=== PATIENT | male | born 1940 | race Caucasian/White ===

== ENCOUNTER → 2018-02-26 | Outpatient (CLI) | payer MEDICARE ==
--- NOTE | 2018-03-02 16:10 | RADIOLOGY REPORT ---
NAME: [facility] REC#: [id number] PT STATUS: REG CLI : 1940 PHYSICIAN: LUPE WHITING MD ADMIT DATE: 02/26/18/RAD CORRECTED Signed Date of Exam:02/26/18 US VENOUS LOWER EXT RT PROCEDURE: US right lower extremity venous. TECHNIQUE: Multiple Real-time grayscale images were obtained over the right lower extremity in various projections. Additional duplex Doppler and color Doppler images were also obtained. INDICATION: Positive D-dimer and right lower extremity swelling. FINDINGS: There is no evidence of a right lower extremity DVT. The right lower extremity deep venous system demonstrates normal compressibility with normal response to augmentation and Valsalva. No fluid collection or mass is seen. IMPRESSION: No evidence of right lower extremity DVT. Dictated by: Dictated on workstation # [id number] Dict: 02/26/18 1210 Trans: 02/26/18 1547 [id number] Interpreted by: MARINO MONTES DE OCA MD Electronically signed by: MARINO MONTES DE OCA MD 02/26/18 1547 [facility]
== END ==
LOC: RAD 11:18
PROVIDERS: ATTEND Family Medicine
DX: R22.41 Localized swelling, mass and lump, right lower limb (principal); R79.1 Abnormal coagulation profile

== ENCOUNTER 2018-07-09 13:44 | Outpatient (RCR) | payer MEDICARE | END 2018-08-02 | disposition home or self-care (01) | LOC: DSME 13:44 | PROVIDERS: ATTEND Internal Medicine Endocrinology, Diabetes & Metabolism | DX: E11.65 Type 2 diabetes mellitus with hyperglycemia (principal) ==

== ENCOUNTER 2018-08-09 10:38 | Emergency (ER) | payer MEDICARE ==
[~2018-08-09] VITALS: Ht 175.3 cm; Wt 117.9 kg
--- OUTSIDE RECORDS SUMMARY | 2018-08-09 10:43 | XMS REPORT ---
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 Name Role Phone KESHIA MARSHALL Unavailable PROBLEMS Unknown Problems ALLERGIES Substance Reaction Event Type Date Status Sulfacetamide Sodium Unknown Drug Allergy Oct, Active ENCOUNTERS Encounter Location Date Diagnosis [facility]ALK IN [facility] [address] [facility] [id number] [address] Oct, Cough R05 ; Pneumonia of right lower lobe due to infectious organism J18.1 and BMI 40.0-44.9, adult Z68.41 IMMUNIZATIONS No Known Immunizations SOCIAL HISTORY Never Assessed REASON FOR VISIT Cold symptoms- productive clear cough, head/chest congestion, and clear nasal drainage x 1 week. KBoleRN PLAN OF CARE Activity Details Follow Up prn Reason: VITAL SIGNS Height 66 in 2017-10-14 Weight 264.4 lbs 2017-10-14 Temperature 98.6 degrees Fahrenheit 2017-10-14 Heart Rate 108 bpm 2017-10-14 Respiratory Rate 20 2017-10-14 BMI 42.67 kg/m2 2017-10-14 Blood pressure systolic 158 mmHg 2017-10-14 Blood pressure diastolic 82 mmHg 2017-10-14 MEDICATIONS Medication Instructions Dosage Frequency Start Date End Date Duration Status Azithromycin 250 MG Orally Once a day 2 tablets on the first day, then 1 tablet daily for 4 days 24h Oct, Oct, 5 day(s) Active ProAir HFA 108 (90 Base) MCG/ACT Inhalation every 6 hrs 2 puffs as needed 6h Oct, 5 days Active Tessalon Perles 100 MG Orally Three times a day 1 capsule as needed 8h Oct, Oct, 10 days Active Lasix 20 MG Orally Once a day 1 tablet 24h Active Toprol XL 100 MG Orally Once a day 1 tablet 24h Active Spironolactone 25 MG Orally Once a day 1 tablet with food 24h Active Levemir Flexpen 100 UNIT/ML Active RESULTS Name Result Date Reference Range Xray : Chest (IN HOUSE) 2017-10-14 PROCEDURES Procedure Date Ordered Result Body Site CHEST X-RAY Oct 14, 2017 FOR[facility] VISIT NEW PATIENT Oct 14, 2017 INSTRUCTIONS MEDICATIONS ADMINISTERED No Known Medications MEDICAL (GENERAL) HISTORY Type Description Date Medical History hypertension Medical History type II diabetes Hospitalization History hypertension
[2018-08-09 11:18] LABS: BILIRUBIN,URINE NEGATIVE (NEGATIVE); CLARITY,URINE CLEAR; COLOR,URINE YELLOW; GLUCOSE, URINE (UA) NEGATIVE (NEGATIVE); KETONES,URINE NEGATIVE (NEGATIVE); LEUKOCYTE ESTERASE ,URINE 2+ (NEGATIVE); NITRITE,URINE NEGATIVE (NEGATIVE); PH,URINE 6 (5-9); PROTEIN,URINE 2+ (NEGATIVE); UROBILINOGEN,URINE NORMAL (NORMAL)
[2018-08-09 11:23] LABS: BACTERIA,URINE TRACE /HPF
[2018-08-09 11:36] LABS: BASOPHILS % (AUTO) 0 % (0-10); EOSINOPHILS # (AUTO) 0.2 10^3/uL (0.0-0.3); EOSINOPHILS % (AUTO) 2 % (0-10); HEMATOCRIT 45 % (40-54); HEMOGLOBIN 15.1 G/DL (13.3-17.7); LYMPHOCYTES # (AUTO) 1.8 X 10^3 (1.0-4.0); LYMPHOCYTES % (AUTO) 23 % (12-44); MEAN CORPUSCULAR HEMOGLOBIN 30 PG (25-34); MEAN CORPUSCULAR HGB CONC 33 G/DL (32-36); MEAN CORPUSCULAR VOLUME 89 FL (80-99); MEAN PLATELET VOLUME 10.1 FL (7.4-10.4); MONOCYTES % (AUTO) 12 % (0-12); NEUTROPHILS # (AUTO) 4.9 X 10^3 (1.8-7.8); NEUTROPHILS % (AUTO) 62 % (42-75); PLATELET COUNT 258 10^3/uL (130-400); RED BLOOD COUNT 5.07 10^6/uL (4.35-5.85); RED CELL DISTRIBUTION WIDTH 13.8 % (10.0-14.5); WHITE BLOOD COUNT 7.8 10^3/uL (4.3-11.0)
[2018-08-09 11:58] LABS: ALBUMIN 3.7 GM/DL (3.2-4.5); BILIRUBIN,TOTAL 0.5 MG/DL (0.1-1.0); CREATININE SERUM 1.65 MG/DL (0.60-1.30); POTASSIUM 3.9 MMOL/L (3.6-5.0); TOTAL PROTEIN 7.6 GM/DL (6.4-8.2)
--- NOTE | 2018-08-09 12:52 | ED General ---
General Chief Complaint: Glucose Problems Stated Complaint: GLUCOSE LEVEL LOW Nursing Triage Note: Pt c/o glucose problems this am. Pt states pt took 20 units of insulin this am and didn't eat enough breakfast. Pt states pt ate toast and oatmeal for breakfast. Pt then ate two donuts and ate ice cream and c/o blood sugar dropping. Tech took BS in waiting room. BS was 102 at that time. Pt's BS during assessment was 118. Nursing Sepsis Screen: No Definite Risk Source of Information: Patient Exam Limitations: No Limitations History of Present Illness Date Seen by Provider: Aug 09, 2018 Time Seen by Provider: 11:10 Initial Comments Patient is a 77-year-old male who presents to the emergency room with complaints of low blood sugars this morning. He is asymptomatic with his hypoglycemia. He took his normal dose of 20 units of insulin this a.m. and thinks he did not eat enough breakfast. Patient reports eating toast, oatmeal, ice cream, donuts and in an attempt to keep his blood sugars form dropping. Blood glucose was 102 on arrival to ED. Timing/Duration: 1-3 Hours Associated Systoms: Denies Symptoms Allergies and Home Medications Allergies Uncoded Allergies: SULFA (Allergy, Unknown, 08/09/18) Patient Home Medication List Home Medication List Reviewed: Yes Review of Systems Review of Systems Constitutional: see HPI; No chills, No fever Hematologic/Lymphatic: See HPI, Other (low blood sugars.) All Other Systems Reviewed Negative Unless Noted: Yes Past Mtlilvk-Fnaooy-Gfiqtu Hx Past Med/Social Hx: Reviewed Nursing Past Med/Soc Hx Patient Social History Alcohol Use: Denies Use Recreational Drug Use: No Recent Foreign Travel: No Contact w/Someone Who Travel: No Recent Infectious Disease Expo: No Recent Hopitalizations: No Physical Abuse: No Sexual Abuse: No Seasonal Allergies Seasonal Allergies: No Past Medical History Respiratory: No Cardiac: No Neurological: No Genitourinary: No Gastrointestinal: No Musculoskeletal: No Endocrine: Yes Diabetes, Insulin dep HEENT: No Cancer: No Psychosocial: No Integumentary: No Blood Disorders: No Family Medical History Reviewed Nursing Family Hx Physical Exam Vital Signs Vital Signs - First Documented 08/09/18 11:03 Temp 98.2 Pulse 91 Resp 18 B/P (MAP) 170/84 (112) Pulse Ox 95 O2 Delivery Room Air Capillary Refill : Less Than 3 Seconds Height, Weight, BMI Height: 5'9.00" Weight: 260lbs. oz. 117.427660ow; BMI Method:Stated General Appearance: No Apparent Distress, WD/WN Eyes: Bilateral Eye Normal Inspection, Bilateral Eye PERRL, Bilateral Eye EOMI HEENT: PERRL/EOMI, TMs Normal, Normal ENT Inspection, Pharynx Normal Neck: Full Range of Motion, Normal Inspection, Non Tender, Supple, Carotid Bruit Respiratory: Chest Non Tender, Lungs Clear, Normal Breath Sounds, No Accessory Muscle Use, No Respiratory Distress Cardiovascular: Regular Rate, Rhythm, No Edema, No Gallop, No JVD, No Murmur, Normal Peripheral Pulses Neurologic/Psychiatric: Alert, Oriented x3, Normal Mood/Affect Skin: Normal Color, Warm/Dry Progress/Results/Core Measures Suspected Sepsis Recent Fever Within 48 Hours: No Infection Criteria Present: None New/Unexplained Altered Menta: No Sepsis Screen: No Definite Risk SIRS Temperature:98.2 Pulse: 91 Respiratory Rate: 18 Laboratory Tests 08/09/18 11:25: White Blood Count 7.8 Blood Pressure 170 /84 Mean: 112 Laboratory Tests 08/09/18 11:25: Creatinine 1.65H, Platelet Count 258, Total Bilirubin 0.5 Results/Orders Lab Results Laboratory Tests Test 08/09/18 10:46 08/09/18 11:04 08/09/18 11:13 08/09/18 11:25 Range/Units Glucometer 102 118 H 70-110 MG/DL Urine Color YELLOW Urine Clarity CLEAR Urine pH 6 5-9 Urine Specific [place] 1.015 L 1.016-1.022 Urine Protein 2+ H NEGATIVE Urine Glucose (UA) NEGATIVE NEGATIVE Urine Ketones NEGATIVE NEGATIVE Urine Nitrite NEGATIVE NEGATIVE Urine Bilirubin NEGATIVE NEGATIVE Urine Urobilinogen NORMAL NORMAL MG/DL Urine Leukocyte Esterase 2+ H NEGATIVE Urine RBC (Auto) 2+ H NEGATIVE Urine RBC NONE /HPF Urine WBC 2-5 /HPF Urine Squamous Epithelial Cells 2-5 /HPF Urine Crystals NONE /LPF Urine Bacteria TRACE /HPF Urine Casts NONE /LPF Urine Mucus NEGATIVE /LPF Urine Culture Indicated NO White Blood Count 7.8 4.3-11.0 10^3/uL Red Blood Count 5.07 4.35-5.85 10^6/uL Hemoglobin 15.1 13.3-17.7 G/DL Hematocrit 45 40-54 % Mean Corpuscular Volume 89 80-99 FL Mean Corpuscular Hemoglobin 30 25-34 PG Mean Corpuscular Hemoglobin Concent 33 32-36 G/DL Red Cell Distribution Width 13.8 10.0-14.5 % Platelet Count 258 130-400 10^3/uL Mean Platelet Volume 10.1 7.4-10.4 FL Neutrophils (%) (Auto) 62 42-75 % Lymphocytes (%) (Auto) 23 12-44 % Monocytes (%) (Auto) 12 0-12 % Eosinophils (%) (Auto) 2 0-10 % Basophils (%) (Auto) 0 0-10 % Neutrophils # (Auto) 4.9 1.8-7.8 X 10^3 Lymphocytes # (Auto) 1.8 1.0-4.0 X 10^3 Monocytes # (Auto) 1.0 0.0-1.0 X 10^3 Eosinophils # (Auto) 0.2 0.0-0.3 10^3/uL Basophils # (Auto) 0.0 0.0-0.1 10^3/uL Sodium Level 140 135-145 MMOL/L Potassium Level 3.9 3.6-5.0 MMOL/L Chloride Level 107 98-107 MMOL/L Carbon Dioxide Level 22 21-32 MMOL/L Anion Gap 11 5-14 MMOL/L Blood Urea Nitrogen 22 H 7-18 MG/DL Creatinine 1.65 H 0.60-1.30 MG/DL Estimat Glomerular Filtration Rate 40 BUN/Creatinine Ratio 13 Glucose Level 115 H 70-105 MG/DL Calcium Level 9.0 8.5-10.1 MG/DL Corrected Calcium 9.2 8.5-10.1 MG/DL Total Bilirubin 0.5 0.1-1.0 MG/DL Aspartate Amino Transf (AST/SGOT) 21 5-34 U/L Alanine Aminotransferase (ALT/SGPT) 23 0-55 U/L Alkaline Phosphatase 79 40-136 U/L Total Protein 7.6 6.4-8.2 GM/DL Albumin 3.7 3.2-4.5 GM/DL Test 08/09/18 12:50 Range/Units Glucometer 115 H 70-110 MG/DL My Orders Orders - PATRICK ALVAREZ Comprehensive Metabolic Panel (08/09/18 11:12) Saline Lock/Iv-Start (08/09/18 11:12) Cbc With Automated Diff (08/09/18 11:12) General/Regular (08/09/18 Breakfast) Vital Signs/I&O 08/09/18 12:56 Temp 98.5 Pulse 91 Resp 18 B/P (MAP) 136/73 (94) Pulse Ox 94 O2 Delivery Room Air Capillary Refill : Less Than 3 Seconds Blood Pressure Mean: 112 Progress Note : Time: 12:50 Progress Note I have seen and evaluated the patient. I have informed him of normal laboratory findings. He was given a meal of high protein and instructed to eat meals with higher protein content and less carbohydrates. He is blood glucose is 115 currently and he remains asymptomatic. He agrees with plan of care, plans for discharge, return precautions were given. Departure Impression Primary Impression: Poorly controlled diabetes mellitus Disposition: HOME, SELF-CARE Condition: Stable/Unchanged Departure-Patient Inst. Decision time for Depature: 12:51 Referrals: LUPE WHITING MD (PCP) Primary Care Physician Patient Instructions: Diabetic Meal Planning Add. Discharge Instructions: Keep an eye on your blood sugars throughout the day and only take half of your lunchtime dose of insulin. Follow-up with your primary care provider within 1 week for recheck. Return back to the emergency room for any worsening symptoms or concerns as needed. All discharge instructions reviewed with patient and/or family. Voiced understanding. PATRICK ALVAREZ Aug 09, 2018 12:52
[2018-08-09 12:56] VITALS: BP 136/73
== END 2018-08-09 12:57 | disposition home or self-care (01) ==
LOC: EDUNIT# 10:38 → ER 10:40
DX: E11.649 Type 2 diabetes mellitus with hypoglycemia without coma (principal); Z88.2 Allergy status to sulfonamides
CPT/HCPCS: 36415; 80053; 81000; 82962; 85025

== ENCOUNTER 2018-10-01 06:00 | Outpatient (RCR) | payer MEDICARE | END 2018-10-07 | disposition home or self-care (01) | LOC: CR3 06:00 | PROVIDERS: ATTEND Family Medicine | DX: Z29.8 Encounter for other specified prophylactic measures (principal) ==

== ENCOUNTER 2018-10-15 14:43 | Emergency (ER) | payer MEDICARE ==
[~2018-10-15] VITALS: Ht 175.3 cm; Wt 117.9 kg
--- NOTE | 2018-10-15 15:00 | ED General ---
General Chief Complaint: Glucose Problems Stated Complaint: TOO MUCH INSULIN Nursing Triage Note: AMB TO ROOM THINKS MAY OF TAKEN T MUCH INSULIN FEELING OK ON ADMIT TO ROOM. TOOK EXTERA INSULIN TO GET BS DOWN BELOW 200 Nursing Sepsis Screen: No Definite Risk Source of Information: Patient Exam Limitations: No Limitations History of Present Illness Date Seen by Provider: Oct 15, 2018 Time Seen by Provider: 14:57 Initial Comments To ER with concerns of insulin overdose. He states that in today his blood sugar was "sticking around 300". He was trying to get it below 200. He initially took 15 units of NovoLog insulin at about noon. A piece of pizza, blood sugar did not go down. 30 minutes later roughly took 30 units. Blood sugar still did not go down so about an hour later at about 1-2 p.m. he took an additional 50 units of NovoLog insulin. He also takes Levemir 50 units at at bedtime. He follows with Dr. Lama in [place] from endocrinology. On arrival to ER blood sugar is 126 and he feels fine but he is concerned that he will bottom out. Timing/Duration: 1-2 Days Associated Systoms: Denies Symptoms; No Headaches, No Nausea/Vomiting Allergies and Home Medications Allergies Uncoded Allergies: SULFA (Allergy, Unknown, 08/09/18) Patient Home Medication List Home Medication List Reviewed: Yes Review of Systems Review of Systems Constitutional: see HPI; No diaphoresis EENTM: see HPI Respiratory: no symptoms reported Cardiovascular: no symptoms reported Genitourinary: no symptoms reported Musculoskeletal: no symptoms reported Skin: no symptoms reported Psychiatric/Neurological: No Symptoms Reported Hematologic/Lymphatic: No Symptoms Reported Past Horhuqo-Anbftr-Ocegin Hx Patient Social History Alcohol Use: Occasionally Uses Recreational Drug Use: No Smoking Status: Never a Smoker Recent Foreign Travel: No Contact w/Someone Who Travel: No Recent Infectious Disease Expo: No Recent Hopitalizations: No Seasonal Allergies Seasonal Allergies: No Past Medical History Respiratory: No Cardiac: No Neurological: No Genitourinary: No Gastrointestinal: No Musculoskeletal: No Endocrine: Yes Diabetes, Insulin dep HEENT: No Cancer: No Psychosocial: No Integumentary: No Blood Disorders: No Physical Exam Vital Signs Vital Signs - First Documented 10/15/18 14:45 Temp 96.6 Pulse 115 Resp 18 B/P (MAP) 130/68 (88) Pulse Ox 95 O2 Delivery Room Air Capillary Refill : Less Than 3 Seconds Height, Weight, BMI Height: 5'9.00" Weight: 260lbs. oz. 117.671681lb; BMI Method:Stated General Appearance: No Apparent Distress, WD/WN Eyes: Bilateral Eye Normal Inspection, Bilateral Eye PERRL, Bilateral Eye EOMI HEENT: PERRL/EOMI, TMs Normal Respiratory: No Accessory Muscle Use, No Respiratory Distress Cardiovascular: Regular Rate, Rhythm, Normal Peripheral Pulses Gastrointestinal: Non Tender, Soft Extremity: Normal Capillary Refill, Normal Inspection Neurologic/Psychiatric: Alert, Oriented x3 Skin: Normal Color, Warm/Dry Progress/Results/Core Measures Suspected Sepsis Recent Fever Within 48 Hours: No Infection Criteria Present: None New/Unexplained Altered Menta: No Sepsis Screen: No Definite Risk SIRS Temperature:96.6 Pulse: 115 Respiratory Rate: 18 Laboratory Tests 10/15/18 15:05: White Blood Count 9.6 Blood Pressure 130 /68 Mean: 88 Laboratory Tests 10/15/18 15:05: Creatinine 1.89H, Platelet Count 270 Results/Orders Lab Results Laboratory Tests Test 10/15/18 14:47 10/15/18 15:05 10/15/18 15:26 Range/Units Glucometer 123 H 159 H 70-110 MG/DL White Blood Count 9.6 4.3-11.0 10^3/uL Red Blood Count 5.26 4.35-5.85 10^6/uL Hemoglobin 15.4 13.3-17.7 G/DL Hematocrit 47 40-54 % Mean Corpuscular Volume 89 80-99 FL Mean Corpuscular Hemoglobin 29 25-34 PG Mean Corpuscular Hemoglobin Concent 33 32-36 G/DL Red Cell Distribution Width 13.1 10.0-14.5 % Platelet Count 270 130-400 10^3/uL Mean Platelet Volume 10.0 7.4-10.4 FL Neutrophils (%) (Auto) 60 42-75 % Lymphocytes (%) (Auto) 27 12-44 % Monocytes (%) (Auto) 11 0-12 % Eosinophils (%) (Auto) 2 0-10 % Basophils (%) (Auto) 0 0-10 % Neutrophils # (Auto) 5.8 1.8-7.8 X 10^3 Lymphocytes # (Auto) 2.5 1.0-4.0 X 10^3 Monocytes # (Auto) 1.1 H 0.0-1.0 X 10^3 Eosinophils # (Auto) 0.2 0.0-0.3 10^3/uL Basophils # (Auto) 0.0 0.0-0.1 10^3/uL Sodium Level 141 135-145 MMOL/L Potassium Level 3.8 3.6-5.0 MMOL/L Chloride Level 104 98-107 MMOL/L Carbon Dioxide Level 23 21-32 MMOL/L Anion Gap 14 5-14 MMOL/L Blood Urea Nitrogen 35 H 7-18 MG/DL Creatinine 1.89 H 0.60-1.30 MG/DL Estimat Glomerular Filtration Rate 34 BUN/Creatinine Ratio 19 Glucose Level 128 H 70-105 MG/DL Calcium Level 9.7 8.5-10.1 MG/DL My Orders Orders - CORTEZ CASTAÑEDA APRN Cbc With Automated Diff (10/15/18 14:57) Iv Heplock-Insert (Order) (10/15/18 14:57) Basic Metabolic Panel (10/15/18 14:57) Accucheck Stat ONCE (10/15/18 15:24) Vital Signs/I&O 10/15/18 14:45 Temp 96.6 Pulse 115 Resp 18 B/P (MAP) 130/68 (88) Pulse Ox 95 O2 Delivery Room Air Capillary Refill : Less Than 3 Seconds Blood Pressure Mean: 88 Departure Communication (Admissions) IV established in case he needs glucose IV, labs to be checked. We will monitor the glucose serially. The NovoLog reaches peak effect at 1-3 hours which would be between 2 and 5 PM. We will observe him and ensure that his sugar does not drop. Impression Primary Impression: History of hyperglycemia Disposition: HOME, SELF-CARE Condition: Stable Departure-Patient Inst. Decision time for Depature: 16:04 Referrals: LUPE WHITING MD (PCP/Family) Primary Care Physician Patient Instructions: Diabetes Type 2 (DC) Add. Discharge Instructions: 1. Keep your appointment with your rough carpenter tomorrow. Check your blood sugar about every hour for the rest of this evening until about 8 PM. All discharge instructions reviewed with patient and/or family. Voiced understanding. CORTEZ CASTAÑEDA APRN Oct 15, 2018 15:00
[2018-10-15 15:13] LABS: BASOPHILS % (AUTO) 0 % (0-10); EOSINOPHILS # (AUTO) 0.2 10^3/uL (0.0-0.3); EOSINOPHILS % (AUTO) 2 % (0-10); HEMATOCRIT 47 % (40-54); HEMOGLOBIN 15.4 G/DL (13.3-17.7); LYMPHOCYTES # (AUTO) 2.5 X 10^3 (1.0-4.0); LYMPHOCYTES % (AUTO) 27 % (12-44); MEAN CORPUSCULAR HEMOGLOBIN 29 PG (25-34); MEAN CORPUSCULAR HGB CONC 33 G/DL (32-36); MEAN CORPUSCULAR VOLUME 89 FL (80-99); MONOCYTES # (AUTO) 1.1 X 10^3 (0.0-1.0); MONOCYTES % (AUTO) 11 % (0-12); NEUTROPHILS # (AUTO) 5.8 X 10^3 (1.8-7.8); NEUTROPHILS % (AUTO) 60 % (42-75); PLATELET COUNT 270 10^3/uL (130-400); RED BLOOD COUNT 5.26 10^6/uL (4.35-5.85); RED CELL DISTRIBUTION WIDTH 13.1 % (10.0-14.5); WHITE BLOOD COUNT 9.6 10^3/uL (4.3-11.0)
[2018-10-15 15:31] LABS: CALCIUM 9.7 MG/DL (8.5-10.1); CREATININE SERUM 1.89 MG/DL (0.60-1.30); POTASSIUM 3.8 MMOL/L (3.6-5.0)
[2018-10-15 16:07] VITALS: BP 130/68
== END 2018-10-15 16:09 | disposition home or self-care (01) ==
LOC: EDUNIT# 14:43 → ER 14:44
DX: E11.65 Type 2 diabetes mellitus with hyperglycemia (principal); Z88.2 Allergy status to sulfonamides; Z79.4 Long term (current) use of insulin
CPT/HCPCS: 36415; 80048; 82962; 85025

== ENCOUNTER 2018-10-17 13:18 | Emergency (ER) | payer MEDICARE ==
[~2018-10-17] VITALS: Ht 175.3 cm; Wt 117.9 kg
[2018-10-17] MEDS ORDERED: inSUlin (REGULAR) HUMAN 1 UNIT/0.01 ML (CHARGE PER UNIT) IV ONE (14:00)
[2018-10-17] MEDS ORDERED: NS IV 500 ML 500 ML IV SCH (14:00)
--- NOTE | 2018-10-17 14:00 | ED General ---
General Stated Complaint: HIGH GLUCOSE Source of Information: Patient Exam Limitations: No Limitations History of Present Illness Date Seen by Provider: Oct 17, 2018 Time Seen by Provider: 13:57 Initial Comments To ER with concerns of hyperglycemia. He noticed his blood sugar to be increasing from 250-293 throughout the course of the day today despite not eating breakfast or lunch. He denies any symptoms but this elevated glucose concerns him greatly. He was seen here in the emergency room 2 days ago for concerns of an insulin overdose after he states that his blood sugar was high and he took insulin and thought maybe it was too much insulin. However, he believes that was just yesterday that he was here. He takes NovoLog 30 units at meals and starting today he began taking Levemir 40 units in the morning and 40 units in the evening. He follows with Dr. Lama in [place] Timing/Duration: Intermittent Associated Systoms: Denies Symptoms; No Chest Pain, No Cough, No Diaphoresis, No Fever/Chills, No Nausea/Vomiting Allergies and Home Medications Allergies Uncoded Allergies: SULFA (Allergy, Unknown, 08/09/18) Patient Home Medication List Home Medication List Reviewed: Yes Review of Systems Review of Systems Constitutional: see HPI EENTM: see HPI Respiratory: no symptoms reported Cardiovascular: no symptoms reported Genitourinary: no symptoms reported Musculoskeletal: no symptoms reported Skin: no symptoms reported Psychiatric/Neurological: No Symptoms Reported Hematologic/Lymphatic: No Symptoms Reported Past Ypagxdc-Czsiad-Fdvfpf Hx Patient Social History Recent Hopitalizations: No Seasonal Allergies Seasonal Allergies: No Past Medical History Respiratory: No Cardiac: No Neurological: No Genitourinary: No Gastrointestinal: No Musculoskeletal: No Endocrine: Yes Diabetes, Insulin dep HEENT: No Cancer: No Psychosocial: No Integumentary: No Blood Disorders: No Physical Exam Vital Signs Vital Signs - First Documented 10/17/18 13:48 Temp 98.0 Pulse 79 Resp 18 B/P (MAP) 169/101 (123) Pulse Ox 94 O2 Delivery Room Air Capillary Refill : Height, Weight, BMI Height: 5'9.00" Weight: 260lbs. oz. 117.987499ry; BMI Method:Stated General Appearance: No Apparent Distress, WD/WN Eyes: Bilateral Eye Normal Inspection, Bilateral Eye PERRL, Bilateral Eye EOMI HEENT: PERRL/EOMI, TMs Normal Neck: Full Range of Motion, Supple Respiratory: No Accessory Muscle Use, No Respiratory Distress Gastrointestinal: Non Tender, Soft Extremity: Normal Capillary Refill, Normal Inspection Neurologic/Psychiatric: Alert, Oriented x3, Other (believes he was here in the emergency room last night is advised that it was actually 2 days ago that he was here he states "I really, I guess I lost a day somewhere") Skin: Normal Color, Warm/Dry Progress/Results/Core Measures Suspected Sepsis SIRS Temperature: Pulse: Respiratory Rate: Laboratory Tests 10/17/18 14:02: White Blood Count 7.7 Blood Pressure / Mean: Laboratory Tests 10/17/18 14:02: Creatinine 1.78H, Platelet Count 231, Total Bilirubin 0.8 Results/Orders Lab Results Laboratory Tests Test 10/17/18 13:52 10/17/18 14:02 10/17/18 15:04 10/17/18 15:07 Range/Units Glucometer 298 H 228 H 70-110 MG/DL White Blood Count 7.7 4.3-11.0 10^3/uL Red Blood Count 4.88 4.35-5.85 10^6/uL Hemoglobin 14.3 13.3-17.7 G/DL Hematocrit 43 40-54 % Mean Corpuscular Volume 89 80-99 FL Mean Corpuscular Hemoglobin 29 25-34 PG Mean Corpuscular Hemoglobin Concent 33 32-36 G/DL Red Cell Distribution Width 13.3 10.0-14.5 % Platelet Count 231 130-400 10^3/uL Mean Platelet Volume 10.6 H 7.4-10.4 FL Neutrophils (%) (Auto) 65 42-75 % Lymphocytes (%) (Auto) 23 12-44 % Monocytes (%) (Auto) 10 0-12 % Eosinophils (%) (Auto) 2 0-10 % Basophils (%) (Auto) 0 0-10 % Neutrophils # (Auto) 5.0 1.8-7.8 X 10^3 Lymphocytes # (Auto) 1.7 1.0-4.0 X 10^3 Monocytes # (Auto) 0.7 0.0-1.0 X 10^3 Eosinophils # (Auto) 0.2 0.0-0.3 10^3/uL Basophils # (Auto) 0.0 0.0-0.1 10^3/uL Sodium Level 136 135-145 MMOL/L Potassium Level 4.1 3.6-5.0 MMOL/L Chloride Level 102 98-107 MMOL/L Carbon Dioxide Level 21 21-32 MMOL/L Anion Gap 13 5-14 MMOL/L Blood Urea Nitrogen 34 H 7-18 MG/DL Creatinine 1.78 H 0.60-1.30 MG/DL Estimat Glomerular Filtration Rate 37 BUN/Creatinine Ratio 19 Glucose Level 315 H 70-105 MG/DL Calcium Level 8.8 8.5-10.1 MG/DL Corrected Calcium 9.0 8.5-10.1 MG/DL Total Bilirubin 0.8 0.1-1.0 MG/DL Aspartate Amino Transf (AST/SGOT) 15 5-34 U/L Alanine Aminotransferase (ALT/SGPT) 13 0-55 U/L Alkaline Phosphatase 84 40-136 U/L Total Protein 7.5 6.4-8.2 GM/DL Albumin 3.7 3.2-4.5 GM/DL Urine Color YELLOW Urine Clarity CLEAR Urine pH 5 5-9 Urine Specific [place] 1.010 L 1.016-1.022 Urine Protein 1+ H NEGATIVE Urine Glucose (UA) 3+ H NEGATIVE Urine Ketones NEGATIVE NEGATIVE Urine Nitrite NEGATIVE NEGATIVE Urine Bilirubin NEGATIVE NEGATIVE Urine Urobilinogen NORMAL NORMAL MG/DL Urine Leukocyte Esterase NEGATIVE NEGATIVE Urine RBC (Auto) 1+ H NEGATIVE Urine RBC NONE /HPF Urine WBC RARE /HPF Urine Crystals NONE /LPF Urine Bacteria TRACE /HPF Urine Casts NONE /LPF Urine Mucus NEGATIVE /LPF Urine Culture Indicated NO My Orders Orders - CORTEZ CASTAÑEDA APRN Ns Iv 500 Ml (Sodium Chloride 0.9%) (10/17/18 14:00) Insulin (Regular) Human (Humulin R (Per (10/17/18 14:00) Cbc With Automated Diff (10/17/18 13:55) Comprehensive Metabolic Panel (10/17/18 13:55) Ua Culture If Indicated (10/17/18 13:55) Medications Given in ED Current Medications Medications Dose Ordered Sig/Laya Route Start Time Stop Time Status Last Admin Dose Admin Insulin Human Regular 8 unit ONCE ONCE IV 10/17/18 14:00 10/17/18 14:01 DC 10/17/18 14:15 8 UNIT Vital Signs/I&O 10/17/18 13:48 Temp 98.0 Pulse 79 Resp 18 B/P (MAP) 169/101 (123) Pulse Ox 94 O2 Delivery Room Air Capillary Refill : Departure Impression Primary Impression: Diabetes Qualified Codes: E11.8 - Type 2 diabetes mellitus with unspecified complications; Z79.4 - penitentiary (current) use of insulin Disposition: HOME, SELF-CARE Condition: Stable Departure-Patient Inst. Decision time for Depature: 14:00 Referrals: LUPE WHITING MD (PCP/Family) Primary Care Physician Patient Instructions: Diabetes Type 2 (DC) Add. Discharge Instructions: Continue your current insulin regimen. Return to ER for any concerns. CORTEZ CASTAÑEDA AUDITOR/QUALITY Oct 17, 2018 14:00
[2018-10-17 14:11] LABS: BASOPHILS % (AUTO) 0 % (0-10); EOSINOPHILS # (AUTO) 0.2 10^3/uL (0.0-0.3); EOSINOPHILS % (AUTO) 2 % (0-10); HEMATOCRIT 43 % (40-54); HEMOGLOBIN 14.3 G/DL (13.3-17.7); LYMPHOCYTES # (AUTO) 1.7 X 10^3 (1.0-4.0); LYMPHOCYTES % (AUTO) 23 % (12-44); MEAN CORPUSCULAR HEMOGLOBIN 29 PG (25-34); MEAN CORPUSCULAR HGB CONC 33 G/DL (32-36); MEAN CORPUSCULAR VOLUME 89 FL (80-99); MEAN PLATELET VOLUME 10.6 FL (7.4-10.4); MONOCYTES # (AUTO) 0.7 X 10^3 (0.0-1.0); MONOCYTES % (AUTO) 10 % (0-12); NEUTROPHILS % (AUTO) 65 % (42-75); PLATELET COUNT 231 10^3/uL (130-400); RED BLOOD COUNT 4.88 10^6/uL (4.35-5.85); RED CELL DISTRIBUTION WIDTH 13.3 % (10.0-14.5); WHITE BLOOD COUNT 7.7 10^3/uL (4.3-11.0)
[2018-10-17] MEDS ORDERED: INSULIN (14:27)
[2018-10-17] MEDS ORDERED: METO-395 (14:27)
[2018-10-17] MEDS ORDERED: CLON0.2T (14:27)
[2018-10-17] MEDS ORDERED: FURO40TA4 (14:27)
[2018-10-17 14:33] LABS: ALBUMIN 3.7 GM/DL (3.2-4.5); BILIRUBIN,TOTAL 0.8 MG/DL (0.1-1.0); CALCIUM 8.8 MG/DL (8.5-10.1); CREATININE SERUM 1.78 MG/DL (0.60-1.30); POTASSIUM 4.1 MMOL/L (3.6-5.0); TOTAL PROTEIN 7.5 GM/DL (6.4-8.2)
[2018-10-17 15:09] LABS: BILIRUBIN,URINE NEGATIVE (NEGATIVE); CLARITY,URINE CLEAR; COLOR,URINE YELLOW; GLUCOSE, URINE (UA) 3+ (NEGATIVE); KETONES,URINE NEGATIVE (NEGATIVE); LEUKOCYTE ESTERASE ,URINE NEGATIVE (NEGATIVE); NITRITE,URINE NEGATIVE (NEGATIVE); PH,URINE 5 (5-9); PROTEIN,URINE 1+ (NEGATIVE); UROBILINOGEN,URINE NORMAL (NORMAL)
[2018-10-17 15:18] LABS: BACTERIA,URINE TRACE /HPF; WBC,URINE RARE /HPF
[2018-10-17 15:37] VITALS: BP 142/86
== END 2018-10-17 15:36 | disposition home or self-care (01) ==
LOC: EDUNIT# 13:18 → ER 13:19
DX: E11.65 Type 2 diabetes mellitus with hyperglycemia (principal); Z88.2 Allergy status to sulfonamides; Z79.4 Long term (current) use of insulin
CPT/HCPCS: 36415; 80053; 81000; 82962; 85025

== ENCOUNTER 2018-11-04 12:15 | Emergency (ER) | payer MEDICARE ==
[~2018-11-04] VITALS: Ht 175.3 cm; Wt 113.4 kg
[~2018-11-04 12:15] MED LIST: CLON0.2T; FURO40TA4; INSULIN; METO-395
--- OUTSIDE RECORDS SUMMARY | 2018-11-04 12:20 | XMS REPORT ---
Author Author YASSINE VENEGAS [facility] Address [address] [place] [address] Care Team Providers Care Mold Yard Worker Name Role Phone YASSINE VENEGAS Unavailable PROBLEMS Unknown Problems ALLERGIES No Information ENCOUNTERS Encounter Location Date Diagnosis [facility] WALK [facility] [address] [facility] [id number] [address] Oct, [facility] [address] [facility] [id number] [address] Oct, Cough R05 ; Pneumonia of right lower lobe due to infectious organism J18.1 and BMI 40.0-44.9, adult Z68.41 IMMUNIZATIONS No Known Immunizations SOCIAL HISTORY Never Assessed REASON FOR VISIT Triage JStrasserRN PLAN OF CARE VITAL SIGNS MEDICATIONS Unknown Medications RESULTS No Results PROCEDURES No Known procedures INSTRUCTIONS MEDICATIONS ADMINISTERED No Known Medications MEDICAL (GENERAL) HISTORY Type Description Date Medical History hypertension Medical History type II diabetes Hospitalization History hypertension
[2018-11-04] MEDS ORDERED: DULA0.75 SQ (12:36)
--- NOTE | 2018-11-04 12:42 | ED General ---
General Chief Complaint: Glucose Problems Stated Complaint: BLOOD SUGAR PROBLEMS Nursing Triage Note: pt presents to ed with complaints of blood sugar concerns after taking first dose of trulisity. pt reports he usually runs in the 200-210. pt states he did not eat breakfast and took his blood sugar after taking his meal and his latest blood sugar was 145. pt concerned it may get too low. pt denies any s/s. Reports "i feel fine" Nursing Sepsis Screen: No Definite Risk Source of Information: Patient Exam Limitations: No Limitations History of Present Illness Date Seen by Provider: Nov 04, 2018 Time Seen by Provider: 12:26 Initial Comments Here with report of concerns about blood sugar. He started Trulicity injection this morning. Noted blood sugar had gone from the 200s down to 140s and 130s. Normally it will go down and then come back up to 200. He is concerned that it' s can continue to [place] down and be a problem so he came here for evaluation. Blood sugar seen to be staying in the range of 130-140 currently. He did take his normal insulin dosing with breakfast this morning and did take his normally primary dosing. Denies nausea, vomiting, diarrhea, problems going to the bathroom or eating. Timing/Duration: 1-3 Hours Severity: Mild Associated Systoms: No Chest Pain, No Fever/Chills, No Shortness of Air, No Weakness Allergies and Home Medications Allergies Uncoded Allergies: SULFA (Allergy, Unknown, 08/09/18) Patient Home Medication List Home Medication List Reviewed: Yes Review of Systems Review of Systems Constitutional: see HPI; No chills, No fever EENTM: no symptoms reported Respiratory: no symptoms reported Cardiovascular: no symptoms reported Gastrointestinal: no symptoms reported Genitourinary: no symptoms reported Musculoskeletal: no symptoms reported Psychiatric/Neurological: Anxiety; Denies Weakness Past Rpnezcy-Plhffd-Qhuczy Hx Past Med/Social Hx: Reviewed Nursing Past Med/Soc Hx Patient Social History Alcohol Use: Denies Use Recreational Drug Use: No Smoking Status: Never a Smoker Recent Foreign Travel: No Contact w/Someone Who Travel: No Recent Infectious Disease Expo: No Recent Hopitalizations: No Physical Abuse: No Sexual Abuse: No Mistreated: No Fear: No Seasonal Allergies Seasonal Allergies: No Past Medical History Surgeries: No Respiratory: No Cardiac: No Neurological: No Genitourinary: No Gastrointestinal: No Musculoskeletal: No Endocrine: Yes Diabetes, Insulin dep HEENT: No Cancer: No Psychosocial: No Integumentary: No Blood Disorders: No Family Medical History Reviewed Nursing Family Hx Physical Exam Vital Signs Vital Signs - First Documented 11/04/18 12:29 Temp 98.1 Pulse 83 Resp 20 B/P (MAP) 141/75 (97) Pulse Ox 97 Capillary Refill : Less Than 3 Seconds Height, Weight, BMI Height: 5'9.00" Weight: 250lbs. oz. 113.586719xh; BMI Method:Stated General Appearance: No Apparent Distress, WD/WN HEENT: PERRL/EOMI, Pharynx Normal Neck: Non Tender, Supple Respiratory: Lungs Clear, Normal Breath Sounds Cardiovascular: Regular Rate, Rhythm, No Murmur Gastrointestinal: Non Tender, Soft Extremity: Normal Range of Motion, Non Tender Neurologic/Psychiatric: Alert, Oriented x3 Skin: Normal Color, Warm/Dry Progress/Results/Core Measures Suspected Sepsis Recent Fever Within 48 Hours: No Infection Criteria Present: None New/Unexplained Altered Menta: No Sepsis Screen: No Definite Risk SIRS Temperature:98.1 Pulse: 83 Respiratory Rate: 20 Blood Pressure 141 /75 Mean: 97 Results/Orders Lab Results Laboratory Tests Test 11/04/18 12:27 Range/Units Glucometer 130 H 70-110 MG/DL My Orders Orders - SHARON CROW MD General/Regular (11/04/18 Lunch) Vital Signs/I&O 11/04/18 12:29 Temp 98.1 Pulse 83 Resp 20 B/P (MAP) 141/75 (97) Pulse Ox 97 Capillary Refill : Less Than 3 Seconds Blood Pressure Mean: 97 Point of Care Testing Finger Stick Blood Glucose: 130 Progress Note : Progress Note Seen and evaluated. Fingerstick blood sugar 131. Diet ordered. Reassurance done. 1410: Overall feeling much better. Discharged home with return precautions. Patient verbalize understanding instructions and agreement with plan. Departure Impression Primary Impression: Diabetes mellitus Qualified Codes: E11.9 - Type 2 diabetes mellitus without complications; Z79.4 - [facility] (current) use of insulin Disposition: HOME, SELF-CARE Condition: Improved Departure-Patient Inst. Decision time for Depature: 12:41 Referrals: LUPE WHITING MD (PCP/Family) Primary Care Physician Patient Instructions: Diabetes Type 2 (DC) Add. Discharge Instructions: All discharge instructions reviewed with patient and/or family. Voiced understanding. Call your attorney law clerk for further instructions. Monitor your blood sugars. If your blood sugars approach 100 or below, go ahead and eat a snack. If you' re feeling weak from her blood sugars very lower, eat a snack. Return for worse pain, fever, vomiting, weakness, rhythm problems or other concerns as needed. SHARNO CROW MD Nov 04, 2018 12:42
[2018-11-04 14:20] VITALS: BP 115/80
== END 2018-11-04 14:20 | disposition home or self-care (01) ==
LOC: EDUNIT# 12:15 → ER 12:16
DX: E11.649 Type 2 diabetes mellitus with hypoglycemia without coma (principal); Z88.2 Allergy status to sulfonamides
CPT/HCPCS: 82962

== ENCOUNTER 2018-11-06 09:00 | Outpatient (RCR) | payer MEDICARE ==
[~2018-11-06 09:00] MED LIST changes: +DULA0.75 SQ
== END 2018-12-06 | disposition home or self-care (01) ==
LOC: CR3 09:00
PROVIDERS: ATTEND Family Medicine
DX: Z29.8 Encounter for other specified prophylactic measures (principal)

== ENCOUNTER 2018-11-07 19:06 | Emergency (ER) | payer MEDICARE ==
[~2018-11-07] VITALS: Ht 175.3 cm; Wt 113.4 kg
--- NOTE | 2018-11-07 19:55 | NUR ---
Pt starte Trulicity and took his 75 unit injection Friday. He seems very anxious about how low his BS is getting. Pt does have a monitor that monitors his BS and will alarm him when his blood sugar is below 80. Pt state he is worried about it getting below 80 and not hearing it at night, with him being home by himself. Pt stated he has been eating foods such as pancakes to see if his blood sugar will stay high. Pt no longer takes insulin.
[2018-11-07 19:59] LABS: BASOPHILS % (AUTO) 0 % (0-10); EOSINOPHILS # (AUTO) 0.2 10^3/uL (0.0-0.3); EOSINOPHILS % (AUTO) 2 % (0-10); HEMATOCRIT 44 % (40-54); HEMOGLOBIN 14.2 G/DL (13.3-17.7); LYMPHOCYTES # (AUTO) 2.2 X 10^3 (1.0-4.0); LYMPHOCYTES % (AUTO) 24 % (12-44); MEAN CORPUSCULAR HEMOGLOBIN 30 PG (25-34); MEAN CORPUSCULAR HGB CONC 33 G/DL (32-36); MEAN CORPUSCULAR VOLUME 91 FL (80-99); MEAN PLATELET VOLUME 10.2 FL (7.4-10.4); MONOCYTES # (AUTO) 1.1 X 10^3 (0.0-1.0); MONOCYTES % (AUTO) 11 % (0-12); NEUTROPHILS # (AUTO) 6.1 X 10^3 (1.8-7.8); NEUTROPHILS % (AUTO) 64 % (42-75); PLATELET COUNT 272 10^3/uL (130-400); RED BLOOD COUNT 4.79 10^6/uL (4.35-5.85); RED CELL DISTRIBUTION WIDTH 13.5 % (10.0-14.5); WHITE BLOOD COUNT 9.5 10^3/uL (4.3-11.0)
[2018-11-07 20:03] LABS: BILIRUBIN,URINE NEGATIVE (NEGATIVE); CLARITY,URINE SLIGHTLY CLOUDY; COLOR,URINE YELLOW; GLUCOSE, URINE (UA) NEGATIVE (NEGATIVE); KETONES,URINE NEGATIVE (NEGATIVE); LEUKOCYTE ESTERASE ,URINE 1+ (NEGATIVE); NITRITE,URINE NEGATIVE (NEGATIVE); PH,URINE 5 (5-9); PROTEIN,URINE 1+ (NEGATIVE); UROBILINOGEN,URINE NORMAL (NORMAL)
[2018-11-07 20:08] LABS: BACTERIA,URINE TRACE /HPF
[2018-11-07 20:18] LABS: ALBUMIN 3.7 GM/DL (3.2-4.5); BILIRUBIN,TOTAL 0.4 MG/DL (0.1-1.0); CALCIUM 8.9 MG/DL (8.5-10.1); CREATININE SERUM 1.92 MG/DL (0.60-1.30); POTASSIUM 4.7 MMOL/L (3.6-5.0); TOTAL PROTEIN 7.5 GM/DL (6.4-8.2)
--- NOTE | 2018-11-07 21:20 | ED General ---
General Chief Complaint: Glucose Problems Stated Complaint: BLOOD SUGARS TROUBLE Nursing Triage Note: PT JUST STARTED TRULICITY WEEKLY ET HE IS CONCERNED HIS GLUCOSE IS DROPPING ET HE CANT STOP IT. PT HAS A MONITOR THAT HE CHECKS HIS SUGAR WITH. Nursing Sepsis Screen: No Definite Risk Source of Information: Patient Exam Limitations: No Limitations History of Present Illness Date Seen by Provider: Nov 07, 2018 Time Seen by Provider: 19:43 Allergies and Home Medications Allergies Uncoded Allergies: SULFA (Allergy, Unknown, 08/09/18) Past Qqtdbcj-Anxnir-Yemzte Hx Patient Social History Alcohol Use: Denies Use Recreational Drug Use: No Smoking Status: Never a Smoker 2nd Hand Smoke Exposure: No Recent Foreign Travel: No Contact w/Someone Who Travel: No Recent Infectious Disease Expo: No Recent Hopitalizations: No Physical Abuse: No Sexual Abuse: No Mistreated: No Fear: No Seasonal Allergies Seasonal Allergies: No Past Medical History Surgeries: No Respiratory: No Cardiac: No Neurological: No Genitourinary: Yes (stage 3 kidney disease) Gastrointestinal: No Musculoskeletal: No Endocrine: Yes Diabetes, Insulin dep HEENT: No Cancer: No Psychosocial: No Integumentary: No Blood Disorders: No Physical Exam Vital Signs Vital Signs - First Documented 11/07/18 11/07/18 19:20 21:37 Temp 97.4 Pulse 89 Resp 18 B/P (MAP) 150/91 (110) Pulse Ox 97 O2 Delivery Room Air Capillary Refill : Less Than 3 Seconds Height, Weight, BMI Height: 5'9.00" Weight: 250lbs. oz. 113.169245ya; BMI Method:Stated Progress/Results/Core Measures Suspected Sepsis Recent Fever Within 48 Hours: No Infection Criteria Present: None New/Unexplained Altered Menta: No Sepsis Screen: No Definite Risk SIRS Temperature:97.4 Pulse: 89 Respiratory Rate: 18 Laboratory Tests 11/07/18 19:52: White Blood Count 9.5 Blood Pressure 150 /91 Mean: 110 Laboratory Tests 11/07/18 19:52: Creatinine 1.92H, Platelet Count 272, Total Bilirubin 0.4 Results/Orders Lab Results Laboratory Tests Test 11/07/18 19:31 11/07/18 19:52 11/07/18 19:55 11/07/18 20:42 Range/Units Glucometer 201 H 158 H 70-110 MG/DL White Blood Count 9.5 4.3-11.0 10^3/uL Red Blood Count 4.79 4.35-5.85 10^6/uL Hemoglobin 14.2 13.3-17.7 G/DL Hematocrit 44 40-54 % Mean Corpuscular Volume 91 80-99 FL Mean Corpuscular Hemoglobin 30 25-34 PG Mean Corpuscular Hemoglobin Concent 33 32-36 G/DL Red Cell Distribution Width 13.5 10.0-14.5 % Platelet Count 272 130-400 10^3/uL Mean Platelet Volume 10.2 7.4-10.4 FL Neutrophils (%) (Auto) 64 42-75 % Lymphocytes (%) (Auto) 24 12-44 % Monocytes (%) (Auto) 11 0-12 % Eosinophils (%) (Auto) 2 0-10 % Basophils (%) (Auto) 0 0-10 % Neutrophils # (Auto) 6.1 1.8-7.8 X 10^3 Lymphocytes # (Auto) 2.2 1.0-4.0 X 10^3 Monocytes # (Auto) 1.1 H 0.0-1.0 X 10^3 Eosinophils # (Auto) 0.2 0.0-0.3 10^3/uL Basophils # (Auto) 0.0 0.0-0.1 10^3/uL Sodium Level 139 135-145 MMOL/L Potassium Level 4.7 3.6-5.0 MMOL/L Chloride Level 103 98-107 MMOL/L Carbon Dioxide Level 24 21-32 MMOL/L Anion Gap 12 5-14 MMOL/L Blood Urea Nitrogen 36 H 7-18 MG/DL Creatinine 1.92 H 0.60-1.30 MG/DL Estimat Glomerular Filtration Rate 34 BUN/Creatinine Ratio 19 Glucose Level 202 H 70-105 MG/DL Calcium Level 8.9 8.5-10.1 MG/DL Corrected Calcium 9.1 8.5-10.1 MG/DL Total Bilirubin 0.4 0.1-1.0 MG/DL Aspartate Amino Transf (AST/SGOT) 13 5-34 U/L Alanine Aminotransferase (ALT/SGPT) 7 0-55 U/L Alkaline Phosphatase 80 40-136 U/L Total Protein 7.5 6.4-8.2 GM/DL Albumin 3.7 3.2-4.5 GM/DL Urine Color YELLOW Urine Clarity SLIGHTLY CLOUDY Urine pH 5 5-9 Urine Specific [place] 1.020 1.016-1.022 Urine Protein 1+ H NEGATIVE Urine Glucose (UA) NEGATIVE NEGATIVE Urine Ketones NEGATIVE NEGATIVE Urine Nitrite NEGATIVE NEGATIVE Urine Bilirubin NEGATIVE NEGATIVE Urine Urobilinogen NORMAL NORMAL MG/DL Urine Leukocyte Esterase 1+ H NEGATIVE Urine RBC (Auto) 1+ H NEGATIVE Urine RBC 5-10 H /HPF Urine WBC 2-5 /HPF Urine Squamous Epithelial Cells 5-10 /HPF Urine Crystals NONE /LPF Urine Bacteria TRACE /HPF Urine Casts PRESENT /LPF Urine Hyaline Casts 2-5 H /LPF Urine Mucus SMALL H /LPF Urine Culture Indicated YES Test 11/07/18 21:27 Range/Units Glucometer 186 H 70-110 MG/DL My Orders Orders - PATRICK ALVAREZ Comprehensive Metabolic Panel (11/07/18 19:43) Ua Culture If Indicated (11/07/18 19:43) Saline Lock/Iv-Start (11/07/18 19:43) Cbc With Automated Diff (11/07/18 19:43) Urine Culture (11/07/18 19:55) Vital Signs/I&O Capillary Refill : Less Than 3 Seconds Blood Pressure Mean: 110 Point of Care Testing Finger Stick Blood Glucose: 158 Blood Glucose Action Taken: Provider notified Departure Impression Primary Impression: Diabetes mellitus Disposition: 01 HOME, SELF-CARE Condition: Stable/Unchanged Departure-Patient Inst. Decision time for Depature: 21:19 Referrals: LUPE WHITING MD (PCP/Family) Primary Care Physician Patient Instructions: Diabetes Type 2 (DC), Diabetic Meal Planning Add. Discharge Instructions: Keep an eye on her blood sugars by monitoring them with your continuous glucose monitor. Ensure that you are eating a well-balanced diet. Lower sugars and carbohydrates high protein, fruit and vegetables. Follow-up with her primary care provider within 1 week for recheck. Return back to the emergency room for any worsening symptoms or concerns as needed. All discharge instructions reviewed with patient and/or family. Voiced understanding. PATRICK ALVAREZ Nov 07, 2018 21:20
[2018-11-07 21:37] VITALS: BP 146/82
== END 2018-11-07 21:37 | disposition home or self-care (01) ==
LOC: EDUNIT# 19:06 → ER 19:08
DX: E11.22 Type 2 diabetes mellitus with diabetic chronic kidney disease (principal); N18.3 Chronic kidney disease, stage 3 (moderate); Z88.2 Allergy status to sulfonamides
CPT/HCPCS: 36415; 80053; 81000; 82962; 85025; 87088

== ENCOUNTER 2018-11-08 17:25 | Emergency (ER) | payer MEDICARE ==
[~2018-11-08] VITALS: Ht 170.2 cm; Wt 90.7 kg
--- NOTE | 2018-11-08 17:36 | NUR ---
PATRICK IN ROOM TALKING TO PT AT THIS TIME.
--- NOTE | 2018-11-08 17:55 | ED General ---
General Chief Complaint: Glucose Problems Stated Complaint: BLOOD SUGAR ISSUES Nursing Triage Note: STATES TODAY HE IS UNABLE TO KEEP HIS BLOOD SUGAR MAINTAINED TODAY. THINKS IT IS RELATED TO HIS TRULICITY. ALSO STATES HE WAS VERY WEAK THIS AM. Nursing Sepsis Screen: No Definite Risk Source of Information: Patient Exam Limitations: No Limitations History of Present Illness Date Seen by Provider: Nov 08, 2018 Time Seen by Provider: 17:40 Initial Comments 78-year-old male who presents to the emergency room with reports of unable to keep a sugar maintained. He has been on Trulicity for one week starting last Friday. He is known to me from a previous visit last night with similar concerns for his blood sugar. His blood sugar has not been below 140 all day long but he lives at home and has a fear that his blood sugars going to drop too low and no one is going to be there to take care of him. He has a continuous blood sugar monitor and he has been checking his blood sugar with a regular glucometer because he does not believe either one is accurate. Timing/Duration: 4-5 Days Associated Systoms: Weakness Allergies and Home Medications Allergies Uncoded Allergies: SULFA (Allergy, Unknown, 08/09/18) Past Stntmwq-Vnnfay-Pykovt Hx Patient Social History 2nd Hand Smoke Exposure: No Recent Foreign Travel: No Contact w/Someone Who Travel: No Recent Infectious Disease Expo: No Recent Hopitalizations: No Seasonal Allergies Seasonal Allergies: No Past Medical History Surgeries: No Respiratory: No Cardiac: No Neurological: No Genitourinary: Yes (stage 3 kidney disease) Gastrointestinal: No Musculoskeletal: No Endocrine: Yes Diabetes, Insulin dep HEENT: No Cancer: No Psychosocial: No Integumentary: No Blood Disorders: No Physical Exam Vital Signs Vital Signs - First Documented 11/08/18 17:30 Temp 97.6 Pulse 98 Resp 16 B/P (MAP) 120/73 (89) Pulse Ox 100 O2 Delivery Room Air Capillary Refill : Less Than 3 Seconds Height, Weight, BMI Height: 5'7.00" Weight: 200lbs. oz. 90.486166ee; BMI Method:Estimated Progress/Results/Core Measures Suspected Sepsis Recent Fever Within 48 Hours: No Infection Criteria Present: None New/Unexplained Altered Menta: No Sepsis Screen: No Definite Risk SIRS Temperature:97.6 Pulse: 98 Respiratory Rate: 16 Blood Pressure 120 /73 Mean: 89 Results/Orders Lab Results Laboratory Tests Test 11/08/18 17:30 11/08/18 18:01 11/08/18 18:33 11/08/18 19:33 Range/Units Glucometer 146 H 131 H 141 H 153 H 70-110 MG/DL My Orders Orders - PATRICK ALVAREZ Accucheck Stat ONCE (11/08/18 17:50) Vital Signs/I&O 11/08/18 17:30 Temp 97.6 Pulse 98 Resp 16 B/P (MAP) 120/73 (89) Pulse Ox 100 O2 Delivery Room Air Capillary Refill : Less Than 3 Seconds Blood Pressure Mean: 89 Point of Care Testing Finger Stick Blood Glucose: 146 Blood Glucose Action Taken: PATRICK AWARE. Departure Impression Primary Impression: Diabetes mellitus Disposition: HOME, SELF-CARE Condition: Stable/Unchanged Departure-Patient Inst. Decision time for Depature: 20:04 Referrals: LUPE WHITING MD (PCP/Family) Primary Care Physician Patient Instructions: Diabetes Type 2 (DC), Diabetic Meal Planning Add. Discharge Instructions: Keep a close eye on your blood sugars. Call first thing tomorrow morning to schedule an appointment with your mixer operator to get you switched off of your Trulicity if you do not like the way it makes you feel. Return back to the emergency room for any worsening symptoms or concerns as needed. All discharge instructions reviewed with patient and/or family. Voiced understanding. PATRICK ALVAREZ Nov 08, 2018 17:55
--- NOTE | 2018-11-08 18:51 | NUR ---
report received care assumed
[2018-11-08 20:22] VITALS: BP 136/71
== END 2018-11-08 20:18 | disposition home or self-care (01) ==
LOC: EDUNIT# 17:25 → ER 17:25
DX: E11.9 Type 2 diabetes mellitus without complications (principal); N18.3 Chronic kidney disease, stage 3 (moderate); Z88.2 Allergy status to sulfonamides
CPT/HCPCS: 82962

== ENCOUNTER → 2018-11-10 | Outpatient (CLI) | payer MEDICARE ==
--- NOTE | 2018-11-10 12:38 | Diagnostic Imaging Report ---
INDICATION: Stage 3 renal disease. Evaluation for urinary retention. FINDINGS: The prevoid volume of the bladder is 325 mL. Bladder wall is mildly thickened with no focal mass. Postvoid volume is 135 mL. IMPRESSION: Moderate urinary retention noted on postvoid film. Dictated by: Dictated on workstation # [id number]
--- NOTE | 2018-11-10 14:12 | Diagnostic Imaging Report ---
PROCEDURE: US DOPPLER ABD/COMPLETE TECHNIQUE: Multiple real-time grayscale images were obtained over the kidneys in various projections. Duplex evaluation of renal arteries was also attempted. INDICATION: Chronic kidney disease, stage III. Right kidney measured 11.1 x 5.2 x 4.4 cm and the left kidney measures 11.3 x 6.1 x 4.7 cm. Cortical thickness and echogenicity appears normal. No calculi are seen. There is no hydronephrosis. The bladder does demonstrate bilateral ureteral jets. Doppler evaluation was performed. The proximal renal arteries were not well visualized. Mid and distal renal arteries bilaterally demonstrate normal velocities. Waveforms are unremarkable. IMPRESSION: Unremarkable renal ultrasound with renal Doppler. Dictated by: Dictated on workstation # [id number]
== END ==
LOC: RAD 08:39
PROVIDERS: ATTEND Nurse Practitioner
DX: E11.22 Type 2 diabetes mellitus with diabetic chronic kidney disease (principal); I12.9 Hypertensive chronic kidney disease with stage 1 through stage 4 chronic kidney disease, or unspecified chronic kidney disease; N18.3 Chronic kidney disease, stage 3 (moderate); E78.5 Hyperlipidemia, unspecified; R33.9 Retention of urine, unspecified; N13.8 Other obstructive and reflux uropathy; Z79.1 Long term (current) use of non-steroidal anti-inflammatories (NSAID)
CPT/HCPCS: 76857; 93975

== ENCOUNTER 2019-10-10 05:14 | Inpatient (IN) | payer MEDICARE ==
[~2019-10-10] VITALS: Ht 172.7 cm; Wt 122.5 kg
[2019-10-10] VITALS (8 sets, daily range): BP systolic 118–185; BP diastolic 62–116
[~2019-10-10 05:14] MED LIST changes: -CLON0.2T; +CLON0.2T PO; -FURO40TA4; +FURO40TA4 PO; -METO-395; +METO-395 PO
--- NOTE | 2019-10-10 06:55 | Diagnostic Imaging Report ---
CLINICAL INDICATION: Patient complains of nausea and vomiting with blood in vomit. Patient also has weakness starting yesterday resulting in fall that cause bilateral knee and left elbow skin issues. EXAM: Portable chest x-ray upright view. COMPARISONS: None. FINDINGS: Patient is slightly rotated on exam. Lungs/pleura: There is slight low lung volumes bilaterally with mild bibasilar atelectasis. There is no pneumothorax. There is no pleural effusion. Mediastinum: Unremarkable. Pulmonary vasculature: Unremarkable. Heart: Unremarkable. Bones/extrathoracic soft tissue: There are hypertrophic spurs involving the thoracic spine. IMPRESSION: Mild bibasilar atelectasis. Otherwise, there is no radiographic evidence of acute cardiopulmonary process. Dictated by: Dictated on workstation # [id number]
[2019-10-10 06:56] LABS: BASOPHILS % (AUTO) 0 % (0-10); EOSINOPHILS % (AUTO) 0 % (0-10); HEMATOCRIT 45 % (40-54); HEMOGLOBIN 14.9 G/DL (13.3-17.7); LYMPHOCYTES # (AUTO) 0.6 X 10^3 (1.0-4.0); LYMPHOCYTES % (AUTO) 4 % (12-44); MEAN CORPUSCULAR HEMOGLOBIN 30 PG (25-34); MEAN CORPUSCULAR HGB CONC 33 G/DL (32-36); MEAN CORPUSCULAR VOLUME 89 FL (80-99); MONOCYTES # (AUTO) 1.6 X 10^3 (0.0-1.0); MONOCYTES % (AUTO) 10 % (0-12); NEUTROPHILS # (AUTO) 13.1 X 10^3 (1.8-7.8); NEUTROPHILS % (AUTO) 86 % (42-75); PLATELET COUNT 257 10^3/uL (130-400); RED CELL DISTRIBUTION WIDTH 13.4 % (10.0-14.5); WHITE BLOOD COUNT 15.3 10^3/uL (4.3-11.0)
--- NOTE | 2019-10-10 07:00 | NUR ---
EMS FLUIDS INFUSED.
[2019-10-10 07:10] LABS: ALBUMIN 3.5 GM/DL (3.2-4.5); BILIRUBIN,TOTAL 3.1 MG/DL (0.1-1.0); CALCIUM 8.7 MG/DL (8.5-10.1); CREATININE SERUM 1.94 MG/DL (0.60-1.30); POTASSIUM 5.4 MMOL/L (3.6-5.0); TOTAL PROTEIN 7.9 GM/DL (6.4-8.2)
--- NOTE | 2019-10-10 07:14 | ED General ---
General Chief Complaint: Abdominal/GI Problems Stated Complaint: GLUCOSE PROBLEMS Nursing Triage Note: PATIENT ARRIVES VIA EMS WITH A COMPLAINT OF NAUSEA AND VOMITING WITH BLOOD IN HIS VOMIT. ALSO WEAKNESS STARTED YESTERDAY AND RESULTED IN A FALL THAT CAUSED BILATERAL KNEE AND LEFT ELBOW SKIN ISSUES. PATIENT IS ALERT AND ORIENTED AND RESTING QUIETLY IN BED WITH THE CALL LIGHT IN REACH. MONITORING MAINTAINED. Nursing Sepsis Screen: No Definite Risk Source of Information: Patient Exam Limitations: No Limitations (SHARON CROW MD) History of Present Illness Date Seen by Provider: Oct 10, 2019 Time Seen by Provider: 05:25 Initial Comments Here with report of vomiting blood and being too weak to get up. Apparently he started getting too weak to move yesterday. He was able to finally make his way to the liver what he called EMS this morning. The fire department arrived and knocked on his door. He got up and then fell to the floor and skinned both knees and his left elbow. He states he has vomited and he is vomiting pink fluid that he believes is blood. He has not eaten anything recently. Timing/Duration: 24 Hours Severity: Moderate Modifying Factors: improves with Rest Associated Systoms: Shortness of Air (SHARON CROW MD) Allergies and Home Medications Allergies Uncoded Allergies: SULFA (Allergy, Unknown, 08/09/18) Patient Home Medication List Home Medication List Reviewed: Yes (SHARON CROW MD) Review of Systems Review of Systems Constitutional: see HPI; No chills, No fever; malaise, weakness EENTM: no symptoms reported Respiratory: No cough; short of breath Cardiovascular: No chest pain, No edema Gastrointestinal: abdominal pain, nausea, vomiting Genitourinary: decreased output; No dysuria Musculoskeletal: No back pain; muscle weakness Skin: no symptoms reported Psychiatric/Neurological: No Symptoms Reported Hematologic/Lymphatic: No Symptoms Reported (SHARON CROW MD) All Other Systems Reviewed Negative Unless Noted: Yes (SHARON CROW MD) Past Gjymgeu-Tpwaoq-Wyowel Hx Past Med/Social Hx: Reviewed Nursing Past Med/Soc Hx (SHARON CROW MD) Patient Social History Alcohol Use: Denies Use Recreational Drug Use: No 2nd Hand Smoke Exposure: No Recent Foreign Travel: No Contact w/Someone Who Travel: No Recent Infectious Disease Expo: No Recent Hopitalizations: No Physical Abuse: No Sexual Abuse: No Mistreated: No Fear: No (SHARON CROW MD) Immunizations Up To Date Tetanus Booster (TDap): Less than 5yrs (SHARON CROW MD) Seasonal Allergies Seasonal Allergies: No (SHARON CROW MD) Past Medical History Surgeries: No Respiratory: No Cardiac: Yes Hypertension Neurological: No Genitourinary: Yes (stage 3 kidney disease) Gastrointestinal: No Musculoskeletal: No Endocrine: Yes Diabetes, Insulin dep HEENT: No Cancer: No Psychosocial: No Integumentary: No Blood Disorders: No (SHARON CROW MD) Family Medical History Reviewed Nursing Family Hx (SHARON CROW MD) No Pertinent Family Hx (SHARON CROW MD) Physical Exam Vital Signs Vital Signs - First Documented 10/10/19 05:14 Temp 36.8 Pulse 115 Resp 20 B/P (MAP) 161/97 (118) Pulse Ox 94 (YESIKA HERNADEZ MD) Vital Signs Capillary Refill : Less Than 3 Seconds (SHARON CROW MD) Height, Weight, BMI Height: 5'7.00" Weight: 200lbs. oz. [id number]; 38.00 BMI Method:Estimated General Appearance: No Apparent Distress, WD/WN HEENT: PERRL/EOMI, Pharynx Normal Neck: Non Tender, Supple Respiratory: Lungs Clear, Normal Breath Sounds Cardiovascular: No Murmur, Tachycardia Gastrointestinal: Non Tender, Soft Back: Normal Inspection, No CVA Tenderness, No Vertebral Tenderness Extremity: Normal Range of Motion, Non Tender Neurologic/Psychiatric: Alert, Oriented x3 Skin: Warm/Dry, Other (SHARON CROW MD) Focused Exam Lactate Level 10/10/19 07:05: Lactic Acid Level 1.39 (YESIKA HERNADEZ MD) Lactic Acid Level Laboratory Tests Test 10/10/19 07:05 Lactic Acid Level 1.39 MMOL/L (0.50-2.00) (YESIKA HERNADEZ MD) Progress/Results/Core Measures Suspected Sepsis Recent Fever Within 48 Hours: No Infection Criteria Present: None New/Unexplained Altered Menta: No Sepsis Screen: No Definite Risk SIRS Temperature: Pulse: 115 Respiratory Rate: 20 Laboratory Tests 10/10/19 05:35: White Blood Count 15.3H Blood Pressure 161 /97 Mean: 118 Laboratory Tests 10/10/19 05:35: Platelet Count 257 (SHARON CROW MD) Results/Orders Lab Results Laboratory Tests Test 10/10/19 05:24 10/10/19 05:35 10/10/19 07:05 Range/Units Glucometer 234 H 70-110 MG/DL White Blood Count 15.3 H 4.3-11.0 10^3/uL Red Blood Count 5.04 4.35-5.85 10^6/uL Hemoglobin 14.9 13.3-17.7 G/DL Hematocrit 45 40-54 % Mean Corpuscular Volume 89 80-99 FL Mean Corpuscular Hemoglobin 30 25-34 PG Mean Corpuscular Hemoglobin Concent 33 32-36 G/DL Red Cell Distribution Width 13.4 10.0-14.5 % Platelet Count 257 130-400 10^3/uL Mean Platelet Volume 11.0 H 7.4-10.4 FL Neutrophils (%) (Auto) 86 H 42-75 % Lymphocytes (%) (Auto) 4 L 12-44 % Monocytes (%) (Auto) 10 0-12 % Eosinophils (%) (Auto) 0 0-10 % Basophils (%) (Auto) 0 0-10 % Neutrophils # (Auto) 13.1 H 1.8-7.8 X 10^3 Lymphocytes # (Auto) 0.6 L 1.0-4.0 X 10^3 Monocytes # (Auto) 1.6 H 0.0-1.0 X 10^3 Eosinophils # (Auto) 0.0 0.0-0.3 10^3/uL Basophils # (Auto) 0.0 0.0-0.1 10^3/uL Neutrophils % (Manual) 80 % Lymphocytes % (Manual) 7 % Monocytes % (Manual) 5 % Band Neutrophils 8 % Toxic Granulation 1+ Blood Morphology Comment NORMAL Sodium Level 138 135-145 MMOL/L Potassium Level 5.4 H 3.6-5.0 MMOL/L Chloride Level 102 98-107 MMOL/L Carbon Dioxide Level 21 21-32 MMOL/L Anion Gap 15 H 5-14 MMOL/L Blood Urea Nitrogen 25 H 7-18 MG/DL Creatinine 1.94 H 0.60-1.30 MG/DL Estimat Glomerular Filtration Rate 33 BUN/Creatinine Ratio 13 Glucose Level 237 H 70-105 MG/DL Calcium Level 8.7 8.5-10.1 MG/DL Corrected Calcium 9.1 8.5-10.1 MG/DL Total Bilirubin 3.1 H 0.1-1.0 MG/DL Aspartate Amino Transf (AST/SGOT) 258 H 5-34 U/L Alanine Aminotransferase (ALT/SGPT) 260 H 0-55 U/L Alkaline Phosphatase 139 H 40-136 U/L C-Reactive Protein High Sensitivity 2.12 H 0.00-0.50 MG/DL Total Protein 7.9 6.4-8.2 GM/DL Albumin 3.5 3.2-4.5 GM/DL Lactic Acid Level 1.39 0.50-2.00 MMOL/L Troponin I 0.787 *H <0.028 NG/ML (YESIKA HERNADEZ MD) My Orders Orders - YESIKA HERNADEZ MD Ceftriaxone For Iv Use (Rocephin For I (10/10/19 09:00) Catheter(Uri) To Dependent Aide (10/10/19 08:51) (YESIKA HERNADEZ MD) Vital Signs/I&O 10/10/19 05:14 Temp 36.8 Pulse 115 Resp 20 B/P (MAP) 161/97 (118) Pulse Ox 94 (YESIKA HERNADEZ MD) Vital Signs/I&O Capillary Refill : Less Than 3 Seconds (SHARON CROW MD) Blood Pressure Mean: 118 POS Point of Care Testing Finger Stick Blood Glucose: 234 (SHARON CROW MD) Progress Note : Progress Note Seen and evaluated. IV by EMS. An S1 liter bolus initiated by EMS will be continued. Labs, UA, blood cultures, lactic acid and chest x-ray ordered. We will add CT head and neck due to fall. Tetanus is up-to-date. 0722: Heart rate declined to 106 with O2 sat 94%. Pending CT scan. Patient is still very weak and will likely need admission. This was all discussed with Dr. Hernadez who is acc epted patient in check out pending CT. (SHARON CROW MD) Progress Note : Time: 09:02 Progress Note The patient's glucose on arrival was 234. His troponin was elevated at 0.78. His EKG demonstrated a sinus tachycardia but no acute current of injury. CT of the head and neck was unremarkable. Rectal exam was guaiac negative. The patient's CBC demonstrated a bands and toxic granulation suggestive of an occult infection. Finch catheter will be placed as the patient has been unable to urinate. After telephone consultation with Dr. Son the patient was admitted to a medical bed. 2 g of Rocephin have been ordered. (YESIKA HERNADEZ MD) Diagnostic Imaging Diagonstic Imaging: Xray Plain Films/CT/US/NM/MRI: chest Comments [facility] POS [place], [place] POS NAME: [facility] REC#: [id number] PT STATUS: REG ER : 1940 PHYSICIAN: SHARON CROW MD ADMIT DATE: 10/10/19/ER Draft POSDate of Exam:10/10/19 CHEST 1 VIEW, AP/PA ONLY CLINICAL INDICATION: Patient complains of nausea and vomiting with blood in vomit. Patient also has weakness starting yesterday resulting in fall that cause bilateral knee and left elbow skin issues. EXAM: Portable chest x-ray upright view. COMPARISONS: None. FINDINGS: Patient is slightly rotated on exam. Lungs/pleura: There is slight low lung volumes bilaterally with mild bibasilar atelectasis. There is no pneumothorax. There is no pleural effusion. Mediastinum: Unremarkable. Pulmonary vasculature: Unremarkable. Heart: Unremarkable. Bones/extrathoracic soft tissue: There are hypertrophic spurs involving the thoracic spine. IMPRESSION: Mild bibasilar atelectasis. Otherwise, there is no radiographic evidence of acute cardiopulmonary process. Dictated on workstation # [id number] Dict: 10/10/19 0649 Trans: 10/10/19 0654 [id number] Interpreted by: DWIGHT NORTON MD Electronically signed by: (SHARON CROW MD) Departure Communication (Admissions) Time/Spoke to Admitting Phy: 09:04 Dr. Son (YESIKA HERNADEZ MD) Impression Primary Impression: Generalized weakness Additional Impression: Leukocytosis Qualified Codes: D72.825 - Bandemia Disposition: ADMITTED INPATIENT Condition: Improved Admissions Decision to Admit Reason: Admit from ER (General) Decision to Admit/Date: Oct 10, 2019 Time/Decision to Admit Time: 09:06 (YESIKA HERNADEZ MD) Departure-Patient Inst. Referrals: LUPE WHITING MD (PCP/Family) Primary Care Physician SHARON CROW MD Oct 10, 2019 07:14 POSYESIKA HERNADEZ MD Oct 10, 2019 09:06 POS
[2019-10-10 07:16] LABS: BAND NEUTROPHILS 8 %; LYMPHOCYTES % (MANUAL) 7 %; MONOCYTES % (MANUAL) 5 %; NEUTROPHILS % (MANUAL) 80 %; RBC MORPH NORMAL
[2019-10-10 07:17] LABS: TOXIC GRANULATION/VACUOLAZATIO 1+
--- NOTE | 2019-10-10 07:19 | NUR ---
2ND BLOOD CULTURE DRAWN BY LAB.
--- NOTE | 2019-10-10 08:39 | Diagnostic Imaging Report ---
PROCEDURE: CT head and CT cervical spine without contrast. TECHNIQUE: Multiple contiguous axial images were obtained through the brain and cervical spine without the use of intravenous contrast. Sagittal and coronal reformations through the cervical spine were then performed. Auto Exposure Controls were utilized during the CT exam to meet ALARA standards for radiation dose reduction. INDICATION: Fall COMPARISON: None available FINDINGS: Mild atrophy. No intracranial hemorrhage. No intracranial mass, mass effect, midline shift, herniation, hydrocephalus, or extra-axial fluid collection. Periventricular and subcortical white matter hypodensities are present, most consistent with minimal chronic small vessel white matter ischemic disease. No definite CT evidence of an acute ischemic infarction. The bilateral ocular lenses are absent. Small amount of fluid/mucosal thickening within the sphenoid sinuses. Otherwise, the paranasal sinuses are clear. The calvarium and extracalvarial soft tissues are unremarkable. Alignment of the cervical spine is well maintained. Alignment of the atlantooccipital joint is well maintained. Vertebral body heights are well-maintained. No acute fracture or dislocation. No destructive osseous process. Scattered facet joint degenerative changes and uncovertebral joint hypertrophy. There is resulting multifocal bilateral neural foraminal stenosis, including bilateral neural foraminal stenosis at C4/C5. No high-grade osseous central canal stenosis. No apical pneumothorax. Paraspinal soft tissues are unremarkable. IMPRESSION: No acute intracranial abnormality. No acute osseous abnormality within the cervical spine with mild multilevel degenerative changes. Small amount of layering fluid within the sphenoid sinuses, which can be seen with acute sinusitis. Dictated by: Dictated on workstation # [id number]
[2019-10-10] MEDS ORDERED: cefTRIAXone FOR IV USE 2,000 MG in WATER (STERILE) FOR INJECTION 20 ML IV ONE (09:00)
[2019-10-10] MEDS ORDERED: ACETAMINOPHEN 325 MG TABLET PO PRN (09:00)
[2019-10-10] MEDS ORDERED: POLYETHYLENE GLYCOL 17 GM (MIRALAX) PACK PO PRN (09:00)
[2019-10-10] MEDS ORDERED: ONDANSETRON 4 MG/2 ML (SDV) Z0FRAN IV PRN (09:00)
[2019-10-10] MEDS ORDERED: BISACODYL 10 MG SUPP (DULCOLAX) PR PRN (09:00)
[2019-10-10] MEDS ORDERED: ONDANSETRON 4 MG (ZOFRAN) ORAL DISSOLVE TAB PO PRN (09:00)
[2019-10-10] MEDS ORDERED: cefTRIAXone FOR IV USE 2,000 MG in WATER (STERILE) FOR INJECTION 20 ML IV SCH (09:00)
[2019-10-10 09:12] LABS: MAGNESIUM 1.7 MG/DL (1.6-2.4)
[2019-10-10 09:18] LABS: BILIRUBIN,URINE NEGATIVE (NEGATIVE); CLARITY,URINE CLEAR; COLOR,URINE YELLOW; GLUCOSE, URINE (UA) TRACE (NEGATIVE); KETONES,URINE TRACE (NEGATIVE); LEUKOCYTE ESTERASE ,URINE NEGATIVE (NEGATIVE); NITRITE,URINE NEGATIVE (NEGATIVE); PH,URINE 6.5 (5-9); PROTEIN,URINE 2+ (NEGATIVE)
[2019-10-10 09:43] LABS: BACTERIA,URINE TRACE /HPF
[2019-10-10] MEDS ORDERED: CATHETER FLUSH 10 ML SYR IV PRN (09:45)
[2019-10-10] MEDS: LACTATED RINGERS 1,000 ML IV SCH ×3 (10:49→21:27)
[2019-10-10] MEDS: ENOXAPARIN 40 MG/0.4 ML (LOVENOX) SYR SC SCH (10:52)
[2019-10-10] MEDS ORDERED: hydrALAZINE (APESOLINE) 20 MG/ML VIAL IV PRN (11:30)
--- NOTE | 2019-10-10 11:30 | NUR ---
DR SULLIVAN NOTIFIED OF PT'S ELEVATED BLOOD PRESSURE NEW ORDERS RECEIVED. SEE ORDER HX.
[2019-10-10] MEDS: inSUlin ASPART (NovoLOG) 1 UNIT/0.01 ML (CHARGE PER UNIT) SC SCH ×3 (11:54→21:27)
[2019-10-10] MEDS ORDERED: LOSA100T57 PO (12:38)
[2019-10-10] MEDS ORDERED: LINA5TAB PO (12:38)
[2019-10-10] MEDS ORDERED: TAMS0.4C98 PO (12:38)
[2019-10-10] MEDS ORDERED: ISOS120T9 PO (12:38)
[2019-10-10] MEDS ORDERED: OMEP20CA13 PO (12:38)
[2019-10-10] MEDS ORDERED: TRAM50TA2 PO (12:38)
[2019-10-10] MEDS ORDERED: SPIR25TA5 PO (12:38)
--- NOTE | 2019-10-10 12:43 | NUR ---
DR CHURCH CALLED NEW ORDERS RECEIVED SEE ORDER HX.
[2019-10-10] MEDS ORDERED: meTOprolol 5 MG/5 ML (LOPRESSOR) VIAL IV NR (12:45)
[2019-10-10] MEDS: DOCUSATE SODIUM 100 MG (COLACE) CAP PO SCH ×2 (13:00→21:27)
[2019-10-10] MEDS: meTOprolol SUCCINATE 100 MG (TOPROL XL) TAB PO SCH (14:26)
[2019-10-10] MEDS: ISOSORBIDE MONONITRATE 60 MG (IMDUR) TAB PO SCH (14:26)
[2019-10-10] MEDS: cloNIDine 0.2 MG (CATAPRES) TAB PO SCH ×2 (14:26→21:27)
[2019-10-10] MEDS: LOSARTAN 100 MG (COZAAR) TABLET PO SCH (14:26)
--- NOTE | 2019-10-10 15:09 | Diagnostic Imaging Report ---
PROCEDURE: CT abdomen and pelvis without contrast. TECHNIQUE: Multiple contiguous axial images were obtained through the abdomen and pelvis without the use of intravenous contrast. Auto Exposure Controls were utilized during the CT exam to meet ALARA standards for radiation dose reduction. INDICATION: Abdominal pain, leukocytosis. COMPARISON: None available. FINDINGS: Calcified mediastinal and right hilar lymph nodes. Scarring and/or atelectasis within the right lung base. The left lung base is clear. Multiple gallstones are noted within the gallbladder. The gallbladder is at the upper limits of normal in size. The unenhanced liver is unremarkable. Spleen is unremarkable. The right adrenal gland is unremarkable. 3.0 cm nodule is present within the left adrenal gland with Hounsfield units of approximately 20. The pancreas is unremarkable. Cortical thinning of the left kidney. The bilateral kidneys and ureters demonstrate mild bilateral perinephric fat stranding though are otherwise unremarkable. Mild scattered vascular calcifications within the abdominal aorta and its branch vessels without aneurysmal dilatation of the abdominal aorta. Finch catheter is decompressing the urinary bladder. Small fat-containing bilateral inguinal hernias, left greater than right. Moderate colonic diverticulosis. No definite CT evidence of acute diverticulitis. The appendix is unremarkable. No bowel obstruction or pneumatosis. No significant adenopathy, free air, or free fluid within the abdomen or pelvis. Scattered osseous degenerative changes without acute osseous abnormality. IMPRESSION: Cholelithiasis in a borderline dilated gallbladder. If there is concern for acute cholecystitis, then recommend right upper quadrant ultrasound for further evaluation given CT findings. Bilateral perinephric fat stranding, possibly simply related to senescent changes of the kidneys, though underlying pyelonephritis may be present. Recommend correlation with urinalysis. Colonic diverticulosis without CT evidence of diverticulitis. Indeterminate 3 cm left adrenal gland nodule. Comparison to prior imaging would be beneficial. Otherwise, nonemergent CT of the abdomen with and without contrast using adrenal mass protocol could be performed to further characterize this left adrenal lesion. Evidence of chronic granulomatous disease. Additional findings as above. Dictated by: Dictated on workstation # [id number]
[2019-10-10] MEDS: TAMSULOSIN 0.4 MG (FLOMAX) CAP PO SCH (17:08)
--- NOTE | 2019-10-10 17:26 | NUR ---
1530 DR SULLIVAN CALLED NEW ORDERS RECEIVED TO CONSULT SURGERY REGARDING CT RESULTS 1540 DR HAYES NOTIFIED OF CONSULT NO NEW ORDERS RECEIVED. PT INFORMED.
--- NOTE | 2019-10-10 20:14 | History & Physical-Hospitalist ---
History of Present Illness HPI/Chief Complaint Artie Sethi is an 79-year-old male with past medical history of hypertension, type II diabetes mellitus, coronary artery disease, BPH, GERD, who presented with weakness and hematemesis. He reports having epigastric abdominal pain. He also reports having some chest tightness. He denies any fevers or chills. He denies any trouble breathing or cough. He denies any diarrhea. Source: patient Exam Limitations: no limitations Date Seen 10/10/19 Time Seen by a Provider: 12:30 Attending Physician Marry Sullivan MD PCP Ifeanyi Thurman MD Referring Physician Date of Admission Oct 10, 2019 at 08:50 Home Medications & Allergies Home Medications Reviewed patient Home Medication Reconciliation performed by pharmacy medication reconciliations environmental services technician and/or nursing. Patients Allergies have been reviewed. Allergies Allergies Coded Allergies Sulfa (Sulfonamide Antibiotics) (Unverified Allergy, Unknown, 10/10/19) Past Opndgdy-Bicaxw-Uwwkgx Hx Past Med/Social Hx: Reviewed Nursing Past Med/Soc Hx Patient Social History Alcohol Use: Denies Use Recreational Drug Use: No 2nd Hand Smoke Exposure: No Recent Foreign Travel: No Contact w/other who traveled: No Recent Hopitalizations: No Recent Infectious Disease Expo: No Immunizations Up To Date Tetanus Booster (TDap): Less than 5yrs Date of Pneumonia Vaccine: Oct 10, 2013 Date of Influenza Vaccine: Aug 10, 2019 Seasonal Allergies Seasonal Allergies: No Past Medical History Cardiac: Hypertension Endocrine: Diabetes, Insulin dep History of Blood Disorders: No Family History Reviewed Nursing Family Hx No Pertinent Family Hx Review of Systems Constitutional: no symptoms reported EENTM: no symptoms reported Respiratory: no symptoms reported Cardiovascular: no symptoms reported Gastrointestinal: abdominal pain (epigastric and RUQ), hematemesis, nausea, vomiting Genitourinary: no symptoms reported Musculoskeletal: no symptoms reported Skin: no symptoms reported Psychiatric/Neurological: No Symptoms Reported Physical Exam Physical Exam Vital Signs Vital Signs - First Documented 10/10/19 10/10/19 05:14 09:50 Temp 36.8 Pulse 115 Resp 20 B/P (MAP) 161/97 (118) Pulse Ox 94 O2 Delivery Room Air Capillary Refill : Less Than 3 Seconds Height, Weight, BMI Height: 5'7.00" Weight: 200lbs. oz. 90.892067rl; 38.75 BMI Method:Estimated General Appearance: No Apparent Distress, Obese HEENT: PERRL/EOMI, Pharynx Normal Neck: Normal Inspection, Non Tender, Supple Respiratory: Chest Non Tender, Lungs Clear, Normal Breath Sounds, No Respiratory Distress Cardiovascular: No Edema, No Murmur, Tachycardia (regular rate) Gastrointestinal: Normal Bowel Sounds, Soft, Distended; No Guarding, No Rebound; Tenderness (epigastric and RUQ), Other (negative Encinas sign) Extremity: Normal Inspection, Non Tender, No Pedal Edema Neurologic/Psychiatric: Alert, Oriented x3, No Motor/Sensory Deficits, Normal Mood/Affect Skin: Normal Color, Warm/Dry Lymphatic: No Adenopathy Results Results/Procedures Labs Laboratory Tests 10/10/19 05:35 10/11/19 02:45 Patient resulted labs reviewed. Imaging: Reviewed Imaging Report Assessment/Plan Admission Diagnosis Severe sepsis Admission Status: Inpatient Order (span 2 midnights) Reason for Inpatient Admission: Sepsis and NSTEMI requiring antibiotics and further evaluation Assessment and Plan Severe sepsis Elevated LFTs Leukocytosis and tachycardia on admission Elevated AST/ALC and total bilirubin Infectious workup unrevealing Obtain CT abdomen Obtain lipase level Continue Rocephin and Flagyl NSTEMI Troponin elevated on admission, trending up EKG normal Cardiology consulted, appreciate recommendations Echo ordered CKD stage III Creatinine 1.9, appears to be at baseline Avoid nephrotoxins as able Hypertension Continue home meds Type II diabetes mellitus Sliding scale insulin DVT prophylaxis: Lovenox Diagnosis/Problems Diagnosis/Problems (1) Severe sepsis Status: Acute (2) NSTEMI (non-ST elevation myocardial infarction) Status: Acute Clinical Quality Measures DVT/VTE Risk/Contraindication: Risk Factor Score Per Nursin RFS Level Per Nursing on Admit: 4+=Very High MARRY SULLIVAN MD Oct 10, 2019 20:14 POS
[2019-10-10] MEDS: metroNIDAZOLE 500MG/100ML IVPB 100 ML IV SCH (21:26)
[2019-10-11] VITALS: BP 118/59
[2019-10-11 03:22] LABS: BASOPHILS % (AUTO) 0 % (0-10); EOSINOPHILS % (AUTO) 0 % (0-10); HEMATOCRIT 42 % (40-54); HEMOGLOBIN 13.6 G/DL (13.3-17.7); LYMPHOCYTES # (AUTO) 0.9 X 10^3 (1.0-4.0); LYMPHOCYTES % (AUTO) 8 % (12-44); MEAN CORPUSCULAR HEMOGLOBIN 29 PG (25-34); MEAN CORPUSCULAR HGB CONC 33 G/DL (32-36); MEAN CORPUSCULAR VOLUME 90 FL (80-99); MEAN PLATELET VOLUME 10.9 FL (7.4-10.4); MONOCYTES # (AUTO) 1.4 X 10^3 (0.0-1.0); MONOCYTES % (AUTO) 12 % (0-12); NEUTROPHILS # (AUTO) 9.4 X 10^3 (1.8-7.8); NEUTROPHILS % (AUTO) 80 % (42-75); PLATELET COUNT 210 10^3/uL (130-400); RED CELL DISTRIBUTION WIDTH 13.8 % (10.0-14.5); WHITE BLOOD COUNT 11.7 10^3/uL (4.3-11.0)
[2019-10-11 03:53] LABS: ALBUMIN 3.1 GM/DL (3.2-4.5); BILIRUBIN,TOTAL 5.7 MG/DL (0.1-1.0); CALCIUM 8.3 MG/DL (8.5-10.1); CREATININE SERUM 2.09 MG/DL (0.60-1.30); POTASSIUM 4.3 MMOL/L (3.6-5.0); TOTAL PROTEIN 6.4 GM/DL (6.4-8.2)
[2019-10-11 04:00] VITALS: BP 118/59
[2019-10-11] MEDS: LACTATED RINGERS 1,000 ML IV SCH ×3 (06:09→20:04)
[2019-10-11] MEDS: inSUlin ASPART (NovoLOG) 1 UNIT/0.01 ML (CHARGE PER UNIT) SC SCH ×4 (06:10→20:07)
[2019-10-11] MEDS: ISOSORBIDE MONONITRATE 60 MG (IMDUR) TAB PO SCH (06:10)
[2019-10-11] MEDS: metroNIDAZOLE 500MG/100ML IVPB 100 ML IV SCH ×3 (06:11→20:50)
--- NOTE | 2019-10-11 06:47 | Diagnostic Imaging Report ---
EXAMINATION: Chest 1 view HISTORY: Fall. Generalized weakness. COMPARISON: 10/10/2019 FINDINGS: The lung volumes are normal. Stable small amount of bibasilar atelectasis. No focal consolidation is seen. No large pleural effusion or pneumothorax is seen. The cardiomediastinal silhouette is normal in size and contour. No acute osseous abnormality is seen. IMPRESSION: 1. Continued bibasilar atelectasis. No focal consolidation or mass. Dictated by: Dictated on workstation # [id number]
[2019-10-11] MEDS ORDERED: ASPIRIN E.C. 325 MG (ECOTRIN) TABLET PO NR (07:45)
--- NOTE | 2019-10-11 07:47 | Consultation-Cardiology ---
HPI-Cardiology Cardiology Consultation Date of Consultation 10/11/19 Date of Admission Time Seen by Provider: 07:41 Indication: Chest pain, elevated troponin HPI 79 years old gentleman with history of hypertension, chronic kidney disease, started to have increasing weakness and fatigue and loss of energy in addition to abdominal pain, had some tightness in his chest, called EMS and brought to the emergency room after having severe weakness, fell to the floor, reporting vomiting blood-tinged material. Reporting some tightness in his chest with breathing. No previous history of cardiac disease, no previous history of chest pain, had a stress test about 4 years ago and reported that it was normal. After admission he was noted to have elevated troponin level, denied any active chest pain, still having abdominal pain and was severely hypertensive Home Medications & Allergies Allergies: Coded Allergies: Sulfa (Sulfonamide Antibiotics) (Unverified Allergy, Unknown, 10/10/19) Home Medication List Reviewed: Yes JZJ-Enrnef-Zdlwjr Hx Patient Social History Employed/Student: retired Alcohol Use: Denies Use Recreational Drug Use: No 2nd Hand Smoke Exposure: No Recent Foreign Travel: No Recent Infectious Disease Expo: No Recent Hopitalizations: No Immunizations Up To Date Tetanus Booster (TDap): Less than 5yrs Date of Pneumonia Vaccine: Oct 10, 2013 Date of Influenza Vaccine: Aug 10, 2019 Past Medical History Discussed below Family Medical History Significant Family History: No Pertinent Family Hx Family Medical Hx Noncontributory Review of Systems-General Review of Systems Constitutional: see HPI, malaise, weakness EENTM: see HPI, no symptoms reported Respiratory: no symptoms reported, see HPI Cardiovascular: see HPI, chest pain; No edema, No Hx of Intervention, No palpitations, No syncope, No vascular heart diseas, No other Gastrointestinal: RUQ, see HPI, abdominal pain (epigastric and RUQ), hematemesis, nausea, vomiting Genitourinary: see HPI, dysuria Musculoskeletal: see HPI Skin: no symptoms reported, see HPI Psychiatric/Neurological: See HPI All Other Systems Reviewed Negative Unless Noted: Yes Reviewed Test Results Reviewed Test Results Lab Laboratory Tests Test 10/10/19 09:06 10/10/19 11:24 10/10/19 11:35 10/10/19 17:18 Range/Units Urine Color YELLOW Urine Clarity CLEAR Urine pH 6.5 5-9 Urine Specific [place] 1.010 L 1.016-1.022 Urine Protein 2+ H NEGATIVE Urine Glucose (UA) TRACE H NEGATIVE Urine Ketones TRACE H NEGATIVE Urine Nitrite NEGATIVE NEGATIVE Urine Bilirubin NEGATIVE NEGATIVE Urine Urobilinogen 1.0 < = 1.0 MG/DL Urine Leukocyte Esterase NEGATIVE NEGATIVE Urine RBC (Auto) TRACE-I NEGATIVE Urine RBC NONE /HPF Urine WBC NONE /HPF Urine Crystals NONE /LPF Urine Bacteria TRACE /HPF Urine Casts NONE /LPF Urine Mucus NEGATIVE /LPF Urine Culture Indicated NO Glucometer 191 H 174 H 70-110 MG/DL Troponin I 1.250 *H <0.028 NG/ML Lipase 31 8-78 U/L Test 10/10/19 18:05 10/10/19 21:01 10/11/19 02:45 Range/Units Troponin I 1.378 *H <0.028 NG/ML Glucometer 180 H 70-110 MG/DL White Blood Count 11.7 H 4.3-11.0 10^3/uL Red Blood Count 4.65 4.35-5.85 10^6/uL Hemoglobin 13.6 13.3-17.7 G/DL Hematocrit 42 40-54 % Mean Corpuscular Volume 90 80-99 FL Mean Corpuscular Hemoglobin 29 25-34 PG Mean Corpuscular Hemoglobin Concent 33 32-36 G/DL Red Cell Distribution Width 13.8 10.0-14.5 % Platelet Count 210 130-400 10^3/uL Mean Platelet Volume 10.9 H 7.4-10.4 FL Neutrophils (%) (Auto) 80 H 42-75 % Lymphocytes (%) (Auto) 8 L 12-44 % Monocytes (%) (Auto) 12 0-12 % Eosinophils (%) (Auto) 0 0-10 % Basophils (%) (Auto) 0 0-10 % Neutrophils # (Auto) 9.4 H 1.8-7.8 X 10^3 Lymphocytes # (Auto) 0.9 L 1.0-4.0 X 10^3 Monocytes # (Auto) 1.4 H 0.0-1.0 X 10^3 Eosinophils # (Auto) 0.0 0.0-0.3 10^3/uL Basophils # (Auto) 0.0 0.0-0.1 10^3/uL Sodium Level 138 135-145 MMOL/L Potassium Level 4.3 3.6-5.0 MMOL/L Chloride Level 105 98-107 MMOL/L Carbon Dioxide Level 20 L 21-32 MMOL/L Anion Gap 13 5-14 MMOL/L Blood Urea Nitrogen 25 H 7-18 MG/DL Creatinine 2.09 H 0.60-1.30 MG/DL Estimat Glomerular Filtration Rate 31 BUN/Creatinine Ratio 12 Glucose Level 148 H 70-105 MG/DL Calcium Level 8.3 L 8.5-10.1 MG/DL Corrected Calcium 9.0 8.5-10.1 MG/DL Total Bilirubin 5.7 #H 0.1-1.0 MG/DL Aspartate Amino Transf (AST/SGOT) 134 H 5-34 U/L Alanine Aminotransferase (ALT/SGPT) 183 H 0-55 U/L Alkaline Phosphatase 122 40-136 U/L Total Protein 6.4 6.4-8.2 GM/DL Albumin 3.1 L 3.2-4.5 GM/DL Physical Exam Physical Exam Vital Signs Vital Signs - First Documented 10/10/19 10/10/19 05:14 09:50 Temp 36.8 Pulse 115 Resp 20 B/P (MAP) 161/97 (118) Pulse Ox 94 O2 Delivery Room Air Capillary Refill : Less Than 3 Seconds Height, Weight, BMI Height: 5'7.00" Weight: 200lbs. oz. 90.170467sl; 38.75 BMI Method:Estimated General Appearance: WD/WN, Mild Distress, Obese HEENT: PERRL/EOMI, TMs Normal, Normal ENT Inspection, Pharynx Normal Neck: Normal Inspection, Non Tender, Supple Respiratory: Chest Non Tender, Lungs Clear, Normal Breath Sounds, No Respiratory Distress Cardiovascular: Regular Rate, Rhythm, No Edema, No JVD, No Murmur, Tachycardia (regular rate) Gastrointestinal: Normal Bowel Sounds, Soft, Distended; No Guarding, No Rebound; Tenderness (epigastric and RUQ), Other (negative Encinas sign) Back: Normal Inspection, No CVA Tenderness, No Vertebral Tenderness Extremity: Normal Inspection, Non Tender, No Pedal Edema Neurologic/Psychiatric: Alert, Oriented x3, No Motor/Sensory Deficits, Normal Mood/Affect Skin: Normal Color, Warm/Dry Lymphatic: No Adenopathy A/P-Cardiology Admission Diagnosis Non-ST elevation myocardial infarctions Coronary artery disease Hypertension Hematemesis Assessment/Plan Elevated troponin level, non-ST elevation myocardial infarction, no EKG changes, troponin is elevated, will start aspirin, continue with IV fluid and monitor renal function, I will consider cardiac catheterization once clinically more stable with his acute abdomen Hematemesis, unable to tolerate aggressive anticoagulation, monitor H&H Abdominal pain, elevated liver enzymes, gallstones, questionable cholecystitis, still having significant abdominal pain, continue with IV fluid and antibiotic and monitor, managed by primary care physician Acute on chronic renal failure, underlying chronic kidney disease stage III. Continue with IV fluid and monitor Hypertension, poorly controlled, better controlled today. Continue on current medication monitor blood pressure Diabetes mellitus, followed and managed by primary care physician Elevated liver enzymes. Trending down. Continue to monitor Clinical Quality Measures DVT/VTE Risk/Contraindication: Risk Factor Score Per Nursin RFS Level Per Nursing on Admit: 4+=Very High JINA CHURCH MD Oct 11, 2019 07:47 POS
[2019-10-11 08:00] VITALS: BP 137/75
--- NOTE | 2019-10-11 08:16 | Consultation - Surgery ---
DINAH FRITZ,MED STUDENT 10/11/19 0816: History of Present Illness History of Present Illness Patient Consulted On(mely/time) 10/11/19 08:08 Date Seen by Provider: Oct 11, 2019 Time Seen by Provider: 08:10 Reason for Visit: Chest pain, elevated troponin History of Present Illness Patient presented to the ER 2 days ago because he had fallen and felt too weak to get up and had abdominal pain and with blood tinged vomitus. Upon evaluation in the ER, the patient was showed to be having an [place] and he says vomited up blood. Today patient says that he is feeling better, but is achy from being in bed for so long and still feel weak. Leanna does report vomiting yesterday but says that there was no blood in his vomit. He denies having any pain or any other co mplaints and says "If I wasn't so weak I feel that I could go home." He denies having any bowel movements since he was admit Allergies and Home Medications Allergies Coded Allergies: Sulfa (Sulfonamide Antibiotics) (Unverified Allergy, Unknown, 10/10/19) Home Medications Clonidine HCl 0.2 Mg Tablet, 0.2 MG PO HS, (Reported) Furosemide 40 Mg Tablet, 40 MG PO DAILY, (Reported) Insulin Detemir 100 Unit/1 Ml Insuln.pen, 32 UNITS SC DAILY, (Reported) Insulin Detemir 100 Unit/1 Ml Insuln.pen, 29 UNIT SQ HS, (Reported) Isosorbide Mononitrate 120 Mg Tab.er.24h, 120 MG PO DAILY, (Reported) Linagliptin 5 Mg Tablet, 5 MG PO DAILY, (Reported) Losartan Potassium 100 Mg Tablet, 100 MG PO DAILY, (Reported) Metoprolol Succinate 100 Mg Tab.er.24h, 100 MG PO DAILY, (Reported) Omeprazole 20 Mg Capsule.dr, 20 MG PO DAILY, (Reported) Sennosides/Docusate Sodium 1 Each Tablet, 2 TAB PO HS, (Reported) Spironolactone 25 Mg Tablet, 25 MG PO DAILY, (Reported) Tamsulosin HCl 0.4 Mg Cap, 0.4 MG PO DAILY, (Reported) Tramadol HCl 50 Mg Tablet, 50 MG PO DAILY PRN for PAIN-MODERATE (5-7), (Reported) Vit C/E/Zn/Coppr/Lutein/Zeaxan 1 Each Capsule, 1 CAP PO BID, (Reported) Past Hbzcssm-Rhlbxm-Jzuvde Hx Patient Social History Alcohol Use: Denies Use Recreational Drug Use: No Smoking Status: Never a Smoker 2nd Hand Smoke Exposure: No Recent Foreign Travel: No Contact w/Someone Who Travel: No Recent Infectious Disease Expo: No Recent Hopitalizations: No Immunizations Up To Date Tetanus Booster (TDap): Less than 5yrs Date of Pneumonia Vaccine: Oct 10, 2013 Date of Influenza Vaccine: Aug 10, 2019 Seasonal Allergies Seasonal Allergies: No Surgeries History of Surgeries: No Respiratory History of Respiratory Disorde: Yes Respiratory Disorders: Pneumonia (when 1 years old ) Cardiovascular History of Cardiac Disorders: Yes Cardiac Disorders: Heart Attack, Hypertension Neurological History of Neurological Disord: No Genitourinary History of Genitourinary Disor: Yes (stage 3 kidney disease) Gastrointestinal History of Gastrointestinal Di: No Musculoskeletal History of Musculoskeletal Dis: No Endocrine History of Endocrine Disorders: Yes Endocrine Disorders: Diabetes, Insulin dep HEENT History of HEENT Disorders: No Cancer History of Cancer: No Psychosocial History of Psychiatric Problem: No Integumentary History of Skin or Integumenta: No Blood Transfusions History of Blood Disorders: No Family Medical History Significant Family History: No Pertinent Family Hx, GI Disease (mother had ulcers ) Family Medial History: Cardiovascular disease 19 FATHER Hypertension 19 FATHER Review of Systems-General Constitutional: No chills, No fever; weakness; No weight gain, No weight loss EENTM: blurred vision (has AMD ), vision loss (has AMD ); No double vision Respiratory: cough; No short of breath Cardiovascular: No chest pain, No edema, No Hx of Intervention; palpitations Gastrointestinal: abdominal pain (non-specifc and midline ), constipation; No diarrhea, No nausea, No vomiting Psychiatric/Neurological: Denies Anxiety; Depressed, Headache Physical Exam-General Problems Physical Exam Vital Signs Vital Signs - First Documented 10/10/19 10/10/19 05:14 09:50 Temp 36.8 Pulse 115 Resp 20 B/P (MAP) 161/97 (118) Pulse Ox 94 O2 Delivery Room Air Capillary Refill : Less Than 3 Seconds General Appearance: WD/WN, no apparent distress, obese Neck: non-tender, supple Respiratory: chest non-tender, lungs clear, normal breath sounds, no respiratory distress, no accessory muscle use Cardiovascular: regular rate, rhythm, no edema Peripheral Pulses: 2+ Dorsalis Pedis (R), 2+ Left Dors-Pedis (L), 2+ Radial Pulses (R), 2+ Radial Pulses (L) Gastrointestinal: normal bowel sounds, soft, no pulsatile mass, tenderness (RUQ to deep palpation ) Extremities: no pedal edema, no calf tenderness Neurologic/Psychiatric: alert, normal mood/affect, oriented x 3 Skin: normal color, warm/dry Data Review Labs Laboratory Tests 10/10/19 09:06: Urine Color YELLOW, Urine Clarity CLEAR, Urine pH 6.5, Urine Specific [place] 1.010L, Urine Protein 2+H, Urine Glucose (UA) TRACEH, Urine Ketones TRACEH, Urine Nitrite NEGATIVE, Urine Bilirubin NEGATIVE, Urine Urobilinogen 1.0, Urine Leukocyte Esterase NEGATIVE, Urine RBC (Auto) TRACE-I, Urine RBC NONE, Urine WBC NONE, Urine Crystals NONE, Urine Bacteria TRACE, Urine Casts NONE, Urine Mucus NEGATIVE, Urine Culture Indicated NO 10/10/19 11:24: Glucometer 191H 10/10/19 11:35: Troponin I 1.250*H, Lipase 31 10/10/19 17:18: Glucometer 174H 10/10/19 18:05: Troponin I 1.378*H 10/10/19 21:01: Glucometer 180H 10/11/19 02:45: White Blood Count 11.7H, Red Blood Count 4.65, Hemoglobin 13.6, Hematocrit 42, Mean Corpuscular Volume 90, Mean Corpuscular Hemoglobin 29, Mean Corpuscular Hemoglobin Concent 33, Red Cell Distribution Width 13.8, Platelet Count 210, Noemi n Platelet Volume 10.9H, Neutrophils (%) (Auto) 80H, Lymphocytes (%) (Auto) 8L, Monocytes (%) (Auto) 12, Eosinophils (%) (Auto) 0, Basophils (%) (Auto) 0, Neutrophils # (Auto) 9.4H, Lymphocytes # (Auto) 0.9L, Monocytes # (Auto) 1.4H, Eosinophils # (Auto) 0.0, Basophils # (Auto) 0.0, Sodium Level 138, Potassium Level 4.3, Chloride Level 105, Carbon Dioxide Level 20L, Anion Gap 13, Blood Urea Nitrogen 25H, Creatinine 2.09H, Estimat Glomerular Filtration Rate 31, BUN/Creatinine Ratio 12, Glucose Level 148H, Calcium Level 8.3L, Corrected Calcium 9.0, Total Bilirubin 5.7#H, Aspartate Amino Transf (AST/SGOT) 134H, Alanine Aminotransferase (ALT/SGPT) 183H, Alkaline Phosphatase 122, Total Protein 6.4, Albumin 3.1L 10/11/19 03:45: Assessment/Plan Assessment/Plan Assessment/Plan NSTEMI leukocytosis asymtomatic cholelithiasis blood-tinged vomitus Consider EGD since patient had blood in vomitus. Leukocytosis is likely reactive due NSTEMI, will continue to monitor. Cholelithiasis is asymtomatic at this time, will discuss further with patient. Will continue to monitor patient will in hospital with possible out patient follow up. Clinical Quality Measures DVT/VTE Risk/Contraindication: Risk Factor Score Per Nursin RFS Level Per Nursing on Admit: 4+=Very High LALIT KASPER DO 10/11/19 1637: History of Present Illness History of Present Illness Time Seen by Provider: 14:48 History of Present Illness Surgery asked to consult regarding abdominal pain and possible Cholecystitis. When seen this afternoon pt states he still has the same abdominal pain and points subxiphoid and RUQ; states it hasn't really changed much. He rates it as 3-4 out of 10. Pt denies CP and thinks his SOB is due to his medication. He also reports that he has been feeling "unstable recently, fell twice appx 6 months ago and then yesterday". He states it usually occurs if he stands up to fast. Pt states he has never had an EGD before (doesn't think he has ever had heartburn) and has never had hematemesis prior to this episode. Pt also does not think he has had stomach pain before and definitely not related to food. Allergies and Home Medications Allergies Coded Allergies: Sulfa (Sulfonamide Antibiotics) (Unverified Allergy, Unknown, 10/10/19) Home Medications Clonidine HCl 0.2 Mg Tablet, 0.2 MG PO HS, (Reported) Furosemide 40 Mg Tablet, 40 MG PO DAILY, (Reported) Insulin Detemir 100 Unit/1 Ml Insuln.pen, 32 UNITS SC DAILY, (Reported) Insulin Detemir 100 Unit/1 Ml Insuln.pen, 29 UNIT SQ HS, (Reported) Isosorbide Mononitrate 120 Mg Tab.er.24h, 120 MG PO DAILY, (Reported) Linagliptin 5 Mg Tablet, 5 MG PO DAILY, (Reported) Losartan Potassium 100 Mg Tablet, 100 MG PO DAILY, (Reported) Metoprolol Succinate 100 Mg Tab.er.24h, 100 MG PO DAILY, (Reported) Omeprazole 20 Mg Capsule.dr, 20 MG PO DAILY, (Reported) Sennosides/Docusate Sodium 1 Each Tablet, 2 TAB PO HS, (Reported) Spironolactone 25 Mg Tablet, 25 MG PO DAILY, (Reported) Tamsulosin HCl 0.4 Mg Cap, 0.4 MG PO DAILY, (Reported) Tramadol HCl 50 Mg Tablet, 50 MG PO DAILY PRN for PAIN-MODERATE (5-7), (Reported) Vit C/E/Zn/Coppr/Lutein/Zeaxan 1 Each Capsule, 1 CAP PO BID, (Reported) Patient Home Medication List Home Medication List Reviewed: Yes Past Jjymnzo-Kyndjv-Itwxpl Hx Surgeries History of Surgeries: No Family Medical History Significant Family History: CAD Over 55 Years Old, Hypertension Family Medial History: Cardiovascular disease 19 FATHER Hypertension 19 FATHER Review of Systems-General Genitourinary: No dysuria, No frequency, No hematuria Musculoskeletal: joint pain, joint swelling, muscle stiffness Skin: No change in color, No change in hair/nails Psychiatric/Neurological: Denies Tremors; Other (dizziness) Other pt denies any hx of abnormal bleeding or bruising Physical Exam-General Problems Physical Exam Eyes: Bilateral Eye PERRL, Bilateral Eye EOMI HEENT: pharynx normal; No scleral icterus (R), No scleral icterus (L) Back: no CVA tenderness, no vertebral tenderness Neurologic/Psychiatric: rotary cutter feeder II-XII nml as tested Lymphatic: no adenopathy (neck, axilla or groin) Assessment/Plan Assessment/Plan Assessment/Plan Cholelithiasis with ??Cholecystitis Elevated LFT's RUQ abd pain Hematemesis NSTEMI Pt is not really having a lot of RUQ pain and does not appear to be in distress; in addition his WBC decreased. I am not convinced he has cholecystitis. He has elevated Bilirubin; but it is mostly direct, which means it is probably elevated because of the liver and not a stone in the CBD. He may benefit from having an EGD this admission and probably Cholecystectomy as an outpt. Will monitor labs and discuss with pt and the other physicians the timing of EGD. Supervisory-Addendum Brief Verification & Attestation Participated in pt care: history, MDM, physical Personally performed: exam, history, MDM Care discussed with: Medical Student Procedures: n/a Verification and Attestation of Medical Student E/M Service A medical student performed and documented this service in my presence. I reviewed and verified all information documented by the medical student and made modifications to such information, when appropriate. I personally performed the physical exam and medical decision making. Lalit Kasper, Oct 11, 2019,17:02 DINAH FRITZ,MED STUDENT Oct 11, 2019 08:16 LALIT GUZMÁN DO Oct 11, 2019 16:37 POS
[2019-10-11] MEDS: cefTRIAXone FOR IV USE 2,000 MG in WATER (STERILE) FOR INJECTION 20 ML IV SCH (08:54)
[2019-10-11 09:28] LABS: BILIRUBIN,DIRECT 4.3 MG/DL (0.0-0.3); BILIRUBIN,INDIRECT 1.4 MG/DL; BILIRUBIN,TOTAL 5.7 MG/DL (0.1-1.0)
--- NOTE | 2019-10-11 10:00 | Occupational Therapy Eval ---
OT Evaluation-General/PLF Medical Diagnosis Admission Date Oct 10, 2019 at 08:50 Medical Diagnosis: Sepsis, NSTEMI, weakness Onset Date: Oct 10, 2019 Therapy Diagnosis Therapy Diagnosis: decr activity tolerance, decr self care, generalized weakkness Height/Weight Height (Feet): 5 Height (Inches): 7.00 Weight (Pounds): 200 Precautions Precautions/Isolations: Fall Prevention, Standard Precautions Referral Physician: Adelaida Referral Reason: Evaluation/Treatment Medical History Pertinent Medical History: CAD, DM, HTN Additional Medical History Stage 3 kidney disease. AMD macular degeneration Current History Had problems with n/v at home and called EMS. Fell at home, with bilat knee and L elbow issues. Reported too weak to get up to unlock door for EMS. Reviewed History: Yes Social History Home: Single Level Current Living Status: Alone ADL-Prior Level of Function SCALE: Activities may be completed with or without assistive devices. 7-Rsfnqvrymr-telvuvw completes the activity by him/herself with no assistance from a helper. 5-Set-up or Clean-up Assistance-helper sets up or cleans up; patient completes activity. Hadley assists only prior to or following the activity. 4-Supervision or Touching Assistance-helper provides verbal cues and/or touching/steadying and/or contact guard assistance as patient completes activity. Assistance may be provided throughout the activity or intermittently. 3-Partial/Moderate Assistance-helper does LESS THAN HALF the effort. Hadley lifts, holds or supports trunk or limbs, but provides less than half the effort. 2-Substantial/Maximal Assistance-helper does MORE THAN HALF the effort. [place] lifts or holds trunk or limbs and provides more than half the effort. 2-Zpplgxqeq-dgwgyj does ALL the effort. Patient does none of the effort to complete the activity. Or, the assistance of 2 or more helpers is required for the patient to complete the activity. If activity was not attempted, code reason: 7-Patient Refused. 9-Not Applicable-not attempted and the patient did not perform the activity before the current illness, exacerbation or injury. 10-Not Attempted due to Environmental Limitations-(lack of equipment, weather restraints, etc.). 88-Not Attempted due to Medical Conditions or Safety Concerns. ADL PLOF Comments Pt reported that he has been able to manage all of his basic ADLs and care for his home but said that he needs help cleaning due to decreased vision. He is a ble to drive with glasses. He can read large print with additional lighting. 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 Pt reported pain 0/10 unless he coughed and then his chest hurt. Appearance Alert, cooperative Mental Status/Objective Patient Orientation: Person, Place, Time, Situation Attachments: Central Line, Finch Catheter, IV, Telemetry Current Hand Dominance: Right Upper Extremity ROM Grossly WFL bilat Upper Extremity Strength Grossly WFL bilat ADL-Treatment ADL-Current Pt reported that he transferred from EOB to recliner, using FWW, with PT helping manage tubing. He said that he has been able to get a drink and feed himself but hasn't toileting yes since he has a Finch. He hasn't bathed or changed clothing. He did report decreased activity tolerance and fatigue Eating (QC): 5 Oral Hygiene (QC): 88 Shower/Bathe Self (QC): 88 Upper Body Dressing (QC): 88 Lower Body Dressing (QC): 88 On/Off Footwear (QC): 88 Toileting Hygiene (QC): 88 Toilet Transfer (QC): 88 Education OT Patient Education: Energy conservation, Purpose of tx/functional activities, Rehab process Teaching Recipient: Patient Teaching Methods: Discussion Response to Teaching: Verbalize Understanding, Reinforcement Needed OT [facility] Goals Skills Trainer Goals Time Frame: Oct 18, 2019 Eating (QC): 6 Oral Hygiene (QC): 6 Toileting Hygiene (QC): 6 Shower/Bathe Self (QC): 5 Upper Body Dressing (QC): 5 Lower Body Dressing (QC): 5 On/Off Footwear (QC): 5 Additional Goals: 1-Demonstrate ADL Tasks, 2-Verbalize Understanding, 3- ImproveStrength/Shannon 1=Demonstrate adherence to instructed precautions during ADL tasks. 2=Patient will verbalize/demonstrate understanding of assistive devices/modifications for ADL. 3=Patient will improve strength/tolerance for activity to enable patient to perform ADL's. OT Education/Plan Problem List/Assessment Assessment: Decreased Activ Tolerance, Impaired Self-Care Skills Pt would benefit from skilled OT to increase his independence in basic self care and his activity tolerance Discharge Recommendations Plan/Recommendations: Continue POC Treatment Plan/Plan of Care Treatment,Training & Education: Yes Patient would benefit from OT for education, treatment and training to promote independence in ADL's, mobility, safety and/or upper extremity function for ADL's. Plan of Care: ADL Retraining, OTHER (Energy conservation techniques) Treatment Duration: Oct 18, 2019 Frequency: 5 times per week Estimated Hrs Per Day: .25 hour per day Agreement: Yes Rehab Potential: Good Time/GCodes Start Time: 09:10 Stop Time: 09:23 Total Time Billed (hr/min): 13 Billed Treatment Time visit, 13 minutes evaluation low intensity TAI RIZZO OT Oct 11, 2019 10:00 POS
[2019-10-11] MEDS ORDERED: INSU100I29 SQ (10:34)
[2019-10-11] MEDS ORDERED: INSU100I29 SC (10:34)
[2019-10-11] MEDS ORDERED: VIT1CAPS44 PO (10:34)
[2019-10-11] MEDS ORDERED: SENN-109 PO (10:34)
--- NOTE | 2019-10-11 10:36 | NUR ---
PATIENT HAD HIS BOTTLES IN THE ROOM WITH HIM. I WENT OVER THEM WELL COMPARING TO THE EXT MED HX. HE VERIFIED HOW HE TAKES EACH ONE. HIS FUROSEMIDE 40MG WAS FILLED BID #180 09-01-19 - HE STATES HE IS ONLY TAKING 1 TAB ONCE DAILY IN THE MORNING. HE TAKES PRESERVISION AREDS 2 BID, SENNA S 2 HS OTC. HE ALSO HAD A BOTTLE OF VITAMIN D BUT HE STATES HE IS NO LONGER TAKING IT. HE HAS GABAPENTIN, METOPROLOL TARTRATE, AND AMBIEN BOTTLES IN HIS BAG WITH OLD FILL DATES ON THEM. HE STATES HE IS NO LONGER TAKING ANY OF THESE MEDICATIONS HE JUST STILL HAS THEM IN HIS BAG.
--- NOTE | 2019-10-11 10:36 | Physical Therapy Evaluation ---
PT Evaluation-General Medical Diagnosis Admission Date Oct 10, 2019 at 08:50 Medical Diagnosis: Sepsis, NSTEMI, weakness Onset Date: Oct 10, 2019 Therapy Diagnosis Therapy Diagnosis: generalized weakness/debility Height/Weight Height (Feet): 5 Height (Inches): 7.00 Weight (Pounds): 200 Precautions Precautions/Isolations: Fall Prevention, Standard Precautions Weight Bear Status Right Lower Extremity: Right Weight Bearing/Tolerated Left Lower Extremity: Left Weight Bearing/Tolerated Referral Physician: Adelaida Reason for Referral: Evaluation/Treatment Medical History Pertinent Medical History: CAD, DM, HTN Current History EMS secondary to fall and vomiting blood Reviewed History: Yes Social History Home: Single Level Current Living Status: Alone Prior Prior Level of Function SCALE: Activities may be completed with or without assistive devices. 9-Fjhksyojfm-iwvcect completes the activity by him/herself with no assistance from a helper. 5-Set-up or Clean-up Assistance-helper sets up or cleans up; patient completes activity. [place] assists only prior to or following the activity. 4-Supervision or Touching Assistance-helper provides verbal cues and/or touching/steadying and/or contact guard assistance as patient completes activity. Assistance may be provided throughout the activity or intermittently. 3-Partial/Moderate Assistance-helper does LESS THAN HALF the effort. [place] lifts, holds or supports trunk or limbs, but provides less than half the effort. 2-Substantial/Maximal Assistance-helper does MORE THAN HALF the effort. [place] lifts or holds trunk or limbs and provides more than half the effort. 2-Lfcoqdonn-cfcvam does ALL the effort. Patient does none of the effort to complete the activity. Or, the assistance of 2 or more helpers is required for the patient to complete the activity. If activity was not attempted, code reason: 7-Patient Refused. 9-Not Applicable-not attempted and the patient did not perform the activity before the current illness, exacerbation or injury. 10-Not Attempted due to Environmental Limitations-(lack of equipment, weather restraints, etc.). 88-Not Attempted due to Medical Conditions or Safety Concerns. Bed Mobility: 6 Transfers (B,C,W/C): 6 Gait: 6 Stairs: 6 Indoor Mobility (Ambulation): Independent Stairs: Independent Prior Devices Use: None PT Evaluation-Current Subjective Patient agrees to PT. Pain Numeric Pain Scale: 0-No Pain Location: No Pain Reported Objective Patient Orientation: Person, Time, Situation Attachments: Finch Catheter, IV ROM/Strength ROM Lower Extremities bilateral LE WFL Strength Lower Extremities 4/5 grossly bilateral LE Integumentary/Posture Integumentary refer to nursing notes Bowel Incontinence: No Bladder Incontinence: Finch Cath Posture WFL Neuromuscular (Tone, Coordination, Reflexes) grossly intact Sensory Vision: Functional Hearing: Functional Sensation Right Lower Extremit: Intact Sensation Left Lower Extremity: Intact Transfers Roll Left to Right (QC): 5 Sit to Lying (QC): 5 Lying to Sitting/Side of Bed(Q: 5 Sit to Stand (QC): 5 Chair/Kut-ct-Pnqzm Xfer(QC): 5 Car Transfer (QC): 10 Gait Does the Patient Walk?: Yes Mode of Locomotion: Walk Anticipated Mode of Locomotion: Walk Walk 10 feet (QC): 4 Walk 50 ft with 2 Turns(QC): 4 Walk 150 ft (QC): 4 Walking 10ft/uneven surface-QC: 4 Distance: 275' Gait Assistive Device: FWW Comments/Gait Description safe and functional Wheelchair Training Does the Pt Use a Wheelchair?: No Wheel 50 ft with 2 turns (QC): 9 Wheel 150 ft (QC): 9 Type of Wheelchair: Manual Stairs 1 Step (curb) (QC): 88 4 Steps (QC): 88 12 Steps (QC): 9 Balance Sitting Static: Normal Sitting Dynamic: Normal Standing Static: Normal Standing Dynamic: Normal Picking up an Object (QC): 4 Assessment/Needs 79 y.o. male, will benefit from short term skilled PT to address functional mobility to improve current LOF to safely return to home at maximum LOF. Rehab Potential: Fair PT Nursing Home Goals Manager Engine Goals PT Manager Engine Goals Time Frame: Oct 16, 2019 Roll Left & Right (QC): 6 Sit to Lying (QC): 6 Lying-Sitting on Side/Bed(QC): 6 Sit to Stand (QC): 6 Chair/Eat-xi-Cwcgw Xfer(QC): 6 Toilet Transfer (QC): 6 Car Transfer (QC): 6 Does the Patient Walk: Yes Walk 10 feet (QC): 6 Walk 50ft with 2 Turns (QC): 6 Walk 150 ft (QC): 6 Walking 10ft on Uneven Surface: 6 1 Step (curb) (QC): 6 4 Steps (QC): 6 12 Steps (QC): 9 Picking up an Object (QC): 6 Does the Pt use WC or Scooter?: No Type: N/A Type: N/A PT Plan Problem List Problem List: Safety Treatment/Plan Treatment Plan: Continue Plan of Care Treatment Plan: Bed Mobility, Education, Functional Activity Shannon, Functional Strength, Gait, Safety, Transfers Treatment Duration: Oct 16, 2019 Frequency: 6 times per week Estimated Hrs Per Day: .25 hour per day Patient and/or Family Agrees t: Yes Time/GCodes Time In: 851 Time Out: 905 Total Billed Treatment Time: 14 Total Billed Treatment 1 visit EVModC 14 min RANJITH FIERRO PT Oct 11, 2019 10:36 POS
[2019-10-11] MEDS: PANTOPRAZOLE 20 MG TABLET (PROTONIX) PO SCH (12:32)
[2019-10-11] MEDS: DOCUSATE SODIUM 100 MG (COLACE) CAP PO SCH ×2 (12:32→20:13)
[2019-10-11] MEDS: cloNIDine 0.2 MG (CATAPRES) TAB PO SCH ×2 (12:32→20:13)
[2019-10-11] MEDS: LOSARTAN 100 MG (COZAAR) TABLET PO SCH (12:32)
[2019-10-11] MEDS: meTOprolol SUCCINATE 100 MG (TOPROL XL) TAB PO SCH (12:32)
[2019-10-11] MEDS: ASPIRIN E.C. 81 MG (ECOTRIN) TAB PO SCH (12:33)
[2019-10-11] MEDS: ENOXAPARIN 40 MG/0.4 ML (LOVENOX) SYR SC SCH ×2 (12:33→12:35)
[2019-10-11 12:36] VITALS: BP 138/80
--- NOTE | 2019-10-11 13:22 | Progress Note - Hospitalist ---
Subjective HPI/CC On Admission Date Seen by Provider: Oct 11, 2019 Time Seen by Provider: 08:30 Artie Sethi is an 79-year-old male with past medical history of hypertension, type II diabetes mellitus, coronary artery disease, BPH, GERD, who presented with weakness and hematemesis. He reports having epigastric abdominal pain. He also reports having some chest tightness. He denies any fevers or chills. He denies any trouble breathing or cough. He denies any diarrhea. Subjective/Events-last exam He continues to have epigastric abdominal pain. He denies any other complaints. He denies any fevers and chills. He denies any ongoing nausea, vomiting, or hematemesis. He denies any diarrhea, melena, or hematochezia. He denies any chest pain or shortness of breath. Focused Exam Lactate Level 10/10/19 07:05: Lactic Acid Level 1.39 Objective Exam Vital Signs Vital Signs Date Time Temp Pulse Resp B/P (MAP) Pulse Ox O2 Delivery O2 Flow Rate FiO2 10/11/19 12:36 36.6 102 18 138/80 (99) 97 Room Air 10/10/19 10:45 21 Capillary Refill : Less Than 3 Seconds General Appearance: No Apparent Distress, Obese HEENT: PERRL/EOMI, Pharynx Normal Neck: Normal Inspection, Supple Respiratory: Lungs Clear, Normal Breath Sounds, No Respiratory Distress Cardiovascular: Regular Rate, Rhythm, No Edema, No Murmur Gastrointestinal: Normal Bowel Sounds, Soft, Distended; No Guarding; Tenderness Extremity: Normal Inspection, Non Tender, No Pedal Edema Neurologic/Psychiatric: Alert, Oriented x3, No Motor/Sensory Deficits, Normal Mood/Affect Skin: Normal Color, Warm/Dry Lymphatic: No Adenopathy Results/Procedures Lab Laboratory Tests 10/11/19 02:45 Patient resulted labs reviewed. Imaging: Reviewed Imaging Report Assessment/Plan Assessment and Plan Assess & Plan/Chief Complaint Severe sepsis Elevated LFTs Leukocytosis and tachycardia on admission Elevated AST/ALC and total bilirubin Infectious workup unrevealing Lipase normal CT abdomen with cholelithiasis, concerning for acute cholecystitis Continue Rocephin and Felix General surgery consulted, appreciate assistance NSTEMI Troponin trended upward, peak 1.3, now trending down EKG normal Cardiology consulted, appreciate recommendations Echo with normal ejection fraction and grade 2 diastolic dysfunction CKD stage III Creatinine 2, remains near baseline Avoid nephrotoxins as able Hypertension Continue home meds Type II diabetes mellitus Sliding scale insulin DVT prophylaxis: Lovenox Diagnosis/Problems Diagnosis/Problems (1) Severe sepsis Status: Acute (2) NSTEMI (non-ST elevation myocardial infarction) Status: Acute Clinical Quality Measures DVT/VTE Risk/Contraindication: Risk Factor Score Per Nursin RFS Level Per Nursing on Admit: 4+=Very High MARIO SULLIVAN MD Oct 11, 2019 13:22 POS
--- NOTE | 2019-10-11 15:30 | NUR ---
Initial visit: Engaged in rapport building and offered compassionate presence. Pt is [facility].
[2019-10-11 17:00] VITALS: BP 144/89
[2019-10-11 17:09] LABS: ALBUMIN 3.2 GM/DL (3.2-4.5); BILIRUBIN,DIRECT 4.4 MG/DL (0.0-0.3); BILIRUBIN,INDIRECT 1.3 MG/DL; BILIRUBIN,TOTAL 5.7 MG/DL (0.1-1.0); CALCIUM 8.4 MG/DL (8.5-10.1); CREATININE SERUM 2.4 MG/DL (0.60-1.30); POTASSIUM 4.2 MMOL/L (3.6-5.0); TOTAL PROTEIN 6.9 GM/DL (6.4-8.2)
[2019-10-11] MEDS: TAMSULOSIN 0.4 MG (FLOMAX) CAP PO SCH (18:14)
[2019-10-11 20:15] VITALS: BP 136/73
[2019-10-11 22:33] LABS: CLARITY,URINE SL CLOUDY; COLOR,URINE DARK YELLOW; GLUCOSE, URINE (UA) NEGATIVE (NEGATIVE); KETONES,URINE TRACE (NEGATIVE); LEUKOCYTE ESTERASE ,URINE 1+ (NEGATIVE); NITRITE,URINE NEGATIVE (NEGATIVE); PROTEIN,URINE 1+ (NEGATIVE)
[2019-10-11 22:44] LABS: RBC,URINE 25-50 /HPF; WBC,URINE 25-50 /HPF
[2019-10-11 22:45] LABS: BACTERIA,URINE TRACE /HPF
[2019-10-12] VITALS: BP 129/63
[2019-10-12] MEDS: MELATONIN 3 MG TABLET PO PRN ×2 (00:40→22:21)
[2019-10-12 02:58] LABS: BASOPHILS % (AUTO) 0 % (0-10); EOSINOPHILS # (AUTO) 0.1 10^3/uL (0.0-0.3); EOSINOPHILS % (AUTO) 1 % (0-10); HEMATOCRIT 40 % (40-54); LYMPHOCYTES % (AUTO) 10 % (12-44); MEAN CORPUSCULAR HEMOGLOBIN 29 PG (25-34); MEAN CORPUSCULAR HGB CONC 32 G/DL (32-36); MEAN CORPUSCULAR VOLUME 90 FL (80-99); MEAN PLATELET VOLUME 10.5 FL (7.4-10.4); MONOCYTES # (AUTO) 1.3 X 10^3 (0.0-1.0); MONOCYTES % (AUTO) 14 % (0-12); NEUTROPHILS # (AUTO) 7.1 X 10^3 (1.8-7.8); NEUTROPHILS % (AUTO) 75 % (42-75); PLATELET COUNT 203 10^3/uL (130-400); RED CELL DISTRIBUTION WIDTH 13.5 % (10.0-14.5); WHITE BLOOD COUNT 9.5 10^3/uL (4.3-11.0)
[2019-10-12 03:20] LABS: ALBUMIN 2.9 GM/DL (3.2-4.5); BILIRUBIN,TOTAL 4.4 MG/DL (0.1-1.0); CALCIUM 8.1 MG/DL (8.5-10.1); CREATININE SERUM 2.18 MG/DL (0.60-1.30); POTASSIUM 4.2 MMOL/L (3.6-5.0); TOTAL PROTEIN 6.2 GM/DL (6.4-8.2)
[2019-10-12 04:00] VITALS: BP 129/74
[2019-10-12] MEDS: LACTATED RINGERS 1,000 ML IV SCH ×2 (04:57→14:46)
[2019-10-12] MEDS: inSUlin ASPART (NovoLOG) 1 UNIT/0.01 ML (CHARGE PER UNIT) SC SCH ×4 (05:43→20:42)
[2019-10-12] MEDS: metroNIDAZOLE 500MG/100ML IVPB 100 ML IV SCH ×3 (05:45→20:56)
[2019-10-12] MEDS: ISOSORBIDE MONONITRATE 60 MG (IMDUR) TAB PO SCH (05:45)
[2019-10-12 08:00] VITALS: BP 139/85
--- NOTE | 2019-10-12 08:06 | Progress Note - Surgery ---
JERMAN GARCIA MED STUDENT 10/12/19 0806: Subjective Date Seen by a Provider: Oct 12, 2019 Time Seen by a Provider: 07:20 Subjective/Events-last exam Since he was last seen Mr. Sethi reports feeling about the same, he was able to walk some yesterday but still feels very weak and fatigued. He reports that he has not had any vomiting since yesterday morning, but has not been eating much. He reports his abdominal pain has improved slightly, denied when seen prior to eating, reported having the pain after eating. Review of Systems General: No Chills; Fatigue HEENT: No Sinus Congestion, No Sore Throat Pulmonary: No Dyspnea, No Cough Cardiovascular: No: Chest Pain, Lt Headedness Gastrointestinal: Constipation; No: Nausea, Vomiting Genitourinary: No Dysuria, No Hematuria Neurological: Other (tingling in feet due to neuropathy); No: Numbness Focused Exam Lactate Level 10/10/19 07:05: Lactic Acid Level 1.39 Objective Exam Vital Signs Date Time Temp Pulse Resp B/P (MAP) Pulse Ox O2 Delivery O2 Flow Rate FiO2 10/12/19 07:00 74 10/12/19 04:00 76 16 129/74 (92) 93 Room Air 10/12/19 04:00 Room Air 10/12/19 04:00 36.6 10/12/19 00:41 96 10/12/19 00:00 86 12 129/63 (85) 90 Room Air 10/11/19 23:59 36.6 10/11/19 23:31 Room Air 10/11/19 21:00 Room Air 10/11/19 20:15 93 20 136/73 (94) 94 Room Air 10/11/19 20:00 36.5 10/11/19 20:00 Room Air 10/11/19 18:45 86 10/11/19 18:14 96 Room Air 10/11/19 17:00 97 21 144/89 (107) 97 Room Air 10/11/19 16:00 Room Air 10/11/19 13:00 94 10/11/19 12:36 36.6 102 18 138/80 (99) 97 Room Air 10/11/19 12:00 Room Air I & O 10/12/19 07:00 Intake Total 1920 ml Output Total 900 ml Balance 1020 ml Capillary Refill : Less Than 3 Seconds General Appearance: No Apparent Distress, Obese HEENT: PERRL/EOMI; No Scleral Icterus (L), No Scleral Icterus (R) Neck: Normal Inspection, Supple Respiratory: Lungs Clear, Normal Breath Sounds, No Accessory Muscle Use, No Respiratory Distress Cardiovascular: Regular Rate, Rhythm, No Edema, No Murmur Peripheral Pulses: 2+ Dorsalis Pedis (R), 2+ Left Dors-Pedis (L), 2+ Radial Pulses (R), 2+ Radial Pulses (L) Gastrointestinal: normal bowel sounds, soft, no pulsatile mass, tenderness (RUQ and epigastric to deep palpation ) Extremity: Normal Inspection, Non Tender, No Pedal Edema Neurologic/Psychiatric: Alert, Oriented x3, No Motor/Sensory Deficits, Normal Mood/Affect Skin: Normal Color, Warm/Dry Lymphatic: No Adenopathy Results Lab Laboratory Tests 10/11/19 12:31: Glucometer 152H 10/11/19 16:36: Sodium Level 138, Potassium Level 4.2, Chloride Level 103, Carbon Dioxide Level 23, Anion Gap 12, Blood Urea Nitrogen 29H, Creatinine 2.40H, Estimat Glomerular Filtration Rate 26, BUN/Creatinine Ratio 12, Glucose Level 146H, Calcium Level 8.4L, Total Bilirubin 5.7H, Direct Bilirubin 4.4H, Indirect Bilirubin 1.3, Aspartate Amino Transf (AST/SGOT) 117H, Alanine Aminotransferase (ALT/SGPT) 164H , Alkaline Phosphatase 126, Total Protein 6.9, Albumin 3.2 10/11/19 17:29: Glucometer 126H 10/11/19 20:06: Glucometer 138H 10/11/19 22:26: Urine Color DARK YELLOW, Urine Clarity SL CLOUDY, Urine pH 6.0, Urine Specific [place] 1.015L, Urine Protein 1+H, Urine Glucose (UA) NEGATIVE, Urine Ketones TRACEH, Urine Nitrite NEGATIVE, Urine Bilirubin 2+ icto=pos, Urine Urobilinogen 1.0, Urine Leukocyte Esterase 1+H, Urine RBC (Auto) 2+H, Urine RBC 25-50H, Urine WBC 25-50H, Urine Crystals NONE, Urine Bacteria TRACE, Urine Casts NONE, Urine Mucus NEGATIVE, Urine Culture Indicated YES 10/12/19 02:35: White Blood Count 9.5, Red Blood Count 4.46, Hemoglobin 13.0L, Hematocrit 40, Mean Corpuscular Volume 90, Mean Corpuscular Hemoglobin 29, Mean Corpuscular Hemoglobin Concent 32, Red Cell Distribution Width 13.5, Platelet Count 203, Mean Platelet Volume 10.5H, Neutrophils (%) (Auto) 75, Lymphocytes (%) (Auto) 10L, Monocytes (%) (Auto) 14H, Eosinophils (%) (Auto) 1, Basophils (%) (Auto) 0, Neutrophils # (Auto) 7.1, Lymphocytes # (Auto) 1.0, Monocytes # (Auto) 1.3H, Eosinophils # (Auto) 0.1, Basophils # (Auto) 0.0, Sodium Level 138, Potassium Level 4.2, Chloride Level 104, Carbon Dioxide Level 22, Anion Gap 12, Blood Urea Nitrogen 29H, Creatinine 2.18H, Estimat Glomerular Filtration Rate 29, BUN/Creatinine Ratio 13, Glucose Level 179H, Calcium Level 8.1L, Corrected Calcium 9.0, Total Bilirubin 4.4H, Aspartate Amino Transf (AST/SGOT) 99H, Alanine Aminotransferase (ALT/SGPT) 137H, Alkaline Phosphatase 119, Troponin I 0.287H, Total Protein 6.2L, Albumin 2.9L Microbiology 10/10/19 Blood Culture - Preliminary, Resulted No growth Assessment/Plan Assessment/Plan Assessment/Plan Hematemesis NSTEMI Cholelithiasis w/ cholecystitis Has mild RUQ/epigastric pain with elevated LFTs. Consider EGD. Discuss cholecystectomy with patient if symptoms and elevated LFTs, bilirubin persist. Clinical Quality Measures DVT/VTE Risk/Contraindication: Risk Factor Score Per Nursin RFS Level Per Nursing on Admit: 4+=Very High REGAN HAYES DO 10/12/19 1625: Subjective Time Seen by a Provider: 08:56 Subjective/Events-last exam Pt seen and examined, does not appear to be in any distress. He denied any abdominal pain today and no hematemesis. Pt states he doesn't want an EGD and is not sure he wants surgery to remove GB. Review of Systems Pulmonary: No Dyspnea, No Cough Gastrointestinal: No: Nausea, Vomiting, Abdominal Pain Objective Exam Respiratory: Lungs Clear, Normal Breath Sounds Cardiovascular: Regular Rate, Rhythm, No Murmur Gastrointestinal: soft, no pulsatile mass, tenderness (RUQ and epigastric to deep palpation ) Assessment/Plan Assessment/Plan Assessment/Plan I recommend pt get an EGD and probably would benefit from Cholecystectomy; however, pt is refusing both. He says it was food that caused it and it is gone now. I would be happy to discuss this more in my office when pt follows up. Labs are trending down. Will continue to follow along. Supervisory-Addendum Brief Verification & Attestation Participated in pt care: history, MDM, physical Personally performed: exam, history, MDM Care discussed with: Medical Student Procedures: n/a Verification and Attestation of Medical Student E/M Service A medical student performed and documented this service in my presence. I revi ewed and verified all information documented by the medical student and made modifications to such information, when appropriate. I personally performed the physical exam and medical decision making. Regan Hayes, Oct 12, 2019,16:25 JERMAN GARCIA MED STUDENT Oct 12, 2019 08:06 REGAN GUZMÁN DO Oct 12, 2019 16:25 POS
--- NOTE | 2019-10-12 08:44 | Cardiology Progress Note ---
Subjective Date Seen by Provider: Oct 12, 2019 Time Seen by Provider: 08:43 Subjective/Events-last exam patient is laying down in bed, feeling better, abdominal pain is better, no chest pain Review of Systems General: No Chills, No Night Sweats; Fatigue, Malaise; No Appetite, No Other HEENT: No Head Aches, No Visual Changes, No Eye Pain, No Ear Pain, No Dysphasia, No Sinus Congestion, No Post Nasal Drip, No Sore Throat, No Other Pulmonary: No Dyspnea, No Cough, No Pleuritic Chest Pain, No Other Cardiovascular: No: Chest Pain, Palpitations, Orthopnea, Paroxysmal Noc. Dyspnea, Edema, Lt Headedness, Other Focused Exam Lactate Level 10/10/19 07:05: Lactic Acid Level 1.39 Objective-Cardiology Exam Last Set of Vital Signs Vital Signs 10/10/19 10/12/19 10/12/19 10:45 04:00 08:00 Temp 36.6 Pulse 75 Resp 24 B/P (MAP) 139/85 (103) Pulse Ox 94 O2 Delivery Room Air FiO2 21 Capillary Refill : Less Than 3 Seconds I&O Intake and Output 10/12/19 00:00 Intake Total 3020 ml Output Total 1150 ml Balance 1870 ml Intake Oral 2020 ml IV Total 1000 ml Output Urine Total 1150 ml General: Alert, Oriented X3, Cooperative HEENT: Atraumatic, PERRLA Neck: Supple, No JVD, No Thyromegaly Lungs: Clear to Auscultation, Normal Air Movement Heart: Regular Rate, Normal S1, Normal S2, No Murmurs Abdomen: Normal Bowel Sounds, Soft, No Tenderness, No Hepatosplenomegaly, No Masses Extremities: No Clubbing, No Cyanosis, No Edema, Normal Pulses, No Tenderness/Swelling Skin: No Rashes, No Breakdown, No Significant Lesion Neuro: Normal Gait, Normal Speech, Strength at 5/5 X4 Ext, Normal Tone, Sensation Intact Psych/Mental Status: Mental Status NL, Mood NL Results Lab Laboratory Tests 10/11/19 16:36 10/12/19 02:35 A/P-Cardiology Admission Diagnosis Non-ST elevation myocardial infarctions Coronary artery disease Hypertension Hematemesis Assessment/Plan non-ST elevation myocardial infarction, troponin level is improving, receiving IV fluid, discussed with him the management plan, if his renal function are better I can do diagnostic heart catheter with limited exposure to contrast not to exceed 20 mL of contrast. Next Abdominal pain, reporting improvement, has cholelithiasis, questionable cholecystitis, managed by Dr. Kasper Hematemesis, improved. Managed by Dr. Kasper, continue to monitor H&H Acute on chronic renal failure, underlying chronic kidney disease stage III. Continue with IV fluid and monitor Hypertension, poorly controlled, better controlled today. Continue on current medication monitor blood pressure Diabetes mellitus, followed and managed by primary care physician Elevated liver enzymes. Trending down. Continue to monitor Clinical Quality Measures DVT/VTE Risk/Contraindication: Risk Factor Score Per Nursin RFS Level Per Nursing on Admit: 4+=Very High JINA CHURCH MD Oct 12, 2019 08:44 POS
[2019-10-12] MEDS: cefTRIAXone FOR IV USE 2,000 MG in WATER (STERILE) FOR INJECTION 20 ML IV SCH (08:45)
[2019-10-12] MEDS: DOCUSATE SODIUM 100 MG (COLACE) CAP PO SCH ×2 (08:46→20:53)
[2019-10-12] MEDS: cloNIDine 0.2 MG (CATAPRES) TAB PO SCH ×2 (08:46→20:53)
[2019-10-12] MEDS: meTOprolol SUCCINATE 100 MG (TOPROL XL) TAB PO SCH (08:46)
[2019-10-12] MEDS: ASPIRIN E.C. 81 MG (ECOTRIN) TAB PO SCH (08:46)
[2019-10-12] MEDS: PANTOPRAZOLE 20 MG TABLET (PROTONIX) PO SCH (08:46)
[2019-10-12] MEDS: ENOXAPARIN 40 MG/0.4 ML (LOVENOX) SYR SC SCH (08:46)
[2019-10-12] MEDS: LOSARTAN 100 MG (COZAAR) TABLET PO SCH (08:46)
--- NOTE | 2019-10-12 10:24 | Physical Therapy Daily Note ---
PT Daily Note-Current Subjective Patient reports he is feeling better. Agrees to PT. Pain Numeric Pain Scale: 0-No Pain Location: No Pain Reported Mental Status Patient Orientation: Normal For Age Attachments: Finch Catheter, IV Transfers SCALE: Activities may be completed with or without assistive devices. 4-Xskicaerih-nsarldy completes the activity by him/herself with no assistance from a helper. 5-Set-up or Clean-up Assistance-helper sets up or cleans up; patient completes activity. [place] assists only prior to or following the activity. 4-Supervision or Touching Assistance-helper provides verbal cues and/or touching/steadying and/or contact guard assistance as patient completes ac tivity. Assistance may be provided throughout the activity or intermittently. 3-Partial/Moderate Assistance-helper does LESS THAN HALF the effort. [place] lifts, holds or supports trunk or limbs, but provides less than half the effort. 2-Substantial/Maximal Assistance-helper does MORE THAN HALF the effort. [place] lifts or holds trunk or limbs and provides more than half the effort. 2-Ndmoetlyo-uyppta does ALL the effort. Patient does none of the effort to complete the activity. Or, the assistance of 2 or more helpers is required for the patient to complete the activity. If activity was not attempted, code reason: 7-Patient Refused. 9-Not Applicable-not attempted and the patient did not perform the activity before the current illness, exacerbation or injury. 10-Not Attempted due to Environmental Limitations-(lack of equipment, weather restraints, etc.). 88-Not Attempted due to Medical Conditions or Safety Concerns. Roll Left & Right (QC): 6 Sit to Lying (QC): 6 Lying to Sitting/Side of Bed(Q: 6 Sit to Stand (QC): 6 Chair/Pbe-vb-Delgz Xfer(QC): 6 Weight Bearing Right Lower Extremity: Right Weight Bearing/Tolerated Left Lower Extremity: Left Weight Bearing/Tolerated Gait Training Does the Patient Walk?: Yes Distance: 375' Walk 10 feet (QC): 5 Walk 50 ft with 2 Turns(QC): 5 Walk 150 ft (QC): 5 Gait Assistive Device: FWW safe and functional with FWW (patient will require a FWW upon dismissal from hospital for safety) Exercises Supine Ex: Ankle pumps, Quad Set, Heel Slides Supine Reps: 12 Seated Therapy Exercises: Ankle pumps, Long arc quads Seated Reps: 15 Assessment Patient tolerated treatment well and is up in recliner with needs met. Patient progressing with treatment plan. PT Alf Goals Alf Goals PT Dental Appliance Fixer Goals Time Frame: Oct 16, 2019 Roll Left & Right (QC): 6 Sit to Lying (QC): 6 Lying-Sitting on Side/Bed(QC): 6 Sit to Stand (QC): 6 Chair/Kqx-pq-Hbewq Xfer(QC): 6 Toilet Transfer (QC): 6 Car Transfer (QC): 6 Does the Patient Walk: Yes Walk 10 feet (QC): 6 Walk 50ft with 2 Turns (QC): 6 Walk 150 ft (QC): 6 Walking 10ft on Uneven Surface: 6 1 Step (curb) (QC): 6 4 Steps (QC): 6 12 Steps (QC): 9 Picking up an Object (QC): 6 Does the Pt use WC or Scooter?: No Type: N/A Type: N/A PT Plan Treatment/Plan Treatment Plan: Continue Plan of Care Treatment Plan: Bed Mobility, Education, Functional Activity Shannon, Functional Strength, Gait, Safety, Transfers Treatment Duration: Oct 16, 2019 Frequency: 6 times per week Estimated Hrs Per Day: .25 hour per day Patient and/or Family Agrees t: Yes Time/GCodes Time In: 805 Time Out: 828 Total Billed Treatment Time: 23 Total Billed Treatment 1 visit EX 12 min FA 11 min RANJITH FIERRO PT Oct 12, 2019 10:24 POS
--- NOTE | 2019-10-12 11:46 | Progress Note - Hospitalist ---
Subjective HPI/CC On Admission Date Seen by Provider: Oct 12, 2019 Time Seen by Provider: 08:30 Artie Sethi is an 79-year-old male with past medical history of hypertension, type II diabetes mellitus, coronary artery disease, BPH, GERD, who presented with weakness and hematemesis. He reports having epigastric abdominal pain. He also reports having some chest tightness. He denies any fevers or chills. He denies any trouble breathing or cough. He denies any diarrhea. Subjective/Events-last exam He reports improved abdominal pain. He has not had any ongoing nausea, vomiting, or hematemesis. He denies any fevers or chills. He denies any chest pain. Focused Exam Lactate Level 10/10/19 07:05: Lactic Acid Level 1.39 Objective Exam Vital Signs Vital Signs Date Time Temp Pulse Resp B/P (MAP) Pulse Ox O2 Delivery O2 Flow Rate FiO2 10/12/19 08:00 75 24 139/85 (103) 94 Room Air 10/12/19 04:00 36.6 10/10/19 10:45 21 Capillary Refill : Less Than 3 Seconds General Appearance: No Apparent Distress, Obese HEENT: PERRL/EOMI, Pharynx Normal Neck: Normal Inspection, Supple Respiratory: Lungs Clear, Normal Breath Sounds, No Respiratory Distress Cardiovascular: Regular Rate, Rhythm, No Edema, No Murmur Gastrointestinal: Normal Bowel Sounds, Non Tender, Soft, Distended Extremity: Normal Inspection, Non Tender, No Pedal Edema Neurologic/Psychiatric: Alert, Oriented x3, No Motor/Sensory Deficits, Other (flat affect) Skin: Normal Color, Warm/Dry Lymphatic: No Adenopathy Results/Procedures Lab Laboratory Tests 10/11/19 16:36 10/12/19 02:35 Patient resulted labs reviewed. Imaging: Reviewed Imaging Report Assessment/Plan Assessment and Plan Assess & Plan/Chief Complaint Severe sepsis Elevated LFTs Cholelithiasis CT abdomen with cholelithiasis, concerning for possible acute cholecystitis Continue Rocephin and Felix General surgery consulted, appreciate assistance Abdominal pain and LFTs improving Continue watchful waiting NSTEMI Troponin trended upward, peak 1.3, now trending down EKG normal Cardiology consulted, appreciate recommendations Echo with normal ejection fraction and grade 2 diastolic dysfunction Planning for cardiac catheterization tomorrow NOA on CKD Creatinine peaked at 2.4, trending down today Continue IV fluids Avoid nephrotoxins as able Hypertension Continue home meds Type II diabetes mellitus Sliding scale insulin DVT prophylaxis: Lovenox Diagnosis/Problems Diagnosis/Problems (1) Severe sepsis Status: Acute (2) NSTEMI (non-ST elevation myocardial infarction) Status: Acute Clinical Quality Measures DVT/VTE Risk/Contraindication: Risk Factor Score Per Nursin RFS Level Per Nursing on Admit: 4+=Very High MARIO SULLIVAN MD Oct 12, 2019 11:46 POS
[2019-10-12 12:00] VITALS: BP 116/72
--- NOTE | 2019-10-12 12:55 | Occupational Ther Daily Note ---
OT Current Status-Daily Note Subjective Pt seen in bed sleeping, wakes upon entry. Pt denies pain, hesitantly agreeable to OT tx session. Mental Status/Objective Patient Orientation: Normal For Age ADL-Treatment Therapy Code Descriptions/Definitions Functional [place] Measure: 0=Not Assessed/NA 4=Minimal Assistance 1=Total Assistance 5=Supervision or Setup 2=Maximal Assistance 6=Modified [place] 3=Moderate Assistance 7=Complete IndependenceSCALE: Activities may be completed with or without assistive devices. 6-Mhkvxejtuu-vxhvbkc completes the activity by him/herself with no assistance from a helper. 5-Set-up or Clean-up Assistance-helper sets up or cleans up; patient completes activity. [place] assists only prior to or following the activity. 4-Supervision or Touching Assistance-helper provides verbal cues and/or touch ing/steadying and/or contact guard assistance as patient completes activity. Assistance may be provided throughout the activity or intermittently. 3-Partial/Moderate Assistance-helper does LESS THAN HALF the effort. [place] lifts, holds or supports trunk or limbs, but provides less than half the effort. 2-Substantial/Maximal Assistance-helper does MORE THAN HALF the effort. [place] lifts or holds trunk or limbs and provides more than half the effort. 8-Rjxytwqyi-ysloxn does ALL the effort. Patient does none of the effort to complete the activity. Or, the assistance of 2 or more helpers is required for the patient to complete the activity. If activity was not attempted, code reason: 7-Patient Refused. 9-Not Applicable-not attempted and the patient did not perform the activity before the current illness, exacerbation or injury. 10-Not Attempted due to Environmental Limitations-(lack of equipment, weather restraints, etc.). 88-Not Attempted due to Medical Conditions or Safety Concerns. Eating (QC): 6 (per pt.) Oral Hygiene (QC): 7 Shower/Bathe Self (QC): 7 Toilet Transfer (QC): 7 Other Treatment Pt states very tired and would like to nap soon. Pt agreeable to OT tx session, though denies ADLs or out of bed/ recliner activities. Pt wipes face with wipe with s/u. Pt agreeable to Theraband exercises, completes 3 sets of exercises with 10 reps. Pt completes shoulder external rotations, internal rotations with theraband connected to bed, and shoulder flexion exercises. Pt states he is having a heart cath procedure done tomorrow, states he is doing "fine." Pt states IND prior to hospitalization and continues to drive. Pt completes bed adjustment task with cues for placement of fingers due to decreased vision. Pt left in bed with call light in reach, all needs met, pt in bed. Education OT Patient Education: Correct positioning, Exercise program, Home exercise program Teaching Recipient: Patient Teaching Methods: Demonstration, Discussion Response to Teaching: Verbalize Understanding, Return Demonstration OT Auto Body Customizer Goals Auto Body Customizer Goals Time Frame: Oct 18, 2019 Eating (QC): 6 (met) Oral Hygiene (QC): 6 Toileting Hygiene (QC): 6 Shower/Bathe Self (QC): 5 Upper Body Dressing (QC): 5 Lower Body Dressing (QC): 5 On/Off Footwear (QC): 5 Additional Goals: 1-Demonstrate ADL Tasks, 2-Verbalize Understanding, 3- ImproveStrength/Shannon 1=Demonstrate adherence to instructed precautions during ADL tasks. 2=Patient will verbalize/demonstrate understanding of assistive devices/mod ifications for ADL. 3=Patient will improve strength/tolerance for activity to enable patient to perform ADL's. OT Education/Plan Problem List/Assessment Assessment: Decreased Activ Tolerance, Impaired Funct Balance, Impaired I ADL's, Impaired Self-Care Skills Pt would benefit from skilled OT to increase his independence in basic self care and his activity tolerance Discharge Recommendations Plan/Recommendations: Continue POC Treatment Plan/Plan of Care Treatment,Training & Education: Yes Patient would benefit from OT for education, treatment and training to promote independence in ADL's, mobility, safety and/or upper extremity function for ADL's. Plan of Care: ADL Retraining, OTHER (Energy conservation techniques) Treatment Duration: Oct 18, 2019 Frequency: 5 times per week Estimated Hrs Per Day: .25 hour per day Agreement: Yes Rehab Potential: Good Time/GCodes Start Time: 12:45 Stop Time: 12:53 Total Time Billed (hr/min): 8 Billed Treatment Time 1, EX (8) JONAS KHAN OTR Oct 12, 2019 12:55 POS
--- NOTE | 2019-10-12 13:21 | NUR ---
RD ASSESSMENT PMHx: T2DM; CAD; BPH; GERD; HTN; CKD(stage 3) PT INTERACTION: Pt was awake and pleasant during nutrition assessment. Pt states current appetite is poor and has been since admit. Note pt avg PO intake of <50% x2d, per chart review. Pt states being a diabetic and while "not trying to follow a specific diet, I try to watch what I eat." Pt states some difficulty chewing, attributing it to poor teeth. Pt states some issues swallowing, attributing it to a hiatal hernia. Pt states episodes of vomiting beginning on 10/09. Note pt current admission is for hematemesis, per chart review. Pt states recent issues with constipation, but feels it resolves when he consumes more water. Pt states last BM was 10/09, and note pt currently on bowel regimen of colace BID; miralax PRN; and bisacodyl PRN, per chart review. Pt states recent wt gain of "a couple of pounds" x6mon. Note 69# wt gain x11mon, per chart review. Pt states current DM management is "pretty good." Pt states last HbA1c was 8.2, taken 3mon ago. Pt states normal fasting blood glucose is aroung 140, and sometimes stays elevated to 200 throughout the day. Pt states some issues with injecting his insulin. Pt states current insulin is Levemir and he injects in his abdomen. ABNORMAL NUTRITION-RELATED LAB VALUES LOW: Pro 6.2; alb 2.9 HIGH: BUN 29; cr 2.18; glu 179; bili 4.4; ALT 99; alkphos 137 Est. kcal needs: 5527-9979 kcal | 15-18 kcal/kg Est. Pro needs: 98-122 g Pro | 0.8-1.0 g Pro/kg PES STATEMENT: Inadequate oral intake (NI-2.1) related to loss of appetite | hematemesis | constipation as evidenced by pt interview | avg PO intake <50% x2d INTERVENTION: Continue with current diet order of CHO 60g/m 3snack diet. Add Glucerna (vary) to meals BID. Provides 220 kcal and 10 g Pro per serving. Discussed with pt current CHO intake and consistent CHO choices. Pt expressed concern with amounts of CHO on his trays and fears of hyperglycemia. Assured pt that glucose levels would not spike d/t CHO amount on his tray. Discussed physical activity and its relationship to blood pressure and blood glucose levels. Recommended 30 min/day 3x/week of moderate physical activity, and discussed its benefits. Will continue to follow and reassess pt as needs and status change. MONITOR/EVALUATE: PO Intake; Plan of Care; Hydration Status; Weight Status; Lab Values Kaylin Alcaraz, MS, RD, LD
--- NOTE | 2019-10-12 14:17 | NUR ---
Rec'd pt to 509 in fair condition.
--- NOTE | 2019-10-12 15:50 | NUR ---
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
[2019-10-12 16:00] VITALS: BP 136/80
[2019-10-12] MEDS: TAMSULOSIN 0.4 MG (FLOMAX) CAP PO SCH (18:41)
[2019-10-12 20:00] VITALS: BP 137/79
[2019-10-13] VITALS: BP 130/71
[2019-10-13] MEDS: LACTATED RINGERS 1,000 ML IV SCH ×2 (01:30→09:20)
[2019-10-13 03:31] LABS: BASOPHILS % (AUTO) 0 % (0-10); EOSINOPHILS # (AUTO) 0.2 10^3/uL (0.0-0.3); EOSINOPHILS % (AUTO) 3 % (0-10); HEMATOCRIT 40 % (40-54); HEMOGLOBIN 12.8 G/DL (13.3-17.7); LYMPHOCYTES # (AUTO) 1.3 X 10^3 (1.0-4.0); LYMPHOCYTES % (AUTO) 16 % (12-44); MEAN CORPUSCULAR HEMOGLOBIN 29 PG (25-34); MEAN CORPUSCULAR HGB CONC 32 G/DL (32-36); MEAN CORPUSCULAR VOLUME 90 FL (80-99); MEAN PLATELET VOLUME 10.6 FL (7.4-10.4); MONOCYTES % (AUTO) 13 % (0-12); NEUTROPHILS # (AUTO) 5.5 X 10^3 (1.8-7.8); NEUTROPHILS % (AUTO) 68 % (42-75); PLATELET COUNT 190 10^3/uL (130-400); RED CELL DISTRIBUTION WIDTH 13.9 % (10.0-14.5); WHITE BLOOD COUNT 8.1 10^3/uL (4.3-11.0)
[2019-10-13 03:57] LABS: ALBUMIN 2.9 GM/DL (3.2-4.5); BILIRUBIN,TOTAL 2.8 MG/DL (0.1-1.0); CALCIUM 7.9 MG/DL (8.5-10.1); CREATININE SERUM 2.05 MG/DL (0.60-1.30); POTASSIUM 4.3 MMOL/L (3.6-5.0); TOTAL PROTEIN 6.2 GM/DL (6.4-8.2)
[2019-10-13 04:00] VITALS: BP 132/74
[2019-10-13] MEDS: inSUlin ASPART (NovoLOG) 1 UNIT/0.01 ML (CHARGE PER UNIT) SC SCH ×2 (05:44→12:54)
[2019-10-13] MEDS: ISOSORBIDE MONONITRATE 60 MG (IMDUR) TAB PO SCH (05:50)
[2019-10-13] MEDS: metroNIDAZOLE 500MG/100ML IVPB 100 ML IV SCH ×2 (05:50→14:43)
--- NOTE | 2019-10-13 07:46 | Progress Note - Surgery ---
JERMAN GARCIA MED STUDENT 10/13/19 0746: Subjective Date Seen by a Provider: Oct 13, 2019 Time Seen by a Provider: 07:30 Subjective/Events-last exam Since he was seen yesterday, Mr. Sethi reports he feels worse than yesterday due to congestion and lack of sleep. He denies having any more nausea or abdominal pain. Today he reports that he had similar epigastric pain twice before the event that brought him to the ER, which he thinks was brought on by soda and orange juice. The first event lasted less than a minute, and the second event lasted about two minutes, both were only mildly painful and neither was associated with nausea. Review of Systems General: No Chills; Fatigue HEENT: Sinus Congestion; No Sore Throat Pulmonary: No Dyspnea; Cough Cardiovascular: No: Chest Pain Gastrointestinal: No: Nausea, Vomiting, Abdominal Pain Neurological: No: Weakness, Change in speech Objective Exam Vital Signs Date Time Temp Pulse Resp B/P (MAP) Pulse Ox O2 Delivery O2 Flow Rate FiO2 10/13/19 04:00 73 10 132/74 (93) Room Air 10/13/19 03:30 35.7 95 Room Air 10/13/19 03:30 Room Air 10/13/19 00:46 75 10/13/19 00:00 Room Air 10/13/19 00:00 36.4 10/13/19 00:00 74 22 130/71 (90) Room Air 10/12/19 21:00 Room Air 10/12/19 20:00 Room Air 10/12/19 20:00 76 23 137/79 (98) 95 Room Air 10/12/19 20:00 36.6 10/12/19 18:42 74 10/12/19 16:00 75 23 136/80 (98) 94 Room Air 10/12/19 16:00 Room Air 10/12/19 12:46 75 10/12/19 12:00 68 8 116/72 (87) 96 Room Air 10/12/19 12:00 Room Air 10/12/19 09:00 Room Air 10/12/19 08:00 75 24 139/85 (103) 94 Room Air 10/12/19 08:00 Room Air I & O 10/13/19 07:00 Intake Total 3010 ml Output Total 1025 ml Balance 1985 ml Capillary Refill : Less Than 3 Seconds General Appearance: No Apparent Distress, Obese HEENT: PERRL/EOMI; No Scleral Icterus (L), No Scleral Icterus (R) Neck: Normal Inspection, Supple Respiratory: Lungs Clear, No Accessory Muscle Use, No Respiratory Distress, Wheezing Cardiovascular: Regular Rate, Rhythm, No Murmur, Normal Peripheral Pulses Peripheral Pulses: 2+ Dorsalis Pedis (R), 2+ Left Dors-Pedis (L), 2+ Radial Pulses (R), 2+ Radial Pulses (L) Gastrointestinal: soft, no pulsatile mass, tenderness (RUQ and epigastric to deep palpation ) Extremity: Normal Inspection, Non Tender, No Pedal Edema Neurologic/Psychiatric: Alert, Oriented x3, No Motor/Sensory Deficits, Other (flat affect) Skin: Normal Color, Warm/Dry Lymphatic: No Adenopathy Results Lab Laboratory Tests 10/12/19 11:28: Glucometer 158H 10/12/19 16:06: Glucometer 212H 10/12/19 20:16: Glucometer 175H 10/13/19 03:10: White Blood Count 8.1, Red Blood Count 4.41, Hemoglobin 12.8L, Hematocrit 40, Mean Corpuscular Volume 90, Mean Corpuscular Hemoglobin 29, Mean Corpuscular Hemoglobin Concent 32, Red Cell Distribution Width 13.9, Platelet Count 190, Mean Platelet Volume 10.6H, Neutrophils (%) (Auto) 68, Lymphocytes (%) (Auto) 16, Monocytes (%) (Auto) 13H, Eosinophils (%) (Auto) 3, Basophils (%) (Auto) 0, Neutrophils # (Auto) 5.5, Lymphocytes # (Auto) 1.3, Monocytes # (Auto) 1.0, Eosinophils # (Auto) 0.2, Basophils # (Auto) 0.0, Sodium Level 137, Potassium Level 4.3, Chloride Level 107, Carbon Dioxide Level 20L, Anion Gap 10, Blood Urea Nitrogen 29H, Creatinine 2.05H, Estimat Glomerular Filtration Rate 31, BUN/Creatinine Ratio 14, Glucose Level 166H, Calcium Level 7.9L, Corrected Calcium 8.8, Total Bilirubin 2.8H, Aspartate Amino Transf (AST/SGOT) 77H, Alanine Aminotransferase (ALT/SGPT) 107H, Alkaline Phosphatase 125, Total Pro tein 6.2L, Albumin 2.9L Microbiology 10/10/19 Blood Culture - Preliminary, Resulted No growth 10/11/19 Urine Culture - Final, Complete NO GROWTH Assessment/Plan Assessment/Plan Assessment/Plan Epigastric pain w/ nausea and hematemesis NSTEMI Elevated LFTs Cholelithiasis Discuss benefits of EGD w/ patient, who believes he has an ulcer that is agitated by food. Discuss benefits of Cholecystectomy as well. Labs continue to trend down. Clinical Quality Measures DVT/VTE Risk/Contraindication: Risk Factor Score Per Nursin RFS Level Per Nursing on Admit: 4+=Very High REGAN HAYES DO 10/13/19 1605: Subjective Time Seen by a Provider: 15:33 Subjective/Events-last exam Pt seen and examined, he was just about to go home. States he thinks coffee is giving him an ulcer. Objective Exam Respiratory: Lungs Clear, No Accessory Muscle Use Cardiovascular: Regular Rate, Rhythm, No Murmur Gastrointestinal: non tender, soft Assessment/Plan Assessment/Plan Assessment/Plan I told pt that my office would call him to set up an appt to discuss EGD and cholecystectomy; he could do one, both or neither.....that is up to him. Supervisory-Addendum Brief Verification & Attestation Participated in pt care: history, MDM, physical Personally performed: exam, history, MDM Care discussed with: Medical Student Procedures: n/a Verification and Attestation of Medical Student E/M Service A medical student performed and documented this service in my presence. I reviewed and verified all information documented by the medical student and made modifications to such information, when appropriate. I personally performed the physical exam and medical decision making. Regan Hayes, Oct 13, 2019,16:04 JERMAN GARCIA MED STUDENT Oct 13, 2019 07:46 REGAN GUZMÁN DO Oct 13, 2019 16:05 POS
--- NOTE | 2019-10-13 07:54 | Cardiology Progress Note ---
Subjective Date Seen by Provider: Oct 13, 2019 Time Seen by Provider: 07:51 Subjective/Events-last exam Patient is sitting in bed, comfortably, had a long discussion with him about the cardiac catheterization, I offered him to do diagnostic heart catheter with minimal exposure to contrast, patient does not want the procedure done and he elected medical therapy. He denied any chest pain, no shortness of breath, having some sinus congestion Review of Systems General: No Chills, No Night Sweats; Fatigue; No Malaise, No Appetite, No Other HEENT: No Head Aches, No Visual Changes, No Eye Pain, No Ear Pain, No Dysphasia, No Sinus Congestion, No Post Nasal Drip, No Sore Throat, No Other Pulmonary: Dyspnea; No Cough, No Pleuritic Chest Pain, No Other Cardiovascular: No: Chest Pain, Palpitations, Orthopnea, Paroxysmal Noc. Dyspnea, Edema, Lt Headedness, Other Objective-Cardiology Exam Last Set of Vital Signs Vital Signs 10/10/19 10/13/19 10:45 04:00 Pulse 73 Resp 10 B/P (MAP) 132/74 (93) O2 Delivery Room Air FiO2 21 Capillary Refill : Less Than 3 Seconds I&O Intake and Output 10/13/19 00:00 Intake Total 3410 ml Output Total 875 ml Balance 2535 ml Intake Oral 1310 ml IV Total 2100 ml Output Urine Total 875 ml General: Alert, Oriented X3, Cooperative HEENT: Atraumatic, PERRLA Neck: Supple, No JVD, No Thyromegaly Lungs: Clear to Auscultation, Normal Air Movement Heart: Regular Rate, Normal S1, Normal S2, No Murmurs Abdomen: Normal Bowel Sounds, Soft, No Tenderness, No Hepatosplenomegaly, No Masses Extremities: No Clubbing, No Cyanosis, No Edema, Normal Pulses, No Tenderness/Swelling Skin: No Rashes, No Breakdown, No Significant Lesion Neuro: Normal Gait, Normal Speech, Strength at 5/5 X4 Ext, Normal Tone, Sensation Intact Psych/Mental Status: Mental Status NL, Mood NL Results Lab Laboratory Tests 10/13/19 03:10 A/P-Cardiology Admission Diagnosis Non-ST elevation myocardial infarctions Coronary artery disease Hypertension Hematemesis Assessment/Plan Non-ST elevation myocardial infarction, was planning to do diagnostic cardiac catheterization today, patient does not want the procedure, requested medical therapy. Continue aspirin. Resume diet Abdominal pain, reporting improvement, has cholelithiasis, questionable cholecystitis, managed by Dr. Kasper Hematemesis, improved. Managed by Dr. Kasper, monitor H&H Acute on chronic renal failure, underlying chronic kidney disease stage III. Continue with IV fluid and monitor Hypertension, better controlled, continue to monitor Diabetes mellitus, followed and managed by primary care physician Hyperlipidemia, had elevated liver enzymes, planning to start on statin once his liver enzymes are back to normal Elevated liver enzymes. Trending down. Continue to monitor Clinical Quality Measures DVT/VTE Risk/Contraindication: Risk Factor Score Per Nursin RFS Level Per Nursing on Admit: 4+=Very High JINA CHURCH MD Oct 13, 2019 07:54 POS
[2019-10-13 08:00] VITALS: BP 157/86
[2019-10-13 08:15] LABS: CHOLESTEROL 107 MG/DL (< 200); HDL CHOLESTEROL 16 MG/DL (40-60); TRIGLYCERIDES 119 MG/DL (<150); VLDL CHOLESTEROL 24 MG/DL (5-40)
--- NOTE | 2019-10-13 09:04 | Physical Therapy Daily Note ---
PT Daily Note-Current Subjective Patient in bed pre tx, agrees to PT, has no complaints of pain just states he is cold and feels like he is getting sick. Appearance Patient in chair at bedside post tx with nurse call, phone, tray, all needs met. Mental Status Patient Orientation: Person, Place, Situation Attachments: Finch Catheter, IV Transfers SCALE: Activities may be completed with or without assistive devices. 7-Uckswzqzsl-epemiys completes the activity by him/herself with no assistance from a helper. 5-Set-up or Clean-up Assistance-helper sets up or cleans up; patient completes activity. [place] assists only prior to or following the activity. 4-Supervision or Touching Assistance-helper provides verbal cues and/or touching/steadying and/or contact guard assistance as patient completes activity. Assistance may be provided throughout the activity or intermittently. 3-Partial/Moderate Assistance-helper does LESS THAN HALF the effort. [place] lifts, holds or supports trunk or limbs, but provides less than half the effort. 2-Substantial/Maximal Assistance-helper does MORE THAN HALF the effort. [place] lifts or holds trunk or limbs and provides more than half the effort. 3-Xjkocrjcx-tqyqxe does ALL the effort. Patient does none of the effort to complete the activity. Or, the assistance of 2 or more helpers is required for the patient to complete the activity. If activity was not attempted, code reason: 7-Patient Refused. 9-Not Applicable-not attempted and the patient did not perform the activity before the current illness, exacerbation or injury. 10-Not Attempted due to Environmental Limitations-(lack of equipment, weather restraints, etc.). 88-Not Attempted due to Medical Conditions or Safety Concerns. Roll Left & Right (QC): 6 Lying to Sitting/Side of Bed(Q: 6 Sit to Stand (QC): 6 Chair/Hrq-dl-Phfsi Xfer(QC): 6 Some slight dizziness immediately upon standing that resolved in a matter of seconds. Weight Bearing Right Lower Extremity: Right Weight Bearing/Tolerated Left Lower Extremity: Left Weight Bearing/Tolerated Gait Training Distance: 200' Walk 10 feet (QC): 5 Walk 50 ft with 2 Turns(QC): 5 Walk 150 ft (QC): 5 Gait Assistive Device: FWW Slow but steady ambulation Exercises Seated Therapy Exercises: Ankle pumps, Long arc quads Seated Reps: 15 Treatments LE exercise, bed mobility and transfers, ambulation Assessment Current Status: Fair Progress less distance of ambulation, patient states he feels like he is getting ill PT [place] Operator Goals [place] Operator Goals PT [place] Operator Goals Time Frame: Oct 16, 2019 Roll Left & Right (QC): 6 Sit to Lying (QC): 6 Lying-Sitting on Side/Bed(QC): 6 Sit to Stand (QC): 6 Chair/Uui-ap-Wbpzk Xfer(QC): 6 Toilet Transfer (QC): 6 Car Transfer (QC): 6 Does the Patient Walk: Yes Walk 10 feet (QC): 6 Walk 50ft with 2 Turns (QC): 6 Walk 150 ft (QC): 6 Walking 10ft on Uneven Surface: 6 1 Step (curb) (QC): 6 4 Steps (QC): 6 12 Steps (QC): 9 Picking up an Object (QC): 6 Does the Pt use WC or Scooter?: No Type: N/A Type: N/A PT Plan Problem List Problem List: Activity Tolerance, Functional Strength, Safety, Balance, Gait, Transfer Treatment/Plan Treatment Plan: Continue Plan of Care Treatment Plan: Bed Mobility, Education, Functional Activity Shannon, Functional Strength, Gait, Safety, Transfers Treatment Duration: Oct 16, 2019 Frequency: 6 times per week Estimated Hrs Per Day: .25 hour per day Patient and/or Family Agrees t: Yes Safety Risks/Education Patient Education: Gait Training, Transfer Techniques, Correct Positioning, Safety Issues Teaching Recipient: Patient Teaching Methods: Demonstration, Discussion Response to Teaching: Reinforcement Needed Time/GCodes Time In: 0837 Time Out: 0854 Total Billed Treatment Time: 17 Total Billed Treatment 1 visit FA STEVEN ENG PT Oct 13, 2019 09:04 POS
[2019-10-13] MEDS: ENOXAPARIN 40 MG/0.4 ML (LOVENOX) SYR SC SCH (09:19)
[2019-10-13] MEDS: LOSARTAN 100 MG (COZAAR) TABLET PO SCH (09:19)
[2019-10-13] MEDS: cloNIDine 0.2 MG (CATAPRES) TAB PO SCH (09:19)
[2019-10-13] MEDS: ASPIRIN E.C. 81 MG (ECOTRIN) TAB PO SCH (09:19)
[2019-10-13] MEDS: meTOprolol SUCCINATE 100 MG (TOPROL XL) TAB PO SCH (09:19)
[2019-10-13] MEDS: PANTOPRAZOLE 20 MG TABLET (PROTONIX) PO SCH (09:19)
[2019-10-13] MEDS: DOCUSATE SODIUM 100 MG (COLACE) CAP PO SCH (09:19)
[2019-10-13] MEDS: cefTRIAXone FOR IV USE 2,000 MG in WATER (STERILE) FOR INJECTION 20 ML IV SCH (09:20)
--- NOTE | 2019-10-13 09:50 | NUR ---
THIS NURSE NOTIFIED DR SULLIVAN PT WAS C/O DIFFICULTY BREATHING AND NURSE ASSESSED CRACKLES IN LUNGS. NO NEW ORDERS AT THIS TIME.
--- NOTE | 2019-10-13 10:18 | Occupational Ther Daily Note ---
OT Current Status-Daily Note Subjective Pt alert, lying in bed. Pt stated that he had caught a cold and was tired and didn't want to get OOB. Pt agrees to therapy. Mental Status/Objective Patient Orientation: Person, Place, Time, Situation Attachments: IV, Oxygen, SCD's, Telemetry ADL-Treatment Pt declined sponge bath, oral care. Therapy Code Descriptions/Definitions Functional [place] Measure: 0=Not Assessed/NA 4=Minimal Assistance 1=Total Assistance 5=Supervision or Setup 2=Maximal Assistance 6=Modified [place] 3=Moderate Assistance 7=Complete IndependenceSCALE: Activities may be completed with or without assistive devices. 2-Raijlvlpfm-bxlodjr completes the activity by him/herself with no assistance from a helper. 5-Set-up or Clean-up Assistance-helper sets up or cleans up; patient completes activity. [place] assists only prior to or following the activity. 4-Supervision or Touching Assistance-helper provides verbal cues and/or touching/steadying and/or contact guard assistance as patient completes activity. Assistance may be provided throughout the activity or intermittently. 3-Partial/Moderate Assistance-helper does LESS THAN HALF the effort. [place] lifts, holds or supports trunk or limbs, but provides less than half the effort. 2-Substantial/Maximal Assistance-helper does MORE THAN HALF the effort. [place] lifts or holds trunk or limbs and provides more than half the effort. 9-Jpaqmpvln-ciwugz does ALL the effort. Patient does none of the effort to complete the activity. Or, the assistance of 2 or more helpers is required for the patient to complete the activity. If activity was not attempted, code reason: 7-Patient Refused. 9-Not Applicable-not attempted and the patient did not perform the activity before the current illness, exacerbation or injury. 10-Not Attempted due to Environmental Limitations-(lack of equipment, weather restraints, etc.). 88-Not Attempted due to Medical Conditions or Safety Concerns. Other Treatment Pt agrees to complete UE exercises in supine. Theraband exercises completed wi th minimal resistance due to pt's fatigue and c/o of sore L shldr, stated that he slept on it wrong. Pt required skilled instruction for modifications, type of exercises and technique. Pt took recovery breaks between each set due to decreased activity tolerance. Pt was able to tolerate 2 UE exercises, 3 sets 5 reps before stopping. After therapy, pt lying in bed with call light/phone in reach. All needs met in room. OT Fpc Goals Fpc Goals Time Frame: Oct 18, 2019 Eating (QC): 6 (met) Oral Hygiene (QC): 6 Toileting Hygiene (QC): 6 Shower/Bathe Self (QC): 5 Upper Body Dressing (QC): 5 Lower Body Dressing (QC): 5 On/Off Footwear (QC): 5 Additional Goals: 1-Demonstrate ADL Tasks, 2-Verbalize Understanding, 3- ImproveStrength/Shannon 1=Demonstrate adherence to instructed precautions during ADL tasks. 2=Patient will verbalize/demonstrate understanding of assistive devices/modifications for ADL. 3=Patient will improve strength/tolerance for activity to enable patient to perform ADL's. OT Education/Plan Problem List/Assessment Assessment: Decreased Activ Tolerance, Decreased UE Strength Pt would benefit from skilled OT to increase his independence in basic self care and his activity tolerance Discharge Recommendations Plan/Recommendations: Continue POC Treatment Plan/Plan of Care Patient would benefit from OT for education, treatment and training to promote independence in ADL's, mobility, safety and/or upper extremity function for ADL's. Plan of Care: ADL Retraining, OTHER (Energy conservation techniques) Treatment Duration: Oct 18, 2019 Frequency: 5 times per week Estimated Hrs Per Day: .25 hour per day Agreement: Yes Rehab Potential: Good Time/GCodes Start Time: 09:52 Stop Time: 10:08 Total Time Billed (hr/min): 16 Billed Treatment Time 1 visit-EX 1 (16 min) BEBETO EUCEDA Oct 13, 2019 10:17 POS
[2019-10-13] MEDS ORDERED: ASPI-983 PO (11:59)
[2019-10-13 12:00] VITALS: BP 127/77
--- NOTE | 2019-10-13 13:30 | NUR ---
DR CHURCH IS OKAY WITH DC. FOLLOW UP IN 2 WEEKS.
--- NOTE | 2019-10-13 15:00 | NUR ---
NURSE DISCONTINUED MANCILLA CATH. PT ENCOURAGED TO VOID. PT VOIDED MINIMAL INTO URINAL. PT STATED HE DID NOT FEEL LIKE HE HAD TO GO.
--- NOTE | 2019-10-13 15:17 | Discharge Summary ---
Discharge Summary Hospital Course Problems/Dx: (1) Severe sepsis Status: Resolved (2) NSTEMI (non-ST elevation myocardial infarction) Status: Acute Hospital Course Date of Admission: Oct 10, 2019 at 08:50 Admission Diagnosis : severe sepsis Family Physician/Provider: Ifeanyi Thurman MD Date of Discharge: 10/13/19 Discharge Diagnosis: NSTEMI, cholelithiasis Hospital Course: Artie Sethi is an 79-year-old male with past medical history of hypertension, type II diabetes mellitus, coronary artery disease, BPH, GERD, who presented with abdominal pain and was admitted with severe sepsis. He reported an episode of vomiting bright red blood prior to admission. His main complaint was weakness. His infectious workup was unrevealing and no source was identified. He was treated with ceftriaxone and Flagyl while inpatient. CT abdomen revealed cholelithiasis and elevated liver enzymes raised concern for choledocholithiasis. General surgery was consulted and recommended EGD for further evaluation. The patient did not want to pursue this. They also recommended pursuing cholecystectomy, but the patient again declined. His course was complicated by NSTEMI and cardiology was consulted. They recommended cardiac catheterization but he refused due to his chronic kidney disease. His LFTs and troponin trended down. His symptoms resolved prior to discharge. He was started on baby aspirin and will follow up with cardiology and couple weeks. He should follow-up with his primary care physician in about a week. Labs and Pending Lab Test: Laboratory Tests 10/12/19 16:06: Glucometer 212H 10/12/19 20:16: Glucometer 175H 10/13/19 03:10: White Blood Count 8.1, Red Blood Count 4.41, Hemoglobin 12.8L, Hematocrit 40, Mean Corpuscular Volume 90, Mean Corpuscular Hemoglobin 29, Mean Corpuscular Hemoglobin Concent 32, Red Cell Distribution Width 13.9, Platelet Count 190, Mean Platelet Volume 10.6H, Neutrophils (%) (Auto) 68, Lymphocytes (%) (Auto) 16, Monocytes (%) (Auto) 13H, Eosinophils (%) (Auto) 3, Basophils (%) (Auto) 0, Neutrophils # (Auto) 5.5, Lymphocytes # (Auto) 1.3, Monocytes # (Auto) 1.0, Eosinophils # (Auto) 0.2, Basophils # (Auto) 0.0, Sodium Level 137, Potassium Level 4.3, Chloride Level 107, Carbon Dioxide Level 20L, Anion Gap 10, Blood Urea Nitrogen 29H, Creatinine 2.05H, Estimat Glomerular Filtration Rate 31, BUN/Creatinine Ratio 14, Glucose Level 166H, Calcium Level 7.9L, Corrected Calcium 8.8, Total Bilirubin 2.8H, Aspartate Amino Transf (AST/SGOT) 77H, Alanine Aminotransferase (ALT/SGPT) 107H, Alkaline Phosphatase 125, Total Protein 6.2L, Albumin 2.9L, Triglycerides Level 119, Cholesterol Level 107, LDL Cholesterol Direct 65, VLDL Cholesterol 24, HDL Cholesterol 16L 10/13/19 10:46: Glucometer 186H Microbiology 10/10/19 Blood Culture - Preliminary, Resulted No growth 10/11/19 Urine Culture - Final, Complete NO GROWTH Home Meds Active Aspirin EC (Aspirin) 81 Mg Tablet.dr 81 Mg PO DAILY 30 Days Reported Levemir Flextouch (Insulin Detemir) 100 Unit/1 Ml Insuln.pen 29 Unit SQ HS Levemir Flextouch (Insulin Detemir) 100 Unit/1 Ml Insuln.pen 32 Units SC DAILY Senna-S Tablet (Sennosides/Docusate Sodium) 1 Each Tablet 2 Tab PO HS Preservision Areds 2 Softgel (Vit C/E/Zn/Coppr/Lutein/Zeaxan) 1 Each Capsule 1 Cap PO BID Isosorbide Mononitrate ER (Isosorbide Mononitrate) 120 Mg Tab.er.24h 120 Mg PO DAILY Omeprazole 20 Mg Capsule. 20 Mg PO DAILY Tradjenta (Linagliptin) 5 Mg Tablet 5 Mg PO DAILY Flomax (Tamsulosin HCl) 0.4 Mg Cap 0.4 Mg PO DAILY Losartan Potassium 100 Mg Tablet 100 Mg PO DAILY Tramadol HCl 50 Mg Tablet 50 Mg PO DAILY PRN Spironolactone 25 Mg Tablet 25 Mg PO DAILY Metoprolol Succinate 100 Mg Tab.er.24h 100 Mg PO DAILY Furosemide 40 Mg Tablet 40 Mg PO DAILY Clonidine HCl 0.2 Mg Tablet 0.2 Mg PO HS Assessment/Pt Instructions take medications as prescribed. Follow up with her primary care physician in about a week. Return with chest pain, abdominal pain, or if you feel like you're getting worse. Discharge Planning: <30 minutes discharge planning Discharge Instructions Discharge Diet: No Restrictions Activity as Tolerated: Yes Discharge Physical Examination Vital Signs Vital Signs Date Time Temp Pulse Resp B/P (MAP) Pulse Ox O2 Delivery O2 Flow Rate FiO2 10/13/19 13:00 90 10/13/19 12:14 95 Room Air 10/13/19 12:00 36.4 14 127/77 (94) 10/10/19 10:45 21 General Appearance: No Apparent Distress, WD/WN, Obese HEENT: PERRL/EOMI, Pharynx Normal Respiratory: Lungs Clear, Normal Breath Sounds, No Respiratory Distress Cardiovascular: Regular Rate, Rhythm, No Edema, No Murmur Gastrointestinal: Normal Bowel Sounds, Non Tender, Soft Extremity: Normal Inspection, Non Tender, Pedal Edema Skin: Normal Color, Warm/Dry Neurologic/Psychiatric: Alert, Oriented x3, No Motor/Sensory Deficits Allergies: Coded Allergies: Sulfa (Sulfonamide Antibiotics) (Unverified Allergy, Unknown, 10/10/19) Discharge Summary Date of Admission Oct 10, 2019 at 08:50 Date of Discharge Discharge Date: Oct 13, 2019 Discharge Time: 15:15 Admission Diagnosis Severe sepsis Consults/Procedures Consulations Cardiology, General surgery Discharge Diagnosis Cholelithiasis with possible choledocholithiasis, NSTEMI, NOA on CKD (1) NSTEMI (non-ST elevation myocardial infarction) Status: Acute (2) Severe sepsis Status: Resolved (3) Acute kidney injury superimposed on chronic kidney disease Status: Acute (4) Cholelithiasis Status: Acute Qualifiers: Qualified Codes: K80.20 - Calculus of gallbladder without cholecystitis without obstruction Clinical Quality Measures DVT/VTE Risk/Contraindication: Risk Factor Score Per Nursin RFS Level Per Nursing on Admit: 4+=Very High MARIO SULLIVAN MD Oct 13, 2019 15:14 POS
[2019-10-13 15:35] VITALS: BP 127/77
--- NOTE | 2019-10-13 15:58 | NUR ---
THIS NURSE EDUCATED PT AND FAMILY ON DISCHARGE INSTRUCTIONS AND THE IMPORTANCE OF FOLLOWING UP WITH DR CHURCH AND PRIMARY CARE PROVIDER SCHEDULED. NEIGHBOR AT BEDSIDE STATED HE COULD HELP PT AT HOME HE RECOVERS.PT STATED UNDERSTANDING.
[2019-10-14] MEDS ORDERED: RT-ALBUINH IH (10:02)
[2019-10-14] MEDS ORDERED: ONDA4TAB11 PO (10:02)
== END 2019-10-13 15:34 | disposition home or self-care (01) | DRG 871 ==
LOC: EDUNIT# 05:14 → ER 05:16 → ICU 08:50
PROVIDERS: ADMIT Internal Medicine; ATTEND Internal Medicine
DX: A41.9 Sepsis, unspecified organism (principal); R65.20 Severe sepsis without septic shock; I21.4 Non-ST elevation (NSTEMI) myocardial infarction; K80.00 Calculus of gallbladder with acute cholecystitis without obstruction; N17.9 Acute kidney failure, unspecified; K92.0 Hematemesis; Z68.41 Body mass index [BMI] 40.0-44.9, adult; I12.9 Hypertensive chronic kidney disease with stage 1 through stage 4 chronic kidney disease, or unspecified chronic kidney disease; N18.3 Chronic kidney disease, stage 3 (moderate); E11.9 Type 2 diabetes mellitus without complications; I25.10 Atherosclerotic heart disease of native coronary artery without angina pectoris; N40.0 Benign prostatic hyperplasia without lower urinary tract symptoms; K21.9 Gastro-esophageal reflux disease without esophagitis; E66.9 Obesity, unspecified; S80.211A Abrasion, right knee, initial encounter; S80.212A Abrasion, left knee, initial encounter; S50.312A Abrasion of left elbow, initial encounter; R53.1 Weakness; R79.89 Other specified abnormal findings of blood chemistry; W19.XXXA Unspecified fall, initial encounter; Z79.4 Long term (current) use of insulin; Z83.79 Family history of other diseases of the digestive system
CPT/HCPCS: 36415; 70450; 71045; 72125; 74176; 80048; 80053; 80061; 80076; 81000; 82247; 82248; 82550; 82962; 83605; 83690; 83735; 84145; 84484; 85007; 85025; 85027; 86141; 86850; 86900; 86901; 87040; 87088; 93005; 93306; 94664

== ENCOUNTER 2019-10-14 08:25 | Emergency (ER) | payer MEDICARE ==
[~2019-10-14] VITALS: Ht 172 cm; Wt 116.8 kg
[~2019-10-14 08:25] MED LIST changes: +ASPI-983 PO; +INSU100I29 SC; +INSU100I29 SQ; +ISOS120T9 PO; +LINA5TAB PO; +LOSA100T57 PO; +OMEP20CA13 PO; +SENN-109 PO; +SPIR25TA5 PO; +TAMS0.4C98 PO; +TRAM50TA2 PO; +VIT1CAPS44 PO
--- NOTE | 2019-10-14 08:35 | ED Cough/URI ---
General Stated Complaint: VOMITING Source: patient Exam Limitations: no limitations History of Present Illness Date Seen by Provider: Oct 14, 2019 Time Seen by Provider: 08:32 Initial Comments 79-year-old male presents because he had one episode of vomiting this morning. Patient reports he's had this happen one other time. He has a little bit of epigastric pain. Patient also reports he was seen here couple days ago and "got something" and has a little bit of a cough wheeziness body aches. No reports of fever. He reports that his stomach feels better now. They hadn't eaten anything drank some water and then vomited one time this morning. He denies any nausea at this time and does not have any diarrhea. Allergies and Home Medications Allergies Coded Allergies: Sulfa (Sulfonamide Antibiotics) (Unverified Allergy, Unknown, 10/10/19) Home Medications Aspirin 81 Mg Tablet.dr, 81 MG PO DAILY Prescribed by: MARIO SULLIVAN on 10/13/19 1159 Clonidine HCl 0.2 Mg Tablet, 0.2 MG PO HS, (Reported) Furosemide 40 Mg Tablet, 40 MG PO DAILY, (Reported) Insulin Detemir 100 Unit/1 Ml Insuln.pen, 32 UNITS SC DAILY, (Reported) Insulin Detemir 100 Unit/1 Ml Insuln.pen, 29 UNIT SQ HS, (Reported) Isosorbide Mononitrate 120 Mg Tab.er.24h, 120 MG PO DAILY, (Reported) Linagliptin 5 Mg Tablet, 5 MG PO DAILY, (Reported) Losartan Potassium 100 Mg Tablet, 100 MG PO DAILY, (Reported) Metoprolol Succinate 100 Mg Tab.er.24h, 100 MG PO DAILY, (Reported) Omeprazole 20 Mg Capsule.dr, 20 MG PO DAILY, (Reported) Sennosides/Docusate Sodium 1 Each Tablet, 2 TAB PO HS, (Reported) Spironolactone 25 Mg Tablet, 25 MG PO DAILY, (Reported) Tamsulosin HCl 0.4 Mg Cap, 0.4 MG PO DAILY, (Reported) Tramadol HCl 50 Mg Tablet, 50 MG PO DAILY PRN for PAIN-MODERATE (5-7), (Reported) Vit C/E/Zn/Coppr/Lutein/Zeaxan 1 Each Capsule, 1 CAP PO BID, (Reported) Patient Home Medication List Home Medication List Reviewed: Yes Review of Systems Review of Systems Constitutional: No chills, No fever Respiratory: cough, wheezing Gastrointestinal: abdominal pain (mild epigastric ), vomiting Musculoskeletal: see HPI Skin: see HPI Past Fayluxu-Qopldn-Fhlgny Hx Past Med/Social Hx: Reviewed Nursing Past Med/Soc Hx Patient Social History 2nd Hand Smoke Exposure: No Recent Foreign Travel: No Contact w/Someone Who Travel: No Recent Hopitalizations: No Immunizations Up To Date Tetanus Booster (TDap): Less than 5yrs Date of Pneumonia Vaccine: Oct 10, 2013 Date of Influenza Vaccine: Aug 10, 2019 Seasonal Allergies Seasonal Allergies: No Past Medical History Surgeries: No Respiratory: Yes Pneumonia Cardiac: Yes Heart Attack, Hypertension Neurological: No Genitourinary: Yes (stage 3 kidney disease) Gastrointestinal: No Musculoskeletal: No Endocrine: Yes Diabetes, Insulin dep HEENT: No Cancer: No Psychosocial: No Integumentary: No Blood Disorders: No Family Medical History Cardiovascular disease 19 FATHER Hypertension 19 FATHER CAD Over 55 Years Old, Hypertension Physical Exam Vital Signs - First Documented 10/14/19 08:25 B/P (MAP) 191/117 (141) Pulse Ox 94 O2 Delivery Room Air Capillary Refill : Height: 5'7.00" Weight: 200lbs. oz. 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 as tested, normal mood/affect, oriented x 3 Skin: normal color, warm/dry Progress/Results/Core Measures Suspected Sepsis SIRS Temperature: Pulse: Respiratory Rate: Laboratory Tests 10/14/19 08:34: White Blood Count 10.0 Blood Pressure / Mean: Laboratory Tests 10/14/19 08:34: Creatinine 1.72H, Platelet Count 279, Total Bilirubin 3.0H Results/Orders Lab Results Laboratory Tests Test 10/14/19 08:34 Range/Units White Blood Count 10.0 4.3-11.0 10^3/uL Red Blood Count 4.82 4.35-5.85 10^6/uL Hemoglobin 14.2 13.3-17.7 G/DL Hematocrit 43 40-54 % Mean Corpuscular Volume 89 80-99 FL Mean Corpuscular Hemoglobin 30 25-34 PG Mean Corpuscular Hemoglobin Concent 33 32-36 G/DL Red Cell Distribution Width 14.1 10.0-14.5 % Platelet Count 279 130-400 10^3/uL Mean Platelet Volume 11.5 H 7.4-10.4 FL Neutrophils (%) (Auto) 69 42-75 % Lymphocytes (%) (Auto) 16 12-44 % Monocytes (%) (Auto) 12 0-12 % Eosinophils (%) (Auto) 2 0-10 % Basophils (%) (Auto) 0 0-10 % Neutrophils # (Auto) 6.9 1.8-7.8 X 10^3 Lymphocytes # (Auto) 1.6 1.0-4.0 X 10^3 Monocytes # (Auto) 1.2 H 0.0-1.0 X 10^3 Eosinophils # (Auto) 0.2 0.0-0.3 10^3/uL Basophils # (Auto) 0.0 0.0-0.1 10^3/uL Sodium Level 139 135-145 MMOL/L Potassium Level 4.4 3.6-5.0 MMOL/L Chloride Level 104 98-107 MMOL/L Carbon Dioxide Level 22 21-32 MMOL/L Anion Gap 13 5-14 MMOL/L Blood Urea Nitrogen 25 H 7-18 MG/DL Creatinine 1.72 H 0.60-1.30 MG/DL Estimat Glomerular Filtration Rate 38 BUN/Creatinine Ratio 15 Glucose Level 188 H 70-105 MG/DL Calcium Level 9.0 8.5-10.1 MG/DL Corrected Calcium 9.5 8.5-10.1 MG/DL Total Bilirubin 3.0 H 0.1-1.0 MG/DL Aspartate Amino Transf (AST/SGOT) 102 H 5-34 U/L Alanine Aminotransferase (ALT/SGPT) 116 H 0-55 U/L Alkaline Phosphatase 146 H 40-136 U/L Total Protein 7.7 6.4-8.2 GM/DL Albumin 3.4 3.2-4.5 GM/DL Lipase 76 8-78 U/L Micro Results Microbiology 10/14/19 Influenza Types A,B Antigen (RADHA) - Final, Complete My Orders Orders - MARINA CRAFT DO Cbc With Automated Diff (10/14/19 08:35) Comprehensive Metabolic Panel (10/14/19 08:35) Lipase (10/14/19 08:35) Influenza A And B Antigens (10/14/19 08:35) Acute Abd Series (10/14/19 08:35) Ondansetron Injection (Zofran Injectio (10/14/19 08:45) Ed Iv/Invasive Line Start (10/14/19 08:35) Albuterol/Ipra Inhalation Soln (Duoneb I (10/14/19 08:45) Svn Small Volume Nebulizer (10/14/19 08:35) Medications Given in ED Current Medications Medications Dose Ordered Sig/Laya Route Start Time Stop Time Status Last Admin Dose Admin Albuterol/ Ipratropium 3 ml ONCE ONCE INH 10/14/19 08:45 10/14/19 08:46 DC 10/14/19 09:20 3 ML Ondansetron HCl 4 mg ONCE ONCE IVP 10/14/19 08:45 10/14/19 08:46 DC 10/14/19 08:51 4 MG Vital Signs/I&O 10/14/19 10/14/19 08:25 09:21 B/P (MAP) 191/117 (141) Pulse Ox 94 95 O2 Delivery Room Air Room Air Capillary Refill : Progress Note : Progress Note Patient with no further episodes of vomiting while in the ER. Patient reports he had a negative ultrasound yesterday. He is bilirubin and other labs show improvement from his previous lab draws. Patient will be discharged with Zofran and should follow-up with his primary care provider for further evaluation and treatment Patient reports that the breathing treatment made his wheezing better. I will discharge him also with albuterol inhaler. I recommended that he follows up with his primary care since his symptoms seem to be improving and that there is no e mergent need for readmission. Departure Impression Primary Impression: Viral upper respiratory infection Additional Impressions: Vomiting Qualified Codes: R11.10 - Vomiting, unspecified Abnormal liver enzymes Disposition: HOME, SELF-CARE Condition: Stable Departure-Patient Inst. Referrals: LUPE WHITING MD (PCP/Family) Primary Care Physician Follow-up in 1-2 days for continuation of care and recheck it today since Patient Instructions: Nausea and Vomiting, Adult, Viral Upper Respiratory Infection, Adult (DC) Add. Discharge Instructions: Follow-up with your primary care provider in 1 to 2 days for continuation of care Emergency department focuses on treating and ruling out life-threatening diseases. Whenever possible, a diagnosis is given. However, most patients are given an impression based on their history, physical exam, and workup during your brief time in the ER. Information about probable diagnosis and other educational material has been provided. Please take the time to read and understand this information. It is very important that you follow up with a physician as discussed during the visit today. Failure to adhere to your follow-up instructions may lead to severe disability, injury, or so please make sure to keep your appointments or obtain one as requested. Please keep in mind the emergency department is not designed to your primary care or "family doctor" and nonurgent issues are best evaluated by an outpatient physician Scripts Ondansetron (Ondansetron Odt) 4 Mg Tab.rapdis 4 MG PO Q6H PRN for NAUSEA/VOMITING, #20 TAB Prov: MARINA CRAFT DO 10/14/19 Albuterol Sulfate (PROAIR HFA) 1 Puff Puff 2 PUFF IH Q4H for 30 Days, #1 PUFF 1 PUFF = 90 MCG Prov: MARINA CRAFT DO 10/14/19 MARINA CRAFT DO Oct 14, 2019 08:35 POS
[2019-10-14 08:43] LABS: BASOPHILS % (AUTO) 0 % (0-10); EOSINOPHILS # (AUTO) 0.2 10^3/uL (0.0-0.3); EOSINOPHILS % (AUTO) 2 % (0-10); HEMATOCRIT 43 % (40-54); HEMOGLOBIN 14.2 G/DL (13.3-17.7); LYMPHOCYTES # (AUTO) 1.6 X 10^3 (1.0-4.0); LYMPHOCYTES % (AUTO) 16 % (12-44); MEAN CORPUSCULAR HEMOGLOBIN 30 PG (25-34); MEAN CORPUSCULAR HGB CONC 33 G/DL (32-36); MEAN CORPUSCULAR VOLUME 89 FL (80-99); MEAN PLATELET VOLUME 11.5 FL (7.4-10.4); MONOCYTES # (AUTO) 1.2 X 10^3 (0.0-1.0); MONOCYTES % (AUTO) 12 % (0-12); NEUTROPHILS # (AUTO) 6.9 X 10^3 (1.8-7.8); NEUTROPHILS % (AUTO) 69 % (42-75); PLATELET COUNT 279 10^3/uL (130-400); RED CELL DISTRIBUTION WIDTH 14.1 % (10.0-14.5)
[2019-10-14] MEDS ORDERED: ONDANSETRON 4 MG/2 ML (SDV) Z0FRAN IVP ONE (08:45)
[2019-10-14] MEDS ORDERED: RT-ALBUTEROL/IPRATROPIUM 3 ML (DUONEB) VIAL INH ONE (08:45)
--- NOTE | 2019-10-14 08:55 | NUR ---
RT NOTIFIED OF NEEDING A BREATHING TREATMENT. DR NOTIFIED THAT PT WOULD LIKE SOMETHING FOR HIS BP BEFORE WE KILL HIS KIDNEYS. BP 181/93
[2019-10-14 09:03] LABS: ALBUMIN 3.4 GM/DL (3.2-4.5); CREATININE SERUM 1.72 MG/DL (0.60-1.30); POTASSIUM 4.4 MMOL/L (3.6-5.0); TOTAL PROTEIN 7.7 GM/DL (6.4-8.2)
--- NOTE | 2019-10-14 09:31 | Diagnostic Imaging Report ---
HISTORY: Hematemesis. Wheezing. COMPARISON: CT from 10/10/2019. TECHNIQUE: Frontal view of the chest. Upright and supine frontal views of the abdomen. FINDINGS: Lung volumes are mildly low. Mildly increased linear opacities are seen in the left lung base, may represent atelectasis or infiltrate. There is no pleural effusion or pneumothorax. The cardiac silhouette is stable in size. There is a nonspecific bowel gas pattern. Moderate stool is seen in the right colon. There are a few gas-filled loops of small bowel but no high-grade distention is seen. No large collection of free air is seen. IMPRESSION: 1. Moderate stool in the right colon. No small bowel obstruction is seen. 2. Left basilar opacities may represent atelectasis or infiltrate. Dictated by: Dictated on workstation # [id number]
[2019-10-14] MEDS ORDERED: ONDA4TAB11 PO (10:02)
[2019-10-14] MEDS ORDERED: RT-ALBUINH IH (10:02)
--- NOTE | 2019-10-14 10:06 | NUR ---
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
[2019-10-14 10:17] VITALS: BP 167/79
== END 2019-10-14 10:17 | disposition home or self-care (01) ==
LOC: EDUNIT# 08:25 → ER 08:26
DX: J06.9 Acute upper respiratory infection, unspecified (principal); R11.10 Vomiting, unspecified; R74.8 Abnormal levels of other serum enzymes; E11.22 Type 2 diabetes mellitus with diabetic chronic kidney disease; I12.9 Hypertensive chronic kidney disease with stage 1 through stage 4 chronic kidney disease, or unspecified chronic kidney disease; N18.3 Chronic kidney disease, stage 3 (moderate); I25.2 Old myocardial infarction; Z88.2 Allergy status to sulfonamides; Z79.82 Long term (current) use of aspirin; Z79.4 Long term (current) use of insulin; Z82.49 Family history of ischemic heart disease and other diseases of the circulatory system
CPT/HCPCS: 36415; 74022; 80053; 83690; 85025; 87804; 94640; 96374

== ENCOUNTER 2019-11-09 08:56 | Day surgery (SDC) | payer MEDICARE ==
[~2019-11-09] VITALS: Ht 175.2 cm; Wt 114.0 kg
[~2019-11-09 08:56] MED LIST changes: -METO-395 PO; +MTP100TCR PO; +OMEP-280 PO; -OMEP20CA13 PO; +ONDA4TAB11 PO; +RT-ALBUINH IH; -TAMS0.4C98 PO; +TMSL.4C PO; -TRAM50TA2 PO; +TRM50T PO
[2019-11-09] MEDS ORDERED: ASPIRIN 81 MG CHEW (CHILDREN'S ASA) PO ONE (09:00)
[2019-11-09 09:24] LABS: BASOPHILS % (AUTO) 0 % (0-10); EOSINOPHILS # (AUTO) 0.2 10^3/uL (0.0-0.3); EOSINOPHILS % (AUTO) 2 % (0-10); HEMATOCRIT 45 % (40-54); LYMPHOCYTES # (AUTO) 2.6 X 10^3 (1.0-4.0); LYMPHOCYTES % (AUTO) 23 % (12-44); MEAN CORPUSCULAR HEMOGLOBIN 30 PG (25-34); MEAN CORPUSCULAR HGB CONC 33 G/DL (32-36); MEAN CORPUSCULAR VOLUME 90 FL (80-99); MEAN PLATELET VOLUME 10.4 FL (7.4-10.4); MONOCYTES # (AUTO) 1.3 X 10^3 (0.0-1.0); MONOCYTES % (AUTO) 12 % (0-12); NEUTROPHILS % (AUTO) 63 % (42-75); PLATELET COUNT 265 10^3/uL (130-400); RED CELL DISTRIBUTION WIDTH 14.6 % (10.0-14.5); WHITE BLOOD COUNT 11.2 10^3/uL (4.3-11.0)
[2019-11-09 09:36] LABS: PROTHROMBIN TIME PATIENT 13.4 SEC (12.2-14.7)
[2019-11-09 10:11] LABS: BUN/CREATININE RATIO 13; CARBON DIOXIDE 20 MMOL/L (21-32); CHLORIDE 103 MMOL/L (98-107); CREATININE SERUM 1.67 MG/DL (0.60-1.30); GFR ESTIMATED 40; POTASSIUM 4.7 MMOL/L (3.6-5.0); SODIUM 137 MMOL/L (135-145)
[2019-11-09 10:12] LABS: ALANINE AMINOTRANSFERASE 29 U/L (0-55); ALBUMIN 3.7 GM/DL (3.2-4.5); ALKALINE PHOSPHATASE 97 U/L (40-136); BILIRUBIN,TOTAL 0.7 MG/DL (0.1-1.0); CALCIUM 9.1 MG/DL (8.5-10.1); GLUCOSE 224 MG/DL (70-105); MAGNESIUM 1.7 MG/DL (1.6-2.4); TOTAL PROTEIN 7.8 GM/DL (6.4-8.2)
--- NOTE | 2019-11-09 10:12 | ED Chest Pain ---
General Chief Complaint: Chest Pain Stated Complaint: LEFT ARM PAIN/SOA Nursing Triage Note: AMB TO ROOM REPORTS THAT LAST NIGHT FELT SOA AND HAD L ARM PAIN TODAY SYPTOMS RESOLVED,BUT CONCERN WAS IN HOSPITAL IN OCTOBER TOLD HE HAD A [place],BUT HEART CATH NOT DONE DUE TO HIGH CREAT. Nursing Sepsis Screen: No Definite Risk Source: patient Exam Limitations: no limitations History of Present Illness Date Seen by Provider: Nov 09, 2019 Time Seen by Provider: 09:10 Initial Comments Here with complaint of left arm pain and shortness of breath. Started last night. He was seen in mid to late October for the same and there was discussion about possible heart catheter at that time. His kidney function isn't great and so they're holding off. He has thought about that morning things he would like to consider that. Chest pain is essentially gone. He did take 1 baby aspirin this morning. He is resting peacefully otherwise. Timing/Duration: 12 hours Severity/Quality: mild, aching Location: shoulder Radiation: arms Activities at Onset: none Prior CP/Workup: echocardiography ASA po MENTAL HEALTH COUNSELOR: Yes NTG SL MENTAL HEALTH COUNSELOR: No Associated Symptoms: No abdominal pain; edema; No fever/chills, No nausea/vomiting; shortness of breath; No weakness Allergies and Home Medications Allergies Coded Allergies: Sulfa (Sulfonamide Antibiotics) (Unverified Allergy, Unknown, 10/10/19) Home Medications Albuterol Sulfate 1 Puff Puff, 2 PUFF IH Q4H 1 PUFF = 90 MCG Prescribed by: MARINA CRAFT on 10/14/19 1002 Aspirin 81 Mg Tablet.dr, 81 MG PO DAILY Prescribed by: MARIO SULLIVAN on 10/13/19 1159 Clonidine HCl 0.2 Mg Tablet, 0.2 MG PO HS, (Reported) Furosemide 40 Mg Tablet, 40 MG PO DAILY, (Reported) Insulin Detemir 100 Unit/1 Ml Insuln.pen, 32 UNITS SC DAILY, (Reported) Insulin Detemir 100 Unit/1 Ml Insuln.pen, 29 UNIT SQ HS, (Reported) Isosorbide Mononitrate 120 Mg Tab.er.24h, 120 MG PO DAILY, (Reported) Linagliptin 5 Mg Tablet, 5 MG PO DAILY, (Reported) Losartan Potassium 100 Mg Tablet, 100 MG PO DAILY, (Reported) Metoprolol Succinate 100 Mg Tab.er.24h, 100 MG PO DAILY, (Reported) Omeprazole 20 Mg Capsule.dr, 20 MG PO DAILY, (Reported) Ondansetron 4 Mg Tab.rapdis, 4 MG PO Q6H PRN for NAUSEA/VOMITING Prescribed by: MARINA CRAFT on 10/14/19 1002 Sennosides/Docusate Sodium 1 Each Tablet, 2 TAB PO HS, (Reported) Spironolactone 25 Mg Tablet, 25 MG PO DAILY, (Reported) Tamsulosin HCl 0.4 Mg Cap, 0.4 MG PO DAILY, (Reported) Tramadol HCl 50 Mg Tablet, 50 MG PO DAILY PRN for PAIN-MODERATE (5-7), (Reported) Vit C/E/Zn/Coppr/Lutein/Zeaxan 1 Each Capsule, 1 CAP PO BID, (Reported) Patient Home Medication List Home Medication List Reviewed: Yes Review of Systems Review of Systems Constitutional: see HPI; No chills, No fever EENTM: No Symptoms Reported Respiratory: Denies Cough; Shortness of Air Cardiovascular: Chest Pain, Edema; Denies Lightheadedness Gastrointestinal: Denies Diarrhea, Denies Nausea, Denies Vomiting Genitourinary: No Symptoms Reported Musculoskeletal: back pain, muscle pain Skin: no symptoms reported Psychiatric/Neurological: No Symptoms Reported All Other Systems Reviewed Negative Unless Noted: Yes Past Fjvdurb-Unuqid-Ijfvsu Hx Past Med/Social Hx: Reviewed Nursing Past Med/Soc Hx Patient Social History Alcohol Use: Denies Use Recreational Drug Use: No Smoking Status: Never a Smoker 2nd Hand Smoke Exposure: No Recent Foreign Travel: No Contact w/Someone Who Travel: No Recent Infectious Disease Expo: No Recent Hopitalizations: No Immunizations Up To Date Tetanus Booster (TDap): Less than 5yrs Date of Pneumonia Vaccine: Oct 10, 2013 Date of Influenza Vaccine: Aug 10, 2019 Seasonal Allergies Seasonal Allergies: No Past Medical History Surgeries: No Respiratory: Yes Pneumonia Cardiac: Yes Heart Attack, Hypertension Neurological: No Genitourinary: Yes (stage 3 kidney disease) Gastrointestinal: No Musculoskeletal: No Endocrine: Yes Diabetes, Insulin dep HEENT: No Cancer: No Psychosocial: No Integumentary: No Blood Disorders: No Family Medical History Reviewed Nursing Family Hx Cardiovascular disease 19 FATHER Hypertension 19 FATHER CAD Over 55 Years Old, Hypertension Physical Exam Vital Signs Vital Signs - First Documented 11/09/19 08:59 Temp 37.1 Pulse 76 Resp 18 B/P (MAP) 162/88 (112) Pulse Ox 95 O2 Delivery Room Air Capillary Refill : Less Than 3 Seconds Height, Weight, BMI Height: 5'7.00" Weight: 200lbs. oz. 90.894861ny; 37.00 BMI Method:Estimated General Appearance: No Apparent Distress, WD/WN HEENT: PERRL/EOMI, Pharynx Normal Neck: Non Tender, Supple Respiratory: Lungs Clear, Normal Breath Sounds Cardiovascular: Regular Rate, Rhythm, No Murmur Gastrointestinal: Non Tender, Soft Extremity: Normal Range of Motion, Non Tender Neurologic/Psychiatric: Alert, Oriented x3 Skin: Normal Color, Warm/Dry Progress/Results/Core Measures Results/Orders Lab Results Laboratory Tests Test 11/09/19 09:15 11/09/19 09:40 Range/Units White Blood Count 11.2 H 4.3-11.0 10^3/uL Red Blood Count 5.00 4.35-5.85 10^6/uL Hemoglobin 15.0 13.3-17.7 G/DL Hematocrit 45 40-54 % Mean Corpuscular Volume 90 80-99 FL Mean Corpuscular Hemoglobin 30 25-34 PG Mean Corpuscular Hemoglobin Concent 33 32-36 G/DL Red Cell Distribution Width 14.6 H 10.0-14.5 % Platelet Count 265 130-400 10^3/uL Mean Platelet Volume 10.4 7.4-10.4 FL Neutrophils (%) (Auto) 63 42-75 % Lymphocytes (%) (Auto) 23 12-44 % Monocytes (%) (Auto) 12 0-12 % Eosinophils (%) (Auto) 2 0-10 % Basophils (%) (Auto) 0 0-10 % Neutrophils # (Auto) 7.0 1.8-7.8 X 10^3 Lymphocytes # (Auto) 2.6 1.0-4.0 X 10^3 Monocytes # (Auto) 1.3 H 0.0-1.0 X 10^3 Eosinophils # (Auto) 0.2 0.0-0.3 10^3/uL Basophils # (Auto) 0.0 0.0-0.1 10^3/uL Prothrombin Time 13.4 12.2-14.7 SEC INR Comment 1.0 0.8-1.4 Activated Partial Thromboplast Time 27 24-35 SEC Sodium Level 137 135-145 MMOL/L Potassium Level 4.7 3.6-5.0 MMOL/L Chloride Level 103 98-107 MMOL/L Carbon Dioxide Level 20 L 21-32 MMOL/L Anion Gap 14 5-14 MMOL/L Blood Urea Nitrogen 22 H 7-18 MG/DL Creatinine 1.67 H 0.60-1.30 MG/DL Estimat Glomerular Filtration Rate 40 BUN/Creatinine Ratio 13 Glucose Level 224 H 70-105 MG/DL Calcium Level 9.1 8.5-10.1 MG/DL Corrected Calcium 9.3 8.5-10.1 MG/DL Magnesium Level 1.7 1.6-2.4 MG/DL Total Bilirubin 0.7 0.1-1.0 MG/DL Aspartate Amino Transf (AST/SGOT) 27 5-34 U/L Alanine Aminotransferase (ALT/SGPT) 29 0-55 U/L Alkaline Phosphatase 97 40-136 U/L Myoglobin 99.7 H 10.0-92.0 NG/ML Troponin I < 0.028 <0.028 NG/ML Total Protein 7.8 6.4-8.2 GM/DL Albumin 3.7 3.2-4.5 GM/DL My Orders Orders - SHARON CROW MD Ekg Tracing (11/09/19 08:57) Cbc With Automated Diff (11/09/19 08:58) Magnesium (11/09/19 08:58) Chest 1 View, Ap/Pa Only (11/09/19 08:58) Comprehensive Metabolic Panel (11/09/19 08:58) Myoglobin Serum (11/09/19 08:58) Protime With Inr (11/09/19 08:58) Partial Thromboplastin Time (11/09/19 08:58) O2 (11/09/19 08:58) Monitor-Rhythm Ecg Trace Only (11/09/19 08:58) Lipid Panel (11/10/19 06:00) Ed Iv/Invasive Line Start (11/09/19 08:58) Aspirin Chewable Tablet (Baby Aspirin Ch (11/09/19 09:00) Troponin I (11/09/19 09:15) Medications Given in ED Current Medications Medications Dose Ordered Sig/Laya Route Start Time Stop Time Status Last Admin Dose Admin Aspirin 324 mg ONCE ONCE PO 11/09/19 09:00 11/09/19 09:01 DC 11/09/19 09:22 324 MG Vital Signs/I&O 11/09/19 08:59 Temp 37.1 Pulse 76 Resp 18 B/P (MAP) 162/88 (112) Pulse Ox 95 O2 Delivery Room Air Blood Pressure Mean: 112 Progress Progress Note : Progress Note Seen and evaluated. IV, labs, EKG and chest x-ray ordered. ASA 324 mg by mouth ordered. No nitros pain is essentially gone. Monitor patient. 1040: Patient would like to pursue heart catheter at that is reasonable and would like to pursue admission. I did discuss the case with Dr. Kaur and he accepts patient for admission, observation status and consult. 1105: I discussed the case with Dr. Kelly and he accepts patient for admission observation status. All findings concerns discussed with the patient who agrees with plan. Initial ECG Impression Date: Nov 09, 2019 Initial ECG Impression Time: 08:58 Initial ECG Rate: 80 Initial ECG Rhythm: Normal Sinus Initial ECG Comparisson: Unchanged Comment Sinus rhythm with normal axis. No evidence of ST elevation [place]. Similar to previous of 10/10/19. Interpreted by me. PAC noted. Diagnostic Imaging Diagonstic Imaging: Xray Plain Films/CT/US/NM/MRI: chest Comments [facility] [place], [place] NAME: MIL[facility]ED [facility] REC#: [id number] PT STATUS: REG ER : 1940 PHYSICIAN: SHARON CROW MD ADMIT DATE: 11/09/19/ER Draft Date of Exam:11/09/19 CHEST 1 VIEW, AP/PA ONLY INDICATION: Pain. COMPARISON: 10/11/2019 TECHNIQUE: Single radiograph of the chest dated 11/09/2019. FINDINGS: The cardiac silhouette is stable. No significant pulmonary vascular congestion. Low lung volumes. Persistent minimal right basilar atelectasis and/or pneumonitis. The left lung is clear. No significant pleural effusion. No pneumothorax. No acute osseous abnormality. IMPRESSION: Low lung volumes with persisting minimal right basilar atelectasis and/or pneumonitis without adverse change. Dictated on workstation # [id number] Dict: 11/09/19 1005 Trans: 11/09/19 1009 [id number] Interpreted by: ALYSSA JEFFREY MD Electronically signed by: Departure Communication (Admissions) Time/Spoke to Admitting Phy: 11:05 Time/Spoke to Consulting Phy: 10:40 Impression Primary Impression: Chest pain Qualified Codes: R07.9 - Chest pain, unspecified Additional Impression: Hyperglycemia Disposition: ADMITTED INPATIENT Condition: Stable Admissions Decision to Admit Reason: Admit from ER (General) Decision to Admit/Date: Nov 09, 2019 Time/Decision to Admit Time: 10:40 Departure-Patient Inst. Referrals: LUPE WHITING MD (PCP/Family) Primary Care Physician SHARON CROW MD Nov 09, 2019 10:12
[2019-11-09 12:00] VITALS: BP 139/84
[2019-11-09] MEDS ORDERED: CATHETER FLUSH 10 ML SYR IV PRN (12:15)
[2019-11-09] MEDS ORDERED: morphine INJ 4 MG/ML 1 ML (VIAL/SYRINGE) IV PRN (12:15)
[2019-11-09] MEDS ORDERED: ONDANSETRON 4 MG/2 ML (SDV) Z0FRAN IV PRN (12:15)
[2019-11-09] MEDS ORDERED: NS IV 1000 ML 1,000 ML IV SCH (12:15)
[2019-11-09] MEDS ORDERED: NITROGLYCERIN 0.4 MG SL TABS BTL 25'S SL PRN (12:15)
[2019-11-09] MEDS ORDERED: ALBU18HF2 INH (13:12)
[2019-11-09] MEDS ORDERED: ASPI-983 PO (13:12)
[2019-11-09] MEDS ORDERED: ONDA4TAB11 PO (13:12)
--- NOTE | 2019-11-09 13:22 | NUR ---
WENT OVER THE EXT MED HX WITH THE PATIENT AND HE VERIFIED HOW HE TAKES THEM. HIS LEVEMIR WAS FILLED 11-06-18 29 UNITS BID HOWEVER HE SATES HE USES 29 UNITS AT HS AND 32 UNITS IN THE MORNING. HIS LASIX WAS FILLED #180 FOR 90 DAYS 09-01-19 HOWEVER HE STATES HE ONLY TAKES 1 TABLET ONCE DAILY. HE STATES HE DID NOT [employer] SAL[employer] OR USE THE VENTOLIN OR ZOFRAN. I REMOVED THEM FROM THE MED REC. HE TAKES THE FOLLOWING OTC: ELMER S 2 HS PRESERVISION BID ASPIRIN 81MG DAILY
--- NOTE | 2019-11-09 13:45 | NUR ---
Telephone orders received from for accucheck ACHS and to order novolog sliding scale A
[2019-11-09] MEDS: NS IV 1000 ML 1,000 ML IV SCH ×2 (13:54→23:30)
[2019-11-09] MEDS ORDERED: inSUlin ASPART (NovoLOG) 1 UNIT/0.01 ML (CHARGE PER UNIT) SC SCH (14:30)
--- NOTE | 2019-11-09 15:30 | Consultation-Cardiology ---
HPI-Cardiology Cardiology Consultation Date of Consultation 11/09/19 Date of Admission Time Seen by Provider: 12:30 Indication: chest pain HPI 79-year-old gentleman with history of coronary artery disease, hypertension, hyperlipidemia, was seen in my office yesterday and I recommended cardiac catheterization, patient requested to wait. Started having increasing chest discomfort, shortness of breath on exertion, came into the emergency room for evaluation and he was admitted with active chest pain. On my evaluation was feeling better, denied any chest pain but concern about his worsening dyspnea. Home Medications & Allergies Allergies: Coded Allergies: Sulfa (Sulfonamide Antibiotics) (Unverified Allergy, Unknown, 10/10/19) APS-Rswfii-Prqywq Hx Patient Social History Marital Status: Employed/Student: retired Alcohol Use: Denies Use Recreational Drug Use: No Smoking Status: Never a Smoker 2nd Hand Smoke Exposure: No Recent Foreign Travel: No Recent Infectious Disease Expo: No Recent Hopitalizations: Yes (October 10 ) Physical Abuse Screen: No Sexual Abuse: No Immunizations Up To Date Tetanus Booster (TDap): Less than 5yrs Date of Pneumonia Vaccine: Oct 10, 2013 Date of Influenza Vaccine: Aug 10, 2019 Past Medical History Discussed below Family Medical History Significant Family History: CAD Over 55 Years Old, Hypertension Family History: Cardiovascular disease 19 FATHER Hypertension 19 FATHER Review of Systems-General Review of Systems Constitutional: see HPI; No chills, No fever; malaise, weakness EENTM: see HPI, no symptoms reported Respiratory: see HPI, dyspnea on exertion, short of breath Cardiovascular: see HPI, chest pain, edema Gastrointestinal: no symptoms reported, see HPI Genitourinary: no symptoms reported, see HPI Musculoskeletal: back pain, muscle pain Skin: no symptoms reported Psychiatric/Neurological: No Symptoms Reported All Other Systems Reviewed Negative Unless Noted: Yes Reviewed Test Results Reviewed Test Results Lab Laboratory Tests Test 11/09/19 09:15 11/09/19 09:40 11/09/19 15:15 Range/Units White Blood Count 11.2 H 4.3-11.0 10^3/uL Red Blood Count 5.00 4.35-5.85 10^6/uL Hemoglobin 15.0 13.3-17.7 G/DL Hematocrit 45 40-54 % Mean Corpuscular Volume 90 80-99 FL Mean Corpuscular Hemoglobin 30 25-34 PG Mean Corpuscular Hemoglobin Concent 33 32-36 G/DL Red Cell Distribution Width 14.6 H 10.0-14.5 % Platelet Count 265 130-400 10^3/uL Mean Platelet Volume 10.4 7.4-10.4 FL Neutrophils (%) (Auto) 63 42-75 % Lymphocytes (%) (Auto) 23 12-44 % Monocytes (%) (Auto) 12 0-12 % Eosinophils (%) (Auto) 2 0-10 % Basophils (%) (Auto) 0 0-10 % Neutrophils # (Auto) 7.0 1.8-7.8 X 10^3 Lymphocytes # (Auto) 2.6 1.0-4.0 X 10^3 Monocytes # (Auto) 1.3 H 0.0-1.0 X 10^3 Eosinophils # (Auto) 0.2 0.0-0.3 10^3/uL Basophils # (Auto) 0.0 0.0-0.1 10^3/uL Prothrombin Time 13.4 12.2-14.7 SEC INR Comment 1.0 0.8-1.4 Activated Partial Thromboplast Time 27 24-35 SEC Sodium Level 137 135-145 MMOL/L Potassium Level 4.7 3.6-5.0 MMOL/L Chloride Level 103 98-107 MMOL/L Carbon Dioxide Level 20 L 21-32 MMOL/L Anion Gap 14 5-14 MMOL/L Blood Urea Nitrogen 22 H 7-18 MG/DL Creatinine 1.67 H 0.60-1.30 MG/DL Estimat Glomerular Filtration Rate 40 BUN/Creatinine Ratio 13 Glucose Level 224 H 70-105 MG/DL Calcium Level 9.1 8.5-10.1 MG/DL Corrected Calcium 9.3 8.5-10.1 MG/DL Magnesium Level 1.7 1.6-2.4 MG/DL Total Bilirubin 0.7 0.1-1.0 MG/DL Aspartate Amino Transf (AST/SGOT) 27 5-34 U/L Alanine Aminotransferase (ALT/SGPT) 29 0-55 U/L Alkaline Phosphatase 97 40-136 U/L Myoglobin 99.7 H 10.0-92.0 NG/ML Troponin I < 0.028 <0.028 NG/ML Total Protein 7.8 6.4-8.2 GM/DL Albumin 3.7 3.2-4.5 GM/DL Physical Exam Physical Exam Vital Signs Vital Signs - First Documented 11/09/19 08:59 Temp 37.1 Pulse 76 Resp 18 B/P (MAP) 162/88 (112) Pulse Ox 95 O2 Delivery Room Air Capillary Refill : Less Than 3 Seconds Height, Weight, BMI Height: 5'7.00" Weight: 200lbs. oz. 90.514985wx; 37.00 BMI Method:Estimated General Appearance: No Apparent Distress, WD/WN Eyes: Bilateral Eye Normal Inspection, Bilateral Eye PERRL, Bilateral Eye EOMI HEENT: PERRL/EOMI, Pharynx Normal Neck: Non Tender, Supple Respiratory: Lungs Clear, Normal Breath Sounds Cardiovascular: Regular Rate, Rhythm, Systolic Murmur, Gallop/S3 Gastrointestinal: Non Tender, Soft Back: Normal Inspection, No CVA Tenderness, No Vertebral Tenderness Extremity: Normal Range of Motion, Non Tender, Pedal Edema Neurologic/Psychiatric: Alert, Oriented x3 Skin: Normal Color, Warm/Dry Lymphatic: No Adenopathy A/P-Cardiology Admission Diagnosis Chest pain Coronary artery disease Hypertension Hyperlipidemia Assessment/Plan Chest pain or shortness of breath resembling angina, patient was admitted and monitored, planning to proceed with cardiac catheterization. Coronary artery disease, had non-ST elevation myocardial infarction October 2019, discussed the possibility of cardiac catheterization at that time and he requested to wait, he was refusing the procedure, discussed again during his office visit yesterday and he requested to wait. Currently he agreed on the procedure, planning to proceed with that tomorrow. Hypertension, I will restart home medication monitor Abdominal pain, hematemesis, seen by Dr. Kasper, had cholelithiasis. Currently reporting improvement, managed by primary care physician Acute on chronic renal failure, started him on IV fluid, I will monitor his creatinine level. Hyperlipidemia, had elevated liver enzymes, currently unable to tolerate statin, monitor lipids and liver enzymes Diabetes mellitus, followed and managed by primary care physician. Continue to monitor Generalized weakness and loss of energy, recommended starting the wellness program at least for the first month in the hospital then he can graduate into going to the [facility] or exercise on his own. Clinical Quality Measures AMI/AHF: ASA po Prior to arrival: Yes DVT/VTE Risk/Contraindication: Risk Factor Score Per Nursin RFS Level Per Nursing on Admit: 4+=Very High JINA CHURCH MD Nov 09, 2019 15:30
[2019-11-09] MEDS: inSUlin ASPART (NovoLOG) 1 UNIT/0.01 ML (CHARGE PER UNIT) SC SCH ×2 (15:52→20:29)
[2019-11-09 16:00] VITALS: BP 135/79
--- NOTE | 2019-11-09 19:09 | History & Physical ---
History of Present Illness History of Present Illness Reason for visit/HPI Chief complaint short of air in left arm and shoulder pain today. Patient in October had an nonelevated STEMI. Last night had trouble breathing. Patient had chest pain. Patient stated he had trouble eating area Patient has history of gallstone. Previous surgery none. Patient has a history of coronary artery disease, diabetes, renal insufficiency, benign prostatic hypertrophy, hypertension. Hyperlipidemia. Coronary artery disease Date of Admission Nov 09, 2019 at 11:18 Time Seen by a Provider: 19:04 I consulted on this patient on 11/09/19 19:04 Attending Physician Jeff Henning DO Admitting Physician Ifeanyi Thurman MD Consult Allergies and Home Medications Allergies Coded Allergies: Sulfa (Sulfonamide Antibiotics) (Unverified Allergy, Unknown, 10/10/19) Home Medications Aspirin 81 Mg Tablet.dr, 81 MG PO DAILY, (Reported) Clonidine HCl 0.2 Mg Tablet, 0.2 MG PO HS, (Reported) Furosemide 40 Mg Tablet, 40 MG PO DAILY, (Reported) Insulin Detemir 100 Unit/1 Ml Insuln.pen, 32 UNITS SC DAILY, (Reported) Insulin Detemir 100 Unit/1 Ml Insuln.pen, 29 UNIT SQ HS, (Reported) Isosorbide Mononitrate 120 Mg Tab.er.24h, 120 MG PO DAILY, (Reported) Linagliptin 5 Mg Tablet, 5 MG PO DAILY, (Reported) Losartan Potassium 100 Mg Tablet, 100 MG PO DAILY, (Reported) Metoprolol Succinate 100 Mg Tab.er.24h, 100 MG PO DAILY, (Reported) Omeprazole 20 Mg Capsule.dr, 20 MG PO DAILY, (Reported) Sennosides/Docusate Sodium 1 Each Tablet, 2 TAB PO HS, (Reported) Spironolactone 25 Mg Tablet, 25 MG PO DAILY, (Reported) Tamsulosin HCl 0.4 Mg Cap, 0.4 MG PO DAILY, (Reported) Tramadol HCl 50 Mg Tablet, 50 MG PO HS PRN for PAIN-MODERATE (5-7), (Reported) Vit C/E/Zn/Coppr/Lutein/Zeaxan 1 Each Capsule, 1 CAP PO BID, (Reported) Patient Home Medication List Home Medication List Reviewed: Yes Past Gqghdza-Esylrr-Wgwchy Hx Past Med/Social Hx: Reviewed Nursing Past Med/Soc Hx Patient Social History Marrital Status: Employed/Student: retired Alcohol Use: Denies Use Recreational Drug Use: No Smoking Status: Never a Smoker 2nd Hand Smoke Exposure: No Physical Abuse Screen: No Sexual Abuse: No Recent Foreign Travel: No Contact w/other who traveled: No Recent Hopitalizations: Yes (October 10 ) Recent Infectious Disease Expo: No Immunizations Up To Date Tetanus Booster (TDap): Less than 5yrs Date of Pneumonia Vaccine: Oct 10, 2013 Date of Influenza Vaccine: Aug 10, 2019 Seasonal Allergies Seasonal Allergies: No Past Medical History Cardiac: Heart Attack, Hypertension Endocrine: Diabetes, Insulin dep Loss of Vision: Denies Hearing Impairment: Denies History of Blood Disorders: No Family History Reviewed Nursing Family Hx Cardiovascular disease 19 FATHER Hypertension 19 FATHER CAD Over 55 Years Old, Hypertension Review of Systems Constitutional: no symptoms reported EENTM: no symptoms reported Respiratory: short of breath Cardiovascular: chest pain Gastrointestinal: no symptoms reported Genitourinary: no symptoms reported Physical Exam Vital Signs Vital Signs - First Documented 11/09/19 08:59 Temp 37.1 Pulse 76 Resp 18 B/P (MAP) 162/88 (112) Pulse Ox 95 O2 Delivery Room Air Capillary Refill : Less Than 3 Seconds Height, Weight, BMI Height: 5'7.00" Weight: 200lbs. oz. 90.859213xc; 37.00 BMI Method:Estimated General Appearance: No Apparent Distress, WD/WN Eyes: Bilateral Eye Normal Inspection HEENT: Normal ENT Inspection Neck: Full Range of Motion, Normal Inspection Respiratory: Lungs Clear, No Accessory Muscle Use, No Respiratory Distress Cardiovascular: Regular Rate, Rhythm, No Murmur Gastrointestinal: Non Tender, Soft Assessment/Plan Assessment and Plan Chest pain. Diabetes. Renal insufficiency. Benign prostatic hypertrophy. Hypertension. Hyperlipidemia. Coronary artery disease Admission Diagnosis Admission Status: Observation Clinical Quality Measures AMI/AHF: ASA po Prior to arrival: Yes DVT/VTE Risk/Contraindication: Risk Factor Score Per Nursin RFS Level Per Nursing on Admit: 4+=Very High JEFF HENNING DO Nov 09, 2019 19:09
[2019-11-09 20:00] VITALS: BP 182/91
[2019-11-09] MEDS: cloNIDine 0.2 MG (CATAPRES) TAB PO SCH (20:33)
[2019-11-09] MEDS: ENOXAPARIN 40 MG/0.4 ML (LOVENOX) SYR SC SCH (20:33)
--- NOTE | 2019-11-09 23:15 | NUR ---
THIS RN NOTIFIED THAT PT PULLED IV IN LT FOREARM OUT. UPON ASSESSMENT, THIS RN NOTED CATHETER TIP INTACT. NEW 20G IV STARTED IN RT FOREARM BY THIS RN.
[2019-11-10] VITALS (13 sets, daily range): BP systolic 110–149; BP diastolic 71–83
[2019-11-10] MEDS: NS IV 1000 ML 1,000 ML IV SCH ×4 (02:12→16:46)
[2019-11-10 03:55] LABS: BASOPHILS % (AUTO) 0 % (0-10); EOSINOPHILS # (AUTO) 0.2 10^3/uL (0.0-0.3); EOSINOPHILS % (AUTO) 3 % (0-10); HEMATOCRIT 44 % (40-54); HEMOGLOBIN 14.5 G/DL (13.3-17.7); LYMPHOCYTES # (AUTO) 2.6 X 10^3 (1.0-4.0); LYMPHOCYTES % (AUTO) 26 % (12-44); MEAN CORPUSCULAR HEMOGLOBIN 30 PG (25-34); MEAN CORPUSCULAR HGB CONC 33 G/DL (32-36); MEAN CORPUSCULAR VOLUME 90 FL (80-99); MEAN PLATELET VOLUME 9.7 FL (7.4-10.4); MONOCYTES # (AUTO) 1.3 X 10^3 (0.0-1.0); MONOCYTES % (AUTO) 13 % (0-12); NEUTROPHILS # (AUTO) 5.7 X 10^3 (1.8-7.8); NEUTROPHILS % (AUTO) 58 % (42-75); PLATELET COUNT 251 10^3/uL (130-400); RED CELL DISTRIBUTION WIDTH 13.5 % (10.0-14.5); WHITE BLOOD COUNT 9.8 10^3/uL (4.3-11.0)
[2019-11-10 04:41] LABS: CREATININE SERUM 1.68 MG/DL (0.60-1.30); POTASSIUM 4.7 MMOL/L (3.6-5.0)
[2019-11-10 04:42] LABS: ALBUMIN 3.4 GM/DL (3.2-4.5); BILIRUBIN,TOTAL 0.7 MG/DL (0.1-1.0); CALCIUM 8.6 MG/DL (8.5-10.1); TOTAL PROTEIN 7.2 GM/DL (6.4-8.2)
[2019-11-10] MEDS: inSUlin ASPART (NovoLOG) 1 UNIT/0.01 ML (CHARGE PER UNIT) SC SCH ×4 (05:29→20:47)
--- NOTE | 2019-11-10 07:36 | Progress Note ---
Subjective Time Seen by a Provider: 07:31 Subjective/Events-last exam Patient has no chest pain today. Patient has no pain in the left arm or going down the shoulder left. Patient did not have a good night sleep. Patient gets discomfort in upper abdomen towards the middle. Patient has history of gallstones. When patient needs fatty foods this discomfort gets worse. Sugars are okay. Hypertension better. Patient to have angiography today Objective Exam Vital Signs Date Time Temp Pulse Resp B/P (MAP) Pulse Ox O2 Delivery O2 Flow Rate FiO2 11/10/19 04:00 Room Air 11/10/19 03:25 35.8 76 16 147/80 (102) 95 Simple Mask 11/10/19 01:00 80 11/10/19 00:00 36.6 82 19 149/82 (104) 94 Room Air 11/10/19 00:00 Room Air 11/09/19 21:00 Room Air 11/09/19 20:00 36.3 11/09/19 20:00 90 21 182/91 (121) 97 11/09/19 20:00 Room Air 11/09/19 19:00 83 11/09/19 16:00 97 Room Air 11/09/19 16:00 36.3 108 15 135/79 (97) 94 11/09/19 14:15 95 Room Air 11/09/19 12:58 71 11/09/19 12:00 95 Room Air 11/09/19 12:00 70 32 139/84 (102) 95 Room Air 11/09/19 11:33 70 18 148/96 97 Room Air 11/09/19 08:59 37.1 76 18 162/88 (112) 95 Room Air I & O 11/10/19 07:00 Intake Total 2100 ml Balance 2100 ml Capillary Refill : Less Than 3 Seconds General Appearance: No Apparent Distress, WD/WN HEENT: Normal ENT Inspection Neck: Full Range of Motion, Normal Inspection Respiratory: Lungs Clear, No Accessory Muscle Use, No Respiratory Distress Cardiovascular: Regular Rate, Rhythm, No Murmur Gastrointestinal: non tender, soft Results Lab Laboratory Tests 11/09/19 09:15 11/09/19 09:40 11/10/19 03:44 Laboratory Tests 11/09/19 09:15: White Blood Count 11.2H, Red Blood Count 5.00, Hemoglobin 15.0, Hematocrit 45, Mean Corpuscular Volume 90, Mean Corpuscular Hemoglobin 30, Mean Corpuscular Hemoglobin Concent 33, Red Cell Distribution Width 14.6H, Platelet Count 265, Mean Platelet Volume 10.4, Neutrophils (%) (Auto) 63, Lymphocytes (%) (Auto) 23, Monocytes (%) (Auto) 12, Eosinophils (%) (Auto) 2, Basophils (%) (Auto) 0, Neutrophils # (Auto) 7.0, Lymphocytes # (Auto) 2.6, Monocytes # (Auto) 1.3H, Eosinophils # (Auto) 0.2, Basophils # (Auto) 0.0, Prothrombin Time 13.4, INR Comment 1.0, Activated Partial Thromboplast Time 27 11/09/19 09:40: Sodium Level 137, Potassium Level 4.7, Chloride Level 103, Carbon Dioxide Level 20L, Anion Gap 14, Blood Urea Nitrogen 22H, Creatinine 1.67H, Estimat Glomerular Filtration Rate 40, BUN/Creatinine Ratio 13, Glucose Level 224H, Calcium Level 9.1, Corrected Calcium 9.3, Magnesium Level 1.7, Total Bilirubin 0.7, Aspartate Amino Transf (AST/SGOT) 27, Alanine Aminotransferase (ALT/SGPT) 29, Alkaline Phosphatase 97, Myoglobin 99.7H, Troponin I < 0.028, Total Protein 7.8, Albumin 3.7 11/09/19 15:15: Troponin I < 0.028 11/09/19 15:35: Glucometer 204H 11/09/19 20:10: Glucometer 164H 11/09/19 21:10: Troponin I < 0.028 11/10/19 03:44: White Blood Count 9.8, Red Blood Count 4.91, Hemoglobin 14.5, Hematocrit 44, Mean Corpuscular Volume 90, Mean Corpuscular Hemoglobin 30, Mean Corpuscular Hemoglobin Concent 33, Red Cell Distribution Width 13.5, Platelet Count 251, Mean Platelet Volume 9.7, Neutrophils (%) (Auto) 58, Lymphocytes (%) (Auto) 26, Monocytes (%) (Auto) 13H, Eosinophils (%) (Auto) 3, Basophils (%) (Auto) 0, Neutrophils # (Auto) 5.7, Lymphocytes # (Auto) 2.6, Monocytes # (Auto) 1.3H, Eosinophils # (Auto) 0.2, Basophils # (Auto) 0.0, Sodium Level 139, Potassium Level 4.7, Chloride Level 105, Carbon Dioxide Level 22, Anion Gap 12, Blood Urea Nitrogen 22H, Creatinine 1.68H, Estimat Glomerular Filtration Rate 39, BUN/Creatinine Ratio 13, Glucose Level 174H, Calcium Level 8.6, Corrected Calcium 9.1, Total Bilirubin 0.7, Aspartate Amino Transf (AST/SGOT) 24, Alanine Aminotransferase (ALT/SGPT) 27, Alkaline Phosphatase 87, Total Protein 7.2, Albumin 3.4, Triglycerides Level 120, Cholesterol Level 138, LDL Cholesterol Direct 95, VLDL Cholesterol 24, HDL Cholesterol 34L Assessment/Plan Assessment/Plan Assess & Plan/Chief Complaint Chest pain. Renal insufficiency. Diabetes. History of gallstones Clinical Quality Measures Admission Status Admission Dx Chest pain. Diabetes. Renal insufficiency. Benign prostatic hypertrophy. Hypertension. Hyperlipidemia. Coronary artery disease AMI/AHF: ASA po Prior to arrival: Yes DVT/VTE Risk/Contraindication: Risk Factor Score Per Nursin RFS Level Per Nursing on Admit: 4+=Very High MUKUL HENNING DO Nov 10, 2019 07:36
[2019-11-10] MEDS ORDERED: OMEPRAZOLE 20 MG (PriLOSEC) CAP NON-FORMULARY PO SCH (09:00)
[2019-11-10] MEDS ORDERED: NON-FORMULARY MEDICATION 1 EA EA (Isosorbide Mononitrate (Isosorbide Mononitrate ER) 120 M PO SCH (09:00)
[2019-11-10] MEDS: PANTOPRAZOLE 20 MG TABLET (PROTONIX) PO SCH (09:21)
[2019-11-10] MEDS: LOSARTAN 100 MG (COZAAR) TABLET PO SCH (09:22)
[2019-11-10] MEDS: ISOSORBIDE MONONITRATE 60 MG (IMDUR) TAB PO SCH (09:22)
[2019-11-10] MEDS: meTOprolol SUCCINATE 100 MG (TOPROL XL) TAB PO SCH (09:22)
[2019-11-10] MEDS: ASPIRIN E.C. 81 MG (ECOTRIN) TAB PO SCH (09:22)
[2019-11-10] MEDS: FUROSEMIDE 40 MG (LASIX) TAB PO SCH (09:22)
--- NOTE | 2019-11-10 10:55 | Cardiology Progress Note ---
Subjective Date Seen by Provider: Nov 10, 2019 Time Seen by Provider: 09:30 Subjective/Events-last exam Pt laying in bed comfortably. NPO at this time. No active chest pain at this time. complains of epigastric discomfort. Denies any recent hx of bloody or black tarry stools. Has hx of UGIB, denies having endoscopy. HTN is better controlled but still mildly hypertensive. Creatinine levels have been steady since yesterday and receiving IVF. Pt is mildly anxious about the angiography today. His concerns were address by Dr. Kaur extensively and it was explained to him that his multitude of sx (chronic tiredness, SOB, decreased ability to exercise and chest pain) most likely multicausal and that today we will address cardiac causes, if any, and then his medical team will explore other etiologies from this point on. Pt voices understanding. I visited with the patient in length, discussed the management plan in length, addressed all his concerns and questions, discussed the procedure and the management plan for long-term. Discussed pros and cons, complication rate. Received a phone call from his sister who discussed the procedure again. All his questions and concerns were addressed Review of Systems General: No Chills; Fatigue (chronic) HEENT: No Head Aches, No Visual Changes Pulmonary: Dyspnea (chronic, worse with laying down); No Pleuritic Chest Pain Cardiovascular: Chest Pain; No: Palpitations Gastrointestinal: Other (mild e[igastric discomfort); No: Nausea, Vomiting Genitourinary: No Dysuria, No Incontinence Neurological: No: Weakness, Numbness, Confusion Objective-Cardiology Exam Last Set of Vital Signs Vital Signs 11/10/19 12:13 Temp 36.5 Pulse 71 Resp 16 B/P (MAP) 117/79 (92) Pulse Ox 97 O2 Delivery Room Air Capillary Refill : Less Than 3 Seconds I&O Intake and Output 11/10/19 00:00 Intake Total 1075 ml Balance 1075 ml Intake Oral 1075 ml # Voids 6 Daily Weight Change Yes, 2-13 lbs General: Alert, Oriented X3, Cooperative HEENT: Atraumatic, PERRLA Neck: Supple, No JVD Lungs: Clear to Auscultation Heart: Regular Rate, Normal S1, Normal S2 Extremities: No Clubbing, No Edema Skin: No Rashes, No Breakdown Neuro: Normal Speech, Strength at 5/5 X4 Ext, Cranial Nerves 3-12 NL Results Lab Laboratory Tests 11/10/19 03:44 A/P-Cardiology Admission Diagnosis Chest pain Coronary artery disease Hypertension Hyperlipidemia Assessment/Plan Chest pain and shortness of breath resembling angina, had recent admission with elevated troponin level. I am planning to proceed with cardiac catheterization today. Coronary artery disease, had non-ST elevation myocardial infarction October 2019, discussed the possibility of cardiac catheterization at that time and he requested to wait, he was refusing the procedure, discussed again during his office visit yesterday and he requested to wait. Pt agrees to procedure, we will proceed with cardiac catheterization today Hypertension, home meds restarted; BP better controlled today. Will continue to monitor Hx of Abdominal pain, hematemesis, seen by Dr. Kasper, had cholelithiasis. Currently reporting improvement, managed by primary care physician Acute on chronic renal failure, receiving IV fluid. Continue to monitor renal function Hyperlipidemia, had elevated liver enzymes, currently unable to tolerate statin, monitor lipids and liver enzymes Diabetes mellitus, followed and managed by primary care physician. blood sugar under control at this time; will Continue to monitor Generalized weakness and loss of energy, recommended starting the wellness program at least for the first month in the hospital then he can graduate into going to the [facility] or exercise on his own. Verification and Attestation of Medical Student E/M Service A medical student performed and documented this service in my presence. I reviewed and verified all information documented by the medical student and made modifications to such information, when appropriate. I personally performed the physical exam and medical decision making. I made few modifications to the note using Italic font Planning for cardiac catheterization today Jina Kaur, Nov 10, 2019,13:09 Clinical Quality Measures AMI/AHF: ASA po Prior to arrival: Yes DVT/VTE Risk/Contraindication: Risk Factor Score Per Nursin RFS Level Per Nursing on Admit: 4+=Very High Supervisory-Addendum Brief Verification & Attestation Participated in pt care: history, MDM, physical Personally performed: exam, history, MDM, supervision of care Care discussed with: Medical Student Procedures: n/a Results interpretation: Verified all documentation Verification and Attestation of Medical Student E/M Service A medical student performed and documented this service in my presence. I reviewed and verified all information documented by the medical student and made modifications to such information, when appropriate. I personally performed the physical exam and medical decision making. Jina Kaur, Nov 10, 2019,13:10 [facility] Nov 10, 2019 10:55 JINA KAUR MD Nov 10, 2019 13:10
--- NOTE | 2019-11-10 13:13 | Cardiac Procedure Note-CS/ASA ---
Pre-Procedure Note Pre-Op Procedure Note H&P Reviewed The H&P was reviewed, patient examined and no changes noted. Date H&P Reviewed: Nov 10, 2019 Time H&P Reviewed: 13:13 Conscious Sedation Pre-Proced Time 13:13 ASA Score 3 For ASA 3 and 4: Consider anesthesia and medical clearance. Also, for patients with a history of failed moderate sedation consider anesthesia. Airway Lungs Heart ASA score ASA 1: a normal healthy patient ASA 2: a patient with a mild systemic disease (mid diabetes, controlled hypertension, obesity x ASA 3: a patient with a severe systemic disease that limits activity (angina, COPD, prior Myocardial infarction) ASA 4: a patient with an incapacitating disease that is a constant threat to life (CHF, renal failure) ASA 5: a moribund patient not expected to survive 24 hrs. (ruptured aneurysm) ASA 6: a declared brain- patient whose organs are being harvested. For emergent operations, add the letter E after the classification Mallampati Classification Grade 3 Sedation Plan Analgesia, Amnesia, Plan communicated to team members, Discussed options with patient/fam, Discussed risks with patient/fam The patient is an appropriate candidate to undergo the planned procedure, sedation, and anesthesia. The patient immediately re-assessed prior to indication. JINA CHURCH MD Nov 10, 2019 13:13
[2019-11-10] MEDS ORDERED: HEParin 1000 UNIT/ML (10ML VIAL) FOR BOLUS ONE (13:39)
[2019-11-10] MEDS ORDERED: LIDOCAINE 1% INJ 20 ML 20 ML VIAL ONE (13:39)
[2019-11-10] MEDS ORDERED: NS IV 1000 ML 2,000 ML ONE (13:39)
[2019-11-10] MEDS ORDERED: MIDAZOLAM 5 MG/5 ML (VERSED) VIAL ONE (13:44)
[2019-11-10] MEDS ORDERED: fentaNYL INJECTION 100 MCG/2 ML AMP ONE (13:45)
[2019-11-10] MEDS ORDERED: PATIENT MAY USE OWN MEDS, ALL PO SCH (14:45)
--- NOTE | 2019-11-10 14:48 | Cardiac Cath Report ---
Cardiac Cath Report Physician (s)/Vacuum Furnace Operator (s) Physician JINA CHURCH MD Pre-Procedure Diagnosis Pre-Procedure Diagnosis: chest pain, coronary artery disease Post-Procedure Note Procedure Start Date: Nov 10, 2019 Name of Procedure: left heart catheterization Findings/Procedure Note PROCEDURE NOTE: 79-year-old gentleman with history of non-ST elevation myocardial infarction, admitted with chest pain and shortness of breath, decided to proceed with left heart catheterization possible PTCA. After explaining the procedure to the patient, all pros and cons were explained, all questions were answered. The patient signed the consent and then he was placed on the cardiac catheterization laboratory. Groin was prepped SL fashion local anesthesia was used. Sheath placed in the right femoral artery. Zohaib right and left catheter were used to access the coronary system. Pigtail was used to access the left ventricular cavity. At the end of the procedure the sheath was removed. Closure device was used FINDINGS: Hemodynamics LV 127/14, and diastolic pressure 40 Aorta 118/65 mean of 89 ANATOMY: Left Main is free of obstructive Left Anterior Descending is calcified with some tortuosity, mild diffuse ectasia with slow flow due to small vessel disease Left Circumflex is calcified with mild disease of flow due to small vessel disease Right Coronory Artery is calcified, 40-50 percent stenosis proximally, 40 percent stenosis distally, slow flow due to small vessel disease CONCLUSION: 1. Calcified coronary system with mild diffuse ectasia and slow flow diffusely due to small vessel disease 2. Normal left ventricular end-diastolic pressure DISCUSSION AND RECOMMENDATION: maximizing medical therapy, I did a cardiac catheter with minimal amount of contrast. Anesthesia Type: Conscious Sedation Estimated blood loss (mL): 15 ml Contrast Amount: 22 ml Total Radiation Dose: 607 mGy Post-Procedure Diagnosis Post-operative diagnosis: Chest pain Shortness of breath Non-ST elevation myocardial infarctions Coronary artery disease JINA CHURCH MD Nov 10, 2019 14:48
[2019-11-10] MEDS ORDERED: ACETAMINOPHEN 325 MG TABLET ONE (19:48)
[2019-11-10] MEDS: ENOXAPARIN 40 MG/0.4 ML (LOVENOX) SYR SC SCH (19:55)
[2019-11-10] MEDS: cloNIDine 0.2 MG (CATAPRES) TAB PO SCH (19:55)
[2019-11-10] MEDS ORDERED: ACETAMINOPHEN 325 MG TABLET PO PRN (20:00)
[2019-11-11] VITALS: BP 111/64
[2019-11-11] MEDS: NS IV 1000 ML 1,000 ML IV SCH (00:15)
[2019-11-11 03:50] VITALS: BP 145/82
[2019-11-11 03:53] LABS: HEMOGLOBIN 14.2 G/DL (13.3-17.7); MEAN PLATELET VOLUME 10.1 FL (7.4-10.4); RED CELL DISTRIBUTION WIDTH 13.4 % (10.0-14.5); WHITE BLOOD COUNT 10.3 10^3/uL (4.3-11.0)
[2019-11-11 04:25] LABS: CALCIUM 8.7 MG/DL (8.5-10.1); CREATININE SERUM 1.78 MG/DL (0.60-1.30); POTASSIUM 4.5 MMOL/L (3.6-5.0)
[2019-11-11] MEDS: inSUlin ASPART (NovoLOG) 1 UNIT/0.01 ML (CHARGE PER UNIT) SC SCH (05:45)
[2019-11-11] MEDS: ISOSORBIDE MONONITRATE 60 MG (IMDUR) TAB PO SCH (06:36)
[2019-11-11 07:40] VITALS: BP 137/76
--- NOTE | 2019-11-11 07:44 | Progress Note ---
Subjective Time Seen by a Provider: 07:39 Subjective/Events-last exam Patient not having any chest pain today. Spoke to patient about hyperventilation. Patient feels that time he is not getting enough air. Explained to patient about getting a pulse ox machine at pharmacy Objective Exam Vital Signs Date Time Temp Pulse Resp B/P (MAP) Pulse Ox O2 Delivery O2 Flow Rate FiO2 11/11/19 03:50 Room Air 11/11/19 03:50 36.4 79 18 145/82 (103) 95 Room Air 11/11/19 01:00 82 11/11/19 00:00 Room Air 11/11/19 00:00 36.6 72 18 111/64 (80) 95 Room Air 11/10/19 20:40 94 Room Air 11/10/19 20:00 37.0 11/10/19 19:45 Room Air 11/10/19 19:15 81 20 129/73 (91) 94 Room Air 11/10/19 19:00 83 11/10/19 18:00 75 19 123/75 (91) 95 Room Air 11/10/19 17:00 79 18 146/78 (100) 95 Room Air 11/10/19 16:30 72 18 137/81 (99) 96 Room Air 11/10/19 16:00 70 19 116/76 (89) 96 Room Air 11/10/19 16:00 Room Air 11/10/19 16:00 36.1 11/10/19 15:45 68 17 131/79 (96) 96 Room Air 11/10/19 15:30 71 18 133/83 (100) 95 Room Air 11/10/19 15:15 71 16 133/80 (97) 95 Room Air 11/10/19 15:00 36.6 76 18 110/71 (84) 96 Room Air 11/10/19 13:00 72 11/10/19 12:13 36.5 71 16 117/79 (92) 97 Room Air 11/10/19 12:00 Room Air 11/10/19 08:00 Room Air 11/10/19 08:00 Room Air 11/10/19 07:51 36.0 74 18 145/77 (99) 95 Room Air I & O 11/11/19 07:00 Intake Total 2915 ml Output Total 100 ml Balance 2815 ml Capillary Refill : Less Than 3 Seconds General Appearance: No Apparent Distress, WD/WN HEENT: Normal ENT Inspection Neck: Full Range of Motion, Normal Inspection Respiratory: Lungs Clear, No Accessory Muscle Use, No Respiratory Distress Cardiovascular: Regular Rate, Rhythm, No Murmur Gastrointestinal: non tender, soft Results Lab Laboratory Tests 11/11/19 03:31 Laboratory Tests 11/10/19 12:13: Glucometer 197H 11/10/19 16:00: Glucometer 156H 11/11/19 03:31: White Blood Count 10.3, Red Blood Count 4.80, Hemoglobin 14.2, Hematocrit 44, Mean Corpuscular Volume 91, Mean Corpuscular Hemoglobin 30, Mean Corpuscular Hemoglobin Concent 33, Red Cell Distribution Width 13.4, Platelet Count 232, M duglas Platelet Volume 10.1, Sodium Level 139, Potassium Level 4.5, Chloride Level 105, Carbon Dioxide Level 21, Anion Gap 13, Blood Urea Nitrogen 27H, Creatinine 1.78H, Estimat Glomerular Filtration Rate 37, BUN/Creatinine Ratio 15, Glucose Level 154H, Calcium Level 8.7 Assessment/Plan Assessment/Plan Assess & Plan/Chief Complaint Chest pain. Renal insufficiency. Diabetes. History of gallstones. . 11/11/2019. Chest pain. Short of breath. Non-ST elevated MA. Coronary artery disease. Renal insufficiency. Clinical Quality Measures Admission Status Admission Dx Chest pain. Diabetes. Renal insufficiency. Benign prostatic hypertrophy. Hypertension. Hyperlipidemia. Coronary artery disease AMI/AHF: ASA po Prior to arrival: Yes DVT/VTE Risk/Contraindication: Risk Factor Score Per Nursin RFS Level Per Nursing on Admit: 4+=Very High MUKUL HENNING DO Nov 11, 2019 07:44
--- NOTE | 2019-11-11 08:39 | Cardiology Progress Note ---
Subjective Date Seen by Provider: Nov 11, 2019 Time Seen by Provider: 08:37 Subjective/Events-last exam Patient is laying down in bed, still concerned about his dyspnea on exertion but his chest pain has improved Review of Systems General: No Chills, No Night Sweats, No Fatigue, No Malaise, No Appetite, No Other HEENT: No Head Aches, No Visual Changes, No Eye Pain, No Ear Pain, No Dysphasia, No Sinus Congestion, No Post Nasal Drip, No Sore Throat, No Other Pulmonary: No Dyspnea, No Cough, No Pleuritic Chest Pain, No Other Cardiovascular: No: Chest Pain, Palpitations, Orthopnea, Paroxysmal Noc. Dyspnea, Edema, Lt Headedness, Other Objective-Cardiology Exam Last Set of Vital Signs Vital Signs 11/11/19 03:50 Temp 36.4 Pulse 79 Resp 18 B/P (MAP) 145/82 (103) Pulse Ox 95 O2 Delivery Room Air Capillary Refill : Less Than 3 Seconds I&O Intake and Output 11/11/19 00:00 Intake Total 3765 ml Output Total 100 ml Balance 3665 ml Intake Oral 765 ml IV Total 3000 ml Output Urine Total 100 ml # Voids 5 General: Alert, Oriented X3, Cooperative HEENT: Atraumatic, PERRLA Neck: Supple, No JVD Lungs: Clear to Auscultation Heart: Regular Rate, Normal S1, Normal S2 Extremities: No Clubbing, No Edema Skin: No Rashes, No Breakdown Neuro: Normal Speech, Strength at 5/5 X4 Ext, Cranial Nerves 3-12 NL Results Lab Laboratory Tests 11/11/19 03:31 A/P-Cardiology Admission Diagnosis Chest pain Coronary artery disease Hypertension Hyperlipidemia Assessment/Plan Chest pain nonspecific etiology, reporting improvement. Cardiac catheterization showed small vessel disease Coronary artery disease, cardiac catheterization done on November 10, 2019 showing slow flow with mild diffuse ectasia due to small vessel disease, patient was started on aspirin and Plavix Increasing dyspnea, questionable anxiety and hyperventilation in addition to depression. Discussed management plan with Dr. Kelly and will start him on Zoloft. Hypertension, continue to monitor blood pressure as an outpatient Hx of Abdominal pain, hematemesis, seen by Dr. Kasper, had cholelithiasis. Currently reporting improvement, managed by primary care physician Acute on chronic renal failure, continue to monitor renal Hyperlipidemia, had elevated liver enzymes, currently unable to tolerate statin, monitor lipids and liver enzymes Diabetes mellitus, followed and managed by primary care physician. blood sugar under control at this time; will Continue to monitor Generalized weakness and loss of energy, recommended starting the wellness program at least for the first month in the hospital then he can graduate into going to the [facility] or exercise on his own. Clinical Quality Measures AMI/AHF: ASA po Prior to arrival: Yes DVT/VTE Risk/Contraindication: Risk Factor Score Per Nursin RFS Level Per Nursing on Admit: 4+=Very High JINA CHURCH MD Nov 11, 2019 08:39
[2019-11-11] MEDS ORDERED: SERT25TA PO (08:40)
[2019-11-11] MEDS ORDERED: CLOPIDOGREL 75 MG (PLAVIX) TABLET PO SCH (09:00)
[2019-11-11] MEDS ORDERED: ASPIRIN E.C. 81 MG (ECOTRIN) TAB PO SCH (09:00)
[2019-11-11] MEDS: meTOprolol SUCCINATE 100 MG (TOPROL XL) TAB PO SCH (10:19)
[2019-11-11] MEDS: FUROSEMIDE 40 MG (LASIX) TAB PO SCH (10:19)
[2019-11-11] MEDS: LOSARTAN 100 MG (COZAAR) TABLET PO SCH (10:20)
[2019-11-11] MEDS: ASPIRIN E.C. 81 MG (ECOTRIN) TAB PO SCH (10:20)
[2019-11-11] MEDS: PANTOPRAZOLE 20 MG TABLET (PROTONIX) PO SCH (10:20)
--- NOTE | 2019-11-11 11:04 | NUR ---
PT DC INSTRUCTIONS GIVEN AND PT VOICED NO FURTHER QUESTIONS. AWAITING FAMILY TO ARRIVE TO D/C HOME.
[2019-11-11 11:32] VITALS: BP 137/76
--- NOTE | 2019-11-11 11:32 | NUR ---
PT D/C HOME. ALL PERSONAL BELONGINGS WITH PATIENT. ALL D/C INSTRUCTIONS GIVEN TO PATIENT. HE VOICES UNDERSTANDING. SPOKE WITH DR HENNING REGARDING MEDICATION CHANGES PER DR CHURCH REQUEST. HE APPROVED. APPOINTMENT CARDS GIVEN TO PATIENT. PT SISTER ARRIVES TO PICK PT UP. TRANSPORTED VIA W/C WITH NO DIFFICULTIES. PT DRESSED SELF.
--- NOTE | 2019-11-11 19:06 | Clinic Account Progress/Dx ---
Clinic Account Progress/Dx DIAGNOSIS: Time Seen by Provider: 19:06 Chest pain. Coronary artery disease. Hypertension. Hyperlipidemia. Renal insufficiency. Diabetes. Depression. Benign prostatic hypertrophy MUKUL HENNING DO Nov 11, 2019 19:06
== END 2019-11-11 11:32 | disposition home or self-care (01) ==
LOC: EDUNIT# 08:56 → ER 08:57 → CATH 11:18 → ICU 11:18 → UNDOADMOB 11:18 → ICU 20:38 → CSD 20:38 → CATH 11-11 11:32 → UNDODISOB 11-11 11:32
PROVIDERS: ATTEND Family Medicine
DX: I25.10 Atherosclerotic heart disease of native coronary artery without angina pectoris (principal); E11.22 Type 2 diabetes mellitus with diabetic chronic kidney disease; I12.9 Hypertensive chronic kidney disease with stage 1 through stage 4 chronic kidney disease, or unspecified chronic kidney disease; I21.4 Non-ST elevation (NSTEMI) myocardial infarction; N18.3 Chronic kidney disease, stage 3 (moderate); E78.5 Hyperlipidemia, unspecified; N40.0 Benign prostatic hyperplasia without lower urinary tract symptoms; F32.9 Major depressive disorder, single episode, unspecified; Z88.2 Allergy status to sulfonamides; Z79.4 Long term (current) use of insulin; Z79.899 Other long term (current) drug therapy; Z79.82 Long term (current) use of aspirin; Z82.49 Family history of ischemic heart disease and other diseases of the circulatory system
CPT/HCPCS: 36415; 71045; 80048; 80053; 80061; 82962; 83735; 83874; 84484; 85025; 85027; 85610; 85730; 93005; 93041; 93458

== ENCOUNTER 2020-02-18 12:45 | Emergency (ER) | payer MEDICARE ==
[~2020-02-18] VITALS: Ht 172 cm; Wt 113.0 kg
[~2020-02-18 12:45] MED LIST changes: +ALBU18HF2 INH; -OMEP-280 PO; +OMEP20CA18 PO; +SERT25TA PO
--- NOTE | 2020-02-18 13:32 | ED Fever ---
History of Present Illness General Stated Complaint: FEVER;CHEST PAIN Source: patient Exam Limitations: no limitations History of Present Illness Date Seen by Provider: Feb 18, 2020 Time Seen by Provider: 13:30 Initial Comments to ER with complaints of fever for 2 weeks intermittently. Does not have a thermometer, these fevers are subjective. He states that he believes himself to of had a fever because of sweating. He reports some "congestion in my chest". But denies shortness of breath or cough. 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 Associated Symptoms: shortness of breath Allergies and Home Medications Allergies Coded Allergies: Sulfa (Sulfonamide Antibiotics) (Unverified Allergy, Unknown, 10/10/19) Home Medications Aspirin 81 Mg Tablet.dr, 81 MG PO DAILY, (Reported) Clonidine HCl 0.2 Mg Tablet, 0.2 MG PO HS, (Reported) Furosemide 40 Mg Tablet, 40 MG PO DAILY, (Reported) Insulin Detemir 100 Unit/1 Ml Insuln.pen, 32 UNITS SC DAILY, (Reported) Insulin Detemir 100 Unit/1 Ml Insuln.pen, 29 UNIT SQ HS, (Reported) Isosorbide Mononitrate 120 Mg Tab.er.24h, 120 MG PO DAILY, (Reported) Levofloxacin 250 Mg Tablet, 250 MG PO DAILY Prescribed by: CORTEZ CASTAÑEDA on 02/18/20 1408 Linagliptin 5 Mg Tablet, 5 MG PO DAILY, (Reported) Losartan Potassium 100 Mg Tablet, 100 MG PO DAILY, (Reported) Metoprolol Succinate 100 Mg Tab.er.24h, 100 MG PO DAILY, (Reported) Omeprazole 20 Mg Capsule.dr, 20 MG PO DAILY, (Reported) Sennosides/Docusate Sodium 1 Each Tablet, 2 TAB PO HS, (Reported) Sertraline HCl 25 Mg Tablet, 25 MG PO DAILY Prescribed by: JINA CHURCH on 11/11/19 0840 Tamsulosin HCl 0.4 Mg Cap, 0.4 MG PO DAILY, (Reported) Vit C/E/Zn/Coppr/Lutein/Zeaxan 1 Each Capsule, 1 CAP PO BID, (Reported) Patient Home Medication List Home Medication List Reviewed: Yes Review of Systems Review of Systems Constitutional: see HPI, diaphoresis EENTM: see HPI Respiratory: see HPI; No short of breath Cardiovascular: no symptoms reported; No chest pain Genitourinary: no symptoms reported Musculoskeletal: no symptoms reported Skin: no symptoms reported Psychiatric/Neurological: No Symptoms Reported Past Fjtlxch-Uiphii-Evshwg Hx Patient Social History 2nd Hand Smoke Exposure: No Recent Hopitalizations: Yes (October 10 ) Immunizations Up To Date Tetanus Booster (TDap): Less than 5yrs Date of Pneumonia Vaccine: Oct 10, 2013 Date of Influenza Vaccine: Aug 10, 2019 Seasonal Allergies Seasonal Allergies: No Past Medical History Surgeries: No Respiratory: Yes (Pneumonia patient states "when i was 1") Pneumonia Cardiac: Yes Heart Attack, Hypertension Neurological: No Genitourinary: Yes (Chronic kidney disease stage 3 ) Gastrointestinal: No Musculoskeletal: No Endocrine: 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 oz. 90.018259hr; 37.00 BMI Method:Estimated General Appearance: WD/WN, no apparent distress Eyes: Bilateral Eye Normal Inspection, Bilateral Eye PERRL, Bilateral Eye EOMI Neck: non-tender, full range of motion Respiratory: lungs clear, normal breath sounds, no respiratory distress, no accessory muscle use, other (lungs are clear without wheezing or crackles, good air movement) Cardiovascular: regular rate, rhythm, no murmur Gastrointestinal: normal bowel sounds, non tender, soft Neurologic/Psychiatric: alert, normal mood/affect, oriented x 3 Skin: normal color, warm/dry Progress/Results/Core Measures Suspected Sepsis SIRS Temperature: Pulse: Respiratory Rate: Laboratory Tests 02/18/20 13:00: White Blood Count 8.7 Blood Pressure / Mean: Laboratory Tests 02/18/20 13:00: Creatinine 1.63H, Platelet Count 315, Total Bilirubin 0.6 Results/Orders Lab Results Laboratory Tests Test 02/18/20 13:00 Range/Units White Blood Count 8.7 4.3-11.0 10^3/uL Red Blood Count 5.50 4.35-5.85 10^6/uL Hemoglobin 15.4 13.3-17.7 G/DL Hematocrit 48 40-54 % Mean Corpuscular Volume 88 80-99 FL Mean Corpuscular Hemoglobin 28 25-34 PG Mean Corpuscular Hemoglobin Concent 32 32-36 G/DL Red Cell Distribution Width 13.8 10.0-14.5 % Platelet Count 315 130-400 10^3/uL Mean Platelet Volume 9.9 7.4-10.4 FL Neutrophils (%) (Auto) 64 42-75 % Lymphocytes (%) (Auto) 25 12-44 % Monocytes (%) (Auto) 9 0-12 % Eosinophils (%) (Auto) 2 0-10 % Basophils (%) (Auto) 0 0-10 % Neutrophils # (Auto) 5.6 1.8-7.8 X 10^3 Lymphocytes # (Auto) 2.1 1.0-4.0 X 10^3 Monocytes # (Auto) 0.8 0.0-1.0 X 10^3 Eosinophils # (Auto) 0.2 0.0-0.3 10^3/uL Basophils # (Auto) 0.0 0.0-0.1 10^3/uL Sodium Level 139 135-145 MMOL/L Potassium Level 4.1 3.6-5.0 MMOL/L Chloride Level 106 98-107 MMOL/L Carbon Dioxide Level 22 21-32 MMOL/L Anion Gap 11 5-14 MMOL/L Blood Urea Nitrogen 17 7-18 MG/DL Creatinine 1.63 H 0.60-1.30 MG/DL Estimat Glomerular Filtration Rate 41 BUN/Creatinine Ratio 10 Glucose Level 201 H 70-105 MG/DL Calcium Level 8.8 8.5-10.1 MG/DL Corrected Calcium 9.2 8.5-10.1 MG/DL Total Bilirubin 0.6 0.1-1.0 MG/DL Aspartate Amino Transf (AST/SGOT) 22 5-34 U/L Alanine Aminotransferase (ALT/SGPT) 16 0-55 U/L Alkaline Phosphatase 90 40-136 U/L Troponin I < 0.028 <0.028 NG/ML C-Reactive Protein High Sensitivity 0.87 H 0.00-0.50 MG/DL B-Type Natriuretic Peptide 86.9 <100.0 PG/ML Total Protein 7.8 6.4-8.2 GM/DL Albumin 3.5 3.2-4.5 GM/DL My Orders Orders - CORTEZ CASTAÑEDA APRN Cbc With Automated Diff (02/18/20 13:05) Comprehensive Metabolic Panel (02/18/20 13:05) Troponin I (02/18/20 13:05) BNP (02/18/20 13:05) Chest 1 View, Ap/Pa Only (02/18/20 13:05) Ua Culture If Indicated (02/18/20 13:05) Procalcitonin (Pct) (02/18/20 13:37) Hs C Reactive Protein (02/18/20 13:37) Levofloxacin Tablet (Levaquin Tablet) (02/18/20 14:15) Vital Signs/I&O 02/18/20 13:08 Temp 37.0 Pulse 87 Resp 20 B/P (MAP) 164/97 (119) Pulse Ox 95 O2 Delivery Room Air Capillary Refill : Diagnostic Imaging Diagonstic Imaging: Xray Plain Films/CT/US/NM/MRI: chest Comments NAME: [facility] REC#: [id number] PT STATUS: REG ER : 1940 PHYSICIAN: CORTEZ CASTAÑEDA APRN ADMIT DATE: 02/18/20/ER Draft Date of Exam:02/18/20 CHEST 1 VIEW, AP/PA ONLY EXAMINATION: Chest 1 view HISTORY: Fever. Chest pains. COMPARISON: Chest radiograph on 11/09/2019. FINDINGS: The lung volumes are normal. A small amount of patchy opacities are seen in the left lung base. No focal consolidations. No large pleural effusion or pneumothorax is seen. The cardiomediastinal silhouette is prominent. No acute osseous abnormality is seen. IMPRESSION: 1. Patchy opacities in the left lung base, which may represent atelectasis or infection. No large pleural effusion. 2. Stable cardiomegaly. No overt pulmonary edema. Dictated on workstation # [id number] Dict: 02/18/20 1353 Trans: 02/18/20 1355 CVB [id number] Interpreted by: ARYA NUNN DO Electronically signed by: Departure Communication (Admissions) [id number] requests to be swab for coronavirus. I discussed with him that with 2 weeks of symptoms, they should've peaked by this point and he is hemodynamically stable with normal labs and minimal change on x-ray, there is positive or negative will not change treatment and for that reason there is no point in testing. However he elected to go ahead and get tested. Impression Primary Impression: Pneumonia Qualified Codes: J18.1 - Lobar pneumonia, unspecified organism Disposition: HOME, SELF-CARE Condition: Stable Departure-Patient Inst. Decision time for Depature: 14:05 Referrals: LUPE WHITING MD (PCP/Family) Primary Care Physician Patient Instructions: Community-Acquired Pneumonia in Adults Add. Discharge Instructions: take antibiotics as directed. 2. Follow-up with Dr. Dr. Kelly 3. Return to ER for any concerns. Scripts Levofloxacin (Levofloxacin) 250 Mg Tablet 250 MG PO DAILY, #6 TAB Prov: CORTEZ CASTAÑEDA DISTRICT MANAGER 02/18/20 CORTEZ CASTAÑEDA APRN Feb 18, 2020 13:32
[2020-02-18 13:37] LABS: BASOPHILS % (AUTO) 0 % (0-10); EOSINOPHILS # (AUTO) 0.2 10^3/uL (0.0-0.3); EOSINOPHILS % (AUTO) 2 % (0-10); HEMATOCRIT 48 % (40-54); HEMOGLOBIN 15.4 G/DL (13.3-17.7); LYMPHOCYTES # (AUTO) 2.1 X 10^3 (1.0-4.0); LYMPHOCYTES % (AUTO) 25 % (12-44); MEAN CORPUSCULAR HEMOGLOBIN 28 PG (25-34); MEAN CORPUSCULAR HGB CONC 32 G/DL (32-36); MEAN CORPUSCULAR VOLUME 88 FL (80-99); MEAN PLATELET VOLUME 9.9 FL (7.4-10.4); MONOCYTES # (AUTO) 0.8 X 10^3 (0.0-1.0); MONOCYTES % (AUTO) 9 % (0-12); NEUTROPHILS # (AUTO) 5.6 X 10^3 (1.8-7.8); NEUTROPHILS % (AUTO) 64 % (42-75); PLATELET COUNT 315 10^3/uL (130-400); RED CELL DISTRIBUTION WIDTH 13.8 % (10.0-14.5); WHITE BLOOD COUNT 8.7 10^3/uL (4.3-11.0)
[2020-02-18 13:43] LABS: ALBUMIN 3.5 GM/DL (3.2-4.5)
[2020-02-18 13:44] LABS: CHLORIDE 106 MMOL/L (98-107); POTASSIUM 4.1 MMOL/L (3.6-5.0); SODIUM 139 MMOL/L (135-145)
[2020-02-18 13:45] LABS: CALCIUM 8.8 MG/DL (8.5-10.1)
[2020-02-18 13:46] LABS: GLUCOSE 201 MG/DL (70-105); TOTAL PROTEIN 7.8 GM/DL (6.4-8.2)
[2020-02-18 13:47] LABS: CARBON DIOXIDE 22 MMOL/L (21-32)
[2020-02-18 13:48] LABS: BILIRUBIN,TOTAL 0.6 MG/DL (0.1-1.0)
[2020-02-18 13:49] LABS: ALKALINE PHOSPHATASE 90 U/L (40-136)
[2020-02-18 13:50] LABS: CREATININE SERUM 1.63 MG/DL (0.60-1.30); GFR ESTIMATED 41
[2020-02-18 13:51] LABS: BUN/CREATININE RATIO 10
[2020-02-18 13:52] LABS: ALANINE AMINOTRANSFERASE 16 U/L (0-55)
--- NOTE | 2020-02-18 13:55 | Diagnostic Imaging Report ---
EXAMINATION: Chest 1 view HISTORY: Fever. Chest pains. COMPARISON: Chest radiograph on 11/09/2019. FINDINGS: The lung volumes are normal. A small amount of patchy opacities are seen in the left lung base. No focal consolidations. No large pleural effusion or pneumothorax is seen. The cardiomediastinal silhouette is prominent. No acute osseous abnormality is seen. IMPRESSION: 1. Patchy opacities in the left lung base, which may represent atelectasis or infection. No large pleural effusion. 2. Stable cardiomegaly. No overt pulmonary edema. Dictated by: Dictated on workstation # [id number]
[2020-02-18] MEDS ORDERED: LEVO250T46 PO (14:08)
[2020-02-18] MEDS ORDERED: LEVOFLOXACIN 500 MG TAB (LEVAQUIN) PO ONE (14:15)
--- OUTSIDE RECORDS SUMMARY | 2020-02-18 14:16 | XMS REPORT | Continuity of Care Document ---
Author Organization Unknown Address Unknown Phone Unavailable Allergies Active Description Code Type Severity Reaction Onset Reported/Identified Relationship to Patient Clinical Status Yes SULFA SULFA Unknown N/A 08/09/2018 Yes Sulfa (Sulfonamide Antibiotics) [id number] Drug Allergy Unknown N/A 019 Medications There is no data. Problems Date Dx Coded Attending Type Code Diagnosis Diagnosed By 02/26/2018 LUPE WHITING MD, Ot R22. 41 LOCALIZED SWELLING, MASS AND LUMP, RIGHT 02/26/2018 LUPE WHITING MD, Ot R22. 41 LOCALIZED SWELLING, MASS AND LUMP, RIGHT 02/26/2018 LUPE WHITING MD Ot R22. 41 LOCALIZED SWELLING, MASS AND LUMP, RIGHT 02/27/2018 LUPE WHITING MD Ot R22. 41 LOCALIZED SWELLING, MASS AND LUMP, RIGHT 02/27/2018 LUPE WHITING MD Ot R79. 1 ABNORMAL COAGULATION PROFILE 03/02/2018 LUPE WHITING MD Ot R22. 41 LOCALIZED SWELLING, MASS AND LUMP, RIGHT 03/02/2018 LUPE WHITING MD Ot R79. 1 ABNORMAL COAGULATION PROFILE 03/18/2018 LUPE WHITING MD Ot R22. 41 LOCALIZED SWELLING, MASS AND LUMP, RIGHT 03/18/2018 LUPE WHITING MD Ot R79. 1 ABNORMAL COAGULATION PROFILE 07/09/2018 LUPE WHITING MD Ot R22. 41 LOCALIZED SWELLING, MASS AND LUMP, RIGHT 07/09/2018 LUPE WHITING MD Ot R79. 1 ABNORMAL COAGULATION PROFILE 08/02/2018 SANIA BRAR DO Ot 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 MELLITUS WITH HYPERGLYCE 08/05/2018 SANIA BRAR DO Ot 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 MELLITUS WITH HYPERGLYCE 08/09/2018 SANIA BRAR DO Ot 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 MELLITUS WITH HYPERGLYCE 08/09/2018 PATRICK ALVAREZ Ot E11.649 TYPE 2 DIABETES MELLITUS WITH HYPOGLYCEM 08/09/2018 BERNOT, PATRICK Ot E16.2 HYPOGLYCEMIA, UNSPECIFIED 08/09/2018 BERNOT, PATRICK Ot Z88.2 ALLERGY STATUS TO SULFONAMIDES STATUS 08/11/2018 BERNOT, PATRICK Ot E11.649 TYPE 2 DIABETES MELLITUS WITH HYPOGLYCEM 08/11/2018 BERNOT, PATRICK Ot E16.2 HYPOGLYCEMIA, UNSPECIFIED 08/11/2018 BERNOT, PATRICK Ot Z88.2 ALLERGY STATUS TO SULFONAMIDES STATUS 10/07/2018 JOHANNE ACMPOS, LUPE Vizcarra Ot Z29. 8 ENCOUNTER FOR OTHER SPECIFIED PROPHYLACT 10/09/2018 DOUTHKENNY LOPEZ APRN Ot N18.3 CHRONIC KIDNEY DISEASE, STAGE 3 (MODERAT 10/09/2018 KENNY CENTENO APRN Ot N18.3 CHRONIC KIDNEY DISEASE, STAGE 3 (MODERAT 10/09/2018 JOHANNE CAMPOS, LUPE Vizcarra Ot Z29. 8 ENCOUNTER FOR OTHER SPECIFIED PROPHYLACT 10/12/2018 DOKENNY JOYA APRN Ot N18.3 CHRONIC KIDNEY DISEASE, STAGE 3 (MODERAT 10/15/2018 CORTEZ CASTAÑEDA GLASS MOULD CLEANER Ot 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 MELLITUS WITH HYPERGLYCE 10/15/2018 CORTEZ CASTAÑEDA APRN Ot R73 .9 HYPERGLYCEMIA, UNSPECIFIED 10/15/2018 CORTEZ CASTAÑEDA APRN Ot Z79 .4 ARTILLERY MAINTENANCE SUPERVISOR (CURRENT) USE OF INSULIN 10/15/2018 CORTEZ CASTAÑEDA GLASS MOULD CLEANER Ot Z88 .2 ALLERGY STATUS TO SULFONAMIDES STATUS 10/17/2018 CORTEZ CASTAÑEDA GLASS MOULD CLEANER Ot 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 MELLITUS WITH HYPERGLYCE 10/17/2018 CORTEZ CASTAÑEDA GLASS MOULD CLEANER Ot R73 .9 HYPERGLYCEMIA, UNSPECIFIED 10/17/2018 CORTEZ CASTAÑEDA GLASS MOULD CLEANER Ot Z79 .4 PRISON (CURRENT) USE OF INSULIN 10/17/2018 CORTEZ CASTAÑEDA GLASS MOULD CLEANER Ot Z88 .2 ALLERGY STATUS TO SULFONAMIDES STATUS 10/20/2018 CORTEZ CASTAÑEDA GLASS MOULD CLEANER Ot 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 MELLITUS WITH HYPERGLYCE 10/20/2018 CORTEZ CASTAÑEDA APRN Ot R73 .9 HYPERGLYCEMIA, UNSPECIFIED 10/20/2018 CORTEZ CASTAÑEDA GLASS MOULD CLEANER Ot Z79 .4 ARTILLERY MAINTENANCE SUPERVISOR (CURRENT) USE OF INSULIN 10/20/2018 CORTEZ CASTAÑEDA APRN Ot Z88 .2 ALLERGY STATUS TO SULFONAMIDES STATUS 11/04/2018 MIGNON CAMPOS, SHARON Kiran Ot E11.649 TYPE 2 DIABETES MELLITUS WITH HYPOGLYCEM 11/04/2018 SHARON CROW MD Ot E16.2 HYPOGLYCEMIA, UNSPECIFIED 11/04/2018 SHARON CROW MD Ot Z88.2 ALLERGY STATUS TO SULFONAMIDES STATUS 11/06/2018 SHARON CROW MD Ot E11.649 TYPE 2 DIABETES MELLITUS WITH HYPOGLYCEM 11/06/2018 SHARON CROW MD Ot E16.2 HYPOGLYCEMIA, UNSPECIFIED 11/06/2018 MIGNON CAMPOS, SHARON Kiran Ot Z88.2 ALLERGY STATUS TO SULFONAMIDES STATUS 11/07/2018 BERNOT, PATRICK Ot E11.22 TYPE 2 DIABETES MELLITUS W DIABETIC RECRUITER MANAGER 11/07/2018 BERNOT, PATRICK Ot N18.3 CHRONIC KIDNEY DISEASE, STAGE 3 (MODERAT 11/07/2018 BERNOT, PATRICK Ot R73.09 OTHER ABNORMAL GLUCOSE 11/07/2018 BERNOT, PATRICK Ot Z88.2 ALLERGY STATUS TO SULFONAMIDES STATUS 11/08/2018 BERNOT, PATRICK Ot E11.9 TYPE 2 DIABETES MELLITUS WITHOUT COMPLIC 11/08/2018 BERNOT, PATRICK Ot N18.3 CHRONIC KIDNEY DISEASE, STAGE 3 (MODERAT 11/08/2018 BERNOT, PATRICK Ot R73.09 OTHER ABNORMAL GLUCOSE 11/08/2018 BERNOT, PATRICK Ot Z88.2 ALLERGY STATUS TO SULFONAMIDES STATUS 11/10/2018 BERNOT, PATRICK Ot E11.9 TYPE 2 DIABETES MELLITUS WITHOUT COMPLIC 11/10/2018 BERNOT, PATRICK Ot N18.3 CHRONIC KIDNEY DISEASE, STAGE 3 (MODERAT 11/10/2018 BERNOT, PATRICK Ot R73.09 OTHER ABNORMAL GLUCOSE 11/10/2018 BERNOT, PATRICK Ot Z88.2 ALLERGY STATUS TO SULFONAMIDES STATUS 11/10/2018 BERNOT, PATRICK Ot E11.22 TYPE 2 DIABETES MELLITUS W DIABETIC RECRUITER MANAGER 11/10/2018 BERNOT, PATRICK Ot N18.3 CHRONIC KIDNEY DISEASE, STAGE 3 (MODERAT 11/10/2018 BERNOT, PATRICK Ot R73.09 OTHER ABNORMAL GLUCOSE 11/10/2018 BERNOT, PATRICK Ot Z88.2 ALLERGY STATUS TO SULFONAMIDES STATUS 11/11/2018 KENNY CENTENO APRN Ot E11.22 TYPE 2 DIABETES MELLITUS W DIABETIC RECRUITER MANAGER 11/11/2018 KENNY CENTENO APRN Ot E78.5 HYPERLIPIDEMIA, UNSPECIFIED 11/11/2018 KENNY CENTENO APRN Ot I12.9 HYPERTENSIVE CHRONIC KIDNEY DISEASE W ST 11/11/2018 KENNY CENTENO APRN Ot N13.8 OTHER OBSTRUCTIVE AND REFLUX UROPATHY 11/11/2018 KENNY CENTENO APRN Ot N18.3 CHRONIC KIDNEY DISEASE, STAGE 3 (MODERAT 11/11/2018 KENNY CENTENO APRN Ot R33.9 RETENTION OF URINE, UNSPECIFIED 11/11/2018 KENNY CENTENO APRN Ot Z79.1 PRISON (CURRENT) USE OF NON-STEROIDAL 11/14/2018 BERNOT, PATRICK Ot E11.9 TYPE 2 DIABETES MELLITUS WITHOUT COMPLIC 11/14/2018 BERNOT, PATRICK Ot N18.3 CHRONIC KIDNEY DISEASE, STAGE 3 (MODERAT 11/14/2018 BERNOT, PATRICK Ot R73.09 OTHER ABNORMAL GLUCOSE 11/14/2018 BERNOT, PATRICK Ot Z88.2 ALLERGY STATUS TO SULFONAMIDES STATUS 12/06/2018 JOHANNE CAMPOS, LUPE Vizcarra Ot Z29. 8 ENCOUNTER FOR OTHER SPECIFIED PROPHYLACT 12/17/2018 KENNY CENTENO APRN Ot E11.22 TYPE 2 DIABETES MELLITUS W DIABETIC RECRUITER MANAGER 12/17/2018 KENNY CENTENO APRN Ot E78.5 HYPERLIPIDEMIA, UNSPECIFIED 12/17/2018 KENNY CENTENO APRN Ot I12.9 HYPERTENSIVE CHRONIC KIDNEY DISEASE W ST 12/17/2018 KENNY CENTENO APRN Ot N13.8 OTHER OBSTRUCTIVE AND REFLUX UROPATHY 12/17/2018 KENNY CENTENO APRN Ot N18.3 CHRONIC KIDNEY DISEASE, STAGE 3 (MODERAT 12/17/2018 KENNY CENTENO APRN Ot R33.9 RETENTION OF URINE, UNSPECIFIED 12/17/2018 KENNY CENTENO APRN Ot Z79.1 ARTILLERY MAINTENANCE SUPERVISOR (CURRENT) USE OF NON-STEROIDAL 10/10/2019 SANIA BRAR DO Ot 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 MELLITUS WITH HYPERGLYCE 10/12/2019 LUPE WHITING MD Ot Z29. 8 ENCOUNTER FOR OTHER SPECIFIED PROPHYLACT 10/13/2019 MARIO SULLIVAN MD Ot A41. 9 SEPSIS, UNSPECIFIED ORGANISM 10/13/2019 MARIO SULLIVAN MD Ot E11. 9 TYPE 2 DIABETES MELLITUS WITHOUT COMPLIC 10/13/2019 MARIO SULLIVAN MD Ot E66. 9 OBESITY, UNSPECIFIED 10/13/2019 MARIO SULLIVAN MD Ot I12. 9 HYPERTENSIVE CHRONIC KIDNEY DISEASE W ST 10/13/2019 MARIO SULLIVAN MD Ot I21. 4 NON-ST ELEVATION (NSTEMI) MYOCARDIAL INF 10/13/2019 MARIO SULLIVAN MD Ot I25. 10 ATHSCL HEART DISEASE OF [place] CORONARY 10/13/2019 MARIO SULLIVAN MD Ot K21. 9 GASTRO-ESOPHAGEAL REFLUX DISEASE WITHOUT 10/13/2019 MARIO SULLIVAN MD Ot K80. 00 CALCULUS OF GALLBLADDER W ACUTE CHOLECYS 10/13/2019 MARIO SULLIVAN MD Ot K92. 0 HEMATEMESIS 10/13/2019 MARIO SULLIVAN MD Ot N17. 9 ACUTE KIDNEY FAILURE, UNSPECIFIED 10/13/2019 MARIO SULLIVAN MD Ot N18. 3 CHRONIC KIDNEY DISEASE, STAGE 3 (MODERAT 10/13/2019 MARIO SULLIVAN MD Ot N40. 0 BENIGN PROSTATIC HYPERPLASIA WITHOUT LOW 10/13/2019 MARIO SULLIVAN MD Ot R53. 1 WEAKNESS 10/13/2019 MARIO SULLIVAN MD Ot R65. 20 SEVERE SEPSIS WITHOUT SEPTIC SHOCK 10/13/2019 MARIO SULLIVAN MD Ot R79. 89 OTHER SPECIFIED ABNORMAL FINDINGS OF BLO 10/13/2019 MARIO SULLIVAN MD Ot S50.312A ABRASION OF LEFT ELBOW, INITIAL ENCOUNTE 10/13/2019 MARIO SULLIVAN MD Ot S80.211A ABRASION, RIGHT KNEE, INITIAL ENCOUNTER 10/13/2019 MARIO SULLIVAN MD Ot S80.212A ABRASION, LEFT KNEE, INITIAL ENCOUNTER 10/13/2019 MARIO SULLIVAN MD Ot W19.XXXA UNSPECIFIED FALL, INITIAL ENCOUNTER 10/13/2019 MARIO SULLIVAN MD Ot Z68. 41 BODY MASS INDEX (BMI) 40.0-44.9, ADULT 10/13/2019 MARIO SULLIVAN MD Ot Z79. 4 PRISON (CURRENT) USE OF INSULIN 10/13/2019 MARIO SULLIVAN MD Ot Z83. 79 FAMILY HISTORY OF OTHER DISEASES OF THE 10/14/2019 CRAFT DO, MARINA L Ot E11.2 2 TYPE 2 DIABETES MELLITUS W DIABETIC RECRUITER MANAGER 10/14/2019 CRAFT DO, MARINA L Ot I12.9 HYPERTENSIVE CHRONIC KIDNEY DISEASE W ST 10/14/2019 CRAFT DO, MARINA L Ot I25.2 OLD MYOCARDIAL INFARCTION 10/14/2019 CRAFT DO, MARINA L Ot J06.9 ACUTE UPPER RESPIRATORY INFECTION, UNSPE 10/14/2019 CRAFT DO, MARINA L Ot N18.3 CHRONIC KIDNEY DISEASE, STAGE 3 (MODERAT 10/14/2019 CRAFT DO, MARINA L Ot R11.1 0 VOMITING, UNSPECIFIED 10/14/2019 CRAFT DO, MARINA L Ot R74.8 ABNORMAL LEVELS OF OTHER SERUM ENZYMES 10/14/2019 CRAFT DO, MARINA L Ot Z79.4 PRISON (CURRENT) USE OF INSULIN 10/14/2019 CRAFT DO, MARINA L Ot Z79.8 2 PRISON (CURRENT) USE OF ASPIRIN 10/14/2019 CRAFT DO, MARINA L Ot Z82.4 9 FAMILY HX OF ISCHEM HEART DIS AND OTH DI 10/14/2019 CRAFT DO, MARINA L Ot Z88.2 ALLERGY STATUS TO SULFONAMIDES STATUS 11/11/2019 GELLENDER DO, MUKUL Cho Ot E11.22 TYPE 2 DIABETES MELLITUS W DIABETIC RECRUITER MANAGER 11/11/2019 GELLENDER DO, MUKUL Cho Ot E78.5 HYPERLIPIDEMIA, UNSPECIFIED 11/11/2019 GELLENDER DOMUKUL Ot F32.9 MAJOR DEPRESSIVE DISORDER, SINGLE EPISOD 11/11/2019 GELLENDER DO, MUKUL Cho Ot I12.9 HYPERTENSIVE CHRONIC KIDNEY DISEASE W ST 11/11/2019 GELLENDER DOMUKUL Ot I21.4 NON-ST ELEVATION (NSTEMI) MYOCARDIAL INF 11/11/2019 GELLENDER DO, MUKUL Cho Ot I25.10 ATHSCL HEART DISEASE OF [place] CORONARY 11/11/2019 GELLENDER DO, MUKUL Cho Ot N18.3 CHRONIC KIDNEY DISEASE, STAGE 3 (MODERAT 11/11/2019 GELLENDER DO, MUKUL Cho Ot N40.0 BENIGN PROSTATIC HYPERPLASIA WITHOUT LOW 11/11/2019 GELLENDER DO, MUKUL Cho Ot Z79.4 PRISON (CURRENT) USE OF INSULIN 11/11/2019 GELLENDER DO, MUKUL Cho Ot Z79.82 ARTILLERY MAINTENANCE SUPERVISOR (CURRENT) USE OF ASPIRIN 11/11/2019 GELLENDER DO, MUKUL Cho Ot Z79.899 OTHER ARTILLERY MAINTENANCE SUPERVISOR (CURRENT) DRUG THERAPY 11/11/2019 GELLENDER DO, MUKUL Cho Ot Z82.49 FAMILY HX OF ISCHEM HEART DIS AND OTH DI 11/11/2019 GELLENDER DO, MUKUL Cho Ot Z88.2 ALLERGY STATUS TO SULFONAMIDES STATUS 11/26/2019 GELLENDER DO, MUKUL Cho Ot E11.22 TYPE 2 DIABETES MELLITUS W DIABETIC RECRUITER MANAGER 11/26/2019 GELLENDER DO, MUKUL Cho Ot E78.5 HYPERLIPIDEMIA, UNSPECIFIED 11/26/2019 GELLENDER DO, MUKUL Cho Ot F32.9 MAJOR DEPRESSIVE DISORDER, SINGLE EPISOD 11/26/2019 GELLENDER DO, MUKUL Cho Ot I12.9 HYPERTENSIVE CHRONIC KIDNEY DISEASE W ST 11/26/2019 GELLENDER DO, MUKUL Cho Ot I21.4 NON-ST ELEVATION (NSTEMI) MYOCARDIAL INF 11/26/2019 GELLENDER DO, MUKUL Cho Ot I25.10 ATHSCL HEART DISEASE OF [place] CORONARY 11/26/2019 GELLENDER DO, MUKUL Cho Ot N18.3 CHRONIC KIDNEY DISEASE, STAGE 3 (MODERAT 11/26/2019 GELLENDER DO, MUKUL Cho Ot N40.0 BENIGN PROSTATIC HYPERPLASIA WITHOUT LOW 11/26/2019 GELLENDER DO, MUKUL Cho Ot Z79.4 PRISON (CURRENT) USE OF INSULIN 11/26/2019 GELLENDER DO, MUKUL Cho Ot Z79.82 PRISON (CURRENT) USE OF ASPIRIN 11/26/2019 GELLENDER DO, MUKUL Cho Ot Z79.899 OTHER ARTILLERY MAINTENANCE SUPERVISOR (CURRENT) DRUG THERAPY 11/26/2019 GELLENDER DO, MUKUL Cho Ot Z82.49 FAMILY HX OF ISCHE[place] HEART DIS AND OTH DI 11/26/2019 GELLENDER DO, MUKUL Cho Ot Z88.2 ALLERGY STATUS TO SULFONAMIDES STATUS 12/29/2019 GELLENDER DO, MUKUL Cho Ot E11.22 TYPE 2 DIABETES MELLITUS W DIABETIC RECRUITER MANAGER 12/29/2019 GELLENDER DO, MUKUL Cho Ot E78.5 HYPERLIPIDEMIA, UNSPECIFIED 12/29/2019 GELLENDER DO, MUKUL Cho Ot F32.9 MAJOR DEPRESSIVE DISORDER, SINGLE EPISOD 12/29/2019 [facility] MUKUL Cho Ot I12.9 HYPERTENSIVE CHRONIC KIDNEY DISEASE W ST 12/29/2019 [facility] MUKUL Cho Ot I21.4 NON-ST ELEVATION (NSTEMI) MYOCARDIAL INF 12/29/2019 [facility] M[facility] Cho Ot I25.10 ATHSCL HEART DISEASE OF [place] CORONARY 12/29/2019 [facility], MUKUL Cho Ot N18.3 CHRONIC KIDNEY DISEASE, STAGE 3 (MODERAT [facility]/29/[facility] Ot N40.0 BENIGN PROSTATIC HYPERPLASIA WITHOUT LOW 12/29/[facility]UL Cho Ot Z79.4 PRISON (CURRENT) USE OF INSULIN 12/29/2019 [facility], MUKUL Cho Ot Z79.82 ARTILLERY MAINTENANCE SUPERVISOR (CURRENT) USE OF ASPIRIN 12/29/2019 [facility], MUKUL Cho Ot Z79.899 OTHER PRISON (CURRENT) DRUG THERAPY 12/29/2019 [facility], MUKUL Cho Ot Z82.49 FAMILY HX OF ISCHE[place] HEART DIS AND OTH DI 12/29/2019 [facility], MUKUL Cho Ot Z88.2 ALLERGY STATUS TO SULFONAMIDES STATUS Procedures There is no data. Results Test Result Range Capillary blood glucose measurement by g lucometer (mass/volume) - 08/09/18 10:46 Capillary blood glucose measurement by glucometer (mas s/volume) 102 mg/dL 70-110 Complete urinalysis with reflex to cultu re - 08/09/18 11:04 Urine color determination YELLOW NRG Urine clarity determination CLEAR NR G Urine pH measurement by test strip 6 5-9 Specific gravity of urine by test strip 1.015 1.016-1.022 Urine protein assay by test strip, semi-quantitative 2+ NEGATIVE Urine glucose detection by automated test strip NE GATIVE NEGATIVE Erythrocytes detection in urine sediment by light micr oscopy 2+ NEGATIVE Urine ketones detection by automated test strip NE GATIVE NEGATIVE Urine nitrite detection by test strip NEGATIVE NEGATIVE Urine total bilirubin detection by test strip NEGA TIVE NEGATIVE Urine urobilinogen measurement by automated test strip (mass/volume) NORMAL NORMAL Urine leukocyte esterase detection by dipstick 2+ NEGATIVE Automated urine sediment erythrocyte cou nt by microscopy (number/high power field) NONE NRG Automated urine sediment leukocyte count by microscopy (number/high power field) [HPF] NRG Bacteria detection in urine sediment by light microsco py TRACE NRG Squamous epithelial cells detection in u rine sediment by light microscopy 2-5 NRG Crystals detection in urine sediment by light microsco py NONE NRG Casts detection in urine sediment by light microscopy NONE NRG Mucus detection in urine sediment by light microscopy NEGATIVE NRG Complete urinalysis with reflex to culture NO NRG Capillary blood glucose measurement by g lucometer (mass/volume) - 08/09/18 11:13 Capillary blood glucose measurement by glucometer (mas s/volume) 118 mg/dL 70-110 Complete blood count (CBC) with automate d white blood cell (WBC) differential - 08/09/18 11:25 Blood leukocytes automated count (number/volume) 7.8 10*3/uL 4.3-11.0 Blood erythrocytes automated count (number/volume) 5.07 10*6/uL 4.35-5.85 Venous blood hemoglobin measurement (mass/volume) 15.1 g/dL 13.3-17.7 Blood hematocrit (volume fraction) 45 % 40-54 Automated erythrocyte mean corpuscular volume 89 [ foz_us] 80-99 Automated erythrocyte mean corpuscular h emoglobin (mass per erythrocyte) 30 pg 25-34 Automated erythrocyte mean corpuscular h emoglobin concentration measurement (mass/volume) 33 g/dL 32-36 Automated erythrocyte distribution width ratio 13. 8 % 10.0- 14.5 Automated blood platelet count (count/volume) 258 10*3/uL 130-400 Automated blood platelet mean volume measurement 10.1 [foz_us] 7.4-10.4 Automated blood neutrophils/100 leukocytes 62 % 42-75 Automated blood lymphocytes/100 leukocytes 23 % 12-44 Blood monocytes/100 leukocytes 12 % 0-12 Automated blood eosinophils/100 leukocytes 2 % 0-10 Automated blood basophils/100 leukocytes 0 % 0-10 Blood neutrophils automated count (number/volume) 4.9 10*3 1.8-7.8 Blood lymphocytes automated count (number/volume) 1.8 10*3 1.0-4.0 Blood monocytes automated count (number/volume) 1. 0 10*3 0.0-1.0 Automated eosinophil count 0.2 10*3/uL 0 .0-0.3 Automated blood basophil count (count/volume) 0.0 10*3/uL 0.0-0.1 Comprehensive metabolic panel - 08/09/18 11:25 Serum or plasma sodium measurement (moles/volume) 140 mmol/L 135-145 Serum or plasma potassium measurement (moles/volume) 3.9 mmol/L 3.6-5.0 Serum or plasma chloride measurement (moles/volume) 107 mmol/L 98-107 Carbon dioxide 22 mmol/L 21-32 Serum or plasma anion gap determination (moles/volume) 11 mmol/L 5-14 Serum or plasma urea nitrogen measurement (mass/volume ) 22 mg/dL 7-18 Serum or plasma creatinine measurement (mass/volume) 1.65 mg/dL 0.60-1.30 Serum or plasma urea nitrogen/creatinine mass ratio 13 NRG Serum or plasma creatinine measurement w ith calculation of estimated glomerular filtration rate 40 NRG Serum or plasma glucose measurement (mass/volume) 115 mg/dL 70-105 Serum or plasma calcium measurement (mass/volume) 9.0 mg/dL 8.5-10.1 Serum or plasma total bilirubin measurement (mass/volu me) 0.5 mg/dL 0.1-1.0 Serum or plasma alkaline phosphatase so surement (enzymatic activity/volume) 79 U/L 40-136 Serum or plasma aspartate aminotransfera se measurement (enzymatic activity/volume) 21 U/L 5-34 Serum or plasma alanine aminotransferase measurement (enzymatic activity/volume) 23 U/L 0-55 Serum or plasma protein measurement (mass/volume) 7.6 g/dL 6.4-8.2 Serum or plasma albumin measurement (mass/volume) 3.7 g/dL 3.2-4.5 CALCIUM CORRECTED 9.2 mg/dL 8.5-10.1 Capillary blood glucose measurement by g lucometer (mass/volume) - 08/09/18 12:50 Capillary blood glucose measurement by glucometer (mas s/volume) 115 mg/dL 70-110 Capillary blood glucose measurement by g lucometer (mass/volume) - 10/15/18 14:47 Capillary blood glucose measurement by glucometer (mas s/volume) 123 mg/dL 70-110 Complete blood count (CBC) with automate d white blood cell (WBC) differential - 10/15/18 15:05 Blood leukocytes automated count (number/volume) 9.6 10*3/uL 4.3-11.0 Blood erythrocytes automated count (number/volume) 5.26 10*6/uL 4.35-5.85 Venous blood hemoglobin measurement (mass/volume) 15.4 g/dL 13.3-17.7 Blood hematocrit (volume fraction) 47 % 40-54 Automated erythrocyte mean corpuscular volume 89 [ foz_us] 80-99 Automated erythrocyte mean corpuscular h emoglobin (mass per erythrocyte) 29 pg 25-34 Automated erythrocyte mean corpuscular h emoglobin concentration measurement (mass/volume) 33 g/dL 32-36 Automated erythrocyte distribution width ratio 13. 1 % 10.0- 14.5 Automated blood platelet count (count/volume) 270 10*3/uL 130-400 Automated blood platelet mean volume measurement 10.0 [foz_us] 7.4-10.4 Automated blood neutrophils/100 leukocytes 60 % 42-75 Automated blood lymphocytes/100 leukocytes 27 % 12-44 Blood monocytes/100 leukocytes 11 % 0-12 Automated blood eosinophils/100 leukocytes 2 % 0-10 Automated blood basophils/100 leukocytes 0 % 0-10 Blood neutrophils automated count (number/volume) 5.8 10*3 1.8-7.8 Blood lymphocytes automated count (number/volume) 2.5 10*3 1.0-4.0 Blood monocytes automated count (number/volume) 1. 1 10*3 0.0-1.0 Automated eosinophil count 0.2 10*3/uL 0 .0-0.3 Automated blood basophil count (count/volume) 0.0 10*3/uL 0.0-0.1 Whole blood basic metabolic panel - 10/03 01/18 15:05 Serum or plasma sodium measurement (moles/volume) 141 mmol/L 135-145 Serum or plasma potassium measurement (moles/volume) 3.8 mmol/L 3.6-5.0 Serum or plasma chloride measurement (moles/volume) 104 mmol/L 98-107 Carbon dioxide 23 mmol/L 21-32 Serum or plasma anion gap determination (moles/volume) 14 mmol/L 5-14 Serum or plasma urea nitrogen measurement (mass/volume ) 35 mg/dL 7-18 Serum or plasma creatinine measurement (mass/volume) 1.89 mg/dL 0.60-1.30 Serum or plasma urea nitrogen/creatinine mass ratio 19 NRG Serum or plasma creatinine measurement w ith calculation of estimated glomerular filtration rate 34 NRG Serum or plasma glucose measurement (mass/volume) 128 mg/dL 70-105 Serum or plasma calcium measurement (mass/volume) 9.7 mg/dL 8.5-10.1 Capillary blood glucose measurement by g lucometer (mass/volume) - 10/17/18 13:52 Capillary blood glucose measurement by glucometer (mas s/volume) 298 mg/dL 70-110 Complete blood count (CBC) with automate d white blood cell (WBC) differential - 10/17/18 14:02 Blood leukocytes automated count (number/volume) 7.7 10*3/uL 4.3-11.0 Blood erythrocytes automated count (number/volume) 4.88 10*6/uL 4.35-5.85 Venous blood hemoglobin measurement (mass/volume) 14.3 g/dL 13.3-17.7 Blood hematocrit (volume fraction) 43 % 40-54 Automated erythrocyte mean corpuscular volume 89 [ foz_us] 80-99 Automated erythrocyte mean corpuscular h emoglobin (mass per erythrocyte) 29 pg 25-34 Automated erythrocyte mean corpuscular h emoglobin concentration measurement (mass/volume) 33 g/dL 32-36 Automated erythrocyte distribution width ratio 13. 3 % 10.0- 14.5 Automated blood platelet count (count/volume) 231 10*3/uL 130-400 Automated blood platelet mean volume measurement 10.6 [foz_us] 7.4-10.4 Automated blood neutrophils/100 leukocytes 65 % 42-75 Automated blood lymphocytes/100 leukocytes 23 % 12-44 Blood monocytes/100 leukocytes 10 % 0-12 Automated blood eosinophils/100 leukocytes 2 % 0-10 Automated blood basophils/100 leukocytes 0 % 0-10 Blood neutrophils automated count (number/volume) 5.0 10*3 1.8-7.8 Blood lymphocytes automated count (number/volume) 1.7 10*3 1.0-4.0 Blood monocytes automated count (number/volume) 0. 7 10*3 0.0-1.0 Automated eosinophil count 0.2 10*3/uL 0 .0-0.3 Automated blood basophil count (count/volume) 0.0 10*3/uL 0.0-0.1 Comprehensive metabolic panel - 10/17/18 14:02 Serum or plasma sodium measurement (moles/volume) 136 mmol/L 135-145 Serum or plasma potassium measurement (moles/volume) 4.1 mmol/L 3.6-5.0 Serum or plasma chloride measurement (moles/volume) 102 mmol/L 98-107 Carbon dioxide 21 mmol/L 21-32 Serum or plasma anion gap determination (moles/volume) 13 mmol/L 5-14 Serum or plasma urea nitrogen measurement (mass/volume ) 34 mg/dL 7-18 Serum or plasma creatinine measurement (mass/volume) 1.78 mg/dL 0.60-1.30 Serum or plasma urea nitrogen/creatinine mass ratio 19 NRG Serum or plasma creatinine measurement w ith calculation of estimated glomerular filtration rate 37 NRG Serum or plasma glucose measurement (mass/volume) 315 mg/dL 70-105 Serum or plasma calcium measurement (mass/volume) 8.8 mg/dL 8.5-10.1 Serum or plasma total bilirubin measurement (mass/volu me) 0.8 mg/dL 0.1-1.0 Serum or plasma alkaline phosphatase so surement (enzymatic activity/volume) 84 U/L 40-136 Serum or plasma aspartate aminotransfera se measurement (enzymatic activity/volume) 15 U/L 5-34 Serum or plasma alanine aminotransferase measurement (enzymatic activity/volume) 13 U/L 0-55 Serum or plasma protein measurement (mass/volume) 7.5 g/dL 6.4-8.2 Serum or plasma albumin measurement (mass/volume) 3.7 g/dL 3.2-4.5 CALCIUM CORRECTED 9.0 mg/dL 8.5-10.1 Complete urinalysis with reflex to cultu re - 10/17/18 15:04 Urine color determination YELLOW NRG Urine clarity determination CLEAR NR G Urine pH measurement by test strip 5 5-9 Specific gravity of urine by test strip 1.010 1.016-1.022 Urine protein assay by test strip, semi-quantitative 1+ NEGATIVE Urine glucose detection by automated test strip 3+ NEGATIVE Erythrocytes detection in urine sediment by light micr oscopy 1+ NEGATIVE Urine ketones detection by automated test strip NE GATIVE NEGATIVE Urine nitrite detection by test strip NEGATIVE NEGATIVE Urine total bilirubin detection by test strip NEGA TIVE NEGATIVE Urine urobilinogen measurement by automated test strip (mass/volume) NORMAL NORMAL Urine leukocyte esterase detection by dipstick NEG ATIVE NEGATIVE Automated urine sediment erythrocyte cou nt by microscopy (number/high power field) NONE NRG Automated urine sediment leukocyte count by microscopy (number/high power field) RARE NRG Bacteria detection in urine sediment by light microsco py TRACE NRG Crystals detection in urine sediment by light microsco py NONE NRG Casts detection in urine sediment by light microscopy NONE NRG Mucus detection in urine sediment by light microscopy NEGATIVE NRG Complete urinalysis with reflex to culture NO NRG Capillary blood glucose measurement by g lucometer (mass/volume) - 10/17/18 15:07 Capillary blood glucose measurement by glucometer (mas s/volume) 228 mg/dL 70-110 Capillary blood glucose measurement by g lucometer (mass/volume) - 11/04/18 12:27 Capillary blood glucose measurement by glucometer (mas s/volume) 130 mg/dL 70-110 Capillary blood glucose measurement by g lucometer (mass/volume) - 11/04/18 14:14 Capillary blood glucose measurement by glucometer (mas s/volume) 194 mg/dL 70-110 Capillary blood glucose measurement by g lucometer (mass/volume) - 11/07/18 19:31 Capillary blood glucose measurement by glucometer (mas s/volume) 201 mg/dL 70-110 Complete blood count (CBC) with automate d white blood cell (WBC) differential - 11/07/18 19:52 Blood leukocytes automated count (number/volume) 9.5 10*3/uL 4.3-11.0 Blood erythrocytes automated count (number/volume) 4.79 10*6/uL 4.35-5.85 Venous blood hemoglobin measurement (mass/volume) 14.2 g/dL 13.3-17.7 Blood hematocrit (volume fraction) 44 % 40-54 Automated erythrocyte mean corpuscular volume 91 [ foz_us] 80-99 Automated erythrocyte mean corpuscular h emoglobin (mass per erythrocyte) 30 pg 25-34 Automated erythrocyte mean corpuscular h emoglobin concentration measurement (mass/volume) 33 g/dL 32-36 Automated erythrocyte distribution width ratio 13. 5 % 10.0- 14.5 Automated blood platelet count (count/volume) 272 10*3/uL 130-400 Automated blood platelet mean volume measurement 10.2 [foz_us] 7.4-10.4 Automated blood neutrophils/100 leukocytes 64 % 42-75 Automated blood lymphocytes/100 leukocytes 24 % 12-44 Blood monocytes/100 leukocytes 11 % 0-12 Automated blood eosinophils/100 leukocytes 2 % 0-10 Automated blood basophils/100 leukocytes 0 % 0-10 Blood neutrophils automated count (number/volume) 6.1 10*3 1.8-7.8 Blood lymphocytes automated count (number/volume) 2.2 10*3 1.0-4.0 Blood monocytes automated count (number/volume) 1. 1 10*3 0.0-1.0 Automated eosinophil count 0.2 10*3/uL 0 .0-0.3 Automated blood basophil count (count/volume) 0.0 10*3/uL 0.0-0.1 Comprehensive metabolic panel - 11/07/18 19:52 Serum or plasma sodium measurement (moles/volume) 139 mmol/L 135-145 Serum or plasma potassium measurement (moles/volume) 4.7 mmol/L 3.6-5.0 Serum or plasma chloride measurement (moles/volume) 103 mmol/L 98-107 Carbon dioxide 24 mmol/L 21-32 Serum or plasma anion gap determination (moles/volume) 12 mmol/L 5-14 Serum or plasma urea nitrogen measurement (mass/volume ) 36 mg/dL 7-18 Serum or plasma creatinine measurement (mass/volume) 1.92 mg/dL 0.60-1.30 Serum or plasma urea nitrogen/creatinine mass ratio 19 NRG Serum or plasma creatinine measurement w ith calculation of estimated glomerular filtration rate 34 NRG Serum or plasma glucose measurement (mass/volume) 202 mg/dL 70-105 Serum or plasma calcium measurement (mass/volume) 8.9 mg/dL 8.5-10.1 Serum or plasma total bilirubin measurement (mass/volu me) 0.4 mg/dL 0.1-1.0 Serum or plasma alkaline phosphatase so surement (enzymatic activity/volume) 80 U/L 40-136 Serum or plasma aspartate aminotransfera se measurement (enzymatic activity/volume) 13 U/L 5-34 Serum or plasma alanine aminotransferase measurement (enzymatic activity/volume) 7 U/L 0-55 Serum or plasma protein measurement (mass/volume) 7.5 g/dL 6.4-8.2 Serum or plasma albumin measurement (mass/volume) 3.7 g/dL 3.2-4.5 CALCIUM CORRECTED 9.1 mg/dL 8.5-10.1 Complete urinalysis with reflex to cultu re - 11/07/18 19:55 Urine color determination YELLOW NRG Urine clarity determination SLIGHTLY CLOUDY NRG Urine pH measurement by test strip 5 5-9 Specific gravity of urine by test strip 1.020 1.016-1.022 Urine protein assay by test strip, semi-quantitative 1+ NEGATIVE Urine glucose detection by automated test strip NE GATIVE NEGATIVE Erythrocytes detection in urine sediment by light micr oscopy 1+ NEGATIVE Urine ketones detection by automated test strip NE GATIVE NEGATIVE Urine nitrite detection by test strip NEGATIVE NEGATIVE Urine total bilirubin detection by test strip NEGA TIVE NEGATIVE Urine urobilinogen measurement by automated test strip (mass/volume) NORMAL NORMAL Urine leukocyte esterase detection by dipstick 1+ NEGATIVE Automated urine sediment erythrocyte cou nt by microscopy (number/high power field) [HPF] NRG Automated urine sediment leukocyte count by microscopy (number/high power field) [HPF] NRG Bacteria detection in urine sediment by light microsco py TRACE NRG Squamous epithelial cells detection in u rine sediment by light microscopy 5-10 NRG Crystals detection in urine sediment by light microsco py NONE NRG Casts detection in urine sediment by light microscopy PRESENT NRG Mucus detection in urine sediment by light microscopy SMALL NRG Complete urinalysis with reflex to culture YES NRG Hyaline casts detection in urine sediment by light curly roscopy 2-5 NRG Bacterial urine culture - 11/07/18 19:55 Bacterial urine culture SEE REPORT NRG COLONY COUNT . NRG Capillary blood glucose measurement by g lucometer (mass/volume) - 11/07/18 20:42 Capillary blood glucose measurement by glucometer (mas s/volume) 158 mg/dL 70-110 Capillary blood glucose measurement by g lucometer (mass/volume) - 11/07/18 21:27 Capillary blood glucose measurement by glucometer (mas s/volume) 186 mg/dL 70-110 Capillary blood glucose measurement by g lucometer (mass/volume) - 11/08/18 17:30 Capillary blood glucose measurement by glucometer (mas s/volume) 146 mg/dL 70-110 Capillary blood glucose measurement by g lucometer (mass/volume) - 11/08/18 18:01 Capillary blood glucose measurement by glucometer (mas s/volume) 131 mg/dL 70-110 Capillary blood glucose measurement by g lucometer (mass/volume) - 11/08/18 18:33 Capillary blood glucose measurement by glucometer (mas s/volume) 141 mg/dL 70-110 Capillary blood glucose measurement by g lucometer (mass/volume) - 11/08/18 19:33 Capillary blood glucose measurement by glucometer (mas s/volume) 153 mg/dL 70-110 Capillary blood glucose measurement by g lucometer (mass/volume) - 11/08/18 20:02 Capillary blood glucose measurement by glucometer (mas s/volume) 170 mg/dL 70-110 Capillary blood glucose measurement by g lucometer (mass/volume) - 10/10/19 05:24 Capillary blood glucose measurement by glucometer (mas s/volume) 234 mg/dL 70-110 Complete blood count (CBC) with automate d white blood cell (WBC) differential - 10/10/19 05:35 Blood leukocytes automated count (number/volume) 15.3 10*3/uL 4.3-11.0 Blood erythrocytes automated count (number/volume) 5.04 10*6/uL 4.35-5.85 Venous blood hemoglobin measurement (mass/volume) 14.9 g/dL 13.3-17.7 Blood hematocrit (volume fraction) 45 % 40-54 Automated erythrocyte mean corpuscular volume 89 [ foz_us] 80-99 Automated erythrocyte mean corpuscular h emoglobin (mass per erythrocyte) 30 pg 25-34 Automated erythrocyte mean corpuscular h emoglobin concentration measurement (mass/volume) 33 g/dL 32-36 Automated erythrocyte distribution width ratio 13. 4 % 10.0- 14.5 Automated blood platelet count (count/volume) 257 10*3/uL 130-400 Automated blood platelet mean volume measurement 11.0 [foz_us] 7.4-10.4 Automated blood neutrophils/100 leukocytes 86 % 42-75 Automated blood lymphocytes/100 leukocytes 4 % 12-44 Blood monocytes/100 leukocytes 10 % 0-12 Automated blood eosinophils/100 leukocytes 0 % 0-10 Automated blood basophils/100 leukocytes 0 % 0-10 Blood neutrophils automated count (number/volume) 13.1 10*3 1.8-7.8 Blood lymphocytes automated count (number/volume) 0.6 10*3 1.0-4.0 Blood monocytes automated count (number/volume) 1. 6 10*3 0.0-1.0 Automated eosinophil count 0.0 10*3/uL 0 .0-0.3 Automated blood basophil count (count/volume) 0.0 10*3/uL 0.0-0.1 Comprehensive metabolic panel - 10/10/19 05:35 Serum or plasma sodium measurement (moles/volume) 138 mmol/L 135-145 Serum or plasma potassium measurement (moles/volume) 5.4 mmol/L 3.6-5.0 Serum or plasma chloride measurement (moles/volume) 102 mmol/L 98-107 Carbon dioxide 21 mmol/L 21-32 Serum or plasma anion gap determination (moles/volume) 15 mmol/L 5-14 Serum or plasma urea nitrogen measurement (mass/volume ) 25 mg/dL 7-18 Serum or plasma creatinine measurement (mass/volume) 1.94 mg/dL 0.60-1.30 Serum or plasma urea nitrogen/creatinine mass ratio 13 NRG Serum or plasma creatinine measurement w ith calculation of estimated glomerular filtration rate 33 NRG Serum or plasma glucose measurement (mass/volume) 237 mg/dL 70-105 Serum or plasma calcium measurement (mass/volume) 8.7 mg/dL 8.5-10.1 Serum or plasma total bilirubin measurement (mass/volu me) 3.1 mg/dL 0.1-1.0 Serum or plasma alkaline phosphatase so surement (enzymatic activity/volume) 139 U/L 40-136 Serum or plasma aspartate aminotransfera se measurement (enzymatic activity/volume) 258 U/L 5-34 Serum or plasma alanine aminotransferase measurement (enzymatic activity/volume) 260 U/L 0-55 Serum or plasma protein measurement (mass/volume) 7.9 g/dL 6.4-8.2 Serum or plasma albumin measurement (mass/volume) 3.5 g/dL 3.2-4.5 CALCIUM CORRECTED 9.1 mg/dL 8.5-10.1 Serum or plasma C reactive protein measu rement (mass/volume) - 10/10/19 05:35 Serum or plasma C reactive protein measurement (mass/v olume) 2.12 mg/dL 0.00-0.50 Manual absolute plasma cell count - 06/21 05:35 Blood monocytes/100 leukocytes 5 % NRG Manual blood segmented neutrophils/100 leukocytes 80 % NRG Blood band neutrophils/100 leukocytes 8 % NRG Manual blood lymphocytes/100 leukocytes 7 % NRG Blood erythrocyte morphology finding identification NORMAL NRG Blood toxic granules detection by light microscopy 1+ NRG Blood lactic acid measurement (moles/vol ume) - 10/10/19 07:05 Blood lactic acid measurement (moles/volume) 1.39 mmol/L 0.50-2.00 Blood type T Indirect antibody screen pa catracho - 10/10/19 07:05 WRISTBAND NUMBER [id number] NRG ABO+Rh group OP NRG Blood group antibody screen NEGATIVE NR G Serum or plasma troponin i.cardiac measu rement (mass/volume) - 10/10/19 07:05 Serum or plasma troponin i.cardiac measurement (mass/v olume) 0.787 ng/mL <0.028 Magnesium - 10/10/19 07:05 Magnesium 1.7 mg/dL 1.6-2.4 PROCALCITONIN (PCT) - 10/10/19 07:05 PROCALCITONIN (PCT) 3.02 ng/mL <0.10 Serum or plasma creatine kinase measurem ent (enzymatic activity/volume) - 10/10/19 07:05 Serum or plasma creatine kinase measurem ent (enzymatic activity/volume) 164 U/L 30-200 Bacterial blood culture - 10/10/19 07:05 Bacterial blood culture NG NRG Bacterial blood culture - 10/10/19 07:27 Bacterial blood culture NG NRG Complete urinalysis with reflex to cultu re - 10/10/19 09:06 Urine color determination YELLOW NRG Urine clarity determination CLEAR NR G Urine pH measurement by test strip 6.5 5-9 Specific gravity of urine by test strip 1.010 1.016-1.022 Urine protein assay by test strip, semi-quantitative 2+ NEGATIVE Urine glucose detection by automated test strip TR NU NEGATIVE Erythrocytes detection in urine sediment by light micr oscopy TRACE-I NEGATIVE Urine ketones detection by automated test strip TR NU NEGATIVE Urine nitrite detection by test strip NEGATIVE NEGATIVE Urine total bilirubin detection by test strip NEGA TIVE NEGATIVE Urine urobilinogen measurement by automated test strip (mass/volume) 1.0 mg/dL < = 1.0 Urine leukocyte esterase detection by dipstick NEG ATIVE NEGATIVE Automated urine sediment erythrocyte cou nt by microscopy (number/high power field) NONE NRG Automated urine sediment leukocyte count by microscopy (number/high power field) NONE NRG Bacteria detection in urine sediment by light microsco py TRACE NRG Crystals detection in urine sediment by light microsco py NONE NRG Casts detection in urine sediment by light microscopy NONE NRG Mucus detection in urine sediment by light microscopy NEGATIVE NRG Complete urinalysis with reflex to culture NO NRG Capillary blood glucose measurement by g lucometer (mass/volume) - 10/10/19 11:24 Capillary blood glucose measurement by glucometer (mas s/volume) 191 mg/dL 70-110 Serum or plasma troponin i.cardiac measu rement (mass/volume) - 10/10/19 11:35 Serum or plasma troponin i.cardiac measurement (mass/v olume) 1.250 ng/mL <0.028 Lipase - 10/10/19 11:35 Lipase 31 U/L 8-78 Capillary blood glucose measurement by g lucometer (mass/volume) - 10/10/19 17:18 Capillary blood glucose measurement by glucometer (mas s/volume) 174 mg/dL 70-110 Serum or plasma troponin i.cardiac measu rement (mass/volume) - 10/10/19 18:05 Serum or plasma troponin i.cardiac measurement (mass/v olume) 1.378 ng/mL <0.028 Capillary blood glucose measurement by g lucometer (mass/volume) - 10/10/19 21:01 Capillary blood glucose measurement by glucometer (mas s/volume) 180 mg/dL 70-110 Complete blood count (CBC) with automate d white blood cell (WBC) differential - 10/11/19 02:45 Blood leukocytes automated count (number/volume) 11.7 10*3/uL 4.3-11.0 Blood erythrocytes automated count (number/volume) 4.65 10*6/uL 4.35-5.85 Venous blood hemoglobin measurement (mass/volume) 13.6 g/dL 13.3-17.7 Blood hematocrit (volume fraction) 42 % 40-54 Automated erythrocyte mean corpuscular volume 90 [ foz_us] 80-99 Automated erythrocyte mean corpuscular h emoglobin (mass per erythrocyte) 29 pg 25-34 Automated erythrocyte mean corpuscular h emoglobin concentration measurement (mass/volume) 33 g/dL 32-36 Automated erythrocyte distribution width ratio 13. 8 % 10.0- 14.5 Automated blood platelet count (count/volume) 210 10*3/uL 130-400 Automated blood platelet mean volume measurement 10.9 [foz_us] 7.4-10.4 Automated blood neutrophils/100 leukocytes 80 % 42-75 Automated blood lymphocytes/100 leukocytes 8 % 12-44 Blood monocytes/100 leukocytes 12 % 0-12 Automated blood eosinophils/100 leukocytes 0 % 0-10 Automated blood basophils/100 leukocytes 0 % 0-10 Blood neutrophils automated count (number/volume) 9.4 10*3 1.8-7.8 Blood lymphocytes automated count (number/volume) 0.9 10*3 1.0-4.0 Blood monocytes automated count (number/volume) 1. 4 10*3 0.0-1.0 Automated eosinophil count 0.0 10*3/uL 0 .0-0.3 Automated blood basophil count (count/volume) 0.0 10*3/uL 0.0-0.1 Comprehensive metabolic panel - 10/11/19 02:45 Serum or plasma sodium measurement (moles/volume) 138 mmol/L 135-145 Serum or plasma potassium measurement (moles/volume) 4.3 mmol/L 3.6-5.0 Serum or plasma chloride measurement (moles/volume) 105 mmol/L 98-107 Carbon dioxide 20 mmol/L 21-32 Serum or plasma anion gap determination (moles/volume) 13 mmol/L 5-14 Serum or plasma urea nitrogen measurement (mass/volume ) 25 mg/dL 7-18 Serum or plasma creatinine measurement (mass/volume) 2.09 mg/dL 0.60-1.30 Serum or plasma urea nitrogen/creatinine mass ratio 12 NRG Serum or plasma creatinine measurement w ith calculation of estimated glomerular filtration rate 31 NRG Serum or plasma glucose measurement (mass/volume) 148 mg/dL 70-105 Serum or plasma calcium measurement (mass/volume) 8.3 mg/dL 8.5-10.1 Serum or plasma total bilirubin measurement (mass/volu me) 5.7 mg/dL 0.1-1.0 Serum or plasma alkaline phosphatase so surement (enzymatic activity/volume) 122 U/L 40-136 Serum or plasma aspartate aminotransfera se measurement (enzymatic activity/volume) 134 U/L 5-34 Serum or plasma alanine aminotransferase measurement (enzymatic activity/volume) 183 U/L 0-55 Serum or plasma protein measurement (mass/volume) 6.4 g/dL 6.4-8.2 Serum or plasma albumin measurement (mass/volume) 3.1 g/dL 3.2-4.5 CALCIUM CORRECTED 9.0 mg/dL 8.5-10.1 Serum or plasma troponin i.cardiac measu rement (mass/volume) - 10/11/19 03:45 Serum or plasma troponin i.cardiac measurement (mass/v olume) 0.945 ng/mL <0.028 Serum or plasma conjugated bilirubin+ind irect measurement (mass/volume) - 10/11/19 05:20 Serum or plasma total bilirubin measurement (mass/volu me) 5.7 mg/dL 0.1-1.0 Bilirubin direct 4.3 mg/dL 0.0-0.3 Serum or plasma indirect bilirubin measurement (mass/v olume) 1.4 mg/dL NRG Capillary blood glucose measurement by g lucometer (mass/volume) - 10/11/19 12:31 Capillary blood glucose measurement by glucometer (mas s/volume) 152 mg/dL 70-110 Liver function panel (serum or plasma al k phos, alb, total and direct bili, total protein, ALT, AST) - 10/11/19 16:36 Serum or plasma total bilirubin measurement (mass/volu me) 5.7 mg/dL 0.1-1.0 Serum or plasma alkaline phosphatase so surement (enzymatic activity/volume) 126 U/L 40-136 Serum or plasma aspartate aminotransfera se measurement (enzymatic activity/volume) 117 U/L 5-34 Serum or plasma alanine aminotransferase measurement (enzymatic activity/volume) 164 U/L 0-55 Serum or plasma protein measurement (mass/volume) 6.9 g/dL 6.4-8.2 Serum or plasma albumin measurement (mass/volume) 3.2 g/dL 3.2-4.5 Bilirubin direct 4.4 mg/dL 0.0-0.3 Serum or plasma indirect bilirubin measurement (mass/v olume) 1.3 mg/dL NRG Whole blood basic metabolic panel - 07/22 16:36 Serum or plasma sodium measurement (moles/volume) 138 mmol/L 135-145 Serum or plasma potassium measurement (moles/volume) 4.2 mmol/L 3.6-5.0 Serum or plasma chloride measurement (moles/volume) 103 mmol/L 98-107 Carbon dioxide 23 mmol/L 21-32 Serum or plasma anion gap determination (moles/volume) 12 mmol/L 5-14 Serum or plasma urea nitrogen measurement (mass/volume ) 29 mg/dL 7-18 Serum or plasma creatinine measurement (mass/volume) 2.40 mg/dL 0.60-1.30 Serum or plasma urea nitrogen/creatinine mass ratio 12 NRG Serum or plasma creatinine measurement w ith calculation of estimated glomerular filtration rate 26 NRG Serum or plasma glucose measurement (mass/volume) 146 mg/dL 70-105 Serum or plasma calcium measurement (mass/volume) 8.4 mg/dL 8.5-10.1 Capillary blood glucose measurement by g lucometer (mass/volume) - 10/11/19 17:29 Capillary blood glucose measurement by glucometer (mas s/volume) 126 mg/dL 70-110 Capillary blood glucose measurement by g lucometer (mass/volume) - 10/11/19 20:06 Capillary blood glucose measurement by glucometer (mas s/volume) 138 mg/dL 70-110 Complete urinalysis with reflex to cultu re - 10/11/19 22:26 Urine color determination DARK YELLOW N RG Urine clarity determination SL CLOUDY N RG Urine pH measurement by test strip 6.0 5-9 Specific gravity of urine by test strip 1.015 1.016-1.022 Urine protein assay by test strip, semi-quantitative 1+ NEGATIVE Urine glucose detection by automated test strip NE GATIVE NEGATIVE Erythrocytes detection in urine sediment by light micr oscopy 2+ NEGATIVE Urine ketones detection by automated test strip TR NU NEGATIVE Urine nitrite detection by test strip NEGATIVE NEGATIVE Urine total bilirubin detection by test strip 2+ i boiler erector=pos NEGATIVE Urine urobilinogen measurement by automated test strip (mass/volume) 1.0 mg/dL < = 1.0 Urine leukocyte esterase detection by dipstick 1+ NEGATIVE Automated urine sediment erythrocyte cou nt by microscopy (number/high power field) [HPF] NRG Automated urine sediment leukocyte count by microscopy (number/high power field) [HPF] NRG Bacteria detection in urine sediment by light microsco py TRACE NRG Crystals detection in urine sediment by light microsco py NONE NRG Casts detection in urine sediment by light microscopy NONE NRG Mucus detection in urine sediment by light microscopy NEGATIVE NRG Complete urinalysis with reflex to culture YES NRG Bacterial urine culture - 10/11/19 22:26 Bacterial urine culture NG NRG Complete blood count (CBC) with automate d white blood cell (WBC) differential - 10/12/19 02:35 Blood leukocytes automated count (number/volume) 9.5 10*3/uL 4.3-11.0 Blood erythrocytes automated count (number/volume) 4.46 10*6/uL 4.35-5.85 Venous blood hemoglobin measurement (mass/volume) 13.0 g/dL 13.3-17.7 Blood hematocrit (volume fraction) 40 % 40-54 Automated erythrocyte mean corpuscular volume 90 [ foz_us] 80-99 Automated erythrocyte mean corpuscular h emoglobin (mass per erythrocyte) 29 pg 25-34 Automated erythrocyte mean corpuscular h emoglobin concentration measurement (mass/volume) 32 g/dL 32-36 Automated erythrocyte distribution width ratio 13. 5 % 10.0- 14.5 Automated blood platelet count (count/volume) 203 10*3/uL 130-400 Automated blood platelet mean volume measurement 10.5 [foz_us] 7.4-10.4 Automated blood neutrophils/100 leukocytes 75 % 42-75 Automated blood lymphocytes/100 leukocytes 10 % 12-44 Blood monocytes/100 leukocytes 14 % 0-12 Automated blood eosinophils/100 leukocytes 1 % 0-10 Automated blood basophils/100 leukocytes 0 % 0-10 Blood neutrophils automated count (number/volume) 7.1 10*3 1.8-7.8 Blood lymphocytes automated count (number/volume) 1.0 10*3 1.0-4.0 Blood monocytes automated count (number/volume) 1. 3 10*3 0.0-1.0 Automated eosinophil count 0.1 10*3/uL 0 .0-0.3 Automated blood basophil count (count/volume) 0.0 10*3/uL 0.0-0.1 Comprehensive metabolic panel - 10/12/19 02:35 Serum or plasma sodium measurement (moles/volume) 138 mmol/L 135-145 Serum or plasma potassium measurement (moles/volume) 4.2 mmol/L 3.6-5.0 Serum or plasma chloride measurement (moles/volume) 104 mmol/L 98-107 Carbon dioxide 22 mmol/L 21-32 Serum or plasma anion gap determination (moles/volume) 12 mmol/L 5-14 Serum or plasma urea nitrogen measurement (mass/volume ) 29 mg/dL 7-18 Serum or plasma creatinine measurement (mass/volume) 2.18 mg/dL 0.60-1.30 Serum or plasma urea nitrogen/creatinine mass ratio 13 NRG Serum or plasma creatinine measurement w ith calculation of estimated glomerular filtration rate 29 NRG Serum or plasma glucose measurement (mass/volume) 179 mg/dL 70-105 Serum or plasma calcium measurement (mass/volume) 8.1 mg/dL 8.5-10.1 Serum or plasma total bilirubin measurement (mass/volu me) 4.4 mg/dL 0.1-1.0 Serum or plasma alkaline phosphatase so surement (enzymatic activity/volume) 119 U/L 40-136 Serum or plasma aspartate aminotransfera se measurement (enzymatic activity/volume) 99 U/L 5-34 Serum or plasma alanine aminotransferase measurement (enzymatic activity/volume) 137 U/L 0-55 Serum or plasma protein measurement (mass/volume) 6.2 g/dL 6.4-8.2 Serum or plasma albumin measurement (mass/volume) 2.9 g/dL 3.2-4.5 CALCIUM CORRECTED 9.0 mg/dL 8.5-10.1 Serum or plasma troponin i.cardiac measu rement (mass/volume) - 10/12/19 02:35 Serum or plasma troponin i.cardiac measurement (mass/v olume) 0.287 ng/mL <0.028 Capillary blood glucose measurement by g lucometer (mass/volume) - 10/12/19 11:28 Capillary blood glucose measurement by glucometer (mas s/volume) 158 mg/dL 70-110 Capillary blood glucose measurement by g lucometer (mass/volume) - 10/12/19 16:06 Capillary blood glucose measurement by glucometer (mas s/volume) 212 mg/dL 70-110 Capillary blood glucose measurement by g lucometer (mass/volume) - 10/12/19 20:16 Capillary blood glucose measurement by glucometer (mas s/volume) 175 mg/dL 70-110 Complete blood count (CBC) with automate d white blood cell (WBC) differential - 10/13/19 03:10 Blood leukocytes automated count (number/volume) 8.1 10*3/uL 4.3-11.0 Blood erythrocytes automated count (number/volume) 4.41 10*6/uL 4.35-5.85 Venous blood hemoglobin measurement (mass/volume) 12.8 g/dL 13.3-17.7 Blood hematocrit (volume fraction) 40 % 40-54 Automated erythrocyte mean corpuscular volume 90 [ foz_us] 80-99 Automated erythrocyte mean corpuscular h emoglobin (mass per erythrocyte) 29 pg 25-34 Automated erythrocyte mean corpuscular h emoglobin concentration measurement (mass/volume) 32 g/dL 32-36 Automated erythrocyte distribution width ratio 13. 9 % 10.0- 14.5 Automated blood platelet count (count/volume) 190 10*3/uL 130-400 Automated blood platelet mean volume measurement 10.6 [foz_us] 7.4-10.4 Automated blood neutrophils/100 leukocytes 68 % 42-75 Automated blood lymphocytes/100 leukocytes 16 % 12-44 Blood monocytes/100 leukocytes 13 % 0-12 Automated blood eosinophils/100 leukocytes 3 % 0-10 Automated blood basophils/100 leukocytes 0 % 0-10 Blood neutrophils automated count (number/volume) 5.5 10*3 1.8-7.8 Blood lymphocytes automated count (number/volume) 1.3 10*3 1.0-4.0 Blood monocytes automated count (number/volume) 1. 0 10*3 0.0-1.0 Automated eosinophil count 0.2 10*3/uL 0 .0-0.3 Automated blood basophil count (count/volume) 0.0 10*3/uL 0.0-0.1 Comprehensive metabolic panel - 10/13/19 03:10 Serum or plasma sodium measurement (moles/volume) 137 mmol/L 135-145 Serum or plasma potassium measurement (moles/volume) 4.3 mmol/L 3.6-5.0 Serum or plasma chloride measurement (moles/volume) 107 mmol/L 98-107 Carbon dioxide 20 mmol/L 21-32 Serum or plasma anion gap determination (moles/volume) 10 mmol/L 5-14 Serum or plasma urea nitrogen measurement (mass/volume ) 29 mg/dL 7-18 Serum or plasma creatinine measurement (mass/volume) 2.05 mg/dL 0.60-1.30 Serum or plasma urea nitrogen/creatinine mass ratio 14 NRG Serum or plasma creatinine measurement w ith calculation of estimated glomerular filtration rate 31 NR Serum or plasma glucose measurement (mass/volume) 166 mg/dL 70-105 Serum or plasma calcium measurement (mass/volume) 7.9 mg/dL 8.5-10.1 Serum or plasma total bilirubin measurement (mass/volu me) 2.8 mg/dL 0.1-1.0 Serum or plasma alkaline phosphatase so surement (enzymatic activity/volume) 125 U/L 40-136 Serum or plasma aspartate aminotransfera se measurement (enzymatic activity/volume) 77 U/L 5-34 Serum or plasma alanine aminotransferase measurement (enzymatic activity/volume) 107 U/L 0-55 Serum or plasma protein measurement (mass/volume) 6.2 g/dL 6.4-8.2 Serum or plasma albumin measurement (mass/volume) 2.9 g/dL 3.2-4.5 CALCIUM CORRECTED 8.8 mg/dL 8.5-10.1 Lipid 1996 panel - 10/13/19 03:10 Serum or plasma triglyceride measurement (mass/volume) 119 mg/dL <150 Serum or plasma cholesterol measurement (mass/volume) 107 mg/dL < 200 Serum or plasma cholesterol in HDL measurement (mass/v olume) 16 mg/dL 40-60 Cholesterol in LDL [mass/volume] in serum or plasma by direct assay 65 mg/dL 1-129 Serum or plasma cholesterol in VLDL measurement (mass/ volume) 24 mg/dL 5-40 Capillary blood glucose measurement by g lucometer (mass/volume) - 10/13/19 10:46 Capillary blood glucose measurement by glucometer (mas s/volume) 186 mg/dL 70-110 Influenza virus A and B antigen detectio n - 10/14/19 08:30 FLU RESULT NEGATIVE FOR INFLUENZA A AND B ANTIGENS BY [facility] Complete blood count (CBC) with automate d white blood cell (WBC) differential - 10/14/19 08:34 Blood leukocytes automated count (number/volume) 10.0 10*3/uL 4.3-11.0 Blood erythrocytes automated count (number/volume) 4.82 10*6/uL 4.35-5.85 Venous blood hemoglobin measurement (mass/volume) 14.2 g/dL 13.3-17.7 Blood hematocrit (volume fraction) 43 % 40-54 Automated erythrocyte mean corpuscular volume 89 [ foz_us] 80-99 Automated erythrocyte mean corpuscular h emoglobin (mass per erythrocyte) 30 pg 25-34 Automated erythrocyte mean corpuscular h emoglobin concentration measurement (mass/volume) 33 g/dL 32-36 Automated erythrocyte distribution width ratio 14. 1 % 10.0- 14.5 Automated blood platelet count (count/volume) 279 10*3/uL 130-400 Automated blood platelet mean volume measurement 11.5 [foz_us] 7.4-10.4 Automated blood neutrophils/100 leukocytes 69 % 42-75 Automated blood lymphocytes/100 leukocytes 16 % 12-44 Blood monocytes/100 leukocytes 12 % 0-12 Automated blood eosinophils/100 leukocytes 2 % 0-10 Automated blood basophils/100 leukocytes 0 % 0-10 Blood neutrophils automated count (number/volume) 6.9 10*3 1.8-7.8 Blood lymphocytes automated count (number/volume) 1.6 10*3 1.0-4.0 Blood monocytes automated count (number/volume) 1. 2 10*3 0.0-1.0 Automated eosinophil count 0.2 10*3/uL 0 .0-0.3 Automated blood basophil count (count/volume) 0.0 10*3/uL 0.0-0.1 Comprehensive metabolic panel - 10/14/19 08:34 Serum or plasma sodium measurement (moles/volume) 139 mmol/L 135-145 Serum or plasma potassium measurement (moles/volume) 4.4 mmol/L 3.6-5.0 Serum or plasma chloride measurement (moles/volume) 104 mmol/L 98-107 Carbon dioxide 22 mmol/L 21-32 Serum or plasma anion gap determination (moles/volume) 13 mmol/L 5-14 Serum or plasma urea nitrogen measurement (mass/volume ) 25 mg/dL 7-18 Serum or plasma creatinine measurement (mass/volume) 1.72 mg/dL 0.60-1.30 Serum or plasma urea nitrogen/creatinine mass ratio 15 NRG Serum or plasma creatinine measurement w ith calculation of estimated glomerular filtration rate 38 NRG Serum or plasma glucose measurement (mass/volume) 188 mg/dL 70-105 Serum or plasma calcium measurement (mass/volume) 9.0 mg/dL 8.5-10.1 Serum or plasma total bilirubin measurement (mass/volu me) 3.0 mg/dL 0.1-1.0 Serum or plasma alkaline phosphatase so surement (enzymatic activity/volume) 146 U/L 40-136 Serum or plasma aspartate aminotransfera se measurement (enzymatic activity/volume) 102 U/L 5-34 Serum or plasma alanine aminotransferase measurement (enzymatic activity/volume) 116 U/L 0-55 Serum or plasma protein measurement (mass/volume) 7.7 g/dL 6.4-8.2 Serum or plasma albumin measurement (mass/volume) 3.4 g/dL 3.2-4.5 CALCIUM CORRECTED 9.5 mg/dL 8.5-10.1 Lipase - 10/14/19 08:34 Lipase 76 U/L 8-78 Complete blood count (CBC) with automate d white blood cell (WBC) differential - 11/09/19 09:15 Blood leukocytes automated count (number/volume) 11.2 10*3/uL 4.3-11.0 Blood erythrocytes automated count (number/volume) 5.00 10*6/uL 4.35-5.85 Venous blood hemoglobin measurement (mass/volume) 15.0 g/dL 13.3-17.7 Blood hematocrit (volume fraction) 45 % 40-54 Automated erythrocyte mean corpuscular volume 90 [ foz_us] 80-99 Automated erythrocyte mean corpuscular h emoglobin (mass per erythrocyte) 30 pg 25-34 Automated erythrocyte mean corpuscular h emoglobin concentration measurement (mass/volume) 33 g/dL 32-36 Automated erythrocyte distribution width ratio 14. 6 % 10.0- 14.5 Automated blood platelet count (count/volume) 265 10*3/uL 130-400 Automated blood platelet mean volume measurement 10.4 [foz_us] 7.4-10.4 Automated blood neutrophils/100 leukocytes 63 % 42-75 Automated blood lymphocytes/100 leukocytes 23 % 12-44 Blood monocytes/100 leukocytes 12 % 0-12 Automated blood eosinophils/100 leukocytes 2 % 0-10 Automated blood basophils/100 leukocytes 0 % 0-10 Blood neutrophils automated count (number/volume) 7.0 10*3 1.8-7.8 Blood lymphocytes automated count (number/volume) 2.6 10*3 1.0-4.0 Blood monocytes automated count (number/volume) 1. 3 10*3 0.0-1.0 Automated eosinophil count 0.2 10*3/uL 0 .0-0.3 Automated blood basophil count (count/volume) 0.0 10*3/uL 0.0-0.1 PT panel in platelet poor plasma by coag ulation assay - 11/09/19 09:15 Prothrombin time (PT) in platelet poor plasma by coagu lation assay 13.4 s 12.2-14.7 INR in platelet poor plasma or blood by coagulation as say 1.0 0.8-1.4 Activated partial thromboplastin time (a PTT) in platelet poor plasma bycoagulation assay - 11/09/19 09:15 Activated partial thromboplastin time (a PTT) in platelet poor plasma bycoagulation assay 27 s 24-35 Comprehensive metabolic panel - 11/09/19 09:40 Serum or plasma sodium measurement (moles/volume) 137 mmol/L 135-145 Serum or plasma potassium measurement (moles/volume) 4.7 mmol/L 3.6-5.0 Serum or plasma chloride measurement (moles/volume) 103 mmol/L 98-107 Carbon dioxide 20 mmol/L 21-32 Serum or plasma anion gap determination (moles/volume) 14 mmol/L 5-14 Serum or plasma urea nitrogen measurement (mass/volume ) 22 mg/dL 7-18 Serum or plasma creatinine measurement (mass/volume) 1.67 mg/dL 0.60-1.30 Serum or plasma urea nitrogen/creatinine mass ratio 13 NRG Serum or plasma creatinine measurement w ith calculation of estimated glomerular filtration rate 40 NRG Serum or plasma glucose measurement (mass/volume) 224 mg/dL 70-105 Serum or plasma calcium measurement (mass/volume) 9.1 mg/dL 8.5-10.1 Serum or plasma total bilirubin measurement (mass/volu me) 0.7 mg/dL 0.1-1.0 Serum or plasma alkaline phosphatase so surement (enzymatic activity/volume) 97 U/L 40-136 Serum or plasma aspartate aminotransfera se measurement (enzymatic activity/volume) 27 U/L 5-34 Serum or plasma alanine aminotransferase measurement (enzymatic activity/volume) 29 U/L 0-55 Serum or plasma protein measurement (mass/volume) 7.8 g/dL 6.4-8.2 Serum or plasma albumin measurement (mass/volume) 3.7 g/dL 3.2-4.5 CALCIUM CORRECTED 9.3 mg/dL 8.5-10.1 Magnesium - 11/09/19 09:40 Magnesium 1.7 mg/dL 1.6-2.4 Serum or plasma troponin i.cardiac measu rement (mass/volume) - 11/09/19 09:40 Serum or plasma troponin i.cardiac measurement (mass/v olume) < ng/mL <0.028 Myoglobin, serum - 11/09/19 09:40 Myoglobin, serum 99.7 ng/mL 10.0-92.0 Serum or plasma troponin i.cardiac measu rement (mass/volume) - 11/09/19 15:15 Serum or plasma troponin i.cardiac measurement (mass/v olume) < ng/mL <0.028 Capillary blood glucose measurement by g lucometer (mass/volume) - 11/09/19 15:35 Capillary blood glucose measurement by glucometer (mas s/volume) 204 mg/dL 70-110 Capillary blood glucose measurement by g lucometer (mass/volume) - 11/09/19 20:10 Capillary blood glucose measurement by glucometer (mas s/volume) 164 mg/dL 70-110 Serum or plasma troponin i.cardiac measu rement (mass/volume) - 11/09/19 21:10 Serum or plasma troponin i.cardiac measurement (mass/v olume) < ng/mL <0.028 Complete blood count (CBC) with automate d white blood cell (WBC) differential - 11/10/19 03:44 Blood leukocytes automated count (number/volume) 9.8 10*3/uL 4.3-11.0 Blood erythrocytes automated count (number/volume) 4.91 10*6/uL 4.35-5.85 Venous blood hemoglobin measurement (mass/volume) 14.5 g/dL 13.3-17.7 Blood hematocrit (volume fraction) 44 % 40-54 Automated erythrocyte mean corpuscular volume 90 [ foz_us] 80-99 Automated erythrocyte mean corpuscular h emoglobin (mass per erythrocyte) 30 pg 25-34 Automated erythrocyte mean corpuscular h emoglobin concentration measurement (mass/volume) 33 g/dL 32-36 Automated erythrocyte distribution width ratio 13. 5 % 10.0- 14.5 Automated blood platelet count (count/volume) 251 10*3/uL 130-400 Automated blood platelet mean volume measurement 9.7 [foz_us] 7.4-10.4 Automated blood neutrophils/100 leukocytes 58 % 42-75 Automated blood lymphocytes/100 leukocytes 26 % 12-44 Blood monocytes/100 leukocytes 13 % 0-12 Automated blood eosinophils/100 leukocytes 3 % 0-10 Automated blood basophils/100 leukocytes 0 % 0-10 Blood neutrophils automated count (number/volume) 5.7 10*3 1.8-7.8 Blood lymphocytes automated count (number/volume) 2.6 10*3 1.0-4.0 Blood monocytes automated count (number/volume) 1. 3 10*3 0.0-1.0 Automated eosinophil count 0.2 10*3/uL 0 .0-0.3 Automated blood basophil count (count/volume) 0.0 10*3/uL 0.0-0.1 Comprehensive metabolic panel - 11/10/19 03:44 Serum or plasma sodium measurement (moles/volume) 139 mmol/L 135-145 Serum or plasma potassium measurement (moles/volume) 4.7 mmol/L 3.6-5.0 Serum or plasma chloride measurement (moles/volume) 105 mmol/L 98-107 Carbon dioxide 22 mmol/L 21-32 Serum or plasma anion gap determination (moles/volume) 12 mmol/L 5-14 Serum or plasma urea nitrogen measurement (mass/volume ) 22 mg/dL 7-18 Serum or plasma creatinine measurement (mass/volume) 1.68 mg/dL 0.60-1.30 Serum or plasma urea nitrogen/creatinine mass ratio 13 NRG Serum or plasma creatinine measurement w ith calculation of estimated glomerular filtration rate 39 NRG Serum or plasma glucose measurement (mass/volume) 174 mg/dL 70-105 Serum or plasma calcium measurement (mass/volume) 8.6 mg/dL 8.5-10.1 Serum or plasma total bilirubin measurement (mass/volu me) 0.7 mg/dL 0.1-1.0 Serum or plasma alkaline phosphatase so surement (enzymatic activity/volume) 87 U/L 40-136 Serum or plasma aspartate aminotransfera se measurement (enzymatic activity/volume) 24 U/L 5-34 Serum or plasma alanine aminotransferase measurement (enzymatic activity/volume) 27 U/L 0-55 Serum or plasma protein measurement (mass/volume) 7.2 g/dL 6.4-8.2 Serum or plasma albumin measurement (mass/volume) 3.4 g/dL 3.2-4.5 CALCIUM CORRECTED 9.1 mg/dL 8.5-10.1 Lipid 1996 panel - 11/10/19 03:44 Serum or plasma triglyceride measurement (mass/volume) 120 mg/dL <150 Serum or plasma cholesterol measurement (mass/volume) 138 mg/dL < 200 Serum or plasma cholesterol in HDL measurement (mass/v olume) 34 mg/dL 40-60 Cholesterol in LDL [mass/volume] in serum or plasma by direct assay 95 mg/dL 1-129 Serum or plasma cholesterol in VLDL measurement (mass/ volume) 24 mg/dL 5-40 Capillary blood glucose measurement by g lucometer (mass/volume) - 11/10/19 12:13 Capillary blood glucose measurement by glucometer (mas s/volume) 197 mg/dL 70-110 Capillary blood glucose measurement by g lucometer (mass/volume) - 11/10/19 16:00 Capillary blood glucose measurement by glucometer (mas s/volume) 156 mg/dL 70-110 Capillary blood glucose measurement by g lucometer (mass/volume) - 11/10/19 20:46 Capillary blood glucose measurement by glucometer (mas s/volume) 182 mg/dL 70-110 Automated blood complete blood count (he mogram) panel - 11/11/19 03:31 Blood leukocytes automated count (number/volume) 10.3 10*3/uL 4.3-11.0 Blood erythrocytes automated count (number/volume) 4.80 10*6/uL 4.35-5.85 Venous blood hemoglobin measurement (mass/volume) 14.2 g/dL 13.3-17.7 Blood hematocrit (volume fraction) 44 % 40-54 Automated erythrocyte mean corpuscular volume 91 [ foz_us] 80-99 Automated erythrocyte mean corpuscular h emoglobin (mass per erythrocyte) 30 pg 25-34 Automated erythrocyte mean corpuscular h emoglobin concentration measurement (mass/volume) 33 g/dL 32-36 Automated erythrocyte distribution width ratio 13. 4 % 10.0- 14.5 Automated blood platelet count (count/volume) 232 10*3/uL 130-400 Automated blood platelet mean volume measurement 10.1 [foz_us] 7.4-10.4 Whole blood basic metabolic panel - 07/23 03:31 Serum or plasma sodium measurement (moles/volume) 139 mmol/L 135-145 Serum or plasma potassium measurement (moles/volume) 4.5 mmol/L 3.6-5.0 Serum or plasma chloride measurement (moles/volume) 105 mmol/L 98-107 Carbon dioxide 21 mmol/L 21-32 Serum or plasma anion gap determination (moles/volume) 13 mmol/L 5-14 Serum or plasma urea nitrogen measurement (mass/volume ) 27 mg/dL 7-18 Serum or plasma creatinine measurement (mass/volume) 1.78 mg/dL 0.60-1.30 Serum or plasma urea nitrogen/creatinine mass ratio 15 NRG Serum or plasma creatinine measurement w ith calculation of estimated glomerular filtration rate 37 NRG Serum or plasma glucose measurement (mass/volume) 154 mg/dL 70-105 Serum or plasma calcium measurement (mass/volume) 8.7 mg/dL 8.5-10.1 Complete blood count (CBC) with automate d white blood cell (WBC) differential - 02/18/20 13:00 Blood leukocytes automated count (number/volume) 8.7 10*3/uL 4.3-11.0 Blood erythrocytes automated count (number/volume) 5.50 10*6/uL 4.35-5.85 Venous blood hemoglobin measurement (mass/volume) 15.4 g/dL 13.3-17.7 Blood hematocrit (volume fraction) 48 % 40-54 Automated erythrocyte mean corpuscular volume 88 [ foz_us] 80-99 Automated erythrocyte mean corpuscular h emoglobin (mass per erythrocyte) 28 pg 25-34 Automated erythrocyte mean corpuscular h emoglobin concentration measurement (mass/volume) 32 g/dL 32-36 Automated erythrocyte distribution width ratio 13. 8 % 10.0- 14.5 Automated blood platelet count (count/volume) 315 10*3/uL 130-400 Automated blood platelet mean volume measurement 9.9 [foz_us] 7.4-10.4 Automated blood neutrophils/100 leukocytes 64 % 42-75 Automated blood lymphocytes/100 leukocytes 25 % 12-44 Blood monocytes/100 leukocytes 9 % 0-12 Automated blood eosinophils/100 leukocytes 2 % 0-10 Automated blood basophils/100 leukocytes 0 % 0-10 Blood neutrophils automated count (number/volume) 5.6 10*3 1.8-7.8 Blood lymphocytes automated count (number/volume) 2.1 10*3 1.0-4.0 Blood monocytes automated count (number/volume) 0. 8 10*3 0.0-1.0 Automated eosinophil count 0.2 10*3/uL 0 .0-0.3 Automated blood basophil count (count/volume) 0.0 10*3/uL 0.0-0.1 Comprehensive metabolic panel - 02/18/20 13:00 Serum or plasma sodium measurement (moles/volume) 139 mmol/L 135-145 Serum or plasma potassium measurement (moles/volume) 4.1 mmol/L 3.6-5.0 Serum or plasma chloride measurement (moles/volume) 106 mmol/L 98-107 Carbon dioxide 22 mmol/L 21-32 Serum or plasma anion gap determination (moles/volume) 11 mmol/L 5-14 Serum or plasma urea nitrogen measurement (mass/volume ) 17 mg/dL 7-18 Serum or plasma creatinine measurement (mass/volume) 1.63 mg/dL 0.60-1.30 Serum or plasma urea nitrogen/creatinine mass ratio 10 NRG Serum or plasma creatinine measurement w ith calculation of estimated glomerular filtration rate 41 NRG Serum or plasma glucose measurement (mass/volume) 201 mg/dL 70-105 Serum or plasma calcium measurement (mass/volume) 8.8 mg/dL 8.5-10.1 Serum or plasma total bilirubin measurement (mass/volu me) 0.6 mg/dL 0.1-1.0 Serum or plasma alkaline phosphatase so surement (enzymatic activity/volume) 90 U/L 40-136 Serum or plasma aspartate aminotransfera se measurement (enzymatic activity/volume) 22 U/L 5-34 Serum or plasma alanine aminotransferase measurement (enzymatic activity/volume) 16 U/L 0-55 Serum or plasma protein measurement (mass/volume) 7.8 g/dL 6.4-8.2 Serum or plasma albumin measurement (mass/volume) 3.5 g/dL 3.2-4.5 CALCIUM CORRECTED 9.2 mg/dL 8.5-10.1 Serum or plasma C reactive protein measu rement (mass/volume) - 02/18/20 13:00 Serum or plasma C reactive protein measurement (mass/v olume) 0.87 mg/dL 0.00-0.50 Serum or plasma troponin i.cardiac measu rement (mass/volume) - 02/18/20 13:00 Serum or plasma troponin i.cardiac measurement (mass/v olume) < ng/mL <0.028 Serum or plasma lithium measurement (mol es/volume) - 02/18/20 13:00 BNP PT 86.9 pg/mL <100.0 Encounters ACCT No. Visit Date/Time Discharge Status Pt. Type Provider Facility Loc./Unit Complaint [id number] 09/07/2019 13:47:33 09/07/2019 23:59:5 9 CLS Outpatient [id number] 11/09/2019 11:18:00 11:32:00 DIS Outpatient MUKUL HENNING DO [facility] CATH CHEST PAIN;HYPO GLYCEMIA [id number] 10/14/2019 08:26:00 10:17:00 DIS Emergency MARINA CRAFT DO [facility] ER VOMITING [id number] 10/10/2019 08:50:00 15:34:00 DIS Inpatient MARIO SULLIVAN MD [facility] ICU FALL AND GENERALIZED WE AKNESS [id number] 12/07/2018 00:15:00 23:59:59 CLS Preadmit LUPE WHITING MD [facility] CR3 WELLNESS [id number] 11/06/2018 09:00:00 00:01:00 DIS Outpatient LUPE WHITING MD [facility] CR3 WELLNESS [id number] 11/10/2018 08:39:00 23:59:59 CLS Outpatient KENNY CENTENO APRN [facility] RAD CHRONIC KIDNEY DISEASE STAGE III [id number] 11/08/2018 17:25:00 20:18:00 DIS Emergency PATRICK ALVAREZ [facility] ER BLOOD SUGAR ISSUES [id number] 11/07/2018 19:08:00 21:37:00 DIS Emergency PATRICK ALVAREZ [facility] ER BLOOD SUGARS TROUBLE [id number] 11/04/2018 12:16:00 14:20:00 DIS Emergency MIGNON CAMPOS, SHARON Kiran [facility] ER BLOOD SUGAR PRO BLEMS [id number] 10/17/2018 13:19:00 15:36:00 DIS Emergency CORTEZ CASTAÑEDA APRN [facility] ER HIGH GLUCOSE [id number] 10/15/2018 14:44:00 23:59:59 CLS Emergency CORTEZ CASTAÑEDA GLASS MOULD CLEANER [facility] ER TOO MUCH INSULIN [id number] 10/01/2018 06:00:00 00:01:00 DIS Outpatient JOHANNE CAMPOS, LUPE Vizcarra [facility] CR3 WELLNESS [id number] 08/09/2018 10:40:00 12:57:00 DIS Emergency PATRICK ALVAREZ [facility] ER GLUCOSE LEVEL LOW [id number] 08/03/2018 13:00:00 23:59:59 CLS Preadmit SANIA BRAR DO [facility] DSME TYPE 2 DIABETES [id number] 07/09/2018 13:44:00 00:01:00 DIS Outpatient SANIA BRAR DO [facility] DSME TYPE 2 DIABETES [id number] 02/26/2018 11:18:00 23:59:59 CLS Outpatient LUPE WHITING MD [facility] RAD SWELLING OF LOWER LEG [id number] 02/18/2020 13:38:00 Document Registration
--- NOTE | 2020-02-18 14:20 | NUR ---
COVID TEST DONE.
[2020-02-18 14:30] VITALS: BP 141/92
== END 2020-02-18 14:30 | disposition home or self-care (01) ==
LOC: EDUNIT# 12:45 → ER 12:46
DX: J18.9 Pneumonia, unspecified organism (principal); I12.9 Hypertensive chronic kidney disease with stage 1 through stage 4 chronic kidney disease, or unspecified chronic kidney disease; E11.22 Type 2 diabetes mellitus with diabetic chronic kidney disease; N18.3 Chronic kidney disease, stage 3 (moderate); I25.2 Old myocardial infarction; Z82.49 Family history of ischemic heart disease and other diseases of the circulatory system; Z88.2 Allergy status to sulfonamides; Z79.4 Long term (current) use of insulin
CPT/HCPCS: 36415; 71045; 80053; 83880; 84145; 84484; 85025; 86141; 87635

== ENCOUNTER 2020-02-29 12:28 | Emergency (ER) | payer MEDICARE ==
[~2020-02-29] VITALS: Ht 175 cm; Wt 113.0 kg
[~2020-02-29 12:28] MED LIST changes: +LEVO250T46 PO
--- OUTSIDE RECORDS SUMMARY | 2020-02-29 12:45 | XMS REPORT | Continuity of Care Document ---
Author Organization Unknown Address Unknown Phone Unavailable Allergies Active Description Code Type Severity Reaction Onset Reported/Identified Relationship to Patient Clinical Status Yes SULFA SULFA Unknown N/A 08/09/2018 Yes Sulfa (Sulfonamide Antibiotics) [id number] Drug Allergy Unknown N/A 019 Medications [...] ALLERGY STATUS TO SULFONAMIDES STATUS 10/07/2018 JOHANNE CAMPOS, LUPE Vizcarra Ot Z29. 8 [...] DISEASE, STAGE 3 (MODERAT 10/15/2018 CORTEZ CASTAÑEDA EXTERN Ot 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 MELLITUS WITH HYPERGLYCE 10/15/2018 CORTEZ CASTAÑEDA APRN Ot R73 .9 HYPERGLYCEMIA, UNSPECIFIED 10/15/2018 CORTEZ CASTAÑEDA APRN Ot Z79 .4 DIRECTOR ON AIR (CURRENT) USE OF INSULIN 10/15/2018 CORTEZ CASTAÑEDA EXTERN Ot Z88 .2 ALLERGY STATUS TO SULFONAMIDES STATUS 10/17/2018 CORTEZ CASTAÑEDA EXTERN Ot 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 MELLITUS WITH HYPERGLYCE 10/17/2018 CORTEZ CASTAÑEDA EXTERN Ot R73 .9 HYPERGLYCEMIA, UNSPECIFIED 10/17/2018 CORTEZ CASTAÑEDA EXTERN Ot Z79 .4 [facility] (CURRENT) USE OF INSULIN 10/17/2018 CORTEZ CASTAÑEDA EXTERN Ot Z88 .2 ALLERGY STATUS TO SULFONAMIDES STATUS 10/20/2018 CORTEZ CASTAÑEDA EXTERN Ot 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 MELLITUS WITH HYPERGLYCE 10/20/2018 CORTEZ CASTAÑEDA APRN Ot R73 .9 HYPERGLYCEMIA, UNSPECIFIED 10/20/2018 CORTEZ CASTAÑEDA EXTERN Ot Z79 .4 DIRECTOR ON AIR (CURRENT) USE OF INSULIN 10/20/2018 CORTEZ CASTAÑEDA [...] E11.22 TYPE 2 DIABETES MELLITUS W DIABETIC CARE COMPANION 11/07/2018 BERNOT, PATRICK Ot N18.3 CHRONIC KIDNEY [...] E11.22 TYPE 2 DIABETES MELLITUS W DIABETIC CARE COMPANION 11/10/2018 BERNOT, PATRICK Ot N18.3 CHRONIC KIDNEY DISEASE, STAGE 3 (MODERAT 11/10/2018 BERNOT, PATRICK Ot R73.09 OTHER ABNORMAL GLUCOSE 11/10/2018 BERNOT, PATRICK Ot Z88.2 ALLERGY STATUS TO SULFONAMIDES STATUS 11/11/2018 KENNY CENTENO APRN Ot E11.22 TYPE 2 DIABETES MELLITUS W DIABETIC CARE COMPANION 11/11/2018 KENNY CENTENO APRN Ot E78.5 HYPERLIPIDEMIA, UNSPECIFIED 11/11/2018 KENNY CENTENO APRN Ot I12.9 HYPERTENSIVE CHRONIC KIDNEY DISEASE W ST 11/11/2018 KENNY CENTENO APRN Ot N13.8 OTHER OBSTRUCTIVE AND REFLUX UROPATHY 11/11/2018 KENNY CENTENO APRN Ot N18.3 CHRONIC KIDNEY DISEASE, STAGE 3 (MODERAT 11/11/2018 KENNY CENTENO APRN Ot R33.9 RETENTION OF URINE, UNSPECIFIED 11/11/2018 KENNY CENTENO APRN Ot Z79.1 [facility] (CURRENT) USE OF NON-STEROIDAL 11/14/2018 BERNOT, PATRICK [...] E11.22 TYPE 2 DIABETES MELLITUS W DIABETIC CARE COMPANION 12/17/2018 KENNY CENTENO APRN Ot E78.5 HYPERLIPIDEMIA, UNSPECIFIED 12/17/2018 KENNY CENTENO APRN Ot I12.9 HYPERTENSIVE CHRONIC KIDNEY DISEASE W ST 12/17/2018 KENNY CENTENO APRN Ot N13.8 OTHER OBSTRUCTIVE AND REFLUX UROPATHY 12/17/2018 KENNY CENTENO APRN Ot N18.3 CHRONIC KIDNEY DISEASE, STAGE 3 (MODERAT 12/17/2018 KENNY CENTENO APRN Ot R33.9 RETENTION OF URINE, UNSPECIFIED 12/17/2018 KENNY CENTENO APRN Ot Z79.1 DIRECTOR ON AIR (CURRENT) USE OF NON-STEROIDAL 10/10/2019 SANIA BRAR [...] Ot I25. 10 ATHSCL HEART DISEASE OF [place] CORONARY 10/13/2019 MARIO SULLIVAN MD Ot K21. [...] 10/13/2019 MARIO SULLIVAN MD Ot Z79. 4 [facility] (CURRENT) USE OF INSULIN 10/13/2019 MARIO SULLIVAN MD Ot Z83. 79 FAMILY HISTORY OF OTHER DISEASES OF THE 10/14/2019 CRAFT DO, MARINA L Ot E11.2 2 TYPE 2 DIABETES MELLITUS W DIABETIC CARE COMPANION 10/14/2019 CRFAT DO, MARINA L Ot I12.9 HYPERTENSIVE CHRONIC [...] 10/14/2019 CRAFT DO, MARINA L Ot Z79.4 [facility] (CURRENT) USE OF INSULIN 10/14/2019 CRAFT DO, MARINA L Ot Z79.8 2 [facility] (CURRENT) USE OF ASPIRIN 10/14/2019 CRAFT DO, MARINA L Ot Z82.4 9 FAMILY HX OF ISCHE[place] HEART DIS AND OTH DI 10/14/2019 CRAFT DO, MARINA L Ot Z88.2 ALLERGY STATUS TO SULFONAMIDES STATUS 11/11/2019 GELLENDER DO, MUKUL Cho Ot E11.22 TYPE 2 DIABETES MELLITUS W DIABETIC CARE COMPANION 11/11/2019 GELLENDER DO, MUKUL Cho Ot E78.5 HYPERLIPIDEMIA, UNSPECIFIED 11/11/2019 GELLENDER DOMUKUL Ot F32.9 MAJOR DEPRESSIVE DISORDER, SINGLE EPISOD 11/11/2019 GELLENDER DO, MUKUL Cho Ot I12.9 HYPERTENSIVE CHRONIC KIDNEY DISEASE W ST 11/11/2019 GELLENDER DOMUKUL Ot I21.4 NON-ST ELEVATION (NSTEMI) MYOCARDIAL INF 11/11/2019 GELLENDER DO, MUKUL Cho Ot I25.10 ATHSCL HEART DISEASE OF [place] CORONARY 11/11/2019 GELLENDER DO, MUKUL Cho Ot N18.3 CHRONIC KIDNEY DISEASE, STAGE 3 (MODERAT 11/11/2019 GELLENDER DO, MUKUL Cho Ot N40.0 BENIGN PROSTATIC HYPERPLASIA WITHOUT LOW 11/11/2019 GELLENDER DO, MUKUL Cho Ot Z79.4 [facility] (CURRENT) USE OF INSULIN 11/11/2019 GELLENDER DO, MUKUL Cho Ot Z79.82 DIRECTOR ON AIR (CURRENT) USE OF ASPIRIN 11/11/2019 GELLENDER DO, MUKUL Cho Ot Z79.899 OTHER DIRECTOR ON AIR (CURRENT) DRUG THERAPY 11/11/2019 GELLENDER DO, MUKUL Cho Ot Z82.49 FAMILY HX OF ISCHE[place] HEART DIS AND OTH DI 11/11/2019 GELLENDER DO, MUKUL Cho Ot Z88.2 ALLERGY STATUS TO SULFONAMIDES STATUS 11/26/2019 GELLENDER DO, MUKUL Cho Ot E11.22 TYPE 2 DIABETES MELLITUS W DIABETIC CARE COMPANION 11/26/2019 GELLENDER DO, MUKUL Cho Ot E78.5 HYPERLIPIDEMIA, UNSPECIFIED 11/26/2019 GELLENDER DO, MUKUL Cho Ot F32.9 MAJOR DEPRESSIVE DISORDER, SINGLE EPISOD 11/26/2019 GELLENDER DO, MUKUL Cho Ot I12.9 HYPERTENSIVE CHRONIC KIDNEY DISEASE W ST 11/26/2019 GELLENDER DO, MUKUL Cho Ot I21.4 NON-ST ELEVATION (NSTEMI) MYOCARDIAL INF 11/26/2019 GELLENDER DO, MUKUL Cho Ot I25.10 ATHSCL HEART DISEASE OF [place] CORONARY 11/26/2019 GELLENDER DO, MUKUL Cho Ot N18.3 CHRONIC KIDNEY DISEASE, STAGE 3 (MODERAT 11/26/2019 GELLENDER DO, MUKUL Cho Ot N40.0 BENIGN PROSTATIC HYPERPLASIA WITHOUT LOW 11/26/2019 GELLENDER DO, MUKUL Cho Ot Z79.4 [facility] (CURRENT) USE OF INSULIN 11/26/2019 GELLENDER DO, MUKUL Cho Ot Z79.82 [facility] (CURRENT) USE OF ASPIRIN 11/26/2019 GELLENDER DO, MUKUL Cho Ot Z79.899 OTHER DIRECTOR ON AIR (CURRENT) DRUG THERAPY 11/26/2019 GELLENDER DO, MUKUL Cho Ot Z82.49 FAMILY HX OF I[place]HE[place] HEART DIS AND OTH DI 11/26/2019 GELLENDER DO, MUKUL Cho Ot Z88.2 ALLERGY STATUS TO SULFONAMIDES STATUS 12/29/2019 GELLENDER DO, MUKUL Cho Ot E11.22 TYPE 2 DIABETES MELLITUS W DIABETIC CARE COMPANION 12/29/2019 GELLENDER DO, MUKUL Cho Ot E78.5 HYPERLIPIDEMIA, UNSPECIFIED 12/29/2019 GELLENDER DO, MUKUL Cho Ot F32.9 MAJOR DEPRESSIVE DISORDER, SINGLE EPISOD 12/29/2019 [facility] Cho Ot I12.9 HYPERTENSIVE CHRONIC KIDNEY DISEASE W ST 12/29/2019 [facility] M[facility] Cho Ot I21.4 NON-ST ELEVATION (NSTEMI) MYOCARDIAL INF 12/29/2019 [facility] MUKUL Cho Ot I25.10 ATHSCL HEART DISEASE OF [place] CORONARY 12/29/2019 [facility], MUKUL Cho Ot N18.3 CHRONIC KIDNEY DISEASE, STAGE 3 (MODERAT 12/29/[facility] Cho Ot N40.0 BENIGN PROSTATIC HYPERPLASIA WITHOUT LOW 12/29/2019 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 Urine urobilinogen measurement by automated test [...] INFLUENZA A AND B ANTIGENS BY IA [facility] Complete blood count (CBC) with automate d [...] g/dL 3.2-4.5 CALCIUM CORRECTED 9.2 mg/dL 8.5-10.1 PROCALCITONIN (PCT) - 02/18/20 13:00 PROCALCITONIN (PCT) 0.04 ng/mL <0.10 Serum or plasma troponin i.cardiac measu rement (mass/volume) - 02/18/20 13:00 Serum or plasma troponin i.cardiac measurement (mass/v olume) < ng/mL <0.028 Serum or plasma lithium measurement (mol es/volume) - 02/18/20 13:00 BNP PT 86.9 pg/mL <100.0 Serum or plasma C reactive protein measu rement (mass/volume) - 02/18/20 13:00 Serum or plasma C reactive protein measurement (mass/v olume) 0.87 mg/dL 0.00-0.50 2018 Coronavirus SARS-CoV-2 SO - 0 14:14 Coronavirus Ab [Units/volume] in Serum Negative Negative Encounters ACCT No. Visit Date/Time Discharge Status Pt. Type Provider Facility Loc./Unit Complaint [id number] 09/07/2019 13:47:33 09/07/2019 23:59:5 9 CLS Outpatient [id number] 02/18/2020 12:46:00 020 14:30:00 DIS Emergency CORTEZ CASTAÑEDA APRN [facility] ER FEVER;CHEST PAIN [id number] 11/09/2019 11:18:00 11:32:00 DIS Outpatient MUKUL HENNING DO [facility] CATH CHEST PAIN;HYPO GLYCEMIA [id number] 10/14/2019 08:26:00 019 10:17:00 DIS Emergency MARINA CRAFT DO [facility] ER VOMITING [id number] 10/10/2019 08:50:00 15:34:00 DIS Inpatient MARIO SULLIVAN MD [facility] ICU FALL AND GENERALIZED WE AKNESS [id number] 12/07/2018 00:15:00 019 23:59:59 CLS Preadmit LUPE WHITING MD [facility] CR3 WELLNESS [id number] 11/06/2018 09:00:00 019 00:01:00 DIS Outpatient LUPE WHITING MD [facility] CR3 WELLNESS [id number] 11/10/2018 08:39:00 23:59:59 CLS Outpatient KENNY CENTENO EXTERN [facility] RAD CHRONIC KIDNEY DISEASE STAGE III [id number] 11/08/2018 17:25:00 20:18:00 DIS Emergency JUNIOROTVALDOIS [facility] ER BLOOD SUGAR ISSUES [id number] 11/07/2018 19:08:00 21:37:00 DIS Emergency BERNOT, PATRICK [facility] ER BLOOD SUGARS TROUBLE [id number] 11/04/2018 12:16:00 14:20:00 DIS Emergency MIGNON CAMPOS, SHARON iKran [facility] ER BLOOD SUGAR PRO BLEMS [id number] 10/17/2018 13:19:00 15:36:00 DIS Emergency CORTEZ CASTAÑEDA APRN [facility] ER HIGH GLUCOSE [id number] 10/15/2018 14:44:00 23:59:59 CLS Emergency CORTEZ CASTAÑEDA APRN [facility] ER TOO MUCH INSULIN [id number] 10/01/2018 06:00:00 00:01:00 DIS Outpatient LUPE WHITING MD [facility] CR3 WELLNESS [id number] 08/09/2018 10:40:00 12:57:00 DIS Emergency PATRICK ALVAREZ [facility] ER GLUCOSE LEVEL LOW [id number] 08/03/2018 13:00:00 23:59:59 CLS Preadmit SANIA BRAR DO [facility] DSME TYPE 2 DIABETES [id number] 07/09/2018 13:44:00 00:01:00 DIS Outpatient SANIA BRAR DO [facility] DSME TYPE 2 DIABETES [id number] 02/26/2018 11:18:00 23:59:59 CLS Outpatient JOHANNE CAMPOS, LUPE Hoang [facility] RAD SWELLING OF LOWER LEG
[2020-02-29 13:28] LABS: BASOPHILS % (AUTO) 0 % (0-10); EOSINOPHILS # (AUTO) 0.3 10^3/uL (0.0-0.3); EOSINOPHILS % (AUTO) 3 % (0-10); HEMATOCRIT 48 % (40-54); HEMOGLOBIN 15.7 G/DL (13.3-17.7); LYMPHOCYTES # (AUTO) 2.1 X 10^3 (1.0-4.0); LYMPHOCYTES % (AUTO) 24 % (12-44); MEAN CORPUSCULAR HEMOGLOBIN 29 PG (25-34); MEAN CORPUSCULAR HGB CONC 33 G/DL (32-36); MEAN CORPUSCULAR VOLUME 88 FL (80-99); MEAN PLATELET VOLUME 9.8 FL (7.4-10.4); MONOCYTES # (AUTO) 1.2 X 10^3 (0.0-1.0); MONOCYTES % (AUTO) 13 % (0-12); NEUTROPHILS # (AUTO) 5.4 X 10^3 (1.8-7.8); NEUTROPHILS % (AUTO) 60 % (42-75); PLATELET COUNT 271 10^3/uL (130-400); RED CELL DISTRIBUTION WIDTH 13.9 % (10.0-14.5)
--- NOTE | 2020-02-29 13:38 | NUR ---
DR IN WITH PT AT THIS TIME.
[2020-02-29 13:42] LABS: FIBRIN DEGRADATION PRODUCTS 2.89 UG/ML (0.00-0.49); INR 0.8 (0.8-1.4); PROTHROMBIN TIME PATIENT 11.2 SEC (12.2-14.7)
[2020-02-29 13:45] LABS: ALANINE AMINOTRANSFERASE 15 U/L (0-55); ALBUMIN 3.7 GM/DL (3.2-4.5); ALKALINE PHOSPHATASE 97 U/L (40-136); BUN/CREATININE RATIO 13; CARBON DIOXIDE 26 MMOL/L (21-32); CHLORIDE 102 MMOL/L (98-107); CREATININE SERUM 1.65 MG/DL (0.60-1.30); ERYTHROCYTE SEDIMENTATION RATE 12 MM/HR (0-30); GFR ESTIMATED 40; GLUCOSE 154 MG/DL (70-105); POTASSIUM 4.5 MMOL/L (3.6-5.0); SODIUM 139 MMOL/L (135-145)
--- NOTE | 2020-02-29 13:45 | Diagnostic Imaging Report ---
CHEST 1 VIEW, AP/PA ONLY Indication: Fever and shortness of air Comparison: 02/18/2020 Findings: Left basilar subsegmental atelectasis has resolved. No focal airspace disease in the visualized lungs. Please note that the posterior lower lobes are poorly evaluated by portable radiography. No pleural effusion or pneumothorax. Normal cardiomediastinal silhouette. Impression: 1. No acute cardiopulmonary process by portable radiography. Dictated by: Dictated on workstation # [id number]
--- NOTE | 2020-02-29 14:20 | NUR ---
COVID TESTING DONE.
--- NOTE | 2020-02-29 14:45 | NUR ---
PT NOTIFIED OF DR CALLING TO SEE ABOUT A VQ SCAN. DENIES NEEDS AT THIS TIME.
[2020-02-29 14:48] LABS: BILIRUBIN,URINE NEGATIVE (NEGATIVE); CLARITY,URINE CLEAR; COLOR,URINE YELLOW; GLUCOSE, URINE (UA) NEGATIVE (NEGATIVE); KETONES,URINE NEGATIVE (NEGATIVE); LEUKOCYTE ESTERASE ,URINE NEGATIVE (NEGATIVE); NITRITE,URINE NEGATIVE (NEGATIVE); PROTEIN,URINE TRACE (NEGATIVE)
[2020-02-29 14:55] LABS: BACTERIA,URINE TRACE /HPF; RBC,URINE 0-2 /HPF; WBC,URINE RARE /HPF
--- NOTE | 2020-02-29 14:55 | ED Cough/URI ---
General Chief Complaint: Fever-Adult/Adol Stated Complaint: FEVER,SOA Nursing Triage Note: PT STATES FEVER AT HOME BUT STATES HE DOES NOT HAVE A THERMOMETER, 98.3 AT TRIAGE, DID TAKE 2 TYLENOL ABOUT 90 MIN CLOSING AGENT. WAS SEEN HERE LAST WEEK FOR THE SAME AND TOOK ALL HIS ABX BUT STILL FEELS LIKE HE HAS A FEVER, WAS COVID NEGATIVE LAST WEEK. DENIES SOB AT TRIAGE. Sepsis Screen: No Definite Risk Allergies and Home Medications Allergies Coded Allergies: Sulfa (Sulfonamide Antibiotics) (Unverified Allergy, Unknown, 10/10/19) Home Medications Aspirin 81 Mg Tablet.dr, 81 MG PO DAILY, (Reported) Clonidine HCl 0.2 Mg Tablet, 0.2 MG PO HS, (Reported) Furosemide 40 Mg Tablet, 40 MG PO DAILY, (Reported) Insulin Detemir 100 Unit/1 Ml Insuln.pen, 32 UNITS SC DAILY, (Reported) Insulin Detemir 100 Unit/1 Ml Insuln.pen, 29 UNIT SQ HS, (Reported) Isosorbide Mononitrate 120 Mg Tab.er.24h, 120 MG PO DAILY, (Reported) Levofloxacin 250 Mg Tablet, 250 MG PO DAILY Prescribed by: CORTEZ CASTAÑEDA on 02/18/20 1408 Linagliptin 5 Mg Tablet, 5 MG PO DAILY, (Reported) Losartan Potassium 100 Mg Tablet, 100 MG PO DAILY, (Reported) Metoprolol Succinate 100 Mg Tab.er.24h, 100 MG PO DAILY, (Reported) Omeprazole 20 Mg Capsule.dr, 20 MG PO DAILY, (Reported) Sennosides/Docusate Sodium 1 Each Tablet, 2 TAB PO HS, (Reported) Sertraline HCl 25 Mg Tablet, 25 MG PO DAILY Prescribed by: JINA CHURCH on 11/11/19 0840 Tamsulosin HCl 0.4 Mg Cap, 0.4 MG PO DAILY, (Reported) Vit C/E/Zn/Coppr/Lutein/Zeaxan 1 Each Capsule, 1 CAP PO BID, (Reported) Past Flblkwr-Lsynxz-Nuhbxz Hx Patient Social History Alcohol Use: Denies Use Recreational Drug Use: No Smoking Status: Never a Smoker 2nd Hand Smoke Exposure: No Recent Foreign Travel: No Contact w/Someone Who Travel: No Recent Infectious Disease Expo: No Recent Hopitalizations: Yes (October 10 ) Immunizations Up To Date Tetanus Booster (TDap): Less than 5yrs Date of Pneumonia Vaccine: Oct 10, 2013 Date of Influenza Vaccine: Aug 10, 2019 Seasonal Allergies Seasonal Allergies: No Past Medical History Surgeries: No Respiratory: Yes (Pneumonia patient states "when i was 1") Pneumonia Cardiac: Yes Heart Attack, Hypertension Neurological: No Genitourinary: Yes (Chronic kidney disease stage 3 ) Gastrointestinal: No Musculoskeletal: No Endocrine: No Diabetes, Insulin dep HEENT: No (patient wears glasses ) Loss of Vision: Denies Hearing Impairment: Denies Cancer: No Psychosocial: No Integumentary: No Blood Disorders: No Family Medical History Cardiovascular disease 19 FATHER Hypertension 19 FATHER CAD Over 55 Years Old, Hypertension Physical Exam Vital Signs - First Documented 02/29/20 12:47 Temp 36.9 Pulse 88 Resp 20 B/P (MAP) 178/100 (126) Pulse Ox 92 O2 Delivery Room Air Capillary Refill : Less Than 3 Seconds Height: 5'7.00" Weight: 200lbs. oz. 90.409391nr; 36.00 BMI Method:Estimated Focused Exam Lactate Level 02/29/20 13:10: Lactic Acid Level 1.21 Lactic Acid Level Laboratory Tests Test 02/29/20 13:10 Lactic Acid Level 1.21 MMOL/L (0.50-2.00) Progress/Results/Core Measures Suspected Sepsis Recent Fever Within 48 Hours: Yes Infection Criteria Present: Documented Infection New/Unexplained Altered Menta: No Sepsis Screen: No Definite Risk SIRS Temperature: Pulse: 88 Respiratory Rate: 20 Laboratory Tests 02/29/20 13:10: White Blood Count 9.0 Blood Pressure 178 /100 Mean: 126 02/29/20 13:10: Lactic Acid Level 1.21 Laboratory Tests 02/29/20 13:10: Creatinine 1.65H, INR Comment 0.8, Platelet Count 271, Total Bilirubin 0.4 Results/Orders Lab Results Laboratory Tests Test 02/29/20 13:10 02/29/20 14:20 Range/Units White Blood Count 9.0 4.3-11.0 10^3/uL Red Blood Count 5.49 4.35-5.85 10^6/uL Hemoglobin 15.7 13.3-17.7 G/DL Hematocrit 48 40-54 % Mean Corpuscular Volume 88 80-99 FL Mean Corpuscular Hemoglobin 29 25-34 PG Mean Corpuscular Hemoglobin Concent 33 32-36 G/DL Red Cell Distribution Width 13.9 10.0-14.5 % Platelet Count 271 130-400 10^3/uL Mean Platelet Volume 9.8 7.4-10.4 FL Neutrophils (%) (Auto) 60 42-75 % Lymphocytes (%) (Auto) 24 12-44 % Monocytes (%) (Auto) 13 H 0-12 % Eosinophils (%) (Auto) 3 0-10 % Basophils (%) (Auto) 0 0-10 % Neutrophils # (Auto) 5.4 1.8-7.8 X 10^3 Lymphocytes # (Auto) 2.1 1.0-4.0 X 10^3 Monocytes # (Auto) 1.2 H 0.0-1.0 X 10^3 Eosinophils # (Auto) 0.3 0.0-0.3 10^3/uL Basophils # (Auto) 0.0 0.0-0.1 10^3/uL Erythrocyte Sedimentation Rate 12 0-30 MM/HR Prothrombin Time 11.2 L 12.2-14.7 SEC INR Comment 0.8 0.8-1.4 Activated Partial Thromboplast Time 31 24-35 SEC Fibrinogen 570 H 221-496 MG/DL D-Dimer 2.89 H 0.00-0.49 UG/ML Sodium Level 139 135-145 MMOL/L Potassium Level 4.5 3.6-5.0 MMOL/L Chloride Level 102 98-107 MMOL/L Carbon Dioxide Level 26 21-32 MMOL/L Anion Gap 11 5-14 MMOL/L Blood Urea Nitrogen 22 H 7-18 MG/DL Creatinine 1.65 H 0.60-1.30 MG/DL Estimat Glomerular Filtration Rate 40 BUN/Creatinine Ratio 13 Glucose Level 154 H 70-105 MG/DL Lactic Acid Level 1.21 0.50-2.00 MMOL/L Calcium Level 9.0 8.5-10.1 MG/DL Corrected Calcium 9.2 8.5-10.1 MG/DL Magnesium Level 2.0 1.6-2.4 MG/DL Total Bilirubin 0.4 0.1-1.0 MG/DL Aspartate Amino Transf (AST/SGOT) 23 5-34 U/L Alanine Aminotransferase (ALT/SGPT) 15 0-55 U/L Alkaline Phosphatase 97 40-136 U/L Lactate Dehydrogenase 181 125-220 U/L Troponin I < 0.028 <0.028 NG/ML C-Reactive Protein High Sensitivity 0.40 0.00-0.50 MG/DL B-Type Natriuretic Peptide 60.8 <100.0 PG/ML Total Protein 8.0 6.4-8.2 GM/DL Albumin 3.7 3.2-4.5 GM/DL Procalcitonin 0.04 <0.10 NG/ML Urine Color YELLOW Urine Clarity CLEAR Urine pH 6.0 5-9 Urine Specific [place] 1.010 L 1.016-1.022 Urine Protein TRACE H NEGATIVE Urine Glucose (UA) NEGATIVE NEGATIVE Urine Ketones NEGATIVE NEGATIVE Urine Nitrite NEGATIVE NEGATIVE Urine Bilirubin NEGATIVE NEGATIVE Urine Urobilinogen 0.2 < = 1.0 MG/DL Urine Leukocyte Esterase NEGATIVE NEGATIVE Urine RBC (Auto) TRACE-I NEGATIVE Urine RBC 0-2 /HPF Urine WBC RARE /HPF Urine Squamous Epithelial Cells 0-2 /HPF Urine Crystals NONE /LPF Urine Bacteria TRACE /HPF Urine Casts NONE /LPF Urine Mucus NEGATIVE /LPF Urine Culture Indicated NO Micro Results Microbiology 02/29/20 Influenza Types A,B Antigen (RADHA) - Final, Complete My Orders Orders - NOREEN CORREA DO Ekg Tracing (02/29/20 12:42) Monitor-Rhythm Ecg Trace Only (02/29/20 12:42) Chest 1 View, Ap/Pa Only (02/29/20 12:42) BNP (02/29/20 12:42) Cbc With Automated Diff (02/29/20 12:42) Comprehensive Metabolic Panel (02/29/20 12:42) Hs C Reactive Protein (02/29/20 12:42) Fibrin Degradation Products (02/29/20 12:42) Lactic Acid Analyzer (02/29/20 12:42) Magnesium (02/29/20 12:42) Procalcitonin (Pct) (02/29/20 12:42) Protime With Inr (02/29/20 12:42) Partial Thromboplastin Time (02/29/20 12:42) Ua Culture If Indicated (02/29/20 12:42) Blood Culture (02/29/20 12:42) Influenza A And B Antigens (02/29/20 12:42) Erythrocyte Sedimentation Rate (02/29/20 12:42) Troponin I (02/29/20 12:42) LDH (02/29/20 12:42) Coronavirus Sars-Cov-2 So 2019 (02/29/20 12:42) Adenovirus Detection By Pcr (02/29/20 12:42) Parainfluenza Virus 1,2,3 Pcr (02/29/20 12:42) Ferritin (02/29/20 12:42) Fibrinogen (02/29/20 12:42) Enoxaparin Injection (Lovenox Injection) (02/29/20 15:00) Us Venous Lower Ext Rt (02/29/20 14:57) Hydralazine Injection (Apresoline Inject (02/29/20 16:15) Medications Given in ED Current Medications Medications Dose Ordered Sig/Laya Route Start Time Stop Time Status Last Admin Dose Admin Enoxaparin Sodium 120 mg ONCE ONCE SC 02/29/20 15:00 02/29/20 15:01 DC 02/29/20 15:08 120 MG Hydralazine HCl 10 mg ONCE ONCE IV 02/29/20 16:15 02/29/20 16:16 DC 02/29/20 16:42 10 MG Vital Signs/I&O 02/29/20 12:47 Temp 36.9 Pulse 88 Resp 20 B/P (MAP) 178/100 (126) Pulse Ox 92 O2 Delivery Room Air Capillary Refill : Less Than 3 Seconds Blood Pressure Mean: 126 Progress Note : Progress Note PT SEEN IN COVID UNIT, PPE WORN AT ALL TIMES COVID TESTING DONE PT COMPLETELY ASYMPTOMATIC DURING ENTIRE ER STAY PT HAD ELEVATED D-DIMER AND FIBRINOGEN, UNABLE TO DO CT CHEST ANGIOGRAM DUE TO ELEVATED CREATININE AND GFR < 60, UNABLE TO DO VQ SCAN TODAY, SO WILL TREAT WITH LOVENOX AND SCHEDULE VQ SCAN FOR TOMORROW. Departure Impression Primary Impression: SUBJECTIVE DYSPNEA Additional Impressions: COVID P.U.I. Elevated d-dimer Chronic renal failure, stage 3 (moderate) Uncontrolled hypertension Disposition: 01 HOME, SELF-CARE Condition: Improved Departure-Patient Inst. Referrals: MUKUL HENNING DO (PCP/Family) Primary Care Physician Patient Instructions: Coronavirus Disease 2019 (COVID-19) (DC), Dependent Edema (DC), High Blood Pressure (DC) Add. Discharge Instructions: CONTINUE YOUR REGULAR MEDICATIONS PRESCRIBED ELEVATE LEGS MUCH POSSIBLE RETURN TOMORROW MORNING AT 06:30 AM FOR OUTPATIENT V/Q SCAN FOLLOW UP WITH YOUR DR IN 1-2 DAYS FOR FURTHER CARE, RETURN TO ER IF WORSE QUARANTINE YOURSELF AND ANY OTHER HOUSEHOLD MEMBERS FOR THE NEXT 2 WEEKS OR UNTIL CLEARED BY HEALTH DEPT. All discharge instructions reviewed with patient and/or family. Voiced un derstanding. NOREEN CORREA DO Feb 29, 2020 14:55
[2020-02-29 14:56] LABS: SQUAMOUS EPITHELIAL CELL,UR 0-2 /HPF
[2020-02-29 14:59] LABS: BILIRUBIN,TOTAL 0.4 MG/DL (0.1-1.0)
[2020-02-29] MEDS ORDERED: ENOXAPARIN 60 MG/0.6 ML (LOVENOX) SYR SC ONE (15:00)
--- NOTE | 2020-02-29 15:02 | NUR ---
PT UPDATED ON DR CORREA'S PLAN OF CARE.
[2020-02-29] MEDS ORDERED: hydrALAZINE (APESOLINE) 20 MG/ML VIAL IV ONE (16:15)
--- NOTE | 2020-02-29 17:12 | Diagnostic Imaging Report ---
INDICATION: Fever. Shortness of air. COMPARISON: None TECHNIQUE: Duplex, hayes-scale and color-flow imaging of the right lower extremity venous system was performed. FINDINGS: The common femoral vein, superficial femoral vein, profunda femoris, and popliteal veins are normal. These vessels show normal compressibility, color flow, and doppler augmentation. The deep calf veins, although not very well seen, demonstrate no distinct intraluminal thrombus. IMPRESSION: Negative venous Doppler of the right lower extremity. Dictated by: Dictated on workstation # [id number]
[2020-02-29 17:16] VITALS: BP 167/94
[2020-03-01 12:35] LABS: PARAINFLU 1 PCR Not Detected (Not Detected); PARAINFLU 2 PCR Not Detected (Not Detected)
== END 2020-02-29 17:16 | disposition home or self-care (01) ==
LOC: EDUNIT# 12:28 → ER 12:31
DX: R06.00 Dyspnea, unspecified (principal); I12.9 Hypertensive chronic kidney disease with stage 1 through stage 4 chronic kidney disease, or unspecified chronic kidney disease; N18.3 Chronic kidney disease, stage 3 (moderate); E11.22 Type 2 diabetes mellitus with diabetic chronic kidney disease; R79.89 Other specified abnormal findings of blood chemistry; I25.2 Old myocardial infarction; Z82.49 Family history of ischemic heart disease and other diseases of the circulatory system; Z20.828 Contact with and (suspected) exposure to other viral communicable diseases; Z88.2 Allergy status to sulfonamides; Z79.82 Long term (current) use of aspirin; Z79.4 Long term (current) use of insulin
CPT/HCPCS: 36415; 71045; 80053; 81000; 82728; 83605; 83615; 83735; 83880; 84145; 84484; 85025; 85379; 85384; 85610; 85652; 85730; 86141; 87040; 87631; 87635; 87798; 87804; 93005; 93041

== ENCOUNTER → 2020-03-01 | Outpatient (CLI) | payer MEDICARE ==
--- NOTE | 2020-03-01 08:06 | Diagnostic Imaging Report ---
INDICATION: Shortness of breath. 5.49 mCi intravenous technetium 99m labeled MAA was injected intravenously and planar imaging performed for perfusion imaging. FINDINGS: No segmental or subsegmental pleural-based mismatch defects when correlated with the chest radiograph of one-day prior. This is a low probability study with no suspicious findings. IMPRESSION: Low probability of nuclear medicine perfusion lung scanning. No suspicious finding. Dictated by: Dictated on workstation # [id number]
== END ==
LOC: CARD 06:17
PROVIDERS: ATTEND Emergency Medicine
DX: R06.02 Shortness of breath (principal)

== ENCOUNTER 2020-03-22 21:23 | Emergency (ER) | payer MEDICARE ==
--- OUTSIDE RECORDS SUMMARY | 2020-03-22 21:31 | XMS REPORT | Continuity of Care Document ---
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 10/15/2018 CORTEZ CASTAÑEDA APRN Ot R73 .9 HYPERGLYCEMIA, UNSPECIFIED 10/15/2018 CORTEZ CASTAÑEDA APRN Ot Z79 .4 PRISON (CURRENT) USE OF INSULIN 10/15/2018 CORTEZ CASTAÑEDA MICROELECTRONICS ENGINEER Ot Z88 .2 ALLERGY STATUS TO SULFONAMIDES STATUS 10/17/2018 CORTEZ CASTAÑEDA MICROELECTRONICS ENGINEER Ot 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 MELLITUS WITH HYPERGLYCE 10/17/2018 CORTEZ CASTAÑEDA MICROELECTRONICS ENGINEER Ot R73 .9 HYPERGLYCEMIA, UNSPECIFIED 10/17/2018 CORTEZ CASTAÑEDA MICROELECTRONICS ENGINEER Ot Z79 .4 PRISON (CURRENT) USE OF INSULIN 10/17/2018 CORTEZ CASTAÑEDA MICROELECTRONICS ENGINEER Ot Z88 .2 ALLERGY STATUS TO SULFONAMIDES STATUS 10/20/2018 CORTEZ CASTAÑEDA MICROELECTRONICS ENGINEER Ot 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 MELLITUS WITH HYPERGLYCE 10/20/2018 CORTEZ CASTAÑEDA APRN Ot R73 .9 HYPERGLYCEMIA, UNSPECIFIED 10/20/2018 CORTEZ CASTAÑEDA MICROELECTRONICS ENGINEER Ot Z79 .4 INTERNET MARKETING STRATEGIST (CURRENT) USE OF INSULIN 10/20/2018 CORTEZ CASTAÑEDA [...] E11.22 TYPE 2 DIABETES MELLITUS W DIABETIC CABLE TECHNICIAN 11/07/2018 BERNOT, PATRICK Ot N18.3 CHRONIC KIDNEY DISEASE, STAGE 3 (MODERAT 11/07/2018 BERNOT, PATRICK Ot R73.09 OTHER ABNORMAL GLUCOSE 11/07/2018 BERNOT, PATRICK Ot Z88.2 ALLERGY STATUS TO SULFONAMIDES STATUS 11/08/2018 BERNOT, PATRICK Ot E11.9 TYPE 2 DIABETES MELLITUS WITHOUT COMPLIC 11/08/2018 BERNOT, PATRICK Ot N18.3 CHRONIC KIDNEY DISEASE, STAGE 3 (MODERAT 11/08/2018 BERNOT, PTARICK Ot R73.09 OTHER ABNORMAL GLUCOSE 11/08/2018 BERNOT, [...] E11.22 TYPE 2 DIABETES MELLITUS W DIABETIC CABLE TECHNICIAN 11/10/2018 BERNOT, PATRICK Ot N18.3 CHRONIC KIDNEY DISEASE, STAGE 3 (MODERAT 11/10/2018 BERNOT, PATRICK Ot R73.09 OTHER ABNORMAL GLUCOSE 11/10/2018 BERNOT, PATRICK Ot Z88.2 ALLERGY STATUS TO SULFONAMIDES STATUS 11/11/2018 KENNY CENTENO APRN Ot E11.22 TYPE 2 DIABETES MELLITUS W DIABETIC CABLE TECHNICIAN 11/11/2018 KENNY CENTENO APRN Ot E78.5 HYPERLIPIDEMIA, [...] E11.22 TYPE 2 DIABETES MELLITUS W DIABETIC CABLE TECHNICIAN 12/17/2018 KENNY CENTENO APRN Ot E78.5 HYPERLIPIDEMIA, UNSPECIFIED 12/17/2018 KENNY CENTENO APRN Ot I12.9 HYPERTENSIVE CHRONIC KIDNEY DISEASE W ST 12/17/2018 KENNY CENTENO APRN Ot N13.8 OTHER OBSTRUCTIVE AND REFLUX UROPATHY 12/17/2018 KENNY CENTENO APRN Ot N18.3 CHRONIC KIDNEY DISEASE, STAGE 3 (MODERAT 12/17/2018 KENNY CENTENO APRN Ot R33.9 RETENTION OF URINE, UNSPECIFIED 12/17/2018 KENNY CENTENO APRN Ot Z79.1 INTERNET MARKETING STRATEGIST (CURRENT) USE OF NON-STEROIDAL 10/10/2019 SANIA BRAR [...] Ot I25. 10 ATHSCL HEART DISEASE OF [place] CORONARY 10/13/2019 MARIO SULLIVAN MD Ot K21. 9 GASTRO-ESOPHAGEAL REFLUX DISEASE WITHOUT 10/13/2019 MARIO SULLIVAN MD Ot K80. 00 CALCULUS OF GALLBLADDER W ACUTE CHOLECYS 10/13/2019 MRAIO SULLIVAN MD Ot K92. 0 HEMATEMESIS 10/13/2019 [...] 2 TYPE 2 DIABETES MELLITUS W DIABETIC CABLE TECHNICIAN 10/14/2019 CRAFT DO, MARINA L Ot I12.9 [...] 10/14/2019 CRAFT DO, MARINA L Ot Z79.4 INTERNET MARKETING STRATEGIST (CURRENT) USE OF INSULIN 10/14/2019 CRAFT DO, MARINA L Ot Z79.8 2 PRISON (CURRENT) USE OF ASPIRIN 10/14/2019 CRAFT DO, MARINA L Ot Z82.4 9 FAMILY HX OF I[place]HE[place] HEART DIS AND OTH DI 10/14/2019 CRAFT DO, MARINA L Ot Z88.2 ALLERGY STATUS TO SULFONAMIDES STATUS 11/11/2019 GELLENDER DO, MUKUL Cho Ot E11.22 TYPE 2 DIABETES MELLITUS W DIABETIC CABLE TECHNICIAN 11/11/2019 GELLENDER DO, MUKUL Cho Ot E78.5 HYPERLIPIDEMIA, UNSPECIFIED 11/11/2019 GELLENDER DOMUKUL Ot F32.9 MAJOR DEPRESSIVE DISORDER, SINGLE EPISOD 11/11/2019 GELLENDER DO, MUKUL Cho Ot I12.9 HYPERTENSIVE CHRONIC KIDNEY DISEASE W ST 11/11/2019 GELLENDER DOMUKUL Ot I21.4 NON-ST ELEVATION (NSTEMI) MYOCARDIAL INF 11/11/2019 GELLENDER DO, MUKUL Cho Ot I25.10 ATHSCL HEART DISEASE OF [place] CORONARY 11/11/2019 GELLENDER DO, MUKUL Cho Ot N18.3 CHRONIC KIDNEY DISEASE, STAGE 3 (MODERAT 11/11/2019 GELLENDER DO, MUKUL Cho Ot N40.0 BENIGN PROSTATIC HYPERPLASIA WITHOUT LOW 11/11/2019 GELLENDER DO, MUKUL Cho Ot Z79.4 INTERNET MARKETING STRATEGIST (CURRENT) USE OF INSULIN 11/11/2019 GELLENDER DO, MUKUL Cho Ot Z79.82 PRISON (CURRENT) USE OF ASPIRIN 11/11/2019 GELLENDER DO, MUKUL Cho Ot Z79.899 OTHER INTERNET MARKETING STRATEGIST (CURRENT) DRUG THERAPY 11/11/2019 GELLENDER DO, MUKUL Cho Ot Z82.49 FAMILY HX OF ISCHE[place] HEART DIS AND OTH DI 11/11/2019 GELLENDER DO, MUKUL Cho Ot Z88.2 ALLERGY STATUS TO SULFONAMIDES STATUS 11/26/2019 GELLENDER DO, MUKUL Cho Ot E11.22 TYPE 2 DIABETES MELLITUS W DIABETIC CABLE TECHNICIAN 11/26/2019 GELLENDER DO, MUKUL Cho Ot E78.5 HYPERLIPIDEMIA, UNSPECIFIED 11/26/2019 GELLENDER DO, MUKUL Cho Ot F32.9 MAJOR DEPRESSIVE DISORDER, SINGLE EPISOD 11/26/2019 GELLENDER DO, MUKUL Cho Ot I12.9 HYPERTENSIVE CHRONIC KIDNEY DISEASE W ST 11/26/2019 GELLENDER DO, MUKUL Cho Ot I21.4 NON-ST ELEVATION (NSTEMI) MYOCARDIAL INF 11/26/2019 GELLENDER DO, MUKUL Cho Ot I25.10 ATHSCL HEART DISEASE OF [place] CORONARY 11/26/2019 GELLENDER DO, MUKUL Cho Ot N18.3 CHRONIC KIDNEY DISEASE, STAGE 3 (MODERAT 11/26/2019 GELLENDER DO, MUKUL Cho Ot N40.0 BENIGN PROSTATIC HYPERPLASIA WITHOUT LOW 11/26/2019 GELLENDER DO, MUKUL Cho Ot Z79.4 PRISON (CURRENT) USE OF INSULIN 11/26/2019 GELLENDER DO, MUKUL Cho Ot Z79.82 INTERNET MARKETING STRATEGIST (CURRENT) USE OF ASPIRIN 11/26/2019 GELLENDER DO, MUKUL Cho Ot Z79.899 OTHER INTERNET MARKETING STRATEGIST (CURRENT) DRUG THERAPY 11/26/2019 GELLENDER DO, MUKUL Cho Ot Z82.49 FAMILY HX OF [place]HE[place] HEART DIS AND OTH DI 11/26/2019 GELLENDER DO, MUKUL Cho Ot Z88.2 ALLERGY STATUS TO SULFONAMIDES STATUS 12/29/2019 GELLENDER DO, MUKUL Cho Ot E11.22 TYPE 2 DIABETES MELLITUS W DIABETIC CABLE TECHNICIAN 12/29/2019 GELLENDER DO, MUKUL Cho Ot E78.5 HYPERLIPIDEMIA, UNSPECIFIED 12/29/2019 GELLENDER DO, MUKUL Cho Ot F32.9 MAJOR DEPRESSIVE DISORDER, SINGLE EPISOD 12/29/2019 [facility], MUKUL Cho Ot I12.9 HYPERTENSIVE CHRONIC KIDNEY DISEASE W ST 12/29/2019 [facility], MUKUL Cho Ot I21.4 NON-ST ELEVATION (NSTEMI) MYOCARDIAL INF 12/29/2019 [facility], MUKUL Cho Ot I25.10 ATHSCL HEART DISEASE OF [place] CORONARY 12/29/2019 [facility], MUKUL Cho Ot N18.3 CHRONIC KIDNEY DISEASE, STAGE 3 (MODERAT 12/29/2019 [facility], MUKUL Cho Ot N40.0 BENIGN PROSTATIC HYPERPLASIA WITHOUT LOW 12/29/2019 [facility], MUKUL Cho Ot Z79.4 INTERNET MARKETING STRATEGIST (CURRENT) USE OF INSULIN 12/29/2019 [facility], MUKUL Cho Ot Z79.82 PRISON (CURRENT) USE OF ASPIRIN 12/29/2019 [facility], MUKUL Cho Ot Z79.899 OTHER INTERNET MARKETING STRATEGIST (CURRENT) DRUG THERAPY 12/29/2019 [facility], MUKUL Cho Ot Z82.49 FAMILY HX OF I[place]HE[place] HEART DIS AND OTH DI 12/29/2019 [facility], MUKUL Cho Ot Z88.2 ALLERGY STATUS TO SULFONAMIDES STATUS 02/18/2020 CORTEZ CASTAÑEDA APRN Ot E11.22 TYPE 2 DIABETES MELLITUS W DIABETIC CABLE TECHNICIAN 02/18/2020 CORTEZ CASTAÑEDA APRN Ot I12 .9 HYPERTENSIVE CHRONIC KIDNEY DISEASE W ST 02/18/2020 CORTEZ CASTAÑEDA APRN Ot 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 02/18/2020 CORTEZ CASTAÑEDA APRN Ot J18 .9 PNEUMONIA, UNSPECIFIED ORGANISM 02/18/2020 CORTEZ CASTAÑEDA APRN Ot N18 .3 CHRONIC KIDNEY DISEASE, STAGE 3 (MODERAT 02/18/2020 CORTEZ CASTAÑEDA APRN Ot R50 .9 FEVER, UNSPECIFIED 02/18/2020 CORTEZ CASTAÑEDA APRN Ot Z79 .4 INTERNET MARKETING STRATEGIST (CURRENT) USE OF INSULIN 02/18/2020 CORTEZ CASTAÑEDA APRN Ot Z82.49 FAMILY HX OF I[place]HE[place] HEART DIS AND OTH DI 02/18/2020 CORTEZ CASTAÑEDA APRN Ot Z88 .2 ALLERGY STATUS TO SULFONAMIDES STATUS 02/29/2020 NOREEN CORREA DO Ot E11.22 TYPE 2 DIABETES MELLITUS W DIABETIC CABLE TECHNICIAN 02/29/2020 MADELINE DO, NOREEN K Ot I12.9 HYPERTENSIVE CHRONIC KIDNEY DISEASE W ST 02/29/2020 MADELINE DO, NOREEN K Ot I25.2 OLD MYOCARDIAL INFARCTION 02/29/2020 MADELINE DO, NOREEN K Ot N18.3 CHRONIC KIDNEY DISEASE, STAGE 3 (MODERAT 02/29/2020 MADELINE DO, NOREEN K Ot R06.00 DYSPNEA, UNSPECIFIED 02/29/2020 MADELINE DO, NOREEN K Ot R50.9 FEVER, UNSPECIFIED 02/29/2020 MADELINE DO, NOREEN K Ot R79.89 OTHER SPECIFIED ABNORMAL FINDINGS OF BLO 02/29/2020 MADELINE DO, NOREEN K Ot Z20.828 CONTACT W AND EXPOSURE TO OTH VIRAL COMM 02/29/2020 MADELINE DO, NOREEN K Ot Z79.4 INTERNET MARKETING STRATEGIST (CURRENT) USE OF INSULIN 02/29/2020 MADELINE DO, NOREEN K Ot Z79.82 PRISON (CURRENT) USE OF ASPIRIN 02/29/2020 MADELINE DO, NOREEN K Ot Z82.49 FAMILY HX OF ISCHEM HEART DIS AND OTH DI 02/29/2020 MADELINE DO, NOREEN K Ot Z88.2 ALLERGY STATUS TO SULFONAMIDES STATUS 03/02/2020 MADELINE DO, NOREEN K Ot E11.22 TYPE 2 DIABETES MELLITUS W DIABETIC CABLE TECHNICIAN 03/02/2020 MADELINE DO, NOREEN K Ot I12.9 HYPERTENSIVE CHRONIC KIDNEY DISEASE W ST 03/02/2020 MADELINE DO, NOREEN K Ot I25.2 OLD MYOCARDIAL INFARCTION 03/02/2020 MADELINE DO, NOREEN K Ot N18.3 CHRONIC KIDNEY DISEASE, STAGE 3 (MODERAT 03/02/2020 MADELINE DO, NOREEN K Ot R06.00 DYSPNEA, UNSPECIFIED 03/02/2020 MADELINE DO, NOREEN K Ot R50.9 FEVER, UNSPECIFIED 03/02/2020 MADELINE DO, NOREEN K Ot R79.89 OTHER SPECIFIED ABNORMAL FINDINGS OF BLO 03/02/2020 MADELINE DO, NOREEN K Ot Z20.828 CONTACT W AND EXPOSURE TO OTH VIRAL COMM 03/02/2020 MADELINE DO, NOREEN K Ot Z79.4 PRISON (CURRENT) USE OF INSULIN 03/02/2020 MADELINE DO, NOREEN K Ot Z79.82 INTERNET MARKETING STRATEGIST (CURRENT) USE OF ASPIRIN 03/02/2020 NROEEN CORREA DO Ot Z82.49 FAMILY HX OF [place]HE[place] HEART DIS AND OTH DI 03/02/2020 NOREEN CORREA DO Ot Z88.2 ALLERGY STATUS TO SULFONAMIDES STATUS 03/02/2020 NOREEN CORREA DO Ot R06.02 SHORTNESS OF BREATH 03/16/2020 NOREEN CORREA DO Ot R06.02 SHORTNESS OF BREATH Procedures There is no data. Results Test [...] pa catracho - 10/10/19 07:05 WRISTBAND NUMBER [id number] NRG ABO+Rh group OP NRG Blood group [...] indirect bilirubin measurement (mass/v olume) 1.3 mg/dL NR Whole blood basic metabolic panel - 07/22 [...] bilirubin detection by test strip 2+ i creel selector=pos NEGATIVE Urine urobilinogen measurement by automated test [...] NRG Serum or plasma glucose measurement (mass/volume) 166 [...] INFLUENZA A AND B ANTIGENS BY IA NRG Complete blood count (CBC) with automate [...] protein measurement (mass/v olume) 0.87 mg/dL 0.00-0.50 2019 Coronavirus SARS-CoV-2 SO - 0 14:14 Coronavirus Ab [Units/volume] in Serum Negative Negative Complete blood count (CBC) with automate d white blood cell (WBC) differential - 02/29/20 13:10 Blood leukocytes automated count (number/volume) 9.0 10*3/uL 4.3-11.0 Blood erythrocytes automated count (number/volume) 5.49 10*6/uL 4.35-5.85 Venous blood hemoglobin measurement (mass/volume) 15.7 g/dL 13.3-17.7 Blood hematocrit (volume fraction) 48 % 40-54 Automated erythrocyte mean corpuscular volume 88 [ foz_us] 80-99 Automated erythrocyte mean corpuscular h emoglobin (mass per erythrocyte) 29 pg 25-34 Automated erythrocyte mean corpuscular h emoglobin concentration measurement (mass/volume) 33 g/dL 32-36 Automated erythrocyte distribution width ratio 13. 9 % 10.0- 14.5 Automated blood platelet count (count/volume) 271 10*3/uL 130-400 Automated blood platelet mean volume measurement 9.8 [foz_us] 7.4-10.4 Automated blood neutrophils/100 leukocytes 60 % 42-75 Automated blood lymphocytes/100 leukocytes 24 % 12-44 Blood monocytes/100 leukocytes 13 % 0-12 Automated blood eosinophils/100 leukocytes 3 % 0-10 Automated blood basophils/100 leukocytes 0 % 0-10 Blood neutrophils automated count (number/volume) 5.4 10*3 1.8-7.8 Blood lymphocytes automated count (number/volume) 2.1 10*3 1.0-4.0 Blood monocytes automated count (number/volume) 1. 2 10*3 0.0-1.0 Automated eosinophil count 0.3 10*3/uL 0 .0-0.3 Automated blood basophil count (count/volume) 0.0 10*3/uL 0.0-0.1 Blood lactic acid measurement (moles/vol ume) - 02/29/20 13:10 Blood lactic acid measurement (moles/volume) 1.21 mmol/L 0.50-2.00 PT panel in platelet poor plasma by coag ulation assay - 02/29/20 13:10 Prothrombin time (PT) in platelet poor plasma by coagu lation assay 11.2 s 12.2-14.7 INR in platelet poor plasma or blood by coagulation as say 0.8 0.8-1.4 Activated partial thromboplastin time (a PTT) in platelet poor plasma bycoagulation assay - 02/29/20 13:10 Activated partial thromboplastin time (a PTT) in platelet poor plasma bycoagulation assay 31 s 24-35 Fibrinogen measurement in platelet poor plasma by coagulation assay (mass/volume) - 02/29/20 13:10 Fibrinogen measurement in platelet poor plasma by coagulation assay (mass/volume) 570 mg/dL 221-496 Fibrin D-dimer FEU measurement in platel et poor plasma (mass/volume) - 02/29/20 13:10 Fibrin D-dimer FEU measurement in platelet poor plasma (mass/volume) 2.89 ug/mL 0.00-0.49 Erythrocyte sedimentation rate by lydia gren method - 02/29/20 13:10 Erythrocyte sedimentation rate by westergren method 12 mm 0- 30 Comprehensive metabolic panel - 02/29/20 13:10 Serum or plasma sodium measurement (moles/volume) 139 mmol/L 135-145 Serum or plasma potassium measurement (moles/volume) 4.5 mmol/L 3.6-5.0 Serum or plasma chloride measurement (moles/volume) 102 mmol/L 98-107 Carbon dioxide 26 mmol/L 21-32 Serum or plasma anion gap [...] plasma aspartate aminotransfera se measurement (enzymatic activity/volume) 23 U/L 5-34 Serum or plasma alanine aminotransferase measurement (enzymatic activity/volume) 15 U/L 0-55 Serum or plasma protein measurement (mass/volume) 8.0 g/dL 6.4-8.2 Serum or plasma albumin measurement (mass/volume) 3.7 g/dL 3.2-4.5 CALCIUM CORRECTED 9.2 mg/dL 8.5-10.1 Magnesium - 02/29/20 13:10 Magnesium 2.0 mg/dL 1.6-2.4 Serum ragweed IgE antibody assay - 02/28 13:10 Serum ragweed IgE antibody assay 181 U/L 125-220 PROCALCITONIN (PCT) - 02/29/20 13:10 PROCALCITONIN (PCT) 0.04 ng/mL <0.10 Influenza virus A and B antigen detectio n - 02/29/20 13:10 FLU RESULT NEGATIVE FOR INFLUENZA A AND B ANTIGENS BY IA NRG Serum or plasma lithium measurement (mol es/volume) - 02/29/20 13:10 BNP PT 60.8 pg/mL <100.0 Serum or plasma troponin i.cardiac measu rement (mass/volume) - 02/29/20 13:10 Serum or plasma troponin i.cardiac measurement (mass/v olume) < ng/mL <0.028 Serum or plasma C reactive protein measu rement (mass/volume) - 02/29/20 13:10 Serum or plasma C reactive protein measurement (mass/v olume) 0.40 mg/dL 0.00-0.50 Serum or plasma ferritin measurement (ma ss/volume) - 02/29/20 13:10 Serum or plasma ferritin measurement (mass/volume) 25.1 % 32.0-356.0 Bacterial blood culture - 02/29/20 13:10 Bacterial blood culture NG NRG Complete urinalysis with reflex to cultu re - 02/29/20 14:20 Urine color determination YELLOW NRG Urine clarity determination CLEAR NR G Urine pH measurement by test strip 6.0 5-9 Specific gravity of urine by test strip 1.010 1.016-1.022 Urine protein assay by test strip, semi-quantitative TRACE NEGATIVE Urine glucose detection by automated test strip NE GATIVE NEGATIVE Erythrocytes detection in urine sediment by light micr oscopy TRACE-I NEGATIVE Urine ketones detection by automated test strip NE GATIVE NEGATIVE Urine nitrite detection by test strip NEGATIVE NEGATIVE Urine total bilirubin detection by test strip NEGA TIVE NEGATIVE Urine urobilinogen measurement by automated test strip (mass/volume) 0.2 mg/dL < = 1.0 Urine leukocyte esterase detection by dipstick NEG ATIVE NEGATIVE Automated urine sediment erythrocyte cou nt by microscopy (number/high power field) [HPF] NRG Automated urine sediment leukocyte count by microscopy (number/high power field) RARE NRG Bacteria detection in urine sediment by light microsco py TRACE NRG Squamous epithelial cells detection in u rine sediment by light microscopy 0-2 NRG Crystals detection in urine sediment by light microsco py NONE NRG Casts detection in urine sediment by light microscopy NONE NRG Mucus detection in urine sediment by light microscopy NEGATIVE NRG Complete urinalysis with reflex to culture NO NRG Coronavirus SARS-CoV-2 SO 2018 - 0 14:20 Coronavirus Ab [Units/volume] in Serum Negative Negative ADENOVIRUS DETECTION BY PCR - 02/29/20 1 4:20 Adenovirus detection, CSF, PCR Not Detected Not Detected PARAINFLUENZA VIRUS 1,2,3 PCR - 02/29/20 14:20 Serum or plasma aripiprazole measurement (mass/volume) Not Detected Not Detected PARAINFLU 3 PCR Not Detected Not Detect ed Bacterial blood culture - 02/29/20 14:29 Bacterial blood culture NG NRG Encounters ACCT No. Visit Date/Time Discharge Status Pt. Type Provider Facility Loc./Unit Complaint [id number] 09/07/2019 13:47:33 09/07/2019 23:59:5 9 CLS Outpatient [id number] 03/01/2020 06:17:00 23:59:59 CLS [facility] CARD V Q SCAN (VENT PERF)7 [id number] 02/29/2020 12:31:00 17:16:00 DIS Emergency MADELINE NOREEN [facility] ER FEVER,SOA [id number] 02/18/2020 12:46:00 14:30:00 DIS Emergency CORTEZ CASTAÑEDA APRN [facility] ER FEVER;CHEST PAIN [id number] 11/09/2019 11:18:00 11:32:00 DIS Outpatient MUKUL HENNING DO [facility] CATH CHEST PAIN;HYPO GLYCEMIA [id number] 10/14/2019 08:26:00 10:17:00 DIS Emergency CRAFT MARINA MANUEL [facility] ER VOMITING [id number] 10/10/2019 08:50:00 15:34:00 DIS Inpatient NATE CAMPOS, MARIO Ayala [facility] ICU FALL AND GENERALIZED WE AKNESS [id number] 12/07/2018 00:15:00 23:59:59 CLS Preadmit JOHANNE CAMPOS, LUPE Vizcarra [facility] WELLNESS [id number] 11/06/2018 09:00:00 00:01:00 DIS Outpatient JOHANNE CAMPOS, LUPE Vizcarra [facility] WELLNESS [id number] 11/10/2018 08:39:00 23:59:59 CLS Outpatient KENNY CENTENO APRN [facility] RAD CHRONIC KIDNEY DISEASE STAGE III [id number] 11/08/2018 17:25:00 20:18:00 DIS Emergency BERNOT, PATRICK [facility] ER BLOOD SUGAR ISSUES [id number] 11/07/2018 19:08:00 21:37:00 DIS Emergency BERNOT, PATRICK [facility] ER BLOOD SUGARS TROUBLE [id number] 11/04/2018 12:16:00 14:20:00 DIS Emergency SHARON CROW MD [facility] ER BLOOD SUGAR PRO BLEMS [id number] 10/17/2018 13:19:00 15:36:00 DIS Emergency CORTEZ CASTAÑEDA APRN [facility] ER HIGH GLUCOSE [id number] 10/15/2018 14:44:00 23:59:59 CLS Emergency CORTEZ CASTAÑEDA APRN [facility] ER TOO MUCH INSULIN [id number] 10/01/2018 06:00:00 00:01:00 DIS Outpatient LUPE WHITING MD [facility] CR3 WELLNESS [id number] 08/09/2018 10:40:00 12:57:00 DIS Emergency PATRICK ALVAREZ [facility] ER GLUCOSE LEVEL LOW [id number] 08/03/2018 13:00:00 23:59:59 CLS Preadmit SANIA BRAR DO [facility] DSME TYPE 2 DIABETES [id number] 07/09/2018 13:44:00 00:01:00 DIS Outpatient SANIA BRAR DO [facility] DSME TYPE 2 DIABETES [id number] 02/26/2018 11:18:00 23:59:59 CLS Outpatient LUPE WHITING MD [facility] RAD SWELLING OF LOWER LEG [id number] 03/22/2020 21:24:[address] Emergency NOREEN CORREA DO [facility] ER LOW GLUCOSE:PT STATED 101
[2020-03-22 21:58] LABS: BASOPHILS % (AUTO) 0 % (0-10); EOSINOPHILS # (AUTO) 0.3 10^3/uL (0.0-0.3); EOSINOPHILS % (AUTO) 2 % (0-10); HEMATOCRIT 47 % (40-54); HEMOGLOBIN 15.1 G/DL (13.3-17.7); LYMPHOCYTES # (AUTO) 2.8 X 10^3 (1.0-4.0); LYMPHOCYTES % (AUTO) 27 % (12-44); MEAN CORPUSCULAR HEMOGLOBIN 28 PG (25-34); MEAN CORPUSCULAR HGB CONC 32 G/DL (32-36); MEAN CORPUSCULAR VOLUME 87 FL (80-99); MEAN PLATELET VOLUME 9.6 FL (7.4-10.4); MONOCYTES # (AUTO) 1.4 X 10^3 (0.0-1.0); MONOCYTES % (AUTO) 14 % (0-12); NEUTROPHILS # (AUTO) 5.8 X 10^3 (1.8-7.8); NEUTROPHILS % (AUTO) 56 % (42-75); PLATELET COUNT 285 10^3/uL (130-400); WHITE BLOOD COUNT 10.3 10^3/uL (4.3-11.0)
[2020-03-22 22:07] LABS: ALBUMIN 3.7 GM/DL (3.2-4.5); POTASSIUM 4.4 MMOL/L (3.6-5.0)
[2020-03-22 22:08] LABS: CALCIUM 8.7 MG/DL (8.5-10.1)
[2020-03-22 22:10] LABS: TOTAL PROTEIN 7.9 GM/DL (6.4-8.2)
[2020-03-22 22:11] LABS: BILIRUBIN,TOTAL 0.4 MG/DL (0.1-1.0)
[2020-03-22 22:13] LABS: CREATININE SERUM 1.72 MG/DL (0.60-1.30)
[2020-03-22 23:04] LABS: BILIRUBIN,URINE NEGATIVE (NEGATIVE); CLARITY,URINE SL CLOUDY; COLOR,URINE YELLOW; GLUCOSE, URINE (UA) NEGATIVE (NEGATIVE); KETONES,URINE NEGATIVE (NEGATIVE); LEUKOCYTE ESTERASE ,URINE NEGATIVE (NEGATIVE); NITRITE,URINE NEGATIVE (NEGATIVE); PROTEIN,URINE 2+ (NEGATIVE)
--- NOTE | 2020-03-22 23:27 | ED General ---
General Chief Complaint: Glucose Problems Stated Complaint: LOW GLUCOSE:PT STATED 101 Source of Information: Patient (VERY DIFFICULT/POOR HISTORIAN AND GIVES MUCH INCONSISTENT INFORMATION) History of Present Illness Date Seen by Provider: March 22, 2020 Time Seen by Provider: 21:35 Initial Comments PT ARRIVES VIA POV FROM HOME STATES HE HAS "LOW BLOOD SUGAR" --STATES BLOOD GLUCOSE WAS 101 AT HOME ACCUCHECK IS 112 ON ARRIVAL HERE PT STATES THAT HIS BLOOD SUGAR WAS 350 SOMETIME EARLIER TODAY--HE HAS NO IDEA WHAT TIME IT WAS WHEN HE HAD THAT READING STATES HE TOOK "20 UNITS OF NOVOLOG OVER 1 1/2 HOURS AND IT DIDN'T HELP" --THEN STATES HE TOOK "7 UNITS, THEN 6 UNITS, THEN 5 UNITS" --HAS NO IDEA WHAT TIME HE TOOK THOSE. HE STATES NO DR HAS INSTRUCTED HIM TO DO THIS, BUT HE FREQUENTLY "SELF MEDICATES" HE STATES HE ALSO TOOK HIS REGULAR DOSE OF LEVEMIR 25 UNITS TONIGHT, AGAIN HE HAS NO IDEA WHAT TIME HE TOOK THIS STATES "I COULDN'T GET MY GLUCOSE UNDER CONTROL--IT JUST KEPT GOING DOWN AND I COULDN'T STOP IT--IT'S BECAUSE I TOOK ALL THAT FAST ACTING AND IT WASN'T WORKING" STATES "I WAS EATING EVERYTHING I COULD GET MY HANDS ON TO GET IT BACK UP--I WANT IT TO BE OVER 150 OR 170 SO I CAN GO TO SLEEP AND NOT WORRY ABOUT IT GOING DOWN" STATES HE ATE "A COUPLE OF ICE CREAM BARS, "A COUPLE" OF CANS OF PINEAPPLE, AND 2 COOKIES" --STATES "I ALWAYS EAT PINEAPPLE AND IT ALWAYS RAISES IT BUT IT DIDN'T" PT RELATES THAT HE SELF MEDICATES WITH INSULIN-"IT ALWAYS GETS TOO HIGH" , AND THEN EATS ALOT OF SWEETS "TO BRING IT UP" HE AGAIN REPORTS THAT HE HAS NEVER BEEN INSTRUCTED BY ANYONE THAT HE SHOULD DO THIS OR HOW TO DO THIS--HE HAS JUST DONE IT ON HIS OWN FOR YEARS. PT LIVES ALONE AND MANAGES ALL OF HIS OWN MEDICATIONS PT STATES HE HAS NOT HAD ANY SYMPTOMS OF ANY KIND--STATES HE FEELS FINE HE DENIES ANY RECENT ILLNESS OR KNOWN SICK CONTACTS OR EXPOSURE TO CORONAVIRUS PCP: DR. HENNING--SAW HIM 2 DAYS AGO FOR ROUTINE FOLLOW UP EXAM. NO CHANGES IN ANY MEDICATIONS Allergies and Home Medications Allergies Coded Allergies: Sulfa (Sulfonamide Antibiotics) (Unverified Allergy, Unknown, 10/10/19) Home Medications Aspirin 81 Mg Tablet.dr, 81 MG PO DAILY, (Reported) Clonidine HCl 0.2 Mg Tablet, 0.2 MG PO HS, (Reported) Furosemide 40 Mg Tablet, 40 MG PO DAILY, (Reported) Insulin Detemir 100 Unit/1 Ml Insuln.pen, 32 UNITS SC DAILY, (Reported) Insulin Detemir 100 Unit/1 Ml Insuln.pen, 29 UNIT SQ HS, (Reported) Isosorbide Mononitrate 120 Mg Tab.er.24h, 120 MG PO DAILY, (Reported) Levofloxacin 250 Mg Tablet, 250 MG PO DAILY Prescribed by: CORTEZ CASTAÑEDA on 02/18/20 1408 Linagliptin 5 Mg Tablet, 5 MG PO DAILY, (Reported) Losartan Potassium 100 Mg Tablet, 100 MG PO DAILY, (Reported) Metoprolol Succinate 100 Mg Tab.er.24h, 100 MG PO DAILY, (Reported) Omeprazole 20 Mg Capsule.dr, 20 MG PO DAILY, (Reported) Sennosides/Docusate Sodium 1 Each Tablet, 2 TAB PO HS, (Reported) Sertraline HCl 25 Mg Tablet, 25 MG PO DAILY Prescribed by: JINA CHURCH on 11/11/19 0840 Tamsulosin HCl 0.4 Mg Cap, 0.4 MG PO DAILY, (Reported) Vit C/E/Zn/Coppr/Lutein/Zeaxan 1 Each Capsule, 1 CAP PO BID, (Reported) Patient Home Medication List Home Medication List Reviewed: Yes Review of Systems Review of Systems Constitutional: no symptoms reported; No chills, No diaphoresis, No dizziness, No fever EENTM: no symptoms reported Respiratory: no symptoms reported; No cough, No short of breath Cardiovascular: no symptoms reported; No chest pain, No palpitations Gastrointestinal: no symptoms reported; No abdominal pain, No diarrhea, No loss of appetite, No nausea Genitourinary: no symptoms reported; No dysuria, No frequency Musculoskeletal: no symptoms reported Skin: no symptoms reported Psychiatric/Neurological: No Symptoms Reported; Denies Headache Hematologic/Lymphatic: No Symptoms Reported Immunological/Allergic: no symptoms reported Past Hfhonuw-Kewwug-Ylrgqx Hx Past Med/Social Hx: Reviewed and Corrections made Patient Social History Alcohol Use: Denies Use Recreational Drug Use: No Smoking Status: Never a Smoker 2nd Hand Smoke Exposure: No Recent Foreign Travel: No Contact w/Someone Who Travel: No Recent Hopitalizations: Yes (October 10 ) Immunizations Up To Date Tetanus Booster (TDap): Less than 5yrs Date of Pneumonia Vaccine: Oct 10, 2013 Date of Influenza Vaccine: Aug 10, 2019 Seasonal Allergies Seasonal Allergies: No Past Medical History Surgeries: No Respiratory: Yes (Pneumonia patient states "when i was 1") Pneumonia Cardiac: Yes Heart Attack, Hypertension Neurological: No Genitourinary: Yes (Chronic kidney disease stage 3 ) Renal Failure Gastrointestinal: No Musculoskeletal: No Endocrine: Yes (SELF MEDICATES WITH HIS INSULIN) Diabetes, Insulin dep HEENT: No (patient wears glasses ) Loss of Vision: Denies Hearing Impairment: Denies Cancer: No Psychosocial: No Integumentary: No Blood Disorders: No Family Medical History Cardiovascular disease 19 FATHER Hypertension 19 FATHER CAD Over 55 Years Old, Hypertension Physical Exam Vital Signs Vital Signs - First Documented 03/22/20 03/23/20 21:33 00:22 Temp 36.8 Pulse 89 Resp 20 B/P (MAP) 140/76 (97) Pulse Ox 96 O2 Delivery Room Air Capillary Refill : Height, Weight, BMI Height: 5'7.00" Weight: 200lbs. oz. 90.873612ru; 36.00 BMI Method:Estimated General Appearance: No Apparent Distress, Obese, Other (PT IS DIRTY, AND CLOTHI NG IS COVERED WITH LITERALLY HUNDREDS OF BLOOD SPLATTERS--PT STATES WHEN HE STICKS HIS FINGER TO CHECK HIS SUGAR, HE JUST WIPES THE BLOOD OFF ON HIS CLOTHES) HEENT: PERRL/EOMI Neck: Normal Inspection Respiratory: Normal Breath Sounds, No Accessory Muscle Use, No Respiratory Distress Cardiovascular: Regular Rate, Rhythm, No Murmur Gastrointestinal: Non Tender, Soft Back: No CVA Tenderness Extremity: Normal Capillary Refill, Non Tender, No Calf Tenderness, Pedal Edema (1+ BILATERALLY) Neurologic/Psychiatric: Alert, Oriented x3, No Motor/Sensory Deficits, Normal 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/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, 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 Norm as Tested, Other (POOR HISTORIAN, SOME LIMITED MEMORY) Skin: Normal Color, Warm/Dry Progress/Results/Core Measures Suspected Sepsis SIRS Temperature: Pulse: Respiratory Rate: Laboratory Tests 03/22/20 21:45: White Blood Count 10.3 Blood Pressure / Mean: Laboratory Tests 03/22/20 21:45: Creatinine 1.72H, Platelet Count 285, Total Bilirubin 0.4 Results/Orders Lab Results Laboratory Tests Test 03/22/20 21:35 03/22/20 21:45 03/22/20 22:55 03/23/20 00:10 Range/Units Glucometer 112 H 189 H 70-110 MG/DL White Blood Count 10.3 4.3-11.0 10^3/uL Red Blood Count 5.33 4.35-5.85 10^6/uL Hemoglobin 15.1 13.3-17.7 G/DL Hematocrit 47 40-54 % Mean Corpuscular Volume 87 80-99 FL Mean Corpuscular Hemoglobin 28 25-34 PG Mean Corpuscular Hemoglobin Concent 32 32-36 G/DL Red Cell Distribution Width 14.0 10.0-14.5 % Platelet Count 285 130-400 10^3/uL Mean Platelet Volume 9.6 7.4-10.4 FL Neutrophils (%) (Auto) 56 42-75 % Lymphocytes (%) (Auto) 27 12-44 % Monocytes (%) (Auto) 14 H 0-12 % Eosinophils (%) (Auto) 2 0-10 % Basophils (%) (Auto) 0 0-10 % Neutrophils # (Auto) 5.8 1.8-7.8 X 10^3 Lymphocytes # (Auto) 2.8 1.0-4.0 X 10^3 Monocytes # (Auto) 1.4 H 0.0-1.0 X 10^3 Eosinophils # (Auto) 0.3 0.0-0.3 10^3/uL Basophils # (Auto) 0.0 0.0-0.1 10^3/uL Sodium Level 139 135-145 MMOL/L Potassium Level 4.4 3.6-5.0 MMOL/L Chloride Level 103 98-107 MMOL/L Carbon Dioxide Level 24 21-32 MMOL/L Anion Gap 12 5-14 MMOL/L Blood Urea Nitrogen 22 H 7-18 MG/DL Creatinine 1.72 H 0.60-1.30 MG/DL Estimat Glomerular Filtration Rate 38 BUN/Creatinine Ratio 13 Glucose Level 127 H 70-105 MG/DL Calcium Level 8.7 8.5-10.1 MG/DL Corrected Calcium 8.9 8.5-10.1 MG/DL Magnesium Level 2.0 1.6-2.4 MG/DL Total Bilirubin 0.4 0.1-1.0 MG/DL Aspartate Amino Transf (AST/SGOT) 21 5-34 U/L Alanine Aminotransferase (ALT/SGPT) 17 0-55 U/L Alkaline Phosphatase 89 40-136 U/L Total Protein 7.9 6.4-8.2 GM/DL Albumin 3.7 3.2-4.5 GM/DL Urine Color YELLOW Urine Clarity SL CLOUDY Urine pH 6.0 5-9 Urine Specific [place] 1.020 1.016-1.022 Urine Protein 2+ H NEGATIVE Urine Glucose (UA) NEGATIVE NEGATIVE Urine Ketones NEGATIVE NEGATIVE Urine Nitrite NEGATIVE NEGATIVE Urine Bilirubin NEGATIVE NEGATIVE Urine Urobilinogen 0.2 < = 1.0 MG/DL Urine Leukocyte Esterase NEGATIVE NEGATIVE Urine RBC (Auto) TRACE-I NEGATIVE Urine RBC 0-2 /HPF Urine WBC RARE /HPF Urine Squamous Epithelial Cells 0-2 /HPF Urine Crystals PRESENT H /LPF Urine Amorphous Sediment FEW RAUL URATES H /LPF Urine Bacteria NEGATIVE /HPF Urine Casts NONE /LPF Urine Mucus NEGATIVE /LPF Urine Culture Indicated NO My Orders Orders - NOREEN CORREA DO Accucheck Stat ONCE (03/22/20 21:36) Ed Iv/Invasive Line Start (03/22/20 21:36) Monitor-Rhythm Ecg Trace Only (03/22/20 21:36) Cbc With Automated Diff (03/22/20 21:36) Comprehensive Metabolic Panel (03/22/20 21:36) Magnesium (03/22/20 21:36) Ua Culture If Indicated (03/22/20 21:36) Straight Cath For Spec.-Adult (03/22/20 23:44) Accucheck Stat ONCE (03/23/20 00:03) Vital Signs/I&O Capillary Refill : Progress Note : Progress Note NO COMPLAINTS OF ANY KIND DURING ENTIRE ER STAY PT STATES SHORTLY AFTER ARRIVAL--" I SHOULD HAVE JUST STAYED HOME AND WAITED ANOTHER 30 MINUTES, BECAUSE NOW MY SUGAR'S 170" ACCUCHECK IS 189 AT DISMISSAL PT FEELS COMFORTABLE GOING HOME Departure Impression Primary Impression: IDDM (insulin dependent diabetes mellitus) Additional Impression: Chronic renal failure Disposition: 01 HOME, SELF-CARE Condition: Stable Departure-Patient Inst. Referrals: MUKUL HENNING DO (PCP/Family) Primary Care Physician Patient Instructions: Diabetes in Older Adults, How to Keep Track of Your Blood Sugar, Diabetes Type 2 (DC) Add. Discharge Instructions: CHECK YOUR BLOOD SUGAR 3 TIMES A DAY--FASTING IN THE MORNING AND BEFORE EACH MEAL--AND KEEP A DIARY FOLLOW A STRICT DIABETIC DIET TAKE YOUR MEDICATION EXACTLY YOUR DR HAS PRESCRIBED FOLLOW UP WITH YOUR DR THIS WEEK FOR FURTHER CARE All discharge instructions reviewed with patient and/or family. Voiced understanding. NOREEN CORREA DO March 22, 2020 23:27
[2020-03-23] LABS: RBC,URINE 0-2 /HPF; WBC,URINE RARE /HPF
[2020-03-23 00:01] LABS: AMORPHOUS SEDIMENT,UR FEW AMOR URATES /LPF; BACTERIA,URINE NEGATIVE /HPF; SQUAMOUS EPITHELIAL CELL,UR 0-2 /HPF
[2020-03-23 00:22] VITALS: BP 131/68
== END 2020-03-23 00:23 | disposition home or self-care (01) ==
LOC: EDUNIT# 21:23 → ER 21:24
DX: E11.22 Type 2 diabetes mellitus with diabetic chronic kidney disease (principal); I12.9 Hypertensive chronic kidney disease with stage 1 through stage 4 chronic kidney disease, or unspecified chronic kidney disease; N18.3 Chronic kidney disease, stage 3 (moderate); I25.2 Old myocardial infarction; Z79.4 Long term (current) use of insulin; Z88.2 Allergy status to sulfonamides; Z79.82 Long term (current) use of aspirin; Z82.49 Family history of ischemic heart disease and other diseases of the circulatory system
CPT/HCPCS: 36415; 51701; 80053; 81000; 82962; 83735; 85025; 93041

== ENCOUNTER → 2020-05-10 | Outpatient (CLI) | payer MEDICARE ==
--- NOTE | 2020-05-10 13:28 | Diagnostic Imaging Report ---
EXAMINATION: CHEST (PA AND LATERAL) CLINICAL INDICATION: 79-year-old male, shortness of breath. COMPARISON: February 29, 2020. FINDINGS: Heart size and mediastinal contours are unchanged. There is no identified pneumothorax. There is no large pleural effusion. There is no identified focal airspace consolidation. IMPRESSION: No identified acute cardiopulmonary abnormality. Dictated by: Dictated on workstation # [id number]
== END ==
LOC: RAD 12:36
PROVIDERS: ATTEND Family Medicine
DX: R06.02 Shortness of breath (principal)
CPT/HCPCS: 71046

== ENCOUNTER 2020-06-23 18:28 | Emergency (ER) | payer MEDICARE ==
[~2020-06-23] VITALS: Ht 180 cm; Wt 116.9 kg
[2020-06-23] MEDS ORDERED: NS IV 1000 ML 1,000 ML IV ONE (18:42)
[2020-06-23 18:55] LABS: BASOPHILS % (AUTO) 0 % (0-10); EOSINOPHILS # (AUTO) 0.2 10^3/uL (0.0-0.3); EOSINOPHILS % (AUTO) 2 % (0-10); HEMATOCRIT 46 % (40-54); HEMOGLOBIN 14.9 G/DL (13.3-17.7); LYMPHOCYTES # (AUTO) 2.2 X 10^3 (1.0-4.0); LYMPHOCYTES % (AUTO) 22 % (12-44); MEAN CORPUSCULAR HEMOGLOBIN 28 PG (25-34); MEAN CORPUSCULAR HGB CONC 32 G/DL (32-36); MEAN CORPUSCULAR VOLUME 87 FL (80-99); MONOCYTES # (AUTO) 1.2 X 10^3 (0.0-1.0); MONOCYTES % (AUTO) 11 % (0-12); NEUTROPHILS # (AUTO) 6.5 X 10^3 (1.8-7.8); NEUTROPHILS % (AUTO) 65 % (42-75); PLATELET COUNT 277 10^3/uL (130-400); RED CELL DISTRIBUTION WIDTH 14.3 % (10.0-14.5); WHITE BLOOD COUNT 10.1 10^3/uL (4.3-11.0)
--- NOTE | 2020-06-23 19:00 | NUR ---
pt unable to void at this time. urine specimen cup at bedside.
--- NOTE | 2020-06-23 19:15 | ED General ---
General Chief Complaint: Glucose Problems Stated Complaint: GLUCOSE Source of Information: Patient (LIMITED HISTORIAN), Old Records History of Present Illness Date Seen by Provider: Jun 23, 2020 Time Seen by Provider: 18:42 Initial Comments PT ARRIVES VIA POV FROM HOME STATES HIS BLOOD SUGAR "KEEPS GOING UP AND DOWN" " I CAN'T SEEM TO GET IT UNDER CONTROL" STATES HIS BLOOD GLUCOSE WAS OVER 300 WHEN HE WOKE UP FROM A NAP AT 1400 TODAY, SO HE TOOK 10 UNITS OF "FAST ACTING" INSULIN STATES HIS BLOOD SUGAR "STARTED DROPPING AND IT GOT DOWN LOW--DOWN TO THE 70'S", THEN STATES "I KEEP EATING THESE GLUCOSE TABLETS" STATES HE HAS HAD "10 TO 15" GLUCOSE TABLETS AT A TIME STATES THEN HIS BLOOD SUGAR GOES BACK UP HIGH AFTER HE EATS THE GLUCOSE TABLETS, SO THEN HE TAKES MORE INSULIN--STATES THAT HE FIRST TOOK 7 UNITS OF "FAST ACTING" INSULIN, AND THE SECOND TIME HE TOOK 10 UNITS--THIS IS A CONTINUOUS CYCLE OF TAKING GLUCOSE TABLETS, AND THEN INSULIN STATES HE TAKES LEVEMIR 25 UNITS TWICE A DAY--STATES HE TOOK A DOSE THIS MORNING, BUT HAS NOT TAKEN HIS EVENING DOSE PT UNABLE TO STATE WHAT TIMES HE TOOK INSULIN OR ATE THE GLUCOSE TABLETS PT STATES HE ATE OATMEAL THIS MORNING--STATES "THAT'S WHAT MADE IT GO UP IN THE FIRST PLACE" STATES HE ATE SAUSAGE AND CHEESE AROUND 1600 THIS IS A FREQUENT COMPLAINT FOR PT--PT WAS HERE 03/22/20 FOR THE EXACT SAME ISSUE PT LIVES ALONE AND MANAGES ALL OF HIS MEDICATIONS PT HAS "SELF MEDICATED" HIMSELF WITH INSULIN FOR YEARS, STATES HAS NEVER BEEN INSTRUCTED BY ANYONE ON PROPER USE OF INSULIN/SLIDING SCALE, ETC. PT HAS NO SYMPTOMS OF ANY KIND DENIES ANY RECENT ILLNESS OR KNOWN SICK CONTACTS PCP: DR. HENNING--STATES HE SAW HIM LAST WEEK FOR ROUTINE EXAM. DENIES ANY CHANGES IN MEDICATIONS Allergies and Home Medications Allergies Coded Allergies: Sulfa (Sulfonamide Antibiotics) (Unverified Allergy, Unknown, 10/10/19) Home Medications Aspirin 81 Mg Tablet., 81 MG PO DAILY, (Reported) Clonidine HCl 0.2 Mg Tablet, 0.2 MG PO HS, (Reported) Furosemide 40 Mg Tablet, 40 MG PO DAILY, (Reported) Insulin Detemir 100 Unit/1 Ml Insuln.pen, 32 UNITS SC DAILY, (Reported) Insulin Detemir 100 Unit/1 Ml Insuln.pen, 29 UNIT SQ HS, (Reported) Isosorbide Mononitrate 120 Mg Tab.er.24h, 120 MG PO DAILY, (Reported) Levofloxacin 250 Mg Tablet, 250 MG PO DAILY Prescribed by: CORTEZ CASTAÑEDA on 02/18/20 1408 Linagliptin 5 Mg Tablet, 5 MG PO DAILY, (Reported) Losartan Potassium 100 Mg Tablet, 100 MG PO DAILY, (Reported) Metoprolol Succinate 100 Mg Tab.er.24h, 100 MG PO DAILY, (Reported) Omeprazole 20 Mg Capsule.dr, 20 MG PO DAILY, (Reported) Sennosides/Docusate Sodium 1 Each Tablet, 2 TAB PO HS, (Reported) Sertraline HCl 25 Mg Tablet, 25 MG PO DAILY Prescribed by: JINA CHURCH on 11/11/19 0840 Tamsulosin HCl 0.4 Mg Cap, 0.4 MG PO DAILY, (Reported) Vit C/E/Zn/Coppr/Lutein/Zeaxan 1 Each Capsule, 1 CAP PO BID, (Reported) Patient Home Medication List Home Medication List Reviewed: Yes Review of Systems Review of Systems Constitutional: no symptoms reported Respiratory: no symptoms reported Cardiovascular: no symptoms reported Gastrointestinal: no symptoms reported Genitourinary: no symptoms reported Musculoskeletal: no symptoms reported Skin: no symptoms reported Psychiatric/Neurological: No Symptoms Reported Hematologic/Lymphatic: No Symptoms Reported Immunological/Allergic: no symptoms reported Past Ozjbozz-Jvuhrn-Hpndwa Hx Past Med/Social Hx: Reviewed and Corrections made Patient Social History Alcohol Use: Denies Use Recreational Drug Use: No Smoking Status: Former Smoker Former Smoker, Quit: Jun 22, 1968 2nd Hand Smoke Exposure: No Recent Foreign Travel: No Contact w/Someone Who Travel: No Recent Hopitalizations: No Physical Abuse: No Sexual Abuse: No Mistreated: No Fear: No Immunizations Up To Date Tetanus Booster (TDap): Less than 5yrs Date of Pneumonia Vaccine: Oct 10, 2013 Date of Influenza Vaccine: Aug 10, 2019 Seasonal Allergies Seasonal Allergies: No Past Medical History Surgeries: No Respiratory: Yes (Pneumonia patient states "when i was 1") Pneumonia Cardiac: Yes Heart Attack, Hypertension Neurological: Yes (PERIPHERAL NEUROPATHY) Neuropathy Genitourinary: Yes (Chronic kidney disease stage 3 ) Renal Failure Gastrointestinal: No Musculoskeletal: No Endocrine: Yes (SELF MEDICATES WITH HIS INSULIN) Diabetes, Insulin dep HEENT: No (patient wears glasses ) Loss of Vision: Denies Hearing Impairment: Denies Cancer: No Psychosocial: No Integumentary: No Blood Disorders: No Family Medical History Cardiovascular disease 19 FATHER Hypertension 19 FATHER CAD Over 55 Years Old, Hypertension Physical Exam Vital Signs Vital Signs - First Documented 06/23/20 06/23/20 18:42 20:43 Temp 36.9 Pulse 89 Resp 18 B/P (MAP) 165/91 (115) Pulse Ox 95 O2 Delivery Room Air Capillary Refill : Height, Weight, BMI Height: 5'7.00" Weight: 200lbs. oz. 90.349208yw; 36.00 BMI Method:Estimated General Appearance: No Apparent Distress, WD/WN, Obese, Other (SHIRT AND PANTS COVERED WITH SMEARS OF BLOOD, FROM WHERE HE HAS WIPED THE BLOOD OFF HIS FINGERS AFTER DOING FINGERSTICKS. PT IS DIRTY. 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 Norm as Tested Skin: Normal Color, Warm/Dry Progress/Results/Core Measures Suspected Sepsis SIRS Temperature: Pulse: Respiratory Rate: Laboratory Tests 06/23/20 18:42: White Blood Count 10.1 Blood Pressure / Mean: Laboratory Tests 06/23/20 18:42: Creatinine 1.98H, Platelet Count 277, Total Bilirubin 0.6 Results/Orders Lab Results Laboratory Tests Test 06/23/20 18:42 Range/Units White Blood Count 10.1 4.3-11.0 10^3/uL Red Blood Count 5.34 4.35-5.85 10^6/uL Hemoglobin 14.9 13.3-17.7 G/DL Hematocrit 46 40-54 % Mean Corpuscular Volume 87 80-99 FL Mean Corpuscular Hemoglobin 28 25-34 PG Mean Corpuscular Hemoglobin Concent 32 32-36 G/DL Red Cell Distribution Width 14.3 10.0-14.5 % Platelet Count 277 130-400 10^3/uL Mean Platelet Volume 10.0 7.4-10.4 FL Neutrophils (%) (Auto) 65 42-75 % Lymphocytes (%) (Auto) 22 12-44 % Monocytes (%) (Auto) 11 0-12 % Eosinophils (%) (Auto) 2 0-10 % Basophils (%) (Auto) 0 0-10 % Neutrophils # (Auto) 6.5 1.8-7.8 X 10^3 Lymphocytes # (Auto) 2.2 1.0-4.0 X 10^3 Monocytes # (Auto) 1.2 H 0.0-1.0 X 10^3 Eosinophils # (Auto) 0.2 0.0-0.3 10^3/uL Basophils # (Auto) 0.0 0.0-0.1 10^3/uL Sodium Level 136 135-145 MMOL/L Potassium Level 4.1 3.6-5.0 MMOL/L Chloride Level 103 98-107 MMOL/L Carbon Dioxide Level 25 21-32 MMOL/L Anion Gap 8 5-14 MMOL/L Blood Urea Nitrogen 24 H 7-18 MG/DL Creatinine 1.98 H 0.60-1.30 MG/DL Estimat Glomerular Filtration Rate 33 BUN/Creatinine Ratio 12 Glucose Level 248 H 70-105 MG/DL Calcium Level 8.6 8.5-10.1 MG/DL Corrected Calcium 8.9 8.5-10.1 MG/DL Magnesium Level 1.9 1.6-2.4 MG/DL Total Bilirubin 0.6 0.1-1.0 MG/DL Aspartate Amino Transf (AST/SGOT) 42 H 5-34 U/L Alanine Aminotransferase (ALT/SGPT) 45 0-55 U/L Alkaline Phosphatase 111 40-136 U/L Total Protein 8.0 6.4-8.2 GM/DL Albumin 3.6 3.2-4.5 GM/DL Amylase Level 40 25-125 U/L Lipase 25 8-78 U/L My Orders Orders - NOREEN CORREA DO Ed Iv/Invasive Line Start (06/23/20 18:42) Monitor-Rhythm Ecg Trace Only (06/23/20 18:42) Amylase (06/23/20 18:42) Cbc With Automated Diff (06/23/20 18:42) Comprehensive Metabolic Panel (06/23/20 18:42) Lipase (06/23/20 18:42) Magnesium (06/23/20 18:42) Ua Culture If Indicated (06/23/20 18:42) Accucheck Stat ONCE (06/23/20 18:42) Ed Iv/Invasive Line Start (06/23/20 18:42) Ns Iv 1000 Ml (Sodium Chloride 0.9%) (06/23/20 18:42) Accucheck Stat ONCE (06/23/20 20:07) Medications Given in ED Current Medications Medications Dose Ordered Sig/Laya Route Start Time Stop Time Status Last Admin Dose Admin Sodium Chloride 1,000 ml @ 0 mls/hr Q0M ONCE IV 06/23/20 18:42 06/23/20 18:43 DC 06/23/20 19:00 0 MLS/HR Vital Signs/I&O 06/23/20 06/23/20 18:42 20:43 Temp 36.9 36.6 Pulse 89 84 Resp 18 18 B/P (MAP) 165/91 (115) 144/79 (115) Pulse Ox 95 95 O2 Delivery Room Air Capillary Refill : Point of Care Testing Finger Stick Blood Glucose: 222 Progress Note : Progress Note GIVEN IV FLUIDS--REPEAT ACCUCHECK 229 PT REFUSES TO ATTEMPT TO GIVE URINE SPECIMEN DISCUSSED AT LENGTH WITH PT, ABOUT INCREASING HIS PROTEIN, EATING REGULARLY, AVOIDING TAKING LARGE DOSES OF GLUCOSE TABLETS--PT CONTINUES TO ARGUE THAT "THAT'S THE ONLY THING THAT WILL BRING MY SUGAR UP" "AND THEN I HAVE TO TAKE INSULIN" AND ADVISED HIM OF IMPORTANCE OF FOLLOWING UP WITH HIS PCP ( PT STATES HE ALSO SEES A DR. BRAR IN [place] FOR BLOOD SUGAR) AND TO FOLLOW THEIR INSTRUCTIONS REGARDING DOSING OF "FAST ACTING" INSULIN. Departure Impression Primary Impression: IDDM (insulin dependent diabetes mellitus) Disposition: 01 HOME, SELF-CARE Condition: Stable Departure-Patient Inst. Referrals: MUKUL HENNING DO (PCP/Family) Primary Care Physician Patient Instructions: Diabetes Diet , Diabetes Type 2 (DC), Diabetes in Older Adults, Diabetic Meal Planning Add. Discharge Instructions: CONTINUE YOUR LEVEMIR PRESCRIBED FOLLOW A STRICT DIABETIC DIET CHECK YOUR BLOOD SUGAR 4 TIMES A DAY--FASTING AND BEFORE EACH MEAL AND AT BEDTIM E TAKE YOUR INSULIN EXACTLY PRESCRIBED BY YOUR DR FOLLOW UP WITH DR. HENNING NEXT WEEK FOR FURTHER CARE All discharge instructions reviewed with patient and/or family. Voiced understanding. NOREEN CORREA DO Jun 23, 2020 19:15
[2020-06-23 19:21] LABS: ALBUMIN 3.6 GM/DL (3.2-4.5); BILIRUBIN,TOTAL 0.6 MG/DL (0.1-1.0); CALCIUM 8.6 MG/DL (8.5-10.1); CREATININE SERUM 1.98 MG/DL (0.60-1.30); MAGNESIUM 1.9 MG/DL (1.6-2.4); POTASSIUM 4.1 MMOL/L (3.6-5.0)
[2020-06-23 20:43] VITALS: BP 144/79
== END 2020-06-23 20:45 | disposition home or self-care (01) ==
LOC: EDUNIT# 18:28 → ER 18:30
DX: E11.22 Type 2 diabetes mellitus with diabetic chronic kidney disease (principal); I12.9 Hypertensive chronic kidney disease with stage 1 through stage 4 chronic kidney disease, or unspecified chronic kidney disease; N18.3 Chronic kidney disease, stage 3 (moderate); E11.42 Type 2 diabetes mellitus with diabetic polyneuropathy; I25.2 Old myocardial infarction; Z79.4 Long term (current) use of insulin; Z88.2 Allergy status to sulfonamides; Z79.82 Long term (current) use of aspirin; Z87.891 Personal history of nicotine dependence; Z82.49 Family history of ischemic heart disease and other diseases of the circulatory system
CPT/HCPCS: 36415; 80053; 82150; 83690; 83735; 85025; 93041

== ENCOUNTER 2020-06-29 22:03 | Emergency (ER) | payer MEDICARE ==
[~2020-06-29] VITALS: Ht 175 cm; Wt 115.0 kg
--- NOTE | 2020-06-29 22:46 | NUR ---
Pt reports that his blood sugar has been going up and down today; states that it went up to over 300 today so he took 4 units of his rapid acting insulin; then states it went down to 200 so he ate some food (he reported to ERP that he at icecream). Pt states that he has felt dizzy today. Pt reports that he can't get his glucose under control. This nurse asked if he is compliant with his medications and pt states "I try". This nurse asked if pt was compliant with his diabetic diet and pt again states "I try". Will continue to monitor.
[2020-06-29 22:49] LABS: BASOPHILS % (AUTO) 0 % (0-10); EOSINOPHILS # (AUTO) 0.2 10^3/uL (0.0-0.3); EOSINOPHILS % (AUTO) 2 % (0-10); HEMATOCRIT 43 % (40-54); HEMOGLOBIN 14.4 G/DL (13.3-17.7); LYMPHOCYTES # (AUTO) 2.2 X 10^3 (1.0-4.0); LYMPHOCYTES % (AUTO) 22 % (12-44); MEAN CORPUSCULAR HEMOGLOBIN 29 PG (25-34); MEAN CORPUSCULAR HGB CONC 33 G/DL (32-36); MEAN CORPUSCULAR VOLUME 86 FL (80-99); MEAN PLATELET VOLUME 10.7 FL (7.4-10.4); MONOCYTES # (AUTO) 1.1 X 10^3 (0.0-1.0); MONOCYTES % (AUTO) 11 % (0-12); NEUTROPHILS # (AUTO) 6.3 X 10^3 (1.8-7.8); NEUTROPHILS % (AUTO) 64 % (42-75); PLATELET COUNT 284 10^3/uL (130-400); RED CELL DISTRIBUTION WIDTH 14.7 % (10.0-14.5); WHITE BLOOD COUNT 9.8 10^3/uL (4.3-11.0)
[2020-06-29 23:00] LABS: ALBUMIN 3.4 GM/DL (3.2-4.5); POTASSIUM 4.7 MMOL/L (3.6-5.0)
[2020-06-29 23:02] LABS: CALCIUM 8.3 MG/DL (8.5-10.1)
[2020-06-29 23:03] LABS: TOTAL PROTEIN 7.7 GM/DL (6.4-8.2)
[2020-06-29 23:04] LABS: BILIRUBIN,TOTAL 0.3 MG/DL (0.1-1.0)
[2020-06-29 23:06] LABS: CREATININE SERUM 1.79 MG/DL (0.60-1.30)
[2020-06-29 23:09] LABS: MAGNESIUM 3.4 MG/DL (1.6-2.4)
--- NOTE | 2020-06-29 23:17 | NUR ---
Pt unable to urinate at this time; no needs expressed; call light within reach.
--- NOTE | 2020-06-29 23:29 | ED General ---
General Chief Complaint: Glucose Problems Stated Complaint: GLUCOSE ISSUES Nursing Triage Note: Pt here with c/o blood sugar problems today; states his FSBS has been up and down today. States he has also been feeling dizzy as well. Nursing Sepsis Screen: No Definite Risk Source of Information: Patient (LIMITED HISTORIAN), Old Records History of Present Illness Date Seen by Provider: Jun 30, 2020 Time Seen by Provider: 22:22 Initial Comments PT ARRIVES VIA POV FROM HOME PT STATES HE HAS "GLUCOSE PROBLEMS" PT HAS NO COMPLAINTS PT STATES AROUND 1500 OR 1600 TODAY, HE ATE [place]ONI + CHEESE, AND SAUSAGE AND CHEESE, AND REGULAR JELLO ( NOT SUGAR-FREE)--STATES RIGHT AFTER HE ATE, HIS BLOOD SUGAR WENT UP TO 300--STATES "I DIDN'T DO ANYTHING AND IT KEPT GOING DOWN AND DOWN AND DOWN TO 150 "AND IT WAS STILL GOING DOWN", SO THEN HE ATE SOME ICE CREAM BARS AND "IT WENT BACK UP TO THE 300'S" STATES HE THEN TOOK HIS LEVEMIR 25 UNITS AND 4 UNITS OF "FAST ACTING" INSULIN AT 2100 AND STATES "IT WAS REALLY COMING DOWN FAST" AND HE RUSHED HERE. STATES "THIS TIME IT FINALLY STOPPED AT 216" STATES "I DIDN'T KNOW IF I WAS GOING TO BE ABLE TO STOP IT OR NOT" PT SELF MEDICATES WITH HIS INSULIN AND HAS FOR MANY YEARS--AND DOES THIS YO-YO-ING OF EATING ALOT OF SUGAR/CARBS, AND THEN TAKING INSULIN, THEN EATING ALOT OF SUGAR "SO IT DOESN'T GO TOO LOW" MULTIPLE VISITS FOR SAME, INCLUDING 06/23/20 FOR EXACT SAME ISSUES--HE OFTEN TAKES 10-15 GLUCOSE TABLETS AT A TIME, SEVERAL TIMES A DAY BECAUSE HE THINKS HIS SUGAR IS GETTING TOO LOW SEE OLD CHARTS FOR DETAILS PT HAS NOT SEEN DR. HENNING, HIS PCP IN OVER 2 WEEKS PT HAS RECENTLY BEEN REFERRED TO AN FILAMENT CUTTER, DR. BRAR, BUT HE HAS NOT SEEN HER IN OVER A MONTH PT LIVES ALONE AND MANAGES ALL OF HIS MEDICATIONS PCP: DR. HENNING FILAMENT CUTTER: DR. BRAR Allergies and Home Medications Allergies Coded Allergies: Sulfa (Sulfonamide Antibiotics) (Unverified Allergy, Unknown, 10/10/19) Home Medications Aspirin 81 Mg Tablet., 81 MG PO DAILY, (Reported) Clonidine HCl 0.2 Mg Tablet, 0.2 MG PO HS, (Reported) Furosemide 40 Mg Tablet, 40 MG PO DAILY, (Reported) Insulin Detemir 100 Unit/1 Ml Insuln.pen, 32 UNITS SC DAILY, (Reported) Insulin Detemir 100 Unit/1 Ml Insuln.pen, 29 UNIT SQ HS, (Reported) Isosorbide Mononitrate 120 Mg Tab.er.24h, 120 MG PO DAILY, (Reported) Levofloxacin 250 Mg Tablet, 250 MG PO DAILY Prescribed by: CORTEZ CASTAÑEDA on 02/18/20 1408 Linagliptin 5 Mg Tablet, 5 MG PO DAILY, (Reported) Losartan Potassium 100 Mg Tablet, 100 MG PO DAILY, (Reported) Metoprolol Succinate 100 Mg Tab.er.24h, 100 MG PO DAILY, (Reported) Omeprazole 20 Mg Capsule.dr, 20 MG PO DAILY, (Reported) Sennosides/Docusate Sodium 1 Each Tablet, 2 TAB PO HS, (Reported) Sertraline HCl 25 Mg Tablet, 25 MG PO DAILY Prescribed by: JINA CHURCH on 11/11/19 0840 Tamsulosin HCl 0.4 Mg Cap, 0.4 MG PO DAILY, (Reported) Vit C/E/Zn/Coppr/Lutein/Zeaxan 1 Each Capsule, 1 CAP PO BID, (Reported) Patient Home Medication List Home Medication List Reviewed: Yes Review of Systems Review of Systems Constitutional: no symptoms reported Respiratory: no symptoms reported Cardiovascular: no symptoms reported Gastrointestinal: no symptoms reported Genitourinary: no symptoms reported Musculoskeletal: no symptoms reported Skin: no symptoms reported Psychiatric/Neurological: No Symptoms Reported Hematologic/Lymphatic: No Symptoms Reported Past Kelaiky-Tszxqf-Xzyzpm Hx Past Med/Social Hx: Reviewed and Corrections made Patient Social History Alcohol Use: Denies Use Recreational Drug Use: No Smoking Status: Former Smoker Former Smoker, Quit: Jun 22, 1968 2nd Hand Smoke Exposure: No Recent Foreign Travel: No Contact w/Someone Who Travel: No Recent Infectious Disease Expo: No Recent Hopitalizations: No Immunizations Up To Date Tetanus Booster (TDap): Less than 5yrs Date of Pneumonia Vaccine: Oct 10, 2013 Date of Influenza Vaccine: Aug 10, 2019 Seasonal Allergies Seasonal Allergies: No Past Medical History Surgeries: No Respiratory: Yes (Pneumonia patient states "when i was 1") Pneumonia Cardiac: Yes Heart Attack, Hypertension Neurological: Yes (PERIPHERAL NEUROPATHY) Neuropathy Genitourinary: Yes (Chronic kidney disease stage 3 ) Renal Failure Gastrointestinal: No Musculoskeletal: No Endocrine: Yes (SELF MEDICATES WITH HIS INSULIN) Diabetes, Insulin dep HEENT: No (patient wears glasses ) Loss of Vision: Denies Hearing Impairment: Denies Cancer: No Psychosocial: No Integumentary: No Blood Disorders: No Family Medical History Cardiovascular disease 19 FATHER Hypertension 19 FATHER CAD Over 55 Years Old, Hypertension Physical Exam Vital Signs Vital Signs - First Documented 06/29/20 22:15 Temp 36.7 Pulse 83 Resp 18 B/P (MAP) 197/103 (134) Pulse Ox 97 O2 Delivery Room Air Capillary Refill : Less Than 3 Seconds Height, Weight, BMI Height: 5'7.00" Weight: 200lbs. oz. [id number]; 37.00 BMI Method:Estimated General Appearance: No Apparent Distress, WD/WN, Obese, Other (PT IS DIRTY AND CLOTHING COVERED WITH BLOOD SMEARS WHERE HE HAS WIPED HIS FINGERS ON HIS CLOTHING AFTER HE CHECKS HIS BLOOD SUGAR. ) Respiratory: Normal Breath Sounds, No Accessory Muscle Use Cardiovascular: Regular Rate, Rhythm Gastrointestinal: Non Tender, Soft Neurologic/Psychiatric: Alert, Oriented x3, Normal Mood/Affect Skin: Normal Color, Warm/Dry Progress/Results/Core Measures Suspected Sepsis Recent Fever Within 48 Hours: No Infection Criteria Present: None New/Unexplained Altered Menta: No Sepsis Screen: No Definite Risk SIRS Temperature: Pulse: 83 Respiratory Rate: 18 Laboratory Tests 06/29/20 22:45: White Blood Count 9.8 Blood Pressure 197 /103 Mean: 134 Laboratory Tests 06/29/20 22:45: Creatinine 1.79H, Platelet Count 284, Total Bilirubin 0.3 Results/Orders Lab Results Laboratory Tests Test 06/29/20 22:16 06/29/20 22:44 06/29/20 22:45 Range/Units Glucometer 199 H 197 H 70-110 MG/DL White Blood Count 9.8 4.3-11.0 10^3/uL Red Blood Count 5.06 4.35-5.85 10^6/uL Hemoglobin 14.4 13.3-17.7 G/DL Hematocrit 43 40-54 % Mean Corpuscular Volume 86 80-99 FL Mean Corpuscular Hemoglobin 29 25-34 PG Mean Corpuscular Hemoglobin Concent 33 32-36 G/DL Red Cell Distribution Width 14.7 H 10.0-14.5 % Platelet Count 284 130-400 10^3/uL Mean Platelet Volume 10.7 H 7.4-10.4 FL Neutrophils (%) (Auto) 64 42-75 % Lymphocytes (%) (Auto) 22 12-44 % Monocytes (%) (Auto) 11 0-12 % Eosinophils (%) (Auto) 2 0-10 % Basophils (%) (Auto) 0 0-10 % Neutrophils # (Auto) 6.3 1.8-7.8 X 10^3 Lymphocytes # (Auto) 2.2 1.0-4.0 X 10^3 Monocytes # (Auto) 1.1 H 0.0-1.0 X 10^3 Eosinophils # (Auto) 0.2 0.0-0.3 10^3/uL Basophils # (Auto) 0.0 0.0-0.1 10^3/uL Sodium Level 136 135-145 MMOL/L Potassium Level 4.7 3.6-5.0 MMOL/L Chloride Level 104 98-107 MMOL/L Carbon Dioxide Level 21 21-32 MMOL/L Anion Gap 11 5-14 MMOL/L Blood Urea Nitrogen 29 H 7-18 MG/DL Creatinine 1.79 H 0.60-1.30 MG/DL Estimat Glomerular Filtration Rate 37 BUN/Creatinine Ratio 16 Glucose Level 216 H 70-105 MG/DL Calcium Level 8.3 L 8.5-10.1 MG/DL Corrected Calcium 8.8 8.5-10.1 MG/DL Magnesium Level 3.4 H 1.6-2.4 MG/DL Total Bilirubin 0.3 0.1-1.0 MG/DL Aspartate Amino Transf (AST/SGOT) 23 5-34 U/L Alanine Aminotransferase (ALT/SGPT) 18 0-55 U/L Alkaline Phosphatase 96 40-136 U/L Total Protein 7.7 6.4-8.2 GM/DL Albumin 3.4 3.2-4.5 GM/DL Amylase Level 41 25-125 U/L Lipase 32 8-78 U/L My Orders Orders - NOREEN CORREA DO Accucheck Stat ONCE (06/29/20 22:23) Ed Iv/Invasive Line Start (06/29/20 22:23) Monitor-Rhythm Ecg Trace Only (06/29/20 22:23) Amylase (06/29/20 22:23) Cbc With Automated Diff (06/29/20 22:23) Comprehensive Metabolic Panel (06/29/20 22:23) Lipase (06/29/20 22:23) Magnesium (06/29/20 22:23) Ua Culture If Indicated (06/29/20 22:23) Vital Signs/I&O 06/29/20 06/29/20 22:15 23:51 Temp 36.7 Pulse 83 78 Resp 18 18 B/P (MAP) 197/103 (134) 179/103 Pulse Ox 97 99 O2 Delivery Room Air Room Air Capillary Refill : Less Than 3 Seconds Blood Pressure Mean: 134 Point of Care Testing Finger Stick Blood Glucose: 199 Blood Glucose Action Taken: reported to nurse Progress Note : Progress Note FINGERSTICKS 199 AND 197. SERUM GLUCOSE 219 NO TREATMENT OF ANY KIND DONE IN ER PT WILL NOT ATTEMPT TO GIVE UA NO SYMPTOMS OF ANY KIND IN ER Departure Impression Primary Impression: IDDM (insulin dependent diabetes mellitus) Disposition: 01 HOME, SELF-CARE Condition: Stable Departure-Patient Inst. Referrals: MUKUL HENNING DO (PCP/Family) Primary Care Physician Patient Instructions: Carbohydrate Counting Diet, Diabetes Type 2 (DC) Add. Discharge Instructions: FOLLOW UP WITH DR. HENNING AND DR. BRAR NEXT WEEK FOR FURTHER CARE All discharge instructions reviewed with patient and/or family. Voiced understanding. NOREEN CORREA DO Jun 29, 2020 23:29
--- NOTE | 2020-06-29 23:50 | NUR ---
Discussed a carb counting diet with patient and he reports he is going to start having his diabetic meals supplied by this hospital on Friday; we discussed the need to f/u with his PCP. Also discussed keeping a log of his b/p and discussing with his PCP. Pt reports he will do this.
[2020-06-29 23:51] VITALS: BP 179/103
== END 2020-06-29 23:47 | disposition home or self-care (01) ==
LOC: EDUNIT# 22:03 → ER 22:04
DX: E11.22 Type 2 diabetes mellitus with diabetic chronic kidney disease (principal); I12.9 Hypertensive chronic kidney disease with stage 1 through stage 4 chronic kidney disease, or unspecified chronic kidney disease; N18.3 Chronic kidney disease, stage 3 (moderate); I25.2 Old myocardial infarction; E11.42 Type 2 diabetes mellitus with diabetic polyneuropathy; Z82.49 Family history of ischemic heart disease and other diseases of the circulatory system; Z79.4 Long term (current) use of insulin; Z88.2 Allergy status to sulfonamides; Z79.82 Long term (current) use of aspirin; Z87.891 Personal history of nicotine dependence
CPT/HCPCS: 36415; 80053; 82150; 82962; 83690; 83735; 85025; 93041

== ENCOUNTER 2020-09-25 20:12 | Emergency (ER) | payer MEDICARE ==
[~2020-09-25 20:12] MED LIST changes: +ASPI-1238 PO; -ASPI-983 PO; +CLN.2T PO; -CLON0.2T PO
== END 2020-09-25 20:41 | disposition left against medical advice (07) ==
LOC: EDUNIT# 20:12 → ER 20:13
DX: I10 Essential (primary) hypertension (principal); Z20.828 Contact with and (suspected) exposure to other viral communicable diseases

== ENCOUNTER 2020-12-10 23:59 | Inpatient (IN) | payer MEDICARE ==
[~2020-12-10] VITALS: Ht 175 cm; Wt 116.1 kg
[2020-12-11 00:13] LABS: BASOPHILS # (AUTO) 0.1 10^3/uL (0.0-0.1); BASOPHILS % (AUTO) 0 % (0-10); EOSINOPHILS % (AUTO) 0 % (0-10); HEMATOCRIT 52 % (40-54); LYMPHOCYTES # (AUTO) 2.1 10^3/uL (1.0-4.0); LYMPHOCYTES % (AUTO) 10 % (12-44); MEAN CORPUSCULAR HEMOGLOBIN 29 pg (25-34); MEAN CORPUSCULAR HGB CONC 33 g/dL (32-36); MEAN CORPUSCULAR VOLUME 87 fL (80-99); MEAN PLATELET VOLUME 10.1 fL (9.0-12.2); MONOCYTES # (AUTO) 1.4 10^3/uL (0.0-1.0); MONOCYTES % (AUTO) 7 % (0-12); NEUTROPHILS # (AUTO) 16.7 10^3/uL (1.8-7.8); NEUTROPHILS % (AUTO) 82 % (42-75); PLATELET COUNT 229 10^3/uL (130-400); WHITE BLOOD COUNT 20.4 10^3/uL (4.3-11.0)
--- NOTE | 2020-12-11 00:14 | ED Abdominal Pain ---
General Chief Complaint: Abdominal/GI Problems Stated Complaint: ABD PAIN Nursing Triage Note: TO ED VIA [facility] TO ROOM 7 WITH C/O LLQ ABD PAIN SINCE FRIDAY. Sepsis Screen: No Definite Risk Source of Information: Patient, EMS, Old Records History of Present Illness Date Seen by Provider: Dec 11, 2020 Time Seen by Provider: 00:01 Initial Comments PT ARRIVES VIA EMS FROM HOME C/O SEVERE LLQ PAIN SINCE Friday12/09/20 C/O NAUSEA AND VOMITING --STATES "I CAN'T KEEP ANYTHING DOWN"--STATES HE VOMITS EVERY TIME HE EATS, AND IS NOT DRINKING MUCH FLUIDS NO DIARRHEA. HAD A VERY HARD BM TODAY C/O URINARY FREQUENCY--STATES "I GO ALOT ALL THE TIME" C/O "NO ENERGY" THOUGHT HE MIGHT HAVE HAD FEVER, BUT NEVER CHECKED HIS TEMPERATURE HAS NOT TAKEN ANYTHING FOR PAIN PT STATES "AND I WANT TO BE TESTED FOR COVID" PT HAS NO OTHER SYMPTOMS OF COVID, AND NO KNOWN EXPOSURE TO COVID. STATES THE ONLY TIME HE HAS LEFT THE HOUSE IS TO GO TO [facility]ORE, OR COME TO HOSPITAL BY AMBULANCE. PT LIVES ALONE PT WITH MULTITUDE OF VISITS FOR VARIOUS COMPLAINTS MANY TIMES ARE DIABETIC-RELATED COMPLAINTS--PT SELF-TREATS HIS DIABETES WITH INSULIN--"YO-YO-ING" WITH EATING ALOT OF SUGAR/CARBS AND THEN TAKES INSULIN, TH EN EATING ALOT OF SUGAR/CARBS "SO IT DOESN'T GO TOO LOW" , AND OFTEN WILL TAKE 10-15 GLUCOSE TABLETS AT A TIME , SEVERAL TIMES A DAY IF HE THINKS HIS BLOOD SUGAR IS GETTING TOO LOW. SEE OLD CHARTS FOR DETAILS. PCP: DR. HENNING Allergies and Home Medications Allergies Coded Allergies: Sulfa (Sulfonamide Antibiotics) (Unverified Allergy, Unknown, 10/10/19) Home Medications Fluticasone Propionate 16 Gm [place].susp, 1 SPRAY NSEACH DAILY, (Reported) Furosemide 40 Mg Tablet, 40 MG PO DAILY, (Reported) Insulin Detemir 100 Unit/1 Ml Insuln.pen, 25 UNIT SQ BID, (Reported) Isosorbide Mononitrate 120 Mg Tab.er.24h, 120 MG PO DAILY, (Reported) Losartan Potassium 100 Mg Tablet, 100 MG PO DAILY, (Reported) Metoprolol Succinate 100 Mg Tab.er.24h, 100 MG PO DAILY, (Reported) Omeprazole 40 Mg Capsule.dr, 40 MG PO DAILY, (Reported) TAKE 30 MINUTES AFTER BREAKFAST Tamsulosin HCl 0.4 Mg Cap, 0.4 MG PO DAILY, (Reported) Tramadol HCl 50 Mg Tablet, 50 MG PO TID, (Reported) Patient Home Medication List Home Medication List Reviewed: Yes Review of Systems Review of Systems Constitutional: see HPI, diaphoresis; No dizziness; fever; No malaise, No weakness EENTM: No Symptoms Reported; No Nose Congestion, No Throat Pain; Other (NO LOSS OF TASTE OR SMELL) Respiratory: No Symptoms Reported; Denies Cough, Denies Shortness of Air Cardiovascular: No Symptoms Reported; Denies Chest Pain, Denies Lightheadedness, Denies Palpitations Gastrointestinal: See HPI, Abdominal Pain, Constipated, Nausea, Vomiting Genitourinary: See HPI; Denies Burning, Denies Discharge; Frequency; Denies Flank Pain, Denies Hematuria Musculoskeletal: no symptoms reported Skin: no symptoms reported Psychiatric/Neurological: No Symptoms Reported Endocrine: See HPI, Increased Urine Hematologic/Lymphatic: No Symptoms Reported Past [place]-Ipqjki-Zffehe Hx Past Med/Social Hx: Reviewed and Corrections made Patient Social History Alcohol Use: Rarely Uses Smoking Status: Former Smoker Type Used: Cigarettes Former Smoker, Quit: Jun 22, 1968 2nd Hand Smoke Exposure: No Recent Infectious Disease Expo: No Recent Hopitalizations: No Immunizations Up To Date Tetanus Booster (TDap): Less than 5yrs Date of Pneumonia Vaccine: Oct 10, 2013 Date of Influenza Vaccine: Aug 10, 2019 Seasonal Allergies Seasonal Allergies: No Past Medical History Surgeries: Yes (CARDIAC CATH --NO INTERVENTION) Cardiac Respiratory: Yes (Pneumonia patient states "when i was 1") Pneumonia Cardiac: Yes (CARDIAC CATH-NO INTERVENTION;NSTEMI 10/2019;[facility] RIGHT LEG EDEMA- US NEGATIVE) Chronic Edema/Swelling, Coronary Artery Disease, Heart Attack, High Cholesterol, Hypertension Neurological: Yes (PERIPHERAL NEUROPATHY) Neuropathy Genitourinary: Yes (Chronic kidney disease stage 3 ; GFR TYPICALLY IN 30'S) Prostate Problems, Renal Failure Gastrointestinal: Yes (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) Gall Bladder Disease Musculoskeletal: No Endocrine: Yes (SELF MEDICATES WITH HIS INSULIN; OBESITY) Diabetes, Insulin dep HEENT: No (patient wears glasses ) Loss of Vision: Denies Hearing Impairment: Denies Cancer: No Psychosocial: No Integumentary: No Blood Disorders: No Family Medical History Cardiovascular disease 19 FATHER Hypertension 19 FATHER CAD Over 55 Years Old, Hypertension PAST SURGICAL HISTORY: -CARDIAC CATH 11/09/19--DIFFUSELY CALCIFIED CORONARY ARTERIES, SMALL VESSEL DISEASE, NO INTERVENTION - Physical Exam Vital Signs Vital Signs - First Documented 12/11/20 00:03 Temp 36.7 Pulse 109 Resp 16 B/P (MAP) 225/129 (161) O2 Delivery Room Air Capillary Refill : Less Than 3 Seconds Height/Weight/BMI Height: 5'7.00" Weight: 200lbs. oz. 90.887472rg; 37.00 BMI Method:Estimated General Appearance: obese, other (MILDLY DYSPNEIC ON TRANSFER FROM EMS COT TO ER COT. CLOTHING DIRTY, COVERED WITH BLOOD SMEARS WHERE HE CHECKS HIS BLOOD SUGAR AND WIFPES HIS FINGERS ON HIS CLOTHING. VERY UNKEMPT. DIAPHORETIC ON ARRIVAL. 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, no motor/sensory deficits, alert, normal mood/affect, oriented x 3 Skin: normal color, diaphoresis (DIAPHORETIC ON ARRIVAL, BUT SKIN IS WARM) Progress/Results/Core Measures Results/Orders Lab Results Laboratory Tests Test 12/11/20 00:05 12/11/20 00:12 12/11/20 00:14 12/11/20 02:15 Range/Units White Blood Count 20.4 H 4.3-11.0 10^3/uL Red Blood Count 5.96 H 4.30-5.52 10^6/uL Hemoglobin 17.0 13.3-17.7 g/dL Hematocrit 52 40-54 % Mean Corpuscular Volume 87 80-99 fL Mean Corpuscular Hemoglobin 29 25-34 pg Mean Corpuscular Hemoglobin Concent 33 32-36 g/dL Red Cell Distribution Width 13.4 10.0-14.5 % Platelet Count 229 130-400 10^3/uL Mean Platelet Volume 10.1 9.0-12.2 fL Immature Granulocyte % (Auto) 0 % Neutrophils (%) (Auto) 82 H 42-75 % Lymphocytes (%) (Auto) 10 L 12-44 % Monocytes (%) (Auto) 7 0-12 % Eosinophils (%) (Auto) 0 0-10 % Basophils (%) (Auto) 0 0-10 % Neutrophils # (Auto) 16.7 H 1.8-7.8 10^3/uL Lymphocytes # (Auto) 2.1 1.0-4.0 10^3/uL Monocytes # (Auto) 1.4 H 0.0-1.0 10^3/uL Eosinophils # (Auto) 0.0 0.0-0.3 10^3/uL Basophils # (Auto) 0.1 0.0-0.1 10^3/uL Immature Granulocyte # (Auto) 0.1 0.0-0.1 10^3/uL Neutrophils % (Manual) 81 % Lymphocytes % (Manual) 8 % Monocytes % (Manual) 4 % Band Neutrophils 7 % Anisocytosis SLIGHT Erythrocyte Sedimentation Rate 11 0-30 MM/HR Prothrombin Time 13.6 12.2-14.7 SEC INR Comment 1.0 0.8-1.4 Activated Partial Thromboplast Time 32 24-35 SEC D-Dimer 5.86 H 0.00-0.49 UG/ML Sodium Level 138 135-145 MMOL/L Potassium Level 4.1 3.6-5.0 MMOL/L Chloride Level 102 98-107 MMOL/L Carbon Dioxide Level 22 21-32 MMOL/L Anion Gap 14 5-14 MMOL/L Blood Urea Nitrogen 25 H 7-18 MG/DL Creatinine 1.83 H 0.60-1.30 MG/DL Estimat Glomerular Filtration Rate 36 BUN/Creatinine Ratio 14 Glucose Level 193 H 70-105 MG/DL Calcium Level 9.0 8.5-10.1 MG/DL Corrected Calcium 9.2 8.5-10.1 MG/DL Magnesium Level 1.8 1.6-2.4 MG/DL Total Bilirubin 1.0 0.1-1.0 MG/DL Aspartate Amino Transf (AST/SGOT) 35 H 5-34 U/L Alanine Aminotransferase (ALT/SGPT) 24 0-55 U/L Alkaline Phosphatase 87 40-136 U/L Lactate Dehydrogenase 242 H 125-220 U/L C-Reactive Protein High Sensitivity 11.81 H 0.00-0.50 MG/DL Total Protein 8.4 H 6.4-8.2 GM/DL Albumin 3.7 3.2-4.5 GM/DL Amylase Level 32 25-125 U/L Lipase 10 8-78 U/L Procalcitonin 27.23 H <0.10 NG/ML Coronavirus 2019 (BETSY) Positive H Negative Glucometer 192 H 70-110 MG/DL Urine Color YELLOW Urine Clarity CLOUDY Urine pH 7.0 5-9 Urine Specific [place] 1.020 1.016-1.022 Urine Protein 2+ H NEGATIVE Urine Glucose (UA) NEGATIVE NEGATIVE Urine Ketones 1+ H NEGATIVE Urine Nitrite NEGATIVE NEGATIVE Urine Bilirubin NEGATIVE NEGATIVE Urine Urobilinogen 1.0 < = 1.0 MG/DL Urine Leukocyte Esterase NEGATIVE NEGATIVE Urine RBC (Auto) 2+ H NEGATIVE Urine RBC 5-10 H /HPF Urine WBC 0-2 /HPF Urine Squamous Epithelial Cells 2-5 /HPF Urine Crystals NONE /LPF Urine Bacteria TRACE /HPF Urine Casts PRESENT /LPF Urine Hyaline Casts 0-2 H /LPF Urine Mucus NEGATIVE /LPF Urine Culture Indicated YES Micro Results Microbiology 12/11/20 Urine Culture - Preliminary, Resulted 12/11/20 Influenza Types A,B Antigen (RADHA) - Final, Complete My Orders Orders - NOREEN CORREA DO Ed Iv/Invasive Line Start (12/11/20 00:04) Ekg Tracing (12/11/20 00:04) Monitor-Rhythm Ecg Trace Only (12/11/20 00:04) Amylase (12/11/20 00:04) Cbc With Automated Diff (12/11/20 00:04) Comprehensive Metabolic Panel (12/11/20 00:04) Lipase (12/11/20 00:04) Magnesium (12/11/20 00:04) Protime With Inr (12/11/20 00:04) Partial Thromboplastin Time (12/11/20 00:04) Ua Culture If Indicated (12/11/20 00:04) Ed Iv/Invasive Line Start (12/11/20 00:04) Ns Iv 1000 Ml (Sodium Chloride 0.9%) (12/11/20 00:15) Ondansetron Injection (Zofran Injectio (12/11/20 00:15) Accucheck Stat ONCE (12/11/20 00:06) Erythrocyte Sedimentation Rate (12/11/20 00:10) Influenza A And B Antigens (12/11/20 00:10) Chest 1 View, Ap/Pa Only (12/11/20 00:10) Covid 19 Inhouse Test (12/11/20 00:10) Hydralazine Injection (Apresoline Inject (12/11/20 00:15) Hs C Reactive Protein (12/11/20 00:05) LDH (12/11/20 00:05) Procalcitonin (Pct) (12/11/20 00:05) Manual Differential (12/11/20 00:05) Blood Culture (12/11/20 00:46) Fibrin Degradation Products (12/11/20 00:05) Hydralazine Injection (Apresoline Inject (12/11/20 02:00) Urine Culture (12/11/20 02:15) Ct Chest/Abdomen/Pelvis Wo (12/11/20 02:45) Metoprolol Succinate (Xl) Tab (Toprol Xl (12/11/20 03:15) Metoprolol Succinate (Xl) Tab (Toprol Xl (12/11/20 03:07) Lactic Acid Analyzer (12/11/20 04:20) Ciprofloxacin Iv 400mg/200ml (Cipro Iv S (12/11/20 04:30) Metronidazole 500mg/100ml Ivpb (Flagyl 5 (12/11/20 04:30) Diltiazem Injection (Cardizem Injection) (12/11/20 04:30) Medications Given in ED Vital Signs/I&O 12/11/20 00:03 Temp 36.7 Pulse 109 Resp 16 B/P (MAP) 225/129 (161) O2 Delivery Room Air Blood Pressure Mean: 161 Progress Progress Note : Progress Note PLACED IN ISOLATION ROOM PPE WORN AT ALL TIMES COVID-19 TESTING PERFORMED GIVEN HYDRALAZINE FOR ELEVATED BLOOD PRESSURE, THEN TOPROL XL 100 MG, THEN CARDIZEM GIVEN ZOFRAN FOR NAUSEA--NO OTHER COMPLAINTS OF NAUSEA FOR REMAINDER OF ER STAY NO COMPLAINTS OF ABDOMINAL PAIN FOR REMAINDER OF ER STAY MUCH LATER PT REPORTS THAT HE DID NOT TAKE HIS MEDICATION TODAY OR YESTERDAY 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 IMMEDIATE RETURN OF > 600 ML URINE, WITH IMPROVEMENT IN SYMPTOMS NO FURTHER COMPLAINTS OF ABDOMINAL PAIN UNABLE TO DO CT CHEST ANGIOGRAM DUE TO CHRONIC RENAL FAILURE WITH GFR IN 30'S--UNABLE TO GIVE IV CONTRAST AT THIS TIME Initial ECG Impression Date: Dec 11, 2020 Initial ECG Impression Time: 00:10 Initial ECG Rate: 107 Initial ECG Rhythm: S.Tach Diagnostic Imaging Comments CXR--NO ACUTE PROCESS, PENDING RADIOLOGIST REVIEW CT CHEST/ABDOMEN/PELVIS--NO ACUTE PROCESS IN CHEST, FINDINGS CONSISTENT WITH ACUTE DIVERTICULITIS IN DESCENDING COLON--NO PERFORATION OR ABSCESS, PER [facility] VIA FAX AT [phone] Reviewed: Reviewed by Me Departure Communication (Admissions) [id number]--SPOKE WITH DR. SULLIVAN, HOSPITALIST, ACCEPTS PT FOR ADMIT Impression Primary Impression: COVID-19 virus infection Additional Impressions: Uncontrolled hypertension Sinus tachycardia Diverticulitis of intestine SEPSIS IDDM (insulin dependent diabetes mellitus) Chronic renal failure Non-compliance Urinary retention Disposition: ADMITTED INPATIENT Condition: Stable Admissions Decision to Admit Reason: Admit from ER (General) Decision to Admit/Date: Dec 11, 2020 Time/Decision to Admit Time: 04:25 Departure-Patient Inst. Referrals: MUKUL HENNING DO (PCP/Family) Primary Care Physician NOREEN CORREA DO Dec 11, 2020 00:14
[2020-12-11] MEDS ORDERED: ONDANSETRON 4 MG/2 ML (SDV) Z0FRAN IVP ONE (00:15)
[2020-12-11] MEDS ORDERED: NS IV 1000 ML 1,000 ML IV SCH (00:15)
[2020-12-11] MEDS ORDERED: hydrALAZINE (APESOLINE) 20 MG/ML VIAL IV ONE ×2 (00:15→02:00)
[2020-12-11 00:28] LABS: ALBUMIN 3.7 GM/DL (3.2-4.5); POTASSIUM 4.1 MMOL/L (3.6-5.0); PROTHROMBIN TIME PATIENT 13.6 SEC (12.2-14.7)
[2020-12-11 00:31] LABS: TOTAL PROTEIN 8.4 GM/DL (6.4-8.2)
[2020-12-11 00:34] LABS: CREATININE SERUM 1.83 MG/DL (0.60-1.30)
[2020-12-11 00:37] LABS: MAGNESIUM 1.8 MG/DL (1.6-2.4)
[2020-12-11 01:13] LABS: FIBRIN DEGRADATION PRODUCTS 5.86 UG/ML (0.00-0.49)
[2020-12-11 01:21] LABS: ANISOCYTOSIS SLIGHT; BAND NEUTROPHILS 7 %; LYMPHOCYTES % (MANUAL) 8 %; MONOCYTES % (MANUAL) 4 %; NEUTROPHILS % (MANUAL) 81 %
[2020-12-11 02:24] LABS: BILIRUBIN,URINE NEGATIVE (NEGATIVE); CLARITY,URINE CLOUDY; COLOR,URINE YELLOW; GLUCOSE, URINE (UA) NEGATIVE (NEGATIVE); KETONES,URINE 1+ (NEGATIVE); LEUKOCYTE ESTERASE ,URINE NEGATIVE (NEGATIVE); NITRITE,URINE NEGATIVE (NEGATIVE); PROTEIN,URINE 2+ (NEGATIVE)
[2020-12-11 02:43] LABS: BACTERIA,URINE TRACE /HPF; HYALINE CASTS, URINE 0-2 /LPF; WBC,URINE 0-2 /HPF
[2020-12-11] MEDS ORDERED: meTOproloL SUCCINATE 50 MG (TOPROL XL) TAB PO ONE (03:07)
[2020-12-11] MEDS ORDERED: meTOprolol SUCCINATE 100 MG (TOPROL XL) TAB PO ONE (03:15)
[2020-12-11] MEDS ORDERED: CIPROFLOXACIN IV 400MG/200ML 200 ML IV ONE (04:30)
[2020-12-11] MEDS ORDERED: metroNIDAZOLE 500MG/100ML IVPB 100 ML IV ONE (04:30)
[2020-12-11] MEDS ORDERED: PIPERACILLIN SODIUM/TAZOBACTAM 4.5 GM in NS (IVPB) 100 ML IV ONE (04:45)
--- NOTE | 2020-12-11 05:44 | Diagnostic Imaging Report ---
INDICATION: weakness, COMPARISON: 05/10/2020 FINDINGS: Single frontal view of the chest demonstrates normal heart size and pulmonary vascularity. The lungs are well aerated and clear. No large pleural effusion or pneumothorax is seen. The visualized osseous structures show no acute abnormalities. IMPRESSION: 1. No acute cardiopulmonary process. Dictated by: Dictated on workstation # [id number]
[2020-12-11] MEDS ORDERED: D5 1/2 NS W/KCL 20 MEQ/L 1,000 ML IV ONE (05:59)
[2020-12-11] MEDS: D5 1/2 NS W/KCL 20 MEQ/L 1,000 ML IV SCH ×3 (06:12→17:12)
[2020-12-11] MEDS ORDERED: ONDANSETRON 4 MG/2 ML (SDV) Z0FRAN IV PRN (06:15)
[2020-12-11] MEDS: ENOXAPARIN 40 MG/0.4 ML (LOVENOX) SYR SC SCH (06:26)
[2020-12-11] MEDS: fentaNYL INJECTION 100 MCG/2 ML AMP IV PRN ×4 (06:30→20:46)
[2020-12-11] MEDS: inSUlin ASPART (NovoLOG) 1 UNIT/0.01 ML (CHARGE PER UNIT) SC SCH ×4 (06:33→20:46)
[2020-12-11] MEDS ORDERED: ACETAMINOPHEN 325 MG TABLET ONE (06:39)
[2020-12-11] MEDS: ACETAMINOPHEN 325 MG TABLET PO PRN (06:46)
--- NOTE | 2020-12-11 06:53 | Diagnostic Imaging Report ---
PROCEDURE: CT chest, abdomen, and pelvis without contrast. TECHNIQUE: Multiple contiguous axial images were obtained through the chest, abdomen, and pelvis without the use of intravenous contrast. Auto Exposure Controls were utilized during the CT exam to meet ALARA standards for radiation dose reduction. DATE: December 11, 2020. COMPARISON: Chest radiographs May 10, 2020. CT abdomen and pelvis October 10, 2019. INDICATION: 80-year-old male, chest and abdominal pain. Nausea and vomiting. The patient is COVID positive. Dyspnea. FINDINGS: There are limitations for evaluation of the abdominal organs, neoplastic processes, abscess, and limited evaluation of the vasculature relating to the lack of intravenous contrast. There is a 4 mm pleurally based right upper lobe pulmonary nodule on axial image 18. There is a 4 mm calcified right lower lobe granuloma on axial image 33. There are predominantly linear opacities in the right lower lobe and right middle lobe and right upper lobe consistent with mild scarring and/or atelectasis. There is a 6 mm left lower lobe pulmonary nodule on axial image 27. There is a pleural-based 3 mm left upper lobe pulmonary nodule on axial image 17. There is no additional focal airspace consolidation. There is no pneumothorax. There is no pleural effusion. The central airways are patent. The heart is not enlarged. There is no pericardial effusion. There are coronary artery calcifications. There are calcified subcarinal and right hilar lymph nodes compatible with the sequela of prior granulomatous disease. There is no identified abnormally enlarged noncalcified mediastinal or axillary lymph node meeting CT size criteria for adenopathy. The liver is unremarkable in size and contour. There is cholelithiasis without evidence of acute cholecystitis. There is no biliary ductal dilation. The main pancreatic duct is not grossly dilated. Limited noncontrast evaluation of the pancreatic parenchyma is unremarkable. The spleen is normal in size. There is a left adrenal nodule on axial image 64 measuring up to 3.2 cm in size with internal attenuation of 15 Hounsfield units. This is stable since October 10, 2019 in size. There is mild atrophy of the kidneys bilaterally. There is no hydronephrosis. There is no identified renal or ureteral stone. The urinary bladder is collapsed with a Finch catheter. The urinary bladder is otherwise not well evaluated. There is diverticulosis. There is wall thickening and inflammatory stranding in an area of diverticular disease at the level of the proximal sigmoid colon most consistent with acute diverticulitis. The intestinal tract is not distended. The appendix is unremarkable. There is no free intraperitoneal air. There is no drainable fluid collection. There is no free pelvic fluid. There are atherosclerotic calcifications. There is no identified abnormally enlarged lymph node in the abdomen or pelvis meeting CT size criteria for adenopathy. There are multilevel degenerative changes of the spine. There is no identified acute bony abnormality. IMPRESSION: CT Chest, abdomen, and pelvis. 1. Findings compatible with acute diverticulitis at the level of the proximal sigmoid colon without evidence of perforation or abscess. 2. No acute cardiopulmonary abnormality. 3. Linear opacities in the right lower lobe, right middle lobe, and right upper lobe compatible with mild scarring and/or atelectasis. 4. Cholelithiasis without evidence of acute cholecystitis. Dictated by: Dictated on workstation # [id number]
[2020-12-11 08:27] VITALS: BP 167/91
--- NOTE | 2020-12-11 10:08 | History & Physical-Hospitalist ---
History of Present Illness HPI/Chief Complaint Pt is an 80yoCM with a PMH of IDDMII, HTN who presented to the ER due to adbominal pain, He states it started abruptly yesterday morning. He states that he started feeling poorly two days ago thought and was convinced that he had COVID as his sisters symptoms were similar. 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 He has severe nausea and vomiting. He denies diarrhea. He had a BM yesterday that was hard. He reports intermittent fevers as well. His pain is worse in his LLQ. This morning he reports that he is feeling better but still has some mild pain in LLQ. Source: patient Date Seen 12/11/20 Time Seen by a Provider: 10:03 Attending Physician Marry Son MD PCP Jeff Kelly DO Referring Physician Date of Admission Dec 11, 2020 at 04:25 Home Medications & Allergies Home Medications Reviewed patient Home Medication Reconciliation performed by pharmacy medication reconciliations field support technician and/or nursing. Patients Allergies have been reviewed. Allergies Allergies Coded Allergies Sulfa (Sulfonamide Antibiotics) (Unverified Allergy, Unknown, 10/10/19) Past Hsmhpvq-Jldkej-Iatlzg Hx Past Med/Social Hx: Reviewed and Corrections made Patient Social History Alcohol Use: Rarely Uses Recreational Drug Use: No Smoking Status: Never a Smoker Former Smoker, Quit: Jun 22, 1968 Type Used: Cigarettes 2nd Hand Smoke Exposure: No Recent Foreign Travel: No Contact w/other who traveled: No Recent Hopitalizations: No Recent Infectious Disease Expo: No Immunizations Up To Date Tetanus Booster (TDap): Less than 5yrs Date of Pneumonia Vaccine: Oct 10, 2013 Date of Influenza Vaccine: Sep 10, 2020 Seasonal Allergies Seasonal Allergies: No Past Medical History Surgeries: Cardiac Cardiac: Chronic Edema/Swelling, Coronary Artery Disease, Heart Attack, High Cholesterol, Hypertension Neurological: Neuropathy Genitourinary: Renal Failure Gastrointestinal: Gall Bladder Disease Endocrine: Diabetes, Insulin dep Loss of Vision: Denies Hearing Impairment: Denies History of Blood Disorders: No Family History Cardiovascular disease 19 FATHER Hypertension 19 FATHER CAD Over 55 Years Old, Hypertension PAST SURGICAL HISTORY: -CARDIAC CATH 11/09/19--DIFFUSELY CALCIFIED CORONARY ARTERIES, SMALL VESSEL DISEASE, NO INTERVENTION - Review of Systems Constitutional: fever, malaise EENTM: no symptoms reported Respiratory: No cough, No short of breath Cardiovascular: No chest pain, No edema, No palpitations Gastrointestinal: abdominal pain; No constipation, No diarrhea; nausea, vom iting, other (no loss of taste or smell) Genitourinary: frequency Musculoskeletal: no symptoms reported Skin: no symptoms reported Psychiatric/Neurological: No Symptoms Reported Physical Exam Physical Exam Vital Signs Vital Signs - First Documented 12/11/20 12/11/20 12/11/20 00:03 05:25 06:15 Temp 36.7 Pulse 109 Resp 16 B/P (MAP) 225/129 (161) Pulse Ox 94 O2 Delivery Room Air O2 Flow Rate 92.00 Capillary Refill : Less Than 3 Seconds Height, Weight, BMI Height: 5'7.00" Weight: 200lbs. oz. 90.965135az; 37.87 BMI Method:Estimated General Appearance: No Apparent Distress, WD/WN, Obese HEENT: PERRL/EOMI, Moist Mucous Membranes Neck: Normal Inspection, Supple Respiratory: Lungs Clear, No Accessory Muscle Use, No Respiratory Distress Cardiovascular: Regular Rate, Rhythm, No JVD, No Murmur Gastrointestinal: Normal Bowel Sounds, Soft; No Guarding, No Rebound; Tenderness (mild LLQ) Extremity: No Calf Tenderness, No Pedal Edema Neurologic/Psychiatric: Alert, Oriented x3, Normal Mood/Affect Skin: Normal Color, Warm/Dry Results Results/Procedures Labs Laboratory Tests 12/11/20 00:05 Patient resulted labs reviewed. Imaging: Reviewed Imaging Report Imaging [facility], [place] NAME: CHELAMILDRED Berry [facility] REC#: [id number] PT STATUS: ADM IN : 1940 PHYSICIAN: NOREEN CORREA DO ADMIT DATE: 12/11/20 Signed Date of Exam:12/11/20 CT CHEST/ABDOMEN/PELVIS WO PROCEDURE: CT chest, abdomen, and pelvis without contrast. TECHNIQUE: Multiple contiguous axial images were obtained through the chest, abdomen, and pelvis without the use of intravenous contrast. Auto Exposure Controls were utilized during the CT exam to meet ALARA standards for radiation dose reduction. DATE: December 11, 2020. COMPARISON: Chest radiographs May 10, 2020. CT abdomen and pelvis October 10, 2019. INDICATION: 80-year-old male, chest and abdominal pain. Nausea and vomiting. The patient is COVID positive. Dyspnea. FINDINGS: There are limitations for evaluation of the abdominal organs, neoplastic processes, abscess, and limited evaluation of the vasculature relating to the lack of intravenous contrast. There is a 4 mm pleurally based right upper lobe pulmonary nodule on axial image 18. There is a 4 mm calcified right lower lobe granuloma on axial image 33. There are predominantly linear opacities in the right lower lobe and right middle lobe and right upper lobe consistent with mild scarring and/or atelectasis. There is a 6 mm left lower lobe pulmonary nodule on axial image 27. There is a pleural-based 3 mm left upper lobe pulmonary nodule on axial image 17. There is no additional focal airspace consolidation. There is no pneumothorax. There is no pleural effusion. The central airways are patent. The heart is not enlarged. There is no pericardial effusion. There are coronary artery calcifications. There are calcified subcarinal and right hilar lymph nodes compatible with the sequela of prior granulomatous disease. There is no identified abnormally enlarged noncalcified mediastinal or axillary lymph node meeting CT size criteria for adenopathy. The liver is unremarkable in size and contour. There is cholelithiasis without evidence of acute cholecystitis. There is no biliary ductal dilation. The main pancreatic duct is not grossly dilated. Limited noncontrast evaluation of the pancreatic parenchyma is unremarkable. The spleen is normal in size. There is a left adrenal nodule on axial image 64 measuring up to 3.2 cm in size with internal attenuation of 15 Hounsfield units. This is stable since October 10, 2019 in size. There is mild atrophy of the kidneys bilaterally. There is no hydronephrosis. There is no identified renal or ureteral stone. The urinary bladder is collapsed with a Finch catheter. The urinary bladder is otherwise not well evaluated. There is diverticulosis. There is wall thickening and inflammatory stranding in an area of diverticular disease at the level of the proximal sigmoid colon most consistent with acute diverticulitis. The intestinal tract is not distended. The appendix is unremarkable. There is no free intraperitoneal air. There is no drainable fluid collection. There is no free pelvic fluid. There are atherosclerotic calcifications. There is no identified abnormally enlarged lymph node in the abdomen or pelvis meeting CT size criteria for adenopathy. There are multilevel degenerative changes of the spine. There is no identified acute bony abnormality. IMPRESSION: CT Chest, abdomen, and pelvis. 1. Findings compatible with acute diverticulitis at the level of the proximal sigmoid colon without evidence of perforation or abscess. 2. No acute cardiopulmonary abnormality. 3. Linear opacities in the right lower lobe, right middle lobe, and right upper lobe compatible with mild scarring and/or atelectasis. 4. Cholelithiasis without evidence of acute cholecystitis. Dictated by: Dictated on workstation # [id number] Dict: 12/11/20 0600 Trans: 12/11/20 075 CVB [id number] Interpreted by: PEGGY BRUCE MD Electronically signed by: PEGGY BRUCE MD 12/11/20 075 [facility], [place] NAME: MILDRED [facility] REC#: [id number] PT STATUS: ADM IN : 1940 PHYSICIAN: NOREEN CORREA DO ADMIT DATE: 12/11/20 Draft Date of Exam:12/11/20 CHEST 1 VIEW, AP/PA ONLY INDICATION: weakness, COMPARISON: 05/10/2020 FINDINGS: Single frontal view of the chest demonstrates normal heart size and pulmonary vascularity. The lungs are well aerated and clear. No large pleural effusion or pneumothorax is seen. The visualized osseous structures show no acute abnormalities. IMPRESSION: 1. No acute cardiopulmonary process. Dictated on workstation # [id number] Dict: 12/11/20 05 Trans: 12/11/20 0544 [id number] Interpreted by: CRYSTAL JIMENEZ MD Electronically signed by: Assessment/Plan Admission Diagnosis Sepsis from diverticulitis Admission Status: Inpatient Order (span 2 midnights) Reason for Inpatient Admission: see below Assessment and Plan Sepsis from acute diverticulitis, present on arrival WBC 20, tachycardia, Fever of 38 CT with Acute diverticulitis Continue on IV abx Continue pain regimen Surgery consulted, appreciate recs COVID19 Not hypoxic Reports symptoms started 2 days ago Discussed natural course of COVID No indication for remdesivir, decadron, or convalescent plasma since not hypoxic and only admitted for diverticulitis IDDMII SSI Resume home meds when available HTN Continue home meds when med rec available BPH Resume flomax Add Finasteride Finch in place currently, hopeful to DC soon DVT ppx: Lovenox Diagnosis/Problems Diagnosis/Problems (1) COVID-19 virus infection Status: Acute (2) Diverticulitis of intestine Status: Acute Qualifiers: Diverticulitis site: large intestine Diverticulitis bleeding: without bleeding Diverticulitis complication: without perforation or abscess Qualified Codes: K57.32 - Diverticulitis of large intestine without perforation or abscess without bleeding (3) Severe sepsis Status: Acute (4) Uncontrolled hypertension Status: Acute (5) IDDM (insulin dependent diabetes mellitus) Status: Acute (6) Chronic renal failure Status: Acute Qualifiers: Chronic kidney disease stage: stage 3 (moderate) Chronic kidney disease stage 3 subtype: stage 3b (GFR 30-44) Qualified Codes: N18.32 - Chronic kidney disease, stage 3b (7) Sinus tachycardia Status: Acute (8) Non-compliance Status: Acute (9) Cholelithiasis Status: Acute Qualifiers: Cholelithiasis location: gallbladder Cholecystitis presence: without cholecystitis Biliary obstruction: without biliary obstruction Qualified C odes: K80.20 - Calculus of gallbladder without cholecystitis without obstruction JJ ROBBINS MD Dec 11, 2020 10:08
[2020-12-11] MEDS: PIPERACILLIN/TAZO 4.5 GM/NS 100 ML IV SCH ×4 (11:26→18:37)
[2020-12-11 11:35] VITALS: BP 187/88
--- NOTE | 2020-12-11 15:24 | Consultation - Surgery ---
History of Present Illness History of Present Illness Patient Consulted On(mely/time) 12/11/20 15:19 Time Seen by Provider: 12:48 History of Present Illness Surgery asked to consult regarding Diverticulitis. HPI per IM: Pt is an 80yoCM with a PMH of IDDMII, HTN who presented to the ER due to adbominal pain, He states it started abruptly yesterday morning. He states that he started feeling poorly two days ago thought and was convinced that he had COVID as his sisters symptoms were similar. 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 He has severe nausea and vomiting. He denies diarrhea. He had a BM yesterday that was hard. He reports intermittent fevers as well. His pain is worse in his LLQ. This morning he reports that he is feeling better but still has some mild pain in LLQ. HPI per ED: PT ARRIVES VIA EMS FROM HOME, C/O SEVERE LLQ PAIN SINCE Friday12/09/20, C/O NAUSEA AND VOMITING --STATES "I CAN'T KEEP ANYTHING DOWN"--STATES HE VOMITS EVERY TIME HE EATS, AND IS NOT DRINKING MUCH FLUIDS NO DIARRHEA. HAD A VERY HARD BM TODAY, C/O URINARY FREQUENCY--STATES "I GO ALOT ALL THE TIME", C/O "NO ENERGY", THOUGHT HE MIGHT HAVE HAD FEVER, BUT NEVER CHECKED HIS TEMPERATURE, HAS NOT TAKEN ANYTHING FOR PAIN PT STATES "AND I WANT TO BE TESTED FOR COVID", PT HAS NO OTHER SYMPTOMS OF COVID, AND NO KNOWN EXPOSURE TO COVID. PT LIVES ALONE PT WITH MULTITUDE OF VISITS FOR VARIOUS COMPLAINTS MANY TIMES ARE DIABETIC-RELATED COMPLAINTS--PT SELF-TREATS HIS DIABETES WITH INSULIN--"YO-YO-ING" WITH EATING ALOT OF SUGAR/CARBS AND THEN TAKES INSULIN, THEN EATING ALOT OF SUGAR/CARBS "SO IT DOESN'T GO TOO LOW" , AND OFTEN WILL TAKE 10-15 GLUCOSE TABLETS AT A TIME , SEVERAL TIMES A DAY IF HE THINKS HIS BLOOD SUGAR IS GETTING TOO LOW. When I saw pt this afternoon he thought his pain was a little better, "definitely not worse". Mostly in LLQ but radiates over to the RLQ. States his pain was at least 8 out of 10 yesterday and now probably 6. He thinks he has been told he has diverticulitis before, but it has never been this bad. Allergies and Home Medications Allergies Coded Allergies: Sulfa (Sulfonamide Antibiotics) (Unverified Allergy, Unknown, 10/10/19) Home Medications Aspirin 81 Mg Tablet.dr, 81 MG PO DAILY, (Reported) Clonidine HCl 0.2 Mg Tablet, 0.2 MG PO HS, (Reported) Furosemide 40 Mg Tablet, 40 MG PO DAILY, (Reported) Insulin Detemir 100 Unit/1 Ml Insuln.pen, 32 UNITS SC DAILY, (Reported) Insulin Detemir 100 Unit/1 Ml Insuln.pen, 29 UNIT SQ HS, (Reported) Isosorbide Mononitrate 120 Mg Tab.er.24h, 120 MG PO DAILY, (Reported) Levofloxacin 250 Mg Tablet, 250 MG PO DAILY Prescribed by: CORTEZ CASTAÑEDA on 02/18/20 1408 Linagliptin 5 Mg Tablet, 5 MG PO DAILY, (Reported) Losartan Potassium 100 Mg Tablet, 100 MG PO DAILY, (Reported) Metoprolol Succinate 100 Mg Tab.er.24h, 100 MG PO DAILY, (Reported) Omeprazole 20 Mg Capsule.dr, 20 MG PO DAILY, (Reported) Sennosides/Docusate Sodium 1 Each Tablet, 2 TAB PO HS, (Reported) Sertraline HCl 25 Mg Tablet, 25 MG PO DAILY Prescribed by: JINA CHURCH on 11/11/19 0840 Tamsulosin HCl 0.4 Mg Cap, 0.4 MG PO DAILY, (Reported) Vit C/E/Zn/Coppr/Lutein/Zeaxan 1 Each Capsule, 1 CAP PO BID, (Reported) Patient Home Medication List Home Medication List Reviewed: Yes Past Pllnniw-Rddemz-Tmdvuw Hx Patient Social History Smoking Status: Never a Smoker Former Smoker, Quit: Jun 22, 1968 Type Used: Cigarettes 2nd Hand Smoke Exposure: No Recent Hopitalizations: No Have you traveled recently?: No Immunizations Up To Date Tetanus Booster (TDap): Less than 5yrs Date of Pneumonia Vaccine: Oct 10, 2013 Date of Influenza Vaccine: Sep 10, 2020 Seasonal Allergies Seasonal Allergies: No Surgeries History of Surgeries: Yes (CARDIAC CATH --NO INTERVENTION) Surgeries: Cardiac Respiratory History of Respiratory Disorde: Yes (Pneumonia patient states "when i was 1") Respiratory Disorders: Pneumonia Cardiovascular History of Cardiac Disorders: Yes (CARDIAC CATH-NO INTERVENTION;NSTEMI 10/2019;CHR RIGHT LEG EDEMA-US NEGATIVE) Cardiac Disorders: Chronic Edema/Swelling, Coronary Artery Disease, Heart Attack, High Cholesterol, Hypertension Neurological History of Neurological Disord: Yes (PERIPHERAL NEUROPATHY) Neurological Disorders: Neuropathy Genitourinary History of Genitourinary Disor: Yes (Chronic kidney disease stage 3 ; GFR TYPICALLY IN 30'S) Genitourinary Disorders: Renal Failure Gastrointestinal History of Gastrointestinal Di: Yes (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) Gastrointestinal Disorders: Gall Bladder Disease Musculoskeletal History of Musculoskeletal Dis: No Endocrine History of Endocrine Disorders: Yes (SELF MEDICATES WITH HIS INSULIN) Endocrine Disorders: Diabetes, Insulin dep HEENT History of HEENT Disorders: No (patient wears glasses ) Loss of Vision: Denies Hearing Impairment: Denies Cancer History of Cancer: No Psychosocial History of Psychiatric Problem: No Integumentary History of Skin or Integumenta: No Blood Transfusions History of Blood Disorders: No Family Medical History Significant Family History: CAD Over 55 Years Old, Hypertension Family Medial History: Cardiovascular disease 19 FATHER Hypertension 19 FATHER Review of Systems-General Constitutional: No chills, No diaphoresis; malaise EENTM: No blurred vision, No mouth pain, No mouth swelling, No epistaxis Respiratory: cough; No dyspnea on exertion, No hemoptysis; short of breath Cardiovascular: No chest pain; Hx of Intervention; No syncope Gastrointestinal: abdominal pain; No jaundice, No melena; nausea, vomiting Genitourinary: No dysuria, No frequency, No hematuria Musculoskeletal: joint pain, joint swelling, muscle stiffness Skin: No change in color, No change in hair/nails Psychiatric/Neurological: Denies Anxiety, Denies Depressed, Denies Seizure, Denies Tremors Other HEMATOLOGIC Pt denies any hx of abnormal bleeding or bruising. Physical Exam-General Problems Physical Exam Vital Signs Vital Signs - First Documented 12/11/20 12/11/20 12/11/20 00:03 05:25 06:15 Temp 36.7 Pulse 109 Resp 16 B/P (MAP) 225/129 (161) Pulse Ox 94 O2 Delivery Room Air O2 Flow Rate 92.00 Capillary Refill : Less Than 3 Seconds General Appearance: no apparent distress, obese Eyes: Bilateral Eye PERRL, Bilateral Eye EOMI HEENT: No scleral icterus (R), No scleral icterus (L); other (mucous membranes moist) Neck: non-tender, supple Respiratory: lungs clear, normal breath sounds, no respiratory distress, no accessory muscle use Cardiovascular: no murmur, tachycardia Gastrointestinal: soft, no organomegaly, no pulsatile mass, guarding (voluntary with palpation); No rebound; tenderness (LLQ greatest and some RLQ), hernia (small umbilical - incarcerated fat) Rectal: deferred Back: no CVA tenderness, no vertebral tenderness Extremities: non-tender, no calf tenderness, normal capillary refill, pedal edema Neurologic/Psychiatric: balance bridge inspector II-XII nml as tested, alert, normal mood/affect, oriented x 3 Skin: normal color, warm/dry Lymphatic: no adenopathy (neck, axilla or groin) Data Review Labs Laboratory Tests 12/11/20 00:05: White Blood Count 20.4H, Red Blood Count 5.96H, Hemoglobin 17.0, Hematocrit 52, Mean Corpuscular Volume 87, Mean Corpuscular Hemoglobin 29, Mean Corpuscular Hemoglobin Concent 33, Red Cell Distribution Width 13.4, Platelet Count 229, Mean Platelet Volume 10.1, Immature Granulocyte % (Auto) 0, Neutrophils (%) (Auto) 82H, Lymphocytes (%) (Auto) 10L, Monocytes (%) (Auto) 7, Eosinophils (%) (Auto) 0, Basophils (%) (Auto) 0, Neutrophils # (Auto) 16.7H, Lymphocytes # (Auto) 2.1, Monocytes # (Auto) 1.4H, Eosinophils # (Auto) 0.0, Basophils # (Auto) 0.1, Immature Granulocyte # (Auto) 0.1, Neutrophils % (Manual) 81, Lymphocytes % (Manual) 8, Monocytes % (Manual) 4, Band Neutrophils 7, Anisocytosis SLIGHT, Erythrocyte Sedimentation Rate 11, Prothrombin Time 13.6, INR Comment 1.0, Activated Partial Thromboplast Time 32, D-Dimer 5.86H, Sodium Level 138, Potassium Level 4.1, Chloride Level 102, Carbon Dioxide Level 22, Anion Gap 14, Blood Urea Nitrogen 25H, Creatinine 1.83H, Estimat Glomerular Filtration Rate 36, BUN/Creatinine Ratio 14, Glucose Level 193H, Calcium Level 9.0, Corrected Calcium 9.2, Magnesium Level 1.8, Total Bilirubin 1.0, Aspartate Amino Transf (AST/SGOT) 35H, Alanine Aminotransferase (ALT/SGPT) 24, Alkaline Phosphatase 87, Lactate Dehydrogenase 242H, C-Reactive Protein High Sensitivity 11.81H, Total Protein 8.4H, Albumin 3.7, Amylase Level 32, Lipase 10, Procalcit onin 27.23H 12/11/20 00:12: Coronavirus 2019 (BETSY) PositiveH 12/11/20 00:14: Glucometer 192H 12/11/20 02:15: Urine Color YELLOW, Urine Clarity CLOUDY, Urine pH 7.0, Urine Specific [place] 1.020, Urine Protein 2+H, Urine Glucose (UA) NEGATIVE, Urine Ketones 1+H, Urine Nitrite NEGATIVE, Urine Bilirubin NEGATIVE, Urine Urobilinogen 1.0, Urine Leukocyte Esterase NEGATIVE, Urine RBC (Auto) 2+H, Urine RBC 5-10H, Urine WBC 0-2, Urine Squamous Epithelial Cells 2-5, Urine Crystals NONE, Urine Bacteria TRACE, Urine Casts PRESENT, Urine Hyaline Casts 0-2H, Urine Mucus NEGATIVE, Urine Culture Indicated YES 12/11/20 05:02: Lactic Acid Level 2.41*H 12/11/20 06:28: Glucometer 258H 12/11/20 07:03: Lactic Acid Level 1.85 12/11/20 11:24: Glucometer 313H Microbiology 12/11/20 Influenza Types A,B Antigen (RADHA) - Final, Complete Radiology Date of Exam:12/11/20 CT CHEST/ABDOMEN/PELVIS WO PROCEDURE: CT chest, abdomen, and pelvis without contrast. TECHNIQUE: Multiple contiguous axial images were obtained through the chest, abdomen, and pelvis without the use of intravenous contrast. Auto Exposure Controls were utilized during the CT exam to meet ALARA standards for radiation dose reduction. DATE: December 11, 2020. COMPARISON: Chest radiographs May 10, 2020. CT abdomen and pelvis October 10, 2019. INDICATION: 80-year-old male, chest and abdominal pain. Nausea and vomiting. The patient is COVID positive. Dyspnea. FINDINGS: There are limitations for evaluation of the abdominal organs, neoplastic processes, abscess, and limited evaluation of the vasculature relating to the lack of intravenous contrast. There is a 4 mm pleurally based right upper lobe pulmonary nodule on axial image 18. There is a 4 mm calcified right lower lobe granuloma on axial image 33. There are predominantly linear opacities in the right lower lobe and right middle lobe and right upper lobe consistent with mild scarring and/or atelectasis. There is a 6 mm left lower lobe pulmonary nodule on axial image 27. There is a pleural-based 3 mm left upper lobe pulmonary nodule on axial image 17. There is no additional focal airspace consolidation. There is no pneumothorax. There is no pleural effusion. The central airways are patent. The heart is not enlarged. There is no pericardial effusion. There are coronary artery calcifications. There are calcified subcarinal and right hilar lymph nodes compatible with the sequela of prior granulomatous disease. There is no identified abnormally enlarged noncalcified mediastinal or axillary lymph node meeting CT size criteria for adenopathy. The liver is unremarkable in size and contour. There is cholelithiasis without evidence of acute cholecystitis. There is no biliary ductal dilation. The main pancreatic duct is not grossly dilated. Limited noncontrast evaluation of the pancreatic parenchyma is unremarkable. The spleen is normal in size. There is a left adrenal nodule on axial image 64 measuring up to 3.2 cm in size with internal attenuation of 15 Hounsfield units. This is stable since October 10, 2019 in size. There is mild atrophy of the kidneys bilaterally. There is no hydronephrosis. There is no identified renal or ureteral stone. The urinary bladder is collapsed with a Finch catheter. The urinary bladder is otherwise not well evaluated. There is diverticulosis. There is wall thickening and inflammatory stranding in an area of diverticular disease at the level of the proximal sigmoid colon most consistent with acute diverticulitis. The intestinal tract is not distended. The appendix is unremarkable. There is no free intraperitoneal air. There is no drainable fluid collection. There is no free pelvic fluid. There are atherosclerotic calcifications. There is no identified abnormally enlarged lymph node in the abdomen or pelvis meeting CT size criteria for adenopathy. There are multilevel degenerative changes of the spine. There is no identified acute bony abnormality. IMPRESSION: CT Chest, abdomen, and pelvis. 1. Findings compatible with acute diverticulitis at the level of the proximal sigmoid colon without evidence of perforation or abscess. 2. No acute cardiopulmonary abnormality. 3. Linear opacities in the right lower lobe, right middle lobe, and right upper lobe compatible with mild scarring and/or atelectasis. 4. Cholelithiasis without evidence of acute cholecystitis. Dictated by: Dictated on workstation # [id number] Dict: 12/11/20 0600 Trans: 12/11/20 0751 CVB [id number] Interpreted by: PEGGY BRUCE MD Electronically signed by: PEGGY BRUCE MD 12/11/20 0751 Assessment/Plan Assessment/Plan Assessment/Plan Acute Diverticulitis w/o perforation Cholelithiasis without cholecystitis Incarcerated Umbilical hernia Covid -19 HTN, DM I reviewed the CT films myself, no gross fluid or abscess surrounding the diverticulitis. He also has a small incarcerated umbilical hernia; however, si nce it is not bothering him he does not need to get it repaired. Pt also had an incidental finding of gallstones, but states he has never had RUQ pain or any symptoms of gallbladder disease. Plan is clear liquids - do not advance diet until his pain is improving or gone, continue IV ABX, pain control. Pt encouraged to ambulate and use IS. Will monitor labs and abdominal exam, no indication for surgical intervention at this time. I explained all of this to pt and all questions answered to his satisfaction. LALIT HAYES DO Dec 11, 2020 15:24
[2020-12-11] MEDS ORDERED: TRAM50TA3 PO (15:29)
[2020-12-11] MEDS ORDERED: OMEP40CA27 PO (15:29)
[2020-12-11] MEDS ORDERED: FLUT16SP22 NSEACH (15:29)
[2020-12-11 16:37] VITALS: BP 183/96
[2020-12-11] MEDS: TAMSULOSIN 0.4 MG (FLOMAX) CAP PO SCH (17:12)
[2020-12-11 20:10] VITALS: BP 187/81
[2020-12-12] VITALS (11 sets, daily range): BP systolic 102–197; BP diastolic 63–99
[2020-12-12] MEDS ORDERED: meTOprolol SUCCINATE 100 MG (TOPROL XL) TAB PO ONE ×2 (00:27→00:30)
[2020-12-12] MEDS ORDERED: cloNIDine 0.1 MG (CATAPRES) TAB ONE (02:41)
[2020-12-12] MEDS: cloNIDine 0.1 MG (CATAPRES) TAB PO SCH ×4 (02:52→21:28)
[2020-12-12] MEDS: PIPERACILLIN/TAZO 4.5 GM/NS 100 ML IV SCH ×6 (03:02→19:04)
[2020-12-12] MEDS: D5 1/2 NS W/KCL 20 MEQ/L 1,000 ML IV SCH ×4 (03:02→23:09)
[2020-12-12 05:03] LABS: MEAN PLATELET VOLUME 10.3 fL (9.0-12.2)
[2020-12-12 05:29] LABS: POTASSIUM 4.3 MMOL/L (3.6-5.0)
[2020-12-12 05:32] LABS: TOTAL PROTEIN 6.6 GM/DL (6.4-8.2)
[2020-12-12 05:33] LABS: BILIRUBIN,TOTAL 0.7 MG/DL (0.1-1.0)
[2020-12-12 05:35] LABS: CREATININE SERUM 1.81 MG/DL (0.60-1.30)
[2020-12-12] MEDS: inSUlin ASPART (NovoLOG) 1 UNIT/0.01 ML (CHARGE PER UNIT) SC SCH ×4 (06:03→21:01)
[2020-12-12] MEDS: ENOXAPARIN 40 MG/0.4 ML (LOVENOX) SYR SC SCH (06:09)
[2020-12-12] MEDS: meTOprolol SUCCINATE 100 MG (TOPROL XL) TAB PO SCH (08:26)
[2020-12-12] MEDS: FINASTERIDE (PROSCAR) 5 MG TAB PO SCH (08:26)
[2020-12-12] MEDS ORDERED: ISOSORBIDE MONONITRATE 60 MG (IMDUR) TAB PO SCH (09:00)
[2020-12-12] MEDS ORDERED: LOSARTAN 100 MG (COZAAR) TABLET PO SCH (09:00)
[2020-12-12] MEDS ORDERED: FUROSEMIDE 40 MG (LASIX) TAB PO SCH (09:00)
[2020-12-12] MEDS ORDERED: RX-TRAMADOL 50 MG (ULTRAM) TAB PPK#4 PO SCH (09:00)
[2020-12-12] MEDS: FLUTICASONE NASAL SPRAY (FLONASE) 16 GM BTL NS SCH (09:00)
[2020-12-12] MEDS: PANTOPRAZOLE 40 MG (PROTONIX) TAB PO SCH (09:05)
--- NOTE | 2020-12-12 11:05 | Progress Note - Hospitalist ---
Subjective HPI/CC On Admission Date Seen by Provider: Dec 12, 2020 Time Seen by Provider: 11:01 Pt is an 80yoCM with a PMH of IDDMII, HTN who presented to the ER due to adbominal pain, He states it started abruptly yesterday morning. He states that he started feeling poorly two days ago thought and was convinced that he had COVID as his sisters symptoms were similar. 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 He has severe nausea and vomiting. He denies diarrhea. He had a BM yesterday that was hard. He reports intermittent fevers as well. His pain is worse in his LLQ. This morning he reports that he is feeling better but still has some mild pain in LLQ. Subjective/Events-last exam Pt reports feeling better today. Still has persistent left lower quadrant pain though. Focused Exam Lactate Level 12/11/20 05:02: Lactic Acid Level 2.41*H 12/11/20 07:03: Lactic Acid Level 1.85 Objective Exam Vital Signs Vital Signs Date Time Temp Pulse Resp B/P (MAP) Pulse Ox O2 Delivery O2 Flow Rate FiO2 12/12/20 08:48 35.9 96 18 159/99 (119) 96 Room Air 12/12/20 08:00 92.00 Capillary Refill : Less Than 3 Seconds General Appearance: No Apparent Distress, Chronically ill, Obese Respiratory: Lungs Clear, No Accessory Muscle Use Cardiovascular: Regular Rate, Rhythm, No Murmur Neurologic/Psychiatric: Alert, Oriented x3 Results/Procedures Lab Laboratory Tests 12/12/20 04:52 Patient resulted labs reviewed. Imaging: Reviewed Imaging Report Assessment/Plan Assessment and Plan Assess & Plan/Chief Complaint Sepsis from acute diverticulitis, present on arrival Leukocytosis improving, now afebrile CT with Acute diverticulitis Continue on IV abx Continue pain regimen Surgery consulted, appreciate recs COVID19 Not hypoxic Discussed natural course of COVID No indication for remdesivir, decadron, or convalescent plasma since not hypoxic and only admitted for diverticulitis IDDMII SSI home meds HTN Continue home meds BPH Resume flomax Add Finasteride Finch in place currently, hopeful to DC soon DVT ppx: Lovenox Diagnosis/Problems Diagnosis/Problems (1) COVID-19 virus infection Status: Acute (2) Diverticulitis of intestine Status: Acute Qualifiers: Diverticulitis site: large intestine Diverticulitis bleeding: without bleeding Diverticulitis complication: without perforation or abscess Qualified Codes: K57.32 - Diverticulitis of large intestine without perforation or abscess without bleeding (3) Severe sepsis Status: Acute (4) Uncontrolled hypertension Status: Acute (5) IDDM (insulin dependent diabetes mellitus) Status: Acute (6) Chronic renal failure Status: Acute Qualifiers: Chronic kidney disease stage: stage 3 (moderate) Chronic kidney disease stage 3 subtype: stage 3b (GFR 30-44) Qualified Codes: N18.32 - Chronic kidney disease, stage 3b (7) Sinus tachycardia Status: Acute (8) Non-compliance Status: Acute (9) Cholelithiasis Status: Acute Qualifiers: Cholelithiasis location: gallbladder Cholecystitis presence: without cholecystitis Biliary obstruction: without biliary obstruction Qualified Codes: K80.20 - Calculus of gallbladder without cholecystitis without obstruction JJ ROBBINS MD Dec 12, 2020 11:05
--- NOTE | 2020-12-12 12:22 | Progress Note - Surgery ---
Subjective Time Seen by a Provider: 12:06 Subjective/Events-last exam Pt seen and examined, states his pain is a little better. When asked he states he is not moving much; "don't want to". He is tolerating clears. Review of Systems General: No Chills, No Night Sweats Pulmonary: Dyspnea; No Cough Cardiovascular: No: Chest Pain, Palpitations Gastrointestinal: Abdominal Pain; No: Nausea, Vomiting Focused Exam Lactate Level 12/11/20 05:02: Lactic Acid Level 2.41*H 12/11/20 07:03: Lactic Acid Level 1.85 Objective Exam Vital Signs Date Time Temp Pulse Resp B/P (MAP) Pulse Ox O2 Delivery O2 Flow Rate FiO2 12/12/20 11:55 36.1 92 18 128/78 (95) 96 Room Air 12/12/20 08:48 35.9 96 18 159/99 (119) 96 Room Air 12/12/20 08:00 96 Room Air 92.00 12/12/20 06:46 36.4 91 18 179/88 (118) 95 Room Air 12/12/20 06:40 91 12/12/20 03:53 36.6 99 18 164/91 (115) 95 Room Air 12/12/20 03:04 36.4 100 18 194/99 (130) 94 Room Air 12/12/20 02:30 36.4 100 18 179/95 (123) 94 Room Air 12/12/20 02:18 36.2 103 18 190/92 (124) 94 Room Air 12/12/20 01:00 103 12/12/20 00:04 36.2 100 18 197/97 (130) 94 Room Air 12/11/20 20:10 36.0 97 18 187/81 (116) 94 Room Air 12/11/20 20:00 Room Air 12/11/20 19:00 101 12/11/20 16:37 37.0 108 16 183/96 (125) 93 Room Air 12/11/20 12:52 110 I & O 12/12/20 06:59 Intake Total 3270 ml Output Total 1150 ml Balance 2120 ml Capillary Refill : Less Than 3 Seconds General Appearance: No Apparent Distress, Obese HEENT: PERRL/EOMI, Moist Mucous Membranes Respiratory: Lungs Clear, No Accessory Muscle Use Cardiovascular: Regular Rate, Rhythm, No Murmur Gastrointestinal: soft; No distended; guarding (voluntary); No rebound; tenderness (LLQ), hernia (Ventral/Incisional - incarcerated, 3 different spots); No mass Extremity: No Calf Tenderness, Pedal Edema Neurologic/Psychiatric: Alert, Oriented x3 Results Lab Laboratory Tests 12/11/20 16:17: Glucometer 209H 12/11/20 19:57: Glucometer 232H 12/12/20 04:52: White Blood Count 15.0H, Red Blood Count 5.25, Hemoglobin 15.0, Hematocrit 47, Mean Corpuscular Volume 89, Mean Corpuscular Hemoglobin 29, Mean Corpuscular Hemoglobin Concent 32, Red Cell Distribution Width 13.7, Platelet Count 193, Mean Platelet Volume 10.3, Sodium Level 136, Potassium Level 4.3, Chloride Level 103, Carbon Dioxide Level 23, Anion Gap 10, Blood Urea Nitrogen 23H, Creatinine 1.81H, Estimat Glomerular Filtration Rate 36, BUN/Creatinine Ratio 13, Glucose Level 195H, Calcium Level 8.0L, Corrected Calcium 8.8, Total Bilirubin 0.7, Aspartate Amino Transf (AST/SGOT) 41H, Alanine Aminotransferase (ALT/SGPT) 22, Alkaline Phosphatase 69, Total Protein 6.6, Albumin 3.0L 12/12/20 05:38: Glucometer 178H 12/12/20 11:35: Glucometer 255H Microbiology 12/11/20 Urine Culture - Final, Complete 12/11/20 Influenza Types A,B Antigen (RADHA) - Final, Complete Assessment/Plan Assessment/Plan Assessment/Plan Acute Diverticulitis w/o perforation Cholelithiasis without cholecystitis Incarcerated Umbilical hernia Covid -19 HTN, DM Pain is somewhat improved, would continue clear liquid diet. I would also recommend he have sosa removed and continue IV ABX, pain control. Pt encourag ed to ambulate and use IS. Will monitor labs and abdominal exam, no indication for surgical intervention at this time. He also has a small incarcerated umbilical hernia; however, since it is not bothering him he does not need to get it repaired. Pt also had an incidental finding of gallstones, but states he has never had RUQ pain or any symptoms of gallbladder disease. Pt had no questions at this time. LALIT HAYES DO Dec 12, 2020 12:22
[2020-12-12] MEDS: TAMSULOSIN 0.4 MG (FLOMAX) CAP PO SCH (17:33)
[2020-12-13 03:35] VITALS: BP 149/87
[2020-12-13] MEDS: PIPERACILLIN/TAZO 4.5 GM/NS 100 ML IV SCH ×6 (03:37→18:15)
[2020-12-13 05:33] LABS: HEMOGLOBIN 13.7 g/dL (13.3-17.7); MEAN PLATELET VOLUME 10.3 fL (9.0-12.2); WHITE BLOOD COUNT 10.8 10^3/uL (4.3-11.0)
[2020-12-13] MEDS: inSUlin ASPART (NovoLOG) 1 UNIT/0.01 ML (CHARGE PER UNIT) SC SCH ×4 (05:35→21:04)
[2020-12-13 05:41] LABS: POTASSIUM 4.7 MMOL/L (3.6-5.0)
[2020-12-13 05:47] LABS: CREATININE SERUM 2.35 MG/DL (0.60-1.30)
[2020-12-13] MEDS: D5 1/2 NS W/KCL 20 MEQ/L 1,000 ML IV SCH (06:01)
[2020-12-13] MEDS: ENOXAPARIN 40 MG/0.4 ML (LOVENOX) SYR SC SCH (06:02)
[2020-12-13 08:00] VITALS: BP 166/93
[2020-12-13] MEDS: ISOSORBIDE MONONITRATE 60 MG (IMDUR) TAB PO SCH (09:06)
[2020-12-13] MEDS: meTOprolol SUCCINATE 100 MG (TOPROL XL) TAB PO SCH (09:06)
[2020-12-13] MEDS: cloNIDine 0.1 MG (CATAPRES) TAB PO SCH ×3 (09:07→21:29)
[2020-12-13] MEDS: PANTOPRAZOLE 40 MG (PROTONIX) TAB PO SCH (09:07)
[2020-12-13] MEDS: FINASTERIDE (PROSCAR) 5 MG TAB PO SCH (09:09)
[2020-12-13] MEDS: FLUTICASONE NASAL SPRAY (FLONASE) 16 GM BTL NS SCH (09:13)
[2020-12-13] MEDS: NS IV 1000 ML 1,000 ML IV SCH ×3 (09:38→21:30)
--- NOTE | 2020-12-13 10:55 | Physical Therapy Evaluation ---
PT Evaluation-General Medical Diagnosis Admission Date Dec 11, 2020 at 04:25 Medical Diagnosis: sepsis from diverticulitis, covid 19 Onset Date: Dec 11, 2020 Therapy Diagnosis Therapy Diagnosis: impaired mobility, strength, endurance Height/Weight Height (Feet): 5 Height (Inches): 7.00 Weight (Pounds): 200 Precautions Precautions/Isolations: Contact Isolation, Droplet Isolation Referral Physician: Judy Reason for Referral: Evaluation/Treatment Medical History Pertinent Medical History: CAD, DM, HTN Additional Medical History Past Medical History Surgeries: Cardiac Cardiac: Chronic Edema/Swelling, Coronary Artery Disease, Heart Attack, High Cholesterol, Hypertension Neurological: Neuropathy Genitourinary: Renal Failure Gastrointestinal: Gall Bladder Disease Endocrine: Diabetes, Insulin dep Loss of Vision: Denies Hearing Impairment: Denies History of Blood Disorders: No Reviewed History: Yes Social History Home: Single Level Current Living Status: Alone Entry Into Home: Ramp Prior Prior Level of Function SCALE: Activities may be completed with or without assistive devices. 0-Ffmzvlaosb-vibiryw completes the activity by him/herself with no assistance from a helper. 5-Set-up or Clean-up Assistance-helper sets up or cleans up; patient completes activity. [place] assists only prior to or following the activity. 4-Supervision or Touching Assistance-helper provides verbal cues and/or touching/steadying and/or contact guard assistance as patient completes activity. Assistance may be provided throughout the activity or intermittently. 3-Partial/Moderate Assistance-helper does LESS THAN HALF the effort. [place] lifts, holds or supports trunk or limbs, but provides less than half the effort. 2-Substantial/Maximal Assistance-helper does MORE THAN HALF the effort. [place] lifts or holds trunk or limbs and provides more than half the effort. 4-Lwjxgfoyo-jhcehq does ALL the effort. Patient does none of the effort to complete the activity. Or, the assistance of 2 or more helpers is required for the patient to complete the activity. If activity was not attempted, code reason: 7-Patient Refused. 9-Not Applicable-not attempted and the patient did not perform the activity before the current illness, exacerbation or injury. 10-Not Attempted due to Environmental Limitations-(lack of equipment, weather restraints, etc.). 88-Not Attempted due to Medical Conditions or Safety Concerns. Bed Mobility: 6 Transfers (B,C,W/C): 6 Gait: 6 Indoor Mobility (Ambulation): Independent PT Evaluation-Current Subjective Patient in recliner pre tx, agrees to PT, has unrated pain in left side of abdomen. Pt/Family Goals to be independent at home Objective Patient Orientation: Person, Place, Situation ROM/Strength ROM Lower Extremities WNL Strength Lower Extremities LLE (hip flexion 3+/5, knee flexion 4/5, knee extension 4/5, dorsiflexion 4/5), RLE (hip flexion 3+/5, knee flexion 4/5, knee extension 4/5, dorsiflexion 4/5) Sensory Hearing: Functional Sensation Right Lower Extremit: Intact Sensation Left Lower Extremity: Intact Sensation Lower Extremities Patient states he has neuropathy but seems to have intact light touch sensation in BLE Transfers Sit to Stand (QC): 4 Chair/Pzp-hj-Vvcth Xfer(QC): 4 CGA Gait Does the Patient Walk?: Yes Mode of Locomotion: Walk Anticipated Mode of Locomotion: Walk Walk 10 feet (QC): 4 Distance: 30' Gait Assistive Device: FWW Comments/Gait Description CGA, slight unsteadiness, SOB slightly after getting back to recliner but recov ers within seconds Balance Sitting Static: Normal Sitting Dynamic: Normal Standing Static: Good Standing Dynamic: Fair Treatment BLE exercises x20 (AP, LAQ) Assessment/Needs Patient has impaired mobility, strength, endurance. Patient in recliner post tx with nurse call, phone, tray, legs elevated, all needs met. Patient needs CGA for ambulation. Rehab Potential: Fair PT [facility] Goals Tanbark Peeler Goals PT [facility] Goals Time Frame: Dec 20, 2020 Roll Left & Right (QC): 6 Sit to Lying (QC): 6 Lying-Sitting on Side/Bed(QC): 6 Sit to Stand (QC): 6 Chair/Vxm-yd-Uhjvj Xfer(QC): 6 Walk 10 feet (QC): 6 Walk 50ft with 2 Turns (QC): 6 PT Plan Problem List Problem List: Activity Tolerance, Functional Strength, Safety, Balance, Gait, Transfer, Bed Mobility, ROM Treatment/Plan Treatment Plan: Continue Plan of Care Treatment Plan: Bed Mobility, Education, Functional Activity Shannon, Functional Strength, Gait, Safety, Therapeutic Exercise, Transfers Treatment Duration: Dec 20, 2020 Frequency: 6 times per week Estimated Hrs Per Day: .25 hour per day Patient and/or Family Agrees t: Yes Safety Risks/Education Patient Education: Gait Training, Transfer Techniques, Correct Positioning, Safety Issues Teaching Recipient: Patient Teaching Methods: Demonstration, Discussion Response to Teaching: Reinforcement Needed Discharge Recommendations Plan Patient will perform bed mobility and transfer training, balance and endurance training ,functional strengthening, stair training, gait training, and education, to improve functional mobility and independence at home. Therapy Discharge Recommendati: Scheduled Assistance, Home & Family Time/GCodes Time In: 1020 Time Out: 1032 Total Billed Treatment 1 visit SHERRY Mckinley' STEVEN GONZALEZ PT Dec 13, 2020 10:55
[2020-12-13 12:00] VITALS: BP 138/72
--- NOTE | 2020-12-13 12:14 | Progress Note - Surgery ---
Subjective Time Seen by a Provider: 12:05 Subjective/Events-last exam Pt seen and examined, states his pain is worse today "worse than yesterday". Pt is not taking that much liquids in, he also states he hasn't had a BM. Reports that he is a little weak. Review of Systems General: Fatigue, Malaise Pulmonary: No Dyspnea; Cough Cardiovascular: No: Chest Pain, Palpitations Gastrointestinal: Abdominal Pain; No: Nausea, Vomiting Focused Exam Lactate Level 12/11/20 05:02: Lactic Acid Level 2.41*H 12/11/20 07:03: Lactic Acid Level 1.85 Objective Exam Vital Signs Date Time Temp Pulse Resp B/P (MAP) Pulse Ox O2 Delivery O2 Flow Rate FiO2 12/13/20 08:00 35.6 84 20 166/93 (117) 98 Room Air 12/13/20 06:35 73 12/13/20 03:35 36.3 76 22 149/87 (107) 95 Room Air 12/13/20 01:00 70 12/12/20 23:48 36.2 80 20 110/71 (84) 97 Room Air 12/12/20 23:37 97 Room Air 12/12/20 20:57 36.9 78 20 122/70 (87) 97 Room Air 12/12/20 20:48 Room Air 12/12/20 19:00 81 12/12/20 16:02 36.0 83 22 102/63 (76) 96 Room Air 12/12/20 13:10 104 I & O 12/13/20 07:00 Intake Total 1400 ml Output Total 700 ml Balance 700 ml Capillary Refill : Less Than 3 Seconds General Appearance: No Apparent Distress, Obese HEENT: PERRL/EOMI, Moist Mucous Membranes Respiratory: Lungs Clear, No Accessory Muscle Use Cardiovascular: Regular Rate, Rhythm, No Murmur Gastrointestinal: soft; No distended; guarding (voluntary), rebound (minimal), tenderness (LLQ), hernia (Umbilical); No mass Extremity: No Calf Tenderness, Pedal Edema Neurologic/Psychiatric: Alert, Oriented x3 Results Lab Laboratory Tests 12/12/20 16:04: Glucometer 117H 12/12/20 17:32: Glucometer 133H 12/12/20 20:56: Glucometer 200H 12/13/20 05:20: White Blood Count 10.8, Red Blood Count 4.87, Hemoglobin 13.7, Hematocrit 44, Mean Corpuscular Volume 91, Mean Corpuscular Hemoglobin 28, Mean Corpuscular Hemoglobin Concent 31L, Red Cell Distribution Width 13.6, Platelet Count 187, Mean Platelet Volume 10.3, Sodium Level 135, Potassium Level 4.7, Chloride Level 103, Carbon Dioxide Level 24, Anion Gap 8, Blood Urea Nitrogen 28H, Creatinine 2.35H, Estimat Glomerular Filtration Rate 27, BUN/Creatinine Ratio 12, Glucose Level 163H, Calcium Level 8.0L 12/13/20 05:22: Glucometer 154H 12/13/20 11:16: Glucometer 214H Microbiology 12/11/20 Urine Culture - Final, Complete 12/11/20 Blood Culture - Preliminary, Resulted No growth 12/11/20 Influenza Types A,B Antigen (RADHA) - Final, Complete Assessment/Plan Assessment/Plan Assessment/Plan Acute Diverticulitis w/o perforation Cholelithiasis without cholecystitis Incarcerated Umbilical hernia Covid -19 HTN, DM Pain has worsened, but WBC is now normal, would continue clear liquid diet and consider making NPO if pain does not improve. Continue IV ABX, pain control and encourage ambulation and use IS. Will monitor labs and abdominal exam, no indication for surgical intervention at this time. Will order a dulcolax suppository to see if that helps him. He also has a small incarcerated umbilical hernia; however, since it is not bothering him he does not need to get it repaired. Pt also had an incidental finding of gallstones, but states he has never had RUQ pain or any symptoms of gallbladder disease. Pt had no questions at this time. LALIT HAYES DO Dec 13, 2020 12:14
[2020-12-13] MEDS ORDERED: BISACODYL 10 MG SUPP (DULCOLAX) PR ONE (12:15)
--- NOTE | 2020-12-13 12:25 | Progress Note - Hospitalist ---
Subjective HPI/CC On Admission Date Seen by Provider: Dec 13, 2020 Time Seen by Provider: 09:00 Pt is an 80yoCM with a PMH of IDDMII, HTN who presented to the ER due to adbominal pain, He states it started abruptly yesterday morning. He states that he started feeling poorly two days ago thought and was convinced that he had COVID as his sisters symptoms were similar. 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 He has severe nausea and vomiting. He denies diarrhea. He had a BM yesterday that was hard. He reports intermittent fevers as well. His pain is worse in his LLQ. This morning he reports that he is feeling better but still has some mild pain in LLQ. Subjective/Events-last exam Pt reports doing ok this morning. Still has left sided abdominal pain but improving. Thinks he is developing classic COVID symptoms though he was unable to tell me what his symptom was he just remembered that it was a "classic" sign. He denied cough, SOB, loss of smell or taste. Focused Exam Lactate Level 12/11/20 05:02: Lactic Acid Level 2.41*H 12/11/20 07:03: Lactic Acid Level 1.85 Objective Exam Vital Signs Vital Signs Date Time Temp Pulse Resp B/P (MAP) Pulse Ox O2 Delivery O2 Flow Rate FiO2 12/13/20 08:00 35.6 84 20 166/93 (117) 98 Room Air 12/12/20 08:00 92.00 Capillary Refill : Less Than 3 Seconds General Appearance: No Apparent Distress, WD/WN Respiratory: Lungs Clear, No Respiratory Distress Cardiovascular: Regular Rate, Rhythm, No Murmur Gastrointestinal: Normal Bowel Sounds, Non Tender, Soft Neurologic/Psychiatric: Alert, Oriented x3 Results/Procedures Lab Laboratory Tests 12/13/20 05:20 Patient resulted labs reviewed. Imaging: Reviewed Imaging Report Assessment/Plan Assessment and Plan Assess & Plan/Chief Complaint Sepsis from acute diverticulitis, present on arrival Leukocytosis improving, now afebrile CT with acute diverticulitis Continue on IV abx Continue pain regimen Surgery consulted, appreciate recs CLD for now COVID19 Not hypoxic Discussed natural course of COVID No indication for remdesivir, decadron, or convalescent plasma since not hypoxic and only admitted for diverticulitis IDDMII SSI home meds HTN Continue home meds BPH Continue flomax Continue Finasteride Finch in place currently, hopeful to DC soon DVT ppx: Lovenox Diagnosis/Problems Diagnosis/Problems (1) COVID-19 virus infection Status: Acute (2) Diverticulitis of intestine Status: Acute Qualifiers: Diverticulitis site: large intestine Diverticulitis bleeding: without bleeding Diverticulitis complication: without perforation or abscess Qualified Codes: K57.32 - Diverticulitis of large intestine without perforation or abscess without bleeding (3) Severe sepsis Status: Acute (4) Uncontrolled hypertension Status: Acute (5) IDDM (insulin dependent diabetes mellitus) Status: Acute (6) Chronic renal failure Status: Acute Qualifiers: Chronic kidney disease stage: stage 3 (moderate) Chronic kidney disease stage 3 subtype: stage 3b (GFR 30-44) Qualified Codes: N18.32 - Chronic kidney disease, stage 3b (7) Sinus tachycardia Status: Acute (8) Non-compliance Status: Acute (9) Cholelithiasis Status: Acute Qualifiers: Cholelithiasis location: gallbladder Cholecystitis presence: without cholecystitis Biliary obstruction: without biliary obstruction Qualified Codes: K80.20 - Calculus of gallbladder without cholecystitis without obstruction JJ ROBBINS MD Dec 13, 2020 12:25
[2020-12-13 15:57] VITALS: BP 152/87
[2020-12-13] MEDS: TAMSULOSIN 0.4 MG (FLOMAX) CAP PO SCH (18:11)
[2020-12-13 20:59] VITALS: BP 147/88
[2020-12-14] VITALS (7 sets, daily range): BP systolic 119–196; BP diastolic 61–102
[2020-12-14] MEDS: PIPERACILLIN/TAZO 4.5 GM/NS 100 ML IV SCH ×6 (03:20→18:01)
[2020-12-14] MEDS: NS IV 1000 ML 1,000 ML IV SCH ×2 (04:57→12:16)
[2020-12-14] MEDS: ENOXAPARIN 40 MG/0.4 ML (LOVENOX) SYR SC SCH (04:57)
[2020-12-14] MEDS: inSUlin ASPART (NovoLOG) 1 UNIT/0.01 ML (CHARGE PER UNIT) SC SCH ×4 (06:39→20:22)
[2020-12-14] MEDS: ACETAMINOPHEN 325 MG TABLET PO PRN ×2 (06:57→17:53)
[2020-12-14] MEDS: meTOprolol SUCCINATE 100 MG (TOPROL XL) TAB PO SCH (08:44)
[2020-12-14] MEDS: cloNIDine 0.1 MG (CATAPRES) TAB PO SCH ×3 (08:45→20:34)
[2020-12-14] MEDS: FINASTERIDE (PROSCAR) 5 MG TAB PO SCH (08:45)
[2020-12-14] MEDS: ISOSORBIDE MONONITRATE 60 MG (IMDUR) TAB PO SCH (08:45)
[2020-12-14] MEDS: PANTOPRAZOLE 40 MG (PROTONIX) TAB PO SCH (08:45)
[2020-12-14] MEDS: FLUTICASONE NASAL SPRAY (FLONASE) 16 GM BTL NS SCH (08:46)
--- NOTE | 2020-12-14 09:04 | Progress Note - Surgery ---
Subjective Time Seen by a Provider: 08:47 Subjective/Events-last exam Pt seen and examined, states his pain is better. He complains "I'm weak because all I'm getting is a cup of broth." Pt is also constipated. Review of Systems General: Fatigue, Malaise Pulmonary: No Dyspnea; Cough Cardiovascular: No: Chest Pain, Palpitations Gastrointestinal: Abdominal Pain; No: Nausea, Vomiting Objective Exam Vital Signs Date Time Temp Pulse Resp B/P (MAP) Pulse Ox O2 Delivery O2 Flow Rate FiO2 12/14/20 07:00 94 12/14/20 04:50 35.9 81 20 178/98 (124) 98 Room Air 12/14/20 01:00 70 12/14/20 00:40 36.2 77 20 146/80 (102) 97 Room Air 12/13/20 20:59 36.4 76 20 147/88 (107) 95 Room Air 12/13/20 20:00 96 Room Air 12/13/20 19:00 74 12/13/20 15:57 36.0 88 18 152/87 (108) 95 Room Air 12/13/20 12:29 36.0 12/13/20 12:21 77 12/13/20 12:00 36.0 76 18 138/72 (94) 95 Room Air I & O 12/14/20 07:00 Intake Total 1615 ml Output Total 825 ml Balance 790 ml Capillary Refill : Less Than 3 SecondsLess Than 3 Seconds General Appearance: No Apparent Distress, WD/WN HEENT: PERRL/EOMI, Moist Mucous Membranes Respiratory: Lungs Clear, No Respiratory Distress Cardiovascular: Regular Rate, Rhythm, No Murmur Gastrointestinal: soft; No distended; guarding (voluntary), tenderness (LLQ - better compared to yesterday), hernia (Umbilical); No mass Extremity: No Calf Tenderness, Pedal Edema Neurologic/Psychiatric: Alert, Oriented x3 Results Lab Laboratory Tests 12/13/20 11:16: Glucometer 214H 12/13/20 15:53: Glucometer 63L 12/13/20 17:17: Glucometer 154H 12/13/20 20:54: Glucometer 136H 12/14/20 00:39: Glucometer 148H 12/14/20 06:37: Glucometer 78 12/14/20 08:21: Glucometer 128H Microbiology 12/11/20 Urine Culture - Final, Complete 12/11/20 Blood Culture - Preliminary, Resulted No growth 12/11/20 Influenza Types A,B Antigen (RADHA) - Final, Complete Assessment/Plan Assessment/Plan Assessment/Plan Acute Diverticulitis w/o perforation Cholelithiasis without cholecystitis Incarcerated Umbilical hernia Covid -19 HTN, DM Pain better todayl, would start soft diet, plus ensure for protein. Continue IV ABX, pain control and encourage ambulation and use IS. Will monitor labs and abdominal exam, no indication for surgical intervention at this time. Will order a dulcolax suppository to see if that helps him. He also has a small incarcerated umbilical hernia; however, since it is not bothering him he does not need to get it repaired. Pt also had an incidental finding of gallstones, but states he has never had RUQ pain or any symptoms of gallbladder disease. Pt had no questions at this time. LALIT HAYES DO Dec 14, 2020 09:04
[2020-12-14 09:42] LABS: HEMOGLOBIN 13.3 g/dL (13.3-17.7); MEAN PLATELET VOLUME 10.1 fL (9.0-12.2); WHITE BLOOD COUNT 10.8 10^3/uL (4.3-11.0)
[2020-12-14 10:04] LABS: CALCIUM 7.8 MG/DL (8.5-10.1); CREATININE SERUM 2.12 MG/DL (0.60-1.30); POTASSIUM 3.9 MMOL/L (3.6-5.0)
--- NOTE | 2020-12-14 11:19 | Physical Therapy Daily Note ---
PT Daily Note-Current Subjective Patient agrees to PT. Mental Status Patient Orientation: Normal For Age Attachments: IV Transfers SCALE: Activities may be completed with or without assistive devices. 0-Ifpqtrugkb-whwzksq completes the activity by him/herself with no assistance from a helper. 5-Set-up or Clean-up Assistance-helper sets up or cleans up; patient completes activity. [place] assists only prior to or following the activity. 4-Supervision or Touching Assistance-helper provides verbal cues and/or touching/steadying and/or contact guard assistance as patient completes activity. Assistance may be provided throughout the activity or intermittently. 3-Partial/Moderate Assistance-helper does LESS THAN HALF the effort. [place] lifts, holds or supports trunk or limbs, but provides less than half the effort. 2-Substantial/Maximal Assistance-helper does MORE THAN HALF the effort. [place] lifts or holds trunk or limbs and provides more than half the effort. 2-Nivnavzjw-iaxauu does ALL the effort. Patient does none of the effort to complete the activity. Or, the assistance of 2 or more helpers is required for the patient to complete the activity. If activity was not attempted, code reason: 7-Patient Refused. 9-Not Applicable-not attempted and the patient did not perform the activity before the current illness, exacerbation or injury. 10-Not Attempted due to Environmental Limitations-(lack of equipment, weather restraints, etc.). 88-Not Attempted due to Medical Conditions or Safety Concerns. Lying to Sitting/Side of Bed(Q: 5 Sit to Stand (QC): 5 Chair/Lgn-kz-Ihfor Xfer(QC): 4 Gait Training Does the Patient Walk?: Yes Distance: 150' in room Walk 10 feet (QC): 4 Walk 50 ft with 2 Turns(QC): 4 Walk 150 ft (QC): 4 Gait Assistive Device: None patient adamantly declined FWW use/slightly unsteady with self correct Exercises Seated Therapy Exercises: Ankle pumps, Long arc quads, Hip flexion, Hip abd/add Seated Reps: 15 (2 sets) Assessment Patient requires time to complete all functional tasks. Patient reports weakness, however ceases treatment. PT Leather Piece Inspector Goals Leather Piece Inspector Goals PT [facility] Goals Time Frame: Dec 20, 2020 Roll Left & Right (QC): 6 Sit to Lying (QC): 6 Lying-Sitting on Side/Bed(QC): 6 Sit to Stand (QC): 6 Chair/Dld-lm-Juyqu Xfer(QC): 6 Walk 10 feet (QC): 6 Walk 50ft with 2 Turns (QC): 6 PT Plan Treatment/Plan Treatment Plan: Continue Plan of Care Treatment Plan: Bed Mobility, Education, Functional Activity Shannon, Functional Strength, Gait, Safety, Therapeutic Exercise, Transfers Treatment Duration: Dec 20, 2020 Frequency: 6 times per week Estimated Hrs Per Day: .25 hour per day Patient and/or Family Agrees t: Yes Time/GCodes Time In: 905 Time Out: 928 Total Billed Treatment Time: 23 Total Billed Treatment 1 visit FA 10 min EX 13 min RANJITH FIERRO PT Dec 14, 2020 11:19
--- NOTE | 2020-12-14 12:59 | Progress Note - Hospitalist ---
Subjective HPI/CC On Admission Date Seen by Provider: Dec 14, 2020 Time Seen by Provider: 12:56 Pt is an 80yoCM with a PMH of IDDMII, HTN who presented to the ER due to adbominal pain, He states it started abruptly yesterday morning. He states that he started feeling poorly two days ago thought and was convinced that he had COVID as his sisters symptoms were similar. 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 He has severe nausea and vomiting. He denies diarrhea. He had a BM yesterday that was hard. He reports intermittent fevers as well. His pain is worse in his LLQ. This morning he reports that he is feeling better but still has some mild pain in LLQ. Subjective/Events-last exam Pt reports feeling better. pain improving. Discussed plan for possible DC as soon as tomorrow and he expressed concern about his COVID diagnosis. Informed him that most patients who have COVID and are not on oxygen are at home and that his big issue is his diverticulitis which is improving. He expressed understanding of this. Objective Exam Vital Signs Vital Signs Date Time Temp Pulse Resp B/P (MAP) Pulse Ox O2 Delivery O2 Flow Rate FiO2 12/14/20 08:45 36.8 92 19 196/102 (133) 94 Room Air 12/12/20 08:00 92.00 Capillary Refill : Less Than 3 SecondsLess Than 3 Seconds General Appearance: No Apparent Distress, Chronically ill, Obese Respiratory: Lungs Clear, No Accessory Muscle Use, No Respiratory Distress Cardiovascular: Regular Rate, Rhythm, No Murmur Gastrointestinal: Normal Bowel Sounds, Non Tender, Soft Neurologic/Psychiatric: Alert, Oriented x3 Results/Procedures Lab Laboratory Tests 12/14/20 09:35 Patient resulted labs reviewed. Imaging: Reviewed Imaging Report Assessment/Plan Assessment and Plan Assess & Plan/Chief Complaint Sepsis from acute diverticulitis, present on arrival Leukocytosis improving, now afebrile CT with acute diverticulitis Continue on IV abx Continue pain regimen Surgery consulted, appreciate recs Advance to soft diet COVID19 Not hypoxic Discussed natural course of COVID No indication for remdesivir, decadron, or convalescent plasma since not hypoxic and only admitted for diverticulitis IDDMII SSI home meds HTN Continue home meds BPH Continue flomax DVT ppx: Lovenox Diagnosis/Problems Diagnosis/Problems (1) COVID-19 virus infection Status: Acute (2) Diverticulitis of intestine Status: Acute Qualifiers: Diverticulitis site: large intestine Diverticulitis bleeding: without bleeding Diverticulitis complication: without perforation or abscess Qualified Codes: K57.32 - Diverticulitis of large intestine without perforation or abscess without bleeding (3) Severe sepsis Status: Acute (4) Uncontrolled hypertension Status: Acute (5) IDDM (insulin dependent diabetes mellitus) Status: Acute (6) Chronic renal failure Status: Acute Qualifiers: Chronic kidney disease stage: stage 3 (moderate) Chronic kidney disease stage 3 subtype: stage 3b (GFR 30-44) Qualified Codes: N18.32 - Chronic kidney disease, stage 3b (7) Sinus tachycardia Status: Acute (8) Non-compliance Status: Acute (9) Cholelithiasis Status: Acute Qualifiers: Cholelithiasis location: gallbladder Cholecystitis presence: without cholecystitis Biliary obstruction: without biliary obstruction Qualified C odes: K80.20 - Calculus of gallbladder without cholecystitis without obstruction JJ ROBBINS MD Dec 14, 2020 12:59
[2020-12-14] MEDS: TAMSULOSIN 0.4 MG (FLOMAX) CAP PO SCH (17:52)
[2020-12-15 02:53] VITALS: BP 157/70
[2020-12-15] MEDS: NS IV 1000 ML 1,000 ML IV SCH (02:59)
[2020-12-15] MEDS: ACETAMINOPHEN 325 MG TABLET PO PRN ×3 (03:00→21:08)
[2020-12-15] MEDS: PIPERACILLIN/TAZO 4.5 GM/NS 100 ML IV SCH ×6 (03:05→18:26)
[2020-12-15] MEDS: inSUlin ASPART (NovoLOG) 1 UNIT/0.01 ML (CHARGE PER UNIT) SC SCH ×4 (06:23→20:02)
[2020-12-15] MEDS: ENOXAPARIN 40 MG/0.4 ML (LOVENOX) SYR SC SCH (06:24)
[2020-12-15] MEDS: FINASTERIDE (PROSCAR) 5 MG TAB PO SCH (07:54)
[2020-12-15] MEDS: PANTOPRAZOLE 40 MG (PROTONIX) TAB PO SCH (07:54)
[2020-12-15] MEDS: ISOSORBIDE MONONITRATE 60 MG (IMDUR) TAB PO SCH (07:55)
[2020-12-15] MEDS: meTOprolol SUCCINATE 100 MG (TOPROL XL) TAB PO SCH (07:55)
[2020-12-15] MEDS: cloNIDine 0.1 MG (CATAPRES) TAB PO SCH ×3 (07:55→21:03)
[2020-12-15] MEDS: FLUTICASONE NASAL SPRAY (FLONASE) 16 GM BTL NS SCH (08:00)
[2020-12-15 08:01] VITALS: BP 179/90
[2020-12-15 08:15] VITALS: BP 156/81
--- NOTE | 2020-12-15 13:18 | Physical Therapy Progress Note ---
Therapy Progress Note RN in room and stated patient ambulated independently, however, declined to ambulate distance due to "glucose issues". Patient then declined activity with PT due to this. PT will attempt in a.m. 1 visit ([id number]) RANJITH FIERRO PT Dec 15, 2020 13:18
--- NOTE | 2020-12-15 14:15 | Progress Note - Surgery ---
Subjective Time Seen by a Provider: 14:01 Subjective/Events-last exam Pt seen and examined, was doing fine this am but then started complaining of pain. Nurse states he is refusing to leave. Review of Systems General: No Chills, No Night Sweats HEENT: No Head Aches, No Visual Changes Pulmonary: No Dyspnea, No Cough Cardiovascular: No: Chest Pain, Palpitations Gastrointestinal: Abdominal Pain; No: Nausea, Vomiting Objective Exam Vital Signs Date Time Temp Pulse Resp B/P (MAP) Pulse Ox O2 Delivery O2 Flow Rate FiO2 12/15/20 08:15 156/81 (106) Room Air 12/15/20 08:01 36.4 86 20 179/90 (119) 98 Room Air 12/15/20 07:00 Room Air 12/15/20 02:53 36.4 77 20 157/70 (99) 98 Room Air 12/15/20 01:00 70 12/14/20 23:39 97 Room Air 12/14/20 23:34 36.0 68 20 131/75 (93) 97 Room Air 12/14/20 20:37 Room Air 12/14/20 20:19 36.4 78 20 179/86 (117) 95 Room Air 12/14/20 19:00 72 12/14/20 16:07 37.0 72 20 119/61 (80) 94 Room Air I & O 12/15/20 07:00 Intake Total 3270 ml Output Total 2515 ml Balance 755 ml Capillary Refill : Less Than 3 SecondsLess Than 3 Seconds General Appearance: No Apparent Distress, Chronically ill, Obese HEENT: PERRL/EOMI, Moist Mucous Membranes Respiratory: Lungs Clear, No Accessory Muscle Use, No Respiratory Distress Cardiovascular: Regular Rate, Rhythm, No Murmur Gastrointestinal: soft, guarding (voluntary with deep palpation), tenderness, hernia (umbilical) Extremity: No Calf Tenderness, Pedal Edema Neurologic/Psychiatric: Alert, Oriented x3 Results Lab Laboratory Tests 12/14/20 16:06: Glucometer 172H 12/14/20 20:18: Glucometer 122H 12/14/20 23:38: Glucometer 152H 12/15/20 03:09: Glucometer 139H 12/15/20 06:20: Glucometer 111H 12/15/20 10:06: Glucometer 143H 12/15/20 11:44: Glucometer 124H Microbiology 12/11/20 Urine Culture - Final, Complete 12/11/20 Blood Culture - Preliminary, Resulted No growth 12/11/20 Influenza Types A,B Antigen (RADHA) - Final, Complete Assessment/Plan Assessment/Plan Assessment/Plan Acute Diverticulitis w/o perforation Cholelithiasis without cholecystitis Incarcerated Umbilical hernia Covid -19 HTN, DM Pt is improved and can be sent home, I'd be happy to see him as an outpt. He also has a small incarcerated umbilical hernia; however, since it is not bothering him he does not need to get it repaired. Pt also had an incidental finding of gallstones, but states he has never had RUQ pain or any symptoms of gallbladder disease. Pt had no questions at this time. LALIT HAYES DO Dec 15, 2020 14:15
[2020-12-15 14:19] VITALS: BP 171/75
[2020-12-15] MEDS ORDERED: SENNA W/DOCUSATE (SENOKOT S) TABLET PO PRN (14:30)
--- NOTE | 2020-12-15 15:41 | Progress Note - Hospitalist ---
Subjective HPI/CC On Admission Date Seen by Provider: Dec 15, 2020 Time Seen by Provider: 15:36 Pt is an 80yoCM with a PMH of IDDMII, HTN who presented to the ER due to adbominal pain, He states it started abruptly yesterday morning. He states that he started feeling poorly two days ago thought and was convinced that he had COVID as his sisters symptoms were similar. 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 He has severe nausea and vomiting. He denies diarrhea. He had a BM yesterday that was hard. He reports intermittent fevers as well. His pain is worse in his LLQ. This morning he reports that he is feeling better but still has some mild pain in LLQ. Subjective/Events-last exam Pt reports feeling better but having some abdominal pain still. Has needed no IV pain medicine for this in multiple days though. Discussed plan for DC and he states he feels he is not ready to go home and is worried about his safety. Discussed process for shelter placement for continued therapy and supervision but he does not want to do this either. Discussed all DC options including home health and he is interested in this. Informed him that they will not be there 26/05 though. He reports wanting to have one more day to work with therapy. Agreed to one more day and hopefully home with HH tomorrow if he remains well. Objective Exam Vital Signs Vital Signs Date Time Temp Pulse Resp B/P (MAP) Pulse Ox O2 Delivery O2 Flow Rate FiO2 12/15/20 14:19 36.5 81 18 171/75 (107) 97 Room Air 12/12/20 08:00 92.00 Capillary Refill : Less Than 3 SecondsLess Than 3 Seconds General Appearance: No Apparent Distress, Chronically ill Respiratory: Lungs Clear, No Respiratory Distress Cardiovascular: Regular Rate, Rhythm, No Murmur Gastrointestinal: Normal Bowel Sounds, Soft; No Distended, No Guarding; Tenderness (mild near umbilicus) Neurologic/Psychiatric: Alert, Oriented x3 Results/Procedures Lab Patient resulted labs reviewed. Imaging: Reviewed Imaging Report Assessment/Plan Assessment and Plan Assess & Plan/Chief Complaint Sepsis from acute diverticulitis, present on arrival- now resolved Leukocytosis improving, now afebrile CT with acute diverticulitis Continue on IV abx for now DC IVF Continue pain regimen Surgery consulted, appreciate recs Tolerating soft diet COVID19 Not hypoxic Discussed natural course of COVID No indication for remdesivir, decadron, or convalescent plasma since not hypoxic and only admitted for diverticulitis IDDMII SSI home meds HTN Continue home meds BPH Continue flomax and proscar Debility Continue PT/OT environmental services specialist consulted, appreciate their assistance Plan for DC home tomorrow with HH or Friday to SNF if unable to DC to home DVT ppx: Lovenox Diagnosis/Problems Diagnosis/Problems (1) COVID-19 virus infection Status: Acute (2) Diverticulitis of intestine Status: Acute Qualifiers: Diverticulitis site: large intestine Diverticulitis bleeding: without bleeding Diverticulitis complication: without perforation or abscess Qualified Codes: K57.32 - Diverticulitis of large intestine without perforation or abscess without bleeding (3) Severe sepsis Status: Acute (4) Uncontrolled hypertension Status: Acute (5) IDDM (insulin dependent diabetes mellitus) Status: Acute (6) Chronic renal failure Status: Acute Qualifiers: Chronic kidney disease stage: stage 3 (moderate) 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
[2020-12-15 15:52] VITALS: BP_SYST 164
[2020-12-15] MEDS: TAMSULOSIN 0.4 MG (FLOMAX) CAP PO SCH (18:25)
[2020-12-15 19:46] VITALS: BP 172/88
[2020-12-16] VITALS (9 sets, daily range): BP systolic 162–212; BP diastolic 73–110
[2020-12-16] MEDS ORDERED: NITROGLYCERIN 2% OINT 1 GM UNIT DOSE PACKET TOP PRN (00:30)
[2020-12-16] MEDS ORDERED: NITROGLYCERIN 2% OINT 1 GM UNIT DOSE PACKET ONE (00:44)
[2020-12-16] MEDS: PIPERACILLIN/TAZO 4.5 GM/NS 100 ML IV SCH ×2 (02:15)
[2020-12-16] MEDS: inSUlin ASPART (NovoLOG) 1 UNIT/0.01 ML (CHARGE PER UNIT) SC SCH ×4 (05:41→21:04)
[2020-12-16] MEDS: ENOXAPARIN 40 MG/0.4 ML (LOVENOX) SYR SC SCH (05:59)
[2020-12-16] MEDS: cloNIDine 0.1 MG (CATAPRES) TAB PO SCH ×3 (05:59→20:23)
[2020-12-16] MEDS: ISOSORBIDE MONONITRATE 60 MG (IMDUR) TAB PO SCH (06:00)
[2020-12-16] MEDS: meTOprolol SUCCINATE 100 MG (TOPROL XL) TAB PO SCH (06:00)
[2020-12-16 06:18] LABS: HEMOGLOBIN 12.9 g/dL (13.3-17.7); MEAN PLATELET VOLUME 10.1 fL (9.0-12.2); WHITE BLOOD COUNT 10.1 10^3/uL (4.3-11.0)
[2020-12-16 06:39] LABS: POTASSIUM 4.5 MMOL/L (3.6-5.0)
[2020-12-16 06:44] LABS: CREATININE SERUM 1.77 MG/DL (0.60-1.30)
[2020-12-16] MEDS: PANTOPRAZOLE 40 MG (PROTONIX) TAB PO SCH (09:18)
[2020-12-16] MEDS: FLUTICASONE NASAL SPRAY (FLONASE) 16 GM BTL NS SCH (09:18)
[2020-12-16] MEDS: FINASTERIDE (PROSCAR) 5 MG TAB PO SCH (09:18)
[2020-12-16] MEDS: ACETAMINOPHEN 325 MG TABLET PO PRN ×2 (09:36→17:51)
--- NOTE | 2020-12-16 10:24 | Progress Note - Hospitalist ---
Subjective HPI/CC On Admission Date Seen by Provider: Dec 16, 2020 Time Seen by Provider: 10:16 Pt is an 80yoCM with a PMH of IDDMII, HTN who presented to the ER due to adbominal pain, He states it started abruptly yesterday morning. He states that he started feeling poorly two days ago thought and was convinced that he had COVID as his sisters symptoms were similar. 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 He has severe nausea and vomiting. He denies diarrhea. He had a BM yesterday that was hard. He reports intermittent fevers as well. His pain is worse in his LLQ. This morning he reports that he is feeling better but still has some mild pain in LLQ. Subjective/Events-last exam Pt reports still having pain in his abdomen though this is controlled with oral medications. Discussed plan to DC home with home health today as discussed yesterday and he is refusing. He states he is too weak and not safe to go home. Informed him the other option is a long term facility and that he cannot remain in the hospital without a hospital need. Yesterday we had discussed selecting a correction but he states he was not told that and I must be thinking of another patient. He then states he hasn't picked one because he's here in the hospital. I provided him with a patient choice sheet with phone numbers and medicare star ratings on it so he could start the process of selecting a NH. He agrees to NH placement reluctantly. This conversation occurred in front of his nurse Jose as well. He also complains of constipation. Offered oral laxative but he states that doesn't work. Offered enema and he does not want to do that. He ultimately agreed with oral laxative. Objective Exam Vital Signs Vital Signs Date Time Temp Pulse Resp B/P (MAP) Pulse Ox O2 Delivery O2 Flow Rate FiO2 12/16/20 08:18 36.0 75 20 169/92 (117) 97 Room Air 12/12/20 08:00 92.00 Capillary Refill : Less Than 3 SecondsLess Than 3 Seconds General Appearance: No Apparent Distress, WD/WN Results/Procedures Lab Laboratory Tests 12/16/20 06:05 Patient resulted labs reviewed. Imaging: Reviewed Imaging Report Assessment/Plan Assessment and Plan Assess & Plan/Chief Complaint Sepsis from acute diverticulitis, present on arrival- now resolved CT with acute diverticulitis Switch to Augmentin from Zosyn Continue pain regimen, controlled with orals Surgery consulted, appreciate recs Tolerating soft diet COVID19 Not hypoxic Discussed natural course of COVID No indication for remdesivir, decadron, or convalescent plasma since not hypoxic and only admitted for diverticulitis IDDMII SSI Decrease Levemir as blood sugar 95 this AM HTN Continue home meds BPH Continue flomax and proscar Debility Continue PT/OT health services administrator consulted, appreciate their assistance Refusing DC home with home health, agreeable to SNF on Friday DVT ppx: Lovenox Diagnosis/Problems Diagnosis/Problems (1) COVID-19 virus infection Status: Acute (2) Diverticulitis of intestine Status: Acute Qualifiers: Diverticulitis site: large intestine Diverticulitis bleeding: without bleeding Diverticulitis complication: without perforation or abscess Qualified Codes: K57.32 - Diverticulitis of large intestine without perforation or abscess without bleeding (3) Severe sepsis Status: Acute (4) Uncontrolled hypertension Status: Acute (5) IDDM (insulin dependent diabetes mellitus) Status: Acute (6) Chronic renal failure Status: Acute Qualifiers: Chronic kidney disease stage: stage 3 (moderate) 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
[2020-12-16] MEDS ORDERED: FLEET ENEMA ADULT 1 EA BTL PR PRN (10:30)
[2020-12-16] MEDS: BISACODYL 10 MG SUPP (DULCOLAX) PR PRN (12:47)
--- NOTE | 2020-12-16 16:21 | Physical Therapy Daily Note ---
PT Daily Note-Current Subjective Pt reports he hopes to go to the snf on 12/18/20 for a week or two to build some more strength prior to going home alone. Mental Status Patient Orientation: Normal For Age Transfers SCALE: Activities may be completed with or without assistive devices. 5-Wjtcbicdhe-zmyxgzg completes the activity by him/herself with no assistance from a helper. 5-Set-up or Clean-up Assistance-helper sets up or cleans up; patient completes activity. [place] assists only prior to or following the activity. 4-Supervision or Touching Assistance-helper provides verbal cues and/or touching/steadying and/or contact guard assistance as patient completes activity. Assistance may be provided throughout the activity or intermittently. 3-Partial/Moderate Assistance-helper does LESS THAN HALF the effort. [place] lifts, holds or supports trunk or limbs, but provides less than half the effort. 2-Substantial/Maximal Assistance-helper does MORE THAN HALF the effort. [place] lifts or holds trunk or limbs and provides more than half the effort. 2-Xhbiitozy-yofgni does ALL the effort. Patient does none of the effort to complete the activity. Or, the assistance of 2 or more helpers is required for the patient to complete the activity. If activity was not attempted, code reason: 7-Patient Refused. 9-Not Applicable-not attempted and the patient did not perform the activity before the current illness, exacerbation or injury. 10-Not Attempted due to Environmental Limitations-(lack of equipment, weather restraints, etc.). 88-Not Attempted due to Medical Conditions or Safety Concerns. Bed mobility (I) Gait Training Ambulate 150ft in room, making multiple left and right hand turns. CGA due to patient's impaired vision. No LOB. PT Care Home Goals Care Home Goals PT Cat Wagon Operator Goals Time Frame: Dec 20, 2020 Roll Left & Right (QC): 6 Sit to Lying (QC): 6 Lying-Sitting on Side/Bed(QC): 6 Sit to Stand (QC): 6 Chair/Azc-wn-Kilys Xfer(QC): 6 Walk 10 feet (QC): 6 Walk 50ft with 2 Turns (QC): 6 PT Plan Treatment/Plan Treatment Plan: Continue Plan of Care Treatment Plan: Bed Mobility, Education, Functional Activity Shannon, Functional Strength, Gait, Safety, Therapeutic Exercise, Transfers Treatment Duration: Dec 20, 2020 Frequency: 6 times per week Estimated Hrs Per Day: .25 hour per day Patient and/or Family Agrees t: Yes Time/GCodes Time In: 1320 Time Out: 1345 Total Billed Treatment Time: 15 Total Billed Treatment visit, gait 15min DARY LOZANO PT Dec 16, 2020 16:21
[2020-12-16] MEDS: TAMSULOSIN 0.4 MG (FLOMAX) CAP PO SCH (17:50)
[2020-12-16] MEDS: AUGMENTIN 875 MG TAB (AMOXICILLIN/CLAVULANATE) PO SCH (17:50)
[2020-12-16] MEDS ORDERED: hydrALAZINE (APESOLINE) 20 MG/ML VIAL ONE (20:54)
[2020-12-16] MEDS: hydrALAZINE (APESOLINE) 20 MG/ML VIAL IV PRN (21:04)
[2020-12-17] VITALS (8 sets, daily range): BP systolic 124–205; BP diastolic 63–109
[2020-12-17] MEDS: hydrALAZINE (APESOLINE) 20 MG/ML VIAL IV PRN (03:47)
[2020-12-17] MEDS: NITROGLYCERIN 2% OINT 1 GM UNIT DOSE PACKET TOP PRN (04:59)
[2020-12-17] MEDS: ENOXAPARIN 40 MG/0.4 ML (LOVENOX) SYR SC SCH (06:16)
[2020-12-17] MEDS: inSUlin ASPART (NovoLOG) 1 UNIT/0.01 ML (CHARGE PER UNIT) SC SCH ×4 (06:16→20:09)
[2020-12-17] MEDS: ACETAMINOPHEN 325 MG TABLET PO PRN ×2 (06:17→20:25)
[2020-12-17] MEDS: ISOSORBIDE MONONITRATE 60 MG (IMDUR) TAB PO SCH (06:27)
[2020-12-17] MEDS: cloNIDine 0.1 MG (CATAPRES) TAB PO SCH ×4 (06:27→20:24)
[2020-12-17] MEDS: meTOprolol SUCCINATE 100 MG (TOPROL XL) TAB PO SCH (06:28)
[2020-12-17] MEDS ORDERED: hydrALAZINE (APESOLINE) 20 MG/ML VIAL IV PRN (08:45)
[2020-12-17] MEDS: FINASTERIDE (PROSCAR) 5 MG TAB PO SCH (08:54)
[2020-12-17] MEDS: AUGMENTIN 875 MG TAB (AMOXICILLIN/CLAVULANATE) PO SCH ×2 (08:54→17:21)
[2020-12-17] MEDS: FLUTICASONE NASAL SPRAY (FLONASE) 16 GM BTL NS SCH (08:54)
[2020-12-17] MEDS: amLODIPine 5 MG (NORVASC) TAB PO SCH (09:15)
[2020-12-17] MEDS: PANTOPRAZOLE 40 MG (PROTONIX) TAB PO SCH (09:15)
--- NOTE | 2020-12-17 09:17 | Progress Note - Hospitalist ---
Subjective HPI/CC On Admission Date Seen by Provider: Dec 17, 2020 Time Seen by Provider: 09:15 Pt is an 80yoCM with a PMH of IDDMII, HTN who presented to the ER due to adbominal pain, He states it started abruptly yesterday morning. He states that he started feeling poorly two days ago thought and was convinced that he had COVID as his sisters symptoms were similar. 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 He has severe nausea and vomiting. He denies diarrhea. He had a BM yesterday that was hard. He reports intermittent fevers as well. His pain is worse in his LLQ. This morning he reports that he is feeling better but still has some mild pain in LLQ. Subjective/Events-last exam Pt reports having a rough night due to urinary retention. He states he was up a lot due to difficulty urinating and that his blood pressure was up. He did have a BM yesterday after a suppository. He has selected [facility] for her preferred halfway. Objective Exam Vital Signs Vital Signs Date Time Temp Pulse Resp B/P (MAP) Pulse Ox O2 Delivery O2 Flow Rate FiO2 12/17/20 07:57 36.3 94 18 142/83 (102) 95 Room Air 12/16/20 08:00 92.00 Capillary Refill : Less Than 3 SecondsLess Than 3 Seconds General Appearance: No Apparent Distress, WD/WN, Chronically ill Respiratory: Lungs Clear, No Respiratory Distress Cardiovascular: Regular Rate, Rhythm, No Murmur Neurologic/Psychiatric: Alert, Oriented x3 Results/Procedures Lab Patient resulted labs reviewed. Imaging: Reviewed Imaging Report Assessment/Plan Assessment and Plan Assess & Plan/Chief Complaint Sepsis from acute diverticulitis, present on arrival- now resolved CT with acute diverticulitis Continue Augmentin Continue pain regimen, controlled with orals Surgery consulted, appreciate recs Tolerating soft diet COVID19 Not hypoxic Discussed natural course of COVID No indication for remdesivir, decadron, or convalescent plasma since not hypoxic and only admitted for diverticulitis On Day 9 of symptoms and doing well. IDDMII SSI Levemir 20 U has kept his BS under controll HTN Continue home meds- was very elevated yesterday Increase clonidine and add amlodipine BPH Continue flomax and proscar consider Urology consult if still has issues with hesitancy Debility Continue PT/OT donor services coordinator consulted, appreciate their assistance Refusing DC home with home health, agreeable to SNF on Friday, selected [facility] DVT ppx: Lovenox Diagnosis/Problems Diagnosis/Problems (1) COVID-19 virus infection Status: Acute (2) Diverticulitis of intestine Status: Acute Qualifiers: Diverticulitis site: large intestine Diverticulitis bleeding: without bleeding Diverticulitis complication: without perforation or abscess Qualified Codes: K57.32 - Diverticulitis of large intestine without perforation or abscess without bleeding (3) Severe sepsis Status: Acute (4) Uncontrolled hypertension Status: Acute (5) IDDM (insulin dependent diabetes mellitus) Status: Acute (6) Chronic renal failure Status: Acute Qualifiers: Chronic kidney disease stage: stage 3 (moderate) 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
[2020-12-17] MEDS: TAMSULOSIN 0.4 MG (FLOMAX) CAP PO SCH (17:21)
[2020-12-18] VITALS: BP 140/69
[2020-12-18 04:00] VITALS: BP 140/82
[2020-12-18] MEDS: inSUlin ASPART (NovoLOG) 1 UNIT/0.01 ML (CHARGE PER UNIT) SC SCH ×4 (06:39→20:45)
[2020-12-18] MEDS: ENOXAPARIN 40 MG/0.4 ML (LOVENOX) SYR SC SCH (06:39)
[2020-12-18 08:00] VITALS: BP 141/75
[2020-12-18] MEDS: FLUTICASONE NASAL SPRAY (FLONASE) 16 GM BTL NS SCH (09:45)
[2020-12-18] MEDS: PANTOPRAZOLE 40 MG (PROTONIX) TAB PO SCH (09:45)
[2020-12-18] MEDS: ISOSORBIDE MONONITRATE 60 MG (IMDUR) TAB PO SCH (09:45)
[2020-12-18] MEDS: FINASTERIDE (PROSCAR) 5 MG TAB PO SCH (09:45)
[2020-12-18] MEDS: AUGMENTIN 875 MG TAB (AMOXICILLIN/CLAVULANATE) PO SCH ×2 (09:45→17:49)
[2020-12-18] MEDS: cloNIDine 0.1 MG (CATAPRES) TAB PO SCH ×3 (09:45→21:30)
[2020-12-18] MEDS: amLODIPine 5 MG (NORVASC) TAB PO SCH (09:45)
[2020-12-18] MEDS: meTOprolol SUCCINATE 100 MG (TOPROL XL) TAB PO SCH (09:45)
[2020-12-18 12:00] VITALS: BP 137/68
--- NOTE | 2020-12-18 13:58 | Physical Therapy Daily Note ---
PT Daily Note-Current Subjective Patient agrees to PT. He reports he is up independently in room. Mental Status Patient Orientation: Normal For Age Transfers SCALE: Activities may be completed with or without assistive devices. 6-Ztjdcziiuj-vwzavha completes the activity by him/herself with no assistance from a helper. 5-Set-up or Clean-up Assistance-helper sets up or cleans up; patient completes activity. [place] assists only prior to or following the activity. 4-Supervision or Touching Assistance-helper provides verbal cues and/or touching/steadying and/or contact guard assistance as patient completes activity. Assistance may be provided throughout the activity or intermittently. 3-Partial/Moderate Assistance-helper does LESS THAN HALF the effort. [place] lifts, holds or supports trunk or limbs, but provides less than half the effort. 2-Substantial/Maximal Assistance-helper does MORE THAN HALF the effort. [place] lifts or holds trunk or limbs and provides more than half the effort. 7-Ketqjedyv-ppfmhe does ALL the effort. Patient does none of the effort to complete the activity. Or, the assistance of 2 or more helpers is required for the patient to complete the activity. If activity was not attempted, code reason: 7-Patient Refused. 9-Not Applicable-not attempted and the patient did not perform the activity before the current illness, exacerbation or injury. 10-Not Attempted due to Environmental Limitations-(lack of equipment, weather restraints, etc.). 88-Not Attempted due to Medical Conditions or Safety Concerns. Sit to Lying (QC): 6 Lying to Sitting/Side of Bed(Q: 6 Sit to Stand (QC): 6 Gait Training Does the Patient Walk?: Yes Distance: 180' Walk 10 feet (QC): 5 Walk 50 ft with 2 Turns(QC): 5 Walk 150 ft (QC): 5 Gait Assistive Device: FWW safe and functional with no deviation Assessment Patient did cease treatment stating, "I'm done and I don't care if you're not. I've done enough and I'm going back to bed." Patient is currently at [facility] with gross motor skills. PT to dismiss patient from services at this time. RN notified. PT Digester Cook Goals Digester Cook Goals PT Halfway Goals Time Frame: Dec 20, 2020 Roll Left & Right (QC): 6 Sit to Lying (QC): 6 Lying-Sitting on Side/Bed(QC): 6 Sit to Stand (QC): 6 Chair/Xni-us-Fvgrx Xfer(QC): 6 Walk 10 feet (QC): 6 Walk 50ft with 2 Turns (QC): 6 PT Plan Treatment/Plan Treatment Plan: Discontinue PT Treatment Plan: Bed Mobility, Education, Functional Activity Shannon, Functional Strength, Gait, Safety, Therapeutic Exercise, Transfers Treatment Duration: Dec 20, 2020 Frequency: 6 times per week Estimated Hrs Per Day: .25 hour per day Patient and/or Family Agrees t: Yes Time/GCodes Time In: 1316 Time Out: 1330 Total Billed Treatment Time: 14 Total Billed Treatment 1 visit FA 14 min RANJITH FIERRO PT Dec 18, 2020 13:58
--- NOTE | 2020-12-18 15:22 | Progress Note - Hospitalist ---
Subjective HPI/CC On Admission Date Seen by Provider: Dec 18, 2020 Time Seen by Provider: 10:50 Pt is an 80yoCM with a PMH of IDDMII, HTN who presented to the ER due to adbominal pain, He states it started abruptly yesterday morning. He states that he started feeling poorly two days ago thought and was convinced that he had COVID as his sisters symptoms were similar. 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 He has severe nausea and vomiting. He denies diarrhea. He had a BM yesterday that was hard. He reports intermittent fevers as well. His pain is worse in his LLQ. This morning he reports that he is feeling better but still has some mild pain in LLQ. Subjective/Events-last exam He is feeling better. He still has a bit of abdominal pain. He has no other complaints or concerns. Objective Exam Vital Signs Vital Signs Date Time Temp Pulse Resp B/P (MAP) Pulse Ox O2 Delivery O2 Flow Rate FiO2 12/18/20 12:00 35.6 67 16 137/68 (91) 96 Room Air 12/17/20 08:00 92.00 Capillary Refill : Less Than 3 SecondsLess Than 3 Seconds General Appearance: No Apparent Distress, Obese Respiratory: Lungs Clear, Normal Breath Sounds, No Respiratory Distress Cardiovascular: Regular Rate, Rhythm, No Edema, No Murmur Gastrointestinal: Normal Bowel Sounds, Non Tender, Soft Extremity: Normal Inspection, Non Tender, No Pedal Edema Neurologic/Psychiatric: Alert, Oriented x3, Normal Mood/Affect, Motor Weakness Skin: Normal Color, Warm/Dry Results/Procedures Lab Patient resulted labs reviewed. Imaging: Reviewed Imaging Report Assessment/Plan Assessment and Plan Assess & Plan/Chief Complaint Acute diverticulitis Continue Augmentin COVID-19 Not hypoxic, no medications required IDDMII Levemir Sliding scale HTN Continue antihypertensives BPH Continue flomax and proscar Debility Continue PT/OT network services project manager consulted, appreciate their assistance Likely discharge to [facility] tomorrow DVT ppx: Lovenox Sepsis, resolved Diagnosis/Problems Diagnosis/Problems (1) Diverticulitis of intestine Status: Acute Qualifiers: Diverticulitis site: large intestine Diverticulitis bleeding: without bleeding Diverticulitis complication: without perforation or abscess Qualified Codes: K57.32 - Diverticulitis of large intestine without perforation or abscess without bleeding (2) COVID-19 virus infection Status: Acute (3) Debility Status: Acute MARIO SULLIVAN MD Dec 18, 2020 15:22
[2020-12-18 15:33] VITALS: BP 158/73
[2020-12-18] MEDS: TAMSULOSIN 0.4 MG (FLOMAX) CAP PO SCH (17:48)
[2020-12-18] MEDS: BISACODYL 10 MG SUPP (DULCOLAX) PR PRN (20:12)
[2020-12-18 21:37] VITALS: BP 176/73
[2020-12-19 00:18] VITALS: BP 180/92
[2020-12-19] MEDS: NITROGLYCERIN 2% OINT 1 GM UNIT DOSE PACKET TOP PRN (00:23)
[2020-12-19] MEDS: inSUlin ASPART (NovoLOG) 1 UNIT/0.01 ML (CHARGE PER UNIT) SC SCH ×4 (05:57→20:40)
[2020-12-19] MEDS: ENOXAPARIN 40 MG/0.4 ML (LOVENOX) SYR SC SCH (06:11)
[2020-12-19] MEDS: cloNIDine 0.1 MG (CATAPRES) TAB PO SCH ×3 (08:19→20:39)
[2020-12-19] MEDS: AUGMENTIN 875 MG TAB (AMOXICILLIN/CLAVULANATE) PO SCH ×2 (08:19→18:20)
[2020-12-19] MEDS: FINASTERIDE (PROSCAR) 5 MG TAB PO SCH (08:20)
[2020-12-19] MEDS: CARVEDILOL 12.5 MG (COREG) TABLET PO SCH ×2 (08:20→20:39)
[2020-12-19] MEDS: ISOSORBIDE MONONITRATE 60 MG (IMDUR) TAB PO SCH (08:20)
[2020-12-19] MEDS: amLODIPine 10 MG (NORVASC) TAB PO SCH (08:20)
[2020-12-19] MEDS: PANTOPRAZOLE 40 MG (PROTONIX) TAB PO SCH (08:20)
[2020-12-19 08:28] VITALS: BP 191/107
[2020-12-19] MEDS: ACETAMINOPHEN 325 MG TABLET PO PRN (08:30)
[2020-12-19] MEDS: FLUTICASONE NASAL SPRAY (FLONASE) 16 GM BTL NS SCH (09:00)
[2020-12-19 09:23] VITALS: BP 139/70
[2020-12-19 11:24] VITALS: BP 126/64
[2020-12-19] MEDS ORDERED: CARV12.53 PO (12:39)
[2020-12-19] MEDS ORDERED: AMLO-251 PO (12:39)
[2020-12-19] MEDS ORDERED: CLN.1T PO (12:39)
[2020-12-19] MEDS ORDERED: FINA5TAB6 PO (12:39)
[2020-12-19] MEDS ORDERED: AMOX1TAB12 PO (12:39)
[2020-12-19] MEDS ORDERED: MILK OF MAGNESIA 400 MG/5 ML 30 ML UDC PO NR (14:30)
[2020-12-19] MEDS ORDERED: polyethylene glycoL POWDER 17 GM (MIRALAX) PACK PO NR (14:30)
[2020-12-19] MEDS ORDERED: DOCUSATE SODIUM 100 MG (COLACE) CAP PO NR (14:30)
[2020-12-19 15:29] VITALS: BP 127/66
[2020-12-19] MEDS: TAMSULOSIN 0.4 MG (FLOMAX) CAP PO SCH (18:13)
--- NOTE | 2020-12-19 20:21 | Progress Note - Hospitalist ---
Subjective HPI/CC On Admission Date Seen by Provider: Dec 19, 2020 Time Seen by Provider: 12:30 Pt is an 80yoCM with a PMH of IDDMII, HTN who presented to the ER due to adbominal pain, He states it started abruptly yesterday morning. He states that he started feeling poorly two days ago thought and was convinced that he had COVID as his sisters symptoms were similar. 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 He has severe nausea and vomiting. He denies diarrhea. He had a BM yesterday that was hard. He reports intermittent fevers as well. His pain is worse in his LLQ. This morning he reports that he is feeling better but still has some mild pain in LLQ. Subjective/Events-last exam He is concerned about his blood pressure being elevated last night. He is agitated, demanding, and unreasonable. He is also concerned about constipation and wants additional medication support. He has no other complaints. Objective Exam Vital Signs Vital Signs Date Time Temp Pulse Resp B/P (MAP) Pulse Ox O2 Delivery O2 Flow Rate FiO2 12/19/20 15:29 36.3 85 18 127/66 (86) 93 Room Air 12/17/20 08:00 92.00 Capillary Refill : Less Than 3 SecondsLess Than 3 Seconds General Appearance: No Apparent Distress, Obese Respiratory: Lungs Clear, Normal Breath Sounds, No Respiratory Distress Cardiovascular: Regular Rate, Rhythm, No Edema, No Murmur Gastrointestinal: Normal Bowel Sounds, Non Tender, Soft Extremity: Normal Inspection, Non Tender, No Pedal Edema Neurologic/Psychiatric: Alert, Oriented x3, No Motor/Sensory Deficits, Other (agitated) Skin: Normal Color, Warm/Dry Results/Procedures Lab Patient resulted labs reviewed. Imaging: Reviewed Imaging Report Assessment/Plan Assessment and Plan Assess & Plan/Chief Complaint Acute diverticulitis Continue Augmentin COVID-19 Not hypoxic, no medications required IDDMII Levemir Sliding scale HTN Increase Amlodipine Transition from Metoprolol to Coreg Increase Clonidine Constipation Increase bowel regimen BPH Continue flomax and proscar Debility Continue PT/OT oil well services superintendent consulted, appreciate their assistance Insurance denied prison admission Likely discharge home tomorrow, possibly with home health DVT ppx: Lovenox Sepsis, resolved Diagnosis/Problems Diagnosis/Problems (1) Diverticulitis of intestine Status: Acute Qualifiers: Diverticulitis site: large intestine Diverticulitis bleeding: without bleeding Diverticulitis complication: without perforation or abscess Qualified Codes: K57.32 - Diverticulitis of large intestine without perforation or abscess without bleeding (2) COVID-19 virus infection Status: Acute (3) Debility Status: Acute (4) HTN (hypertension) Status: Acute Qualifiers: Hypertension type: essential hypertension Qualified Codes: I10 - Essential (primary) hypertension (5) Constipation Status: Acute MARIO SULLIVAN MD Dec 19, 2020 20:21
[2020-12-19 20:36] VITALS: BP 152/80
[2020-12-19] MEDS: DOCUSATE SODIUM 100 MG (COLACE) CAP PO SCH (20:38)
[2020-12-19] MEDS ORDERED: polyethylene glycoL POWDER 17 GM (MIRALAX) PACK PO SCH (21:00)
[2020-12-20] VITALS: BP 150/79
[2020-12-20] MEDS: inSUlin ASPART (NovoLOG) 1 UNIT/0.01 ML (CHARGE PER UNIT) SC SCH ×2 (06:14→11:27)
[2020-12-20 06:16] VITALS: BP 172/80
[2020-12-20] MEDS: ACETAMINOPHEN 325 MG TABLET PO PRN (06:26)
[2020-12-20] MEDS: ENOXAPARIN 40 MG/0.4 ML (LOVENOX) SYR SC SCH (06:27)
[2020-12-20 08:56] VITALS: BP 190/84
[2020-12-20] MEDS: AUGMENTIN 875 MG TAB (AMOXICILLIN/CLAVULANATE) PO SCH (08:57)
[2020-12-20] MEDS: amLODIPine 10 MG (NORVASC) TAB PO SCH (08:58)
[2020-12-20] MEDS: PANTOPRAZOLE 40 MG (PROTONIX) TAB PO SCH (08:58)
[2020-12-20] MEDS: ISOSORBIDE MONONITRATE 60 MG (IMDUR) TAB PO SCH (08:58)
[2020-12-20] MEDS: CARVEDILOL 12.5 MG (COREG) TABLET PO SCH (08:58)
[2020-12-20] MEDS: cloNIDine 0.1 MG (CATAPRES) TAB PO SCH ×2 (08:58→12:55)
[2020-12-20] MEDS: DOCUSATE SODIUM 100 MG (COLACE) CAP PO SCH (08:58)
[2020-12-20] MEDS: FINASTERIDE (PROSCAR) 5 MG TAB PO SCH (08:58)
[2020-12-20] MEDS: FLUTICASONE NASAL SPRAY (FLONASE) 16 GM BTL NS SCH (09:00)
[2020-12-20 11:42] VITALS: BP 104/58
[2020-12-20] MEDS ORDERED: CLON0.3T PO ×2 (12:03→14:51)
[2020-12-20 12:56] VITALS: BP 118/65
--- NOTE | 2020-12-20 14:55 | D/C HH Face to Face Order ---
D/C Face to Face Orders Reconcile Patient Problems Problems Reviewed?: Yes Instructions for Patient Via [employer], Patient Instructions/FollowUp: Take medications as prescribed. Follow up with your PCP. Return with worsening abdominal pain or if you feel like you are getting worse. Physician to follow Patient: Leticia Discharge Diet for Home: Low Sodium Diet Patient Data-Allergies,Ht & Wt Patient Allergies: Coded Allergies: Sulfa (Sulfonamide Antibiotics) (Unverified Allergy, Unknown, 10/10/19) Height (Feet): 5 Height (Inches): 7.00 Weight (Pounds): 200 Home Health Need/Face to Face Date of Face to Face: Dec 20, 2020 Clinical Findings: Generalized weakness and fatigue, Instability, Muscle weakness I have seen Pt [id number]: Yes Discharged To: Home Diagnosis/Conditions: Diverticulitis COVID Debility Problems/Diagnosis/Condition: (1) Diverticulitis of intestine (2) COVID-19 virus infection (3) Debility Patient is Homebound due to: Ceasar fall risk due to instabilty, Muscle weakness Homebound Status Due to the above stated illness, injury or surgical procedure (medical condition or diagnosis) and associated clinical findings, the patient is homebound because of his/her inability to leave home except with aid of a supportive device and/or person AND leaving the home requires a considerable and taxing effort or is medically contraindicated. Pt req the following assistanc: Aid of another person, [facility] Nursing Orders Home Health Services Order: Nursing Services, Roofing Layer-Evaluate & Treat, Physical Therapy-Evaluate & Treat Home Health Infusion Therapy Line Start Date: Dec 11, 2020 Therapy Orders Therapy Orders: OT (must have SN or PT order), Physical Therapy Therapy Specific Orders: Eval assistive deivces, Teach enviro modifications/safety, Gait training, Increase strength/endurance Certify Stmt I certify that this patient is under my care and that I, a nurse practitioner or a physician; a assistant oceanographer working with me, had a face to face encounter that - meets the physician face to face encounter requirements with this patient as dated. MARIO SULLIVAN MD Dec 20, 2020 14:55
[2020-12-20 16:30] VITALS: BP 118/65
== END 2020-12-20 16:30 | disposition home health service (06) | DRG 871 ==
LOC: EDUNIT# 23:59 → ER 12-11 → 4TH 12-11 04:25
PROVIDERS: ADMIT Internal Medicine; ATTEND Internal Medicine
DX: A41.9 Sepsis, unspecified organism (principal); U07.1 COVID-19; K57.32 Diverticulitis of large intestine without perforation or abscess without bleeding; K42.0 Umbilical hernia with obstruction, without gangrene; N40.1 Benign prostatic hyperplasia with lower urinary tract symptoms; R33.8 Other retention of urine; R35.0 Frequency of micturition; E11.42 Type 2 diabetes mellitus with diabetic polyneuropathy; K80.20 Calculus of gallbladder without cholecystitis without obstruction; I25.10 Atherosclerotic heart disease of native coronary artery without angina pectoris; I12.9 Hypertensive chronic kidney disease with stage 1 through stage 4 chronic kidney disease, or unspecified chronic kidney disease; E11.22 Type 2 diabetes mellitus with diabetic chronic kidney disease; N18.30 Chronic kidney disease, stage 3 unspecified; K59.00 Constipation, unspecified; Z79.4 Long term (current) use of insulin; E78.00 Pure hypercholesterolemia, unspecified; Z91.19 Patient's noncompliance with other medical treatment and regimen; I25.2 Old myocardial infarction; Z87.891 Personal history of nicotine dependence; Z87.01 Personal history of pneumonia (recurrent); Z79.2 Long term (current) use of antibiotics; Z79.82 Long term (current) use of aspirin; Z88.2 Allergy status to sulfonamides; Z82.49 Family history of ischemic heart disease and other diseases of the circulatory system
CPT/HCPCS: 36415; 51702; 71045; 71250; 74176; 80048; 80053; 81000; 82150; 82962; 83605; 83615; 83690; 83735; 84145; 85007; 85027; 85379; 85610; 85652; 85730; 86141; 87040; 87077; 87088; 87635; 87804; 93005; 93041; 94664; 94760; 96361; 96365; 96375

== ENCOUNTER 2021-04-26 02:25 | Emergency (ER) | payer MEDICARE ==
[~2021-04-26] VITALS: Ht 175.2 cm; Wt 110.0 kg
[~2021-04-26 02:25] MED LIST changes: +AMLO-251 PO; +AMOX1TAB12 PO; +CARV12.53 PO; +CLN.1T PO; +CLON0.3T PO; +FINA5TAB6 PO; +FLUT16SP22 NSEACH; +OMEP40CA6 PO; +TRAM50TA3 PO
[2021-04-26] MEDS ORDERED: LOSARTAN 50 MG (COZAAR) TAB PO ONE (04:00)
[2021-04-26] MEDS ORDERED: cloNIDine 0.2 MG (CATAPRES) TAB PO ONE (04:00)
--- NOTE | 2021-04-26 04:58 | ED General ---
General Chief Complaint: Glucose Problems Stated Complaint: DIABETES ISSUES,PT WANTS BLOOD SUGAR CHECKED Allergies and Home Medications Allergies Coded Allergies: Sulfa (Sulfonamide Antibiotics) (Unverified Allergy, Unknown, 10/10/19) Home Medications Amlodipine Besylate 10 Mg Tablet, 10 MG PO DAILY Prescribed by: MARIO SULLIVAN on 12/19/20 1239 Amoxicillin/Potassium Clav 1 Each Tablet, 875 MG PO BID WITH MEALS Prescribed by: MARIO SULLIVAN on 12/19/20 1239 Carvedilol 12.5 Mg Tablet, 25 MG PO BID Prescribed by: MARIO SULLIVAN on 12/19/20 1239 Clonidine HCl 0.3 Mg Tablet, 0.3 MG PO BID Prescribed by: MARIO SULLIVAN on 12/20/20 1451 Finasteride 5 Mg Tablet, 5 MG PO DAILY Prescribed by: MARIO SULLIVAN on 12/19/20 1239 Fluticasone Propionate 16 Gm [place].susp, 1 SPRAY NSEACH DAILY, (Reported) Furosemide 40 Mg Tablet, 40 MG PO DAILY, (Reported) Insulin Detemir 100 Unit/1 Ml Insuln.pen, 25 UNIT SQ BID, (Reported) Isosorbide Mononitrate 120 Mg Tab.er.24h, 120 MG PO DAILY, (Reported) Omeprazole 40 Mg Capsule.dr, 40 MG PO DAILY, (Reported) TAKE 30 MINUTES AFTER BREAKFAST Tamsulosin HCl 0.4 Mg Cap, 0.4 MG PO DAILY, (Reported) Tramadol HCl 50 Mg Tablet, 50 MG PO TID, (Reported) Past Vchysmf-Okitzy-Uhmbxv Hx Patient Social History Alcohol Use: Denies Use Type Used: Cigarettes Former Smoker, Quit: Jun 22, 1968 2nd Hand Smoke Exposure: No Recent Hopitalizations: No Immunizations Up To Date Tetanus Booster (TDap): Less than 5yrs Date of Pneumonia Vaccine: Oct 10, 2013 Date of Influenza Vaccine: Sep 10, 2020 Seasonal Allergies Seasonal Allergies: No Past Medical History Surgeries: Yes (CARDIAC CATH --NO INTERVENTION) Cardiac Respiratory: Yes (Pneumonia patient states "when i was 1") Pneumonia Cardiac: Yes (CARDIAC CATH-NO INTERVENTION;NSTEMI 10/2019;[facility] RIGHT LEG EDEMA- US NEGATIVE) Chronic Edema/Swelling, Coronary Artery Disease, Heart Attack, High Cholesterol, Hypertension Neurological: Yes (PERIPHERAL NEUROPATHY) Neuropathy Genitourinary: Yes (Chronic kidney disease stage 3 ; GFR TYPICALLY IN 30'S) Prostate Problems, Renal Failure Gastrointestinal: Yes (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) Gall Bladder Disease Musculoskeletal: No Endocrine: Yes (SELF MEDICATES WITH HIS INSULIN; OBESITY) Diabetes, Insulin dep HEENT: No (patient wears glasses ) Loss of Vision: Denies Hearing Impairment: Denies Cancer: No Psychosocial: No Integumentary: No Blood Disorders: No Family Medical History Cardiovascular disease 19 FATHER Hypertension 19 FATHER CAD Over 55 Years Old, Hypertension PAST SURGICAL HISTORY: -CARDIAC CATH 11/09/19--DIFFUSELY CALCIFIED CORONARY ARTERIES, SMALL VESSEL DISEASE, NO INTERVENTION - Physical Exam Vital Signs Capillary Refill : Height, Weight, BMI Height: 5'7.00" Weight: 200lbs. oz. 90.266570lt; 37.87 BMI Method:Estimated Progress/Results/Core Measures Suspected Sepsis SIRS Temperature: Pulse: Respiratory Rate: Blood Pressure / Mean: Results/Orders Lab Results Laboratory Tests Test 04/26/21 03:58 Range/Units Glucometer 175 H 70-110 MG/DL My Orders Orders - NOREEN CORREA DO Accucheck Stat ONCE (04/26/21 03:40) Clonidine Tablet (Catapres Tablet) (04/26/21 04:00) Losartan Tablet (Cozaar Tablet) (04/26/21 04:00) Medications Given in ED Current Medications Medications Dose Ordered Sig/Laya Route Start Time Stop Time Status Last Admin Dose Admin Clonidine HCl 0.2 mg ONCE ONCE PO 04/26/21 04:00 04/26/21 04:01 DC 04/26/21 04:26 0.2 MG Losartan Potassium 50 mg ONCE ONCE PO 04/26/21 04:00 04/26/21 04:01 DC 04/26/21 04:26 50 MG Vital Signs/I&O Capillary Refill : Point of Care Testing Finger Stick Blood Glucose: 175 Blood Glucose Action Taken: doc notified Departure Impression Primary Impression: IDDM (insulin dependent diabetes mellitus) Additional Impression: HTN (hypertension) Disposition: HOME, SELF-CARE Condition: Stable Departure-Patient Inst. Decision time for Depature: 04:55 Referrals: BRADY VERNON MD (PCP/Family) Primary Care Physician Patient Instructions: DIABETES, High Blood Pressure (DC) Add. Discharge Instructions: HOME, REST TAKE YOUR MEDICATIONS PRESCRIBED GET TEST STRIPS FOR GLUCOMETER HAVE YOUR DEXCOM CHECKED TODAY FOLLOW UP WITH DR. VERNON FOR FURTHER CARE--CALL TODAY TO MAKE AN APPOINTMENT All discharge instructions reviewed with patient and/or family. Voiced understanding. NOREEN CORREA DO Apr 26, 2021 04:58
[2021-04-26 05:00] VITALS: BP 167/86
== END 2021-04-26 05:00 | disposition home or self-care (01) ==
LOC: EDUNIT# 02:25 → ER 02:27
DX: E11.9 Type 2 diabetes mellitus without complications (principal); I10 Essential (primary) hypertension; I25.2 Old myocardial infarction; I25.10 Atherosclerotic heart disease of native coronary artery without angina pectoris; Z87.891 Personal history of nicotine dependence; Z79.4 Long term (current) use of insulin
CPT/HCPCS: 82947

== ENCOUNTER 2021-07-12 18:19 | Emergency (ER) | payer MEDICARE ==
--- OUTSIDE RECORDS SUMMARY | 2021-07-12 18:40 | XMS REPORT | Clinical Summary ---
Author Author [facility] Organization [facility] Address Unknown Phone Unavailable Care Team Providers Care Crystalizer Tender Name Role Phone PP Unavailable Allergies Not on File Medications Not on file Active Problems Problem Noted Date Chronic kidney disease 11/03/1999 Macular degeneration (senile) of retina Social History Date Tobacco Use Types Packs/Day Years Used Never Assessed Sex Assigned at Date Recorded Not on file Last Filed Vital Signs Reading Time Taken Comments Vital Sign 156/85 07/05/2020 12:00 AM EDT Blood Pressure - - Pulse - - Temperature - - Respiratory Rate - - Oxygen Saturation - - Inhaled Oxygen Concentration 113 kg (250 lb) 07/05/2020 12:00 AM EDT Weight 175.3 cm (5' 9") 07/05/2020 12:00 AM EDT Height 36.92 07/05/2020 12:00 AM EDT Body Mass Index Plan of Treatment Not on file Results Not on filefrom Last 3 Months
== END 2021-07-12 18:52 | disposition left against medical advice (07) ==
LOC: EDUNIT# 18:19 → ER 18:26
DX: I10 Essential (primary) hypertension (principal)

== ENCOUNTER 2021-07-13 19:53 | Emergency (ER) | payer MEDICARE ==
[~2021-07-13] VITALS: Ht 175.3 cm; Wt 122.5 kg
--- OUTSIDE RECORDS SUMMARY | 2021-07-13 19:57 | XMS REPORT | CCD ---
Author Author Artie aMddox Organization Anny Maddox MD, [facility] Address [address] [place] [address] Phone Care Team Providers Care Boiling Off Winder Name Role Phone Anny Maddox PP Unavailable CCM Unavailable Summary Purpose Interface Exchange Insurance Providers Payer name Policy type / Coverage type Covered democrat ID Effective Begin Date Effective End Date [employer] Medicare Solutions Medicare Part B [id number] Un known Unknown Family history Father Diagnosis Age At Onset Hypertension Unknown Hyperlipidemia Unknown Sister Diagnosis Age At Onset Hypertension Unknown Hyperlipidemia Unknown Runs in the family Diagnosis Age At Onset Colon cancer Unknown Mother Diagnosis Age At Onset Arthritis Unknown Anemia Unknown Brother Diagnosis Age At Onset Hypertension Unknown Alcoholism Unknown Social History Social History Element Codes Description Effective Dates Marital status Unknown 03/19/2021 Number of children Unknown 3 two sons live [facility] and 1 dtr lives in [facility] 03/19/2021 Employment Unknown 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 [employer] 03/19/[address]: 414859901 Never smoker 03/19/[address]: 164009374 Never drinks alcohol 2020 Allergies, Adverse Reactions, Alerts Substance Reaction Codes Entered Date Inactivated Date Status SULFA(SULFONAMIDE ANTIBIOTICS) Unknown 03/19/2021 No In active Date Active Problems Condition Codes Effective Dates Condition Status Essential (primary) hypertension ICD-10: I10 ICD-9: 401.1 03/19/2021 Active 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, with long-term current use of insulin ICD-10: E11.22 ICD-9: 250.40 03/19/2021 Active Chronic kidney disease, stage 3b ICD-10: N18.32 ICD-9: 585.3 04/23/2021 Active Edema of right lower leg due to peripheral venous insu fficiency ICD-10: I87.2 ICD-9: 459.81 03/19/2021 Active Generalized muscle weakness ICD-10: M62.81 ICD-9: 728.87 04/23/2021 Active Localized edema ICD-10: R60.0 03/19/2021 Active Neurologic gait dysfunction ICD-10: R26.9 ICD-9: 781.2 04/23/2021 Active Chronic kidney disease, stage 3b ICD-10: N18.32 03/19/2021 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 ICD-10: Z79.4 03/19/2021 Active Medications Medication Codes Instructions Start Date Stop Date Status Fill Instructions hydralazine 10 mg tablet RxNorm: 394372 Take 1 Tablet(s ) Oral two times a day noon and HS 07/13/2021 08/11/2021 Active finasteride 5 mg tablet RxNorm: 780100 Take 1 Tablet(s) Oral ev harjinder day 05/31/2021 08/28/2021 Active tamsulosin 0.4 mg capsule RxNorm: 568186 Take 1 Capsule(s) Oral every day 05/31/2021 08/28/2021 Active carvedilol 25 mg tablet RxNorm: 914855 Take 1 Tablet(s) Oral tw o times a day 05/18/2021 07/16/2021 Active isosorbide mononitrate ER 60 mg tablet,extended release 24 h r RxNorm: 873780 2 Tablet(s) Oral every day 04/26/2021 04/20/2022 Active hydralazine 10 mg tablet RxNorm: 148072 Take 1 Tablet(s ) Oral every night at bedtime 04/26/2021 05/25/2021 Inactive hydralazine 10 mg tablet RxNorm: 589261 Take 1 Tablet(s ) Oral every night at bedtime 04/26/2021 04/26/2021 Inactive losartan 50 mg tablet RxNorm: 641577 Take 1 Tablet(s) Oral two times a day 04/23/2021 04/17/2022 Active dc amlodipine omeprazole 40 mg capsule,delayed release RxNorm: 273395 Take 1 Capsule(s) Oral every day 04/23/2021 07/21/2021 Active losartan 50 mg tablet RxNorm: 593210 1 Tablet(s) Oral every nig ht at bedtime 04/12/2021 04/22/2021 Inactive dc amlodipine losartan 50 mg tablet RxNorm: 735852 1 Tablet(s) Oral every nig ht at bedtime 04/12/2021 04/11/2021 Inactive clonidine HCl 0.3 mg tablet RxNorm: 316260 1 Tablet(s) Oral two times a day 04/04/2021 08/02/2021 Active Voltaren Arthritis Pain 1 % topical gel RxNorm: 525976 2 Gram(s) Topical four times a day as needed may increase to 4 grams if needed to affected area of pain 03/29/2021 07/26/2021 Active Voltaren Arthritis Pain 1 % topical gel RxNorm: 208101 2 Gram(s) Topical four times a day as needed may increase to 4 grams if needed 03/29/202103/04 Inactive Colace 100 mg capsule RxNorm: 8818868 2 Capsule(s) Oral every day 0 03/19/2021 No Stop Date Active Novolog Flexpen U-100 Insulin aspart 100 unit/mL (3 mL ) subcutaneous RxNorm: 0004320 6-7 Unit(s) Subcutaneous before meals 03/19/2021 No Stop Date Act josh Tradjenta 5 mg tablet RxNorm: 9901230 1 Tablet(s) Oral every day No Stop Date Active furosemide 40 mg tablet RxNorm: 657481 1 Tablet(s) Oral every day 0 03/19/2021 No Stop Date Active Levemir FlexTouch U-100 Insulin 100 unit/mL (3 mL) sub cutaneous pen RxNorm: 411654 25 Unit(s) Subcutaneous two times a day 03/19/2021 No Stop Date A ctive Aspirin Low Dose 81 mg tablet,delayed release RxNorm: 761311 1 Tablet(s) Oral every day 03/19/2021 No Stop Date Active Vitamin D3 125 mcg (5,000 unit) tablet RxNorm: 561761 1 Tablet(s) Oral every day 03/19/2021 No Stop Date Active tamsulosin 0.4 mg capsule RxNorm: 141055 1 Capsule(s) Oral every da y 03/19/2021 05/31/2021 Inactive clonidine HCl 0.3 mg tablet RxNorm: 704308 1 Tablet(s) Oral two times a day 03/19/2021 04/03/2021 Inactive isosorbide mononitrate ER 120 mg tablet,extended release 24 hr RxNorm: 988356 1 Tablet(s) Oral every day 03/19/2021 04/26/2021 Inactive omeprazole 40 mg capsule,delayed release RxNorm: 637066 1 Capsule(s) Oral every day 03/19/2021 04/23/2021 Inactive finasteride 5 mg tablet RxNorm: 729451 1 Tablet(s) Oral every day 0 03/19/2021 05/31/2021 Inactive carvedilol 25 mg tablet RxNorm: 160478 1 Tablet(s) Oral two drake es a day 03/19/2021 05/18/2021 Inactive amlodipine 2.5 mg tablet RxNorm: 653868 1 Tablet(s) Oral every day 03/19/2021 04/09/2021 Inactive PreserVision Lutein oral RxNorm: 106577 oral 03/19/2021 Active Medication Administered No Medication Administered data Immunizations Vaccine Codes Date Status Covid-19 CVX: 01/26/2021 Covid-19 CVX: 207 12/29/2020 Pneumococcal (Adult) CVX: 33 08/03/2020 Results Observation Observation Code Item Item Code Result Date S ervice Location %Hba1C Aqk561 % HbA1c 55343-1 8.2 % 05/28/2021 Unknown %Hba1C Rlb813 Gluc Ave 189 mg/dL 05/28/2021 Unknown Comp Metabolic Kdg578 NA 142 mEq/L 05/28/2021 Unkn own Comp Metabolic Xoa412 K 4.1 mEq/L 05/28/2021 Unkn own Comp Metabolic Wdv938 CL 104 mEq/L 05/28/2021 Unkn own Comp Metabolic Aub437 CO2 29.0 mEq/L 05/28/2021 Unk nown Comp Metabolic Avy909 ANION GAP 13 05/28/2021 Unkn own Comp Metabolic Cmt662 GLUCOSE 169 mg/dL 05/28/2021 Unkn own Comp Metabolic Jgq989 Creat 1.9 mg/dL 05/28/2021 Unkn own Comp Metabolic Jqq635 eGFR 37 ml/min/1.73m2 05/28/20 21 Unknown Comp Metabolic Bby563 BUN 35 mg/dL 05/28/2021 Unkn own Comp Metabolic Qaw237 B/C Ratio 18.7 Ratio 05/28/2021 Unk nown Comp Metabolic Xkd317 CALCIUM 8.7 mg/dL 05/28/2021 Unkn own Comp Metabolic Unr168 ALK PHOS 70 U/L 05/28/2021 Unkn own Comp Metabolic Hyx586 AST(SGOT) 17 U/L 05/28/2021 Unkn own Comp Metabolic Rls576 ALT(SGPT) 14 U/L 05/28/2021 Unkn own Comp Metabolic Ons759 BILI T 0.5 mg/dL 05/28/2021 Unkn own Comp Metabolic Gai457 ALBUMIN 3.4 g/dL 05/28/2021 Unkn own Comp Metabolic Bab240 TPRO 6.8 g/dL 05/28/2021 Unkn own Comp Metabolic Fyo354 GLOB 3.4 g/dL 05/28/2021 Unkn own Comp Metabolic Dpf514 A/G Ratio 1.0 Ratio 05/28/2021 Unkn own Comp Metabolic Oqe486 Osmo 295 mOsmo 05/28/2021 Unkn own Cbc With Differential Ord2 WBC 9.68 K/ul 05/28/20 21 Unknown Cbc With Differential Ord2 RBC 4.85 M/ul 05/28/20 21 Unknown Cbc With Differential Ord2 HGB 14.4 g/dl 05/28/20 21 Unknown Cbc With Differential Ord2 HCT 45.0 % 05/28/20 21 Unknown Cbc With Differential Ord2 Neut% 55.2 % 05/28/20 21 Unknown Cbc With Differential Ord2 MCV 92.8 fl 05/28/20 21 Unknown Cbc With Differential Ord2 Lymph% 29.1 % 05/28/20 21 Unknown Cbc With Differential Ord2 MCH 29.7 pg 05/28/20 21 Unknown Cbc With Differential Ord2 [place]% 12.7 % 05/28/20 21 Unknown Cbc With Differential Ord2 MCHC 32.0 pg 05/28/20 21 Unknown Cbc With Differential Ord2 Eos% 2.8 % 05/28/20 21 Unknown Cbc With Differential Ord2 PLT 240 K/ul 05/28/20 21 Unknown Cbc With Differential Ord2 Baso% 0.2 % 05/28/20 21 Unknown Cbc With Differential Ord2 Neut ABS# 5.34 K/ul 05/28/20 21 Unknown Cbc With Differential Ord2 RDW 14.6 % 05/28/20 21 Unknown Cbc With Differential Ord2 Lymph ABS# 2.82 K/ul 021 Unknown Cbc With Differential Ord2 [place] ABS# 1.2 K/ul 05/28/20 21 Unknown Cbc With Differential Ord2 Eos ABS# 0.3 K/ul 05/28/20 21 Unknown Cbc With Differential Ord2 Baso ABS# 0.0 K/ul 05/28/20 21 Unknown Procedures No Procedures data Vital Signs Date Vital 04/23/2021 Blood Pressure 1: 150/82 Code: 8480-6 Bl ood Pressure 1: 124/80 Code: 8480-6 BMI: 39.9 Code: 68380-6 Heart Rate 1: 81 bpm Height: 5'9" Code: 8302-2 Respiratory Rate: 16 bpm SpO2: 96% Temperature: 36.1 (C) / 96.9 (F) We ight: 270 lbs Code: 57227-2 03/19/2021 Blood Pressure 1: 134/72 Code: 8480-6 BMI: 40.5 Code: 63133-3 Heart Rate 1: 77 bpm Height: 5'9" Code: 8302-2 Respiratory Rate: 18 bpm SpO2: 96% Temperature: 36.7 (C) / 98.0 (F) Weight: 274 lbs 5 oz Code: 23588-5 Functional Status No Functional Status data Reason For Visit Reason For Visit Effective Dates Notes hypertension 04/23/2021 hypertension 03/19/2021 Encounters Encounter Performer Location Codes Date () EST. 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[ICD10: I87.2] [facility] CPT-4: 23336 04/23/2021 ([id number]) OFFICE/OUTPATIENT VISIT NEW Diagnosis: Essential (primary) hypertension[ICD10: I10] Diagnosis: Chronic kidney disease, stage 3b[ICD10: N18.32] Diagnosis: USP (current) use of insulin[ICD10: Z79.4] Diagnosis: 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 chronic kidney disease, with long-term current use of insulin[ICD10: E11.22] Diagnosis: Localized edema[ICD10: R60.0] Diagnosis: Edema of right lower leg due to peripheral venous insufficiency[ICD10: I87.2] [facility] CPT-4: 93462 03/19/2021 Plan of Care Planned Activity Notes Codes Status Date Patient Education: Patient Medication Summary Completed 05/25/2021 Visit Plan: Gait imbalance - referral to via [facility] [place] physical therapy for balance therapy Diabetes mellitus - chronic - pt insulin dependent, has not been managing his diabetes very well with dietary indescretion, pt has been referred to cold saw operator. Peripheral edema - with peripheral vascular disease - improved with elevation and stopping of amlodipine. Hypertension - uncontrolled - the patient's medications have been modified as documented in the visit note. INCREASE losartan to 50mg twice daily. The patient is to check blood pressure readings as an outpatient and either fax, call, or email the readings to the office next week for practitioner to review. The pt is to call for acute concerns. 04/23/2021 Appointment: Anny Maddox WPtel: [address] [place], [place] [id number] (15 min) Moderate 04/23/2021 Patient Education: Patient Medication Summary Completed 04/23/2021 Visit Plan: Chronic renal failure - defe r to Nephrology. Pt has not been following a renal diet - will send referral to cold saw operator for education of patient. Diabetes mellitus - chronic - pt insulin dependent, has not been managing his diabetes very well with dietary indescretion, pt reports that he has not had dietary counseling. Peripheral edema - with peripheral vascular disease - compression, elevate legs, continue with PRN lasix. Hypertension - well controlled - continue with current medications, continue with no added salt diet. Pt has been encouraged to exercise daily. The pt has been advised to call the office if there are any acute concerns about change in blood pressure readings at home. Cerumen impaction - use mineral oil in ears, RTC in a few weeks for clean out of his ears. referral to cold saw operator for swelling, renal disease and diabetes. 03/19/2021 Patient Education: Patient Medication Summary Completed 03/19/2021 Instructions Comment increase the losartan to 50mg twice lenora y . Gait imbalance - referral to [facility] for balance therapy Diabetes mellitus - chronic - pt insulin dependent, has not been managing his diabetes very well with dietary indescretion, pt has been referred to cold saw operator. Peripheral edema - with peripheral vascular disease - improved with elevation and stopping of amlodipine. Hypertension - uncontrolled - the patient's medications have been modified as documented in the visit note. INCREASE losartan to 50mg twice daily. The patient is to check blood pressure readings as an outpatient and either fax, call, or email the readings to the office next week for practitioner to review. The pt is to call for acute concerns. stop the amlodipine - it may be augmenti ng your swelling. . Chronic renal failure - defer to Nephr ology. Pt has not been following a renal diet - will send referral to cold saw operator for education of patient. Diabetes mellitus - chronic - pt insulin dependent, has not been managing his diabetes very well with dietary indescretion, pt reports that he has not had dietary counseling. Peripheral edema - with peripheral vascular disease - compression, elevate legs, continue with PRN lasix. Hypertension - well controlled - continue with current medications, continue with no added salt diet. Pt has been encouraged to exercise daily. The pt has been advised to call the office if there are any acute concerns about change in blood pressure readings at home. Cerumen impaction - use mineral oil in ears, RTC in a few weeks for clean out of his ears. referral to cold saw operator for swelling, renal disease and diabetes. Medical Equipment No Medical Equipment data Health Concerns Section Health Concerns data not found Goals Section Goals data not found Interventions Section Interventions data not found Health Status Evaluations/Outcomes Section Health Status Evaluations/Outcomes data not found Advance Directives No Advance Directive data
--- NOTE | 2021-07-13 20:13 | ED General ---
General Stated Complaint: HIGH BLOOD PRESSURE Source of Information: Patient Exam Limitations: No Limitations History of Present Illness Date Seen by Provider: Jul 13, 2021 Time Seen by Provider: 20:09 Initial Comments To ER with reports of high blood pressure. He states that he feels fine and has no pain or shortness of breath he is just worried about the number. At home it was 204. On arrival here he rechecked it and it was down to 180. He states the same thing happened last night when he had high blood pressure. He came out here to the emergency room but after checking in his blood pressure had fallen so he left. No fevers chills or cough. He states that he takes a few medications for blood pressure but they are only making it worse. He follows with Dr. Maddox. He states that he does feel anxious but this is not hypertension from anxiety. He states there must be another cause because he felt some gurgling in the left lower abdomen though it is without pain. Timing/Duration: 1-2 Days Severity: Moderate Associated Systoms: Denies Symptoms Allergies and Home Medications Allergies Coded Allergies: Sulfa (Sulfonamide Antibiotics) (Unverified Allergy, Unknown, 10/10/19) Patient Home Medication List Home Medication List Reviewed: Yes Amlodipine Besylate (Amlodipine Besylate) 10 Mg Tablet, 10 MG PO DAILY Prescribed by: MARIO SULLIVAN on 12/19/20 1239 Amoxicillin/Potassium Clav (Amox Tr-K Clv 875-125 mg Tab) 1 Each Tablet, 875 MG PO BID WITH MEALS Prescribed by: MARIO SULLIVAN on 12/19/20 1239 Carvedilol (Carvedilol) 12.5 Mg Tablet, 25 MG PO BID Prescribed by: MARIO SULLIVAN on 12/19/20 1239 Clonidine HCl (Clonidine HCl) 0.3 Mg Tablet, 0.3 MG PO BID Prescribed by: MARIO SULLIVAN on 12/20/20 1451 Finasteride (Finasteride) 5 Mg Tablet, 5 MG PO DAILY Prescribed by: MARIO SULLIVAN on 12/19/20 1239 Fluticasone Propionate (Fluticasone Propionate) 16 Gm [place].susp, 1 SPRAY NSEACH DAILY, (Reported) Entered as Reported by: JOSE LUIS HUNTER on 12/11/20 1529 Furosemide (Furosemide) 40 Mg Tablet, 40 MG PO DAILY, (Reported) Entered as Reported by: ALECIA HERRERA on 10/17/18 1427 Insulin Detemir (Levemir Flextouch) 100 Unit/1 Ml Insuln.pen, 25 UNIT SQ BID, (Reported) Entered as Reported by: VALENTINA العلي on 10/11/19 1034 Isosorbide Mononitrate (Isosorbide Mononitrate ER) 120 Mg Tab.er.24h, 120 MG PO DAILY, (Reported) Entered as Reported by: RASHIDA CLAROS on 10/10/19 1238 Omeprazole (Omeprazole) 40 Mg Capsule.dr, 40 MG PO DAILY, (Reported) Entered as Reported by: JOSE LUIS HUNTER on 12/11/20 1529 Tamsulosin HCl (Flomax) 0.4 Mg Cap, 0.4 MG PO DAILY, (Reported) Entered as Reported by: RASHIDA CLAROS on 10/10/19 1238 Tramadol HCl (Tramadol HCl) 50 Mg Tablet, 50 MG PO TID, (Reported) Entered as Reported by: JOSE LUIS HUNTER on 12/11/20 1529 Review of Systems Review of Systems Constitutional: see HPI EENTM: see HPI Respiratory: no symptoms reported Cardiovascular: no symptoms reported Genitourinary: no symptoms reported Musculoskeletal: no symptoms reported Skin: no symptoms reported Psychiatric/Neurological: No Symptoms Reported Hematologic/Lymphatic: No Symptoms Reported Immunological/Allergic: no symptoms reported Past Wkfecrb-Vdejxl-Bhqmqy Hx Immunizations Up To Date Tetanus Booster (TDap): Less than 5yrs Seasonal Allergies Seasonal Allergies: No Past Medical History Surgeries: Yes (CARDIAC CATH --NO INTERVENTION) Cardiac Respiratory: Yes (Pneumonia patient states "when i was 1") Pneumonia Cardiac: Yes (CARDIAC CATH-NO INTERVENTION;NSTEMI 10/2019;[facility] RIGHT LEG EDEMA- US NEGATIVE) Chronic Edema/Swelling, Coronary Artery Disease, Heart Attack, High Cholesterol, Hypertension Neurological: Yes (PERIPHERAL NEUROPATHY) Neuropathy Genitourinary: Yes (Chronic kidney disease stage 3 ; GFR TYPICALLY IN 30'S) Prostate Problems, Renal Failure Gastrointestinal: Yes (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) Gall Bladder Disease Musculoskeletal: No Endocrine: Yes (SELF MEDICATES WITH HIS INSULIN; OBESITY) Diabetes, Insulin dep HEENT: No (patient wears glasses ) Loss of Vision: Denies Hearing Impairment: Denies Cancer: No Psychosocial: No Integumentary: No Blood Disorders: No Family Medical History Cardiovascular disease 19 FATHER Hypertension 19 FATHER CAD Over 55 Years Old, Hypertension PAST SURGICAL HISTORY: -CARDIAC CATH 11/09/19--DIFFUSELY CALCIFIED CORONARY ARTERIES, SMALL VESSEL DISEASE, NO INTERVENTION - Physical Exam Vital Signs Vital Signs - First Documented 07/13/21 20:03 Temp 36.0 Pulse 87 Resp 18 B/P (MAP) 185/101 (129) Pulse Ox 95 O2 Delivery Room Air Capillary Refill : Height, Weight, BMI Height: 5'7.00" Weight: 200lbs. oz. 90.093666xy; 35.00 BMI Method:Estimated General Appearance: No Apparent Distress, WD/WN, Anxious, Other (Somewhat unkempt, food stains on his upper shirt. Seems to have difficulty with short- term memory. Unknown if he has history of dementia but this certainly seems likely. Anxious appearing as well. He states "Im pretty worked up right now".) Eyes: Bilateral Eye Normal Inspection, Bilateral Eye PERRL Respiratory: No Accessory Muscle Use, No Respiratory Distress Cardiovascular: Regular Rate, Rhythm, Normal Peripheral Pulses Gastrointestinal: Normal Bowel Sounds, Non Tender, Soft Extremity: Normal Capillary Refill, Normal Inspection, Pedal Edema (2+ bilateral lower extremities thickening and scaling of skin bilateral lower extremities) Neurologic/Psychiatric: Alert, Oriented x3 Skin: Normal Color, Warm/Dry Progress/Results/Core Measures Suspected Sepsis SIRS Temperature: Pulse: Respiratory Rate: Laboratory Tests 07/13/21 20:20: White Blood Count 9.2 Blood Pressure / Mean: Laboratory Tests 07/13/21 20:20: Creatinine 1.78H, Platelet Count 229, Total Bilirubin 0.4 Results/Orders Lab Results Laboratory Tests Test 07/13/21 20:20 Range/Units White Blood Count 9.2 4.3-11.0 10^3/uL Red Blood Count 4.59 4.30-5.52 10^6/uL Hemoglobin 13.5 13.3-17.7 g/dL Hematocrit 43 40-54 % Mean Corpuscular Volume 93 80-99 fL Mean Corpuscular Hemoglobin 29 25-34 pg Mean Corpuscular Hemoglobin Concent 32 32-36 g/dL Red Cell Distribution Width 13.2 10.0-14.5 % Platelet Count 229 130-400 10^3/uL Mean Platelet Volume 9.7 9.0-12.2 fL Immature Granulocyte % (Auto) 0 % Neutrophils (%) (Auto) 59 42-75 % Lymphocytes (%) (Auto) 25 12-44 % Monocytes (%) (Auto) 12 0-12 % Eosinophils (%) (Auto) 3 0-10 % Basophils (%) (Auto) 1 0-10 % Neutrophils # (Auto) 5.5 1.8-7.8 10^3/uL Lymphocytes # (Auto) 2.3 1.0-4.0 10^3/uL Monocytes # (Auto) 1.1 H 0.0-1.0 10^3/uL Eosinophils # (Auto) 0.3 0.0-0.3 10^3/uL Basophils # (Auto) 0.1 0.0-0.1 10^3/uL Immature Granulocyte # (Auto) 0.0 0.0-0.1 10^3/uL Sodium Level 140 135-145 MMOL/L Potassium Level 4.3 3.6-5.0 MMOL/L Chloride Level 104 98-107 MMOL/L Carbon Dioxide Level 24 21-32 MMOL/L Anion Gap 12 5-14 MMOL/L Blood Urea Nitrogen 24 H 7-18 MG/DL Creatinine 1.78 H 0.60-1.30 MG/DL Estimat Glomerular Filtration Rate 37 BUN/Creatinine Ratio 13 Glucose Level 143 H 70-105 MG/DL Calcium Level 9.0 8.5-10.1 MG/DL Corrected Calcium 9.5 8.5-10.1 MG/DL Total Bilirubin 0.4 0.1-1.0 MG/DL Aspartate Amino Transf (AST/SGOT) 19 5-34 U/L Alanine Aminotransferase (ALT/SGPT) 17 0-55 U/L Alkaline Phosphatase 74 40-136 U/L Total Protein 7.2 6.4-8.2 GM/DL Albumin 3.4 3.2-4.5 GM/DL My Orders Orders - CORTEZ CASTAÑEDA APRN Cbc With Automated Diff (07/13/21 20:08) Comprehensive Metabolic Panel (07/13/21 20:08) BNP (07/13/21 20:08) Vital Signs/I&O 07/13/21 20:03 Temp 36.0 Pulse 87 Resp 18 B/P (MAP) 185/101 (129) Pulse Ox 95 O2 Delivery Room Air Capillary Refill : Departure Communication (Admissions) 2023-Patient is adamant this could not be related to his anxiety. He states that his doctor told him to check his blood pressure every hour. I advised him that there is no physician that would tell him that. He states "well she said she wanted a profile". I advised him that means maybe twice a day not more than that and certainly not every hour. He also wants to eat a large number of glucose tablets because his blood sugar is 119. He feels fine but he does not want to get too low. I advised him we would check it again in about 30 minutes and he informs me that it would be too late at that point. He lives at home by himself. 2111-he is worried that he has a "blood blockage in an artery". He is not sure which artery whether it would be arm leg abdomen head or neck. He believes that his hypertension is clearance representative of that. He has no pain and no symptoms with his high blood pressure he is only worried about the number. Impression Primary Impression: Anxiety Disposition: 01 HOME, SELF-CARE Condition: Stable Departure-Patient Inst. Decision time for Depature: 21:01 Referrals: BRADY MADDOX MD (PCP/Family) Primary Care Physician Patient Instructions: Anxiety, Adult ED Add. Discharge Instructions: You do not check your blood pressure more than twice per day. Return to ER for any concerns. CORTEZ CASTAÑEDA APRN Jul 13, 2021 20:13
[2021-07-13 20:36] LABS: BASOPHILS # (AUTO) 0.1 10^3/uL (0.0-0.1); BASOPHILS % (AUTO) 1 % (0-10); EOSINOPHILS # (AUTO) 0.3 10^3/uL (0.0-0.3); EOSINOPHILS % (AUTO) 3 % (0-10); HEMATOCRIT 43 % (40-54); HEMOGLOBIN 13.5 g/dL (13.3-17.7); LYMPHOCYTES # (AUTO) 2.3 10^3/uL (1.0-4.0); LYMPHOCYTES % (AUTO) 25 % (12-44); MEAN CORPUSCULAR HEMOGLOBIN 29 pg (25-34); MEAN CORPUSCULAR HGB CONC 32 g/dL (32-36); MEAN CORPUSCULAR VOLUME 93 fL (80-99); MEAN PLATELET VOLUME 9.7 fL (9.0-12.2); MONOCYTES # (AUTO) 1.1 10^3/uL (0.0-1.0); MONOCYTES % (AUTO) 12 % (0-12); NEUTROPHILS # (AUTO) 5.5 10^3/uL (1.8-7.8); NEUTROPHILS % (AUTO) 59 % (42-75); PLATELET COUNT 229 10^3/uL (130-400); WHITE BLOOD COUNT 9.2 10^3/uL (4.3-11.0)
[2021-07-13 20:53] LABS: ALBUMIN 3.4 GM/DL (3.2-4.5); BILIRUBIN,TOTAL 0.4 MG/DL (0.1-1.0); CREATININE SERUM 1.78 MG/DL (0.60-1.30); POTASSIUM 4.3 MMOL/L (3.6-5.0); TOTAL PROTEIN 7.2 GM/DL (6.4-8.2)
[2021-07-13 21:30] VITALS: BP 143/88
== END 2021-07-13 21:30 | disposition home or self-care (01) ==
LOC: EDUNIT# 19:53 → ER 19:55
DX: F41.9 Anxiety disorder, unspecified (principal); I25.2 Old myocardial infarction; I10 Essential (primary) hypertension; I25.10 Atherosclerotic heart disease of native coronary artery without angina pectoris; E11.9 Type 2 diabetes mellitus without complications; Z79.899 Other long term (current) drug therapy; Z79.4 Long term (current) use of insulin
CPT/HCPCS: 36415; 80053; 83880; 85025; 99281

== ENCOUNTER 2021-07-17 10:27 | Outpatient (RCR) | payer MEDICARE ==
[2021-07-31] MEDS ORDERED: HYDR-3923 PO (19:37)
== END 2021-08-07 09:07 | disposition home or self-care (01) ==
PROVIDERS: ATTEND Family Medicine
DX: R26.89 Other abnormalities of gait and mobility (principal); R53.1 Weakness; R29.6 Repeated falls; I10 Essential (primary) hypertension; E11.9 Type 2 diabetes mellitus without complications; Z86.16 Personal history of COVID-19

== ENCOUNTER 2021-07-31 15:21 | Emergency (ER) | payer MEDICARE ==
[~2021-07-31] VITALS: Ht 175 cm; Wt 121.0 kg
--- OUTSIDE RECORDS SUMMARY | 2021-07-31 15:28 | XMS REPORT | CCD ---
Author Author Artie Maddox Organization Anny Maddox MD, 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 [employer] 03/19/[address]: 512750313 Never smoker 03/19/[address]: 761683597 Never drinks alcohol 2020 Allergies, Adverse Reactions, Alerts Substance Reaction Codes Entered Date Inactivated Date Status SULFA(SULFONAMIDE ANTIBIOTICS) Unknown 03/19/2021 No In active Date Active Problems Condition Codes Effective Dates Condition Status Chronic kidney disease, stage 3b ICD-10: N18.32 ICD-9: 585.3 04/23/2021 Active Essential (primary) hypertension ICD-10: I10 ICD-9: 401.1 03/19/2021 Active 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, with long-term current use of insulin ICD-10: E11.22 ICD-9: 250.40 03/19/2021 Active Edema of right lower leg due to peripheral venous insu fficiency ICD-10: I87.2 ICD-9: 459.81 03/19/2021 Active Generalized muscle weakness ICD-10: M62.81 ICD-9: 728.87 04/23/2021 Active Localized edema ICD-10: R60.0 03/19/2021 Active Neurologic gait dysfunction ICD-10: R26.9 ICD-9: 781.2 04/23/2021 Active Chronic kidney disease, stage 3b ICD-10: N18.32 03/19/2021 Active terminologist (current) use of insulin ICD-10: Z79.4 03/19/2021 Active Medications Medication Codes Instructions Start Date Stop Date Status Fill Instructions hydralazine 10 mg tablet RxNorm: 809760 Take 1 Tablet(s ) Oral two times a day noon and HS 07/23/2021 08/21/2021 Active clonidine 0.3 mg/24 hr weekly transdermal patch RxNorm: 9986 79 Take 1 Patch Transdermal weekly 07/23/2021 No Stop Date Active please delive r to pt's home - use good rx if more than 40$ with regular insurance omeprazole 40 mg capsule,delayed release RxNorm: 178344 Take 1 Capsule(s) Oral every day 07/23/2021 10/20/2021 Active cefdinir 300 mg capsule RxNorm: 870143 Take 1 Capsule(s) Oral t wo times a day 07/19/2021 07/25/2021 Active cefdinir 300 mg capsule RxNorm: 511722 Take 1 Capsule(s) Oral t wo times a day 07/19/2021 07/19/2021 Inactive hydralazine 10 mg tablet RxNorm: 105458 Take 1 Tablet(s ) Oral two times a day noon and HS 07/13/2021 07/13/2021 Inactive finasteride 5 mg tablet RxNorm: 620884 Take 1 Tablet(s) Oral ev harjinder day 05/31/2021 08/28/2021 Active tamsulosin 0.4 mg capsule RxNorm: 253407 Take 1 Capsule(s) Oral every day 05/31/2021 08/28/2021 Active carvedilol 25 mg tablet RxNorm: 630029 Take 1 Tablet(s) Oral tw o times a day 05/18/2021 07/16/2021 Inactive isosorbide mononitrate ER 60 mg tablet,extended release 24 h r RxNorm: 176032 2 Tablet(s) Oral every day 04/26/2021 04/20/2022 Active hydralazine 10 mg tablet RxNorm: 544209 Take 1 Tablet(s ) Oral every night at bedtime 04/26/2021 05/25/2021 Inactive hydralazine 10 mg tablet RxNorm: 463771 Take 1 Tablet(s ) Oral every night at bedtime 04/26/2021 04/26/2021 Inactive losartan 50 mg tablet RxNorm: 616973 Take 1 Tablet(s) Oral two times a day 04/23/2021 04/17/2022 Active dc amlodipine omeprazole 40 mg capsule,delayed release RxNorm: 449853 Take 1 Capsule(s) Oral every day 04/23/2021 07/21/2021 Inactive losartan 50 mg tablet RxNorm: 426355 1 Tablet(s) Oral every nig ht at bedtime 04/12/2021 04/22/2021 Inactive dc amlodipine losartan 50 mg tablet RxNorm: 439737 1 Tablet(s) Oral every nig ht at bedtime 04/12/2021 04/11/2021 Inactive clonidine HCl 0.3 mg tablet RxNorm: 099442 1 Tablet(s) Oral two times a day 04/04/2021 07/22/2021 Inactive Voltaren Arthritis Pain 1 % topical gel RxNorm: 369483 2 Gram(s) Topical four times a day as needed may increase to 4 grams if needed to affected area of pain 03/29/2021 07/26/2021 Active Voltaren Arthritis Pain 1 % topical gel RxNorm: 513915 2 Gram(s) Topical four times a day as needed may increase to 4 grams if needed 03/29/202103/04 Inactive Colace 100 mg capsule RxNorm: 2229443 2 Capsule(s) Oral every day 0 03/19/2021 No Stop Date Active Novolog Flexpen U-100 Insulin aspart 100 unit/mL (3 mL ) subcutaneous RxNorm: 0828243 6-7 Unit(s) Subcutaneous before meals 03/19/2021 No Stop Date Act josh Tradjenta 5 mg tablet RxNorm: 5152847 1 Tablet(s) Oral every day No Stop Date Active furosemide 40 mg tablet RxNorm: 354280 1 Tablet(s) Oral every day 0 03/19/2021 No Stop Date Active Levemir FlexTouch U-100 Insulin 100 unit/mL (3 mL) sub cutaneous pen RxNorm: 168920 25 Unit(s) Subcutaneous two times a day 03/19/2021 No Stop Date A ctive Aspirin Low Dose 81 mg tablet,delayed release RxNorm: 423545 1 Tablet(s) Oral every day 03/19/2021 No Stop Date Active Vitamin D3 125 mcg (5,000 unit) tablet RxNorm: 372406 1 Tablet(s) Oral every day 03/19/2021 No Stop Date Active tamsulosin 0.4 mg capsule RxNorm: 452918 1 Capsule(s) Oral every da y 03/19/2021 05/31/2021 Inactive clonidine HCl 0.3 mg tablet RxNorm: 371715 1 Tablet(s) Oral two times a day 03/19/2021 04/03/2021 Inactive isosorbide mononitrate ER 120 mg tablet,extended release 24 hr RxNorm: 588414 1 Tablet(s) Oral every day 03/19/2021 04/26/2021 Inactive omeprazole 40 mg capsule,delayed release RxNorm: 675538 1 Capsule(s) Oral every day 03/19/2021 04/23/2021 Inactive finasteride 5 mg tablet RxNorm: 615141 1 Tablet(s) Oral every day 0 03/19/2021 05/31/2021 Inactive carvedilol 25 mg tablet RxNorm: 417272 1 Tablet(s) Oral two drake es a day 03/19/2021 05/18/2021 Inactive amlodipine 2.5 mg tablet RxNorm: 823093 1 Tablet(s) Oral every day 03/19/2021 04/09/2021 Inactive PreserVision Lutein oral RxNorm: 657505 oral 03/19/2021 Active Medication Administered No Medication Administered data Immunizations Vaccine Codes Date Status Covid-19 CVX: 01/26/2021 Covid-19 CVX: 12/29/2020 Pneumococcal (Adult) CVX: 33 08/03/2020 Results Observation Observation Code Item Item Code Result Date S ervice Location %Hba1C Gpn431 % HbA1c 23046-7 8.2 % 05/28/2021 Unknown %Hba1C Nuv441 Gluc Ave 189 mg/dL 05/28/2021 Unknown Comp Metabolic Cdb542 NA 142 mEq/L 05/28/2021 Unkn own Comp Metabolic Umf428 K 4.1 mEq/L 05/28/2021 Unkn own Comp Metabolic Crl972 CL 104 mEq/L 05/28/2021 Unkn own Comp Metabolic Qha099 CO2 29.0 mEq/L 05/28/2021 Unk nown Comp Metabolic Ltl396 ANION GAP 13 05/28/2021 Unkn own Comp Metabolic Edz540 GLUCOSE 169 mg/dL 05/28/2021 Unkn own Comp Metabolic Wax215 Creat 1.9 mg/dL 05/28/2021 Unkn own Comp Metabolic Flc118 eGFR 37 ml/min/1.73m2 05/28/20 21 Unknown Comp Metabolic Swf596 BUN 35 mg/dL 05/28/2021 Unkn own Comp Metabolic Qva007 B/C Ratio 18.7 Ratio 05/28/2021 Unk nown Comp Metabolic Wnm911 CALCIUM 8.7 mg/dL 05/28/2021 Unkn own Comp Metabolic Fem684 ALK PHOS 70 U/L 05/28/2021 Unkn own Comp Metabolic Unw624 AST(SGOT) 17 U/L 05/28/2021 Unkn own Comp Metabolic Zrh068 ALT(SGPT) 14 U/L 05/28/2021 Unkn own Comp Metabolic Yci599 BILI T 0.5 mg/dL 05/28/2021 Unkn own Comp Metabolic Psn550 ALBUMIN 3.4 g/dL 05/28/2021 Unkn own Comp Metabolic Lqc668 TPRO 6.8 g/dL 05/28/2021 Unkn own Comp Metabolic Adf691 GLOB 3.4 g/dL 05/28/2021 Unkn own Comp Metabolic Xgv055 A/G Ratio 1.0 Ratio 05/28/2021 Unkn own Comp Metabolic Waj375 Osmo 295 mOsmo 05/28/2021 Unkn own Cbc [...] 05/28/20 21 Unknown Cbc With Differential Ord2 [place]% 12.7 % 05/28/20 21 Unknown Cbc With [...] K/ul 021 Unknown Cbc With Differential Ord2 [place] ABS# 1.2 K/ul 05/28/20 21 Unknown Cbc With Differential Ord2 Eos ABS# 0.3 K/ul 05/28/20 21 Unknown Cbc With Differential Ord2 Baso ABS# 0.0 K/ul 05/28/20 21 Unknown Procedures No Procedures data Vital Signs Date Vital 07/23/2021 Blood Pressure 1: 136/84 Code: 8480-6 BMI: 39.6 Code: 30357-3 Heart Rate 1: 80 bpm Height: 5'9" Code: 8302-2 Respiratory Rate: 16 bpm SpO2: 96% Temperature: 36.2 (C) / 97.1 (F) Weight: 268 lbs Code: 94281-2 04/23/2021 Blood Pressure 1: 150/82 Code: 8480-6 Bl ood Pressure 1: 124/80 Code: 8480-6 BMI: 39.9 Code: 60296-4 Heart Rate 1: 81 bpm Height: 5'9" Code: 8302-2 Respiratory Rate: 16 bpm SpO2: 96% Temperature: 36.1 (C) / 96.9 (F) We ight: 270 lbs Code: 07959-8 03/19/2021 Blood Pressure 1: 134/72 Code: 8480-6 BMI: 40.5 Code: 57905-5 Heart Rate 1: 77 bpm Height: 5'9" Code: 8302-2 Respiratory Rate: 18 bpm SpO2: 96% Temperature: 36.7 (C) / 98.0 (F) Weight: 274 lbs 5 oz Code: 81856-9 Functional Status No Functional Status data Reason For Visit Reason For Visit Effective Dates Notes diabetes mellitus 07/23/2021 hypertension 04/23/2021 hypertension 03/19/2021 Encounters Encounter Performer Location Codes Date ([id number]) [id number] EST. PATIENT, LEVEL IV Diagnosis: Essential (primary) hypertension[ICD10: I10] Diagnosis: Chronic kidney disease, stage 3b[ICD10: N18.32] Anny Maddox MD, [facility] CPT-4: 46510 07/23/2021 ([id number]) [id number] EST. 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 The patient has been counseled to cut back on salt in diet for a no added salt diet, low fat diet, start an exercise program with low weight bearing exercises and higher aerobic activity for heart health. The patient is to check blood pressure readings as an outpatient and either fax, call, or email the readings to the office next week for practitioner to review. The pt is to call for acute concerns. We will stop Clonidine BID PO and switch to transdermal patch for more consistent control. Chronic renal failure - defer to Nephrology. Pt has not been following a renal diet - will send referral to emergency vehicle operator for education of patient. 07/23/2021 Patient Education: Patient Medication Summary Completed 07/23/2021 Patient Education: Patient Medication Summary Completed 05/25/2021 Visit Plan: Gait imbalance - referral to [facility] physical therapy for balance therapy Diabetes mellitus - chronic - pt insulin dependent, has not been managing his diabetes very well with dietary indescretion, pt has been referred to emergency vehicle operator. Peripheral edema - with peripheral vascular [...] acute concerns. 04/23/2021 Appointment: Anny Maddox WPtel: [address] [place], [place] [phone] (15 min) Moderate 04/23/2021 Patient Education: Patient Medication Summary Completed 04/23/2021 Visit Plan: Chronic renal failure - defe r to Nephrology. Pt has not been following a renal diet - will send referral to emergency vehicle operator for education of patient. Diabetes mellitus [...] clean out of his ears. referral to emergency vehicle operator for swelling, renal disease and diabetes. 03/19/2021 Patient Education: Patient Medication Summary Completed 03/19/2021 Instructions Comment We will stop Clonidine BID PO and switch to transdermal patch for more consistent control. . Hypertension - uncontrolled - the roddy ent's medications have been modified as documented in the visit note. The patient has been counseled to cut back on salt in diet for a no added salt diet, low fat diet, start an exercise program with low weight bearing exercises and higher aerobic activity for heart health. The patient is to check blood pressure readings as an outpatient and either fax, call, or email the readings to the office next week for practitioner to review. The pt is to call for acute concerns. We will stop Clonidine BID PO and switch to transdermal patch for more consistent control. Chronic renal failure - defer to Nephrology. Pt has not been following a renal diet - will send referral to emergency vehicle operator for education of patient. increase the losartan to 50mg twice lenora y . Gait imbalance - referral to [facility] for balance therapy Diabetes mellitus - chronic - pt insulin dependent, has not been managing his diabetes very well with dietary indescretion, pt has been referred to emergency vehicle operator. Peripheral edema - with peripheral vascular [...] Chronic renal failure - defer to Nephr hannahy. Pt has not been following a renal diet - will send referral to emergency vehicle operator for education of patient. Diabetes mellitus [...] change in blood pressure readings at home. Rupert steinion - use mineral oil in ears, RTC in a few weeks for clean out of his ears. referral to emergency vehicle operator for swelling, renal disease and diabetes. Medical Equipment No Medical Equipment data Health Concerns Section Health Concerns data not found Goals Section Goals data not found Interventions Section Interventions data not found Health Status Evaluations/Outcomes Section Health Status Evaluations/Outcomes data not found Advance Directives No Advance Directive data
--- OUTSIDE RECORDS SUMMARY | 2021-07-31 15:28 | XMS REPORT | CCD ---
Author Author Artie Maddox Organization Anny Maddox MD, [facility] Address [address] [place] [address] Phone Care Team Providers Care Child Guidance Counselor Name Role Phone Anny Maddox PP Unavailable CCM Unavailable Summary Purpose Interface Exchange Insurance Providers Payer name Policy type / Coverage type Covered democrat ID Effective Begin Date Effective End Date [employer] Medicare Solutions Medicare Part B [id number] Un known Unknown Family history Father Diagnosis [...] children Unknown 3 two sons live [facility] and 1 dtr lives in [facility] 03/19/2021 Employment Unknown 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 [employer] 03/19/[address]: 615473348 Never smoker 03/19/[address]: 213001099 Never drinks alcohol 2020 Allergies, Adverse Reactions, [...] disease, stage 3b ICD-10: N18.32 03/19/2021 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 ICD-10: Z79.4 03/19/2021 Active Medications Medication Codes Instructions Start Date Stop Date Status Fill Instructions hydralazine 10 mg tablet RxNorm: 424299 Take 1 Tablet(s ) Oral two times a day noon and HS 07/23/2021 08/21/2021 Active clonidine 0.3 mg/24 hr weekly transdermal patch RxNorm: 9986 79 Take 1 Patch Transdermal weekly 07/23/2021 No Stop Date Active please delive r to pt's home - use good rx if more than 40$ with regular insurance omeprazole 40 mg capsule,delayed release RxNorm: 426757 Take 1 Capsule(s) Oral every day 07/23/2021 10/20/2021 Active cefdinir 300 mg capsule RxNorm: 503341 Take 1 Capsule(s) Oral t wo times a day 07/19/2021 07/25/2021 Active cefdinir 300 mg capsule RxNorm: 209415 Take 1 Capsule(s) Oral t wo times a day 07/19/2021 07/19/2021 Inactive hydralazine 10 mg tablet RxNorm: 595444 Take 1 Tablet(s ) Oral two times a day noon and HS 07/13/2021 07/13/2021 Inactive finasteride 5 mg tablet RxNorm: 670507 Take 1 Tablet(s) Oral ev harjinder day 05/31/2021 08/28/2021 Active tamsulosin 0.4 mg capsule RxNorm: 583313 Take 1 Capsule(s) Oral every day 05/31/2021 08/28/2021 Active carvedilol 25 mg tablet RxNorm: 760117 Take 1 Tablet(s) Oral tw o times a day 05/18/2021 07/16/2021 Inactive isosorbide mononitrate ER 60 mg tablet,extended release 24 h r RxNorm: 169771 2 Tablet(s) Oral every day 04/26/2021 04/20/2022 Active hydralazine 10 mg tablet RxNorm: 270167 Take 1 Tablet(s ) Oral every night at bedtime 04/26/2021 05/25/2021 Inactive hydralazine 10 mg tablet RxNorm: 088553 Take 1 Tablet(s ) Oral every night at bedtime 04/26/2021 04/26/2021 Inactive losartan 50 mg tablet RxNorm: 516159 Take 1 Tablet(s) Oral two times a day 04/23/2021 04/17/2022 Active dc amlodipine omeprazole 40 mg capsule,delayed release RxNorm: 409432 Take 1 Capsule(s) Oral every day 04/23/2021 07/21/2021 Inactive losartan 50 mg tablet RxNorm: 205041 1 Tablet(s) Oral every nig ht at bedtime 04/12/2021 04/22/2021 Inactive dc amlodipine losartan 50 mg tablet RxNorm: 437029 1 Tablet(s) Oral every nig ht at bedtime 04/12/2021 04/11/2021 Inactive clonidine HCl 0.3 mg tablet RxNorm: 041170 1 Tablet(s) Oral two times a day 04/04/2021 07/22/2021 Inactive Voltaren Arthritis Pain 1 % topical gel RxNorm: 912602 2 Gram(s) Topical four times a day as needed may increase to 4 grams if needed to affected area of pain 03/29/2021 07/26/2021 Active Voltaren Arthritis Pain 1 % topical gel RxNorm: 557688 2 Gram(s) Topical four times a day as needed may increase to 4 grams if needed 03/29/202103/04 Inactive Colace 100 mg capsule RxNorm: 4100183 2 Capsule(s) Oral every day 0 03/19/2021 No Stop Date Active Novolog Flexpen U-100 Insulin aspart 100 unit/mL (3 mL ) subcutaneous RxNorm: 8875334 6-7 Unit(s) Subcutaneous before meals 03/19/2021 No Stop Date Act josh Tradjenta 5 mg tablet RxNorm: 8360836 1 Tablet(s) Oral every day No Stop Date Active furosemide 40 mg tablet RxNorm: 376641 1 Tablet(s) Oral every day 0 03/19/2021 No Stop Date Active Levemir FlexTouch U-100 Insulin 100 unit/mL (3 mL) sub cutaneous pen RxNorm: 515649 25 Unit(s) Subcutaneous two times a day 03/19/2021 No Stop Date A ctive Aspirin Low Dose 81 mg tablet,delayed release RxNorm: 336449 1 Tablet(s) Oral every day 03/19/2021 No Stop Date Active Vitamin D3 125 mcg (5,000 unit) tablet RxNorm: 527436 1 Tablet(s) Oral every day 03/19/2021 No Stop Date Active tamsulosin 0.4 mg capsule RxNorm: 030652 1 Capsule(s) Oral every da y 03/19/2021 05/31/2021 Inactive clonidine HCl 0.3 mg tablet RxNorm: 415189 1 Tablet(s) Oral two times a day 03/19/2021 04/03/2021 Inactive isosorbide mononitrate ER 120 mg tablet,extended release 24 hr RxNorm: 755175 1 Tablet(s) Oral every day 03/19/2021 04/26/2021 Inactive omeprazole 40 mg capsule,delayed release RxNorm: 207494 1 Capsule(s) Oral every day 03/19/2021 04/23/2021 Inactive finasteride 5 mg tablet RxNorm: 704004 1 Tablet(s) Oral every day 0 03/19/2021 05/31/2021 Inactive carvedilol 25 mg tablet RxNorm: 958359 1 Tablet(s) Oral two drake es a day 03/19/2021 05/18/2021 Inactive amlodipine 2.5 mg tablet RxNorm: 007587 1 Tablet(s) Oral every day 03/19/2021 04/09/2021 Inactive PreserVision Lutein oral RxNorm: 447069 oral 03/19/2021 Active Medication Administered No Medication Administered data Immunizations Vaccine Codes Date Status Covid-19 CVX: 01/26/2021 Covid-19 CVX: 12/29/2020 Pneumococcal (Adult) CVX: 33 08/03/2020 Results Observation Observation Code Item Item Code Result Date S ervice Location %Hba1C Jnt937 % HbA1c 72769-8 8.2 % 05/28/2021 Unknown %Hba1C Wzn508 Gluc [address] 189 mg/dL 05/28/2021 Unknown Comp Metabolic Clf751 NA 142 mEq/L 05/28/2021 Unkn own Comp Metabolic Mtl377 K 4.1 mEq/L 05/28/2021 Unkn own Comp Metabolic Tgc176 CL 104 mEq/L 05/28/2021 Unkn own Comp Metabolic Owq616 CO2 29.0 mEq/L 05/28/2021 Unk nown Comp Metabolic Dlb200 ANION GAP 13 05/28/2021 Unkn own Comp Metabolic Jfz487 GLUCOSE 169 mg/dL 05/28/2021 Unkn own Comp Metabolic Poq632 Creat 1.9 mg/dL 05/28/2021 Unkn own Comp Metabolic Oyn413 eGFR 37 ml/min/1.73m2 05/28/20 21 Unknown Comp Metabolic Odg722 BUN 35 mg/dL 05/28/2021 Unkn own Comp Metabolic Dnl506 B/C Ratio 18.7 Ratio 05/28/2021 Unk nown Comp Metabolic Vbs782 CALCIUM 8.7 mg/dL 05/28/2021 Unkn own Comp Metabolic Ber369 ALK PHOS 70 U/L 05/28/2021 Unkn own Comp Metabolic Ioo475 AST(SGOT) 17 U/L 05/28/2021 Unkn own Comp Metabolic Uwe610 ALT(SGPT) 14 U/L 05/28/2021 Unkn own Comp Metabolic Pdt752 BILI T 0.5 mg/dL 05/28/2021 Unkn own Comp Metabolic Hxe994 ALBUMIN 3.4 g/dL 05/28/2021 Unkn own Comp Metabolic Ney217 TPRO 6.8 g/dL 05/28/2021 Unkn own Comp Metabolic Xsm505 GLOB 3.4 g/dL 05/28/2021 Unkn own Comp Metabolic Dwg836 A/G Ratio 1.0 Ratio 05/28/2021 Unkn own Comp Metabolic Opj128 Osmo 295 mOsmo 05/28/2021 Unkn own Cbc [...] 05/28/20 21 Unknown Cbc With Differential Ord2 [place]% 12.7 % 05/28/20 21 Unknown Cbc With [...] K/ul 021 Unknown Cbc With Differential Ord2 [place] ABS# 1.2 K/ul 05/28/20 21 Unknown Cbc With Differential Ord2 Eos ABS# 0.3 K/ul 05/28/20 21 Unknown Cbc With Differential Ord2 Baso ABS# 0.0 K/ul 05/28/20 21 Unknown Procedures No Procedures data Vital Signs Date Vital 04/23/2021 Blood Pressure 1: 150/82 Code: 8480-6 Bl ood Pressure 1: 124/80 Code: 8480-6 BMI: 39.9 Code: 76240-3 Heart Rate 1: 81 bpm Height: 5'9" Code: 8302-2 Respiratory Rate: 16 bpm SpO2: 96% Temperature: 36.1 (C) / 96.9 (F) We ight: 270 lbs Code: 51683-0 03/19/2021 Blood Pressure 1: 134/72 Code: 8480-6 BMI: 40.5 Code: 58178-1 Heart Rate 1: 77 bpm Height: 5'9" Code: 8302-2 Respiratory Rate: 18 bpm SpO2: 96% Temperature: 36.7 (C) / 98.0 (F) Weight: 274 lbs 5 oz Code: 42195-9 Functional Status No Functional Status data Reason For Visit Reason For Visit Effective Dates Notes hypertension 04/23/2021 hypertension 03/19/2021 Encounters Encounter Performer Location Codes Date () 36414 EST. 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[ICD10: I87.2] Anny Maddox MD, [facility] CPT-4: 66480 04/23/2021 ([id number]) OFFICE/OUTPATIENT VISIT NEW Diagnosis: Essential (primary) hypertension[ICD10: I10] Diagnosis: Chronic kidney disease, stage 3b[ICD10: N18.32] Diagnosis: [facility] (current) use of insulin[ICD10: Z79.4] Diagnosis: 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 chronic kidney disease, with long-term current use of insulin[ICD10: E11.22] Diagnosis: Localized edema[ICD10: R60.0] Diagnosis: 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 Peripheral edema - with peripheral vascular disease [...] acute concerns. 04/23/2021 Appointment: Anny Maddox WPtel: [address] [place], [place] [phone] [place] (15 min) Moderate 04/23/2021 Patient Education: Patient Medication Summary Completed 04/23/2021 Visit Plan: Chronic renal failure - defe r to Nephrology. Pt has not been following a renal diet - will send referral to sand caster apprentice for education of patient. Diabetes mellitus - [...] clean out of his ears. referral to sand caster apprentice for swelling, renal disease and diabetes. 03/19/2021 Patient Education: Patient Medication Summary Completed 03/19/2021 Instructions Comment increase the losartan to 50mg twice lenora y . Gait imbalance - [facility] Diabetes mellitus - chronic - pt insulin dependent, has not been managing his diabetes very well with dietary indescretion, pt has been referred to sand caster apprentice. Peripheral edema - with peripheral vascular disease [...] Chronic renal failure - defer to Nephr [facility]. Pt has not been following a renal diet - will send referral to sand caster apprentice for education of patient. Diabetes mellitus - [...] clean out of his ears. referral to sand caster apprentice for swelling, renal disease and diabetes. Medical Equipment No Medical Equipment data Health Concerns Section Health Concerns data not found Goals Section Goals data not found Interventions Section Interventions data not found Health Status Evaluations/Outcomes Section Health Status Evaluations/Outcomes data not found Advance Directives No Advance Directive data
--- OUTSIDE RECORDS SUMMARY | 2021-07-31 15:29 | XMS REPORT | CCD ---
Author Author Artie Maddox Organization Anny Maddox MD, [facility] Address [address] [place] [address] Phone Care Team Providers Care Motorcycle Tester Name Role Phone Anny Maddox PP Unavailable CCM Unavailable Summary Purpose Interface Exchange Insurance Providers Payer name Policy type / Coverage type Covered democrat ID Effective Begin Date Effective End Date [employer] Medicare Solutions Medicare Part B [id number] Un known Unknown Family history Father Diagnosis [...] children Unknown 3 two sons live [facility] and 1 dtr lives in [facility] 03/19/2021 Employment Unknown 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 [employer] 03/19/[address]: 424074997 Never smoker 03/19/[address]: 781819649 Never drinks alcohol 2020 Allergies, Adverse Reactions, [...] disease, stage 3b ICD-10: N18.32 03/19/2021 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 ICD-10: Z79.4 03/19/2021 Active Medications Medication Codes Instructions Start Date Stop Date Status Fill Instructions cefdinir 300 mg capsule RxNorm: 382842 Take 1 Capsule(s) Oral t wo times a day 07/19/2021 07/25/2021 Active cefdinir 300 mg capsule RxNorm: 914919 Take 1 Capsule(s) Oral t wo times a day 07/19/2021 07/19/2021 Inactive hydralazine 10 mg tablet RxNorm: 669912 Take 1 Tablet(s ) Oral two times a day noon and HS 07/13/2021 08/11/2021 Active finasteride 5 mg tablet RxNorm: 609310 Take 1 Tablet(s) Oral ev harjinder day 05/31/2021 08/28/2021 Active tamsulosin 0.4 mg capsule RxNorm: 365892 Take 1 Capsule(s) Oral every day 05/31/2021 08/28/2021 Active carvedilol 25 mg tablet RxNorm: 551770 Take 1 Tablet(s) Oral tw o times a day 05/18/2021 07/16/2021 Inactive isosorbide mononitrate ER 60 mg tablet,extended release 24 h r RxNorm: 223555 2 Tablet(s) Oral every day 04/26/2021 04/20/2022 Active hydralazine 10 mg tablet RxNorm: 930998 Take 1 Tablet(s ) Oral every night at bedtime 04/26/2021 05/25/2021 Inactive hydralazine 10 mg tablet RxNorm: 515362 Take 1 Tablet(s ) Oral every night at bedtime 04/26/2021 04/26/2021 Inactive losartan 50 mg tablet RxNorm: 881998 Take 1 Tablet(s) Oral two times a day 04/23/2021 04/17/2022 Active dc amlodipine omeprazole 40 mg capsule,delayed release RxNorm: 948325 Take 1 Capsule(s) Oral every day 04/23/2021 07/21/2021 Active losartan 50 mg tablet RxNorm: 757423 1 Tablet(s) Oral every nig ht at bedtime 04/12/2021 04/22/2021 Inactive dc amlodipine losartan 50 mg tablet RxNorm: 941758 1 Tablet(s) Oral every nig ht at bedtime 04/12/2021 04/11/2021 Inactive clonidine HCl 0.3 mg tablet RxNorm: 028391 1 Tablet(s) Oral two times a day 04/04/2021 08/02/2021 Active Voltaren Arthritis Pain 1 % topical gel RxNorm: 653198 2 Gram(s) Topical four times a day as needed may increase to 4 grams if needed to affected area of pain 03/29/2021 07/26/2021 Active Voltaren Arthritis Pain 1 % topical gel RxNorm: 745650 2 Gram(s) Topical four times a day as needed may increase to 4 grams if needed 03/29/202103/04 Inactive Colace 100 mg capsule RxNorm: 7599672 2 Capsule(s) Oral every day 0 03/19/2021 No Stop Date Active Novolog Flexpen U-100 Insulin aspart 100 unit/mL (3 mL ) subcutaneous RxNorm: 3313806 6-7 Unit(s) Subcutaneous before meals 03/19/2021 No Stop Date Act josh Tradjenta 5 mg tablet RxNorm: 4300095 1 Tablet(s) Oral every day No Stop Date Active furosemide 40 mg tablet RxNorm: 800942 1 Tablet(s) Oral every day 0 03/19/2021 No Stop Date Active Levemir FlexTouch U-100 Insulin 100 unit/mL (3 mL) sub cutaneous pen RxNorm: 693645 25 Unit(s) Subcutaneous two times a day 03/19/2021 No Stop Date A ctive Aspirin Low Dose 81 mg tablet,delayed release RxNorm: 670227 1 Tablet(s) Oral every day 03/19/2021 No Stop Date Active Vitamin D3 125 mcg (5,000 unit) tablet RxNorm: 979189 1 Tablet(s) Oral every day 03/19/2021 No Stop Date Active tamsulosin 0.4 mg capsule RxNorm: 143312 1 Capsule(s) Oral every da y 03/19/2021 05/31/2021 Inactive clonidine HCl 0.3 mg tablet RxNorm: 288271 1 Tablet(s) Oral two times a day 03/19/2021 04/03/2021 Inactive isosorbide mononitrate ER 120 mg tablet,extended release 24 hr RxNorm: 017149 1 Tablet(s) Oral every day 03/19/2021 04/26/2021 Inactive omeprazole 40 mg capsule,delayed release RxNorm: 551439 1 Capsule(s) Oral every day 03/19/2021 04/23/2021 Inactive finasteride 5 mg tablet RxNorm: 245178 1 Tablet(s) Oral every day 0 03/19/2021 05/31/2021 Inactive carvedilol 25 mg tablet RxNorm: 024868 1 Tablet(s) Oral two drake es a day 03/19/2021 05/18/2021 Inactive amlodipine 2.5 mg tablet RxNorm: 231476 1 Tablet(s) Oral every day 03/19/2021 04/09/2021 Inactive PreserVision Lutein oral RxNorm: 275671 oral 03/19/2021 Active Medication Administered No Medication Administered data Immunizations Vaccine Codes Date Status Covid-19 CVX: 01/26/2021 Covid-19 CVX: 207 12/29/2020 Pneumococcal (Adult) CVX: 33 08/03/2020 Results Observation Observation Code Item Item Code Result Date S ervice Location %Hba1C Vab283 % HbA1c 29388-6 8.2 % 05/28/2021 Unknown %Hba1C Exj560 Gluc Ave 189 mg/dL 05/28/2021 Unknown Comp Metabolic Rbu770 NA 142 mEq/L 05/28/2021 Unkn own Comp Metabolic Vcg398 K 4.1 mEq/L 05/28/2021 Unkn own Comp Metabolic Bhs613 CL 104 mEq/L 05/28/2021 Unkn own Comp Metabolic Lar971 CO2 29.0 mEq/L 05/28/2021 Unk nown Comp Metabolic Tri008 ANION GAP 13 05/28/2021 Unkn own Comp Metabolic Lhd527 GLUCOSE 169 mg/dL 05/28/2021 Unkn own Comp Metabolic Mrt882 Creat 1.9 mg/dL 05/28/2021 Unkn own Comp Metabolic Sii529 eGFR 37 ml/min/1.73m2 05/28/20 21 Unknown Comp Metabolic Dge693 BUN 35 mg/dL 05/28/2021 Unkn own Comp Metabolic Qwj507 B/C Ratio 18.7 Ratio 05/28/2021 Unk nown Comp Metabolic Euy202 CALCIUM 8.7 mg/dL 05/28/2021 Unkn own Comp Metabolic Mcv205 ALK PHOS 70 U/L 05/28/2021 Unkn own Comp Metabolic Rmj023 AST(SGOT) 17 U/L 05/28/2021 Unkn own Comp Metabolic Afb317 ALT(SGPT) 14 U/L 05/28/2021 Unkn own Comp Metabolic Bke676 BILI T 0.5 mg/dL 05/28/2021 Unkn own Comp Metabolic Pef681 ALBUMIN 3.4 g/dL 05/28/2021 Unkn own Comp Metabolic Cvb249 TPRO 6.8 g/dL 05/28/2021 Unkn own Comp Metabolic Syr227 GLOB 3.4 g/dL 05/28/2021 Unkn own Comp Metabolic Gnm587 A/G Ratio 1.0 Ratio 05/28/2021 Unkn own Comp Metabolic Oqy924 Osmo 295 mOsmo 05/28/2021 Unkn own Cbc [...] 05/28/20 21 Unknown Cbc With Differential Ord2 [place]% 12.7 % 05/28/20 21 Unknown Cbc With [...] K/ul 021 Unknown Cbc With Differential Ord2 [place] ABS# 1.2 K/ul 05/28/20 21 Unknown Cbc With Differential Ord2 Eos ABS# 0.3 K/ul 05/28/20 21 Unknown Cbc With Differential Ord2 Baso ABS# 0.0 K/ul 05/28/20 21 Unknown Procedures No Procedures data Vital Signs Date Vital 04/23/2021 Blood Pressure 1: 150/82 Code: 8480-6 Bl ood Pressure 1: 124/80 Code: 8480-6 BMI: 39.9 Code: 51225-1 Heart Rate 1: 81 bpm Height: 5'9" Code: 8302-2 Respiratory Rate: 16 bpm SpO2: 96% Temperature: 36.1 (C) / 96.9 (F) We ight: 270 lbs Code: 63361-4 03/19/2021 Blood Pressure 1: 134/72 Code: 8480-6 BMI: 40.5 Code: 05049-2 Heart Rate 1: 77 bpm Height: 5'9" Code: 8302-2 Respiratory Rate: 18 bpm SpO2: 96% Temperature: 36.7 (C) / 98.0 (F) Weight: 274 lbs 5 oz Code: 29001-1 Functional Status No Functional Status data Reason For Visit Reason For Visit Effective Dates Notes hypertension 04/23/2021 hypertension 03/19/2021 Encounters Encounter Performer Location Codes Date (45080) 82450 EST. 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 Peripheral edema - with peripheral vascular disease [...] acute concerns. 04/23/2021 Appointment: Anny Maddox WPtel: [address] [place], [place] [phone] (15 min) Moderate 04/23/2021 Patient Education: Patient Medication Summary Completed 04/23/2021 Visit Plan: Chronic renal failure - defe r to Nephrology. Pt has not been following a renal diet - will send referral to design maker for education of patient. Diabetes mellitus - [...] clean out of his ears. referral to design maker for swelling, renal disease and diabetes. 03/19/2021 Patient Education: Patient Medication Summary Completed 03/19/2021 Instructions Comment increase the losartan to 50mg twice lenora y . Gait imbalance - referral to [facility] for balance therapy Diabetes mellitus - chronic - pt insulin dependent, has not been managing his diabetes very well with dietary indescretion, pt has been referred to design maker. Peripheral edema - with peripheral vascular disease [...] renal diet - will send referral to design maker for education of patient. Diabetes mellitus - [...] clean out of his ears. referral to design maker for swelling, renal disease and diabetes. Medical Equipment No Medical Equipment data Health Concerns Section Health Concerns data not found Goals Section Goals data not found Interventions Section Interventions data not found Health Status Evaluations/Outcomes Section Health Status Evaluations/Outcomes data not found Advance Directives No Advance Directive data
--- OUTSIDE RECORDS SUMMARY | 2021-07-31 15:29 | XMS REPORT | CCD ---
Author Author Artie Maddox Organization Anny Maddox MD, [facility] Address [address] [place] [address] Phone Care Team Providers Care Test Rack Operator Name Role Phone Anny Maddox PP Unavailable CCM Unavailable Summary Purpose Interface Exchange Insurance Providers Payer name Policy type / Coverage type Covered libertarian ID Effective Begin Date Effective End Date [employer] Medicare Part B [id number] Un known Unknown Family history Father Diagnosis [...] of children Unknown 3 two sons live [facility] and 1 dtr lives in [facility] 03/19/2021 Employment Unknown 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 03/19/[address]: 215579368 Never smoker 03/19/[address]: 144312327 Never drinks alcohol 2020 Allergies, Adverse Reactions, [...] disease, stage 3b ICD-10: N18.32 03/19/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 ICD-10: Z79.4 03/19/2021 Active Medications Medication Codes Instructions Start Date Stop Date Status Fill Instructions hydralazine 10 mg tablet RxNorm: 472977 Take 1 Tablet(s ) Oral two times a day noon and HS 07/23/2021 08/21/2021 Active cefdinir 300 mg capsule RxNorm: 407201 Take 1 Capsule(s) Oral t wo times a day 07/19/2021 07/25/2021 Active cefdinir 300 mg capsule RxNorm: 178022 Take 1 Capsule(s) Oral t wo times a day 07/19/2021 07/19/2021 Inactive hydralazine 10 mg tablet RxNorm: 708130 Take 1 Tablet(s ) Oral two times a day noon and HS 07/13/2021 07/13/2021 Inactive finasteride 5 mg tablet RxNorm: 745925 Take 1 Tablet(s) Oral ev harjinder day 05/31/2021 08/28/2021 Active tamsulosin 0.4 mg capsule RxNorm: 563670 Take 1 Capsule(s) Oral every day 05/31/2021 08/28/2021 Active carvedilol 25 mg tablet RxNorm: 910622 Take 1 Tablet(s) Oral tw o times a day 05/18/2021 07/16/2021 Inactive isosorbide mononitrate ER 60 mg tablet,extended release 24 h r RxNorm: 178440 2 Tablet(s) Oral every day 04/26/2021 04/20/2022 Active hydralazine 10 mg tablet RxNorm: 573569 Take 1 Tablet(s ) Oral every night at bedtime 04/26/2021 05/25/2021 Inactive hydralazine 10 mg tablet RxNorm: 304328 Take 1 Tablet(s ) Oral every night at bedtime 04/26/2021 04/26/2021 Inactive losartan 50 mg tablet RxNorm: 319136 Take 1 Tablet(s) Oral two times a day 04/23/2021 04/17/2022 Active dc amlodipine omeprazole 40 mg capsule,delayed release RxNorm: 982475 Take 1 Capsule(s) Oral every day 04/23/2021 07/21/2021 Inactive losartan 50 mg tablet RxNorm: 486942 1 Tablet(s) Oral every nig ht at bedtime 04/12/2021 04/22/2021 Inactive dc amlodipine losartan 50 mg tablet RxNorm: 487648 1 Tablet(s) Oral every nig ht at bedtime 04/12/2021 04/11/2021 Inactive clonidine HCl 0.3 mg tablet RxNorm: 484330 1 Tablet(s) Oral two times a day 04/04/2021 08/02/2021 Active Voltaren Arthritis Pain 1 % topical gel RxNorm: 979798 2 Gram(s) Topical four times a day as needed may increase to 4 grams if needed to affected area of pain 03/29/2021 07/26/2021 Active Voltaren Arthritis Pain 1 % topical gel RxNorm: 898264 2 Gram(s) Topical four times a day as needed may increase to 4 grams if needed 03/29/202103/04 Inactive Colace 100 mg capsule RxNorm: 1349880 2 Capsule(s) Oral every day 0 03/19/2021 No Stop Date Active Novolog Flexpen U-100 Insulin aspart 100 unit/mL (3 mL ) subcutaneous RxNorm: 3913051 6-7 Unit(s) Subcutaneous before meals 03/19/2021 No Stop Date Act josh Tradjenta 5 mg tablet RxNorm: 1726405 1 Tablet(s) Oral every day No Stop Date Active furosemide 40 mg tablet RxNorm: 592957 1 Tablet(s) Oral every day 0 03/19/2021 No Stop Date Active Levemir FlexTouch U-100 Insulin 100 unit/mL (3 mL) sub cutaneous pen RxNorm: 811694 25 Unit(s) Subcutaneous two times a day 03/19/2021 No Stop Date A ctive Aspirin Low Dose 81 mg tablet,delayed release RxNorm: 805533 1 Tablet(s) Oral every day 03/19/2021 No Stop Date Active Vitamin D3 125 mcg (5,000 unit) tablet RxNorm: 162882 1 Tablet(s) Oral every day 03/19/2021 No Stop Date Active tamsulosin 0.4 mg capsule RxNorm: 791323 1 Capsule(s) Oral every da y 03/19/2021 05/31/2021 Inactive clonidine HCl 0.3 mg tablet RxNorm: 758630 1 Tablet(s) Oral two times a day 03/19/2021 04/03/2021 Inactive isosorbide mononitrate ER 120 mg tablet,extended release 24 hr RxNorm: 182675 1 Tablet(s) Oral every day 03/19/2021 04/26/2021 Inactive omeprazole 40 mg capsule,delayed release RxNorm: 682686 1 Capsule(s) Oral every day 03/19/2021 04/23/2021 Inactive finasteride 5 mg tablet RxNorm: 755096 1 Tablet(s) Oral every day 0 03/19/2021 05/31/2021 Inactive carvedilol 25 mg tablet RxNorm: 117690 1 Tablet(s) Oral two drkae es a day 03/19/2021 05/18/2021 Inactive amlodipine 2.5 mg tablet RxNorm: 382256 1 Tablet(s) Oral every day 03/19/2021 04/09/2021 Inactive PreserVision Lutein oral RxNorm: 251511 oral 03/19/2021 Active Medication Administered No Medication Administered data Immunizations Vaccine Codes Date Status Covid-19 CVX: 207 01/26/2021 Covid-19 CVX: 207 12/29/2020 Pneumococcal (Adult) CVX: 33 08/03/2020 Results Observation Observation Code Item Item Code Result Date S ervice Location %Hba1C Wnp412 % HbA1c 81868-0 8.2 % 05/28/2021 Unknown %Hba1C Tjx262 Gluc Ave 189 mg/dL 05/28/2021 Unknown Comp Metabolic Tkj201 NA 142 mEq/L 05/28/2021 Unkn own Comp Metabolic Fcw522 K 4.1 mEq/L 05/28/2021 Unkn own Comp Metabolic Yhf533 CL 104 mEq/L 05/28/2021 Unkn own Comp Metabolic Ffn363 CO2 29.0 mEq/L 05/28/2021 Unk nown Comp Metabolic Ifg935 ANION GAP 13 05/28/2021 Unkn own Comp Metabolic Swi333 GLUCOSE 169 mg/dL 05/28/2021 Unkn own Comp Metabolic Qjl527 Creat 1.9 mg/dL 05/28/2021 Unkn own Comp Metabolic Vhc850 eGFR 37 ml/min/1.73m2 05/28/20 21 Unknown Comp Metabolic Uqq718 BUN 35 mg/dL 05/28/2021 Unkn own Comp Metabolic Hlb122 B/C Ratio 18.7 Ratio 05/28/2021 Unk nown Comp Metabolic Oeb409 CALCIUM 8.7 mg/dL 05/28/2021 Unkn own Comp Metabolic Wug540 ALK PHOS 70 U/L 05/28/2021 Unkn own Comp Metabolic Lxf037 AST(SGOT) 17 U/L 05/28/2021 Unkn own Comp Metabolic Mzh255 ALT(SGPT) 14 U/L 05/28/2021 Unkn own Comp Metabolic Tvq140 BILI T 0.5 mg/dL 05/28/2021 Unkn own Comp Metabolic Gop038 ALBUMIN 3.4 g/dL 05/28/2021 Unkn own Comp Metabolic Ksx653 TPRO 6.8 g/dL 05/28/2021 Unkn own Comp Metabolic Tiz554 GLOB 3.4 g/dL 05/28/2021 Unkn own Comp Metabolic Nkh146 A/G Ratio 1.0 Ratio 05/28/2021 Unkn own Comp Metabolic Xzw412 Osmo 295 mOsmo 05/28/2021 Unkn own Cbc [...] 05/28/20 21 Unknown Cbc With Differential Ord2 Perry% 12.7 % 05/28/20 21 Unknown Cbc With [...] K/ul 021 Unknown Cbc With Differential Ord2 Perry ABS# 1.2 K/ul 05/28/20 21 Unknown Cbc With Differential Ord2 Eos ABS# 0.3 K/ul 05/28/20 21 Unknown Cbc With Differential Ord2 Baso ABS# 0.0 K/ul 05/28/20 21 Unknown Procedures No Procedures data Vital Signs Date Vital 04/23/2021 Blood Pressure 1: 150/82 Code: 8480-6 Bl ood Pressure 1: 124/80 Code: 8480-6 BMI: 39.9 Code: 64878-0 Heart Rate 1: 81 bpm Height: 5'9" Code: 8302-2 Respiratory Rate: 16 bpm SpO2: 96% Temperature: 36.1 (C) / 96.9 (F) We ight: 270 lbs Code: 17923-8 03/19/2021 Blood Pressure 1: 134/72 Code: 8480-6 BMI: 40.5 Code: 50595-1 Heart Rate 1: 77 bpm Height: 5'9" Code: 8302-2 Respiratory Rate: 18 bpm SpO2: 96% Temperature: 36.7 (C) / 98.0 (F) Weight: 274 lbs 5 oz Code: 12764-6 Functional Status No Functional Status data Reason For Visit Reason For Visit Effective Dates Notes hypertension 04/23/2021 hypertension 03/19/2021 Encounters Encounter Performer Location Codes Date 34944) EST. 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[ICD10: I87.2] Anny Maddox MD, [facility] CPT-4: 35245 04/23/2021 ([id number]) OFFICE/OUTPATIENT VISIT NEW Diagnosis: Essential (primary) hypertension[ICD10: I10] Diagnosis: Chronic kidney disease, stage 3b[ICD10: N18.32] Diagnosis: care home (current) use of insulin[ICD10: Z79.4] Diagnosis: 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 chronic kidney disease, with long-term current use of insulin[ICD10: E11.22] Diagnosis: Localized edema[ICD10: R60.0] Diagnosis: 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 Peripheral edema - with peripheral vascular disease [...] acute concerns. 04/23/2021 Appointment: Anny Maddox WPtel: [address] [place], [place] [id number] (15 min) Moderate 04/23/2021 Patient Education: Patient Medication Summary Completed 04/23/2021 Visit Plan: Chronic renal failure - defe r to Nephrology. Pt has not been following a renal diet - will send referral to [facility] detox[facility] specialist for education of patient. Diabetes mellitus - [...] clean out of his ears. referral to aur[facility] detoxification specialist for swelling, renal disease and diabetes. 03/19/2021 Patient Education: Patient Medication Summary Completed 03/19/2021 Instructions Comment increase the losartan to 50mg twice lenora y . Gait imbalance - referral to [facility] therapy Diabetes mellitus - chronic - pt insulin dependent, has not been managing his diabetes very well with dietary indescretion, pt has been referred to [facility] detoxification specialist. Peripheral edema - with peripheral vascular disease [...] renal diet - will send referral to aur[facility] detoxification specialist for education of patient. Diabetes mellitus - [...] clean out of his ears. referral to [facility] detoxification specialist for swelling, renal disease and diabetes. Medical Equipment No Medical Equipment data Health Concerns Section Health Concerns data not found Goals Section Goals data not found Interventions Section Interventions data not found Health Status Evaluations/Outcomes Section Health Status Evaluations/Outcomes data not found Advance Directives No Advance Directive data
[2021-07-31] MEDS ORDERED: hydrALAZINE (APESOLINE) 20 MG/ML VIAL IV ONE ×2 (16:15→18:30)
[2021-07-31 16:21] LABS: BASOPHILS # (AUTO) 0.1 10^3/uL (0.0-0.1); BASOPHILS % (AUTO) 1 % (0-10); EOSINOPHILS # (AUTO) 0.2 10^3/uL (0.0-0.3); EOSINOPHILS % (AUTO) 2 % (0-10); HEMATOCRIT 46 % (40-54); HEMOGLOBIN 15.1 g/dL (13.3-17.7); LYMPHOCYTES # (AUTO) 1.8 10^3/uL (1.0-4.0); LYMPHOCYTES % (AUTO) 18 % (12-44); MEAN CORPUSCULAR HEMOGLOBIN 30 pg (25-34); MEAN CORPUSCULAR HGB CONC 33 g/dL (32-36); MEAN CORPUSCULAR VOLUME 90 fL (80-99); MEAN PLATELET VOLUME 9.9 fL (9.0-12.2); MONOCYTES # (AUTO) 0.9 10^3/uL (0.0-1.0); MONOCYTES % (AUTO) 9 % (0-12); NEUTROPHILS # (AUTO) 6.8 10^3/uL (1.8-7.8); NEUTROPHILS % (AUTO) 70 % (42-75); PLATELET COUNT 253 10^3/uL (130-400); WHITE BLOOD COUNT 9.8 10^3/uL (4.3-11.0)
[2021-07-31 16:33] LABS: ALBUMIN 3.5 GM/DL (3.2-4.5); CHLORIDE 103 MMOL/L (98-107); POTASSIUM 4.3 MMOL/L (3.6-5.0); SODIUM 138 MMOL/L (135-145)
[2021-07-31 16:34] LABS: CALCIUM 8.9 MG/DL (8.5-10.1)
[2021-07-31 16:35] LABS: GLUCOSE 168 MG/DL (70-105); TOTAL PROTEIN 7.8 GM/DL (6.4-8.2)
[2021-07-31 16:37] LABS: CARBON DIOXIDE 23 MMOL/L (21-32)
[2021-07-31 16:39] LABS: ALKALINE PHOSPHATASE 78 U/L (40-136); CREATININE SERUM 2.05 MG/DL (0.60-1.30); GFR ESTIMATED 31
[2021-07-31 16:40] LABS: BUN/CREATININE RATIO 14
[2021-07-31 16:42] LABS: ALANINE AMINOTRANSFERASE 19 U/L (0-55); MAGNESIUM 1.9 MG/DL (1.6-2.4)
[2021-07-31 17:02] LABS: TSH (THYROID ANALYZER) 0.67 UIU/ML (0.35-4.94)
--- NOTE | 2021-07-31 17:05 | Diagnostic Imaging Report ---
INDICATION: Shortness of air. TIME OF EXAM: 4:31 p.m. COMPARISON: Correlation is made with prior chest from 12/11/2020. FINDINGS: The heart size is stable. Right hemidiaphragm is chronically elevated. No infiltrates are seen. There is no evidence of congestive failure. No effusion or pneumothorax is detected. IMPRESSION: No acute cardiopulmonary process is detected. Dictated by: Dictated on workstation # [id number]
[2021-07-31] MEDS ORDERED: ONDANSETRON 4 MG/2 ML (SDV) Z0FRAN IVP ONE (18:30)
[2021-07-31] MEDS ORDERED: HYDR-3923 PO (19:37)
--- NOTE | 2021-07-31 19:37 | ED Cardiac General ---
History of Present Illness General Chief Complaint: Cardiac/General Problems Stated Complaint: HIGH BLOOD PRESSURE Nursing Triage Note: AMB TO ROOM WITH C/O B/P BEING UP HAS BEEN 194/[address] BRADFORD YESTERDAY [place] PATCH STARATED REPORTS BENSON WORKD FOR A WHILE AND NOW B/P ELEVATED. AGAIN. PATIENT ANXIOUS ON ADMIT. Source: patient, old records Exam Limitations: no limitations History of Present Illness Date Seen by Provider: Jul 31, 2021 Time Seen by Provider: 15:59 Allergies and Home Medications Allergies Coded Allergies: Sulfa (Sulfonamide Antibiotics) (Unverified Allergy, Unknown, 10/10/19) Patient Home Medication List Amlodipine Besylate (Amlodipine Besylate) 10 Mg Tablet, 10 MG PO DAILY Prescribed by: MARIO SULLIVAN on 12/19/20 1239 Amoxicillin/Potassium Clav (Amox Tr-K Clv 875-125 mg Tab) 1 Each Tablet, 875 MG PO BID WITH MEALS Prescribed by: MARIO SULLIVAN on 12/19/20 1239 Carvedilol (Carvedilol) 12.5 Mg Tablet, 25 MG PO BID Prescribed by: MARIO SULLIVAN on 12/19/20 1239 Clonidine HCl (Clonidine HCl) 0.3 Mg Tablet, 0.3 MG PO BID Prescribed by: MARIO SULLIVAN on 12/20/20 1451 Finasteride (Finasteride) 5 Mg Tablet, 5 MG PO DAILY Prescribed by: MARIO SULLIVAN on 12/19/20 1239 Fluticasone Propionate (Fluticasone Propionate) 16 Gm [place].susp, 1 SPRAY NSEACH DAILY, (Reported) Entered as Reported by: JOSE LUIS HUNTER on 12/11/20 1529 Furosemide (Furosemide) 40 Mg Tablet, 40 MG PO DAILY, (Reported) Entered as Reported by: ALECIA HERRERA on 10/17/18 1427 Hydralazine HCl (Hydralazine HCl) 25 Mg Tablet, 25 MG PO TID Prescribed by: ARAMIS ROD on 07/31/21 1937 Insulin Detemir (Levemir Flextouch) 100 Unit/1 Ml Insuln.pen, 25 UNIT SQ BID, (Reported) Entered as Reported by: VALENTINA العلي on 10/11/19 1034 Isosorbide Mononitrate (Isosorbide Mononitrate ER) 120 Mg Tab.er.24h, 120 MG PO DAILY, (Reported) Entered as Reported by: RASHIDA CLAROS on 10/10/19 1238 Omeprazole (Omeprazole) 40 Mg Capsule.dr, 40 MG PO DAILY, (Reported) Entered as Reported by: JOSE LUIS HUNTER on 12/11/20 1529 Tamsulosin HCl (Flomax) 0.4 Mg Cap, 0.4 MG PO DAILY, (Reported) Entered as Reported by: RASHIDA CLAROS on 10/10/19 1238 Tramadol HCl (Tramadol HCl) 50 Mg Tablet, 50 MG PO TID, (Reported) Entered as Reported by: JOSE LUIS HUNTER on 12/11/20 1529 Past Nqrytbn-Nzedhg-Bkmmmd Hx Patient Social History Tobacco Use?: No Substance use?: No Immunizations Up To Date Tetanus Booster (TDap): Less than 5yrs First/Initial COVID19 Vaccinat: January COVID19 Vaccination Zoltan: JANUARY COVID Vaccine 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: JESÚSNC Seasonal Allergies Seasonal Allergies: No Past Medical History Surgeries: Yes (CARDIAC CATH --NO INTERVENTION) Cardiac Respiratory: Yes (Pneumonia patient states "when i was 1") Pneumonia Cardiac: Yes (CARDIAC CATH-NO INTERVENTION;NSTEMI 10/2019;[facility] RIGHT LEG EDEMA- US NEGATIVE) Chronic Edema/Swelling, Coronary Artery Disease, Heart Attack, High Cholesterol, Hypertension Neurological: Yes (PERIPHERAL NEUROPATHY) Neuropathy Genitourinary: Yes (Chronic kidney disease stage 3 ; GFR TYPICALLY IN 30'S) Prostate Problems, Renal Failure Gastrointestinal: Yes (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) Gall Bladder Disease Musculoskeletal: No Endocrine: Yes (SELF MEDICATES WITH HIS INSULIN; OBESITY) Diabetes, Insulin dep HEENT: No (patient wears glasses ) Loss of Vision: Denies Hearing Impairment: Denies Cancer: No Psychosocial: No Integumentary: No Blood Disorders: No Family Medical History Cardiovascular disease 19 FATHER Hypertension 19 FATHER CAD Over 55 Years Old, Hypertension PAST SURGICAL HISTORY: -CARDIAC CATH 11/09/19--DIFFUSELY CALCIFIED CORONARY ARTERIES, SMALL VESSEL DISEASE, NO INTERVENTION - Physical Exam Vital Signs Vital Signs - First Documented 07/31/21 07/31/21 15:38 17:55 Pulse 91 Resp 18 B/P (MAP) 225/105 (145) Pulse Ox 95 O2 Delivery Room Air Capillary Refill : Height, Weight, BMI Height: 5'7.00" Weight: 200lbs. oz. 90.797691jx; 39.00 BMI Method:Estimated Progress/Results/Core Measures Results/Orders Lab Results Laboratory Tests Test 07/31/21 16:15 Range/Units White Blood Count 9.8 4.3-11.0 10^3/uL Red Blood Count 5.06 4.30-5.52 10^6/uL Hemoglobin 15.1 13.3-17.7 g/dL Hematocrit 46 40-54 % Mean Corpuscular Volume 90 80-99 fL Mean Corpuscular Hemoglobin 30 25-34 pg Mean Corpuscular Hemoglobin Concent 33 32-36 g/dL Red Cell Distribution Width 12.8 10.0-14.5 % Platelet Count 253 130-400 10^3/uL Mean Platelet Volume 9.9 9.0-12.2 fL Immature Granulocyte % (Auto) 0 % Neutrophils (%) (Auto) 70 42-75 % Lymphocytes (%) (Auto) 18 12-44 % Monocytes (%) (Auto) 9 0-12 % Eosinophils (%) (Auto) 2 0-10 % Basophils (%) (Auto) 1 0-10 % Neutrophils # (Auto) 6.8 1.8-7.8 10^3/uL Lymphocytes # (Auto) 1.8 1.0-4.0 10^3/uL Monocytes # (Auto) 0.9 0.0-1.0 10^3/uL Eosinophils # (Auto) 0.2 0.0-0.3 10^3/uL Basophils # (Auto) 0.1 0.0-0.1 10^3/uL Immature Granulocyte # (Auto) 0.0 0.0-0.1 10^3/uL Sodium Level 138 135-145 MMOL/L Potassium Level 4.3 3.6-5.0 MMOL/L Chloride Level 103 98-107 MMOL/L Carbon Dioxide Level 23 21-32 MMOL/L Anion Gap 12 5-14 MMOL/L Blood Urea Nitrogen 28 H 7-18 MG/DL Creatinine 2.05 H 0.60-1.30 MG/DL Estimat Glomerular Filtration Rate 31 BUN/Creatinine Ratio 14 Glucose Level 168 H 70-105 MG/DL Calcium Level 8.9 8.5-10.1 MG/DL Corrected Calcium 9.3 8.5-10.1 MG/DL Magnesium Level 1.9 1.6-2.4 MG/DL Total Bilirubin 1.0 0.1-1.0 MG/DL Aspartate Amino Transf (AST/SGOT) 26 5-34 U/L Alanine Aminotransferase (ALT/SGPT) 19 0-55 U/L Alkaline Phosphatase 78 40-136 U/L Troponin I < 0.028 <0.028 NG/ML B-Type Natriuretic Peptide 157.6 H <100.0 PG/ML Total Protein 7.8 6.4-8.2 GM/DL Albumin 3.5 3.2-4.5 GM/DL TSH [facility] 0.67 0.35-4.94 UIU/ML My Orders Orders - ARAMIS CHAMORRO MD BNP (07/31/21 15:59) Cbc With Automated Diff (07/31/21 15:59) Comprehensive Metabolic Panel (07/31/21 15:59) Magnesium (07/31/21 15:59) Thyroid Analyzer (07/31/21 15:59) Ed Iv/Invasive Line Start (07/31/21 15:59) Ekg Tracing (07/31/21 15:59) Monitor-Rhythm Ecg Trace Only (07/31/21 15:59) Hydralazine Injection (Apresoline Inject (07/31/21 16:15) Troponin I (07/31/21 16:12) Chest 1 View, Ap/Pa Only (07/31/21 16:12) Ondansetron Injection (Zofran Injectio (07/31/21 18:30) Hydralazine Injection (Apresoline Inject (07/31/21 18:30) Tramadol Tablet (Ultram Tablet) (07/31/21 19:45) Medications Given in ED Current Medications Medications Dose Ordered Sig/Laya Route Start Time Stop Time Status Last Admin Dose Admin Hydralazine HCl 10 mg ONCE ONCE IV 07/31/21 16:15 07/31/21 16:16 DC 07/31/21 17:12 10 MG Hydralazine HCl 10 mg ONCE ONCE IV 07/31/21 18:30 07/31/21 18:31 DC 07/31/21 18:50 5 MG Ondansetron HCl 8 mg ONCE ONCE IVP 07/31/21 18:30 9/28/21 18:31 DC 07/31/21 18:50 8 MG Vital Signs/I&O 07/31/21 07/31/21 07/31/21 15:38 17:38 17:55 Pulse 91 122 97 Resp 18 18 B/P (MAP) 225/105 (145) 209/109 179/93 Pulse Ox 95 96 O2 Delivery Room Air Blood Pressure Mean: 121 Initial ECG Impression Date: Jul 31, 2021 Initial ECG Impression Time: 16:08 Initial ECG Rate: 91 Initial ECG Rhythm: Normal Sinus Initial ECG Impression: Normal Comment Normal sinus rhythm with no ST elevation or depression. No abnormal intervals or axis deviation. Departure Impression Primary Impression: Hypertensive urgency Additional Impressions: Acute headache Qualified Codes: R51.9 - Headache, unspecified Chest discomfort Disposition: HOME, SELF-CARE Condition: Improved Departure-Patient Inst. Decision time for Depature: 19:32 Referrals: BRADY MADDOX MD (PCP/Family) Primary Care Physician Patient Instructions: High Blood Pressure in Adults Add. Discharge Instructions: Hydralazine this seemed to work well in the emergency room for reducing your blood pressure. Please use the new prescription to increase your hydralazine dose to 25 mg 3 times daily. While you are awaiting this new prescription, you may simply take 2 of your 10 mg tablets (20 mg total) 3 times a day until you have the new prescription. Try to limit checking your blood pressure to 3 times or less per day. Checking it more often may induce anxiety and actually increase your blood pressure. Follow-up with Dr. Maddox within the next 48 hours for repeat blood pressure check. Seek consultation with a knitting tester as soon as possible. Dr. Maddox's office can help facilitate this. If your blood pressure is unacceptably high with a systolic measurement (top number) greater than 185 this evening, you may take an additional hydralazine 10 mg tablet. You may continue taking Ultram (tramadol) as previously prescribed for headache. Call with questions or concerns. Return to the emergency room if you have worsening symptoms. All discharge instructions reviewed with patient and/or family. Voiced understanding. Scripts Hydralazine HCl (Hydralazine HCl) 25 Mg Tablet 25 MG PO TID, #90 TAB Prov: ARAMIS CHAMORRO MD 07/31/21 Copy Copies To 1: BRADY MADDOX MD Copies To 2: JINA CHURCH MD, JOSHUA T MD Jul 31, 2021 19:37
[2021-07-31 19:48] VITALS: BP 168/93
== END 2021-07-31 19:48 | disposition home or self-care (01) ==
LOC: EDUNIT# 15:21 → ER 15:24
DX: I10 Essential (primary) hypertension (principal); R51.9 Headache, unspecified; R07.89 Other chest pain; I25.2 Old myocardial infarction; E11.9 Type 2 diabetes mellitus without complications; Z79.4 Long term (current) use of insulin
CPT/HCPCS: 36415; 71045; 80053; 83735; 83880; 84443; 84484; 85025; 93005; 93041

== ENCOUNTER 2021-08-03 22:52 | Emergency (ER) | payer MEDICARE ==
[~2021-08-03 22:52] MED LIST changes: +HYDR-3923 PO
--- OUTSIDE RECORDS SUMMARY | 2021-08-03 22:58 | XMS REPORT | CCD ---
Author Author Artie Maddox Organization Anny Maddox MD, [facility] Address [address] [place] [address] Phone Care Team Providers Care [facility] Supervisor Name Role Phone Anny Maddox PP Unavailable CCM Unavailable Summary Purpose Interface Exchange Insurance Providers Payer name Policy type / Coverage type Covered libertarian ID Effective Begin Date Effective End Date [employer] Solutions Medicare Part B [id number] Un known Unknown Family history Father Diagnosis [...] of children Unknown 3 two sons live [facility] and 1 dtr lives in [facility] 03/19/2021 Employment Unknown 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 [employer] 03/19/[address]: 678138259 Never smoker 03/19/[address]: 407850520 Never drinks alcohol 2020 Allergies, Adverse Reactions, [...] disease, stage 3b ICD-10: N18.32 03/19/2021 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 ICD-10: Z79.4 03/19/2021 Active Medications Medication Codes Instructions Start Date Stop Date Status Fill Instructions carvedilol 25 mg tablet RxNorm: 456165 Take 1 Tablet(s) Oral tw o times a day 08/03/2021 10/01/2021 Active hydralazine 10 mg tablet RxNorm: 141746 Take 1 Tablet(s ) Oral two times a day noon and HS 07/23/2021 08/21/2021 Active omeprazole 40 mg capsule,delayed release RxNorm: 736961 Take 1 Capsule(s) Oral every day 07/23/2021 10/20/2021 Active clonidine 0.3 mg/24 hr weekly transdermal patch RxNorm: 9986 79 Take 1 Patch Transdermal weekly 07/23/2021 07/31/2021 Inactive please delive r to pt's home - use good rx if more than 40$ with regular insurance cefdinir 300 mg capsule RxNorm: 416099 Take 1 Capsule(s) Oral t wo times a day 07/19/2021 07/25/2021 Inactive cefdinir 300 mg capsule RxNorm: 298989 Take 1 Capsule(s) Oral t wo times a day 07/19/2021 07/19/2021 Inactive hydralazine 10 mg tablet RxNorm: 406940 Take 1 Tablet(s ) Oral two times a day noon and HS 07/13/2021 07/13/2021 Inactive finasteride 5 mg tablet RxNorm: 381166 Take 1 Tablet(s) Oral ev harjinder day 05/31/2021 08/28/2021 Active tamsulosin 0.4 mg capsule RxNorm: 379472 Take 1 Capsule(s) Oral every day 05/31/2021 08/28/2021 Active carvedilol 25 mg tablet RxNorm: 855847 Take 1 Tablet(s) Oral tw o times a day 05/18/2021 07/16/2021 Inactive isosorbide mononitrate ER 60 mg tablet,extended release 24 h r RxNorm: 133493 2 Tablet(s) Oral every day 04/26/2021 04/20/2022 Active hydralazine 10 mg tablet RxNorm: 700192 Take 1 Tablet(s ) Oral every night at bedtime 04/26/2021 05/25/2021 Inactive hydralazine 10 mg tablet RxNorm: 071885 Take 1 Tablet(s ) Oral every night at bedtime 04/26/2021 04/26/2021 Inactive losartan 50 mg tablet RxNorm: 386226 Take 1 Tablet(s) Oral two times a day 04/23/2021 04/17/2022 Active dc amlodipine omeprazole 40 mg capsule,delayed release RxNorm: 775802 Take 1 Capsule(s) Oral every day 04/23/2021 07/21/2021 Inactive losartan 50 mg tablet RxNorm: 869076 1 Tablet(s) Oral every nig ht at bedtime 04/12/2021 04/22/2021 Inactive dc amlodipine losartan 50 mg tablet RxNorm: 618989 1 Tablet(s) Oral every nig ht at bedtime 04/12/2021 04/11/2021 Inactive clonidine HCl 0.3 mg tablet RxNorm: 504330 1 Tablet(s) Oral two times a day 04/04/2021 07/22/2021 Inactive Voltaren Arthritis Pain 1 % topical gel RxNorm: 336974 2 Gram(s) Topical four times a day as needed may increase to 4 grams if needed 03/29/202103/04 Inactive Voltaren Arthritis Pain 1 % topical gel RxNorm: 919383 2 Gram(s) Topical four times a day as needed may increase to 4 grams if needed to affected area of pain 03/29/2021 07/26/2021 Inactive Colace 100 mg capsule RxNorm: 6071032 2 Capsule(s) Oral every day 0 03/19/2021 No Stop Date Active Novolog Flexpen U-100 Insulin aspart 100 unit/mL (3 mL ) subcutaneous RxNorm: 1149078 6-7 Unit(s) Subcutaneous before meals 03/19/2021 No Stop Date Act josh Tradjenta 5 mg tablet RxNorm: 1017506 1 Tablet(s) Oral every day No Stop Date Active furosemide 40 mg tablet RxNorm: 003761 1 Tablet(s) Oral every day 0 03/19/2021 No Stop Date Active Levemir FlexTouch U-100 Insulin 100 unit/mL (3 mL) sub cutaneous pen RxNorm: 340307 25 Unit(s) Subcutaneous two times a day 03/19/2021 No Stop Date A ctive Aspirin Low Dose 81 mg tablet,delayed release RxNorm: 993356 1 Tablet(s) Oral every day 03/19/2021 No Stop Date Active Vitamin D3 125 mcg (5,000 unit) tablet RxNorm: 278896 1 Tablet(s) Oral every day 03/19/2021 No Stop Date Active tamsulosin 0.4 mg capsule RxNorm: 241030 1 Capsule(s) Oral every da y 03/19/2021 05/31/2021 Inactive clonidine HCl 0.3 mg tablet RxNorm: 457999 1 Tablet(s) Oral two times a day 03/19/2021 04/03/2021 Inactive isosorbide mononitrate ER 120 mg tablet,extended release 24 hr RxNorm: 510599 1 Tablet(s) Oral every day 03/19/2021 04/26/2021 Inactive omeprazole 40 mg capsule,delayed release RxNorm: 669869 1 Capsule(s) Oral every day 03/19/2021 04/23/2021 Inactive finasteride 5 mg tablet RxNorm: 236014 1 Tablet(s) Oral every day 0 03/19/2021 05/31/2021 Inactive carvedilol 25 mg tablet RxNorm: 500627 1 Tablet(s) Oral two drake es a day 03/19/2021 05/18/2021 Inactive amlodipine 2.5 mg tablet RxNorm: 761038 1 Tablet(s) Oral every day 03/19/2021 04/09/2021 Inactive PreserVision Lutein oral RxNorm: 579628 oral 03/19/2021 Active Medication Administered No Medication Administered data Immunizations Vaccine Codes Date Status Covid-19 CVX: 01/26/2021 Covid-19 CVX: 12/29/2020 Pneumococcal (Adult) CVX: 33 08/03/2020 Results Observation Observation Code Item Item Code Result Date S ervice Location %Hba1C Weo104 % HbA1c 51601-2 8.2 % 05/28/2021 Unknown %Hba1C Jlz253 Gluc Ave 189 mg/dL 05/28/2021 Unknown Comp Metabolic Esi939 NA 142 mEq/L 05/28/2021 Unkn own Comp Metabolic Ytw476 K 4.1 mEq/L 05/28/2021 Unkn own Comp Metabolic Qhv563 CL 104 mEq/L 05/28/2021 Unkn own Comp Metabolic Yeu609 CO2 29.0 mEq/L 05/28/2021 Unk nown Comp Metabolic Ilj282 ANION GAP 13 05/28/2021 Unkn own Comp Metabolic Ldk439 GLUCOSE 169 mg/dL 05/28/2021 Unkn own Comp Metabolic Ykn333 Creat 1.9 mg/dL 05/28/2021 Unkn own Comp Metabolic Gve479 eGFR 37 ml/min/1.73m2 05/28/20 21 Unknown Comp Metabolic Zcr843 BUN 35 mg/dL 05/28/2021 Unkn own Comp Metabolic Dwf569 B/C Ratio 18.7 Ratio 05/28/2021 Unk nown Comp Metabolic Ckl509 CALCIUM 8.7 mg/dL 05/28/2021 Unkn own Comp Metabolic Cil788 ALK PHOS 70 U/L 05/28/2021 Unkn own Comp Metabolic Qxx660 AST(SGOT) 17 U/L 05/28/2021 Unkn own Comp Metabolic Nii753 ALT(SGPT) 14 U/L 05/28/2021 Unkn own Comp Metabolic Yjp434 BILI T 0.5 mg/dL 05/28/2021 Unkn own Comp Metabolic Pbx825 ALBUMIN 3.4 g/dL 05/28/2021 Unkn own Comp Metabolic Wwi072 TPRO 6.8 g/dL 05/28/2021 Unkn own Comp Metabolic Vnl561 GLOB 3.4 g/dL 05/28/2021 Unkn own Comp Metabolic Mqj264 A/G Ratio 1.0 Ratio 05/28/2021 Unkn own Comp Metabolic Szd488 Osmo 295 mOsmo 05/28/2021 Unkn own Cbc [...] 05/28/20 21 Unknown Cbc With Differential Ord2 Richardson% 12.7 % 05/28/20 21 Unknown Cbc With [...] K/ul 021 Unknown Cbc With Differential Ord2 Richardson ABS# 1.2 K/ul 05/28/20 21 Unknown Cbc With Differential Ord2 Eos ABS# 0.3 K/ul 05/28/20 21 Unknown Cbc With Differential Ord2 Baso ABS# 0.0 K/ul 05/28/20 21 Unknown Procedures No Procedures data Vital Signs Date Vital 07/23/2021 Blood Pressure 1: 136/84 Code: 8480-6 BMI: 39.6 Code: 97409-7 Heart Rate 1: 80 bpm Height: 5'9" Code: 8302-2 Respiratory Rate: 16 bpm SpO2: 96% Temperature: 36.2 (C) / 97.1 (F) Weight: 268 lbs Code: 33330-4 04/23/2021 Blood Pressure 1: 124/80 Code: 8480-6 Bl ood Pressure 1: 150/82 Code: 8480-6 BMI: 39.9 Code: 62227-5 Heart Rate 1: 81 bpm Height: 5'9" Code: 8302-2 Respiratory Rate: 16 bpm SpO2: 96% Temperature: 36.1 (C) / 96.9 (F) We ight: 270 lbs Code: 87913-7 03/19/2021 Blood Pressure 1: 134/72 Code: 8480-6 BMI: 40.5 Code: 85737-0 Heart Rate 1: 77 bpm Height: 5'9" Code: 8302-2 Respiratory Rate: 18 bpm SpO2: 96% Temperature: 36.7 (C) / 98.0 (F) Weight: 274 lbs 5 oz Code: 50014-8 Functional Status No Functional Status data Reason For Visit Reason For Visit Effective Dates Notes diabetes mellitus 07/23/2021 hypertension 04/23/2021 hypertension 03/19/2021 Encounters Encounter Performer Location Codes Date ([id number]) [id number] EST. PATIENT, LEVEL IV Diagnosis: Essential (primary) hypertension[ICD10: I10] Diagnosis: Chronic kidney disease, stage 3b[ICD10: N18.32] Anny Maddox MD, [facility] CPT-4: 09093 07/23/2021 ([id number]) 06929 EST. 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[ICD10: I87.2] Anny Maddox MD, [facility] CPT-4: 64780 04/23/2021 ([id number]) OFFICE/OUTPATIENT VISIT NEW Diagnosis: Essential (primary) hypertension[ICD10: I10] Diagnosis: Chronic kidney disease, stage 3b[ICD10: N18.32] 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 07/23/2021 [facility]ment: [facility] [phone] [id number] [place] (15 min) Moderate 07/23/2021 Patient Education: Patient Medication Summary Completed 07/23/2021 Patient Education: Patient Medication Summary Completed 05/25/2021 Visit Plan: Gait imbalance - referral to [facility] for balance therapy Diabetes mellitus - chronic - pt insulin dependent, has not been managing his diabetes very well with dietary indescretion, pt has been referred to flight controls engineer. Peripheral edema - with peripheral vascular disease [...] acute concerns. 04/23/2021 Appointment: An[facility] Maddox [facility] [phone] [facility] [place] (15 min) Moderate 04/23/2021 Patient Education: Patient Medication Summary Completed 04/23/2021 Visit Plan: Chronic renal failure - defe r to Nephrology. Pt has not been following a renal diet - will send referral to flight controls engineer for education of patient. Diabetes mellitus - [...] clean out of his ears. referral to flight controls engineer for swelling, renal disease and diabetes. 03/19/2021 [...] renal diet - will send referral to flight controls engineer for education of patient. increase the losartan to 50mg twice lenora y . Gait imbalance - referral to [facility] for balance therapy Diabetes mellitus - chronic - pt insulin dependent, has not been managing his diabetes very well with dietary indescretion, pt has been referred to flight controls engineer. Peripheral edema - with peripheral vascular disease [...] renal diet - will send referral to flight controls engineer for education of patient. Diabetes mellitus - [...] clean out of his ears. referral to flight controls engineer for swelling, renal disease and diabetes. Medical Equipment No Medical Equipment data Health Concerns Section Health Concerns data not found Goals Section Goals data not found Interventions Section Interventions data not found Health Status Evaluations/Outcomes Section Health Status Evaluations/Outcomes data not found Advance Directives No Advance Directive data
[2021-08-03 23:27] LABS: BASOPHILS # (AUTO) 0.1 10^3/uL (0.0-0.1); BASOPHILS % (AUTO) 1 % (0-10); EOSINOPHILS # (AUTO) 0.2 10^3/uL (0.0-0.3); EOSINOPHILS % (AUTO) 2 % (0-10); HEMATOCRIT 48 % (40-54); HEMOGLOBIN 15.8 g/dL (13.3-17.7); LYMPHOCYTES # (AUTO) 2.8 10^3/uL (1.0-4.0); LYMPHOCYTES % (AUTO) 25 % (12-44); MEAN CORPUSCULAR HEMOGLOBIN 30 pg (25-34); MEAN CORPUSCULAR HGB CONC 33 g/dL (32-36); MEAN CORPUSCULAR VOLUME 90 fL (80-99); MONOCYTES # (AUTO) 1.3 10^3/uL (0.0-1.0); MONOCYTES % (AUTO) 12 % (0-12); NEUTROPHILS # (AUTO) 6.6 10^3/uL (1.8-7.8); NEUTROPHILS % (AUTO) 60 % (42-75); PLATELET COUNT 282 10^3/uL (130-400); WHITE BLOOD COUNT 10.9 10^3/uL (4.3-11.0)
[2021-08-03] MEDS ORDERED: hydrALAZINE (APESOLINE) 20 MG/ML VIAL IV ONE (23:30)
--- NOTE | 2021-08-03 23:34 | ED Cardiac General ---
History of Present Illness General Chief Complaint: Cardiac/General Problems Stated Complaint: HIGH BLOOD PRESSURE Source: patient (VERY DIFFICULT, LIMTED HISTORIAN. 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 ), old records History of Present Illness Date Seen by Provider: Aug 03, 2021 Time Seen by Provider: 23:00 Initial Comments PT ARRIVES VIA POV FROM HOME--PT LIVES ALONE C/O ELEVATED BLOOD PRESSURE--STATES IT WAS "224" PT STATES THE ONLY MEDICATION HE TAKES FOR BLOOD PRESSURE IS HYDRALAZINE 10 MG--2 PILLS (20 MG) THREE TIMES A DAY STATES HE DOES NOT TAKE ANYTHING ELSE AT ALL FOR BLOOD PRESSURE PT SAW DR. VERNON ON Friday07/30/21 FOR THIS PROBLEM AND WAS SEEN HERE 07/31/21 FOR THIS PROBLEM ( PT INSISTS IT WAS JUST LAST NIGHT THAT HE WAS SEEN ) --HIS DOSE OF HYDRALAZINE WAS INCREASED TO 25 MG TID AND NEW RX WRITTEN--PT INSISTS HE IS STILL TAKING THE 2 - 10 MG TABLETS THREE TIMES A DAY. STATES HE HAS NOT STARTED TAKING THE 25 MG TABLETS YET. PT CLAIMS HE HAS CHECKED HIS BLOOD PRESSURE "4 TIMES" TODAY, PT HAS BEEN KNOWN TO CHECK HIS BLOOD PRESSURE EVERY HOUR OR MORE OFTEN THAN THAT, ON PRIOR VISITS PER MED RECONCILIATION, PT WAS PRESCRIBED CARVEDILOL 25 [address] TODAY [address] VERNON--PT STATES HE HAS NOT PICKED UP THIS PRESCRIPTION YET. PT HAS BEEN PRESCRIBED A MULTITUDE OF OTHER BLOOD PRESSURE MEDICATIONS, INCLUDING AMLODIPINE, CLONIDINE PILLS, AND CLONIDINE PATCH WAS FILLED 07/23/21, LASIX 40 MG, ISOSORBIDE ( FILLED 07/23/21), AND LOSARTAN 50 MG ( FILLED 07/23/21) IT APPEARS AMLODIPINE WAS DC'D RECENTLY, PER MED RECONCILIATION PT STATES HE HAS NOT HAD CLONIDINE PATCH ON SINCE HE WAS HERE IN ER LAST TIME PT DID NOT BRING A MEDICATION LIST WITH HIM PT WITH A MULTITUDE OF VISITS, MANY FOR DIABETES RELATED COMPLAINTS, BUT SEVERAL FOR BLOOD PRESSURE RELATED COMPLAINTS WELL. LONG HISTORY OF NONCOMPLIANCE PT STATES HE DOES NOT SEE A ESTIMATING ENGINEER PT DENIES CHEST PAIN DENIES PALPITATIONS DENIES HEADACHE DENIES ANY NEW VISION CHANGES--HAS CHRONIC POOR VISION DENIES PARESTHESIAS OR MOTOR DEFICITS C/O SLIGHT SHORTNESS OF BREATH C/O SLIGHT DIZZINESS NO CHANGE IN CHRONIC LEG SWELLING PT IS ADAMANT AND TALKING VERY LOUDLY-NEARLY SHOUTING-ON ARRIVAL, "THIS IS NOT FROM ANXIETY" --THIS WAS NOT SUGGESTED AT ANY TIME BY ANY STAFF MEMBER TIBURCIO--PT VOLUNTEERS THIS STATEMENT ON ARRIVAL PCP: DR. VERNON Allergies and Home Medications Allergies Coded Allergies: Sulfa (Sulfonamide Antibiotics) (Unverified Allergy, Unknown, 10/10/19) Patient Home Medication List Home Medication List Reviewed: Yes Amlodipine Besylate (Amlodipine Besylate) 10 Mg Tablet, 10 MG PO DAILY Prescribed by: MARIO SULLIVAN on 12/19/20 1239 Amoxicillin/Potassium Clav (Amox Tr-K Clv 875-125 mg Tab) 1 Each Tablet, 875 MG PO BID WITH MEALS Prescribed by: MARIO SULLIVAN on 12/19/20 1239 Carvedilol (Carvedilol) 12.5 Mg Tablet, 25 MG PO BID Prescribed by: MARIO SULLIVAN on 12/19/20 1239 Clonidine HCl (Clonidine HCl) 0.3 Mg Tablet, 0.3 MG PO BID Prescribed by: MARIO SULLIVAN on 12/20/20 1451 Finasteride (Finasteride) 5 Mg Tablet, 5 MG PO DAILY Prescribed by: MARIO SULLIVAN on 12/19/20 1239 Fluticasone Propionate (Fluticasone Propionate) 16 G[address] [place].susp, 1 SPRAY NSEACH DAILY, (Reported) Entered as Reported by: JOSE LUIS HUNTER on 12/11/20 1529 Furosemide (Furosemide) 40 Mg Tablet, 40 MG PO DAILY, (Reported) Entered as Reported by: ALECIA HERRERA on 10/17/18 1427 Hydralazine HCl (Hydralazine HCl) 25 Mg Tablet, 25 MG PO TID Prescribed by: ARAMIS ROD on 07/31/21 1937 Insulin Detemir (Levemir Flextouch) 100 Unit/1 Ml Insuln.pen, 25 UNIT SQ BID, (Reported) Entered as Reported by: VALENTINA العلي on 10/11/19 1034 Isosorbide Mononitrate (Isosorbide Mononitrate ER) 120 Mg Tab.er.24h, 120 MG PO DAILY, (Reported) Entered as Reported by: RASHIDA CLAROS on 10/10/19 1238 Omeprazole (Omeprazole) 40 Mg Capsule.dr, 40 MG PO DAILY, (Reported) Entered as Reported by: JOSE LUIS HUNTER on 12/11/20 1529 Tamsulosin HCl (Flomax) 0.4 Mg Cap, 0.4 MG PO DAILY, (Reported) Entered as Reported by: RASHIDA CLAROS on 10/10/19 1238 Tramadol HCl (Tramadol HCl) 50 Mg Tablet, 50 MG PO TID, (Reported) Entered as Reported by: JOSE LUIS HUNTER on 12/11/20 1529 Review of Systems Review of Systems Constitutional: dizziness EENTM: No Symptoms Reported Respiratory: See HPI, Shortness of Air Cardiovascular: See HPI Gastrointestinal: No Symptoms Reported Genitourinary: No Symptoms Reported Musculoskeletal: no symptoms reported Skin: no symptoms reported Psychiatric/Neurological: No Symptoms Reported Endocrine: No Symptoms Reported Hematologic/Lymphatic: No Symptoms Reported Past [place]-Ezgipv-Zyzzsa Hx Patient Social History Tobacco Use?: No Substance use?: No Alcohol Use?: No Immunizations Up To Date Tetanus Booster (TDap): Less than 5yrs First/Initial COVID19 Vaccinat: JANUARY Second COVID19 Vaccination Zoltan: JANUARY Seasonal Allergies Seasonal Allergies: No Past Medical History Surgery/Hospitalization HX: HOSPITALIZED 12/11-12/20/20 FOR COVID-19 AND DIVERTICULITIS. NO HYPOXIA AND NO SPECIFIC TREATMENT FOR COVID-19 AT THAT TIME. 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;DIVERTICULITIS-NO SURGERY) Diverticulosis, Gall Bladder Disease Musculoskeletal: No Endocrine: Yes (SELF MEDICATES WITH HIS INSULIN; OBESITY) Diabetes, Insulin dep HEENT: No (patient wears glasses ) Loss of Vision: Denies Hearing Impairment: Denies Cancer: No Psychosocial: No Integumentary: No Blood Disorders: No Family Medical History Cardiovascular disease 19 FATHER Hypertension 19 FATHER CAD Over 55 Years Old, Hypertension PAST SURGICAL HISTORY: -CARDIAC CATH 01/07/20--DIFFUSELY CALCIFIED CORONARY ARTERIES, SMALL VESSEL DISEASE, NO INTERVENTION - Physical Exam Vital Signs Vital Signs - First Documented Capillary Refill : Height, Weight, BMI Height: 5'7.00" Weight: 200lbs. oz. 90.641263gr; 39.00 BMI Method:Estimated General Appearance: No Apparent Distress, WD/WN, Obese, Other (CLOTHING COVERED WITH BLOOD SPOTS--FROM WHERE PT CHECKS BLOOD SUGAR AND THEN WIPES HIS FINGERS ON HIS CLOTHING, CLOTHING IS ALSO VERY DIRTY IN ADDITION TO BLOOD SPOTS. ) Respiratory: Normal Breath Sounds, No Accessory Muscle Use, No Respiratory Distress Cardiovascular: Regular Rate, Rhythm, No Murmur Gastrointestinal: Soft Extremity: Pedal Edema (3+ BILATERALLY, WITH CHRONIC VENOUS STASIS CHANGES TO BILATERAL LOWER LEGS, WITH MILD ERYTHEMA TO ANTERIOR ASPECT OF LEFT LOWER LEG, BUT IS NOT WARM TO TOUCH) Neurologic/Psychiatric: Alert, Oriented x3 (BUT POOR MEMORY, ESPECIALLY SHORT TERM), No Motor/Sensory Deficits (GROSSLY INTACT. ), roll tester II-XII Norm as Tested, Other (HOSTILE, ARGUMENTATIVE) Skin: Normal Color, Warm/Dry Progress/Results/Core Measures Results/Orders Lab Results Laboratory Tests Test 08/03/21 23:20 Range/Units White Blood Count 10.9 4.3-11.0 10^3/uL Red Blood Count 5.34 4.30-5.52 10^6/uL Hemoglobin 15.8 13.3-17.7 g/dL Hematocrit 48 40-54 % Mean Corpuscular Volume 90 80-99 fL Mean Corpuscular Hemoglobin 30 25-34 pg Mean Corpuscular Hemoglobin Concent 33 32-36 g/dL Red Cell Distribution Width 13.0 10.0-14.5 % Platelet Count 282 130-400 10^3/uL Mean Platelet Volume 10.0 9.0-12.2 fL Immature Granulocyte % (Auto) 0 % Neutrophils (%) (Auto) 60 42-75 % Lymphocytes (%) (Auto) 25 12-44 % Monocytes (%) (Auto) 12 0-12 % Eosinophils (%) (Auto) 2 0-10 % Basophils (%) (Auto) 1 0-10 % Neutrophils # (Auto) 6.6 1.8-7.8 10^3/uL Lymphocytes # (Auto) 2.8 1.0-4.0 10^3/uL Monocytes # (Auto) 1.3 H 0.0-1.0 10^3/uL Eosinophils # (Auto) 0.2 0.0-0.3 10^3/uL Basophils # (Auto) 0.1 0.0-0.1 10^3/uL Immature Granulocyte # (Auto) 0.0 0.0-0.1 10^3/uL Sodium Level 139 135-145 MMOL/L Potassium Level 4.2 3.6-5.0 MMOL/L Chloride Level 104 98-107 MMOL/L Carbon Dioxide Level 22 21-32 MMOL/L Anion Gap 13 5-14 MMOL/L Blood Urea Nitrogen 44 H 7-18 MG/DL Creatinine 2.88 #H 0.60-1.30 MG/DL Estimat Glomerular Filtration Rate 21 BUN/Creatinine Ratio 15 Glucose Level 177 H 70-105 MG/DL Calcium Level 9.2 8.5-10.1 MG/DL Corrected Calcium 9.4 8.5-10.1 MG/DL Magnesium Level 2.0 1.6-2.4 MG/DL Total Bilirubin 0.7 0.1-1.0 MG/DL Aspartate Amino Transf (AST/SGOT) 45 H 5-34 U/L Alanine Aminotransferase (ALT/SGPT) 28 0-55 U/L Alkaline Phosphatase 71 40-136 U/L Troponin I < 0.028 <0.028 NG/ML B-Type Natriuretic Peptide 98.5 <100.0 PG/ML Total Protein 8.0 6.4-8.2 GM/DL Albumin 3.7 3.2-4.5 GM/DL My Orders Orders - NOREEN CORREA DO Ed Iv/Invasive Line Start (08/03/21 23:10) Ekg Tracing (08/03/21 23:10) Monitor-Rhythm Ecg Trace Only (08/03/21 23:10) BNP (08/03/21 23:10) Cbc With Automated Diff (08/03/21 23:10) Comprehensive Metabolic Panel (08/03/21 23:10) Magnesium (08/03/21 23:10) Troponin I (08/03/21 23:10) Hydralazine Injection (Apresoline Inject (08/03/21 23:30) Carvedilol Tablet (Coreg Tablet) (08/04/21 00:30) Hydralazine Injection (Apresoline Inject (08/04/21 00:30) Medications Given in ED Current Medications Medications Dose Ordered Sig/Laya Route Start Time Stop Time Status Last Admin Dose Admin Carvedilol 25 mg ONCE ONCE PO 08/04/21 00:30 08/04/21 00:31 DC 08/04/21 00:42 25 MG Hydralazine HCl 10 mg ONCE ONCE IV 08/03/21 23:30 08/03/21 23:31 DC 08/03/21 23:46 10 MG Hydralazine HCl 10 mg ONCE ONCE IV 08/04/21 00:30 08/04/21 00:31 DC 08/04/21 00:41 10 MG Vital Signs/I&O 08/03/21 08/03/21 22:59 22:59 Temp 35.9 Pulse 90 Resp 20 B/P (MAP) 211/103 (139) O2 Delivery Room Air Room Air Progress Progress Note : Progress Note GIVEN HYDRALAZINE 10 MG IV X 2 DOSES AND CARVEDILOL 25 MG PO BP DOWN AT TIME OF DISMISSAL TO 130'S/80'S PT HAD NO SYMPTOMS DURING ER STAY PT NOTED TO BE TAKING AN UNKNOWN AMOUNT OF GLUCOSE TABS WHILE HE WAS IN ER--PT HAS CONTINUOUS GLUCOSE MONITOR, PT STATES HIS BLOOD SUGAR IS 160 AND THAT IS "EXTREMELY LOW FOR HIM" AND HE HAS TO TAKE GLUCOSE. I MOVED THE GLUCOSE TABLETS FROM HIS REACH AND ADVISED HIM THAT HIS GLUCOSE WAS 177 ON BLOOD DRAW, AND HE DID NOT NEED ADDITIONAL GLUCOSE AT THIS TIME, AND THAT WE WOULD MONITOR IT WELL, DURING HIS ER STAY. PT CONTINUES TO BE ARGUMENTATIVE ABOUT ALL ASPECTS OF CARE THROUGHOUT ENTIRE ER STAY Initial ECG Impression Date: Aug 03, 2021 Initial ECG Impression Time: 23:11 Initial ECG Rate: 87 Initial ECG Rhythm: Normal Sinus (PAC'S) Departure Impression Primary Impression: Uncontrolled hypertension Additional Impressions: IDDM (insulin dependent diabetes mellitus) Non-compliance Chronic renal failure Acute kidney injury superimposed on chronic kidney disease Disposition: HOME, SELF-CARE Condition: Improved Departure-Patient Inst. Decision time for Depature: 01:50 Referrals: BRADY VERNON MD (PCP/Family) Primary Care Physician Patient Instructions: High Blood Pressure ED, DASH Diet Add. Discharge Instructions: TAKE HYDRALAZINE 25 MG THREE TIMES A DAY TAKE CARVEDILOL 25 MG TWICE A DAY--PICK THIS PRESCRIPTION UP FIRST THING IN THE MORNING AND TAKE YOUR FIRST DOSE IN THE MORNING. DO NOT MISS DOSES OF MEDICATIONS, AND TAKE ALL OF YOUR MEDICATIONS EXACTLY PRESCRIBED FOLLOW UP WITH DR. VERNON ON FRIDAY FOR FURTHER CARE All discharge instructions reviewed with patient and/or family. Voiced understanding. NOREEN CORREA DO Aug 03, 2021 23:34
[2021-08-03 23:39] LABS: ALBUMIN 3.7 GM/DL (3.2-4.5); CHLORIDE 104 MMOL/L (98-107); POTASSIUM 4.2 MMOL/L (3.6-5.0); SODIUM 139 MMOL/L (135-145)
[2021-08-03 23:41] LABS: CALCIUM 9.2 MG/DL (8.5-10.1)
[2021-08-03 23:42] LABS: GLUCOSE 177 MG/DL (70-105)
[2021-08-03 23:43] LABS: CARBON DIOXIDE 22 MMOL/L (21-32)
[2021-08-03 23:44] LABS: BILIRUBIN,TOTAL 0.7 MG/DL (0.1-1.0)
[2021-08-03 23:45] LABS: ALKALINE PHOSPHATASE 71 U/L (40-136); CREATININE SERUM 2.88 MG/DL (0.60-1.30); GFR ESTIMATED 21
[2021-08-03 23:46] LABS: BUN/CREATININE RATIO 15
[2021-08-03 23:48] LABS: ALANINE AMINOTRANSFERASE 28 U/L (0-55)
[2021-08-04] MEDS ORDERED: hydrALAZINE (APESOLINE) 20 MG/ML VIAL IV ONE (00:30)
[2021-08-04 01:59] VITALS: BP 134/81
== END 2021-08-04 01:59 | disposition home or self-care (01) ==
LOC: EDUNIT# 22:52 → ER 22:55
DX: I10 Essential (primary) hypertension (principal); E10.22 Type 1 diabetes mellitus with diabetic chronic kidney disease; Z79.4 Long term (current) use of insulin; N18.9 Chronic kidney disease, unspecified; N17.9 Acute kidney failure, unspecified
CPT/HCPCS: 36415; 80053; 83735; 83880; 84484; 85025; 93005; 93041; 96374; 96376

== ENCOUNTER 2021-08-31 14:08 | Emergency (ER) | payer MEDICARE ==
[~2021-08-31] VITALS: Ht 175.3 cm; Wt 117.9 kg
--- OUTSIDE RECORDS SUMMARY | 2021-08-31 14:13 | XMS REPORT | CCD ---
Author Author Artie Maddox Organization Anny Maddox MD, [facility] Address [address] [place] [address] Phone Care Team Providers Care Bottling Supervisor Name Role Phone Anny Maddox PP Unavailable CCM Unavailable Summary Purpose Interface Exchange Insurance Providers Payer name Policy type / Coverage type Covered constitution party ID Effective Begin Date Effective End Date [employer] Medicare Part B [id number] Un known Unknown Family history Father Diagnosis [...] of children Unknown 3 two sons live [facility] and 1 dtr lives in [facility] 03/19/2021 Employment Unknown 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 [employer] 03/19/[address]: 633877054 Never smoker 03/19/[address]: 623252177 Never drinks alcohol 2020 Allergies, Adverse Reactions, Alerts Substance Reaction Codes Entered Date Inactivated Date Status SULFA(SULFONAMIDE ANTIBIOTICS) Unknown 03/19/2021 No In active Date Active Problems Condition Codes Effective Dates Condition Status Chronic kidney disease, stage 3b ICD-10: N18.32 ICD-9: 585.3 04/23/2021 Active Essential (primary) hypertension ICD-10: I10 ICD-9: 401.1 03/19/2021 Active Need for immunization against influenza ICD-10: Z23 ICD-9: V04.81 08/13/2021 Active Type 2 diabetes mellitus with stage [...] disease, stage 3b ICD-10: N18.32 03/19/2021 Active assisted (current) use of insulin ICD-10: Z79.4 03/19/2021 Active Medications Medication Codes Instructions Start Date Stop Date Status Fill Instructions tamsulosin 0.4 mg capsule RxNorm: 691947 Take 1 Capsule(s) Oral every day 08/29/2021 11/26/2021 Active ondansetron 4 mg disintegrating tablet RxNorm: 534874 1 Tablet(s) Oral four times a day 2021 2021 Inactive ondansetron 4 mg disintegrating tablet RxNorm: 563413 1 Tablet(s) Oral four times a day as needed 2021 08/26/2021 Inactive diclofenac 1 % topical gel RxNorm: 792996 Apply 4 Gram( s) Topical four times a day as needed for pain 08/13/2021 No Stop Date Active dispense 3 tubes - please deliver loratadine 10 mg tablet RxNorm: 321402 Take 1 Tablet(s) Oral 08/13/2021 08/07/2022 Active please deliver for t he patient hydralazine 25 mg tablet RxNorm: 174936 1 Tablet(s) Oral three times a day 08/06/2021 09/04/2021 Active carvedilol 25 mg tablet RxNorm: 432291 Take 1 Tablet(s) Oral tw o times a day 08/03/2021 10/01/2021 Active omeprazole 40 mg capsule,delayed release RxNorm: 273181 Take 1 Capsule(s) Oral every day 07/23/2021 10/20/2021 Active hydralazine 10 mg tablet RxNorm: 653041 Take 1 Tablet(s ) Oral two times a day noon and HS 07/23/2021 08/05/2021 Inactive clonidine 0.3 mg/24 hr weekly transdermal patch RxNorm: 9986 79 Take 1 Patch Transdermal weekly 07/23/2021 07/31/2021 Inactive please delive r to pt's home - use good rx if more than 40$ with regular insurance cefdinir 300 mg capsule RxNorm: 873932 Take 1 Capsule(s) Oral t wo times a day 07/19/2021 07/25/2021 Inactive cefdinir 300 mg capsule RxNorm: 647864 Take 1 Capsule(s) Oral t wo times a day 07/19/2021 07/19/2021 Inactive hydralazine 10 mg tablet RxNorm: 196733 Take 1 Tablet(s ) Oral two times a day noon and HS 07/13/2021 07/13/2021 Inactive finasteride 5 mg tablet RxNorm: 679891 Take 1 Tablet(s) Oral ev harjinder day 05/31/2021 08/28/2021 Inactive tamsulosin 0.4 mg capsule RxNorm: 493925 Take 1 Capsule(s) Oral every day 05/31/2021 08/28/2021 Inactive carvedilol 25 mg tablet RxNorm: 650604 Take 1 Tablet(s) Oral tw o times a day 05/18/2021 07/16/2021 Inactive isosorbide mononitrate ER 60 mg tablet,extended release 24 h r RxNorm: 573386 2 Tablet(s) Oral every day 04/26/2021 04/20/2022 Active hydralazine 10 mg tablet RxNorm: 891011 Take 1 Tablet(s ) Oral every night at bedtime 04/26/2021 05/25/2021 Inactive hydralazine 10 mg tablet RxNorm: 959810 Take 1 Tablet(s ) Oral every night at bedtime 04/26/2021 04/26/2021 Inactive losartan 50 mg tablet RxNorm: 936906 Take 1 Tablet(s) Oral two times a day 04/23/2021 04/17/2022 Active dc amlodipine omeprazole 40 mg capsule,delayed release RxNorm: 354791 Take 1 Capsule(s) Oral every day 04/23/2021 07/21/2021 Inactive losartan 50 mg tablet RxNorm: 348273 1 Tablet(s) Oral every nig ht at bedtime 04/12/2021 04/22/2021 Inactive dc amlodipine losartan 50 mg tablet RxNorm: 244643 1 Tablet(s) Oral every nig ht at bedtime 04/12/2021 04/11/2021 Inactive clonidine HCl 0.3 mg tablet RxNorm: 833051 1 Tablet(s) Oral two times a day 04/04/2021 07/22/2021 Inactive Voltaren Arthritis Pain 1 % topical gel RxNorm: 843908 2 Gram(s) Topical four times a day as needed may increase to 4 grams if needed 03/29/202103/04 Inactive Voltaren Arthritis Pain 1 % topical gel RxNorm: 116573 2 Gram(s) Topical four times a day as needed may increase to 4 grams if needed to affected area of pain 03/29/2021 07/26/2021 Inactive Colace 100 mg capsule RxNorm: 4465810 2 Capsule(s) Oral every day 0 03/19/2021 No Stop Date Active Novolog Flexpen U-100 Insulin aspart 100 unit/mL (3 mL ) subcutaneous RxNorm: 5469379 6-7 Unit(s) Subcutaneous before meals 03/19/2021 No Stop Date Act josh Tradjenta 5 mg tablet RxNorm: 9468767 1 Tablet(s) Oral every day No Stop Date Active furosemide 40 mg tablet RxNorm: 286403 1 Tablet(s) Oral every day 0 03/19/2021 No Stop Date Active Levemir FlexTouch U-100 Insulin 100 unit/mL (3 mL) sub cutaneous pen RxNorm: 640233 25 Unit(s) Subcutaneous two times a day 03/19/2021 No Stop Date A ctive Aspirin Low Dose 81 mg tablet,delayed release RxNorm: 634597 1 Tablet(s) Oral every day 03/19/2021 No Stop Date Active Vitamin D3 125 mcg (5,000 unit) tablet RxNorm: 855903 1 Tablet(s) Oral every day 03/19/2021 No Stop Date Active tamsulosin 0.4 mg capsule RxNorm: 424523 1 Capsule(s) Oral every da y 03/19/2021 05/31/2021 Inactive clonidine HCl 0.3 mg tablet RxNorm: 232361 1 Tablet(s) Oral two times a day 03/19/2021 04/03/2021 Inactive isosorbide mononitrate ER 120 mg tablet,extended release 24 hr RxNorm: 704474 1 Tablet(s) Oral every day 03/19/2021 04/26/2021 Inactive omeprazole 40 mg capsule,delayed release RxNorm: 495266 1 Capsule(s) Oral every day 03/19/2021 04/23/2021 Inactive finasteride 5 mg tablet RxNorm: 910697 1 Tablet(s) Oral every day 0 03/19/2021 05/31/2021 Inactive carvedilol 25 mg tablet RxNorm: 339675 1 Tablet(s) Oral two drake es a day 03/19/2021 05/18/2021 Inactive amlodipine 2.5 mg tablet RxNorm: 794275 1 Tablet(s) Oral every day 03/19/2021 04/09/2021 Inactive PreserVision Lutein oral RxNorm: 385283 oral 03/19/2021 Active Medication Administered No Medication Administered data Immunizations Vaccine Codes Date Status Influenza CVX: 135 08/13/2021 Complete Covid-19 CVX: 207 01/26/2021 Covid-19 CVX: 207 12/29/2020 Pneumococcal (Adult) CVX: 33 08/03/2020 Results Observation Observation Code Item Item Code Result Date S ervice Location %Hba1C Kuc794 % HbA1c 96959-6 8.2 % 05/28/2021 Unknown %Hba1C Tdu715 Gluc Ave 189 mg/dL 05/28/2021 Unknown Comp Metabolic Xey470 NA 142 mEq/L 05/28/2021 Unkn own Comp Metabolic Heh716 K 4.1 mEq/L 05/28/2021 Unkn own Comp Metabolic Eay732 CL 104 mEq/L 05/28/2021 Unkn own Comp Metabolic Gwp186 CO2 29.0 mEq/L 05/28/2021 Unk nown Comp Metabolic Nte445 ANION GAP 13 05/28/2021 Unkn own Comp Metabolic Hbf637 GLUCOSE 169 mg/dL 05/28/2021 Unkn own Comp Metabolic Emx436 Creat 1.9 mg/dL 05/28/2021 Unkn own Comp Metabolic Duo105 eGFR 37 ml/min/1.73m2 05/28/20 21 Unknown Comp Metabolic Ytg799 BUN 35 mg/dL 05/28/2021 Unkn own Comp Metabolic Lhm238 B/C Ratio 18.7 Ratio 05/28/2021 Unk nown Comp Metabolic Wkv965 CALCIUM 8.7 mg/dL 05/28/2021 Unkn own Comp Metabolic Ubm076 ALK PHOS 70 U/L 05/28/2021 Unkn own Comp Metabolic Kvc149 AST(SGOT) 17 U/L 05/28/2021 Unkn own Comp Metabolic Het373 ALT(SGPT) 14 U/L 05/28/2021 Unkn own Comp Metabolic Rpq390 BILI T 0.5 mg/dL 05/28/2021 Unkn own Comp Metabolic Iyc360 ALBUMIN 3.4 g/dL 05/28/2021 Unkn own Comp Metabolic Nzc085 TPRO 6.8 g/dL 05/28/2021 Unkn own Comp Metabolic Ecv630 GLOB 3.4 g/dL 05/28/2021 Unkn own Comp Metabolic Mmw481 A/G Ratio 1.0 Ratio 05/28/2021 Unkn own Comp Metabolic Eri470 Osmo 295 mOsmo 05/28/2021 Unkn own Cbc [...] 05/28/20 21 Unknown Cbc With Differential Ord2 [place]% 12.7 % 05/28/20 21 Unknown Cbc With [...] K/ul 021 Unknown Cbc With Differential Ord2 [place] ABS# 1.2 K/ul 05/28/20 21 Unknown Cbc With Differential Ord2 Eos ABS# 0.3 K/ul 05/28/20 21 Unknown Cbc With Differential Ord2 Baso ABS# 0.0 K/ul 05/28/20 21 Unknown Procedures Procedure Codes Date ADMIN INFLUENZA VIRUS VAC CPT-4: G0008 08/13/2021 IIV NO PRSV INCREASED AG IM CPT-4: 78920 08/13/2021 Vital Signs Date Vital 08/13/2021 Blood Pressure 1: 160/84 Code: 8480-6 BMI: 38.8 Code: 21873-0 Heart Rate 1: 96 bpm Height: 5'9" Code: 8302-2 Respiratory Rate: 16 bpm SpO2: 94% Temperature: 35.9 (C) / 96.7 (F) Weight: 263 lbs Code: 71733-4 07/23/2021 Blood Pressure 1: 136/84 Code: 8480-6 BMI: 39.6 Code: 25828-3 Heart Rate 1: 80 bpm Height: 5'9" Code: 8302-2 Respiratory Rate: 16 bpm SpO2: 96% Temperature: 36.2 (C) / 97.1 (F) Weight: 268 lbs Code: 03971-0 04/23/2021 Blood Pressure 1: 150/82 Code: 8480-6 Bl ood Pressure 1: 124/80 Code: 8480-6 BMI: 39.9 Code: 80794-7 Heart Rate 1: 81 bpm Height: 5'9" Code: 8302-2 Respiratory Rate: 16 bpm SpO2: 96% Temperature: 36.1 (C) / 96.9 (F) We ight: 270 lbs Code: 05764-3 03/19/2021 Blood Pressure 1: 134/72 Code: 8480-6 BMI: 40.5 Code: 68052-8 Heart Rate 1: 77 bpm Height: 5'9" Code: 8302-2 Respiratory Rate: 18 bpm SpO2: 96% Temperature: 36.7 (C) / 98.0 (F) Weight: 274 lbs 5 oz Code: 50981-8 Functional Status No Functional Status data Reason For Visit Reason For Visit Effective Dates Notes hypertension 08/13/2021 diabetes mellitus 07/23/2021 hypertension 04/23/2021 hypertension 03/19/2021 Encounters Encounter Performer Location Codes Date ([id number]) [id number] EST. 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 CPT-4: 89330 08/13/2021 ([id number]) 39032 EST. PATIENT, LEVEL IV Diagnosis: Essential (primary) hypertension[ICD10: I10] Diagnosis: Chronic kidney disease, stage 3b[ICD10: N18.32] Anny Maddox MD, [facility] CPT-4: 16602 07/23/2021 ([id number]) 00199 EST. 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 Pt has been encouraged to exercise daily. The pt has been advised to call the office if there are any acute concerns about change in blood pressure readings at home. Diabetes Mellitus - controlled - per recent FSBS reports. I have recommended for the patient to have follow up labs prior to the next office visit. The patient has been instructed to continue with current medications as previously directed, continue with regular FSBS monitoring to assure continued control of diabetes. Pt to call for any acute concerns, complaints, or if the blood glucose readings are starting to become less controlled. 08/13/2021 Appointment: Anny Maddox [facility]Ptel: [phone] [id number] (15 min) Moderate 08/13/2021 Patient Education: Patient Medication Summary Completed 08/13/2021 Visit Plan: Hypertension - uncontrolled - the [...] renal diet - will send referral to [employer] for education of patient. 07/23/2021 Appointment: Anny Maddox WPtel: [phone] [id number] [place] (15 min) Moderate 07/23/2021 Patient Education: Patient Medication Summary Completed 07/23/2021 Patient Education: Patient Medication Summary Completed 05/25/2021 Visit Plan: Gait imbalance - referral to [facility] physical therapy for balance therapy Diabetes mellitus - chronic - pt insulin dependent, has not been managing his diabetes very well with dietary indescretion, pt has been referred to [employer] tutor. Peripheral edema - with peripheral vascular disease [...] to call for acute concerns. 04/23/2021 Appointment: TanAnny WPtel: [id number] [place] (15 min) Moderate 04/23/2021 Patient Education: Patient Medication Summary Completed 04/23/2021 Visit Plan: Chronic renal failure - defe r to Nephrology. Pt has not been following a renal diet - will send referral to [employer] for education of patient. Diabetes mellitus - [...] clean out of his ears. referral to [employer] for swelling, renal disease and diabetes. 03/19/2021 Patient Education: Patient Medication Summary Completed 03/19/2021 Instructions Comment . Hypertension - improved control per hi s recent readings.- continue with current medications, continue with no added salt diet. Pt has been encouraged to exercise daily. The pt has been advised to call the office if there are any acute concerns about change in blood pressure readings at home. Diabetes Mellitus - controlled - per recent FSBS reports. I have recommended for the patient to have follow up labs prior to the next office visit. The patient has been instructed to continue with current medications as previously directed, continue with regular FSBS monitoring to assure continued control of diabetes. Pt to call for any acute concerns, complaints, or if the blood glucose readings are starting to become less controlled. We will stop Clonidine BID PO and [...] renal diet - will send referral to [employer] for education of patient. increase the losartan to 50mg twice lenora y . Gait imbalance - referral to [facility] therapy Diabetes mellitus - chronic - pt insulin dependent, has not been managing his diabetes very well with dietary indescretion, pt has been referred to [facility] [employer] math tutor. Peripheral edema - with peripheral vascular disease [...] renal diet - will send referral to [employer] for education of patient. Diabetes mellitus - [...] clean out of his ears. referral to [employer] tutor for swelling, renal disease and diabetes. Medical Equipment No Medical Equipment data Health Concerns Section Health Concerns data not found Goals Section Goals data not found Interventions Section Interventions data not found Health Status Evaluations/Outcomes Section Health Status Evaluations/Outcomes data not found Advance Directives No Advance Directive data
--- OUTSIDE RECORDS SUMMARY | 2021-08-31 14:13 | XMS REPORT | CCD ---
Author Author Artie Maddox Organization Anny Maddox MD, [facility] Address [address] [place] [address] Phone Care Team Providers Care Cloth Stock Sorter Name Role Phone Anny Maddox PP Unavailable CCM Unavailable Summary Purpose Interface Exchange Insurance Providers Payer name Policy type / Coverage type Covered green party ID Effective Begin Date Effective End Date [employer] Medicare Part B [id number] Un known Unknown Family history Father Diagnosis [...] Unknown 3 two sons live [facility] and 1 dtr lives in [facility] 03/19/2021 Employment Unknown 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 [employer] 03/19/[address]: 915828838 Never smoker 03/19/[address]: 641365994 Never drinks alcohol 2020 Allergies, Adverse Reactions, [...] disease, stage 3b ICD-10: N18.32 03/19/2021 Active senior care (current) use of insulin ICD-10: Z79.4 03/19/2021 Active Medications Medication Codes Instructions Start Date Stop Date Status Fill Instructions hydralazine 25 mg tablet RxNorm: 998085 1 Tablet(s) Oral three times a day 08/31/2021 09/29/2021 Active tamsulosin 0.4 mg capsule RxNorm: 292436 Take 1 Capsule(s) Oral every day 08/29/2021 11/26/2021 Active ondansetron 4 mg disintegrating tablet RxNorm: 539188 1 Tablet(s) Oral four times a day 2021 2021 Inactive ondansetron 4 mg disintegrating tablet RxNorm: 206329 1 Tablet(s) Oral four times a day as needed 2021 08/26/2021 Inactive diclofenac 1 % topical gel RxNorm: 218736 Apply 4 Gram( s) Topical four times a day as needed for pain 08/13/2021 No Stop Date Active dispense 3 tubes - please deliver loratadine 10 mg tablet RxNorm: 057868 Take 1 Tablet(s) Oral ev 08/13/2021 08/07/2022 Active please deliver for t he patient hydralazine 25 mg tablet RxNorm: 479104 1 Tablet(s) Oral three times a day 08/06/2021 08/31/2021 Inactive carvedilol 25 mg tablet RxNorm: 804399 Take 1 Tablet(s) Oral tw o times a day 08/03/2021 10/01/2021 Active omeprazole 40 mg capsule,delayed release RxNorm: 158762 Take 1 Capsule(s) Oral every day 07/23/2021 10/20/2021 Active hydralazine 10 mg tablet RxNorm: 289524 Take 1 Tablet(s ) Oral two times a day noon and HS 07/23/2021 08/05/2021 Inactive clonidine 0.3 mg/24 hr weekly transdermal patch RxNorm: 9986 79 Take 1 Patch Transdermal weekly 07/23/2021 07/31/2021 Inactive please delive r to pt's home - use good rx if more than 40$ with regular insurance cefdinir 300 mg capsule RxNorm: 437704 Take 1 Capsule(s) Oral t wo times a day 07/19/2021 07/25/2021 Inactive cefdinir 300 mg capsule RxNorm: 580809 Take 1 Capsule(s) Oral t wo times a day 07/19/2021 07/19/2021 Inactive hydralazine 10 mg tablet RxNorm: 691419 Take 1 Tablet(s ) Oral two times a day noon and HS 07/13/2021 07/13/2021 Inactive finasteride 5 mg tablet RxNorm: 790631 Take 1 Tablet(s) Oral ev harjinder day 05/31/2021 08/28/2021 Inactive tamsulosin 0.4 mg capsule RxNorm: 214789 Take 1 Capsule(s) Oral every day 05/31/2021 08/28/2021 Inactive carvedilol 25 mg tablet RxNorm: 580263 Take 1 Tablet(s) Oral tw o times a day 05/18/2021 07/16/2021 Inactive isosorbide mononitrate ER 60 mg tablet,extended release 24 h r RxNorm: 195230 2 Tablet(s) Oral every day 04/26/2021 04/20/2022 Active hydralazine 10 mg tablet RxNorm: 059704 Take 1 Tablet(s ) Oral every night at bedtime 04/26/2021 05/25/2021 Inactive hydralazine 10 mg tablet RxNorm: 029278 Take 1 Tablet(s ) Oral every night at bedtime 04/26/2021 04/26/2021 Inactive losartan 50 mg tablet RxNorm: 630926 Take 1 Tablet(s) Oral two times a day 04/23/2021 04/17/2022 Active dc amlodipine omeprazole 40 mg capsule,delayed release RxNorm: 366656 Take 1 Capsule(s) Oral every day 04/23/2021 07/21/2021 Inactive losartan 50 mg tablet RxNorm: 701946 1 Tablet(s) Oral every nig ht at bedtime 04/12/2021 04/22/2021 Inactive dc amlodipine losartan 50 mg tablet RxNorm: 544487 1 Tablet(s) Oral every nig ht at bedtime 04/12/2021 04/11/2021 Inactive clonidine HCl 0.3 mg tablet RxNorm: 497787 1 Tablet(s) Oral two times a day 04/04/2021 07/22/2021 Inactive Voltaren Arthritis Pain 1 % topical gel RxNorm: 648607 2 Gram(s) Topical four times a day as needed may increase to 4 grams if needed 03/29/202103/04 Inactive Voltaren Arthritis Pain 1 % topical gel RxNorm: 037692 2 Gram(s) Topical four times a day as needed may increase to 4 grams if needed to affected area of pain 03/29/2021 07/26/2021 Inactive Colace 100 mg capsule RxNorm: 8806877 2 Capsule(s) Oral every day 0 03/19/2021 No Stop Date Active Novolog Flexpen U-100 Insulin aspart 100 unit/mL (3 mL ) subcutaneous RxNorm: 1379075 6-7 Unit(s) Subcutaneous before meals 03/19/2021 No Stop Date Act josh Tradjenta 5 mg tablet RxNorm: 2745945 1 Tablet(s) Oral every day No Stop Date Active furosemide 40 mg tablet RxNorm: 676633 1 Tablet(s) Oral every day 0 03/19/2021 No Stop Date Active Levemir FlexTouch U-100 Insulin 100 unit/mL (3 mL) sub cutaneous pen RxNorm: 513468 25 Unit(s) Subcutaneous two times a day 03/19/2021 No Stop Date A ctive Aspirin Low Dose 81 mg tablet,delayed release RxNorm: 091298 1 Tablet(s) Oral every day 03/19/2021 No Stop Date Active Vitamin D3 125 mcg (5,000 unit) tablet RxNorm: 922171 1 Tablet(s) Oral every day 03/19/2021 No Stop Date Active tamsulosin 0.4 mg capsule RxNorm: 047940 1 Capsule(s) Oral every da y 03/19/2021 05/31/2021 Inactive clonidine HCl 0.3 mg tablet RxNorm: 677629 1 Tablet(s) Oral two times a day 03/19/2021 04/03/2021 Inactive isosorbide mononitrate ER 120 mg tablet,extended release 24 hr RxNorm: 903759 1 Tablet(s) Oral every day 03/19/2021 04/26/2021 Inactive omeprazole 40 mg capsule,delayed release RxNorm: 044648 1 Capsule(s) Oral every day 03/19/2021 04/23/2021 Inactive finasteride 5 mg tablet RxNorm: 265751 1 Tablet(s) Oral every day 0 03/19/2021 05/31/2021 Inactive carvedilol 25 mg tablet RxNorm: 642654 1 Tablet(s) Oral two drake es a day 03/19/2021 05/18/2021 Inactive amlodipine 2.5 mg tablet RxNorm: 571092 1 Tablet(s) Oral every day 03/19/2021 04/09/2021 Inactive PreserVision Lutein oral RxNorm: 516984 oral 03/19/2021 Active Medication Administered No Medication Administered data Immunizations Vaccine Codes Date Status Influenza CVX: 135 08/13/2021 Complete Covid-19 CVX: 207 01/26/2021 Covid-19 CVX: 207 12/29/2020 Pneumococcal (Adult) CVX: 33 08/03/2020 Results Observation Observation Code Item Item Code Result Date S ervice Location %Hba1C Qnk067 % HbA1c 74525-6 8.2 % 05/28/2021 Unknown %Hba1C Lor370 Gluc Ave 189 mg/dL 05/28/2021 Unknown Comp Metabolic Fis064 NA 142 mEq/L 05/28/2021 Unkn own Comp Metabolic Pli835 K 4.1 mEq/L 05/28/2021 Unkn own Comp Metabolic Irk533 CL 104 mEq/L 05/28/2021 Unkn own Comp Metabolic Vbr070 CO2 29.0 mEq/L 05/28/2021 Unk nown Comp Metabolic Gsx960 ANION GAP 13 05/28/2021 Unkn own Comp Metabolic Wpd037 GLUCOSE 169 mg/dL 05/28/2021 Unkn own Comp Metabolic Bny203 Creat 1.9 mg/dL 05/28/2021 Unkn own Comp Metabolic Pfr120 eGFR 37 ml/min/1.73m2 05/28/20 21 Unknown Comp Metabolic Dfy732 BUN 35 mg/dL 05/28/2021 Unkn own Comp Metabolic Myc740 B/C Ratio 18.7 Ratio 05/28/2021 Unk nown Comp Metabolic Ytd917 CALCIUM 8.7 mg/dL 05/28/2021 Unkn own Comp Metabolic Bfe595 ALK PHOS 70 U/L 05/28/2021 Unkn own Comp Metabolic Nnc158 AST(SGOT) 17 U/L 05/28/2021 Unkn own Comp Metabolic Gae480 ALT(SGPT) 14 U/L 05/28/2021 Unkn own Comp Metabolic Asc424 BILI T 0.5 mg/dL 05/28/2021 Unkn own Comp Metabolic Wqp833 ALBUMIN 3.4 g/dL 05/28/2021 Unkn own Comp Metabolic Dbi784 TPRO 6.8 g/dL 05/28/2021 Unkn own Comp Metabolic Dwb893 GLOB 3.4 g/dL 05/28/2021 Unkn own Comp Metabolic Ats477 A/G Ratio 1.0 Ratio 05/28/2021 Unkn own Comp Metabolic Mkb218 Osmo 295 mOsmo 05/28/2021 Unkn own Cbc [...] 05/28/20 21 Unknown Cbc With Differential Ord2 [place]% 12.7 % 05/28/20 21 Unknown Cbc With [...] K/ul 021 Unknown Cbc With Differential Ord2 [place] ABS# 1.2 K/ul 05/28/20 21 Unknown Cbc With Differential Ord2 Eos ABS# 0.3 K/ul 05/28/20 21 Unknown Cbc With Differential Ord2 Baso ABS# 0.0 K/ul 05/28/20 21 Unknown Procedures Procedure Codes Date ADMIN INFLUENZA VIRUS VAC CPT-4: G0008 08/13/2021 IIV NO PRSV INCREASED AG IM CPT-4: 59101 08/13/2021 Vital Signs Date Vital 08/13/2021 Blood Pressure 1: 160/84 Code: 8480-6 BMI: 38.8 Code: 62944-7 Heart Rate 1: 96 bpm Height: 5'9" Code: 8302-2 Respiratory Rate: 16 bpm SpO2: 94% Temperature: 35.9 (C) / 96.7 (F) Weight: 263 lbs Code: 54935-9 07/23/2021 Blood Pressure 1: 136/84 Code: 8480-6 BMI: 39.6 Code: 32004-7 Heart Rate 1: 80 bpm Height: 5'9" Code: 8302-2 Respiratory Rate: 16 bpm SpO2: 96% Temperature: 36.2 (C) / 97.1 (F) Weight: 268 lbs Code: 85113-8 04/23/2021 Blood Pressure 1: 150/82 Code: 8480-6 Bl ood Pressure 1: 124/80 Code: 8480-6 BMI: 39.9 Code: 02514-2 Heart Rate 1: 81 bpm Height: 5'9" Code: 8302-2 Respiratory Rate: 16 bpm SpO2: 96% Temperature: 36.1 (C) / 96.9 (F) We ight: 270 lbs Code: 16790-1 03/19/2021 Blood Pressure 1: 134/72 Code: 8480-6 BMI: 40.5 Code: 66547-6 Heart Rate 1: 77 bpm Height: 5'9" Code: 8302-2 Respiratory Rate: 18 bpm SpO2: 96% Temperature: 36.7 (C) / 98.0 (F) Weight: 274 lbs 5 oz Code: 93765-4 Functional Status No Functional Status data Reason For Visit Reason For Visit Effective Dates Notes hypertension 08/13/2021 diabetes mellitus 07/23/2021 hypertension 04/23/2021 hypertension 03/19/2021 Encounters Encounter Performer Location Codes Date [id number]) [id number] EST. 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 PATIENT, LEVEL IV Diagnosis: Essential (primary) hypertension[ICD10: I10] Diagnosis: Chronic kidney disease, stage 3b[ICD10: N18.32] Anny Maddox MD, [facility] CPT-4: 63574 07/23/2021 ([id number]) 27522 EST. 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[ICD10: I87.2] Anny Maddox MD, [facility] CPT-4: 67781 04/23/2021 ([id number]) OFFICE/OUTPATIENT VISIT NEW Diagnosis: Essential (primary) hypertension[ICD10: I10] Diagnosis: Chronic kidney disease, stage 3b[ICD10: N18.32] Diagnosis: senior care (current) use of insulin[ICD10: Z79.4] Diagnosis: 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 chronic kidney disease, with long-term current use of insulin[ICD10: E11.22] Diagnosis: Localized edema[ICD10: R60.0] Diagnosis: 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 08/13/2021 [facility]ment[facility] [phone] [id number] ([facility] min) Moderate 08/13/2021 Patient Education: Patient [...] renal diet - will send referral to power hammer operator for education of patient. 07/23/2021 Appointment: [facility] Madd[facility] [phone] [facility] (15 min) Moderate 07/23/2021 Patient Education: Patient Medication Summary Completed 07/23/2021 Patient Education: Patient Medication Summary Completed 05/25/2021 Visit Plan: Gait imbalance - referral to [facility] physical therapy for balance therapy Diabetes mellitus - chronic - pt insulin dependent, has not been managing his diabetes very well with dietary indescretion, pt has been referred to power hammer operator. Peripheral edema - with peripheral vascular [...] acute concerns. 04/23/2021 Appointment: Anny Maddox [facility]Ptel[facility] (15 min) Moderate 04/23/2021 Patient Education: Patient Medication Summary Completed 04/23/2021 Visit Plan: Chronic renal failure - defe r to Nephrology. Pt has not been following a renal diet - will send referral to power hammer operator for education of patient. Diabetes mellitus [...] clean out of his ears. referral to power hammer operator for swelling, renal disease and diabetes. [...] renal diet - will send referral to power hammer operator for education of patient. increase the losartan to 50mg twice lenora y . Gait imbalance - referral to [facility] therapy Diabetes mellitus - chronic - pt insulin dependent, has not been managing his diabetes very well with dietary indescretion, pt has been referred to power hammer operator. Peripheral edema - with peripheral vascular [...] renal diet - will send referral to power hammer operator for education of patient. Diabetes mellitus [...] clean out of his ears. referral to power hammer operator for swelling, renal disease and diabetes. Medical Equipment No Medical Equipment data Health Concerns Section Health Concerns data not found Goals Section Goals data not found Interventions Section Interventions data not found Health Status Evaluations/Outcomes Section Health Status Evaluations/Outcomes data not found Advance Directives No Advance Directive data
--- OUTSIDE RECORDS SUMMARY | 2021-08-31 14:13 | XMS REPORT | CCD ---
Author Author Artie Maddox Organization Anny Maddox MD, [facility] Address [address] [place] [address] Phone Care Team Providers Care Mobile Service Rv Technician Name Role Phone Anny Maddox PP Unavailable CCM Unavailable Summary Purpose Interface Exchange Insurance Providers Payer name Policy type / Coverage type Covered libertarian ID Effective Begin Date Effective End Date [employer] Solutions Medicare Part B [id number] Un known Unknown Family history Father Diagnosis [...] of children Unknown 3 two sons live [facility] and 1 dtr lives in [facility] 03/19/2021 Employment Unknown 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 03/19/[address]: 202066568 Never smoker 03/19/[address]: 169772999 Never drinks alcohol 2020 Allergies, Adverse Reactions, [...] disease, stage 3b ICD-10: N18.32 03/19/2021 Active retirement (current) use of insulin ICD-10: Z79.4 03/19/2021 Active Medications Medication Codes Instructions Start Date Stop Date Status Fill Instructions ondansetron 4 mg disintegrating tablet RxNorm: 110667 1 Tablet(s) Oral four times a day 2021 2021 Inactive ondansetron 4 mg disintegrating tablet RxNorm: 472780 1 Tablet(s) Oral four times a day as needed 2021 08/26/2021 Active diclofenac 1 % topical gel RxNorm: 659266 Apply 4 Gram( s) Topical four times a day as needed for pain 08/13/2021 No Stop Date Active dispense 3 tubes - please deliver loratadine 10 mg tablet RxNorm: 037633 Take 1 Tablet(s) Oral 08/13/2021 08/07/2022 Active please deliver for t he patient hydralazine 25 mg tablet RxNorm: 418665 1 Tablet(s) Oral three times a day 08/06/2021 09/04/2021 Active carvedilol 25 mg tablet RxNorm: 008714 Take 1 Tablet(s) Oral tw o times a day 08/03/2021 10/01/2021 Active omeprazole 40 mg capsule,delayed release RxNorm: 788446 Take 1 Capsule(s) Oral every day 07/23/2021 10/20/2021 Active hydralazine 10 mg tablet RxNorm: 658487 Take 1 Tablet(s ) Oral two times a day noon and HS 07/23/2021 08/05/2021 Inactive clonidine 0.3 mg/24 hr weekly transdermal patch RxNorm: 9986 79 Take 1 Patch Transdermal weekly 07/23/2021 07/31/2021 Inactive please delive r to pt's home - use good rx if more than 40$ with regular insurance cefdinir 300 mg capsule RxNorm: 834502 Take 1 Capsule(s) Oral t wo times a day 07/19/2021 07/25/2021 Inactive cefdinir 300 mg capsule RxNorm: 675447 Take 1 Capsule(s) Oral t wo times a day 07/19/2021 07/19/2021 Inactive hydralazine 10 mg tablet RxNorm: 733987 Take 1 Tablet(s ) Oral two times a day noon and HS 07/13/2021 07/13/2021 Inactive finasteride 5 mg tablet RxNorm: 792316 Take 1 Tablet(s) Oral ev harjinder day 05/31/2021 08/28/2021 Active tamsulosin 0.4 mg capsule RxNorm: 266029 Take 1 Capsule(s) Oral every day 05/31/2021 08/28/2021 Active carvedilol 25 mg tablet RxNorm: 401104 Take 1 Tablet(s) Oral tw o times a day 05/18/2021 07/16/2021 Inactive isosorbide mononitrate ER 60 mg tablet,extended release 24 h r RxNorm: 216095 2 Tablet(s) Oral every day 04/26/2021 04/20/2022 Active hydralazine 10 mg tablet RxNorm: 239254 Take 1 Tablet(s ) Oral every night at bedtime 04/26/2021 05/25/2021 Inactive hydralazine 10 mg tablet RxNorm: 680866 Take 1 Tablet(s ) Oral every night at bedtime 04/26/2021 04/26/2021 Inactive losartan 50 mg tablet RxNorm: 250315 Take 1 Tablet(s) Oral two times a day 04/23/2021 04/17/2022 Active dc amlodipine omeprazole 40 mg capsule,delayed release RxNorm: 810650 Take 1 Capsule(s) Oral every day 04/23/2021 07/21/2021 Inactive losartan 50 mg tablet RxNorm: 484370 1 Tablet(s) Oral every nig ht at bedtime 04/12/2021 04/22/2021 Inactive dc amlodipine losartan 50 mg tablet RxNorm: 599878 1 Tablet(s) Oral every nig ht at bedtime 04/12/2021 04/11/2021 Inactive clonidine HCl 0.3 mg tablet RxNorm: 462816 1 Tablet(s) Oral two times a day 04/04/2021 07/22/2021 Inactive Voltaren Arthritis Pain 1 % topical gel RxNorm: 066317 2 Gram(s) Topical four times a day as needed may increase to 4 grams if needed 03/29/202103/04 Inactive Voltaren Arthritis Pain 1 % topical gel RxNorm: 429229 2 Gram(s) Topical four times a day as needed may increase to 4 grams if needed to affected area of pain 03/29/2021 07/26/2021 Inactive Colace 100 mg capsule RxNorm: 6657558 2 Capsule(s) Oral every day 0 03/19/2021 No Stop Date Active Novolog Flexpen U-100 Insulin aspart 100 unit/mL (3 mL ) subcutaneous RxNorm: 0494568 6-7 Unit(s) Subcutaneous before meals 03/19/2021 No Stop Date Act josh Tradjenta 5 mg tablet RxNorm: 7657174 1 Tablet(s) Oral every day No Stop Date Active furosemide 40 mg tablet RxNorm: 268212 1 Tablet(s) Oral every day 0 03/19/2021 No Stop Date Active Levemir FlexTouch U-100 Insulin 100 unit/mL (3 mL) sub cutaneous pen RxNorm: 420190 25 Unit(s) Subcutaneous two times a day 03/19/2021 No Stop Date A ctive Aspirin Low Dose 81 mg tablet,delayed release RxNorm: 471594 1 Tablet(s) Oral every day 03/19/2021 No Stop Date Active Vitamin D3 125 mcg (5,000 unit) tablet RxNorm: 963608 1 Tablet(s) Oral every day 03/19/2021 No Stop Date Active tamsulosin 0.4 mg capsule RxNorm: 020249 1 Capsule(s) Oral every da y 03/19/2021 05/31/2021 Inactive clonidine HCl 0.3 mg tablet RxNorm: 683657 1 Tablet(s) Oral two times a day 03/19/2021 04/03/2021 Inactive isosorbide mononitrate ER 120 mg tablet,extended release 24 hr RxNorm: 446937 1 Tablet(s) Oral every day 03/19/2021 04/26/2021 Inactive omeprazole 40 mg capsule,delayed release RxNorm: 030345 1 Capsule(s) Oral every day 03/19/2021 04/23/2021 Inactive finasteride 5 mg tablet RxNorm: 328725 1 Tablet(s) Oral every day 0 03/19/2021 05/31/2021 Inactive carvedilol 25 mg tablet RxNorm: 222883 1 Tablet(s) Oral two drake es a day 03/19/2021 05/18/2021 Inactive amlodipine 2.5 mg tablet RxNorm: 599561 1 Tablet(s) Oral every day 03/19/2021 04/09/2021 Inactive PreserVision Lutein oral RxNorm: 813654 oral 03/19/2021 Active Medication Administered No Medication Administered data Immunizations Vaccine Codes Date Status Influenza CVX: 135 08/13/2021 Complete Covid-19 CVX: 207 01/26/2021 Covid-19 CVX: 207 12/29/2020 Pneumococcal (Adult) CVX: 33 08/03/2020 Results Observation Observation Code Item Item Code Result Date S ervice Location %Hba1C Owv699 % HbA1c 23415-4 8.2 % 05/28/2021 Unknown %Hba1C Kdx230 Gluc Ave 189 mg/dL 05/28/2021 Unknown Comp Metabolic Gku804 NA 142 mEq/L 05/28/2021 Unkn own Comp Metabolic Cbj807 K 4.1 mEq/L 05/28/2021 Unkn own Comp Metabolic Iaz860 CL 104 mEq/L 05/28/2021 Unkn own Comp Metabolic Nhg870 CO2 29.0 mEq/L 05/28/2021 Unk nown Comp Metabolic Ood857 ANION GAP 13 05/28/2021 Unkn own Comp Metabolic Cui629 GLUCOSE 169 mg/dL 05/28/2021 Unkn own Comp Metabolic Zkn664 Creat 1.9 mg/dL 05/28/2021 Unkn own Comp Metabolic Lwn518 eGFR 37 ml/min/1.73m2 05/28/20 21 Unknown Comp Metabolic Apu729 BUN 35 mg/dL 05/28/2021 Unkn own Comp Metabolic Skd879 B/C Ratio 18.7 Ratio 05/28/2021 Unk nown Comp Metabolic Aoy729 CALCIUM 8.7 mg/dL 05/28/2021 Unkn own Comp Metabolic Jbx311 ALK PHOS 70 U/L 05/28/2021 Unkn own Comp Metabolic Uqf407 AST(SGOT) 17 U/L 05/28/2021 Unkn own Comp Metabolic Abz697 ALT(SGPT) 14 U/L 05/28/2021 Unkn own Comp Metabolic Opc311 BILI T 0.5 mg/dL 05/28/2021 Unkn own Comp Metabolic Nik250 ALBUMIN 3.4 g/dL 05/28/2021 Unkn own Comp Metabolic Lkk763 TPRO 6.8 g/dL 05/28/2021 Unkn own Comp Metabolic Goj452 GLOB 3.4 g/dL 05/28/2021 Unkn own Comp Metabolic Ckn425 A/G Ratio 1.0 Ratio 05/28/2021 Unkn own Comp Metabolic Ret634 Osmo 295 mOsmo 05/28/2021 Unkn own Cbc [...] 05/28/20 21 Unknown Cbc With Differential Ord2 [place]% 12.7 % 05/28/20 21 Unknown Cbc With [...] K/ul 021 Unknown Cbc With Differential Ord2 [place] ABS# 1.2 K/ul 05/28/20 21 Unknown Cbc With Differential Ord2 Eos ABS# 0.3 K/ul 05/28/20 21 Unknown Cbc With Differential Ord2 Baso ABS# 0.0 K/ul 05/28/20 21 Unknown Procedures Procedure Codes Date ADMIN INFLUENZA VIRUS VAC CPT-4: G0008 08/13/2021 IIV NO PRSV INCREASED AG IM CPT-4: 17603 08/13/2021 Vital Signs Date Vital 08/13/2021 Blood Pressure 1: 160/84 Code: 8480-6 BMI: 38.8 Code: 65620-2 Heart Rate 1: 96 bpm Height: 5'9" Code: 8302-2 Respiratory Rate: 16 bpm SpO2: 94% Temperature: 35.9 (C) / 96.7 (F) Weight: 263 lbs Code: 95250-6 07/23/2021 Blood Pressure 1: 136/84 Code: 8480-6 BMI: 39.6 Code: 28168-3 Heart Rate 1: 80 bpm Height: 5'9" Code: 8302-2 Respiratory Rate: 16 bpm SpO2: 96% Temperature: 36.2 (C) / 97.1 (F) Weight: 268 lbs Code: 48205-4 04/23/2021 Blood Pressure 1: 150/82 Code: 8480-6 Bl ood Pressure 1: 124/80 Code: 8480-6 BMI: 39.9 Code: 48413-8 Heart Rate 1: 81 bpm Height: 5'9" Code: 8302-2 Respiratory Rate: 16 bpm SpO2: 96% Temperature: 36.1 (C) / 96.9 (F) We ight: 270 lbs Code: 82856-0 03/19/2021 Blood Pressure 1: 134/72 Code: 8480-6 BMI: 40.5 Code: 97612-4 Heart Rate 1: 77 bpm Height: 5'9" Code: 8302-2 Respiratory Rate: 18 bpm SpO2: 96% Temperature: 36.7 (C) / 98.0 (F) Weight: 274 lbs 5 oz Code: 18205-3 Functional Status No Functional Status data Reason For Visit Reason For Visit Effective Dates Notes hypertension 08/13/2021 diabetes mellitus 07/23/2021 hypertension 04/23/2021 hypertension 03/19/2021 Encounters Encounter Performer Location Codes Date ([id number]) [id number] EST. 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 PATIENT, LEVEL IV Diagnosis: Essential (primary) hypertension[ICD10: I10] Diagnosis: Chronic kidney disease, stage 3b[ICD10: N18.32] Anny Maddox MD, [facility] CPT-4: 41681 07/23/2021 ([id number]) 02617 EST. 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 08/13/2021 [facility] [phone] [facility] ([facility] min) Moderate 08/13/2021 Patient Education: Patient [...] renal diet - will send referral to chemical process engineer for education of patient. 07/23/2021 App[facility]ment: [facility] [phone] [facility] [place] (15 min) Moderate 07/23/2021 Patient Education: Patient Medication Summary Completed 07/23/2021 Patient Education: Patient Medication Summary Completed 05/25/2021 Visit Plan: Gait imbalance - referral to via [facility] physical therapy for balance therapy Diabetes mellitus - chronic - pt insulin dependent, has not been managing his diabetes very well with dietary indescretion, pt has been referred to chemical process engineer. Peripheral edema - with peripheral vascular [...] for acute concerns. 04/23/2021 Appointment: [facility] [phone] [facility] [place] (15 min) Moderate 04/23/2021 Patient Education: Patient Medication Summary Completed 04/23/2021 Visit Plan: Chronic renal failure - defe r to Nephrology. Pt has not been following a renal diet - will send referral to chemical process engineer for education of patient. Diabetes mellitus [...] clean out of his ears. referral to chemical process engineer for swelling, renal disease and diabetes. [...] renal diet - will send referral to chemical process engineer for education of patient. increase the losartan to 50mg twice lenora y . Gait imbalance - referral to [facility] for balance therapy Diabetes mellitus - chronic - pt insulin dependent, has not been managing his diabetes very well with dietary indescretion, pt has been referred to chemical process engineer. Peripheral edema - with peripheral vascular [...] renal diet - will send referral to chemical process engineer for education of patient. Diabetes mellitus [...] clean out of his ears. referral to chemical process engineer for swelling, renal disease and diabetes. Medical Equipment No Medical Equipment data Health Concerns Section Health Concerns data not found Goals Section Goals data not found Interventions Section Interventions data not found Health Status Evaluations/Outcomes Section Health Status Evaluations/Outcomes data not found Advance Directives No Advance Directive data
--- OUTSIDE RECORDS SUMMARY | 2021-08-31 14:14 | XMS REPORT | CCD ---
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 Name Role Phone Anny Maddox PP Unavailable CCM Unavailable Summary Purpose Interface Exchange Insurance Providers Payer name Policy type / Coverage type Covered constitution party ID Effective Begin Date Effective End Date [employer] Solutions Medicare Part B [id number] Un known Unknown Family history Father Diagnosis [...] of children Unknown 3 two sons live [facility] and 1 dtr lives in [facility] 03/19/2021 Employment Unknown 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 03/19/[address]: 031816317 Never smoker 03/19/[address]: 876229242 Never drinks alcohol 2020 Allergies, Adverse Reactions, [...] disease, stage 3b ICD-10: N18.32 03/19/2021 Active [facility] (current) use of insulin ICD-10: Z79.4 03/19/2021 Active Medications Medication Codes Instructions Start Date Stop Date Status Fill Instructions diclofenac 1 % topical gel RxNorm: 234860 Apply 4 Gram( s) Topical four times a day as needed for pain 08/13/2021 No Stop Date Active dispense 3 tubes - please deliver loratadine 10 mg tablet RxNorm: 083746 Take 1 Tablet(s) Oral ev harjinder08/13/2021 08/07/2022 Active please deliver for t he patient hydralazine 25 mg tablet RxNorm: 854229 1 Tablet(s) Oral three times a day 08/06/2021 09/04/2021 Active carvedilol 25 mg tablet RxNorm: 205630 Take 1 Tablet(s) Oral tw o times a day 08/03/2021 10/01/2021 Active omeprazole 40 mg capsule,delayed release RxNorm: 785647 Take 1 Capsule(s) Oral every day 07/23/2021 10/20/2021 Active hydralazine 10 mg tablet RxNorm: 125028 Take 1 Tablet(s ) Oral two times a day noon and HS 07/23/2021 08/05/2021 Inactive clonidine 0.3 mg/24 hr weekly transdermal patch RxNorm: 9986 79 Take 1 Patch Transdermal weekly 07/23/2021 07/31/2021 Inactive please delive r to pt's home - use good rx if more than 40$ with regular insurance cefdinir 300 mg capsule RxNorm: 125858 Take 1 Capsule(s) Oral t wo times a day 07/19/2021 07/25/2021 Inactive cefdinir 300 mg capsule RxNorm: 950640 Take 1 Capsule(s) Oral t wo times a day 07/19/2021 07/19/2021 Inactive hydralazine 10 mg tablet RxNorm: 489201 Take 1 Tablet(s ) Oral two times a day noon and HS 07/13/2021 07/13/2021 Inactive finasteride 5 mg tablet RxNorm: 513877 Take 1 Tablet(s) Oral ev harjinder day 05/31/2021 08/28/2021 Active tamsulosin 0.4 mg capsule RxNorm: 074631 Take 1 Capsule(s) Oral every day 05/31/2021 08/28/2021 Active carvedilol 25 mg tablet RxNorm: 892124 Take 1 Tablet(s) Oral tw o times a day 05/18/2021 07/16/2021 Inactive isosorbide mononitrate ER 60 mg tablet,extended release 24 h r RxNorm: 289800 2 Tablet(s) Oral every day 04/26/2021 04/20/2022 Active hydralazine 10 mg tablet RxNorm: 079455 Take 1 Tablet(s ) Oral every night at bedtime 04/26/2021 05/25/2021 Inactive hydralazine 10 mg tablet RxNorm: 305393 Take 1 Tablet(s ) Oral every night at bedtime 04/26/2021 04/26/2021 Inactive losartan 50 mg tablet RxNorm: 324861 Take 1 Tablet(s) Oral two times a day 04/23/2021 04/17/2022 Active dc amlodipine omeprazole 40 mg capsule,delayed release RxNorm: 740409 Take 1 Capsule(s) Oral every day 04/23/2021 07/21/2021 Inactive losartan 50 mg tablet RxNorm: 689034 1 Tablet(s) Oral every nig ht at bedtime 04/12/2021 04/22/2021 Inactive dc amlodipine losartan 50 mg tablet RxNorm: 727269 1 Tablet(s) Oral every nig ht at bedtime 04/12/2021 04/11/2021 Inactive clonidine HCl 0.3 mg tablet RxNorm: 712153 1 Tablet(s) Oral two times a day 04/04/2021 07/22/2021 Inactive Voltaren Arthritis Pain 1 % topical gel RxNorm: 077674 2 Gram(s) Topical four times a day as needed may increase to 4 grams if needed 03/29/2021 05/2 04/2021 Inactive Voltaren Arthritis Pain 1 % topical gel RxNorm: 866223 2 Gram(s) Topical four times a day as needed may increase to 4 grams if needed to affected area of pain 03/29/2021 07/26/2021 Inactive Colace 100 mg capsule RxNorm: 2053443 2 Capsule(s) Oral every day 0 03/19/2021 No Stop Date Active Novolog Flexpen U-100 Insulin aspart 100 unit/mL (3 mL ) subcutaneous RxNorm: 1122254 6-7 Unit(s) Subcutaneous before meals 03/19/2021 No Stop Date Act josh Tradjenta 5 mg tablet RxNorm: 9485467 1 Tablet(s) Oral every day No Stop Date Active furosemide 40 mg tablet RxNorm: 787832 1 Tablet(s) Oral every day 0 03/19/2021 No Stop Date Active Levemir FlexTouch U-100 Insulin 100 unit/mL (3 mL) sub cutaneous pen RxNorm: 509199 25 Unit(s) Subcutaneous two times a day 03/19/2021 No Stop Date A ctive Aspirin Low Dose 81 mg tablet,delayed release RxNorm: 836662 1 Tablet(s) Oral every day 03/19/2021 No Stop Date Active Vitamin D3 125 mcg (5,000 unit) tablet RxNorm: 026047 1 Tablet(s) Oral every day 03/19/2021 No Stop Date Active tamsulosin 0.4 mg capsule RxNorm: 385806 1 Capsule(s) Oral every da y 03/19/2021 05/31/2021 Inactive clonidine HCl 0.3 mg tablet RxNorm: 935589 1 Tablet(s) Oral two times a day 03/19/2021 04/03/2021 Inactive isosorbide mononitrate ER 120 mg tablet,extended release 24 hr RxNorm: 041656 1 Tablet(s) Oral every day 03/19/2021 04/26/2021 Inactive omeprazole 40 mg capsule,delayed release RxNorm: 240473 1 Capsule(s) Oral every day 03/19/2021 04/23/2021 Inactive finasteride 5 mg tablet RxNorm: 197060 1 Tablet(s) Oral every day 0 03/19/2021 05/31/2021 Inactive carvedilol 25 mg tablet RxNorm: 262037 1 Tablet(s) Oral two drake es a day 03/19/2021 05/18/2021 Inactive amlodipine 2.5 mg tablet RxNorm: 598620 1 Tablet(s) Oral every day 03/19/2021 04/09/2021 Inactive PreserVision Lutein oral RxNorm: 763668 oral 03/19/2021 Active Medication Administered No Medication Administered data Immunizations Vaccine Codes Date Status Covid-19 CVX: 01/26/2021 Covid-19 CVX: 12/29/2020 Pneumococcal (Adult) CVX: 33 08/03/2020 Results Observation Observation Code Item Item Code Result Date S ervice Location %Hba1C Wqa442 % HbA1c 47593-5 8.2 % 05/28/2021 Unknown %Hba1C Hjf301 Gluc Ave 189 mg/dL 05/28/2021 Unknown Comp Metabolic Pyf443 NA 142 mEq/L 05/28/2021 Unkn own Comp Metabolic Imv579 K 4.1 mEq/L 05/28/2021 Unkn own Comp Metabolic Osk327 CL 104 mEq/L 05/28/2021 Unkn own Comp Metabolic Bls372 CO2 29.0 mEq/L 05/28/2021 Unk nown Comp Metabolic Zzt051 ANION GAP 13 05/28/2021 Unkn own Comp Metabolic Aey256 GLUCOSE 169 mg/dL 05/28/2021 Unkn own Comp Metabolic Dxh032 Creat 1.9 mg/dL 05/28/2021 Unkn own Comp Metabolic Jhy051 eGFR 37 ml/min/1.73m2 05/28/20 21 Unknown Comp Metabolic Fht020 BUN 35 mg/dL 05/28/2021 Unkn own Comp Metabolic Ioy702 B/C Ratio 18.7 Ratio 05/28/2021 Unk nown Comp Metabolic Vda258 CALCIUM 8.7 mg/dL 05/28/2021 Unkn own Comp Metabolic Wdi154 ALK PHOS 70 U/L 05/28/2021 Unkn own Comp Metabolic Xfo101 AST(SGOT) 17 U/L 05/28/2021 Unkn own Comp Metabolic Ypd243 ALT(SGPT) 14 U/L 05/28/2021 Unkn own Comp Metabolic Oym787 BILI T 0.5 mg/dL 05/28/2021 Unkn own Comp Metabolic Oui266 ALBUMIN 3.4 g/dL 05/28/2021 Unkn own Comp Metabolic Awl641 TPRO 6.8 g/dL 05/28/2021 Unkn own Comp Metabolic Qmh424 GLOB 3.4 g/dL 05/28/2021 Unkn own Comp Metabolic Dpy417 A/G Ratio 1.0 Ratio 05/28/2021 Unkn own Comp Metabolic Lfn034 Osmo 295 mOsmo 05/28/2021 Unkn own Cbc [...] 05/28/20 21 Unknown Cbc With Differential Ord2 Brown% 12.7 % 05/28/20 21 Unknown Cbc With [...] K/ul 021 Unknown Cbc With Differential Ord2 Brown ABS# 1.2 K/ul 05/28/20 21 Unknown Cbc With Differential Ord2 Eos ABS# 0.3 K/ul 05/28/20 21 Unknown Cbc With Differential Ord2 Baso ABS# 0.0 K/ul 05/28/20 21 Unknown Procedures Procedure Codes Date ADMIN INFLUENZA VIRUS VAC CPT-4: G0008 08/13/2021 IIV NO PRSV INCREASED AG IM CPT-4: 02741 08/13/2021 Vital Signs Date Vital 08/13/2021 Blood Pressure 1: 160/84 Code: 8480-6 BMI: 38.8 Code: 81304-9 Heart Rate 1: 96 bpm Height: 5'9" Code: 8302-2 Respiratory Rate: 16 bpm SpO2: 94% Temperature: 35.9 (C) / 96.7 (F) Weight: 263 lbs Code: 43781-2 07/23/2021 Blood Pressure 1: 136/84 Code: 8480-6 BMI: 39.6 Code: 39045-6 Heart Rate 1: 80 bpm Height: 5'9" Code: 8302-2 Respiratory Rate: 16 bpm SpO2: 96% Temperature: 36.2 (C) / 97.1 (F) Weight: 268 lbs Code: 96003-8 04/23/2021 Blood Pressure 1: 150/82 Code: 8480-6 Bl ood Pressure 1: 124/80 Code: 8480-6 BMI: 39.9 Code: 03758-7 Heart Rate 1: 81 bpm Height: 5'9" Code: 8302-2 Respiratory Rate: 16 bpm SpO2: 96% Temperature: 36.1 (C) / 96.9 (F) We ight: 270 lbs Code: 27164-5 03/19/2021 Blood Pressure 1: 134/72 Code: 8480-6 BMI: 40.5 Code: 21430-6 Heart Rate 1: 77 bpm Height: 5'9" Code: 8302-2 Respiratory Rate: 18 bpm SpO2: 96% Temperature: 36.7 (C) / 98.0 (F) Weight: 274 lbs 5 oz Code: 90071-5 Functional Status No Functional Status data Reason For Visit Reason For Visit Effective Dates Notes hypertension 08/13/2021 diabetes mellitus 07/23/2021 hypertension 04/23/2021 hypertension 03/19/2021 Encounters Encounter Performer Location Codes Date ([id number]) 24820 EST. PATIENT, LEVEL IV Diagnosis: Essential (primary) hypertension[ICD10: I10] Diagnosis: 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 chronic kidney disease, with long-term current use of insulin[ICD10: E11.22] Diagnosis: Chronic kidney disease, stage 3b[ICD10: N18.32] [facility] CPT-4: 83378 08/13/2021 ([id number]) 12260 EST. PATIENT, LEVEL IV Diagnosis: Essential (primary) hypertension[ICD10: I10] Diagnosis: Chronic kidney disease, stage 3b[ICD10: N18.32] Anny Maddox MD, [facility] CPT-4: 69643 07/23/2021 ([id number]) 20015 EST. 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[ICD10: I87.2] Anny Maddox MD, [facility] CPT-4: 36110 04/23/2021 ([id number]) OFFICE/OUTPATIENT VISIT NEW Diagnosis: Essential (primary) hypertension[ICD10: I10] Diagnosis: Chronic kidney disease, stage 3b[ICD10: N18.32] 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 08/13/2021 Patient Education: Patient Medication Summary Completed [...] renal diet - will send referral to professor of rhetoric for education of patient. 07/23/2021 Appointment: Anny Maddox WPtel: [phone] [id number] (15 min) Moderate 07/23/2021 Patient Education: Patient Medication Summary Completed 07/23/2021 Patient Education: Patient Medication Summary Completed 05/25/2021 Visit Plan: Gait imbalance - referral to [facility] physical therapy for balance therapy Diabetes mellitus - chronic - pt insulin dependent, has not been managing his diabetes very well with dietary indescretion, pt has been referred to professor of rhetoric. Peripheral edema - with peripheral vascular disease [...] concerns. 04/23/2021 [id number] [place] (15 min) Moderate 04/23/2021 Patient Education: Patient Medication Summary Completed 04/23/2021 Visit Plan: Chronic renal failure - defe r to Nephrology. Pt has not been following a renal diet - will send referral to professor of rhetoric for education of patient. Diabetes mellitus - [...] clean out of his ears. referral to professor of rhetoric for swelling, renal disease and diabetes. 03/19/2021 [...] renal diet - will send referral to professor of rhetoric for education of patient. increase the losartan to 50mg twice lenora y . Gait imbalance - referral to [facility] therapy Diabetes mellitus - chronic - pt insulin dependent, has not been managing his diabetes very well with dietary indescretion, pt has been referred to professor of rhetoric. Peripheral edema - with peripheral vascular disease [...] renal diet - will send referral to professor of rhetoric for education of patient. Diabetes mellitus - [...] clean out of his ears. referral to professor of rhetoric for swelling, renal disease and diabetes. Medical Equipment No Medical Equipment data Health Concerns Section Health Concerns data not found Goals Section Goals data not found Interventions Section Interventions data not found Health Status Evaluations/Outcomes Section Health Status Evaluations/Outcomes data not found Advance Directives No Advance Directive data
--- NOTE | 2021-08-31 14:41 | ED General ---
General Stated Complaint: KIDNEY ISSUES Source of Information: Patient Exam Limitations: No Limitations History of Present Illness Date Seen by Provider: Aug 31, 2021 Time Seen by Provider: 14:36 Initial Comments This is a well-appearing 81-year-old male who presented to the ER from home for concerns of his "renal function". States that he just had his labs drawn at [facility] lab And noticed that his GFR went from 37 May of this year down to 30 and this has him concerned.He does not have any symptoms at this time. States that he is making urine well, light in color. He is adamant that he needs his renal functi on re-checked. Allergies and Home Medications Allergies Coded Allergies: Sulfa (Sulfonamide Antibiotics) (Unverified Allergy, Unknown, 10/10/19) Patient Home Medication List Home Medication List Reviewed: Yes Amlodipine Besylate (Amlodipine Besylate) 10 Mg Tablet, 10 MG PO DAILY Prescribed by: MARIO SULLIVAN on 12/19/20 1239 Amoxicillin/Potassium Clav (Amox Tr-K Clv 875-125 mg Tab) 1 Each Tablet, 875 MG PO BID WITH MEALS Prescribed by: MARIO SULLIVAN on 12/19/20 1239 Carvedilol (Carvedilol) 12.5 Mg Tablet, 25 MG PO BID Prescribed by: MARIO SULLIVAN on 12/19/20 1239 Clonidine HCl (Clonidine HCl) 0.3 Mg Tablet, 0.3 MG PO BID Prescribed by: MARIO SULLIVAN on 12/20/20 1451 Finasteride (Finasteride) 5 Mg Tablet, 5 MG PO DAILY Prescribed by: MARIO SULLIVAN on 12/19/20 1239 Fluticasone Propionate (Fluticasone Propionate) 16 Gm [place].susp, 1 SPRAY NSEACH DAILY, (Reported) Entered as Reported by: JOSE LUIS HUNTER on 12/11/20 1529 Furosemide (Furosemide) 40 Mg Tablet, 40 MG PO DAILY, (Reported) Entered as Reported by: ALECIA HERRERA on 10/17/18 1427 Hydralazine HCl (Hydralazine HCl) 25 Mg Tablet, 25 MG PO TID Prescribed by: ARAMIS ROD on 07/31/21 1937 Insulin Detemir (Levemir Flextouch) 100 Unit/1 Ml Insuln.pen, 25 UNIT SQ BID, (Reported) Entered as Reported by: VALENTINA العلي on 10/11/19 1034 Isosorbide Mononitrate (Isosorbide Mononitrate ER) 120 Mg Tab.er.24h, 120 MG PO DAILY, (Reported) Entered as Reported by: RASHIDA CLAROS on 10/10/19 1238 Omeprazole (Omeprazole) 40 Mg Capsule.dr, 40 MG PO DAILY, (Reported) Entered as Reported by: JOSE LUIS HUNTER on 12/11/20 1529 Tamsulosin HCl (Flomax) 0.4 Mg Cap, 0.4 MG PO DAILY, (Reported) Entered as Reported by: RASHIDA CLAROS on 10/10/19 1238 Tramadol HCl (Tramadol HCl) 50 Mg Tablet, 50 MG PO TID, (Reported) Entered as Reported by: JOSE LUIS HUNTER on 12/11/20 1529 Review of Systems Review of Systems Constitutional: no symptoms reported EENTM: no symptoms reported Respiratory: no symptoms reported Cardiovascular: no symptoms reported Gastrointestinal: no symptoms reported Genitourinary: no symptoms reported Musculoskeletal: no symptoms reported Skin: no symptoms reported Psychiatric/Neurological: No Symptoms Reported Hematologic/Lymphatic: No Symptoms Reported Immunological/Allergic: no symptoms reported Past Sxtxgqp-Taxbrs-Uqernu Hx Immunizations Up To Date Tetanus Booster (TDap): Less than 5yrs First/Initial COVID19 Vaccinat: JANUARY Second COVID19 Vaccination Zoltan: JANUARY Seasonal Allergies Seasonal Allergies: No Past Medical History Surgery/Hospitalization HX: HOSPITALIZED 12/11-12/20/20 FOR COVID-19 AND DIVERTICULITIS. NO HYPOXIA AND NO SPECIFIC TREATMENT FOR COVID-19 AT THAT TIME. 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;DIVERTICULITIS-NO SURGERY) Diverticulosis, Gall Bladder Disease Musculoskeletal: No Endocrine: Yes (SELF MEDICATES WITH HIS INSULIN; OBESITY) Diabetes, Insulin dep HEENT: No (patient wears glasses ) Loss of Vision: Denies Hearing Impairment: Denies Cancer: No Psychosocial: No Integumentary: No Blood Disorders: No Family Medical History Cardiovascular disease 19 FATHER Hypertension 19 FATHER CAD Over 55 Years Old, Hypertension PAST SURGICAL HISTORY: -CARDIAC CATH 11/09/19--DIFFUSELY CALCIFIED CORONARY ARTERIES, SMALL VESSEL DISEASE, NO INTERVENTION - Physical Exam Vital Signs Vital Signs - First Documented 08/31/21 14:35 Temp 36.7 Pulse 98 Resp 20 B/P (MAP) 164/81 (108) Pulse Ox 95 O2 Delivery Room Air Capillary Refill : Height, Weight, BMI Height: 5'7.00" Weight: 200lbs. oz. 90.183324lf; 39.00 BMI Method:Estimated General Appearance: No Apparent Distress, WD/WN Eyes: Bilateral Eye Normal Inspection, Bilateral Eye PERRL HEENT: PERRL/EOMI, Normal ENT Inspection Neck: Normal Inspection, Supple Respiratory: Lungs Clear, Normal Breath Sounds Cardiovascular: Regular Rate, Rhythm, No Gallop Gastrointestinal: Normal Bowel Sounds, Non Tender, Soft Back: Normal Inspection, No Vertebral Tenderness Extremity: Normal Inspection, Normal Range of Motion Neurologic/Psychiatric: Alert, Oriented x3, No Motor/Sensory Deficits, Normal Mood/Affect Skin: Normal Color, Warm/Dry, Other Progress/Results/Core Measures Suspected Sepsis SIRS Temperature: Pulse: Respiratory Rate: Blood Pressure / Mean: Laboratory Tests 08/31/21 14:50: Creatinine 2.23H Results/Orders Lab Results Laboratory Tests Test 08/31/21 14:50 Range/Units Sodium Level 138 135-145 MMOL/L Potassium Level 4.5 3.6-5.0 MMOL/L Chloride Level 103 98-107 MMOL/L Carbon Dioxide Level 24 21-32 MMOL/L Anion Gap 11 5-14 MMOL/L Blood Urea Nitrogen 39 H 7-18 MG/DL Creatinine 2.23 H 0.60-1.30 MG/DL Estimat Glomerular Filtration Rate 28 BUN/Creatinine Ratio 17 Glucose Level 157 H 70-105 MG/DL Calcium Level 8.5 8.5-10.1 MG/DL Phosphorus Level 2.9 2.3-4.7 MG/DL Albumin 3.5 3.2-4.5 GM/DL My Orders Orders - EDDY DELEON APRN Ua Culture If Indicated (08/31/21 14:17) Renal Profile (08/31/21 15:02) Vital Signs/I&O 08/31/21 14:35 Temp 36.7 Pulse 98 Resp 20 B/P (MAP) 164/81 (108) Pulse Ox 95 O2 Delivery Room Air Capillary Refill : Progress Note : Progress Note Patient examined and in no acute distress. Adamant labs be rechecked. Orders placed for renal function. States" I wish there was a way to check my kidney function everyday like I can my blood pressure and my sugar". He is very obsessed with his vitals and labs, and this is an ongoing issue. Calls his primary care office multiple times through the day to provide updates and request advice regarding his BP and blood sugar. Labs reviewed with patient. Discharge POC reviewed and he is agreeable with plan. Departure Impression Primary Impression: CKD (chronic kidney disease) Disposition: HOME, SELF-CARE Condition: Stable/Unchanged Departure-Patient Inst. Decision time for Depature: 15:03 Referrals: BRADY MADDOX MD (PCP/Family) Primary Care Physician Patient Instructions: Chronic Kidney Disease (DC) Add. Discharge Instructions: 1. Continue to drink plenty of fluids to stay well-hydrated. 2. Call Dr. Maddox's office on Friday to schedule follow-up appointment. 3. Return for any new, concerning, worsening symptoms. Copy Copies To 1: BRADY MADDOX MD, [employer] Aug 31, 2021 14:41
[2021-08-31 15:12] LABS: ALBUMIN 3.5 GM/DL (3.2-4.5)
[2021-08-31 15:13] LABS: POTASSIUM 4.5 MMOL/L (3.6-5.0)
[2021-08-31 15:14] LABS: CALCIUM 8.5 MG/DL (8.5-10.1)
[2021-08-31 15:18] LABS: CREATININE SERUM 2.23 MG/DL (0.60-1.30); PHOSPHORUS 2.9 MG/DL (2.3-4.7)
[2021-08-31 16:05] VITALS: BP 145/82
== END 2021-08-31 16:05 | disposition home or self-care (01) ==
LOC: EDUNIT# 14:08 → ER 14:10
DX: E11.22 Type 2 diabetes mellitus with diabetic chronic kidney disease (principal); I12.9 Hypertensive chronic kidney disease with stage 1 through stage 4 chronic kidney disease, or unspecified chronic kidney disease; N18.9 Chronic kidney disease, unspecified; I25.2 Old myocardial infarction; I25.10 Atherosclerotic heart disease of native coronary artery without angina pectoris; Z79.4 Long term (current) use of insulin
CPT/HCPCS: 36415; 80069; 99281

== ENCOUNTER 2021-10-11 00:48 | Emergency (ER) | payer MEDICARE ==
[~2021-10-11] VITALS: Ht 175 cm; Wt 117.0 kg
[~2021-10-11 00:48] MED LIST changes: -LEVO250T46 PO; +LVF250T PO
--- OUTSIDE RECORDS SUMMARY | 2021-10-11 00:54 | XMS REPORT | CCD ---
Author Author Artie Maddox Organization Anny Maddox MD, [facility] Address [address] [place] [address] Phone Care Team Providers Care Taper Machine Name Role Phone Anny Maddox PP Unavailable CCM Unavailable Summary Purpose Interface Exchange Insurance Providers Payer name Policy type / Coverage type Covered libertarian ID Effective Begin Date Effective End Date [employer] Medicare Part B [id number] Un known Unknown Family history Father Diagnosis [...] of children Unknown 3 two sons live [facility] and 1 dtr lives [facility] 03/19/2021 Employment Unknown 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 [employer] 03/19/[address]: 748143345 Never smoker 03/19/[address]: 458225054 Never drinks alcohol 2020 Allergies, Adverse Reactions, Alerts Substance Reaction Codes Entered Date Inactivated Date Status SULFA(SULFONAMIDE ANTIBIOTICS) Unknown 03/19/2021 No In active Date Active Problems Condition Codes Effective Dates Condition Status Chronic kidney disease, stage 3b ICD-10: N18.32 ICD-9: 585.3 04/23/2021 Active Constipation ICD-10: K59.00 ICD-9: 564.00 09/04/2021 Active Essential (primary) hypertension ICD-10: I10 ICD-9: 401.1 03/19/2021 Active Hepatitis C antibody test positive ICD-10: R76.8 ICD-9: 795.79 09/04/2021 Active 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, with long-term current use of insulin ICD-10: E11.22 ICD-9: 250.40 03/19/2021 Active Need for immunization against influenza ICD-10: Z23 ICD-9: V04.81 08/13/2021 Active Edema of right lower leg due to peripheral venous insu fficiency ICD-10: I87.2 ICD-9: 459.81 03/19/2021 Active Generalized muscle weakness ICD-10: M62.81 ICD-9: 728.87 04/23/2021 Active Localized edema ICD-10: R60.0 03/19/2021 Active Neurologic gait dysfunction ICD-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.9 ICD-9: 781.2 04/23/2021 Active Chronic kidney disease, stage 3b ICD-10: N18.32 03/19/2021 Active snf (current) use of insulin ICD-10: Z79.4 03/19/2021 Active Medications Medication Codes Instructions Start Date Stop Date Status Fill Instructions ondansetron 4 mg disintegrating tablet RxNorm: 987172 1 Tablet(s) Oral four times a day as needed 10/05/2021 10/09/2021 Active Zofran 4 mg tablet RxNorm: 155506 1 Tablet(s) Oral Every 8 hrs as needed 10/03/2021 11/01/2021 Active doesn't want the dis olvable tabs- he can't open them Zofran 4 mg tablet RxNorm: 870483 1 Tablet(s) Oral Every 8 hrs as needed 10/03/2021 10/03/2021 Inactive doesn't want the dis olvable tabs- he can't open them Miralax 17 gram/dose oral powder RxNorm: 054020 17 Gram(s) Oral every day 10/02/2021 10/31/2021 Active Miralax 17 gram/dose oral powder RxNorm: 171187 17 Gram(s) Oral every day 10/02/2021 10/02/2021 Inactive carvedilol 25 mg tablet RxNorm: 965708 Take 1 Tablet(s) Oral tw o times a day 10/01/2021 11/29/2021 Active tramadol 50 mg tablet RxNorm: 828859 Take 1 Tablet(s) O ral Every 8 hrs as needed 09/25/2021 09/25/2021 Inactive tramadol 50 mg tablet RxNorm: 906929 Take 1 Tablet(s) O ral Every 8 hrs as needed 09/25/2021 09/25/2021 Inactive Linzess 145 mcg capsule RxNorm: 7335152 Take 1 Capsule(s) Oral e very day 09/10/2021 10/09/2021 Active finasteride 5 mg tablet RxNorm: 180517 Take 1 Tablet(s) Oral ev harjinder day 09/10/2021 12/08/2021 Active Linzess 145 mcg capsule RxNorm: 8677341 Take 1 Capsule(s) Oral e very day 09/10/2021 09/10/2021 Inactive hydralazine 25 mg tablet RxNorm: 435597 1 Tablet(s) Oral three times a day 08/31/2021 09/29/2021 Inactive tamsulosin 0.4 mg capsule RxNorm: 485068 Take 1 Capsule(s) Oral every day 08/29/2021 11/26/2021 Active ondansetron 4 mg disintegrating tablet RxNorm: 629872 1 Tablet(s) Oral four times a day 2021 2021 Inactive ondansetron 4 mg disintegrating tablet RxNorm: 961056 1 Tablet(s) Oral four times a day as needed 2021 08/26/2021 Inactive diclofenac 1 % topical gel RxNorm: 172010 Apply 4 Gram( s) Topical four times a day as needed for pain 08/13/2021 No Stop Date Active dispense 3 tubes - please deliver loratadine 10 mg tablet RxNorm: 873817 Take 1 Tablet(s) Oral ev harjinder day 08/13/2021 08/07/2022 Active please deliver for t he patient hydralazine 25 mg tablet RxNorm: 045615 1 Tablet(s) Oral three times a day 08/06/2021 08/31/2021 Inactive carvedilol 25 mg tablet RxNorm: 707000 Take 1 Tablet(s) Oral tw o times a day 08/03/2021 08/03/2021 Inactive omeprazole 40 mg capsule,delayed release RxNorm: 729003 Take 1 Capsule(s) Oral every day 07/23/2021 10/20/2021 Active hydralazine 10 mg tablet RxNorm: 134627 Take 1 Tablet(s ) Oral two times a day noon and HS 07/23/2021 08/05/2021 Inactive clonidine 0.3 mg/24 hr weekly transdermal patch RxNorm: 9986 79 Take 1 Patch Transdermal weekly 07/23/2021 07/31/2021 Inactive please delive r to pt's home - use good rx if more than 40$ with regular insurance cefdinir 300 mg capsule RxNorm: 842564 Take 1 Capsule(s) Oral t wo times a day 07/19/2021 07/25/2021 Inactive cefdinir 300 mg capsule RxNorm: 488185 Take 1 Capsule(s) Oral t wo times a day 07/19/2021 07/19/2021 Inactive hydralazine 10 mg tablet RxNorm: 752181 Take 1 Tablet(s ) Oral two times a day noon and HS 07/13/2021 07/13/2021 Inactive finasteride 5 mg tablet RxNorm: 842107 Take 1 Tablet(s) Oral ev harjinder day 05/31/2021 08/28/2021 Inactive tamsulosin 0.4 mg capsule RxNorm: 536559 Take 1 Capsule(s) Oral every day 05/31/2021 08/28/2021 Inactive carvedilol 25 mg tablet RxNorm: 929829 Take 1 Tablet(s) Oral tw o times a day 05/18/2021 07/16/2021 Inactive isosorbide mononitrate ER 60 mg tablet,extended release 24 h r RxNorm: 650446 2 Tablet(s) Oral every day 04/26/2021 04/20/2022 Active hydralazine 10 mg tablet RxNorm: 620855 Take 1 Tablet(s ) Oral every night at bedtime 04/26/2021 05/25/2021 Inactive hydralazine 10 mg tablet RxNorm: 368792 Take 1 Tablet(s ) Oral every night at bedtime 04/26/2021 04/26/2021 Inactive losartan 50 mg tablet RxNorm: 202715 Take 1 Tablet(s) Oral two times a day 04/23/2021 04/17/2022 Active dc amlodipine omeprazole 40 mg capsule,delayed release RxNorm: 782771 Take 1 Capsule(s) Oral every day 04/23/2021 07/21/2021 Inactive losartan 50 mg tablet RxNorm: 899512 1 Tablet(s) Oral every nig ht at bedtime 04/12/2021 04/22/2021 Inactive dc amlodipine losartan 50 mg tablet RxNorm: 990792 1 Tablet(s) Oral every nig ht at bedtime 04/12/2021 04/11/2021 Inactive clonidine HCl 0.3 mg tablet RxNorm: 490397 1 Tablet(s) Oral two times a day 04/04/2021 07/22/2021 Inactive Voltaren Arthritis Pain 1 % topical gel RxNorm: 782641 2 Gram(s) Topical four times a day as needed may increase to 4 grams if needed 03/29/202103/04 Inactive Voltaren Arthritis Pain 1 % topical gel RxNorm: 795996 2 Gram(s) Topical four times a day as needed may increase to 4 grams if needed to affected area of pain 03/29/2021 07/26/2021 Inactive Colace 100 mg capsule RxNorm: 9464644 2 Capsule(s) Oral every day 0 03/19/2021 No Stop Date Active Novolog Flexpen U-100 Insulin aspart 100 unit/mL (3 mL ) subcutaneous RxNorm: 0760591 6-7 Unit(s) Subcutaneous before meals 03/19/2021 No Stop Date Act josh Tradjenta 5 mg tablet RxNorm: 2663742 1 Tablet(s) Oral every day No Stop Date Active furosemide 40 mg tablet RxNorm: 748462 1 Tablet(s) Oral every day 0 03/19/2021 No Stop Date Active Levemir FlexTouch U-100 Insulin 100 unit/mL (3 mL) sub cutaneous pen RxNorm: 640894 25 Unit(s) Subcutaneous two times a day 03/19/2021 No Stop Date A ctive Aspirin Low Dose 81 mg tablet,delayed release RxNorm: 895087 1 Tablet(s) Oral every day 03/19/2021 No Stop Date Active Vitamin D3 125 mcg (5,000 unit) tablet RxNorm: 349189 1 Tablet(s) Oral every day 03/19/2021 No Stop Date Active tamsulosin 0.4 mg capsule RxNorm: 386771 1 Capsule(s) Oral every da y 03/19/2021 05/31/2021 Inactive clonidine HCl 0.3 mg tablet RxNorm: 569006 1 Tablet(s) Oral two times a day 03/19/2021 04/03/2021 Inactive isosorbide mononitrate ER 120 mg tablet,extended release 24 hr RxNorm: 996049 1 Tablet(s) Oral every day 03/19/2021 04/26/2021 Inactive omeprazole 40 mg capsule,delayed release RxNorm: 361056 1 Capsule(s) Oral every day 03/19/2021 04/23/2021 Inactive finasteride 5 mg tablet RxNorm: 039604 1 Tablet(s) Oral every day 0 03/19/2021 05/31/2021 Inactive carvedilol 25 mg tablet RxNorm: 345940 1 Tablet(s) Oral two drake es a day 03/19/2021 05/18/2021 Inactive amlodipine 2.5 mg tablet RxNorm: 240216 1 Tablet(s) Oral every day 03/19/2021 04/09/2021 Inactive PreserVision Lutein oral RxNorm: 295599 oral 03/19/2021 Active Medication Administered No Medication Administered data Immunizations Vaccine Codes Date Status Influenza CVX: 135 08/13/2021 Complete Covid-19 CVX: 207 01/26/2021 Covid-19 CVX: 207 12/29/2020 Pneumococcal (Adult) CVX: 33 08/03/2020 Results Observation Observation Code Item Item Code Result Date S [facility] Location HEP C ANTIBODY WITH REFLEX TO VIRAL LOAD F411 Hepatitis C Ab Negative 09/06/2021 Unknown %Hba1C Djw070 % HbA1c 83491-8 8.2 % 05/28/2021 Unknown %Hba1C Rks325 Gluc Ave 189 mg/dL 05/28/2021 Unknown Comp Metabolic Ily997 NA 142 mEq/L 05/28/2021 Unkn own Comp Metabolic Vxm268 K 4.1 mEq/L 05/28/2021 Unkn own Comp Metabolic Pnl016 CL 104 mEq/L 05/28/2021 Unkn own Comp Metabolic Oez801 CO2 29.0 mEq/L 05/28/2021 Unk nown Comp Metabolic Anx423 ANION GAP 13 05/28/2021 Unkn own Comp Metabolic Rit292 GLUCOSE 169 mg/dL 05/28/2021 Unkn own Comp Metabolic Lvy529 Creat 1.9 mg/dL 05/28/2021 Unkn own Comp Metabolic Mcs028 eGFR 37 ml/min/1.73m2 05/28/20 21 Unknown Comp Metabolic Yhd137 BUN 35 mg/dL 05/28/2021 Unkn own Comp Metabolic Gbz453 B/C Ratio 18.7 Ratio 05/28/2021 Unk nown Comp Metabolic Sje917 CALCIUM 8.7 mg/dL 05/28/2021 Unkn own Comp Metabolic Bjy438 ALK PHOS 70 U/L 05/28/2021 Unkn own Comp Metabolic Wni045 AST(SGOT) 17 U/L 05/28/2021 Unkn own Comp Metabolic Ffa504 ALT(SGPT) 14 U/L 05/28/2021 Unkn own Comp Metabolic Znr610 BILI T 0.5 mg/dL 05/28/2021 Unkn own Comp Metabolic Nxn450 ALBUMIN 3.4 g/dL 05/28/2021 Unkn own Comp Metabolic Dtm439 TPRO 6.8 g/dL 05/28/2021 Unkn own Comp Metabolic Cob407 GLOB 3.4 g/dL 05/28/2021 Unkn own Comp Metabolic Dxa973 A/G Ratio 1.0 Ratio 05/28/2021 Unkn own Comp Metabolic Jtm899 Osmo 295 mOsmo 05/28/2021 Unkn own Cbc [...] 05/28/20 21 Unknown Cbc With Differential Ord2 [place]% 12.7 % 05/28/20 21 Unknown Cbc With [...] K/ul 021 Unknown Cbc With Differential Ord2 [place] ABS# 1.2 K/ul 05/28/20 21 Unknown Cbc With Differential Ord2 Eos ABS# 0.3 K/ul 05/28/20 21 Unknown Cbc With Differential Ord2 Baso ABS# 0.0 K/ul 05/28/20 21 Unknown Procedures Procedure Codes Date ADMIN INFLUENZA VIRUS VAC CPT-4: G0008 08/13/2021 IIV NO PRSV INCREASED AG IM CPT-4: 76438 08/13/2021 Vital Signs Date Vital 09/04/2021 Blood Pressure 1: 170/90 Code: 8480-6 BMI: 38.8 Code: 10067-3 Heart Rate 1: 95 bpm Height: 5'9" Code: 8302-2 SpO2: 95% Temperature: 3 5.9 (C) / 96.6 (F) Weight: 263 lbs Code: 64381-8 08/13/2021 Blood Pressure 1: 160/84 Code: 8480-6 BMI: 38.8 Code: 51099-1 Heart Rate 1: 96 bpm Height: 5'9" Code: 8302-2 Respiratory Rate: 16 bpm SpO2: 94% Temperature: 35.9 (C) / 96.7 (F) Weight: 263 lbs Code: 88461-2 07/23/2021 Blood Pressure 1: 136/84 Code: 8480-6 BMI: 39.6 Code: 88156-1 Heart Rate 1: 80 bpm Height: 5'9" Code: 8302-2 Respiratory Rate: 16 bpm SpO2: 96% Temperature: 36.2 (C) / 97.1 (F) Weight: 268 lbs Code: 77000-1 04/23/2021 Blood Pressure 1: 150/82 Code: 8480-6 Bl ood Pressure 1: 124/80 Code: 8480-6 BMI: 39.9 Code: 43400-6 Heart Rate 1: 81 bpm Height: 5'9" Code: 8302-2 Respiratory Rate: 16 bpm SpO2: 96% Temperature: 36.1 (C) / 96.9 (F) We ight: 270 lbs Code: 04947-2 03/19/2021 Blood Pressure 1: 134/72 Code: 8480-6 BMI: 40.5 Code: 63105-2 Heart Rate 1: 77 bpm Height: 5'9" Code: 8302-2 Respiratory Rate: 18 bpm SpO2: 96% Temperature: 36.7 (C) / 98.0 (F) Weight: 274 lbs 5 oz Code: 33690-0 Functional Status No Functional Status data Reason For Visit Reason For Visit Effective Dates Notes hypertension 09/04/2021 hypertension 08/13/2021 diabetes mellitus 07/23/2021 hypertension 04/23/2021 hypertension 03/19/2021 Encounters Encounter Performer Location Codes Date EST. PATIENT, LEVEL IV Diagnosis: Essential (primary) hypertension[ICD10: I10] Diagnosis: 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 chronic kidney disease, with long-term current use of insulin[ICD10: E11.22] Diagnosis: Chronic kidney disease, stage 3b[ICD10: N18.32] Diagnosis: Constipation[ICD10: K59.00] Diagnosis: Hepatitis C antibody test positive[ICD10: R76.8] Rosi Maddox MD, [facility] CPT-4: 65525 09/04/2021 [id number]) [id number] EST. PATIENT, LEVEL IV Diagnosis: Essential (primary) hypertension[ICD10: I10] Diagnosis: 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 chronic kidney disease, with long-term current use of insulin[ICD10: E11.22] Diagnosis: Chronic kidney disease, stage 3b[ICD10: N18.32] Anny Maddox MD, [facility] CPT-4: 56720 08/13/2021 ([id number]) 04202 EST. PATIENT, LEVEL IV Diagnosis: Essential (primary) hypertension[ICD10: I10] Diagnosis: Chronic kidney disease, stage 3b[ICD10: N18.32] Anny Maddox MD, [facility] CPT-4: 81435 07/23/2021 ([id number]) [id number] EST. 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[ICD10: I87.2] Anny Maddox MD, [facility] CPT-4: 78512 04/23/2021 ([id number]) OFFICE/OUTPATIENT VISIT NEW Diagnosis: Essential (primary) hypertension[ICD10: I10] Diagnosis: Chronic kidney disease, stage 3b[ICD10: N18.32] Diagnosis: snf (current) use of insulin[ICD10: Z79.4] Diagnosis: 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 chronic kidney disease, with long-term current use of insulin[ICD10: E11.22] Diagnosis: Localized edema[ICD10: R60.0] Diagnosis: Edema of right lower leg due to peripheral venous insufficiency[ICD10: I87.2] Anny Maddox MD, [facility] CPT-4: 25674 03/19/2021 Plan of Care Planned Activity Notes Codes Status Date Visit Plan: Hypertension - Recently seen in ER for elevated BP and concern for kidney function. BP elevated initially during visit, but then cam down to 120/78. Pt reports hydralazine 25mg tablet x 1 dose caused his BP to drop to 90/70's, lasting for over 12 hours over the weekend. He reported a recent increase in hydralazine as the 10mg tablets were not effective. Collaborated with Dr. Maddox, instructing to decrease to 1/2 tablet TID. Discussed with patient who is not open to this. He instead wants to take the 25mg TID and just hold if his BP drops. Type 2 Diabetes Mellitus - continue current regimen and us e of CGM. Pt reports averages around 150. Chronic Kidney Disease - Discussed pt need to continue to follow up with [facility], Dr. Sheldon for management of kidney disease. Hepatitis C antibody positive - found after hospital staff had needle stick injury. Labs are Hep C antibody positive. Will recheck antiHCV, along with Hep C RNA. To keep [facility] updated on newest results. Discussed with pt he denies any past h/o Hep C. He wonders if he might have had Hep C vaccination 13 years ago. Chronic constipation - pt with ongoing constipation. Chronic use of Senna S and dulcolax tabs nightly. Discussed chronic use can lead the need for increased dosages. Discussed use of Linzess, pt declines wanting to just stick with taking Dulcolax 15mg at bedtime, despite my recommendation for alternatives. 09/04/2021 Appointment: Ros[facility] Phelan [facility] [phone] [id number] [place] (30 min) Complex 09/04/2021 Patient Education: Patient Medication Summary Completed 09/04/2021 Appointment: [facility] Phelan [facility] [phone] [id number] [place] (30 min) Complex 09/03/2021 Visit Plan: Hypertension - improved cont rol [...] controlled. 08/13/2021 Appointment: Anny Maddox [facility] [phone] [id number] [place] (15 min) Moderate 08/13/2021 Patient Education: Patient [...] renal diet - will send referral to nib inspector for education of patient. 07/23/2021 Appointment: Anny Maddox WPtel: [phone] [facility] (15 min) Moderate 07/23/2021 Patient Education: Patient Medication Summary Completed 07/23/2021 Patient Education: Patient Medication Summary Completed 05/25/2021 Visit Plan: Gait imbalance - referral to [facility] for balance therapy Diabetes mellitus - chronic - pt insulin dependent, has not been managing his diabetes very well with dietary indescretion, pt has been referred to nib inspector. Peripheral edema - with peripheral vascular disease [...] acute concerns. 04/23/2021 Appointment: Anny Maddox [facility]Ptel[facility] (15 min) Moderate 04/23/2021 Patient Education: Patient Medication Summary Completed 04/23/2021 Visit Plan: Chronic renal failure - defe r to Nephrology. Pt has not been following a renal diet - will send referral to nib inspector for education of patient. Diabetes mellitus - [...] clean out of his ears. referral to nib inspector for swelling, renal disease and diabetes. 03/19/2021 Patient Education: Patient Medication Summary Completed 03/19/2021 Instructions Comment FOLLOW UP WITH DR SHELDON, NEPHROLOGY ON CHRONIC KIDNEY DISEASE CONTINUE TO MONITOR BP AND WHEN TAKING HYDRALAZINE 25MG 1/2 TABLET THREE TIMES A DAY, THE 10MG TABLETS WERE NOT ENOUGH, HOLD IF YOU BLOOD PRESSURE 110/60. LET US KNOW IF DULCULOX AND SENNA S REGIMEN NOT EFFECTIVE WE WILL CALL [facility] TO SEE WHAT ADDITIONAL SERVICES THEY CAN PROVIDE WILL RECHECK HEPATITIS C LABS TODAY . Hypertension - Recently seen in ER for elevated BP and concern for kidney function. BP elevated initially during visit, but then cam down to 120/78. Pt reports hydralazine 25mg tablet x 1 dose caused his BP to drop to 90/70's, lasting for over 12 hours over the weekend. He reported a recent increase in hydralazine as the 10mg tablets were not effective. Collaborated with Dr. Maddox, instructing to decrease to 1/2 tablet TID. Discussed with patient who is not open to this. He instead wants to take the 25mg TID and just hold if his BP drops. Type 2 Diabetes Mellitus - continue current regimen and use of CGM. Pt reports averages around 150. Chronic Kidney Disease - Discussed pt need to continue to follow up with [facility], Dr. Sheldon for management of kidney disease. Hepatitis C antibody positive - found after hospital staff had needle stick injury. Labs are Hep C antibody positive. Will recheck antiHCV, along with Hep C RNA. To keep occupational health updated on newest results. Discussed with pt he denies any past h/o Hep C. He wonders if he might have had Hep C vaccination 13 years ago. Chronic constipation - pt with ongoing constipation. Chronic use of Senna S and dulcolax tabs nightly. Discussed chronic use can lead the need for increased dosages. Discussed use of Linzess, pt declines wanting to just stick with taking Dulcolax 15mg at bedtime, despite my recommendation for alternatives. . Hypertension - improved control per hi [...] renal diet - will send referral to nib inspector for education of patient. increase the losartan to 50mg twice lenora y . Gait imbalance - referral to [facility] therapy Diabetes mellitus - chronic - pt insulin dependent, has not been managing his diabetes very well with dietary indescretion, pt has been referred to nib inspector. Peripheral edema - with peripheral vascular disease [...] Chronic renal failure - defer to Nephr ololiviay. Pt has not been following a renal diet - will send referral to nib inspector for education of patient. Diabetes mellitus - [...] clean out of his ears. referral to nib inspector for swelling, renal disease and diabetes. Medical Equipment No Medical Equipment data Health Concerns Section Health Concerns data not found Goals Section Goals data not found Interventions Section Interventions data not found Health Status Evaluations/Outcomes Section Health Status Evaluations/Outcomes data not found Advance Directives No Advance Directive data
--- OUTSIDE RECORDS SUMMARY | 2021-10-11 00:54 | XMS REPORT | CCD ---
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 Name Role Phone Anny Maddox PP Unavailable CCM Unavailable Summary Purpose Interface Exchange Insurance Providers Payer name Policy type / Coverage type Covered alliance party ID Effective Begin Date Effective End Date [employer] Medicare Part B [id number] Un known Unknown Family history Father Diagnosis [facility] 03/19/2021 Employment Unknown 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 [employer] 03/19/[address]: 427236663 Never smoker 03/19/[address]: 080085383 Never drinks alcohol 2020 Allergies, Adverse Reactions, [...] disease, stage 3b ICD-10: N18.32 03/19/2021 Active alf (current) use of insulin ICD-10: Z79.4 03/19/2021 Active Medications Medication Codes Instructions Start Date Stop Date Status Fill Instructions Miralax 17 gram/dose oral powder RxNorm: 590922 17 Gram(s) Oral every day 10/02/2021 10/02/2021 Inactive Miralax 17 gram/dose oral powder RxNorm: 031052 17 Gram(s) Oral every day 10/02/2021 10/31/2021 Active carvedilol 25 mg tablet RxNorm: 676627 Take 1 Tablet(s) Oral tw o times a day 10/01/2021 11/29/2021 Active tramadol 50 mg tablet RxNorm: 568916 Take 1 Tablet(s) O ral Every 8 hrs as needed 09/25/2021 09/25/2021 Inactive tramadol 50 mg tablet RxNorm: 086107 Take 1 Tablet(s) O ral Every 8 hrs as needed 09/25/2021 09/25/2021 Inactive Linzess 145 mcg capsule RxNorm: 7937088 Take 1 Capsule(s) Oral e very day 09/10/2021 10/09/2021 Active finasteride 5 mg tablet RxNorm: 887521 Take 1 Tablet(s) Oral ev harjinder day 09/10/2021 12/08/2021 Active Linzess 145 mcg capsule RxNorm: 6776403 Take 1 Capsule(s) Oral e very day 09/10/2021 09/10/2021 Inactive hydralazine 25 mg tablet RxNorm: 050016 1 Tablet(s) Oral three times a day 08/31/2021 09/29/2021 Inactive tamsulosin 0.4 mg capsule RxNorm: 116939 Take 1 Capsule(s) Oral every day 08/29/2021 11/26/2021 Active ondansetron 4 mg disintegrating tablet RxNorm: 649857 1 Tablet(s) Oral four times a day 2021 2021 Inactive ondansetron 4 mg disintegrating tablet RxNorm: 256897 1 Tablet(s) Oral four times a day as needed 2021 08/26/2021 Inactive diclofenac 1 % topical gel RxNorm: 914267 Apply 4 Gram( s) Topical four times a day as needed for pain 08/13/2021 No Stop Date Active dispense 3 tubes - please deliver loratadine 10 mg tablet RxNorm: 418763 Take 1 Tablet(s) Oral 08/13/2021 08/07/2022 Active please deliver for t he patient hydralazine 25 mg tablet RxNorm: 186114 1 Tablet(s) Oral three times a day 08/06/2021 08/31/2021 Inactive carvedilol 25 mg tablet RxNorm: 359779 Take 1 Tablet(s) Oral tw o times a day 08/03/2021 08/03/2021 Inactive omeprazole 40 mg capsule,delayed release RxNorm: 394835 Take 1 Capsule(s) Oral every day 07/23/2021 10/20/2021 Active hydralazine 10 mg tablet RxNorm: 515367 Take 1 Tablet(s ) Oral two times a day noon and HS 07/23/2021 08/05/2021 Inactive clonidine 0.3 mg/24 hr weekly transdermal patch RxNorm: 9986 79 Take 1 Patch Transdermal weekly 07/23/2021 07/31/2021 Inactive please delive r to pt's home - use good rx if more than 40$ with regular insurance cefdinir 300 mg capsule RxNorm: 115724 Take 1 Capsule(s) Oral t wo times a day 07/19/2021 07/25/2021 Inactive cefdinir 300 mg capsule RxNorm: 773737 Take 1 Capsule(s) Oral t wo times a day 07/19/2021 07/19/2021 Inactive hydralazine 10 mg tablet RxNorm: 967103 Take 1 Tablet(s ) Oral two times a day noon and HS 07/13/2021 07/13/2021 Inactive finasteride 5 mg tablet RxNorm: 008288 Take 1 Tablet(s) Oral ev harjinder day 05/31/2021 08/28/2021 Inactive tamsulosin 0.4 mg capsule RxNorm: 060777 Take 1 Capsule(s) Oral every day 05/31/2021 08/28/2021 Inactive carvedilol 25 mg tablet RxNorm: 841648 Take 1 Tablet(s) Oral tw o times a day 05/18/2021 07/16/2021 Inactive isosorbide mononitrate ER 60 mg tablet,extended release 24 h r RxNorm: 847884 2 Tablet(s) Oral every day 04/26/2021 04/20/2022 Active hydralazine 10 mg tablet RxNorm: 695067 Take 1 Tablet(s ) Oral every night at bedtime 04/26/2021 05/25/2021 Inactive hydralazine 10 mg tablet RxNorm: 708021 Take 1 Tablet(s ) Oral every night at bedtime 04/26/2021 04/26/2021 Inactive losartan 50 mg tablet RxNorm: 277689 Take 1 Tablet(s) Oral two times a day 04/23/2021 04/17/2022 Active dc amlodipine omeprazole 40 mg capsule,delayed release RxNorm: 109941 Take 1 Capsule(s) Oral every day 04/23/2021 07/21/2021 Inactive losartan 50 mg tablet RxNorm: 360571 1 Tablet(s) Oral every nig ht at bedtime 04/12/2021 04/22/2021 Inactive dc amlodipine losartan 50 mg tablet RxNorm: 847606 1 Tablet(s) Oral every nig ht at bedtime 04/12/2021 04/11/2021 Inactive clonidine HCl 0.3 mg tablet RxNorm: 119412 1 Tablet(s) Oral two times a day 04/04/2021 07/22/2021 Inactive Voltaren Arthritis Pain 1 % topical gel RxNorm: 504561 2 Gram(s) Topical four times a day as needed may increase to 4 grams if needed 03/29/202103/04 Inactive Voltaren Arthritis Pain 1 % topical gel RxNorm: 733850 2 Gram(s) Topical four times a day as needed may increase to 4 grams if needed to affected area of pain 03/29/2021 07/26/2021 Inactive Colace 100 mg capsule RxNorm: 9292886 2 Capsule(s) Oral every day 0 03/19/2021 No Stop Date Active Novolog Flexpen U-100 Insulin aspart 100 unit/mL (3 mL ) subcutaneous RxNorm: 1896316 6-7 Unit(s) Subcutaneous before meals 03/19/2021 No Stop Date Act josh Tradjenta 5 mg tablet RxNorm: 8568573 1 Tablet(s) Oral every day No Stop Date Active furosemide 40 mg tablet RxNorm: 451113 1 Tablet(s) Oral every day 0 03/19/2021 No Stop Date Active Levemir FlexTouch U-100 Insulin 100 unit/mL (3 mL) sub cutaneous pen RxNorm: 861409 25 Unit(s) Subcutaneous two times a day 03/19/2021 No Stop Date A ctive Aspirin Low Dose 81 mg tablet,delayed release RxNorm: 753693 1 Tablet(s) Oral every day 03/19/2021 No Stop Date Active Vitamin D3 125 mcg (5,000 unit) tablet RxNorm: 371056 1 Tablet(s) Oral every day 03/19/2021 No Stop Date Active tamsulosin 0.4 mg capsule RxNorm: 392650 1 Capsule(s) Oral every da y 03/19/2021 05/31/2021 Inactive clonidine HCl 0.3 mg tablet RxNorm: 378816 1 Tablet(s) Oral two times a day 03/19/2021 04/03/2021 Inactive isosorbide mononitrate ER 120 mg tablet,extended release 24 hr RxNorm: 913068 1 Tablet(s) Oral every day 03/19/2021 04/26/2021 Inactive omeprazole 40 mg capsule,delayed release RxNorm: 757717 1 Capsule(s) Oral every day 03/19/2021 04/23/2021 Inactive finasteride 5 mg tablet RxNorm: 324038 1 Tablet(s) Oral every day 0 03/19/2021 05/31/2021 Inactive carvedilol 25 mg tablet RxNorm: 165979 1 Tablet(s) Oral two drake es a day 03/19/2021 05/18/2021 Inactive amlodipine 2.5 mg tablet RxNorm: 671424 1 Tablet(s) Oral every day 03/19/2021 04/09/2021 Inactive PreserVision Lutein oral RxNorm: 969856 oral 03/19/2021 Active Medication Administered No Medication Administered data Immunizations Vaccine Codes Date Status Influenza CVX: 135 08/13/2021 Complete Covid-19 CVX: 207 01/26/2021 Covid-19 CVX: 207 12/29/2020 Pneumococcal (Adult) CVX: 33 08/03/2020 Results Observation Observation Code Item Item Code Result Date S [facility] Location HEP C ANTIBODY WITH REFLEX TO VIRAL LOAD F411 Hepatitis C Ab Negative 09/06/2021 Unknown %Hba1C Ion185 % HbA1c 50372-7 8.2 % 05/28/2021 Unknown %Hba1C Eey147 Gluc Ave 189 mg/dL 05/28/2021 Unknown Comp Metabolic Nkc467 NA 142 mEq/L 05/28/2021 Unkn own Comp Metabolic Udf221 K 4.1 mEq/L 05/28/2021 Unkn own Comp Metabolic Quj213 CL 104 mEq/L 05/28/2021 Unkn own Comp Metabolic Pui398 CO2 29.0 mEq/L 05/28/2021 Unk nown Comp Metabolic Myp643 ANION GAP 13 05/28/2021 Unkn own Comp Metabolic Ggn688 GLUCOSE 169 mg/dL 05/28/2021 Unkn own Comp Metabolic Wcy537 Creat 1.9 mg/dL 05/28/2021 Unkn own Comp Metabolic Rmo506 eGFR 37 ml/min/1.73m2 05/28/20 21 Unknown Comp Metabolic Rcp057 BUN 35 mg/dL 05/28/2021 Unkn own Comp Metabolic Hnf163 B/C Ratio 18.7 Ratio 05/28/2021 Unk nown Comp Metabolic Xtu275 CALCIUM 8.7 mg/dL 05/28/2021 Unkn own Comp Metabolic Imv559 ALK PHOS 70 U/L 05/28/2021 Unkn own Comp Metabolic Yts715 AST(SGOT) 17 U/L 05/28/2021 Unkn own Comp Metabolic Rlv280 ALT(SGPT) 14 U/L 05/28/2021 Unkn own Comp Metabolic Twn989 BILI T 0.5 mg/dL 05/28/2021 Unkn own Comp Metabolic Rcc241 ALBUMIN 3.4 g/dL 05/28/2021 Unkn own Comp Metabolic Zqa643 TPRO 6.8 g/dL 05/28/2021 Unkn own Comp Metabolic Qik291 GLOB 3.4 g/dL 05/28/2021 Unkn own Comp Metabolic Opb190 A/G Ratio 1.0 Ratio 05/28/2021 Unkn own Comp Metabolic Pcs588 Osmo 295 mOsmo 05/28/2021 Unkn own Cbc [...] 05/28/20 21 Unknown Cbc With Differential Ord2 [place]% 12.7 % 05/28/20 21 Unknown Cbc With [...] K/ul 021 Unknown Cbc With Differential Ord2 [place] ABS# 1.2 K/ul 05/28/20 21 Unknown Cbc With Differential Ord2 Eos ABS# 0.3 K/ul 05/28/20 21 Unknown Cbc With Differential Ord2 Baso ABS# 0.0 K/ul 05/28/20 21 Unknown Procedures Procedure Codes Date ADMIN INFLUENZA VIRUS VAC CPT-4: G0008 08/13/2021 IIV NO PRSV INCREASED AG IM CPT-4: 12624 08/13/2021 Vital Signs Date Vital 09/04/2021 Blood Pressure 1: 170/90 Code: 8480-6 BMI: 38.8 Code: 39841-0 Heart Rate 1: 95 bpm Height: 5'9" Code: 8302-2 SpO2: 95% Temperature: 3 5.9 (C) / 96.6 (F) Weight: 263 lbs Code: 84974-7 08/13/2021 Blood Pressure 1: 160/84 Code: 8480-6 BMI: 38.8 Code: 39400-9 Heart Rate 1: 96 bpm Height: 5'9" Code: 8302-2 Respiratory Rate: 16 bpm SpO2: 94% Temperature: 35.9 (C) / 96.7 (F) Weight: 263 lbs Code: 14533-9 07/23/2021 Blood Pressure 1: 136/84 Code: 8480-6 BMI: 39.6 Code: 11078-2 Heart Rate 1: 80 bpm Height: 5'9" Code: 8302-2 Respiratory Rate: 16 bpm SpO2: 96% Temperature: 36.2 (C) / 97.1 (F) Weight: 268 lbs Code: 57125-0 04/23/2021 Blood Pressure 1: 150/82 Code: 8480-6 Bl ood Pressure 1: 124/80 Code: 8480-6 BMI: 39.9 Code: 09039-5 Heart Rate 1: 81 bpm Height: 5'9" Code: 8302-2 Respiratory Rate: 16 bpm SpO2: 96% Temperature: 36.1 (C) / 96.9 (F) We ight: 270 lbs Code: 86482-7 03/19/2021 Blood Pressure 1: 134/72 Code: 8480-6 BMI: 40.5 Code: 41093-0 Heart Rate 1: 77 bpm Height: 5'9" Code: 8302-2 Respiratory Rate: 18 bpm SpO2: 96% Temperature: 36.7 (C) / 98.0 (F) Weight: 274 lbs 5 oz Code: 67815-4 Functional Status No Functional Status data Reason For Visit Reason For Visit Effective Dates Notes hypertension 09/04/2021 hypertension 08/13/2021 diabetes mellitus 07/23/2021 hypertension 04/23/2021 hypertension 03/19/2021 Encounters Encounter Performer Location Codes Date ([id number]) [id number] EST. 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 PATIENT, LEVEL IV Diagnosis: Essential (primary) hypertension[ICD10: I10] Diagnosis: Chronic kidney disease, stage 3b[ICD10: N18.32] Anny Maddox MD, [facility] CPT-4: 34568 07/23/2021 ([id number]) 48214 EST. 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[ICD10: I87.2] Anny Maddox MD, [facility] CPT-4: 47626 04/23/2021 ([id number]) OFFICE/OUTPATIENT VISIT NEW Diagnosis: Essential (primary) hypertension[ICD10: I10] Diagnosis: Chronic kidney disease, stage 3b[ICD10: N18.32] 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 Sheldon for management of kidney disease. [...] for alternatives. 09/04/2021 Appointment: Rosi Phelan WPtel: [address] [place], [place] [id number] [place] (30 min) Complex 09/04/2021 Patient Education: Patient Medication Summary Completed 09/04/2021 [facility]ointment[facility] [phone] [id number] [place] ([facility] min) Complex 09/03/2021 Visit Plan: [...] controlled. 08/13/2021 Appointment: An[facility] Madd[facility] [phone] [id number] [place] (15 min) Moderate 08/13/2021 Patient Education: [...] renal diet - will send referral to swimming pool serviceperson for education of patient. 07/23/2021 Appointment: Anny Maddox [facility]el[facility] [phone] [facility] [place] (15 min) Moderate 07/23/2021 Patient Education: Patient Medication Summary Completed 07/23/2021 Patient Education: Patient Medication Summary Completed 05/25/2021 Visit Plan: Gait imbalance - referral to [facility] physical therapy for balance therapy Diabetes mellitus - chronic - pt insulin dependent, has not been managing his diabetes very well with dietary indescretion, pt has been referred to swimming pool serviceperson. Peripheral edema - with peripheral vascular disease [...] acute concerns. 04/23/2021 Appointment: Anny Maddox WPtel: [address] [place], [place] [id number] (15 min) Moderate 04/23/2021 Patient Education: Patient Medication Summary Completed 04/23/2021 Visit Plan: Chronic renal failure - defe r to Nephrology. Pt has not been following a renal diet - will send referral to swimming pool serviceperson for education of patient. Diabetes mellitus - [...] clean out of his ears. referral to swimming pool serviceperson for swelling, renal disease and diabetes. 03/19/2021 [...] S REGIMEN NOT EFFECTIVE WE WILL CALL [facility] TO SEE WHAT ADDITIONAL SERVICES THEY CAN [...] need to continue to follow up with warp coiler, Dr. Sheldon for management of kidney disease. [...] renal diet - will send referral to swimming pool serviceperson for education of patient. increase the losartan to 50mg twice lenora y . Gait imbalance - referral to [facility] for balance therapy Diabetes mellitus - chronic - pt insulin dependent, has not been managing his diabetes very well with dietary indescretion, pt has been referred to swimming pool serviceperson. Peripheral edema - with peripheral vascular disease [...] renal diet - will send referral to swimming pool serviceperson for education of patient. Diabetes mellitus - [...] clean out of his ears. referral to swimming pool serviceperson for swelling, renal disease and diabetes. Medical Equipment No Medical Equipment data Health Concerns Section Health Concerns data not found Goals Section Goals data not found Interventions Section Interventions data not found Health Status Evaluations/Outcomes Section Health Status Evaluations/Outcomes data not found Advance Directives No Advance Directive data
--- OUTSIDE RECORDS SUMMARY | 2021-10-11 00:54 | XMS REPORT | CCD ---
Author Author Artie Maddox Organization Anny Maddox MD, [facility] Address [address] [place] [address] Phone Care Team Providers Care Volunteer Recruiter Name Role Phone Anny Maddox PP Unavailable CCM Unavailable Summary Purpose Interface Exchange Insurance Providers Payer name Policy type / Coverage type Covered alliance party ID Effective Begin Date Effective End Date [employer] Medicare Part B [id number] Un known Unknown Family history Father Diagnosis [...] of children Unknown 3 two sons live [facility] and 1 dtr lives in [facility] 03/19/2021 Employment Unknown 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 [employer] 03/19/[address]: 468409072 Never smoker 03/19/[address]: 673621035 Never drinks alcohol 2020 Allergies, Adverse Reactions, [...] disease, stage 3b ICD-10: N18.32 03/19/2021 Active jail (current) use of insulin ICD-10: Z79.4 03/19/2021 Active Medications Medication Codes Instructions Start Date Stop Date Status Fill Instructions Zofran 4 mg tablet RxNorm: 521076 1 Tablet(s) Oral Every 8 hrs as needed 10/03/2021 10/03/2021 Inactive doesn't want the dis olvable tabs- he can't open them Zofran 4 mg tablet RxNorm: 139728 1 Tablet(s) Oral Every 8 hrs as needed 10/03/2021 11/01/2021 Active doesn't want the dis olvable tabs- he can't open them Miralax 17 gram/dose oral powder RxNorm: 425090 17 Gram(s) Oral every day 10/02/2021 10/31/2021 Active Miralax 17 gram/dose oral powder RxNorm: 101058 17 Gram(s) Oral every day 10/02/2021 10/02/2021 Inactive carvedilol 25 mg tablet RxNorm: 334940 Take 1 Tablet(s) Oral tw o times a day 10/01/2021 11/29/2021 Active tramadol 50 mg tablet RxNorm: 623620 Take 1 Tablet(s) O ral Every 8 hrs as needed 09/25/2021 09/25/2021 Inactive tramadol 50 mg tablet RxNorm: 039541 Take 1 Tablet(s) O ral Every 8 hrs as needed 09/25/2021 09/25/2021 Inactive Linzess 145 mcg capsule RxNorm: 2252004 Take 1 Capsule(s) Oral e very day 09/10/2021 10/09/2021 Active finasteride 5 mg tablet RxNorm: 321434 Take 1 Tablet(s) Oral ev harjinder day 09/10/2021 12/08/2021 Active Linzess 145 mcg capsule RxNorm: 1843642 Take 1 Capsule(s) Oral e very day 09/10/2021 09/10/2021 Inactive hydralazine 25 mg tablet RxNorm: 532874 1 Tablet(s) Oral three times a day 08/31/2021 09/29/2021 Inactive tamsulosin 0.4 mg capsule RxNorm: 094314 Take 1 Capsule(s) Oral every day 08/29/2021 11/26/2021 Active ondansetron 4 mg disintegrating tablet RxNorm: 916616 1 Tablet(s) Oral four times a day 2021 2021 Inactive ondansetron 4 mg disintegrating tablet RxNorm: 148222 1 Tablet(s) Oral four times a day as needed 2021 08/26/2021 Inactive diclofenac 1 % topical gel RxNorm: 332750 Apply 4 Gram( s) Topical four times a day as needed for pain 08/13/2021 No Stop Date Active dispense 3 tubes - please deliver loratadine 10 mg tablet RxNorm: 115650 Take 1 Tablet(s) Oral ev harjinder day 08/13/2021 08/07/2022 Active please deliver for t he patient hydralazine 25 mg tablet RxNorm: 528585 1 Tablet(s) Oral three times a day 08/06/2021 08/31/2021 Inactive carvedilol 25 mg tablet RxNorm: 885973 Take 1 Tablet(s) Oral tw o times a day 08/03/2021 08/03/2021 Inactive omeprazole 40 mg capsule,delayed release RxNorm: 947330 Take 1 Capsule(s) Oral every day 07/23/2021 10/20/2021 Active hydralazine 10 mg tablet RxNorm: 869119 Take 1 Tablet(s ) Oral two times a day noon and HS 07/23/2021 08/05/2021 Inactive clonidine 0.3 mg/24 hr weekly transdermal patch RxNorm: 9986 79 Take 1 Patch Transdermal weekly 07/23/2021 07/31/2021 Inactive please delive r to pt's home - use good rx if more than 40$ with regular insurance cefdinir 300 mg capsule RxNorm: 324286 Take 1 Capsule(s) Oral t wo times a day 07/19/2021 07/25/2021 Inactive cefdinir 300 mg capsule RxNorm: 358327 Take 1 Capsule(s) Oral t wo times a day 07/19/2021 07/19/2021 Inactive hydralazine 10 mg tablet RxNorm: 287141 Take 1 Tablet(s ) Oral two times a day noon and HS 07/13/2021 07/13/2021 Inactive finasteride 5 mg tablet RxNorm: 547900 Take 1 Tablet(s) Oral ev harjinder day 05/31/2021 08/28/2021 Inactive tamsulosin 0.4 mg capsule RxNorm: 257549 Take 1 Capsule(s) Oral every day 05/31/2021 08/28/2021 Inactive carvedilol 25 mg tablet RxNorm: 830868 Take 1 Tablet(s) Oral tw o times a day 05/18/2021 07/16/2021 Inactive isosorbide mononitrate ER 60 mg tablet,extended release 24 h r RxNorm: 496450 2 Tablet(s) Oral every day 04/26/2021 04/20/2022 Active hydralazine 10 mg tablet RxNorm: 389679 Take 1 Tablet(s ) Oral every night at bedtime 04/26/2021 05/25/2021 Inactive hydralazine 10 mg tablet RxNorm: 107732 Take 1 Tablet(s ) Oral every night at bedtime 04/26/2021 04/26/2021 Inactive losartan 50 mg tablet RxNorm: 538069 Take 1 Tablet(s) Oral two times a day 04/23/2021 04/17/2022 Active dc amlodipine omeprazole 40 mg capsule,delayed release RxNorm: 863473 Take 1 Capsule(s) Oral every day 04/23/2021 07/21/2021 Inactive losartan 50 mg tablet RxNorm: 942455 1 Tablet(s) Oral every nig ht at bedtime 04/12/2021 04/22/2021 Inactive dc amlodipine losartan 50 mg tablet RxNorm: 402966 1 Tablet(s) Oral every nig ht at bedtime 04/12/2021 04/11/2021 Inactive clonidine HCl 0.3 mg tablet RxNorm: 216892 1 Tablet(s) Oral two times a day 04/04/2021 07/22/2021 Inactive Voltaren Arthritis Pain 1 % topical gel RxNorm: 628823 2 Gram(s) Topical four times a day as needed may increase to 4 grams if needed 03/29/202103/04 Inactive Voltaren Arthritis Pain 1 % topical gel RxNorm: 308064 2 Gram(s) Topical four times a day as needed may increase to 4 grams if needed to affected area of pain 03/29/2021 07/26/2021 Inactive Colace 100 mg capsule RxNorm: 4065297 2 Capsule(s) Oral every day 0 03/19/2021 No Stop Date Active Novolog Flexpen U-100 Insulin aspart 100 unit/mL (3 mL ) subcutaneous RxNorm: 4198106 6-7 Unit(s) Subcutaneous before meals 03/19/2021 No Stop Date Act josh Tradjenta 5 mg tablet RxNorm: 3522982 1 Tablet(s) Oral every day No Stop Date Active furosemide 40 mg tablet RxNorm: 411433 1 Tablet(s) Oral every day 0 03/19/2021 No Stop Date Active Levemir FlexTouch U-100 Insulin 100 unit/mL (3 mL) sub cutaneous pen RxNorm: 946908 25 Unit(s) Subcutaneous two times a day 03/19/2021 No Stop Date A ctive Aspirin Low Dose 81 mg tablet,delayed release RxNorm: 574232 1 Tablet(s) Oral every day 03/19/2021 No Stop Date Active Vitamin D3 125 mcg (5,000 unit) tablet RxNorm: 049836 1 Tablet(s) Oral every day 03/19/2021 No Stop Date Active tamsulosin 0.4 mg capsule RxNorm: 165236 1 Capsule(s) Oral every da y 03/19/2021 05/31/2021 Inactive clonidine HCl 0.3 mg tablet RxNorm: 863761 1 Tablet(s) Oral two times a day 03/19/2021 04/03/2021 Inactive isosorbide mononitrate ER 120 mg tablet,extended release 24 hr RxNorm: 117334 1 Tablet(s) Oral every day 03/19/2021 04/26/2021 Inactive omeprazole 40 mg capsule,delayed release RxNorm: 998993 1 Capsule(s) Oral every day 03/19/2021 04/23/2021 Inactive finasteride 5 mg tablet RxNorm: 139867 1 Tablet(s) Oral every day 0 03/19/2021 05/31/2021 Inactive carvedilol 25 mg tablet RxNorm: 438583 1 Tablet(s) Oral two drake es a day 03/19/2021 05/18/2021 Inactive amlodipine 2.5 mg tablet RxNorm: 769749 1 Tablet(s) Oral every day 03/19/2021 04/09/2021 Inactive PreserVision Lutein oral RxNorm: 689846 oral 03/19/2021 Active Medication Administered No Medication Administered data Immunizations Vaccine Codes Date Status Influenza CVX: 135 08/13/2021 Complete Covid-19 CVX: 207 01/26/2021 Covid-19 CVX: 207 12/29/2020 Pneumococcal (Adult) CVX: 33 08/03/2020 Results Observation Observation Code Item Item Code Result Date S vice Location HEP C ANTIBODY WITH REFLEX TO VIRAL LOAD F411 Hepatitis C Ab Negative 09/06/2021 Unknown %Hba1C Ske984 % HbA1c 11549-4 8.2 % 05/28/2021 Unknown %Hba1C Vab511 Gluc Ave 189 mg/dL 05/28/2021 Unknown Comp Metabolic Klm530 NA 142 mEq/L 05/28/2021 Unkn own Comp Metabolic Wwa364 K 4.1 mEq/L 05/28/2021 Unkn own Comp Metabolic Hnt008 CL 104 mEq/L 05/28/2021 Unkn own Comp Metabolic Yxn052 CO2 29.0 mEq/L 05/28/2021 Unk nown Comp Metabolic Lum402 ANION GAP 13 05/28/2021 Unkn own Comp Metabolic Iom903 GLUCOSE 169 mg/dL 05/28/2021 Unkn own Comp Metabolic Bzo897 Creat 1.9 mg/dL 05/28/2021 Unkn own Comp Metabolic Fsg183 eGFR 37 ml/min/1.73m2 05/28/20 21 Unknown Comp Metabolic Del320 BUN 35 mg/dL 05/28/2021 Unkn own Comp Metabolic Lta785 B/C Ratio 18.7 Ratio 05/28/2021 Unk nown Comp Metabolic Xug168 CALCIUM 8.7 mg/dL 05/28/2021 Unkn own Comp Metabolic Ovv045 ALK PHOS 70 U/L 05/28/2021 Unkn own Comp Metabolic Olz921 AST(SGOT) 17 U/L 05/28/2021 Unkn own Comp Metabolic Qoe060 ALT(SGPT) 14 U/L 05/28/2021 Unkn own Comp Metabolic Yds222 BILI T 0.5 mg/dL 05/28/2021 Unkn own Comp Metabolic Vpb940 ALBUMIN 3.4 g/dL 05/28/2021 Unkn own Comp Metabolic Med159 TPRO 6.8 g/dL 05/28/2021 Unkn own Comp Metabolic Wai354 GLOB 3.4 g/dL 05/28/2021 Unkn own Comp Metabolic Grc424 A/G Ratio 1.0 Ratio 05/28/2021 Unkn own Comp Metabolic Vfs416 Osmo 295 mOsmo 05/28/2021 Unkn own Cbc [...] 05/28/20 21 Unknown Cbc With Differential Ord2 [place]% 12.7 % 05/28/20 21 Unknown Cbc With [...] K/ul 021 Unknown Cbc With Differential Ord2 [place] ABS# 1.2 K/ul 05/28/20 21 Unknown Cbc With Differential Ord2 Eos ABS# 0.3 K/ul 05/28/20 21 Unknown Cbc With Differential Ord2 Baso ABS# 0.0 K/ul 05/28/20 21 Unknown Procedures Procedure Codes Date ADMIN INFLUENZA VIRUS VAC CPT-4: G0008 08/13/2021 IIV NO PRSV INCREASED AG IM CPT-4: 23703 08/13/2021 Vital Signs Date Vital 09/04/2021 Blood Pressure 1: 170/90 Code: 8480-6 BMI: 38.8 Code: 18674-2 Heart Rate 1: 95 bpm Height: 5'9" Code: 8302-2 SpO2: 95% Temperature: 3 5.9 (C) / 96.6 (F) Weight: 263 lbs Code: 46477-7 08/13/2021 Blood Pressure 1: 160/84 Code: 8480-6 BMI: 38.8 Code: 01708-8 Heart Rate 1: 96 bpm Height: 5'9" Code: 8302-2 Respiratory Rate: 16 bpm SpO2: 94% Temperature: 35.9 (C) / 96.7 (F) Weight: 263 lbs Code: 97605-2 07/23/2021 Blood Pressure 1: 136/84 Code: 8480-6 BMI: 39.6 Code: 54160-5 Heart Rate 1: 80 bpm Height: 5'9" Code: 8302-2 Respiratory Rate: 16 bpm SpO2: 96% Temperature: 36.2 (C) / 97.1 (F) Weight: 268 lbs Code: 36360-1 04/23/2021 Blood Pressure 1: 150/82 Code: 8480-6 Bl ood Pressure 1: 124/80 Code: 8480-6 BMI: 39.9 Code: 65609-8 Heart Rate 1: 81 bpm Height: 5'9" Code: 8302-2 Respiratory Rate: 16 bpm SpO2: 96% Temperature: 36.1 (C) / 96.9 (F) We ight: 270 lbs Code: 49517-0 03/19/2021 Blood Pressure 1: 134/72 Code: 8480-6 BMI: 40.5 Code: 99361-0 Heart Rate 1: 77 bpm Height: 5'9" Code: 8302-2 Respiratory Rate: 18 bpm SpO2: 96% Temperature: 36.7 (C) / 98.0 (F) Weight: 274 lbs 5 oz Code: 86087-1 Functional Status No Functional Status data Reason [...] antibody test positive[ICD10: R76.8] Rosi Maddox MD, [facility] CPT-4: 94476 09/04/2021 [id number]) [id number] EST. 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 PATIENT, LEVEL IV Diagnosis: Essential (primary) hypertension[ICD10: I10] Diagnosis: Chronic kidney disease, stage 3b[ICD10: N18.32] Anny Maddox MD, [facility] CPT-4: 31585 07/23/2021 [id number]) [id number] EST. 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 Sheldon for management of kidney disease. [...] for alternatives. 09/04/2021 [phone] [id number] [facility] 09/04/2021 Patient Education: Patient Medication Summary Completed 09/04/2021 [facility] [phone] [id number] ([facility] Complex 09/03/2021 Visit Plan: Hypertension [...] less controlled. 08/13/2021 [phone] [id number] ([facility] min) Moderate 08/13/2021 Patient Education: Patient [...] renal diet - will send referral to pie chef for education of patient. 07/23/2021 [facility] [phone] [id number] ([facility]) Moderate 07/23/2021 Patient Education: Patient Medication Summary Completed 07/23/2021 Patient Education: Patient Medication Summary Completed 05/25/2021 Visit Plan: Gait imbalance - referral to [facility] physical therapy for balance therapy Diabetes mellitus - chronic - pt insulin dependent, has not been managing his diabetes very well with dietary indescretion, pt has been referred to pie chef. Peripheral edema - with peripheral vascular disease [...] acute concerns. 04/23/2021 [facility] [phone] [id number] ([facility]) Moderate 04/23/2021 Patient Education: Patient Medication Summary Completed 04/23/2021 Visit Plan: Chronic renal failure - defe r to Nephrology. Pt has not been following a renal diet - will send referral to pie chef for education of patient. Diabetes mellitus - [...] clean out of his ears. referral to pie chef for swelling, renal disease and diabetes. 03/19/2021 [...] S REGIMEN NOT EFFECTIVE WE WILL CALL [facility] TO SEE WHAT ADDITIONAL SERVICES THEY [...] need to continue to follow up with seam press operator, Dr. Sheldon for management of kidney disease. [...] renal diet - will send referral to pie chef for education of patient. increase the losartan to 50mg twice lenora y . Gait imbalance - referral to [facility] therapy Diabetes mellitus - chronic - pt insulin dependent, has not been managing his diabetes very well with dietary indescretion, pt has been referred to pie chef. Peripheral edema - with peripheral vascular disease [...] renal diet - will send referral to pie chef for education of patient. Diabetes mellitus - [...] clean out of his ears. referral to pie chef for swelling, renal disease and diabetes. Medical Equipment No Medical Equipment data Health Concerns Section Health Concerns data not found Goals Section Goals data not found Interventions Section Interventions data not found Health Status Evaluations/Outcomes Section Health Status Evaluations/Outcomes data not found Advance Directives No Advance Directive data
--- OUTSIDE RECORDS SUMMARY | 2021-10-11 00:55 | XMS REPORT | CCD ---
Author Author Artie Maddox Organization Anny Maddox MD, 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 [employer] 03/19/[address]: 715312693 Never smoker 03/19/[address]: 928408082 Never drinks alcohol 2020 Allergies, Adverse Reactions, [...] disease, stage 3b ICD-10: N18.32 03/19/2021 Active longterm (current) use of insulin ICD-10: Z79.4 03/19/2021 Active Medications Medication Codes Instructions Start Date Stop Date Status Fill Instructions carvedilol 25 mg tablet RxNorm: 188001 Take 1 Tablet(s) Oral tw o times a day 10/01/2021 11/29/2021 Active tramadol 50 mg tablet RxNorm: 305185 Take 1 Tablet(s) O ral Every 8 hrs as needed 09/25/2021 09/25/2021 Inactive tramadol 50 mg tablet RxNorm: 264404 Take 1 Tablet(s) O ral Every 8 hrs as needed 09/25/2021 09/25/2021 Inactive Linzess 145 mcg capsule RxNorm: 7236588 Take 1 Capsule(s) Oral e very day 09/10/2021 10/09/2021 Active finasteride 5 mg tablet RxNorm: 189718 Take 1 Tablet(s) Oral ev harjinder day 09/10/2021 12/08/2021 Active Linzess 145 mcg capsule RxNorm: 5875882 Take 1 Capsule(s) Oral e very day 09/10/2021 09/10/2021 Inactive hydralazine 25 mg tablet RxNorm: 254745 1 Tablet(s) Oral three times a day 08/31/2021 09/29/2021 Inactive tamsulosin 0.4 mg capsule RxNorm: 883906 Take 1 Capsule(s) Oral every day 08/29/2021 11/26/2021 Active ondansetron 4 mg disintegrating tablet RxNorm: 704079 1 Tablet(s) Oral four times a day 2021 2021 Inactive ondansetron 4 mg disintegrating tablet RxNorm: 562651 1 Tablet(s) Oral four times a day as needed 2021 08/26/2021 Inactive diclofenac 1 % topical gel RxNorm: 205456 Apply 4 Gram( s) Topical four times a day as needed for pain 08/13/2021 No Stop Date Active dispense 3 tubes - please deliver loratadine 10 mg tablet RxNorm: 629280 Take 1 Tablet(s) Oral ev harjinder day 08/13/2021 08/07/2022 Active please deliver for t he patient hydralazine 25 mg tablet RxNorm: 984349 1 Tablet(s) Oral three times a day 08/06/2021 08/31/2021 Inactive carvedilol 25 mg tablet RxNorm: 815777 Take 1 Tablet(s) Oral tw o times a day 08/03/2021 08/03/2021 Inactive omeprazole 40 mg capsule,delayed release RxNorm: 310342 Take 1 Capsule(s) Oral every day 07/23/2021 10/20/2021 Active hydralazine 10 mg tablet RxNorm: 581291 Take 1 Tablet(s ) Oral two times a day noon and HS 07/23/2021 08/05/2021 Inactive clonidine 0.3 mg/24 hr weekly transdermal patch RxNorm: 9986 79 Take 1 Patch Transdermal weekly 07/23/2021 07/31/2021 Inactive please delive r to pt's home - use good rx if more than 40$ with regular insurance cefdinir 300 mg capsule RxNorm: 264900 Take 1 Capsule(s) Oral t wo times a day 07/19/2021 07/25/2021 Inactive cefdinir 300 mg capsule RxNorm: 230411 Take 1 Capsule(s) Oral t wo times a day 07/19/2021 07/19/2021 Inactive hydralazine 10 mg tablet RxNorm: 771392 Take 1 Tablet(s ) Oral two times a day noon and HS 07/13/2021 07/13/2021 Inactive finasteride 5 mg tablet RxNorm: 156294 Take 1 Tablet(s) Oral ev harjinder day 05/31/2021 08/28/2021 Inactive tamsulosin 0.4 mg capsule RxNorm: 941693 Take 1 Capsule(s) Oral every day 05/31/2021 08/28/2021 Inactive carvedilol 25 mg tablet RxNorm: 521080 Take 1 Tablet(s) Oral tw o times a day 05/18/2021 07/16/2021 Inactive isosorbide mononitrate ER 60 mg tablet,extended release 24 h r RxNorm: 482271 2 Tablet(s) Oral every day 04/26/2021 04/20/2022 Active hydralazine 10 mg tablet RxNorm: 133476 Take 1 Tablet(s ) Oral every night at bedtime 04/26/2021 05/25/2021 Inactive hydralazine 10 mg tablet RxNorm: 536445 Take 1 Tablet(s ) Oral every night at bedtime 04/26/2021 04/26/2021 Inactive losartan 50 mg tablet RxNorm: 368289 Take 1 Tablet(s) Oral two times a day 04/23/2021 04/17/2022 Active dc amlodipine omeprazole 40 mg capsule,delayed release RxNorm: 268294 Take 1 Capsule(s) Oral every day 04/23/2021 07/21/2021 Inactive losartan 50 mg tablet RxNorm: 748519 1 Tablet(s) Oral every nig ht at bedtime 04/12/2021 04/22/2021 Inactive dc amlodipine losartan 50 mg tablet RxNorm: 686705 1 Tablet(s) Oral every nig ht at bedtime 04/12/2021 04/11/2021 Inactive clonidine HCl 0.3 mg tablet RxNorm: 874701 1 Tablet(s) Oral two times a day 04/04/2021 07/22/2021 Inactive Voltaren Arthritis Pain 1 % topical gel RxNorm: 553861 2 Gram(s) Topical four times a day as needed may increase to 4 grams if needed 03/29/202103/04 Inactive Voltaren Arthritis Pain 1 % topical gel RxNorm: 961766 2 Gram(s) Topical four times a day as needed may increase to 4 grams if needed to affected area of pain 03/29/2021 07/26/2021 Inactive Colace 100 mg capsule RxNorm: 7824668 2 Capsule(s) Oral every day 0 03/19/2021 No Stop Date Active Novolog Flexpen U-100 Insulin aspart 100 unit/mL (3 mL ) subcutaneous RxNorm: 9349356 6-7 Unit(s) Subcutaneous before meals 03/19/2021 No Stop Date Act josh Tradjenta 5 mg tablet RxNorm: 4373095 1 Tablet(s) Oral every day No Stop Date Active furosemide 40 mg tablet RxNorm: 669010 1 Tablet(s) Oral every day 0 03/19/2021 No Stop Date Active Levemir FlexTouch U-100 Insulin 100 unit/mL (3 mL) sub cutaneous pen RxNorm: 879946 25 Unit(s) Subcutaneous two times a day 03/19/2021 No Stop Date A ctive Aspirin Low Dose 81 mg tablet,delayed release RxNorm: 777188 1 Tablet(s) Oral every day 03/19/2021 No Stop Date Active Vitamin D3 125 mcg (5,000 unit) tablet RxNorm: 454924 1 Tablet(s) Oral every day 03/19/2021 No Stop Date Active tamsulosin 0.4 mg capsule RxNorm: 535445 1 Capsule(s) Oral every da y 03/19/2021 05/31/2021 Inactive clonidine HCl 0.3 mg tablet RxNorm: 262112 1 Tablet(s) Oral two times a day 03/19/2021 04/03/2021 Inactive isosorbide mononitrate ER 120 mg tablet,extended release 24 hr RxNorm: 126125 1 Tablet(s) Oral every day 03/19/2021 04/26/2021 Inactive omeprazole 40 mg capsule,delayed release RxNorm: 718181 1 Capsule(s) Oral every day 03/19/2021 04/23/2021 Inactive finasteride 5 mg tablet RxNorm: 336533 1 Tablet(s) Oral every day 0 03/19/2021 05/31/2021 Inactive carvedilol 25 mg tablet RxNorm: 728328 1 Tablet(s) Oral two drake es a day 03/19/2021 05/18/2021 Inactive amlodipine 2.5 mg tablet RxNorm: 577314 1 Tablet(s) Oral every day 03/19/2021 04/09/2021 Inactive PreserVision Lutein oral RxNorm: 535979 oral 03/19/2021 Active Medication Administered No Medication Administered data Immunizations Vaccine Codes Date Status Influenza CVX: 135 08/13/2021 Complete Covid-19 CVX: 207 01/26/2021 Covid-19 CVX: 207 12/29/2020 Pneumococcal (Adult) CVX: 33 08/03/2020 Results Observation Observation Code Item Item Code Result Date S ervice Location HEP C ANTIBODY WITH REFLEX TO VIRAL LOAD F411 Hepatitis C Ab Negative 09/06/2021 Unknown %Hba1C Jqj323 % HbA1c 96144-5 8.2 % 05/28/2021 Unknown %Hba1C Cmi602 Gluc Ave 189 mg/dL 05/28/2021 Unknown Comp Metabolic Wcj941 NA 142 mEq/L 05/28/2021 Unkn own Comp Metabolic Elp550 K 4.1 mEq/L 05/28/2021 Unkn own Comp Metabolic Fmc026 CL 104 mEq/L 05/28/2021 Unkn own Comp Metabolic Ifo385 CO2 29.0 mEq/L 05/28/2021 Unk nown Comp Metabolic Fuk995 ANION GAP 13 05/28/2021 Unkn own Comp Metabolic Eao999 GLUCOSE 169 mg/dL 05/28/2021 Unkn own Comp Metabolic Ews166 Creat 1.9 mg/dL 05/28/2021 Unkn own Comp Metabolic Emq401 eGFR 37 ml/min/1.73m2 05/28/20 21 Unknown Comp Metabolic Jew083 BUN 35 mg/dL 05/28/2021 Unkn own Comp Metabolic Dms855 B/C Ratio 18.7 Ratio 05/28/2021 Unk nown Comp Metabolic Rdy193 CALCIUM 8.7 mg/dL 05/28/2021 Unkn own Comp Metabolic Uxg009 ALK PHOS 70 U/L 05/28/2021 Unkn own Comp Metabolic Uqz057 AST(SGOT) 17 U/L 05/28/2021 Unkn own Comp Metabolic Oii631 ALT(SGPT) 14 U/L 05/28/2021 Unkn own Comp Metabolic Onk032 BILI T 0.5 mg/dL 05/28/2021 Unkn own Comp Metabolic Scp315 ALBUMIN 3.4 g/dL 05/28/2021 Unkn own Comp Metabolic Eoq590 TPRO 6.8 g/dL 05/28/2021 Unkn own Comp Metabolic Use156 GLOB 3.4 g/dL 05/28/2021 Unkn own Comp Metabolic Jag553 A/G Ratio 1.0 Ratio 05/28/2021 Unkn own Comp Metabolic Ypo918 Osmo 295 mOsmo 05/28/2021 Unkn own Cbc [...] IIV NO PRSV INCREASED AG IM CPT-4: 13570 08/13/2021 Vital Signs Date Vital 09/04/2021 Blood Pressure 1: 170/90 Code: 8480-6 BMI: 38.8 Code: 13081-0 Heart Rate 1: 95 bpm Height: 5'9" Code: 8302-2 SpO2: 95% Temperature: 3 5.9 (C) / 96.6 (F) Weight: 263 lbs Code: 92507-0 08/13/2021 Blood Pressure 1: 160/84 Code: 8480-6 BMI: 38.8 Code: 54608-5 Heart Rate 1: 96 bpm Height: 5'9" Code: 8302-2 Respiratory Rate: 16 bpm SpO2: 94% Temperature: 35.9 (C) / 96.7 (F) Weight: 263 lbs Code: 54796-0 07/23/2021 Blood Pressure 1: 136/84 Code: 8480-6 BMI: 39.6 Code: 71828-9 Heart Rate 1: 80 bpm Height: 5'9" Code: 8302-2 Respiratory Rate: 16 bpm SpO2: 96% Temperature: 36.2 (C) / 97.1 (F) Weight: 268 lbs Code: 55138-4 04/23/2021 Blood Pressure 1: 150/82 Code: 8480-6 Bl ood Pressure 1: 124/80 Code: 8480-6 BMI: 39.9 Code: 14829-3 Heart Rate 1: 81 bpm Height: 5'9" Code: 8302-2 Respiratory Rate: 16 bpm SpO2: 96% Temperature: 36.1 (C) / 96.9 (F) We ight: 270 lbs Code: 89404-8 03/19/2021 Blood Pressure 1: 134/72 Code: 8480-6 BMI: 40.5 Code: 06625-9 Heart Rate 1: 77 bpm Height: 5'9" Code: 8302-2 Respiratory Rate: 18 bpm SpO2: 96% Temperature: 36.7 (C) / 98.0 (F) Weight: 274 lbs 5 oz Code: 43400-2 Functional Status No Functional Status data Reason For Visit Reason For Visit Effective Dates Notes hypertension 09/04/2021 hypertension 08/13/2021 diabetes mellitus 07/23/2021 hypertension 04/23/2021 hypertension 03/19/2021 Encounters Encounter Performer Location Codes Date ([id number]) [id number] EST. 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 CPT-4: 69395 09/04/2021 ([id number]) 91751 EST. 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 CPT-4: 14059 08/13/2021 ([id number]) 32201 EST. PATIENT, LEVEL IV Diagnosis: Essential (primary) hypertension[ICD10: I10] Diagnosis: Chronic kidney disease, stage 3b[ICD10: N18.32] Anny Maddox MD, [facility] CPT-4: 38995 07/23/2021 ([id number]) 95412 EST. PATIENT, LEVEL IV Diagnosis: Essential (primary) [...] venous insufficiency[ICD10: I87.2] Anny Maddox MD, 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 Sheldon for management of kidney disease. [...] alternatives. 09/04/2021 [facility] [phone] [phone] [place] ([facility] min[facility] Complex 09/04/2021 Patient Education: Patient Medication Summary Completed 09/04/2021 [facility] [phone] [facility] [place] ([facility] min) Complex 09/03/2021 Visit Plan: [...] controlled. 08/13/2021 [facility] [phone] [facility] (15 min) Moderate 08/13/2021 Patient Education: [...] renal diet - will send referral to [facility] for education of patient. 07/23/2021 [facility] [phone] [facility] ([facility] min) Moderate 07/23/2021 Patient Education: Patient Medication Summary Completed 07/23/2021 Patient Education: Patient Medication Summary Completed 05/25/2021 Visit Plan: Gait imbalance - referral to [facility] for balance therapy Diabetes mellitus - chronic - pt insulin dependent, has not been managing his diabetes very well with dietary indescretion, pt has been referred to [facility]. Peripheral edema - with peripheral vascular disease [...] concerns. 04/23/2021 [facility] [phone] [phone] [place] (15 min) Moderate 04/23/2021 Patient Education: Patient Medication Summary Completed 04/23/2021 Visit Plan: Chronic renal failure - defe r to Nephrology. Pt has not been following a renal diet - will send referral to [facility] for education of patient. Diabetes mellitus - [...] clean out of his ears. referral to [facility] for swelling, renal disease and diabetes. 03/19/2021 [...] S REGIMEN NOT EFFECTIVE WE WILL CALL [facility] TO SEE WHAT ADDITIONAL SERVICES THEY CAN [...] need to continue to follow up with retail account specialist, Dr. Sheldon for management of kidney disease. [...] renal diet - will send referral to [facility] for education of patient. increase the losartan to 50mg twice lenora y . Gait imbalance - referral to [facility] therapy Diabetes mellitus - chronic - pt insulin dependent, has not been managing his diabetes very well with dietary indescretion, pt has been referred to [facility]. Peripheral edema - with peripheral vascular disease [...] renal diet - will send referral to [facility] for education of patient. Diabetes mellitus - [...] clean out of his ears. referral to [facility] for swelling, renal disease and diabetes. Medical Equipment No Medical Equipment data Health Concerns Section Health Concerns data not found Goals Section Goals data not found Interventions Section Interventions data not found Health Status Evaluations/Outcomes Section Health Status Evaluations/Outcomes data not found Advance Directives No Advance Directive data
--- OUTSIDE RECORDS SUMMARY | 2021-10-11 00:55 | XMS REPORT | CCD ---
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 [employer] 03/19/[address]: 149365757 Never smoker 03/19/[address]: 955382636 Never drinks alcohol 2020 Allergies, Adverse Reactions, [...] disease, stage 3b ICD-10: N18.32 03/19/2021 Active prison (current) use of insulin ICD-10: Z79.4 03/19/2021 Active Medications Medication Codes Instructions Start Date Stop Date Status Fill Instructions Linzess 145 mcg capsule RxNorm: 0616246 Take 1 Capsule(s) Oral e very day 09/10/2021 09/10/2021 Inactive Linzess 145 mcg capsule RxNorm: 8588560 Take 1 Capsule(s) Oral e very day 09/10/2021 10/09/2021 Active finasteride 5 mg tablet RxNorm: 890846 Take 1 Tablet(s) Oral ev harjinder day 09/10/2021 12/08/2021 Active hydralazine 25 mg tablet RxNorm: 594237 1 Tablet(s) Oral three times a day 08/31/2021 09/29/2021 Active tamsulosin 0.4 mg capsule RxNorm: 678466 Take 1 Capsule(s) Oral every day 08/29/2021 11/26/2021 Active ondansetron 4 mg disintegrating tablet RxNorm: 493827 1 Tablet(s) Oral four times a day 2021 2021 Inactive ondansetron 4 mg disintegrating tablet RxNorm: 750030 1 Tablet(s) Oral four times a day as needed 2021 08/26/2021 Inactive diclofenac 1 % topical gel RxNorm: 263028 Apply 4 Gram( s) Topical four times a day as needed for pain 08/13/2021 No Stop Date Active dispense 3 tubes - please deliver loratadine 10 mg tablet RxNorm: 149176 Take 1 Tablet(s) Oral ev harjinder day 08/13/2021 08/07/2022 Active please deliver for t he patient hydralazine 25 mg tablet RxNorm: 035586 1 Tablet(s) Oral three times a day 08/06/2021 08/31/2021 Inactive carvedilol 25 mg tablet RxNorm: 471344 Take 1 Tablet(s) Oral tw o times a day 08/03/2021 10/01/2021 Active omeprazole 40 mg capsule,delayed release RxNorm: 159370 Take 1 Capsule(s) Oral every day 07/23/2021 10/20/2021 Active hydralazine 10 mg tablet RxNorm: 604868 Take 1 Tablet(s ) Oral two times a day noon and HS 07/23/2021 08/05/2021 Inactive clonidine 0.3 mg/24 hr weekly transdermal patch RxNorm: 9986 79 Take 1 Patch Transdermal weekly 07/23/2021 07/31/2021 Inactive please delive r to pt's home - use good rx if more than 40$ with regular insurance cefdinir 300 mg capsule RxNorm: 493688 Take 1 Capsule(s) Oral t wo times a day 07/19/2021 07/25/2021 Inactive cefdinir 300 mg capsule RxNorm: 016687 Take 1 Capsule(s) Oral t wo times a day 07/19/2021 07/19/2021 Inactive hydralazine 10 mg tablet RxNorm: 947776 Take 1 Tablet(s ) Oral two times a day noon and HS 07/13/2021 07/13/2021 Inactive finasteride 5 mg tablet RxNorm: 257688 Take 1 Tablet(s) Oral ev harjinder day 05/31/2021 08/28/2021 Inactive tamsulosin 0.4 mg capsule RxNorm: 957602 Take 1 Capsule(s) Oral every day 05/31/2021 08/28/2021 Inactive carvedilol 25 mg tablet RxNorm: 713259 Take 1 Tablet(s) Oral tw o times a day 05/18/2021 07/16/2021 Inactive isosorbide mononitrate ER 60 mg tablet,extended release 24 h r RxNorm: 231102 2 Tablet(s) Oral every day 04/26/2021 04/20/2022 Active hydralazine 10 mg tablet RxNorm: 717266 Take 1 Tablet(s ) Oral every night at bedtime 04/26/2021 05/25/2021 Inactive hydralazine 10 mg tablet RxNorm: 041971 Take 1 Tablet(s ) Oral every night at bedtime 04/26/2021 04/26/2021 Inactive losartan 50 mg tablet RxNorm: 725563 Take 1 Tablet(s) Oral two times a day 04/23/2021 04/17/2022 Active dc amlodipine omeprazole 40 mg capsule,delayed release RxNorm: 837829 Take 1 Capsule(s) Oral every day 04/23/2021 07/21/2021 Inactive losartan 50 mg tablet RxNorm: 051022 1 Tablet(s) Oral every nig ht at bedtime 04/12/2021 04/22/2021 Inactive dc amlodipine losartan 50 mg tablet RxNorm: 720938 1 Tablet(s) Oral every nig ht at bedtime 04/12/2021 04/11/2021 Inactive clonidine HCl 0.3 mg tablet RxNorm: 323842 1 Tablet(s) Oral two times a day 04/04/2021 07/22/2021 Inactive Voltaren Arthritis Pain 1 % topical gel RxNorm: 808301 2 Gram(s) Topical four times a day as needed may increase to 4 grams if needed 03/29/202103/04 Inactive Voltaren Arthritis Pain 1 % topical gel RxNorm: 363095 2 Gram(s) Topical four times a day as needed may increase to 4 grams if needed to affected area of pain 03/29/2021 07/26/2021 Inactive Colace 100 mg capsule RxNorm: 9332660 2 Capsule(s) Oral every day 0 03/19/2021 No Stop Date Active Novolog Flexpen U-100 Insulin aspart 100 unit/mL (3 mL ) subcutaneous RxNorm: 8925908 6-7 Unit(s) Subcutaneous before meals 03/19/2021 No Stop Date Act josh Tradjenta 5 mg tablet RxNorm: 3031282 1 Tablet(s) Oral every day No Stop Date Active furosemide 40 mg tablet RxNorm: 118755 1 Tablet(s) Oral every day 0 03/19/2021 No Stop Date Active Levemir FlexTouch U-100 Insulin 100 unit/mL (3 mL) sub cutaneous pen RxNorm: 638822 25 Unit(s) Subcutaneous two times a day 03/19/2021 No Stop Date A ctive Aspirin Low Dose 81 mg tablet,delayed release RxNorm: 432751 1 Tablet(s) Oral every day 03/19/2021 No Stop Date Active Vitamin D3 125 mcg (5,000 unit) tablet RxNorm: 237454 1 Tablet(s) Oral every day 03/19/2021 No Stop Date Active tamsulosin 0.4 mg capsule RxNorm: 354659 1 Capsule(s) Oral every da y 03/19/2021 05/31/2021 Inactive clonidine HCl 0.3 mg tablet RxNorm: 190336 1 Tablet(s) Oral two times a day 03/19/2021 04/03/2021 Inactive isosorbide mononitrate ER 120 mg tablet,extended release 24 hr RxNorm: 253519 1 Tablet(s) Oral every day 03/19/2021 04/26/2021 Inactive omeprazole 40 mg capsule,delayed release RxNorm: 393619 1 Capsule(s) Oral every day 03/19/2021 04/23/2021 Inactive finasteride 5 mg tablet RxNorm: 259740 1 Tablet(s) Oral every day 0 03/19/2021 05/31/2021 Inactive carvedilol 25 mg tablet RxNorm: 138521 1 Tablet(s) Oral two drake es a day 03/19/2021 05/18/2021 Inactive amlodipine 2.5 mg tablet RxNorm: 078020 1 Tablet(s) Oral every day 03/19/2021 04/09/2021 Inactive PreserVision Lutein oral RxNorm: 641766 oral 03/19/2021 Active Medication Administered No Medication Administered data Immunizations Vaccine Codes Date Status Influenza CVX: 135 08/13/2021 Complete Covid-19 CVX: 207 01/26/2021 Covid-19 CVX: 207 12/29/2020 Pneumococcal (Adult) CVX: 33 08/03/2020 Results Observation Observation Code Item Item Code Result Date [facility] HEP C ANTIBODY WITH REFLEX TO VIRAL LOAD F411 Hepatitis C Ab Negative 09/06/2021 Unknown %Hba1C Ebk702 % HbA1c 40483-0 8.2 % 05/28/2021 Unknown %Hba1C Wsm777 Gluc Ave 189 mg/dL 05/28/2021 Unknown Comp Metabolic Iql174 NA 142 mEq/L 05/28/2021 Unkn own Comp Metabolic Gga414 K 4.1 mEq/L 05/28/2021 Unkn own Comp Metabolic Kwk427 CL 104 mEq/L 05/28/2021 Unkn own Comp Metabolic Zeo929 CO2 29.0 mEq/L 05/28/2021 Unk nown Comp Metabolic Eko083 ANION GAP 13 05/28/2021 Unkn own Comp Metabolic Mcr456 GLUCOSE 169 mg/dL 05/28/2021 Unkn own Comp Metabolic Dqg409 Creat 1.9 mg/dL 05/28/2021 Unkn own Comp Metabolic Gnl224 eGFR 37 ml/min/1.73m2 05/28/20 21 Unknown Comp Metabolic Ylk116 BUN 35 mg/dL 05/28/2021 Unkn own Comp Metabolic Cpp280 B/C Ratio 18.7 Ratio 05/28/2021 Unk nown Comp Metabolic Tqc816 CALCIUM 8.7 mg/dL 05/28/2021 Unkn own Comp Metabolic Akk167 ALK PHOS 70 U/L 05/28/2021 Unkn own Comp Metabolic Anl537 AST(SGOT) 17 U/L 05/28/2021 Unkn own Comp Metabolic Hua677 ALT(SGPT) 14 U/L 05/28/2021 Unkn own Comp Metabolic Ygf200 BILI T 0.5 mg/dL 05/28/2021 Unkn own Comp Metabolic Gqt694 ALBUMIN 3.4 g/dL 05/28/2021 Unkn own Comp Metabolic Txs369 TPRO 6.8 g/dL 05/28/2021 Unkn own Comp Metabolic Bgm459 GLOB 3.4 g/dL 05/28/2021 Unkn own Comp Metabolic Zlo717 A/G Ratio 1.0 Ratio 05/28/2021 Unkn own Comp Metabolic Gbt467 Osmo 295 mOsmo 05/28/2021 Unkn own Cbc [...] 05/28/20 21 Unknown Cbc With Differential Ord2 [place]% 12.7 % 05/28/20 21 Unknown Cbc With [...] K/ul 021 Unknown Cbc With Differential Ord2 [place] ABS# 1.2 K/ul 05/28/20 21 Unknown Cbc With Differential Ord2 Eos ABS# 0.3 K/ul 05/28/20 21 Unknown Cbc With Differential Ord2 Baso ABS# 0.0 K/ul 05/28/20 21 Unknown Procedures Procedure Codes Date ADMIN INFLUENZA VIRUS VAC CPT-4: G0008 08/13/2021 IIV NO PRSV INCREASED AG IM CPT-4: 20647 08/13/2021 Vital Signs Date Vital 09/04/2021 Blood Pressure 1: 170/90 Code: 8480-6 BMI: 38.8 Code: 70521-6 Heart Rate 1: 95 bpm Height: 5'9" Code: 8302-2 SpO2: 95% Temperature: 3 5.9 (C) / 96.6 (F) Weight: 263 lbs Code: 47908-0 08/13/2021 Blood Pressure 1: 160/84 Code: 8480-6 BMI: 38.8 Code: 02715-4 Heart Rate 1: 96 bpm Height: 5'9" Code: 8302-2 Respiratory Rate: 16 bpm SpO2: 94% Temperature: 35.9 (C) / 96.7 (F) Weight: 263 lbs Code: 07771-0 07/23/2021 Blood Pressure 1: 136/84 Code: 8480-6 BMI: 39.6 Code: 41151-3 Heart Rate 1: 80 bpm Height: 5'9" Code: 8302-2 Respiratory Rate: 16 bpm SpO2: 96% Temperature: 36.2 (C) / 97.1 (F) Weight: 268 lbs Code: 96853-7 04/23/2021 Blood Pressure 1: 150/82 Code: 8480-6 Bl ood Pressure 1: 124/80 Code: 8480-6 BMI: 39.9 Code: 74001-3 Heart Rate 1: 81 bpm Height: 5'9" Code: 8302-2 Respiratory Rate: 16 bpm SpO2: 96% Temperature: 36.1 (C) / 96.9 (F) We ight: 270 lbs Code: 69690-7 03/19/2021 Blood Pressure 1: 134/72 Code: 8480-6 BMI: 40.5 Code: 72896-2 Heart Rate 1: 77 bpm Height: 5'9" Code: 8302-2 Respiratory Rate: 18 bpm SpO2: 96% Temperature: 36.7 (C) / 98.0 (F) Weight: 274 lbs 5 oz Code: 33198-0 Functional Status No Functional Status data Reason For Visit Reason For Visit Effective Dates Notes hypertension 09/04/2021 hypertension 08/13/2021 diabetes mellitus 07/23/2021 hypertension 04/23/2021 hypertension 03/19/2021 Encounters Encounter Performer Location Codes Date ([id number]) [id number] EST. 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 PATIENT, LEVEL IV Diagnosis: Essential (primary) hypertension[ICD10: I10] Diagnosis: Chronic kidney disease, stage 3b[ICD10: N18.32] [facility] CPT-4: 51646 07/23/2021 ([id number]) 31656 EST. 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 Sheldon for management of kidney disease. [...] alternatives. 09/04/2021 [id number] ([facility] Complex 09/04/2021 Patient Education: Patient Medication Summary Completed 09/04/2021 [phone] [id number] ([facility] min) Complex 09/03/2021 Visit Plan: [...] less controlled. 08/13/2021 [id number] (15 min) Moderate 08/13/2021 Patient Education: [...] renal diet - will send referral to adjusto writer operator for education of patient. 07/23/2021 [facility] [phone] [id number] [place] (15 min) Moderate 07/23/2021 Patient Education: Patient Medication Summary Completed 07/23/2021 Patient Education: Patient Medication Summary Completed 05/25/2021 Visit Plan: Gait imbalance - referral to [facility] for balance therapy Diabetes mellitus - chronic - pt insulin dependent, has not been managing his diabetes very well with dietary indescretion, pt has been referred to adjusto writer operator. Peripheral edema - with peripheral vascular [...] concerns. 04/23/2021 [phone] [id number] [place] (15 min) Moderate 04/23/2021 Patient Education: Patient Medication Summary Completed 04/23/2021 Visit Plan: Chronic renal failure - defe r to Nephrology. Pt has not been following a renal diet - will send referral to adjusto writer operator for education of patient. Diabetes mellitus [...] clean out of his ears. referral to adjusto writer operator for swelling, renal disease and diabetes. [...] S REGIMEN NOT EFFECTIVE WE WILL CALL [facility] TO SEE WHAT [...] need to continue to follow up with plant production worker, Dr. Sheldon for management of kidney disease. [...] renal diet - will send referral to adjusto writer operator for education of patient. increase the losartan to 50mg twice lenora y . Gait imbalance - referral to [facility] for balance therapy Diabetes mellitus - chronic - pt insulin dependent, has not been managing his diabetes very well with dietary indescretion, pt has been referred to adjusto writer operator. Peripheral edema - with peripheral vascular [...] renal diet - will send referral to adjusto writer operator for education of patient. Diabetes mellitus [...] clean out of his ears. referral to adjusto writer operator for swelling, renal disease and diabetes. Medical Equipment No Medical Equipment data Health Concerns Section Health Concerns data not found Goals Section Goals data not found Interventions Section Interventions data not found Health Status Evaluations/Outcomes Section Health Status Evaluations/Outcomes data not found Advance Directives No Advance Directive data
--- OUTSIDE RECORDS SUMMARY | 2021-10-11 00:55 | XMS REPORT | CCD ---
Author Author Artie Maddox Organization Anny Maddox MD, [facility] Address [address] [place] [address] Phone Care Team Providers Care Departmental Shipping Clerk Name Role Phone Anny Maddox PP Unavailable CCM Unavailable Summary Purpose Interface Exchange Insurance Providers Payer name Policy type / Coverage type Covered republican ID Effective Begin Date Effective End Date [employer] Medicare Solutions Medicare Part B [id number] Un known Unknown Family history Father Diagnosis [...] of children Unknown 3 two sons live [facility] and 1 dtr lives in [facility] 03/19/2021 Employment Unknown 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 [employer] 03/19/[address]: 033274884 Never smoker 03/19/[address]: 221984246 Never drinks alcohol 2020 Allergies, Adverse Reactions, [...] disease, stage 3b ICD-10: N18.32 03/19/2021 Active shelter (current) use of insulin ICD-10: Z79.4 03/19/2021 Active Medications Medication Codes Instructions Start Date Stop Date Status Fill Instructions hydralazine 25 mg tablet RxNorm: 285157 1 Tablet(s) Oral three times a day 08/31/2021 09/29/2021 Active tamsulosin 0.4 mg capsule RxNorm: 390720 Take 1 Capsule(s) Oral every day 08/29/2021 11/26/2021 Active ondansetron 4 mg disintegrating tablet RxNorm: 368460 1 Tablet(s) Oral four times a day 2021 2021 Inactive ondansetron 4 mg disintegrating tablet RxNorm: 484935 1 Tablet(s) Oral four times a day as needed 2021 08/26/2021 Inactive diclofenac 1 % topical gel RxNorm: 548874 Apply 4 Gram( s) Topical four times a day as needed for pain 08/13/2021 No Stop Date Active dispense 3 tubes - please deliver loratadine 10 mg tablet RxNorm: 857268 Take 1 Tablet(s) Oral ev day 08/13/2021 08/07/2022 Active please deliver for t he patient hydralazine 25 mg tablet RxNorm: 196095 1 Tablet(s) Oral three times a day 08/06/2021 08/31/2021 Inactive carvedilol 25 mg tablet RxNorm: 245200 Take 1 Tablet(s) Oral tw o times a day 08/03/2021 10/01/2021 Active omeprazole 40 mg capsule,delayed release RxNorm: 114467 Take 1 Capsule(s) Oral every day 07/23/2021 10/20/2021 Active hydralazine 10 mg tablet RxNorm: 024449 Take 1 Tablet(s ) Oral two times a day noon and HS 07/23/2021 08/05/2021 Inactive clonidine 0.3 mg/24 hr weekly transdermal patch RxNorm: 9986 79 Take 1 Patch Transdermal weekly 07/23/2021 07/31/2021 Inactive please delive r to pt's home - use good rx if more than 40$ with regular insurance cefdinir 300 mg capsule RxNorm: 889877 Take 1 Capsule(s) Oral t wo times a day 07/19/2021 07/25/2021 Inactive cefdinir 300 mg capsule RxNorm: 555259 Take 1 Capsule(s) Oral t wo times a day 07/19/2021 07/19/2021 Inactive hydralazine 10 mg tablet RxNorm: 063742 Take 1 Tablet(s ) Oral two times a day noon and HS 07/13/2021 07/13/2021 Inactive finasteride 5 mg tablet RxNorm: 778515 Take 1 Tablet(s) Oral ev harjinder day 05/31/2021 08/28/2021 Inactive tamsulosin 0.4 mg capsule RxNorm: 224559 Take 1 Capsule(s) Oral every day 05/31/2021 08/28/2021 Inactive carvedilol 25 mg tablet RxNorm: 660226 Take 1 Tablet(s) Oral tw o times a day 05/18/2021 07/16/2021 Inactive isosorbide mononitrate ER 60 mg tablet,extended release 24 h r RxNorm: 550049 2 Tablet(s) Oral every day 04/26/2021 04/20/2022 Active hydralazine 10 mg tablet RxNorm: 941325 Take 1 Tablet(s ) Oral every night at bedtime 04/26/2021 05/25/2021 Inactive hydralazine 10 mg tablet RxNorm: 386657 Take 1 Tablet(s ) Oral every night at bedtime 04/26/2021 04/26/2021 Inactive losartan 50 mg tablet RxNorm: 178182 Take 1 Tablet(s) Oral two times a day 04/23/2021 04/17/2022 Active dc amlodipine omeprazole 40 mg capsule,delayed release RxNorm: 496673 Take 1 Capsule(s) Oral every day 04/23/2021 07/21/2021 Inactive losartan 50 mg tablet RxNorm: 967546 1 Tablet(s) Oral every nig ht at bedtime 04/12/2021 04/22/2021 Inactive dc amlodipine losartan 50 mg tablet RxNorm: 443832 1 Tablet(s) Oral every nig ht at bedtime 04/12/2021 04/11/2021 Inactive clonidine HCl 0.3 mg tablet RxNorm: 015780 1 Tablet(s) Oral two times a day 04/04/2021 07/22/2021 Inactive Voltaren Arthritis Pain 1 % topical gel RxNorm: 952191 2 Gram(s) Topical four times a day as needed may increase to 4 grams if needed 03/29/202103/04 Inactive Voltaren Arthritis Pain 1 % topical gel RxNorm: 841031 2 Gram(s) Topical four times a day as needed may increase to 4 grams if needed to affected area of pain 03/29/2021 07/26/2021 Inactive Colace 100 mg capsule RxNorm: 7304369 2 Capsule(s) Oral every day 0 03/19/2021 No Stop Date Active Novolog Flexpen U-100 Insulin aspart 100 unit/mL (3 mL ) subcutaneous RxNorm: 7404569 6-7 Unit(s) Subcutaneous before meals 03/19/2021 No Stop Date Act josh Tradjenta 5 mg tablet RxNorm: 0492258 1 Tablet(s) Oral every day No Stop Date Active furosemide 40 mg tablet RxNorm: 588137 1 Tablet(s) Oral every day 0 03/19/2021 No Stop Date Active Levemir FlexTouch U-100 Insulin 100 unit/mL (3 mL) sub cutaneous pen RxNorm: 833717 25 Unit(s) Subcutaneous two times a day 03/19/2021 No Stop Date A ctive Aspirin Low Dose 81 mg tablet,delayed release RxNorm: 493356 1 Tablet(s) Oral every day 03/19/2021 No Stop Date Active Vitamin D3 125 mcg (5,000 unit) tablet RxNorm: 867110 1 Tablet(s) Oral every day 03/19/2021 No Stop Date Active tamsulosin 0.4 mg capsule RxNorm: 812019 1 Capsule(s) Oral every da y 03/19/2021 05/31/2021 Inactive clonidine HCl 0.3 mg tablet RxNorm: 092192 1 Tablet(s) Oral two times a day 03/19/2021 04/03/2021 Inactive isosorbide mononitrate ER 120 mg tablet,extended release 24 hr RxNorm: 164030 1 Tablet(s) Oral every day 03/19/2021 04/26/2021 Inactive omeprazole 40 mg capsule,delayed release RxNorm: 367626 1 Capsule(s) Oral every day 03/19/2021 04/23/2021 Inactive finasteride 5 mg tablet RxNorm: 660810 1 Tablet(s) Oral every day 0 03/19/2021 05/31/2021 Inactive carvedilol 25 mg tablet RxNorm: 909113 1 Tablet(s) Oral two drake es a day 03/19/2021 05/18/2021 Inactive amlodipine 2.5 mg tablet RxNorm: 697227 1 Tablet(s) Oral every day 03/19/2021 04/09/2021 Inactive PreserVision Lutein oral RxNorm: 852006 oral 03/19/2021 Active Medication Administered No Medication Administered data Immunizations Vaccine Codes Date Status Influenza CVX: 135 08/13/2021 Complete Covid-19 CVX: 207 01/26/2021 Covid-19 CVX: 207 12/29/2020 Pneumococcal (Adult) CVX: 33 08/03/2020 Results Observation Observation Code Item Item Code Result Date S ervice Location HEP C ANTIBODY WITH REFLEX TO VIRAL LOAD F411 Hepatitis C Ab Negative 09/06/2021 Unknown %Hba1C Uno189 % HbA1c 27331-3 8.2 % 05/28/2021 Unknown %Hba1C Yid464 Gluc Ave 189 mg/dL 05/28/2021 Unknown Comp Metabolic Fnb937 NA 142 mEq/L 05/28/2021 Unkn own Comp Metabolic Upa246 K 4.1 mEq/L 05/28/2021 Unkn own Comp Metabolic Utj782 CL 104 mEq/L 05/28/2021 Unkn own Comp Metabolic Tbc291 CO2 29.0 mEq/L 05/28/2021 Unk nown Comp Metabolic Kwj306 ANION GAP 13 05/28/2021 Unkn own Comp Metabolic Toy894 GLUCOSE 169 mg/dL 05/28/2021 Unkn own Comp Metabolic Zus543 Creat 1.9 mg/dL 05/28/2021 Unkn own Comp Metabolic Suy817 eGFR 37 ml/min/1.73m2 05/28/20 21 Unknown Comp Metabolic Ycp384 BUN 35 mg/dL 05/28/2021 Unkn own Comp Metabolic Llw071 B/C Ratio 18.7 Ratio 05/28/2021 Unk nown Comp Metabolic Qpr381 CALCIUM 8.7 mg/dL 05/28/2021 Unkn own Comp Metabolic Pxq276 ALK PHOS 70 U/L 05/28/2021 Unkn own Comp Metabolic Wdp895 AST(SGOT) 17 U/L 05/28/2021 Unkn own Comp Metabolic Mqr708 ALT(SGPT) 14 U/L 05/28/2021 Unkn own Comp Metabolic Quv760 BILI T 0.5 mg/dL 05/28/2021 Unkn own Comp Metabolic Vbx733 ALBUMIN 3.4 g/dL 05/28/2021 Unkn own Comp Metabolic Ymw913 TPRO 6.8 g/dL 05/28/2021 Unkn own Comp Metabolic Gpv504 GLOB 3.4 g/dL 05/28/2021 Unkn own Comp Metabolic Hfr607 A/G Ratio 1.0 Ratio 05/28/2021 Unkn own Comp Metabolic Sau278 Osmo 295 mOsmo 05/28/2021 Unkn own Cbc [...] 05/28/20 21 Unknown Cbc With Differential Ord2 [place]% 12.7 % 05/28/20 21 Unknown Cbc With [...] K/ul 021 Unknown Cbc With Differential Ord2 [place] ABS# 1.2 K/ul 05/28/20 21 Unknown Cbc With Differential Ord2 Eos ABS# 0.3 K/ul 05/28/20 21 Unknown Cbc With Differential Ord2 Baso ABS# 0.0 K/ul 05/28/20 21 Unknown Procedures Procedure Codes Date ADMIN INFLUENZA VIRUS VAC CPT-4: G0008 08/13/2021 IIV NO PRSV INCREASED AG IM CPT-4: 52103 08/13/2021 Vital Signs Date Vital 09/04/2021 Blood Pressure 1: 170/90 Code: 8480-6 BMI: 38.8 Code: 32039-7 Heart Rate 1: 95 bpm Height: 5'9" Code: 8302-2 SpO2: 95% Temperature: 3 5.9 (C) / 96.6 (F) Weight: 263 lbs Code: 57952-8 08/13/2021 Blood Pressure 1: 160/84 Code: 8480-6 BMI: 38.8 Code: 53532-4 Heart Rate 1: 96 bpm Height: 5'9" Code: 8302-2 Respiratory Rate: 16 bpm SpO2: 94% Temperature: 35.9 (C) / 96.7 (F) Weight: 263 lbs Code: 08773-4 07/23/2021 Blood Pressure 1: 136/84 Code: 8480-6 BMI: 39.6 Code: 68391-5 Heart Rate 1: 80 bpm Height: 5'9" Code: 8302-2 Respiratory Rate: 16 bpm SpO2: 96% Temperature: 36.2 (C) / 97.1 (F) Weight: 268 lbs Code: 38064-5 04/23/2021 Blood Pressure 1: 150/82 Code: 8480-6 Bl ood Pressure 1: 124/80 Code: 8480-6 BMI: 39.9 Code: 79228-5 Heart Rate 1: 81 bpm Height: 5'9" Code: 8302-2 Respiratory Rate: 16 bpm SpO2: 96% Temperature: 36.1 (C) / 96.9 (F) We ight: 270 lbs Code: 87144-5 03/19/2021 Blood Pressure 1: 134/72 Code: 8480-6 BMI: 40.5 Code: 40263-1 Heart Rate 1: 77 bpm Height: 5'9" Code: 8302-2 Respiratory Rate: 18 bpm SpO2: 96% Temperature: 36.7 (C) / 98.0 (F) Weight: 274 lbs 5 oz Code: 22364-0 Functional Status No Functional Status data Reason [...] antibody test positive[ICD10: R76.8] Rosi Maddox MD, [facility] CPT-4: 06331 09/04/2021 ([id number]) 65664 EST. 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 PATIENT, LEVEL IV Diagnosis: Essential (primary) hypertension[ICD10: I10] Diagnosis: Chronic kidney disease, stage 3b[ICD10: N18.32] [facility] CPT-4: 18846 07/23/2021 ([id number] EST. 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 Sheldon for management of kidney disease. [...] for alternatives. 09/04/2021 Appointment: Rosi Phelan WPtel: [phone] [facility] (30 min) Complex 09/04/2021 Patient Education: Patient Medication Summary Completed 09/04/2021 Appointment: Rosi Phelan WPtel: [facility] [place] (30 min) Complex 09/03/2021 Visit Plan: [...] controlled. 08/13/2021 [phone] [facility] [place] (15 min) Moderate 08/13/2021 Patient Education: [...] renal diet - will send referral to center manager for education of patient. 07/23/2021 Appointment: [facility] [phone] [facility] (15 min) Moderate 07/23/2021 Patient Education: Patient Medication Summary Completed 07/23/2021 Patient Education: Patient Medication Summary Completed 05/25/2021 Visit Plan: Gait imbalance - referral to via [facility] for balance therapy Diabetes mellitus - chronic - pt insulin dependent, has not been managing his diabetes very well with dietary indescretion, pt has been referred to center manager. Peripheral edema - with peripheral vascular disease [...] acute concerns. 04/23/2021 Appointment: [facility] Madd[facility] [phone] [facility] [place] (15 min) Moderate 04/23/2021 Patient Education: Patient Medication Summary Completed 04/23/2021 Visit Plan: Chronic renal failure - defe r to Nephrology. Pt has not been following a renal diet - will send referral to center manager for education of patient. Diabetes mellitus - [...] clean out of his ears. referral to center manager for swelling, renal disease and diabetes. 03/19/2021 [...] S REGIMEN NOT EFFECTIVE WE WILL CALL [facility] TO SEE WHAT ADDITIONAL SERVICES THEY [...] need to continue to follow up with chimney construction supervisor, Dr. Sheldon for management of kidney disease. [...] renal diet - will send referral to center manager for education of patient. increase the losartan to 50mg twice lenora y . Gait imbalance - referral to [facility] for balance therapy Diabetes mellitus - chronic - pt insulin dependent, has not been managing his diabetes very well with dietary indescretion, pt has been referred to center manager. Peripheral edema - with peripheral vascular disease [...] renal diet - will send referral to center manager for education of patient. Diabetes mellitus - [...] clean out of his ears. referral to center manager for swelling, renal disease and diabetes. Medical Equipment No Medical Equipment data Health Concerns Section Health Concerns data not found Goals Section Goals data not found Interventions Section Interventions data not found Health Status Evaluations/Outcomes Section Health Status Evaluations/Outcomes data not found Advance Directives No Advance Directive data
--- OUTSIDE RECORDS SUMMARY | 2021-10-11 00:55 | XMS REPORT | CCD ---
Author Author Artie Maddox Organization Anny Maddox MD, [facility] Address [address] [place] [address] Phone Care Team Providers Care Lower In Supervisor Name Role Phone Anny Maddox PP Unavailable CCM Unavailable Summary Purpose Interface Exchange Insurance Providers Payer name Policy type / Coverage type Covered democrat ID Effective Begin Date Effective End Date [employer] Medicare Part B [id number] Un known Unknown Family history Father Diagnosis [...] of children Unknown 3 two sons live [facility] and 1 dtr lives in [facility] 03/19/2021 Employment Unknown 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 [employer] 03/19/[address]: [id number] Never smoker 03/19/[address]: 599680795 Never drinks alcohol 2020 Allergies, Adverse Reactions, [...] Fill Instructions hydralazine 25 mg tablet RxNorm: 555847 1 Tablet(s) Oral three times a day 08/31/2021 09/29/2021 Active tamsulosin 0.4 mg capsule RxNorm: 152516 Take 1 Capsule(s) Oral every day 08/29/2021 11/26/2021 Active ondansetron 4 mg disintegrating tablet RxNorm: 280554 1 Tablet(s) Oral four times a day 2021 2021 Inactive ondansetron 4 mg disintegrating tablet RxNorm: 269646 1 Tablet(s) Oral four times a day as needed 2021 08/26/2021 Inactive diclofenac 1 % topical gel RxNorm: 374000 Apply 4 Gram( s) Topical four times a day as needed for pain 08/13/2021 No Stop Date Active dispense 3 tubes - please deliver loratadine 10 mg tablet RxNorm: 414641 Take 1 Tablet(s) Oral ev day 08/13/2021 08/07/2022 Active please deliver for t he patient hydralazine 25 mg tablet RxNorm: 077389 1 Tablet(s) Oral three times a day 08/06/2021 08/31/2021 Inactive carvedilol 25 mg tablet RxNorm: 514648 Take 1 Tablet(s) Oral tw o times a day 08/03/2021 10/01/2021 Active omeprazole 40 mg capsule,delayed release RxNorm: 479406 Take 1 Capsule(s) Oral every day 07/23/2021 10/20/2021 Active hydralazine 10 mg tablet RxNorm: 011719 Take 1 Tablet(s ) Oral two times a day noon and HS 07/23/2021 08/05/2021 Inactive clonidine 0.3 mg/24 hr weekly transdermal patch RxNorm: 9986 79 Take 1 Patch Transdermal weekly 07/23/2021 07/31/2021 Inactive please delive r to pt's home - use good rx if more than 40$ with regular insurance cefdinir 300 mg capsule RxNorm: 890827 Take 1 Capsule(s) Oral t wo times a day 07/19/2021 07/25/2021 Inactive cefdinir 300 mg capsule RxNorm: 297197 Take 1 Capsule(s) Oral t wo times a day 07/19/2021 07/19/2021 Inactive hydralazine 10 mg tablet RxNorm: 679136 Take 1 Tablet(s ) Oral two times a day noon and HS 07/13/2021 07/13/2021 Inactive finasteride 5 mg tablet RxNorm: 637167 Take 1 Tablet(s) Oral ev harjinder day 05/31/2021 08/28/2021 Inactive tamsulosin 0.4 mg capsule RxNorm: 815242 Take 1 Capsule(s) Oral every day 05/31/2021 08/28/2021 Inactive carvedilol 25 mg tablet RxNorm: 323125 Take 1 Tablet(s) Oral tw o times a day 05/18/2021 07/16/2021 Inactive isosorbide mononitrate ER 60 mg tablet,extended release 24 h r RxNorm: 718974 2 Tablet(s) Oral every day 04/26/2021 04/20/2022 Active hydralazine 10 mg tablet RxNorm: 645432 Take 1 Tablet(s ) Oral every night at bedtime 04/26/2021 05/25/2021 Inactive hydralazine 10 mg tablet RxNorm: 695063 Take 1 Tablet(s ) Oral every night at bedtime 04/26/2021 04/26/2021 Inactive losartan 50 mg tablet RxNorm: 176888 Take 1 Tablet(s) Oral two times a day 04/23/2021 04/17/2022 Active dc amlodipine omeprazole 40 mg capsule,delayed release RxNorm: 523458 Take 1 Capsule(s) Oral every day 04/23/2021 07/21/2021 Inactive losartan 50 mg tablet RxNorm: 932078 1 Tablet(s) Oral every nig ht at bedtime 04/12/2021 04/22/2021 Inactive dc amlodipine losartan 50 mg tablet RxNorm: 593866 1 Tablet(s) Oral every nig ht at bedtime 04/12/2021 04/11/2021 Inactive clonidine HCl 0.3 mg tablet RxNorm: 891159 1 Tablet(s) Oral two times a day 04/04/2021 07/22/2021 Inactive Voltaren Arthritis Pain 1 % topical gel RxNorm: 424646 2 Gram(s) Topical four times a day as needed may increase to 4 grams if needed 03/29/202103/04 Inactive Voltaren Arthritis Pain 1 % topical gel RxNorm: 876359 2 Gram(s) Topical four times a day as needed may increase to 4 grams if needed to affected area of pain 03/29/2021 07/26/2021 Inactive Colace 100 mg capsule RxNorm: 8361141 2 Capsule(s) Oral every day 0 03/19/2021 No Stop Date Active Novolog Flexpen U-100 Insulin aspart 100 unit/mL (3 mL ) subcutaneous RxNorm: 7677550 6-7 Unit(s) Subcutaneous before meals 03/19/2021 No Stop Date Act josh Tradjenta 5 mg tablet RxNorm: 6089288 1 Tablet(s) Oral every day No Stop Date Active furosemide 40 mg tablet RxNorm: 662611 1 Tablet(s) Oral every day 0 03/19/2021 No Stop Date Active Levemir FlexTouch U-100 Insulin 100 unit/mL (3 mL) sub cutaneous pen RxNorm: 639630 25 Unit(s) Subcutaneous two times a day 03/19/2021 No Stop Date A ctive Aspirin Low Dose 81 mg tablet,delayed release RxNorm: 827408 1 Tablet(s) Oral every day 03/19/2021 No Stop Date Active Vitamin D3 125 mcg (5,000 unit) tablet RxNorm: 109954 1 Tablet(s) Oral every day 03/19/2021 No Stop Date Active tamsulosin 0.4 mg capsule RxNorm: 711051 1 Capsule(s) Oral every da y 03/19/2021 05/31/2021 Inactive clonidine HCl 0.3 mg tablet RxNorm: 880278 1 Tablet(s) Oral two times a day 03/19/2021 04/03/2021 Inactive isosorbide mononitrate ER 120 mg tablet,extended release 24 hr RxNorm: 549205 1 Tablet(s) Oral every day 03/19/2021 04/26/2021 Inactive omeprazole 40 mg capsule,delayed release RxNorm: 360680 1 Capsule(s) Oral every day 03/19/2021 04/23/2021 Inactive finasteride 5 mg tablet RxNorm: 214230 1 Tablet(s) Oral every day 0 03/19/2021 05/31/2021 Inactive carvedilol 25 mg tablet RxNorm: 383046 1 Tablet(s) Oral two drake es a day 03/19/2021 05/18/2021 Inactive amlodipine 2.5 mg tablet RxNorm: 927831 1 Tablet(s) Oral every day 03/19/2021 04/09/2021 Inactive PreserVision Lutein oral RxNorm: 046316 oral 03/19/2021 Active Medication Administered No Medication Administered data Immunizations Vaccine Codes Date Status Influenza CVX: 135 08/13/2021 Complete Covid-19 CVX: 207 01/26/2021 Covid-19 CVX: 207 12/29/2020 Pneumococcal (Adult) CVX: 33 08/03/2020 Results Observation Observation Code Item Item Code Result Date S ervice Location %Hba1C Mct612 % HbA1c 12590-8 8.2 % 05/28/2021 Unknown %Hba1C Dde438 Gluc Ave 189 mg/dL 05/28/2021 Unknown Comp Metabolic Hvv537 NA 142 mEq/L 05/28/2021 Unkn own Comp Metabolic Puu013 K 4.1 mEq/L 05/28/2021 Unkn own Comp Metabolic Kwa347 CL 104 mEq/L 05/28/2021 Unkn own Comp Metabolic Fpb162 CO2 29.0 mEq/L 05/28/2021 Unk nown Comp Metabolic Gco600 ANION GAP 13 05/28/2021 Unkn own Comp Metabolic Ukj786 GLUCOSE 169 mg/dL 05/28/2021 Unkn own Comp Metabolic Qee416 Creat 1.9 mg/dL 05/28/2021 Unkn own Comp Metabolic Lyq175 eGFR 37 ml/min/1.73m2 05/28/20 21 Unknown Comp Metabolic Vpd609 BUN 35 mg/dL 05/28/2021 Unkn own Comp Metabolic Irc968 B/C Ratio 18.7 Ratio 05/28/2021 Unk nown Comp Metabolic Ggy802 CALCIUM 8.7 mg/dL 05/28/2021 Unkn own Comp Metabolic Vlb415 ALK PHOS 70 U/L 05/28/2021 Unkn own Comp Metabolic Nex515 AST(SGOT) 17 U/L 05/28/2021 Unkn own Comp Metabolic Ouh213 ALT(SGPT) 14 U/L 05/28/2021 Unkn own Comp Metabolic Ofd367 BILI T 0.5 mg/dL 05/28/2021 Unkn own Comp Metabolic Tgt649 ALBUMIN 3.4 g/dL 05/28/2021 Unkn own Comp Metabolic Ipb863 TPRO 6.8 g/dL 05/28/2021 Unkn own Comp Metabolic Eyg717 GLOB 3.4 g/dL 05/28/2021 Unkn own Comp Metabolic Hot384 A/G Ratio 1.0 Ratio 05/28/2021 Unkn own Comp Metabolic You902 Osmo 295 mOsmo 05/28/2021 Unkn own Cbc [...] 05/28/20 21 Unknown Cbc With Differential Ord2 Hart% 12.7 % 05/28/20 21 Unknown Cbc With [...] K/ul 021 Unknown Cbc With Differential Ord2 Hart ABS# 1.2 K/ul 05/28/20 21 Unknown Cbc With Differential Ord2 Eos ABS# 0.3 K/ul 05/28/20 21 Unknown Cbc With Differential Ord2 Baso ABS# 0.0 K/ul 05/28/20 21 Unknown Procedures Procedure Codes Date ADMIN INFLUENZA VIRUS VAC CPT-4: G0008 08/13/2021 IIV NO PRSV INCREASED AG IM CPT-4: 63836 08/13/2021 Vital Signs Date Vital 09/04/2021 Blood Pressure 1: 170/90 Code: 8480-6 BMI: 38.8 Code: 28868-2 Heart Rate 1: 95 bpm Height: 5'9" Code: 8302-2 SpO2: 95% Temperature: 3 5.9 (C) / 96.6 (F) Weight: 263 lbs Code: 25725-1 08/13/2021 Blood Pressure 1: 160/84 Code: 8480-6 BMI: 38.8 Code: 89928-8 Heart Rate 1: 96 bpm Height: 5'9" Code: 8302-2 Respiratory Rate: 16 bpm SpO2: 94% Temperature: 35.9 (C) / 96.7 (F) Weight: 263 lbs Code: 06789-3 07/23/2021 Blood Pressure 1: 136/84 Code: 8480-6 BMI: 39.6 Code: 35131-4 Heart Rate 1: 80 bpm Height: 5'9" Code: 8302-2 Respiratory Rate: 16 bpm SpO2: 96% Temperature: 36.2 (C) / 97.1 (F) Weight: 268 lbs Code: 07612-4 04/23/2021 Blood Pressure 1: 150/82 Code: 8480-6 Bl ood Pressure 1: 124/80 Code: 8480-6 BMI: 39.9 Code: 86795-8 Heart Rate 1: 81 bpm Height: 5'9" Code: 8302-2 Respiratory Rate: 16 bpm SpO2: 96% Temperature: 36.1 (C) / 96.9 (F) We ight: 270 lbs Code: 37356-4 03/19/2021 Blood Pressure 1: 134/72 Code: 8480-6 BMI: 40.5 Code: 04574-5 Heart Rate 1: 77 bpm Height: 5'9" Code: 8302-2 Respiratory Rate: 18 bpm SpO2: 96% Temperature: 36.7 (C) / 98.0 (F) Weight: 274 lbs 5 oz Code: 60552-6 Functional Status No Functional Status data Reason [...] antibody test positive[ICD10: R76.8] Rosi Maddox MD, [facility] CPT-4: 43170 09/04/2021 [id number]) [id number] EST. 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 PATIENT, LEVEL IV Diagnosis: Essential (primary) hypertension[ICD10: I10] Diagnosis: Chronic kidney disease, stage 3b[ICD10: N18.32] Anny Maddox MD, [facility] CPT-4: 06394 07/23/2021 ([id number] EST. 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 Sheldon for management of kidney disease. [...] bedtime, despite my recommendation for alternatives. 09/04/2021 Patient Education: Patient Medication Summary Completed 09/04/2021 [id number] ([facility] Complex 09/03/2021 Visit Plan: [...] controlled. 08/13/2021 Appointment: [facility] Madd[facility] [phone] [id number] [place] (15 min) Moderate 08/13/2021 Patient Education: [...] renal diet - will send referral to mission support specialist for education of patient. 07/23/2021 Appointment: Anny Maddox WPtel: [phone] [facility] (15 min) Moderate 07/23/2021 Patient Education: Patient Medication Summary Completed 07/23/2021 Patient Education: Patient Medication Summary Completed 05/25/2021 Visit Plan: Gait imbalance - referral to via [facility] physical therapy for balance therapy Diabetes mellitus - chronic - pt insulin dependent, has not been managing his diabetes very well with dietary indescretion, pt has been referred to mission support specialist. Peripheral edema - with peripheral vascular [...] acute concerns. 04/23/2021 Appointment: [facility] Madd[phone] [facility] [place] (15 min) Moderate 04/23/2021 Patient Education: Patient Medication Summary Completed 04/23/2021 Visit Plan: Chronic renal failure - defe r to Nephrology. Pt has not been following a renal diet - will send referral to mission support specialist for education of patient. Diabetes mellitus [...] clean out of his ears. referral to mission support specialist for swelling, renal disease and diabetes. [...] S REGIMEN NOT EFFECTIVE WE WILL CALL [facility] TO SEE WHAT ADDITIONAL SERVICES [...] need to continue to follow up with certified medical dosimetrist, Dr. Sheldon for management of kidney disease. [...] renal diet - will send referral to mission support specialist for education of patient. increase the losartan to 50mg twice lenora y . Gait imbalance - referral to [facility] balance therapy Diabetes mellitus - chronic - pt insulin dependent, has not been managing his diabetes very well with dietary indescretion, pt has been referred to mission support specialist. Peripheral edema - with peripheral vascular [...] renal diet - will send referral to mission support specialist for education of patient. Diabetes mellitus [...] clean out of his ears. referral to mission support specialist for swelling, renal disease and diabetes. Medical Equipment No Medical Equipment data Health Concerns Section Health Concerns data not found Goals Section Goals data not found Interventions Section Interventions data not found Health Status Evaluations/Outcomes Section Health Status Evaluations/Outcomes data not found Advance Directives No Advance Directive data
--- OUTSIDE RECORDS SUMMARY | 2021-10-11 00:55 | XMS REPORT | CCD ---
Author Author Artie Maddox Organization Anny Maddox MD, [facility] Address [address] [place] [address] Phone Care Team Providers Care Ct Manager Name Role Phone Anny Maddox PP Unavailable CCM Unavailable Summary Purpose Interface Exchange Insurance Providers Payer name Policy type / Coverage type Covered republican ID Effective Begin Date Effective End Date [employer] Medicare Part B [id number] Un known Unknown Family history Father Diagnosis [...] of children Unknown 3 two sons live [facility] and 1 dtr lives in [facility] 03/19/2021 Employment Unknown 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 [employer] 03/19/[address]: 941780079 Never smoker 03/19/[address]: 090368593 Never drinks alcohol 2020 Allergies, Adverse Reactions, [...] disease, stage 3b ICD-10: N18.32 03/19/2021 Active detention (current) use of insulin ICD-10: Z79.4 03/19/2021 Active Medications Medication Codes Instructions Start Date Stop Date Status Fill Instructions Linzess 145 mcg capsule RxNorm: 9143458 Take 1 Capsule(s) Oral e very day 09/10/2021 09/10/2021 Inactive Linzess 145 mcg capsule RxNorm: 8917188 Take 1 Capsule(s) Oral e very day 09/10/2021 10/09/2021 Active hydralazine 25 mg tablet RxNorm: 844042 1 Tablet(s) Oral three times a day 08/31/2021 09/29/2021 Active tamsulosin 0.4 mg capsule RxNorm: 115941 Take 1 Capsule(s) Oral every day 08/29/2021 11/26/2021 Active ondansetron 4 mg disintegrating tablet RxNorm: 372966 1 Tablet(s) Oral four times a day 2021 2021 Inactive ondansetron 4 mg disintegrating tablet RxNorm: 002726 1 Tablet(s) Oral four times a day as needed 2021 08/26/2021 Inactive diclofenac 1 % topical gel RxNorm: 467704 Apply 4 Gram( s) Topical four times a day as needed for pain 08/13/2021 No Stop Date Active dispense 3 tubes - please deliver loratadine 10 mg tablet RxNorm: 072290 Take 1 Tablet(s) Oral ev harjinder day 08/13/2021 08/07/2022 Active please deliver for t he patient hydralazine 25 mg tablet RxNorm: 021907 1 Tablet(s) Oral three times a day 08/06/2021 08/31/2021 Inactive carvedilol 25 mg tablet RxNorm: 582810 Take 1 Tablet(s) Oral tw o times a day 08/03/2021 10/01/2021 Active omeprazole 40 mg capsule,delayed release RxNorm: 501010 Take 1 Capsule(s) Oral every day 07/23/2021 10/20/2021 Active hydralazine 10 mg tablet RxNorm: 782365 Take 1 Tablet(s ) Oral two times a day noon and HS 07/23/2021 08/05/2021 Inactive clonidine 0.3 mg/24 hr weekly transdermal patch RxNorm: 9986 79 Take 1 Patch Transdermal weekly 07/23/2021 07/31/2021 Inactive please delive r to pt's home - use good rx if more than 40$ with regular insurance cefdinir 300 mg capsule RxNorm: 474277 Take 1 Capsule(s) Oral t wo times a day 07/19/2021 07/25/2021 Inactive cefdinir 300 mg capsule RxNorm: 871173 Take 1 Capsule(s) Oral t wo times a day 07/19/2021 07/19/2021 Inactive hydralazine 10 mg tablet RxNorm: 278191 Take 1 Tablet(s ) Oral two times a day noon and HS 07/13/2021 07/13/2021 Inactive finasteride 5 mg tablet RxNorm: 902377 Take 1 Tablet(s) Oral ev harjinder day 05/31/2021 08/28/2021 Inactive tamsulosin 0.4 mg capsule RxNorm: 678685 Take 1 Capsule(s) Oral every day 05/31/2021 08/28/2021 Inactive carvedilol 25 mg tablet RxNorm: 376970 Take 1 Tablet(s) Oral tw o times a day 05/18/2021 07/16/2021 Inactive isosorbide mononitrate ER 60 mg tablet,extended release 24 h r RxNorm: 872752 2 Tablet(s) Oral every day 04/26/2021 04/20/2022 Active hydralazine 10 mg tablet RxNorm: 328313 Take 1 Tablet(s ) Oral every night at bedtime 04/26/2021 05/25/2021 Inactive hydralazine 10 mg tablet RxNorm: 359650 Take 1 Tablet(s ) Oral every night at bedtime 04/26/2021 04/26/2021 Inactive losartan 50 mg tablet RxNorm: 297504 Take 1 Tablet(s) Oral two times a day 04/23/2021 04/17/2022 Active dc amlodipine omeprazole 40 mg capsule,delayed release RxNorm: 388176 Take 1 Capsule(s) Oral every day 04/23/2021 07/21/2021 Inactive losartan 50 mg tablet RxNorm: 863668 1 Tablet(s) Oral every nig ht at bedtime 04/12/2021 04/22/2021 Inactive dc amlodipine losartan 50 mg tablet RxNorm: 629894 1 Tablet(s) Oral every nig ht at bedtime 04/12/2021 04/11/2021 Inactive clonidine HCl 0.3 mg tablet RxNorm: 698863 1 Tablet(s) Oral two times a day 04/04/2021 07/22/2021 Inactive Voltaren Arthritis Pain 1 % topical gel RxNorm: 190074 2 Gram(s) Topical four times a day as needed may increase to 4 grams if needed 03/29/202103/04 Inactive Voltaren Arthritis Pain 1 % topical gel RxNorm: 618642 2 Gram(s) Topical four times a day as needed may increase to 4 grams if needed to affected area of pain 03/29/2021 07/26/2021 Inactive Colace 100 mg capsule RxNorm: 9904993 2 Capsule(s) Oral every day 0 03/19/2021 No Stop Date Active Novolog Flexpen U-100 Insulin aspart 100 unit/mL (3 mL ) subcutaneous RxNorm: 0822279 6-7 Unit(s) Subcutaneous before meals 03/19/2021 No Stop Date Act josh Tradjenta 5 mg tablet RxNorm: 3576157 1 Tablet(s) Oral every day No Stop Date Active furosemide 40 mg tablet RxNorm: 964827 1 Tablet(s) Oral every day 0 03/19/2021 No Stop Date Active Levemir FlexTouch U-100 Insulin 100 unit/mL (3 mL) sub cutaneous pen RxNorm: 833882 25 Unit(s) Subcutaneous two times a day 03/19/2021 No Stop Date A ctive Aspirin Low Dose 81 mg tablet,delayed release RxNorm: 088305 1 Tablet(s) Oral every day 03/19/2021 No Stop Date Active Vitamin D3 125 mcg (5,000 unit) tablet RxNorm: 812745 1 Tablet(s) Oral every day 03/19/2021 No Stop Date Active tamsulosin 0.4 mg capsule RxNorm: 986877 1 Capsule(s) Oral every da y 03/19/2021 05/31/2021 Inactive clonidine HCl 0.3 mg tablet RxNorm: 141431 1 Tablet(s) Oral two times a day 03/19/2021 04/03/2021 Inactive isosorbide mononitrate ER 120 mg tablet,extended release 24 hr RxNorm: 149930 1 Tablet(s) Oral every day 03/19/2021 04/26/2021 Inactive omeprazole 40 mg capsule,delayed release RxNorm: 787092 1 Capsule(s) Oral every day 03/19/2021 04/23/2021 Inactive finasteride 5 mg tablet RxNorm: 768205 1 Tablet(s) Oral every day 0 03/19/2021 05/31/2021 Inactive carvedilol 25 mg tablet RxNorm: 953505 1 Tablet(s) Oral two drake es a day 03/19/2021 05/18/2021 Inactive amlodipine 2.5 mg tablet RxNorm: 816412 1 Tablet(s) Oral every day 03/19/2021 04/09/2021 Inactive PreserVision Lutein oral RxNorm: 285013 oral 03/19/2021 Active Medication Administered No Medication Administered data Immunizations Vaccine Codes Date Status Influenza CVX: 135 08/13/2021 Complete Covid-19 CVX: 207 01/26/2021 Covid-19 CVX: 207 12/29/2020 Pneumococcal (Adult) CVX: 33 08/03/2020 Results Observation Observation Code Item Item Code Result Date S ervice Location HEP C ANTIBODY WITH REFLEX TO VIRAL LOAD F411 Hepatitis C Ab Negative 09/06/2021 Unknown %Hba1C Bkk576 % HbA1c 62415-1 8.2 % 05/28/2021 Unknown %Hba1C Nvj854 Gluc Ave 189 mg/dL 05/28/2021 Unknown Comp Metabolic Sli200 NA 142 mEq/L 05/28/2021 Unkn own Comp Metabolic Zna545 K 4.1 mEq/L 05/28/2021 Unkn own Comp Metabolic Cga648 CL 104 mEq/L 05/28/2021 Unkn own Comp Metabolic Uir473 CO2 29.0 mEq/L 05/28/2021 Unk nown Comp Metabolic Bdf399 ANION GAP 13 05/28/2021 Unkn own Comp Metabolic Wai873 GLUCOSE 169 mg/dL 05/28/2021 Unkn own Comp Metabolic Fvd012 Creat 1.9 mg/dL 05/28/2021 Unkn own Comp Metabolic Kmz841 eGFR 37 ml/min/1.73m2 05/28/20 21 Unknown Comp Metabolic Agx624 BUN 35 mg/dL 05/28/2021 Unkn own Comp Metabolic Njt925 B/C Ratio 18.7 Ratio 05/28/2021 Unk nown Comp Metabolic Ahe134 CALCIUM 8.7 mg/dL 05/28/2021 Unkn own Comp Metabolic Nnj834 ALK PHOS 70 U/L 05/28/2021 Unkn own Comp Metabolic Ebg429 AST(SGOT) 17 U/L 05/28/2021 Unkn own Comp Metabolic Cok054 ALT(SGPT) 14 U/L 05/28/2021 Unkn own Comp Metabolic Iuk489 BILI T 0.5 mg/dL 05/28/2021 Unkn own Comp Metabolic Qtn609 ALBUMIN 3.4 g/dL 05/28/2021 Unkn own Comp Metabolic Tvh561 TPRO 6.8 g/dL 05/28/2021 Unkn own Comp Metabolic Hwn900 GLOB 3.4 g/dL 05/28/2021 Unkn own Comp Metabolic Fqu414 A/G Ratio 1.0 Ratio 05/28/2021 Unkn own Comp Metabolic Gmp018 Osmo 295 mOsmo 05/28/2021 Unkn own Cbc [...] 05/28/20 21 Unknown Cbc With Differential Ord2 [place]% 12.7 % 05/28/20 21 Unknown Cbc With [...] K/ul 021 Unknown Cbc With Differential Ord2 [place] ABS# 1.2 K/ul 05/28/20 21 Unknown Cbc With Differential Ord2 Eos ABS# 0.3 K/ul 05/28/20 21 Unknown Cbc With Differential Ord2 Baso ABS# 0.0 K/ul 05/28/20 21 Unknown Procedures Procedure Codes Date ADMIN INFLUENZA VIRUS VAC CPT-4: G0008 08/13/2021 IIV NO PRSV INCREASED AG IM CPT-4: 92461 08/13/2021 Vital Signs Date Vital 09/04/2021 Blood Pressure 1: 170/90 Code: 8480-6 BMI: 38.8 Code: 66426-8 Heart Rate 1: 95 bpm Height: 5'9" Code: 8302-2 SpO2: 95% Temperature: 3 5.9 (C) / 96.6 (F) Weight: 263 lbs Code: 44115-0 08/13/2021 Blood Pressure 1: 160/84 Code: 8480-6 BMI: 38.8 Code: 98421-2 Heart Rate 1: 96 bpm Height: 5'9" Code: 8302-2 Respiratory Rate: 16 bpm SpO2: 94% Temperature: 35.9 (C) / 96.7 (F) Weight: 263 lbs Code: 75921-4 07/23/2021 Blood Pressure 1: 136/84 Code: 8480-6 BMI: 39.6 Code: 47064-4 Heart Rate 1: 80 bpm Height: 5'9" Code: 8302-2 Respiratory Rate: 16 bpm SpO2: 96% Temperature: 36.2 (C) / 97.1 (F) Weight: 268 lbs Code: 12730-8 04/23/2021 Blood Pressure 1: 150/82 Code: 8480-6 Bl ood Pressure 1: 124/80 Code: 8480-6 BMI: 39.9 Code: 50531-5 Heart Rate 1: 81 bpm Height: 5'9" Code: 8302-2 Respiratory Rate: 16 bpm SpO2: 96% Temperature: 36.1 (C) / 96.9 (F) We ight: 270 lbs Code: 47063-4 03/19/2021 Blood Pressure 1: 134/72 Code: 8480-6 BMI: 40.5 Code: 22772-8 Heart Rate 1: 77 bpm Height: 5'9" Code: 8302-2 Respiratory Rate: 18 bpm SpO2: 96% Temperature: 36.7 (C) / 98.0 (F) Weight: 274 lbs 5 oz Code: 65443-8 Functional Status No Functional Status data Reason For Visit Reason For Visit Effective Dates Notes hypertension 09/04/2021 hypertension 08/13/2021 diabetes mellitus 07/23/2021 hypertension 04/23/2021 hypertension 03/19/2021 Encounters Encounter Performer Location Codes Date [id number]) [id number] EST. 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 PATIENT, LEVEL IV Diagnosis: Essential (primary) hypertension[ICD10: I10] Diagnosis: Chronic kidney disease, stage 3b[ICD10: N18.32] Anny Maddox MD, [facility] CPT-4: 37442 07/23/2021 ([id number]) 75139 EST. 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 Sheldon for management of kidney disease. [...] alternatives. 09/04/2021 [facility]ointment[facility] [phone] [id number] [place] ([place] min) Complex 09/04/2021 Patient Education: Patient Medication Summary Completed 09/04/2021 Appointment: [facility] [phone] [id number] [place] (30 min) Complex 09/03/2021 Visit [...] controlled. 08/13/2021 Appointment: [facility] Madd[facility] [phone] [id number] (15 min) Moderate 08/13/2021 Patient Education: Patient [...] renal diet - will send referral to truck driver supervisor for education of patient. 07/23/2021 Appointment: [facility] [phone] [id number] (15 min) Moderate 07/23/2021 Patient Education: Patient Medication Summary Completed 07/23/2021 Patient Education: Patient Medication Summary Completed 05/25/2021 Visit Plan: Gait imbalance - referral to [facility] physical therapy for balance therapy Diabetes mellitus - chronic - pt insulin dependent, has not been managing his diabetes very well with dietary indescretion, pt has been referred to truck driver supervisor. Peripheral edema - with peripheral vascular disease [...] concerns. 04/23/2021 Appointment: [facility] [phone] [id number] [place] (15 min) Moderate 04/23/2021 Patient Education: Patient Medication Summary Completed 04/23/2021 Visit Plan: Chronic renal failure - defe r to Nephrology. Pt has not been following a renal diet - will send referral to truck driver supervisor for education of patient. Diabetes mellitus - [...] clean out of his ears. referral to truck driver supervisor for swelling, renal disease and diabetes. 03/19/2021 [...] S REGIMEN NOT EFFECTIVE WE WILL CALL [facility] TO SEE WHAT ADDITIONAL SERVICES [...] need to continue to follow up with technology director, Dr. Sheldon for management of kidney disease. [...] renal diet - will send referral to truck driver supervisor for education of patient. increase the losartan to 50mg twice lenora y . Gait imbalance - referral to [facility] balance therapy Diabetes mellitus - chronic - pt insulin dependent, has not been managing his diabetes very well with dietary indescretion, pt has been referred to truck driver supervisor. Peripheral edema - with peripheral vascular disease [...] renal diet - will send referral to truck driver supervisor for education of patient. Diabetes mellitus - [...] clean out of his ears. referral to truck driver supervisor for swelling, renal disease and diabetes. Medical Equipment No Medical Equipment data Health Concerns Section Health Concerns data not found Goals Section Goals data not found Interventions Section Interventions data not found Health Status Evaluations/Outcomes Section Health Status Evaluations/Outcomes data not found Advance Directives No Advance Directive data
--- OUTSIDE RECORDS SUMMARY | 2021-10-11 00:55 | XMS REPORT | CCD ---
Author Author Artie Maddox Organization Anny Maddox MD, [facility] Address [address] [place] [address] Phone Care Team Providers Care Piercer Operator Name Role Phone Anny Maddox PP Unavailable CCM Unavailable Summary Purpose Interface Exchange Insurance Providers Payer name Policy type / Coverage type Covered democrat ID Effective Begin Date Effective End Date [employer] Solutions Medicare Part B [id number] Un known Unknown Family history Father Diagnosis [...] of children Unknown 3 two sons live [facility] and 1 dtr lives in [facility] 03/19/2021 Employment Unknown 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 [employer] 03/19/[address]: 880859433 Never smoker 03/19/[address]: 708999655 Never drinks alcohol 2020 Allergies, Adverse Reactions, [...] disease, stage 3b ICD-10: N18.32 03/19/2021 Active long-term (current) use of insulin ICD-10: Z79.4 03/19/2021 Active Medications Medication Codes Instructions Start Date Stop Date Status Fill Instructions tramadol 50 mg tablet RxNorm: 866304 Take 1 Tablet(s) O ral Every 8 hrs as needed 09/25/2021 09/25/2021 Inactive tramadol 50 mg tablet RxNorm: 603038 Take 1 Tablet(s) O ral Every 8 hrs as needed 09/25/2021 09/25/2021 Inactive Linzess 145 mcg capsule RxNorm: 6076039 Take 1 Capsule(s) Oral e very day 09/10/2021 10/09/2021 Active finasteride 5 mg tablet RxNorm: 978633 Take 1 Tablet(s) Oral ev harjinder day 09/10/2021 12/08/2021 Active Linzess 145 mcg capsule RxNorm: 9639612 Take 1 Capsule(s) Oral e very day 09/10/2021 09/10/2021 Inactive hydralazine 25 mg tablet RxNorm: 722724 1 Tablet(s) Oral three times a day 08/31/2021 09/29/2021 Active tamsulosin 0.4 mg capsule RxNorm: 241192 Take 1 Capsule(s) Oral every day 08/29/2021 11/26/2021 Active ondansetron 4 mg disintegrating tablet RxNorm: 245740 1 Tablet(s) Oral four times a day 2021 2021 Inactive ondansetron 4 mg disintegrating tablet RxNorm: 571732 1 Tablet(s) Oral four times a day as needed 2021 08/26/2021 Inactive diclofenac 1 % topical gel RxNorm: 801138 Apply 4 Gram( s) Topical four times a day as needed for pain 08/13/2021 No Stop Date Active dispense 3 tubes - please deliver loratadine 10 mg tablet RxNorm: 957678 Take 1 Tablet(s) Oral ev harjinder day 08/13/2021 08/07/2022 Active please deliver for t he patient hydralazine 25 mg tablet RxNorm: 265824 1 Tablet(s) Oral three times a day 08/06/2021 08/31/2021 Inactive carvedilol 25 mg tablet RxNorm: 430796 Take 1 Tablet(s) Oral tw o times a day 08/03/2021 10/01/2021 Active omeprazole 40 mg capsule,delayed release RxNorm: 857814 Take 1 Capsule(s) Oral every day 07/23/2021 10/20/2021 Active hydralazine 10 mg tablet RxNorm: 572731 Take 1 Tablet(s ) Oral two times a day noon and HS 07/23/2021 08/05/2021 Inactive clonidine 0.3 mg/24 hr weekly transdermal patch RxNorm: 9986 79 Take 1 Patch Transdermal weekly 07/23/2021 07/31/2021 Inactive please delive r to pt's home - use good rx if more than 40$ with regular insurance cefdinir 300 mg capsule RxNorm: 705138 Take 1 Capsule(s) Oral t wo times a day 07/19/2021 07/25/2021 Inactive cefdinir 300 mg capsule RxNorm: 363321 Take 1 Capsule(s) Oral t wo times a day 07/19/2021 07/19/2021 Inactive hydralazine 10 mg tablet RxNorm: 369170 Take 1 Tablet(s ) Oral two times a day noon and HS 07/13/2021 07/13/2021 Inactive finasteride 5 mg tablet RxNorm: 826578 Take 1 Tablet(s) Oral ev harjinder day 05/31/2021 08/28/2021 Inactive tamsulosin 0.4 mg capsule RxNorm: 135724 Take 1 Capsule(s) Oral every day 05/31/2021 08/28/2021 Inactive carvedilol 25 mg tablet RxNorm: 741019 Take 1 Tablet(s) Oral tw o times a day 05/18/2021 07/16/2021 Inactive isosorbide mononitrate ER 60 mg tablet,extended release 24 h r RxNorm: 670399 2 Tablet(s) Oral every day 04/26/2021 04/20/2022 Active hydralazine 10 mg tablet RxNorm: 639967 Take 1 Tablet(s ) Oral every night at bedtime 04/26/2021 05/25/2021 Inactive hydralazine 10 mg tablet RxNorm: 486061 Take 1 Tablet(s ) Oral every night at bedtime 04/26/2021 04/26/2021 Inactive losartan 50 mg tablet RxNorm: 314223 Take 1 Tablet(s) Oral two times a day 04/23/2021 04/17/2022 Active dc amlodipine omeprazole 40 mg capsule,delayed release RxNorm: 590839 Take 1 Capsule(s) Oral every day 04/23/2021 07/21/2021 Inactive losartan 50 mg tablet RxNorm: 184884 1 Tablet(s) Oral every nig ht at bedtime 04/12/2021 04/22/2021 Inactive dc amlodipine losartan 50 mg tablet RxNorm: 043430 1 Tablet(s) Oral every nig ht at bedtime 04/12/2021 04/11/2021 Inactive clonidine HCl 0.3 mg tablet RxNorm: 212662 1 Tablet(s) Oral two times a day 04/04/2021 07/22/2021 Inactive Voltaren Arthritis Pain 1 % topical gel RxNorm: 069407 2 Gram(s) Topical four times a day as needed may increase to 4 grams if needed 03/29/202103/04 Inactive Voltaren Arthritis Pain 1 % topical gel RxNorm: 270501 2 Gram(s) Topical four times a day as needed may increase to 4 grams if needed to affected area of pain 03/29/2021 07/26/2021 Inactive Colace 100 mg capsule RxNorm: 4118885 2 Capsule(s) Oral every day 0 03/19/2021 No Stop Date Active Novolog Flexpen U-100 Insulin aspart 100 unit/mL (3 mL ) subcutaneous RxNorm: 4049693 6-7 Unit(s) Subcutaneous before meals 03/19/2021 No Stop Date Act josh Tradjenta 5 mg tablet RxNorm: 4125627 1 Tablet(s) Oral every day No Stop Date Active furosemide 40 mg tablet RxNorm: 664438 1 Tablet(s) Oral every day 0 03/19/2021 No Stop Date Active Levemir FlexTouch U-100 Insulin 100 unit/mL (3 mL) sub cutaneous pen RxNorm: 310884 25 Unit(s) Subcutaneous two times a day 03/19/2021 No Stop Date A ctive Aspirin Low Dose 81 mg tablet,delayed release RxNorm: 068339 1 Tablet(s) Oral every day 03/19/2021 No Stop Date Active Vitamin D3 125 mcg (5,000 unit) tablet RxNorm: 661833 1 Tablet(s) Oral every day 03/19/2021 No Stop Date Active tamsulosin 0.4 mg capsule RxNorm: 770188 1 Capsule(s) Oral every da y 03/19/2021 05/31/2021 Inactive clonidine HCl 0.3 mg tablet RxNorm: 715258 1 Tablet(s) Oral two times a day 03/19/2021 04/03/2021 Inactive isosorbide mononitrate ER 120 mg tablet,extended release 24 hr RxNorm: 479915 1 Tablet(s) Oral every day 03/19/2021 04/26/2021 Inactive omeprazole 40 mg capsule,delayed release RxNorm: 152674 1 Capsule(s) Oral every day 03/19/2021 04/23/2021 Inactive finasteride 5 mg tablet RxNorm: 048695 1 Tablet(s) Oral every day 0 03/19/2021 05/31/2021 Inactive carvedilol 25 mg tablet RxNorm: 491116 1 Tablet(s) Oral two drake es a day 03/19/2021 05/18/2021 Inactive amlodipine 2.5 mg tablet RxNorm: 570841 1 Tablet(s) Oral every day 03/19/2021 04/09/2021 Inactive PreserVision Lutein oral RxNorm: 038900 oral 03/19/2021 Active Medication Administered No Medication Administered data Immunizations Vaccine Codes Date Status Influenza CVX: 135 08/13/2021 Complete Covid-19 CVX: 207 01/26/2021 Covid-19 CVX: 207 12/29/2020 Pneumococcal (Adult) CVX: 33 08/03/2020 Results Observation Observation Code Item Item Code Result Date S [facility] Location HEP C ANTIBODY WITH REFLEX TO VIRAL LOAD F411 Hepatitis C Ab Negative 09/06/2021 Unknown %Hba1C Iap435 % HbA1c 40208-9 8.2 % 05/28/2021 Unknown %Hba1C Ffo457 Gluc Ave 189 mg/dL 05/28/2021 Unknown Comp Metabolic Otu143 NA 142 mEq/L 05/28/2021 Unkn own Comp Metabolic Xdl767 K 4.1 mEq/L 05/28/2021 Unkn own Comp Metabolic Fbd238 CL 104 mEq/L 05/28/2021 Unkn own Comp Metabolic Jwr823 CO2 29.0 mEq/L 05/28/2021 Unk nown Comp Metabolic Rwf668 ANION GAP 13 05/28/2021 Unkn own Comp Metabolic Zuv508 GLUCOSE 169 mg/dL 05/28/2021 Unkn own Comp Metabolic Zsx163 Creat 1.9 mg/dL 05/28/2021 Unkn own Comp Metabolic Hma021 eGFR 37 ml/min/1.73m2 05/28/20 21 Unknown Comp Metabolic Mqr928 BUN 35 mg/dL 05/28/2021 Unkn own Comp Metabolic Biv618 B/C Ratio 18.7 Ratio 05/28/2021 Unk nown Comp Metabolic Bvs824 CALCIUM 8.7 mg/dL 05/28/2021 Unkn own Comp Metabolic Vqs108 ALK PHOS 70 U/L 05/28/2021 Unkn own Comp Metabolic Pip189 AST(SGOT) 17 U/L 05/28/2021 Unkn own Comp Metabolic Lsy699 ALT(SGPT) 14 U/L 05/28/2021 Unkn own Comp Metabolic Qwz568 BILI T 0.5 mg/dL 05/28/2021 Unkn own Comp Metabolic Xgk677 ALBUMIN 3.4 g/dL 05/28/2021 Unkn own Comp Metabolic Cns846 TPRO 6.8 g/dL 05/28/2021 Unkn own Comp Metabolic Dix324 GLOB 3.4 g/dL 05/28/2021 Unkn own Comp Metabolic Stm633 A/G Ratio 1.0 Ratio 05/28/2021 Unkn own Comp Metabolic Ewt997 Osmo 295 mOsmo 05/28/2021 Unkn own Cbc [...] 05/28/20 21 Unknown Cbc With Differential Ord2 [place]% 12.7 % 05/28/20 21 Unknown Cbc With [...] K/ul 021 Unknown Cbc With Differential Ord2 [place] ABS# 1.2 K/ul 05/28/20 21 Unknown Cbc With Differential Ord2 Eos ABS# 0.3 K/ul 05/28/20 21 Unknown Cbc With Differential Ord2 Baso ABS# 0.0 K/ul 05/28/20 21 Unknown Procedures Procedure Codes Date ADMIN INFLUENZA VIRUS VAC CPT-4: G0008 08/13/2021 IIV NO PRSV INCREASED AG IM CPT-4: 76835 08/13/2021 Vital Signs Date Vital 09/04/2021 Blood Pressure 1: 170/90 Code: 8480-6 BMI: 38.8 Code: 78178-5 Heart Rate 1: 95 bpm Height: 5'9" Code: 8302-2 SpO2: 95% Temperature: 3 5.9 (C) / 96.6 (F) Weight: 263 lbs Code: 77613-5 08/13/2021 Blood Pressure 1: 160/84 Code: 8480-6 BMI: 38.8 Code: 56544-7 Heart Rate 1: 96 bpm Height: 5'9" Code: 8302-2 Respiratory Rate: 16 bpm SpO2: 94% Temperature: 35.9 (C) / 96.7 (F) Weight: 263 lbs Code: 45674-1 07/23/2021 Blood Pressure 1: 136/84 Code: 8480-6 BMI: 39.6 Code: 67974-5 Heart Rate 1: 80 bpm Height: 5'9" Code: 8302-2 Respiratory Rate: 16 bpm SpO2: 96% Temperature: 36.2 (C) / 97.1 (F) Weight: 268 lbs Code: 29664-4 04/23/2021 Blood Pressure 1: 150/82 Code: 8480-6 Bl ood Pressure 1: 124/80 Code: 8480-6 BMI: 39.9 Code: 76239-4 Heart Rate 1: 81 bpm Height: 5'9" Code: 8302-2 Respiratory Rate: 16 bpm SpO2: 96% Temperature: 36.1 (C) / 96.9 (F) We ight: 270 lbs Code: 79282-7 03/19/2021 Blood Pressure 1: 134/72 Code: 8480-6 BMI: 40.5 Code: 37498-6 Heart Rate 1: 77 bpm Height: 5'9" Code: 8302-2 Respiratory Rate: 18 bpm SpO2: 96% Temperature: 36.7 (C) / 98.0 (F) Weight: 274 lbs 5 oz Code: 96500-9 Functional Status No Functional Status data Reason For Visit Reason For Visit Effective Dates Notes hypertension 09/04/2021 hypertension 08/13/2021 diabetes mellitus 07/23/2021 hypertension 04/23/2021 hypertension 03/19/2021 Encounters Encounter Performer Location Codes ([id number]) 70782 EST. 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 PATIENT, LEVEL IV Diagnosis: Essential (primary) hypertension[ICD10: I10] Diagnosis: Chronic kidney disease, stage 3b[ICD10: N18.32] Anny Maddox MD, [facility] CPT-4: 04839 07/23/2021 ([id number]) 89374 EST. 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[ICD10: I87.2] Anny Maddox MD, [facility] CPT-4: 02354 04/23/2021 ([id number]) OFFICE/OUTPATIENT VISIT NEW Diagnosis: Essential (primary) hypertension[ICD10: I10] Diagnosis: Chronic kidney disease, stage 3b[ICD10: N18.32] 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 Sheldon for management of kidney disease. [...] for alternatives. 09/04/2021 Appointment: [facility] [place] ([facility] Complex 09/04/2021 Patient Education: Patient Medication Summary Completed 09/04/2021 Appointment: [facility] [phone] [facility] [place] (30 min) Complex 09/03/2021 Visit [...] less controlled. 08/13/2021 Appointment: Anny Maddox WPtel: [phone] [id number] (15 min) Moderate 08/13/2021 Patient Education: Patient [...] renal diet - will send referral to equine breeder for education of patient. 07/23/2021 Appointment: An[facility] Madd[facility] [phone] [facility] ([facility] min) Moderate 07/23/2021 Patient Education: Patient Medication Summary Completed 07/23/2021 Patient Education: Patient Medication Summary Completed 05/25/2021 Visit Plan: Gait imbalance - referral to via [facility] for balance therapy Diabetes mellitus - chronic - pt insulin dependent, has not been managing his diabetes very well with dietary indescretion, pt has been referred to equine breeder. Peripheral edema - with peripheral vascular disease [...] acute concerns. 04/23/2021 Appointment: Anny Maddox WPtel[facility] [place] (15 min) Moderate 04/23/2021 Patient Education: Patient Medication Summary Completed 04/23/2021 Visit Plan: Chronic renal failure - defe r to Nephrology. Pt has not been following a renal diet - will send referral to equine breeder for education of patient. Diabetes mellitus - [...] clean out of his ears. referral to equine breeder for swelling, renal disease and diabetes. 03/19/2021 [...] S REGIMEN NOT EFFECTIVE WE WILL CALL [facility] TO SEE WHAT ADDITIONAL SERVICES THEY CAN [...] need to continue to follow up with sheet ironworker, Dr. Sheldon for management of kidney disease. [...] renal diet - will send referral to equine breeder for education of patient. increase the losartan to 50mg twice lenora y . Gait imbalance - referral to [facility] balance therapy Diabetes mellitus - chronic - pt insulin dependent, has not been managing his diabetes very well with dietary indescretion, pt has been referred to equine breeder. Peripheral edema - with peripheral vascular disease [...] renal diet - will send referral to equine breeder for education of patient. Diabetes mellitus - [...] clean out of his ears. referral to equine breeder for swelling, renal disease and diabetes. Medical Equipment No Medical Equipment data Health Concerns Section Health Concerns data not found Goals Section Goals data not found Interventions Section Interventions data not found Health Status Evaluations/Outcomes Section Health Status Evaluations/Outcomes data not found Advance Directives No Advance Directive data
--- OUTSIDE RECORDS SUMMARY | 2021-10-11 00:55 | XMS REPORT | CCD ---
Author Author Artie Maddox Organization Anny Maddox MD, [facility] Address [address] [place] [address] Phone Care Team Providers Care Commissioned Security Officer Name Role Phone Anny Maddox PP Unavailable CCM Unavailable Summary Purpose Interface Exchange Insurance Providers Payer name Policy type / Coverage type Covered republican ID Effective Begin Date Effective End Date [employer] Medicare Part B [id number] Un known Unknown Family history Father Diagnosis [...] Unknown 3 two sons live [facility] and 1 dtr lives in [facility] 03/19/2021 Employment Unknown 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 [employer] 03/19/[address]: 309427468 Never smoker 03/19/[address]: 193814257 Never drinks alcohol 2020 Allergies, Adverse Reactions, [...] Fill Instructions hydralazine 25 mg tablet RxNorm: 942497 1 Tablet(s) Oral three times a day 08/31/2021 09/29/2021 Active tamsulosin 0.4 mg capsule RxNorm: 408175 Take 1 Capsule(s) Oral every day 08/29/2021 11/26/2021 Active ondansetron 4 mg disintegrating tablet RxNorm: 540180 1 Tablet(s) Oral four times a day 2021 2021 Inactive ondansetron 4 mg disintegrating tablet RxNorm: 893035 1 Tablet(s) Oral four times a day as needed 2021 08/26/2021 Inactive diclofenac 1 % topical gel RxNorm: 951378 Apply 4 Gram( s) Topical four times a day as needed for pain 08/13/2021 No Stop Date Active dispense 3 tubes - please deliver loratadine 10 mg tablet RxNorm: 990353 Take 1 Tablet(s) Oral ev day 08/13/2021 08/07/2022 Active please deliver for t he patient hydralazine 25 mg tablet RxNorm: 520598 1 Tablet(s) Oral three times a day 08/06/2021 08/31/2021 Inactive carvedilol 25 mg tablet RxNorm: 102648 Take 1 Tablet(s) Oral tw o times a day 08/03/2021 10/01/2021 Active omeprazole 40 mg capsule,delayed release RxNorm: 101869 Take 1 Capsule(s) Oral every day 07/23/2021 10/20/2021 Active hydralazine 10 mg tablet RxNorm: 680498 Take 1 Tablet(s ) Oral two times a day noon and HS 07/23/2021 08/05/2021 Inactive clonidine 0.3 mg/24 hr weekly transdermal patch RxNorm: 9986 79 Take 1 Patch Transdermal weekly 07/23/2021 07/31/2021 Inactive please delive r to pt's home - use good rx if more than 40$ with regular insurance cefdinir 300 mg capsule RxNorm: 729579 Take 1 Capsule(s) Oral t wo times a day 07/19/2021 07/25/2021 Inactive cefdinir 300 mg capsule RxNorm: 925718 Take 1 Capsule(s) Oral t wo times a day 07/19/2021 07/19/2021 Inactive hydralazine 10 mg tablet RxNorm: 467989 Take 1 Tablet(s ) Oral two times a day noon and HS 07/13/2021 07/13/2021 Inactive finasteride 5 mg tablet RxNorm: 706465 Take 1 Tablet(s) Oral ev harjinder day 05/31/2021 08/28/2021 Inactive tamsulosin 0.4 mg capsule RxNorm: 052906 Take 1 Capsule(s) Oral every day 05/31/2021 08/28/2021 Inactive carvedilol 25 mg tablet RxNorm: 086320 Take 1 Tablet(s) Oral tw o times a day 05/18/2021 07/16/2021 Inactive isosorbide mononitrate ER 60 mg tablet,extended release 24 h r RxNorm: 100981 2 Tablet(s) Oral every day 04/26/2021 04/20/2022 Active hydralazine 10 mg tablet RxNorm: 830520 Take 1 Tablet(s ) Oral every night at bedtime 04/26/2021 05/25/2021 Inactive hydralazine 10 mg tablet RxNorm: 398218 Take 1 Tablet(s ) Oral every night at bedtime 04/26/2021 04/26/2021 Inactive losartan 50 mg tablet RxNorm: 617961 Take 1 Tablet(s) Oral two times a day 04/23/2021 04/17/2022 Active dc amlodipine omeprazole 40 mg capsule,delayed release RxNorm: 932302 Take 1 Capsule(s) Oral every day 04/23/2021 07/21/2021 Inactive losartan 50 mg tablet RxNorm: 178274 1 Tablet(s) Oral every nig ht at bedtime 04/12/2021 04/22/2021 Inactive dc amlodipine losartan 50 mg tablet RxNorm: 380468 1 Tablet(s) Oral every nig ht at bedtime 04/12/2021 04/11/2021 Inactive clonidine HCl 0.3 mg tablet RxNorm: 618523 1 Tablet(s) Oral two times a day 04/04/2021 07/22/2021 Inactive Voltaren Arthritis Pain 1 % topical gel RxNorm: 159580 2 Gram(s) Topical four times a day as needed may increase to 4 grams if needed 03/29/202103/04 Inactive Voltaren Arthritis Pain 1 % topical gel RxNorm: 518138 2 Gram(s) Topical four times a day as needed may increase to 4 grams if needed to affected area of pain 03/29/2021 07/26/2021 Inactive Colace 100 mg capsule RxNorm: 5166586 2 Capsule(s) Oral every day 0 03/19/2021 No Stop Date Active Novolog Flexpen U-100 Insulin aspart 100 unit/mL (3 mL ) subcutaneous RxNorm: 7062755 6-7 Unit(s) Subcutaneous before meals 03/19/2021 No Stop Date Act josh Tradjenta 5 mg tablet RxNorm: 0133702 1 Tablet(s) Oral every day No Stop Date Active furosemide 40 mg tablet RxNorm: 036272 1 Tablet(s) Oral every day 0 03/19/2021 No Stop Date Active Levemir FlexTouch U-100 Insulin 100 unit/mL (3 mL) sub cutaneous pen RxNorm: 581560 25 Unit(s) Subcutaneous two times a day 03/19/2021 No Stop Date A ctive Aspirin Low Dose 81 mg tablet,delayed release RxNorm: 923714 1 Tablet(s) Oral every day 03/19/2021 No Stop Date Active Vitamin D3 125 mcg (5,000 unit) tablet RxNorm: 139435 1 Tablet(s) Oral every day 03/19/2021 No Stop Date Active tamsulosin 0.4 mg capsule RxNorm: 606284 1 Capsule(s) Oral every da y 03/19/2021 05/31/2021 Inactive clonidine HCl 0.3 mg tablet RxNorm: 988718 1 Tablet(s) Oral two times a day 03/19/2021 04/03/2021 Inactive isosorbide mononitrate ER 120 mg tablet,extended release 24 hr RxNorm: 600821 1 Tablet(s) Oral every day 03/19/2021 04/26/2021 Inactive omeprazole 40 mg capsule,delayed release RxNorm: 270881 1 Capsule(s) Oral every day 03/19/2021 04/23/2021 Inactive finasteride 5 mg tablet RxNorm: 358388 1 Tablet(s) Oral every day 0 03/19/2021 05/31/2021 Inactive carvedilol 25 mg tablet RxNorm: 326556 1 Tablet(s) Oral two drake es a day 03/19/2021 05/18/2021 Inactive amlodipine 2.5 mg tablet RxNorm: 701667 1 Tablet(s) Oral every day 03/19/2021 04/09/2021 Inactive PreserVision Lutein oral RxNorm: 024341 oral 03/19/2021 Active Medication Administered No Medication Administered data Immunizations Vaccine Codes Date Status Influenza CVX: 135 08/13/2021 Complete Covid-19 CVX: 207 01/26/2021 Covid-19 CVX: 207 12/29/2020 Pneumococcal (Adult) CVX: 33 08/03/2020 Results Observation Observation Code Item Item Code Result Date S ervice Location HEP C ANTIBODY WITH REFLEX TO VIRAL LOAD F411 Hepatitis C Ab Negative 09/06/2021 Unknown %Hba1C Mvf142 % HbA1c 92543-6 8.2 % 05/28/2021 Unknown %Hba1C Rgn982 Gluc Ave 189 mg/dL 05/28/2021 Unknown Comp Metabolic Fkm046 NA 142 mEq/L 05/28/2021 Unkn own Comp Metabolic Bwa742 K 4.1 mEq/L 05/28/2021 Unkn own Comp Metabolic Gii900 CL 104 mEq/L 05/28/2021 Unkn own Comp Metabolic Bwf629 CO2 29.0 mEq/L 05/28/2021 Unk nown Comp Metabolic Mze018 ANION GAP 13 05/28/2021 Unkn own Comp Metabolic Ajy047 GLUCOSE 169 mg/dL 05/28/2021 Unkn own Comp Metabolic Szl562 Creat 1.9 mg/dL 05/28/2021 Unkn own Comp Metabolic Fdk844 eGFR 37 ml/min/1.73m2 05/28/20 21 Unknown Comp Metabolic Nft072 BUN 35 mg/dL 05/28/2021 Unkn own Comp Metabolic Phl054 B/C Ratio 18.7 Ratio 05/28/2021 Unk nown Comp Metabolic Hbd046 CALCIUM 8.7 mg/dL 05/28/2021 Unkn own Comp Metabolic Irv795 ALK PHOS 70 U/L 05/28/2021 Unkn own Comp Metabolic Haq642 AST(SGOT) 17 U/L 05/28/2021 Unkn own Comp Metabolic Tqu311 ALT(SGPT) 14 U/L 05/28/2021 Unkn own Comp Metabolic Syc769 BILI T 0.5 mg/dL 05/28/2021 Unkn own Comp Metabolic Hkv391 ALBUMIN 3.4 g/dL 05/28/2021 Unkn own Comp Metabolic Lzd652 TPRO 6.8 g/dL 05/28/2021 Unkn own Comp Metabolic Jdy424 GLOB 3.4 g/dL 05/28/2021 Unkn own Comp Metabolic Xkp103 A/G Ratio 1.0 Ratio 05/28/2021 Unkn own Comp Metabolic Lmq865 Osmo 295 mOsmo 05/28/2021 Unkn own Cbc [...] 05/28/20 21 Unknown Cbc With Differential Ord2 Whitley% 12.7 % 05/28/20 21 Unknown Cbc With [...] K/ul 021 Unknown Cbc With Differential Ord2 Whitley ABS# 1.2 K/ul 05/28/20 21 Unknown Cbc With Differential Ord2 Eos ABS# 0.3 K/ul 05/28/20 21 Unknown Cbc With Differential Ord2 Baso ABS# 0.0 K/ul 05/28/20 21 Unknown Procedures Procedure Codes Date ADMIN INFLUENZA VIRUS VAC CPT-4: G0008 08/13/2021 IIV NO PRSV INCREASED AG IM CPT-4: 81391 08/13/2021 Vital Signs Date Vital 09/04/2021 Blood Pressure 1: 170/90 Code: 8480-6 BMI: 38.8 Code: 00987-9 Heart Rate 1: 95 bpm Height: 5'9" Code: 8302-2 SpO2: 95% Temperature: 3 5.9 (C) / 96.6 (F) Weight: 263 lbs Code: 62227-6 08/13/2021 Blood Pressure 1: 160/84 Code: 8480-6 BMI: 38.8 Code: 50113-6 Heart Rate 1: 96 bpm Height: 5'9" Code: 8302-2 Respiratory Rate: 16 bpm SpO2: 94% Temperature: 35.9 (C) / 96.7 (F) Weight: 263 lbs Code: 56561-7 07/23/2021 Blood Pressure 1: 136/84 Code: 8480-6 BMI: 39.6 Code: 48196-3 Heart Rate 1: 80 bpm Height: 5'9" Code: 8302-2 Respiratory Rate: 16 bpm SpO2: 96% Temperature: 36.2 (C) / 97.1 (F) Weight: 268 lbs Code: 08369-4 04/23/2021 Blood Pressure 1: 150/82 Code: 8480-6 Bl ood Pressure 1: 124/80 Code: 8480-6 BMI: 39.9 Code: 14548-7 Heart Rate 1: 81 bpm Height: 5'9" Code: 8302-2 Respiratory Rate: 16 bpm SpO2: 96% Temperature: 36.1 (C) / 96.9 (F) We ight: 270 lbs Code: 79665-2 03/19/2021 Blood Pressure 1: 134/72 Code: 8480-6 BMI: 40.5 Code: 48618-9 Heart Rate 1: 77 bpm Height: 5'9" Code: 8302-2 Respiratory Rate: 18 bpm SpO2: 96% Temperature: 36.7 (C) / 98.0 (F) Weight: 274 lbs 5 oz Code: 34162-6 Functional Status No Functional Status data Reason [...] antibody test positive[ICD10: R76.8] Rosi Maddox MD, [facility] CPT-4: 11242 09/04/2021 ([id number]) 70825 EST. PATIENT, LEVEL IV Diagnosis: Essential (primary) hypertension[ICD10: I10] Diagnosis: 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 chronic kidney disease, with long-term current use of insulin[ICD10: E11.22] Diagnosis: Chronic kidney disease, stage 3b[ICD10: N18.32] Anny Maddox MD, [facility] CPT-4: 10469 08/13/2021 ([id number]) 82561 EST. PATIENT, LEVEL IV Diagnosis: Essential (primary) hypertension[ICD10: I10] Diagnosis: Chronic kidney disease, stage 3b[ICD10: N18.32] [facility] CPT-4: 27143 07/23/2021 ([id number] 25050 EST. 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 Sheldon for management of kidney disease. [...] for alternatives. 09/04/2021 Appointment: Rosi Phelan WPtel: [phone] [facility] (30 min) Complex 09/04/2021 Patient Education: Patient Medication Summary Completed 09/04/2021 Appointment: Rosi Phelan WPtel: [facility] [place] (30 min) Complex 09/03/2021 Visit Plan: [...] controlled. 08/13/2021 [phone] [facility] [place] (15 min) Moderate 08/13/2021 Patient [...] renal diet - will send referral to medical corps officer for education of patient. 07/23/2021 [facility]ment[facility] [phone] [facility] (15 min) Moderate 07/23/2021 Patient Education: Patient Medication Summary Completed 07/23/2021 Patient Education: Patient Medication Summary Completed 05/25/2021 Visit Plan: Gait imbalance - referral to via [facility] for balance therapy Diabetes mellitus - chronic - pt insulin dependent, has not been managing his diabetes very well with dietary indescretion, pt has been referred to medical corps officer. Peripheral edema - with peripheral vascular disease [...] concerns. 04/23/2021 Appointment[facility] [phone] [facility] [place] (15 min) Moderate 04/23/2021 Patient Education: Patient Medication Summary Completed 04/23/2021 Visit Plan: Chronic renal failure - defe r to Nephrology. Pt has not been following a renal diet - will send referral to medical corps officer for education of patient. Diabetes mellitus - [...] clean out of his ears. referral to medical corps officer for swelling, renal disease and diabetes. 03/19/2021 [...] need to continue to follow up with collet driller, Dr. Sheldon for management of kidney disease. [...] renal diet - will send referral to medical corps officer for education of patient. increase the losartan to 50mg twice lenora y . Gait imbalance - referral to [facility] for balance therapy Diabetes mellitus - chronic - pt insulin dependent, has not been managing his diabetes very well with dietary indescretion, pt has been referred to medical corps officer. Peripheral edema - with peripheral vascular disease [...] renal diet - will send referral to medical corps officer for education of patient. Diabetes mellitus - [...] clean out of his ears. referral to medical corps officer for swelling, renal disease and diabetes. Medical Equipment No Medical Equipment data Health Concerns Section Health Concerns data not found Goals Section Goals data not found Interventions Section Interventions data not found Health Status Evaluations/Outcomes Section Health Status Evaluations/Outcomes data not found Advance Directives No Advance Directive data
--- NOTE | 2021-10-11 01:24 | ED GI ---
General Chief Complaint: Abdominal/GI Problems Stated Complaint: POSS BOWEL BLOCKAGE Nursing Triage Note: PATIENT COMPLAINT OF CONSTIPATION. STATES PASSED GAS TODAY. LAST BOWEL MOVEMENT FRIDAY.. DENIES ABDOMINAL PAIN Source of Information: Patient Exam Limitations: No Limitations History of Present Illness Date Seen by Provider: Oct 11, 2021 Time Seen by Provider: 00:58 Initial Comments Here with report of constipation. States that he has not had a bowel movement for 3 to 4 days with last bowel movement on Friday. Was passing gas as of today. Denies abdominal pain. He did take MiraLAX this evening but did not get any effect. He is concerned with not passing bowel. Denies fever chills. Denies other problems. Patient has had Covid and has been vaccinated as well. Timing/Duration: 3-4 Days Severity/Quality: Mild, Other (No significant pain) Radiation: No Radiation Modifying Factors: Improves With Defecating Associated Symptoms: No Back Pain, No Fever/Chills, No Nausea/Vomiting, No Swelling/Mass in Abdomen, No Weakness Allergies and Home Medications Allergies Coded Allergies: Sulfa (Sulfonamide Antibiotics) (Unverified Allergy, Unknown, 10/10/19) Patient Home Medication List Home Medication List Reviewed: Yes Amlodipine Besylate (Amlodipine Besylate) 10 Mg Tablet, 10 MG PO DAILY Prescribed by: MARIO SULLIVAN on 12/19/20 1239 Amoxicillin/Potassium Clav (Amox Tr-K Clv 875-125 mg Tab) 1 Each Tablet, 875 MG PO BID WITH MEALS Prescribed by: MARIO SULLIVAN on 12/19/20 1239 Carvedilol (Carvedilol) 12.5 Mg Tablet, 25 MG PO BID Prescribed by: MARIO SULLIVAN on 12/19/20 1239 Clonidine HCl (Clonidine HCl) 0.3 Mg Tablet, 0.3 MG PO BID Prescribed by: MARIO SULLIVAN on 12/20/20 1451 Finasteride (Finasteride) 5 Mg Tablet, 5 MG PO DAILY Prescribed by: MARIO SULLIVAN on 12/19/20 1239 Fluticasone Propionate (Fluticasone Propionate) 16 Gm [place].susp, 1 SPRAY NSEACH DAILY, (Reported) Entered as Reported by: JOSE LUIS HUNTER on 12/11/20 1529 Furosemide (Furosemide) 40 Mg Tablet, 40 MG PO DAILY, (Reported) Entered as Reported by: ALECIA HERRERA on 10/17/18 1427 Hydralazine HCl (Hydralazine HCl) 25 Mg Tablet, 25 MG PO TID Prescribed by: ARAMIS ROD on 07/31/21 193 Insulin Detemir (Levemir Flextouch) 100 Unit/1 Ml Insuln.pen, 25 UNIT SQ BID, (Reported) Entered as Reported by: VALENTINA العلي on 10/11/19 1034 Isosorbide Mononitrate (Isosorbide Mononitrate ER) 120 Mg Tab.er.24h, 120 MG PO DAILY, (Reported) Entered as Reported by: RASHIDA CLAROS on 10/10/19 1238 Omeprazole (Omeprazole) 40 Mg Capsule.dr, 40 MG PO DAILY, (Reported) Entered as Reported by: JOSE LUIS HUNTER on 12/11/20 1529 Tamsulosin HCl (Flomax) 0.4 Mg Cap, 0.4 MG PO DAILY, (Reported) Entered as Reported by: RASHIDA CLAROS on 10/10/19 1238 Tramadol HCl (Tramadol HCl) 50 Mg Tablet, 50 MG PO TID, (Reported) Entered as Reported by: JOSE LUIS HUNTER on 12/11/20 1529 Review of Systems Review of Systems Constitutional: No chills, No fever EENTM: No Symptoms Reported Respiratory: No Symptoms Reported Cardiovascular: Denies Chest Pain; Edema (Unchanged) Gastrointestinal: Constipated; Denies Diarrhea, Denies Nausea, Denies Vomiting Genitourinary: No Symptoms Reported Musculoskeletal: No back pain, No muscle pain Skin: no symptoms reported Psychiatric/Neurological: Anxiety; Denies Weakness Past Egjpqys-Tsmxzz-Vwwqrh Hx Patient Social History Tobacco Use?: No Substance use?: No Alcohol Use?: No Immunizations Up To Date Tetanus Booster (TDap): Less than 5yrs First/Initial COVID19 Vaccinat: January COVID19 Vaccination Zoltan: January COVID19 Vaccination Date: JANUARY Seasonal Allergies Seasonal Allergies: No Past Medical History Surgery/Hospitalization HX: HOSPITALIZED 12/11-12/20/20 FOR COVID-19 AND DIVERTICULITIS. NO HYPOXIA AND NO SPECIFIC TREATMENT FOR COVID-19 AT THAT TIME. 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;DIVERTICULITIS-NO SURGERY) Diverticulosis, Gall Bladder Disease Musculoskeletal: No Endocrine: Yes (SELF MEDICATES WITH HIS INSULIN; OBESITY) Diabetes, Insulin dep HEENT: No (patient wears glasses ) Loss of Vision: Denies Hearing Impairment: Denies Cancer: No Psychosocial: No Integumentary: No Blood Disorders: No Family Medical History Reviewed Nursing Family Hx Cardiovascular disease 19 FATHER Hypertension 19 FATHER CAD Over 55 Years Old, Hypertension PAST SURGICAL HISTORY: -CARDIAC CATH 11/09/19--DIFFUSELY CALCIFIED CORONARY ARTERIES, SMALL VESSEL DISEASE, NO INTERVENTION - Physical Exam Vital Signs Vital Signs - First Documented 10/11/21 01:00 Pulse 84 Resp 20 B/P (MAP) 141/97 (112) Pulse Ox 92 O2 Delivery Room Air Capillary Refill : Less Than 3 Seconds Height/Weight/BMI Height: 5'7.00" Weight: 200lbs. oz. 90.278923un; 38.00 BMI Method:Estimated General Appearance: WD/WN, no apparent distress HEENT: PERRL/EOMI, pharynx normal Neck: full range of motion, supple Respiratory: lungs clear, normal breath sounds Cardiovascular: regular rate, rhythm, no murmur Gastrointestinal: normal bowel sounds, non tender, soft, no organomegaly, no pulsatile mass Extremities: non-tender, pedal edema (3+ up to knees bilateral) Back: No CVA tenderness (R), No CVA tenderness (L), No vertebral tenderness Neurologic/Psychiatric: alert, normal mood/affect Skin: normal color, warm/dry Progress/Results/Core Measures Results/Orders Lab Results Laboratory Tests Test 10/11/21 04:07 Range/Units Sodium Level 138 135-145 MMOL/L Potassium Level 4.6 3.6-5.0 MMOL/L Chloride Level 101 98-107 MMOL/L Carbon Dioxide Level 25 21-32 MMOL/L Anion Gap 12 5-14 MMOL/L Blood Urea Nitrogen 25 H 7-18 MG/DL Creatinine 2.05 H 0.60-1.30 MG/DL Estimat Glomerular Filtration Rate 31 BUN/Creatinine Ratio 12 Glucose Level 156 H 70-105 MG/DL Calcium Level 8.9 8.5-10.1 MG/DL My Orders Orders - SHARON CROW MD Acute Abd Series (10/11/21 01:10) Bisacodyl Suppository (Dulcolax Supposit (10/11/21 02:15) Basic Metabolic Panel (10/11/21 04:01) Medications Given in ED Current Medications Medications Dose Ordered Sig/Laya Route Start Time Stop Time Status Last Admin Dose Admin Bisacodyl 20 mg ONCE ONCE MT 10/11/21 02:15 10/11/21 02:17 DC 10/11/21 02:20 20 MG Vital Signs/I&O 10/11/21 01:00 Pulse 84 Resp 20 B/P (MAP) 141/97 (112) Pulse Ox 92 O2 Delivery Room Air Blood Pressure Mean: 112 Progress Progress Note : Progress Note Seen and evaluated. Acute abdominal series ordered. Monitor patient. 0215: Acute abdominal series does show a fair amount of constipation. Dulcolax suppositories to suppositories placed. We will see if that provides adequate results. Monitor patient. 0430: Patient had moderate sized stool. He requested we recheck his renal function and BMP was ordered. This does show renal function and normal range for him with GFR of 31. I did discuss with him outpatient options including increase fluid and using the MiraLAX. He is concerned about renal function of MiraLAX. With only 0.2% absorption, I believe MiraLAX will be fine at least and limited usage but also discussed Metamucil and other fiber alternatives. He will follow-up with his doctor as well. Discharged home with return precautions. Patient verbalized understanding of instructions and agreement with plan. Departure Impression Primary Impression: Constipation Qualified Codes: K59.00 - Constipation, unspecified Additional Impression: Chronic renal disease, stage 3, moderately decreased glomerular filtration rate (GFR) between 30-59 mL/min/1.73 square meter Qualified Codes: N18.32 - Chronic kidney disease, stage 3b Disposition: 01 HOME, SELF-CARE Condition: Improved Departure-Patient Inst. Decision time for Depature: 04:35 Referrals: BRADY VERNON MD (PCP/Family) Primary Care Physician Patient Instructions: Constipation, Adult ED Add. Discharge Instructions: All discharge instructions reviewed with patient and/or family. Voiced understanding. Continue to drink plenty of fluids. You should increase fiber in your diet. You may take ryxs-bik-sdklssx Metamucil or similar items to increase fiber. You may also take MiraLAX or the generic 1 capful twice daily for the next 3 days and then 1/2-1 capful daily thereafter to keep stools soft. You may increase or decrease the dose as needed. You may discuss this with your doctor as well due to your concerns regarding renal function. Return for worse pain, fever, vomiting, weakness, breathing problems or other concerns as needed. Copy Copies To 1: BRADY VERNON MD, TIMOTHY D MD Oct 11, 2021 01:24
[2021-10-11] MEDS ORDERED: BISACODYL 10 MG SUPP (DULCOLAX) PR ONE (02:15)
[2021-10-11 04:20] LABS: POTASSIUM 4.6 MMOL/L (3.6-5.0)
[2021-10-11 04:22] LABS: CALCIUM 8.9 MG/DL (8.5-10.1)
[2021-10-11 04:26] LABS: CREATININE SERUM 2.05 MG/DL (0.60-1.30)
[2021-10-11 04:41] VITALS: BP 141/97
--- NOTE | 2021-10-11 05:13 | Diagnostic Imaging Report ---
INDICATION: Abdominal pain Supine and upright views of the abdomen are obtained with single view of the chest. Comparison is made to study of 10/14/2019. There is slight linear atelectasis and/or scarring in the lung bases. Lungs are otherwise clear. Moderate amount of stool seen throughout the colon. No definite transition point is seen to indicate an obstruction. No free intraperitoneal gas or pneumatosis is seen. There is no evidence of pathologic abdominal calcification. IMPRESSION: Moderate colonic stool burden may reflect constipation. No other definite acute abnormality is seen. Dictated by: Dictated on workstation # [id number]
== END 2021-10-11 04:42 | disposition home or self-care (01) ==
LOC: EDUNIT# 00:48 → ER 00:51
DX: K59.00 Constipation, unspecified (principal); I12.9 Hypertensive chronic kidney disease with stage 1 through stage 4 chronic kidney disease, or unspecified chronic kidney disease; E11.22 Type 2 diabetes mellitus with diabetic chronic kidney disease; N18.30 Chronic kidney disease, stage 3 unspecified; I25.2 Old myocardial infarction; I25.10 Atherosclerotic heart disease of native coronary artery without angina pectoris; Z79.4 Long term (current) use of insulin; Z79.899 Other long term (current) drug therapy
CPT/HCPCS: 36415; 74022; 80048

== ENCOUNTER 2021-10-14 13:44 | Emergency (ER) | payer MEDICARE ==
[~2021-10-14] VITALS: Ht 170.1 cm; Wt 117.0 kg
--- NOTE | 2021-10-14 14:23 | ED GI ---
General Chief Complaint: Abdominal/GI Problems Stated Complaint: CONSTIPATION Nursing Triage Note: feels like he is constipated. has been having trouble with constipation recently. Source of Information: Patient Exam Limitations: No Limitations (TIFFANY ALARCON STUDENT) History of Present Illness Date Seen by Provider: Oct 14, 2021 Time Seen by Provider: 14:10 Initial Comments This is an 81 YO male presenting to the ED with constipation. Pt was seen in the ED for the same complaint 3 days ago. He was given a suppository at that time and was able to have a couple of BM's while in the department. He says that yesterday he was only able to have one small BM and has not been able to have one today at all. Has taken 3 dulcolaxes today without improvement. States he has been told by his doctor multiple times that he can take Miralax, but he is concerned about its effect on his kidney function. Denies abdominal pain, N/V, or any other complaints. (TIFFANY ALARCON STUDENT) Allergies and Home Medications Allergies Coded Allergies: Sulfa (Sulfonamide Antibiotics) (Unverified Allergy, Unknown, 10/10/19) Patient Home Medication List Home Medication List Reviewed: Yes (ROGERS BRIGGS MD) Amlodipine Besylate (Amlodipine Besylate) 10 Mg Tablet, 10 MG PO DAILY Prescribed by: MARIO SULLIVAN on 12/19/20 1239 Amoxicillin/Potassium Clav (Amox Tr-K Clv 875-125 mg Tab) 1 Each Tablet, 875 MG PO BID WITH MEALS Prescribed by: MARIO SULLIVAN on 12/19/20 1239 Carvedilol (Carvedilol) 12.5 Mg Tablet, 25 MG PO BID Prescribed by: MARIO SULLIVAN on 12/19/20 1239 Clonidine HCl (Clonidine HCl) 0.3 Mg Tablet, 0.3 MG PO BID Prescribed by: MARIO SULLIVAN on 12/20/20 1451 Finasteride (Finasteride) 5 Mg Tablet, 5 MG PO DAILY Prescribed by: MARIO SULLIVAN on 12/19/20 1239 Fluticasone Propionate (Fluticasone Propionate) 16 Gm [place].susp, 1 SPRAY NSEACH DAILY, (Reported) Entered as Reported by: JOSE LUIS HUNTER on 12/11/20 1529 Furosemide (Furosemide) 40 Mg Tablet, 40 MG PO DAILY, (Reported) Entered as Reported by: ALECIA HERRERA on 10/17/18 1427 Hydralazine HCl (Hydralazine HCl) 25 Mg Tablet, 25 MG PO TID Prescribed by: ARAMIS ROD on 07/31/21 193 Insulin Detemir (Levemir Flextouch) 100 Unit/1 Ml Insuln.pen, 25 UNIT SQ BID, (Reported) Entered as Reported by: VALENTINA العلي on 10/11/19 1034 Isosorbide Mononitrate (Isosorbide Mononitrate ER) 120 Mg Tab.er.24h, 120 MG PO DAILY, (Reported) Entered as Reported by: RASHIDA CLAROS on 10/10/19 1238 Omeprazole (Omeprazole) 40 Mg Capsule.dr, 40 MG PO DAILY, (Reported) Entered as Reported by: JOSE LUIS HUNTER on 12/11/20 1529 Tamsulosin HCl (Flomax) 0.4 Mg Cap, 0.4 MG PO DAILY, (Reported) Entered as Reported by: RASHIDA CLAROS on 10/10/19 1238 Tramadol HCl (Tramadol HCl) 50 Mg Tablet, 50 MG PO TID, (Reported) Entered as Reported by: JOSE LUIS HUNTER on 12/11/20 1529 Review of Systems Review of Systems Constitutional: No chills, No fever EENTM: No Blurred Vision, No Double Vision Respiratory: Denies Cough, Denies Shortness of Air Cardiovascular: Denies Chest Pain, Denies Edema Gastrointestinal: See HPI; Denies Abdominal Pain; Constipated; Denies Nausea, Denies Vomiting Genitourinary: No Symptoms Reported Musculoskeletal: No back pain, No joint pain Skin: no symptoms reported Psychiatric/Neurological: Denies Headache, Denies Numbness Endocrine: No Symptoms Reported Hematologic/Lymphatic: No Symptoms Reported (TIFFANY ALARCON MED STUDENT) All Other Systems Reviewed Negative Unless Noted: Yes (Negative excepted noted.) (TIFFANY ALARCON MED STUDENT) Past Cqlulsw-Pucvuz-Goasgv Hx Immunizations Up To Date Tetanus Booster (TDap): Less than 5yrs First/Initial COVID19 Vaccinat: January COVID19 Vaccination Zoltan: January COVID19 Vaccination Date: JANUARY (TIFFANY ALARCON MED STUDENT) Seasonal Allergies Seasonal Allergies: No (TIFFANY ALARCON MED STUDENT) Past Medical History Surgery/Hospitalization HX: HOSPITALIZED 12/11-12/20/20 FOR COVID-19 AND DIVERTICULITIS. NO HYPOXIA AND NO SPECIFIC TREATMENT FOR COVID-19 AT THAT TIME. 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;DIVERTICULITIS-NO SURGERY) Diverticulosis, Gall Bladder Disease Musculoskeletal: No Endocrine: Yes (SELF MEDICATES WITH HIS INSULIN; OBESITY) Diabetes, Insulin dep HEENT: No (patient wears glasses ) Loss of Vision: Denies Hearing Impairment: Denies Cancer: No Psychosocial: No Integumentary: No Blood Disorders: No (TIFFANY ALARCON MED STUDENT) Family Medical History Cardiovascular disease 19 FATHER Hypertension 19 FATHER CAD Over 55 Years Old, Hypertension PAST SURGICAL HISTORY: -CARDIAC CATH 11/09/19--DIFFUSELY CALCIFIED CORONARY ARTERIES, SMALL VESSEL DISEASE, NO INTERVENTION - (TIFFANY ALARCON STUDENT) Physical Exam Vital Signs Vital Signs - First Documented 10/14/21 13:50 Temp 36.2 Pulse 83 Resp 18 B/P (MAP) 154/78 (103) Pulse Ox 94 O2 Delivery Room Air (ROGERS BRIGGS MD) Vital Signs Capillary Refill : (TIFFANY ALARCON STUDENT) Height/Weight/BMI Height: 5'7.00" Weight: 200lbs. oz. 90.234424nn; 40.00 BMI Method:Estimated General Appearance: WD/WN, no apparent distress Respiratory: lungs clear, normal breath sounds, no respiratory distress, no accessory muscle use Cardiovascular: regular rate, rhythm, no edema Gastrointestinal: non tender, soft; No distended, No guarding, No rebound Extremities: normal inspection, no pedal edema Neurologic/Psychiatric: no motor/sensory deficits, alert, normal mood/affect, oriented x 3 Skin: normal color, warm/dry Lymphatic: no adenopathy (TIFFANY ALARCON MED STUDENT) Progress/Results/Core Measures Results/Orders My Orders Orders - ROGERS BRIGGS MD Bisacodyl Suppository (Dulcolax Supposit (10/14/21 14:30) (ROGERS BRIGGS MD) Medications Given in ED (ROGERS BRIGGS MD) Vital Signs/I&O 10/14/21 10/14/21 13:50 15:33 Temp 36.2 Pulse 83 81 Resp 18 20 B/P (MAP) 154/78 (103) 168/87 Pulse Ox 94 95 O2 Delivery Room Air Room Air (ROGERS BRIGGS MD) Blood Pressure Mean: 103 Progress Progress Note : Time: 15:18 Progress Note 81-year-old male presents to the emergency department today with a chief complaint of abdominal with constipation. Patient states he has the urge to have a bowel movement but cannot. He was seen in the emergency department 3 days ago with similar complaints. He states he has had these constipation episodes ever since starting hydralazine for his blood pressure prescribed by his primary doctor. He states he has taken oral Dulcolax 3 tablets this morning without any relief. He is quite hesitant to take MiraLAX due to the effect on his kidney function and the packaging insert states do not take if you have a history of renal disease. Patient has not tried any nqhk-tmz-lkgocju Benefiber or other fiber supplements. He has not tried prunes, enemas or Dulcolax suppositories at home. When he was seen in the emergency department 3 days ago basic laboratory studies were obtained, he had a suppository at that time and subsequently had 2 bowel movements. Its been about 20 minutes since he had a suppository here. He still does not have the urge to go. He denies any fevers, chills, point tenderness in the abdomen. No blood in his stools. His last bowel movement was actually yesterday but he states it was too small for him to get any relief. No urinary complaints. No swelling in his legs. No shortness of breath. I discussed multiple options including suppositories at home, enemas, Benefiber and Metamucil. We discussed prune juice and dried prunes. He is amenable to starting these. I recommended close follow-up with Dr. Maddox. He verbalized understanding. All questions are sought and answered. Patient is not reimaged today. His KUB from 3 days ago did show moderate stool burden in the colon. Physical examination shows a nontender abdomen with normal bowel sounds. (ROGERS BRIGGS MD) Departure Impression Primary Impression: Constipation Qualified Codes: K59.00 - Constipation, unspecified Disposition: HOME, SELF-CARE Condition: Stable Departure-Patient Inst. Decision time for Depature: 15:21 (ROGERS BRIGGS MD) Referrals: BRADY MADDOX MD (PCP/Family) Primary Care Physician Patient Instructions: Constipation in Adults Add. Discharge Instructions: Try and increase your intake of water to help keep your stool soft. You can try fxjq-jgf-xmkhvkm Metamucil or Benefiber to help with your constipation. Other swpr-lhk-geajcgw alternatives include trying prune juice or dried prunes/plums, warm apple juice, vegetables (green leafy), fleets enemas, dulcolax suppositories, Benefiber or Metamucil as well as stool softeners such as Colace and Senokot. Return to the emergency department if you experience increasing abdominal pain especially with blood from your rectum, nausea or vomiting. Please call Dr. Maddox's office for a follow-up regarding your constipation over the last week. Verification and Attestation of Medical Student E/M Service A medical student performed and documented this service in my presence. I r eviewed and verified all information documented by the medical student and made modifications to such information, when appropriate. I personally performed the physical exam and medical decision making. Rogers Briggs, Oct 14, 2021,15:26 (ROGERS BRIGGS MD) Copy Copies To 1: BRADY MADDOX MD, CHRISTINE MED STUDENT Oct 14, 2021 14:23 ROGERS BRIGGS MD Oct 14, 2021 15:23
[2021-10-14] MEDS ORDERED: BISACODYL 10 MG SUPP (DULCOLAX) PR ONE (14:30)
[2021-10-14 15:33] VITALS: BP 168/87
== END 2021-10-14 15:33 | disposition home or self-care (01) ==
LOC: EDUNIT# 13:44 → ER 13:47
DX: K59.00 Constipation, unspecified (principal); I25.2 Old myocardial infarction; I10 Essential (primary) hypertension; I25.10 Atherosclerotic heart disease of native coronary artery without angina pectoris; E11.9 Type 2 diabetes mellitus without complications; Z79.4 Long term (current) use of insulin
CPT/HCPCS: 99281

== ENCOUNTER 2021-10-15 20:15 | Emergency (ER) | payer MEDICARE ==
[~2021-10-15] VITALS: Ht 170.2 cm; Wt 117.9 kg
--- NOTE | 2021-10-15 20:35 | ED General ---
General Stated Complaint: CONSTIPATION Source of Information: Patient Exam Limitations: No Limitations (CORTEZ CASTAÑEDA APRN) History of Present Illness Date Seen by Provider: Oct 15, 2021 Time Seen by Provider: 20:32 Initial Comments To ER with reports of constipation. He ate a sandwich for lunch and has not been able to have a bowel movement. He was here yesterday for the same thing given a suppository and sent home. He states that he did have a bowel movement yesterday. He is worried because he "just knows" that he will not have a bowel movement tomorrow either. He accidentally took double the dose of Metamucil and is worried about that. He states that he intends to go get some suppositories but he has no way to get to [facility]. He states that he had a taxi drive him tonight and I discussed that a taxi can also take him to [facility]. He denies any abdominal pain any nausea vomiting or pain anywhere. He is simply worried that he has not had a bowel movement since lunch. He refuses to use MiraLAX because "its nothing but ground up plastic" Timing/Duration: 4-6 Hours Severity: Moderate (CORTEZ CASTAÑEDA APRN) Allergies and Home Medications Allergies Coded Allergies: Sulfa (Sulfonamide Antibiotics) (Unverified Allergy, Unknown, 10/10/19) Patient Home Medication List Home Medication List Reviewed: Yes (CORTEZ CASTAÑEDA APRN) Amlodipine Besylate (Amlodipine Besylate) 10 Mg Tablet, 10 MG PO DAILY Prescribed by: MARIO SULLIVAN on 12/19/20 1239 Amoxicillin/Potassium Clav (Amox Tr-K Clv 875-125 mg Tab) 1 Each Tablet, 875 MG PO BID WITH MEALS Prescribed by: MARIO SULLIVAN on 12/19/20 1239 Carvedilol (Carvedilol) 12.5 Mg Tablet, 25 MG PO BID Prescribed by: MARIO SULLIVAN on 12/19/20 1239 Clonidine HCl (Clonidine HCl) 0.3 Mg Tablet, 0.3 MG PO BID Prescribed by: MARIO SULLIVAN on 12/20/20 1451 Finasteride (Finasteride) 5 Mg Tablet, 5 MG PO DAILY Prescribed by: MARIO SULLIVAN on 12/19/20 1239 Fluticasone Propionate (Fluticasone Propionate) 16 Gm [place].susp, 1 SPRAY NSEACH DAILY, (Reported) Entered as Reported by: JOSE LUIS HUNTER on 12/11/20 1529 Furosemide (Furosemide) 40 Mg Tablet, 40 MG PO DAILY, (Reported) Entered as Reported by: ALECIA HERRERA on 10/17/18 1427 Hydralazine HCl (Hydralazine HCl) 25 Mg Tablet, 25 MG PO TID Prescribed by: ARAMIS ROD on 07/31/21 193 Insulin Detemir (Levemir Flextouch) 100 Unit/1 Ml Insuln.pen, 25 UNIT SQ BID, (Reported) Entered as Reported by: VALENTINA العلي on 10/11/19 1034 Isosorbide Mononitrate (Isosorbide Mononitrate ER) 120 Mg Tab.er.24h, 120 MG PO DAILY, (Reported) Entered as Reported by: RASHIDA CLAROS on 10/10/19 1238 Omeprazole (Omeprazole) 40 Mg Capsule.dr, 40 MG PO DAILY, (Reported) Entered as Reported by: JOSE LUIS HUNTER on 12/11/20 1529 Tamsulosin HCl (Flomax) 0.4 Mg Cap, 0.4 MG PO DAILY, (Reported) Entered as Reported by: RASHIDA CLAROS on 10/10/19 1238 Tramadol HCl (Tramadol HCl) 50 Mg Tablet, 50 MG PO TID, (Reported) Entered as Reported by: JOSE LUIS HUNTER on 12/11/20 1529 Review of Systems Review of Systems Constitutional: see HPI EENTM: see HPI Respiratory: no symptoms reported Cardiovascular: no symptoms reported Gastrointestinal: No abdominal pain; constipation; No diarrhea Genitourinary: no symptoms reported Musculoskeletal: no symptoms reported Skin: no symptoms reported Psychiatric/Neurological: No Symptoms Reported Hematologic/Lymphatic: No Symptoms Reported Immunological/Allergic: no symptoms reported (CORTEZ CASTAÑEDA APRN) Past Mvctvdr-Qmetfm-Rrkjbu Hx Immunizations Up To Date Tetanus Booster (TDap): Less than 5yrs First/Initial COVID19 Vaccinat: January COVID19 Vaccination Zoltan: January COVID19 Vaccination Date: JANUARY (CORTEZ CASTAÑEDA APRN) Seasonal Allergies Seasonal Allergies: No (CORTEZ CASTAÑEDA APRN) Past Medical History Surgery/Hospitalization HX: HOSPITALIZED 12/11-12/20/20 FOR COVID-19 AND DIVERTICULITIS. NO HYPOXIA AND NO SPECIFIC TREATMENT FOR COVID-19 AT THAT TIME. 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;DIVERTICULITIS-NO SURGERY) Diverticulosis, Gall Bladder Disease Musculoskeletal: No Endocrine: Yes (SELF MEDICATES WITH HIS INSULIN; OBESITY) Diabetes, Insulin dep HEENT: No (patient wears glasses ) Loss of Vision: Denies Hearing Impairment: Denies Cancer: No Psychosocial: No Integumentary: No Blood Disorders: No (CORTEZ CASTAÑEDA APRN) Family Medical History Cardiovascular disease 19 FATHER Hypertension 19 FATHER CAD Over 55 Years Old, Hypertension PAST SURGICAL HISTORY: -CARDIAC CATH 11/09/19--DIFFUSELY CALCIFIED CORONARY ARTERIES, SMALL VESSEL DISEASE, NO INTERVENTION - (CORTEZ CASTAÑEDA APRN) Physical Exam Vital Signs Vital Signs - First Documented 10/15/21 10/15/21 20:22 21:30 Temp 36.3 Pulse 85 Resp 18 B/P (MAP) 151/83 (105) Pulse Ox 97 O2 Delivery Room Air (MADELINE,NOREEN K DO) Vital Signs Capillary Refill : (CORTEZ CASTAÑEDA APRN) Height, Weight, BMI Height: 5'7.00" Weight: 200lbs. oz. 90.826571ts; 40.00 BMI Method:Estimated General Appearance: No Apparent Distress, WD/WN, Obese Eyes: Bilateral Eye Normal Inspection, Bilateral Eye PERRL, Bilateral Eye EOMI Neck: Full Range of Motion, Normal Inspection Respiratory: No Accessory Muscle Use, No Respiratory Distress Cardiovascular: Regular Rate, Rhythm, Normal Peripheral Pulses Gastrointestinal: Normal Bowel Sounds, Non Tender, Soft Extremity: Normal Capillary Refill, Normal Inspection Neurologic/Psychiatric: Alert, Oriented x3 Skin: Normal Color, Warm/Dry (CORTEZ CASTAÑEDA APRN) Progress/Results/Core Measures Suspected Sepsis SIRS Temperature: Pulse: Respiratory Rate: Laboratory Tests 10/15/21 20:34: White Blood Count 11.5H Blood Pressure / Mean: Laboratory Tests 10/15/21 20:34: Creatinine 2.06H, Platelet Count 248, Total Bilirubin 0.4 (CORTEZ CASTAÑEDA APRN) Results/Orders Lab Results Laboratory Tests Test 10/15/21 20:34 Range/Units White Blood Count 11.5 H 4.3-11.0 10^3/uL Red Blood Count 4.51 4.30-5.52 10^6/uL Hemoglobin 13.6 13.3-17.7 g/dL Hematocrit 42 40-54 % Mean Corpuscular Volume 93 80-99 fL Mean Corpuscular Hemoglobin 30 25-34 pg Mean Corpuscular Hemoglobin Concent 33 32-36 g/dL Red Cell Distribution Width 13.2 10.0-14.5 % Platelet Count 248 130-400 10^3/uL Mean Platelet Volume 9.6 9.0-12.2 fL Immature Granulocyte % (Auto) 0 % Neutrophils (%) (Auto) 63 42-75 % Lymphocytes (%) (Auto) 24 12-44 % Monocytes (%) (Auto) 11 0-12 % Eosinophils (%) (Auto) 2 0-10 % Basophils (%) (Auto) 0 0-10 % Neutrophils # (Auto) 7.2 1.8-7.8 10^3/uL Lymphocytes # (Auto) 2.8 1.0-4.0 10^3/uL Monocytes # (Auto) 1.3 H 0.0-1.0 10^3/uL Eosinophils # (Auto) 0.2 0.0-0.3 10^3/uL Basophils # (Auto) 0.0 0.0-0.1 10^3/uL Immature Granulocyte # (Auto) 0.1 0.0-0.1 10^3/uL Sodium Level 135 135-145 MMOL/L Potassium Level 3.9 3.6-5.0 MMOL/L Chloride Level 100 98-107 MMOL/L Carbon Dioxide Level 25 21-32 MMOL/L Anion Gap 10 5-14 MMOL/L Blood Urea Nitrogen 20 H 7-18 MG/DL Creatinine 2.06 H 0.60-1.30 MG/DL Estimat Glomerular Filtration Rate 31 BUN/Creatinine Ratio 10 Glucose Level 176 H 70-105 MG/DL Calcium Level 8.5 8.5-10.1 MG/DL Corrected Calcium 8.9 8.5-10.1 MG/DL Total Bilirubin 0.4 0.1-1.0 MG/DL Aspartate Amino Transf (AST/SGOT) 18 5-34 U/L Alanine Aminotransferase (ALT/SGPT) 14 0-55 U/L Alkaline Phosphatase 68 40-136 U/L Total Protein 7.3 6.4-8.2 GM/DL Albumin 3.5 3.2-4.5 GM/DL (COLE CORREAA Sandra MANUEL) Medications Given in ED Current Medications Medications Dose Ordered Sig/Laya Route Start Time Stop Time Status Last Admin Dose Admin Bisacodyl 10 mg ONCE ONCE TN 10/15/21 21:00 10/15/21 21:01 DC 10/15/21 21:26 10 MG (NOREEN CORREA DO) Vital Signs/I&O 10/15/21 10/15/21 20:22 21:30 Temp 36.3 Pulse 85 80 Resp 18 16 B/P (MAP) 151/83 (105) 163/90 Pulse Ox 97 O2 Delivery Room Air (NOREEN CORREA DO) Vital Signs/I&O Capillary Refill : (CORTEZ CASTAÑEDA APRN) Departure Communication (Admissions) I attempted to give him a fleets enema here, he states he does not want he only wants a suppository. He agrees to take the fleets enema home with him in case he has recurrent issues and he will try this. (CORTEZ CASTAÑEDA APRN) Impression Primary Impression: Constipation Disposition: HOME, SELF-CARE Condition: Stable Departure-Patient Inst. Decision time for Depature: 20:49 (CORTEZ CASTAÑEDA APRN) Referrals: BRADY VERNON MD (PCP/Family) Primary Care Physician Patient Instructions: Constipation in Adults ATTENDING PHYSICIAN NOTE: I WAS PHYSICALLY PRESENT ER PHYSICIAN WHEN THIS PATIENT WAS IN ER, BUT I WAS NOT INVOLVED IN ANY DECISION MAKING OR ANY CARE OF THIS PATIENT. (NOREEN CORREA DO) CORTEZ CASTAÑEDA APRN Oct 15, 2021 20:35 NOREEN CORREA DO Oct 16, 2021 05:10
[2021-10-15 20:40] LABS: BASOPHILS % (AUTO) 0 % (0-10); EOSINOPHILS # (AUTO) 0.2 10^3/uL (0.0-0.3); EOSINOPHILS % (AUTO) 2 % (0-10); HEMATOCRIT 42 % (40-54); HEMOGLOBIN 13.6 g/dL (13.3-17.7); LYMPHOCYTES # (AUTO) 2.8 10^3/uL (1.0-4.0); LYMPHOCYTES % (AUTO) 24 % (12-44); MEAN CORPUSCULAR HEMOGLOBIN 30 pg (25-34); MEAN CORPUSCULAR HGB CONC 33 g/dL (32-36); MEAN CORPUSCULAR VOLUME 93 fL (80-99); MEAN PLATELET VOLUME 9.6 fL (9.0-12.2); MONOCYTES # (AUTO) 1.3 10^3/uL (0.0-1.0); MONOCYTES % (AUTO) 11 % (0-12); NEUTROPHILS # (AUTO) 7.2 10^3/uL (1.8-7.8); NEUTROPHILS % (AUTO) 63 % (42-75); PLATELET COUNT 248 10^3/uL (130-400); WHITE BLOOD COUNT 11.5 10^3/uL (4.3-11.0)
[2021-10-15 20:52] LABS: ALBUMIN 3.5 GM/DL (3.2-4.5); POTASSIUM 3.9 MMOL/L (3.6-5.0)
[2021-10-15 20:54] LABS: CALCIUM 8.5 MG/DL (8.5-10.1)
[2021-10-15 20:55] LABS: TOTAL PROTEIN 7.3 GM/DL (6.4-8.2)
[2021-10-15 20:57] LABS: BILIRUBIN,TOTAL 0.4 MG/DL (0.1-1.0)
[2021-10-15 20:58] LABS: CREATININE SERUM 2.06 MG/DL (0.60-1.30)
[2021-10-15] MEDS ORDERED: FLEET ENEMA ADULT 1 EA BTL PR ONE (21:00)
[2021-10-15] MEDS ORDERED: BISACODYL 10 MG SUPP (DULCOLAX) PR ONE (21:00)
--- NOTE | 2021-10-15 21:06 | Diagnostic Imaging Report ---
INDICATION: Constipation Frontal chest and supine and upright abdominal films obtained at 0848 p.m. and compared to 10/11/2021. Single view of the chest shows no acute infiltrate or pneumothorax or pleural fluid. There is no free intraperitoneal air. The abdominal bowel gas pattern is nonspecific. There is no overt bowel obstruction. There is moderate stool throughout the colon. Foreign body over the right upper quadrant appears similar in position compared to the prior study. IMPRESSION: No sign of free air or bowel obstruction. Moderate stool in the colon. Foreign body overlying the right side of the abdomen is without significant change from the prior study. Dictated by: Dictated on workstation # [id number]
[2021-10-15 21:30] VITALS: BP 163/90
== END 2021-10-15 21:30 | disposition home or self-care (01) ==
LOC: EDUNIT# 20:15 → ER 20:16
DX: K59.00 Constipation, unspecified (principal); I25.2 Old myocardial infarction; I10 Essential (primary) hypertension; E66.9 Obesity, unspecified; E11.9 Type 2 diabetes mellitus without complications; I25.10 Atherosclerotic heart disease of native coronary artery without angina pectoris; Z68.41 Body mass index [BMI] 40.0-44.9, adult; Z79.4 Long term (current) use of insulin; Z79.899 Other long term (current) drug therapy
CPT/HCPCS: 36415; 74022; 80053; 85025

== ENCOUNTER 2021-10-22 17:18 | Emergency (ER) | payer MEDICARE ==
[~2021-10-22] VITALS: Ht 170 cm; Wt 116.3 kg
--- NOTE | 2021-10-22 17:38 | ED GI ---
General Chief Complaint: Abdominal/GI Problems Stated Complaint: CONSTIPATION Source of Information: Patient Exam Limitations: No Limitations (CORTEZ CASTAÑEDA APRN) History of Present Illness Date Seen by Provider: Oct 22, 2021 Time Seen by Provider: 17:34 Initial Comments To ER with constipation. He has not had a bowel movement since yesterday or maybe the day before, he cannot remember. He denies any abdominal pain or rectal pain or vomiting. He is just worried that this will result in him not going and further constipation. He has been using Metamucil at home. He is s cared to use MiraLAX because on the bottle it says not to use it if you have any kidney dysfunction. He has quite a lot of anxiety not well controlled. Timing/Duration: 1-2 Days Severity/Quality: Moderate Radiation: No Radiation Activities at Onset: None (CORTEZ CASTAÑEDA APRN) Allergies and Home Medications Allergies Coded Allergies: Sulfa (Sulfonamide Antibiotics) (Unverified Allergy, Unknown, 10/10/19) Patient Home Medication List Home Medication List Reviewed: Yes (CORTEZ CASTAÑEDA APRN) Amlodipine Besylate (Amlodipine Besylate) 10 Mg Tablet, 10 MG PO DAILY Prescribed by: MARIO SULLIVAN on 12/19/20 1239 Amoxicillin/Potassium Clav (Amox Tr-K Clv 875-125 mg Tab) 1 Each Tablet, 875 MG PO BID WITH MEALS Prescribed by: MARIO SULLIVAN on 12/19/20 1239 Carvedilol (Carvedilol) 12.5 Mg Tablet, 25 MG PO BID Prescribed by: MARIO SULLIVAN on 12/19/20 1239 Clonidine HCl (Clonidine HCl) 0.3 Mg Tablet, 0.3 MG PO BID Prescribed by: MARIO SULLIVAN on 12/20/20 1451 Finasteride (Finasteride) 5 Mg Tablet, 5 MG PO DAILY Prescribed by: MARIO SULLIVAN on 12/19/20 1239 Fluticasone Propionate (Fluticasone Propionate) 16 Gm [place].susp, 1 SPRAY NSEACH DAILY, (Reported) Entered as Reported by: JOSE LUIS HUNTER on 12/11/20 1529 Furosemide (Furosemide) 40 Mg Tablet, 40 MG PO DAILY, (Reported) Entered as Reported by: ALECIA HERRERA on 10/17/18 1427 Hydralazine HCl (Hydralazine HCl) 25 Mg Tablet, 25 MG PO TID Prescribed by: ARAMIS ROD on 07/31/21 193 Insulin Detemir (Levemir Flextouch) 100 Unit/1 Ml Insuln.pen, 25 UNIT SQ BID, (Reported) Entered as Reported by: VALENTINA العلي on 10/11/19 1034 Isosorbide Mononitrate (Isosorbide Mononitrate ER) 120 Mg Tab.er.24h, 120 MG PO DAILY, (Reported) Entered as Reported by: RASHIDA CLAROS on 10/10/19 1238 Omeprazole (Omeprazole) 40 Mg Capsule.dr, 40 MG PO DAILY, (Reported) Entered as Reported by: JOSE LUIS HUNTER on 12/11/20 1529 Tamsulosin HCl (Flomax) 0.4 Mg Cap, 0.4 MG PO DAILY, (Reported) Entered as Reported by: RASHIDA CLAROS on 10/10/19 1238 Tramadol HCl (Tramadol HCl) 50 Mg Tablet, 50 MG PO TID, (Reported) Entered as Reported by: JOSE LUIS HUNTER on 12/11/20 1529 Review of Systems Review of Systems Constitutional: see HPI EENTM: No Symptoms Reported Respiratory: No Symptoms Reported Gastrointestinal: See HPI, Constipated Genitourinary: No Symptoms Reported Musculoskeletal: no symptoms reported Skin: no symptoms reported Psychiatric/Neurological: No Symptoms Reported Endocrine: No Symptoms Reported Hematologic/Lymphatic: No Symptoms Reported (CORTEZ CASTAÑEDA APRN) Past Oyafcyq-Peeddb-Khflyy Hx Immunizations Up To Date Tetanus Booster (TDap): Less than 5yrs First/Initial COVID19 Vaccinat: January 2021 Second COVID19 Vaccination Zoltan: February 2021 Third COVID19 Vaccination Date: JANUARY (CORTEZ CASTAÑEDA APRN) Seasonal Allergies Seasonal Allergies: No (CORTEZ CASTAÑEDA APRN) Past Medical History Surgery/Hospitalization HX: HOSPITALIZED 12/11-12/20/20 FOR COVID-19 AND DIVERTICULITIS. NO HYPOXIA AND NO SPECIFIC TREATMENT FOR COVID-19 AT THAT TIME. 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;DIVERTICULITIS-NO SURGERY) Diverticulosis, Gall Bladder Disease Musculoskeletal: No Endocrine: Yes (SELF MEDICATES WITH HIS INSULIN; OBESITY) Diabetes, Insulin dep HEENT: No (patient wears glasses ) Loss of Vision: Denies Hearing Impairment: Denies Cancer: No Psychosocial: No Integumentary: No Blood Disorders: No (CORTEZ CASTAÑEDA APRN) Family Medical History Cardiovascular disease 19 FATHER Hypertension 19 FATHER CAD Over 55 Years Old, Hypertension PAST SURGICAL HISTORY: -CARDIAC CATH 11/09/19--DIFFUSELY CALCIFIED CORONARY ARTERIES, SMALL VESSEL DISEASE, NO INTERVENTION - (CORTEZ CASTAÑEDA APRN) Physical Exam Vital Signs Vital Signs - First Documented 10/22/21 17:25 Temp 36.4 Pulse 83 Resp 16 B/P (MAP) 133/80 (97) Pulse Ox 93 O2 Delivery Room Air (ARAMIS CHAMORRO MD) Vital Signs Capillary Refill : (CORTEZ CASTAÑEDA APRN) Height/Weight/BMI Height: 5'7.00" Weight: 200lbs. oz. 90.631144cs; 40.00 BMI Method:Estimated General Appearance: WD/WN, no apparent distress, other (Anxious) Respiratory: normal breath sounds, no respiratory distress, no accessory muscle use Cardiovascular: regular rate, rhythm, no murmur Gastrointestinal: normal bowel sounds, non tender, soft, other (Bowel sounds are normal) Extremities: normal range of motion, non-tender Neurologic/Psychiatric: alert, normal mood/affect, oriented x 3 Skin: normal color, warm/dry (CORTEZ CASTAÑEDA APRN) Progress/Results/Core Measures Results/Orders Medications Given in ED Current Medications Medications Dose Ordered Sig/Laya Route Start Time Stop Time Status Last Admin Dose Admin Bisacodyl 10 mg ONCE ONCE [place] 10/22/21 17:45 10/22/21 17:46 DC 10/22/21 17:45 10 MG (ARAMIS CHAMORRO MD) Vital Signs/I&O 10/22/21 10/22/21 17:25 17:57 Temp 36.4 36.4 Pulse 83 83 Resp 16 16 B/P (MAP) 133/80 (97) 133/80 Pulse Ox 93 93 O2 Delivery Room Air Room Air (ARAMIS CHAMORRO MD) Departure Communication (Admissions) He would like for us to show him how to insert a suppository. I discussed with him the need to take MiraLAX because he states that when he does take it it works. He is worried about kidney function. I discussed with him that any laxative can dehydrate you and worsen kidney dysfunction so it is important to drink plenty of fluids which will in and of itself help with his constipation. (CORTEZ CASTAÑEDA APRN) Impression Primary Impression: Anxiety Additional Impression: Constipation Disposition: 01 HOME, SELF-CARE Condition: Stable Departure-Patient Inst. Decision time for Depature: 17:36 (CORTEZ CASTAÑEDA APRN) Referrals: BRADY VERNON MD (PCP/Family) Primary Care Physician Patient Instructions: Constipation, Adult (DC) Add. Discharge Instructions: Take 1 capful of MiraLAX dissolved in a bottle of water daily. Continue with your current amount of water daily. All discharge instructions reviewed with patient and/or family. Voiced understanding. ATTENDING PHYSICIAN NOTE: I was physically present as attending physician in the emergency department during the care of this patient, but I was not directly involved in the decision making or delivery of care for this patient. (ARAMIS CHAMORRO MD) Copy Copies To 1: BRADY VERNON MD, PETER J APRN Oct 22, 2021 17:37 ARAMIS CHAMORRO MD Oct 22, 2021 18:29
[2021-10-22] MEDS ORDERED: BISACODYL 10 MG SUPP (DULCOLAX) PR ONE (17:45)
[2021-10-22 17:57] VITALS: BP 133/80
== END 2021-10-22 17:50 | disposition home or self-care (01) ==
LOC: EDUNIT# 17:18 → ER 17:19
DX: K59.00 Constipation, unspecified (principal); F41.9 Anxiety disorder, unspecified; E11.22 Type 2 diabetes mellitus with diabetic chronic kidney disease; N18.30 Chronic kidney disease, stage 3 unspecified; E11.42 Type 2 diabetes mellitus with diabetic polyneuropathy; I12.9 Hypertensive chronic kidney disease with stage 1 through stage 4 chronic kidney disease, or unspecified chronic kidney disease; I25.2 Old myocardial infarction; I25.10 Atherosclerotic heart disease of native coronary artery without angina pectoris; E66.9 Obesity, unspecified; Z79.4 Long term (current) use of insulin; Z86.16 Personal history of COVID-19; Z95.9 Presence of cardiac and vascular implant and graft, unspecified; Z88.2 Allergy status to sulfonamides; Z79.51 Long term (current) use of inhaled steroids; Z79.899 Other long term (current) drug therapy
CPT/HCPCS: 99283

== ENCOUNTER 2021-12-04 09:31 | Emergency (ER) | payer MEDICARE ==
[~2021-12-04] VITALS: Ht 172 cm; Wt 120.9 kg
--- NOTE | 2021-12-04 10:54 | ED Abdominal Pain ---
General Chief Complaint: Abdominal/GI Problems Stated Complaint: CONSTIPATION Nursing Triage Note: AMB TO ROOM RPORTS IS CONSTIPATION MIRLAX NOT HELPING THINKS HE NEEDS A SUPPOSITORY. WAS TOLD MY PCP TO COME TO ED. ABD SOFT History of Present Illness Date Seen by Provider: Dec 04, 2021 Time Seen by Provider: 09:55 Initial Comments 81 yr M with PMH of HTN/ DM, is here with c/o constipation for the past 4 days. Last bowel movement was 4 days ago with feeling gassy. It is NOT associated with abdominal pain, fever, nausea, vomiting, hematemsis, melena, chest pain, indigestion, acid reflux, dysuria, diarrhea, dizziness. Pt takes Dulcolax, and OTC Metamucil at home once in awhile, and is not consistent with it. He used to be on Miralax and reports stopping it due to his worsening kidney function. Now he only takes it if he has constipation for a couple of days. He took one Miralax tablet today morning at 4 AM but it did not help. Pt also used a Docusate suppository at home, but states not putting it in properly, and now wants a suppository in the ER to ensure proper placement. Pt gets his meals from [employer], and lives alone. He has not had any appetite changes. Pt reports to drinking 64 oz of water a day. Timing/Duration: 3-4 Days Allergies and Home Medications Allergies Coded Allergies: Sulfa (Sulfonamide Antibiotics) (Unverified Allergy, Unknown, 10/10/19) Patient Home Medication List Home Medication List Reviewed: Yes Amlodipine Besylate (Amlodipine Besylate) 10 Mg Tablet, 10 MG PO DAILY Prescribed by: MARIO SULLIVAN on 12/19/20 1239 Amoxicillin/Potassium Clav (Amox Tr-K Clv 875-125 mg Tab) 1 Each Tablet, 875 MG PO BID WITH MEALS Prescribed by: MARIO SULLIVAN on 12/19/20 1239 Carvedilol (Carvedilol) 12.5 Mg Tablet, 25 MG PO BID Prescribed by: MARIO SULLIVAN on 12/19/20 1239 Clonidine HCl (Clonidine HCl) 0.3 Mg Tablet, 0.3 MG PO BID Prescribed by: MARIO SULLIVAN on 12/20/20 1451 Finasteride (Finasteride) 5 Mg Tablet, 5 MG PO DAILY Prescribed by: MARIO SULLIVAN on 12/19/20 1239 Fluticasone Propionate (Fluticasone Propionate) 16 Gm [place].susp, 1 SPRAY NSEACH DAILY, (Reported) Entered as Reported by: JOSE LUIS HUNTER on 12/11/20 1529 Furosemide (Furosemide) 40 Mg Tablet, 40 MG PO DAILY, (Reported) Entered as Reported by: ALECIA HERRERA on 10/17/18 1427 Hydralazine HCl (Hydralazine HCl) 25 Mg Tablet, 25 MG PO TID Prescribed by: ARAMIS ROD on 07/31/21 193 Insulin Detemir (Levemir Flextouch) 100 Unit/1 Ml Insuln.pen, 25 UNIT SQ BID, (Reported) Entered as Reported by: VALENTINA العلي on 10/11/19 1034 Isosorbide Mononitrate (Isosorbide Mononitrate ER) 120 Mg Tab.er.24h, 120 MG PO DAILY, (Reported) Entered as Reported by: RASHIDA CLAROS on 10/10/19 1238 Omeprazole (Omeprazole) 40 Mg Capsule.dr, 40 MG PO DAILY, (Reported) Entered as Reported by: JOSE LUIS HUNTER on 12/11/20 1529 Tamsulosin HCl (Flomax) 0.4 Mg Cap, 0.4 MG PO DAILY, (Reported) Entered as Reported by: RASHIDA CLAROS on 10/10/19 1238 Tramadol HCl (Tramadol HCl) 50 Mg Tablet, 50 MG PO TID, (Reported) Entered as Reported by: JOSE LUIS HUNTER on 12/11/20 1529 Review of Systems Review of Systems Constitutional: no symptoms reported Respiratory: No Symptoms Reported Cardiovascular: No Symptoms Reported Gastrointestinal: Constipated All Other Systems Reviewed Negative Unless Noted: Yes Past Ljtjnge-Gzperb-Vbqjzu Hx Patient Social History Tobacco Use?: No Use of E-Cig and/or Vaping dev: No Substance use?: No Immunizations Up To Date Tetanus Booster (TDap): Less than 5yrs First/Initial COVID19 Vaccinat: January COVID19 Vaccination Zoltan: February COVID19 Vaccination Date: JANUARY COVID Vaccine Placement Specialist: YUMIKO Seasonal Allergies Seasonal Allergies: No Past Medical History Surgery/Hospitalization HX: HOSPITALIZED 12/11-12/20/20 FOR COVID-19 AND DIVERTICULITIS. NO HYPOXIA AND NO SPECIFIC TREATMENT FOR COVID-19 AT THAT TIME. 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;DIVERTICULITIS-NO SURGERY) Diverticulosis, Gall Bladder Disease Musculoskeletal: No Endocrine: Yes (SELF MEDICATES WITH HIS INSULIN; OBESITY) Diabetes, Insulin dep HEENT: No (patient wears glasses ) Loss of Vision: Denies Hearing Impairment: Denies Cancer: No Psychosocial: No Integumentary: No Blood Disorders: No Family Medical History Cardiovascular disease 19 FATHER Hypertension 19 FATHER CAD Over 55 Years Old, Hypertension PAST SURGICAL HISTORY: -CARDIAC CATH 11/09/19--DIFFUSELY CALCIFIED CORONARY ARTERIES, SMALL VESSEL DISEASE, NO INTERVENTION - Physical Exam Vital Signs Vital Signs - First Documented 12/04/21 09:34 Temp 35.6 Pulse 95 Resp 20 B/P (MAP) 167/85 (112) Pulse Ox 93 O2 Delivery Room Air Capillary Refill : Less Than 3 Seconds Height/Weight/BMI Height: 5'7.00" Weight: 200lbs. oz. 90.449952um; 40.00 BMI Method:Estimated General Appearance: WD/WN, no apparent distress HEENT: PERRL/EOMI Respiratory: chest non-tender, lungs clear, normal breath sounds, no respiratory distress, no accessory muscle use Cardiovascular: regular rate, rhythm, no edema, no murmur Gastrointestinal: normal bowel sounds, non tender, soft, no organomegaly, no pulsatile mass Extremities: no pedal edema Back: no CVA tenderness, no vertebral tenderness Neurologic/Psychiatric: alert, normal mood/affect, oriented x 3 Progress/Results/Core Measures Results/Orders Lab Results Laboratory Tests Test 12/04/21 11:17 Range/Units White Blood Count 9.6 4.3-11.0 10^3/uL Red Blood Count 4.14 L 4.30-5.52 10^6/uL Hemoglobin 12.4 L 13.3-17.7 g/dL Hematocrit 40 40-54 % Mean Corpuscular Volume 95 80-99 fL Mean Corpuscular Hemoglobin 30 25-34 pg Mean Corpuscular Hemoglobin Concent 31 L 32-36 g/dL Red Cell Distribution Width 13.2 10.0-14.5 % Platelet Count 249 130-400 10^3/uL Mean Platelet Volume 9.8 9.0-12.2 fL Immature Granulocyte % (Auto) 0 % Neutrophils (%) (Auto) 73 42-75 % Lymphocytes (%) (Auto) 13 12-44 % Monocytes (%) (Auto) 10 0-12 % Eosinophils (%) (Auto) 2 0-10 % Basophils (%) (Auto) 0 0-10 % Neutrophils # (Auto) 7.0 1.8-7.8 10^3/uL Lymphocytes # (Auto) 1.3 1.0-4.0 10^3/uL Monocytes # (Auto) 1.0 0.0-1.0 10^3/uL Eosinophils # (Auto) 0.2 0.0-0.3 10^3/uL Basophils # (Auto) 0.0 0.0-0.1 10^3/uL Immature Granulocyte # (Auto) 0.0 0.0-0.1 10^3/uL Sodium Level 138 135-145 MMOL/L Potassium Level 4.3 3.6-5.0 MMOL/L Chloride Level 103 98-107 MMOL/L Carbon Dioxide Level 25 21-32 MMOL/L Anion Gap 10 5-14 MMOL/L Blood Urea Nitrogen 35 H 7-18 MG/DL Creatinine 2.34 H 0.60-1.30 MG/DL Estimat Glomerular Filtration Rate 27 BUN/Creatinine Ratio 15 Glucose Level 208 H 70-105 MG/DL Calcium Level 8.5 8.5-10.1 MG/DL Corrected Calcium 9.1 8.5-10.1 MG/DL Total Bilirubin 0.7 0.1-1.0 MG/DL Aspartate Amino Transf (AST/SGOT) 27 5-34 U/L Alanine Aminotransferase (ALT/SGPT) 28 0-55 U/L Alkaline Phosphatase 86 40-136 U/L Total Protein 7.6 6.4-8.2 GM/DL Albumin 3.3 3.2-4.5 GM/DL My Orders Orders - QI MENCHACA MD Glycerin Adult Suppository (Glycerin Robson (12/04/21 12:15) Vital Signs/I&O 12/04/21 09:34 Temp 35.6 Pulse 95 Resp 20 B/P (MAP) 167/85 (112) Pulse Ox 93 O2 Delivery Room Air Blood Pressure Mean: 112 Progress Progress Note : Progress Note 1. CONSTIPATION & MILD DEHYDRATION: - KUB shows mild constipation without obstruction - CBC: unremarkable - CMP: BUN and creatinine hovers around baseline with slight elevation. May be due to mild dehydration versus worsening kidney function. Pt is able to drink water orally without any issues, and does not appear to have any signs of fluid overload. - Pt drinks 64 oz of water per day usually - Glycerin suppository STAT in ER - Advised high fiber diet, adequate water intake, and continue constipation medication as directed by PCP. - F/u with PCP within 3 to 5 days - Advised to return to ER if pt continues to have constipation, or develops abdominal pain, vomiting, fever. Departure Impression Primary Impression: Constipation Qualified Codes: K59.00 - Constipation, unspecified Additional Impression: Mild dehydration Disposition: HOME, SELF-CARE Condition: Stable Departure-Patient Inst. Decision time for Depature: 12:00 Referrals: BRADY VERNON MD (PCP/Family) Primary Care Physician Patient Instructions: Constipation, Adult ED Add. Discharge Instructions: F/u with PCP in 3 to 5 days - Ensure adequate hydration and high fiber diet All discharge instructions reviewed with patient and/or family. Voiced understanding. QI MENCHACA MD Dec 04, 2021 10:54
[2021-12-04 11:25] LABS: BASOPHILS % (AUTO) 0 % (0-10); EOSINOPHILS # (AUTO) 0.2 10^3/uL (0.0-0.3); EOSINOPHILS % (AUTO) 2 % (0-10); HEMATOCRIT 40 % (40-54); HEMOGLOBIN 12.4 g/dL (13.3-17.7); LYMPHOCYTES # (AUTO) 1.3 10^3/uL (1.0-4.0); LYMPHOCYTES % (AUTO) 13 % (12-44); MEAN CORPUSCULAR HEMOGLOBIN 30 pg (25-34); MEAN CORPUSCULAR HGB CONC 31 g/dL (32-36); MEAN CORPUSCULAR VOLUME 95 fL (80-99); MEAN PLATELET VOLUME 9.8 fL (9.0-12.2); MONOCYTES % (AUTO) 10 % (0-12); NEUTROPHILS % (AUTO) 73 % (42-75); PLATELET COUNT 249 10^3/uL (130-400); WHITE BLOOD COUNT 9.6 10^3/uL (4.3-11.0)
[2021-12-04 11:38] LABS: ALBUMIN 3.3 GM/DL (3.2-4.5); POTASSIUM 4.3 MMOL/L (3.6-5.0)
[2021-12-04 11:39] LABS: CALCIUM 8.5 MG/DL (8.5-10.1)
[2021-12-04 11:41] LABS: TOTAL PROTEIN 7.6 GM/DL (6.4-8.2)
[2021-12-04 11:42] LABS: BILIRUBIN,TOTAL 0.7 MG/DL (0.1-1.0)
[2021-12-04 11:44] LABS: CREATININE SERUM 2.34 MG/DL (0.60-1.30)
[2021-12-04] MEDS ORDERED: GLYCERIN ADULT SUPPOSITORY PR ONE (12:15)
--- NOTE | 2021-12-04 12:17 | Diagnostic Imaging Report ---
INDICATION: Abdominal pain, constipation. FINDINGS: Two views of the abdomen demonstrate mild constipation without obstruction or ileus. There is no large pocket of free air. Osseous structures are stable. IMPRESSION: Mild constipation. Dictated by: Dictated on workstation # [id number]
[2021-12-04 13:51] VITALS: BP 152/71
== END 2021-12-04 13:52 | disposition home or self-care (01) ==
LOC: EDUNIT# 09:31 → ER 09:32
DX: K59.00 Constipation, unspecified (principal); E86.0 Dehydration; I25.2 Old myocardial infarction; I10 Essential (primary) hypertension; I25.10 Atherosclerotic heart disease of native coronary artery without angina pectoris; E11.9 Type 2 diabetes mellitus without complications; Z79.4 Long term (current) use of insulin; Z79.899 Other long term (current) drug therapy
CPT/HCPCS: 36415; 74018; 80053; 85025

== ENCOUNTER 2021-12-09 17:20 | Emergency (ER) | payer MEDICARE ==
--- NOTE | 2021-12-09 17:26 | ED GI ---
General Chief Complaint: Abdominal/GI Problems Stated Complaint: CONSTIPATION Source of Information: Patient Exam Limitations: No Limitations History of Present Illness Date Seen by Provider: Dec 09, 2021 Time Seen by Provider: 17:24 Initial Comments To ER by EMS with reports of constipation. No bowel movement in almost 48 hours. He is just worried that he will suffer something terrible if he does not have a bowel movement regularly. Has no rectal pain or indication of fecal impaction no nausea no vomiting no abdominal pain. He states he just needs a suppository and a ride home. Timing/Duration: 1-2 Days Severity/Quality: Moderate Location: Generalized Abdomen Radiation: No Radiation Activities at Onset: None Associated Symptoms: Denies Symptoms Allergies and Home Medications Allergies Coded Allergies: Sulfa (Sulfonamide Antibiotics) (Unverified Allergy, Unknown, 10/10/19) Patient Home Medication List Home Medication List Reviewed: Yes Amlodipine Besylate (Amlodipine Besylate) 10 Mg Tablet, 10 MG PO DAILY Prescribed by: MARIO SULLIVAN on 12/19/20 1239 Amoxicillin/Potassium Clav (Amox Tr-K Clv 875-125 mg Tab) 1 Each Tablet, 875 MG PO BID WITH MEALS Prescribed by: MARIO SULLIVAN on 12/19/20 1239 Carvedilol (Carvedilol) 12.5 Mg Tablet, 25 MG PO BID Prescribed by: MARIO SULLIVAN on 12/19/20 1239 Clonidine HCl (Clonidine HCl) 0.3 Mg Tablet, 0.3 MG PO BID Prescribed by: MARIO SULLIVAN on 12/20/20 1451 Finasteride (Finasteride) 5 Mg Tablet, 5 MG PO DAILY Prescribed by: MARIO SULLIVAN on 12/19/20 1239 Fluticasone Propionate (Fluticasone Propionate) 16 Gm [place].susp, 1 SPRAY NSEACH DAILY, (Reported) Entered as Reported by: JOSE LUIS HUNTER on 12/11/20 1529 Furosemide (Furosemide) 40 Mg Tablet, 40 MG PO DAILY, (Reported) Entered as Reported by: ALECIA HERRERA on 10/17/18 1427 Hydralazine HCl (Hydralazine HCl) 25 Mg Tablet, 25 MG PO TID Prescribed by: ARAMIS ROD on 07/31/21 1937 Insulin Detemir (Levemir Flextouch) 100 Unit/1 Ml Insuln.pen, 25 UNIT SQ BID, (Reported) Entered as Reported by: VALENTINA العلي on 10/11/19 1034 Isosorbide Mononitrate (Isosorbide Mononitrate ER) 120 Mg Tab.er.24h, 120 MG PO DAILY, (Reported) Entered as Reported by: RASHIDA CLAROS on 10/10/19 1238 Omeprazole (Omeprazole) 40 Mg Capsule.dr, 40 MG PO DAILY, (Reported) Entered as Reported by: JOSE LUIS HUNTER on 12/11/20 1529 Tamsulosin HCl (Flomax) 0.4 Mg Cap, 0.4 MG PO DAILY, (Reported) Entered as Reported by: RASHIDA CLAROS on 10/10/19 1238 Tramadol HCl (Tramadol HCl) 50 Mg Tablet, 50 MG PO TID, (Reported) Entered as Reported by: JOSE LUIS HUNTER on 12/11/20 1529 Review of Systems Review of Systems Constitutional: see HPI EENTM: No Symptoms Reported Respiratory: No Symptoms Reported Cardiovascular: No Symptoms Reported Gastrointestinal: No Symptoms Reported Genitourinary: No Symptoms Reported Musculoskeletal: no symptoms reported Skin: no symptoms reported Psychiatric/Neurological: No Symptoms Reported Endocrine: No Symptoms Reported Hematologic/Lymphatic: No Symptoms Reported Past Xydnync-Kwfwdc-Uqelmy Hx Immunizations Up To Date Tetanus Booster (TDap): Less than 5yrs First/Initial COVID19 Vaccinat: January COVID19 Vaccination Zoltan: February COVID19 Vaccination Date: JANUARY Seasonal Allergies Seasonal Allergies: No Past Medical History Surgery/Hospitalization HX: HOSPITALIZED 12/11-12/20/20 FOR COVID-19 AND DIVERTICULITIS. NO HYPOXIA AND NO SPECIFIC TREATMENT FOR COVID-19 AT THAT TIME. 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;DIVERTICULITIS-NO SURGERY) Diverticulosis, Gall Bladder Disease Musculoskeletal: No Endocrine: Yes (SELF MEDICATES WITH HIS INSULIN; OBESITY) Diabetes, Insulin dep HEENT: No (patient wears glasses ) Loss of Vision: Denies Hearing Impairment: Denies Cancer: No Psychosocial: No Integumentary: No Blood Disorders: No Family Medical History Cardiovascular disease 19 FATHER Hypertension 19 FATHER CAD Over 55 Years Old, Hypertension PAST SURGICAL HISTORY: -CARDIAC CATH 11/09/19--DIFFUSELY CALCIFIED CORONARY ARTERIES, SMALL VESSEL DISEASE, NO INTERVENTION - Physical Exam Vital Signs Capillary Refill : Height/Weight/BMI Height: 5'7.00" Weight: 200lbs. oz. 90.911608it; 40.00 BMI Method:Estimated General Appearance: WD/WN, no apparent distress, other (Alert and oriented no distress abdomen round soft nontender bowel sounds normal.) HEENT: PERRL/EOMI, normal ENT inspection Respiratory: no respiratory distress, no accessory muscle use Gastrointestinal: normal bowel sounds, non tender, soft Extremities: normal range of motion, non-tender Neurologic/Psychiatric: alert, normal mood/affect, oriented x 3 Skin: normal color, warm/dry Departure Communication (Admissions) States he just needs a suppository as he is unable to put these in himself at home. Impression Primary Impression: Constipation Disposition: HOME, SELF-CARE Condition: Stable Departure-Patient Inst. Decision time for Depature: 17:26 Referrals: BRADY VERNON MD (PCP/Family) Primary Care Physician Patient Instructions: No Instuctions Given CORTEZ CASTAÑEDA APRN Dec 09, 2021 17:26
[2021-12-09] MEDS ORDERED: BISACODYL 10 MG SUPP (DULCOLAX) PR ONE (17:30)
[2021-12-09 17:40] VITALS: BP 130/82
== END 2021-12-09 17:45 | disposition home or self-care (01) ==
LOC: EDUNIT# 17:20 → ER 17:21
DX: K59.00 Constipation, unspecified (principal); I25.2 Old myocardial infarction; I10 Essential (primary) hypertension; I25.10 Atherosclerotic heart disease of native coronary artery without angina pectoris; E11.9 Type 2 diabetes mellitus without complications; Z79.4 Long term (current) use of insulin
CPT/HCPCS: 99283

== ENCOUNTER 2021-12-21 08:28 | Emergency (ER) | payer MEDICARE ==
[~2021-12-21] VITALS: Ht 170 cm; Wt 120.9 kg
[2021-12-21] MEDS ORDERED: FLEET ENEMA ADULT 1 EA BTL PR ONE (09:00)
[2021-12-21] MEDS ORDERED: METHYLNALTREXONE 12 MG/0.6 ML (RELISTOR) VIAL SQ ONE (09:00)
[2021-12-21] MEDS ORDERED: SENNA W/DOCUSATE (SENOKOT S) TABLET PO ONE (09:00)
[2021-12-21] MEDS ORDERED: GLYCERIN ADULT SUPPOSITORY PR ONE (09:00)
[2021-12-21] MEDS ORDERED: polyethylene glycoL POWDER 17 GM (MIRALAX) PACK PO ONE (09:00)
--- NOTE | 2021-12-21 09:03 | ED GI ---
General Chief Complaint: Abdominal/GI Problems Stated Complaint: CONSTIPATION Nursing Triage Note: PT STATES NO BM FOR A WEEK, TAKEN MIRLAX 3 TIMES LAST TIME WAS YEESTER AFTERNOON, VOMIT ONCE THIS MORNING WAS WHITE/CRUZ. STATES HAS THIS PROBLEM OFTEN Source of Information: Patient Exam Limitations: No Limitations History of Present Illness Date Seen by Provider: Dec 21, 2021 Time Seen by Provider: 08:32 Initial Comments 81-year-old male with past medical history of chronic constipation coming in due to constipation. He says this has been an issue for years, and he has been to emergency department numerous times over the past month for the same issue. He denies any pain, current nausea, or any other concerns. He says he is tolerating p.o. and tolerated his medications this morning. He says he is passing a lot of flatus per usual. He took MiraLAX 3 times over the past week with the last time yesterday which has not helped. Last bowel movement roughly 4 to 5 days ago. Denies any prior history of bowel obstruction or history of abdominal surgeries. Did have one episode of vomiting this morning which was a very small amount mostly mucus He does take tramadol for pain and has for years. Allergies and Home Medications Allergies Coded Allergies: Sulfa (Sulfonamide Antibiotics) (Unverified Allergy, Unknown, 10/10/19) Patient Home Medication List Home Medication List Reviewed: Yes Amlodipine Besylate (Amlodipine Besylate) 10 Mg Tablet, 10 MG PO DAILY Prescribed by: MARIO SULLIVAN on 12/19/20 1239 Amoxicillin/Potassium Clav (Amox Tr-K Clv 875-125 mg Tab) 1 Each Tablet, 875 MG PO BID WITH MEALS Prescribed by: MARIO SULLIVAN on 12/19/20 1239 Carvedilol (Carvedilol) 12.5 Mg Tablet, 25 MG PO BID Prescribed by: MARIO SULLIVAN on 12/19/20 1239 Clonidine HCl (Clonidine HCl) 0.3 Mg Tablet, 0.3 MG PO BID Prescribed by: MARIO SULLIVAN on 12/20/20 1451 Finasteride (Finasteride) 5 Mg Tablet, 5 MG PO DAILY Prescribed by: MARIO SULLIVAN on 12/19/20 1239 Fluticasone Propionate (Fluticasone Propionate) 16 Gm [place].susp, 1 SPRAY NSEACH DAILY, (Reported) Entered as Reported by: JOSE LUIS HUNTER on 12/11/20 1529 Furosemide (Furosemide) 40 Mg Tablet, 40 MG PO DAILY, (Reported) Entered as Reported by: ALECIA HERRERA on 10/17/18 1427 Hydralazine HCl (Hydralazine HCl) 25 Mg Tablet, 25 MG PO TID Prescribed by: ARAMIS ROD on 07/31/21 1937 Insulin Detemir (Levemir Flextouch) 100 Unit/1 Ml Insuln.pen, 25 UNIT SQ BID, (Reported) Entered as Reported by: VALENTINA العلي on 10/11/19 1034 Isosorbide Mononitrate (Isosorbide Mononitrate ER) 120 Mg Tab.er.24h, 120 MG PO DAILY, (Reported) Entered as Reported by: RASHIDA CLAROS on 10/10/19 1238 Na Phos,M-B/Na Phos,Di-Ba (Fleet Enema) 133 Ml Enema, 133 ML RC DAILY PRN PRN for CONSTIPATION-2ND LINE Prescribed by: ROBBY JOLLEY on 12/21/21 0907 Omeprazole (Omeprazole) 40 Mg Capsule.dr, 40 MG PO DAILY, (Reported) Entered as Reported by: JOSE LUIS HUNTER on 12/11/20 1529 Tamsulosin HCl (Flomax) 0.4 Mg Cap, 0.4 MG PO DAILY, (Reported) Entered as Reported by: RASHIDA CLAROS on 10/10/19 1238 Tramadol HCl (Tramadol HCl) 50 Mg Tablet, 50 MG PO TID, (Reported) Entered as Reported by: JOSE LUIS HUNTER on 12/11/20 1529 Review of Systems Review of Systems Constitutional: No chills, No fever EENTM: No Blurred Vision Respiratory: Denies Cough, Denies Shortness of Air Cardiovascular: Denies Chest Pain Gastrointestinal: Denies Abdominal Pain; Constipated; Denies Diarrhea, Denies Nausea Genitourinary: No Symptoms Reported Musculoskeletal: no symptoms reported Skin: no symptoms reported Psychiatric/Neurological: No Symptoms Reported Endocrine: No Symptoms Reported Hematologic/Lymphatic: No Symptoms Reported All Other Systems Reviewed Negative Unless Noted: Yes Past Ubtpouk-Puixxj-Iephqz Hx Patient Social History Tobacco Use?: No Substance use?: No Alcohol Use?: No Immunizations Up To Date Tetanus Booster (TDap): Less than 5yrs First/Initial COVID19 Vaccinat: January COVID19 Vaccination Zoltan: February COVID19 Vaccination Date: OCT COVID19 Vaccine Training And Development Director: JER Seasonal Allergies Seasonal Allergies: No Past Medical History Surgery/Hospitalization HX: HOSPITALIZED 12/11-12/20/20 FOR COVID-19 AND DIVERTICULITIS. NO HYPOXIA AND NO SPECIFIC TREATMENT FOR COVID-19 AT THAT TIME. 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;DIVERTICULITIS-NO SURGERY) Diverticulosis, Gall Bladder Disease Musculoskeletal: No Endocrine: Yes (SELF MEDICATES WITH HIS INSULIN; OBESITY) Diabetes, Insulin dep HEENT: No (patient wears glasses ) Loss of Vision: Denies Hearing Impairment: Denies Cancer: No Psychosocial: No Integumentary: No Blood Disorders: No Family Medical History Cardiovascular disease 19 FATHER Hypertension 19 FATHER CAD Over 55 Years Old, Hypertension PAST SURGICAL HISTORY: -CARDIAC CATH 11/09/19--DIFFUSELY CALCIFIED CORONARY ARTERIES, SMALL VESSEL DISEASE, NO INTERVENTION - Physical Exam Vital Signs Vital Signs - First Documented 12/21/21 08:32 Temp 35.7 Pulse 95 Resp 20 B/P (MAP) 171/95 (120) Pulse Ox 96 O2 Delivery Room Air Capillary Refill : Less Than 3 Seconds Height/Weight/BMI Height: 5'7.00" Weight: 200lbs. oz. 90.504484sv; 41.00 BMI Method:Estimated General Appearance: WD/WN, no apparent distress HEENT: PERRL/EOMI, normal ENT inspection, pharynx normal Neck: non-tender, full range of motion, supple, normal inspection Respiratory: chest non-tender, lungs clear, normal breath sounds, no respiratory distress, no accessory muscle use Cardiovascular: regular rate, rhythm, no edema, no murmur Gastrointestinal: normal bowel sounds, non tender, soft; No distended, No guarding, No rebound Extremities: normal range of motion, non-tender, normal inspection, no pedal edema, no calf tenderness, normal capillary refill Back: normal inspection, no CVA tenderness Neurologic/Psychiatric: no motor/sensory deficits, alert, normal mood/affect Skin: normal color, warm/dry Lymphatic: no adenopathy Progress/Results/Core Measures Results/Orders My Orders Orders - ROBBY JOLLEY MD Methylnaltrexone Injection (Relistor Inj (12/21/21 09:00) Senna S Tablet (Senokot S Tablet) (12/21/21 09:00) Polyethylene Glycol Powder Pkt (Miralax (12/21/21 09:00) Glycerin Adult Suppository (Glycerin Robson (12/21/21 09:00) Abdomen, Flat & Upright/Decub (12/21/21 08:52) Na Phos/Na Biphos Enema (Fleet Enema Robson (12/21/21 09:00) Medications Given in ED Current Medications Medications Dose Ordered Sig/Laya Route Start Time Stop Time Status Last Admin Dose Admin Glycerin 1 ea ONCE ONCE CA 12/21/21 09:00 12/21/21 09:01 DC 12/21/21 09:34 1 EA Methylnaltrexone [place] 12 mg ONCE ONCE SQ 12/21/21 09:00 12/21/21 09:01 DC 12/21/21 09:04 12 MG Polyethylene Glycol 17 gm ONCE ONCE PO 12/21/21 09:00 12/21/21 09:01 DC 12/21/21 09:34 17 GM Senna 1 ea ONCE ONCE PO 12/21/21 09:00 12/21/21 09:01 DC 12/21/21 09:34 1 EA Sodium Biphosphate/ Sodium Phosphate 1 ea ONCE ONCE CA 12/21/21 09:00 12/21/21 09:01 DC 12/21/21 09:34 1 EA Vital Signs/I&O 12/21/21 08:32 Temp 35.7 Pulse 95 Resp 20 B/P (MAP) 171/95 (120) Pulse Ox 96 O2 Delivery Room Air Blood Pressure Mean: 120 Progress Progress Note : Progress Note 81-year-old male with above history coming in due to constipation. ABCs were intact and vitals were stable on presentation. Physical exam reassuring with normal bowel sounds and soft and nontender abdomen. I reviewed the patient's chart including multiple emergency department visits which he has typically gone home after a suppository. This typically works. We will try a multipronged approach including senna S, MiraLAX, and a suppository. We will give him an enema to physically go home with just in case none of this works. He says he would use an enema at home, but he does not have any transportation and has no way to get to the store to purchase one. He is denying any current nausea, current abdominal pain, and is passing flatus. No clinical signs of a bowel obstruction. He is tolerating fluids which is reassuring. X-ray of his abdomen ordered and interpreted by me showing no signs of obstruction with a moderate s tool burden. I believe he is stable for discharge with outpatient follow-up. He was sent home with strict return precautions Diagnostic Imaging Diagonstic Imaging: Xray (abdomen) Comments NAME: MILDRED YORK [facility] REC#: [id number] PT STATUS: REG ER : 1940 PHYSICIAN: ROBBY JOLLEY MD ADMIT DATE: 12/21/21/ER Draft Date of Exam:12/21/21 ABDOMEN, FLAT & UPRIGHT/DECUB INDICATION: Abdominal pain, no bowel movement for a week. Vomiting this morning. TECHNIQUE: Supine and upright view of the abdomen 9:20 AM CORRELATION STUDY: 12/04/2021 FINDINGS: Kfkj-lh-zmmracrd stool retention throughout the colon. Slight disproportionate distal colonic fecal loading. Overt impaction or underlying bowel obstruction does not appear to be present. Unchanged elevated right diaphragm. No definitive pathologic intra-abdominal calcifications. IMPRESSION: 1. Mqkz-kp-hyniekgq severity constipation. No evidence for large fecal impaction. Dictated on workstation # [id number] Dict: 12/21/21 0939 Trans: 12/21/21 0942 HERNANDO [id number] Interpreted by: SUNNI FUENTES DO Electronically signed by: Departure Impression Primary Impression: Constipation Qualified Codes: K59.00 - Constipation, unspecified Disposition: HOME, SELF-CARE Condition: Stable Departure-Patient Inst. Decision time for Depature: 09:34 Referrals: BRADY VERNON MD (PCP/Family) Primary Care Physician Patient Instructions: Constipation in Adults Add. Discharge Instructions: Please follow-up with Dr. VERNON to see if there is anything else that can be done. If possible they can write a prescription for enemas to be brought to your house with your other medications that you can use during emergencies. If you begin having severe abdominal pain, vomiting that will not stop, or any other concerns and please come back to the ER. Scripts Na Ruben,M-B/Na Phos,Di-Ba (Fleet Enema) 133 Ml Enema 133 ML RC DAILY PRN PRN for CONSTIPATION-2ND LINE for 7 Days, #7 EA Prov: ROBBY JOLLEY MD 12/21/21 ROBBY JOLLEY MD Dec 21, 2021 09:03
[2021-12-21] MEDS ORDERED: NA P133E22 RC (09:07)
--- NOTE | 2021-12-21 09:43 | Diagnostic Imaging Report ---
INDICATION: Abdominal pain, no bowel movement for a week. Vomiting this morning. TECHNIQUE: Supine and upright view of the abdomen 9:20 AM CORRELATION STUDY: 12/04/2021 FINDINGS: Uzwo-se-yswfwagc stool retention throughout the colon. Slight disproportionate distal colonic fecal loading. Overt impaction or underlying bowel obstruction does not appear to be present. Unchanged elevated right diaphragm. No definitive pathologic intra-abdominal calcifications. IMPRESSION: 1. Mlpu-sx-itppbdpu severity constipation. No evidence for large fecal impaction. Dictated by: Dictated on workstation # [id number]
[2021-12-21 10:02] VITALS: BP 171/95
== END 2021-12-21 10:03 | disposition home or self-care (01) ==
LOC: EDUNIT# 08:28 → ER 08:29
DX: K59.00 Constipation, unspecified (principal); I25.2 Old myocardial infarction; I10 Essential (primary) hypertension; E11.9 Type 2 diabetes mellitus without complications; Z79.4 Long term (current) use of insulin
CPT/HCPCS: 74019

== ENCOUNTER → 2022-05-10 | Outpatient (CLI) | payer MEDICARE ==
[~2022-05-10] MED LIST changes: +NA P133E22 RC
--- NOTE | 2022-05-10 17:04 | Diagnostic Imaging Report ---
EXAMINATION: US Retroperitoneal Complete. TECHNIQUE: Multiple real-time grayscale images were obtained over the kidneys in various projections bilaterally. HISTORY: CKD. COMPARISON: None available. FINDINGS: The right kidney demonstrates normal echogenicity and cortical thickness. The right kidney measures 10.4 x 4.5 x 5.2 cm. No hydronephrosis. The left kidney demonstrates normal echogenicity and cortical thickness. The left kidney measures 9.5 x 4.4 x 5.3 cm. No hydronephrosis. The urinary bladder is normal. Bilateral ureteral jets are seen. The post-void volume is 134 mL. IMPRESSION: 1. Unremarkable kidneys without hydronephrosis. 2. Post-void residual of 134 mL. Dictated by: Dictated on workstation # [id number]
== END ==
LOC: RAD 14:36
PROVIDERS: ATTEND Internal Medicine Nephrology
DX: N18.32 Chronic kidney disease, stage 3b (principal)
CPT/HCPCS: 76770

== ENCOUNTER 2022-06-28 19:54 | Emergency (ER) | payer MEDICARE ==
[~2022-06-28] VITALS: Ht 170 cm; Wt 122.0 kg
--- NOTE | 2022-06-28 20:10 | ED General ---
General Chief Complaint: COVID19 Suspect/Confirmed Stated Complaint: SOB,COUGH,WEAKNESS Source of Information: Patient Exam Limitations: No Limitations History of Present Illness Date Seen by Provider: Jun 28, 2022 Time Seen by Provider: 20:09 Initial Comments To ER with cough shortness of breath general weakness for a couple of weeks. He was seen Dr. Maddox for this. He was supposed to see her of this past week but he was too weak to do so. He is less weak today. Timing/Duration: Constant Severity: Moderate Associated Systoms: Cough; No Headaches, No Loss of Appetite; Malaise; No Nausea/Vomiting; Weakness Allergies and Home Medications Allergies Coded Allergies: Sulfa (Sulfonamide Antibiotics) (Unverified Allergy, Unknown, 10/10/19) Patient Home Medication List Home Medication List Reviewed: Yes Amoxicillin/Potassium Clav (Augmentin 500-125 Tablet) 500 Mg-125 Mg Tablet, 1 EACH PO BID Prescribed by: CORTEZ CASTAÑEDA on 06/28/222112 Carvedilol (Carvedilol) 12.5 Mg Tablet, 25 MG PO BID Prescribed by: MARIO SULLIVAN on 12/19/20 1239 Clonidine HCl (Clonidine HCl) 0.3 Mg Tablet, 0.3 MG PO BID Prescribed by: MARIO SULLIVAN on 12/20/20 1451 Finasteride (Finasteride) 5 Mg Tablet, 5 MG PO DAILY Prescribed by: MARIO SULLIVAN on 12/19/20 1239 Fluticasone Propionate (Fluticasone Propionate) 16 Gm [place].susp, 1 SPRAY NSEACH DAILY, (Reported) Entered as Reported by: JOSE LUIS HUNTER on 12/11/20 1529 Furosemide (Furosemide) 40 Mg Tablet, 40 MG PO DAILY, (Reported) Entered as Reported by: ALECIA HERRERA on 10/17/18 1427 Hydralazine HCl (Hydralazine HCl) 25 Mg Tablet, 25 MG PO TID Prescribed by: ARAMIS ROD on 07/31/21 193 Insulin Detemir (Levemir Flextouch) 100 Unit/1 Ml Insuln.pen, 25 UNIT SQ BID, (Reported) Entered as Reported by: VALENTINA العلي on 10/11/19 1034 Isosorbide Mononitrate (Isosorbide Mononitrate ER) 120 Mg Tab.er.24h, 120 MG PO DAILY, (Reported) Entered as Reported by: RASHIDA CLAROS on 10/10/19 1238 Omeprazole (Omeprazole) 40 Mg Capsule.dr, 40 MG PO DAILY, (Reported) Entered as Reported by: JOSE LUIS HUNTER on 12/11/201528 Tamsulosin HCl (Flomax) 0.4 Mg Cap, 0.4 MG PO DAILY, (Reported) Entered as Reported by: RASHIDA CLAROS on 10/10/19 1238 Discontinued Medications Amlodipine Besylate (Amlodipine Besylate) 10 Mg Tablet, 10 MG PO DAILY Discontinued Reason: No Longer Taking Prescribed by: MARIO SULLIVAN on 12/19/20 123 Last Action: Discontinued Amoxicillin/Potassium Clav (Amox Tr-K Clv 875-125 mg Tab) 1 Each Tablet, 875 MG PO BID WITH MEALS Discontinued Reason: No Longer Taking Prescribed by: MARIO SULLIVAN on 12/19/201238 Last Action: Discontinued Na Phos,M-B/Na Phos,Di-Ba (Fleet Enema) 133 Ml Enema, 133 ML RC DAILY PRN PRN for CONSTIPATION-2ND LINE Discontinued Reason: No Longer Taking Prescribed by: ROBBY JOLLEY on 12/21/21 0907 Last Action: Discontinued Tramadol HCl (Tramadol HCl) 50 Mg Tablet, 50 MG PO TID, (Reported) Discontinued Reason: No Longer Taking Entered as Reported by: JOSE LUIS HUNTER on 12/11/201528 Last Action: Discontinued Review of Systems Review of Systems Constitutional: see HPI EENTM: see HPI Respiratory: see HPI, cough Cardiovascular: no symptoms reported Genitourinary: no symptoms reported Musculoskeletal: no symptoms reported Skin: no symptoms reported Psychiatric/Neurological: No Symptoms Reported Hematologic/Lymphatic: No Symptoms Reported Immunological/Allergic: no symptoms reported Past Pfbthbm-Qbsenm-Rnrsth Hx Immunizations Up To Date Tetanus Booster (TDap): Less than 5yrs First/Initial COVID19 Vaccinat: January COVID19 Vaccination Zoltan: February COVID19 Vaccination Date: OCT Seasonal Allergies Seasonal Allergies: No Past Medical History Surgery/Hospitalization HX: HOSPITALIZED 12/11-12/20/20 FOR COVID-19 AND DIVERTICULITIS. NO HYPOXIA AND NO SPECIFIC TREATMENT FOR COVID-19 AT THAT TIME. 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;DIVERTICULITIS-NO SURGERY) Diverticulosis, Gall Bladder Disease Musculoskeletal: No Endocrine: Yes (SELF MEDICATES WITH HIS INSULIN; OBESITY) Diabetes, Insulin dep HEENT: No (patient wears glasses ) Loss of Vision: Denies Hearing Impairment: Denies Cancer: No Psychosocial: No Integumentary: No Blood Disorders: No Family Medical History Cardiovascular disease 19 FATHER Hypertension 19 FATHER CAD Over 55 Years Old, Hypertension PAST SURGICAL HISTORY: -CARDIAC CATH 11/09/19--DIFFUSELY CALCIFIED CORONARY ARTERIES, SMALL VESSEL DISEASE, NO INTERVENTION - Physical Exam Vital Signs Vital Signs - First Documented 06/28/22 19:59 Temp 36.1 Pulse 84 Resp 14 B/P (MAP) 136/77 (96) Pulse Ox 94 O2 Delivery Room Air Capillary Refill : Height, Weight, BMI Height: 5'7.00" Weight: 200lbs. oz. 90.495133nx; 41.00 BMI Method:Estimated General Appearance: No Apparent Distress, WD/WN Eyes: Bilateral Eye Normal Inspection, Bilateral Eye PERRL, Bilateral Eye EOMI HEENT: PERRL/EOMI Neck: Full Range of Motion, Normal Inspection Respiratory: Normal Breath Sounds, No Accessory Muscle Use, No Respiratory Distress Cardiovascular: Regular Rate, Rhythm, Normal Peripheral Pulses Gastrointestinal: Normal Bowel Sounds, Non Tender, Soft Extremity: Normal Capillary Refill, Normal Inspection Neurologic/Psychiatric: Alert, Oriented x3 Skin: Normal Color, Warm/Dry Progress/Results/Core Measures Suspected Sepsis SIRS Temperature: Pulse: Respiratory Rate: Laboratory Tests 06/28/22 20:16: White Blood Count 8.8 Blood Pressure / Mean: Laboratory Tests 06/28/22 20:16: Creatinine 2.10H, Platelet Count 219, Total Bilirubin 0.4 Results/Orders Lab Results Laboratory Tests Test 06/28/22 20:12 06/28/22 20:16 Range/Units Influenza Type A (RT-PCR) Not Detected Not Detecte Influenza Type B (RT-PCR) Not Detected Not Detecte SARS-CoV-2 RNA (RT-PCR) Not Detected Not Detecte White Blood Count 8.8 4.3-11.0 10^3/uL Red Blood Count 4.58 4.30-5.52 10^6/uL Hemoglobin 13.2 L 13.3-17.7 g/dL Hematocrit 42 40-54 % Mean Corpuscular Volume 92 80-99 fL Mean Corpuscular Hemoglobin 29 25-34 pg Mean Corpuscular Hemoglobin Concent 32 32-36 g/dL Red Cell Distribution Width 15.2 H 10.0-14.5 % Platelet Count 219 130-400 10^3/uL Mean Platelet Volume 9.9 9.0-12.2 fL Immature Granulocyte % (Auto) 0 % Neutrophils (%) (Auto) 68 42-75 % Lymphocytes (%) (Auto) 21 12-44 % Monocytes (%) (Auto) 10 0-12 % Eosinophils (%) (Auto) 1 0-10 % Basophils (%) (Auto) 0 0-10 % Neutrophils # (Auto) 5.9 1.8-7.8 10^3/uL Lymphocytes # (Auto) 1.8 1.0-4.0 10^3/uL Monocytes # (Auto) 0.8 0.0-1.0 10^3/uL Eosinophils # (Auto) 0.1 0.0-0.3 10^3/uL Basophils # (Auto) 0.0 0.0-0.1 10^3/uL Immature Granulocyte # (Auto) 0.0 0.0-0.1 10^3/uL Sodium Level 140 135-145 MMOL/L Potassium Level 4.4 3.6-5.0 MMOL/L Chloride Level 107 98-107 MMOL/L Carbon Dioxide Level 21 21-32 MMOL/L Anion Gap 12 5-14 MMOL/L Blood Urea Nitrogen 35 H 7-18 MG/DL Creatinine 2.10 H 0.60-1.30 MG/DL Estimat Glomerular Filtration Rate 31 BUN/Creatinine Ratio 17 Glucose Level 176 H 70-105 MG/DL Calcium Level 8.2 L 8.5-10.1 MG/DL Corrected Calcium 8.8 8.5-10.1 MG/DL Total Bilirubin 0.4 0.1-1.0 MG/DL Aspartate Amino Transf (AST/SGOT) 19 5-34 U/L Alanine Aminotransferase (ALT/SGPT) 16 0-55 U/L Alkaline Phosphatase 86 40-136 U/L B-Type Natriuretic Peptide 78.1 <100.0 PG/ML Total Protein 7.0 6.4-8.2 GM/DL Albumin 3.3 3.2-4.5 GM/DL My Orders Orders - CORTEZ CASTAÑEDA APRN Bnp Nathan (06/28/22 20:02) Chest 1 View, Ap/Pa Only (06/28/22 20:02) Ekg Tracing (06/28/22 20:02) Cbc With Automated Diff (06/28/22 20:02) Comprehensive Metabolic Panel (06/28/22 20:02) Covid 19 Inhouse Test (06/28/22 20:02) Influenza A And B By Pcr (06/28/22 20:02) Amoxicillin/Clavulanate Tablet (Augmenti (06/28/22 21:15) Vital Signs/I&O 06/28/22 19:59 Temp 36.1 Pulse 84 Resp 14 B/P (MAP) 136/77 (96) Pulse Ox 94 O2 Delivery Room Air Capillary Refill : Departure Communication (Admissions) NAME: MILDRED YORK [facility] REC#: [id number] PT STATUS: REG ER : 1940 PHYSICIAN: CORTEZ CASTAÑEDA APRN ADMIT DATE: 06/28/22/ER Draft Date of Exam:06/28/22 CHEST 1 VIEW, AP/PA ONLY EXAMINATION: Chest radiograph, portable AP view. DATE: 06/28/2022 8:20 PM INDICATION: 81-year-old male, shortness of breath. COMPARISON: July 31, 2021. FINDINGS: Heart size and mediastinal contours appear grossly unchanged. There is no identified pneumothorax. There are streaky opacities in the right lung base with slight blunting of the right lateral costophrenic angle which does appear to be an interval change. The left lung is grossly clear. IMPRESSION: Mild streaky opacities in the right lung base and blunting of the right lateral costophrenic angle which may relate to atelectasis, infiltrate and/or small effusion. Dictated on workstation # [id number] Dict: 06/28/222023 Trans: 06/28/222025 [facility] [id number] Interpreted by: PEGGY BRUCE MD Electronically signed by: Impression Primary Impression: RLL pneumonia Disposition: HOME, SELF-CARE Condition: Stable Departure-Patient Inst. Decision time for Depature: 20:51 Referrals: BRADY MADDOX MD (PCP/Family) Primary Care Physician Patient Instructions: Pneumonia, Adult (DC) Scripts Amoxicillin/Potassium Clav (Augmentin 500-125 Tablet) 500 Mg-125 Mg Tablet 1 EACH PO BID, #14 TAB Prov: CORTEZ CASTAÑEDA APRN 06/28/22 CORTEZ CASTAÑEDA APRN Jun 28, 2022 20:10
--- NOTE | 2022-06-28 20:26 | Diagnostic Imaging Report ---
EXAMINATION: Chest radiograph, portable AP view. DATE: 06/28/2022 8:20 PM INDICATION: 81-year-old male, shortness of breath. COMPARISON: July 31, 2021. FINDINGS: Heart size and mediastinal contours appear grossly unchanged. There is no identified pneumothorax. There are streaky opacities in the right lung base with slight blunting of the right lateral costophrenic angle which does appear to be an interval change. The left lung is grossly clear. IMPRESSION: Mild streaky opacities in the right lung base and blunting of the right lateral costophrenic angle which may relate to atelectasis, infiltrate and/or small effusion. Dictated by: Dictated on workstation # [id number]
[2022-06-28 20:41] LABS: BASOPHILS % (AUTO) 0 % (0-10); EOSINOPHILS # (AUTO) 0.1 10^3/uL (0.0-0.3); EOSINOPHILS % (AUTO) 1 % (0-10); HEMATOCRIT 42 % (40-54); HEMOGLOBIN 13.2 g/dL (13.3-17.7); LYMPHOCYTES # (AUTO) 1.8 10^3/uL (1.0-4.0); LYMPHOCYTES % (AUTO) 21 % (12-44); MEAN CORPUSCULAR HEMOGLOBIN 29 pg (25-34); MEAN CORPUSCULAR HGB CONC 32 g/dL (32-36); MEAN CORPUSCULAR VOLUME 92 fL (80-99); MEAN PLATELET VOLUME 9.9 fL (9.0-12.2); MONOCYTES # (AUTO) 0.8 10^3/uL (0.0-1.0); MONOCYTES % (AUTO) 10 % (0-12); NEUTROPHILS # (AUTO) 5.9 10^3/uL (1.8-7.8); NEUTROPHILS % (AUTO) 68 % (42-75); PLATELET COUNT 219 10^3/uL (130-400); WHITE BLOOD COUNT 8.8 10^3/uL (4.3-11.0)
[2022-06-28 20:47] LABS: ALBUMIN 3.3 GM/DL (3.2-4.5); POTASSIUM 4.4 MMOL/L (3.6-5.0)
[2022-06-28 20:49] LABS: CALCIUM 8.2 MG/DL (8.5-10.1)
[2022-06-28 20:51] LABS: BILIRUBIN,TOTAL 0.4 MG/DL (0.1-1.0)
[2022-06-28 20:54] LABS: CREATININE SERUM 2.1 MG/DL (0.60-1.30)
[2022-06-28] MEDS ORDERED: AMOX-355 PO (21:13)
[2022-06-28] MEDS ORDERED: AUGMENTIN 875 MG TAB (AMOXICILLIN/CLAVULANATE) PO SCH (21:15)
[2022-06-28 21:18] VITALS: BP 130/71
== END 2022-06-28 21:22 | disposition home or self-care (01) ==
LOC: EDUNIT# 19:54 → ER 19:56
DX: J18.1 Lobar pneumonia, unspecified organism (principal); E66.9 Obesity, unspecified; Z68.41 Body mass index [BMI] 40.0-44.9, adult; Z20.822 Contact with and (suspected) exposure to COVID-19
CPT/HCPCS: 36415; 71045; 80053; 83880; 85025; 87636; 93005

== ENCOUNTER 2022-07-04 08:53 | Emergency (ER) | payer MEDICARE ==
[~2022-07-04] VITALS: Ht 170 cm; Wt 118.0 kg
[~2022-07-04 08:53] MED LIST changes: +AMOX-355 PO; +LEVO250T66 PO; -LVF250T PO
[2022-07-04] MEDS ORDERED: HYDROcodone/APAP 5 MG/325 MG (LORTAB) TAB PO ONE (09:45)
[2022-07-04] MEDS ORDERED: KETOROLAC 15 MG/ML VIAL IVP ONE (09:45)
--- NOTE | 2022-07-04 09:55 | ED General ---
General Chief Complaint: Glucose Problems Stated Complaint: BLOOD SUGAR ISSUES Nursing Triage Note: PT AMB TO [facility] 5 WITH C/O BLOOD SUGAR PROBLEMS AFTER TAKING ABX THAT HE WAS GIVEN ON 06/29 FOR PNEUMONIA. PT STATES HIS SUGAR WAS 245 AFTER EATING THIS MORNING BUT IT HAS BEEN DROPPING THROUGHOUT THE DAY. Source of Information: Patient Exam Limitations: No Limitations History of Present Illness Date Seen by Provider: Jul 04, 2022 Time Seen by Provider: 09:20 Initial Comments 81-year-old male presents emerged department today for concerns with his blood sugar being too low. He states his blood sugars have been dropping as low as 161 taken at home. He is concerned that the antibiotics he is taking for respiratory infection might be causing low blood sugars. His respiratory symptoms are improving. He is concerned because his blood sugars run higher than normal people and hears that if he drops more with that he will be "unconscious." He has not eaten this morning. Blood sugar on arrival was 220 Allergies and Home Medications Allergies Coded Allergies: Sulfa (Sulfonamide Antibiotics) (Unverified Allergy, Unknown, 10/10/19) Patient Home Medication List Home Medication List Reviewed: Yes Amoxicillin/Potassium Clav (Augmentin 500-125 Tablet) 500 Mg-125 Mg Tablet, 1 EACH PO BID Prescribed by: CORTEZ CASTAÑEDA on 06/28/222112 Carvedilol (Carvedilol) 12.5 Mg Tablet, 25 MG PO BID Prescribed by: MARIO SULLIVAN on 12/19/20 1239 Clonidine HCl (Clonidine HCl) 0.3 Mg Tablet, 0.3 MG PO BID Prescribed by: MARIO SULLIVAN on 12/20/20 1451 Finasteride (Finasteride) 5 Mg Tablet, 5 MG PO DAILY Prescribed by: MARIO SULLIVAN on 12/19/20 1239 Fluticasone Propionate (Fluticasone Propionate) 16 Gm [place].susp, 1 SPRAY NSEACH DAILY, (Reported) Entered as Reported by: JOSE LUIS HUNTER on 12/11/20 1529 Furosemide (Furosemide) 40 Mg Tablet, 40 MG PO DAILY, (Reported) Entered as Reported by: ALECIA HERRERA on 10/17/18 1427 Hydralazine HCl (Hydralazine HCl) 25 Mg Tablet, 25 MG PO TID Prescribed by: ARAMIS ROD on 07/31/21 193 Insulin Detemir (Levemir Flextouch) 100 Unit/1 Ml Insuln.pen, 25 UNIT SQ BID, (Reported) Entered as Reported by: VALENTINA العلي on 10/11/19 1034 Isosorbide Mononitrate (Isosorbide Mononitrate ER) 120 Mg Tab.er.24h, 120 MG PO DAILY, (Reported) Entered as Reported by: RASHIDA CLAROS on 10/10/19 1238 Omeprazole (Omeprazole) 40 Mg Capsule.dr, 40 MG PO DAILY, (Reported) Entered as Reported by: JOSE LUIS HUNTER on 12/11/20 1529 Tamsulosin HCl (Flomax) 0.4 Mg Cap, 0.4 MG PO DAILY, (Reported) Entered as Reported by: RASHIDA CLAROS on 10/10/19 1238 Discontinued Medications Amlodipine Besylate (Amlodipine Besylate) 10 Mg Tablet, 10 MG PO DAILY Discontinued Reason: No Longer Taking Prescribed by: MARIO SULLIVAN on 12/19/20 1239 Amoxicillin/Potassium Clav (Amox Tr-K Clv 875-125 mg Tab) 1 Each Tablet, 875 MG PO BID WITH MEALS Discontinued Reason: No Longer Taking Prescribed by: MARIO SULLIVAN on 12/19/20 1239 Na Phos,M-B/Na Phos,Di-Ba (Fleet Enema) 133 Ml Enema, 133 ML RC DAILY PRN PRN for CONSTIPATION-2ND LINE Discontinued Reason: No Longer Taking Prescribed by: ROBBY JOLLEY on 12/21/21 0907 Tramadol HCl (Tramadol HCl) 50 Mg Tablet, 50 MG PO TID, (Reported) Discontinued Reason: No Longer Taking Entered as Reported by: JOSE LUIS HUNTER on 12/11/20 1529 Review of Systems Review of Systems Constitutional: no symptoms reported EENTM: no symptoms reported Respiratory: no symptoms reported Gastrointestinal: no symptoms reported Genitourinary: no symptoms reported Musculoskeletal: no symptoms reported Skin: no symptoms reported Psychiatric/Neurological: No Symptoms Reported Hematologic/Lymphatic: No Symptoms Reported Immunological/Allergic: no symptoms reported Past Bhusebb-Kbskno-Rgfaxw Hx Patient Social History Tobacco Use?: No Use of E-Cig and/or Vaping dev: No Substance use?: No Alcohol Use?: No Pt feels they are or have been: No Immunizations Up To Date Tetanus Booster (TDap): Less than 5yrs Influenza Vaccine Up-to-Date: Yes; Up-to-Date First/Initial COVID19 Vaccinat: January COVID19 Vaccination Zoltan: February COVID19 Vaccination Date: OCT 2021 Seasonal Allergies Seasonal Allergies: No Past Medical History Surgery/Hospitalization HX: diverticulitis, htn, bph, macular degeneration, iddm Surgeries: Yes (CARDIAC CATH --NO INTERVENTION) Cardiac Respiratory: Yes (Pneumonia patient states "when i was 1") Pneumonia Cardiac: Yes (CARDIAC CATH-NO INTERVENTION;NSTEMI 10/2019;[facility] RIGHT LEG EDEMA- US NEGATIVE) Chronic Edema/Swelling, Coronary Artery Disease, Heart Attack, High Cholesterol, Hypertension Neurological: Yes (PERIPHERAL NEUROPATHY) Neuropathy Genitourinary: Yes (Chronic kidney disease stage 3 ; GFR TYPICALLY IN 30'S) Prostate Problems, Renal Failure Gastrointestinal: Yes (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;DIVERTICULITIS-NO SURGERY) Diverticulosis, Gall Bladder Disease Musculoskeletal: No Endocrine: Yes (SELF MEDICATES WITH HIS INSULIN; OBESITY) Diabetes, Insulin dep HEENT: No (patient wears glasses ) Loss of Vision: Denies Hearing Impairment: Denies Cancer: No Psychosocial: No Integumentary: No Blood Disorders: No Family Medical History Reviewed Nursing Family Hx Cardiovascular disease 19 FATHER Hypertension 19 FATHER No Pertinent Family Hx, CAD Over 55 Years Old, Hypertension PAST SURGICAL HISTORY: -CARDIAC CATH 11/09/19--DIFFUSELY CALCIFIED CORONARY ARTERIES, SMALL VESSEL DISEASE, NO INTERVENTION - Physical Exam Vital Signs Vital Signs - First Documented 07/04/22 09:04 Temp 36.6 Pulse 87 Resp 20 B/P (MAP) 191/97 (128) Capillary Refill : Height, Weight, BMI Height: 5'7.00" Weight: 200lbs. oz. [id number]; 40.00 BMI Method:Estimated General Appearance: No Apparent Distress, WD/WN, Anxious HEENT: PERRL/EOMI, TMs Normal, Normal ENT Inspection, Pharynx Normal Neck: Full Range of Motion, Normal Inspection, Non Tender, Supple Respiratory: Chest Non Tender, Lungs Clear, Normal Breath Sounds, No Accessory Muscle Use, No Respiratory Distress Cardiovascular: Regular Rate, Rhythm, No Edema, No Gallop, No JVD, No Murmur, Normal Peripheral Pulses Gastrointestinal: Normal Bowel Sounds, No Organomegaly, No Pulsatile Mass, Non Tender, Soft Extremity: Normal Capillary Refill, Normal Inspection, Normal Range of Motion, Non Tender, No Calf Tenderness Neurologic/Psychiatric: Alert, Oriented x3 Skin: Normal Color, Warm/Dry Progress/Results/Core Measures Suspected Sepsis SIRS Temperature: Pulse: 87 Respiratory Rate: 20 Blood Pressure 191 /97 Mean: 128 Results/Orders Lab Results Laboratory Tests Test 07/04/22 09:08 07/04/22 10:29 07/04/22 11:16 Range/Units Glucometer 220 H 216 H 262 H 70-110 MG/DL My Orders Orders - LALA MOYA DO General/Regular (07/04/22 Lunch) Ketorolac Injection (Toradol Injection) (07/04/22 09:45) Hydrocodone/Apap 5/325 Tablet (Lortab 5 (07/04/22 09:45) Vital Signs/I&O 07/04/22 09:04 Temp 36.6 Pulse 87 Resp 20 B/P (MAP) 191/97 (128) Capillary Refill : Blood Pressure Mean: 128 Departure Communication (Admissions) Patient is hemodynamically stable. Tolerating p.o. with a full meal. Blood sugar 250 afterwards. He continues to be concerned about his blood sugars dropping however there is no indication that this is a reality at this time. He is discharged home in stable condition with supportive care and follow-up with his primary care doctor Impression Primary Impression: Encounter for medical screening examination Disposition: 01 HOME, SELF-CARE Condition: Stable Departure-Patient Inst. Decision time for Depature: 11:26 Referrals: BRADY VERNON MD (PCP/Family) Primary Care Physician Patient Instructions: Type 2 Diabetes (DC) Add. Discharge Instructions: Continue to eat regular meals. Monitor your blood sugars at home. Follow-up department if physician for any nonemergent needs. Recommend she continue the antibiotics until they are gone. All discharge instructions reviewed with patient and/or family. Voiced understanding. LALA MOYA DO Jul 04, 2022 09:55
[2022-07-04 11:29] VITALS: BP 184/90
== END 2022-07-04 11:30 | disposition home or self-care (01) ==
LOC: EDUNIT# 08:53 → ER 08:56
DX: Z00.00 Encounter for general adult medical examination without abnormal findings (principal); E11.9 Type 2 diabetes mellitus without complications; E66.9 Obesity, unspecified; Z68.41 Body mass index [BMI] 40.0-44.9, adult; Z79.4 Long term (current) use of insulin
CPT/HCPCS: 82947

== ENCOUNTER 2022-07-30 15:18 | Emergency (ER) | payer MEDICARE ==
[~2022-07-30] VITALS: Ht 175.3 cm; Wt 120.0 kg
[2022-07-30] MEDS ORDERED: hydrALAZINE (APESOLINE) 20 MG/ML VIAL IV ONE (16:45)
[2022-07-30 16:53] LABS: BASOPHILS % (AUTO) 0 % (0-10); EOSINOPHILS # (AUTO) 0.1 10^3/uL (0.0-0.3); EOSINOPHILS % (AUTO) 1 % (0-10); HEMATOCRIT 40 % (40-54); HEMOGLOBIN 12.4 g/dL (13.3-17.7); LYMPHOCYTES # (AUTO) 1.4 10^3/uL (1.0-4.0); LYMPHOCYTES % (AUTO) 15 % (12-44); MEAN CORPUSCULAR HEMOGLOBIN 29 pg (25-34); MEAN CORPUSCULAR HGB CONC 31 g/dL (32-36); MEAN CORPUSCULAR VOLUME 94 fL (80-99); MONOCYTES % (AUTO) 11 % (0-12); NEUTROPHILS # (AUTO) 6.7 10^3/uL (1.8-7.8); NEUTROPHILS % (AUTO) 73 % (42-75); PLATELET COUNT 245 10^3/uL (130-400); WHITE BLOOD COUNT 9.2 10^3/uL (4.3-11.0)
[2022-07-30 16:57] LABS: ALBUMIN 3.3 GM/DL (3.2-4.5); POTASSIUM 4.1 MMOL/L (3.6-5.0)
[2022-07-30 16:58] LABS: CALCIUM 8.5 MG/DL (8.5-10.1); PROTHROMBIN TIME PATIENT 13.6 SEC (12.2-14.7)
[2022-07-30 17:00] LABS: TOTAL PROTEIN 6.9 GM/DL (6.4-8.2)
[2022-07-30 17:01] LABS: BILIRUBIN,TOTAL 0.6 MG/DL (0.1-1.0)
--- NOTE | 2022-07-30 17:02 | Diagnostic Imaging Report ---
HISTORY: Chest pain COMPARISON: 06/28/2022 TECHNIQUE: Frontal view of the chest FINDINGS: There is elevation of the right hemidiaphragm. There are central interstitial opacities which are prominent. There are airspace opacities in the lung bases bilaterally. The cardiac silhouette is mildly prominent, likely secondary to the portable technique, but appear stable in size. IMPRESSION: 1. Central interstitial opacities, may represent a mild edema. 2. Bibasilar airspace opacities, may represent atelectasis or infiltrate. Dictated by: Dictated on workstation # [id number]
[2022-07-30 17:03] LABS: CREATININE SERUM 1.73 MG/DL (0.60-1.30)
[2022-07-30 17:06] LABS: MAGNESIUM 2.1 MG/DL (1.6-2.4)
--- NOTE | 2022-07-30 17:16 | ED Respiratory ---
General Chief Complaint: Respiratory Problems Stated Complaint: SOB Nursing Triage Note: PT AMB TO [facility] 5 WITH COMPLAINT OF SOA. STATES STARTED 2-3 DAYS AGO. STATES JUST GOT OVER PNEUMONIA. JUST FINISHED ANTIBIOTICS FOR UTI Source: patient Exam Limitations: no limitations History of Present Illness Date Seen by Provider: Jul 30, 2022 Time Seen by Provider: 17:16 Allergies and Home Medications Allergies Coded Allergies: Sulfa (Sulfonamide Antibiotics) (Unverified Allergy, Unknown, 10/10/19) Patient Home Medication List Amoxicillin/Potassium Clav (Augmentin 500-125 Tablet) 500 Mg-125 Mg Tablet, 1 EACH PO BID Prescribed by: CORTEZ CASTAÑEDA on 06/28/222112 Carvedilol (Carvedilol) 12.5 Mg Tablet, 25 MG PO BID Prescribed by: MARIO SULLIVAN on 12/19/20 1239 Clonidine HCl (Clonidine HCl) 0.3 Mg Tablet, 0.3 MG PO BID Prescribed by: MARIO SULLIVAN on 12/20/20 1451 Finasteride (Finasteride) 5 Mg Tablet, 5 MG PO DAILY Prescribed by: MARIO SULLIVAN on 12/19/20 1239 Fluticasone Propionate (Fluticasone Propionate) 16 Gm [place].susp, 1 SPRAY NSEACH DAILY, (Reported) Entered as Reported by: JOSE LUIS HUNTER on 12/11/20 1529 Furosemide (Furosemide) 40 Mg Tablet, 40 MG PO DAILY, (Reported) Entered as Reported by: ALECIA HERRERA on 10/17/18 1427 Hydralazine HCl (Hydralazine HCl) 25 Mg Tablet, 25 MG PO TID Prescribed by: ARAMIS ROD on 07/31/21 1937 Insulin Detemir (Levemir Flextouch) 100 Unit/1 Ml Insuln.pen, 25 UNIT SQ BID, (Reported) Entered as Reported by: VALENTINA العلي on 10/11/19 1034 Isosorbide Mononitrate (Isosorbide Mononitrate ER) 120 Mg Tab.er.24h, 120 MG PO DAILY, (Reported) Entered as Reported by: RASHIDA CLAROS on 10/10/19 1238 Omeprazole (Omeprazole) 40 Mg Capsule.dr, 40 MG PO DAILY, (Reported) Entered as Reported by: JOSE LUIS HUNTER on 12/11/20 1529 Tamsulosin HCl (Flomax) 0.4 Mg Cap, 0.4 MG PO DAILY, (Reported) Entered as Reported by: RASHIDA CLAROS on 10/10/19 1238 Past Mbfhvqo-Tjamaa-Czfgnp Hx Patient Social History Tobacco Use?: No Use of E-Cig and/or Vaping dev: No Substance use?: No Alcohol Use?: No Pt feels they are or have been: No Immunizations Up To Date Tetanus Booster (TDap): Less than 5yrs First/Initial COVID19 Vaccinat: January COVID19 Vaccination Zoltan: February COVID19 Vaccination Date: OCT 2021 Seasonal Allergies Seasonal Allergies: No Past Medical History Surgery/Hospitalization HX: diverticulitis, htn, bph, macular degeneration, iddm Surgeries: Yes (CARDIAC CATH --NO INTERVENTION) Cardiac Respiratory: Yes (Pneumonia patient states "when i was 1") Pneumonia Cardiac: Yes (CARDIAC CATH-NO INTERVENTION;NSTEMI 10/2019;[facility] RIGHT LEG EDEMA- US NEGATIVE) Chronic Edema/Swelling, Coronary Artery Disease, Heart Attack, High Cholesterol, Hypertension Neurological: Yes (PERIPHERAL NEUROPATHY) Neuropathy Genitourinary: Yes (Chronic kidney disease stage 3 ; GFR TYPICALLY IN 30'S) Prostate Problems, Renal Failure Gastrointestinal: Yes (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;DIVERTICULITIS-NO SURGERY) Diverticulosis, Gall Bladder Disease Musculoskeletal: No Endocrine: Yes (SELF MEDICATES WITH HIS INSULIN; OBESITY) Diabetes, Insulin dep HEENT: No (patient wears glasses ) Loss of Vision: Denies Hearing Impairment: Denies Cancer: No Psychosocial: No Integumentary: No Blood Disorders: No Family Medical History Cardiovascular disease 19 FATHER Hypertension 19 FATHER No Pertinent Family Hx, CAD Over 55 Years Old, Hypertension PAST SURGICAL HISTORY: -CARDIAC CATH 11/09/19--DIFFUSELY CALCIFIED CORONARY ARTERIES, SMALL VESSEL DISEASE, NO INTERVENTION - Physical Exam Vital Signs - First Documented 07/30/22 15:25 Temp 36.9 Pulse 93 Resp 16 B/P (MAP) 205/108 (140) Pulse Ox 90 O2 Delivery Nasal Cannula O2 Flow Rate 2.00 Capillary Refill : Height: 5'7.00" Weight: 200lbs. oz. 90.555035hj; 39.00 BMI Method:Estimated Progress/Results/Core Measures Suspected Sepsis SIRS Temperature: Pulse: 93 Respiratory Rate: 16 Laboratory Tests 07/30/22 15:35: White Blood Count 9.2 Blood Pressure 205 /108 Mean: 140 Laboratory Tests 07/30/22 15:35: Creatinine 1.73H, INR Comment 1.0, Platelet Count 245, Total Bilirubin 0.6 Results/Orders Lab Results Laboratory Tests Test 07/30/22 15:35 07/30/22 15:37 Range/Units White Blood Count 9.2 4.3-11.0 10^3/uL Red Blood Count 4.28 L 4.30-5.52 10^6/uL Hemoglobin 12.4 L 13.3-17.7 g/dL Hematocrit 40 40-54 % Mean Corpuscular Volume 94 80-99 fL Mean Corpuscular Hemoglobin 29 25-34 pg Mean Corpuscular Hemoglobin Concent 31 L 32-36 g/dL Red Cell Distribution Width 14.8 H 10.0-14.5 % Platelet Count 245 130-400 10^3/uL Mean Platelet Volume 10.0 9.0-12.2 fL Immature Granulocyte % (Auto) 0 % Neutrophils (%) (Auto) 73 42-75 % Lymphocytes (%) (Auto) 15 12-44 % Monocytes (%) (Auto) 11 0-12 % Eosinophils (%) (Auto) 1 0-10 % Basophils (%) (Auto) 0 0-10 % Neutrophils # (Auto) 6.7 1.8-7.8 10^3/uL Lymphocytes # (Auto) 1.4 1.0-4.0 10^3/uL Monocytes # (Auto) 1.0 0.0-1.0 10^3/uL Eosinophils # (Auto) 0.1 0.0-0.3 10^3/uL Basophils # (Auto) 0.0 0.0-0.1 10^3/uL Immature Granulocyte # (Auto) 0.0 0.0-0.1 10^3/uL Prothrombin Time 13.6 12.2-14.7 SEC INR Comment 1.0 0.8-1.4 Activated Partial Thromboplast Time 35 24-35 SEC Sodium Level 144 135-145 MMOL/L Potassium Level 4.1 3.6-5.0 MMOL/L Chloride Level 106 98-107 MMOL/L Carbon Dioxide Level 26 21-32 MMOL/L Anion Gap 12 5-14 MMOL/L Blood Urea Nitrogen 22 H 7-18 MG/DL Creatinine 1.73 H 0.60-1.30 MG/DL Estimat Glomerular Filtration Rate 39 BUN/Creatinine Ratio 13 Glucose Level 219 H 70-105 MG/DL Calcium Level 8.5 8.5-10.1 MG/DL Corrected Calcium 9.1 8.5-10.1 MG/DL Magnesium Level 2.1 1.6-2.4 MG/DL Total Bilirubin 0.6 0.1-1.0 MG/DL Aspartate Amino Transf (AST/SGOT) 21 5-34 U/L Alanine Aminotransferase (ALT/SGPT) 21 0-55 U/L Alkaline Phosphatase 90 40-136 U/L Myoglobin 207.4 H 10.0-92.0 NG/ML Troponin I < 0.028 <0.028 NG/ML B-Type Natriuretic Peptide 184.6 H <100.0 PG/ML Total Protein 6.9 6.4-8.2 GM/DL Albumin 3.3 3.2-4.5 GM/DL Influenza Type A (RT-PCR) Not Detected Not Detecte Influenza Type B (RT-PCR) Not Detected Not Detecte SARS-CoV-2 RNA (RT-PCR) Not Detected Not Detecte My Orders Orders - EDDY DELEON APRN Hydralazine Injection (Apresoline Inject (07/30/22 16:45) Medications Given in ED Current Medications Medications Dose Ordered Sig/Laya Route Start Time Stop Time Status Last Admin Dose Admin Hydralazine HCl 20 mg ONCE ONCE IV 07/30/22 16:45 07/30/22 16:46 DC 07/30/22 17:01 20 MG Vital Signs/I&O 07/30/22 07/30/22 15:25 15:25 Temp 36.9 Pulse 93 Resp 16 B/P (MAP) 205/108 (140) Pulse Ox 90 96 O2 Delivery Nasal Cannula O2 Flow Rate 2.00 Capillary Refill : Blood Pressure Mean: 140 Departure Impression Primary Impression: HTN (hypertension) Additional Impression: Congestive heart failure (CHF) Disposition: HOME, SELF-CARE Condition: Improved Departure-Patient Inst. Decision time for Depature: 17:27 Referrals: BRADY MADDOX MD (PCP/Family) Primary Care Physician Patient Instructions: Heart Failure ED Add. Discharge Instructions: Plan: 1. Call Dr. Maddox's office in follow-up so you can have your Lasix refilled. 2. Continue to take your antihypertensives as directed. 3. Limit the amount of salt to eat, higher salt intake will cause you to retain more fluid. 4. Weigh yourself daily, if you have more than a 5 pound weight gain please call your doctor or return to the ER. 5. Return to the ER for any new, concerning, worsening symptoms. All discharge instructions reviewed with patient and/or family. Voiced understanding. EDDY DELEON HISTORICAL GUIDE Jul 30, 2022 17:16
[2022-07-30] MEDS ORDERED: FUROSEMIDE 40 MG/4 ML INJ (LASIX) IVP ONE (17:30)
[2022-07-30 18:02] VITALS: BP 150/77
== END 2022-07-30 18:02 | disposition home or self-care (01) ==
LOC: EDUNIT# 15:18 → ER 15:20
DX: I13.0 Hypertensive heart and chronic kidney disease with heart failure and stage 1 through stage 4 chronic kidney disease, or unspecified chronic kidney disease (principal); I50.9 Heart failure, unspecified; N18.30 Chronic kidney disease, stage 3 unspecified; E11.22 Type 2 diabetes mellitus with diabetic chronic kidney disease; E11.42 Type 2 diabetes mellitus with diabetic polyneuropathy; E66.9 Obesity, unspecified; Z98.61 Coronary angioplasty status; Z68.39 Body mass index [BMI] 39.0-39.9, adult; Z20.822 Contact with and (suspected) exposure to COVID-19; Z79.4 Long term (current) use of insulin
CPT/HCPCS: 36415; 71045; 80053; 83735; 83874; 83880; 84484; 85025; 85610; 85730; 87636; 93005; 93041

== ENCOUNTER 2022-11-14 14:27 | Emergency (ER) | payer MEDICARE ==
[~2022-11-14] VITALS: Ht 167 cm; Wt 117.0 kg
[~2022-11-14 14:27] MED LIST changes: +ALBU8.5H6 IH; -RT-ALBUINH IH
--- NOTE | 2022-11-14 14:31 | ED Cardiac General ---
History of Present Illness General Chief Complaint: Cardiac/General Problems Stated Complaint: HYPERTENSION Source: patient History of Present Illness Date Seen by Provider: Nov 14, 2022 Time Seen by Provider: 14:31 Initial Comments Patient is an 82-year-old male who presents to the emergency department today with a chief complaint of having high blood pressure. Patient states that he woke up at 5 AM this morning, took his routine blood pressure medications and went back to sleep. He states he woke up a little while later due to his high blood pressure. He then, after more questioning stated that he always checks his blood pressure when he gets up. He states it was in the upper 200s over 100 range. He denied any symptoms at the time although he states that during his ambulance ride he became nauseated. He is also a diabetic, he has a Dexcom. His blood sugar is currently in the 220 range. He states his normal blood pressure is 130s over 80s. His blood sugar is not always in the 200 range. He states recently he has had trouble urinating. Denies dysuria. He was treated for urinary tract infection a couple of months ago. He transition from Dr. Maddox to Dr. Owusu's office. He states once he checked his blood pressure and noticed that it was high after he got up he took extra hydralazine and 100 mg more of losartan. Currently he is in the 170s over 90s. He denies headache, blurry vision. No chest pain. He has a little shortness of breath. No abdominal pain. No diarrhea. He is more usually constipated. No fevers or chills. He is COVID vaccinated with 2 boosters. He is not on any blood thinners and has no known history of coronary artery disease. Denies sick contacts. Lives alone, states that home health comes once a month. Comes in disheveled, looking like he feels ill, dirty stained shirt. Overall poor hygiene. Timing/Duration: 1-3 hours Severity: moderate NTG SL AIRCONDITIONING ENGINEER: No ASA po AIRCONDITIONING ENGINEER: No Associated Systoms: Nausea/Vomiting (nausea without vomiting), Shortness of Air (minimal) Allergies and Home Medications Allergies Coded Allergies: Sulfa (Sulfonamide Antibiotics) (Unverified Allergy, Unknown, 10/10/19) Patient Home Medication List Home Medication List Reviewed: Yes Amoxicillin/Potassium Clav (Augmentin 500-125 Tablet) 500 Mg-125 Mg Tablet, 1 EACH PO BID Prescribed by: CORTEZ CASTAÑEDA on 06/28/222112 Carvedilol (Carvedilol) 12.5 Mg Tablet, 25 MG PO BID Prescribed by: MARIO SULLIVAN on 12/19/20 1239 Clonidine HCl (Clonidine HCl) 0.3 Mg Tablet, 0.3 MG PO BID Prescribed by: MARIO SULLIVAN on 12/20/20 1451 Finasteride (Finasteride) 5 Mg Tablet, 5 MG PO DAILY Prescribed by: MARIO SULLIVAN on 12/19/20 1239 Fluticasone Propionate (Fluticasone Propionate) 16 Gm [place].susp, 1 SPRAY NSEACH DAILY, (Reported) Entered as Reported by: JOSE LUIS HUNTER on 12/11/20 1529 Furosemide (Furosemide) 40 Mg Tablet, 40 MG PO DAILY, (Reported) Entered as Reported by: ALECIA HERRERA on 10/17/18 1427 Hydralazine HCl (Hydralazine HCl) 25 Mg Tablet, 25 MG PO TID Prescribed by: ARAMIS ROD on 07/31/21 193 Insulin Detemir (Levemir Flextouch) 100 Unit/1 Ml Insuln.pen, 25 UNIT SQ BID, (Reported) Entered as Reported by: VALENTINA العلي on 10/11/19 1034 Isosorbide Mononitrate (Isosorbide Mononitrate ER) 120 Mg Tab.er.24h, 120 MG PO DAILY, (Reported) Entered as Reported by: RASHIDA CLAROS on 10/10/19 1238 Omeprazole (Omeprazole) 40 Mg Capsule.dr, 40 MG PO DAILY, (Reported) Entered as Reported by: JOSE LUIS HUNTER on 12/11/20 1529 Tamsulosin HCl (Flomax) 0.4 Mg Cap, 0.4 MG PO DAILY, (Reported) Entered as Reported by: RASHIDA CLAROS on 10/10/19 1238 Review of Systems Review of Systems Constitutional: see HPI EENTM: No Symptoms Reported Respiratory: Shortness of Air (mild) Cardiovascular: No Symptoms Reported Gastrointestinal: No Symptoms Reported Genitourinary: Other (hesitancy) Musculoskeletal: no symptoms reported Skin: no symptoms reported Psychiatric/Neurological: No Symptoms Reported All Other Systems Reviewed Negative Unless Noted: Yes Past Nupigsx-Saumoj-Cwkios Hx Immunizations Up To Date Tetanus Booster (TDap): Less than 5yrs First/Initial COVID19 Vaccinat: January COVID19 Vaccination Zoltan: February COVID19 Vaccination Date: OCT 2021 Seasonal Allergies Seasonal Allergies: No Past Medical History Surgery/Hospitalization HX: diverticulitis, htn, bph, macular degeneration, iddm Surgeries: Yes (CARDIAC CATH --NO INTERVENTION) Cardiac Respiratory: Yes (Pneumonia patient states "when i was 1") Pneumonia Cardiac: Yes (CARDIAC CATH-NO INTERVENTION;NSTEMI 10/2019;[facility] RIGHT LEG EDEMA- US NEGATIVE) Chronic Edema/Swelling, Coronary Artery Disease, Heart Attack, High Cholesterol, Hypertension Neurological: Yes (PERIPHERAL NEUROPATHY) Neuropathy Genitourinary: Yes (Chronic kidney disease stage 3 ; GFR TYPICALLY IN 30'S) Prostate Problems, Renal Failure Gastrointestinal: Yes (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;DIVERTICULITIS-NO SURGERY) Diverticulosis, Gall Bladder Disease Musculoskeletal: No Endocrine: Yes (SELF MEDICATES WITH HIS INSULIN; OBESITY) Diabetes, Insulin dep HEENT: No (patient wears glasses ) Loss of Vision: Denies Hearing Impairment: Denies Cancer: No Psychosocial: No Integumentary: No Blood Disorders: No Family Medical History Cardiovascular disease 19 FATHER Hypertension 19 FATHER No Pertinent Family Hx, CAD Over 55 Years Old, Hypertension PAST SURGICAL HISTORY: -CARDIAC CATH 11/09/19--DIFFUSELY CALCIFIED CORONARY ARTERIES, SMALL VESSEL DISEASE, NO INTERVENTION - Physical Exam Vital Signs Vital Signs - First Documented 11/14/22 14:27 Temp 36.0 Pulse 81 Resp 16 B/P (MAP) 179/94 (122) Pulse Ox 94 Capillary Refill : Height, Weight, BMI Height: 5'7.00" Weight: 200lbs. oz. [id number]; 39.00 BMI Method:Estimated General Appearance: No Apparent Distress, WD/WN, Other (appears to feel ill; interrupted my HPI with him to answer his phone; disheveled, dirty/stained shirt; ) HEENT: Other (slightly dry oral mucosa) Neck: Normal Inspection, Supple Respiratory: Lungs Clear, Normal Breath Sounds, No Accessory Muscle Use, No Respiratory Distress Cardiovascular: Regular Rate, Rhythm, Normal Peripheral Pulses, Systolic Murmur (Left upper sternal order) Gastrointestinal: Non Tender, Soft Neurologic/Psychiatric: Alert, Oriented x3, No Motor/Sensory Deficits Skin: Normal Color, Warm/Dry, Ecchymosis (to left arm) Progress/Results/Core Measures Results/Orders Lab Results Laboratory Tests Test 11/14/22 14:30 11/14/22 15:37 Range/Units White Blood Count 9.6 4.3-11.0 10^3/uL Red Blood Count 4.54 4.30-5.52 10^6/uL Hemoglobin 13.0 L 13.3-17.7 g/dL Hematocrit 41 40-54 % Mean Corpuscular Volume 90 80-99 fL Mean Corpuscular Hemoglobin 29 25-34 pg Mean Corpuscular Hemoglobin Concent 32 32-36 g/dL Red Cell Distribution Width 14.0 10.0-14.5 % Platelet Count 243 130-400 10^3/uL Mean Platelet Volume 9.9 9.0-12.2 fL Immature Granulocyte % (Auto) 0 % Neutrophils (%) (Auto) 70 42-75 % Lymphocytes (%) (Auto) 18 12-44 % Monocytes (%) (Auto) 10 0-12 % Eosinophils (%) (Auto) 1 0-10 % Basophils (%) (Auto) 0 0-10 % Neutrophils # (Auto) 6.7 1.8-7.8 10^3/uL Lymphocytes # (Auto) 1.8 1.0-4.0 10^3/uL Monocytes # (Auto) 1.0 0.0-1.0 10^3/uL Eosinophils # (Auto) 0.1 0.0-0.3 10^3/uL Basophils # (Auto) 0.0 0.0-0.1 10^3/uL Immature Granulocyte # (Auto) 0.0 0.0-0.1 10^3/uL Sodium Level 137 135-145 MMOL/L Potassium Level 5.1 H 3.6-5.0 MMOL/L Chloride Level 103 98-107 MMOL/L Carbon Dioxide Level 28 21-32 MMOL/L Anion Gap 6 5-14 MMOL/L Blood Urea Nitrogen 27 H 7-18 MG/DL Creatinine 1.89 H 0.60-1.30 MG/DL Estimat Glomerular Filtration Rate 35 BUN/Creatinine Ratio 14 Glucose Level 201 H 70-105 MG/DL Calcium Level 8.8 8.5-10.1 MG/DL Urine Color YELLOW Urine Clarity CLEAR Urine pH 8.5 5-9 Urine Specific [place] 1.015 L 1.016-1.022 Urine Protein 1+ H NEGATIVE Urine Glucose (UA) NEGATIVE NEGATIVE Urine Ketones NEGATIVE NEGATIVE Urine Nitrite NEGATIVE NEGATIVE Urine Bilirubin NEGATIVE NEGATIVE Urine Urobilinogen 0.2 < = 1.0 MG/DL Urine Leukocyte Esterase NEGATIVE NEGATIVE Urine RBC (Auto) NEGATIVE NEGATIVE Urine RBC RARE /HPF Urine WBC NONE /HPF Urine Squamous Epithelial Cells RARE /HPF Urine Crystals NONE /LPF Urine Bacteria NEGATIVE /HPF Urine Casts NONE /LPF Urine Mucus NEGATIVE /LPF Urine Culture Indicated NO My Orders Orders - ROGERS BRIGGS MD Ed Iv/Invasive Line Start (11/14/22 14:41) Cbc With Automated Diff (11/14/22 14:41) Basic Metabolic Panel (11/14/22 14:41) Ua Culture If Indicated (11/14/22 14:41) Ondansetron Injection (Zofran Injectio (11/14/22 14:45) Medications Given in ED Current Medications Medications Dose Ordered Sig/Laya Route Start Time Stop Time Status Last Admin Dose Admin Ondansetron HCl 4 mg ONCE ONCE IVP 11/14/22 14:45 11/14/22 14:46 DC 11/14/22 14:57 4 MG Vital Signs/I&O 11/14/22 14:27 Temp 36.0 Pulse 81 Resp 16 B/P (MAP) 179/94 (122) Pulse Ox 94 Progress Progress Note : Time: 16:29 Progress Note Patient seen and examined by me, 82-year-old male who presented from home chief complaint of elevated blood pressure. Also some nausea. Evaluation today includes physical exam, CBC, BMP and urinalysis. His labs are reviewed, his CBC is normal. BMP reveals some chronic stable kidney disease, slightly high blood sugar at 201, his potassium was mildly elevated at 5.1. None of these required acute intervention. His urinalysis was not remarkable for any evidence of infection. His blood pressure has continued to trend down. 160s over 90s. I did call the pharmacy, he stated that he used [facility] pharmacy. They stated they had active prescriptions for carvedilol 25 mg twice daily as well as losartan 50 mg twice daily. The patient states that he also takes hydralazine however the pharmacy states they have not filled that in many many months. He also told me that he had isosorbide however they had no active prescription for that nor clonidine. Patient is given his p.m. doses of carvedilol and losartan. He states his nausea is improved. He has no complaints currently. He did see Dr. Owusu for the first time last week. He is going to call tomorrow for a follow-up appointment sooner than February which is when he is scheduled next. No clinical or objective findings to warrant further testing from the emergency department or admission. No findings concerning for urinary tract infection, acute cardiac complaints, acute abdominal complaints. Patient is comfortable with discharge. He is somewhat concerned that his blood pressure still higher than he would like. Patient is given reassurance. No findings concerning for acute endorgan process. Departure Impression Primary Impression: High blood pressure Qualified Codes: I10 - Essential (primary) hypertension Additional Impressions: CKD (chronic kidney disease) Qualified Codes: N18.9 - Chronic kidney disease, unspecified Hyperglycemia due to diabetes mellitus Disposition: HOME, SELF-CARE Condition: Improved Departure-Patient Inst. Decision time for Depature: 16:33 Referrals: GAYLE OWUSU DO Patient Instructions: High Blood Pressure Emergencies Add. Discharge Instructions: Continue to take your blood pressure medications as prescribed by your family doctor. Try and avoid high salt foods as this will cause you to retain water and increase your blood pressure. Try and avoid things such as canned vegetables, soda, etc. If you develop worsening shortness of breath or nausea, leg swelling please come back to the emergency room for reevaluation. Please follow-up as scheduled with your primary care doctor. Return to the emergency department for any new, concerning or emergent co mplaints Copy Copies To 1: GAYLE OWUSU KATHRYN M MD Nov 14, 2022 14:31
[2022-11-14] MEDS ORDERED: ONDANSETRON 4 MG/2 ML (SDV) Z0FRAN IVP ONE (14:45)
[2022-11-14 14:54] LABS: BASOPHILS % (AUTO) 0 % (0-10); EOSINOPHILS # (AUTO) 0.1 10^3/uL (0.0-0.3); EOSINOPHILS % (AUTO) 1 % (0-10); HEMATOCRIT 41 % (40-54); LYMPHOCYTES # (AUTO) 1.8 10^3/uL (1.0-4.0); LYMPHOCYTES % (AUTO) 18 % (12-44); MEAN CORPUSCULAR HEMOGLOBIN 29 pg (25-34); MEAN CORPUSCULAR HGB CONC 32 g/dL (32-36); MEAN CORPUSCULAR VOLUME 90 fL (80-99); MEAN PLATELET VOLUME 9.9 fL (9.0-12.2); MONOCYTES % (AUTO) 10 % (0-12); NEUTROPHILS # (AUTO) 6.7 10^3/uL (1.8-7.8); NEUTROPHILS % (AUTO) 70 % (42-75); PLATELET COUNT 243 10^3/uL (130-400); WHITE BLOOD COUNT 9.6 10^3/uL (4.3-11.0)
[2022-11-14 15:04] LABS: CALCIUM 8.8 MG/DL (8.5-10.1); CREATININE SERUM 1.89 MG/DL (0.60-1.30); POTASSIUM 5.1 MMOL/L (3.6-5.0)
[2022-11-14 15:42] LABS: BILIRUBIN,URINE NEGATIVE (NEGATIVE); CLARITY,URINE CLEAR; COLOR,URINE YELLOW; GLUCOSE, URINE (UA) NEGATIVE (NEGATIVE); KETONES,URINE NEGATIVE (NEGATIVE); LEUKOCYTE ESTERASE ,URINE NEGATIVE (NEGATIVE); NITRITE,URINE NEGATIVE (NEGATIVE); PH,URINE 8.5 (5-9); PROTEIN,URINE 1+ (NEGATIVE)
[2022-11-14 15:58] LABS: BACTERIA,URINE NEGATIVE /HPF; RBC,URINE RARE /HPF; SQUAMOUS EPITHELIAL CELL,UR RARE /HPF
[2022-11-14] MEDS ORDERED: LOSARTAN 50 MG (COZAAR) TAB PO ONE (16:30)
[2022-11-14 16:46] VITALS: BP 155/91
== END 2022-11-14 16:49 | disposition home or self-care (01) ==
LOC: EDUNIT# 14:27 → ER 14:28
DX: I12.9 Hypertensive chronic kidney disease with stage 1 through stage 4 chronic kidney disease, or unspecified chronic kidney disease (principal); E11.22 Type 2 diabetes mellitus with diabetic chronic kidney disease; N18.30 Chronic kidney disease, stage 3 unspecified; E11.65 Type 2 diabetes mellitus with hyperglycemia; E87.5 Hyperkalemia; E66.9 Obesity, unspecified; Z68.41 Body mass index [BMI] 40.0-44.9, adult; Z79.4 Long term (current) use of insulin; Z28.310 Unvaccinated for COVID-19
CPT/HCPCS: 36415; 80048; 81000; 85025; 99283

== ENCOUNTER 2023-03-18 14:25 | Emergency (ER) | payer MEDICARE ==
[~2023-03-18] VITALS: Ht 167 cm; Wt 113.0 kg
[~2023-03-18 14:25] MED LIST changes: -INSU100I29 SC; -INSU100I29 SQ; +INSU100I30 SC; +INSU100I30 SQ
--- NOTE | 2023-03-18 14:51 | ED General ---
General Chief Complaint: General Problems/Pain Stated Complaint: LETHARGY | HEADACHE Nursing Triage Note: PT AMBULATORY TO ER WITH FAMILY. PT REPORTS STARTED TAKING UNISOM APPROX 1.5 WEEKS AGO, STATES HAS 'FELT BAD' SINCE THEN. PT ARRIVES WITH VAGUE COMPLAINTS OF TIREDNESS AND FATIGUE. PT DOES REPORT TO FEELING SOB FOR THE PAST WEEK. Source of Information: Patient Exam Limitations: No Limitations History of Present Illness Date Seen by Provider: March 18, 2023 Time Seen by Provider: 14:40 Initial Comments 82-year-old male presents to the ER with complaints of "I feel terrible." Reports he has felt this way approximately 1 week. He reports shortness of air and headaches. States that he has been fatigued, lying down all day. Reports that his shortness of air is worse with exertion, states that he is not short of air when he is resting. States that when he is resting he feels better. He reports some swelling in his lower extremities, states edema is normal for him. States that a week ago he started taking Unisom for sleep, states that his symptoms started around the same time. He states that he does not sleep well, states he often lays in bed all night until about 6 AM and then sleeps from 6 AM to noon. Denies fever, chest pain, abdominal pain, vomiting, diarrhea. Does report some nausea. Allergies and Home Medications Allergies Coded Allergies: Sulfa (Sulfonamide Antibiotics) (Unverified Allergy, Unknown, 10/10/19) Patient Home Medication List Home Medication List Reviewed: Yes Amoxicillin/Potassium Clav (Augmentin 500-125 Tablet) 500 Mg-125 Mg Tablet, 1 EACH PO BID Prescribed by: CORTEZ CASTAÑEDA on 06/28/222112 Carvedilol (Carvedilol) 12.5 Mg Tablet, 25 MG PO BID Prescribed by: MARIO SULLIVAN on 12/19/20 1239 Clonidine HCl (Clonidine HCl) 0.3 Mg Tablet, 0.3 MG PO BID Prescribed by: MARIO SULLIVAN on 12/20/20 1451 Finasteride (Finasteride) 5 Mg Tablet, 5 MG PO DAILY Prescribed by: MARIO SULLIVAN on 12/19/20 1239 Fluticasone Propionate (Fluticasone Propionate) 16 Gm [place].susp, 1 SPRAY NSEACH DAILY, (Reported) Entered as Reported by: JOSE LUIS HUNTER on 12/11/20 1529 Furosemide (Furosemide) 40 Mg Tablet, 40 MG PO DAILY, (Reported) Entered as Reported by: ALECIA HERRERA on 10/17/18 1427 Hydralazine HCl (Hydralazine HCl) 25 Mg Tablet, 25 MG PO TID Prescribed by: ARAMIS ROD on 07/31/21 1937 Insulin Detemir (Levemir Flextouch) 100 Unit/1 Ml Insuln.pen, 25 UNIT SQ BID, (Reported) Entered as Reported by: VALENTINA العلي on 10/11/19 1034 Isosorbide Mononitrate (Isosorbide Mononitrate ER) 120 Mg Tab.er.24h, 120 MG PO DAILY, (Reported) Entered as Reported by: RASHIDA CLAROS on 10/10/19 1238 Omeprazole (Omeprazole) 40 Mg Capsule.dr, 40 MG PO DAILY, (Reported) Entered as Reported by: JOSE LUIS HUNTER on 12/11/20 1529 Tamsulosin HCl (Flomax) 0.4 Mg Cap, 0.4 MG PO DAILY, (Reported) Entered as Reported by: RASHIDA CLAROS on 10/10/19 1238 Review of Systems Review of Systems Constitutional: see HPI Past Rifyjux-Eejuvp-Twtxxa Hx Patient Social History Tobacco Use?: No Use of E-Cig and/or Vaping dev: No Substance use?: No Alcohol Use?: No Pt feels they are or have been: No Immunizations Up To Date Tetanus Booster (TDap): Less than 5yrs First/Initial COVID19 Vaccinat: RECEIVED, UNK WHEN Second COVID19 Vaccination Zoltan: RECEIVED, UNK WHEN Third COVID19 Vaccination Date: RECEIVED, UNK WHEN COVID19 Vaccine Senior Environmental Practice Leader: UNK Seasonal Allergies Seasonal Allergies: No Past Medical History Surgery/Hospitalization HX: diverticulitis, htn, bph, macular degeneration, iddm Surgeries: Yes (CARDIAC CATH --NO INTERVENTION) Cardiac Respiratory: Yes (Pneumonia patient states "when i was 1") Pneumonia Cardiac: Yes (CARDIAC CATH-NO INTERVENTION;NSTEMI 10/2019;[facility] RIGHT LEG EDEMA- US NEGATIVE) Chronic Edema/Swelling, Coronary Artery Disease, Heart Attack, High Cholesterol, Hypertension Neurological: Yes (PERIPHERAL NEUROPATHY) Neuropathy Genitourinary: Yes (Chronic kidney disease stage 3 ; GFR TYPICALLY IN 30'S) Prostate Problems, Renal Failure Gastrointestinal: Yes (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;DIVERTICULITIS-NO SURGERY) Diverticulosis, Gall Bladder Disease Musculoskeletal: No Endocrine: Yes (SELF MEDICATES WITH HIS INSULIN; OBESITY) Diabetes, Insulin dep HEENT: No (patient wears glasses ) Loss of Vision: Denies Hearing Impairment: Denies Cancer: No Psychosocial: No Integumentary: No Blood Disorders: No Family Medical History Cardiovascular disease 19 FATHER Hypertension 19 FATHER No Pertinent Family Hx, CAD Over 55 Years Old, Hypertension PAST SURGICAL HISTORY: -CARDIAC CATH 11/09/19--DIFFUSELY CALCIFIED CORONARY ARTERIES, SMALL VESSEL DISEASE, NO INTERVENTION - Physical Exam Vital Signs Vital Signs - First Documented 03/18/23 14:28 Temp 36.8 Pulse 87 Resp 18 B/P (MAP) 164/90 (114) Pulse Ox 94 O2 Delivery Room Air Capillary Refill : Height, Weight, BMI Height: 5'7.00" Weight: 200lbs. oz. 90.230646zm; 40.00 BMI Method:Estimated General Appearance: No Apparent Distress, WD/WN Neck: Normal Inspection, Supple Respiratory: Lungs Clear, Normal Breath Sounds, No Accessory Muscle Use, No Respiratory Distress Cardiovascular: Regular Rate, Rhythm, No Edema Extremity: Normal Inspection, Normal Range of Motion, No Pedal Edema Neurologic/Psychiatric: Alert, Normal Mood/Affect Skin: Normal Color, Warm/Dry Progress/Results/Core Measures Suspected Sepsis SIRS Temperature: Pulse: 87 Respiratory Rate: 18 Laboratory Tests 03/18/23 14:51: White Blood Count 7.7 Blood Pressure 164 /90 Mean: 114 Laboratory Tests 03/18/23 14:51: Creatinine 1.81H, Platelet Count 274, Total Bilirubin 0.7 Results/Orders Lab Results Laboratory Tests Test 03/18/23 14:51 03/18/23 14:57 03/18/23 16:24 Range/Units White Blood Count 7.7 4.3-11.0 10^3/uL Red Blood Count 4.81 4.30-5.52 10^6/uL Hemoglobin 14.0 13.3-17.7 g/dL Hematocrit 44 40-54 % Mean Corpuscular Volume 90 80-99 fL Mean Corpuscular Hemoglobin 29 25-34 pg Mean Corpuscular Hemoglobin Concent 32 32-36 g/dL Red Cell Distribution Width 13.4 10.0-14.5 % Platelet Count 274 130-400 10^3/uL Mean Platelet Volume 9.5 9.0-12.2 fL Immature Granulocyte % (Auto) 0 % Neutrophils (%) (Auto) 63 42-75 % Lymphocytes (%) (Auto) 24 12-44 % Monocytes (%) (Auto) 10 0-12 % Eosinophils (%) (Auto) 2 0-10 % Basophils (%) (Auto) 0 0-10 % Neutrophils # (Auto) 4.9 1.8-7.8 10^3/uL Lymphocytes # (Auto) 1.8 1.0-4.0 10^3/uL Monocytes # (Auto) 0.8 0.0-1.0 10^3/uL Eosinophils # (Auto) 0.2 0.0-0.3 10^3/uL Basophils # (Auto) 0.0 0.0-0.1 10^3/uL Immature Granulocyte # (Auto) 0.0 0.0-0.1 10^3/uL Sodium Level 139 135-145 MMOL/L Potassium Level 4.3 3.6-5.0 MMOL/L Chloride Level 105 98-107 MMOL/L Carbon Dioxide Level 25 21-32 MMOL/L Anion Gap 9 5-14 MMOL/L Blood Urea Nitrogen 21 H 7-18 MG/DL Creatinine 1.81 H 0.60-1.30 MG/DL Estimat Glomerular Filtration Rate 36 BUN/Creatinine Ratio 12 Glucose Level 199 H 70-105 MG/DL Calcium Level 8.8 8.5-10.1 MG/DL Corrected Calcium 9.2 8.5-10.1 MG/DL Magnesium Level 1.9 1.6-2.4 MG/DL Total Bilirubin 0.7 0.1-1.0 MG/DL Aspartate Amino Transf (AST/SGOT) 20 5-34 U/L Alanine Aminotransferase (ALT/SGPT) 14 0-55 U/L Alkaline Phosphatase 73 40-136 U/L B-Type Natriuretic Peptide 108.9 H <100.0 PG/ML Total Protein 7.4 6.4-8.2 GM/DL Albumin 3.5 3.2-4.5 GM/DL SARS-CoV-2 RNA (RT-PCR) Not Detected Not Detecte Urine Color YELLOW Urine Clarity SL CLOUDY Urine pH 7.0 5-9 Urine Specific [place] 1.010 L 1.016-1.022 Urine Protein 2+ H NEGATIVE Urine Glucose (UA) NEGATIVE NEGATIVE Urine Ketones NEGATIVE NEGATIVE Urine Nitrite NEGATIVE NEGATIVE Urine Bilirubin NEGATIVE NEGATIVE Urine Urobilinogen 0.2 < = 1.0 MG/DL Urine Leukocyte Esterase NEGATIVE NEGATIVE Urine RBC (Auto) NEGATIVE NEGATIVE Urine RBC 0-2 /HPF Urine WBC NONE /HPF Urine Squamous Epithelial Cells 0-2 /HPF Urine Crystals NONE /LPF Urine Bacteria NEGATIVE /HPF Urine Casts NONE /LPF Urine Mucus NEGATIVE /LPF Urine Culture Indicated NO My Orders Orders - ELVIN MALHOTRA APRN Cbc With Automated Diff (03/18/23 14:46) Magnesium (03/18/23 14:46) Chest 1 View, Ap/Pa Only (03/18/23 14:46) Ekg Tracing (03/18/23 14:46) Comprehensive Metabolic Panel (03/18/23 14:46) Ed Iv/Invasive Line Start (03/18/23 14:46) Bnp Nathan (03/18/23 14:46) Covid 19 Inhouse Test (03/18/23 14:51) Ua Culture If Indicated (03/18/23 15:39) Vital Signs/I&O 03/18/23 14:28 Temp 36.8 Pulse 87 Resp 18 B/P (MAP) 164/90 (114) Pulse Ox 94 O2 Delivery Room Air Capillary Refill : Blood Pressure Mean: 114 Progress Note : Progress Note Patient seen and evaluated, resting comfortably in bed, no acute distress. Based on exam and symptoms, work-up initiated, CBC, CMP, magnesium, COVID, chest x-ray, EKG. ECG Initial ECG Impression Date: March 18, 2023 Initial ECG Impression Time: 14:57 Initial ECG Rate: 78 Initial ECG Rhythm: Normal Sinus Initial ECG Intervals: Normal Initial ECG Impression: Normal Initial ECG Comparisson: Unchanged Departure Impression Primary Impression: Shortness of breath Additional Impressions: Fatigue Chronic kidney disease Disposition: 01 HOME, SELF-CARE Condition: Stable Departure-Patient Inst. Decision time for Depature: 16:48 Referrals: GAYLE OWUSU DO (PCP/Family) Primary Care Physician Patient Instructions: Shortness of Breath, Adult ED Add. Discharge Instructions: Follow-up with Dr. Owusu this week. Complete your stress test and echo as planned. Return for chest pain, worsening shortness of breath, or any other new, concerning, or worsening symptoms. All discharge instructions reviewed with patient and/or family. Voiced understanding. ELVIN MALHOTRA MINE ANALYST March 18, 2023 14:51
[2023-03-18 14:54] LABS: BASOPHILS % (AUTO) 0 % (0-10); EOSINOPHILS # (AUTO) 0.2 10^3/uL (0.0-0.3); EOSINOPHILS % (AUTO) 2 % (0-10); HEMATOCRIT 44 % (40-54); LYMPHOCYTES # (AUTO) 1.8 10^3/uL (1.0-4.0); LYMPHOCYTES % (AUTO) 24 % (12-44); MEAN CORPUSCULAR HEMOGLOBIN 29 pg (25-34); MEAN CORPUSCULAR HGB CONC 32 g/dL (32-36); MEAN CORPUSCULAR VOLUME 90 fL (80-99); MEAN PLATELET VOLUME 9.5 fL (9.0-12.2); MONOCYTES # (AUTO) 0.8 10^3/uL (0.0-1.0); MONOCYTES % (AUTO) 10 % (0-12); NEUTROPHILS # (AUTO) 4.9 10^3/uL (1.8-7.8); NEUTROPHILS % (AUTO) 63 % (42-75); PLATELET COUNT 274 10^3/uL (130-400); WHITE BLOOD COUNT 7.7 10^3/uL (4.3-11.0)
[2023-03-18 14:59] LABS: ALBUMIN 3.5 GM/DL (3.2-4.5); POTASSIUM 4.3 MMOL/L (3.6-5.0)
[2023-03-18 15:00] LABS: CALCIUM 8.8 MG/DL (8.5-10.1)
[2023-03-18 15:01] LABS: TOTAL PROTEIN 7.4 GM/DL (6.4-8.2)
[2023-03-18 15:03] LABS: BILIRUBIN,TOTAL 0.7 MG/DL (0.1-1.0)
[2023-03-18 15:05] LABS: CREATININE SERUM 1.81 MG/DL (0.60-1.30)
[2023-03-18 15:08] LABS: MAGNESIUM 1.9 MG/DL (1.6-2.4)
--- NOTE | 2023-03-18 15:14 | Diagnostic Imaging Report ---
INDICATION: Tiredness, fatigue, short of breath. COMPARISON: 07/30/2022. FINDINGS: The right diaphragm is elevated, chronic. The upper limits heart size is chronic. Some scarring or atelectatic changes in the left base are stable. No acute infiltrate, failure pattern, effusion, or pneumothorax. IMPRESSION: Stable chest. Dictated by: Dictated on workstation # [id number]
[2023-03-18 16:27] LABS: BILIRUBIN,URINE NEGATIVE (NEGATIVE); CLARITY,URINE SL CLOUDY; COLOR,URINE YELLOW; GLUCOSE, URINE (UA) NEGATIVE (NEGATIVE); KETONES,URINE NEGATIVE (NEGATIVE); LEUKOCYTE ESTERASE ,URINE NEGATIVE (NEGATIVE); NITRITE,URINE NEGATIVE (NEGATIVE); PROTEIN,URINE 2+ (NEGATIVE)
[2023-03-18 16:36] LABS: BACTERIA,URINE NEGATIVE /HPF; RBC,URINE 0-2 /HPF; SQUAMOUS EPITHELIAL CELL,UR 0-2 /HPF
[2023-03-18 16:54] VITALS: BP 162/95
== END 2023-03-18 16:54 | disposition home or self-care (01) ==
LOC: EDUNIT# 14:25 → ER 14:26
DX: I12.9 Hypertensive chronic kidney disease with stage 1 through stage 4 chronic kidney disease, or unspecified chronic kidney disease (principal); E11.22 Type 2 diabetes mellitus with diabetic chronic kidney disease; N18.30 Chronic kidney disease, stage 3 unspecified; E66.9 Obesity, unspecified; Z68.41 Body mass index [BMI] 40.0-44.9, adult; Z20.822 Contact with and (suspected) exposure to COVID-19
CPT/HCPCS: 36415; 51701; 71045; 80053; 81000; 83735; 83880; 85025; 87636; 93005

== ENCOUNTER → 2023-03-26 | Outpatient (CLI) | payer MEDICARE | LOC: CARD 12:00 | PROVIDERS: ATTEND Internal Medicine Cardiovascular Disease | DX: I35.8 Other nonrheumatic aortic valve disorders (principal); I25.10 Atherosclerotic heart disease of native coronary artery without angina pectoris | CPT/HCPCS: 93306 ==

== ENCOUNTER 2023-05-05 13:40 | Inpatient (IN) | payer MEDICARE ==
[~2023-05-05] VITALS: Ht 160 cm; Wt 114.8 kg
[~2023-05-05 13:40] MED LIST changes: -LOSA100T57 PO; +LOSA100T58 PO
--- NOTE | 2023-05-05 14:09 | ED Respiratory ---
General Chief Complaint: Respiratory Problems Stated Complaint: CAN'T BREATHE Nursing Triage Note: ARRIVED VIA WC TO ROOM 08 WITH COMPLAINTS OF SOA. Source: patient Exam Limitations: no limitations History of Present Illness Date Seen by Provider: May 05, 2023 Time Seen by Provider: 14:09 Initial Comments Patient is an 82-year-old male who lives alone who presents to the emergency department with a chief complaint of feeling short of breath over the last 24 hours. Patient tells me that he does not normally wear oxygen. His nurse Jennifer states that his room air oxygen was 88/89% on arrival. He denies chest pain, tightness, pressure or heaviness. Not have any productive cough. He has some right lower extremity edema that he states is chronic. He denies fevers or chills, congestion. He states yesterday he was drinking tomato juice and cranberry juice. He did not drink a lot of water and states that he "lost his hydration". He states he subsequently drank a lot of water and then became short of breath. No problems with bowel or bladder. No dysuria. No bloody stools. His primary care doctor is Dr. Owusu. He last saw her on April 16. No changes to his medications. Non-smoker. He tells me that he has never been told he has congestive heart failure. He is scheduled with Dr. Gloria for a stress test coming up. Recently had an echo in March - ef 55-60%. Timing/Duration: yesterday Severity: moderate Prior Episodes/Possible Cause: no prior episodes Associated Symptoms: shortness of breath Allergies and Home Medications Allergies Coded Allergies: Sulfa (Sulfonamide Antibiotics) (Unverified Allergy, Unknown, 10/10/19) Patient Home Medication List Home Medication List Reviewed: Yes Amoxicillin/Potassium Clav (Augmentin 500-125 Tablet) 500 Mg-125 Mg Tablet, 1 EACH PO BID Prescribed by: CORTEZ CASTAÑEDA on 06/28/222112 Carvedilol (Carvedilol) 12.5 Mg Tablet, 25 MG PO BID Prescribed by: MARIO SULLIVAN on 12/19/20 1239 Clonidine HCl (Clonidine HCl) 0.3 Mg Tablet, 0.3 MG PO BID Prescribed by: MARIO SULLIVAN on 12/20/20 1451 Finasteride (Finasteride) 5 Mg Tablet, 5 MG PO DAILY Prescribed by: MARIO SULLIVAN on 12/19/20 1239 Fluticasone Propionate (Fluticasone Propionate) 16 Gm Thermal.susp, 1 SPRAY NSEACH DAILY, (Reported) Entered as Reported by: JOSE LUIS HUNTER on 12/11/20 1529 Furosemide (Furosemide) 40 Mg Tablet, 40 MG PO DAILY, (Reported) Entered as Reported by: ALECIA HERRERA on 10/17/18 1427 Hydralazine HCl (Hydralazine HCl) 25 Mg Tablet, 25 MG PO TID Prescribed by: ARAMIS ROD on 07/31/21 193 Insulin Detemir (Levemir Flextouch) 100 Unit/1 Ml Insuln.pen, 25 UNIT SQ BID, (Reported) Entered as Reported by: VALENTINA العلي on 10/11/19 1034 Isosorbide Mononitrate (Isosorbide Mononitrate ER) 120 Mg Tab.er.24h, 120 MG PO DAILY, (Reported) Entered as Reported by: RASHIDA CLAROS on 10/10/19 1238 Omeprazole (Omeprazole) 40 Mg Capsule.dr, 40 MG PO DAILY, (Reported) Entered as Reported by: JOSE LUIS HUNTER on 12/11/20 1529 Tamsulosin HCl (Flomax) 0.4 Mg Cap, 0.4 MG PO DAILY, (Reported) Entered as Reported by: RASHIDA CLAROS on 10/10/19 1238 Review of Systems Review of Systems Constitutional: see HPI EENTM: no symptoms reported Respiratory: short of breath Cardiovascular: no symptoms reported Gastrointestinal: no symptoms reported Genitourinary: no symptoms reported Musculoskeletal: no symptoms reported All Other Systems Reviewed Negative Unless Noted: Yes Past Athkzsj-Fzlcal-Vfrdyj Hx Patient Social History Tobacco Use?: No Substance use?: No Alcohol Use?: No Immunizations Up To Date Tetanus Booster (TDap): Less than 5yrs First/Initial COVID19 Vaccinat: RECEIVED, UNK WHEN Second COVID19 Vaccination Zoltan: RECEIVED, UNK WHEN Third COVID19 Vaccination Date: RECEIVED, UNK WHEN Seasonal Allergies Seasonal Allergies: No Past Medical History Surgery/Hospitalization HX: diverticulitis, htn, bph, macular degeneration, iddm Surgeries: Yes (CARDIAC CATH --NO INTERVENTION) Cardiac Respiratory: Yes (Pneumonia patient states "when i was 1") Pneumonia Cardiac: Yes (CARDIAC CATH-NO INTERVENTION;NSTEMI 10/2019;[facility] RIGHT LEG EDEMA- US NEGATIVE) Chronic Edema/Swelling, Coronary Artery Disease, Heart Attack, High Cholesterol, Hypertension Neurological: Yes (PERIPHERAL NEUROPATHY) Neuropathy Genitourinary: Yes (Chronic kidney disease stage 3 ; GFR TYPICALLY IN 30'S) Prostate Problems, Renal Failure Gastrointestinal: Yes (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;DIVERTICULITIS-NO SURGERY) Diverticulosis, Gall Bladder Disease Musculoskeletal: No Endocrine: Yes (SELF MEDICATES WITH HIS INSULIN; OBESITY) Diabetes, Insulin dep HEENT: No (patient wears glasses ) Loss of Vision: Denies Hearing Impairment: Denies Cancer: No Psychosocial: No Integumentary: No Blood Disorders: No Family Medical History Cardiovascular disease 19 FATHER Hypertension 19 FATHER No Pertinent Family Hx, CAD Over 55 Years Old, Hypertension PAST SURGICAL HISTORY: -CARDIAC CATH 11/09/19--DIFFUSELY CALCIFIED CORONARY ARTERIES, SMALL VESSEL DISEASE, NO INTERVENTION - Physical Exam Vital Signs - First Documented 05/05/23 13:43 Temp 36.6 Pulse 91 Resp 20 B/P (MAP) 200/109 (139) Pulse Ox 88 O2 Delivery Room Air O2 Flow Rate 2.00 Capillary Refill : Height: 5'7.00" Weight: 200lbs. oz. 90.653561lj; 44.00 BMI Method:Estimated General Appearance: WD/WN, obese Eyes: Bilateral Eye Normal Inspection, Bilateral Eye PERRL, Bilateral Eye EOMI HEENT: PERRL/EOMI Respiratory: no respiratory distress, no accessory muscle use, decreased breath sounds, other (overall poor air movement; scant occ squeaky exp wheeze; seems labored in breathing. 2L O2 PNC = 97%) Cardiovascular: regular rate, rhythm Gastrointestinal: non tender, soft Extremities: other (3+ edema RLE) Neurologic/Psychiatric: alert, normal mood/affect, oriented x 3 Skin: normal color, warm/dry Focused Exam Lactate Level 05/05/23 15:28: Lactic Acid Level Laboratory Tests Test 05/05/23 15:28 Progress/Results/Core Measures Suspected Sepsis SIRS Temperature: Pulse: 91 Respiratory Rate: 20 Laboratory Tests 05/05/23 13:50: White Blood Count 11.1H Blood Pressure 200 /109 Mean: 139 05/05/23 15:28: Laboratory Tests 05/05/23 13:50: Creatinine 1.68H, INR Comment 1.0, Platelet Count 294, Total Bilirubin 0.9 Results/Orders Lab Results Laboratory Tests Test 05/05/23 13:50 05/05/23 15:28 Range/Units White Blood Count 11.1 H 4.3-11.0 10^3/uL Red Blood Count 4.70 4.30-5.52 10^6/uL Hemoglobin 13.6 13.3-17.7 g/dL Hematocrit 43 40-54 % Mean Corpuscular Volume 92 80-99 fL Mean Corpuscular Hemoglobin 29 25-34 pg Mean Corpuscular Hemoglobin Concent 32 32-36 g/dL Red Cell Distribution Width 13.8 10.0-14.5 % Platelet Count 294 130-400 10^3/uL Mean Platelet Volume 9.9 9.0-12.2 fL Immature Granulocyte % (Auto) 0 % Neutrophils (%) (Auto) 80 H 42-75 % Lymphocytes (%) (Auto) 11 L 12-44 % Monocytes (%) (Auto) 8 0-12 % Eosinophils (%) (Auto) 0 0-10 % Basophils (%) (Auto) 0 0-10 % Neutrophils # (Auto) 8.9 H 1.8-7.8 X 10^3 Lymphocytes # (Auto) 1.2 1.0-4.0 X 10^3 Monocytes # (Auto) 0.9 0.0-1.0 X 10^3 Eosinophils # (Auto) 0.0 0.0-0.3 10^3/uL Basophils # (Auto) 0.0 0.0-0.1 10^3/uL Immature Granulocyte # (Auto) 0.0 0.0-0.1 10^3/uL Prothrombin Time 13.0 12.2-14.7 SEC INR Comment 1.0 0.8-1.4 Activated Partial Thromboplast Time 36 H 24-35 SEC D-Dimer 3.56 H 0.00-0.49 UG/ML Sodium Level 138 135-145 MMOL/L Potassium Level 4.8 3.6-5.0 MMOL/L Chloride Level 105 98-107 MMOL/L Carbon Dioxide Level 23 21-32 MMOL/L Anion Gap 10 5-14 MMOL/L Blood Urea Nitrogen 17 7-18 MG/DL Creatinine 1.68 H 0.60-1.30 MG/DL Estimat Glomerular Filtration Rate 40 BUN/Creatinine Ratio 10 Glucose Level 184 H 70-105 MG/DL Calcium Level 8.8 8.5-10.1 MG/DL Corrected Calcium 9.0 8.5-10.1 MG/DL Magnesium Level 1.9 1.6-2.4 MG/DL Total Bilirubin 0.9 0.1-1.0 MG/DL Aspartate Amino Transf (AST/SGOT) 27 5-34 U/L Alanine Aminotransferase (ALT/SGPT) 33 0-55 U/L Alkaline Phosphatase 108 40-136 U/L Myoglobin 331.8 H 10.0-92.0 NG/ML Troponin I < 0.028 <0.028 NG/ML B-Type Natriuretic Peptide 382.4 H <100.0 PG/ML Total Protein 7.9 6.4-8.2 GM/DL Albumin 3.7 3.2-4.5 GM/DL My Orders Orders - ROGERS BRIGGS MD Cbc With Automated Diff (05/05/23 14:17) Magnesium (05/05/23 14:17) Chest 1 View, Ap/Pa Only (05/05/23 14:17) Ekg Tracing (05/05/23 14:17) Comprehensive Metabolic Panel (05/05/23 14:17) Myoglobin Serum (05/05/23 14:17) Protime With Inr (05/05/23 14:17) Partial Thromboplastin Time (05/05/23 14:17) O2 (05/05/23 14:17) Monitor-Rhythm Ecg Trace Only (05/05/23 14:17) Lipid Panel (05/06/23 06:00) Ed Iv/Invasive Line Start (05/05/23 14:17) Troponin I Nathan (05/05/23 14:17) Bnp [place] (05/05/23 14:17) Blood Culture (05/05/23 15:13) Sputum Culture (05/05/23 15:13) Urinalysis (05/05/23 15:13) Urine Culture (05/05/23 15:13) Ed Iv/Invasive Line Start (05/05/23 15:13) Ed Iv/Invasive Line Start (05/05/23 15:13) Vital Signs Adult Sepsis Patie Q15M (05/05/23 15:13) O2 (05/05/23 15:13) Remove Rings In Anticipation O (05/05/23 15:13) Lactic Acid Analyzer (05/05/23 15:13) Arterial Blood Gas (05/05/23 15:19) Us Venous Lower Ext García (05/05/23 15:19) Fibrin Degradation Products (05/05/23 15:19) Ceftriaxone Iv/Im (Rocephin Iv/Im) (05/05/23 15:30) Azithromycin Injection (Zithromax Inject (05/05/23 15:30) Covid 19 Inhouse Test (05/05/23 15:40) Vital Signs/I&O 05/05/23 05/05/23 05/05/23 13:43 13:43 14:20 Temp 36.6 Pulse 91 Resp 20 B/P (MAP) 200/109 (139) Pulse Ox 88 94 O2 Delivery Room Air Nasal Cannula Room Air O2 Flow Rate 2.00 Capillary Refill : Blood Pressure Mean: 139 Departure Communication (Admissions) Time/Spoke to Admitting Phy: 15:[address] Owusu (Hospitalist) admit Obs; pneumonia Impression Primary Impression: Pneumonia Qualified Codes: J18.9 - Pneumonia, unspecified organism Additional Impression: Chronic kidney disease Disposition: ADMITTED INPATIENT Condition: Stable Admissions Decision to Admit Reason: Admit from ER (General) Decision to Admit/Date: May 05, 2023 Time/Decision to Admit Time: 15:22 Departure-Patient Inst. Referrals: GAYLE OWUSU DO (PCP/Family) Primary Care Physician ROGERS BRIGGS MD May 05, 2023 14:09
[2023-05-05 14:28] LABS: ALBUMIN 3.7 GM/DL (3.2-4.5); CHLORIDE 105 MMOL/L (98-107); POTASSIUM 4.8 MMOL/L (3.6-5.0); SODIUM 138 MMOL/L (135-145)
[2023-05-05 14:29] LABS: BASOPHILS % (AUTO) 0 % (0-10); EOSINOPHILS % (AUTO) 0 % (0-10); HEMATOCRIT 43 % (40-54); HEMOGLOBIN 13.6 g/dL (13.3-17.7); LYMPHOCYTES # (AUTO) 1.2 X 10^3 (1.0-4.0); LYMPHOCYTES % (AUTO) 11 % (12-44); MEAN CORPUSCULAR HEMOGLOBIN 29 pg (25-34); MEAN CORPUSCULAR HGB CONC 32 g/dL (32-36); MEAN CORPUSCULAR VOLUME 92 fL (80-99); MEAN PLATELET VOLUME 9.9 fL (9.0-12.2); MONOCYTES # (AUTO) 0.9 X 10^3 (0.0-1.0); MONOCYTES % (AUTO) 8 % (0-12); NEUTROPHILS # (AUTO) 8.9 X 10^3 (1.8-7.8); NEUTROPHILS % (AUTO) 80 % (42-75); PLATELET COUNT 294 10^3/uL (130-400); WHITE BLOOD COUNT 11.1 10^3/uL (4.3-11.0)
[2023-05-05 14:30] LABS: CALCIUM 8.8 MG/DL (8.5-10.1)
[2023-05-05 14:31] LABS: GLUCOSE 184 MG/DL (70-105); TOTAL PROTEIN 7.9 GM/DL (6.4-8.2)
[2023-05-05 14:32] LABS: BILIRUBIN,TOTAL 0.9 MG/DL (0.1-1.0); CARBON DIOXIDE 23 MMOL/L (21-32)
[2023-05-05 14:34] LABS: ALKALINE PHOSPHATASE 108 U/L (40-136); CREATININE SERUM 1.68 MG/DL (0.60-1.30); GFR ESTIMATED 40
--- NOTE | 2023-05-05 14:35 | Diagnostic Imaging Report ---
INDICATION: Shortness of air, chest pain. COMPARISON: 03/18/2023. FINDINGS: There is a right basilar infiltrate or atelectasis with a small right pleural effusion appearing unchanged; however, new infiltrate in the mid to lower third of the left lung has developed, suspect for pneumonia. IMPRESSION: Probable pneumonia on the left. Similar right pleural reaction and subjacent atelectasis. Dictated by: Dictated on workstation # [id number]
[2023-05-05 14:36] LABS: BUN/CREATININE RATIO 10
[2023-05-05 14:37] LABS: ALANINE AMINOTRANSFERASE 33 U/L (0-55)
[2023-05-05 14:38] LABS: MAGNESIUM 1.9 MG/DL (1.6-2.4)
[2023-05-05] MEDS ORDERED: cefTRIAXone IV/IM 1,000 MG in NS (IVPB) 50 ML IV ONE (15:30)
[2023-05-05] MEDS ORDERED: AZITHROMYCIN INJECTION 500 MG in NS (IVPB) 250 ML IV ONE (15:30)
--- NOTE | 2023-05-05 16:03 | History & Physical ---
History of Present Illness HPI/Chief Complaint Chief complaint: Shortness of breath for pneumonia HPI: This is an 82-year-old male clinic patient of mine with history of chronic kidney disease probable hypertension nephropathy and diabetic nephropathy with low vision who presented to the ER with shortness of breath. Patient was found to have pneumonia. Elevated D-dimer patient has Doppler ultrasound which was negative for DVT. Elevated BNP will be managed by Dr. Gloria his regular building illuminating engineer. Initiated community-acquired pneumonia antibiotics and will monitor creatinine closely. Source: patient Exam Limitations: no limitations Date Seen 05/05/23 Time Seen by a Provider: 16:00 Attending Physician Loida Vilchis DO PCP Admitting Physician: Attending Physician: Referring Physician Date of Admission Home Medications & Allergies Home Medications Reviewed patient Home Medication Reconciliation performed by pharmacy medication reconciliations it desktop support technician and/or nursing. Patients Allergies have been reviewed. Allergies Allergies Coded Allergies Sulfa (Sulfonamide Antibiotics) (Unverified Allergy, Unknown, 10/10/19) Past Smhfbnm-Wyluxa-Ermbqn Hx Past Med/Social Hx: Reviewed Nursing Past Med/Soc Hx, Reviewed and Corrections made Patient Social History Marrital Status: single Employed/Student: retired Alcohol Use: Denies Use Smoking Status: Former Smoker Former Smoker, Quit: Jun 22, 1968 Type Used: Cigarettes 2nd Hand Smoke Exposure: No Recent Hopitalizations: No Immunizations Up To Date Tetanus Booster (TDap): Less than 5yrs Date of Pneumonia Vaccine: Oct 10, 2013 Date of Influenza Vaccine: Sep 10, 2020 Seasonal Allergies Seasonal Allergies: No Past Medical History Surgeries: Cardiac Cardiac: Chronic Edema/Swelling, Coronary Artery Disease, Heart Attack, High Cholesterol, Hypertension Neurological: Neuropathy Genitourinary: Prostate Problems, Renal Failure Gastrointestinal: Diverticulosis, Gall Bladder Disease Endocrine: Diabetes, Insulin dep Loss of Vision: Denies Hearing Impairment: Denies History of Blood Disorders: No Family History Cardiovascular disease 19 FATHER Hypertension 19 FATHER No Pertinent Family Hx, CAD Over 55 Years Old, Hypertension PAST SURGICAL HISTORY: -CARDIAC CATH 11/09/19--DIFFUSELY CALCIFIED CORONARY ARTERIES, SMALL VESSEL DISEASE, NO INTERVENTION - Review of Systems Constitutional: see HPI, malaise, weakness EENTM: no symptoms reported Respiratory: cough, dyspnea on exertion, short of breath Cardiovascular: no symptoms reported Gastrointestinal: no symptoms reported Genitourinary: no symptoms reported Musculoskeletal: back pain, joint pain Skin: no symptoms reported Psychiatric/Neurological: Depressed All Other Systems Reviewed Negative Unless Noted: Yes Physical Exam Physical Exam Vital Signs Vital Signs - First Documented 05/05/23 13:43 Temp 36.6 Pulse 91 Resp 20 B/P (MAP) 200/109 (139) Pulse Ox 88 O2 Delivery Room Air O2 Flow Rate 2.00 Capillary Refill : Height, Weight, BMI Height: 5'7.00" Weight: 200lbs. oz. 90.761223or; 44.00 BMI Method:Estimated General Appearance: No Apparent Distress, WD/WN, Chronically ill, Obese Eyes: Bilateral Eye Normal Inspection, Bilateral Eye PERRL, Bilateral Eye EOMI HEENT: PERRL/EOMI, Normal ENT Inspection, Pharynx Normal Neck: Full Range of Motion, Normal Inspection, Non Tender, Supple, Carotid Bruit Respiratory: Chest Non Tender, Lungs Clear, No Accessory Muscle Use, No Respiratory Distress, Decreased Breath Sounds Cardiovascular: Regular Rate, Rhythm, No Edema, No Gallop, No JVD, No Murmur, Normal Peripheral Pulses Gastrointestinal: Normal Bowel Sounds, No Organomegaly, No Pulsatile Mass, Non Tender, Soft Back: Normal Inspection, No CVA Tenderness, No Vertebral Tenderness Extremity: Normal Capillary Refill, Normal Inspection, Normal Range of Motion, Non Tender, No Calf Tenderness, No Pedal Edema Neurologic/Psychiatric: Alert, Oriented x3, No Motor/Sensory Deficits, mammal control agent II- XII Norm as Tested, Abnormal Gait, Depressed Affect Skin: Normal Color, Warm/Dry Lymphatic: No Adenopathy Results Results/Procedures Labs Laboratory Tests 05/05/23 13:50 05/06/23 05:52 Patient resulted labs reviewed. Assessment/Plan Admission Diagnosis Assessment: Shortness of breath Pneumonia Elevated BNP Chronic kidney disease stage III Diabetes Hypertension BPH Plan: Home meds IV antibiotics Dr. Gloria consult Admission Status: Observation LOIDA VILCHIS DO May 05, 2023 16:03
--- NOTE | 2023-05-05 16:13 | Diagnostic Imaging Report ---
PROCEDURE: US Venous Lower Ext García. TECHNIQUE: Multiple real-time grayscale images were obtained over the lower extremities in various projections, bilaterally. Additional duplex Doppler and color Doppler images were also obtained. INDICATION: Lower extremity edema bilaterally, greater right. FINDINGS: The lower extremity venous system bilaterally showed normal color flow, compressibility, and normal waveforms. No deep or superficial venous thrombus. No fluid collection identified. There is subcutaneous edema about the lower legs. IMPRESSION: Negative for venous thrombus. Dictated by: Dictated on workstation # [id number]
[2023-05-05 16:35] LABS: BILIRUBIN,URINE NEGATIVE (NEGATIVE); CLARITY,URINE SL CLOUDY; COLOR,URINE YELLOW; GLUCOSE, URINE (UA) NEGATIVE (NEGATIVE); KETONES,URINE NEGATIVE (NEGATIVE); LEUKOCYTE ESTERASE ,URINE NEGATIVE (NEGATIVE); NITRITE,URINE NEGATIVE (NEGATIVE); PROTEIN,URINE 3+ (NEGATIVE)
[2023-05-05 16:36] LABS: ABG BASE EXCESS 1.9 MMOL/L (-2.5-2.5); ABG OXYGEN SATURATION 97 % (94-100); ABG PCO2 53 MMHG (35-45); ABG PO2 84 MMHG (79-93); ABG TCO2 28.6 MMOL/L (21.0-31.0)
[2023-05-05 16:40] LABS: ALLENS TEST YES-POS; INSPIRED O2 2L; PATIENT TEMP 37.7; VENTILATOR NO
[2023-05-05 16:41] LABS: ABG PH 7.33 (7.37-7.43)
[2023-05-05 16:44] LABS: BACTERIA,URINE NEGATIVE /HPF; RBC,URINE RARE /HPF; WBC,URINE RARE /HPF
[2023-05-05 18:15] VITALS: BP 163/91
[2023-05-05] MEDS ORDERED: ONDANSETRON 4 MG/2 ML (SDV) Z0FRAN IV PRN (18:30)
[2023-05-05] MEDS ORDERED: CALCIUM CARBONATE 500 MG (TUMS) TAB.CHEW PO PRN (18:30)
[2023-05-05] MEDS ORDERED: ONDANSETRON 4 MG (ZOFRAN) ORAL DISSOLVE TAB PO PRN (18:30)
[2023-05-05] MEDS ORDERED: cefTRIAXone IV/IM 1,000 MG in NS (IVPB) 50 ML IV SCH (18:30)
[2023-05-05] MEDS ORDERED: BISACODYL 10 MG SUPP (DULCOLAX) PR PRN (18:30)
[2023-05-05] MEDS ORDERED: diphenhydrAMINE 50 MG/ML INJ (BENADRYL) IVP PRN (18:30)
[2023-05-05] MEDS ORDERED: ALPRAZolam 0.25 MG (XANAX) TAB PO PRN (18:30)
[2023-05-05] MEDS ORDERED: diphenhydrAMINE 25 MG TAB (BENADRYL) PO PRN (18:30)
[2023-05-05] MEDS ORDERED: MILK OF MAGNESIA 400 MG/5 ML 30 ML UDC PO PRN (18:30)
[2023-05-05] MEDS ORDERED: LACTULOSE SYRUP 10GM/15ML (ENULOSE) 30ML UDC PO PRN (18:30)
[2023-05-05] MEDS ORDERED: hydrALAZINE (APESOLINE) 20 MG/ML VIAL IV PRN (18:30)
[2023-05-05] MEDS ORDERED: ANTACID SUSP 30 ML UDC (MYLANTA) PO PRN (18:30)
[2023-05-05] MEDS ORDERED: HYDROmorphone 2 MG/ML VIAL (DILAUDID) IV PRN (18:30)
[2023-05-05] MEDS ORDERED: AZITHROMYCIN INJECTION 500 MG in NS (IVPB) 250 ML IV NR (18:45)
[2023-05-05 19:24] VITALS: BP 163/91
[2023-05-05] MEDS ORDERED: RT-ALBUTEROL SULF 2.5 MG/3 ML PRE-MIX VIAL INH PRN (19:45)
[2023-05-05] MEDS ORDERED: hydrALAZINE (APRESOLINE) 25 MG TAB PO SCH (19:45)
[2023-05-05] MEDS ORDERED: LOSARTAN 50 MG (COZAAR) TAB PO NR (19:45)
[2023-05-05] MEDS: DOCUSATE SODIUM 100 MG (COLACE) CAP PO SCH (20:06)
[2023-05-05] MEDS: SENNOSIDES 8.6 MG (SENOKOT) TAB PO SCH (20:06)
[2023-05-05] MEDS: hydrALAZINE (APRESOLINE) 25 MG TAB PO SCH (20:06)
[2023-05-05 21:00] VITALS: BP 132/68
[2023-05-05 23:55] VITALS: BP 146/70
[2023-05-06] VITALS (8 sets, daily range): BP systolic 96–181; BP diastolic 54–83
[2023-05-06 06:10] LABS: BASOPHILS % (AUTO) 0 % (0-10); EOSINOPHILS % (AUTO) 0 % (0-10); HEMATOCRIT 40 % (40-54); HEMOGLOBIN 12.7 g/dL (13.3-17.7); LYMPHOCYTES # (AUTO) 1.4 10^3/uL (1.0-4.0); LYMPHOCYTES % (AUTO) 12 % (12-44); MEAN CORPUSCULAR HEMOGLOBIN 29 pg (25-34); MEAN CORPUSCULAR HGB CONC 32 g/dL (32-36); MEAN CORPUSCULAR VOLUME 91 fL (80-99); MEAN PLATELET VOLUME 10.1 fL (9.0-12.2); MONOCYTES # (AUTO) 1.4 10^3/uL (0.0-1.0); MONOCYTES % (AUTO) 11 % (0-12); NEUTROPHILS # (AUTO) 9.2 10^3/uL (1.8-7.8); NEUTROPHILS % (AUTO) 76 % (42-75); PLATELET COUNT 253 10^3/uL (130-400); WHITE BLOOD COUNT 12.1 10^3/uL (4.3-11.0)
[2023-05-06 06:39] LABS: ALBUMIN 3.4 GM/DL (3.2-4.5); BILIRUBIN,TOTAL 0.8 MG/DL (0.1-1.0); CALCIUM 8.6 MG/DL (8.5-10.1); CREATININE SERUM 1.69 MG/DL (0.60-1.30); POTASSIUM 4.4 MMOL/L (3.6-5.0); TOTAL PROTEIN 7.3 GM/DL (6.4-8.2)
[2023-05-06] MEDS: ISOSORBIDE MONONITRATE 60 MG (IMDUR) TAB PO SCH (07:38)
[2023-05-06] MEDS: inSUlin ASPART (NovoLOG) 1 UNIT/0.01 ML (CHARGE PER UNIT) SC SCH ×4 (07:43→21:24)
[2023-05-06] MEDS: RT-ALBUTEROL SULF 2.5 MG/3 ML PRE-MIX VIAL INH SCH ×4 (07:52→19:16)
[2023-05-06] MEDS: AZITHROMYCIN 250 MG TAB (ZITHROMAX) PO SCH (08:08)
[2023-05-06] MEDS: PANTOPRAZOLE 40 MG (PROTONIX) TAB PO SCH (08:09)
[2023-05-06] MEDS: hydrALAZINE (APRESOLINE) 25 MG TAB PO SCH ×4 (08:10→20:32)
[2023-05-06] MEDS: DOCUSATE SODIUM 100 MG (COLACE) CAP PO SCH ×2 (08:10→20:54)
[2023-05-06] MEDS: SENNOSIDES 8.6 MG (SENOKOT) TAB PO SCH ×2 (08:10→20:54)
[2023-05-06] MEDS: FINASTERIDE (PROSCAR) 5 MG TAB PO SCH (08:11)
[2023-05-06] MEDS ORDERED: INSU100I88 SC (08:32)
[2023-05-06] MEDS ORDERED: LIDO700A45 SUBDERM (08:32)
[2023-05-06] MEDS ORDERED: TAMSULOSIN PO (08:32)
[2023-05-06] MEDS ORDERED: LOSA50TA63 PO (08:32)
[2023-05-06] MEDS ORDERED: SENN-117 PO (08:32)
[2023-05-06] MEDS ORDERED: TRZ50T PO (08:32)
[2023-05-06] MEDS ORDERED: CARV25TA PO (08:32)
[2023-05-06] MEDS ORDERED: ISOSORBIDE PO (08:32)
[2023-05-06] MEDS ORDERED: INSU100I48 SC (08:32)
[2023-05-06] MEDS ORDERED: FUROSEMIDE 40 MG (LASIX) TAB PO SCH (09:00)
[2023-05-06] MEDS ORDERED: TAMSULOSIN 0.4 MG (FLOMAX) CAP PO SCH ×3 (09:00→18:00)
[2023-05-06] MEDS ORDERED: NON-FORMULARY MEDICATION 1 EA EA (Omeprazole 40 MG) PO SCH (09:00)
[2023-05-06] MEDS ORDERED: LOSARTAN 50 MG (COZAAR) TAB PO SCH (09:00)
[2023-05-06] MEDS ORDERED: NON-FORMULARY MEDICATION 1 EA EA (Insulin Detemir (Levemir Flextouch) 25 UNIT) SQ SCH (09:00)
--- NOTE | 2023-05-06 09:12 | Progress Note ---
Subjective Date Seen by a Provider: May 06, 2023 Time Seen by a Provider: 11:00 Subjective/Events-last exam Patient doing a little better [id number] at the bedside No pain is reported No falls Patient feels like he needs therapy Home health will be arranged at discharge and outpatient therapy if needed Patient getting close to needing skilled care or assisted living Review of Systems General: Fatigue, Malaise Pulmonary: Dyspnea Focused Exam Lactate Level 05/05/23 16:25: Lactic Acid Level 0.77 Objective Exam Last Set of Vital Signs Vital Signs Date Time Temp Pulse Resp B/P (MAP) Pulse Ox O2 Delivery O2 Flow Rate FiO2 05/06/23 08:27 37.0 92 20 159/83 (108) 93 Room Air 05/06/23 08:21 2.00 Capillary Refill : I&O Intake and Output 05/06/23 00:00 Intake Total 100 ml Balance 100 ml Intake Oral 100 ml # Voids 2 Daily Weight Change No General: Alert, Oriented X3, Cooperative, No Acute Distress Lungs: Clear to Auscultation, Normal Air Movement, Other (Diminished in bases) Heart: Regular Rate Psych/Mental Status: Mental Status NL Results Lab Laboratory Tests 05/05/23 13:50: White Blood Count 11.1H, Red Blood Count 4.70, Hemoglobin 13.6, Hematocrit 43, Mean Corpuscular Volume 92, Mean Corpuscular Hemoglobin 29, Mean Corpuscular Hemoglobin Concent 32, Red Cell Distribution Width 13.8, Platelet Count 294, Mean Platelet Volume 9.9, Immature Granulocyte % (Auto) 0, Neutrophils (%) (Auto) 80H, Lymphocytes (%) (Auto) 11L, Monocytes (%) (Auto) 8, Eosinophils (%) (Auto) 0, Basophils (%) (Auto) 0, Neutrophils # (Auto) 8.9H, Lymphocytes # (Auto) 1.2, Monocytes # (Auto) 0.9, Eosinophils # (Auto) 0.0, Basophils # (Auto) 0.0, Immature Granulocyte # (Auto) 0.0, Prothrombin Time 13.0, INR Comment 1.0, Activated Partial Thromboplast Time 36H, D-Dimer 3.56H, Sodium Level 138, Potassium Level 4.8, Chloride Level 105, Carbon Dioxide Level 23, Anion Gap 10, Blood Urea Nitrogen 17, Creatinine 1.68H, Estimat Glomerular Filtration Rate 40, BUN/Creatinine Ratio 10, Glucose Level 184H, Calcium Level 8.8, Corrected Calcium 9.0, Magnesium Level 1.9, Total Bilirubin 0.9, Aspartate Amino Transf (AST/SGOT) 27, Alanine Aminotransferase (ALT/SGPT) 33, Alkaline Phosphatase 108, Myoglobin 331.8H, Troponin I < 0.028, B-Type Natriuretic Peptide 382.4H, Total Protein 7.9, Albumin 3.7, SARS-CoV-2 RNA (RT-PCR) Not Detected 05/05/23 16:00: Urine Color YELLOW, Urine Clarity SL CLOUDY, Urine pH 7.0, Urine Specific [place] 1.015L, Urine Protein 3+H, Urine Glucose (UA) NEGATIVE, Urine Ketones NEGATIVE, Urine Nitrite NEGATIVE, Urine Bilirubin NEGATIVE, Urine Urobilinogen 0.2, Urine Leukocyte Esterase NEGATIVE, Urine RBC (Auto) NEGATIVE, Urine RBC RARE, Urine WBC RARE, Urine Crystals NONE, Urine Bacteria NEGATIVE, Urine Casts NONE, Urine Mucus NEGATIVE, Urine Culture Indicated NO 05/05/23 16:17: Blood Gas Puncture Site RR, Blood Gas Patient Temperature 37.7, Arterial Blood pH 7.33*L, Arterial Blood Partial Pressure CO2 53H, Arterial Blood Partial Pressure O2 84, Arterial Blood HCO3 27, Arterial Blood Total CO2 28.6, Arterial Blood Oxygen Saturation 97, Arterial Blood Base Excess 1.9, [place] Test YES-POS, Blood Gas Ventilator Setting NO, Blood Gas Inspired Oxygen 2L 05/05/23 16:25: Lactic Acid Level 0.77 05/06/23 05:52: White Blood Count 12.1H, Red Blood Count 4.39, Hemoglobin 12.7L, Hematocrit 40, Mean Corpuscular Volume 91, Mean Corpuscular Hemoglobin 29, Mean Corpuscular Hemoglobin Concent 32, Red Cell Distribution Width 13.6, Platelet Count 253, Mean Platelet Volume 10.1, Immature Granulocyte % (Auto) 0, Neutrophils (%) (Auto) 76H, Lymphocytes (%) (Auto) 12, Monocytes (%) (Auto) 11, Eosinophils (%) (Auto) 0, Basophils (%) (Auto) 0, Neutrophils # (Auto) 9.2H, Lymphocytes # (Auto) 1.4, Monocytes # (Auto) 1.4H, Eosinophils # (Auto) 0.0, Basophils # (Auto) 0.0, Immature Granulocyte # (Auto) 0.1, Sodium Level 136, Potassium Level 4.4, Chloride Level 104, Carbon Dioxide Level 22, Anion Gap 10, Blood Urea Nitrogen 21H, Creatinine 1.69H, Estimat Glomerular Filtration Rate 40, BUN/Creatinine Ratio 12, Glucose Level 163H, Calcium Level 8.6, Corrected Calc ium 9.1, Total Bilirubin 0.8, Aspartate Amino Transf (AST/SGOT) 30, Alanine Aminotransferase (ALT/SGPT) 28, Alkaline Phosphatase 87, Total Protein 7.3, Albumin 3.4, Triglycerides Level 60, Cholesterol Level 121, LDL Cholesterol Direct 78, VLDL Cholesterol 12, HDL Cholesterol 36L 05/06/23 09:03: Glucometer 205H Assessment/Plan Assessment/Plan Assess & Plan/Chief Complaint Assessment: Shortness of breath Pneumonia Elevated BNP Chronic kidney disease stage III Diabetes Hypertension BPH Plan: Home meds IV antibiotics Dr. Gloria consult GAYLE OWUSU DO May 06, 2023 09:12
[2023-05-06] MEDS: FLUTICASONE NASAL SPRAY (FLONASE) 16 GM BTL NS SCH (10:27)
--- NOTE | 2023-05-06 10:39 | Physical Therapy Evaluation ---
PT Evaluation-General Medical Diagnosis Admission Date May 05, 2023 at 17:58 Medical Diagnosis: pneumonuia Onset Date: May 05, 2023 Therapy Diagnosis Therapy Diagnosis: general weakness/ debility Height/Weight Height (Feet): 5 Height (Inches): 7.00 Weight (Pounds): 200 Precautions Precautions/Isolations: Standard Precautions Weight Bear Status Right Lower Extremity: Right Weight Bearing/Tolerated Left Lower Extremity: Left Weight Bearing/Tolerated Referral Physician: Dr. Vilchis Reason for Referral: Evaluation/Treatment Medical History Pertinent Medical History: CAD, DM, HTN Current History ED secondary to increasing SOB Reviewed History: Yes Social History Home: Single Level Current Living Status: Alone Entry Into Home: Ramp Prior Prior Level of Function SCALE: Activities may be completed with or without assistive devices. 7-Goazxrqork-jclfnai completes the activity by him/herself with no assistance from a helper. 5-Set-up or Clean-up Assistance-helper sets up or cleans up; patient completes activity. [place] assists only prior to or following the activity. 4-Supervision or Touching Assistance-helper provides verbal cues and/or touching/steadying and/or contact guard assistance as patient completes activity. Assistance may be provided throughout the activity or intermittently. 3-Partial/Moderate Assistance-helper does LESS THAN HALF the effort. [place] lifts, holds or supports trunk or limbs, but provides less than half the effort. 2-Substantial/Maximal Assistance-helper does MORE THAN HALF the effort. [place] lifts or holds trunk or limbs and provides more than half the effort. 3-Yrinheeno-aytvyh does ALL the effort. Patient does none of the effort to complete the activity. Or, the assistance of 2 or more helpers is required for the patient to complete the activity. If activity was not attempted, code reason: 7-Patient Refused. 9-Not Applicable-not attempted and the patient did not perform the activity before the current illness, exacerbation or injury. 10-Not Attempted due to Environmental Limitations-(lack of equipment, weather restraints, etc.). 88-Not Attempted due to Medical Conditions or Safety Concerns. Bed Mobility: 6 Transfers (B,C,W/C): 6 Gait: 66 Stairs: 6 Prior Device Use: has a SPC he uses occasionally PT Evaluation-Current Subjective Pt in R sidelying upon arrival to room, agreeable to PT treatment at this time. Denies pain Pt/Family Goals return home Objective Patient Orientation: Person, Place, Situation Attachments: Oxygen ROM/Strength ROM Lower Extremities grossly WFL Strength Lower Extremities grossly 3/5 with functional mobility Integumentary/Posture Integumentary refer to nursing Posture increased kyphotic posture Neuromuscular (Tone, Coordination, Reflexes) intact Sensory Vision: mac degene Sensation Right Lower Extremit: Intact Sensation Left Lower Extremity: Intact Transfers Roll Left to Right (QC): 4 Sit to Lying (QC): 4 Lying to Sitting/Side of Bed(Q: 4 Sit to Stand (QC): 2 max A to achieve standing at EOB this date, when in standing pt immediately reports he feels sick and needs to return to bed. Pt back to bed with SBA for all bed mobility Assessment/Needs Pt limited by nausea this date, does show decreased functional mobility secondary to increasing SOB. Pt would benefit from skilled PT while in hospital to increase strength, mobility and ensure safety upon DC from hospital Rehab Potential: Fair PT Penitentiary Goals Penitentiary Goals PT De Icer Kit Assembler Goals Time Frame: May 20, 2023 Roll Left & Right (QC): 6 Sit to Lying (QC): 6 Lying-Sitting on Side/Bed(QC): 6 Sit to Stand (QC): 6 Chair/Jby-ik-Urscm Xfer(QC): 6 Toilet Transfer (QC): 6 Car Transfer (QC): 6 Walk 150 ft (QC): 6 PT Plan Problem List Problem List: Activity Tolerance, Functional Strength, Safety, Balance, Gait, Transfer, Bed Mobility, ROM Treatment/Plan Treatment Plan: Continue Plan of Care Treatment Plan: Bed Mobility, Education, Functional Activity Shannon, Functional Strength, Gait, Safety, Therapeutic Exercise, Transfers Treatment Duration: May 20, 2023 Frequency: 6 times per week Estimated Hrs Per Day: .25 hour per day Patient and/or Family Agrees t: Yes Time Time In: 950 Time Out: 1003 DATE: May 06, 2023 Total Billed Treatment Time: 13 Total Billed Treatment 1 visit, COREY (13') LUCRECIA ACOSTA PT May 06, 2023 10:39
[2023-05-06] MEDS ORDERED: SALIVA STIMULANT GEL 1.5 OZ (BIOTENE) TUBE PO PRN (11:30)
[2023-05-06] MEDS: cefTRIAXone IV/IM 1,000 MG in NS (IVPB) 50 ML IV SCH (15:30)
--- NOTE | 2023-05-06 16:49 | Consultation-Cardiology ---
HPI-Cardiology Cardiology Consultation: Date of Consultation 05/06/23 Time Seen by a Provider: 11:30 Date of Admission Attending Physician Loida Vilchis DO Admitting Physician Admitting Physician: Loida Vilchis DO Attending Physician: Loida Vilchis DO Consulting Physician RACHEL LOUIS MD, MA, FACP, FACC, FSCAI, CCDS Physician requesting consult: Dr Vilchis HPI: Chief Complaint: Shortness of breath 82 yo man admitted to Dr Vilchis on 05/05/23 with increasing shortness of breath, malaise, productive cough, and diagnosed with pneumonia. Denies cp or palp or syncope. Denies leg swelling. Denies n/v/d Review of Systems-Cardiology Review of Systems Constitutional: As described under HPI Eyes: No vision change Ears/Nose/Throat: No ear discharge, No nasal drainage, No recent hearing loss Respiratory: As described under HPI Cardiovascular: As described under HPI Gastrointestinal: As described under HPI Genitourinary: No dysuria, No hematuria Musculoskeletal: back pain (chronic); No joint pain Skin: No rash, No ulcerations Psychiatric/Neurological: No seizure, No focal weakness, No syncope Hematologic: No bleeding abnormalities All Other Systems Reviewed Negative Unless Noted: Yes NAX-Egigdi-Ixbbpq Hx Patient Social History Marrital Status: single Employed/Student: retired Smoking Status: Former Smoker 2nd Hand Smoke Exposure: No Alcohol Use?: No Pt feels they are or have been: No Immunizations Up To Date Tetanus Booster (TDap): Less than 5yrs Date of Pneumonia Vaccine: Oct 10, 2013 Date of Influenza Vaccine: Sep 10, 2020 Past Medical History PMH As described under Assessment. Family Medical History Family History: Cardiovascular disease 19 FATHER Hypertension 19 FATHER Allergies and Home Medications Allergies Coded Allergies: Sulfa (Sulfonamide Antibiotics) (Unverified Allergy, Unknown, 10/10/19) Patient Home Medication List Home Medication List Reviewed: Yes Carvedilol (Carvedilol) 25 Mg Tablet, 25 MG PO DAILY, (Reported) Entered as Reported by: NESTOR STINSON on 05/06/23 0832 Last Action: Reviewed Finasteride (Finasteride) 5 Mg Tablet, 5 MG PO DAILY Prescribed by: MARIO SULLIVAN on 12/19/20 1239 Last Action: Reviewed Fluticasone Propionate (Fluticasone Propionate) 16 Gm Hanson.susp, 1 SPRAY NSEACH DAILY, (Reported) Entered as Reported by: JOSE LUIS HUNTER on 12/11/20 152 Last Action: Reviewed Furosemide (Furosemide) 40 Mg Tablet, 40 MG PO DAILY, (Reported) Entered as Reported by: ALECIA HERRERA on 10/17/18 1427 Last Action: Reviewed Insulin Detemir (Levemir Flextouch) 100 Unit/1 Ml Insuln.pen, 25 UNIT SQ BID, (Reported) Entered as Reported by: VALENTINA العلي on 10/11/19 1034 Last Action: Reviewed Insulin Lispro (Insulin Lispro Kwikpen U-100) 100 Unit/Ml Insuln.pen, 15 UNITS SC AC, (Reported) Entered as Reported by: NESTOR STINSON on 05/06/23831 Last Action: Reviewed Isosorbide Mononitrate (Isosorbide Mononitrate ER) 120 Mg Tab.er.24h, 120 MG PO DAILY, (Reported) Entered as Reported by: RASHIDA CLAROS on 10/10/19 1238 Last Action: Reviewed Lidocaine (Lidocaine 5% Patch) 5 % Adh..patch, 1 PATCH SUBDERM DAILY, (Reported) Entered as Reported by: NESTOR STINSON on 05/06/23831 Last Action: Reviewed Losartan Potassium (Losartan Potassium) 50 Mg Tablet, 50 MG PO BID, (Reported) Entered as Reported by: NESTOR STINSON on 05/06/23831 Last Action: Reviewed Omeprazole (Omeprazole) 40 Mg Capsule.dr, 40 MG PO DAILY, (Reported) Entered as Reported by: JOSE LUIS HUNTER on 12/11/201528 Last Action: Reviewed Sennosides/Docusate Sodium (Stimulant Laxative Plus Tablet) 8.6 Mg-50 Mg Tablet, 8.6 MG PO BID, (Reported) Entered as Reported by: NESTOR STINSON on 05/06/23831 Last Action: Reviewed Trazodone HCl (Trazodone HCl) 50 Mg Tablet, 50 MG PO HS, (Reported) Entered as Reported by: NESTOR STINSON on 05/06/23831 Last Action: Reviewed [Isosorbide] 60 CAP, 60 MG PO DAILY, (Reported) Entered as Reported by: NESTOR STINSON on 7/4/23 0832 Last Action: Reviewed [Tamsulosin] 0.4 EA, 0.4 MG PO DAILY, (Reported) Entered as Reported by: NESTOR STINSON on 05/06/23 0832 Last Action: Reviewed Discontinued Medications Amoxicillin/Potassium Clav (Augmentin 500-125 Tablet) 500 Mg-125 Mg Tablet, 1 EACH PO BID Discontinued Reason: No Longer Taking Prescribed by: CORTEZ CASTAÑEDA on 06/28/222112 Last Action: Discontinued Carvedilol (Carvedilol) 12.5 Mg Tablet, 25 MG PO BID Discontinued Reason: Provider Change Prescribed by: MARIO SULLIVAN on 12/19/20 1239 Last Action: Discontinued Clonidine HCl (Clonidine HCl) 0.3 Mg Tablet, 0.3 MG PO BID Discontinued Reason: No Longer Taking Prescribed by: MARIO SULLIVAN on 12/20/20 1451 Last Action: Discontinued Hydralazine HCl (Hydralazine HCl) 25 Mg Tablet, 25 MG PO TID Discontinued Reason: No Longer Taking Prescribed by: ARAMIS ROD on 07/31/21 193 Last Action: Discontinued Insulin Detemir (Levemir Flexpen) 100 Unit/Ml (3 Ml) Insuln.pen, 25 UNITS SC BID, (Reported) Discontinued Reason: No Longer Taking Entered as Reported by: NESTOR STINSON on 05/06/2332 Last Action: Discontinued Tamsulosin HCl (Flomax) 0.4 Mg Cap, 0.4 MG PO DAILY, (Reported) Discontinued Reason: Provider Change Entered as Reported by: RASHIDA CLAROS on 10/10/19 1238 Last Action: Discontinued Physical Exam-Cardiology Physical Exam Vital Signs/I&O 05/06/23 05/06/23 05/06/23 05/06/23 05:10 06:59 07:52 07:59 Pulse 99 B/P (MAP) 161/71 (101) Pulse Ox 95 O2 Delivery Nasal Cannula Nasal Cannula O2 Flow Rate 2.00 1.00 05/06/23 05/06/23 05/06/23 05/06/23 08:21 08:27 09:08 11:36 Temp 37.0 Pulse 92 130 Resp 20 B/P (MAP) 159/83 (108) Pulse Ox 93 88 O2 Delivery Nasal Cannula Room Air Nasal Cannula O2 Flow Rate 2.00 1.00 7/4/05/06/23 05/06/23 05/06/23 11:39 11:54 13:00 13:13 Temp 36.8 Pulse 93 81 Resp 20 B/P (MAP) 96/55 (69) 98/60 (73) Pulse Ox 92 91 O2 Delivery Nasal Cannula Nasal Cannula O2 Flow Rate 2.00 2.00 05/06/23 05/06/23 15:14 16:11 Temp 36.6 Pulse 90 Resp 18 B/P (MAP) 108/62 (77) Pulse Ox 93 93 O2 Delivery Nasal Cannula Nasal Cannula O2 Flow Rate 2.00 2.00 05/06/23 00:00 Intake Total 100 ml Balance 100 ml Capillary Refill : Constitutional: AAO x 3, well-developed, well-nourished, other (obese) HEENT: PERRL; No xanthelasmas are seen Neck: carotid pulses are 2 + bilaterally Respiratory: No accessory muscle use; chest expansion is symmetric, chest is bilaterally symmetric, other (fair to good, bilateral air entry, diminished at the bases) Cardiovascular: regular rate-rhythm, S1 and S2, systolic murmur (soft WANDA at card base) Gastrointestinal: No tender; soft; No guarding, No rebound; audible bowel sounds Extremities: No clubbing, No cyanosis, No significant edema Neurologic/Psychiatric: oriented x 3, other (moves all limbs equally) Skin: normal color, warm/dry; No cyanosis, No cool, No diaphoresis, No rash, No ulcerations Data Review Labs Laboratory Tests 05/06/23 05:52: White Blood Count 12.1H, Red Blood Count 4.39, Hemoglobin 12.7L, Hematocrit 40, Mean Corpuscular Volume 91, Mean Corpuscular Hemoglobin 29, Mean Corpuscular Hemoglobin Concent 32, Red Cell Distribution Width 13.6, Platelet Count 253, Mean Platelet Volume 10.1, Immature Granulocyte % (Auto) 0, Neutrophils (%) (Auto) 76H, Lymphocytes (%) (Auto) 12, Monocytes (%) (Auto) 11, Eosinophils (%) (Auto) 0, Basophils (%) (Auto) 0, Neutrophils # (Auto) 9.2H, Lymphocytes # (Auto) 1.4, Monocytes # (Auto) 1.4H, Eosinophils # (Auto) 0.0, Basophils # (Au to) 0.0, Immature Granulocyte # (Auto) 0.1, Sodium Level 136, Potassium Level 4.4, Chloride Level 104, Carbon Dioxide Level 22, Anion Gap 10, Blood Urea Nitrogen 21H, Creatinine 1.69H, Estimat Glomerular Filtration Rate 40, BUN/Creatinine Ratio 12, Glucose Level 163H, Calcium Level 8.6, Corrected Calcium 9.1, Total Bilirubin 0.8, Aspartate Amino Transf (AST/SGOT) 30, Alanine Aminotransferase (ALT/SGPT) 28, Alkaline Phosphatase 87, Total Protein 7.3, Albumin 3.4, Triglycerides Level 60, Cholesterol Level 121, LDL Cholesterol Direct 78, VLDL Cholesterol 12, HDL Cholesterol 36L 05/06/23 09:03: Glucometer 205H 05/06/23 10:15: Glucometer 243H 05/06/23 15:14: Glucometer 143H Microbiology 05/05/23 Blood Culture - Preliminary, Resulted No growth Laboratory Tests 05/05/23 13:50 05/06/23 05:52 A/P-Cardiology Assessment/Admission Diagnosis Pneumonia Obesity with obesity-hypoventilation PAF with RVR (seen on tele during this hosp) CAD - Cardiac cath of 11-10-[address] Kaur showed calcified coronary system with mild diffuse ectasia and slow flow diffusely d/t small vessel dz. Normal LVEDP CKD 3b Mildly elevated BNP (probably due to CKD) w/o clinical evidence of CHF - echo on 05-06-23: LVEF 55-60%, grade 2 diastolic dysfunction, mildly dilated LA, mild MR, mod AI Discussion and Recomendations * Long-acting dilt for vent rate control * Apixaban (dose adjusted to age and Cr) for stroke prophylaxis * Echo - done (see above) * Pneumonia management by Dr Vilchis * Monitor labs RACHEL LOUIS MD FACP [facility] CCDS May 06, 2023 16:49
[2023-05-06] MEDS: APIXABAN 2.5 MG (ELIQUIS) TABLET PO SCH (21:18)
[2023-05-07 03:21] VITALS: BP 123/70
[2023-05-07 05:42] LABS: BASOPHILS % (AUTO) 0 % (0-10); EOSINOPHILS # (AUTO) 0.2 10^3/uL (0.0-0.3); EOSINOPHILS % (AUTO) 2 % (0-10); HEMATOCRIT 37 % (40-54); HEMOGLOBIN 11.5 g/dL (13.3-17.7); LYMPHOCYTES % (AUTO) 27 % (12-44); MEAN CORPUSCULAR HEMOGLOBIN 29 pg (25-34); MEAN CORPUSCULAR HGB CONC 31 g/dL (32-36); MEAN CORPUSCULAR VOLUME 93 fL (80-99); MEAN PLATELET VOLUME 10.2 fL (9.0-12.2); MONOCYTES # (AUTO) 1.1 10^3/uL (0.0-1.0); MONOCYTES % (AUTO) 14 % (0-12); NEUTROPHILS # (AUTO) 4.2 10^3/uL (1.8-7.8); NEUTROPHILS % (AUTO) 56 % (42-75); PLATELET COUNT 208 10^3/uL (130-400); WHITE BLOOD COUNT 7.5 10^3/uL (4.3-11.0)
[2023-05-07 05:44] LABS: POTASSIUM 4.4 MMOL/L (3.6-5.0)
[2023-05-07 05:46] LABS: CALCIUM 8.2 MG/DL (8.5-10.1)
[2023-05-07 05:47] LABS: TOTAL PROTEIN 6.5 GM/DL (6.4-8.2)
[2023-05-07 05:48] LABS: BILIRUBIN,TOTAL 0.5 MG/DL (0.1-1.0)
[2023-05-07 05:50] LABS: CREATININE SERUM 2.41 MG/DL (0.60-1.30)
[2023-05-07] MEDS: ISOSORBIDE MONONITRATE 60 MG (IMDUR) TAB PO SCH ×2 (05:54→08:54)
--- NOTE | 2023-05-07 05:55 | Progress Note ---
Subjective Date Seen by a Provider: May 07, 2023 Time Seen by a Provider: 11:00 Subjective/Events-last exam Patient doing better Long discussion about atrial fibrillation and anticoagulation and heart disease He reports he had gone to Dr. Maddox but left her when she recommended assisted living placement No urinary output so required Finch catheter placement at 4 PM removing 600 cc of urine Patient getting more complicated Review of Systems General: Fatigue, Malaise Neurological: Weakness Focused Exam Lactate Level 05/05/23 16:25: Lactic Acid Level 0.77 Objective Exam Last Set of Vital Signs Vital Signs Date Time Temp Pulse Resp B/P (MAP) Pulse Ox O2 Delivery O2 Flow Rate FiO2 05/07/23 03:21 36.4 71 16 123/70 (87) 94 Nasal Cannula 2.00 2.00 Capillary Refill : I&O Intake and Output 05/06/23 23:59 Intake Total 1885 ml Balance 1885 ml Intake Oral 1885 ml # Voids 5 # Bowel Movements 1 General: Alert, Oriented X3, Cooperative, No Acute Distress Lungs: Clear to Auscultation, Normal Air Movement Heart: Regular Rate, Normal S1, Normal S2, No Murmurs Psych/Mental Status: Mental Status NL, Mood NL Results Lab Laboratory Tests 05/06/23 09:03: Glucometer 205H 05/06/23 10:15: Glucometer 243H 05/06/23 15:14: Glucometer 143H 05/06/23 21:19: Glucometer 221H 05/07/23 01:08: Glucometer 133H 05/07/23 05:17: White Blood Count 7.5, Red Blood Count 3.93L, Hemoglobin 11.5L, Hematocrit 37L, Mean Corpuscular Volume 93, Mean Corpuscular Hemoglobin 29, Mean Corpuscular Hemoglobin Concent 31L, Red Cell Distribution Width 13.9, Platelet Count 208, M duglas Platelet Volume 10.2, Immature Granulocyte % (Auto) 0, Neutrophils (%) (Auto) 56, Lymphocytes (%) (Auto) 27, Monocytes (%) (Auto) 14H, Eosinophils (%) (Auto) 2, Basophils (%) (Auto) 0, Neutrophils # (Auto) 4.2, Lymphocytes # (Auto) 2.0, Monocytes # (Auto) 1.1H, Eosinophils # (Auto) 0.2, Basophils # (Auto) 0.0, Immature Granulocyte # (Auto) 0.0, Sodium Level 139, Potassium Level 4.4, Chloride Level 106, Carbon Dioxide Level 24, Anion Gap 9, Blood Urea Nitrogen 32H, Creatinine 2.41H, Estimat Glomerular Filtration Rate 26, BUN/Creatinine Ratio 13, Glucose Level 79, Calcium Level 8.2L, Corrected Calcium 9.0, Total Bilirubin 0.5, Aspartate Amino Transf (AST/SGOT) 31, Alanine Aminotransferase (ALT/SGPT) 20, Alkaline Phosphatase 68, Total Protein 6.5, Albumin 3.0L Microbiology 05/05/23 Blood Culture - Preliminary, Resulted No growth Assessment/Plan Assessment/Plan Assess & Plan/Chief Complaint Assessment: Shortness of breath Pneumonia Elevated BNP Chronic kidney disease stage III Diabetes Hypertension BPH New onset paroxysmal atrial fibrillation found on telemetry strips Urinary retention requiring Finch catheter placement Plan: Home meds IV antibiotics Dr. Gloria consult Oral anticoagulation Gentle IV fluid Hold losartan and Lasix Finch catheter GAYLE OWUSU DO May 07, 2023 05:55
[2023-05-07] MEDS: inSUlin ASPART (NovoLOG) 1 UNIT/0.01 ML (CHARGE PER UNIT) SC SCH ×4 (05:58→21:10)
[2023-05-07] MEDS: NS IV 1000 ML 1,000 ML IV SCH ×2 (06:14→22:48)
[2023-05-07] MEDS: RT-ALBUTEROL SULF 2.5 MG/3 ML PRE-MIX VIAL INH SCH ×4 (07:01→18:52)
[2023-05-07 08:14] VITALS: BP 123/69
[2023-05-07] MEDS: hydrALAZINE (APRESOLINE) 25 MG TAB PO SCH ×4 (08:37→23:54)
[2023-05-07] MEDS: AZITHROMYCIN 250 MG TAB (ZITHROMAX) PO SCH (08:39)
[2023-05-07] MEDS: DOCUSATE SODIUM 100 MG (COLACE) CAP PO SCH ×2 (08:39→21:11)
[2023-05-07] MEDS: FINASTERIDE (PROSCAR) 5 MG TAB PO SCH (08:39)
[2023-05-07] MEDS: SENNOSIDES 8.6 MG (SENOKOT) TAB PO SCH ×2 (08:40→21:11)
[2023-05-07] MEDS: APIXABAN 2.5 MG (ELIQUIS) TABLET PO SCH ×2 (08:40→21:10)
[2023-05-07] MEDS: PANTOPRAZOLE 40 MG (PROTONIX) TAB PO SCH (08:40)
[2023-05-07] MEDS: FLUTICASONE NASAL SPRAY (FLONASE) 16 GM BTL NS SCH (09:15)
--- NOTE | 2023-05-07 09:58 | Progress Note - Cardiology ---
Cardiology SOAP Progress Note Objective: I&O/Vital Signs 05/07/23 05/08/23 05/08/23 05/08/23 23:24 01:00 03:02 07:00 Temp 36.1 36.5 Pulse 66 70 76 73 Resp 18 18 B/P (MAP) 115/55 (75) 134/67 (89) Pulse Ox 96 95 O2 Delivery Nasal Cannula Nasal Cannula O2 Flow Rate 2.00 2.00 05/08/23 05/08/23 05/08/23 07:27 07:48 08:29 Temp 36.3 Pulse 68 Resp 18 B/P (MAP) 109/65 (80) Pulse Ox 94 93 95 O2 Delivery Nasal Cannula Nasal Cannula Nasal Cannula O2 Flow Rate 2.00 2.00 2.00 05/08/23 00:00 Intake Total 3530 ml Output Total 800 ml Balance 2730 ml Weight (Pounds): 200 Weight (Calculated Kilograms): [id number] Constitutional: AAO x 3, well-developed, well-nourished, other (obese) Respiratory: No accessory muscle use; chest expansion is symmetric, chest is bilaterally symmetric, other (fair to good, bilateral air entry, diminished at the bases) Cardiovascular: regular rate-rhythm, S1 and S2, systolic murmur (soft WANDA at card base) Gastrointestional: No tender; soft; No guarding, No rebound; audible bowel sounds Extremities: No clubbing, No cyanosis, No significant edema Neurologic/Psychiatric: oriented x 3, other (moves all limbs equally) Skin: normal color, warm/dry; No cyanosis, No cool, No diaphoresis, No rash, No ulcerations Results/Procedures: Labs Laboratory Tests 05/07/23 10:25: Glucometer 171H 05/07/23 14:43: Glucometer 196H 05/07/23 20:21: Glucometer 186H 05/07/23 23:31: Glucometer 156H 05/08/23 02:58: Glucometer 133H 05/08/23 05:11: White Blood Count 9.2, Red Blood Count 3.90L, Hemoglobin 11.4L, Hematocrit 36L, Mean Corpuscular Volume 93, Mean Corpuscular Hemoglobin 29, Mean Corpuscular Hemoglobin Concent 32, Red Cell Distribution Width 13.8, Platelet Count 234, Mean Platelet Volume 10.1, Immature Granulocyte % (Auto) 0, Neutrophils (%) (Auto) 62, Lymphocytes (%) (Auto) 22, Monocytes (%) (Auto) 12, Eosinophils (%) (Auto) 3, Basophils (%) (Auto) 0, Neutrophils # (Auto) 5.7, Lymphocytes # (Auto) 2.0, Monocytes # (Auto) 1.1H, Eosinophils # (Auto) 0.3, Basophils # (Auto) 0.0, Immature Granulocyte # (Auto) 0.0, Sodium Level 136, Potassium Level 4.2, Chloride Level 106, Carbon Dioxide Level 22, Anion Gap 8, Blood Urea Nitrogen 44H, Creatinine 2.39H, Estimat Glomerular Filtration Rate 26, BUN/Creatinine Ratio 18, Glucose Level 121H, Calcium Level 8.0L, Corrected Calcium 8.7, Total Bilirubin 0.3, Aspartate Amino Transf (AST/SGOT) 27, Alanine Aminotransferase (ALT/SGPT) 18, Alkaline Phosphatase 80, Total Protein 6.6, Albumin 3.1L Microbiology 05/05/23 Blood Culture - Preliminary, Resulted No growth 05/05/23 Urine Culture - Final, Complete NO GROWTH A/P: Assessment: Pneumonia Obesity with obesity-hypoventilation PAF with RVR (seen on tele during this hosp) CAD - Cardiac cath of 11-10-[address] Kaur showed calcified coronary system with mild diffuse ectasia and slow flow diffusely d/t small vessel dz. Normal LVEDP CKD 3b - acute on chronic Mildly elevated BNP (probably due to CKD) w/o clinical evidence of CHF - echo on 05-06-23: LVEF 55-60%, grade 2 diastolic dysfunction, mildly dilated LA, mild MR, mod AI Plan: * Long-acting dilt for vent rate control * Apixaban (dose adjusted to age and Cr) for stroke prophylaxis * Acute on chronic renal insufficiency - hold Lasix - gentle IVF hydration * Pneumonia management by Dr Vilchis * Monitor labs RONI PATTON May 07, 2023 09:58
[2023-05-07 11:25] VITALS: BP 141/74
[2023-05-07] MEDS ORDERED: FINA5TAB6 PO (11:28)
[2023-05-07] MEDS ORDERED: INSU100I88 SQ (11:28)
[2023-05-07] MEDS ORDERED: HYDR-3924 PO (11:28)
[2023-05-07] MEDS ORDERED: ISOS60TA63 PO (11:28)
[2023-05-07] MEDS ORDERED: CETI10TA17 PO (11:28)
[2023-05-07] MEDS ORDERED: VIT1CAPS44 PO (11:28)
[2023-05-07] MEDS ORDERED: TMSL.4C PO (11:28)
[2023-05-07] MEDS ORDERED: ASPI-1238 PO (11:28)
[2023-05-07] MEDS ORDERED: LIDOCAINE UROJET 2% GEL 10 ML PKG TOP ONE (11:30)
--- NOTE | 2023-05-07 11:52 | Physical Therapy Daily Note ---
PT Daily Note-Current Subjective Pt found laying in bed upon entry. Agreed to PT. Reports he is having pain in his R hip due to sleeping on that side. Pain Section J - Health Conditions 1. Rarely or not at all 2. Occasionally 3. Frequently 4. Almost constantly 8. Unable to answer Pain Effect on Sleep: 1 Pain Interference with Therapy: 1 Pain Interference w/Day-to-Day: 1 Mental Status Patient Orientation: Person, Place Attachments: Oxygen Transfers SCALE: Activities may be completed with or without assistive devices. 2-Rjlxsguhyu-nlfvapy completes the activity by him/herself with no assistance from a helper. 5-Set-up or Clean-up Assistance-helper sets up or cleans up; patient completes activity. [place] assists only prior to or following the activity. 4-Supervision or Touching Assistance-helper provides verbal cues and/or touching/steadying and/or contact guard assistance as patient completes activity. Assistance may be provided throughout the activity or intermittently. 3-Partial/Moderate Assistance-helper does LESS THAN HALF the effort. [place] lifts, holds or supports trunk or limbs, but provides less than half the effort. 2-Substantial/Maximal Assistance-helper does MORE THAN HALF the effort. [place] lifts or holds trunk or limbs and provides more than half the effort. 8-Ooiepitck-gwpcyv does ALL the effort. Patient does none of the effort to complete the activity. Or, the assistance of 2 or more helpers is required for the patient to complete the activity. If activity was not attempted, code reason: 7-Patient Refused. 9-Not Applicable-not attempted and the patient did not perform the activity before the current illness, exacerbation or injury. 10-Not Attempted due to Environmental Limitations-(lack of equipment, weather restraints, etc.). 88-Not Attempted due to Medical Conditions or Safety Concerns. Sit to Lying (QC): 6 Lying to Sitting/Side of Bed(Q: 6 Sit to Stand (QC): 4 Pt independent /c all completed bed mobility. Sit to stand transfer completed /c SBA for safety due to strength and balance deficits. Pt given verbal cues for proper sequencing but ignores them despite safety education. Sit to stand transfer completed 10x from edge of bed. Weight Bearing Right Lower Extremity: Right Weight Bearing/Tolerated Left Lower Extremity: Left Weight Bearing/Tolerated Assessment Current Status: Fair Progress Pt completes all bed mobility independently. Sit to stand transfer completed 10x from edge of bed /c SBA. No shortness of breath displayed. Continue to progress as tolerated per POC to improve strength, endurance, and functional ability. PT Director Construction Services Goals Director Construction Services Goals PT Fdc Goals Time Frame: May 20, 2023 Roll Left & Right (QC): 6 Sit to Lying (QC): 6 Lying-Sitting on Side/Bed(QC): 6 Sit to Stand (QC): 6 Chair/Gkr-hm-Cphts Xfer(QC): 6 Toilet Transfer (QC): 6 Car Transfer (QC): 6 Walk 150 ft (QC): 6 PT Plan Treatment/Plan Treatment Plan: Continue Plan of Care Treatment Plan: Bed Mobility, Education, Functional Activity Shannon, Functional Strength, Gait, Safety, Therapeutic Exercise, Transfers Treatment Duration: May 20, 2023 Frequency: 6 times per week Estimated Hrs Per Day: .25 hour per day Patient and/or Family Agrees t: Yes Time Time In: 1059 Time Out: 1112 DATE: May 07, 2023 Total Billed Treatment Time: 13 Total Billed Treatment 1 visit FA x 1 RACHEL STRATTON MANUFACTURING DIRECTOR May 07, 2023 11:51
[2023-05-07] MEDS: TAMSULOSIN 0.4 MG (FLOMAX) CAP PO SCH ×2 (12:12→21:10)
--- NOTE | 2023-05-07 16:13 | Occ Therapy Progress Note ---
Therapy Progress Note OT order received, OT to see patient 05/08/23 DEE DRAPER OT May 07, 2023 16:13
[2023-05-07] MEDS: cefTRIAXone IV/IM 1,000 MG in NS (IVPB) 50 ML IV SCH (16:35)
[2023-05-07 16:44] VITALS: BP 109/56
[2023-05-07] MEDS: ACETAMINOPHEN 325 MG TABLET PO PRN (16:51)
--- NOTE | 2023-05-07 19:04 | Progress Note - Cardiology ---
Cardiology SOAP Progress Note Subjective: Gen weakness and malaise No n/v/d No focal weakness Urinary hesitancy and poor stream (chronic) No palp or syncope No cp No shortness of breath at rest Objective: I&O/Vital Signs 05/07/23 05/07/23 05/07/23 05/07/23 07:02 08:00 08:14 11:21 Temp 36.4 Pulse 72 69 Resp 18 B/P (MAP) 123/69 (87) Pulse Ox 95 95 95 O2 Delivery Nasal Cannula Nasal Cannula Nasal Cannula O2 Flow Rate 2.00 2.00 2.00 05/07/23 05/07/23 05/07/23 05/07/23 11:25 12:21 15:37 16:44 Temp 36.3 Pulse 70 61 55 Resp 19 20 B/P (MAP) 141/74 (96) 109/56 (73) Pulse Ox 95 92 95 O2 Delivery Nasal Cannula Nasal Cannula Nasal Cannula O2 Flow Rate 2.00 2.00 2.00 05/07/23 18:52 Pulse Ox 92 O2 Delivery Nasal Cannula O2 Flow Rate 2.00 05/07/23 00:00 Intake Total 1585 ml Balance 1585 ml Weight (Pounds): 200 Weight (Calculated Kilograms): 90.818325 Constitutional: AAO x 3, well-developed, well-nourished, other (obese) Respiratory: No accessory muscle use; chest expansion is symmetric, chest is bilaterally symmetric, other (fair to good, bilateral air entry, diminished at the bases) Cardiovascular: regular rate-rhythm, S1 and S2, systolic murmur (soft WANDA at card base) Gastrointestional: No tender; soft; No guarding, No rebound; audible bowel sounds Extremities: No clubbing, No cyanosis, No significant edema Neurologic/Psychiatric: oriented x 3, other (moves all limbs equally) Skin: normal color, warm/dry; No cyanosis, No cool, No diaphoresis, No rash, No ulcerations Results/Procedures: Labs Laboratory Tests 05/06/23 21:19: Glucometer 221H 05/07/23 01:08: Glucometer 133H 05/07/23 05:17: White Blood Count 7.5, Red Blood Count 3.93L, Hemoglobin 11.5L, Hematocrit 37L, Mean Corpuscular Volume 93, Mean Corpuscular Hemoglobin 29, Mean Corpuscular Hemoglobin Concent 31L, Red Cell Distribution Width 13.9, Platelet Count 208, Mean Platelet Volume 10.2, Immature Granulocyte % (Auto) 0, Neutrophils (%) (Auto) 56, Lymphocytes (%) (Auto) 27, Monocytes (%) (Auto) 14H, Eosinophils (%) (Auto) 2, Basophils (%) (Auto) 0, Neutrophils # (Auto) 4.2, Lymphocytes # (Auto) 2.0, Monocytes # (Auto) 1.1H, Eosinophils # (Auto) 0.2, Basophils # (Auto) 0.0, Immature Granulocyte # (Auto) 0.0, Sodium Level 139, Potassium Level 4.4, Chloride Level 106, Carbon Dioxide Level 24, Anion Gap 9, Blood Urea Nitrogen 32H, Creatinine 2.41H, Estimat Glomerular Filtration Rate 26, BUN/Creatinine Ratio 13, Glucose Level 79, Calcium Level 8.2L, Corrected Calcium 9.0, Total Bilirubin 0.5, Aspartate Amino Transf (AST/SGOT) 31, Alanine Aminotransferase (ALT/SGPT) 20, Alkaline Phosphatase 68, Total Protein 6.5, Albumin 3.0L 05/07/23 10:25: Glucometer 171H 05/07/23 14:43: Glucometer 196H Microbiology 05/05/23 Blood Culture - Preliminary, Resulted No growth 05/05/23 Urine Culture - Final, Complete NO GROWTH Laboratory Tests 05/06/23 05:52 05/07/23 05:17 A/P: Assessment: Pneumonia Obesity with obesity-hypoventilation PAF with RVR (seen on tele during this hosp) CAD - Cardiac cath of 11-10-[address] Kaur showed calcified coronary system with mild diffuse ectasia and slow flow diffusely d/t small vessel dz. 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
[2023-05-07 19:32] VITALS: BP 104/55
[2023-05-07 23:24] VITALS: BP 115/55
[2023-05-08] VITALS (7 sets, daily range): BP systolic 92–134; BP diastolic 49–67
[2023-05-08] MEDS: hydrALAZINE (APRESOLINE) 25 MG TAB PO SCH ×3 (03:09→23:49)
[2023-05-08 05:24] LABS: BASOPHILS % (AUTO) 0 % (0-10); EOSINOPHILS # (AUTO) 0.3 10^3/uL (0.0-0.3); EOSINOPHILS % (AUTO) 3 % (0-10); HEMATOCRIT 36 % (40-54); HEMOGLOBIN 11.4 g/dL (13.3-17.7); LYMPHOCYTES % (AUTO) 22 % (12-44); MEAN CORPUSCULAR HEMOGLOBIN 29 pg (25-34); MEAN CORPUSCULAR HGB CONC 32 g/dL (32-36); MEAN CORPUSCULAR VOLUME 93 fL (80-99); MEAN PLATELET VOLUME 10.1 fL (9.0-12.2); MONOCYTES # (AUTO) 1.1 10^3/uL (0.0-1.0); MONOCYTES % (AUTO) 12 % (0-12); NEUTROPHILS # (AUTO) 5.7 10^3/uL (1.8-7.8); NEUTROPHILS % (AUTO) 62 % (42-75); PLATELET COUNT 234 10^3/uL (130-400); WHITE BLOOD COUNT 9.2 10^3/uL (4.3-11.0)
[2023-05-08 05:33] LABS: ALBUMIN 3.1 GM/DL (3.2-4.5); POTASSIUM 4.2 MMOL/L (3.6-5.0)
[2023-05-08 05:35] LABS: TOTAL PROTEIN 6.6 GM/DL (6.4-8.2)
[2023-05-08 05:37] LABS: BILIRUBIN,TOTAL 0.3 MG/DL (0.1-1.0)
[2023-05-08 05:39] LABS: CREATININE SERUM 2.39 MG/DL (0.60-1.30)
[2023-05-08] MEDS: inSUlin ASPART (NovoLOG) 1 UNIT/0.01 ML (CHARGE PER UNIT) SC SCH ×4 (05:50→20:59)
[2023-05-08] MEDS: ISOSORBIDE MONONITRATE 60 MG (IMDUR) TAB PO SCH (05:54)
[2023-05-08] MEDS: polyethylene glycoL POWDER 17 GM (MIRALAX) PACK PO PRN ×2 (06:05→17:39)
[2023-05-08] MEDS: RT-ALBUTEROL SULF 2.5 MG/3 ML PRE-MIX VIAL INH SCH ×2 (07:27→21:18)
[2023-05-08] MEDS: TAMSULOSIN 0.4 MG (FLOMAX) CAP PO SCH ×2 (08:05→20:24)
[2023-05-08] MEDS: SENNOSIDES 8.6 MG (SENOKOT) TAB PO SCH ×2 (08:05→20:22)
[2023-05-08] MEDS: APIXABAN 2.5 MG (ELIQUIS) TABLET PO SCH ×2 (08:05→20:24)
[2023-05-08] MEDS: LORATADINE (CLARITIN) 10 MG TAB PO SCH (08:05)
[2023-05-08] MEDS: ASPIRIN E.C. 81 MG (ECOTRIN) TAB PO SCH (08:05)
[2023-05-08] MEDS: PANTOPRAZOLE 40 MG (PROTONIX) TAB PO SCH (08:05)
[2023-05-08] MEDS: FLUTICASONE NASAL SPRAY (FLONASE) 16 GM BTL NS SCH (08:05)
[2023-05-08] MEDS: AZITHROMYCIN 250 MG TAB (ZITHROMAX) PO SCH (08:06)
[2023-05-08] MEDS: DOCUSATE SODIUM 100 MG (COLACE) CAP PO SCH ×2 (08:06→20:22)
[2023-05-08] MEDS: FINASTERIDE (PROSCAR) 5 MG TAB PO SCH (08:06)
--- NOTE | 2023-05-08 09:42 | Progress Note - Cardiology ---
Cardiology SOAP Progress Note Subjective: Sitting up in recliner at the bedside Feels breathing is improving No c/o CP or palpitations Objective: I&O/Vital Signs 05/08/23 05/09/23 05/09/23 05/09/23 23:43 01:00 03:01 06:30 Temp 36.6 36.6 Pulse 71 70 74 76 Resp 18 18 B/P (MAP) 126/63 (84) 134/65 (88) 117/55 (75) Pulse Ox 95 96 O2 Delivery Nasal Cannula Nasal Cannula O2 Flow Rate 2.00 2.00 05/09/23 05/09/23 05/09/23 07:00 07:12 10:29 Temp 36.6 Pulse 77 84 Resp 18 B/P (MAP) 135/78 (97) Pulse Ox 91 91 O2 Delivery Room Air Nasal Cannula O2 Flow Rate 2.00 05/09/23 00:00 Intake Total 1570 ml Output Total 350 ml Balance 1220 ml Weight (Pounds): 200 Weight (Calculated Kilograms): 90.267328 Constitutional: AAO x 3, well-developed, well-nourished, other (obese) Respiratory: No accessory muscle use; chest expansion is symmetric, chest is bilaterally symmetric, other (fair to good, bilateral air entry, diminished at the bases) Cardiovascular: regular rate-rhythm, S1 and S2, systolic murmur (soft WANDA at card base) Gastrointestional: No tender; soft; No guarding, No rebound; audible bowel sounds Extremities: No clubbing, No cyanosis, No significant edema Neurologic/Psychiatric: oriented x 3, other (moves all limbs equally) Skin: normal color, warm/dry; No cyanosis, No cool, No diaphoresis, No rash, No ulcerations Results/Procedures: Labs Laboratory Tests 05/08/23 14:35: Glucometer 164H 05/08/23 18:10: Glucometer 194H 05/08/23 20:57: Glucometer 227H 05/08/23 23:46: Glucometer 177H 05/09/23 03:02: Glucometer 114H 05/09/23 05:08: White Blood Count 8.2, Red Blood Count 3.84L, Hemoglobin 11.3L, Hematocrit 36L, Mean Corpuscular Volume 92, Mean Corpuscular Hemoglobin 29, Mean Corpuscular Hemoglobin Concent 32, Red Cell Distribution Width 13.7, Platelet Count 246, Mean Platelet Volume 10.0, Immature Granulocyte % (Auto) 0, Neutrophils (%) (Auto) 65, Lymphocytes (%) (Auto) 20, Monocytes (%) (Auto) 11, Eosinophils (%) (Auto) 3, Basophils (%) (Auto) 0, Neutrophils # (Auto) 5.3, Lymphocytes # (Auto) 1.6, Monocytes # (Auto) 0.9, Eosinophils # (Auto) 0.3, Basophils # (Auto) 0.0, Immature Granulocyte # (Auto) 0.0, Sodium Level 137, Potassium Level 4.2, Chloride Level 108H, Carbon Dioxide Level 20L, Anion Gap 9, Blood Urea Nitrogen 43H, Creatinine 2.29H, Estimat Glomerular Filtration Rate 27, BUN/Creatinine Ratio 19, Glucose Level 131H, Calcium Level 8.0L, Corrected Calcium 8.8, Total Bilirubin 0.4, Aspartate Amino Transf (AST/SGOT) 27, Alanine Aminotransferase (ALT/SGPT) 23, Alkaline Phosphatase 78, Total Protein 6.4, Albumin 3.0L 05/09/23 08:42: Glucometer 207H Microbiology 05/05/23 Blood Culture - Preliminary, Resulted No growth 05/05/23 Urine Culture - Final, Complete NO GROWTH A/P: Assessment: Pneumonia Obesity with obesity-hypoventilation PAF with RVR (seen on tele during this hosp) CAD - Cardiac cath of 11-10-[address] Kaur showed calcified coronary system with mild diffuse ectasia and slow flow diffusely d/t small vessel dz. 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
--- NOTE | 2023-05-08 10:36 | Physical Therapy Daily Note ---
PT Daily Note-Current Subjective Patient reports he is very tired and didn't sleep last night. Agrees to therapy. Pain Section J - Health Conditions 1. Rarely or not at all 2. Occasionally 3. Frequently 4. Almost constantly 8. Unable to answer Pain Effect on Sleep: 1 Pain Interference with Therapy: 1 Pain Interference w/Day-to-Day: 1 Transfers SCALE: Activities may be completed with or without assistive devices. 3-Opxkyyxlgh-rimdmop completes the activity by him/herself with no assistance from a helper. 5-Set-up or Clean-up Assistance-helper sets up or cleans up; patient completes activity. [place] assists only prior to or following the activity. 4-Supervision or Touching Assistance-helper provides verbal cues and/or touching /steadying and/or contact guard assistance as patient completes activity. Assistance may be provided throughout the activity or intermittently. 3-Partial/Moderate Assistance-helper does LESS THAN HALF the effort. [place] lifts, holds or supports trunk or limbs, but provides less than half the effort. 2-Substantial/Maximal Assistance-helper does MORE THAN HALF the effort. [place] lifts or holds trunk or limbs and provides more than half the effort. 3-Rlyhrqred-laforv does ALL the effort. Patient does none of the effort to complete the activity. Or, the assistance of 2 or more helpers is required for the patient to complete the activity. If activity was not attempted, code reason: 7-Patient Refused. 9-Not Applicable-not attempted and the patient did not perform the activity before the current illness, exacerbation or injury. 10-Not Attempted due to Environmental Limitations-(lack of equipment, weather restraints, etc.). 88-Not Attempted due to Medical Conditions or Safety Concerns. Sit to Stand (QC): 4 Weight Bearing Right Lower Extremity: Right Weight Bearing/Tolerated Left Lower Extremity: Left Weight Bearing/Tolerated Gait Training Distance: 50' Walk 10 feet (QC): 4 Walk 50 ft with 2 Turns(QC): 4 Gait Assistive Device: FWW slow, steady gait sequence Exercises Seated Therapy Exercises: Ankle pumps, Long arc quads Seated Reps: 15 Assessment Patient tolerated treatment well and remains up in recliner. Patient is currently CGA with all mobility. Telesitter present. 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 Care Home Goals PT Care Home Goals Time Frame: May 20, 2023 Roll Left & Right (QC): 6 Sit to Lying (QC): 6 Lying-Sitting on Side/Bed(QC): 6 Sit to Stand (QC): 6 Chair/Mxd-ng-Luxzh Xfer(QC): 6 Toilet Transfer (QC): 6 Car Transfer (QC): 6 Walk 150 ft (QC): 6 PT Plan Treatment/Plan Treatment Plan: Continue Plan of Care Treatment Plan: Bed Mobility, Education, Functional Activity Shannon, Functional Strength, Gait, Safety, Therapeutic Exercise, Transfers Treatment Duration: May 20, 2023 Frequency: 6 times per week Estimated Hrs Per Day: .25 hour per day Patient and/or Family Agrees t: Yes Time Time In: 915 Time Out: 930 DATE: May 08, 2023 Total Billed Treatment Time: 15 Total Billed Treatment 1 visit FA 15 min RANJITH FIERRO PT May 08, 2023 10:36
--- NOTE | 2023-05-08 13:06 | Progress Note ---
JANINA AKINS 05/08/23 1306: Subjective Date Seen by a Provider: May 08, 2023 Time Seen by a Provider: 08:30 Subjective/Events-last exam Patient reports doing well this morning. Reports improved shortness of breath. Denies fever/chills overnight. Still on nasal cannula satting in the low 90s. Had episode of coughing this morning but overall cough has decreased. No N/V. Review of Systems General: No Chills, No Night Sweats HEENT: No Head Aches, No Visual Changes Pulmonary: Dyspnea (improved), Cough (improved) Cardiovascular: No: Chest Pain, Palpitations Gastrointestinal: No: Nausea, Vomiting Genitourinary: No Dysuria, No Hematuria Neurological: No: Change in speech, Confusion Focused Exam Lactate Level 05/05/23 16:25: Lactic Acid Level 0.77 Objective Exam Last Set of Vital Signs Vital Signs Date Time Temp Pulse Resp B/P (MAP) Pulse Ox O2 Delivery O2 Flow Rate FiO2 05/08/23 11:35 36.1 62 18 114/65 (81) 96 Nasal Cannula 2.00 Capillary Refill : I&O Intake and Output 05/08/23 00:00 Intake Total 3930 ml Output Total 800 ml Balance 3130 ml Intake Oral 2880 ml IV Total 1050 ml Output Urine Total 800 ml # Voids 1 General: Alert, Oriented X3 HEENT: Atraumatic, EOMI Neck: Supple Lungs: Clear to Auscultation Heart: Regular Rate, Normal S1, Normal S2 Abdomen: Soft, No Tenderness Extremities: No Cyanosis, No Edema Neuro: Normal Speech Psych/Mental Status: Mental Status NL, Mood NL Results Lab Laboratory Tests 05/07/23 14:43: Glucometer 196H 05/07/23 20:21: Glucometer 186H 05/07/23 23:31: Glucometer 156H 05/08/23 02:58: Glucometer 133H 05/08/23 05:11: White Blood Count 9.2, Red Blood Count 3.90L, Hemoglobin 11.4L, Hematocrit 36L, Mean Corpuscular Volume 93, Mean Corpuscular Hemoglobin 29, Mean Corpuscular Hemoglobin Concent 32, Red Cell Distribution Width 13.8, Platelet Count 234, Mean Platelet Volume 10.1, Immature Granulocyte % (Auto) 0, Neutrophils (%) (Auto) 62, Lymphocytes (%) (Auto) 22, Monocytes (%) (Auto) 12, Eosinophils (%) (Auto) 3, Basophils (%) (Auto) 0, Neutrophils # (Auto) 5.7, Lymphocytes # (Auto) 2.0, Monocytes # (Auto) 1.1H, Eosinophils # (Auto) 0.3, Basophils # (Auto) 0.0, Immature Granulocyte # (Auto) 0.0, Sodium Level 136, Potassium Level 4.2, Chloride Level 106, Carbon Dioxide Level 22, Anion Gap 8, Blood Urea Nitrogen 44H, Creatinine 2.39H, Estimat Glomerular Filtration Rate 26, BUN/Creatinine Ratio 18, Glucose Level 121H, Calcium Level 8.0L, Corrected Calcium 8.7, Total Bilirubin 0.3, Aspartate Amino Transf (AST/SGOT) 27, Alanine Aminotransferase (ALT/SGPT) 18, Alkaline Phosphatase 80, Total Protein 6.6, Albumin 3.1L 05/08/23 09:36: Glucometer 190H Microbiology 05/05/23 Blood Culture - Preliminary, Resulted No growth 05/05/23 Urine Culture - Final, Complete NO GROWTH Assessment/Plan Assessment/Plan Assess & Plan/Chief Complaint Shortness of breath Community aquired PNA Elevated BNP CKD stage 3 T2DM Hypertension BPH New onset paroxysmal atrial fibrillation found on telemetry strips Urinary retention requiring Finch catheter placement Plan: Ceftriaxone and azithromycin (day 3) Continue hydralazine and carvedilol, blood pressure doing well, 134/[address] Gloria consult for PAF Started on long acting diltiazem and apixaban Gentle IV fluid in setting of CKD with elevated BNP Losartan and Lasix held due to elevated creatinine Finch catheter for urinary retention Talked with family about need for skilled placement following discharge DVT ppx- anticoagulated with apixaban Diet- regular Code- full LOIDA OWUSU DO 05/08/232119: Supervisory-Addendum Brief Verification & Attestation Participated in pt care: history, MDM, physical Personally performed: exam, history, MDM, supervision of care Care discussed with: Medical Student Procedures: n/a Results interpretation: Verified all documentation Verification and Attestation of Medical Student E/M Service A medical student performed and documented this service in my presence. I revie wed and verified all information documented by the medical student and made modifications to such information, when appropriate. I personally performed the physical exam and medical decision making. Loida Owusu, May 08, 2023,21:19 JANINA AKINS May 08, 2023 13:06 LOIDA OWUSU DO May 08, 2023 21:20
[2023-05-08] MEDS: NS IV 1000 ML 1,000 ML IV SCH (14:33)
--- NOTE | 2023-05-08 14:37 | Occupational Ther Daily Note ---
OT Current Status-Daily Note Subjective Agrees to OT evaluation and minimal activity, request to remain in bed and set up in recliner at end of session to change linens Mental Status/Objective Patient Orientation: Person, Place, Situation Attachments: Finch Catheter, IV, Oxygen telesitter ADL-Treatment Therapy Code Descriptions/Definitions Functional Kings Measure: 0=Not Assessed/NA 4=Minimal Assistance 1=Total Assistance 5=Supervision or Setup 2=Maximal Assistance 6=Modified Kings 3=Moderate Assistance 7=Complete IndependenceSCALE: Activities may be completed with or without assistive devices. 4-Hhpcrrdixf-qfxhotc completes the activity by him/herself with no assistance f rom a helper. 5-Set-up or Clean-up Assistance-helper sets up or cleans up; patient completes activity. [place] assists only prior to or following the activity. 4-Supervision or Touching Assistance-helper provides verbal cues and/or touching/steadying and/or contact guard assistance as patient completes activity. Assistance may be provided throughout the activity or intermittently. 3-Partial/Moderate Assistance-helper does LESS THAN HALF the effort. [place] lifts, holds or supports trunk or limbs, but provides less than half the effort. 2-Substantial/Maximal Assistance-helper does MORE THAN HALF the effort. [place] lifts or holds trunk or limbs and provides more than half the effort. 9-Mgffovusc-mfguqk does ALL the effort. Patient does none of the effort to complete the activity. Or, the assistance of 2 or more helpers is required for the patient to complete the activity. If activity was not attempted, code reason: 7-Patient Refused. 9-Not Applicable-not attempted and the patient did not perform the activity before the current illness, exacerbation or injury. 10-Not Attempted due to Environmental Limitations-(lack of equipment, weather restraints, etc.). 88-Not Attempted due to Medical Conditions or Safety Concerns. Eating (QC): 6 Oral Hygiene (QC): 5 Upper Body Dressing (QC): 4 Lower Body Dressing (QC): 3 On/Off Footwear: 2 Toileting Hygiene (QC): 3 Toilet Transfer (QC): 3 Education OT Patient Education: Correct positioning, Modified ADL techniques, Progress toward Goal/Update tx plan, Purpose of tx/functional activities, Reviewed precautions, Rehab process, Safety issues, Transfer techniques, Use of adapted equipment Teaching Recipient: Patient Teaching Methods: Demonstration, Discussion Response to Teaching: Verbalize Understanding, Reinforcement Needed OT Area Manager Goals Intermediate Goals 1=Demonstrate adherence to instructed precautions during ADL tasks. 2=Patient will verbalize/demonstrate understanding of assistive devices/modifications for ADL. 3=Patient will improve strength/tolerance for activity to enable patient to perform ADL's. OT Education/Plan Problem List/Assessment Assessment: Decreased Activ Tolerance, Decreased Safety Aware, Decreased UE Strength, Impaired Cognition, Impaired Funct Balance, Impaired Self-Care Skills Discharge Recommendations Plan/Recommendations: Continue POC Therapy Discharge Recommendati: Post Acute OT Treatment Plan/Plan of Care Treatment,Training & Education: Yes Patient would benefit from OT for education, treatment and training to promote independence in ADL's, mobility, safety and/or upper extremity function for ADL's. Plan of Care: ADL Retraining, Functional Mobility, Group Exercise/Act as Ind, UE Funct Exercise/Act, UE Neuromus Re-Ed/Coord Treatment Duration: May 16, 2023 Frequency: 3 times per week (3-5 times per week) Estimated Hrs Per Day: 1.5 hours per day Agreement: Yes Rehab Potential: Fair Time Start Time: 09:20 Stop Time: 09:37 DATE: May 08, 2023 Total Time Billed (hr/min): 17 Billed Treatment Time EVM 17 DEE DRAPER OT May 08, 2023 14:37
--- NOTE | 2023-05-08 14:45 | Occupational Therapy Eval ---
OT Evaluation-General/PLF Medical Diagnosis Admission Date May 07, 2023 at 12:35 Medical Diagnosis: pneumonuia Onset Date: May 05, 2023 Therapy Diagnosis Therapy Diagnosis: weakness Height/Weight Height (Feet): 5 Height (Inches): 7.00 Weight (Pounds): 200 Precautions Precautions/Isolations: Fall Prevention, Standard Precautions Referral Physician: Dr. Vilchis Referral Reason: Evaluation/Treatment Medical History Pertinent Medical History: CAD, DM, HTN Additional Medical History This is an 82-year-old male clinic patient with history of chronic kidney disease probable hypertension nephropathy and diabetic nephropathy with low vision who presented to the ER with shortness of breath. Patient was found to have pneumonia. Elevated D-dimer patient has Doppler ultrasound which was negative for DVT. Elevated BNP will be managed by Dr. 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 Initiated community-acquired pneumonia antibiotics and will monitor creatinine closely. Social History Home: Single Level Current Living Status: Alone Entry Into Home: Ramp ADL-Prior Level of Function SCALE: Activities may be completed with or without assistive devices. 0-Dtoymweaqd-smkuakz completes the activity by him/herself with no assistance from a helper. 5-Set-up or Clean-up Assistance-helper sets up or cleans up; patient completes activity. [place] assists only prior to or following the activity. 4-Supervision or Touching Assistance-helper provides verbal cues and/or t ouching/steadying and/or contact guard assistance as patient completes activity. Assistance may be provided throughout the activity or intermittently. 3-Partial/Moderate Assistance-helper does LESS THAN HALF the effort. [place] lifts, holds or supports trunk or limbs, but provides less than half the effort. 2-Substantial/Maximal Assistance-helper does MORE THAN HALF the effort. [place] lifts or holds trunk or limbs and provides more than half the effort. 5-Mpgagnkey-uruwaj does ALL the effort. Patient does none of the effort to complete the activity. Or, the assistance of 2 or more helpers is required for the patient to complete the activity. If activity was not attempted, code reason: 7-Patient Refused. 9-Not Applicable-not attempted and the patient did not perform the activity before the current illness, exacerbation or injury. 10-Not Attempted due to Environmental Limitations-(lack of equipment, weather restraints, etc.). 88-Not Attempted due to Medical Conditions or Safety Concerns. Self Care: Independent Functional Cognition: Independent OT Current Status Subjective Agrees to OT evaluation and minimal activity, request to remain in bed and set up in recliner at end of session to change linens Mental Status/Objective Attachments: Other-See Comments (Finch Catheter, IV, Oxygen, tellesitter) ADL-Treatment Eating (QC): 6 Oral Hygiene (QC): 5 Shower/Bathe Self (QC): 4 Upper Body Dressing (QC): 3 Lower Body Dressing (QC): 2 On/Off Footwear (QC): 3 Toileting Hygiene (QC): 3 Education OT Patient Education: Correct positioning, Modified ADL techniques, Progress toward Goal/Update tx plan, Purpose of tx/functional activities, Safety issues, Transfer techniques, Use of adapted equipment OT Shelter Goals Embroidery Finisher Goals Oral Hygiene (QC): 6 Toileting Hygiene (QC): 6 Shower/Bathe Self (QC): 6 Upper Body Dressing (QC): 6 Lower Body Dressing (QC): 6 On/Off Footwear (QC): 6 1=Demonstrate adherence to instructed precautions during ADL tasks. 2=Patient will verbalize/demonstrate understanding of assistive devices/modifications for ADL. 3=Patient will improve strength/tolerance for activity to enable patient to perform ADL's. OT Education/Plan Problem List/Assessment Assessment: Decreased Activ Tolerance, Decreased Safety Aware, Impaired Self- Care Skills Discharge Recommendations Plan/Recommendations: Continue POC Treatment Plan/Plan of Care Patient would benefit from OT for education, treatment and training to promote independence in ADL's, mobility, safety and/or upper extremity function for ADL's. Plan of Care: ADL Retraining, Functional Mobility, Group Exercise/Act as Ind, UE Funct Exercise/Act, UE Neuromus Re-Ed/Coord Treatment Duration: May 16, 2023 Frequency: 3 times per week (3-5 times per week) Estimated Hrs Per Day: 1.5 hours per day Agreement: Yes Rehab Potential: Fair Time Start Time: 09:20 Stop Time: 09:37 DATE: May 08, 2023 Total Time Billed (hr/min): 17 Billed Treatment Time EVM 17 min DEE DRAPER OT May 08, 2023 14:45
[2023-05-08] MEDS: cefTRIAXone IV/IM 1,000 MG in NS (IVPB) 50 ML IV SCH (16:22)
--- NOTE | 2023-05-08 17:48 | Progress Note - Cardiology ---
Cardiology SOAP Progress Note Subjective: No cp or palp or syncope or shortness of breath Gen weakness and malaise No n/v/d Objective: I&O/Vital Signs 05/08/23 05/08/23 05/08/23 05/08/23 07:00 07:27 07:48 08:29 Temp 36.3 Pulse 73 68 Resp 18 B/P (MAP) 109/65 (80) Pulse Ox 94 93 95 O2 Delivery Nasal Cannula Nasal Cannula Nasal Cannula O2 Flow Rate 2.00 2.00 2.00 05/08/23 05/08/23 05/08/23 05/08/23 10:21 11:35 13:00 16:48 Temp 36.3 36.1 36.1 Pulse 68 62 58 60 Resp 18 18 B/P (MAP) 114/65 (81) 92/52 (65) Pulse Ox 95 96 96 O2 Delivery Nasal Cannula Nasal Cannula O2 Flow Rate 2.00 2.00 05/08/23 00:00 Intake Total 3530 ml Output Total 800 ml Balance 2730 ml Weight (Pounds): 200 Weight (Calculated Kilograms): 90.584053 Constitutional: AAO x 3, well-developed, well-nourished, other (obese) Respiratory: No accessory muscle use; chest expansion is symmetric, chest is bilaterally symmetric, other (fair to good, bilateral air entry, diminished at the bases) Cardiovascular: regular rate-rhythm, S1 and S2, systolic murmur (soft WANDA at card base) Gastrointestional: No tender; soft; No guarding, No rebound; audible bowel sounds Extremities: No clubbing, No cyanosis, No significant edema Neurologic/Psychiatric: oriented x 3, other (moves all limbs equally) Skin: normal color, warm/dry; No cyanosis, No cool, No diaphoresis, No rash, No ulcerations Results/Procedures: Labs Laboratory Tests 05/07/23 20:21: Glucometer 186H 05/07/23 23:31: Glucometer 156H 05/08/23 02:58: Glucometer 133H 05/08/23 05:11: White Blood Count 9.2, Red Blood Count 3.90L, Hemoglobin 11.4L, Hematocrit 36L, Mean Corpuscular Volume 93, Mean Corpuscular Hemoglobin 29, Mean Corpuscular Hemoglobin Concent 32, Red Cell Distribution Width 13.8, Platelet Count 234, Mean Platelet Volume 10.1, Immature Granulocyte % (Auto) 0, Neutrophils (%) (Auto) 62, Lymphocytes (%) (Auto) 22, Monocytes (%) (Auto) 12, Eosinophils (%) (Auto) 3, Basophils (%) (Auto) 0, Neutrophils # (Auto) 5.7, Lymphocytes # (Auto) 2.0, Monocytes # (Auto) 1.1H, Eosinophils # (Auto) 0.3, Basophils # (Auto) 0.0, Immature Granulocyte # (Auto) 0.0, Sodium Level 136, Potassium Level 4.2, Chloride Level 106, Carbon Dioxide Level 22, Anion Gap 8, Blood Urea Nitrogen 44H, Creatinine 2.39H, Estimat Glomerular Filtration Rate 26, BUN/Creatinine Ratio 18, Glucose Level 121H, Calcium Level 8.0L, Corrected Calcium 8.7, Total Bilirubin 0.3, Aspartate Amino Transf (AST/SGOT) 27, Alanine Aminotransferase (ALT/SGPT) 18, Alkaline Phosphatase 80, Total Protein 6.6, Albumin 3.1L 05/08/23 09:36: Glucometer 190H 05/08/23 14:35: Glucometer 164H Microbiology 05/05/23 Blood Culture - Preliminary, Resulted No growth 05/05/23 Urine Culture - Final, Complete NO GROWTH Laboratory Tests 05/07/23 05:17 05/08/23 05:11 A/P: Assessment: Pneumonia Obesity with obesity-hypoventilation PAF with RVR (seen on tele during this hosp) CAD - Cardiac cath of 11-10-[address] Kaur showed calcified coronary system with mild diffuse ectasia and slow flow diffusely d/t small vessel dz. 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
[2023-05-09] VITALS (7 sets, daily range): BP systolic 103–149; BP diastolic 55–81
[2023-05-09] MEDS: hydrALAZINE (APRESOLINE) 25 MG TAB PO SCH ×2 (03:01→17:49)
[2023-05-09] MEDS: NS IV 1000 ML 1,000 ML IV SCH (03:50)
[2023-05-09 05:30] LABS: BASOPHILS % (AUTO) 0 % (0-10); EOSINOPHILS # (AUTO) 0.3 10^3/uL (0.0-0.3); EOSINOPHILS % (AUTO) 3 % (0-10); HEMATOCRIT 36 % (40-54); HEMOGLOBIN 11.3 g/dL (13.3-17.7); LYMPHOCYTES # (AUTO) 1.6 10^3/uL (1.0-4.0); LYMPHOCYTES % (AUTO) 20 % (12-44); MEAN CORPUSCULAR HEMOGLOBIN 29 pg (25-34); MEAN CORPUSCULAR HGB CONC 32 g/dL (32-36); MEAN CORPUSCULAR VOLUME 92 fL (80-99); MONOCYTES # (AUTO) 0.9 10^3/uL (0.0-1.0); MONOCYTES % (AUTO) 11 % (0-12); NEUTROPHILS # (AUTO) 5.3 10^3/uL (1.8-7.8); NEUTROPHILS % (AUTO) 65 % (42-75); PLATELET COUNT 246 10^3/uL (130-400); WHITE BLOOD COUNT 8.2 10^3/uL (4.3-11.0)
[2023-05-09 05:58] LABS: BILIRUBIN,TOTAL 0.4 MG/DL (0.1-1.0); CREATININE SERUM 2.29 MG/DL (0.60-1.30); POTASSIUM 4.2 MMOL/L (3.6-5.0); TOTAL PROTEIN 6.4 GM/DL (6.4-8.2)
[2023-05-09] MEDS: inSUlin ASPART (NovoLOG) 1 UNIT/0.01 ML (CHARGE PER UNIT) SC SCH ×4 (06:28→20:20)
[2023-05-09] MEDS: ISOSORBIDE MONONITRATE 60 MG (IMDUR) TAB PO SCH (06:31)
[2023-05-09] MEDS: PANTOPRAZOLE 40 MG (PROTONIX) TAB PO SCH (08:49)
[2023-05-09] MEDS: FINASTERIDE (PROSCAR) 5 MG TAB PO SCH (08:49)
[2023-05-09] MEDS: SENNOSIDES 8.6 MG (SENOKOT) TAB PO SCH ×2 (08:49→20:22)
[2023-05-09] MEDS: DOCUSATE SODIUM 100 MG (COLACE) CAP PO SCH ×2 (08:49→20:22)
[2023-05-09] MEDS: TAMSULOSIN 0.4 MG (FLOMAX) CAP PO SCH ×2 (08:49→20:22)
[2023-05-09] MEDS: LORATADINE (CLARITIN) 10 MG TAB PO SCH (08:49)
[2023-05-09] MEDS: AZITHROMYCIN 250 MG TAB (ZITHROMAX) PO SCH (08:49)
[2023-05-09] MEDS: APIXABAN 2.5 MG (ELIQUIS) TABLET PO SCH ×2 (08:49→20:22)
[2023-05-09] MEDS: FLUTICASONE NASAL SPRAY (FLONASE) 16 GM BTL NS SCH (08:50)
[2023-05-09] MEDS: ASPIRIN E.C. 81 MG (ECOTRIN) TAB PO SCH (08:50)
--- NOTE | 2023-05-09 09:31 | Physical Therapy Daily Note ---
PT Daily Note-Current Subjective Pt found seated in recliner upon entry. Agreed to PT. States that he did not sleep well last night. No reports of pain. Pain Section J - Health Conditions 1. Rarely or not at all 2. Occasionally 3. Frequently 4. Almost constantly 8. Unable to answer Pain Effect on Sleep: 1 Pain Interference with Therapy: 1 Pain Interference w/Day-to-Day: 1 Mental Status Attachments: Finch Catheter, IV Transfers SCALE: Activities may be completed with or without assistive devices. 9-Gdzbxvlils-jzqciuk completes the activity by him/herself with no assistance from a helper. 5-Set-up or Clean-up Assistance-helper sets up or cleans up; patient completes activity. [place] assists only prior to or following the activity. 4-Supervision or Touching Assistance-helper provides verbal cues and/or touching/steadying and/or contact guard assistance as patient completes activity. Assistance may be provided throughout the activity or intermittently. 3-Partial/Moderate Assistance-helper does LESS THAN HALF the effort. [place] lifts, holds or supports trunk or limbs, but provides less than half the effort. 2-Substantial/Maximal Assistance-helper does MORE THAN HALF the effort. [place] lifts or holds trunk or limbs and provides more than half the effort. 8-Ntkbcisda-ktpywa does ALL the effort. Patient does none of the effort to complete the activity. Or, the assistance of 2 or more helpers is required for the patient to complete the activity. If activity was not attempted, code reason: 7-Patient Refused. 9-Not Applicable-not attempted and the patient did not perform the activity before the current illness, exacerbation or injury. 10-Not Attempted due to Environmental Limitations-(lack of equipment, weather restraints, etc.). 88-Not Attempted due to Medical Conditions or Safety Concerns. Sit to Stand (QC): 4 CGA for safety due to balance deficits. Verbal cues for proper sequencing. Weight Bearing Right Lower Extremity: Right Weight Bearing/Tolerated Left Lower Extremity: Left Weight Bearing/Tolerated Gait Training Does the Patient Walk?: Yes Distance: 30, 30 Walk 10 feet (QC): 4 Gait Assistive Device: FWW Pt ambulates /c FWW and requires CGA for safety due to strength and balance deficits. Ambulated 30 feet x 2. Assessment Current Status: Fair Progress Pt displays poor tolerance /c gait training this visit. Ambulated 30 feet x 2 /c use of FWW and CGA required. Pt required a short seated rest break before continuing gait training. Slight dizziness reported after second trip. Demonstrates slow gait cycle /c decent step lengths. Continue to progress per POC to improve strength, endurance, and functional ability. PT Pecan Sheller Goals Pecan Sheller Goals PT Residential Goals Time Frame: May 20, 2023 Roll Left & Right (QC): 6 Sit to Lying (QC): 6 Lying-Sitting on Side/Bed(QC): 6 Sit to Stand (QC): 6 Chair/Nax-bg-Nnasl Xfer(QC): 6 Toilet Transfer (QC): 6 Car Transfer (QC): 6 Walk 150 ft (QC): 6 PT Plan Treatment/Plan Treatment Plan: Continue Plan of Care Treatment Plan: Bed Mobility, Education, Functional Activity Shannon, Functional Strength, Gait, Safety, Therapeutic Exercise, Transfers Treatment Duration: May 20, 2023 Frequency: 6 times per week Estimated Hrs Per Day: .25 hour per day Patient and/or Family Agrees t: Yes Time Time In: 909 Time Out: 923 DATE: May 09, 2023 Total Billed Treatment Time: 14 Total Billed Treatment 1 visit GT x 1 RACHEL STRATTON ELECTRIC TRIPPER MACHINE OPERATOR May 09, 2023 09:31
[2023-05-09] MEDS: RT-ALBUTEROL SULF 2.5 MG/3 ML PRE-MIX VIAL INH SCH ×2 (10:28→19:46)
--- NOTE | 2023-05-09 10:41 | Progress Note - Cardiology ---
Cardiology SOAP Progress Note Subjective: Lying in bed States breathing is better today No c/o CP or palpitations Objective: I&O/Vital Signs 05/11/23 05/12/23 05/12/23 05/12/23 23:31 01:00 03:12 07:00 Temp 36.6 36.3 Pulse 74 88 67 64 Resp 18 18 B/P (MAP) 137/63 (87) 148/67 (94) Pulse Ox 96 96 O2 Delivery Room Air Nasal Cannula O2 Flow Rate 0.00 3.00 0.00 05/12/23 07:22 Temp 36.3 Pulse 80 Resp 20 B/P (MAP) 163/75 (104) Pulse Ox 96 O2 Delivery Room Air 05/12/23 00:00 Intake Total 1130 ml Output Total 700 ml Balance 430 ml Weight (Pounds): 200 Weight (Calculated Kilograms): 90.503270 Constitutional: AAO x 3, well-developed, well-nourished, other (obese) Respiratory: No accessory muscle use; chest expansion is symmetric, chest is bilaterally symmetric, other (fair to good, bilateral air entry, diminished at the bases) Cardiovascular: regular rate-rhythm, S1 and S2, systolic murmur (soft WANDA at card base) Gastrointestional: No tender; soft; No guarding, No rebound; audible bowel s ounds Extremities: No clubbing, No cyanosis, No significant edema Neurologic/Psychiatric: oriented x 3, other (moves all limbs equally) Skin: normal color, warm/dry; No cyanosis, No cool, No diaphoresis, No rash, No ulcerations Results/Procedures: Labs Laboratory Tests 05/11/23 14:17: Glucometer 208H 05/11/23 17:38: Glucometer 88 05/11/23 19:42: Glucometer 124H 05/12/23 04:44: White Blood Count 7.3, Red Blood Count 3.75L, Hemoglobin 11.1L, Hematocrit 35L, Mean Corpuscular Volume 92, Mean Corpuscular Hemoglobin 30, Mean Corpuscular Hemoglobin Concent 32, Red Cell Distribution Width 14.1, Platelet Count 280, Mean Platelet Volume 10.1, Immature Granulocyte % (Auto) 0, Neutrophils (%) (Auto) 59, Lymphocytes (%) (Auto) 25, Monocytes (%) (Auto) 13H, Eosinophils (%) (Auto) 3, Basophils (%) (Auto) 1, Neutrophils # (Auto) 4.3, Lymphocytes # (Auto) 1.8, Monocytes # (Auto) 0.9, Eosinophils # (Auto) 0.2, Basophils # (Auto) 0.0, Immature Granulocyte # (Auto) 0.0, Sodium Level 138, Potassium Level 4.4, Chloride Level 108H, Carbon Dioxide Level 23, Anion Gap 7, Blood Urea Nitrogen 30H, Creatinine 1.74H, Estimat Glomerular Filtration Rate 38, BUN/Creatinine Ratio 17, Glucose Level 192H, Calcium Level 8.4L, Corrected Calcium 9.2, Total Bilirubin 0.5, Aspartate Amino Transf (AST/SGOT) 26, Alanine Aminotransferase (ALT/SGPT) 27, Alkaline Phosphatase 82, Total Protein 6.4, Albumin 3.0L 05/12/23 05:01: Glucometer 193H 05/12/23 08:57: Glucometer 271H Microbiology 05/05/23 Blood Culture - Final, Complete No growth 05/05/23 Urine Culture - Final, Complete NO GROWTH A/P: Assessment: Pneumonia Obesity with obesity-hypoventilation PAF with RVR (seen on tele during this hosp) CAD - Cardiac cath of 11-10-[address] Kaur showed calcified coronary system with mild diffuse ectasia and slow flow diffusely d/t small vessel dz. 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
--- NOTE | 2023-05-09 10:57 | Progress Note ---
JANINA AKINS 05/09/23 1057: Subjective Date Seen by a Provider: May 09, 2023 Time Seen by a Provider: 09:15 Subjective/Events-last exam Patient seen and examined at bedside this morning. He reports improvement in his breathing, cough is still present but nonproductive. Now on room air and reports he is doing well without cannula. Denies any chest pain or palpitations. No fever or chills. Tolerating diet with no N/V/D. Has not had BM in 4 days. Urine output of 850 so far 05/[address] Review of Systems General: No Chills, No Night Sweats; Fatigue HEENT: No Head Aches, No Visual Changes Pulmonary: Dyspnea (improved), Cough Cardiovascular: No: Chest Pain, Palpitations Gastrointestinal: Constipation; No: Nausea, Vomiting, Abdominal Pain Genitourinary: No Dysuria, No Hematuria Neurological: No: Change in speech, Confusion Objective Exam Last Set of Vital Signs Vital Signs Date Time Temp Pulse Resp B/P (MAP) Pulse Ox O2 Delivery O2 Flow Rate FiO2 05/09/23 10:29 91 Nasal Cannula 2.00 05/09/23 07:12 36.6 84 18 135/78 (97) Capillary Refill : I&O Intake and Output 05/09/23 00:00 Intake Total 1820 ml Output Total 625 ml Balance 1195 ml Intake Oral 770 ml IV Total 1050 ml Output Urine Total 625 ml General: Alert, Oriented X3 HEENT: Atraumatic, EOMI Neck: Supple Lungs: Clear to Auscultation Heart: Regular Rate, Normal S1, Normal S2 Abdomen: Soft, No Tenderness Extremities: No Cyanosis, Normal Pulses Psych/Mental Status: Mental Status NL, Mood NL Results Lab Laboratory Tests 05/08/23 14:35: Glucometer 164H 05/08/23 18:10: Glucometer 194H 05/08/23 20:57: Glucometer 227H 05/08/23 23:46: Glucometer 177H 05/09/23 03:02: Glucometer 114H 05/09/23 05:08: White Blood Count 8.2, Red Blood Count 3.84L, Hemoglobin 11.3L, Hematocrit 36L, Mean Corpuscular Volume 92, Mean Corpuscular Hemoglobin 29, Mean Corpuscular Hemoglobin Concent 32, Red Cell Distribution Width 13.7, Platelet Count 246, Mean Platelet Volume 10.0, Immature Granulocyte % (Auto) 0, Neutrophils (%) (Auto) 65, Lymphocytes (%) (Auto) 20, Monocytes (%) (Auto) 11, Eosinophils (%) (Auto) 3, Basophils (%) (Auto) 0, Neutrophils # (Auto) 5.3, Lymphocytes # (Auto) 1.6, Monocytes # (Auto) 0.9, Eosinophils # (Auto) 0.3, Basophils # (Auto) 0.0, Immature Granulocyte # (Auto) 0.0, Sodium Level 137, Potassium Level 4.2, Chloride Level 108H, Carbon Dioxide Level 20L, Anion Gap 9, Blood Urea Nitrogen 43H, Creatinine 2.29H, Estimat Glomerular Filtration Rate 27, BUN/Creatinine Ratio 19, Glucose Level 131H, Calcium Level 8.0L, Corrected Calcium 8.8, Total Bilirubin 0.4, Aspartate Amino Transf (AST/SGOT) 27, Alanine Aminotransferase (ALT/SGPT) 23, Alkaline Phosphatase 78, Total Protein 6.4, Albumin 3.0L 05/09/23 08:42: Glucometer 207H Microbiology 05/05/23 Blood Culture - Preliminary, Resulted No growth 05/05/23 Urine Culture - Final, Complete NO GROWTH Assessment/Plan Assessment/Plan Assess & Plan/Chief Complaint Shortness of breath Community aquired PNA Elevated BNP CKD stage 3 T2DM Hypertension BPH New onset paroxysmal atrial fibrillation found on telemetry strips Urinary retention requiring Finch catheter placement Plan: Ceftriaxone and azithromycin (day 4). Last dose of azithro today Continue hydralazine and carvedilol, blood pressure doing well, 135/[address] Gloria consult for PAF, appreciate recs Started on long acting diltiazem and apixaban Stop IV fluids with encouragement of PO intake Losartan and Lasix held due to elevated creatinine Finch catheter for urinary retention 850 of output so far today Levemir 25 units BID with mealtime aspart Talked with family about need for skilled placement following discharge DVT ppx- anticoagulated with apixaban Diet- regular Code- full LOIDA OWUSU DO 05/09/23 2892: Supervisory-Addendum Brief Verification & Attestation Participated in pt care: history, MDM, physical Personally performed: exam, history, MDM, supervision of care Care discussed with: Medical Student Procedures: n/a Results interpretation: Verified all documentation Verification and Attestation of Medical Student E/M Service A medical student performed and documented this service in my presence. I reviewed and verified all information documented by the medical student and made modifications to such information, when appropriate. I personally performed the physical exam and medical decision making. Loida Owusu, May 09, 2023,22:08 JANINA AKINS May 09, 2023 10:57 LOIDA OWUSU DO May 09, 2023 22:09
--- NOTE | 2023-05-09 13:16 | Occ Therapy Progress Note ---
Therapy Progress Note OT attempted session in morning, patient gracefully declined and wished to remain in bed, OT will attempt next available opportunity. DEE DRAPER OT May 09, 2023 13:15
[2023-05-09] MEDS: polyethylene glycoL POWDER 17 GM (MIRALAX) PACK PO PRN (13:45)
--- NOTE | 2023-05-09 14:43 | Occupational Ther Daily Note ---
OT Current Status-Daily Note Subjective Pt alert, lying in bed. Telesitter was speaking to pt to leave IV alone when VIDAL entered room. Pt states [place] more [place] if they are watching people in hospitals. VIDAL educated pt on safety policies of hospital and that it was for pt's safety. Mental Status/Objective Patient Orientation: Person Attachments: IV, Oxygen ADL-Treatment Independent with supine to EOB. Supervision for sit <--> stand, does not position hands correct for safe transfer. Using FWW, pt able to stand then ambulate to recliner with assist for IV and O2 tubing. Pt stood to cleanse mahsa area and buttocks with SBA. Pt declined any assistance from VIDAL. After session, pt sitting in recliner with call light/phone in reach. All needs met in room. Chair alarm activated. Telesitter present. Therapy Code Descriptions/Definitions Functional Hinds Measure: 0=Not Assessed/NA 4=Minimal Assistance 1=Total Assistance 5=Supervision or Setup 2=Maximal Assistance 6=Modified Hinds 3=Moderate Assistance 7=Complete IndependenceSCALE: Activities may be completed with or without assistive devices. 2-Phjnshwyho-kfifpmz completes the activity by him/herself with no assistance from a helper. 5-Set-up or Clean-up Assistance-helper sets up or cleans up; patient completes activity. [place] assists only prior to or following the activity. 4-Supervision or Touching Assistance-helper provides verbal cues and/or touching/steadying and/or contact guard assistance as patient completes activity. Assistance may be provided throughout the activity or intermittently. 3-Partial/Moderate Assistance-helper does LESS THAN HALF the effort. [place] lifts, holds or supports trunk or limbs, but provides less than half the effort. 2-Substantial/Maximal Assistance-helper does MORE THAN HALF the effort. [place] lifts or holds trunk or limbs and provides more than half the effort. 8-Jhclkcerg-dtvhyu does ALL the effort. Patient does none of the effort to complete the activity. Or, the assistance of 2 or more helpers is required for the patient to complete the activity. If activity was not attempted, code reason: 7-Patient Refused. 9-Not Applicable-not attempted and the patient did not perform the activity before the current illness, exacerbation or injury. 10-Not Attempted due to Environmental Limitations-(lack of equipment, weather restraints, etc.). 88-Not Attempted due to Medical Conditions or Safety Concerns. OT Tour Conductor Goals Detention Goals Oral Hygiene (QC): 6 Toileting Hygiene (QC): 6 Shower/Bathe Self (QC): 6 Upper Body Dressing (QC): 6 Lower Body Dressing (QC): 6 On/Off Footwear (QC): 6 1=Demonstrate adherence to instructed precautions during ADL tasks. 2=Patient will verbalize/demonstrate understanding of assistive devices/modifications for ADL. 3=Patient will improve strength/tolerance for activity to enable patient to perform ADL's. OT Education/Plan Problem List/Assessment Assessment: Decreased Activ Tolerance, Decreased Safety Aware, Impaired Self- Care Skills Discharge Recommendations Plan/Recommendations: Continue POC Treatment Plan/Plan of Care Patient would benefit from OT for education, treatment and training to promote independence in ADL's, mobility, safety and/or upper extremity function for ADL's. Plan of Care: ADL Retraining, Functional Mobility, Group Exercise/Act as Ind, UE Funct Exercise/Act, UE Neuromus Re-Ed/Coord Treatment Duration: May 16, 2023 Frequency: 3 times per week (3-5 times per week) Estimated Hrs Per Day: 1.5 hours per day Agreement: Yes Rehab Potential: Fair Time Start Time: 14:20 Stop Time: 14:35 DATE: May 09, 2023 Total Time Billed (hr/min): 15 Billed Treatment Time 1 visit-ADL 1 (15 min) BEBETO EUCEDA May 09, 2023 14:43
--- NOTE | 2023-05-09 17:15 | Progress Note - Cardiology ---
Cardiology SOAP Progress Note Subjective: Gen weakness and malaise No cp or palp or shortness of breath No n/v/d Objective: I&O/Vital Signs 05/09/23 05/09/23 05/09/23 05/09/23 06:30 07:00 07:12 08:30 Temp 36.6 Pulse 76 77 84 Resp 18 B/P (MAP) 117/55 (75) 135/78 (97) Pulse Ox 91 O2 Delivery Room Air Nasal Cannula O2 Flow Rate 2.00 05/09/23 05/09/23 05/09/23 10:29 11:05 12:39 Temp 36.7 Pulse 73 71 Resp 18 B/P (MAP) 149/81 (103) Pulse Ox 91 91 O2 Delivery Nasal Cannula Room Air O2 Flow Rate 2.00 05/09/23 00:00 Intake Total 1570 ml Output Total 350 ml Balance 1220 ml Weight (Pounds): 200 Weight (Calculated Kilograms): 90.999845 Constitutional: No AAO x 3; well-developed, well-nourished, other (mildly confused) Respiratory: No accessory muscle use; chest expansion is symmetric, chest is bilaterally symmetric, other (fair to good, bilateral air entry, diminished at the bases) Cardiovascular: regular rate-rhythm, S1 and S2, systolic murmur (soft WANDA at card base) Gastrointestional: No tender; soft; No guarding, No rebound; audible bowel sounds Extremities: No clubbing, No cyanosis, No significant edema Neurologic/Psychiatric: No oriented x 3; other (moves all limbs equally) Skin: normal color, warm/dry; No cyanosis, No cool, No diaphoresis, No rash, No ulcerations Results/Procedures: Labs Laboratory Tests 05/08/23 18:10: Glucometer 194H 05/08/23 20:57: Glucometer 227H 05/08/23 23:46: Glucometer 177H 05/09/23 03:02: Glucometer 114H 05/09/23 05:08: White Blood Count 8.2, Red Blood Count 3.84L, Hemoglobin 11.3L, Hematocrit 36L, Mean Corpuscular Volume 92, Mean Corpuscular Hemoglobin 29, Mean Corpuscular Hemoglobin Concent 32, Red Cell Distribution Width 13.7, Platelet Count 246, Mean Platelet Volume 10.0, Immature Granulocyte % (Auto) 0, Neutrophils (%) (Auto) 65, Lymphocytes (%) (Auto) 20, Monocytes (%) (Auto) 11, Eosinophils (%) (Auto) 3, Basophils (%) (Auto) 0, Neutrophils # (Auto) 5.3, Lymphocytes # (Auto) 1.6, Monocytes # (Auto) 0.9, Eosinophils # (Auto) 0.3, Basophils # (Auto) 0.0, Immature Granulocyte # (Auto) 0.0, Sodium Level 137, Potassium Level 4.2, Chloride Level 108H, Carbon Dioxide Level 20L, Anion Gap 9, Blood Urea Nitrogen 43H, Creatinine 2.29H, Estimat Glomerular Filtration Rate 27, BUN/Creatinine Ratio 19, Glucose Level 131H, Calcium Level 8.0L, Corrected Calcium 8.8, Total Bilirubin 0.4, Aspartate Amino Transf (AST/SGOT) 27, Alanine Aminotransferase (ALT/SGPT) 23, Alkaline Phosphatase 78, Total Protein 6.4, Albumin 3.0L 05/09/23 08:42: Glucometer 207H 05/09/23 12:21: Glucometer 122H 05/09/23 13:59: Glucometer 171H Microbiology 05/05/23 Blood Culture - Preliminary, Resulted No growth 05/05/23 Urine Culture - Final, Complete NO GROWTH Laboratory Tests 05/08/23 05:11 05/09/23 05:08 A/P: Assessment: Pneumonia Obesity with obesity-hypoventilation PAF with RVR (seen on tele during this hosp) CAD - Cardiac cath of 11-10-[address] Kaur showed calcified coronary system with mild diffuse ectasia and slow flow diffusely d/t small vessel dz. 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
--- NOTE | 2023-05-09 17:23 | Physician Query-Final Dx ---
KELLY APARICIO 05/09/23 1723: Final Diagnosis Give Final Diagnosis The medical record reflects the following clinical evidence: Clinical Indicators: RR 20 on admission has been as high as 22 mostly 18-20, documentation of shortness of air at rest and with exertion on admission, O2 sat 88% on admission was started on O2 at 2L has been 91 to 96% on O2, has been on 2 L continuous for 4 to 5 days, 02 sat did decrease to 88% when titrated to 1L Risk Factor(s): Advanced age, Obesity, Pneumonia Treatment: Supplemental 02 continuous since admission, Respiratory monitoring, Acute respiratory failure with hypoxia, present on admission Other explanation of clinical findings Unable to determine (no explanation for clinical findings) Please clarify and document your clinical opinion in the progress notes and discharge summary including the definitive and/or presumptive diagnosis, (suspected or probable), related to the above clinical findings. Please include clinical findings supporting your diagnosis. Kelly Aparicio, MSN, RN Clinical Clinical Studies Specialist [phone] [email or web address] Please give Final Diagnosis GAYLE OWUSU DO 05/09/23 2135: Final Diagnosis Give Final Diagnosis Acute respiratory failure with hypoxia, present on admission KELLY APARICIO May 09, 2023 17:23 GAYLE OWUSU DO May 09, 2023 21:35
[2023-05-09] MEDS: cefTRIAXone IV/IM 1,000 MG in NS (IVPB) 50 ML IV SCH (17:49)
[2023-05-09] MEDS: CEFDINIR 300 MG (OMNICEF) CAP PO SCH (20:21)
[2023-05-09] MEDS: MELATONIN 3 MG TABLET PO PRN (20:22)
[2023-05-10] MEDS: hydrALAZINE (APRESOLINE) 25 MG TAB PO SCH ×4 (00:55→23:56)
[2023-05-10 03:15] VITALS: BP 118/78
[2023-05-10 05:27] LABS: BASOPHILS % (AUTO) 0 % (0-10); EOSINOPHILS # (AUTO) 0.3 10^3/uL (0.0-0.3); EOSINOPHILS % (AUTO) 3 % (0-10); HEMATOCRIT 38 % (40-54); HEMOGLOBIN 12.1 g/dL (13.3-17.7); LYMPHOCYTES # (AUTO) 1.7 10^3/uL (1.0-4.0); LYMPHOCYTES % (AUTO) 19 % (12-44); MEAN CORPUSCULAR HEMOGLOBIN 29 pg (25-34); MEAN CORPUSCULAR HGB CONC 32 g/dL (32-36); MEAN CORPUSCULAR VOLUME 92 fL (80-99); MEAN PLATELET VOLUME 9.8 fL (9.0-12.2); MONOCYTES % (AUTO) 11 % (0-12); NEUTROPHILS % (AUTO) 67 % (42-75); PLATELET COUNT 247 10^3/uL (130-400)
[2023-05-10] MEDS: inSUlin ASPART (NovoLOG) 1 UNIT/0.01 ML (CHARGE PER UNIT) SC SCH ×4 (05:30→20:13)
[2023-05-10 05:46] LABS: ALBUMIN 3.3 GM/DL (3.2-4.5); BILIRUBIN,TOTAL 0.4 MG/DL (0.1-1.0); CALCIUM 8.5 MG/DL (8.5-10.1); CREATININE SERUM 1.96 MG/DL (0.60-1.30); POTASSIUM 4.9 MMOL/L (3.6-5.0); TOTAL PROTEIN 7.3 GM/DL (6.4-8.2)
[2023-05-10] MEDS: ISOSORBIDE MONONITRATE 60 MG (IMDUR) TAB PO SCH (06:01)
--- NOTE | 2023-05-10 07:15 | Progress Note ---
Subjective Date Seen by a Provider: May 10, 2023 Time Seen by a Provider: 11:00 Subjective/Events-last exam Patient having no new issues Appears to be fatigued Creatinine 1.9 and GFR is 33 Rest of labs reviewed Completing oral antibiotic Reports constipation so we will increase meds Review of Systems General: Fatigue, Malaise Objective Exam Last Set of Vital Signs Vital Signs Date Time Temp Pulse Resp B/P (MAP) Pulse Ox O2 Delivery O2 Flow Rate FiO2 05/10/23 03:15 36.1 69 18 118/78 (91) 95 Nasal Cannula 2.00 Capillary Refill : I&O Intake and Output 05/10/23 00:00 Intake Total 3060 ml Output Total 1800 ml Balance 1260 ml Intake Oral 2060 ml IV Total 1000 ml Output Urine Total 1800 ml General: Alert, Oriented X3, Cooperative, No Acute Distress Lungs: Clear to Auscultation, Normal Air Movement Heart: Regular Rate, Normal S1, Normal S2, No Murmurs Psych/Mental Status: Mental Status NL, Mood NL Results Lab Laboratory Tests 05/09/23 08:42: Glucometer 207H 05/09/23 12:21: Glucometer 122H 05/09/23 13:59: Glucometer 171H 05/09/23 19:47: Glucometer 243H 05/10/23 05:18: White Blood Count 9.0, Red Blood Count 4.16L, Hemoglobin 12.1L, Hematocrit 38L, Mean Corpuscular Volume 92, Mean Corpuscular Hemoglobin 29, Mean Corpuscular Hemoglobin Concent 32, Red Cell Distribution Width 14.0, Platelet Count 247, Mean Platelet Volume 9.8, Immature Granulocyte % (Auto) 0, Neutrophils (%) (Auto) 67, Lymphocytes (%) (Auto) 19, Monocytes (%) (Auto) 11, Eosinophils (%) (Auto) 3, Basophils (%) (Auto) 0, Neutrophils # (Auto) 6.0, Lymphocytes # (Auto) 1.7, Monocytes # (Auto) 1.0, Eosinophils # (Auto) 0.3, Basophils # (Auto) 0.0, Immature Granulocyte # (Auto) 0.0, Sodium Level 139, Potassium Level 4.9, Chloride Level 109H, Carbon Dioxide Level 22, Anion Gap 8, Blood Urea Nitrogen 39H, Creatinine 1.96H, Estimat Glomerular Filtration Rate 33, BUN/Creatinine Ratio 20, Glucose Level 132H, Calcium Level 8.5, Corrected Calcium 9.1, Total Bilirubin 0.4, Aspartate Amino Transf (AST/SGOT) 30, Alanine Aminotransferase (ALT/SGPT) 30, Alkaline Phosphatase 89, Total Protein 7.3, Albumin 3.3 05/10/23 05:29: Glucometer 134H Microbiology 05/05/23 Blood Culture - Preliminary, Resulted No growth 05/05/23 Urine Culture - Final, Complete NO GROWTH Assessment/Plan Assessment/Plan Assess & Plan/Chief Complaint Shortness of breath Community aquired PNA Elevated BNP CKD stage 3 T2DM Hypertension BPH New onset paroxysmal atrial fibrillation found on telemetry strips Urinary retention requiring Finch catheter placement Plan: Ceftriaxone and azithromycin (day 4). Last dose of azithro today Continue hydralazine and carvedilol, blood pressure doing well, 135/[address] Gloria consult for PAF, appreciate recs Started on long acting diltiazem and apixaban Stop IV fluids with encouragement of PO intake Losartan and Lasix held due to elevated creatinine Finch catheter for urinary retention 850 of output so far today Levemir 25 units BID with mealtime aspart Talked with family about need for skilled placement following discharge DVT ppx- anticoagulated with apixaban Diet- regular Code- full GAYLE OWUSU DO May 10, 2023 07:15
[2023-05-10] MEDS: RT-ALBUTEROL SULF 2.5 MG/3 ML PRE-MIX VIAL INH SCH ×2 (07:30→21:13)
[2023-05-10 07:58] VITALS: BP 154/60
[2023-05-10] MEDS: FLUTICASONE NASAL SPRAY (FLONASE) 16 GM BTL NS SCH (08:27)
[2023-05-10] MEDS: PANTOPRAZOLE 40 MG (PROTONIX) TAB PO SCH (08:28)
[2023-05-10] MEDS: TAMSULOSIN 0.4 MG (FLOMAX) CAP PO SCH ×2 (08:29→20:14)
[2023-05-10] MEDS: ASPIRIN E.C. 81 MG (ECOTRIN) TAB PO SCH (08:29)
[2023-05-10] MEDS: CEFDINIR 300 MG (OMNICEF) CAP PO SCH ×2 (08:29→20:27)
[2023-05-10] MEDS: DOCUSATE SODIUM 100 MG (COLACE) CAP PO SCH ×2 (08:29→20:14)
[2023-05-10] MEDS: SENNOSIDES 8.6 MG (SENOKOT) TAB PO SCH ×2 (08:29→20:14)
[2023-05-10] MEDS: LORATADINE (CLARITIN) 10 MG TAB PO SCH (08:29)
[2023-05-10] MEDS: APIXABAN 2.5 MG (ELIQUIS) TABLET PO SCH ×2 (08:29→20:15)
[2023-05-10] MEDS: FINASTERIDE (PROSCAR) 5 MG TAB PO SCH (08:59)
--- NOTE | 2023-05-10 10:59 | Physical Therapy Progress Note ---
Therapy Progress Note Attempted to work with pt at 0916 but pt declined. Returned at 1050 and pt was asleep. Resume therapy on Friday. RODNEY GARSIA PT May 10, 2023 10:59
[2023-05-10 11:32] VITALS: BP 133/65
[2023-05-10] MEDS ORDERED: GLYCERIN ADULT SUPPOSITORY PR PRN (13:00)
[2023-05-10] MEDS ORDERED: GLYCERIN ADULT SUPPOSITORY PR ONE (13:00)
[2023-05-10 15:47] VITALS: BP 132/63
--- NOTE | 2023-05-10 16:15 | Progress Note - Cardiology ---
Cardiology SOAP Progress Note Subjective: He does not report any symptoms No cp or palp or syncope or shortness of breath Objective: I&O/Vital Signs 05/10/23 05/10/23 05/10/23 05/10/23 07:00 07:30 07:39 07:58 Temp 36.6 Pulse 73 78 Resp 18 B/P (MAP) 154/60 (91) Pulse Ox 96 98 O2 Delivery Nasal Cannula Room Air Room Air O2 Flow Rate 2.00 0.00 05/10/23 05/10/23 05/10/23 05/10/23 08:33 11:32 12:30 15:47 Temp 36.4 36.3 Pulse 77 82 70 Resp 18 18 B/P (MAP) 133/65 (87) 132/63 (86) Pulse Ox 94 92 93 O2 Delivery Room Air Room Air Room Air 05/10/23 00:00 Intake Total 1960 ml Output Total 950 ml Balance 1010 ml Weight (Pounds): 200 Weight (Calculated Kilograms): 90.114646 Constitutional: No AAO x 3; well-developed, well-nourished, other (mildly confused) Respiratory: No accessory muscle use; chest expansion is symmetric, chest is bilaterally symmetric, other (fair to good, bilateral air entry, diminished at the bases) Cardiovascular: regular rate-rhythm, S1 and S2, systolic murmur (soft WANDA at card base) Gastrointestional: No tender; soft; No guarding, No rebound; audible bowel sounds Extremities: No clubbing, No cyanosis, No significant edema Neurologic/Psychiatric: No oriented x 3; other (moves all limbs equally) Skin: normal color, warm/dry; No cyanosis, No cool, No diaphoresis, No rash, No ulcerations Results/Procedures: Labs Laboratory Tests 05/09/23 19:47: Glucometer 243H 05/10/23 05:18: White Blood Count 9.0, Red Blood Count 4.16L, Hemoglobin 12.1L, Hematocrit 38L, Mean Corpuscular Volume 92, Mean Corpuscular Hemoglobin 29, Mean Corpuscular Hemoglobin Concent 32, Red Cell Distribution Width 14.0, Platelet Count 247, Mean Platelet Volume 9.8, Immature Granulocyte % (Auto) 0, Neutrophils (%) (Auto) 67, Lymphocytes (%) (Auto) 19, Monocytes (%) (Auto) 11, Eosinophils (%) (Auto) 3, Basophils (%) (Auto) 0, Neutrophils # (Auto) 6.0, Lymphocytes # (Auto) 1.7, Monocytes # (Auto) 1.0, Eosinophils # (Auto) 0.3, Basophils # (Auto) 0.0, Immature Granulocyte # (Auto) 0.0, Sodium Level 139, Potassium Level 4.9, Chloride Level 109H, Carbon Dioxide Level 22, Anion Gap 8, Blood Urea Nitrogen 39H, Creatinine 1.96H, Estimat Glomerular Filtration Rate 33, BUN/Creatinine Ratio 20, Glucose Level 132H, Calcium Level 8.5, Corrected Calcium 9.1, Total Bilirubin 0.4, Aspartate Amino Transf (AST/SGOT) 30, Alanine Aminotransferase (ALT/SGPT) 30, Alkaline Phosphatase 89, Total Protein 7.3, Albumin 3.3 05/10/23 05:29: Glucometer 134H 05/10/23 09:14: Glucometer 189H 05/10/23 14:22: Glucometer 153H Microbiology 05/05/23 Blood Culture - Preliminary, Resulted No growth 05/05/23 Urine Culture - Final, Complete NO GROWTH Laboratory Tests 05/09/23 05:08 05/10/23 05:18 A/P: Assessment: Pneumonia Obesity with obesity-hypoventilation PAF with RVR (seen on tele during this hosp) CAD - Cardiac cath of 11-10-[address] Kaur showed calcified coronary system with mild diffuse ectasia and slow flow diffusely d/t small vessel dz. 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 CCDS May 10, 2023 16:15
[2023-05-10] MEDS: polyethylene glycoL POWDER 17 GM (MIRALAX) PACK PO PRN (17:57)
[2023-05-10 19:23] VITALS: BP 147/65
[2023-05-10] MEDS: ACETAMINOPHEN 325 MG TABLET PO PRN (20:14)
[2023-05-10] MEDS: MELATONIN 3 MG TABLET PO PRN (20:14)
[2023-05-10 23:40] VITALS: BP 144/65
[2023-05-11] VITALS (7 sets, daily range): BP systolic 117–157; BP diastolic 57–82
[2023-05-11] MEDS: hydrALAZINE (APRESOLINE) 25 MG TAB PO SCH ×2 (03:52→16:11)
[2023-05-11] MEDS: ISOSORBIDE MONONITRATE 60 MG (IMDUR) TAB PO SCH (05:12)
[2023-05-11 05:26] LABS: BASOPHILS % (AUTO) 1 % (0-10); EOSINOPHILS # (AUTO) 0.2 10^3/uL (0.0-0.3); EOSINOPHILS % (AUTO) 2 % (0-10); HEMATOCRIT 39 % (40-54); HEMOGLOBIN 12.3 g/dL (13.3-17.7); LYMPHOCYTES # (AUTO) 1.5 10^3/uL (1.0-4.0); LYMPHOCYTES % (AUTO) 18 % (12-44); MEAN CORPUSCULAR HEMOGLOBIN 29 pg (25-34); MEAN CORPUSCULAR HGB CONC 32 g/dL (32-36); MEAN CORPUSCULAR VOLUME 92 fL (80-99); MEAN PLATELET VOLUME 9.8 fL (9.0-12.2); MONOCYTES # (AUTO) 0.9 10^3/uL (0.0-1.0); MONOCYTES % (AUTO) 11 % (0-12); NEUTROPHILS # (AUTO) 5.6 10^3/uL (1.8-7.8); NEUTROPHILS % (AUTO) 68 % (42-75); PLATELET COUNT 257 10^3/uL (130-400); WHITE BLOOD COUNT 8.3 10^3/uL (4.3-11.0)
[2023-05-11 05:45] LABS: ALBUMIN 3.3 GM/DL (3.2-4.5); BILIRUBIN,TOTAL 0.7 MG/DL (0.1-1.0); CALCIUM 8.6 MG/DL (8.5-10.1); CREATININE SERUM 1.82 MG/DL (0.60-1.30); POTASSIUM 4.5 MMOL/L (3.6-5.0); TOTAL PROTEIN 7.1 GM/DL (6.4-8.2)
[2023-05-11] MEDS: inSUlin ASPART (NovoLOG) 1 UNIT/0.01 ML (CHARGE PER UNIT) SC SCH ×4 (06:58→19:52)
--- NOTE | 2023-05-11 07:00 | Progress Note ---
Subjective Date Seen by a Provider: May 11, 2023 Time Seen by a Provider: 11:00 Subjective/Events-last exam Much improved BM+ after multiple meds Creat improved No falls Review of Systems General: Fatigue, Malaise Objective Exam Last Set of Vital Signs Vital Signs Date Time Temp Pulse Resp B/P (MAP) Pulse Ox O2 Delivery O2 Flow Rate FiO2 05/11/23 03:04 36.1 75 16 138/67 (90) 95 Room Air 0.00 0.00 Capillary Refill : I&O Intake and Output 05/11/23 00:00 Intake Total 1600 ml Output Total 1375 ml Balance 225 ml Intake Oral 1600 ml Output Urine Total 1375 ml General: Alert, Oriented X3, Cooperative, No Acute Distress Lungs: Clear to Auscultation, Normal Air Movement Heart: Regular Rate, Normal S1, Normal S2, No Murmurs Psych/Mental Status: Mental Status NL, Mood NL Results Lab Laboratory Tests 05/10/23 09:14: Glucometer 189H 05/10/23 14:22: Glucometer 153H 05/10/23 19:30: Glucometer 184H 05/11/23 05:04: White Blood Count 8.3, Red Blood Count 4.24L, Hemoglobin 12.3L, Hematocrit 39L, Mean Corpuscular Volume 92, Mean Corpuscular Hemoglobin 29, Mean Corpuscular Hemoglobin Concent 32, Red Cell Distribution Width 14.1, Platelet Count 257, Mean Platelet Volume 9.8, Immature Granulocyte % (Auto) 0, Neutrophils (%) (Auto) 68, Lymphocytes (%) (Auto) 18, Monocytes (%) (Auto) 11, Eosinophils (%) (Auto) 2, Basophils (%) (Auto) 1, Neutrophils # (Auto) 5.6, Lymphocytes # (Auto) 1.5, Monocytes # (Auto) 0.9, Eosinophils # (Auto) 0.2, Basophils # (Auto) 0.0, Immature Granulocyte # (Auto) 0.0, Sodium Level 139, Potassium Level 4.5, Chloride Level 109H, Carbon Dioxide Level 22, Anion Gap 8, Blood Urea Nitrogen 32H, Creatinine 1.82H, Estimat Glomerular Filtration Rate 36, BUN/Creatinine Ratio 18, Glucose Level 173H, Calcium Level 8.6, Corrected Calcium 9.2, Total Bilirubin 0.7, Aspartate Amino Transf (AST/SGOT) 28, Alanine Aminotransferase (ALT/SGPT) 31, Alkaline Phosphatase 87, Total Protein 7.1, Albumin 3.3 05/11/23 05:12: Glucometer 200H Microbiology 05/05/23 Blood Culture - Preliminary, Resulted No growth 05/05/23 Urine Culture - Final, Complete NO GROWTH Assessment/Plan Assessment/Plan Assess & Plan/Chief Complaint Shortness of breath Community aquired PNA Elevated BNP CKD stage 3 T2DM Hypertension BPH New onset paroxysmal atrial fibrillation found on telemetry strips Urinary retention requiring Finch catheter placement Plan: Ceftriaxone and azithromycin (day 4). Last dose of azithro today Continue hydralazine and carvedilol, blood pressure doing well, 135/[address] Gloria consult for PAF, appreciate recs Started on long acting diltiazem and apixaban Stop IV fluids with encouragement of PO intake Losartan and Lasix held due to elevated creatinine Finch catheter for urinary retention 850 of output so far today Levemir 25 units BID with mealtime aspart Talked with family about need for skilled placement following discharge DVT ppx- anticoagulated with apixaban Diet- regular Code- full GAYLE OWUSU DO May 11, 2023 07:00
[2023-05-11] MEDS: RT-ALBUTEROL SULF 2.5 MG/3 ML PRE-MIX VIAL INH SCH ×2 (08:10→19:45)
[2023-05-11] MEDS: CEFDINIR 300 MG (OMNICEF) CAP PO SCH ×2 (08:32→22:06)
[2023-05-11] MEDS: TAMSULOSIN 0.4 MG (FLOMAX) CAP PO SCH ×2 (08:32→22:07)
[2023-05-11] MEDS: LORATADINE (CLARITIN) 10 MG TAB PO SCH (08:32)
[2023-05-11] MEDS: APIXABAN 2.5 MG (ELIQUIS) TABLET PO SCH ×2 (08:32→22:06)
[2023-05-11] MEDS: SENNOSIDES 8.6 MG (SENOKOT) TAB PO SCH ×2 (08:32→22:06)
[2023-05-11] MEDS: DOCUSATE SODIUM 100 MG (COLACE) CAP PO SCH ×2 (08:32→22:06)
[2023-05-11] MEDS: ASPIRIN E.C. 81 MG (ECOTRIN) TAB PO SCH (08:32)
[2023-05-11] MEDS: PANTOPRAZOLE 40 MG (PROTONIX) TAB PO SCH (08:33)
[2023-05-11] MEDS: FLUTICASONE NASAL SPRAY (FLONASE) 16 GM BTL NS SCH (08:35)
[2023-05-11] MEDS: FINASTERIDE (PROSCAR) 5 MG TAB PO SCH (08:42)
[2023-05-11] MEDS: ACETAMINOPHEN 325 MG TABLET PO PRN ×3 (08:45→22:06)
--- NOTE | 2023-05-11 14:50 | Progress Note - Cardiology ---
Cardiology SOAP Progress Note Subjective: More alert, less confused today No cp or palp or syncope No shortness of breath at rest No n/v/d Gen weakness No focal weakness Objective: I&O/Vital Signs 05/11/23 05/11/23 05/11/23 05/11/23 03:04 07:00 08:14 08:33 Temp 36.1 36.9 Pulse 75 83 81 Resp 16 20 B/P (MAP) 138/67 (90) 157/82 (107) Pulse Ox 95 91 90 O2 Delivery Room Air Nasal Cannula Room Air O2 Flow Rate 0.00 0.00 0.00 05/11/23 05/11/23 05/11/23 05/11/23 09:31 11:23 12:41 13:45 Temp 36.6 36.6 Pulse 72 68 68 Resp 20 B/P (MAP) 117/63 (81) Pulse Ox 94 91 91 O2 Delivery Room Air Room Air 05/11/23 00:00 Intake Total 1350 ml Output Total 850 ml Balance 500 ml Weight (Pounds): 200 Weight (Calculated Kilograms): 90.371842 Constitutional: AAO x 3, well-developed, well-nourished Respiratory: No accessory muscle use; chest expansion is symmetric, chest is bilaterally symmetric, other (fair to good, bilateral air entry, diminished at the bases) Cardiovascular: regular rate-rhythm, S1 and S2, systolic murmur (soft WANDA at card base) Gastrointestional: No tender; soft; No guarding, No rebound; audible bowel sounds Extremities: No clubbing, No cyanosis, No significant edema Neurologic/Psychiatric: No oriented x 3; other (moves all limbs equally) Skin: normal color, warm/dry; No cyanosis, No cool, No diaphoresis, No rash, No ulcerations Results/Procedures: Labs Laboratory Tests 05/10/23 19:30: Glucometer 184H 05/11/23 05:04: White Blood Count 8.3, Red Blood Count 4.24L, Hemoglobin 12.3L, Hematocrit 39L, Mean Corpuscular Volume 92, Mean Corpuscular Hemoglobin 29, Mean Corpuscular Hemoglobin Concent 32, Red Cell Distribution Width 14.1, Platelet Count 257, Mean Platelet Volume 9.8, Immature Granulocyte % (Auto) 0, Neutrophils (%) (Auto) 68, Lymphocytes (%) (Auto) 18, Monocytes (%) (Auto) 11, Eosinophils (%) (Auto) 2, Basophils (%) (Auto) 1, Neutrophils # (Auto) 5.6, Lymphocytes # (Auto) 1.5, Monocytes # (Auto) 0.9, Eosinophils # (Auto) 0.2, Basophils # (Auto) 0.0, Immature Granulocyte # (Auto) 0.0, Sodium Level 139, Potassium Level 4.5, Chloride Level 109H, Carbon Dioxide Level 22, Anion Gap 8, Blood Urea Nitrogen 32H, Creatinine 1.82H, Estimat Glomerular Filtration Rate 36, BUN/Creatinine Ra danay 18, Glucose Level 173H, Calcium Level 8.6, Corrected Calcium 9.2, Total García irubin 0.7, Aspartate Amino Transf (AST/SGOT) 28, Alanine Aminotransferase (ALT/SGPT) 31, Alkaline Phosphatase 87, Total Protein 7.1, Albumin 3.3 05/11/23 05:12: Glucometer 200H 05/11/23 09:25: Glucometer 175H 05/11/23 14:17: Glucometer 208H Microbiology 05/05/23 Blood Culture - Final, Complete No growth 05/05/23 Urine Culture - Final, Complete NO GROWTH Laboratory Tests 05/10/23 05:18 05/11/23 05:04 A/P: Assessment: Pneumonia Obesity with obesity-hypoventilation PAF with RVR (seen on tele during this hosp) CAD - Cardiac cath of 11-10-[address] Kaur showed calcified coronary system with mild diffuse ectasia and slow flow diffusely d/t small vessel dz. 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
[2023-05-11] MEDS ORDERED: MONTELUKAST 10 MG (SINGULAIR) TAB PO SCH (21:00)
[2023-05-12 03:12] VITALS: BP 148/67
[2023-05-12] MEDS: hydrALAZINE (APRESOLINE) 25 MG TAB PO SCH ×2 (03:37)
[2023-05-12 05:05] LABS: BASOPHILS % (AUTO) 1 % (0-10); EOSINOPHILS # (AUTO) 0.2 10^3/uL (0.0-0.3); EOSINOPHILS % (AUTO) 3 % (0-10); HEMATOCRIT 35 % (40-54); HEMOGLOBIN 11.1 g/dL (13.3-17.7); LYMPHOCYTES # (AUTO) 1.8 10^3/uL (1.0-4.0); LYMPHOCYTES % (AUTO) 25 % (12-44); MEAN CORPUSCULAR HEMOGLOBIN 30 pg (25-34); MEAN CORPUSCULAR HGB CONC 32 g/dL (32-36); MEAN CORPUSCULAR VOLUME 92 fL (80-99); MEAN PLATELET VOLUME 10.1 fL (9.0-12.2); MONOCYTES # (AUTO) 0.9 10^3/uL (0.0-1.0); MONOCYTES % (AUTO) 13 % (0-12); NEUTROPHILS # (AUTO) 4.3 10^3/uL (1.8-7.8); NEUTROPHILS % (AUTO) 59 % (42-75); PLATELET COUNT 280 10^3/uL (130-400); WHITE BLOOD COUNT 7.3 10^3/uL (4.3-11.0)
[2023-05-12 05:33] LABS: BILIRUBIN,TOTAL 0.5 MG/DL (0.1-1.0); CALCIUM 8.4 MG/DL (8.5-10.1); CREATININE SERUM 1.74 MG/DL (0.60-1.30); POTASSIUM 4.4 MMOL/L (3.6-5.0); TOTAL PROTEIN 6.4 GM/DL (6.4-8.2)
[2023-05-12] MEDS: ISOSORBIDE MONONITRATE 60 MG (IMDUR) TAB PO SCH (05:47)
[2023-05-12] MEDS: inSUlin ASPART (NovoLOG) 1 UNIT/0.01 ML (CHARGE PER UNIT) SC SCH ×3 (05:47→14:38)
[2023-05-12 07:22] VITALS: BP 163/75
[2023-05-12] MEDS: SENNOSIDES 8.6 MG (SENOKOT) TAB PO SCH (08:06)
[2023-05-12] MEDS: LORATADINE (CLARITIN) 10 MG TAB PO SCH (08:06)
[2023-05-12] MEDS: APIXABAN 2.5 MG (ELIQUIS) TABLET PO SCH (08:06)
[2023-05-12] MEDS: DOCUSATE SODIUM 100 MG (COLACE) CAP PO SCH (08:06)
[2023-05-12] MEDS: ASPIRIN E.C. 81 MG (ECOTRIN) TAB PO SCH (08:06)
[2023-05-12] MEDS: CEFDINIR 300 MG (OMNICEF) CAP PO SCH (08:06)
[2023-05-12] MEDS: TAMSULOSIN 0.4 MG (FLOMAX) CAP PO SCH (08:06)
[2023-05-12] MEDS: PANTOPRAZOLE 40 MG (PROTONIX) TAB PO SCH (08:06)
[2023-05-12] MEDS: FLUTICASONE NASAL SPRAY (FLONASE) 16 GM BTL NS SCH (08:07)
[2023-05-12] MEDS: FINASTERIDE (PROSCAR) 5 MG TAB PO SCH (08:10)
--- NOTE | 2023-05-12 09:04 | Progress Note ---
Subjective Date Seen by a Provider: May 12, 2023 Objective Exam Last Set of Vital Signs Vital Signs Date Time Temp Pulse Resp B/P (MAP) Pulse Ox O2 Delivery O2 Flow Rate FiO2 05/12/23 07:22 36.3 80 20 163/75 (104) 96 Room Air 05/12/23 03:12 3.00 Capillary Refill : I&O Intake and Output 05/12/23 00:00 Intake Total 1430 ml Output Total 1100 ml Balance 330 ml Intake Oral 1430 ml Output Urine Total 1100 ml # Bowel Movements 1 Results Lab Laboratory Tests 05/11/23 09:25: Glucometer 175H 05/11/23 14:17: Glucometer 208H 05/11/23 17:38: Glucometer 88 05/11/23 19:42: Glucometer 124H 05/12/23 04:44: White Blood Count 7.3, Red Blood Count 3.75L, Hemoglobin 11.1L, Hematocrit 35L, Mean Corpuscular Volume 92, Mean Corpuscular Hemoglobin 30, Mean Corpuscular Hemoglobin Concent 32, Red Cell Distribution Width 14.1, Platelet Count 280, Mean Platelet Volume 10.1, Immature Granulocyte % (Auto) 0, Neutrophils (%) (Auto) 59, Lymphocytes (%) (Auto) 25, Monocytes (%) (Auto) 13H, Eosinophils (%) (Auto) 3, Basophils (%) (Auto) 1, Neutrophils # (Auto) 4.3, Lymphocytes # (Auto) 1.8, Monocytes # (Auto) 0.9, Eosinophils # (Auto) 0.2, Basophils # (Auto) 0.0, Immature Granulocyte # (Auto) 0.0, Sodium Level 138, Potassium Level 4.4, Chloride Level 108H, Carbon Dioxide Level 23, Anion Gap 7, Blood Urea Nitrogen 30H, Creatinine 1.74H, Estimat Glomerular Filtration Rate 38, BUN/Creatinine Ratio 17, Glucose Level 192H, Calcium Level 8.4L, Corrected Calcium 9.2, Total Bilirubin 0.5, Aspartate Amino Transf (AST/SGOT) 26, Alanine Aminotransferase (ALT/SGPT) 27, Alkaline Phosphatase 82, Total Protein 6.4, Albumin 3.0L 05/12/23 05:01: Glucometer 193H 05/12/23 08:57: Glucometer 271H Microbiology 05/05/23 Blood Culture - Final, Complete No growth 05/05/23 Urine Culture - Final, Complete NO GROWTH Assessment/Plan Assessment/Plan Assess & Plan/Chief Complaint Shortness of breath Community aquired PNA Elevated BNP CKD stage 3 T2DM Hypertension BPH New onset paroxysmal atrial fibrillation found on telemetry strips Urinary retention requiring Finch catheter placement Plan: Ceftriaxone and azithromycin (day 4). Last dose of azithro today Continue hydralazine and carvedilol, blood pressure doing well, 135/[address] Gloria consult for PAF, appreciate recs Started on long acting diltiazem and apixaban Stop IV fluids with encouragement of PO intake Losartan and Lasix held due to elevated creatinine Finch catheter for urinary retention 850 of output so far today Levemir 25 units BID with mealtime aspart Talked with family about need for skilled placement following discharge DVT ppx- anticoagulated with apixaban Diet- regular Code- full GAYLE OWUSU DO May 12, 2023 09:04
--- NOTE | 2023-05-12 10:33 | Progress Note - Cardiology ---
Cardiology SOAP Progress Note Objective: I&O/Vital Signs 05/11/23 05/12/23 05/12/23 05/12/23 23:31 01:00 03:12 07:00 Temp 36.6 36.3 Pulse 74 88 67 64 Resp 18 18 B/P (MAP) 137/63 (87) 148/67 (94) Pulse Ox 96 96 O2 Delivery Room Air Nasal Cannula O2 Flow Rate 0.00 3.00 0.00 05/12/23 07:22 Temp 36.3 Pulse 80 Resp 20 B/P (MAP) 163/75 (104) Pulse Ox 96 O2 Delivery Room Air 05/12/23 00:00 Intake Total 1130 ml Output Total 700 ml Balance 430 ml Weight (Pounds): 200 Weight (Calculated Kilograms): 90.019128 Constitutional: AAO x 3, well-developed, well-nourished Respiratory: No accessory muscle use; chest expansion is symmetric, chest is bilaterally symmetric, other (fair to good, bilateral air entry, diminished at the bases) Cardiovascular: regular rate-rhythm, S1 and S2, systolic murmur (soft WANDA at card base) Gastrointestional: No tender; soft; No guarding, No rebound; audible bowel sounds Extremities: No clubbing, No cyanosis, No significant edema Neurologic/Psychiatric: No oriented x 3; other (moves all limbs equally) Skin: normal color, warm/dry; No cyanosis, No cool, No diaphoresis, No rash, No ulcerations Results/Procedures: Labs Laboratory Tests 05/11/23 14:17: Glucometer 208H 05/11/23 17:38: Glucometer 88 05/11/23 19:42: Glucometer 124H 05/12/23 04:44: White Blood Count 7.3, Red Blood Count 3.75L, Hemoglobin 11.1L, Hematocrit 35L, Mean Corpuscular Volume 92, Mean Corpuscular Hemoglobin 30, Mean Corpuscular Hemoglobin Concent 32, Red Cell Distribution Width 14.1, Platelet Count 280, Mean Platelet Volume 10.1, Immature Granulocyte % (Auto) 0, Neutrophils (%) (Auto) 59, Lymphocytes (%) (Auto) 25, Monocytes (%) (Auto) 13H, Eosinophils (%) (Auto) 3, Basophils (%) (Auto) 1, Neutrophils # (Auto) 4.3, Lymphocytes # (Auto) 1.8, Monocytes # (Auto) 0.9, Eosinophils # (Auto) 0.2, Basophils # (Auto) 0.0, Immature Granulocyte # (Auto) 0.0, Sodium Level 138, Potassium Level 4.4, Chloride Level 108H, Carbon Dioxide Level 23, Anion Gap 7, Blood Urea Nitrogen 30H, Creatinine 1.74H, Estimat Glomerular Filtration Rate 38, BUN/Creatinine Ratio 17, Glucose Level 192H, Calcium Level 8.4L, Corrected Calcium 9.2, Total Bilirubin 0.5, Aspartate Amino Transf (AST/SGOT) 26, Alanine Aminotransferase (ALT/SGPT) 27, Alkaline Phosphatase 82, Total Protein 6.4, Albumin 3.0L 05/12/23 05:01: Glucometer 193H 05/12/23 08:57: Glucometer 271H Microbiology 05/05/23 Blood Culture - Final, Complete No growth 05/05/23 Urine Culture - Final, Complete NO GROWTH Laboratory Tests 05/11/23 05:04 05/12/23 04:44 A/P: Assessment: Pneumonia Obesity with obesity-hypoventilation PAF with RVR (seen on tele during this hosp) CAD - Cardiac cath of 11-10-[address] Kaur showed calcified coronary system with mild diffuse ectasia and slow flow diffusely d/t small vessel dz. 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
[2023-05-12] MEDS ORDERED: OMEP40CA6 PO (10:39)
[2023-05-12] MEDS ORDERED: VIT1CAPS44 PO (10:39)
[2023-05-12] MEDS ORDERED: TMSL.4C PO (10:39)
[2023-05-12] MEDS ORDERED: ASPI-1238 PO (10:39)
[2023-05-12] MEDS ORDERED: TRZ50T PO (10:39)
[2023-05-12] MEDS ORDERED: APIX2.5T PO (10:39)
[2023-05-12] MEDS ORDERED: MONT-40 PO (10:39)
[2023-05-12] MEDS ORDERED: ACET325T49 PO (10:39)
[2023-05-12] MEDS ORDERED: DOCU100C37 PO (10:39)
[2023-05-12] MEDS ORDERED: DILT180C85 PO (10:39)
[2023-05-12] MEDS ORDERED: INSU100I48 SC (10:39)
[2023-05-12] MEDS ORDERED: FLUT16SP22 NS (10:39)
[2023-05-12] MEDS ORDERED: CARV25TA PO (10:39)
[2023-05-12] MEDS ORDERED: FURO40TA4 PO (10:39)
[2023-05-12] MEDS ORDERED: INSU100I88 SQ (10:39)
[2023-05-12] MEDS ORDERED: FINA5TAB6 PO (10:39)
[2023-05-12] MEDS ORDERED: ISOS60TA63 PO (10:39)
[2023-05-12] MEDS ORDERED: HYDR-3924 PO (10:39)
[2023-05-12] MEDS ORDERED: CETI10TA17 PO (10:39)
[2023-05-12] MEDS ORDERED: SENN-117 PO (10:39)
--- NOTE | 2023-05-12 10:40 | Discharge Summary ---
Diagnosis/Chief Complaint Date of Admission May 07, 2023 at 12:35 Date of Discharge Discharge Date: May 12, 2023 Discharge Diagnosis Shortness of breath Community aquired PNA Elevated BNP CKD stage 3 T2DM Hypertension BPH New onset paroxysmal atrial fibrillation found on telemetry strips Urinary retention requiring Finch catheter placement Plan: Ceftriaxone and azithromycin (day 4). Last dose of azithro today Continue hydralazine and carvedilol, blood pressure doing well, 135/[address] Gloria consult for PAF, appreciate recs Started on long acting diltiazem and apixaban Stop IV fluids with encouragement of PO intake Losartan and Lasix held due to elevated creatinine Finch catheter for urinary retention 850 of output so far today Levemir 25 units BID with mealtime aspart Talked with family about need for skilled placement following discharge DVT ppx- anticoagulated with apixaban Diet- regular Code- full Discharge Summary Discharge Physical Examination Allergies: Coded Allergies: Sulfa (Sulfonamide Antibiotics) (Unverified Allergy, Unknown, 10/10/19) Vitals & I&Os Vital Signs Date Time Temp Pulse Resp B/P (MAP) Pulse Ox O2 Delivery O2 Flow Rate FiO2 05/12/23 14:42 05/12/23 12:37 68 05/12/23 11:09 36.4 20 95 Nasal Cannula 2.00 General Appearance: Alert, Oriented X3, Cooperative Respiratory: Clear to Auscultation Cardiovascular: Regular Rate Psych/Mental Status: Mental Status NL Hospital Course Was the Problem List Reviewed?: Yes Hospital course: Patient had a lengthy hospital course after he was admitted for pneumonia and overall severe debility with hypoxia and urinary retention with acute kidney injury on chronic kidney disease. Patient completed IV antibiotics. Finch catheter was required due to retention and will remain until he is settled then at the care home. Overall he returned back to his chronic kidney disease baseline creatinine and hemoglobin remained stable and hypoxia requiring oxygen at time of discharge and he will have close follow-up on my care home rounds list. Labs (last 24 hrs) Laboratory Tests 05/05/23 13:50: White Blood Count 11.1H, Red Blood Count 4.70, Hemoglobin 13.6, Hematocrit 43, Mean Corpuscular Volume 92, Mean Corpuscular Hemoglobin 29, Mean Corpuscular Hemoglobin Concent 32, Red Cell Distribution Width 13.8, Platelet Count 294, Mean Platelet Volume 9.9, Immature Granulocyte % (Auto) 0, Neutrophils (%) (Auto) 80H, Lymphocytes (%) (Auto) 11L, Monocytes (%) (Auto) 8, Eosinophils (%) (Auto) 0, Basophils (%) (Auto) 0, Neutrophils # (Auto) 8.9H, Lymphocytes # (Auto) 1.2, Monocytes # (Auto) 0.9, Eosinophils # (Auto) 0.0, Basophils # (Auto) 0.0, Immature Granulocyte # (Auto) 0.0, Prothrombin Time 13.0, INR Comment 1.0, Activated Partial Thromboplast Time 36H, D-Dimer 3.56H, Sodium Level 138, Potassium Level 4.8, Chloride Level 105, Carbon Dioxide Level 23, Anion Gap 10, Blood Urea Nitrogen 17, Creatinine 1.68H, Estimat Glomerular Filtration Rate 40, BUN/Creatinine Ratio 10, Glucose Level 184H, Calcium Level 8.8, Corrected Calcium 9.0, Magnesium Level 1.9, Total Bilirubin 0.9, Aspartate Amino Transf (AST/SGOT) 27, Alanine Aminotransferase (ALT/SGPT) 33, Alkaline Phosphatase 108, Myoglobin 331.8H, Troponin I < 0.028, B-Type Natriuretic Peptide 382.4H, Total Protein 7.9, Albumin 3.7, SARS-CoV-2 RNA (RT-PCR) Not Detected 05/05/23 16:00: Urine Color YELLOW, Urine Clarity SL CLOUDY, Urine pH 7.0, Urine Specific [place] 1.015L, Urine Protein 3+H, Urine Glucose (UA) NEGATIVE, Urine Ketones NEGATIVE, Urine Nitrite NEGATIVE, Urine Bilirubin NEGATIVE, Urine Urobilinogen 0.2, Urine Leukocyte Esterase NEGATIVE, Urine RBC (Auto) NEGATIVE, Urine RBC RARE, Urine WBC RARE, Urine Crystals NONE, Urine Bacteria NEGATIVE, Urine Casts NONE, Urine Mucus NEGATIVE, Urine Culture Indicated NO 05/05/23 16:17: Blood Gas Puncture Site RR, Blood Gas Patient Temperature 37.7, Arterial Blood pH 7.33*L, Arterial Blood Partial Pressure CO2 53H, Arterial Blood Partial Pressure O2 84, Arterial Blood HCO3 27, Arterial Blood Total CO2 28.6, Arterial Blood Oxygen Saturation 97, Arterial Blood Base Excess 1.9, [place] Test YES-POS, Blood Gas Ventilator Setting NO, Blood Gas Inspired Oxygen 2L 05/05/23 16:25: Lactic Acid Level 0.77 05/06/23 05:52: White Blood Count 12.1H, Red Blood Count 4.39, Hemoglobin 12.7L, Hematocrit 40, Mean Corpuscular Volume 91, Mean Corpuscular Hemoglobin 29, Mean Corpuscular Hemoglobin Concent 32, Red Cell Distribution Width 13.6, Platelet Count 253, Mean Platelet Volume 10.1, Immature Granulocyte % (Auto) 0, Neutrophils (%) (Auto) 76H, Lymphocytes (%) (Auto) 12, Monocytes (%) (Auto) 11, Eosinophils (%) (Auto) 0, Basophils (%) (Auto) 0, Neutrophils # (Auto) 9.2H, Lymphocytes # (Auto) 1.4, Monocytes # (Auto) 1.4H, Eosinophils # (Auto) 0.0, Basophils # (Auto) 0.0, Immature Granulocyte # (Auto) 0.1, Sodium Level 136, Potassium Level 4.4, Chloride Level 104, Carbon Dioxide Level 22, Anion Gap 10, Blood Urea Nitrogen 21H, Creatinine 1.69H, Estimat Glomerular Filtration Rate 40, BUN/Creatinine Ratio 12, Glucose Level 163H, Calcium Level 8.6, Corrected Calcium 9.1, Total Bilirubin 0.8, Aspartate Amino Transf (AST/SGOT) 30, Alanine Aminotransferase (ALT/SGPT) 28, Alkaline Phosphatase 87, Total Protein 7.3, Albumin 3.4, Triglycerides Level 60, Cholesterol Level 121, LDL Cholesterol Direct 78, VLDL Cholesterol 12, HDL Cholesterol 36L 05/06/23 09:03: Glucometer 205H 05/06/23 10:15: Glucometer 243H 05/06/23 15:14: Glucometer 143H 05/06/23 21:19: Glucometer 221H 05/07/23 01:08: Glucometer 133H 05/07/23 05:17: White Blood Count 7.5, Red Blood Count 3.93L, Hemoglobin 11.5L, Hematocrit 37L, Mean Corpuscular Volume 93, Mean Corpuscular Hemoglobin 29, Mean Corpuscular Hemoglobin Concent 31L, Red Cell Distribution Width 13.9, Platelet Count 208, Mean Platelet Volume 10.2, Immature Granulocyte % (Auto) 0, Neutrophils (%) ( Auto) 56, Lymphocytes (%) (Auto) 27, Monocytes (%) (Auto) 14H, Eosinophils (%) (Auto) 2, Basophils (%) (Auto) 0, Neutrophils # (Auto) 4.2, Lymphocytes # (Auto) 2.0, Monocytes # (Auto) 1.1H, Eosinophils # (Auto) 0.2, Basophils # (Auto) 0.0, Immature Granulocyte # (Auto) 0.0, Sodium Level 139, Potassium Level 4.4, Chloride Level 106, Carbon Dioxide Level 24, Anion Gap 9, Blood Urea Nitrogen 32H, Creatinine 2.41H, Estimat Glomerular Filtration Rate 26, BUN/Creatinine Ratio 13, Glucose Level 79, Calcium Level 8.2L, Corrected Calcium 9.0, Total Bilirubin 0.5, Aspartate Amino Transf (AST/SGOT) 31, Alanine Aminotransferase (ALT/SGPT) 20, Alkaline Phosphatase 68, Total Protein 6.5, Albumin 3.0L 05/07/23 10:25: Glucometer 171H 05/07/23 14:43: Glucometer 196H 05/07/23 20:21: Glucometer 186H 05/07/23 23:31: Glucometer 156H 05/08/23 02:58: Glucometer 133H 05/08/23 05:11: White Blood Count 9.2, Red Blood Count 3.90L, Hemoglobin 11.4L, Hematocrit 36L, Mean Corpuscular Volume 93, Mean Corpuscular Hemoglobin 29, Mean Corpuscular Hemoglobin Concent 32, Red Cell Distribution Width 13.8, Platelet Count 234, Mean Platelet Volume 10.1, Immature Granulocyte % (Auto) 0, Neutrophils (%) (Auto) 62, Lymphocytes (%) (Auto) 22, Monocytes (%) (Auto) 12, Eosinophils (%) (Auto) 3, Basophils (%) (Auto) 0, Neutrophils # (Auto) 5.7, Lymphocytes # (Auto) 2.0, Monocytes # (Auto) 1.1H, Eosinophils # (Auto) 0.3, Basophils # (Auto) 0.0, Immature Granulocyte # (Auto) 0.0, Sodium Level 136, Potassium Level 4.2, Chloride Level 106, Carbon Dioxide Level 22, Anion Gap 8, Blood Urea Nitrogen 44H, Creatinine 2.39H, Estimat Glomerular Filtration Rate 26, BUN/Creatinine Ratio 18, Glucose Level 121H, Calcium Level 8.0L, Corrected Calcium 8.7, Total Bilirubin 0.3, Aspartate Amino Transf (AST/SGOT) 27, Alanine Aminotransferase (ALT/SGPT) 18, Alkaline Phosphatase 80, Total Protein 6.6, Albumin 3.1L 05/08/23 09:36: Glucometer 190H 05/08/23 14:35: Glucometer 164H 05/08/23 18:10: Glucometer 194H 05/08/23 20:57: Glucometer 227H 05/08/23 23:46: Glucometer 177H 05/09/23 03:02: Glucometer 114H 05/09/23 05:08: White Blood Count 8.2, Red Blood Count 3.84L, Hemoglobin 11.3L, Hematocrit 36L, Mean Corpuscular Volume 92, Mean Corpuscular Hemoglobin 29, Mean Corpuscular Hemoglobin Concent 32, Red Cell Distribution Width 13.7, Platelet Count 246, Mean Platelet Volume 10.0, Immature Granulocyte % (Auto) 0, Neutrophils (%) (Auto) 65, Lymphocytes (%) (Auto) 20, Monocytes (%) (Auto) 11, Eosinophils (%) (Auto) 3, Basophils (%) (Auto) 0, Neutrophils # (Auto) 5.3, Lymphocytes # (Auto) 1.6, Monocytes # (Auto) 0.9, Eosinophils # (Auto) 0.3, Basophils # (Auto) 0.0, Immature Granulocyte # (Auto) 0.0, Sodium Level 137, Potassium Level 4.2, Chloride Level 108H, Carbon Dioxide Level 20L, Anion Gap 9, Blood Urea Nitrogen 43H, Creatinine 2.29H, Estimat Glomerular Filtration Rate 27, BUN/Creatinine Ratio 19, Glucose Level 131H, Calcium Level 8.0L, Corrected Calcium 8.8, Total Bilirubin 0.4, Aspartate Amino Transf (AST/SGOT) 27, Alanine Aminotransferase (ALT/SGPT) 23, Alkaline Phosphatase 78, Total Protein 6.4, Albumin 3.0L 05/09/23 08:42: Glucometer 207H 05/09/23 12:21: Glucometer 122H 05/09/23 13:59: Glucometer 171H 05/09/23 19:47: Glucometer 243H 05/10/23 05:18: White Blood Count 9.0, Red Blood Count 4.16L, Hemoglobin 12.1L, Hematocrit 38L, Mean Corpuscular Volume 92, Mean Corpuscular Hemoglobin 29, Mean Corpuscular Hemoglobin Concent 32, Red Cell Distribution Width 14.0, Platelet Count 247, Mean Platelet Volume 9.8, Immature Granulocyte % (Auto) 0, Neutrophils (%) (Auto) 67, Lymphocytes (%) (Auto) 19, Monocytes (%) (Auto) 11, Eosinophils (%) (Auto) 3, Basophils (%) (Auto) 0, Neutrophils # (Auto) 6.0, Lymphocytes # (Auto) 1.7, Monocytes # (Auto) 1.0, Eosinophils # (Auto) 0.3, Basophils # (Auto) 0.0, Immature Granulocyte # (Auto) 0.0, Sodium Level 139, Potassium Level 4.9, Chloride Level 109H, Carbon Dioxide Level 22, Anion Gap 8, Blood Urea Nitrogen 39H, Creatinine 1.96H, Estimat Glomerular Filtration Rate 33, BUN/Creatinine Ratio 20, Glucose Level 132H, Calcium Level 8.5, Corrected Calcium 9.1, Total Bilirubin 0.4, Aspartate Amino Transf (AST/SGOT) 30, Alanine Aminotransferase (ALT/SGPT) 30, Alkaline Phosphatase 89, Total Protein 7.3, Albumin 3.3 05/10/23 05:29: Glucometer 134H 05/10/23 09:14: Glucometer 189H 05/10/23 14:22: Glucometer 153H 05/10/23 19:30: Glucometer 184H 05/11/23 05:04: White Blood Count 8.3, Red Blood Count 4.24L, Hemoglobin 12.3L, Hematocrit 39L, Mean Corpuscular Volume 92, Mean Corpuscular Hemoglobin 29, Mean Corpuscular Hemoglobin Concent 32, Red Cell Distribution Width 14.1, Platelet Count 257, Mean Platelet Volume 9.8, Immature Granulocyte % (Auto) 0, Neutrophils (%) (Auto) 68, Lymphocytes (%) (Auto) 18, Monocytes (%) (Auto) 11, Eosinophils (%) (Auto) 2, Basophils (%) (Auto) 1, Neutrophils # (Auto) 5.6, Lymphocytes # (Auto) 1.5, Monocytes # (Auto) 0.9, Eosinophils # (Auto) 0.2, Basophils # (Auto) 0.0, Immature Granulocyte # (Auto) 0.0, Sodium Level 139, Potassium Level 4.5, Chloride Level 109H, Carbon Dioxide Level 22, Anion Gap 8, Blood Urea Nitrogen 32H, Creatinine 1.82H, Estimat Glomerular Filtration Rate 36, BUN/Creatinine Ratio 18, Glucose Level 173H, Calcium Level 8.6, Corrected Calcium 9.2, Total Bilirubin 0.7, Aspartate Amino Transf (AST/SGOT) 28, Alanine Aminotransferase (ALT/SGPT) 31, Alkaline Phosphatase 87, Total Protein 7.1, Albumin 3.3 05/11/23 05:12: Glucometer 200H 05/11/23 09:25: Glucometer 175H 05/11/23 14:17: Glucometer 208H 05/11/23 17:38: Glucometer 88 05/11/23 19:42: Glucometer 124H 05/12/23 04:44: White Blood Count 7.3, Red Blood Count 3.75L, Hemoglobin 11.1L, Hematocrit 35L, Mean Corpuscular Volume 92, Mean Corpuscular Hemoglobin 30, Mean Corpuscular Hemoglobin Concent 32, Red Cell Distribution Width 14.1, Platelet Count 280, Mean Platelet Volume 10.1, Immature Granulocyte % (Auto) 0, Neutrophils (%) (Auto) 59, Lymphocytes (%) (Auto) 25, Monocytes (%) (Auto) 13H, Eosinophils (%) (Auto) 3, Basophils (%) (Auto) 1, Neutrophils # (Auto) 4.3, Lymphocytes # (Auto) 1.8, Monocytes # (Auto) 0.9, Eosinophils # (Auto) 0.2, Basophils # (Auto) 0.0, Immature Granulocyte # (Auto) 0.0, Sodium Level 138, Potassium Level 4.4, Chloride Level 108H, Carbon Dioxide Level 23, Anion Gap 7, Blood Urea Nitrogen 30H, Creatinine 1.74H, Estimat Glomerular Filtration Rate 38, BUN/Creatinine Ratio 17, Glucose Level 192H, Calcium Level 8.4L, Corrected Calcium 9.2, Total Bilirubin 0.5, Aspartate Amino Transf (AST/SGOT) 26, Alanine Aminotransferase (ALT/SGPT) 27, Alkaline Phosphatase 82, Total Protein 6.4, Albumin 3.0L 05/12/23 05:01: Glucometer 193H 05/12/23 08:57: Glucometer 271H Microbiology 05/05/23 Blood Culture - Final, Complete No growth 05/05/23 Urine Culture - Final, Complete NO GROWTH Pending Labs Microbiology Date/Time Source Procedure Growth Status 05/05/23 16:25 Peripheral Lt Ac Blood Culture - Final No growth Complete 05/05/23 16:00 Urine Clean Catch Urine Culture - Final NO GROWTH Complete 05/05/23 15:28 Peripheral Rt Hand Blood Culture - Final No growth Complete Laboratory Tests 05/05/23 13:50: White Blood Count 11.1, Red Blood Count 4.70, Hemoglobin 13.6, Hematocrit 43, Mean Corpuscular Volume 92, Mean Corpuscular Hemoglobin 29, Mean Corpuscular Hemoglobin Concent 32, Red Cell Distribution Width 13.8, Platelet Count 294, Mean Platelet Volume 9.9, Immature Granulocyte % (Auto) 0, Neutrophils (%) (Auto) 80, Lymphocytes (%) (Auto) 11, Monocytes (%) (Auto) 8, Eosinophils (%) (Auto) 0, Basophils (%) (Auto) 0, Neutrophils # (Auto) 8.9, Lymphocytes # (Auto) 1.2, Monocytes # (Auto) 0.9, Eosinophils # (Auto) 0.0, Basophils # (Auto) 0.0, Immature Granulocyte # (Auto) 0.0, Prothrombin Time 13.0, INR Comment 1.0, Activated Partial Thromboplast Time 36, D-Dimer 3.56, Sodium Level 138, Potassium Level 4.8, Chloride Level 105, Carbon Dioxide Level 23, Anion Gap 10, Blood Urea Nitrogen 17, Creatinine 1.68, Estimat Glomerular Filtration Rate 40, BUN/Creatinine Ratio 10, Glucose Level 184, Calcium Level 8.8, Corrected Calcium 9.0, Magnesium Level 1.9, Total Bilirubin 0.9, Aspartate Amino Transf (AST/SGOT) 27, Alanine Aminotransferase (ALT/SGPT) 33, Alkaline Phosphatase 108, Myoglobin 331.8, Troponin I < 0.028, B-Type Natriuretic Peptide 382.4, Total Protein 7.9, Albumin 3.7, SARS-CoV-2 RNA (RT-PCR) Not Detected 05/05/23 16:00: Urine Color YELLOW, Urine Clarity SL CLOUDY, Urine pH 7.0, Urine Specific [place] 1.015, Urine Protein 3+, Urine Glucose (UA) NEGATIVE, Urine Ketones NEGATIVE, Urine Nitrite NEGATIVE, Urine Bilirubin NEGATIVE, Urine Urobilinogen 0.2, Urine Leukocyte Esterase NEGATIVE, Urine RBC (Auto) NEGATIVE, Urine RBC RARE, Urine WBC RARE, Urine Crystals NONE, Urine Bacteria NEGATIVE, Urine Casts NONE, Urine Mucus NEGATIVE, Urine Culture Indicated NO 05/05/23 16:17: Blood Gas Puncture Site RR, Blood Gas Patient Temperature 37.7, Arterial Blood pH 7.33, Arterial Blood Partial Pressure CO2 53, Arterial Blood Partial Pressure O2 84, Arterial Blood HCO3 27, Arterial Blood Total CO2 28.6, Arterial Blood Oxygen Saturation 97, Arterial Blood Base Excess 1.9, [place] Test YES-POS, Blood Gas Ventilator Setting NO, Blood Gas Inspired Oxygen 2L 05/05/23 16:25: Lactic Acid Level 0.77 05/06/23 05:52: White Blood Count 12.1, Red Blood Count 4.39, Hemoglobin 12.7, Hematocrit 40, Mean Corpuscular Volume 91, Mean Corpuscular Hemoglobin 29, Mean Corpuscular Hemoglobin Concent 32, Red Cell Distribution Width 13.6, Platelet Count 253, Mean Platelet Volume 10.1, Immature Granulocyte % (Auto) 0, Neutrophils (%) (Auto) 76, Lymphocytes (%) (Auto) 12, Monocytes (%) (Auto) 11, Eosinophils (%) (Auto) 0, Basophils (%) (Auto) 0, Neutrophils # (Auto) 9.2, Lymphocytes # (Auto) 1.4, Monocytes # (Auto) 1.4, Eosinophils # (Auto) 0.0, Basophils # (Auto) 0.0, Immature Granulocyte # (Auto) 0.1, Sodium Level 136, Potassium Level 4.4, Chloride Level 104, Carbon Dioxide Level 22, Anion Gap 10, Blood Urea Nitrogen 21, Creatinine 1.69, Estimat Glomerular Filtration Rate 40, BUN/Creatinine Ratio 12, Glucose Level 163, Calcium Level 8.6, Corrected Calcium 9.1, Total Bilirubin 0.8, Aspartate Amino Transf (AST/SGOT) 30, Alanine Aminotransferase (ALT/SGPT) 28, Alkaline Phosphatase 87, Total Protein 7.3, Albumin 3.4, Triglycerides Level 60, Cholesterol Level 121, LDL Cholesterol Direct 78, VLDL Cholesterol 12, HDL Cholesterol 36 05/06/23 09:03: Glucometer 205 05/06/23 10:15: Glucometer 243 05/06/23 15:14: Glucometer 143 05/06/23 21:19: Glucometer 221 05/07/23 01:08: Glucometer 133 05/07/23 05:17: White Blood Count 7.5, Red Blood Count 3.93, Hemoglobin 11.5, Hematocrit 37, Mean Corpuscular Volume 93, Mean Corpuscular Hemoglobin 29, Mean Corpuscular Hemoglobin Concent 31, Red Cell Distribution Width 13.9, Platelet Count 208, Mean Platelet Volume 10.2, Immature Granulocyte % (Auto) 0, Neutrophils (%) (Auto) 56, Lymphocytes (%) (Auto) 27, Monocytes (%) (Auto) 14, Eosinophils (%) (Auto) 2, Basophils (%) (Auto) 0, Neutrophils # (Auto) 4.2, Lymphocytes # (Auto) 2.0, Monocytes # (Auto) 1.1, Eosinophils # (Auto) 0.2, Basophils # (Auto) 0.0, Immature Granulocyte # (Auto) 0.0, Sodium Level 139, Potassium Level 4.4, Chloride Level 106, Carbon Dioxide Level 24, Anion Gap 9, Blood Urea Nitrogen 32, Creatinine 2.41, Estimat Glomerular Filtration Rate 26, BUN/Creatinine Ratio 13, Glucose Level 79, Calcium Level 8.2, Corrected Calcium 9.0, Total Bilirubin 0.5, Aspartate Amino Transf (AST/SGOT) 31, Alanine Aminotransferase (ALT/SGPT) 20, Alkaline Phosphatase 68, Total Protein 6.5, Albumin 3.0 05/07/23 10:25: Glucometer 171 05/07/23 14:43: Glucometer 196 05/07/23 20:21: Glucometer 186 05/07/23 23:31: Glucometer 156 05/08/23 02:58: Glucometer 133 05/08/23 05:11: White Blood Count 9.2, Red Blood Count 3.90, Hemoglobin 11.4, Hematocrit 36, Mean Corpuscular Volume 93, Mean Corpuscular Hemoglobin 29, Mean Corpuscular Hemoglobin Concent 32, Red Cell Distribution Width 13.8, Platelet Count 234, Mean Platelet Volume 10.1, Immature Granulocyte % (Auto) 0, Neutrophils (%) (Auto) 62, Lymphocytes (%) (Auto) 22, Monocytes (%) (Auto) 12, Eosinophils (%) (Auto) 3, Basophils (%) (Auto) 0, Neutrophils # (Auto) 5.7, Lymphocytes # (Auto) 2.0, Monocytes # (Auto) 1.1, Eosinophils # (Auto) 0.3, Basophils # (Auto) 0.0, Immature Granulocyte # (Auto) 0.0, Sodium Level 136, Potassium Level 4.2, Chloride Level 106, Carbon Dioxide Level 22, Anion Gap 8, Blood Urea Nitrogen 44, Creatinine 2.39, Estimat Glomerular Filtration Rate 26, BUN/Creatinine Ratio 18, Glucose Level 121, Calcium Level 8.0, Corrected Calcium 8.7, Total Bilirubin 0.3, Aspartate Amino Transf (AST/SGOT) 27, Alanine Aminotransferase (ALT/SGPT) 18, Alkaline Phosphatase 80, Total Protein 6.6, Albumin 3.1 05/08/23 09:36: Glucometer 190 05/08/23 14:35: Glucometer 164 05/08/23 18:10: Glucometer 194 05/08/23 20:57: Glucometer 227 05/08/23 23:46: Glucometer 177 05/09/23 03:02: Glucometer 114 05/09/23 05:08: White Blood Count 8.2, Red Blood Count 3.84, Hemoglobin 11.3, Hematocrit 36, Mean Corpuscular Volume 92, Mean Corpuscular Hemoglobin 29, Mean Corpuscular Hemoglobin Concent 32, Red Cell Distribution Width 13.7, Platelet Count 246, Mean Platelet Volume 10.0, Immature Granulocyte % (Auto) 0, Neutrophils (%) (Auto) 65, Lymphocytes (%) (Auto) 20, Monocytes (%) (Auto) 11, Eosinophils (%) (Auto) 3, Basophils (%) (Auto) 0, Neutrophils # (Auto) 5.3, Lymphocytes # (Auto) 1.6, Monocytes # (Auto) 0.9, Eosinophils # (Auto) 0.3, Basophils # (Auto) 0.0, Immature Granulocyte # (Auto) 0.0, Sodium Level 137, Potassium Level 4.2, Chloride Level 108, Carbon Dioxide Level 20, Anion Gap 9, Blood Urea Nitrogen 43, Creatinine 2.29, Estimat Glomerular Filtration Rate 27, BUN/Creatinine Ratio 19, Glucose Level 131, Calcium Level 8.0, Corrected Calcium 8.8, Total Bilirubin 0.4, Aspartate Amino Transf (AST/SGOT) 27, Alanine Aminotransferase (ALT/SGPT) 23, Alkaline Phosphatase 78, Total Protein 6.4, Albumin 3.0 05/09/23 08:42: Glucometer 207 05/09/23 12:21: Glucometer 122 05/09/23 13:59: Glucometer 171 05/09/23 19:47: Glucometer 243 05/10/23 05:18: White Blood Count 9.0, Red Blood Count 4.16, Hemoglobin 12.1, Hematocrit 38, Mean Corpuscular Volume 92, Mean Corpuscular Hemoglobin 29, Mean Corpuscular Hemoglobin Concent 32, Red Cell Distribution Width 14.0, Platelet Count 247, Mean Platelet Volume 9.8, Immature Granulocyte % (Auto) 0, Neutrophils (%) (Auto) 67, Lymphocytes (%) (Auto) 19, Monocytes (%) (Auto) 11, Eosinophils (%) (Auto) 3, Basophils (%) (Auto) 0, Neutrophils # (Auto) 6.0, Lymphocytes # (Auto) 1.7, Monocytes # (Auto) 1.0, Eosinophils # (Auto) 0.3, Basophils # (Auto) 0.0, Immature Granulocyte # (Auto) 0.0, Sodium Level 139, Potassium Level 4.9, Chloride Level 109, Carbon Dioxide Level 22, Anion Gap 8, Blood Urea Nitrogen 39 , Creatinine 1.96, Estimat Glomerular Filtration Rate 33, BUN/Creatinine Ratio 20, Glucose Level 132, Calcium Level 8.5, Corrected Calcium 9.1, Total Bilirubin 0.4, Aspartate Amino Transf (AST/SGOT) 30, Alanine Aminotransferase (ALT/SGPT) 30, Alkaline Phosphatase 89, Total Protein 7.3, Albumin 3.3 05/10/23 05:29: Glucometer 134 05/10/23 09:14: Glucometer 189 05/10/23 14:22: Glucometer 153 05/10/23 19:30: Glucometer 184 05/11/23 05:04: White Blood Count 8.3, Red Blood Count 4.24, Hemoglobin 12.3, Hematocrit 39, Mean Corpuscular Volume 92, Mean Corpuscular Hemoglobin 29, Mean Corpuscular Hemoglobin Concent 32, Red Cell Distribution Width 14.1, Platelet Count 257, Me an Platelet Volume 9.8, Immature Granulocyte % (Auto) 0, Neutrophils (%) (Auto) 68, Lymphocytes (%) (Auto) 18, Monocytes (%) (Auto) 11, Eosinophils (%) (Auto) 2, Basophils (%) (Auto) 1, Neutrophils # (Auto) 5.6, Lymphocytes # (Auto) 1.5, Monocytes # (Auto) 0.9, Eosinophils # (Auto) 0.2, Basophils # (Auto) 0.0, Immature Granulocyte # (Auto) 0.0, Sodium Level 139, Potassium Level 4.5, Chloride Level 109, Carbon Dioxide Level 22, Anion Gap 8, Blood Urea Nitrogen 32, Creatinine 1.82, Estimat Glomerular Filtration Rate 36, BUN/Creatinine Ratio 18, Glucose Level 173, Calcium Level 8.6, Corrected Calcium 9.2, Total Bilirubin 0.7, Aspartate Amino Transf (AST/SGOT) 28, Alanine Aminotransferase (ALT/SGPT) 31, Alkaline Phosphatase 87, Total Protein 7.1, Albumin 3.3 05/11/23 05:12: Glucometer 200 05/11/23 09:25: Glucometer 175 05/11/23 14:17: Glucometer 208 05/11/23 17:38: Glucometer 88 05/11/23 19:42: Glucometer 124 05/12/23 04:44: White Blood Count 7.3, Red Blood Count 3.75, Hemoglobin 11.1, Hematocrit 35, Mean Corpuscular Volume 92, Mean Corpuscular Hemoglobin 30, Mean Corpuscular Hemoglobin Concent 32, Red Cell Distribution Width 14.1, Platelet Count 280, Mean Platelet Volume 10.1, Immature Granulocyte % (Auto) 0, Neutrophils (%) (Auto) 59, Lymphocytes (%) (Auto) 25, Monocytes (%) (Auto) 13, Eosinophils (%) (Auto) 3, Basophils (%) (Auto) 1, Neutrophils # (Auto) 4.3, Lymphocytes # (Auto) 1.8, Monocytes # (Auto) 0.9, Eosinophils # (Auto) 0.2, Basophils # (Auto) 0.0, Immature Granulocyte # (Auto) 0.0, Sodium Level 138, Potassium Level 4.4, Chloride Level 108, Carbon Dioxide Level 23, Anion Gap 7, Blood Urea Nitrogen 30, Creatinine 1.74, Estimat Glomerular Filtration Rate 38, BUN/Creatinine Ratio 17, Glucose Level 192, Calcium Level 8.4, Corrected Calcium 9.2, Total Bilirubin 0.5, Aspartate Amino Transf (AST/SGOT) 26, Alanine Aminotransferase (ALT/SGPT) 27, Alkaline Phosphatase 82, Total Protein 6.4, Albumin 3.0 05/12/23 05:01: Glucometer 193 05/12/23 08:57: Glucometer 271 Discharge Home Medications: Active Scripts Active Docusate Sodium 100 Mg Capsule 100 Mg PO BID Fluticasone Propionate 50 Mcg/Actuation Ledbetter.susp 0 Ledbetter NS DAILY 2 puffs each nostril daily Montelukast Sodium 10 Mg Tablet 10 Mg PO HS Acetaminophen 325 Mg Tablet 650 Mg PO Q4H PRN Diltiazem 24Hr ER (Diltiazem HCl) 180 Mg Cap.er.24h 180 Mg PO DAILY Eliquis (Apixaban) 2.5 Mg Tablet 2.5 Mg PO BID Preservision Areds 2 Softgel (Vit C/E/Zn/Coppr/Lutein/Zeaxan) 250MG-90MG Capsule 1 Each PO DAILY Cetirizine HCl 10 Mg Tablet 10 Mg PO DAILY Aspirin EC (Aspirin) 81 Mg Tablet.dr 81 Mg PO DAILY Hydralazine HCl 50 Mg Tablet 50 Mg PO 0000,[id number],1600 Finasteride 5 Mg Tablet 5 Mg PO DAILY Isosorbide Mononitrate ER (Isosorbide Mononitrate) 60 Mg Tab 120 Mg PO DAILY TAKES 2 (60MG) TABS Flomax (Tamsulosin HCl) 0.4 Mg Cap 0.8 Mg PO DAILY TAKES 2 (0.4MG) CAPS Levemir Flexpen (Insulin Detemir) 100 Unit/Ml (3 Ml) Insuln.pen 25 Unit SQ BID Insulin Lispro Kwikpen U-100 (Insulin Lispro) 100 Unit/Ml Insuln.pen 3 Units SC AC USES THE FOLLOWING SLIDING SCALE: 150-200=5 UNITS 200-250=6 UNITS 250 & ABOVE=7 UNITS Trazodone HCl 50 Mg Tablet 50 Mg PO HS Stimulant Laxative Plus Tablet (Sennosides/Docusate Sodium) 8.6 Mg-50 Mg Tablet 17.2 Mg PO DAILY TAKES 2 (8.6MG) TABS Carvedilol 25 Mg Tablet 25 Mg PO BID Omeprazole 40 Mg Capsule.dr 40 Mg PO DAILY Furosemide 40 Mg Tablet 40 Mg PO DAILY Instructions to patient/family Please see electronic discharge instructions given to patient. GAYLE OWUSU DO May 12, 2023 10:40
--- NOTE | 2023-05-12 10:40 | Discharge Inst-Skilled Nursing ---
Discharge Inst-Skilled NF Reconcile Patient Problems Problems Reviewed?: Yes Chief Complaint Chief complaint: Shortness of breath for pneumonia HPI: This is an 82-year-old male clinic patient of mine with history of chronic kidney disease probable hypertension nephropathy and diabetic nephropathy with low vision who presented to the ER with shortness of breath. Patient was found to have pneumonia. Elevated D-dimer patient has Doppler ultrasound which was negative for DVT. Elevated BNP will be managed by Dr. Gloria his regular pastry sous chef. Initiated community-acquired pneumonia antibiotics and will monitor creatinine closely. Patient Instructions Patient Problems: Debility PNA Consult/Follow Up/Orders Follow Up Appt.: PCP Lexie Valadez and Dr Vilchis Skilled NF Admit to: Via [facility] ([facility]) I certify that [facility] services are required to be given on an inpatient basis because of the above named patient's need for intermediate care on a continuing basis for the conditions(s) for which he/she was receiving inpatient hospital services prior to his/her transfer to the [facility]. [facility] Facility Order: Nursing Services, Golf Tournament Consultant-Evaluate & Treat, Physical Therapy-Evaluate & Treat Oxygen Delivery Method: Room Air Discharge Diet: ADA Diet Resuscitation Status: Full Code New & Resume Previous Orders New Medications: Acetaminophen (Acetaminophen) 325 Mg Tablet 650 MG PO Q4H PRN for TEMPERATURE, #30 TAB Apixaban (Eliquis) 2.5 Mg Tablet 2.5 MG PO BID, #60 TAB Diltiazem HCl (Diltiazem 24Hr ER) 180 Mg Cap.er.24h 180 MG PO DAILY, #30 CAP Docusate Sodium (Docusate Sodium) 100 Mg Capsule 100 MG PO BID, #60 CAP Fluticasone Propionate (Fluticasone Propionate) 50 Mcg/Actuation [place].susp 0 SPRAY NS DAILY, #1 EACH 2 puffs each nostril daily Montelukast Sodium (Montelukast Sodium) 10 Mg Tablet 10 MG PO HS, #30 TAB Changed Medications: Insulin Lispro (Insulin Lispro Kwikpen U-100) 100 Unit/Ml Insuln.pen 3 UNITS SC AC, #1 EACH (Changed from: UNITS) USES THE FOLLOWING SLIDING SCALE: 150-200=5 UNITS 200-250=6 UNITS 250 & ABOVE=7 UNITS Continued Medications: Aspirin (Aspirin EC) 81 Mg Tablet.dr 81 MG PO DAILY, #30 TAB (This prescription has been renewed) Carvedilol (Carvedilol) 25 Mg Tablet 25 MG PO BID, #60 TAB (This prescription has been renewed) Cetirizine HCl (Cetirizine HCl) 10 Mg Tablet 10 MG PO DAILY, #30 TAB (This prescription has been renewed) Finasteride (Finasteride) 5 Mg Tablet 5 MG PO DAILY, #30 TAB (This prescription has been renewed) Furosemide (Furosemide) 40 Mg Tablet 40 MG PO DAILY, #30 TAB (This prescription has been renewed) Hydralazine HCl (Hydralazine HCl) 50 Mg Tablet 50 MG PO 0000,0300,1600, #90 TAB (This prescription has been renewed) Insulin Detemir (Levemir Flexpen) 100 Unit/Ml (3 Ml) Insuln.pen 25 UNIT SQ BID, #1 EA (This prescription has been renewed) Isosorbide Mononitrate (Isosorbide Mononitrate ER) 60 Mg Tab 120 MG PO DAILY, #60 TAB (This prescription has been renewed) TAKES 2 (60MG) TABS Omeprazole (Omeprazole) 40 Mg Capsule.dr 40 MG PO DAILY, #30 CAP (This prescription has been renewed) Sennosides/Docusate Sodium (Stimulant Laxative Plus Tablet) 8.6 Mg-50 Mg Tablet 17.2 MG PO DAILY, #30 TAB (This prescription has been renewed) TAKES 2 (8.6MG) TABS Tamsulosin HCl (Flomax) 0.4 Mg Cap 0.8 MG PO DAILY, #60 CAP (This prescription has been renewed) TAKES 2 (0.4MG) CAPS Trazodone HCl (Trazodone HCl) 50 Mg Tablet 50 MG PO HS, #30 TAB (This prescription has been renewed) Vit C/E/Zn/Coppr/Lutein/Zeaxan (Preservision Areds 2 Softgel) 250MG-90MG Capsule 1 EACH PO DAILY, #30 CAP (This prescription has been renewed) Discontinued Medications: Losartan Potassium (Losartan Potassium) 50 Mg Tablet 50 MG PO BID Loida Vilchis May 12, 2023 10:39 LOIDA VILCHIS DO May 12, 2023 10:40
[2023-05-12] MEDS: RT-ALBUTEROL SULF 2.5 MG/3 ML PRE-MIX VIAL INH SCH (10:50)
[2023-05-12 11:09] VITALS: BP 127/59
[2023-05-12] MEDS: ACETAMINOPHEN 325 MG TABLET PO PRN (11:11)
== END 2023-05-12 14:55 | DRG 193 ==
LOC: EDUNIT# 13:40 → ER 13:42 → 4TH 17:58 → OBSVTOIN 05-07 12:35
PROVIDERS: ADMIT Internal Medicine; ATTEND Internal Medicine
DX: J18.9 Pneumonia, unspecified organism (principal); J96.01 Acute respiratory failure with hypoxia; N17.9 Acute kidney failure, unspecified; E66.2 Morbid (severe) obesity with alveolar hypoventilation; Z68.41 Body mass index [BMI] 40.0-44.9, adult; E11.42 Type 2 diabetes mellitus with diabetic polyneuropathy; I12.9 Hypertensive chronic kidney disease with stage 1 through stage 4 chronic kidney disease, or unspecified chronic kidney disease; E11.22 Type 2 diabetes mellitus with diabetic chronic kidney disease; N18.32 Chronic kidney disease, stage 3b; Z20.822 Contact with and (suspected) exposure to COVID-19; N40.1 Benign prostatic hyperplasia with lower urinary tract symptoms; R33.8 Other retention of urine; R39.11 Hesitancy of micturition; R39.12 Poor urinary stream; I48.0 Paroxysmal atrial fibrillation; I25.10 Atherosclerotic heart disease of native coronary artery without angina pectoris; E78.00 Pure hypercholesterolemia, unspecified; I08.0 Rheumatic disorders of both mitral and aortic valves; H35.30 Unspecified macular degeneration; I25.2 Old myocardial infarction; Z79.4 Long term (current) use of insulin; Z87.891 Personal history of nicotine dependence; Z79.899 Other long term (current) drug therapy; Z88.2 Allergy status to sulfonamides
CPT/HCPCS: 36415; 36600; 71045; 80053; 80061; 81000; 82805; 82947; 83605; 83735; 83874; 83880; 84484; 85025; 85379; 85610; 85730; 87040; 87088; 87636; 93005; 93041; 93970; 94010; 94640; 94664; 94760; G0378

== ENCOUNTER 2023-06-10 16:19 | Inpatient (IN) | payer MEDICARE ==
[2023-06-10] VITALS (9 sets, daily range): BP systolic 91–142; BP diastolic 61–85
[~2023-06-10] VITALS: Ht 170.2 cm; Wt 129.2 kg
[~2023-06-10 16:19] MED LIST changes: +ACET325T49 PO; +APIX2.5T PO; +CARV25TA PO; +CETI10TA17 PO; +DILT180C85 PO; +DOCU100C37 PO; +FLUT16SP22 NS; +HYDR-3924 PO; +INSU100I48 SC; +INSU100I88 SC; +INSU100I88 SQ; +ISOS60TA63 PO; +ISOSORBIDE PO; +LIDO700A45 SUBDERM; +LOSA50TA63 PO; +MONT-40 PO; +SENN-117 PO; +TAMSULOSIN PO; +TRZ50T PO
[2023-06-10] MEDS ORDERED: ASPIRIN 81 MG CHEWABLE TABLET PO ONE (16:45)
--- NOTE | 2023-06-10 16:45 | ED Respiratory ---
General Chief Complaint: Respiratory Problems Stated Complaint: SOA Source: patient Exam Limitations: no limitations (ROBBY STAHL) History of Present Illness Date Seen by Provider: Jun 10, 2023 Time Seen by Provider: 16:44 Initial Comments Patient is a 82-year-old male who presents ED with shortness of breath. Sh ortness of breath over the past 4 days. Reports a mild cough with the shortness of breath. Seems to be worse when he lies down. Reports chronic lower leg swelling worse on the right. Currently on a diuretic. States he was recently admitted and discharged this past weekend with secondary pneumonia. History of chronic kidney disease, CHF. Denies of any fever, vomiting, diarrhea, chest pain or specific abdominal pain. States he has been urinating. Patient does not wear oxygen chronically at home. Did receive breathing treatments during his stay. Denies visual changes, headache, dizziness. Patient reports improvement when he sits in a chair (ROBBY STAHL) Allergies and Home Medications Allergies Coded Allergies: Sulfa (Sulfonamide Antibiotics) (Unverified Allergy, Unknown, 10/10/19) Patient Home Medication List Home Medication List Reviewed: Yes (ROBBY STAHL) Apixaban (Eliquis) 2.5 Mg Tablet, 2.5 MG PO BID Prescribed by: GAYLE OWUSU on 05/12/231038 Last Action: Reviewed Aspirin (Aspirin EC) 81 Mg Tablet.dr, 81 MG PO DAILY Prescribed by: GAYLE OWUSU on 05/12/231038 Last Action: Reviewed Carvedilol (Carvedilol) 25 Mg Tablet, 25 MG PO BID Prescribed by: GAYLE OWUSU on 05/12/231038 Last Action: Reviewed Cetirizine HCl (Cetirizine HCl) 10 Mg Tablet, 10 MG PO DAILY Prescribed by: GAYLE OWUSU on 05/12/231038 Last Action: Reviewed Diltiazem HCl (Diltiazem 24Hr ER) 180 Mg Cap.er.24h, 180 MG PO DAILY Prescribed by: GAYLE OWUSU on 05/12/231038 Last Action: Reviewed Docusate Sodium (Docusate Sodium) 100 Mg Capsule, 100 MG PO BID Prescribed by: GAYLE OWUSU on 05/12/231038 Last Action: Reviewed Finasteride (Finasteride) 5 Mg Tablet, 5 MG PO DAILY Prescribed by: GAYLE OWUSU on 05/12/231038 Last Action: Reviewed Fluticasone Propionate (Fluticasone Propionate) 50 Mcg/Actuation [place].susp, 0 SPRAY NS DAILY Prescribed by: GAYLE OWUSU on 05/12/231038 Last Action: Reviewed Furosemide (Furosemide) 40 Mg Tablet, 40 MG PO DAILY Prescribed by: GAYLE OWUSU on 05/12/231038 Last Action: Reviewed Hydralazine HCl (Hydralazine HCl) 50 Mg Tablet, 50 MG PO 0000,0300,1600 Prescribed by: GAYLE OWUSU on 05/12/231038 Last Action: Reviewed Insulin Detemir (Levemir Flexpen) 100 Unit/Ml (3 Ml) Insuln.pen, 25 UNIT SQ BID Prescribed by: GAYLE OWUSU on 05/12/231038 Last Action: Reviewed Insulin Lispro (Insulin Lispro Jared Kwikpen) 100 Unit/Ml Ins.pen.hf, UNITS SC AC, (Reported) Entered as Reported by: THAD WILD on 06/11/23 1505 Last Action: Reviewed Isosorbide Mononitrate (Isosorbide Mononitrate ER) 60 Mg Tab, 120 MG PO DAILY Prescribed by: GAYLE OWUSU on 05/12/231038 Last Action: Reviewed Montelukast Sodium (Montelukast Sodium) 10 Mg Tablet, 10 MG PO HS Prescribed by: GAYLE OWUSU on 05/12/231038 Last Action: Reviewed Omeprazole (Omeprazole) 40 Mg Capsule.dr, 40 MG PO DAILY Prescribed by: GAYLE OWUSU on 05/12/231038 Last Action: Reviewed Sennosides/Docusate Sodium (Stimulant Laxative Plus Tablet) 8.6 Mg-50 Mg Tablet, 17.2 MG PO DAILY Prescribed by: GAYLE OWUSU on 05/12/231038 Last Action: Reviewed Tamsulosin HCl (Flomax) 0.4 Mg Cap, 0.8 MG PO DAILY Prescribed by: GAYLE OWUSU on 05/12/231038 Last Action: Reviewed Trazodone HCl (Trazodone HCl) 50 Mg Tablet, 50 MG PO HS Prescribed by: GAYLE OWUSU on 05/12/231038 Last Action: Reviewed Vit C/E/Zn/Coppr/Lutein/Zeaxan (Preservision Areds 2 Softgel) 250MG-90MG Capsul e, 1 EACH PO DAILY Prescribed by: GAYLE OWUSU on 05/12/231038 Last Action: Reviewed Discontinued Medications Acetaminophen (Acetaminophen) 325 Mg Tablet, 650 MG PO Q4H PRN for TEMPERATURE Discontinued Reason: No Longer Taking Prescribed by: GAYLE OWUSU on 05/12/231038 Last Action: Discontinued Insulin Lispro (Insulin Lispro Kwikpen U-100) 100 Unit/Ml Insuln.pen, 3 UNITS SC AC Discontinued Reason: Duplicate Order Prescribed by: GAYLE OWUSU on 05/12/231038 Last Action: Discontinued Review of Systems Review of Systems Constitutional: No chills, No diaphoresis, No malaise, No weakness EENTM: No hearing loss, No ear pain, No blurred vision Respiratory: cough, short of breath Cardiovascular: No chest pain Gastrointestinal: No abdominal pain, No diarrhea, No nausea, No vomiting Genitourinary: No decreased output, No discharge Musculoskeletal: No back pain, No joint pain Skin: No change in color, No change in hair/nails (ROBBY STAHL) All Other Systems Reviewed Negative Unless Noted: Yes (ROBBY STAHL) Past Wvifflp-Bhutzj-Mbcgoy Hx Immunizations Up To Date Tetanus Booster (TDap): Less than 5yrs First/Initial COVID19 Vaccinat: RECEIVED, UNK WHEN Second COVID19 Vaccination Zoltan: RECEIVED, UNK WHEN Third COVID19 Vaccination Date: RECEIVED, UNK WHEN (ROBBY STAHL) Seasonal Allergies Seasonal Allergies: No (ROBBY STAHL) Past Medical History Surgery/Hospitalization HX: diverticulitis, htn, bph, macular degeneration, iddm Surgeries: Yes (CARDIAC CATH --NO INTERVENTION) Cardiac Respiratory: Yes (Pneumonia patient states "when i was 1") Pneumonia Cardiac: Yes (CARDIAC CATH-NO INTERVENTION;NSTEMI 10/2019;[facility] RIGHT LEG EDEMA- US NEGATIVE) Chronic Edema/Swelling, Coronary Artery Disease, Heart Attack, High Cholesterol, Hypertension Neurological: Yes (PERIPHERAL NEUROPATHY) Neuropathy Genitourinary: Yes (Chronic kidney disease stage 3 ; GFR TYPICALLY IN 30'S) Prostate Problems, Renal Failure Gastrointestinal: Yes (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;DIVERTICULITIS-NO SURGERY) Diverticulosis, Gall Bladder Disease Musculoskeletal: No Endocrine: Yes (SELF MEDICATES WITH HIS INSULIN; OBESITY) Diabetes, Insulin dep HEENT: No (patient wears glasses ) Loss of Vision: Denies Hearing Impairment: Denies Cancer: No Psychosocial: No Integumentary: No Blood Disorders: No (ROBBY STAHL) Family Medical History Cardiovascular disease 19 FATHER Hypertension 19 FATHER No Pertinent Family Hx, CAD Over 55 Years Old, Hypertension PAST SURGICAL HISTORY: -CARDIAC CATH 11/09/19--DIFFUSELY CALCIFIED CORONARY ARTERIES, SMALL VESSEL DISEASE, NO INTERVENTION - (ROBBY STAHL) Physical Exam Vital Signs - First Documented 06/10/23 16:25 Pulse 75 Resp 18 B/P (MAP) 121/64 (83) Pulse Ox 97 O2 Delivery Nasal Cannula O2 Flow Rate 2.00 (ARAMIS CHAMORRO MD) Capillary Refill : (ROBBY STAHL) Height: 5'7.00" Weight: 200lbs. oz. 90.496147yw; 44.84 BMI Method:Estimated General Appearance: WD/WN, no apparent distress Eyes: Bilateral Eye Normal Inspection, Bilateral Eye PERRL, Bilateral Eye EOMI HEENT: PERRL/EOMI, normal ENT inspection, TMs normal, pharynx normal Neck: non-tender, full range of motion, supple Respiratory: chest non-tender, lungs clear, normal breath sounds, no respiratory distress, no accessory muscle use Cardiovascular: regular rate, rhythm, no edema, no gallop, no JVD Gastrointestinal: normal bowel sounds, non tender, soft, no organomegaly Extremities: other (Pitting edema right lower extremity +2. Mild pitting edema left lower extremity +1) Neurologic/Psychiatric: residential mortgage manager II-XII nml as tested, no motor/sensory deficits, alert, normal mood/affect, oriented x 3 Skin: normal color, warm/dry (ROBBY STAHL) Progress/Results/Core Measures Suspected Sepsis SIRS Temperature: Pulse: Respiratory Rate: Blood Pressure / Mean: Laboratory Tests 06/10/23 16:28: INR Comment 1.2 (ROBBY STAHL) Results/Orders Lab Results Laboratory Tests Test 06/10/23 16:28 06/10/23 17:35 Range/Units White Blood Count 8.8 4.3-11.0 10^3/uL Red Blood Count 4.06 L 4.30-5.52 10^6/uL Hemoglobin 11.8 L 13.3-17.7 g/dL Hematocrit 38 L 40-54 % Mean Corpuscular Volume 94 80-99 fL Mean Corpuscular Hemoglobin 29 25-34 pg Mean Corpuscular Hemoglobin Concent 31 L 32-36 g/dL Red Cell Distribution Width 14.6 H 10.0-14.5 % Platelet Count 244 130-400 10^3/uL Mean Platelet Volume 10.1 9.0-12.2 fL Immature Granulocyte % (Auto) 0 % Neutrophils (%) (Auto) 72 42-75 % Lymphocytes (%) (Auto) 15 12-44 % Monocytes (%) (Auto) 11 0-12 % Eosinophils (%) (Auto) 1 0-10 % Basophils (%) (Auto) 0 0-10 % Neutrophils # (Auto) 6.3 1.8-7.8 X 10^3 Lymphocytes # (Auto) 1.3 1.0-4.0 X 10^3 Monocytes # (Auto) 1.0 0.0-1.0 X 10^3 Eosinophils # (Auto) 0.1 0.0-0.3 10^3/uL Basophils # (Auto) 0.0 0.0-0.1 10^3/uL Immature Granulocyte # (Auto) 0.0 0.0-0.1 10^3/uL Prothrombin Time 14.9 H 12.2-14.7 SEC INR Comment 1.2 0.8-1.4 Activated Partial Thromboplast Time 40 H 24-35 SEC Sodium Level 142 135-145 MMOL/L Potassium Level 4.9 3.6-5.0 MMOL/L Chloride Level 107 98-107 MMOL/L Carbon Dioxide Level 24 21-32 MMOL/L Anion Gap 11 5-14 MMOL/L Blood Urea Nitrogen 30 H 7-18 MG/DL Creatinine 2.43 H 0.60-1.30 MG/DL Estimat Glomerular Filtration Rate 26 BUN/Creatinine Ratio 12 Glucose Level 168 H 70-105 MG/DL Calcium Level 8.7 8.5-10.1 MG/DL Corrected Calcium 9.1 8.5-10.1 MG/DL Magnesium Level 2.3 1.6-2.4 MG/DL Total Bilirubin 0.6 0.1-1.0 MG/DL Aspartate Amino Transf (AST/SGOT) 20 5-34 U/L Alanine Aminotransferase (ALT/SGPT) 17 0-55 U/L Alkaline Phosphatase 88 40-136 U/L Myoglobin 201.7 H 10.0-92.0 NG/ML Troponin I < 0.028 <0.028 NG/ML B-Type Natriuretic Peptide 358.0 H <100.0 PG/ML Total Protein 7.6 6.4-8.2 GM/DL Albumin 3.5 3.2-4.5 GM/DL Lipase 17 8-78 U/L Influenza Type A (RT-PCR) Not Detected Not Detecte Influenza Type B (RT-PCR) Not Detected Not Detecte SARS-CoV-2 RNA (RT-PCR) Not Detected Not Detecte (ARAMIS CHAMORRO MD) Medications Given in ED Current Medications Medications Dose Ordered Sig/Laya Route Start Time Stop Time Status Last Admin Dose Admin Aspirin 324 mg ONCE ONCE PO 06/10/23 16:45 06/10/23 16:46 DC 06/10/23 16:53 324 MG Lidocaine HCl 10 ml ONCE ONCE TOP 06/10/23 18:15 06/10/23 18:16 DC 06/10/23 18:20 10 ML (ARAMIS CHAMORRO MD) Vital Signs/I&O 06/10/23 06/10/23 16:25 16:25 Pulse 75 Resp 18 B/P (MAP) 121/64 (83) Pulse Ox 97 95 O2 Delivery Nasal Cannula Nasal Cannula O2 Flow Rate 2.00 2.00 (ARAMIS CHAMORRO MD) Vital Signs/I&O Capillary Refill : (ROBBY STAHL) ECG Comment Sinus rhythm with sinus arrhythmia, 65 bpm, QRS duration 91 MS, QTc 425 MS (ROBBY STAHL) Departure Communication (PCP) Patient is a 82-year-old male with a history of chronic kidney disease, coronary artery disease who presents the ED for shortness of breath. Shortness of breath over the past 4 days. Reports a mild cough. Shortness of breath seems to be wo rse with exertion or when he lies down. Patient was refusing to lie down initially as he felt short of breath. His oxygen level was in the upper 80s. Does not wear oxygen at home. Patient was placed on 2 L with improvement to 96. Due to current complaint cardiac work-up was initiated. Does have chronic lower extremity edema worse to his right leg. Patient does have right lower leg swelling +2 with left lower leg edema +1. Patient was admitted May 10 for pneumonia. He had a cardiac evaluation by Dr. Gloria his group program manager. Patient had a echo May 06 which noted ejection fraction 55 to 60%. Patient EKG showed sinus rhythm with sinus arrhythmia at 65 bpm. No evidence of ST elevation or depression. Patient was admitted May 05 with a creatinine 1.68. Patient's creatinine today 2.68 with GFR 26. Normal troponin. BNP 358 which is near his baseline. Chest x-ray shows cardiomegaly with central venous congestion. No evidence of pneumonia. Patient states he takes Lasix 40 mg daily. Patient was discussed with group program manager Dr. Gloria. Due to his recent cardiac work-up does not believe this is secondary to CHF and likely more due to his kidney failure. He suggest starting patient on normal saline 75ml/hr at this time as he is concern this is to do to NOA. Eliquis 2.5 mg twice daily. This was discussed with hospitalist Dr. Owusu who agreed to accept the patient to cardiac rob pdown. (ROBBY STAHL) Impression Primary Impression: Acute kidney injury superimposed on chronic kidney disease Disposition: ADMITTED INPATIENT Condition: Stable Admissions Decision to Admit Reason: Admit from ER (General) Decision to Admit/Date: Jun 10, 2023 Time/Decision to Admit Time: 18:06 (ROBBY STAHL) Departure-Patient Inst. Referrals: GAYLE OWUSU DO (PCP/Family) Primary Care Physician ATTENDING PHYSICIAN NOTE: I was physically present as attending physician in the emergency department during the care of this patient, but I was not directly involved in the decision making or delivery of care for this patient. (ARAMIS CHAMORRO MD) ROBBY STAHL Jun 10, 2023 16:45 ARAMIS CHAMORRO MD Jun 11, 2023 00:41
[2023-06-10 16:48] LABS: BASOPHILS % (AUTO) 0 % (0-10); EOSINOPHILS # (AUTO) 0.1 10^3/uL (0.0-0.3); EOSINOPHILS % (AUTO) 1 % (0-10); HEMATOCRIT 38 % (40-54); HEMOGLOBIN 11.8 g/dL (13.3-17.7); LYMPHOCYTES # (AUTO) 1.3 X 10^3 (1.0-4.0); LYMPHOCYTES % (AUTO) 15 % (12-44); MEAN CORPUSCULAR HEMOGLOBIN 29 pg (25-34); MEAN CORPUSCULAR HGB CONC 31 g/dL (32-36); MEAN CORPUSCULAR VOLUME 94 fL (80-99); MEAN PLATELET VOLUME 10.1 fL (9.0-12.2); MONOCYTES % (AUTO) 11 % (0-12); NEUTROPHILS # (AUTO) 6.3 X 10^3 (1.8-7.8); NEUTROPHILS % (AUTO) 72 % (42-75); PLATELET COUNT 244 10^3/uL (130-400); WHITE BLOOD COUNT 8.8 10^3/uL (4.3-11.0)
[2023-06-10 16:53] LABS: ALBUMIN 3.5 GM/DL (3.2-4.5); CHLORIDE 107 MMOL/L (98-107); POTASSIUM 4.9 MMOL/L (3.6-5.0); SODIUM 142 MMOL/L (135-145)
[2023-06-10 16:54] LABS: CALCIUM 8.7 MG/DL (8.5-10.1)
[2023-06-10 16:55] LABS: GLUCOSE 168 MG/DL (70-105); TOTAL PROTEIN 7.6 GM/DL (6.4-8.2)
[2023-06-10 16:56] LABS: CARBON DIOXIDE 24 MMOL/L (21-32)
[2023-06-10 16:57] LABS: BILIRUBIN,TOTAL 0.6 MG/DL (0.1-1.0)
[2023-06-10 16:58] LABS: INR 1.2 (0.8-1.4); PROTHROMBIN TIME PATIENT 14.9 SEC (12.2-14.7)
[2023-06-10 16:59] LABS: ALKALINE PHOSPHATASE 88 U/L (40-136); CREATININE SERUM 2.43 MG/DL (0.60-1.30); GFR ESTIMATED 26
[2023-06-10 17:00] LABS: BUN/CREATININE RATIO 12
--- NOTE | 2023-06-10 17:00 | Diagnostic Imaging Report ---
INDICATION: Chest pain Frontal chest obtained at 04:39 p.m. There is cardiomegaly. There is central vascular congestion with some interstitial edema. There is no pneumothorax or pleural fluid. There is poor inspiration. IMPRESSION: Cardiomegaly with central vascular congestion and some interstitial edema. There is limitation due to poor inspiration. Dictated by: Dictated on workstation # [id number]
[2023-06-10 17:02] LABS: ALANINE AMINOTRANSFERASE 17 U/L (0-55); MAGNESIUM 2.3 MG/DL (1.6-2.4)
[2023-06-10 17:03] LABS: LIPASE 17 U/L (8-78)
[2023-06-10] MEDS ORDERED: LIDOCAINE UROJET 2% GEL 10 ML PKG TOP ONE ×2 (18:15→20:45)
[2023-06-10] MEDS ORDERED: oxyCODONE IMMEDIATE RELEASE 5 MG TABLET PO PRN (20:30)
[2023-06-10] MEDS ORDERED: diphenhydrAMINE INJ 50 MG/ML VIAL IVP PRN (20:30)
[2023-06-10] MEDS ORDERED: diphenhydrAMINE 25 MG TABLET PO PRN (20:30)
[2023-06-10] MEDS ORDERED: LACTULOSE SYRUP 10GM/15ML 30ML UDC PO PRN (20:30)
[2023-06-10] MEDS ORDERED: MELATONIN 3 MG TABLET PO PRN (20:30)
[2023-06-10] MEDS ORDERED: HYDROmorphone INJECTION 2 MG/ML VIAL IV PRN (20:30)
[2023-06-10] MEDS ORDERED: ONDANSETRON 4 MG/2 ML (SDV) Z0FRAN IV PRN (20:30)
[2023-06-10] MEDS ORDERED: BISACODYL 10 MG SUPPOSITORY PR PRN (20:30)
[2023-06-10] MEDS ORDERED: MILK OF MAGNESIA 400 MG/5 ML 30 ML UDC PO PRN (20:30)
[2023-06-10] MEDS ORDERED: CALCIUM CARBONATE 500 MG CHEW TABLET PO PRN (20:30)
[2023-06-10] MEDS ORDERED: polyethylene glycoL POWDER 17 GM (MIRALAX) PACK PO PRN (20:30)
[2023-06-10] MEDS ORDERED: ONDANSETRON 4 MG (ZOFRAN) ORAL DISSOLVE TAB PO PRN (20:30)
[2023-06-10] MEDS ORDERED: ANTACID SUSPENSION 30 ML UDC PO PRN (20:30)
[2023-06-10] MEDS: SENNOSIDES 8.6 MG (SENOKOT) TAB PO SCH (21:00)
[2023-06-10] MEDS: DOCUSATE SODIUM 100 MG CAPSULE PO SCH (21:00)
[2023-06-10] MEDS ORDERED: NS IV 1000 ML 1,000 ML ONE (22:13)
[2023-06-10] MEDS ORDERED: inSUlin ASPART 1 UNIT/0.01 ML (PER UNIT) ONE (22:14)
[2023-06-10] MEDS: inSUlin ASPART 1 UNIT/0.01 ML (PER UNIT) SC SCH (22:19)
[2023-06-10] MEDS: NS IV 1000 ML 1,000 ML IV SCH (22:20)
[2023-06-10] MEDS: carvediloL 12.5 MG TABLET PO SCH (23:00)
[2023-06-11] VITALS: BP 114/58
[2023-06-11] MEDS: traZODone 50 MG (DESYREL) TAB PO SCH ×2 (00:10→20:08)
[2023-06-11] MEDS: APIXABAN 2.5 MG TABLET PO SCH ×3 (00:10→20:08)
[2023-06-11] MEDS: hydrALAZINE 25 MG TABLET PO SCH ×3 (00:17→17:22)
[2023-06-11 04:00] VITALS: BP 114/59
[2023-06-11] MEDS: RT-ALBUTEROL SULF 2.5 MG/3 ML PRE-MIX VIAL INH PRN (04:05)
[2023-06-11 04:49] LABS: BASOPHILS % (AUTO) 0 % (0-10); EOSINOPHILS # (AUTO) 0.1 10^3/uL (0.0-0.3); EOSINOPHILS % (AUTO) 2 % (0-10); HEMATOCRIT 33 % (40-54); HEMOGLOBIN 10.4 g/dL (13.3-17.7); LYMPHOCYTES # (AUTO) 1.4 10^3/uL (1.0-4.0); LYMPHOCYTES % (AUTO) 23 % (12-44); MEAN CORPUSCULAR HEMOGLOBIN 30 pg (25-34); MEAN CORPUSCULAR HGB CONC 32 g/dL (32-36); MEAN CORPUSCULAR VOLUME 94 fL (80-99); MONOCYTES # (AUTO) 0.8 10^3/uL (0.0-1.0); MONOCYTES % (AUTO) 13 % (0-12); NEUTROPHILS # (AUTO) 3.9 10^3/uL (1.8-7.8); NEUTROPHILS % (AUTO) 62 % (42-75); PLATELET COUNT 209 10^3/uL (130-400); WHITE BLOOD COUNT 6.2 10^3/uL (4.3-11.0)
--- NOTE | 2023-06-11 05:26 | History & Physical ---
History of Present Illness Source: patient, RN/MD, old records Exam Limitations: no limitations Date Seen 06/11/23 Time Seen by a Provider: 12:00 Attending Physician Loida Vilchis DO PCP Admitting Physician: Loida Vilchis DO Attending Physician: Loida Vilchis DO Referring Physician Date of Admission Jun 10, 2023 at 20:13 Home Medications & Allergies Home Medications Reviewed patient Home Medication Reconciliation performed by pharmacy medication reconciliations wind turbine blade repair technician and/or nursing. Patients Allergies have been reviewed. Allergies Allergies Coded Allergies Sulfa (Sulfonamide Antibiotics) (Unverified Allergy, Unknown, 10/10/19) Past Aopvnwd-Mlhcua-Jndemr Hx Patient Social History Smoking Status: Never a Smoker Former Smoker, Quit: Jun 22, 1968 Type Used: Cigarettes 2nd Hand Smoke Exposure: No Contact w/other who traveled: No Recent Hopitalizations: No Immunizations Up To Date Tetanus Booster (TDap): Less than 5yrs Date of Pneumonia Vaccine: Oct 10, 2013 Date of Influenza Vaccine: Sep 10, 2020 Seasonal Allergies Seasonal Allergies: No Past Medical History Surgeries: Cardiac Cardiac: Chronic Edema/Swelling, Coronary Artery Disease, Heart Attack, High Cholesterol, Hypertension Neurological: Neuropathy Genitourinary: Prostate Problems, Renal Failure Gastrointestinal: Diverticulosis, Gall Bladder Disease Endocrine: Diabetes, Insulin dep Loss of Vision: Denies Hearing Impairment: Denies History of Blood Disorders: No Family History Cardiovascular disease 19 FATHER Hypertension 19 FATHER No Pertinent Family Hx, CAD Over 55 Years Old, Hypertension PAST SURGICAL HISTORY: -CARDIAC CATH 11/09/19--DIFFUSELY CALCIFIED CORONARY ARTERIES, SMALL VESSEL DISEASE, NO INTERVENTION - Physical Exam Physical Exam Vital Signs Vital Signs - First Documented 06/10/23 06/11/23 16:25 00:00 Temp 36.3 Pulse 75 Resp 18 B/P (MAP) 121/64 (83) Pulse Ox 97 O2 Delivery Nasal Cannula O2 Flow Rate 2.00 Capillary Refill : Less Than 3 Seconds Height, Weight, BMI Height: 5'7.00" Weight: 200lbs. oz. 90.885276rq; 44.94 BMI Method:Estimated Eyes: Bilateral Eye Normal Inspection, Bilateral Eye PERRL, Bilateral Eye EOMI Results Results/Procedures Labs Laboratory Tests 06/10/23 16:28 06/11/23 04:30 Patient resulted labs reviewed. LOIDA VILCHIS DO Jun 11, 2023 05:26
[2023-06-11 05:35] LABS: BILIRUBIN,TOTAL 0.5 MG/DL (0.1-1.0); CREATININE SERUM 2.23 MG/DL (0.60-1.30); POTASSIUM 4.3 MMOL/L (3.6-5.0); TOTAL PROTEIN 6.4 GM/DL (6.4-8.2)
[2023-06-11] MEDS: inSUlin ASPART 1 UNIT/0.01 ML (PER UNIT) SC SCH ×5 (06:21→20:08)
[2023-06-11] MEDS: PANTOPRAZOLE 40 MG (PROTONIX) TAB PO SCH (06:30)
[2023-06-11] MEDS: THERAPEUTIC MULTIVITAMIN W/MINERALS TABLET PO SCH (07:39)
[2023-06-11] MEDS: ISOSORBIDE MONONITRATE 60 MG TABLET PO SCH (08:04)
[2023-06-11] MEDS: FINASTERIDE 5 MG TABLET PO SCH (08:04)
[2023-06-11] MEDS: dilTIAZem ER 180 MG CAPSULE PO SCH (08:04)
[2023-06-11] MEDS: ASPIRIN 81 MG CHEWABLE TABLET PO SCH (08:04)
[2023-06-11] MEDS: TAMSULOSIN 0.4 MG (FLOMAX) CAP PO SCH (08:05)
[2023-06-11] MEDS: carvediloL 12.5 MG TABLET PO SCH (08:06)
[2023-06-11] MEDS: SENNOSIDES 8.6 MG (SENOKOT) TAB PO SCH ×2 (08:07→20:42)
[2023-06-11] MEDS: NS IV 1000 ML 1,000 ML IV SCH ×3 (08:07→20:07)
[2023-06-11] MEDS: SENNA W/DOCUSATE (SENOKOT S) TABLET PO SCH (08:07)
[2023-06-11] MEDS: DOCUSATE SODIUM 100 MG CAPSULE PO SCH ×2 (08:07→20:42)
[2023-06-11 08:10] VITALS: BP 102/52
[2023-06-11] MEDS: LORATADINE 10 MG TABLET PO SCH (08:13)
[2023-06-11] MEDS: FLUTICASONE NASAL SPRAY (120 SPRAYS) NS SCH (08:13)
[2023-06-11] MEDS ORDERED: PRESERVISION AREDS SOFTGEL (BAUSH & LOMB) PO SCH (09:00)
[2023-06-11] MEDS ORDERED: ASPIRIN enteric coated 81MG TABLET PO SCH (09:00)
[2023-06-11] MEDS ORDERED: DOCUSATE SODIUM 100 MG CAPSULE PO SCH (09:00)
--- NOTE | 2023-06-11 09:29 | Consultation-Cardiology ---
HPI-Cardiology Cardiology Consultation: Date of Consultation 06/11/23 Time Seen by a Provider: 09:00 Date of Admission Attending Physician Loida Vilchis DO Admitting Physician Admitting Physician: Loida Vilchis DO Attending Physician: Loida Vilchis DO Consulting Physician RACHEL LOUIS MD, MA, FACP, FACC, FSCAI, CCDS Physician requesting consult: Dr Vilchis HPI: Chief Complaint: Reason for Card consult: Elevated BNP, h/o PAF 82 yo man who was admitted to Dr Vilchis service on 06/10/23 with symptoms of gen weakness and malaise and exertional shortness of breath and poor stamina. Denies cp or palp or syncope. Denies n/v/d Review of Systems-Cardiology Review of Systems Constitutional: malaise, tiredness; No weight loss, No weight gain Eyes: No vision change Ears/Nose/Throat: No ear discharge, No nasal drainage, No recent hearing loss Respiratory: No As described under HPI Cardiovascular: No As described under HPI Gastrointestinal: No As described under HPI Genitourinary: dysuria (h/o intermittent dysuria/difficulty with stream, none currently); No hematuria, No urine frequency changes Musculoskeletal: back pain (chronic), joint pain (chronic) Skin: No rash, No ulcerations Psychiatric/Neurological: No seizure, No focal weakness, No syncope Hematologic: No bleeding abnormalities All Other Systems Reviewed Negative Unless Noted: Yes CFX-Rusfrz-Hgadyw Hx Patient Social History Smoking Status: Never a Smoker 2nd Hand Smoke Exposure: No Alcohol Use?: No Pt feels they are or have been: Yes Immunizations Up To Date Tetanus Booster (TDap): Less than 5yrs Date of Pneumonia Vaccine: Oct 10, 2013 Date of Influenza Vaccine: Sep 10, 2020 Past Medical History PMH As described under Assessment. Family Medical History Family History: Cardiovascular disease 19 FATHER Hypertension 19 FATHER Allergies and Home Medications Allergies Coded Allergies: Sulfa (Sulfonamide Antibiotics) (Unverified Allergy, Unknown, 10/10/19) Patient Home Medication List Home Medication List Reviewed: Yes Acetaminophen (Acetaminophen) 325 Mg Tablet, 650 MG PO Q4H PRN for TEMPERATURE Prescribed by: LOIDA VILCHIS on 05/12/23 1039 Last Action: Held Apixaban (Eliquis) 2.5 Mg Tablet, 2.5 MG PO BID Prescribed by: LOIDA VILCHIS on 05/12/231038 Last Action: Held Aspirin (Aspirin EC) 81 Mg Tablet.dr, 81 MG PO DAILY Prescribed by: LOIDA VILCHIS on 05/12/231038 Last Action: Continued Carvedilol (Carvedilol) 25 Mg Tablet, 25 MG PO BID Prescribed by: LOIDA VILCHIS on 05/12/231038 Last Action: Converted Cetirizine HCl (Cetirizine HCl) 10 Mg Tablet, 10 MG PO DAILY Prescribed by: LOIDA VILCHIS on 05/12/231038 Last Action: Converted Diltiazem HCl (Diltiazem 24Hr ER) 180 Mg Cap.er.24h, 180 MG PO DAILY Prescribed by: LOIDA VILCHIS on 05/12/231038 Last Action: Continued Docusate Sodium (Docusate Sodium) 100 Mg Capsule, 100 MG PO BID Prescribed by: LOIDA VILCHIS on 05/12/231038 Last Action: Continued Finasteride (Finasteride) 5 Mg Tablet, 5 MG PO DAILY Prescribed by: LOIDA VILCHIS on 05/12/231038 Last Action: Continued Fluticasone Propionate (Fluticasone Propionate) 50 Mcg/Actuation [place].susp, 0 SPRAY NS DAILY Prescribed by: LOIDA VILCHIS on 05/12/231038 Last Action: Continued Furosemide (Furosemide) 40 Mg Tablet, 40 MG PO DAILY Prescribed by: LOIDA VILCHIS on 05/12/231038 Last Action: Held Hydralazine HCl (Hydralazine HCl) 50 Mg Tablet, 50 MG PO 0000,0300,1600 Prescribed by: LOIDA VILCHIS on 05/12/231038 Last Action: Converted Insulin Detemir (Levemir Flexpen) 100 Unit/Ml (3 Ml) Insuln.pen, 25 UNIT SQ BID Prescribed by: LOIDA VILCHIS on 05/12/231038 Last Action: Held Insulin Lispro (Insulin Lispro Kwikpen U-100) 100 Unit/Ml Insuln.pen, 3 UNITS SC AC Prescribed by: LOIDA VILCHIS on 05/12/231038 Last Action: Held Isosorbide Mononitrate (Isosorbide Mononitrate ER) 60 Mg Tab, 120 MG PO DAILY Prescribed by: LOIDA VILCHIS on 05/12/231038 Last Action: Continued Montelukast Sodium (Montelukast Sodium) 10 Mg Tablet, 10 MG PO HS Prescribed by: LOIDA VILCHIS on 05/12/231038 Last Action: Continued Omeprazole (Omeprazole) 40 Mg Capsule.dr, 40 MG PO DAILY Prescribed by: LOIDA VILCHIS on 05/12/231038 Last Action: Converted Sennosides/Docusate Sodium (Stimulant Laxative Plus Tablet) 8.6 Mg-50 Mg Tablet, 17.2 MG PO DAILY Prescribed by: LOIDA VILCHIS on 05/12/231038 Last Action: Continued Tamsulosin HCl (Flomax) 0.4 Mg Cap, 0.8 MG PO DAILY Prescribed by: LOIDA VILCHIS on 05/12/231038 Last Action: Continued Trazodone HCl (Trazodone HCl) 50 Mg Tablet, 50 MG PO HS Prescribed by: LOIDA VILCHIS on 05/12/231038 Last Action: Continued Vit C/E/Zn/Coppr/Lutein/Zeaxan (Preservision Areds 2 Softgel) 250MG-90MG Capsule, 1 EACH PO DAILY Prescribed by: LOIDA VILCHIS on 05/12/231038 Last Action: Converted Physical Exam-Cardiology Physical Exam Vital Signs/I&O 06/10/23 06/10/23 06/10/23 06/11/23 21:30 21:45 22:00 00:00 Temp 36.3 Pulse 75 68 70 73 Resp 14 13 18 18 B/P (MAP) 91/70 (83) 134/61 (87) 131/62 (88) 114/58 (76) Pulse Ox 96 97 97 96 O2 Delivery Nasal Cannula Nasal Cannula Nasal Cannula Nasal Cannula O2 Flow Rate 2.00 06/11/23 06/11/23 06/11/23 06/11/23 01:00 04:00 04:05 04:06 Temp 36.6 Pulse 65 70 Resp 16 B/P (MAP) 114/59 (77) Pulse Ox 98 98 O2 Delivery Nasal Cannula Nasal Cannula Nasal Cannula O2 Flow Rate 2.00 2.00 2.00 06/11/23 06/11/23 06/11/23 07:16 08:00 08:10 Temp 36.5 Pulse 77 73 Resp 18 B/P (MAP) 102/52 (69) Pulse Ox 95 94 O2 Delivery Nasal Cannula Nasal Cannula O2 Flow Rate 2.00 2.00 06/11/23 00:00 Intake Total 350 ml Output Total 1350 ml Balance -1000 ml Capillary Refill : Less Than 3 Seconds Constitutional: AAO x 3, well-developed, well-nourished HEENT: EOMI, hearing is well preserved; No xanthelasmas are seen Neck: carotid pulses are 2 + bilaterally, with good upstrokes Respiratory: No accessory muscle use; chest expansion is symmetric, chest is bilaterally symmetric, other (fair, bilat air entry, diminished at the bases; prolonged exp phase) Cardiovascular: regular rate-rhythm, S1 and S2, systolic murmur (soft WANDA at card base) Gastrointestinal: No tender; soft; No guarding, No rebound; audible bowel sounds Extremities: other (mild leg swelling); No clubbing, No cyanosis Neurologic/Psychiatric: oriented x 3, other (moves all limbs equally) Skin: normal color, warm/dry; No cyanosis, No cool, No diaphoresis, No rash on exposed areas, No ulcerations on exposed areas Data Review Labs Laboratory Tests 06/10/23 16:28: White Blood Count 8.8, Red Blood Count 4.06L, Hemoglobin 11.8L, Hematocrit 38L, Mean Corpuscular Volume 94, Mean Corpuscular Hemoglobin 29, Mean Corpuscular Hemoglobin Concent 31L, Red Cell Distribution Width 14.6H, Platelet Count 244, Mean Platelet Volume 10.1, Immature Granulocyte % (Auto) 0, Neutrophils (%) (Auto) 72, Lymphocytes (%) (Auto) 15, Monocytes (%) (Auto) 11, Eosinophils (%) (Auto) 1, Basophils (%) (Auto) 0, Neutrophils # (Auto) 6.3, Lymphocytes # (Auto) 1.3, Monocytes # (Auto) 1.0, Eosinophils # (Auto) 0.1, Basophils # (Auto) 0.0, Immature Granulocyte # (Auto) 0.0, Prothrombin Time 14.9H, INR Comment 1.2, Activated Partial Thromboplast Time 40H, Sodium Level 142, Potassium Level 4.9, Chloride Level 107, Carbon Dioxide Level 24, Anion Gap 11, Blood Urea Nitrogen 30H, Creatinine 2.43H, Estimat Glomerular Filtration Rate 26, BUN/Creatinine Ratio 12, Glucose Level 168H, Calcium Level 8.7, Corrected Calcium 9.1, Magnesium Level 2.3, Total Bilirubin 0.6, Aspartate Amino Transf (AST/SGOT) 20, Alanine Aminotransferase (ALT/SGPT) 17, Alkaline Phosphatase 88, Myoglobin 201.7H, Troponin I < 0.028, B-Type Natriuretic Peptide 358.0H, Total Protein 7.6, Albumin 3.5, Lipase 17 06/10/23 17:35: Influenza Type A (RT-PCR) Not Detected, Influenza Type B (RT-PCR) Not Detected, SARS-CoV-2 RNA (RT-PCR) Not Detected 06/11/23 04:30: White Blood Count 6.2, Red Blood Count 3.53L, Hemoglobin 10.4L, Hematocrit 33L, Mean Corpuscular Volume 94, Mean Corpuscular Hemoglobin 30, Mean Corpuscular Hemoglobin Concent 32, Red Cell Distribution Width 14.7H, Platelet Count 209, Mean Platelet Volume 10.0, Immature Granulocyte % (Auto) 0, Neutrophils (%) (Auto) 62, Lymphocytes (%) (Auto) 23, Monocytes (%) (Auto) 13H, Eosinophils (%) (Auto) 2, Basophils (%) (Auto) 0, Neutrophils # (Auto) 3.9, Lymphocytes # (Auto) 1.4, Monocytes # (Auto) 0.8, Eosinophils # (Auto) 0.1, Basophils # (Auto) 0.0, Immature Granulocyte # (Auto) 0.0, Sodium Level 142, Potassium Level 4.3, Chloride Level 107, Carbon Dioxide Level 28, Anion Gap 7, Blood Urea Nitrogen 30H, Creatinine 2.23H, Estimat Glomerular Filtration Rate 28, BUN/Creatinine Ratio 13, Glucose Level 126H, Calcium Level 8.0L, Corrected Calcium 8.8, Total Bilirubin 0.5, Aspartate Amino Transf (AST/SGOT) 16, Alanine Aminotransferase (ALT/SGPT) 14, Alkaline Phosphatase 70, Total Protein 6.4, Albumin 3.0L Laboratory Tests 06/10/23 16:28 06/11/23 04:30 A/P-Cardiology Assessment/Admission Diagnosis NOA on CKD 3b - managed by Dr Vilchis 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 Kaur showed calcified coronary system with mild diffuse ectasia and slow flow diffusely d/t small vessel dz. Normal LVEDP Mildly elevated BNP (probably due to CKD) w/o clinical evidence of CHF - BNP during this hospitalization is in the 300s as it was during the hospitalization of May 2023 - echo on 05-06-23: LVEF 55-60%, grade 2 diastolic dysfunction, mildly dilated LA, mild MR, mod AI Discussion and Recomendations * D/c beta-miah because bp is low normal * Continue long-acting dilt for vent rate control during A Fib * Continue apixaban for stroke prophylaxis - dose adjusted to age and renal function * Dr Vilchis is managing patient's renal failure. We also recommend that he be evaluated for sepsis * Ok to continue iv fluids from cardiac standpoint * Monitor labs RACHEL LOUIS MD [facility] Jun 11, 2023 09:29
[2023-06-11 12:02] VITALS: BP 94/51
--- NOTE | 2023-06-11 13:04 | History & Physical ---
AMAIRANI KERR 06/11/23 1304: History of Present Illness History of Present Illness Reason for visit/HPI 82-year-old male with h/o CKD & CHF presents with SOB. SOB started 5 days ago and he has a mild cough with it. The cough is worse when he lays down and when he is talking. Drinking water helps moisten his mouth and dampens the cough and sitting up helps. All the coughing is making his stomach hurt. Patient has swelling of both legs and he states that only his right leg hurts and there is no pain with his left leg. He reported no other pain but did state he had some chills. Date of Admission Jun 10, 2023 at 20:13 Date Seen by a Provider: Jun 11, 2023 Time Seen by a Provider: 12:30 I consulted on this patient on 06/11/23 12:50 Attending Physician Loida Vilchis DO Admitting Physician Admitting Physician: Loida Vilchis DO Attending Physician: Loida Vilchis DO Consult Allergies and Home Medications Allergies Coded Allergies: Sulfa (Sulfonamide Antibiotics) (Unverified Allergy, Unknown, 10/10/19) Patient Home Medication List Home Medication List Reviewed: Yes Acetaminophen (Acetaminophen) 325 Mg Tablet, 650 MG PO Q4H PRN for TEMPERATURE Prescribed by: LOIDA VILCHIS on 05/12/231038 Last Action: Held Apixaban (Eliquis) 2.5 Mg Tablet, 2.5 MG PO BID Prescribed by: LOIDA VILCHIS on 05/12/231038 Last Action: Held Aspirin (Aspirin EC) 81 Mg Tablet.dr, 81 MG PO DAILY Prescribed by: LOIDA VILCHIS on 05/12/231038 Last Action: Continued Carvedilol (Carvedilol) 25 Mg Tablet, 25 MG PO BID Prescribed by: LOIDA VILCHIS on 05/12/231038 Last Action: Converted Cetirizine HCl (Cetirizine HCl) 10 Mg Tablet, 10 MG PO DAILY Prescribed by: LOIDA VILCHIS on 05/12/231038 Last Action: Converted Diltiazem HCl (Diltiazem 24Hr ER) 180 Mg Cap.er.24h, 180 MG PO DAILY Prescribed by: LOIDA VILCHIS on 05/12/231038 Last Action: Continued Docusate Sodium (Docusate Sodium) 100 Mg Capsule, 100 MG PO BID Prescribed by: LOIDA VILCHIS on 05/12/231038 Last Action: Continued Finasteride (Finasteride) 5 Mg Tablet, 5 MG PO DAILY Prescribed by: LOIDA VILCHIS on 05/12/231038 Last Action: Continued Fluticasone Propionate (Fluticasone Propionate) 50 Mcg/Actuation [place].susp, 0 SPRAY NS DAILY Prescribed by: LOIDA VILCHIS on 05/12/231038 Last Action: Continued Furosemide (Furosemide) 40 Mg Tablet, 40 MG PO DAILY Prescribed by: LOIDA VILCHIS on 05/12/231038 Last Action: Held Hydralazine HCl (Hydralazine HCl) 50 Mg Tablet, 50 MG PO 0000,0300,1600 Prescribed by: LOIDA VILCHIS on 05/12/231038 Last Action: Converted Insulin Detemir (Levemir Flexpen) 100 Unit/Ml (3 Ml) Insuln.pen, 25 UNIT SQ BID Prescribed by: LOIDA VILCHIS on 05/12/231038 Last Action: Held Insulin Lispro (Insulin Lispro Kwikpen U-100) 100 Unit/Ml Insuln.pen, 3 UNITS SC AC Prescribed by: LOIDA VILCHIS on 05/12/231038 Last Action: Held Isosorbide Mononitrate (Isosorbide Mononitrate ER) 60 Mg Tab, 120 MG PO DAILY Prescribed by: LOIDA VILCHIS on 05/12/231038 Last Action: Continued Montelukast Sodium (Montelukast Sodium) 10 Mg Tablet, 10 MG PO HS Prescribed by: LOIDA VILCHIS on 05/12/231038 Last Action: Continued Omeprazole (Omeprazole) 40 Mg Capsule.dr, 40 MG PO DAILY Prescribed by: LOIDA VILCHIS on 05/12/231038 Last Action: Converted Sennosides/Docusate Sodium (Stimulant Laxative Plus Tablet) 8.6 Mg-50 Mg Tablet, 17.2 MG PO DAILY Prescribed by: LOIDA VILCHIS on 05/12/231038 Last Action: Continued Tamsulosin HCl (Flomax) 0.4 Mg Cap, 0.8 MG PO DAILY Prescribed by: LOIDA VILCHIS on 05/12/231038 Last Action: Continued Trazodone HCl (Trazodone HCl) 50 Mg Tablet, 50 MG PO HS Prescribed by: LOIDA VILCHIS on 05/12/231038 Last Action: Continued Vit C/E/Zn/Coppr/Lutein/Zeaxan (Preservision Areds 2 Softgel) 250MG-90MG Capsul e, 1 EACH PO DAILY Prescribed by: LOIDA VILCHIS on 05/12/231038 Last Action: Converted Past Zefrqik-Cnhgwl-Edralz Hx Patient Social History Tobacco Use?: No Smoking Status: Never a Smoker Smokeless Tobacco Frequency: Never a User Use of E-Cig and/or Vaping Pelon: Never a User Substance use?: No Alcohol Use?: No Pt feels they are or have been: Yes Immunizations Up To Date Date of Influenza Vaccine: Sep 10, 2020 First/Initial COVID19 Vaccinat: RECEIVED, UNK WHEN Second COVID19 Vaccination Zoltan: RECEIVED, UNK WHEN Tetanus Booster (TDap): Unknown Date of Pneumonia Vaccine: Oct 10, 2013 Seasonal Allergies Seasonal Allergies: No Current Status Advance Directives: No Communicates: Verbally Primary Language: Hungarian Preferred Spoken Language: Hungarian Is interpretation needed?: No Sensory deficits: Vision impairment Implanted or Applied Medical D: Insulin pump Past Medical History Surgeries: Cardiac Pneumonia Chronic Edema/Swelling, Coronary Artery Disease, Heart Attack, High Cholesterol, Hypertension Neuropathy Prostate Problems, Renal Failure Diverticulosis, Gall Bladder Disease Diabetes, Insulin dep Loss of Vision: Denies Hearing Impairment: Denies Blood Disorders: No Family Medical History Cardiovascular disease 19 FATHER Hypertension 19 FATHER No Pertinent Family Hx, CAD Over 55 Years Old, Hypertension PAST SURGICAL HISTORY: -CARDIAC CATH 11/09/19--DIFFUSELY CALCIFIED CORONARY ARTERIES, SMALL VESSEL DISEASE, NO INTERVENTION - Review of Systems Constitutional: chills EENTM: no symptoms reported Respiratory: cough, short of breath Cardiovascular: no symptoms reported, edema Gastrointestinal: see HPI (Stomach pain from coughing ) Genitourinary: no symptoms reported Musculoskeletal: muscle pain (Right leg pain) Skin: no symptoms reported Psychiatric/Neurological: No Symptoms Reported Physical Exam Vital Signs Vital Signs - First Documented 06/10/23 06/11/23 16:25 00:00 Temp 36.3 Pulse 75 Resp 18 B/P (MAP) 121/64 (83) Pulse Ox 97 O2 Delivery Nasal Cannula O2 Flow Rate 2.00 Capillary Refill : Less Than 3 Seconds Height, Weight, BMI Height: 5'7.00" Weight: 200lbs. oz. 90.066731yr; 44.94 BMI Method:Estimated General Appearance: No Apparent Distress, Chronically ill Eyes: Bilateral Eye Normal Inspection, Bilateral Eye PERRL, Bilateral Eye EOMI HEENT: PERRL/EOMI, Pharynx Normal, Moist Mucous Membranes Respiratory: No Accessory Muscle Use, No Respiratory Distress Extremity: Normal Capillary Refill, Normal Inspection, Other (Edema and right leg pain) Neurologic/Psychiatric: Alert, Oriented x3, Normal Mood/Affect Skin: Normal Color Assessment/Plan Assessment and Plan Assessment: Acute on chronic renal failure History urinary obstruction secondary to prostate issues BNP is elevated (no evidence of CHF per cardiac consult) Diabetes, insulin dep. CKD Plan: Continue IVF Continue oxygen delivery Social service & dietary consult Discussion of moving to med-surg Admission Diagnosis Admission Status: Inpatient Order (span 2 midnights) Reason for Inpatient Admission: Renal failure with GFR of 28 LOIDA VILCHIS DO 06/11/23 1408: Allergies and Home Medications Allergies Coded Allergies: Sulfa (Sulfonamide Antibiotics) (Unverified Allergy, Unknown, 10/10/19) Patient Home Medication List Acetaminophen (Acetaminophen) 325 Mg Tablet, 650 MG PO Q4H PRN for TEMPERATURE Prescribed by: LOIDA VILCHIS on 05/12/231038 Last Action: Held Apixaban (Eliquis) 2.5 Mg Tablet, 2.5 MG PO BID Prescribed by: LOIDA VILCHIS on 05/12/231038 Last Action: Held Aspirin (Aspirin EC) 81 Mg Tablet.dr, 81 MG PO DAILY Prescribed by: LOIDA VILCHIS on 05/12/231038 Last Action: Continued Carvedilol (Carvedilol) 25 Mg Tablet, 25 MG PO BID Prescribed by: LOIDA VILCHIS on 05/12/231038 Last Action: Converted Cetirizine HCl (Cetirizine HCl) 10 Mg Tablet, 10 MG PO DAILY Prescribed by: LOIDA VILCHIS on 05/12/231038 Last Action: Converted Diltiazem HCl (Diltiazem 24Hr ER) 180 Mg Cap.er.24h, 180 MG PO DAILY Prescribed by: LOIDA VILCHIS on 05/12/231038 Last Action: Continued Docusate Sodium (Docusate Sodium) 100 Mg Capsule, 100 MG PO BID Prescribed by: LOIDA VILCHIS on 05/12/231038 Last Action: Continued Finasteride (Finasteride) 5 Mg Tablet, 5 MG PO DAILY Prescribed by: LOIDA VILCHIS on 05/12/231038 Last Action: Continued Fluticasone Propionate (Fluticasone Propionate) 50 Mcg/Actuation [place].susp, 0 SPRAY NS DAILY Prescribed by: LOIDA VILCHIS on 05/12/231038 Last Action: Continued Furosemide (Furosemide) 40 Mg Tablet, 40 MG PO DAILY Prescribed by: LOIDA VILCHIS on 05/12/231038 Last Action: Held Hydralazine HCl (Hydralazine HCl) 50 Mg Tablet, 50 MG PO 0000,0300,1600 Prescribed by: LOIDA VILCHIS on 05/12/231038 Last Action: Converted Insulin Detemir (Levemir Flexpen) 100 Unit/Ml (3 Ml) Insuln.pen, 25 UNIT SQ BID Prescribed by: LOIDA VILCHIS on 05/12/231038 Last Action: Held Insulin Lispro (Insulin Lispro Kwikpen U-100) 100 Unit/Ml Insuln.pen, 3 UNITS SC AC Prescribed by: LIODA VILCHIS on 05/12/231038 Last Action: Held Isosorbide Mononitrate (Isosorbide Mononitrate ER) 60 Mg Tab, 120 MG PO DAILY Prescribed by: LOIDA VILCHIS on 05/12/231038 Last Action: Continued Montelukast Sodium (Montelukast Sodium) 10 Mg Tablet, 10 MG PO HS Prescribed by: LOIDA VILCHIS on 05/12/231038 Last Action: Continued Omeprazole (Omeprazole) 40 Mg Capsule.dr, 40 MG PO DAILY Prescribed by: LOIDA VILCHIS on 05/12/231038 Last Action: Converted Sennosides/Docusate Sodium (Stimulant Laxative Plus Tablet) 8.6 Mg-50 Mg Tablet, 17.2 MG PO DAILY Prescribed by: LOIDA VILCHIS on 05/12/231038 Last Action: Continued Tamsulosin HCl (Flomax) 0.4 Mg Cap, 0.8 MG PO DAILY Prescribed by: LOIDA VILCHIS on 05/12/231038 Last Action: Continued Trazodone HCl (Trazodone HCl) 50 Mg Tablet, 50 MG PO HS Prescribed by: LOIDA VILCHIS on 05/12/231038 Last Action: Continued Vit C/E/Zn/Coppr/Lutein/Zeaxan (Preservision Areds 2 Softgel) 250MG-90MG Capsule, 1 EACH PO DAILY Prescribed by: LOIDA VILCHIS on 05/12/231038 Last Action: Converted Past Jzfgiav-Wprrck-Mmjhcd Hx Patient Social History Marrital Status: single Employed/Student: retired Past Medical History Atrial Fibrillation Benign Prostatic Hyperpl, Bladder Infection, Renal Failure Family Medical History Cardiovascular disease 19 FATHER Hypertension 19 FATHER Review of Systems Constitutional: see HPI Physical Exam General Appearance: No Apparent Distress, WD/WN, Chronically ill, Obese Respiratory: Lungs Clear, Normal Breath Sounds Cardiovascular: Regular Rate, Rhythm Neurologic/Psychiatric: Alert, Oriented x3, Depressed Affect Assessment/Plan Assessment and Plan Social work consult for placement in a fdc long-term Admission Diagnosis Admission Status: Observation Supervisory-Addendum Brief Verification & Attestation Participated in pt care: history, MDM, physical Personally performed: exam, history, MDM, supervision of care Care discussed with: Medical Student Procedures: n/a Results interpretation: Verified all documentation Verification and Attestation of Medical Student E/M Service A medical student performed and documented this service in my presence. I reviewed and verified all information documented by the medical student and made modifications to such information, when appropriate. I personally performed the physical exam and medical decision making. Loida Vilchis, Jun 11, 2023,14:07 AMAIRANI KERR Jun 11, 2023 13:04 LOIDA VILCHIS DO Jun 11, 2023 14:08
[2023-06-11] MEDS ORDERED: INSU100I60 SC (15:05)
--- NOTE | 2023-06-11 15:30 | Physical Therapy Progress Note ---
Therapy Progress Note Attempted to see patient for PT evaluation. Patient refused. Will attempt again tomorrow. CATRACHITO KNIGHT PT Jun 11, 2023 15:30
[2023-06-11 16:00] VITALS: BP 93/56
[2023-06-11 19:57] VITALS: BP 95/59
[2023-06-11] MEDS: MONTELUKAST 10 MG TABLET PO SCH (20:08)
[2023-06-12] VITALS (7 sets, daily range): BP systolic 102–150; BP diastolic 53–71
[2023-06-12 04:47] LABS: BASOPHILS % (AUTO) 0 % (0-10); EOSINOPHILS # (AUTO) 0.2 10^3/uL (0.0-0.3); EOSINOPHILS % (AUTO) 3 % (0-10); HEMATOCRIT 34 % (40-54); HEMOGLOBIN 10.4 g/dL (13.3-17.7); LYMPHOCYTES # (AUTO) 1.7 10^3/uL (1.0-4.0); LYMPHOCYTES % (AUTO) 24 % (12-44); MEAN CORPUSCULAR HEMOGLOBIN 29 pg (25-34); MEAN CORPUSCULAR HGB CONC 30 g/dL (32-36); MEAN CORPUSCULAR VOLUME 97 fL (80-99); MEAN PLATELET VOLUME 10.2 fL (9.0-12.2); MONOCYTES # (AUTO) 0.9 10^3/uL (0.0-1.0); MONOCYTES % (AUTO) 13 % (0-12); NEUTROPHILS # (AUTO) 4.2 10^3/uL (1.8-7.8); NEUTROPHILS % (AUTO) 60 % (42-75); PLATELET COUNT 209 10^3/uL (130-400)
[2023-06-12 05:09] LABS: BILIRUBIN,TOTAL 0.4 MG/DL (0.1-1.0); CALCIUM 7.9 MG/DL (8.5-10.1); CREATININE SERUM 2.36 MG/DL (0.60-1.30); POTASSIUM 5.1 MMOL/L (3.6-5.0); TOTAL PROTEIN 6.4 GM/DL (6.4-8.2)
[2023-06-12] MEDS: ACETAMINOPHEN 325 MG TABLET PO PRN (06:11)
[2023-06-12] MEDS: PANTOPRAZOLE 40 MG (PROTONIX) TAB PO SCH (06:11)
[2023-06-12] MEDS: THERAPEUTIC MULTIVITAMIN W/MINERALS TABLET PO SCH (06:11)
[2023-06-12] MEDS: inSUlin ASPART 1 UNIT/0.01 ML (PER UNIT) SC SCH ×4 (06:12→20:49)
[2023-06-12] MEDS: NS IV 1000 ML 1,000 ML IV SCH (06:14)
--- NOTE | 2023-06-12 08:02 | Physical Therapy Evaluation ---
PT Evaluation-General Medical Diagnosis Admission Date Jun 10, 2023 at 20:13 Medical Diagnosis: renal failure Onset Date: Jun 10, 2023 Therapy Diagnosis Therapy Diagnosis: generalized weakness/impair mobility Height/Weight Height (Feet): 5 Height (Inches): 7.00 Weight (Pounds): 200 Precautions Precautions/Isolations: Standard Precautions Weight Bear Status Right Lower Extremity: Right Weight Bearing/Tolerated Left Lower Extremity: Left Weight Bearing/Tolerated Referral Physician: Mame Reason for Referral: Evaluation/Treatment Medical History Pertinent Medical History: CAD, DM, HTN, AR, Neuropathy, Renal Insufficiency Current History ER secondary to SOA Reviewed History: Yes Social History Home: Single Level Current Living Status: Alone Entry Into Home: Ramp Prior Prior Level of Function SCALE: Activities may be completed with or without assistive devices. 9-Ymypgkzola-lfyggmg completes the activity by him/herself with no assistance from a helper. 5-Set-up or Clean-up Assistance-helper sets up or cleans up; patient completes activity. [place] assists only prior to or following the activity. 4-Supervision or Touching Assistance-helper provides verbal cues and/or touching/steadying and/or contact guard assistance as patient completes activity. Assistance may be provided throughout the activity or intermittently. 3-Partial/Moderate Assistance-helper does LESS THAN HALF the effort. [place] lifts, holds or supports trunk or limbs, but provides less than half the effort. 2-Substantial/Maximal Assistance-helper does MORE THAN HALF the effort. [place] lifts or holds trunk or limbs and provides more than half the effort. 7-Ffvkiusdd-cjchoc does ALL the effort. Patient does none of the effort to complete the activity. Or, the assistance of 2 or more helpers is required for the patient to complete the activity. If activity was not attempted, code reason: 7-Patient Refused. 9-Not Applicable-not attempted and the patient did not perform the activity before the current illness, exacerbation or injury. 10-Not Attempted due to Environmental Limitations-(lack of equipment, weather restraints, etc.). 88-Not Attempted due to Medical Conditions or Safety Concerns. Bed Mobility: 6 Transfers (B,C,W/C): 6 Gait: 6 Indoor Mobility (Ambulation): Independent Prior Devices Use: None PT Evaluation-Current Subjective Patient agrees to PT. Noted total body edema. RN present Objective Patient Orientation: Normal For Age Attachments: Oxygen (2L), Finch Catheter, IV ROM/Strength ROM Lower Extremities bilateral LE WFL Strength Lower Extremities 3+/5 grossly bilateral LE all planes Integumentary/Posture Integumentary refer to nursing notes Bladder Incontinence: Finch Cath Posture WFL Neuromuscular (Tone, Coordination, Reflexes) grossly intact Sensory Vision: Functional Hearing: Functional Transfers Sit to Stand (QC): 3 Chair/Kmg-rb-Bhdmx Xfer(QC): 4 Gait Mode of Locomotion: Walk Anticipated Mode of Locomotion: Walk Walk 10 feet (QC): 4 Walk 50 ft with 2 Turns(QC): 88 Walk 150 ft (QC): 88 Distance: 20' Gait Assistive Device: FWW Comments/Gait Description slow, steady gait sequenc Balance Sitting Static: Normal Sitting Dynamic: Normal Standing Static: Fair Standing Dynamic: Fair Assessment/Needs Patient will benefit from skilled PT to address functional strength and mobility to improve current LOF to safely return to home at maximum LOF. Rehab Potential: Fair PT Flight Simulator Teacher Goals Flight Simulator Teacher Goals PT Flight Simulator Teacher Goals Time Frame: Jun 21, 2023 Roll Left & Right (QC): 6 Sit to Lying (QC): 6 Lying-Sitting on Side/Bed(QC): 6 Sit to Stand (QC): 6 Chair/Uco-wp-Gdhov Xfer(QC): 6 Toilet Transfer (QC): 6 Walk 10 feet (QC): 5 Walk 50ft with 2 Turns (QC): 5 Walk 150 ft (QC): 5 PT Plan Problem List Problem List: Activity Tolerance, Functional Strength, Safety, Balance, Gait, Transfer, Bed Mobility Treatment/Plan Treatment Plan: Continue Plan of Care Treatment Plan: Bed Mobility, Education, Functional Activity Shannon, Functional Strength, Gait, Safety, Therapeutic Exercise, Transfers Treatment Duration: Jun 21, 2023 Frequency: 6 times per week Estimated Hrs Per Day: .25 hour per day Patient and/or Family Agrees t: Yes Time Time In: 720 Time Out: 733 DATE: Jun 12, 2023 Total Billed Treatment Time: 13 Total Billed Treatment 1 visit EVMod 13 min RANJITH FIERRO PT Jun 12, 2023 08:02
[2023-06-12] MEDS: SENNA W/DOCUSATE (SENOKOT S) TABLET PO SCH (08:09)
[2023-06-12] MEDS: DOCUSATE SODIUM 100 MG CAPSULE PO SCH ×2 (08:09→20:48)
[2023-06-12] MEDS: ASPIRIN 81 MG CHEWABLE TABLET PO SCH (08:09)
[2023-06-12] MEDS: ISOSORBIDE MONONITRATE 60 MG TABLET PO SCH (08:09)
[2023-06-12] MEDS: TAMSULOSIN 0.4 MG (FLOMAX) CAP PO SCH (08:09)
[2023-06-12] MEDS: APIXABAN 2.5 MG TABLET PO SCH ×2 (08:09→20:48)
[2023-06-12] MEDS: SENNOSIDES 8.6 MG (SENOKOT) TAB PO SCH ×2 (08:09→20:48)
[2023-06-12] MEDS: dilTIAZem ER 180 MG CAPSULE PO SCH (08:09)
[2023-06-12] MEDS: FINASTERIDE 5 MG TABLET PO SCH (08:09)
[2023-06-12] MEDS: FLUTICASONE NASAL SPRAY (120 SPRAYS) NS SCH (08:10)
--- NOTE | 2023-06-12 10:48 | Diagnostic Imaging Report ---
INDICATION: Chest pain. DVT history of lower extremity edema. COMPARISON: 05/05/2023 TECHNIQUE: Duplex, hayes-scale and color-flow imaging of the bilateral lower extremity venous system was performed. FINDINGS: The common femoral vein, superficial femoral vein, profunda femoris, and popliteal veins are normal. These vessels show normal compressibility, color flow, and doppler augmentation. The deep calf veins, although not very well seen, demonstrate no distinct intraluminal thrombus. IMPRESSION: Negative venous Doppler of the bilateral lower extremities. Dictated by: Dictated on workstation # [id number]
--- NOTE | 2023-06-12 13:02 | Progress Note - Cardiology ---
Cardiology SOAP Progress Note Subjective: No shortness of breath at rest No palp or cp or syncope Chronic, bilat leg swelling. R>L No n/v/d No focal weakness Gen weakness and malaise present Objective: I&O/Vital Signs 06/12/23 06/12/23 06/12/23 06/12/23 01:00 03:48 07:12 07:53 Temp 36.2 36.4 Pulse 63 72 79 83 Resp 12 24 B/P (MAP) 119/64 (82) 150/71 (97) Pulse Ox 98 97 O2 Delivery Nasal Cannula O2 Flow Rate 2.00 06/12/23 06/12/23 06/12/23 08:00 11:44 12:03 Temp 36.2 Pulse 81 86 Resp 21 B/P (MAP) 102/67 (79) Pulse Ox 94 97 O2 Delivery Nasal Cannula O2 Flow Rate 2.00 06/12/23 00:00 Intake Total 1900 ml Output Total 500 ml Balance 1400 ml Weight (Pounds): 200 Weight (Calculated Kilograms): 90.674829 Constitutional: AAO x 3, well-developed, well-nourished Respiratory: No accessory muscle use; chest expansion is symmetric, chest is bilaterally symmetric, other (fair, bilat air entry, diminished at the bases; prolonged exp phase) Cardiovascular: regular rate-rhythm, S1 and S2, systolic murmur (soft WANDA at card base) Gastrointestional: No tender; soft; No guarding, No rebound; audible bowel sounds Extremities: other (mild leg swelling); No clubbing, No cyanosis Neurologic/Psychiatric: oriented x 3, other (moves all limbs equally) Skin: normal color, warm/dry; No cyanosis, No cool, No diaphoresis, No rash on exposed areas, No ulcerations on exposed areas Results/Procedures: Labs Laboratory Tests 06/12/23 04:26: White Blood Count 7.0, Red Blood Count 3.54L, Hemoglobin 10.4L, Hematocrit 34L, Mean Corpuscular Volume 97, Mean Corpuscular Hemoglobin 29, Mean Corpuscular Hemoglobin Concent 30L, Red Cell Distribution Width 14.6H, Platelet Count 209, Mean Platelet Volume 10.2, Immature Granulocyte % (Auto) 0, Neutrophils (%) (Auto) 60, Lymphocytes (%) (Auto) 24, Monocytes (%) (Auto) 13H, Eosinophils (%) (Auto) 3, Basophils (%) (Auto) 0, Neutrophils # (Auto) 4.2, Lymphocytes # (Auto) 1.7, Monocytes # (Auto) 0.9, Eosinophils # (Auto) 0.2, Basophils # (Auto) 0.0, Immature Granulocyte # (Auto) 0.0, Sodium Level 141, Potassium Level 5.1H, Chlor leta Level 108H, Carbon Dioxide Level 28, Anion Gap 5, Blood Urea Nitrogen 32H, Creatinine 2.36H, Estimat Glomerular Filtration Rate 26, BUN/Creatinine Ratio 14, Glucose Level 112H, Calcium Level 7.9L, Corrected Calcium 8.7, Total Bilirubin 0.4, Aspartate Amino Transf (AST/SGOT) 25, Alanine Aminotransferase (ALT/SGPT) 20, Alkaline Phosphatase 79, Total Protein 6.4, Albumin 3.0L Laboratory Tests 06/10/23 16:28 06/11/23 04:30 06/12/23 04:26 A/P: Assessment: NOA on CKD 3b - managed by Dr Vilchis 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 Kaur showed calcified coronary system with mild diffuse ectasia and slow flow diffusely d/t small vessel dz. Normal LVEDP Mildly elevated BNP (probably due to CKD) w/o clinical evidence of CHF - BNP during this hospitalization is in the 300s as it was during the hospitalization of May 2023 - echo on 05-06-23: LVEF 55-60%, grade 2 diastolic dysfunction, mildly dilated LA, mild MR, mod AI Chronic, marked leg swelling, R>L - likely due to venous insuff - leg venous Duplex on 06/12/23 did not show DVT Plan: * Beta-miah d/c'd because bp is low normal * Continue long-acting dilt for vent rate control during A Fib * Continue apixaban for stroke prophylaxis - dose adjusted to age and renal function * Dr Vilchis is managing patient's renal failure. We also recommend that he be evaluated for sepsis * Reduce if fluids (because of leg swelling) * Leg venous Duplex ordered and reviewed and results noted (see above) * Monitor labs and maintain electrolyte and acid-base balance (Dr Vilchis managing) RACHEL LOUIS MD FACP FACC CCDS Jun 12, 2023 13:02
--- NOTE | 2023-06-12 14:18 | Progress Note ---
AMAIRANI KERR 06/12/23 1418: Subjective Date Seen by a Provider: Jun 12, 2023 Time Seen by a Provider: 11:00 Subjective/Events-last exam Patient is fairing a bit better than yesterday. He was quite talkative and was asking about his condition and what was being done and if he was going to be moved to [facility]. He has not been able to ambulate, but he was able to get out of bed and sit in the recliner. He is still having a cough which is worse when his mouth is dry. Fluids help dampen his cough. He is still experiencing abdominal pain from all the coughing. When asked if he was still having right leg pain, he reported that there is no pain, but his leg is uncomfortable and di fficult to move due to all the fluid accumulation and swelling. Patient reports that his last BM was two days ago. Review of Systems General: No Chills, No Night Sweats; Fatigue, Malaise; No Appetite, No Other HEENT: No Head Aches, No Visual Changes, No Eye Pain, No Ear Pain, No Dysphasia, No Sinus Congestion, No Post Nasal Drip, No Sore Throat, No Other Pulmonary: No Dyspnea; Cough; No Pleuritic Chest Pain, No Other Cardiovascular: Edema (Both lower extremity edema); No: Chest Pain, Palpitations, Orthopnea, Paroxysmal Noc. Dyspnea, Lt Headedness, Other Gastrointestinal: Abdominal Pain (From coughing); No: Nausea, Vomiting, Diarrhea, Constipation, Melena, Hematochezia, Other Genitourinary: No Dysuria, No Frequency, No Incontinence, No Hematuria, No Retention Musculoskeletal: No: other, neck pain, shoulder pain, arm pain, back pain, hand pain, leg pain, foot pain Neurological: No: Weakness, Numbness, Incoordination, Change in speech, Confusion, Seizures, Other Objective Exam Last Set of Vital Signs Vital Signs Date Time Temp Pulse Resp B/P (MAP) Pulse Ox O2 Delivery O2 Flow Rate FiO2 06/12/23 12:03 86 06/12/23 11:44 36.2 21 102/67 (79) 97 06/12/23 08:00 Nasal Cannula 2.00 Capillary Refill : Less Than 3 Seconds I&O Intake and Output 06/12/23 00:00 Intake Total 2250 ml Output Total 850 ml Balance 1400 ml Intake Oral 1250 ml IV Total 1000 ml Output Urine Total 850 ml General: Alert, Oriented X3, Cooperative, Mild Distress HEENT: Atraumatic, PERRLA, EOMI, Mucous Memb Moist/[place] Lungs: Normal Air Movement Extremities: No Clubbing, No Cyanosis, Other (Edema of lower extremities R>L) Neuro: Normal Speech Psych/Mental Status: Mental Status NL, Mood NL Results Lab Laboratory Tests 06/12/23 04:26: White Blood Count 7.0, Red Blood Count 3.54L, Hemoglobin 10.4L, Hematocrit 34L, Mean Corpuscular Volume 97, Mean Corpuscular Hemoglobin 29, Mean Corpuscular Hemoglobin Concent 30L, Red Cell Distribution Width 14.6H, Platelet Count 209, Mean Platelet Volume 10.2, Immature Granulocyte % (Auto) 0, Neutrophils (%) (Auto) 60, Lymphocytes (%) (Auto) 24, Monocytes (%) (Auto) 13H, Eosinophils (%) (Auto) 3, Basophils (%) (Auto) 0, Neutrophils # (Auto) 4.2, Lymphocytes # (Auto) 1.7, Monocytes # (Auto) 0.9, Eosinophils # (Auto) 0.2, Basophils # (Auto) 0.0, Immature Granulocyte # (Auto) 0.0, Sodium Level 141, Potassium Level 5.1H, Chloride Level 108H, Carbon Dioxide Level 28, Anion Gap 5, Blood Urea Nitrogen 32H, Creatinine 2.36H, Estimat Glomerular Filtration Rate 26, BUN/Creatinine Ratio 14, Glucose Level 112H, Calcium Level 7.9L, Corrected Calcium 8.7, Total Bilirubin 0.4, Aspartate Amino Transf (AST/SGOT) 25, Alanine Aminotransferase (ALT/SGPT) 20, Alkaline Phosphatase 79, Total Protein 6.4, Albumin 3.0L Assessment/Plan Assessment/Plan Assess & Plan/Chief Complaint Assessment: Acute on chronic renal failure History of urinary obstruction secondary to prostate issues BNP slightly elevated Marked lower extremity swelling (Venous doppler showed no DVT) Diabetes, insulin dep. CKD Plan: Continue O2 delivery via nasal cannula D/c IVF Move to [facility] Monitor closely Clinical Quality Measures Admission Status Admission Dx Assessment: Acute on chronic renal failure History urinary obstruction secondary to prostate issues BNP is elevated (no evidence of CHF per cardiac consult) Diabetes, insulin dep. CKD Plan: Continue IVF Continue oxygen delivery Social service & dietary consult Discussion of moving to med-surg LOIDA OWUSU DO 06/12/237: Supervisory-Addendum Brief Verification & Attestation Participated in pt care: history, MDM, physical Personally performed: exam, history, MDM, supervision of care Care discussed with: Medical Student Procedures: n/a Results interpretation: Verified all documentation Verification and Attestation of Medical Student E/M Service A medical student performed and documented this service in my presence. I reviewed and verified all information documented by the medical student and made modifications to such information, when appropriate. I personally performed the physical exam and medical decision making. Loida Owusu, Jun 12, 2023,22:07 AMAIRANI KERR Jun 12, 2023 14:18 LOIDA OWUSU DO Jun 12, 2023 22:07
[2023-06-12] MEDS: traZODone 50 MG (DESYREL) TAB PO SCH (20:48)
[2023-06-12] MEDS: MONTELUKAST 10 MG TABLET PO SCH (20:48)
[2023-06-13 04:31] VITALS: BP_SYST 160; BP_DIAS 54; BP_DIAS 83
[2023-06-13] MEDS: RT-ALBUTEROL SULF 2.5 MG/3 ML PRE-MIX VIAL INH PRN ×2 (04:40→11:13)
[2023-06-13] MEDS ORDERED: FUROSEMIDE INJECTION 40 MG/4 ML VIAL IVP ONE (05:15)
[2023-06-13] MEDS: PANTOPRAZOLE 40 MG (PROTONIX) TAB PO SCH (05:36)
[2023-06-13] MEDS: THERAPEUTIC MULTIVITAMIN W/MINERALS TABLET PO SCH (05:37)
[2023-06-13 05:56] LABS: BASOPHILS % (AUTO) 0 % (0-10); EOSINOPHILS # (AUTO) 0.3 10^3/uL (0.0-0.3); EOSINOPHILS % (AUTO) 3 % (0-10); HEMATOCRIT 35 % (40-54); HEMOGLOBIN 10.8 g/dL (13.3-17.7); LYMPHOCYTES # (AUTO) 1.7 10^3/uL (1.0-4.0); LYMPHOCYTES % (AUTO) 18 % (12-44); MEAN CORPUSCULAR HEMOGLOBIN 29 pg (25-34); MEAN CORPUSCULAR HGB CONC 31 g/dL (32-36); MEAN CORPUSCULAR VOLUME 96 fL (80-99); MEAN PLATELET VOLUME 9.7 fL (9.0-12.2); MONOCYTES # (AUTO) 0.9 10^3/uL (0.0-1.0); MONOCYTES % (AUTO) 10 % (0-12); NEUTROPHILS # (AUTO) 6.4 10^3/uL (1.8-7.8); NEUTROPHILS % (AUTO) 68 % (42-75); PLATELET COUNT 213 10^3/uL (130-400); WHITE BLOOD COUNT 9.4 10^3/uL (4.3-11.0)
[2023-06-13] MEDS: inSUlin ASPART 1 UNIT/0.01 ML (PER UNIT) SC SCH ×4 (06:05→21:24)
[2023-06-13 06:13] LABS: ALBUMIN 3.2 GM/DL (3.2-4.5)
[2023-06-13 06:14] LABS: POTASSIUM 4.9 MMOL/L (3.6-5.0)
[2023-06-13 06:15] LABS: CALCIUM 8.3 MG/DL (8.5-10.1)
[2023-06-13 06:18] LABS: BILIRUBIN,TOTAL 0.6 MG/DL (0.1-1.0)
[2023-06-13 06:19] LABS: CREATININE SERUM 2.39 MG/DL (0.60-1.30)
[2023-06-13 07:54] VITALS: BP 172/81
[2023-06-13] MEDS: APIXABAN 2.5 MG TABLET PO SCH ×2 (08:15→21:23)
[2023-06-13] MEDS: dilTIAZem ER 180 MG CAPSULE PO SCH (08:15)
[2023-06-13] MEDS: FINASTERIDE 5 MG TABLET PO SCH (08:15)
[2023-06-13] MEDS: DOCUSATE SODIUM 100 MG CAPSULE PO SCH ×2 (08:15→21:32)
[2023-06-13] MEDS: TAMSULOSIN 0.4 MG (FLOMAX) CAP PO SCH (08:15)
[2023-06-13] MEDS: ASPIRIN 81 MG CHEWABLE TABLET PO SCH (08:15)
[2023-06-13] MEDS: ISOSORBIDE MONONITRATE 60 MG TABLET PO SCH (08:15)
[2023-06-13] MEDS: SENNA W/DOCUSATE (SENOKOT S) TABLET PO SCH (08:15)
[2023-06-13] MEDS: SENNOSIDES 8.6 MG (SENOKOT) TAB PO SCH ×2 (08:15→21:32)
[2023-06-13] MEDS: FLUTICASONE NASAL SPRAY (120 SPRAYS) NS SCH (08:16)
[2023-06-13] MEDS: LORATADINE 10 MG TABLET PO SCH (08:30)
--- NOTE | 2023-06-13 11:27 | Physical Therapy Daily Note ---
PT Daily Note-Current Subjective Patient requests to go to bed. Noted increase in SOA at rest with O2 in place Pain Section J - Health Conditions 1. Rarely or not at all 2. Occasionally 3. Frequently 4. Almost constantly 8. Unable to answer Pain Effect on Sleep: 8 Pain Interference with Therapy: 8 Pain Interference w/Day-to-Day: 8 Mental Status Patient Orientation: Confused Attachments: Oxygen, Finch Catheter Transfers SCALE: Activities may be completed with or without assistive devices. 4-Cqrrhjldme-bavfnyc completes the activity by him/herself with no assistance from a helper. 5-Set-up or Clean-up Assistance-helper sets up or cleans up; patient completes activity. [place] assists only prior to or following the activity. 4-Supervision or Touching Assistance-helper provides verbal cues and/or leonidas monica/steadying and/or contact guard assistance as patient completes activity. Assistance may be provided throughout the activity or intermittently. 3-Partial/Moderate Assistance-helper does LESS THAN HALF the effort. [place] lifts, holds or supports trunk or limbs, but provides less than half the effort. 2-Substantial/Maximal Assistance-helper does MORE THAN HALF the effort. [place] lifts or holds trunk or limbs and provides more than half the effort. 3-Sezodykdd-vcebgm does ALL the effort. Patient does none of the effort to complete the activity. Or, the assistance of 2 or more helpers is required for the patient to complete the activity. If activity was not attempted, code reason: 7-Patient Refused. 9-Not Applicable-not attempted and the patient did not perform the activity before the current illness, exacerbation or injury. 10-Not Attempted due to Environmental Limitations-(lack of equipment, weather restraints, etc.). 88-Not Attempted due to Medical Conditions or Safety Concerns. Sit to Lying (QC): 2 Sit to Stand (QC): 2 Chair/Seu-or-Qdwpk Xfer(QC): 2 Weight Bearing Right Lower Extremity: Right Weight Bearing/Tolerated Left Lower Extremity: Left Weight Bearing/Tolerated Exercises Seated Therapy Exercises: Ankle pumps, Long arc quads Seated Reps: 10 Assessment Patient tolerated minimal activity and has noticeable increase SOA at rest and with activity. RN notified. Patient also requiring more assist on this date with mobility. Patient unable to ambulate with PT on this date. PT Custodial Goals Stitch Bonding Machine Tender Helper Goals PT Custodial Goals Time Frame: Jun 21, 2023 Roll Left & Right (QC): 6 Sit to Lying (QC): 6 Lying-Sitting on Side/Bed(QC): 6 Sit to Stand (QC): 6 Chair/Ema-di-Ooqdg Xfer(QC): 6 Toilet Transfer (QC): 6 Walk 10 feet (QC): 5 Walk 50ft with 2 Turns (QC): 5 Walk 150 ft (QC): 5 PT Plan Treatment/Plan Treatment Plan: Continue Plan of Care Treatment Plan: Bed Mobility, Education, Functional Activity [place], Functional Strength, Gait, Safety, Therapeutic Exercise, Transfers Treatment Duration: Jun 21, 2023 Frequency: 6 times per week Estimated Hrs Per Day: .25 hour per day Patient and/or Family Agrees t: Yes Time Time In: 1045 Time Out: 1057 DATE: Jun 13, 2023 Total Billed Treatment Time: 12 Total Billed Treatment 1 visit FA 12 min RANJITH FIERRO PT Jun 13, 2023 11:27
[2023-06-13] MEDS ORDERED: BISACODYL 10 MG SUPPOSITORY PR NR (11:30)
--- NOTE | 2023-06-13 12:05 | Progress Note ---
AMAIRANI KERR 06/13/23 1205: Subjective Date Seen by a Provider: Jun 13, 2023 Time Seen by a Provider: 08:30 Subjective/Events-last exam Patient reported that he was feeling terrible. He looked sickly and was confused. Patient stated he threw up this morning and when asked what time, he reported 10:00 am even though it was 8:30 am. He was not having any nausea at the moment. He is experiencing some weakness from not eating anything yet this morning. There is neck pain and back pain, but his cough has improved since yesterday. However, he is still having chills, has not been able to ambulate, and has not had a BM yet. Both legs are still swollen, the left leg appeared to be more swollen than yesterday, and patient reported no leg pain. Review of Systems General: Chills, Fatigue, Malaise HEENT: No Head Aches, No Visual Changes, No Eye Pain, No Ear Pain, No Dysphasia, No Sinus Congestion, No Post Nasal Drip, No Sore Throat, No Other Pulmonary: No Dyspnea; Cough; No Pleuritic Chest Pain; Other (Shortness of breath) Cardiovascular: Edema (R>L, but left leg looked larger than yesterday); No: Chest Pain, Palpitations, Orthopnea, Paroxysmal Noc. Dyspnea, Lt Headedness Gastrointestinal: Abdominal Pain (Still having some pain from the coughing), Constipation; No: Nausea, Vomiting, Diarrhea, Melena, Hematochezia Genitourinary: No Dysuria, No Frequency, No Incontinence, No Hematuria, No Retention Musculoskeletal: neck pain, back pain; No: other, shoulder pain, arm pain, hand pain, leg pain, foot pain Neurological: Confusion (Alert & oriented x2); No: Weakness, Numbness, Incoordination, Change in speech, Seizures, Other Objective Exam Last Set of Vital Signs Vital Signs Date Time Temp Pulse Resp B/P (MAP) Pulse Ox O2 Delivery O2 Flow Rate FiO2 06/13/23 11:20 95 Nasal Cannula 3.00 06/13/23 07:54 37.4 100 22 172/81 (111) Capillary Refill : Less Than 3 Seconds I&O Intake and Output 06/13/23 00:00 Intake Total 1770 ml Output Total 975 ml Balance 795 ml Intake Oral 770 ml IV Total 1000 ml Output Urine Total 975 ml General: Alert, Cooperative, Mild Distress, Other (Oriented x2, confusion) HEENT: Atraumatic, PERRLA, EOMI, Mucous Memb Moist/[place] Extremities: No Clubbing, No Cyanosis Neuro: Normal Speech Psych/Mental Status: Mental Status NL, Mood NL Results Lab Laboratory Tests 06/12/23 16:55: Glucometer 220H 06/12/23 19:27: Glucometer 198H 06/13/23 05:40: White Blood Count 9.4, Red Blood Count 3.67L, Hemoglobin 10.8L, Hematocrit 35L, Mean Corpuscular Volume 96, Mean Corpuscular Hemoglobin 29, Mean Corpuscular Hemoglobin Concent 31L, Red Cell Distribution Width 14.2, Platelet Count 213, Mean Platelet Volume 9.7, Immature Granulocyte % (Auto) 0, Neutrophils (%) (Auto) 68, Lymphocytes (%) (Auto) 18, Monocytes (%) (Auto) 10, Eosinophils (%) (Auto) 3, Basophils (%) (Auto) 0, Neutrophils # (Auto) 6.4, Lymphocytes # (Auto) 1.7, Monocytes # (Auto) 0.9, Eosinophils # (Auto) 0.3, Basophils # (Auto) 0.0, Immature Granulocyte # (Auto) 0.0, Sodium Level 141, Potassium Level 4.9, Chloride Level 107, Carbon Dioxide Level 26, Anion Gap 8, Blood Urea Nitrogen 31H, Creatinine 2.39H, Estimat Glomerular Filtration Rate 26, BUN/Creatinine Ratio 13, Glucose Level 122H, Calcium Level 8.3L, Corrected Calcium 8.9, Total Bilirubin 0.6, Aspartate Amino Transf (AST/SGOT) 23, Alanine Aminotransferase (ALT/SGPT) 24, Alkaline Phosphatase 80, Total Protein 7.0, Albumin 3.2 06/13/23 05:59: Glucometer 113H 06/13/23 08:12: Glucometer 182H 06/13/23 10:59: Glucometer 193H Assessment/Plan Assessment/Plan Assess & Plan/Chief Complaint Assessment: Acute on chronic renal failure History of urinary obstruction secondary to prostate issues HTN of 171/82 this morning Marked lower extremity swelling Diabetes, insulin dep. CKD Plan: Cathartics & laxatives for BM Continue O2 delivery via nasal cannula Monitor BP Clinical Quality Measures Admission Status Admission Dx LOIDA OWUSU 06/14/23 0622: Assessment/Plan Assessment/Plan Assess & Plan/Chief Complaint Updated ginihz-nb-jqm via phone call for 15 minutes and she is now signed on as DPOA since his daughter has not seen him for 15 years and does not even attend to come back when he passes away Patient appears to be more more end stage and I did tell DPOA he was a hospice candidate Patient very declined Supervisory-Addendum Brief Verification & Attestation Participated in pt care: history, MDM, physical Personally performed: exam, history, MDM, supervision of care Care discussed with: Medical Student Procedures: n/a Results interpretation: Verified all documentation Verification and Attestation of Medical Student E/M Service A medical student performed and documented this service in my presence. I reviewed and verified all information documented by the medical student and made modifications to such information, when appropriate. I personally performed the physical exam and medical decision making. Loida Owusu, Jun 14, 2023,06:21 AMAIRANI KERR Jun 13, 2023 12:05 LOIDA OWUSU DO Jun 14, 2023 06:22
[2023-06-13 12:09] VITALS: BP 138/80
--- NOTE | 2023-06-13 16:27 | Progress Note - Cardiology ---
Cardiology SOAP Progress Note Subjective: Gen weakness and malaise No cp or palp or syncope Shortness of breath with mild activity No n/v/d No focal weaknss Objective: I&O/Vital Signs 06/13/23 06/13/23 06/13/23 06/13/23 04:31 07:54 08:25 11:20 Temp 37.2 37.4 Pulse 88 100 Resp 22 22 B/P (MAP) 160/83 (108) 172/81 (111) Pulse Ox 92 92 92 95 O2 Delivery Nasal Cannula Nasal Cannula Nasal Cannula Nasal Cannula O2 Flow Rate 2.00 3.00 3.00 3.00 06/13/23 12:09 Temp 37.3 Pulse 94 Resp 24 B/P (MAP) 138/80 (99) Pulse Ox 91 O2 Delivery Nasal Cannula O2 Flow Rate 3.00 06/13/23 00:00 Intake Total 650 ml Output Total 600 ml Balance 50 ml Weight (Pounds): 200 Weight (Calculated Kilograms): 90.946862 Constitutional: AAO x 3, well-developed, well-nourished Respiratory: No accessory muscle use; chest expansion is symmetric, chest is bilaterally symmetric, other (fair, bilat air entry, diminished at the bases; prolonged exp phase) Cardiovascular: regular rate-rhythm, S1 and S2, systolic murmur (soft WANDA at card base) Gastrointestional: No tender; soft; No guarding, No rebound; audible bowel sounds Extremities: other (moderate leg swelling, non-pitting); No clubbing, No cyanosis Neurologic/Psychiatric: oriented x 3, other (moves all limbs equally) Skin: normal color, warm/dry; No cyanosis, No cool, No diaphoresis, No rash on exposed areas, No ulcerations on exposed areas Results/Procedures: Labs Laboratory Tests 06/12/23 16:55: Glucometer 220H 06/12/23 19:27: Glucometer 198H 06/13/23 05:40: White Blood Count 9.4, Red Blood Count 3.67L, Hemoglobin 10.8L, Hematocrit 35L, Mean Corpuscular Volume 96, Mean Corpuscular Hemoglobin 29, Mean Corpuscular Hemoglobin Concent 31L, Red Cell Distribution Width 14.2, Platelet Count 213, Mean Platelet Volume 9.7, Immature Granulocyte % (Auto) 0, Neutrophils (%) (Auto) 68, Lymphocytes (%) (Auto) 18, Monocytes (%) (Auto) 10, Eosinophils (%) (Auto) 3, Basophils (%) (Auto) 0, Neutrophils # (Auto) 6.4, Lymphocytes # (Auto) 1.7, Monocytes # (Auto) 0.9, Eosinophils # (Auto) 0.3, Basophils # (Auto) 0.0, Immature Granulocyte # (Auto) 0.0, Sodium Level 141, Potassium Level 4.9, Chloride Level 107, Carbon Dioxide Level 26, Anion Gap 8, Blood Urea Nitrogen 31H, Creatinine 2.39H, Estimat Glomerular Filtration Rate 26, BUN/Creatinine Ratio 13, Glucose Level 122H, Calcium Level 8.3L, Corrected Calcium 8.9, Total Bilirubin 0.6, Aspartate Amino Transf (AST/SGOT) 23, Alanine Aminotransferase (ALT/SGPT) 24, Alkaline Phosphatase 80, Total Protein 7.0, Albumin 3.2 06/13/23 05:59: Glucometer 113H 06/13/23 08:12: Glucometer 182H 06/13/23 10:59: Glucometer 193H 06/13/23 16:15: Glucometer 224H Laboratory Tests 06/12/23 04:26 06/13/23 05:40 A/P: Assessment: NOA on CKD 3b - managed by Dr Vilchis 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 Kaur showed calcified coronary system with mild diffuse ectasia and slow flow diffusely d/t small vessel dz. Normal LVEDP Mildly elevated BNP (probably due to CKD) w/o clinical evidence of CHF - BNP during this hospitalization is in the 300s as it was during the hospitalization of May 2023 - echo on 05-06-23: LVEF 55-60%, grade 2 diastolic dysfunction, mildly dilated LA, mild MR, mod AI Chronic, marked leg swelling, R>L - likely due to venous insuff - leg venous Duplex on 06/12/23 did not show DVT Plan: * Beta-miah were d/c'd because bp was low. BP has since improved * Continue long-acting dilt for vent rate control during A Fib * Continue apixaban for stroke prophylaxis - dose adjusted to age and renal function * Dr Vilchis is managing patient's renal failure * Monitor labs and maintain electrolyte and acid-base balance (Dr Vilchis managing) RACHEL LOUIS MD FACP FAC CCDS Jun 13, 2023 16:27
[2023-06-13 16:49] VITALS: BP 96/55
[2023-06-13 20:50] VITALS: BP 145/67
[2023-06-13] MEDS: traZODone 50 MG (DESYREL) TAB PO SCH (21:23)
[2023-06-13] MEDS: MONTELUKAST 10 MG TABLET PO SCH (21:23)
[2023-06-13 23:31] VITALS: BP 129/64
[2023-06-14 03:29] VITALS: BP 137/79
[2023-06-14 05:57] LABS: BASOPHILS % (AUTO) 0 % (0-10); EOSINOPHILS # (AUTO) 0.2 10^3/uL (0.0-0.3); EOSINOPHILS % (AUTO) 2 % (0-10); HEMATOCRIT 34 % (40-54); HEMOGLOBIN 10.2 g/dL (13.3-17.7); LYMPHOCYTES # (AUTO) 1.3 10^3/uL (1.0-4.0); LYMPHOCYTES % (AUTO) 14 % (12-44); MEAN CORPUSCULAR HEMOGLOBIN 29 pg (25-34); MEAN CORPUSCULAR HGB CONC 30 g/dL (32-36); MEAN CORPUSCULAR VOLUME 97 fL (80-99); MEAN PLATELET VOLUME 9.9 fL (9.0-12.2); MONOCYTES # (AUTO) 1.2 10^3/uL (0.0-1.0); MONOCYTES % (AUTO) 13 % (0-12); NEUTROPHILS # (AUTO) 6.8 10^3/uL (1.8-7.8); NEUTROPHILS % (AUTO) 70 % (42-75); PLATELET COUNT 186 10^3/uL (130-400); WHITE BLOOD COUNT 9.6 10^3/uL (4.3-11.0)
[2023-06-14] MEDS: inSUlin ASPART 1 UNIT/0.01 ML (PER UNIT) SC SCH ×4 (05:59→20:28)
[2023-06-14] MEDS: PANTOPRAZOLE 40 MG (PROTONIX) TAB PO SCH (05:59)
[2023-06-14] MEDS: THERAPEUTIC MULTIVITAMIN W/MINERALS TABLET PO SCH (05:59)
[2023-06-14 06:12] LABS: ALBUMIN 3.1 GM/DL (3.2-4.5); POTASSIUM 4.8 MMOL/L (3.6-5.0)
[2023-06-14 06:13] LABS: CALCIUM 8.4 MG/DL (8.5-10.1)
[2023-06-14 06:14] LABS: TOTAL PROTEIN 6.8 GM/DL (6.4-8.2)
[2023-06-14 06:16] LABS: BILIRUBIN,TOTAL 0.7 MG/DL (0.1-1.0)
[2023-06-14 06:18] LABS: CREATININE SERUM 2.27 MG/DL (0.60-1.30)
--- NOTE | 2023-06-14 06:35 | Progress Note ---
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 Review of Systems General: Fatigue, Malaise Objective Exam Last Set of Vital Signs Vital Signs Date Time Temp Pulse Resp B/P (MAP) Pulse Ox O2 Delivery O2 Flow Rate FiO2 06/14/23 03:29 36.5 85 18 137/79 (98) 96 Nasal Cannula 3.00 Capillary Refill : Less Than 3 Seconds I&O Intake and Output 06/14/23 00:00 Intake Total 820 ml Output Total 3400 ml Balance -2580 ml Intake Oral 820 ml Output Urine Total 3400 ml # Bowel Movements 2 General: Alert, Oriented X3, Cooperative, No Acute Distress Lungs: Clear to Auscultation, Normal Air Movement Heart: Regular Rate, Normal S1, Normal S2, No Murmurs Psych/Mental Status: Mental Status NL, Mood NL Results Lab Laboratory Tests 06/13/23 08:12: Glucometer 182H 06/13/23 10:59: Glucometer 193H 06/13/23 16:15: Glucometer 224H 06/13/23 20:59: Glucometer 171H 06/14/23 05:48: Glucometer 143H 06/14/23 05:50: White Blood Count 9.6, Red Blood Count 3.48L, Hemoglobin 10.2L, Hematocrit 34L, Mean Corpuscular Volume 97, Mean Corpuscular Hemoglobin 29, Mean Corpuscular Hemoglobin Concent 30L, Red Cell Distribution Width 14.0, Platelet Count 186, Mean Platelet Volume 9.9, Immature Granulocyte % (Auto) 0, Neutrophils (%) (Auto) 70, Lymphocytes (%) (Auto) 14, Monocytes (%) (Auto) 13H, Eosinophils (%) (Auto) 2, Basophils (%) (Auto) 0, Neutrophils # (Auto) 6.8, Lymphocytes # (Auto) 1.3, Monocytes # (Auto) 1.2H, Eosinophils # (Auto) 0.2, Basophils # (Auto) 0.0, Immature Granulocyte # (Auto) 0.0, Sodium Level 140, Potassium Level 4.8, Chloride Level 104, Carbon Dioxide Level 27, Anion Gap 9, Blood Urea Nitrogen 30H, Creatinine 2.27H, Estimat Glomerular Filtration Rate 28, BUN/Creatinine Ratio 13, Glucose Level 149H, Calcium Level 8.4L, Corrected Calcium 9.1, Total Bilirubin 0.7, Aspartate Amino Transf (AST/SGOT) 17, Alanine Aminotransferase (ALT/SGPT) 20, Alkaline Phosphatase 72, Total Protein 6.8, Albumin 3.1L Assessment/Plan Assessment/Plan Assess & Plan/Chief Complaint Assessment: Acute on chronic renal failure History of urinary obstruction secondary to prostate issues HTN Marked lower extremity swelling Diabetes, insulin dep. CKD Plan: Glucometer checks Monitor creatinine Finch catheter [facility] Friday to [facility] Clinical Quality Measures Admission Status Admission Dx Social work consult for [facility] in a [facility] long[facility]term GAYLE OWUSU DO Jun 14, 2023 06:35
[2023-06-14 08:00] VITALS: BP 135/72
[2023-06-14] MEDS: dilTIAZem ER 180 MG CAPSULE PO SCH (09:01)
[2023-06-14] MEDS: ASPIRIN 81 MG CHEWABLE TABLET PO SCH (09:01)
[2023-06-14] MEDS: FLUTICASONE NASAL SPRAY (120 SPRAYS) NS SCH (09:01)
[2023-06-14] MEDS: TAMSULOSIN 0.4 MG (FLOMAX) CAP PO SCH (09:01)
[2023-06-14] MEDS: ISOSORBIDE MONONITRATE 60 MG TABLET PO SCH (09:02)
[2023-06-14] MEDS: SENNA W/DOCUSATE (SENOKOT S) TABLET PO SCH (09:02)
[2023-06-14] MEDS: FINASTERIDE 5 MG TABLET PO SCH (09:02)
[2023-06-14] MEDS: SENNOSIDES 8.6 MG (SENOKOT) TAB PO SCH ×2 (09:02→20:23)
[2023-06-14] MEDS: APIXABAN 2.5 MG TABLET PO SCH ×2 (09:02→20:23)
[2023-06-14] MEDS: DOCUSATE SODIUM 100 MG CAPSULE PO SCH ×2 (09:02→20:23)
[2023-06-14] MEDS: ACETAMINOPHEN 325 MG TABLET PO PRN ×2 (09:17→17:43)
--- NOTE | 2023-06-14 10:24 | Physical Therapy Progress Note ---
Therapy Progress Note Pt. declines PT today stating he sprained his ankle and doesn't want to get out of bed. Pt. encouraged to complete LE exercises in bed for AROM and he verbalizes understanding. We will return 06/16. 1, visit only [id number] LORETA RACHEL PT Jun 14, 2023 10:24
[2023-06-14 12:00] VITALS: BP 128/70
--- NOTE | 2023-06-14 13:18 | Diagnostic Imaging Report ---
INDICATION: Pain. TECHNIQUE: Two views were obtained. FINDINGS: The alignment is normal. There is no fracture or dislocation. There are mild degenerative changes. The soft tissues are unremarkable. IMPRESSION: Minimal degenerative changes; otherwise, unremarkable. Dictated by: Dictated on workstation # [id number]
--- NOTE | 2023-06-14 13:19 | Diagnostic Imaging Report ---
INDICATION: Pain, fall. COMPARISON: None available. TECHNIQUE: Three radiographs of the right ankle dated 06/14/2023. FINDINGS: No acute fracture or dislocation. No destructive osseous process. The talar dome is unremarkable. The ankle mortise appears symmetric. Advanced background vascular calcifications. Small posterior calcaneal enthesophyte. No suspicious radiopaque foreign body. Diffuse soft tissue swelling. Mild degenerative changes of the ankle joint. IMPRESSION: No acute osseous abnormality with mild degenerative changes present. Diffuse soft tissue swelling. Advanced background vascular calcifications. Dictated by: Dictated on workstation # [id number]
[2023-06-14 16:38] VITALS: BP 128/70
[2023-06-14 17:31] VITALS: BP 127/68
--- NOTE | 2023-06-14 17:34 | Cardiology Progress Note ---
Cardiology SOAP Progress Note Subjective: Generalized weakness. Objective: I&O/Vital Signs 06/14/23 06/14/23 06/14/23 06/14/23 08:00 08:00 12:00 16:38 Temp 36.8 36.8 36.8 Pulse 86 82 82 Resp 20 19 B/P (MAP) 135/72 (93) 128/70 (89) Pulse Ox 94 94 95 95 O2 Delivery Nasal Cannula Nasal Cannula Room Air O2 Flow Rate 3.00 3.00 3.00 06/14/23 17:31 Temp 36.6 Pulse 80 Resp 20 B/P (MAP) 127/68 (87) Pulse Ox 96 O2 Delivery Room Air O2 Flow Rate 3.00 3.00 06/14/23 00:00 Intake Total 720 ml Output Total 2600 ml Balance -1880 ml Weight (Pounds): 200 Weight (Calculated Kilograms): 90.747545 Constitutional: AAO x 3, well-developed, well-nourished Respiratory: No accessory muscle use; chest expansion is symmetric, chest is bilaterally symmetric, other (fair, bilat air entry, diminished at the bases; prolonged exp phase) Cardiovascular: regular rate-rhythm, S1 and S2, systolic murmur (soft WANDA at card base) Gastrointestional: No tender; soft; No guarding, No rebound; audible bowel sounds Extremities: other (moderate leg swelling, non-pitting); No clubbing, No cyanosis Neurologic/Psychiatric: oriented x 3, other (moves all limbs equally) Skin: normal color, warm/dry; No cyanosis, No cool, No diaphoresis, No rash on exposed areas, No ulcerations on exposed areas Results/Procedures: Labs Laboratory Tests 06/13/23 20:59: Glucometer 171H 06/14/23 05:48: Glucometer 143H 06/14/23 05:50: White Blood Count 9.6, Red Blood Count 3.48L, Hemoglobin 10.2L, Hematocrit 34L, Mean Corpuscular Volume 97, Mean Corpuscular Hemoglobin 29, Mean Corpuscular Hemoglobin Concent 30L, Red Cell Distribution Width 14.0, Platelet Count 186, Mean Platelet Volume 9.9, Immature Granulocyte % (Auto) 0, Neutrophils (%) (Auto) 70, Lymphocytes (%) (Auto) 14, Monocytes (%) (Auto) 13H, Eosinophils (%) (Auto) 2, Basophils (%) (Auto) 0, Neutrophils # (Auto) 6.8, Lymphocytes # (Auto) 1.3, Monocytes # (Auto) 1.2H, Eosinophils # (Auto) 0.2, Basophils # (Auto) 0.0, Immature Granulocyte # (Auto) 0.0, Sodium Level 140, Potassium Level 4.8, Chloride Level 104, Carbon Dioxide Level 27, Anion Gap 9, Blood Urea Nitrogen 30H, Creatinine 2.27H, Estimat Glomerular Filtration Rate 28, BUN/Creatinine Ratio 13, Glucose Level 149H, Calcium Level 8.4L, Corrected Calcium 9.1, Total Bilirubin 0.7, Aspartate Amino Transf (AST/SGOT) 17, Alanine Aminotransferase (ALT/SGPT) 20, Alkaline Phosphatase 72, Total Protein 6.8, Albumin 3.1L 06/14/23 11:20: Glucometer 207H 06/14/23 14:35: Glucometer 191H A/P: Assessment/Dx: NOA on CKD 3b - managed by Dr Vilchis 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 Kaur showed calcified coronary system with mild diffuse ectasia and slow flow diffusely d/t small vessel dz. Normal LVEDP Mildly elevated BNP (probably due to CKD) w/o clinical evidence of CHF - BNP during this hospitalization is in the 300s as it was during the hospitalization of May 2023 - echo on 05-06-23: LVEF 55-60%, grade 2 diastolic dysfunction, mildly dilated LA, mild MR, mod AI Chronic, marked leg swelling, R>L - likely due to venous insuff - leg venous Duplex on 06/12/23 did not show DVT Plan: * Beta-miah were d/c'd because bp was low. BP has since improved * Continue long-acting dilt for vent rate control during A Fib * Continue apixaban for stroke prophylaxis - dose adjusted to age and renal function * Dr Vilchis is managing patient's renal failure * Monitor labs and maintain electrolyte and acid-base balance (Dr Vilchis managing) Jamie MCGRAW MD Jun 14, 2023 17:34
[2023-06-14 19:40] VITALS: BP 137/63
[2023-06-14] MEDS: traZODone 50 MG (DESYREL) TAB PO SCH (20:23)
[2023-06-14] MEDS: MONTELUKAST 10 MG TABLET PO SCH (20:24)
[2023-06-15] VITALS (7 sets, daily range): BP systolic 125–172; BP diastolic 70–93
[2023-06-15 06:02] LABS: BASOPHILS % (AUTO) 0 % (0-10); EOSINOPHILS # (AUTO) 0.4 10^3/uL (0.0-0.3); EOSINOPHILS % (AUTO) 4 % (0-10); HEMATOCRIT 33 % (40-54); HEMOGLOBIN 10.1 g/dL (13.3-17.7); LYMPHOCYTES # (AUTO) 1.6 10^3/uL (1.0-4.0); LYMPHOCYTES % (AUTO) 21 % (12-44); MEAN CORPUSCULAR HEMOGLOBIN 30 pg (25-34); MEAN CORPUSCULAR HGB CONC 31 g/dL (32-36); MEAN CORPUSCULAR VOLUME 96 fL (80-99); MEAN PLATELET VOLUME 10.2 fL (9.0-12.2); MONOCYTES # (AUTO) 0.9 10^3/uL (0.0-1.0); MONOCYTES % (AUTO) 12 % (0-12); NEUTROPHILS # (AUTO) 4.9 10^3/uL (1.8-7.8); NEUTROPHILS % (AUTO) 62 % (42-75); PLATELET COUNT 190 10^3/uL (130-400); WHITE BLOOD COUNT 7.9 10^3/uL (4.3-11.0)
[2023-06-15 06:19] LABS: POTASSIUM 4.5 MMOL/L (3.6-5.0)
[2023-06-15 06:21] LABS: CALCIUM 8.4 MG/DL (8.5-10.1)
[2023-06-15 06:22] LABS: TOTAL PROTEIN 6.8 GM/DL (6.4-8.2)
[2023-06-15 06:23] LABS: BILIRUBIN,TOTAL 0.6 MG/DL (0.1-1.0)
[2023-06-15 06:25] LABS: CREATININE SERUM 2.13 MG/DL (0.60-1.30)
[2023-06-15] MEDS: inSUlin ASPART 1 UNIT/0.01 ML (PER UNIT) SC SCH ×4 (06:31→20:50)
[2023-06-15] MEDS: PANTOPRAZOLE 40 MG (PROTONIX) TAB PO SCH (06:37)
[2023-06-15] MEDS: THERAPEUTIC MULTIVITAMIN W/MINERALS TABLET PO SCH (06:37)
[2023-06-15] MEDS: ACETAMINOPHEN 325 MG TABLET PO PRN (07:27)
--- NOTE | 2023-06-15 07:57 | Progress Note ---
Subjective Date Seen by a Provider: Jun 15, 2023 Time Seen by a Provider: 11:00 Subjective/Events-last exam Patient doing about the same Requiring indwelling catheter Shortness of breath is improved Continue to monitor oxygen Discharge jail tomorrow Review of Systems General: Fatigue, Malaise Pulmonary: Dyspnea Objective Exam Last Set of Vital Signs Vital Signs Date Time Temp Pulse Resp B/P (MAP) Pulse Ox O2 Delivery O2 Flow Rate FiO2 06/15/23 07:46 93 Nasal Cannula 3.00 06/15/23 07:32 36.7 88 24 140/75 (96) Capillary Refill : Less Than 3 Seconds I&O Intake and Output 06/15/23 00:00 Intake Total 1200 ml Output Total 1125 ml Balance 75 ml Intake Oral 1200 ml Output Urine Total 1125 ml General: Alert, Oriented X3, Cooperative, No Acute Distress Lungs: Clear to Auscultation, Normal Air Movement Heart: Regular Rate, Normal S1, Normal S2, No Murmurs Psych/Mental Status: Mental Status NL, Mood NL Results Lab Laboratory Tests 06/14/23 11:20: Glucometer 207H 06/14/23 14:35: Glucometer 191H 06/14/23 19:38: Glucometer 159H 06/15/23 05:40: White Blood Count 7.9, Red Blood Count 3.40L, Hemoglobin 10.1L, Hematocrit 33L, Mean Corpuscular Volume 96, Mean Corpuscular Hemoglobin 30, Mean Corpuscular Hemoglobin Concent 31L, Red Cell Distribution Width 14.0, Platelet Count 190, Mean Platelet Volume 10.2, Immature Granulocyte % (Auto) 1, Neutrophils (%) (Auto) 62, Lymphocytes (%) (Auto) 21, Monocytes (%) (Auto) 12, Eosinophils (%) (Auto) 4, Basophils (%) (Auto) 0, Neutrophils # (Auto) 4.9, Lymphocytes # (Auto) 1.6, Monocytes # (Auto) 0.9, Eosinophils # (Auto) 0.4H, Basophils # (Auto) 0.0, Immature Granulocyte # (Auto) 0.0, Sodium Level 140, Potassium Level 4.5, Chloride Level 103, Carbon Dioxide Level 28, Anion Gap 9, Blood Urea Nitrogen 30H, Creatinine 2.13H, Estimat Glomerular Filtration Rate 30, BUN/Creatinine Ratio 14, Glucose Level 126H, Calcium Level 8.4L, Corrected Calcium 9.2, Total Bilirubin 0.6, Aspartate Amino Transf (AST/SGOT) 15, Alanine Aminotransferase (ALT/SGPT) 17, Alkaline Phosphatase 74, Total Protein 6.8, Albumin 3.0L Assessment/Plan Assessment/Plan Assess & Plan/Chief Complaint Assessment: Acute on chronic renal failure History of urinary obstruction secondary to prostate issues HTN Marked lower extremity swelling Diabetes, insulin dep. CKD Plan: Glucometer checks Monitor creatinine Finch catheter Discharge on Friday to jail Clinical Quality Measures Admission Status Admission Dx Social work consult for placement in a jail long-term GAYLE OWUSU DO Jun 15, 2023 07:57
[2023-06-15] MEDS: ISOSORBIDE MONONITRATE 60 MG TABLET PO SCH (10:46)
[2023-06-15] MEDS: APIXABAN 2.5 MG TABLET PO SCH ×2 (10:46→20:45)
[2023-06-15] MEDS: DOCUSATE SODIUM 100 MG CAPSULE PO SCH ×2 (10:46→20:45)
[2023-06-15] MEDS: dilTIAZem ER 180 MG CAPSULE PO SCH (10:46)
[2023-06-15] MEDS: ASPIRIN 81 MG CHEWABLE TABLET PO SCH (10:46)
[2023-06-15] MEDS: FINASTERIDE 5 MG TABLET PO SCH (10:47)
[2023-06-15] MEDS: SENNOSIDES 8.6 MG (SENOKOT) TAB PO SCH ×2 (10:47→20:45)
[2023-06-15] MEDS: TAMSULOSIN 0.4 MG (FLOMAX) CAP PO SCH (10:47)
[2023-06-15] MEDS: SENNA W/DOCUSATE (SENOKOT S) TABLET PO SCH (10:47)
[2023-06-15] MEDS: FLUTICASONE NASAL SPRAY (120 SPRAYS) NS SCH (10:48)
[2023-06-15] MEDS: LORATADINE 10 MG TABLET PO SCH (10:50)
--- NOTE | 2023-06-15 14:24 | Cardiology Progress Note ---
Cardiology SOAP Progress Note Subjective: Gradually feeling better. Objective: I&O/Vital Signs 06/15/23 06/15/23 06/15/23 06/15/23 04:00 07:32 07:46 12:58 Temp 36.6 36.7 36.4 Pulse 79 88 83 Resp 18 24 20 B/P (MAP) 125/70 (88) 140/75 (96) 128/70 (89) Pulse Ox 97 93 93 94 O2 Delivery Nasal Cannula Nasal Cannula Nasal Cannula Nasal Cannula O2 Flow Rate 3.00 3.00 3.00 3.00 06/15/23 00:00 Intake Total 1100 ml Output Total 725 ml Balance 375 ml Weight (Pounds): 200 Weight (Calculated Kilograms): 90.337499 Constitutional: AAO x 3, well-developed, well-nourished Respiratory: No accessory muscle use; chest expansion is symmetric, chest is bilaterally symmetric, other (fair, bilat air entry, diminished at the bases; prolonged exp phase) Cardiovascular: regular rate-rhythm, S1 and S2, systolic murmur (soft WANDA at card base) Gastrointestional: No tender; soft; No guarding, No rebound; audible bowel sounds Extremities: other (moderate leg swelling, non-pitting); No clubbing, No cyanosis Neurologic/Psychiatric: oriented x 3, other (moves all limbs equally) Skin: normal color, warm/dry; No cyanosis, No cool, No diaphoresis, No rash on exposed areas, No ulcerations on exposed areas Results/Procedures: Labs Laboratory Tests 06/14/23 14:35: Glucometer 191H 06/14/23 19:38: Glucometer 159H 06/15/23 05:40: White Blood Count 7.9, Red Blood Count 3.40L, Hemoglobin 10.1L, Hematocrit 33L, Mean Corpuscular Volume 96, Mean Corpuscular Hemoglobin 30, Mean Corpuscular Hemoglobin Concent 31L, Red Cell Distribution Width 14.0, Platelet Count 190, Mean Platelet Volume 10.2, Immature Granulocyte % (Auto) 1, Neutrophils (%) (Auto) 62, Lymphocytes (%) (Auto) 21, Monocytes (%) (Auto) 12, Eosinophils (%) (Auto) 4, Basophils (%) (Auto) 0, Neutrophils # (Auto) 4.9, Lymphocytes # (Auto) 1.6, Monocytes # (Auto) 0.9, Eosinophils # (Auto) 0.4H, Basophils # (Auto) 0.0, Immature Granulocyte # (Auto) 0.0, Sodium Level 140, Potassium Level 4.5, Chloride Level 103, Carbon Dioxide Level 28, Anion Gap 9, Blood Urea Nitrogen 30H, Creatinine 2.13H, Estimat Glomerular Filtration Rate 30, BUN/Creatinine Ratio 14, Glucose Level 126H, Calcium Level 8.4L, Corrected Calcium 9.2, Total Bilirubin 0.6, Aspartate Amino Transf (AST/SGOT) 15, Alanine Aminotransferase (ALT/SGPT) 17, Alkaline Phosphatase 74, Total Protein 6.8, Albumin 3.0L 06/15/23 09:25: Glucometer 146H A/P: Assessment/Dx: Patient is gradually feeling better NOA on CKD 3b - managed by Dr Vilchis 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 Kaur showed calcified coronary system with mild diffuse ectasia and slow flow diffusely d/t small vessel dz. Normal LVEDP Mildly elevated BNP (probably due to CKD) w/o clinical evidence of CHF - BNP during this hospitalization is in the 300s as it was during the hospitalization of May 2023 - echo on 05-06-23: LVEF 55-60%, grade 2 diastolic dysfunction, mildly dilated LA, mild MR, mod AI Chronic, marked leg swelling, R>L - likely due to venous insuff - leg venous Duplex on 06/12/23 did not show DVT Plan: * Patient has been feeling better gradually. * Beta-miah were d/c'd because bp was low. BP has since improved * Continue long-acting dilt for vent rate control during A Fib * Continue apixaban for stroke prophylaxis - dose adjusted to age and renal function * Dr Vilchis is managing patient's renal failure * Monitor labs and maintain electrolyte and acid-base balance (Dr Vilchis managing) Jamie MCGRAW MD Jun 15, 2023 14:24
[2023-06-15] MEDS: traZODone 50 MG (DESYREL) TAB PO SCH (20:45)
[2023-06-15] MEDS: MONTELUKAST 10 MG TABLET PO SCH (20:45)
[2023-06-15] MEDS: hydrALAZINE 25 MG TABLET PO PRN (21:41)
[2023-06-16 00:21] VITALS: BP 158/75
[2023-06-16] MEDS: hydrALAZINE 25 MG TABLET PO PRN (02:47)
[2023-06-16 03:10] VITALS: BP 172/85
[2023-06-16 05:27] LABS: BASOPHILS % (AUTO) 0 % (0-10); EOSINOPHILS # (AUTO) 0.3 10^3/uL (0.0-0.3); EOSINOPHILS % (AUTO) 4 % (0-10); HEMATOCRIT 33 % (40-54); HEMOGLOBIN 10.3 g/dL (13.3-17.7); LYMPHOCYTES # (AUTO) 1.4 10^3/uL (1.0-4.0); LYMPHOCYTES % (AUTO) 17 % (12-44); MEAN CORPUSCULAR HEMOGLOBIN 29 pg (25-34); MEAN CORPUSCULAR HGB CONC 31 g/dL (32-36); MEAN CORPUSCULAR VOLUME 95 fL (80-99); MEAN PLATELET VOLUME 9.9 fL (9.0-12.2); MONOCYTES # (AUTO) 0.8 10^3/uL (0.0-1.0); MONOCYTES % (AUTO) 10 % (0-12); NEUTROPHILS # (AUTO) 5.7 10^3/uL (1.8-7.8); NEUTROPHILS % (AUTO) 69 % (42-75); PLATELET COUNT 197 10^3/uL (130-400); WHITE BLOOD COUNT 8.3 10^3/uL (4.3-11.0)
[2023-06-16 05:36] LABS: ALBUMIN 3.1 GM/DL (3.2-4.5)
[2023-06-16 05:37] LABS: POTASSIUM 4.6 MMOL/L (3.6-5.0)
[2023-06-16 05:38] LABS: CALCIUM 8.4 MG/DL (8.5-10.1)
[2023-06-16 05:41] LABS: BILIRUBIN,TOTAL 0.7 MG/DL (0.1-1.0)
[2023-06-16 05:43] LABS: CREATININE SERUM 1.88 MG/DL (0.60-1.30)
[2023-06-16] MEDS: inSUlin ASPART 1 UNIT/0.01 ML (PER UNIT) SC SCH ×2 (05:54→10:00)
[2023-06-16] MEDS: THERAPEUTIC MULTIVITAMIN W/MINERALS TABLET PO SCH (06:34)
[2023-06-16] MEDS: PANTOPRAZOLE 40 MG (PROTONIX) TAB PO SCH (06:34)
[2023-06-16 07:38] VITALS: BP 158/79
[2023-06-16] MEDS: TAMSULOSIN 0.4 MG (FLOMAX) CAP PO SCH (08:39)
[2023-06-16] MEDS: ISOSORBIDE MONONITRATE 60 MG TABLET PO SCH (08:39)
[2023-06-16] MEDS: DOCUSATE SODIUM 100 MG CAPSULE PO SCH (08:39)
[2023-06-16] MEDS: FINASTERIDE 5 MG TABLET PO SCH (08:39)
[2023-06-16] MEDS: SENNOSIDES 8.6 MG (SENOKOT) TAB PO SCH (08:40)
[2023-06-16] MEDS: APIXABAN 2.5 MG TABLET PO SCH (08:40)
[2023-06-16] MEDS: ASPIRIN 81 MG CHEWABLE TABLET PO SCH (08:40)
[2023-06-16] MEDS: SENNA W/DOCUSATE (SENOKOT S) TABLET PO SCH (08:40)
[2023-06-16] MEDS: dilTIAZem ER 180 MG CAPSULE PO SCH (08:45)
[2023-06-16] MEDS: FLUTICASONE NASAL SPRAY (120 SPRAYS) NS SCH (08:45)
[2023-06-16] MEDS: ACETAMINOPHEN 325 MG TABLET PO PRN (09:13)
--- NOTE | 2023-06-16 10:12 | Progress Note - Cardiology ---
Cardiology SOAP Progress Note Subjective: Reports progressive dyspnea this morning No c/o CP No c/o palpitations C/O worsening LE swelling Objective: I&O/Vital Signs Weight (Pounds): 200 Weight (Calculated Kilograms): 90.401355 Constitutional: AAO x 3, well-developed, well-nourished Respiratory: No accessory muscle use; chest expansion is symmetric, chest is bilaterally symmetric, other (fair, bilat air entry, diminished at the bases; prolonged exp phase) Cardiovascular: regular rate-rhythm, S1 and S2, systolic murmur (soft WANDA at card base) Gastrointestional: No tender; soft; No guarding, No rebound; audible bowel sounds Extremities: other (moderate leg swelling, non-pitting); No clubbing, No cyanosis Neurologic/Psychiatric: oriented x 3, other (moves all limbs equally) Skin: normal color, warm/dry; No cyanosis, No cool, No diaphoresis, No rash on exposed areas, No ulcerations on exposed areas Results/Procedures: Labs A/P: Assessment: NOA on CKD 3b - managed by Dr Vilchis 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 Kaur showed calcified coronary system with mild diffuse ectasia and slow flow diffusely d/t small vessel dz. Normal LVEDP Mildly elevated BNP (probably due to CKD) w/o clinical evidence of CHF - BNP during this hospitalization is in the 300s as it was during the hospitalization of May 2023 - echo on 05-06-23: LVEF 55-60%, grade 2 diastolic dysfunction, mildly dilated LA, mild MR, mod AI Chronic, marked leg swelling, R>L - likely due to venous insuff - leg venous Duplex on 06/12/23 did not show DVT Plan: * Beta-miah were d/c'd because bp was low. BP has since improved * Continue long-acting dilt for vent rate control during A Fib * Continue apixaban for stroke prophylaxis - dose adjusted to age and renal function * Dr Vilchis is managing patient's renal failure * Monitor labs and maintain electrolyte and acid-base balance (Dr Vilchis managing) RONI PATTON Jun 16, 2023 10:12
[2023-06-16] MEDS ORDERED: FUROSEMIDE INJECTION 40 MG/4 ML VIAL IVP ONE (10:15)
--- NOTE | 2023-06-16 10:19 | Physical Therapy Daily Note ---
PT Daily Note-Current Subjective Patient agrees to PT. Pain Section J - Health Conditions 1. Rarely or not at all 2. Occasionally 3. Frequently 4. Almost constantly 8. Unable to answer Pain Effect on Sleep: 8 Pain Interference with Therapy: 8 Pain Interference w/Day-to-Day: 8 Transfers SCALE: Activities may be completed with or without assistive devices. 4-Kdxporwxit-wqaohbn completes the activity by him/herself with no assistance from a helper. 5-Set-up or Clean-up Assistance-helper sets up or cleans up; patient completes activity. [place] assists only prior to or following the activity. 4-Supervision or Touching Assistance-helper provides verbal cues and/or touching/steadying and/or contact guard assistance as patient completes activity. Assistance may be provided throughout the activity or intermittently. 3-Partial/Moderate Assistance-helper does LESS THAN HALF the effort. [place] lifts, holds or supports trunk or limbs, but provides less than half the effort. 2-Substantial/Maximal Assistance-helper does MORE THAN HALF the effort. [place] lifts or holds trunk or limbs and provides more than half the effort. 1-Ozagscqhz-jwabxt does ALL the effort. Patient does none of the effort to complete the activity. Or, the assistance of 2 or more helpers is required for the patient to complete the activity. If activity was not attempted, code reason: 7-Patient Refused. 9-Not Applicable-not attempted and the patient did not perform the activity before the current illness, exacerbation or injury. 10-Not Attempted due to Environmental Limitations-(lack of equipment, weather restraints, etc.). 88-Not Attempted due to Medical Conditions or Safety Concerns. Lying to Sitting/Side of Bed(Q: 2 Sit to Stand (QC): 1 Chair/Yjx-jz-Mhoyi Xfer(QC): 1 unable to stand to FWW on this date requiring dependent assist of 2 to perform SPT Weight Bearing Right Lower Extremity: Right Weight Bearing/Tolerated Left Lower Extremity: Left Weight Bearing/Tolerated Exercises Seated Therapy Exercises: Ankle pumps, Long arc quads Seated Reps: 15 Assessment Patient required assist of 2 with sit to stand and SPT bed to recliner. Patient tolerates minimal activity. PT Mcc Goals Mcc Goals PT Mcc Goals Time Frame: Jun 21, 2023 Roll Left & Right (QC): 6 Sit to Lying (QC): 6 Lying-Sitting on Side/Bed(QC): 6 Sit to Stand (QC): 6 Chair/Pub-hd-Gmsmy Xfer(QC): 6 Toilet Transfer (QC): 6 Walk 10 feet (QC): 5 Walk 50ft with 2 Turns (QC): 5 Walk 150 ft (QC): 5 PT Plan Treatment/Plan Treatment Plan: Continue Plan of Care Treatment Plan: Bed Mobility, Education, Functional Activity [place], Functional Strength, Gait, Safety, Therapeutic Exercise, Transfers Treatment Duration: Jun 21, 2023 Frequency: 6 times per week Estimated Hrs Per Day: .25 hour per day Patient and/or Family Agrees t: Yes Time Time In: 945 Time Out: 958 DATE: Jun 16, 2023 Total Billed Treatment Time: 13 Total Billed Treatment 1 visit FA 13 min RANJITH FIERRO PT Jun 16, 2023 10:19
[2023-06-16] MEDS ORDERED: FUROSEMIDE INJECTION 40 MG/4 ML VIAL IVP NR (10:30)
[2023-06-16] MEDS ORDERED: OXC5T PO (11:01)
[2023-06-16] MEDS ORDERED: APIX2.5T PO (11:01)
[2023-06-16] MEDS ORDERED: FURO40TA4 PO (11:01)
[2023-06-16] MEDS ORDERED: MONT-40 PO (11:01)
[2023-06-16] MEDS ORDERED: TRZ50T PO (11:01)
[2023-06-16] MEDS ORDERED: INSU100I60 SC (11:01)
[2023-06-16] MEDS ORDERED: CETI10TA17 PO (11:01)
[2023-06-16] MEDS ORDERED: ASPI-1238 PO (11:01)
[2023-06-16] MEDS ORDERED: DILT180C85 PO (11:01)
[2023-06-16] MEDS ORDERED: TMSL.4C PO (11:01)
[2023-06-16] MEDS ORDERED: FLUT16SP22 NS (11:01)
[2023-06-16] MEDS ORDERED: DOCU100C37 PO (11:01)
[2023-06-16] MEDS ORDERED: MULT-1137 PO (11:01)
[2023-06-16] MEDS ORDERED: METO-333 PO (11:01)
[2023-06-16] MEDS ORDERED: HYDR-3924 PO (11:01)
[2023-06-16] MEDS ORDERED: HYDR-3923 PO (11:01)
[2023-06-16] MEDS ORDERED: ALBU2.5V4 INH (11:01)
[2023-06-16] MEDS ORDERED: ACET325T49 PO (11:01)
[2023-06-16] MEDS ORDERED: SENN-117 PO (11:01)
[2023-06-16] MEDS ORDERED: ISOS60TA63 PO (11:01)
[2023-06-16] MEDS ORDERED: OMEP40CA6 PO (11:01)
[2023-06-16] MEDS ORDERED: INSU100I88 SQ (11:01)
[2023-06-16] MEDS ORDERED: FINA5TAB6 PO (11:01)
--- NOTE | 2023-06-16 11:02 | Discharge Inst-Skilled Nursing ---
Discharge Inst-Skilled NF Reconcile Patient Problems Problems Reviewed?: Yes Patient Instructions Patient Problems: Debility Goal: [place] or hospice Consult/Follow Up/Orders Follow Up Appt.: Dr Vilchis/Lexie Valadez [place] rounds Skilled NF Admit to: [facility] ([facility]) I certify that SNF services are required to be given on an inpatient basis because of the above named patient's need for senior living care on a continuing basis for the conditions(s) for which he/she was receiving inpatient hospital services prior to his/her transfer to the [facility]. Snf Facility Order: Nursing Services, Human Resources Intern-Evaluate & Treat, Physical Therapy-Evaluate & Treat Oxygen Delivery Method: Nasal Cannula New & Resume Previous Orders New Medications: Acetaminophen (Acetaminophen) 325 Mg Tablet 650 MG PO Q4H PRN for TEMPERATURE, #60 TAB Albuterol Sulfate (Albuterol Sulfate) 2.5 Mg/3 Ml (0.083 %) Vial.neb 2.5 MG INH RTQ4HR PRN for SOA, #60 INHALER Hydralazine HCl (Hydralazine HCl) 25 Mg Tablet 50 MG PO Q4H PRN for sbp>158, #30 TAB Metoprolol Tartrate (Metoprolol Tartrate) 25 Mg Tablet 25 MG PO BID, #60 TAB Multivitamin/Iron/Folic Acid (Tab-A-Oleksandr Multivit with Iron) 18 Mg Iron-400 Mcg Tablet 1 EA PO DAILY@0700, #30 TAB Oxycodone Hcl (Oxyir Tablet) 5 Mg Tab 5 MG PO Q4HR PRN for PAIN-SEE DOSE INSTRUCTIONS, #10 TAB Changed Medications: Insulin Lispro (Insulin Lispro Jared Mert) 100 Unit/Ml Ins.pen.hf 3 UNITS SC AC, #1 EACH (Changed from: UNITS; USES PER SLIDING SCALE) 3 units before meals Tamsulosin HCl (Flomax) 0.4 Mg Cap 0.8 MG PO DAILY, #60 CAP (Changed from: Removed Instructions) Continued Medications: Apixaban (Eliquis) 2.5 Mg Tablet 2.5 MG PO BID, #60 TAB (This prescription has been renewed) Aspirin (Aspirin EC) 81 Mg Tablet.dr 81 MG PO DAILY, #30 TAB (This prescription has been renewed) Cetirizine HCl (Cetirizine HCl) 10 Mg Tablet 10 MG PO DAILY, #30 TAB (This prescription has been renewed) Diltiazem HCl (Diltiazem 24Hr ER) 180 Mg Cap.er.24h 180 MG PO DAILY, #30 CAP (This prescription has been renewed) Docusate Sodium (Docusate Sodium) 100 Mg Capsule 100 MG PO BID, #60 CAP (This prescription has been renewed) Finasteride (Finasteride) 5 Mg Tablet 5 MG PO DAILY, #30 TAB (This prescription has been renewed) Fluticasone Propionate (Fluticasone Propionate) 50 Mcg/Actuation [place].susp 0 SPRAY NS DAILY, #1 EACH (This prescription has been renewed) 2 puffs each nostril daily Furosemide (Furosemide) 40 Mg Tablet 40 MG PO DAILY, #30 TAB (This prescription has been renewed) Hydralazine HCl (Hydralazine HCl) 50 Mg Tablet 50 MG PO 0000,0300,1600, #90 TAB (This prescription has been renewed) Insulin Detemir (Levemir Flexpen) 100 Unit/Ml (3 Ml) Insuln.pen 25 UNIT SQ BID, #1 EA (This prescription has been renewed) Isosorbide Mononitrate (Isosorbide Mononitrate ER) 60 Mg Tab 120 MG PO DAILY, #60 TAB (This prescription has been renewed) TAKES 2 (60MG) TABS Montelukast Sodium (Montelukast Sodium) 10 Mg Tablet 10 MG PO HS, #30 TAB (This prescription has been renewed) Omeprazole (Omeprazole) 40 Mg Capsule.dr 40 MG PO DAILY, #30 CAP (This prescription has been renewed) Sennosides/Docusate Sodium (Stimulant Laxative Plus Tablet) 8.6 Mg-50 Mg Tablet 17.2 MG PO DAILY, #30 TAB (This prescription has been renewed) TAKES 2 (8.6MG) TABS Trazodone HCl (Trazodone HCl) 50 Mg Tablet 50 MG PO HS, #30 TAB (This prescription has been renewed) Vit C/E/Zn/Coppr/Lutein/Zeaxan (Preservision Areds 2 Softgel) 250MG-90MG Capsule 1 EACH PO DAILY, #30 CAP Discontinued Medications: Carvedilol (Carvedilol) 25 Mg Tablet 25 MG PO BID, #60 TAB Loida Vilchis Jun 16, 2023 11:02 LOIDA VILCHIS DO Jun 16, 2023 11:02
--- NOTE | 2023-06-16 11:03 | Discharge Summary ---
Diagnosis/Chief Complaint Date of Admission Jun 13, 2023 at 12:57 Date of Discharge Discharge Date: Jun 16, 2023 Discharge Diagnosis Assessment: Acute on chronic renal failure History of urinary obstruction secondary to prostate issues HTN Marked lower extremity swelling Diabetes, insulin dep. CKD Volume overload PAF Hypoxia Reason Hospital Visit Discharge Summary Discharge Physical Examination Allergies: Coded Allergies: Sulfa (Sulfonamide Antibiotics) (Unverified Allergy, Unknown, 10/10/19) Vitals & I&Os Vital Signs Date Time Temp Pulse Resp B/P (MAP) Pulse Ox O2 Delivery O2 Flow Rate FiO2 06/16/23 13:46 36.2 95 16 148/76 95 Nasal Cannula 3.00 Hospital Course Was the Problem List Reviewed?: Yes Hospital course: 82-year-old male with history of Afib, benign prostatic h yperplasia, bladder infection, DM, and renal failure presented to ED with shortness of breath. CXR showed cardiomegaly with central vascular congestion and some interstitial edema. Venous doppler study was negative for DVT in bilateral lower extremities. BNP was in the 300's w/o clinical evidence of CHF. Patient was admitted 06/10/23 with [id number] renal failure. During his h ospital stay, he had a slow recovery and HTN was treated with hydralazine and isosorbide mononitrate. A sosa catheter was required due to urinary retention and he was given long-acting diltiazem for Afib & furosemide for the edema. Patient was transferred to [facility] and overall, gradually started to fell better and his shortness of breath improved, but did experience some constip ation that required an enema. His eGFR was 35 prior to discharge and his lower leg edema stayed stable (R>L) throughout the stay. Patient was discharged on 06/16/23 to a long-term. Labs (last 24 hrs) Laboratory Tests 06/10/23 16:28: White Blood Count 8.8, Red Blood Count 4.06L, Hemoglobin 11.8L, Hematocrit 38L, Mean Corpuscular Volume 94, Mean Corpuscular Hemoglobin 29, Mean Corpuscular Hemoglobin Concent 31L, Red Cell Distribution Width 14.6H, Platelet Count 244, Mean Platelet Volume 10.1, Immature Granulocyte % (Auto) 0, Neutrophils (%) (Auto) 72, Lymphocytes (%) (Auto) 15, Monocytes (%) (Auto) 11, Eosinophils (%) (Auto) 1, Basophils (%) (Auto) 0, Neutrophils # (Auto) 6.3, Lymphocytes # (Auto) 1.3, Monocytes # (Auto) 1.0, Eosinophils # (Auto) 0.1, Basophils # (Auto) 0.0, Immature Granulocyte # (Auto) 0.0, Prothrombin Time 14.9H, INR Comment 1.2, Acti vated Partial Thromboplast Time 40H, Sodium Level 142, Potassium Level 4.9, Chloride Level 107, Carbon Dioxide Level 24, Anion Gap 11, Blood Urea Nitrogen 30H, Creatinine 2.43H, Estimat Glomerular Filtration Rate 26, BUN/Creatinine Ratio 12, Glucose Level 168H, Calcium Level 8.7, Corrected Calcium 9.1, Magnesi um Level 2.3, Total Bilirubin 0.6, Aspartate Amino Transf (AST/SGOT) 20, Alanine Aminotransferase (ALT/SGPT) 17, Alkaline Phosphatase 88, Myoglobin 201.7H, Troponin I < 0.028, B-Type Natriuretic Peptide 358.0H, Total Protein 7.6, Albumin 3.5, Lipase 17 06/10/23 17:35: Influenza Type A (RT-PCR) Not Detected, Influenza Type B (RT-PCR) Not Detected, SARS-CoV-2 RNA (RT-PCR) Not Detected 06/11/23 04:30: White Blood Count 6.2, Red Blood Count 3.53L, Hemoglobin 10.4L, Hematocrit 33L, Mean Corpuscular Volume 94, Mean Corpuscular Hemoglobin 30, Mean Corpuscular Hemoglobin Concent 32, Red Cell Distribution Width 14.7H, Platelet Count 209, Mean Platelet Volume 10.0, Immature Granulocyte % (Auto) 0, Neutrophils (%) (Auto) 62, Lymphocytes (%) (Auto) 23, Monocytes (%) (Auto) 13H, Eosinophils (%) (Auto) 2, Basophils (%) (Auto) 0, Neutrophils # (Auto) 3.9, Lymphocytes # (Auto) 1.4, Monocytes # (Auto) 0.8, Eosinophils # (Auto) 0.1, Basophils # (Auto) 0.0, Immature Granulocyte # (Auto) 0.0, Sodium Level 142, Potassium Level 4.3, Chloride Level 107, Carbon Dioxide Level 28, Anion Gap 7, Blood Urea Nitrogen 30H, Creatinine 2.23H, Estimat Glomerular Filtration Rate 28, BUN/Creatinine Ratio 13, Glucose Level 126H, Calcium Level 8.0L, Corrected Calcium 8.8, Total Bilirubin 0.5, Aspartate Amino Transf (AST/SGOT) 16, Alanine Aminotransferase (ALT/SGPT) 14, Alkaline Phosphatase 70, Total Protein 6.4, Albumin 3.0L 06/12/23 04:26: White Blood Count 7.0, Red Blood Count 3.54L, Hemoglobin 10.4L, Hematocrit 34L, Mean Corpuscular Volume 97, Mean Corpuscular Hemoglobin 29, Mean Corpuscular Hemoglobin Concent 30L, Red Cell Distribution Width 14.6H, Platelet Count 209, Mean Platelet Volume 10.2, Immature Granulocyte % (Auto) 0, Neutrophils (%) (Auto) 60, Lymphocytes (%) (Auto) 24, Monocytes (%) (Auto) 13H, Eosinophils (%) (Auto) 3, Basophils (%) (Auto) 0, Neutrophils # (Auto) 4.2, Lymphocytes # (Auto) 1.7, Monocytes # (Auto) 0.9, Eosinophils # (Auto) 0.2, Basophils # (Auto) 0.0, Immature Granulocyte # (Auto) 0.0, Sodium Level 141, Potassium Level 5.1H, Chloride Level 108H, Carbon Dioxide Level 28, Anion Gap 5, Blood Urea Nitrogen 32H, Creatinine 2.36H, Estimat Glomerular Filtration Rate 26, BUN/Creatinine Ratio 14, Glucose Level 112H, Calcium Level 7.9L, Corrected Calcium 8.7, Total Bilirubin 0.4, Aspartate Amino Transf (AST/SGOT) 25, Alanine Aminotransferase (ALT/SGPT) 20, Alkaline Phosphatase 79, Total Protein 6.4, Albumin 3.0L 06/12/23 16:55: Glucometer 220H 06/12/23 19:27: Glucometer 198H 06/13/23 05:40: White Blood Count 9.4, Red Blood Count 3.67L, Hemoglobin 10.8L, Hematocrit 35L, Mean Corpuscular Volume 96, Mean Corpuscular Hemoglobin 29, Mean Corpuscular Hemoglobin Concent 31L, Red Cell Distribution Width 14.2, Platelet Count 213, Mean Platelet Volume 9.7, Immature Granulocyte % (Auto) 0, Neutrophils (%) (Auto) 68, Lymphocytes (%) (Auto) 18, Monocytes (%) (Auto) 10, Eosinophils (%) (Auto) 3, Basophils (%) (Auto) 0, Neutrophils # (Auto) 6.4, Lymphocytes # (Auto) 1.7, Monocytes # (Auto) 0.9, Eosinophils # (Auto) 0.3, Basophils # (Auto) 0.0, Immature Granulocyte # (Auto) 0.0, Sodium Level 141, Potassium Level 4.9, Chloride Level 107, Carbon Dioxide Level 26, Anion Gap 8, Blood Urea Nitrogen 31H, Creatinine 2.39H, Estimat Glomerular Filtration Rate 26, BUN/Creatinine Ratio 13, Glucose Level 122H, Calcium Level 8.3L, Corrected Calcium 8.9, Total Bilirubin 0.6, Aspartate Amino Transf (AST/SGOT) 23, Alanine Aminotransferase (ALT/SGPT) 24, Alkaline Phosphatase 80, Total Protein 7.0, Albumin 3.2 06/13/23 05:59: Glucometer 113H 06/13/23 08:12: Glucometer 182H 06/13/23 10:59: Glucometer 193H 06/13/23 16:15: Glucometer 224H 06/13/23 20:59: Glucometer 171H 06/14/23 05:48: Glucometer 143H 06/14/23 05:50: White Blood Count 9.6, Red Blood Count 3.48L, Hemoglobin 10.2L, Hematocrit 34L, Mean Corpuscular Volume 97, Mean Corpuscular Hemoglobin 29, Mean Corpuscular Hemoglobin Concent 30L, Red Cell Distribution Width 14.0, Platelet Count 186, Mean Platelet Volume 9.9, Immature Granulocyte % (Auto) 0, Neutrophils (%) (Auto) 70, Lymphocytes (%) (Auto) 14, Monocytes (%) (Auto) 13H, Eosinophils (%) (Auto) 2, Basophils (%) (Auto) 0, Neutrophils # (Auto) 6.8, Lymphocytes # (Auto) 1.3, Monocytes # (Auto) 1.2H, Eosinophils # (Auto) 0.2, Basophils # (Auto) 0.0, Immature Granulocyte # (Auto) 0.0, Sodium Level 140, Potassium Level 4.8, Chloride Level 104, Carbon Dioxide Level 27, Anion Gap 9, Blood Urea Nitrogen 30H, Creatinine 2.27H, Estimat Glomerular Filtration Rate 28, BUN/Creatinine Ratio 13, Glucose Level 149H, Calcium Level 8.4L, Corrected Calcium 9.1, Total Bilirubin 0.7, Aspartate Amino Transf (AST/SGOT) 17, Alanine Aminotransferase (ALT/SGPT) 20, Alkaline Phosphatase 72, Total Protein 6.8, Albumin 3.1L 06/14/23 11:20: Glucometer 207H 06/14/23 14:35: Glucometer 191H 06/14/23 19:38: Glucometer 159H 06/15/23 05:40: White Blood Count 7.9, Red Blood Count 3.40L, Hemoglobin 10.1L, Hematocrit 33L, Mean Corpuscular Volume 96, Mean Corpuscular Hemoglobin 30, Mean Corpuscular Hemoglobin Concent 31L, Red Cell Distribution Width 14.0, Platelet Count 190, Mean Platelet Volume 10.2, Immature Granulocyte % (Auto) 1, Neutrophils (%) (Auto) 62, Lymphocytes (%) (Auto) 21, Monocytes (%) (Auto) 12, Eosinophils (%) (Auto) 4, Basophils (%) (Auto) 0, Neutrophils # (Auto) 4.9, Lymphocytes # (Auto) 1.6, Monocytes # (Auto) 0.9, Eosinophils # (Auto) 0.4H, Basophils # (Auto) 0.0, Immature Granulocyte # (Auto) 0.0, Sodium Level 140, Potassium Level 4.5, Chloride Level 103, Carbon Dioxide Level 28, Anion Gap 9, Blood Urea Nitrogen 30H, Creatinine 2.13H, Estimat Glomerular Filtration Rate 30, BUN/Creatinine Ratio 14, Glucose Level 126H, Calcium Level 8.4L, Corrected Calcium 9.2, Total Bilirubin 0.6, Aspartate Amino Transf (AST/SGOT) 15, Alanine Aminotransferase (ALT/SGPT) 17, Alkaline Phosphatase 74, Total Protein 6.8, Albumin 3.0L 06/15/23 09:25: Glucometer 146H 06/15/23 15:13: Glucometer 242H 06/15/23 20:04: Glucometer 215H 06/16/23 05:13: White Blood Count 8.3, Red Blood Count 3.50L, Hemoglobin 10.3L, Hematocrit 33L, Mean Corpuscular Volume 95, Mean Corpuscular Hemoglobin 29, Mean Corpuscular Hemoglobin Concent 31L, Red Cell Distribution Width 14.0, Platelet Count 197, Mean Platelet Volume 9.9, Immature Granulocyte % (Auto) 0, Neutrophils (%) (A uto) 69, Lymphocytes (%) (Auto) 17, Monocytes (%) (Auto) 10, Eosinophils (%) (Auto) 4, Basophils (%) (Auto) 0, Neutrophils # (Auto) 5.7, Lymphocytes # (Auto) 1.4, Monocytes # (Auto) 0.8, Eosinophils # (Auto) 0.3, Basophils # (Auto) 0.0, Immature Granulocyte # (Auto) 0.0, Sodium Level 141, Potassium Level 4.6, Chloride Level 105, Carbon Dioxide Level 27, Anion Gap 9, Blood Urea Nitrogen 27H, Creatinine 1.88H, Estimat Glomerular Filtration Rate 35, BUN/Creatinine Ratio 14, Glucose Level 132H, Calcium Level 8.4L, Corrected Calcium 9.1, Total Bilirubin 0.7, Aspartate Amino Transf (AST/SGOT) 14, Alanine Aminotransferase (ALT/SGPT) 16, Alkaline Phosphatase 75, Total Protein 7.0, Albumin 3.1L 06/16/23 09:29: Glucometer 159H Pending Labs Laboratory Tests 06/10/23 16:28: White Blood Count 8.8, Red Blood Count 4.06, Hemoglobin 11.8, Hematocrit 38, Mean Corpuscular Volume 94, Mean Corpuscular Hemoglobin 29, Mean Corpuscular Hemoglobin Concent 31, Red Cell Distribution Width 14.6, Platelet Count 244, Me an Platelet Volume 10.1, Immature Granulocyte % (Auto) 0, Neutrophils (%) (Auto) 72, Lymphocytes (%) (Auto) 15, Monocytes (%) (Auto) 11, Eosinophils (%) (Auto) 1, Basophils (%) (Auto) 0, Neutrophils # (Auto) 6.3, Lymphocytes # (Auto) 1.3, Monocytes # (Auto) 1.0, Eosinophils # (Auto) 0.1, Basophils # (Auto) 0.0, Immature Granulocyte # (Auto) 0.0, Prothrombin Time 14.9, INR Comment 1.2, Activated Partial Thromboplast Time 40, Sodium Level 142, Potassium Level 4.9, Chloride Level 107, Carbon Dioxide Level 24, Anion Gap 11, Blood Urea Nitrogen 30, Creatinine 2.43, Estimat Glomerular Filtration Rate 26, BUN/Creatinine Ratio 12, Glucose Level 168, Calcium Level 8.7, Corrected Calcium 9.1, Magnesium Level 2.3, Total Bilirubin 0.6, Aspartate Amino Transf (AST/SGOT) 20, Alanine Aminotransferase (ALT/SGPT) 17, Alkaline Phosphatase 88, Myoglobin 201.7, Troponin I < 0.028, B-Type Natriuretic Peptide 358.0, Total Protein 7.6, Albumin 3.5, Lipase 17 06/10/23 17:35: Influenza Type A (RT-PCR) Not Detected, Influenza Type B (RT-PCR) Not Detected, SARS-CoV-2 RNA (RT-PCR) Not Detected 06/11/23 04:30: White Blood Count 6.2, Red Blood Count 3.53, Hemoglobin 10.4, Hematocrit 33, Mean Corpuscular Volume 94, Mean Corpuscular Hemoglobin 30, Mean Corpuscular Hemoglobin Concent 32, Red Cell Distribution Width 14.7, Platelet Count 209, Mean Platelet Volume 10.0, Immature Granulocyte % (Auto) 0, Neutrophils (%) (Auto) 62, Lymphocytes (%) (Auto) 23, Monocytes (%) (Auto) 13, Eosinophils (%) (Auto) 2, Basophils (%) (Auto) 0, Neutrophils # (Auto) 3.9, Lymphocytes # (Auto) 1.4, Monocytes # (Auto) 0.8, Eosinophils # (Auto) 0.1, Basophils # (Auto) 0.0, Immature Granulocyte # (Auto) 0.0, Sodium Level 142, Potassium Level 4.3, Chloride Level 107, Carbon Dioxide Level 28, Anion Gap 7, Blood Urea Nitrogen 30, Creatinine 2.23, Estimat Glomerular Filtration Rate 28, BUN/Creatinine Ratio 13, Glucose Level 126, Calcium Level 8.0, Corrected Calcium 8.8, Total Bilirubin 0.5, Aspartate Amino Transf (AST/SGOT) 16, Alanine Aminotransferase (ALT/SGPT) 14, Alkaline Phosphatase 70, Total Protein 6.4, Albumin 3.0 06/12/23 04:26: White Blood Count 7.0, Red Blood Count 3.54, Hemoglobin 10.4, Hematocrit 34, Mean Corpuscular Volume 97, Mean Corpuscular Hemoglobin 29, Mean Corpuscular Hemoglobin Concent 30, Red Cell Distribution Width 14.6, Platelet Count 209, Mean Platelet Volume 10.2, Immature Granulocyte % (Auto) 0, Neutrophils (%) (Auto) 60, Lymphocytes (%) (Auto) 24, Monocytes (%) (Auto) 13, Eosinophils (%) (Auto) 3, Basophils (%) (Auto) 0, Neutrophils # (Auto) 4.2, Lymphocytes # (Auto) 1.7, Monocytes # (Auto) 0.9, Eosinophils # (Auto) 0.2, Basophils # (Auto) 0.0, Immature Granulocyte # (Auto) 0.0, Sodium Level 141, Potassium Level 5.1, Chloride Level 108, Carbon Dioxide Level 28, Anion Gap 5, Blood Urea Nitrogen 32, Creatinine 2.36, Estimat Glomerular Filtration Rate 26, BUN/Creatinine Ratio 14, Glucose Level 112, Calcium Level 7.9, Corrected Calcium 8.7, Total Bilirubin 0.4, Aspartate Amino Transf (AST/SGOT) 25, Alanine Aminotransferase (ALT/SGPT) 20, Alkaline Phosphatase 79, Total Protein 6.4, Albumin 3.0 06/12/23 16:55: Glucometer 220 06/12/23 19:27: Glucometer 198 06/13/23 05:40: White Blood Count 9.4, Red Blood Count 3.67, Hemoglobin 10.8, Hematocrit 35, Mean Corpuscular Volume 96, Mean Corpuscular Hemoglobin 29, Mean Corpuscular Hemoglobin Concent 31, Red Cell Distribution Width 14.2, Platelet Count 213, Mean Platelet Volume 9.7, Immature Granulocyte % (Auto) 0, Neutrophils (%) (Auto) 68, Lymphocytes (%) (Auto) 18, Monocytes (%) (Auto) 10, Eosinophils (%) (Auto) 3, Basophils (%) (Auto) 0, Neutrophils # (Auto) 6.4, Lymphocytes # (Auto) 1.7, Monocytes # (Auto) 0.9, Eosinophils # (Auto) 0.3, Basophils # (Auto) 0.0, Immature Granulocyte # (Auto) 0.0, Sodium Level 141, Potassium Level 4.9, Chloride Level 107, Carbon Dioxide Level 26, Anion Gap 8, Blood Urea Nitrogen 31, Creatinine 2.39, Estimat Glomerular Filtration Rate 26, BUN/Creatinine Ratio 13, Glucose Level 122, Calcium Level 8.3, Corrected Calcium 8.9, Total Bilirubin 0.6, Aspartate Amino Transf (AST/SGOT) 23, Alanine Aminotransferase (ALT/SGPT) 24, Alkaline Phosphatase 80, Total Protein 7.0, Albumin 3.2 06/13/23 05:59: Glucometer 113 06/13/23 08:12: Glucometer 182 06/13/23 10:59: Glucometer 193 06/13/23 16:15: Glucometer 224 06/13/23 20:59: Glucometer 171 06/14/23 05:48: Glucometer 143 06/14/23 05:50: White Blood Count 9.6, Red Blood Count 3.48, Hemoglobin 10.2, Hematocrit 34, Mean Corpuscular Volume 97, Mean Corpuscular Hemoglobin 29, Mean Corpuscular Hemoglobin Concent 30, Red Cell Distribution Width 14.0, Platelet Count 186, Mean Platelet Volume 9.9, Immature Granulocyte % (Auto) 0, Neutrophils (%) (Auto) 70, Lymphocytes (%) (Auto) 14, Monocytes (%) (Auto) 13, Eosinophils (%) (Auto) 2, Basophils (%) (Auto) 0, Neutrophils # (Auto) 6.8, Lymphocytes # (Auto) 1.3, Monocytes # (Auto) 1.2, Eosinophils # (Auto) 0.2, Basophils # (Auto) 0.0, Immature Granulocyte # (Auto) 0.0, Sodium Level 140, Potassium Level 4.8, Chloride Level 104, Carbon Dioxide Level 27, Anion Gap 9, Blood Urea Nitrogen 30, Creatinine 2.27, Estimat Glomerular Filtration Rate 28, BUN/Creatinine Ratio 13, Glucose Level 149, Calcium Level 8.4, Corrected Calcium 9.1, Total Bilirubin 0.7, Aspartate Amino Transf (AST/SGOT) 17, Alanine Aminotransferase (ALT/SGPT) 20, Alkaline Phosphatase 72, Total Protein 6.8, Albumin 3.1 06/14/23 11:20: Glucometer 207 06/14/23 14:35: Glucometer 191 06/14/23 19:38: Glucometer 159 06/15/23 05:40: White Blood Count 7.9, Red Blood Count 3.40, Hemoglobin 10.1, Hematocrit 33, Mean Corpuscular Volume 96, Mean Corpuscular Hemoglobin 30, Mean Corpuscular Hemoglobin Concent 31, Red Cell Distribution Width 14.0, Platelet Count 190, Mean Platelet Volume 10.2, Immature Granulocyte % (Auto) 1, Neutrophils (%) (Auto) 62, Lymphocytes (%) (Auto) 21, Monocytes (%) (Auto) 12, Eosinophils (%) (Auto) 4, Basophils (%) (Auto) 0, Neutrophils # (Auto) 4.9, Lymphocytes # (Auto) 1.6, Monocytes # (Auto) 0.9, Eosinophils # (Auto) 0.4, Basophils # (Auto) 0.0, Immature Granulocyte # (Auto) 0.0, Sodium Level 140, Potassium Level 4.5, Chloride Level 103, Carbon Dioxide Level 28, Anion Gap 9, Blood Urea Nitrogen 30, Creatinine 2.13, Estimat Glomerular Filtration Rate 30, BUN/Creatinine Ratio 14, Glucose Level 126, Calcium Level 8.4, Corrected Calcium 9.2, Total Bilirubin 0.6, Aspartate Amino Transf (AST/SGOT) 15, Alanine Aminotransferase (ALT/SGPT) 17, Alkaline Phosphatase 74, Total Protein 6.8, Albumin 3.0 06/15/23 09:25: Glucometer 146 06/15/23 15:13: Glucometer 242 06/15/23 20:04: Glucometer 215 06/16/23 05:13: White Blood Count 8.3, Red Blood Count 3.50, Hemoglobin 10.3, Hematocrit 33, Mean Corpuscular Volume 95, Mean Corpuscular Hemoglobin 29, Mean Corpuscular Hemoglobin Concent 31, Red Cell Distribution Width 14.0, Platelet Count 197, Mean Platelet Volume 9.9, Immature Granulocyte % (Auto) 0, Neutrophils (%) (Auto) 69, Lymphocytes (%) (Auto) 17, Monocytes (%) (Auto) 10, Eosinophils (%) (Auto) 4, Basophils (%) (Auto) 0, Neutrophils # (Auto) 5.7, Lymphocytes # (Auto) 1.4, Monocytes # (Auto) 0.8, Eosinophils # (Auto) 0.3, Basophils # (Auto) 0.0, Immature Granulocyte # (Auto) 0.0, Sodium Level 141, Potassium Level 4.6, Chloride Level 105, Carbon Dioxide Level 27, Anion Gap 9, Blood Urea Nitrogen 27, Creatinine 1.88, Estimat Glomerular Filtration Rate 35, BUN/Creatinine Ratio 14, Glucose Level 132, Calcium Level 8.4, Corrected Calcium 9.1, Total Bilirubin 0.7, Aspartate Amino Transf (AST/SGOT) 14, Alanine Aminotransferase (ALT/SGPT) 16, Alkaline Phosphatase 75, Total Protein 7.0, Albumin 3.1 06/16/23 09:29: Glucometer 159 Discharge Home Medications: Active Scripts Active Tab-A-Oleksandr Multivit with Iron (Multivitamin/Iron/Folic Acid) 18 Mg Iron-400 Mcg Tablet 1 Ea PO DAILY@0700 Acetaminophen 325 Mg Tablet 650 Mg PO Q4H PRN Oxyir Tablet (Oxycodone HCl) 5 Mg Tab 5 Mg PO Q4HR PRN Metoprolol Tartrate 25 Mg Tablet 25 Mg PO BID Hydralazine HCl 25 Mg Tablet 50 Mg PO Q4H PRN Albuterol Sulfate 2.5 Mg/3 Ml (0.083 %) Vial.neb 2.5 Mg INH RTQ4HR PRN Insulin Lispro Jared Kwikpen (Insulin Lispro) 100 Unit/Ml Ins.pen.hf 3 Units SC AC 3 units before meals Docusate Sodium 100 Mg Capsule 100 Mg PO BID Fluticasone Propionate 50 Mcg/Actuation [place].susp 0 [place] NS DAILY 2 puffs each nostril daily Montelukast Sodium 10 Mg Tablet 10 Mg PO HS Diltiazem 24Hr ER (Diltiazem HCl) 180 Mg Cap.er.24h 180 Mg PO DAILY Eliquis (Apixaban) 2.5 Mg Tablet 2.5 Mg PO BID Cetirizine HCl 10 Mg Tablet 10 Mg PO DAILY Aspirin EC (Aspirin) 81 Mg Tablet.dr 81 Mg PO DAILY Hydralazine HCl 50 Mg Tablet 50 Mg PO 0000,0300,1600 Finasteride 5 Mg Tablet 5 Mg PO DAILY Isosorbide Mononitrate ER (Isosorbide Mononitrate) 60 Mg Tab 120 Mg PO DAILY TAKES 2 (60MG) TABS Flomax (Tamsulosin HCl) 0.4 Mg Cap 0.8 Mg PO DAILY Levemir Flexpen (Insulin Detemir) 100 Unit/Ml (3 Ml) Insuln.pen 25 Unit SQ BID Trazodone HCl 50 Mg Tablet 50 Mg PO HS Stimulant Laxative Plus Tablet (Sennosides/Docusate Sodium) 8.6 Mg-50 Mg Tablet 17.2 Mg PO DAILY TAKES 2 (8.6MG) TABS Omeprazole 40 Mg Capsule.dr 40 Mg PO DAILY Furosemide 40 Mg Tablet 40 Mg PO DAILY Preservision Areds 2 Softgel (Vit C/E/Zn/Coppr/Lutein/Zeaxan) 250MG-90MG Capsule 1 Each PO DAILY Instructions to patient/family Please see electronic discharge instructions given to patient. GAYLE OWUSU DO Jun 16, 2023 11:03
[2023-06-16 11:19] VITALS: BP 148/76
--- NOTE | 2023-06-16 11:47 | Diagnostic Imaging Report ---
INDICATION: Progressive dyspnea. FINDINGS: There is cardiomegaly. There is some venous congestion. There are patchy bibasilar infiltrates. No pleural effusion or pneumothorax. Mediastinum is unremarkable. There appears to be a right pleural effusion. IMPRESSION: Patchy bibasilar infiltrates and small right pleural effusion. Cardiomegaly and some central pulmonary venous congestion. Dictated by: Dictated on workstation # [id number]
--- NOTE | 2023-06-16 13:24 | Progress Note ---
AMAIRANI KERR 06/16/23 1324: Progress Note Hospital course: 82-year-old male with history of Afib, benign prostatic hyperplasia, bladder infection, DM, and renal failure presented to ED with shortness of breath. CXR showed cardiomegaly with central vascular congestion and some interstitial edema. Venous doppler study was negative for DVT in bilateral lower extremities. BNP was in the 300's w/o clinical evidence of CHF. Patient was admitted 06/10/23 with [id number] renal failure. During his hospital stay, he had a slow recovery and HTN was treated with hydralazine and isosorbide mononitrate. A sosa catheter was required due to urinary retention and he was given long-acting diltiazem for Afib & furosemide for the edema. Kaylie ent was transferred to [facility] and overall, gradually started to fell better and his shortness of breath improved, but did experience some constipation that required an enema. His eGFR was 35 prior to discharge and his lower leg edema stayed stable (R>L) throughout the stay. Patient was discharged on 06/16/23 to a skilled nursing. LOIDA VILCHIS DO 06/16/23 1938: Supervisory-Addendum Brief Verification & Attestation Participated in pt care: history, MDM, physical Personally performed: exam, history, MDM, supervision of care Care discussed with: Medical Student Procedures: n/a Results interpretation: Verified all documentation Verification and Attestation of Medical Student E/M Service A medical student performed and documented this service in my presence. I reviewed and verified all information documented by the medical student and made modifications to such information, when appropriate. I personally performed the physical exam and medical decision making. Loida Vilchis Jun 16, 2023,19:38 AMAIRANI KERR Jun 16, 2023 13:24 LOIDA VILCHIS DO Jun 16, 2023 19:38
[2023-06-16 13:46] VITALS: BP 148/76
[2023-06-16] MEDS ORDERED: meTOprolol TARTRATE (IR) 25 MG TABLET PO SCH (21:00)
== END 2023-06-16 12:55 | DRG 683 ==
LOC: EDUNIT# 16:19 → ER 16:19 → CSD 20:13 → 4TH 06-12 15:25 → OBSVTOIN 06-13 12:57 → 4TH 06-16 11:29
PROVIDERS: ADMIT Internal Medicine; ATTEND Internal Medicine
DX: N17.9 Acute kidney failure, unspecified (principal); E66.2 Morbid (severe) obesity with alveolar hypoventilation; Z68.41 Body mass index [BMI] 40.0-44.9, adult; N40.0 Benign prostatic hyperplasia without lower urinary tract symptoms; Z20.822 Contact with and (suspected) exposure to COVID-19; E11.22 Type 2 diabetes mellitus with diabetic chronic kidney disease; Z79.4 Long term (current) use of insulin; I48.0 Paroxysmal atrial fibrillation; R09.02 Hypoxemia; E87.70 Fluid overload, unspecified; Z79.82 Long term (current) use of aspirin; Z79.899 Other long term (current) drug therapy; H35.30 Unspecified macular degeneration; I25.10 Atherosclerotic heart disease of native coronary artery without angina pectoris; I25.2 Old myocardial infarction; E11.40 Type 2 diabetes mellitus with diabetic neuropathy, unspecified; N18.32 Chronic kidney disease, stage 3b; I87.2 Venous insufficiency (chronic) (peripheral); I12.9 Hypertensive chronic kidney disease with stage 1 through stage 4 chronic kidney disease, or unspecified chronic kidney disease
CPT/HCPCS: 36415; 51702; 71045; 71046; 73560; 73610; 80053; 82947; 83690; 83735; 83874; 83880; 84484; 85025; 85610; 85730; 87636; 93005; 93041; 93970; 94640; 94664; 94760; G0378

== ENCOUNTER 2023-06-17 07:47 | Inpatient (IN) | payer MEDICARE ==
[~2023-06-17] VITALS: Ht 177 cm; Wt 110.4 kg
[~2023-06-17 07:47] MED LIST changes: +ALBU2.5V4 INH; +INSU100I60 SC; +METO-333 PO; +MULT-1137 PO; +OXC5T PO
[2023-06-17] MEDS ORDERED: RT-Ipratropium/Albuterol NEB 3 ML VIAL ONE ×2 (07:57→08:24)
[2023-06-17] MEDS ORDERED: RT-Ipratropium/Albuterol NEB 3 ML VIAL INH ONE (08:00)
[2023-06-17] MEDS ORDERED: ONDANSETRON INJECTION 4 MG/2 ML (SDV) ONE (08:10)
[2023-06-17] MEDS ORDERED: ONDANSETRON INJECTION 4 MG/2 ML (SDV) IVP ONE (08:15)
[2023-06-17 08:18] LABS: BASOPHILS # (AUTO) 0.1 10^3/uL (0.0-0.1); BASOPHILS % (AUTO) 0 % (0-10); EOSINOPHILS # (AUTO) 0.2 10^3/uL (0.0-0.3); EOSINOPHILS % (AUTO) 1 % (0-10); HEMATOCRIT 38 % (40-54); HEMOGLOBIN 11.8 g/dL (13.3-17.7); LYMPHOCYTES # (AUTO) 1.5 10^3/uL (1.0-4.0); LYMPHOCYTES % (AUTO) 10 % (12-44); MEAN CORPUSCULAR HEMOGLOBIN 30 pg (25-34); MEAN CORPUSCULAR HGB CONC 31 g/dL (32-36); MEAN CORPUSCULAR VOLUME 98 fL (80-99); MEAN PLATELET VOLUME 10.1 fL (9.0-12.2); MONOCYTES # (AUTO) 1.1 10^3/uL (0.0-1.0); MONOCYTES % (AUTO) 8 % (0-12); NEUTROPHILS # (AUTO) 11.5 10^3/uL (1.8-7.8); NEUTROPHILS % (AUTO) 80 % (42-75); PLATELET COUNT 221 10^3/uL (130-400); WHITE BLOOD COUNT 14.4 10^3/uL (4.3-11.0)
[2023-06-17] MEDS ORDERED: RT-ALBUTEROL SULF 2.5 MG/3 ML PRE-MIX VIAL ONE (08:24)
[2023-06-17 08:28] LABS: ALBUMIN 3.3 GM/DL (3.2-4.5); CHLORIDE 102 MMOL/L (98-107); POTASSIUM 4.7 MMOL/L (3.6-5.0); SODIUM 141 MMOL/L (135-145)
[2023-06-17 08:29] LABS: CALCIUM 8.8 MG/DL (8.5-10.1)
[2023-06-17 08:30] VITALS: BP 158/74
[2023-06-17 08:30] LABS: GLUCOSE 198 MG/DL (70-105); INR 1.2 (0.8-1.4); PROTHROMBIN TIME PATIENT 15.6 SEC (12.2-14.7); TOTAL PROTEIN 7.8 GM/DL (6.4-8.2)
[2023-06-17] MEDS ORDERED: NITROGLYCERIN 2% OINT 1 GM UNIT DOSE PACKET TOP ONE (08:30)
[2023-06-17 08:32] LABS: BILIRUBIN,TOTAL 1.5 MG/DL (0.1-1.0); CARBON DIOXIDE 27 MMOL/L (21-32)
[2023-06-17 08:34] LABS: ALKALINE PHOSPHATASE 83 U/L (40-136); CREATININE SERUM 1.71 MG/DL (0.60-1.30); GFR ESTIMATED 39
[2023-06-17 08:35] LABS: BILIRUBIN,URINE 1+ (NEGATIVE); CLARITY,URINE SLIGHTLY CLOUDY; COLOR,URINE YELLOW; GLUCOSE, URINE (UA) TRACE (NEGATIVE); KETONES,URINE 1+ (NEGATIVE); NITRITE,URINE NEGATIVE (NEGATIVE); PH,URINE 5.5 (5-9); PROTEIN,URINE 3+ (NEGATIVE)
[2023-06-17 08:35] LABS: BUN/CREATININE RATIO 15
[2023-06-17 08:36] LABS: AMORPHOUS SEDIMENT,UR MOD AMOR URATES /LPF; BACTERIA,URINE FEW /HPF; HYALINE CASTS, URINE 0-2 /LPF; LEUKOCYTE ESTERASE ,URINE NEGATIVE (NEGATIVE); SQUAMOUS EPITHELIAL CELL,UR 0-2 /HPF
[2023-06-17 08:37] LABS: ALANINE AMINOTRANSFERASE 17 U/L (0-55); MAGNESIUM 2.1 MG/DL (1.6-2.4)
--- NOTE | 2023-06-17 08:37 | Diagnostic Imaging Report ---
EXAMINATION: Chest 1 view HISTORY: Shortness of breath. Respiratory distress. COMPARISON: 06/16/2023. FINDINGS: Cardiomegaly is again seen with persistent and worsening central pulmonary vascular congestion and prominent interstitial markings throughout the lungs. Increasing opacities are seen in the right lung base with possible small right pleural effusion. No pneumothorax. IMPRESSION: 1. Cardiomegaly with worsening pulmonary edema. 2. Right-sided pleural effusion. Dictated by: Dictated on workstation # [id number]
[2023-06-17 08:39] LABS: EOSINOPHILS % (MANUAL) 2 %; LYMPHOCYTES % (MANUAL) 7 %; MONOCYTES % (MANUAL) 5 %; NEUTROPHILS % (MANUAL) 86 %; RBC MORPH NORMAL
[2023-06-17] MEDS ORDERED: FUROSEMIDE INJECTION 40 MG/4 ML VIAL IVP ONE (08:45)
[2023-06-17] MEDS ORDERED: CEFEPIME INJECTION 2,000 MG in NS (IVPB) 50 ML 50 ML IV ONE (08:45)
--- NOTE | 2023-06-17 09:24 | ED General ---
General Chief Complaint: Respiratory Problems Stated Complaint: SOA Nursing Triage Note: ARRIVED VIA EMS FROM [facility]. PT WAS DC FROM HOSPITAL YESTERDAY AND ADMITTED THERE. PT SENT TO ER FOR SOA. PT AWAKE ET BELLY BREATHING ON A SIMPLE MASK AT 10L. Source of Information: Patient, EMS, Care Home Records, Old Records Exam Limitations: No Limitations History of Present Illness Date Seen by Provider: Jun 17, 2023 Time Seen by Provider: 07:48 Initial Comments This 82-year-old gentleman presents to the emergency room via EMS from [facility] where he was admitted yesterday after discharge from the hospital. Primary complaint was shortness of breath and altered mental status. Patient had history of recent admissions including admission for pneumonia on May 07 and admission for acute on chronic renal failure June 13. EMS noted oxygen saturation of around 90% on high flow nonrebreather. End-tidal CO2 was as high as 68 and was declining in route. Blood sugar was 174. Patient had significant decreased alertness but was r esponsive on arrival. He is afebrile. He later reports he has not received his morning medications. CODE STATUS is full according to prior documentation and patient's request. BiPAP was initiated shortly after patient's arrival. He did vomit and BiPAP mask was removed before a significant volume was expelled. He was kept on an oxy mask for several minutes until Zofran was given. Nausea resolved and BiPAP was employed again. Patient denies pain. Prior cardiology documentation was reviewed. Patient has history of paroxysmal atrial fibrillation with episode of RVR. He has EF of 55 to 60% with grade 2 diastolic dysfunction on recent echo. There was no significant obstructive disease on his most recent cardiac cath but he was noted to have slow flow. Allergies and Home Medications Allergies Coded Allergies: Sulfa (Sulfonamide Antibiotics) (Unverified Allergy, Unknown, 10/10/19) Patient Home Medication List Home Medication List Reviewed: Yes Acetaminophen (Acetaminophen) 325 Mg Tablet, 650 MG PO Q4H PRN for TEMPERATURE Prescribed by: GAYLE OWUSU on 06/16/23 1101 Albuterol Sulfate (Albuterol Sulfate) 2.5 Mg/3 Ml (0.083 %) Vial.neb, 2.5 MG INH RTQ4HR PRN for SOA Prescribed by: GAYLE OWUSU on 06/16/23 1101 Apixaban (Eliquis) 2.5 Mg Tablet, 2.5 MG PO BID Prescribed by: GAYLE OWUSU on 06/16/231100 Aspirin (Aspirin EC) 81 Mg Tablet.dr, 81 MG PO DAILY Prescribed by: GAYLE OWUSU on 06/16/231100 Cetirizine HCl (Cetirizine HCl) 10 Mg Tablet, 10 MG PO DAILY Prescribed by: GAYLE OWUSU on 06/16/231100 Diltiazem HCl (Diltiazem 24Hr ER) 180 Mg Cap.er.24h, 180 MG PO DAILY Prescribed by: GAYLE OWUSU on 06/16/231100 Docusate Sodium (Docusate Sodium) 100 Mg Capsule, 100 MG PO BID Prescribed by: GAYLE OWUSU on 06/16/231100 Finasteride (Finasteride) 5 Mg Tablet, 5 MG PO DAILY Prescribed by: GAYLE OWUSU on 06/16/231100 Fluticasone Propionate (Fluticasone Propionate) 50 Mcg/Actuation [place].susp, 0 SPRAY NS DAILY Prescribed by: GAYLE OWUSU on 06/16/231100 Furosemide (Furosemide) 40 Mg Tablet, 40 MG PO DAILY Prescribed by: GYALE OWUSU on 06/16/231100 Hydralazine HCl (Hydralazine HCl) 50 Mg Tablet, 50 MG PO 0000,0300,1600 Prescribed by: GAYLE OWUSU on 06/16/231100 Hydralazine HCl (Hydralazine HCl) 25 Mg Tablet, 50 MG PO Q4H PRN for sbp>158 Prescribed by: GAYLE OWUSU on 06/16/231100 Insulin Detemir (Levemir Flexpen) 100 Unit/Ml (3 Ml) Insuln.pen, 25 UNIT SQ BID Prescribed by: GAYLE OWUSU on 06/16/231100 Insulin Lispro (Insulin Lispro Jared Kwikpen) 100 Unit/Ml Ins.pen.hf, 3 UNITS SC AC Prescribed by: GAYLE OWUSU on 06/16/231100 Isosorbide Mononitrate (Isosorbide Mononitrate ER) 60 Mg Tab, 120 MG PO DAILY Prescribed by: GAYLE OWUSU on 06/16/231100 Metoprolol Tartrate (Metoprolol Tartrate) 25 Mg Tablet, 25 MG PO BID Prescribed by: GAYLE OWUSU on 06/16/23 110 Montelukast Sodium (Montelukast Sodium) 10 Mg Tablet, 10 MG PO HS Prescribed by: GAYLE OWUSU on 06/16/231100 Multivitamin/Iron/Folic Acid (Tab-A-Oleksandr Multivit with Iron) 18 Mg Iron-400 Mcg Tablet, 1 EA PO DAILY@0700 Prescribed by: GAYLE OWUSU on 06/16/231100 Omeprazole (Omeprazole) 40 Mg Capsule.dr, 40 MG PO DAILY Prescribed by: GAYLE OWUSU on 06/16/231100 Oxycodone Hcl (Oxyir Tablet) 5 Mg Tab, 5 MG PO Q4HR PRN for PAIN-SEE DOSE INSTRUCTIONS Prescribed by: GAYLE OWUSU on 06/16/231100 Sennosides/Docusate Sodium (Stimulant Laxative Plus Tablet) 8.6 Mg-50 Mg Tablet, 17.2 MG PO DAILY Prescribed by: GAYLE OWUSU on 06/16/231100 Tamsulosin HCl (Flomax) 0.4 Mg Cap, 0.8 MG PO DAILY Prescribed by: GAYLE OWUSU on 06/16/23 110 Trazodone HCl (Trazodone HCl) 50 Mg Tablet, 50 MG PO HS Prescribed by: GAYLE OWUSU on 06/16/23 110 Vit C/E/Zn/Coppr/Lutein/Zeaxan (Preservision Areds 2 Softgel) 250MG-90MG Capsule, 1 EACH PO DAILY Prescribed by: GAYLE OWUSU on 05/12/23 1039 Discontinued Medications Carvedilol (Carvedilol) 25 Mg Tablet, 25 MG PO BID Prescribed by: GAYLE OWUSU on 05/12/23 103 Review of Systems Review of Systems Constitutional: no symptoms reported EENTM: no symptoms reported Respiratory: see HPI Cardiovascular: see HPI Gastrointestinal: no symptoms reported Genitourinary: no symptoms reported Musculoskeletal: no symptoms reported Skin: no symptoms reported Psychiatric/Neurological: See HPI Hematologic/Lymphatic: No Symptoms Reported Immunological/Allergic: no symptoms reported Past Kyzapbq-Gmyimj-Luabiq Hx Patient Social History Tobacco Use?: No Use of E-Cig and/or Vaping dev: No Use of E-Cig and/or Vaping Pelon: Unknown if Ever Used Alcohol Use?: No Immunizations Up To Date Tetanus Booster (TDap): Less than 5yrs First/Initial COVID19 Vaccinat: RECEIVED, UNK WHEN Second COVID19 Vaccination Zoltan: RECEIVED, UNK WHEN Third COVID19 Vaccination Date: RECEIVED, UNK WHEN Seasonal Allergies Seasonal Allergies: No Past Medical History Surgery/Hospitalization HX: diverticulitis, htn, bph, macular degeneration, iddm Surgeries: Yes (CARDIAC CATH --NO INTERVENTION) Cardiac Respiratory: Yes (Pneumonia patient states "when i was 1") Pneumonia Cardiac: Yes (CARDIAC CATH-NO INTERVENTION;NSTEMI 10/2019;[facility] RIGHT LEG EDEMA- US NEGATIVE) Atrial Fibrillation Neurological: Yes (PERIPHERAL NEUROPATHY) Neuropathy Genitourinary: Yes (Chronic kidney disease stage 3 ; GFR TYPICALLY IN 30'S) Benign Prostatic Hyperpl, Bladder Infection, Renal Failure Gastrointestinal: Yes (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;DIVERTICULITIS-NO SURGERY) Diverticulosis, Gall Bladder Disease Musculoskeletal: No Endocrine: Yes (SELF MEDICATES WITH HIS INSULIN; OBESITY) Diabetes, Insulin dep HEENT: No (patient wears glasses ) Loss of Vision: Denies Hearing Impairment: Denies Cancer: No Psychosocial: No Integumentary: No Blood Disorders: No Family Medical History Cardiovascular disease 19 FATHER Hypertension 19 FATHER No Pertinent Family Hx, CAD Over 55 Years Old, Hypertension PAST SURGICAL HISTORY: -CARDIAC CATH 11/09/19--DIFFUSELY CALCIFIED CORONARY ARTERIES, SMALL VESSEL DISEASE, NO INTERVENTION - Physical Exam-Suspected Sepsis Physical Exam Vital Signs Vital Signs - First Documented 06/17/23 06/17/23 07:47 11:17 Temp 36.7 Pulse 125 Resp 24 B/P (MAP) 182/90 (120) O2 Delivery Simple Mask O2 Flow Rate 10.00 FiO2 50 Capillary Refill : Blood Pressure Mean: 120 Height, Weight, BMI Height: 5'7.00" Weight: 200lbs. oz. 90.957962qh; 34.00 BMI Method:Estimated General Appearance: WD/WN, Moderate Distress, Obese HEENT: PERRL/EOMI, Normal ENT Inspection Neck: Normal Inspection Respiratory: Crackles, Decreased Breath Sounds Cardiovascular: Regular Rate, Rhythm, No Murmur Gastrointestinal: Non Tender, Soft; No Distended Extremity: Non Tender, Pedal Edema, Swelling Neurologic/Psychiatric: Motor Weakness (Generalized), Other (Decreased alertness initially. After BiPAP therapy he is more alert and able to answer questions clearly.) Skin: normal color, warm/dry Focused Exam Lactate Level 06/17/23 08:00: Lactic Acid Level 0.81 Lactic Acid Level Progress/Results/Core Measures Suspected Sepsis SIRS Temperature: Pulse: 125 Respiratory Rate: 24 Laboratory Tests 06/17/23 08:00: White Blood Count 14.4H Blood Pressure 182 /90 Mean: 120 06/17/23 08:00: Lactic Acid Level 0.81 Laboratory Tests 06/17/23 08:00: Creatinine 1.71H, INR Comment 1.2, Platelet Count 221, Total Bilirubin 1.5H Results/Orders Lab Results Laboratory Tests Test 06/17/23 08:00 06/17/23 08:11 06/17/23 08:20 06/17/23 11:00 Range/Units White Blood Count 14.4 H 4.3-11.0 10^3/uL Red Blood Count 3.88 L 4.30-5.52 10^6/uL Hemoglobin 11.8 L 13.3-17.7 g/dL Hematocrit 38 L 40-54 % Mean Corpuscular Volume 98 80-99 fL Mean Corpuscular Hemoglobin 30 25-34 pg Mean Corpuscular Hemoglobin Concent 31 L 32-36 g/dL Red Cell Distribution Width 14.2 10.0-14.5 % Platelet Count 221 130-400 10^3/uL Mean Platelet Volume 10.1 9.0-12.2 fL Immature Granulocyte % (Auto) 1 % Neutrophils (%) (Auto) 80 H 42-75 % Lymphocytes (%) (Auto) 10 L 12-44 % Monocytes (%) (Auto) 8 0-12 % Eosinophils (%) (Auto) 1 0-10 % Basophils (%) (Auto) 0 0-10 % Neutrophils # (Auto) 11.5 H 1.8-7.8 10^3/uL Lymphocytes # (Auto) 1.5 1.0-4.0 10^3/uL Monocytes # (Auto) 1.1 H 0.0-1.0 10^3/uL Eosinophils # (Auto) 0.2 0.0-0.3 10^3/uL Basophils # (Auto) 0.1 0.0-0.1 10^3/uL Immature Granulocyte # (Auto) 0.1 0.0-0.1 10^3/uL Neutrophils % (Manual) 86 % Lymphocytes % (Manual) 7 % Monocytes % (Manual) 5 % Eosinophils % (Manual) 2 % Blood Morphology Comment NORMAL Prothrombin Time 15.6 H 12.2-14.7 SEC INR Comment 1.2 0.8-1.4 Activated Partial Thromboplast Time 38 H 24-35 SEC Sodium Level 141 135-145 MMOL/L Potassium Level 4.7 3.6-5.0 MMOL/L Chloride Level 102 98-107 MMOL/L Carbon Dioxide Level 27 21-32 MMOL/L Anion Gap 12 5-14 MMOL/L Blood Urea Nitrogen 26 H 7-18 MG/DL Creatinine 1.71 H 0.60-1.30 MG/DL Estimat Glomerular Filtration Rate 39 BUN/Creatinine Ratio 15 Glucose Level 198 H 70-105 MG/DL Lactic Acid Level 0.81 0.50-2.00 MMOL/L Calcium Level 8.8 8.5-10.1 MG/DL Corrected Calcium 9.4 8.5-10.1 MG/DL Magnesium Level 2.1 1.6-2.4 MG/DL Total Bilirubin 1.5 H 0.1-1.0 MG/DL Aspartate Amino Transf (AST/SGOT) 23 5-34 U/L Alanine Aminotransferase (ALT/SGPT) 17 0-55 U/L Alkaline Phosphatase 83 40-136 U/L Myoglobin 207.3 H 10.0-92.0 NG/ML Troponin I < 0.028 <0.028 NG/ML C-Reactive Protein High Sensitivity 8.45 H 0.00-0.50 MG/DL B-Type Natriuretic Peptide 245.4 H <100.0 PG/ML Total Protein 7.8 6.4-8.2 GM/DL Albumin 3.3 3.2-4.5 GM/DL Influenza Type A (RT-PCR) Not Detected Not Detecte Influenza Type B (RT-PCR) Not Detected Not Detecte SARS-CoV-2 RNA (RT-PCR) Not Detected Not Detecte Urine Color YELLOW Urine Clarity SLIGHTLY CLOUDY Urine pH 5.5 5-9 Urine Specific [place] >=1.030 1.016-1.022 Urine Protein 3+ H NEGATIVE Urine Glucose (UA) TRACE H NEGATIVE Urine Ketones 1+ H NEGATIVE Urine Nitrite NEGATIVE NEGATIVE Urine Bilirubin 1+ H NEGATIVE Urine Urobilinogen 2.0 < = 1.0 MG/DL Urine Leukocyte Esterase NEGATIVE NEGATIVE Urine RBC (Auto) 2+ H NEGATIVE Urine RBC 10-25 H /HPF Urine WBC 2-5 /HPF Urine Squamous Epithelial Cells 0-2 /HPF Urine Crystals PRESENT H /LPF Urine Amorphous Sediment MOD RAUL URATES H /LPF Urine Bacteria FEW H /HPF Urine Casts PRESENT /LPF Urine Hyaline Casts 0-2 H /LPF Urine Granular Casts 2-5 H /LPF Urine Mucus NEGATIVE /LPF Urine Culture Indicated YES Glucometer 173 H 70-110 MG/DL Micro Results Microbiology 06/17/23 Blood Culture - Preliminary, Resulted No growth 06/17/23 Urine Culture - Final, Complete NO GROWTH 06/17/23 Blood Culture - Preliminary, Resulted No growth My Orders Orders - ARAMIS CHAMORRO MD Ipratropium/Albuterol Inh Soln (Ipratrop (06/17/23 07:57) Cbc With Automated Diff (06/17/23 07:57) Comprehensive Metabolic Panel (06/17/23 07:57) Blood Culture (06/17/23 07:57) Urinalysis (06/17/23 07:57) Urine Culture (06/17/23 07:57) Protime With Inr (06/17/23 07:57) Partial Thromboplastin Time (06/17/23 07:57) Chest 1 View, Ap/Pa Only (06/17/23 07:57) Ed Iv/Invasive Line Start (06/17/23 07:57) O2 (06/17/23 07:57) Lactic Acid Analyzer (06/17/23 07:57) Bnp Bee (06/17/23 07:57) Hs C Reactive Protein (06/17/23 07:57) Magnesium (06/17/23 07:57) Ekg Tracing (06/17/23 07:57) Myoglobin Serum (06/17/23 07:57) Monitor-Rhythm Ecg Trace Only (06/17/23 07:57) Troponin I Bee (06/17/23 07:57) Ipratropium/Albuterol Inh Soln (Ipratrop (06/17/23 08:00) Covid 19 Inhouse Test (06/17/23 07:57) Influenza A And B By Pcr (06/17/23 07:57) Ondansetron Injection (Zofran Injectio (06/17/23 08:10) Ondansetron Injection (Zofran Injectio (06/17/23 08:15) Manual Differential (06/17/23 08:00) Ipratropium/Albuterol Inh Soln (Ipratrop (06/17/23 08:24) Albuterol Pre-Mix Nebs (Rt) (Albuterol (06/17/23 08:24) Nitroglycerin Ointment (Nitrobid Ointme (06/17/23 08:30) Furosemide Injection (Furosemide Injec (06/17/23 08:45) Cefepime Injection (Cefepime Injection) (06/17/23 08:45) Lorazepam Injection (Lorazepam Injection (06/17/23 08:45) Ed Admission (Communication) (06/17/23 10:12) Lorazepam Injection (Lorazepam Injection (06/17/23 10:15) Lorazepam Injection (Lorazepam Injection (06/17/23 10:16) Medications Given in ED Vital Signs/I&O 06/18/23 19:46 O2 Delivery Nasal Cannula O2 Flow Rate 4.00 Capillary Refill : Blood Pressure Mean: 120 Progress Note : Time: 09:30 Progress Note Patient was followed into the room with EMS and immediately assessed. Report was received from EMS and shelter chart was reviewed. EMR record was later reviewed as well. RT services were immediately employed and BiPAP was initiated with a DuoNeb treatment. Patient continued to have poor air movement prompting an hour-long nebulizer treatment. BiPAP did improve his mental status and he was much more alert and conversational, although disoriented to place and situation. Patient was able to engage in conversation about CODE STATUS and requested full code. Patient had 1 episode of vomiting. BiPAP mask was removed before a significant amount of emesis was produced. Zofran 8 mg IV was administered and nausea resolved. Patient felt like he could resume BiPAP t herapy. BiPAP was employed again with an hour-long nebulizer treatment. Patient tolerated it well but felt anxious. A small dose of Ativan 0.25 mg was administered to help him with BiPAP associated anxiety. This worked well for him. Labs were reviewed and interpreted in their entirety. CBC was notable for leukocytosis of 14. Hemoglobin was slightly low at 11.8. CRP was mildly elevated at 8.45. Given recent pneumonia, leukocytosis, elevation in CRP, and respiratory failure, recurrent pneumonia cannot be ruled out cefepime was ordered for initial antibiotic therapy after blood cultures were drawn. Glucose was elevated at 198. Creatinine was improved from priors at 1.71. BNP was minimally elevated at 245. Chest x-ray was viewed by me and compared with prior. By my interpretation there was increased evidence of failure and possibly superimposed infiltrate. Radiologist's report was also reviewed and indicated a worsening congestion. Since patient was hypertensive with evidence of failure on chest x-ray, he was further treated with nitroglycerin paste and Lasix 40 mg IV. Patient was stable. Most recent blood pressure was 111/58 which we will watch very closely. Patient remains in sinus rhythm on monitor. Lactic acid was normal. EKG demonstrated sinus tachycardia with no ischemic changes by my interpretation. ABG is pending. ECG Initial ECG Impression Date: Jun 17, 2023 Initial ECG Impression Time: 08:28 Initial ECG Rate: 119 Initial ECG Rhythm: S.Tach Comment Sinus tachycardia with no ischemic ST elevation or depression. No significant abnormal intervals or axis deviation. Diagnostic Imaging Diagonstic Imaging: Xray Plain Films/CT/US/NM/MRI: chest Comments NAME: MILDRED YORK MED REC#: [id number] PT STATUS: REG ER : 1940 PHYSICIAN: ARAMIS CHAMORRO MD ADMIT DATE: 06/17/23/ER Signed Date of Exam:06/17/23 CHEST 1 VIEW, AP/PA ONLY EXAMINATION: Chest 1 view HISTORY: Shortness of breath. Respiratory distress. COMPARISON: 06/16/2023. FINDINGS: Cardiomegaly is again seen with persistent and worsening central pulmonary vascular congestion and prominent interstitial markings throughout the lungs. Increasing opacities are seen in the right lung base with possible small right pleural effusion. No pneumothorax. IMPRESSION: 1. Cardiomegaly with worsening pulmonary edema. 2. Right-sided pleural effusion. Dictated by: Dictated on workstation # [id number] Dict: 06/17/23 0834 Trans: 06/17/23 0841 [facility] [id number] Interpreted by: ARYA NUNN DO Electronically signed by: ARYA NUNN DO 06/17/23 0841 Departure Communication (Admissions) Time/Spoke to Admitting Phy: 09:37 Dr. Owusu Time/Spoke to Consulting Phy: 11:00 Dr. Faizan Garcias Primary Impression: Acute respiratory failure Qualified Codes: J96.01 - Acute respiratory failure with hypoxia; J96.02 - Acute respiratory failure with hypercapnia Additional Impressions: Pulmonary congestion Suspected pneumonia Nausea & vomiting Qualified Codes: R11.2 - Nausea with vomiting, unspecified Chronic kidney disease Qualified Codes: N18.9 - Chronic kidney disease, unspecified Disposition: ADMITTED INPATIENT Condition: Improved Admissions Decision to Admit Reason: Admit from ER (General) Decision to Admit/Date: Jun 17, 2023 Time/Decision to Admit Time: 09:37 Departure-Patient Inst. Referrals: GAYLE OWUSU DO (PCP/Family) Primary Care Physician ARAMIS CHAMORRO MD Jun 17, 2023 09:24
[2023-06-17] MEDS ORDERED: ONDANSETRON INJECTION 4 MG/2 ML (SDV) IV PRN (10:45)
[2023-06-17] MEDS ORDERED: CALCIUM CARBONATE 500 MG CHEW TABLET PO PRN (10:45)
[2023-06-17] MEDS ORDERED: MELATONIN 3 MG TABLET PO PRN (10:45)
[2023-06-17] MEDS ORDERED: ACETAMINOPHEN 325 MG TABLET PO PRN (10:45)
[2023-06-17] MEDS ORDERED: NS IV 500 ML 500 ML IV PRN (10:45)
[2023-06-17] MEDS ORDERED: oxyCODONE IMMEDIATE RELEASE 5 MG TABLET PO PRN (10:45)
[2023-06-17] MEDS ORDERED: DexMEDEtomidine 1,000mcg/250ml 250 ML IV SCH (10:45)
[2023-06-17] MEDS ORDERED: HYDROmorphone INJECTION 2 MG/ML VIAL IV PRN (10:45)
[2023-06-17] MEDS ORDERED: ONDANSETRON 4 MG ORAL DISSOLVE TABLET PO PRN (10:45)
[2023-06-17] MEDS ORDERED: diphenhydrAMINE 25 MG TABLET PO PRN (10:45)
[2023-06-17] MEDS ORDERED: NS IV 1000 ML 1,000 ML IV SCH (10:45)
[2023-06-17] MEDS ORDERED: diphenhydrAMINE INJ 50 MG/ML VIAL IVP PRN (10:45)
[2023-06-17] MEDS ORDERED: MILK OF MAGNESIA 400 MG/5 ML 30 ML UDC PO PRN (10:45)
[2023-06-17] MEDS ORDERED: BISACODYL 10 MG SUPPOSITORY PR PRN ×2 (10:45→11:45)
[2023-06-17] MEDS ORDERED: ANTACID SUSPENSION 30 ML UDC PO PRN (10:45)
[2023-06-17] MEDS ORDERED: LACTULOSE SYRUP 10GM/15ML 30ML UDC PO PRN (10:45)
[2023-06-17] MEDS ORDERED: inSUlin ASPART 1 UNIT/0.01 ML (PER UNIT) SC SCH (11:00)
[2023-06-17 11:08] VITALS: BP 113/60
[2023-06-17] MEDS ORDERED: RT-Ipratropium/Albuterol NEB 3 ML VIAL INH PRN ×2 (11:30→11:45)
[2023-06-17] MEDS ORDERED: ATROPINE 1% OPHTHALMIC SOLN 2 ML SL PRN (11:45)
[2023-06-17] MEDS ORDERED: ACETAMINOPHEN 650 MG SUPPOSITORY PR PRN (11:45)
[2023-06-17] MEDS ORDERED: LORazepam 1 MG TABLET SL PRN (11:45)
[2023-06-17] MEDS ORDERED: SALIVA SUBSTITUTE 60 ML SPRAY MM PRN (11:45)
[2023-06-17] MEDS ORDERED: PROMETHAZINE INJ 25 MG/ML VIAL IVP PRN (11:45)
[2023-06-17] MEDS ORDERED: ONDANSETRON INJECTION 4 MG/2 ML (SDV) IVP PRN (11:45)
[2023-06-17] MEDS ORDERED: ARTIFICAL TEARS Ophth solution 0.4 ML UNIT DOSE OU PRN (11:45)
[2023-06-17] MEDS ORDERED: GLYCOPYRROLATE INJ 0.2 MG/ML 2 ML VIAL IV PRN (11:45)
[2023-06-17] MEDS: SCOPOLAMINE 1.5 MG PATCH TOP SCH (13:16)
--- NOTE | 2023-06-17 14:33 | History & Physical ---
AMAIRANI KERR 06/17/23 1433: History of Present Illness History of Present Illness Reason for visit/HPI HPI: 82-year-old male presents to ER via EMS from [facility] for SOB & altered mental status. Patient was recently discharged yesterday after having a bout of wmikl-yc-ydhhdao kidney failure and has a h/o DM, CKD, CHF, and Afib. According to patients sister, he kept pulling his oxygen off while sleeping last night, causing his O2 to drop to 72%, and that the doctor said there may be possible pneumonia. Patients O2 sat. was around 90% on EMS and end tidal CO2 was 68. He was placed on BiPAP on arrival and had to be removed due to the patient vomiting. He was eventually placed back on BiPAP and patient's nausea resolved. He was moved to ICU and no information was gathered from the patient as he was on BiPAP. Date of Admission Jun 17, 2023 at 10:22 Date Seen by a Provider: Jun 17, 2023 Time Seen by a Provider: 10:30 I consulted on this patient on 06/17/23 14:27 Attending Physician Loida Vilchis DO Admitting Physician Admitting Physician: Loida Vilchis DO Attending Physician: Loida Vilchis DO Consult Allergies and Home Medications Allergies Coded Allergies: Sulfa (Sulfonamide Antibiotics) (Unverified Allergy, Unknown, 10/10/19) Patient Home Medication List Home Medication List Reviewed: Yes Acetaminophen (Acetaminophen) 325 Mg Tablet, 650 MG PO Q4H PRN for TEMPERATURE Prescribed by: LOIDA VILCHIS on 06/16/23 1101 Albuterol Sulfate (Albuterol Sulfate) 2.5 Mg/3 Ml (0.083 %) Vial.neb, 2.5 MG INH RTQ4HR PRN for SOA Prescribed by: LOIDA VILCHIS on 06/16/23 1101 Apixaban (Eliquis) 2.5 Mg Tablet, 2.5 MG PO BID Prescribed by: LOIDA VILCHIS on 06/16/23 1101 Aspirin (Aspirin EC) 81 Mg Tablet.dr, 81 MG PO DAILY Prescribed by: LOIDA VILCHIS on 06/16/23 1101 Cetirizine HCl (Cetirizine HCl) 10 Mg Tablet, 10 MG PO DAILY Prescribed by: LOIDA VILCHIS on 06/16/23 1101 Diltiazem HCl (Diltiazem 24Hr ER) 180 Mg Cap.er.24h, 180 MG PO DAILY Prescribed by: LOIDA VILCHIS on 06/16/23 110 Docusate Sodium (Docusate Sodium) 100 Mg Capsule, 100 MG PO BID Prescribed by: LOIDA VILCHIS on 06/16/231100 Finasteride (Finasteride) 5 Mg Tablet, 5 MG PO DAILY Prescribed by: LOIDA VILCHIS on 06/16/23 110 Fluticasone Propionate (Fluticasone Propionate) 50 Mcg/Actuation [place].susp, 0 SPRAY NS DAILY Prescribed by: LOIDA VILCHIS on 06/16/23 110 Furosemide (Furosemide) 40 Mg Tablet, 40 MG PO DAILY Prescribed by: LOIDA VILCHIS on 06/16/231100 Hydralazine HCl (Hydralazine HCl) 50 Mg Tablet, 50 MG PO 0000,0300,1600 Prescribed by: LOIDA VILCHIS on 06/16/231100 Hydralazine HCl (Hydralazine HCl) 25 Mg Tablet, 50 MG PO Q4H PRN for sbp>158 Prescribed by: LOIDA VILCHIS on 06/16/231100 Insulin Detemir (Levemir Flexpen) 100 Unit/Ml (3 Ml) Insuln.pen, 25 UNIT SQ BID Prescribed by: LOIDA VILCHIS on 06/16/23 110 Insulin Lispro (Insulin Lispro Jared Kwikpen) 100 Unit/Ml Ins.pen.hf, 3 UNITS SC AC Prescribed by: LOIDA VILCHIS on 06/16/231100 Isosorbide Mononitrate (Isosorbide Mononitrate ER) 60 Mg Tab, 120 MG PO DAILY Prescribed by: LOIDA VILCHIS on 06/16/23 110 Metoprolol Tartrate (Metoprolol Tartrate) 25 Mg Tablet, 25 MG PO BID Prescribed by: LOIDA VILCHIS on 06/16/23 110 Montelukast Sodium (Montelukast Sodium) 10 Mg Tablet, 10 MG PO HS Prescribed by: LOIDA VILCHIS on 06/16/23 110 Multivitamin/Iron/Folic Acid (Tab-A-Oleksandr Multivit with Iron) 18 Mg Iron-400 Mcg Tablet, 1 EA PO DAILY@0700 Prescribed by: LOIDA VILCHIS on 06/16/231100 Omeprazole (Omeprazole) 40 Mg Capsule.dr, 40 MG PO DAILY Prescribed by: LOIDA VILCHIS on 06/16/23 110 Oxycodone Hcl (Oxyir Tablet) 5 Mg Tab, 5 MG PO Q4HR PRN for PAIN-SEE DOSE INSTRUCTIONS Prescribed by: LOIDA VILCHIS on 06/16/23 110 Sennosides/Docusate Sodium (Stimulant Laxative Plus Tablet) 8.6 Mg-50 Mg Tablet, 17.2 MG PO DAILY Prescribed by: LOIDA VILCHIS on 06/16/231100 Tamsulosin HCl (Flomax) 0.4 Mg Cap, 0.8 MG PO DAILY Prescribed by: LOIDA VILCHIS on 06/16/23 110 Trazodone HCl (Trazodone HCl) 50 Mg Tablet, 50 MG PO HS Prescribed by: LOIDA VILCHIS on 06/16/23 110 Vit C/E/Zn/Coppr/Lutein/Zeaxan (Preservision Areds 2 Softgel) 250MG-90MG Capsule, 1 EACH PO DAILY Prescribed by: LOIDA VILCHIS on 05/12/23 103 Discontinued Medications Acetaminophen (Acetaminophen) 325 Mg Tablet, 650 MG PO Q4H PRN for TEMPERATURE Discontinued Reason: No Longer Taking Prescribed by: LOIDA VILCHIS on 05/12/23 103 Carvedilol (Carvedilol) 25 Mg Tablet, 25 MG PO BID Prescribed by: LOIDA VILCHIS on 05/12/23 103 Insulin Lispro (Insulin Lispro Kwikpen U-100) 100 Unit/Ml Insuln.pen, 3 UNITS SC AC Discontinued Reason: Duplicate Order Prescribed by: LOIDA VILCHIS on 05/12/23 103 Past Uxbudmy-Thzndu-Lgqrzs Hx Patient Social History Tobacco Use?: No Smoking Status: Never a Smoker Use of E-Cig and/or Vaping dev: No Use of E-Cig and/or Vaping Pelon: Unknown if Ever Used Substance use?: No Alcohol Use?: Yes Alcohol type: Wine Alcohol Frequency: Rarely Pt feels they are or have been: No Immunizations Up To Date Date of Influenza Vaccine: Sep 10, 2020 First/Initial COVID19 Vaccinat: RECEIVED, UNK WHEN Second COVID19 Vaccination Zoltan: RECEIVED, UNK WHEN Tetanus Booster (TDap): Unknown Date of Pneumonia Vaccine: Oct 10, 2013 Seasonal Allergies Seasonal Allergies: No Current Status Advance Directives: No Primary Language: British Preferred Spoken Language: British Is interpretation needed?: No Sensory deficits: Vision impairment Implanted or Applied Medical D: None Past Medical History Surgeries: Cardiac Pneumonia Atrial Fibrillation Neuropathy Benign Prostatic Hyperpl, Bladder Infection, Renal Failure Diverticulosis, Gall Bladder Disease Diabetes, Insulin dep Loss of Vision: Denies Hearing Impairment: Denies Blood Disorders: No Family Medical History Cardiovascular disease 19 FATHER Hypertension 19 FATHER No Pertinent Family Hx, CAD Over 55 Years Old, Hypertension PAST SURGICAL HISTORY: -CARDIAC CATH 11/09/19--DIFFUSELY CALCIFIED CORONARY ARTERIES, SMALL VESSEL DISEASE, NO INTERVENTION - Review of Systems Constitutional: see HPI EENTM: no symptoms reported Respiratory: no symptoms reported Cardiovascular: no symptoms reported Gastrointestinal: see HPI, nausea, vomiting Genitourinary: no symptoms reported Musculoskeletal: no symptoms reported Skin: no symptoms reported Psychiatric/Neurological: No Symptoms Reported Physical Exam Vital Signs Vital Signs - First Documented 06/17/23 06/17/23 07:47 11:17 Temp 36.7 Pulse 125 Resp 24 B/P (MAP) 182/90 (120) O2 Delivery Simple Mask O2 Flow Rate 10.00 FiO2 50 Capillary Refill : Height, Weight, BMI Height: 5'7.00" Weight: 200lbs. oz. 90.262254qg; 34.72 BMI Method:Estimated General Appearance: Chronically ill, Moderate Distress Respiratory: No Accessory Muscle Use, Other (On BiPAP) Extremity: Other (Lower leg edema) Neurologic/Psychiatric: Alert (Was alert on arrival), Other (Confusion) Skin: Normal Color Assessment/Plan Assessment and Plan Assessment: Acute on chronic respiratory failure Pulmonary edema Diastolic dysfunction Acute pneumonia on cefepime Hx of urinary obstruction requiring Finch catheter Diabetes CKD Hx of Afib Plan: Continue antibiotics Take BiPAP off Move to 4th floor for comfort care Hospice consult DNR Monitor Admission Diagnosis Admission Status: Inpatient Order (span 2 midnights) Reason for Inpatient Admission: Respiratory failure requiring BiPAP, patient is not doing well LOIDA VILCHIS DO 06/17/232041: Allergies and Home Medications Allergies Coded Allergies: Sulfa (Sulfonamide Antibiotics) (Unverified Allergy, Unknown, 10/10/19) Patient Home Medication List Acetaminophen (Acetaminophen) 325 Mg Tablet, 650 MG PO Q4H PRN for TEMPERATURE Prescribed by: LOIDA VILCHIS on 06/16/23 110 Albuterol Sulfate (Albuterol Sulfate) 2.5 Mg/3 Ml (0.083 %) Vial.neb, 2.5 MG INH RTQ4HR PRN for SOA Prescribed by: LOIDA VILCHIS on 06/16/23 110 Apixaban (Eliquis) 2.5 Mg Tablet, 2.5 MG PO BID Prescribed by: LOIDA VILCHIS on 06/16/23 110 Aspirin (Aspirin EC) 81 Mg Tablet.dr, 81 MG PO DAILY Prescribed by: LOIDA VILCHIS on 06/16/231100 Cetirizine HCl (Cetirizine HCl) 10 Mg Tablet, 10 MG PO DAILY Prescribed by: LOIDA VILCHIS on 06/16/231100 Diltiazem HCl (Diltiazem 24Hr ER) 180 Mg Cap.er.24h, 180 MG PO DAILY Prescribed by: LOIDA VILCHIS on 06/16/231100 Docusate Sodium (Docusate Sodium) 100 Mg Capsule, 100 MG PO BID Prescribed by: LOIDA VILCHIS on 06/16/23 110 Finasteride (Finasteride) 5 Mg Tablet, 5 MG PO DAILY Prescribed by: LOIDA VILCHIS on 06/16/23 110 Fluticasone Propionate (Fluticasone Propionate) 50 Mcg/Actuation [place].susp, 0 SPRAY NS DAILY Prescribed by: LOIDA VILCHIS on 06/16/231100 Furosemide (Furosemide) 40 Mg Tablet, 40 MG PO DAILY Prescribed by: LOIDA VILCHIS on 06/16/231100 Hydralazine HCl (Hydralazine HCl) 50 Mg Tablet, 50 MG PO 0000,0300,1600 Prescribed by: LOIDA VILCHIS on 06/16/231100 Hydralazine HCl (Hydralazine HCl) 25 Mg Tablet, 50 MG PO Q4H PRN for sbp>158 Prescribed by: LOIDA VILCHIS on 06/16/231100 Insulin Detemir (Levemir Flexpen) 100 Unit/Ml (3 Ml) Insuln.pen, 25 UNIT SQ BID Prescribed by: LOIDA VILCHIS on 06/16/231100 Insulin Lispro (Insulin Lispro Jared Kwikpen) 100 Unit/Ml Ins.pen.hf, 3 UNITS SC AC Prescribed by: LOIDA VILCHIS on 06/16/23 110 Isosorbide Mononitrate (Isosorbide Mononitrate ER) 60 Mg Tab, 120 MG PO DAILY Prescribed by: LOIDA VILCHIS on 06/16/23 110 Metoprolol Tartrate (Metoprolol Tartrate) 25 Mg Tablet, 25 MG PO BID Prescribed by: LOIDA VILCHIS on 06/16/23 110 Montelukast Sodium (Montelukast Sodium) 10 Mg Tablet, 10 MG PO HS Prescribed by: LOIDA VILCHIS on 06/16/23 110 Multivitamin/Iron/Folic Acid (Tab-A-Oleksandr Multivit with Iron) 18 Mg Iron-400 Mcg Tablet, 1 EA PO DAILY@0700 Prescribed by: LOIDA VILCHIS on 06/16/23 110 Omeprazole (Omeprazole) 40 Mg Capsule.dr, 40 MG PO DAILY Prescribed by: LOIDA VILCHIS on 06/16/23 110 Oxycodone Hcl (Oxyir Tablet) 5 Mg Tab, 5 MG PO Q4HR PRN for PAIN-SEE DOSE INSTRUCTIONS Prescribed by: LOIDA VILCHIS on 06/16/23 110 Sennosides/Docusate Sodium (Stimulant Laxative Plus Tablet) 8.6 Mg-50 Mg Tablet, 17.2 MG PO DAILY Prescribed by: LOIDA VILCHIS on 06/16/23 110 Tamsulosin HCl (Flomax) 0.4 Mg Cap, 0.8 MG PO DAILY Prescribed by: LOIDA VILCHIS on 06/16/23 110 Trazodone HCl (Trazodone HCl) 50 Mg Tablet, 50 MG PO HS Prescribed by: LOIDA VILCHIS on 06/16/23 110 Vit C/E/Zn/Coppr/Lutein/Zeaxan (Preservision Areds 2 Softgel) 250MG-90MG Capsule, 1 EACH PO DAILY Prescribed by: LOIDA VILCHIS on 05/12/23 1039 Discontinued Medications Acetaminophen (Acetaminophen) 325 Mg Tablet, 650 MG PO Q4H PRN for TEMPERATURE Discontinued Reason: No Longer Taking Prescribed by: LOIDA VILCHIS on 05/12/23 1039 Carvedilol (Carvedilol) 25 Mg Tablet, 25 MG PO BID Prescribed by: LOIDA VILCHIS on 05/12/23 1039 Insulin Lispro (Insulin Lispro Kwikpen U-100) 100 Unit/Ml Insuln.pen, 3 UNITS SC AC Discontinued Reason: Duplicate Order Prescribed by: LOIDA VILCHIS on 05/12/23 1039 Past Jeyrctc-Ywruhc-Glgwfu Hx Family Medical History Cardiovascular disease 19 FATHER Hypertension 19 FATHER Assessment/Plan Admission Diagnosis Admission Status: Inpatient Order (span 2 midnights) Reason for Inpatient Admission: bipap Supervisory-Addendum Brief Verification & Attestation Participated in pt care: history, MDM, physical Personally performed: exam, history, MDM, supervision of care Care discussed with: Medical Student Procedures: n/a Results interpretation: Verified all documentation Verification and Attestation of Medical Student E/M Service A medical student performed and documented this service in my presence. I reviewed and verified all information documented by the medical student and made modifications to such information, when appropriate. I personally performed the physical exam and medical decision making. Loida Vilchis, Jun 17, 2023,20:42 AMAIRANI KERR Jun 17, 2023 14:33 LOIDA VILCHIS DO Jun 17, 2023 20:42
[2023-06-17] MEDS ORDERED: RT-Ipratropium/Albuterol NEB 3 ML VIAL INH SCH (15:00)
[2023-06-17] MEDS ORDERED: SENNOSIDES 8.6 MG (SENOKOT) TAB PO SCH (21:00)
[2023-06-17] MEDS ORDERED: APIXABAN 2.5 MG TABLET PO SCH (21:00)
[2023-06-17] MEDS ORDERED: DOCUSATE SODIUM 100 MG CAPSULE PO SCH (21:00)
[2023-06-17] MEDS: morphine INJ 4 MG/ML 1 ML (VIAL/SYRINGE) IV PRN (21:52)
[2023-06-17] MEDS ORDERED: CEFEPIME INJECTION 1,000 MG in NS (IVPB) 50 ML 50 ML IV SCH (22:00)
[2023-06-18] MEDS ORDERED: POTASSIUM CHLORIDE 20 MEQ TABLET PO SCH (06:00)
[2023-06-18] MEDS ORDERED: MAGNESIUM 1 GM/100 ML IVPB 100 ML IV SCH (06:00)
[2023-06-18] MEDS ORDERED: POTASSIUM CL 10MEQ/50ML IVPB 50 ML IV SCH (06:00)
--- NOTE | 2023-06-18 13:14 | Progress Note ---
AMAIRANI KERR 06/18/23 1313: Subjective Date Seen by a Provider: Jun 18, 2023 Time Seen by a Provider: 08:15 Subjective/Events-last exam Patient was awake & alert and reported that he was feeling much better than yesterday. He was not experiencing any sort of pain, but is still having a cough. Feels weak from not being able to eat and has not had any nausea, but did try to vomit last night. Patient is very confused, oriented x2, and keeps thinking that he is in the hospital for his kidney problems. Patient is able to answer ROS questions, but anything more specific, he becomes confused. It is unclear if he had any BM between the time he was discharge to the half-way on Friday to this morning. He claimed he has not had a BM yet, but then stated that he may have. Review of Systems General: No Chills, No Night Sweats; Fatigue, Malaise; No Appetite, No Other HEENT: No Head Aches, No Visual Changes, No Eye Pain, No Ear Pain, No Dysphasia, No Sinus Congestion, No Post Nasal Drip, No Sore Throat, No Other Pulmonary: No Dyspnea; Cough; No Pleuritic Chest Pain; Other (SOB) Cardiovascular: Edema (Lower extremity b/l); No: Chest Pain, Palpitations, Orthopnea, Paroxysmal Noc. Dyspnea, Lt Headedness, Other Gastrointestinal: Constipation (Unclear when last BM was); No: Nausea, Vomiting, Abdominal Pain, Diarrhea, Melena, Hematochezia, Other Genitourinary: No Dysuria, No Frequency, No Incontinence, No Hematuria, No Retention, No Other Musculoskeletal: No: other, neck pain, shoulder pain, arm pain, back pain, hand pain, leg pain, foot pain Neurological: Confusion; No: Weakness, Numbness, Incoordination, Change in speech, Seizures, Other Focused Exam Lactate Level 06/17/23 08:00: Lactic Acid Level 0.81 Objective Exam Last Set of Vital Signs Vital Signs Date Time Temp Pulse Resp B/P (MAP) Pulse Ox O2 Delivery O2 Flow Rate FiO2 06/18/23 08:00 Nasal Cannula 4.00 06/17/23 14:27 36.4 96 19 160/77 (104) 95 06/17/23 11:17 50 Capillary Refill : I&O Intake and Output 06/18/23 00:00 Intake Total 550 ml Output Total 500 ml Balance 50 ml Intake Oral 500 ml IV Total 50 ml Output Urine Total 500 ml Daily Weight Change No General: Alert, Cooperative, No Acute Distress HEENT: Atraumatic, PERRLA, EOMI, Mucous Memb Moist/[place] Heart: Regular Rate, Normal S1, Normal S2, No Murmurs Extremities: No Clubbing, Normal Pulses Neuro: Normal Speech Psych/Mental Status: Mood NL Other physical findings Both lower extremities are swollen, but no pain. Patient is very confused. 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 I reviewed and verified all information documented by the medical student and made modifications to such information, when appropriate. I personally performed the physical exam and medical decision making. Loida Owusu Jun 18, 2023,19:56 AMAIRANI KERR Jun 18, 2023 13:13 LOIDA OWUSU DO Jun 18, 2023 19:56
[2023-06-18] MEDS: morphine INJ 4 MG/ML 1 ML (VIAL/SYRINGE) IV PRN (19:39)
[2023-06-19] MEDS ORDERED: PHENOL THROAT SPRAY 177 ML LIQUID MC PRN (12:00)
--- NOTE | 2023-06-19 12:07 | Progress Note ---
AMAIRANI KERR 06/19/23 1207: Subjective Date Seen by a Provider: Jun 19, 2023 Time Seen by a Provider: 08:30 Subjective/Events-last exam Not much has happened with patient since yesterday. He states that he is feeling "terrible", but is experiencing no pain. There is some leg weakness and both lower legs are swollen. He was able to eat breakfast, but had some difficulty with eating the dry bread and pancakes. Reported no nausea or vomiting. Having some throat soreness. Patient was breathing fine and still has a cough. Unsure if he has had a BM. Still confused and is alert and oriented x1. Worried about his bank account and his electronic device. Review of Systems General: No Chills, No Night Sweats, No Fatigue; Malaise (Especially in his legs); No Appetite, No Other HEENT: No Head Aches, No Visual Changes, No Eye Pain, No Ear Pain, No Dysphasia, No Sinus Congestion, No Post Nasal Drip, No Sore Throat, No Other Pulmonary: No Dyspnea; Cough; No Pleuritic Chest Pain, No Other Cardiovascular: Edema; No: Chest Pain, Palpitations, Orthopnea, Paroxysmal Noc. Dyspnea, Lt Headedness, Other Gastrointestinal: Constipation; No: Nausea, Vomiting, Abdominal Pain, Diarrhea, Melena, Hematochezia, Other Genitourinary: No Dysuria, No Frequency, No Incontinence, No Hematuria, No Retention, No Other Musculoskeletal: No: other, neck pain, shoulder pain, arm pain, back pain, hand pain, leg pain, foot pain Neurological: Confusion; No: Weakness, Numbness, Incoordination, Change in speech, Seizures, Other Focused Exam Lactate Level 06/17/23 08:00: Lactic Acid Level 0.81 Objective Exam Last Set of Vital Signs Vital Signs Date Time Temp Pulse Resp B/P (MAP) Pulse Ox O2 Delivery O2 Flow Rate FiO2 06/18/23 19:46 Nasal Cannula 4.00 06/17/23 14:27 36.4 96 19 160/77 (104) 95 06/17/23 11:17 50 Capillary Refill : I&O Intake and Output 06/19/23 00:00 Intake Total 1230 ml Output Total 1040 ml Balance 190 ml Intake Oral 1230 ml Output Urine Total 1040 ml General: Alert, Cooperative, Mild Distress HEENT: Atraumatic, PERRLA, EOMI, Mucous Memb Moist/[place] Neck: No JVD Lungs: Clear to Auscultation, Normal Air Movement Heart: Regular Rate, Normal S1, Normal S2, No Murmurs Extremities: No Clubbing, Normal Pulses Neuro: Normal Speech Psych/Mental Status: Mood NL Results Lab Microbiology 06/17/23 Blood Culture - Preliminary, Resulted No growth 06/17/23 Urine Culture - Final, Complete NO GROWTH Assessment/Plan Assessment/Plan Assess & Plan/Chief Complaint Assessment: Acute on chronic respiratory failure Pulmonary edema Diastolic dysfunction Acute pneumonia on cefepime Confusion Chronic lower extremity edema Hx of urinary obstruction requiring catheter Finch DM CKD Hx of Afib Plan: Continue O2 via nasal cannula 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 I reviewed and verified all information documented by the medical student and made modifications to such information, when appropriate. I personally performed the physical exam and medical decision making. Loida Owusu, Jun 19, 2023,20:07 AMAIRANI KERR Jun 19, 2023 12:07 LOIDA OWUSU DO Jun 19, 2023 20:07
--- NOTE | 2023-06-20 09:57 | Occupational Therapy Eval ---
OT Evaluation-General/PLF Medical Diagnosis Admission Date Jun 17, 2023 at 10:22 Medical Diagnosis: Respiratory failure Onset Date: Jun 17, 2023 Therapy Diagnosis Therapy Diagnosis: SOA, weakness, confusion Height/Weight Height (Feet): 5 Height (Inches): 7.00 Weight (Pounds): 200 Precautions Precautions/Isolations: Standard Precautions Weight Bear Status Weight Bearing Restriction: Full Weight Bearing Referral Referral Reason: Activity Tolerance, Self Care, Evaluation/Treatment, Strengthening/ROM Medical History Pertinent Medical History: CAD, DM, HTN, [place], Neuropathy, Renal Insufficiency Additional Medical History 2-year-old male presents to ER via EMS from [facility] for SOB & altered mental status. Patient was recently discharged yesterday after having a bout of hjteb-rt-xnskhkk kidney failure and has a h/o DM, CKD, CHF, and Afib. According to patients sister, he kept pulling his oxygen off while sleeping last night, causing his O2 to drop to 72%, and that the doctor said there may be possible pneumonia. Patients O2 sat. was around 90% on EMS and end tidal CO2 was 68. He was placed on BiPAP on arrival and had to be removed due to the patient vomiting. He was eventually placed back on BiPAP and patient's nausea resolved. He was moved to ICU and no information was gathered from the patient as he was on BiPA. Patient is now on medical floor Social History Home: [facility] Current Living Status: Alone DC from hospital to SNF and returned to hospital ADL-Prior Level of Function SCALE: Activities may be completed with or without assistive devices. 5-Zqvurcmnmd-ilofkqb completes the activity by him/herself with no assistance from a helper. 5-Set-up or Clean-up Assistance-helper sets up or cleans up; patient completes activity. [place] assists only prior to or following the activity. 4-Supervision or Touching Assistance-helper provides verbal cues and/or touching/steadying and/or contact guard assistance as patient completes activity. Assistance may be provided throughout the activity or intermittently. 3-Partial/Moderate Assistance-helper does LESS THAN HALF the effort. [place] lifts, holds or supports trunk or limbs, but provides less than half the effort. 2-Substantial/Maximal Assistance-helper does MORE THAN HALF the effort. [place] lifts or holds trunk or limbs and provides more than half the effort. 4-Rljlvgqxb-nxvhdo does ALL the effort. Patient does none of the effort to complete the activity. Or, the assistance of 2 or more helpers is required for the patient to complete the activity. If activity was not attempted, code reason: 7-Patient Refused. 9-Not Applicable-not attempted and the patient did not perform the activity before the current illness, exacerbation or injury. 10-Not Attempted due to Environmental Limitations-(lack of equipment, weather restraints, etc.). 88-Not Attempted due to Medical Conditions or Safety Concerns. ADL PLOF Comments Has a sister in [place] area, between patient and sister DC plan is undecided between home and need for SNF-LTC, patient health gradually steady decline. Self Care: Needed Some Help Functional Cognition: Needed Some Help Drive Self: No OT Current Status Subjective Agreeable to OT Pain Numeric Pain Scale: 0-No Pain Mental Status/Objective Patient Orientation: Person, Place, Time, Situation Attachments: IV, Oxygen Current Glasses/Contacts: Yes Upper Extremity ROM ROM WFLS Upper Extremity Coordination IMPAIRED FAIR - Upper Extremity Strength +3/5 Visually impaired unable to open toothpaste and squeeze onto toothbrush. FMC impaired to manage opening paste ADL-Treatment Eating (QC): 5 Oral Hygiene (QC): 4 Shower/Bathe Self (QC): 7 Upper Body Dressing (QC): 3 Lower Body Dressing (QC): 3 On/Off Footwear (QC): 2 Toileting Hygiene (QC): 3 Education OT Patient Education: Correct positioning, Energy conservation, Exercise program, Modified ADL techniques, Progress toward Goal/Update tx plan, Purpose of tx/functional activities, Reviewed precautions, Rehab process, Safety issues, Transfer techniques Teaching Recipient: Patient Teaching Methods: Demonstration Response to Teaching: Verbalize Understanding, Reinforcement Needed OT Network Development Coordinator Goals Network Development Coordinator Goals 1=Demonstrate adherence to instructed precautions during ADL tasks. 2=Patient will verbalize/demonstrate understanding of assistive devices/modifications for ADL. 3=Patient will improve strength/tolerance for activity to enable patient to perform ADL's. OT Education/Plan Problem List/Assessment Assessment: Decreased Activ Tolerance, Decreased Safety Aware, Decreased UE Strength, Impaired Cognition, Impaired Coordination, Impaired Funct Balance, Impaired Self-Care Skills Discharge Recommendations Plan/Recommendations: Continue POC Treatment Plan/Plan of Care Treatment,Training & Education: Yes Patient would benefit from OT for education, treatment and training to promote independence in ADL's, mobility, safety and/or upper extremity function for ADL's. Plan of Care: ADL Retraining, Concurrent Therapy, Functional Mobility, Group Exercise/Act as Ind, UE Neuromus Re-Ed/Coord, Visual/Perceptual Retrain Treatment Duration: Jun 24, 2023 Frequency: 3 times per week (3-5 times per week) Estimated Hrs Per Day: .25 hour per day Rehab Potential: Guarded Time Start Time: 09:35 Stop Time: 09:55 DATE: Jun 20, 2023 Total Time Billed (hr/min): 20 Billed Treatment Time EVM, 20 min DEE DRAPER OT Jun 20, 2023 09:57
--- NOTE | 2023-06-20 10:25 | Progress Note ---
AMAIRANI KERR 06/20/23 1025: Subjective Date Seen by a Provider: Jun 20, 2023 Time Seen by a Provider: 10:00 Subjective/Events-last exam Patient is doing well, but does not look well. Nothing eventful happened last night. He stated that the nurses "sneaked" him a dose of morphine last night and that he was all loopy and couldn't read the bored. However, patients confusion is improving and he was alert & oriented x3. He is experiencing a sore back due to laying down all day. Still having a cough and dry mouth which water helps. Had breakfast this morning and is having no nausea or vomiting. Still has not had a BM yet. Is inquiring about his plan for the facility he will be moving to. Both lower legs are swollen, but is having no pain. Review of Systems General: No Chills, No Night Sweats; Fatigue; No Malaise, No Appetite, No Other HEENT: No Head Aches, No Visual Changes, No Eye Pain, No Ear Pain, No Dysphasia, No Sinus Congestion, No Post Nasal Drip, No Sore Throat, No Other Pulmonary: No Dyspnea; Cough; No Pleuritic Chest Pain, No Other Cardiovascular: Edema (LE edema); No: Chest Pain, Palpitations, Orthopnea, Paroxysmal Noc. Dyspnea, Lt Headedness, Other Gastrointestinal: Constipation (Unsure when last BM was, buy hasn't had one since admitted); No: Nausea, Vomiting, Abdominal Pain, Diarrhea, Melena, Hematoc hezia, Other Genitourinary: No Dysuria, No Frequency, No Incontinence, No Hematuria, No Retention, No Other Musculoskeletal: back pain; No: other, neck pain, shoulder pain, arm pain, hand pain, leg pain, foot pain Neurological: Confusion (Confusion is improving); No: Weakness, Numbness, Incoordination, Change in speech, Seizures, Other Objective Exam Last Set of Vital Signs Vital Signs Date Time Temp Pulse Resp B/P (MAP) Pulse Ox O2 Delivery O2 Flow Rate FiO2 06/19/23 21:08 Nasal Cannula 4.00 06/17/23 14:27 36.4 96 19 160/77 (104) 95 06/17/23 11:17 50 Capillary Refill : I&O Intake and Output 8/17/23 23:59 Intake Total 1760 ml Output Total 1500 ml Balance 260 ml Intake Oral 1760 ml Output Urine Total 1500 ml General: Alert, Oriented X3, Cooperative, No Acute Distress HEENT: Atraumatic, PERRLA, EOMI, Mucous Memb Moist/[place] Neck: Supple, No JVD, No Thyromegaly Lungs: Clear to Auscultation, Normal Air Movement Heart: Regular Rate, Normal S1, Normal S2, No Murmurs Extremities: No Clubbing, Normal Pulses Neuro: Normal Speech Psych/Mental Status: Mental Status NL, Mood NL Results Lab Microbiology 06/17/23 Blood Culture - Preliminary, Resulted No growth 06/17/23 Urine Culture - Final, Complete NO GROWTH Assessment/Plan Assessment/Plan Assess & Plan/Chief Complaint Assessment: Acute on chronic respiratory failure Pulmonary edema Diastolic dysfunction Acute pneumonia Confusion Chronic lower extremity edema Hx of urinary obstruction requiring catheter Finch DM CKD Hx of Afib Plan: pet care worker consultation Comfort care protocol DNR LOIDA OWUSU DO 06/21/23 0649: Supervisory-Addendum Brief Verification & Attestation Participated in pt care: history, MDM, physical Personally performed: exam, history, MDM, supervision of care Care discussed with: Medical Student Procedures: n/a Results interpretation: Verified all documentation Verification and Attestation of Medical Student E/M Service A medical student performed and documented this service in my presence. I reviewed and verified all information documented by the medical student and made modifications to such information, when appropriate. I personally performed the physical exam and medical decision making. Loida Owusu Jun 21, 2023,06:49 AMAIRANI KERR Jun 20, 2023 10:25 LOIDA OWUSU DO Jun 21, 2023 06:49
--- NOTE | 2023-06-20 10:52 | Physical Therapy Evaluation ---
PT Evaluation-General Medical Diagnosis Admission Date Jun 17, 2023 at 10:22 Medical Diagnosis: respiratory failure Onset Date: Jun 17, 2023 Therapy Diagnosis Therapy Diagnosis: debility/weakness Height/Weight Height (Feet): 5 Height (Inches): 7.00 Weight (Pounds): 200 Precautions Precautions/Isolations: Standard Precautions Referral Physician: Mame Reason for Referral: Evaluation/Treatment Medical History Pertinent Medical History: Atrial Fib, CAD, DM, HTN, [place], Neuropathy, Renal Insufficiency Current History EMS from [place] secondary to SOA Reviewed History: Yes Social History Home: [facility] Prior Prior Level of Function SCALE: Activities may be completed with or without assistive devices. 7-Zhfxhttgfl-fryqvvw completes the activity by him/herself with no assistance from a helper. 5-Set-up or Clean-up Assistance-helper sets up or cleans up; patient completes activity. [place] assists only prior to or following the activity. 4-Supervision or Touching Assistance-helper provides verbal cues and/or touching/steadying and/or contact guard assistance as patient completes activity. Assistance may be provided throughout the activity or intermittently. 3-Partial/Moderate Assistance-helper does LESS THAN HALF the effort. [place] lifts, holds or supports trunk or limbs, but provides less than half the effort. 2-Substantial/Maximal Assistance-helper does MORE THAN HALF the effort. [place] lifts or holds trunk or limbs and provides more than half the effort. 6-Ibptgfrzr-rvzsyk does ALL the effort. Patient does none of the effort to complete the activity. Or, the assistance of 2 or more helpers is required for the patient to complete the activity. If activity was not attempted, code reason: 7-Patient Refused. 9-Not Applicable-not attempted and the patient did not perform the activity before the current illness, exacerbation or injury. 10-Not Attempted due to Environmental Limitations-(lack of equipment, weather restraints, etc.). 88-Not Attempted due to Medical Conditions or Safety Concerns. Bed Mobility: 3 Transfers (B,C,W/C): 3 Gait: 2 Indoor Mobility (Ambulation): Needed Some Help Prior Devices Use: Walker PT Evaluation-Current Subjective Patient agrees to PT. Objective Patient Orientation: Person, Place, Time Attachments: Oxygen, Finch Catheter ROM/Strength ROM Lower Extremities bilateral LE WFL ( noted edema bilaterally) Strength Lower Extremities 3+/5 grossly bilateral LE all planes Integumentary/Posture Integumentary refer to nursing notes Bladder Incontinence: Finch Cath Posture WFL Neuromuscular (Tone, Coordination, Reflexes) slightly diminished coordination due to inactivity Sensory Vision: impaired Hearing: Impaired Transfers Lying to Sitting/Side of Bed(Q: 4 Sit to Stand (QC): 3 Chair/Dcs-vw-Ssvhs Xfer(QC): 3 Gait Mode of Locomotion: Walk Anticipated Mode of Locomotion: Walk Walk 10 feet (QC): 3 Walk 50 ft with 2 Turns(QC): 88 Distance: 10' Gait Assistive Device: FWW Comments/Gait Description min to mod assist due to unsteady gait sequence Balance Sitting Static: Fair Sitting Dynamic: Fair Standing Static: Fair Standing Dynamic: Fair Assessment/Needs Patient will benefit from skilled PT to address functional strength and mobility to improve current LOF. Patient has improved with functional mobility from last hospital stay. Rehab Potential: Guarded PT Gear Lapper Goals Gear Lapper Goals PT Half-Way Goals Time Frame: Jun 28, 2023 Roll Left & Right (QC): 4 Sit to Lying (QC): 4 Lying-Sitting on Side/Bed(QC): 4 Sit to Stand (QC): 4 Chair/Bjx-hz-Xigmi Xfer(QC): 4 Walk 10 feet (QC): 4 Walk 50ft with 2 Turns (QC): 4 PT Plan Problem List Problem List: Activity Tolerance, Functional Strength, Safety, Balance, Gait, Transfer, Bed Mobility Treatment/Plan Treatment Plan: Continue Plan of Care Treatment Plan: Bed Mobility, Education, Functional Activity Shannon, Functional Strength, Gait, Safety, Therapeutic Exercise, Transfers Treatment Duration: Jun 28, 2023 Frequency: 6 times per week Estimated Hrs Per Day: .25 hour per day Patient and/or Family Agrees t: Yes Time Time In: 940 Time Out: 952 DATE: Jun 20, 2023 Total Billed Treatment Time: 12 Total Billed Treatment 1 visit EVModC 12 min RANJITH FIERRO PT Jun 20, 2023 10:52
[2023-06-20] MEDS: SCOPOLAMINE 1.5 MG PATCH TOP SCH (12:23)
[2023-06-20] MEDS: SCOPOLAMINE PATCH REMOVAL TP SCH (13:09)
--- NOTE | 2023-06-21 08:15 | Physical Therapy Daily Note ---
PT Daily Note-Current Subjective Patient states that he is doing okay. Pain Numeric Pain Scale: 0-No Pain Section J - Health Conditions 1. Rarely or not at all 2. Occasionally 3. Frequently 4. Almost constantly 8. Unable to answer Pain Effect on Sleep: 1 Pain Interference with Therapy: 1 Pain Interference w/Day-to-Day: 1 Transfers SCALE: Activities may be completed with or without assistive devices. 9-Axvqrlouda-xaboxzj completes the activity by him/herself with no assistance from a helper. 5-Set-up or Clean-up Assistance-helper sets up or cleans up; patient completes activity. [place] assists only prior to or following the activity. 4-Supervision or Touching Assistance-helper provides verbal cues and/or touching/steadying and/or contact guard assistance as patient completes activity. Assistance may be provided throughout the activity or intermittently. 3-Partial/Moderate Assistance-helper does LESS THAN HALF the effort. [place] lifts, holds or supports trunk or limbs, but provides less than half the effort. 2-Substantial/Maximal Assistance-helper does MORE THAN HALF the effort. [place] lifts or holds trunk or limbs and provides more than half the effort. 6-Bodtatzwm-monazb does ALL the effort. Patient does none of the effort to complete the activity. Or, the assistance of 2 or more helpers is required for the patient to complete the activity. If activity was not attempted, code reason: 7-Patient Refused. 9-Not Applicable-not attempted and the patient did not perform the activity before the current illness, exacerbation or injury. 10-Not Attempted due to Environmental Limitations-(lack of equipment, weather restraints, etc.). 88-Not Attempted due to Medical Conditions or Safety Concerns. Exercises Supine Ex: LE Protocol Supine Reps: 20 Assessment Current Status: Good Progress Patient did well with bed exercises however he had some confusion during treatment. PT Marble Helper Goals Marble Helper Goals PT Shelter Goals Time Frame: Jun 28, 2023 Roll Left & Right (QC): 4 Sit to Lying (QC): 4 Lying-Sitting on Side/Bed(QC): 4 Sit to Stand (QC): 4 Chair/Ube-gl-Ibgzj Xfer(QC): 4 Walk 10 feet (QC): 4 Walk 50ft with 2 Turns (QC): 4 PT Plan Treatment/Plan Treatment Plan: Continue Plan of Care Treatment Plan: Bed Mobility, Education, Functional Activity Shannon, Functional Strength, Gait, Safety, Therapeutic Exercise, Transfers Treatment Duration: Jun 28, 2023 Frequency: 6 times per week Estimated Hrs Per Day: .25 hour per day Patient and/or Family Agrees t: Yes Time Time In: 0800 Time Out: 0810 DATE: Jun 21, 2023 Total Billed Treatment Time: 10 Total Billed Treatment 1, EX x 10' RODNEY SAHA PT Jun 21, 2023 08:15
[2023-06-21] MEDS ORDERED: ACETAMINOPHEN 325 MG TABLET PO PRN (12:00)
[2023-06-21] MEDS ORDERED: CALCIUM CARBONATE 500 MG CHEW TABLET PO PRN (12:00)
--- NOTE | 2023-06-21 16:14 | Progress Note - Hospitalist ---
Subjective HPI/CC On Admission Date Seen by Provider: Jun 21, 2023 Time Seen by Provider: 12:05 Subjective/Events-last exam He is sitting in bed. He has been eating lunch. He has no complaints. Objective Exam Vital Signs Vital Signs Date Time Temp Pulse Resp B/P (MAP) Pulse Ox O2 Delivery O2 Flow Rate FiO2 06/21/23 08:00 Nasal Cannula 4.00 06/17/23 14:27 36.4 96 19 160/77 (104) 95 06/17/23 11:17 50 Capillary Refill : General Appearance: No Apparent Distress, Obese Respiratory: Lungs Clear, No Respiratory Distress Cardiovascular: Regular Rate, Rhythm, No Murmur Gastrointestinal: Normal Bowel Sounds, Soft Extremity: Normal Inspection, Non Tender Neurologic/Psychiatric: Alert, Oriented x3, Normal Mood/Affect Skin: Normal Color, Warm/Dry Results/Procedures Lab Patient resulted labs reviewed. Assessment/Plan Assessment and Plan Assess & Plan/Chief Complaint Acute respiratory failure with hypoxia PNA HFpEF T2DM CKD AFib Comfort care measures only Comfort care orders in place Diagnosis/Problems Diagnosis/Problems (1) Comfort measures only status Status: Acute (2) Acute respiratory failure Status: Acute Qualifiers: Respiratory failure complication: hypoxia and hypercapnia Qualified Codes: J96.01 - Acute respiratory failure with hypoxia; J96.02 - Acute respiratory failure with hypercapnia (3) Pneumonia Status: Acute (4) Acute kidney injury superimposed on chronic kidney disease Status: Acute (5) HTN (hypertension) Status: Acute (6) Congestive heart failure (CHF) Status: Acute MARIO SULLIVAN MD Jun 21, 2023 16:14
--- NOTE | 2023-06-22 14:18 | Progress Note - Hospitalist ---
Subjective HPI/CC On Admission Date Seen by Provider: Jun 22, 2023 Time Seen by Provider: 11:00 Subjective/Events-last exam He is doing well. He has no complaints. Objective Exam Vital Signs Vital Signs Date Time Temp Pulse Resp B/P (MAP) Pulse Ox O2 Delivery O2 Flow Rate FiO2 06/22/23 11:46 Nasal Cannula 2.00 06/21/23 23:05 95 06/17/23 14:27 36.4 96 19 160/77 (104) 06/17/23 11:17 50 Capillary Refill : General Appearance: No Apparent Distress, Obese Respiratory: Lungs Clear, No Respiratory Distress Cardiovascular: Regular Rate, Rhythm, No Murmur Gastrointestinal: Normal Bowel Sounds, Soft Extremity: Normal Inspection, No Pedal Edema Neurologic/Psychiatric: Alert, Normal Mood/Affect Skin: Normal Color, Warm/Dry Results/Procedures Lab Patient resulted labs reviewed. Assessment/Plan Assessment and Plan Assess & Plan/Chief Complaint Acute respiratory failure with hypoxia PNA HFpEF T2DM CKD AFib Comfort care measures only Comfort care orders in place Diagnosis/Problems Diagnosis/Problems (1) Comfort measures only status Status: Acute (2) Acute respiratory failure Status: Acute Qualifiers: Respiratory failure complication: hypoxia and hypercapnia Qualified Codes: J96.01 - Acute respiratory failure with hypoxia; J96.02 - Acute respiratory failure with hypercapnia (3) Pneumonia Status: Acute (4) Acute kidney injury superimposed on chronic kidney disease Status: Acute (5) HTN (hypertension) Status: Acute (6) Congestive heart failure (CHF) Status: Acute MARIO SULLIVAN MD Jun 22, 2023 14:18
[2023-06-23] MEDS ORDERED: hydrALAZINE 25 MG TABLET PO PRN (05:15)
[2023-06-23] MEDS ORDERED: oxyCODONE IMMEDIATE RELEASE 5 MG TABLET PO PRN (05:15)
[2023-06-23] MEDS ORDERED: ACETAMINOPHEN 325 MG TABLET PO PRN (05:15)
[2023-06-23] MEDS ORDERED: RT-ALBUTEROL SULF 2.5 MG/3 ML PRE-MIX VIAL INH PRN (05:15)
[2023-06-23 05:47] LABS: BASOPHILS % (AUTO) 1 % (0-10); EOSINOPHILS # (AUTO) 0.3 10^3/uL (0.0-0.3); EOSINOPHILS % (AUTO) 3 % (0-10); HEMATOCRIT 35 % (40-54); HEMOGLOBIN 11.2 g/dL (13.3-17.7); LYMPHOCYTES # (AUTO) 1.9 10^3/uL (1.0-4.0); LYMPHOCYTES % (AUTO) 22 % (12-44); MEAN CORPUSCULAR HEMOGLOBIN 30 pg (25-34); MEAN CORPUSCULAR HGB CONC 32 g/dL (32-36); MEAN CORPUSCULAR VOLUME 93 fL (80-99); MEAN PLATELET VOLUME 10.3 fL (9.0-12.2); MONOCYTES % (AUTO) 12 % (0-12); NEUTROPHILS # (AUTO) 5.3 10^3/uL (1.8-7.8); NEUTROPHILS % (AUTO) 62 % (42-75); PLATELET COUNT 278 10^3/uL (130-400); WHITE BLOOD COUNT 8.5 10^3/uL (4.3-11.0)
[2023-06-23] MEDS: THERAPEUTIC MULTIVITAMIN W/MINERALS TABLET PO SCH ×2 (06:01→09:16)
[2023-06-23 06:26] LABS: BILIRUBIN,TOTAL 0.6 MG/DL (0.1-1.0); CALCIUM 8.2 MG/DL (8.5-10.1); CREATININE SERUM 1.49 MG/DL (0.60-1.30); POTASSIUM 4.5 MMOL/L (3.6-5.0); TOTAL PROTEIN 6.6 GM/DL (6.4-8.2)
[2023-06-23 08:00] VITALS: BP 169/79
--- NOTE | 2023-06-23 08:03 | Diagnostic Imaging Report ---
INDICATION: Hypoxia. Frontal chest obtained at 5:24 a.m. compared 06/17/2023 FINDINGS: There is cardiomegaly. There is central vascular congestion and diffuse interstitial edema. There is a small right pleural effusion. There is no pneumothorax. IMPRESSION: Cardiomegaly with central vascular congestion and interstitial edema, similar to the previous study. Small right pleural effusion. Dictated by: Dictated on workstation # [id number]
[2023-06-23] MEDS ORDERED: NON-FORMULARY MEDICATION 1 EA EA (Vit C/E/Zn/Coppr/Lutein/Zeaxan (Preservision Areds 2 Sof PO SCH (09:00)
[2023-06-23] MEDS: APIXABAN 2.5 MG TABLET PO SCH ×2 (09:16→21:38)
[2023-06-23] MEDS: PANTOPRAZOLE 40 MG TABLET PO SCH (09:17)
[2023-06-23] MEDS: FINASTERIDE 5 MG TABLET PO SCH (09:17)
[2023-06-23] MEDS: meTOprolol TARTRATE (IR) 25 MG TABLET PO SCH ×2 (09:17→21:37)
[2023-06-23] MEDS: dilTIAZem ER 180 MG CAPSULE PO SCH (09:17)
[2023-06-23] MEDS: ISOSORBIDE MONONITRATE 60 MG TABLET PO SCH (09:17)
[2023-06-23] MEDS: SENNA W/DOCUSATE TABLET PO SCH (09:17)
[2023-06-23] MEDS: FUROSEMIDE 40 MG TABLET PO SCH (09:17)
[2023-06-23] MEDS: DOCUSATE SODIUM 100 MG CAPSULE PO SCH ×2 (09:17→21:38)
[2023-06-23] MEDS: LORATADINE 10 MG TABLET PO SCH (09:18)
[2023-06-23] MEDS: ASPIRIN enteric coated 81MG TABLET PO SCH (09:18)
[2023-06-23] MEDS: TAMSULOSIN 0.4 MG (FLOMAX) CAP PO SCH (09:18)
[2023-06-23] MEDS: FLUTICASONE NASAL SPRAY (120 SPRAYS) NS SCH (09:25)
--- NOTE | 2023-06-23 09:28 | Physical Therapy Daily Note ---
PT Daily Note-Current Subjective Patient has noted increase SOA in supine. Very edematous. Pain Section J - Health Conditions 1. Rarely or not at all 2. Occasionally 3. Frequently 4. Almost constantly 8. Unable to answer Pain Effect on Sleep: 1 Pain Interference with Therapy: 1 Pain Interference w/Day-to-Day: 1 Mental Status Patient Orientation: Person Attachments: Oxygen, Finch Catheter Transfers SCALE: Activities may be completed with or without assistive devices. 1-Jsemhinqxp-tbmhksg completes the activity by him/herself with no assistance from a helper. 5-Set-up or Clean-up Assistance-helper sets up or cleans up; patient completes activity. [place] assists only prior to or following the activity. 4-Supervision or Touching Assistance-helper provides verbal cues and/or touching/steadying and/or contact guard assistance as patient completes activity. Assistance may be provided throughout the activity or intermittently. 3-Partial/Moderate Assistance-helper does LESS THAN HALF the effort. [place] lifts, holds or supports trunk or limbs, but provides less than half the effort. 2-Substantial/Maximal Assistance-helper does MORE THAN HALF the effort. [place] lifts or holds trunk or limbs and provides more than half the effort. 0-Oancwrbrw-adpeqh does ALL the effort. Patient does none of the effort to complete the activity. Or, the assistance of 2 or more helpers is required for the patient to complete the activity. If activity was not attempted, code reason: 7-Patient Refused. 9-Not Applicable-not attempted and the patient did not perform the activity before the current illness, exacerbation or injury. 10-Not Attempted due to Environmental Limitations-(lack of equipment, weather restraints, etc.). 88-Not Attempted due to Medical Conditions or Safety Concerns. Roll Left & Right (QC): 4 Sit to Lying (QC): 2 Lying to Sitting/Side of Bed(Q: 2 Gait Training Walk 10 feet (QC): 7 Walk 50 ft with 2 Turns(QC): 7 Exercises Supine Ex: Ankle pumps, Heel Slides, Hip abd/add Supine Reps: 12 Treatments rolling and repositioning up in bed with assist due to patient inability to perform independently. all exercise AAROM Assessment Patient declined in gross motor skills on this date. Noted increase SOA with minimal activity and patient refusing to OOB activity. PT Long-Term Goals Digital Asset Specialist Goals PT Long-Term Goals Time Frame: Jun 28, 2023 Roll Left & Right (QC): 4 Sit to Lying (QC): 4 Lying-Sitting on Side/Bed(QC): 4 Sit to Stand (QC): 4 Chair/Qnb-ae-Vtwen Xfer(QC): 4 Walk 10 feet (QC): 4 Walk 50ft with 2 Turns (QC): 4 PT Plan Treatment/Plan Treatment Plan: Continue Plan of Care Treatment Plan: Bed Mobility, Education, Functional Activity Shannon, Functional Strength, Gait, Safety, Therapeutic Exercise, Transfers Treatment Duration: Jun 28, 2023 Frequency: 6 times per week Estimated Hrs Per Day: .25 hour per day Patient and/or Family Agrees t: Yes Time Time In: 725 Time Out: 748 DATE: Jun 23, 2023 Total Billed Treatment Time: 23 Total Billed Treatment 1 visit EX x 2 23 min RANJITH FIERRO PT Jun 23, 2023 09:28
--- NOTE | 2023-06-23 10:39 | Occupational Ther Daily Note ---
OT Current Status-Daily Note Subjective Pt seen in room, up in bed, agreeable to OT. No pain reported. Appearance Alert, cooperative ADL-Treatment Therapy Code Descriptions/Definitions Functional [place] Measure: 0=Not Assessed/NA 4=Minimal Assistance 1=Total Assistance 5=Supervision or Setup 2=Maximal Assistance 6=Modified [place] 3=Moderate Assistance 7=Complete IndependenceSCALE: Activities may be completed with or without assistive devices. 9-Fpckvzlnxa-tfamzlk completes the activity by him/herself with no assistance from a helper. 5-Set-up or Clean-up Assistance-helper sets up or cleans up; patient completes activity. [place] assists only prior to or following the activity. 4-Supervision or Touching Assistance-helper provides verbal cues and/or touching/steadying and/or contact guard assistance as patient completes activity. Assistance may be provided throughout the activity or intermittently. 3-Partial/Moderate Assistance-helper does LESS THAN HALF the effort. [place] lifts, holds or supports trunk or limbs, but provides less than half the effort. 2-Substantial/Maximal Assistance-helper does MORE THAN HALF the effort. [place] lifts or holds trunk or limbs and provides more than half the effort. 2-Ilodowlnj-fevvek does ALL the effort. Patient does none of the effort to complete the activity. Or, the assistance of 2 or more helpers is required for the patient to complete the activity. If activity was not attempted, code reason: 7-Patient Refused. 9-Not Applicable-not attempted and the patient did not perform the activity before the current illness, exacerbation or injury. 10-Not Attempted due to Environmental Limitations-(lack of equipment, weather restraints, etc.). 88-Not Attempted due to Medical Conditions or Safety Concerns. Other Treatment Pt able to roll from side to back without assistance and to scoot up in bed a little. SOA after activity. Pt education two different bilat UE exercises that he could do on his own iin bed or when up in recliner, no added resistance. Pt performed 10 reps each ex, with occasional cues. Needed brief recovery time after exercises. Pt educ stretching exercise with red theraband, with cues foir doing ex correctly. Able to do and track 10 reps but needed recovery period after doing them. Pt verbalized and return demonstrated exercises and was encouraged to do them on his own. Theraband left in his room on table within reach. Pt left up in bed, all needs met. 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 2=Patient will verbalize/demonstrate understanding of assistive devices/modifications for ADL. 3=Patient will improve strength/tolerance for activity to enable patient to perform ADL's. OT Education/Plan Discharge Recommendations Plan/Recommendations: Continue POC Treatment Plan/Plan of Care Patient would benefit from OT for education, treatment and training to promote independence in ADL's, mobility, safety and/or upper extremity function for ADL's. Plan of Care: ADL Retraining, Concurrent Therapy, Functional Mobility, Group Exercise/Act as Ind, UE Neuromus Re-Ed/Coord, Visual/Perceptual Retrain Treatment Duration: Jun 24, 2023 Frequency: 3 times per week (3-5 times per week) Estimated Hrs Per Day: .25 hour per day Rehab Potential: Guarded Time Start Time: 09:44 Stop Time: 09:55 DATE: Jun 23, 2023 Total Time Billed (hr/min): 11 Billed Treatment Time visit, 11 minutes exercise TAI RIZZO OT Jun 23, 2023 10:39
[2023-06-23] MEDS ORDERED: INSU100I60 SC (11:06)
[2023-06-23] MEDS ORDERED: ISOS60TA63 PO (11:06)
[2023-06-23] MEDS ORDERED: SENN-117 PO (11:06)
[2023-06-23] MEDS ORDERED: ASPI-1238 PO (11:06)
[2023-06-23] MEDS ORDERED: VIT1CAPS44 PO (11:06)
[2023-06-23] MEDS ORDERED: TRZ50T PO (11:06)
[2023-06-23] MEDS ORDERED: DOCU100C37 PO (11:06)
[2023-06-23] MEDS ORDERED: HYDR-3924 PO (11:06)
[2023-06-23] MEDS ORDERED: ACET325T49 PO (11:06)
[2023-06-23] MEDS ORDERED: HYDR-3923 PO (11:06)
[2023-06-23] MEDS ORDERED: FURO40TA4 PO (11:06)
[2023-06-23] MEDS ORDERED: TMSL.4C PO (11:06)
[2023-06-23] MEDS ORDERED: OMEP40CA6 PO (11:06)
[2023-06-23] MEDS ORDERED: FINA5TAB6 PO (11:06)
[2023-06-23] MEDS ORDERED: MONT-40 PO (11:06)
[2023-06-23] MEDS ORDERED: INSU100I88 SQ (11:06)
[2023-06-23] MEDS ORDERED: APIX2.5T PO (11:06)
[2023-06-23] MEDS ORDERED: MULT-1137 PO (11:06)
[2023-06-23] MEDS ORDERED: CETI10TA17 PO (11:06)
[2023-06-23] MEDS ORDERED: FLUT16SP22 NS (11:06)
[2023-06-23] MEDS ORDERED: DILT180C85 PO (11:06)
[2023-06-23] MEDS ORDERED: METO-333 PO (11:06)
--- NOTE | 2023-06-23 11:07 | Discharge Summary ---
Diagnosis/Chief Complaint Date of Admission Jun 17, 2023 at 10:22 Date of Discharge Discharge Date: Jun 23, 2023 Discharge Summary Discharge Physical Examination Allergies: Coded Allergies: Sulfa (Sulfonamide Antibiotics) (Unverified Allergy, Unknown, 10/10/19) Vitals & I&Os Vital Signs Date Time Temp Pulse Resp B/P (MAP) Pulse Ox O2 Delivery O2 Flow Rate FiO2 06/23/23 19:47 36.5 99 17 121/62 (81) 96 Nasal Cannula 4.00 06/17/23 11:17 50 Hospital Course Labs (last 24 hrs) Laboratory Tests 06/17/23 08:00: White Blood Count 14.4H, Red Blood Count 3.88L, Hemoglobin 11.8L, Hematocrit 38L , Mean Corpuscular Volume 98, Mean Corpuscular Hemoglobin 30, Mean Corpuscular Hemoglobin Concent 31L, Red Cell Distribution Width 14.2, Platelet Count 221, Mean Platelet Volume 10.1, Immature Granulocyte % (Auto) 1, Neutrophils (%) (Auto) 80H, Lymphocytes (%) (Auto) 10L, Monocytes (%) (Auto) 8, Eosinophils (%) (Auto) 1, Basophils (%) (Auto) 0, Neutrophils # (Auto) 11.5H, Lymphocytes # (Auto) 1.5, Monocytes # (Auto) 1.1H, Eosinophils # (Auto) 0.2, Basophils # (Auto) 0.1, Immature Granulocyte # (Auto) 0.1, Neutrophils % (Manual) 86, Lymphocytes % (Manual) 7, Monocytes % (Manual) 5, Eosinophils % (Manual) 2, Blood Morphology Comment NORMAL, Prothrombin Time 15.6H, INR Comment 1.2, Activated Partial Thromboplast Time 38H, Sodium Level 141, Potassium Level 4.7, Chloride Level 102, Carbon Dioxide Level 27, Anion Gap 12, Blood Urea Nitrogen 26H, Creatinine 1.71H, Estimat Glomerular Filtration Rate 39, BUN/Creatinine Ratio 15, Glucose Level 198H, Lactic Acid Level 0.81, Calcium Level 8.8, Corrected Calcium 9.4, Magnesium Level 2.1, Total Bilirubin 1.5H, Aspartate Amino Transf (AST/SGOT) 23, Alanine Aminotransferase (ALT/SGPT) 17, Alkaline Phosphatase 83, Myoglobin 207.3H, Troponin I < 0.028, C-Reactive Protein High Sensitivity 8.45H, B-Type Natriuretic Peptide 245.4H, Total Protein 7.8, Albumin 3.3 06/17/23 08:11: Influenza Type A (RT-PCR) Not Detected, Influenza Type B (RT-PCR) Not Detected, SARS-CoV-2 RNA (RT-PCR) Not Detected 06/17/23 08:20: Urine Color YELLOW, Urine Clarity SLIGHTLY CLOUDY, Urine pH 5.5, [address] >=1.030, Urine Protein 3+H, Urine Glucose (UA) TRACEH, Urine Ketones 1+H , Urine Nitrite NEGATIVE, Urine Bilirubin 1+H, Urine Urobilinogen 2.0, Urine Leukocyte Esterase NEGATIVE, Urine RBC (Auto) 2+H, Urine RBC 10-25H, Urine WBC 2-5, Urine Squamous Epithelial Cells 0-2, Urine Crystals PRESENTH, Urine Amorphous Sediment MOD RAUL URATESH, Urine Bacteria FEWH, Urine Casts PRESENT, Urine Hyaline Casts 0-2H, Urine Granular Casts 2-5H, Urine Mucus NEGATIVE, Urine Culture Indicated YES 06/17/23 10:22: Lab Scanned Report Referred Lab Report 06/17/23 11:00: Glucometer 173H 06/21/23 22:33: Glucometer 122H 06/22/23 20:21: Glucometer 109 06/22/23 23:59: Glucometer 140H 06/23/23 05:15: White Blood Count 8.5, Red Blood Count 3.79L, Hemoglobin 11.2L, Hematocrit 35L, Mean Corpuscular Volume 93, Mean Corpuscular Hemoglobin 30, Mean Corpuscular Hemoglobin Concent 32, Red Cell Distribution Width 13.9, Platelet Count 278, Mean Platelet Volume 10.3, Immature Granulocyte % (Auto) 0, Neutrophils (%) (Auto) 62, Lymphocytes (%) (Auto) 22, Monocytes (%) (Auto) 12, Eosinophils (%) (Auto) 3, Basophils (%) (Auto) 1, Neutrophils # (Auto) 5.3, Lymphocytes # (Auto) 1.9, Monocytes # (Auto) 1.0, Eosinophils # (Auto) 0.3, Basophils # (Auto) 0.0, Immature Granulocyte # (Auto) 0.0, Sodium Level 141, Potassium Level 4.5, Chloride Level 104, Carbon Dioxide Level 30, Anion Gap 7, Blood Urea Nitrogen 22H, Creatinine 1.49H, Estimat Glomerular Filtration Rate 46, BUN/Creatinine Ratio 15, Glucose Level 113H, Calcium Level 8.2L, Corrected Calcium 9.0, Total Bilirubin 0.6, Aspartate Amino Transf (AST/SGOT) 21, Alanine Aminotransferase (ALT/SGPT) 12, Alkaline Phosphatase 71, Total Protein 6.6, Albumin 3.0L 06/23/23 11:10: Glucometer 114H 06/23/23 15:36: Glucometer 143H 06/23/23 20:38: Glucometer 119H Microbiology 06/17/23 Blood Culture - Final, Complete No growth 06/17/23 Urine Culture - Final, Complete NO GROWTH Pending Labs Microbiology Date/Time Source Procedure Growth Status 06/17/23 08:22 Peripheral Lt Hand Blood Culture - Final No growth Complete 06/17/23 08:20 Urine Clean Catch Urine Culture - Final NO GROWTH Complete 06/17/23 08:00 Peripheral Right Wrist Blood Culture - Final No growth Complete Laboratory Tests 06/17/23 08:00: White Blood Count 14.4, Red Blood Count 3.88, Hemoglobin 11.8, Hematocrit 38, Mean Corpuscular Volume 98, Mean Corpuscular Hemoglobin 30, Mean Corpuscular Hemoglobin Concent 31, Red Cell Distribution Width 14.2, Platelet Count 221, Mean Platelet Volume 10.1, Immature Granulocyte % (Auto) 1, Neutrophils (%) (Auto) 80, Lymphocytes (%) (Auto) 10, Monocytes (%) (Auto) 8, Eosinophils (%) (Auto) 1, Basophils (%) (Auto) 0, Neutrophils # (Auto) 11.5, Lymphocytes # (Auto) 1.5, Monocytes # (Auto) 1.1, Eosinophils # (Auto) 0.2, Basophils # (Auto) 0.1, Immature Granulocyte # (Auto) 0.1, Neutrophils % (Manual) 86, Lymphocytes % (Manual) 7, Monocytes % (Manual) 5, Eosinophils % (Manual) 2, Blood Morphology Comment NORMAL, Prothrombin Time 15.6, INR Comment 1.2, Activated Partial Thromboplast Time 38, Sodium Level 141, Potassium Level 4.7, Chloride Level 102, Carbon Dioxide Level 27, Anion Gap 12, Blood Urea Nitrogen 26, Creatinine 1.71, Estimat Glomerular Filtration Rate 39, BUN/Creatinine Ratio 15, Glucose Level 198, Lactic Acid Level 0.81, Calcium Level 8.8, Corrected Calcium 9.4, Magnesium Level 2.1, Total Bilirubin 1.5, Aspartate Amino Transf (AST/SGOT) 23, Alanine Aminotransferase (ALT/SGPT) 17, Alkaline Phosphatase 83, Myoglobin 207.3, Troponin I < 0.028, C-Reactive Protein High Sensitivity 8.45, B-Type Natriuretic Peptide 245.4, Total Protein 7.8, Albumin 3.3 06/17/23 08:11: Influenza Type A (RT-PCR) Not Detected, Influenza Type B (RT-PCR) Not Detected, SARS-CoV-2 RNA (RT-PCR) Not Detected 06/17/23 08:20: Urine Color YELLOW, Urine Clarity SLIGHTLY CLOUDY, Urine pH 5.5, [address] >=1.030, Urine Protein 3+, Urine Glucose (UA) TRACE, Urine Ketones 1+, Urine Nitrite NEGATIVE, Urine Bilirubin 1+, Urine Urobilinogen 2.0, Urine Leukocyte Esterase NEGATIVE, Urine RBC (Auto) 2+, Urine RBC 10-25, Urine WBC 2- 5, Urine Squamous Epithelial Cells 0-2, Urine Crystals PRESENT, Urine Amorphous Sediment MOD RAUL URATES, Urine Bacteria FEW, Urine Casts PRESENT, Urine Hyaline Casts 0-2, Urine Granular Casts 2-5, Urine Mucus NEGATIVE, Urine Culture Indicated YES 06/17/23 10:22: Lab Scanned Report Referred Lab Report 06/17/23 11:00: Glucometer 173 06/21/23 22:33: Glucometer 122 06/22/23 20:21: Glucometer 109 06/22/23 23:59: Glucometer 140 06/23/23 05:15: White Blood Count 8.5, Red Blood Count 3.79, Hemoglobin 11.2, Hematocrit 35, Mean Corpuscular Volume 93, Mean Corpuscular Hemoglobin 30, Mean Corpuscular Hemoglobin Concent 32, Red Cell Distribution Width 13.9, Platelet Count 278, Mean Platelet Volume 10.3, Immature Granulocyte % (Auto) 0, Neutrophils (%) (Auto) 62, Lymphocytes (%) (Auto) 22, Monocytes (%) (Auto) 12, Eosinophils (%) (Auto) 3, Basophils (%) (Auto) 1, Neutrophils # (Auto) 5.3, Lymphocytes # (Auto) 1.9, Monocytes # (Auto) 1.0, Eosinophils # (Auto) 0.3, Basophils # (Auto) 0.0, Immature Granulocyte # (Auto) 0.0, Sodium Level 141, Potassium Level 4.5, Chloride Level 104, Carbon Dioxide Level 30, Anion Gap 7, Blood Urea Nitrogen 22, Creatinine 1.49, Estimat Glomerular Filtration Rate 46, BUN/Creatinine Ratio 15, Glucose Level 113, Calcium Level 8.2, Corrected Calcium 9.0, Total Bilirubin 0.6, Aspartate Amino Transf (AST/SGOT) 21, Alanine Aminotransferase (ALT/SGPT) 12, Alkaline Phosphatase 71, Total Protein 6.6, Albumin 3.0 06/23/23 11:10: Glucometer 114 06/23/23 15:36: Glucometer 143 06/23/23 20:38: Glucometer 119 Discharge Home Medications: Active Scripts Active Tab-A-Oleksandr Multivit with Iron (Multivitamin/Iron/Folic Acid) 18 Mg Iron-400 Mcg Tablet 1 Ea PO DAILY@0700 Acetaminophen 325 Mg Tablet 650 Mg PO Q4H PRN Metoprolol Tartrate 25 Mg Tablet 25 Mg PO BID Hydralazine HCl 25 Mg Tablet 50 Mg PO Q4H PRN Insulin Lispro Jared Kwikpen (Insulin Lispro) 100 Unit/Ml Ins.pen.hf 3 Units SC AC 3 units before meals Docusate Sodium 100 Mg Capsule 100 Mg PO BID Fluticasone Propionate 50 Mcg/Actuation [place].susp 0 [place] NS DAILY 2 puffs each nostril daily Montelukast Sodium 10 Mg Tablet 10 Mg PO HS Diltiazem 24Hr ER (Diltiazem HCl) 180 Mg Cap.er.24h 180 Mg PO DAILY Eliquis (Apixaban) 2.5 Mg Tablet 2.5 Mg PO BID Cetirizine HCl 10 Mg Tablet 10 Mg PO DAILY Aspirin EC (Aspirin) 81 Mg Tablet.dr 81 Mg PO DAILY Hydralazine HCl 50 Mg Tablet 50 Mg PO 0000,0300,1600 Finasteride 5 Mg Tablet 5 Mg PO DAILY Isosorbide Mononitrate ER (Isosorbide Mononitrate) 60 Mg Tab 120 Mg PO DAILY TAKES 2 (60MG) TABS Flomax (Tamsulosin HCl) 0.4 Mg Cap 0.8 Mg PO DAILY Levemir Flexpen (Insulin Detemir) 100 Unit/Ml (3 Ml) Insuln.pen 10 Unit SQ BID Trazodone HCl 50 Mg Tablet 50 Mg PO HS Stimulant Laxative Plus Tablet (Sennosides/Docusate Sodium) 8.6 Mg-50 Mg Tablet 17.2 Mg PO DAILY TAKES 2 (8.6MG) TABS Omeprazole 40 Mg Capsule.dr 30 Mg PO DAILY Furosemide 40 Mg Tablet 40 Mg PO DAILY Preservision Areds 2 Softgel (Vit C/E/Zn/Coppr/Lutein/Zeaxan) 250MG-90MG Capsule 1 Each PO DAILY Oxyir Tablet (Oxycodone HCl) 5 Mg Tab 5 Mg PO Q4HR PRN Albuterol Sulfate 2.5 Mg/3 Ml (0.083 %) Vial.neb 2.5 Mg INH RTQ4HR PRN Instructions to patient/family Please see electronic discharge instructions given to patient. GAYLE OWUSU DO Jun 23, 2023 11:07
--- NOTE | 2023-06-23 11:07 | Discharge Inst-Skilled Nursing ---
Discharge Inst-Skilled NF Reconcile Patient Problems Problems Reviewed?: Yes Patient Instructions Patient Problems: Debility CKD Urinary retention CHF Consult/Follow Up/Orders Follow Up Appt.: PCP NH rounds med director Skilled NF Admit to: Via [facility] Certification ([facility]) I certify that SNF services are required to be given on an inpatient basis because of the above named patient's need for prison care on a continuing basis for the conditions(s) for which he/she was receiving inpatient hospital services prior to his/her transfer to the [facility]. Care Home Facility Order: Nursing Services, Transfill Technician-Evaluate & Treat, Physical Therapy-Evaluate & Treat Oxygen Delivery Method: Nasal Cannula Discharge Diet: ADA Diet Resuscitation Status: Do Not Resuscitate Type of Care: Comfort Measures New & Resume Previous Orders Changed Medications: Insulin Detemir (Levemir Flexpen) 100 Unit/Ml (3 Ml) Insuln.pen 10 UNIT SQ BID, #1 EA (Changed from: 25 UNIT) Omeprazole (Omeprazole) 40 Mg Capsule.dr 30 MG PO DAILY, #30 CAP (Changed from: 40 MG) Continued Medications: Acetaminophen (Acetaminophen) 325 Mg Tablet 650 MG PO Q4H PRN for TEMPERATURE, #30 TAB (This prescription has been renewed) Apixaban (Eliquis) 2.5 Mg Tablet 2.5 MG PO BID, #60 TAB (This prescription has been renewed) Aspirin (Aspirin EC) 81 Mg Tablet.dr 81 MG PO DAILY, #30 TAB (This prescription has been renewed) Cetirizine HCl (Cetirizine HCl) 10 Mg Tablet 10 MG PO DAILY, #30 TAB (This prescription has been renewed) Diltiazem HCl (Diltiazem 24Hr ER) 180 Mg Cap.er.24h 180 MG PO DAILY, #30 CAP (This prescription has been renewed) Docusate Sodium (Docusate Sodium) 100 Mg Capsule 100 MG PO BID, #60 CAP (This prescription has been renewed) Finasteride (Finasteride) 5 Mg Tablet 5 MG PO DAILY, #30 TAB (This prescription has been renewed) Fluticasone Propionate (Fluticasone Propionate) 50 Mcg/Actuation [place].susp 0 SPRAY NS DAILY, #1 EACH (This prescription has been renewed) 2 puffs each nostril daily Furosemide (Furosemide) 40 Mg Tablet 40 MG PO DAILY, #30 TAB (This prescription has been renewed) Hydralazine HCl (Hydralazine HCl) 50 Mg Tablet 50 MG PO 0000,0300,1600, #90 TAB (This prescription has been renewed) Hydralazine HCl (Hydralazine HCl) 25 Mg Tablet 50 MG PO Q4H PRN for sbp>158, #30 TAB (This prescription has been renewed) Insulin Lispro (Insulin Lispro Jared Kwikpen) 100 Unit/Ml Ins.pen.hf 3 UNITS SC AC, #1 EACH (This prescription has been renewed) 3 units before meals Isosorbide Mononitrate (Isosorbide Mononitrate ER) 60 Mg Tab 120 MG PO DAILY, #60 TAB (This prescription has been renewed) TAKES 2 (60MG) TABS Metoprolol Tartrate (Metoprolol Tartrate) 25 Mg Tablet 25 MG PO BID, #60 TAB (This prescription has been renewed) Montelukast Sodium (Montelukast Sodium) 10 Mg Tablet 10 MG PO HS, #30 TAB (This prescription has been renewed) Multivitamin/Iron/Folic Acid (Tab-A-Oleksandr Multivit with Iron) 18 Mg Iron-400 Mcg Tablet 1 EA PO DAILY@0700, #30 TAB (This prescription has been renewed) Sennosides/Docusate Sodium (Stimulant Laxative Plus Tablet) 8.6 Mg-50 Mg Tablet 17.2 MG PO DAILY, #30 TAB (This prescription has been renewed) TAKES 2 (8.6MG) TABS Tamsulosin HCl (Flomax) 0.4 Mg Cap 0.8 MG PO DAILY, #60 CAP (This prescription has been renewed) Trazodone HCl (Trazodone HCl) 50 Mg Tablet 50 MG PO HS, #30 TAB (This prescription has been renewed) Vit C/E/Zn/Coppr/Lutein/Zeaxan (Preservision Areds 2 Softgel) 250MG-90MG Capsule 1 EACH PO DAILY, #30 CAP (This prescription has been renewed) Discontinued Medications: Albuterol Sulfate (Albuterol Sulfate) 2.5 Mg/3 Ml (0.083 %) Vial.neb 2.5 MG INH RTQ4HR PRN for SOA, #60 INHALER Oxycodone Hcl (Oxyir Tablet) 5 Mg Tab 5 MG PO Q4HR PRN for PAIN-SEE DOSE INSTRUCTIONS, #10 TAB Loida Vilchis Jun 23, 2023 11:06 LOIDA VILCHIS DO Jun 23, 2023 11:07
[2023-06-23 11:17] VITALS: BP 175/72
[2023-06-23] MEDS: SCOPOLAMINE PATCH REMOVAL TP SCH (14:44)
[2023-06-23] MEDS: SCOPOLAMINE 1.5 MG PATCH TOP SCH (14:58)
[2023-06-23 15:36] VITALS: BP 129/73
[2023-06-23] MEDS: hydrALAZINE 25 MG TABLET PO SCH (17:09)
[2023-06-23 19:47] VITALS: BP 121/62
[2023-06-23] MEDS ORDERED: traZODone 50 MG (DESYREL) TAB PO SCH (21:00)
[2023-06-23] MEDS ORDERED: MONTELUKAST 10 MG TABLET PO SCH (21:00)
--- NOTE | 2023-06-23 21:14 | Progress Note ---
Subjective Date Seen by a Provider: Jun 23, 2023 Time Seen by a Provider: 10:00 Subjective/Events-last exam Patient doing well Restarted home meds Improved labs since medication holiday when he was on comfort care Daughter now involved after no contact with her father for 20 years DPOA frustrated and is interested in stepping down from her role as DPOA due to family stressors I cannot accommodate any additional NH patients so he will be assigned another physician when he DC to [facility] Review of Systems General: Fatigue, Malaise Objective Exam Last Set of Vital Signs Vital Signs Date Time Temp Pulse Resp B/P (MAP) Pulse Ox O2 Delivery O2 Flow Rate FiO2 06/23/23 19:47 36.5 99 17 121/62 (81) 96 Nasal Cannula 4.00 06/17/23 11:17 50 Capillary Refill : I&O Intake and Output 06/23/23 00:00 Intake Total 1265 ml Output Total 1900 ml Balance -635 ml Intake Oral 1265 ml Output Urine Total 1900 ml # Bowel Movements 2 General: Alert, Oriented X3, Cooperative, No Acute Distress, Other (poor recall, very debilitated) Lungs: Clear to Auscultation, Normal Air Movement Heart: Regular Rate, Normal S1, Normal S2, No Murmurs Psych/Mental Status: Mental Status NL, Mood NL Results Lab Laboratory Tests 06/22/23 23:59: Glucometer 140H 06/23/23 05:15: White Blood Count 8.5, Red Blood Count 3.79L, Hemoglobin 11.2L, Hematocrit 35L, Mean Corpuscular Volume 93, Mean Corpuscular Hemoglobin 30, Mean Corpuscular Hemoglobin Concent 32, Red Cell Distribution Width 13.9, Platelet Count 278, Mean Platelet Volume 10.3, Immature Granulocyte % (Auto) 0, Neutrophils (%) (Auto) 62, Lymphocytes (%) (Auto) 22, Monocytes (%) (Auto) 12, Eosinophils (%) (Auto) 3, Basophils (%) (Auto) 1, Neutrophils # (Auto) 5.3, Lymphocytes # (Auto) 1.9, Monocytes # (Auto) 1.0, Eosinophils # (Auto) 0.3, Basophils # (Auto) 0.0, Immature Granulocyte # (Auto) 0.0, Sodium Level 141, Potassium Level 4.5, Chloride Level 104, Carbon Dioxide Level 30, Anion Gap 7, Blood Urea Nitrogen 22H, Creatinine 1.49H, Estimat Glomerular Filtration Rate 46, BUN/Creatinine Ratio 15, Glucose Level 113H, Calcium Level 8.2L, Corrected Calcium 9.0, Total Bilirubin 0.6, Aspartate Amino Transf (AST/SGOT) 21, Alanine Aminotransferase (ALT/SGPT) 12, Alkaline Phosphatase 71, Total Protein 6.6, Albumin 3.0L 06/23/23 11:10: Glucometer 114H 06/23/23 15:36: Glucometer 143H 06/23/23 20:38: Glucometer 119H Microbiology 06/17/23 Blood Culture - Final, Complete No growth 06/17/23 Urine Culture - Final, Complete NO GROWTH Assessment/Plan Assessment/Plan Assess & Plan/Chief Complaint l Assessment: s/p resp failure 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
[2023-06-23 23:22] VITALS: BP 127/77
[2023-06-24] MEDS: hydrALAZINE 25 MG TABLET PO SCH ×2 (00:14→03:01)
[2023-06-24 03:14] VITALS: BP 128/64
[2023-06-24 07:46] VITALS: BP 132/76
--- NOTE | 2023-06-24 09:08 | Physical Therapy Daily Note ---
PT Daily Note-Current Subjective Patient agrees to PT. Pain Section J - Health Conditions 1. Rarely or not at all 2. Occasionally 3. Frequently 4. Almost constantly 8. Unable to answer Pain Effect on Sleep: 1 Pain Interference with Therapy: 1 Pain Interference w/Day-to-Day: 1 Mental Status Patient Orientation: Person Attachments: Oxygen, Finch Catheter Transfers SCALE: Activities may be completed with or without assistive devices. 0-Hzfgfilgtx-qedxluu completes the activity by him/herself with no assistance from a helper. 5-Set-up or Clean-up Assistance-helper sets up or cleans up; patient completes activity. [place] assists only prior to or following the activity. 4-Supervision or Touching Assistance-helper provides verbal cues and/or touching/steadying and/or contact guard assistance as patient completes activity. Assistance may be provided throughout the activity or intermittently. 3-Partial/Moderate Assistance-helper does LESS THAN HALF the effort. [place] lifts, holds or supports trunk or limbs, but provides less than half the effort. 2-Substantial/Maximal Assistance-helper does MORE THAN HALF the effort. [place] lifts or holds trunk or limbs and provides more than half the effort. 2-Ialhfawoo-honpsd does ALL the effort. Patient does none of the effort to complete the activity. Or, the assistance of 2 or more helpers is required for the patient to complete the activity. If activity was not attempted, code reason: 7-Patient Refused. 9-Not Applicable-not attempted and the patient did not perform the activity before the current illness, exacerbation or injury. 10-Not Attempted due to Environmental Limitations-(lack of equipment, weather restraints, etc.). 88-Not Attempted due to Medical Conditions or Safety Concerns. Lying to Sitting/Side of Bed(Q: 4 Sit to Stand (QC): 3 Chair/Qpy-nc-Jkyfo Xfer(QC): 3 Gait Training Distance: 10' Walk 10 feet (QC): 3 Gait Assistive Device: FWW slightly unsteady Exercises Supine Ex: Ankle pumps, Quad Set, Heel Slides Supine Reps: 15 Seated Therapy Exercises: Ankle pumps, Long arc quads, Hip flexion Seated Reps: 15 Assessment Patient has SOA with minimal activity. Patient up in recliner with needs met. 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 Time Frame: Jun 28, 2023 Roll Left & Right (QC): 4 Sit to Lying (QC): 4 Lying-Sitting on Side/Bed(QC): 4 Sit to Stand (QC): 4 Chair/Mjq-no-Hvjfh Xfer(QC): 4 Walk 10 feet (QC): 4 Walk 50ft with 2 Turns (QC): 4 PT Plan Treatment/Plan Treatment Plan: Continue Plan of Care Treatment Plan: Bed Mobility, Education, Functional Activity [place], Functional Strength, Gait, Safety, Therapeutic Exercise, Transfers Treatment Duration: Jun 28, 2023 Frequency: 6 times per week Estimated Hrs Per Day: .25 hour per day Patient and/or Family Agrees t: Yes Time Time In: 836 Time Out: 850 DATE: Jun 24, 2023 Total Billed Treatment Time: 14 Total Billed Treatment 1 visit EX 14 min RANJITH FIERRO PT Jun 24, 2023 09:08
[2023-06-24] MEDS: PANTOPRAZOLE 40 MG TABLET PO SCH (09:23)
[2023-06-24] MEDS: FUROSEMIDE 40 MG TABLET PO SCH (09:23)
[2023-06-24] MEDS: SENNA W/DOCUSATE TABLET PO SCH (09:23)
[2023-06-24] MEDS: dilTIAZem ER 180 MG CAPSULE PO SCH (09:23)
[2023-06-24] MEDS: meTOprolol TARTRATE (IR) 25 MG TABLET PO SCH (09:24)
[2023-06-24] MEDS: FINASTERIDE 5 MG TABLET PO SCH (09:24)
[2023-06-24] MEDS: ISOSORBIDE MONONITRATE 60 MG TABLET PO SCH (09:25)
[2023-06-24] MEDS: ASPIRIN enteric coated 81MG TABLET PO SCH (09:25)
[2023-06-24] MEDS: DOCUSATE SODIUM 100 MG CAPSULE PO SCH (09:25)
[2023-06-24] MEDS: LORATADINE 10 MG TABLET PO SCH (09:25)
[2023-06-24] MEDS: TAMSULOSIN 0.4 MG (FLOMAX) CAP PO SCH (09:25)
[2023-06-24] MEDS: FLUTICASONE NASAL SPRAY (120 SPRAYS) NS SCH (09:26)
[2023-06-24] MEDS: APIXABAN 2.5 MG TABLET PO SCH (09:29)
--- NOTE | 2023-06-24 09:31 | Occupational Ther Daily Note ---
OT Current Status-Daily Note Subjective Pt seen in room, up in recliner, agreeable to OT. No pain mentioned. Appearance Alert, cooperative Mental Status/Objective Attachments: Finch Catheter, Oxygen ADL-Treatment Therapy Code Descriptions/Definitions Functional [place] Measure: 0=Not Assessed/NA 4=Minimal Assistance 1=Total Assistance 5=Supervision or Setup 2=Maximal Assistance 6=Modified [place] 3=Moderate Assistance 7=Complete IndependenceSCALE: Activities may be completed with or without assistive devices. 5-Mgzwktfkni-sebkkvu completes the activity by him/herself with no assistance from a helper. 5-Set-up or Clean-up Assistance-helper sets up or cleans up; patient completes activity. [place] assists only prior to or following the activity. 4-Supervision or Touching Assistance-helper provides verbal cues and/or touching/steadying and/or contact guard assistance as patient completes activity. Assistance may be provided throughout the activity or intermittently. 3-Partial/Moderate Assistance-helper does LESS THAN HALF the effort. [place] lif ts, holds or supports trunk or limbs, but provides less than half the effort. 2-Substantial/Maximal Assistance-helper does MORE THAN HALF the effort. [place] lifts or holds trunk or limbs and provides more than half the effort. 3-Xfrhnxeos-dwkrwk does ALL the effort. Patient does none of the effort to complete the activity. Or, the assistance of 2 or more helpers is required for the patient to complete the activity. If activity was not attempted, code reason: 7-Patient Refused. 9-Not Applicable-not attempted and the patient did not perform the activity before the current illness, exacerbation or injury. 10-Not Attempted due to Environmental Limitations-(lack of equipment, weather restraints, etc.). 88-Not Attempted due to Medical Conditions or Safety Concerns. Other Treatment Pt recalled two bilat UE exercises without resistance from yesterday and performed 5-6 repetitions of each, requiring frequent recovery breaks due to SOA. O2 in place throughout. Pt concerned about not having O2 on discharge, stating that he thinks he needs it. Pt also completed 5-6 reps exercises with red theraband and demonstrated how he does them in different planes. Pt left up in recliner, all needs met. Education OT Patient Education: Energy conservation, Exercise program, Purpose of tx/functional activities Teaching Recipient: Patient Teaching Methods: Demonstration, Discussion Response to Teaching: Verbalize Understanding, Return Demonstration, Reinforcement Needed OT Director Of Clinical Applications Goals Director Of Clinical Applications Goals 1=Demonstrate adherence to instructed precautions during ADL tasks. 2=Patient will verbalize/demonstrate understanding of assistive devices/modifications for ADL. 3=Patient will improve strength/tolerance for activity to enable patient to perform ADL's. OT Education/Plan Discharge Recommendations Plan/Recommendations: Continue POC Treatment Plan/Plan of Care Patient would benefit from OT for education, treatment and training to promote independence in ADL's, mobility, safety and/or upper extremity function for ADL's. Plan of Care: ADL Retraining, Concurrent Therapy, Functional Mobility, Group Exercise/Act as Ind, UE Neuromus Re-Ed/Coord, Visual/Perceptual Retrain Treatment Duration: Jun 24, 2023 Frequency: 3 times per week (3-5 times per week) Estimated Hrs Per Day: .25 hour per day Rehab Potential: Guarded Time Start Time: 08:50 Stop Time: 09:05 DATE: Jun 24, 2023 Total Time Billed (hr/min): 15 Billed Treatment Time visit, 13 minutes exercise, 2 minutes ADL TAI RIZZO OT Jun 24, 2023 09:31
--- NOTE | 2023-06-24 10:36 | Discharge Summary ---
Diagnosis/Chief Complaint Date of Admission Jun 17, 2023 at 10:22 Date of Discharge Discharge Date: Jun 24, 2023 Discharge Diagnosis Assessment: s/p resp failure acute on chronic CKD DM HTN Advanced age DNR Delirium Discharge Summary Discharge Physical Examination Allergies: Coded Allergies: Sulfa (Sulfonamide Antibiotics) (Unverified Allergy, Unknown, 10/10/19) Vitals & I&Os Vital Signs Date Time Temp Pulse Resp B/P (MAP) Pulse Ox O2 Delivery O2 Flow Rate FiO2 06/24/23 14:39 36.2 99 18 122/79 96 Nasal Cannula 3.00 General Appearance: Alert, Oriented X3, Cooperative Respiratory: Clear to Auscultation Cardiovascular: Regular Rate Psych/Mental Status: Mental Status NL Hospital Course Was the Problem List Reviewed?: Yes Hospital course: Patient had a lengthy hospital course most of it was in comfort care after he declined significantly following BiPAP placement in ICU. DPOA Sister and I discussed in great depth regarding his poor prognosis. He ultimate ly regain cognition and function and comfort care protocol was discontinued and home medications were restarted blood sugars remained stable labs remained stable and he was ready for discharge to [facility]. Labs (last 24 hrs) Laboratory Tests 06/17/23 08:00: White Blood Count 14.4H, Red Blood Count 3.88L, Hemoglobin 11.8L, Hematocrit 38L , Mean Corpuscular Volume 98, Mean Corpuscular Hemoglobin 30, Mean Corpuscular Hemoglobin Concent 31L, Red Cell Distribution Width 14.2, Platelet Count 221, Mean Platelet Volume 10.1, Immature Granulocyte % (Auto) 1, Neutrophils (%) (Auto) 80H, Lymphocytes (%) (Auto) 10L, Monocytes (%) (Auto) 8, Eosinophils (%) (Auto) 1, Basophils (%) (Auto) 0, Neutrophils # (Auto) 11.5H, Lymphocytes # (Auto) 1.5, Monocytes # (Auto) 1.1H, Eosinophils # (Auto) 0.2, Basophils # (Auto) 0.1, Immature Granulocyte # (Auto) 0.1, Neutrophils % (Manual) 86, Lymphocytes % (Manual) 7, Monocytes % (Manual) 5, Eosinophils % (Manual) 2, Blood Morphology Comment NORMAL, Prothrombin Time 15.6H, INR Comment 1.2, Activated Partial Thromboplast Time 38H, Sodium Level 141, Potassium Level 4.7, Chloride Level 102, Carbon Dioxide Level 27, Anion Gap 12, Blood Urea Nitrogen 26H, Creatinine 1.71H, Estimat Glomerular Filtration Rate 39, BUN/Creatinine Ratio 15, Glucose Level 198H, Lactic Acid Level 0.81, Calcium Level 8.8, Corrected Calcium 9.4, Magnesium Level 2.1, Total Bilirubin 1.5H, Aspartate Amino Transf (AST/SGOT) 23, Alanine Aminotransferase (ALT/SGPT) 17, Alkaline Phosphatase 83, Myoglobin 207.3H, Troponin I < 0.028, C-Reactive Protein High Sensitivity 8.45H, B-Type Natriuretic Peptide 245.4H, Total Protein 7.8, Albumin 3.3 06/17/23 08:11: Influenza Type A (RT-PCR) Not Detected, Influenza Type B (RT-PCR) Not Detected, SARS-CoV-2 RNA (RT-PCR) Not Detected 06/17/23 08:20: Urine Color YELLOW, Urine Clarity SLIGHTLY CLOUDY, Urine pH 5.5, Urine Specific [place] >=1.030, Urine Protein 3+H, Urine Glucose (UA) TRACEH, Urine Ketones 1+H , Urine Nitrite NEGATIVE, Urine Bilirubin 1+H, Urine Urobilinogen 2.0, Urine Leukocyte Esterase NEGATIVE, Urine RBC (Auto) 2+H, Urine RBC 10-25H, Urine WBC 2-5, Urine Squamous Epithelial Cells 0-2, Urine Crystals PRESENTH, Urine Amorphous Sediment MOD RAUL URATESH, Urine Bacteria FEWH, Urine Casts PRESENT, Urine Hyaline Casts 0-2H, Urine Granular Casts 2-5H, Urine Mucus NEGATIVE, Urine Culture Indicated YES 06/17/23 10:22: Lab Scanned Report Referred Lab Report 06/17/23 11:00: Glucometer 173H 06/21/23 22:33: Glucometer 122H 06/22/23 20:21: Glucometer 109 06/22/23 23:59: Glucometer 140H 06/23/23 05:15: White Blood Count 8.5, Red Blood Count 3.79L, Hemoglobin 11.2L, Hematocrit 35L, Mean Corpuscular Volume 93, Mean Corpuscular Hemoglobin 30, Mean Corpuscular Hemoglobin Concent 32, Red Cell Distribution Width 13.9, Platelet Count 278, Mean Platelet Volume 10.3, Immature Granulocyte % (Auto) 0, Neutrophils (%) (Auto) 62, Lymphocytes (%) (Auto) 22, Monocytes (%) (Auto) 12, Eosinophils (%) (Auto) 3, Basophils (%) (Auto) 1, Neutrophils # (Auto) 5.3, Lymphocytes # (Auto) 1.9, Monocytes # (Auto) 1.0, Eosinophils # (Auto) 0.3, Basophils # (Auto) 0.0, Immature Granulocyte # (Auto) 0.0, Sodium Level 141, Potassium Level 4.5, Chloride Level 104, Carbon Dioxide Level 30, Anion Gap 7, Blood Urea Nitrogen 22H, Creatinine 1.49H, Estimat Glomerular Filtration Rate 46, BUN/Creatinine Ratio 15, Glucose Level 113H, Calcium Level 8.2L, Corrected Calcium 9.0, Total Bilirubin 0.6, Aspartate Amino Transf (AST/SGOT) 21, Alanine Aminotransferase (ALT/SGPT) 12, Alkaline Phosphatase 71, Total Protein 6.6, Albumin 3.0L 06/23/23 11:10: Glucometer 114H 06/23/23 15:36: Glucometer 143H 06/23/23 20:38: Glucometer 119H 06/24/23 00:06: Glucometer 108 06/24/23 05:06: Glucometer 130H 06/24/23 11:47: Glucometer 196H Microbiology 06/17/23 Blood Culture - Final, Complete No growth 06/17/23 Urine Culture - Final, Complete NO GROWTH Pending Labs Microbiology Date/Time Source Procedure Growth Status 06/17/23 08:22 Peripheral Lt Hand Blood Culture - Final No growth Complete 06/17/23 08:20 Urine Clean Catch Urine Culture - Final NO GROWTH Complete 06/17/23 08:00 Peripheral Right Wrist Blood Culture - Final No growth Complete Laboratory Tests 06/17/23 08:00: White Blood Count 14.4, Red Blood Count 3.88, Hemoglobin 11.8, Hematocrit 38, Mean Corpuscular Volume 98, Mean Corpuscular Hemoglobin 30, Mean Corpuscular Hemoglobin Concent 31, Red Cell Distribution Width 14.2, Platelet Count 221, Mean Platelet Volume 10.1, Immature Granulocyte % (Auto) 1, Neutrophils (%) (Auto) 80, Lymphocytes (%) (Auto) 10, Monocytes (%) (Auto) 8, Eosinophils (%) (Auto) 1, Basophils (%) (Auto) 0, Neutrophils # (Auto) 11.5, Lymphocytes # (Auto) 1.5, Monocytes # (Auto) 1.1, Eosinophils # (Auto) 0.2, Basophils # (Auto) 0.1, Immature Granulocyte # (Auto) 0.1, Neutrophils % (Manual) 86, Lymphocytes % (Manual) 7, Monocytes % (Manual) 5, Eosinophils % (Manual) 2, Blood Morphology Comment NORMAL, Prothrombin Time 15.6, INR Comment 1.2, Activated Partial Thromboplast Time 38, Sodium Level 141, Potassium Level 4.7, Chloride Level 102, Carbon Dioxide Level 27, Anion Gap 12, Blood Urea Nitrogen 26, Creatinine 1.71, Estimat Glomerular Filtration Rate 39, BUN/Creatinine Ratio 15, Glucose Level 198, Lactic Acid Level 0.81, Calcium Level 8.8, Corrected Calcium 9.4, Magnesium Level 2.1, Total Bilirubin 1.5, Aspartate Amino Transf (AST/SGOT) 23, Alanine Aminotransferase (ALT/SGPT) 17, Alkaline Phosphatase 83, Myoglobin 207.3, Troponin I < 0.028, C-Reactive Protein High Sensitivity 8.45, B-Type Natriuretic Peptide 245.4, Total Protein 7.8, Albumin 3.3 06/17/23 08:11: Influenza Type A (RT-PCR) Not Detected, Influenza Type B (RT-PCR) Not Detected, SARS-CoV-2 RNA (RT-PCR) Not Detected 06/17/23 08:20: Urine Color YELLOW, Urine Clarity SLIGHTLY CLOUDY, Urine pH 5.5, Urine Specific [place] >=1.030, Urine Protein 3+, Urine Glucose (UA) TRACE, Urine Ketones 1+, Urine Nitrite NEGATIVE, Urine Bilirubin 1+, Urine Urobilinogen 2.0, Urine Leukocyte Esterase NEGATIVE, Urine RBC (Auto) 2+, Urine RBC 10-25, Urine WBC 2- 5, Urine Squamous Epithelial Cells 0-2, Urine Crystals PRESENT, Urine Amorphous Sediment MOD RAUL URATES, Urine Bacteria FEW, Urine Casts PRESENT, Urine Hyaline Casts 0-2, Urine Granular Casts 2-5, Urine Mucus NEGATIVE, Urine Culture Indicated YES 06/17/23 10:22: Lab Scanned Report Referred Lab Report 06/17/23 11:00: Glucometer 173 06/21/23 22:33: Glucometer 122 06/22/23 20:21: Glucometer 109 06/22/23 23:59: Glucometer 140 06/23/23 05:15: White Blood Count 8.5, Red Blood Count 3.79, Hemoglobin 11.2, Hematocrit 35, Mean Corpuscular Volume 93, Mean Corpuscular Hemoglobin 30, Mean Corpuscular Hemoglobin Concent 32, Red Cell Distribution Width 13.9, Platelet Count 278, Mean Platelet Volume 10.3, Immature Granulocyte % (Auto) 0, Neutrophils (%) (Auto) 62, Lymphocytes (%) (Auto) 22, Monocytes (%) (Auto) 12, Eosinophils (%) (Auto) 3, Basophils (%) (Auto) 1, Neutrophils # (Auto) 5.3, Lymphocytes # (Auto) 1.9, Monocytes # (Auto) 1.0, Eosinophils # (Auto) 0.3, Basophils # (Auto) 0.0, Immature Granulocyte # (Auto) 0.0, Sodium Level 141, Potassium Level 4.5, Chloride Level 104, Carbon Dioxide Level 30, Anion Gap 7, Blood Urea Nitrogen 22, Creatinine 1.49, Estimat Glomerular Filtration Rate 46, BUN/Creatinine Ratio 15, Glucose Level 113, Calcium Level 8.2, Corrected Calcium 9.0, Total Bilirubin 0.6, Aspartate Amino Transf (AST/SGOT) 21, Alanine Aminotransferase (ALT/SGPT) 12, Alkaline Phosphatase 71, Total Protein 6.6, Albumin 3.0 06/23/23 11:10: Glucometer 114 06/23/23 15:36: Glucometer 143 06/23/23 20:38: Glucometer 119 06/24/23 00:06: Glucometer 108 06/24/23 05:06: Glucometer 130 06/24/23 11:47: Glucometer 196 Discharge Home Medications: Active Scripts Active Tab-A-Oleksandr Multivit with Iron (Multivitamin/Iron/Folic Acid) 18 Mg Iron-400 Mcg Tablet 1 Ea PO DAILY@0700 Acetaminophen 325 Mg Tablet 650 Mg PO Q4H PRN Metoprolol Tartrate 25 Mg Tablet 25 Mg PO BID Hydralazine HCl 25 Mg Tablet 50 Mg PO Q4H PRN Insulin Lispro Jared Kwikpen (Insulin Lispro) 100 Unit/Ml Ins.pen.hf 3 Units SC AC 3 units before meals Docusate Sodium 100 Mg Capsule 100 Mg PO BID Fluticasone Propionate 50 Mcg/Actuation [place].susp 0 [place] NS DAILY 2 puffs each nostril daily Montelukast Sodium 10 Mg Tablet 10 Mg PO HS Diltiazem 24Hr ER (Diltiazem HCl) 180 Mg Cap.er.24h 180 Mg PO DAILY Eliquis (Apixaban) 2.5 Mg Tablet 2.5 Mg PO BID Cetirizine HCl 10 Mg Tablet 10 Mg PO DAILY Aspirin EC (Aspirin) 81 Mg Tablet.dr 81 Mg PO DAILY Hydralazine HCl 50 Mg Tablet 50 Mg PO 0000,0300,1600 Finasteride 5 Mg Tablet 5 Mg PO DAILY Isosorbide Mononitrate ER (Isosorbide Mononitrate) 60 Mg Tab 120 Mg PO DAILY TAKES 2 (60MG) TABS Flomax (Tamsulosin HCl) 0.4 Mg Cap 0.8 Mg PO DAILY Levemir Flexpen (Insulin Detemir) 100 Unit/Ml (3 Ml) Insuln.pen 10 Unit SQ BID Trazodone HCl 50 Mg Tablet 50 Mg PO HS Stimulant Laxative Plus Tablet (Sennosides/Docusate Sodium) 8.6 Mg-50 Mg Tablet 17.2 Mg PO DAILY TAKES 2 (8.6MG) TABS Omeprazole 40 Mg Capsule.dr 30 Mg PO DAILY Furosemide 40 Mg Tablet 40 Mg PO DAILY Preservision Areds 2 Softgel (Vit C/E/Zn/Coppr/Lutein/Zeaxan) 250MG-90MG Capsule 1 Each PO DAILY Instructions to patient/family Please see electronic discharge instructions given to patient. GAYLE OWUSU DO Jun 24, 2023 10:36
[2023-06-24 11:51] VITALS: BP 122/79
[2023-06-24 14:39] VITALS: BP 122/79
== END 2023-06-24 14:40 | disposition home or self-care (01) | DRG 193 ==
LOC: EDUNIT# 07:47 → ER 07:48 → ICU 10:22 → 4TH 14:18
PROVIDERS: ADMIT Internal Medicine; ATTEND Internal Medicine
PROC: 5A09357 Assistance with Respiratory Ventilation, Less than 24 Consecutive Hours, Continuous Positive Airway Pressure (ICD-10-PCS; principal; 2023-06-17)
DX: J18.9 Pneumonia, unspecified organism (principal); I50.31 Acute diastolic (congestive) heart failure; J96.20 Acute and chronic respiratory failure, unspecified whether with hypoxia or hypercapnia; I13.0 Hypertensive heart and chronic kidney disease with heart failure and stage 1 through stage 4 chronic kidney disease, or unspecified chronic kidney disease; N18.9 Chronic kidney disease, unspecified; E11.22 Type 2 diabetes mellitus with diabetic chronic kidney disease; Z66 Do not resuscitate; R41.0 Disorientation, unspecified; R33.9 Retention of urine, unspecified; I48.91 Unspecified atrial fibrillation; Z51.5 Encounter for palliative care; Z79.82 Long term (current) use of aspirin; Z79.4 Long term (current) use of insulin; Z79.899 Other long term (current) drug therapy; E11.40 Type 2 diabetes mellitus with diabetic neuropathy, unspecified; Z20.822 Contact with and (suspected) exposure to COVID-19
CPT/HCPCS: 36415; 71045; 80053; 81000; 82947; 83605; 83735; 83874; 83880; 84484; 85007; 85025; 85027; 85610; 85730; 86141; 87040; 87088; 87636; 93005; 93041; 94640; 94760

== ENCOUNTER 2023-06-25 18:09 | Emergency (ER) | payer MEDICARE ==
[2023-06-25 18:12] VITALS: BP 128/96
--- NOTE | 2023-06-25 18:15 | ED General ---
General Stated Complaint: UNSTEADY | WEAKNESS Source of Information: Patient Exam Limitations: No Limitations History of Present Illness Date Seen by Provider: Jun 25, 2023 Time Seen by Provider: 18:15 Initial Comments Patient is an 82-year-old male who presents to the emergency department with a chief complaint of generalized weakness and inability to urinate. Patient has had an indwelling Finch catheter over recent weeks and it was removed yesterday. By report of the prison he was able to void spontaneously throughout the night however has not voided all day long. Patient also complains of no bowel movement over the last 3 or 4 days but he is a little bit confused on exactly when his last bowel movement was. He states normally he does have 1 daily. He was a little nauseous earlier in the day. He states he is no longer nauseous. He denies chest pain or shortness of breath. He does have quite a significant amount of lower abdominal pain consistent with urinary retention. He denies fevers or chills. He has a cough that is lingering due to recent pneumonia. It is nonproductive. Denies any known fevers or chills. No sore throat or runny nose. He is a diabetic history of congestive heart failure. He is on chronic anticoagulation with a history of intermittent atrial fibrillation. Patient is noted to be in A-fib at this time rate 1 10-1 15. Normal blood pressure. He is afebrile awake, alert and oriented to self and situation. Timing/Duration: 12-24 Hours Severity: Moderate Associated Systoms: Malaise, Nausea/Vomiting (nausea without vomiting) Allergies and Home Medications Allergies Coded Allergies: Sulfa (Sulfonamide Antibiotics) (Unverified Allergy, Unknown, 10/10/19) Patient Home Medication List Home Medication List Reviewed: Yes Acetaminophen (Acetaminophen) 325 Mg Tablet, 650 MG PO Q4H PRN for TEMPERATURE Prescribed by: GAYLE OWUSU on 06/23/23 1106 Apixaban (Eliquis) 2.5 Mg Tablet, 2.5 MG PO BID Prescribed by: GAYLE OWUSU on 06/23/23 110 Aspirin (Aspirin EC) 81 Mg Tablet.dr, 81 MG PO DAILY Prescribed by: GAYLE OWUSU on 06/23/23 110 Cetirizine HCl (Cetirizine HCl) 10 Mg Tablet, 10 MG PO DAILY Prescribed by: GAYLE OWUSU on 06/23/231105 Diltiazem HCl (Diltiazem 24Hr ER) 180 Mg Cap.er.24h, 180 MG PO DAILY Prescribed by: GAYLE OWUSU on 06/23/231105 Docusate Sodium (Docusate Sodium) 100 Mg Capsule, 100 MG PO BID Prescribed by: GAYLE OWUSU on 06/23/23 110 Finasteride (Finasteride) 5 Mg Tablet, 5 MG PO DAILY Prescribed by: GAYLE OWUSU on 06/23/231105 Fluticasone Propionate (Fluticasone Propionate) 50 Mcg/Actuation [place].susp, 0 SPRAY NS DAILY Prescribed by: GAYLE OWUSU on 06/23/231105 Furosemide (Furosemide) 40 Mg Tablet, 40 MG PO DAILY Prescribed by: GAYLE OWUSU on 06/23/231105 Hydralazine HCl (Hydralazine HCl) 50 Mg Tablet, 50 MG PO 0000,0300,1600 Prescribed by: GAYLE OWUSU on 06/23/231105 Hydralazine HCl (Hydralazine HCl) 25 Mg Tablet, 50 MG PO Q4H PRN for sbp>158 Prescribed by: GAYLE OWUSU on 06/23/231105 Insulin Detemir (Levemir Flexpen) 100 Unit/Ml (3 Ml) Insuln.pen, 10 UNIT SQ BID Prescribed by: GAYLE OWUSU on 06/23/231105 Insulin Lispro (Insulin Lispro Jared Kwikpen) 100 Unit/Ml Ins.pen.hf, 3 UNITS SC AC Prescribed by: GAYLE OWUSU on 06/23/231105 Isosorbide Mononitrate (Isosorbide Mononitrate ER) 60 Mg Tab, 120 MG PO DAILY Prescribed by: GAYLE OWUSU on 06/23/231105 Metoprolol Tartrate (Metoprolol Tartrate) 25 Mg Tablet, 25 MG PO BID Prescribed by: GAYLE OWUSU on 06/23/231105 Montelukast Sodium (Montelukast Sodium) 10 Mg Tablet, 10 MG PO HS Prescribed by: GAYLE OWUSU on 06/23/231105 Multivitamin/Iron/Folic Acid (Tab-A-Oleksandr Multivit with Iron) 18 Mg Iron-400 Mcg Tablet, 1 EA PO DAILY@0700 Prescribed by: GAYLE OWUSU on 06/23/231105 Omeprazole (Omeprazole) 40 Mg Capsule.dr, 30 MG PO DAILY Prescribed by: GAYLE OWUSU on 06/23/231105 Sennosides/Docusate Sodium (Stimulant Laxative Plus Tablet) 8.6 Mg-50 Mg Tablet, 17.2 MG PO DAILY Prescribed by: GAYLE OWUSU on 06/23/231105 Tamsulosin HCl (Flomax) 0.4 Mg Cap, 0.8 MG PO DAILY Prescribed by: GAYLE OWUSU on 06/23/231105 Trazodone HCl (Trazodone HCl) 50 Mg Tablet, 50 MG PO HS Prescribed by: GAYLE OWUSU on 06/23/231105 Vit C/E/Zn/Coppr/Lutein/Zeaxan (Preservision Areds 2 Softgel) 250MG-90MG Capsule, 1 EACH PO DAILY Prescribed by: GAYLE OWUSU on 06/23/231105 Discontinued Medications Albuterol Sulfate (Albuterol Sulfate) 2.5 Mg/3 Ml (0.083 %) Vial.neb, 2.5 MG INH RTQ4HR PRN for SOA Prescribed by: GAYLE OWUSU on 06/16/231100 Oxycodone Hcl (Oxyir Tablet) 5 Mg Tab, 5 MG PO Q4HR PRN for PAIN-SEE DOSE INSTRUCTIONS Prescribed by: GAYLE OWUSU on 06/16/231100 Review of Systems Review of Systems Constitutional: see HPI EENTM: no symptoms reported Respiratory: no symptoms reported Cardiovascular: no symptoms reported Gastrointestinal: abdominal pain, constipation Genitourinary: other (unable to urinate/retention) Musculoskeletal: no symptoms reported Skin: no symptoms reported Psychiatric/Neurological: No Symptoms Reported Past Unmjdvh-Lzxpyu-Jsjdjl Hx Immunizations Up To Date Tetanus Booster (TDap): Less than 5yrs First/Initial COVID19 Vaccinat: RECEIVED, UNK WHEN Second COVID19 Vaccination Zoltan: RECEIVED, UNK WHEN Third COVID19 Vaccination Date: RECEIVED, UNK WHEN Seasonal Allergies Seasonal Allergies: No Past Medical History Surgery/Hospitalization HX: diverticulitis, htn, bph, macular degeneration, iddm Surgeries: Yes (CARDIAC CATH --NO INTERVENTION) Cardiac Respiratory: Yes (Pneumonia patient states "when i was 1") Pneumonia Cardiac: Yes (CARDIAC CATH-NO INTERVENTION;NSTEMI 10/2019;[facility] RIGHT LEG EDEMA- US NEGATIVE) Atrial Fibrillation Neurological: Yes (PERIPHERAL NEUROPATHY) Neuropathy Genitourinary: Yes (Chronic kidney disease stage 3 ; GFR TYPICALLY IN 30'S) Benign Prostatic Hyperpl, Bladder Infection, Renal Failure Gastrointestinal: Yes (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;DIVERTICULITIS-NO SURGERY) Diverticulosis, Gall Bladder Disease Musculoskeletal: No Endocrine: Yes (SELF MEDICATES WITH HIS INSULIN; OBESITY) Diabetes, Insulin dep HEENT: No (patient wears glasses ) Loss of Vision: Denies Hearing Impairment: Denies Cancer: No Psychosocial: No Integumentary: No Blood Disorders: No Family Medical History Cardiovascular disease 19 FATHER Hypertension 19 FATHER No Pertinent Family Hx, CAD Over 55 Years Old, Hypertension PAST SURGICAL HISTORY: -CARDIAC CATH 11/09/19--DIFFUSELY CALCIFIED CORONARY ARTERIES, SMALL VESSEL DISEASE, NO INTERVENTION - Physical Exam Vital Signs Vital Signs - First Documented 06/25/23 18:12 Temp 36.3 Pulse 121 Resp 12 B/P (MAP) 128/96 (107) Pulse Ox 98 O2 Delivery Nasal Cannula O2 Flow Rate 3.00 Capillary Refill : Height, Weight, BMI Height: 5'7.00" Weight: 200lbs. oz. [id number]; 35.23 BMI Method:Estimated General Appearance: No Apparent Distress, WD/WN Eyes: Bilateral Eye Normal Inspection, Bilateral Eye PERRL, Bilateral Eye EOMI HEENT: PERRL/EOMI Neck: Normal Inspection Respiratory: Lungs Clear, Normal Breath Sounds, No Accessory Muscle Use, No Respiratory Distress Cardiovascular: Normal Peripheral Pulses, Irregularly Irregular, Tachycardia (110), Other (1+ edema Bilateral LE) Gastrointestinal: Soft Extremity: Normal Inspection Neurologic/Psychiatric: Alert, Oriented x3, No Motor/Sensory Deficits, Normal Mood/Affect, phlebotomy tech II-XII Norm as Tested Skin: Warm/Dry, Pallor Progress/Results/Core Measures Suspected Sepsis SIRS Temperature: Pulse: Respiratory Rate: Laboratory Tests 06/25/23 18:57: White Blood Count 7.2 Blood Pressure / Mean: Laboratory Tests 06/25/23 18:57: Creatinine 1.92H, Platelet Count 323 Results/Orders Lab Results Laboratory Tests Test 06/25/23 18:34 06/25/23 18:57 Range/Units Urine Color YELLOW Urine Clarity CLEAR Urine pH 6.5 5-9 Urine Specific [place] 1.020 1.016-1.022 Urine Protein 2+ H NEGATIVE Urine Glucose (UA) NEGATIVE NEGATIVE Urine Ketones NEGATIVE NEGATIVE Urine Nitrite NEGATIVE NEGATIVE Urine Bilirubin NEGATIVE NEGATIVE Urine Urobilinogen 1.0 < = 1.0 MG/DL Urine Leukocyte Esterase NEGATIVE NEGATIVE Urine RBC (Auto) NEGATIVE NEGATIVE Urine RBC 0-2 /HPF Urine WBC NONE /HPF Urine Squamous Epithelial Cells NONE /HPF Urine Crystals NONE /LPF Urine Bacteria NEGATIVE /HPF Urine Casts NONE /LPF Urine Mucus NEGATIVE /LPF Urine Culture Indicated NO White Blood Count 7.2 4.3-11.0 10^3/uL Red Blood Count 3.91 L 4.30-5.52 10^6/uL Hemoglobin 11.7 L 13.3-17.7 g/dL Hematocrit 36 L 40-54 % Mean Corpuscular Volume 93 80-99 fL Mean Corpuscular Hemoglobin 30 25-34 pg Mean Corpuscular Hemoglobin Concent 32 32-36 g/dL Red Cell Distribution Width 14.9 H 10.0-14.5 % Platelet Count 323 130-400 10^3/uL Mean Platelet Volume 9.9 9.0-12.2 fL Immature Granulocyte % (Auto) 0 % Neutrophils (%) (Auto) 64 42-75 % Lymphocytes (%) (Auto) 20 12-44 % Monocytes (%) (Auto) 13 H 0-12 % Eosinophils (%) (Auto) 3 0-10 % Basophils (%) (Auto) 1 0-10 % Neutrophils # (Auto) 4.6 1.8-7.8 10^3/uL Lymphocytes # (Auto) 1.4 1.0-4.0 10^3/uL Monocytes # (Auto) 0.9 0.0-1.0 10^3/uL Eosinophils # (Auto) 0.2 0.0-0.3 10^3/uL Basophils # (Auto) 0.0 0.0-0.1 10^3/uL Immature Granulocyte # (Auto) 0.0 0.0-0.1 10^3/uL Sodium Level 139 135-145 MMOL/L Potassium Level 3.9 3.6-5.0 MMOL/L Chloride Level 102 98-107 MMOL/L Carbon Dioxide Level 28 21-32 MMOL/L Anion Gap 9 5-14 MMOL/L Blood Urea Nitrogen 23 H 7-18 MG/DL Creatinine 1.92 H 0.60-1.30 MG/DL Estimat Glomerular Filtration Rate 34 BUN/Creatinine Ratio 12 Glucose Level 112 H 70-105 MG/DL Calcium Level 8.3 L 8.5-10.1 MG/DL My Orders Orders - ROGERS BRIGGS MD Lidocaine 2% (Urojet) (Lidocaine 2% (Uro (06/25/23 18:25) Ed Iv/Invasive Line Start (06/25/23 18:32) Cbc With Automated Diff (06/25/23 18:32) Basic Metabolic Panel (06/25/23 18:32) Ua Culture If Indicated (06/25/23 18:32) Catheter(Urinary) Insert & Ass 03,15 (06/25/23 18:32) Lidocaine 2% (Urojet) (Lidocaine 2% (Uro (06/25/23 18:45) Medications Given in ED Vital Signs/I&O 06/25/23 18:12 Temp 36.3 Pulse 121 Resp 12 B/P (MAP) 128/96 (107) Pulse Ox 98 O2 Delivery Nasal Cannula O2 Flow Rate 3.00 Capillary Refill : Progress Note : Time: 19:36 Progress Note Patient seen and evaluated by me. 82-year-old male with acute urinary retention. Evaluation today includes physical exam, CBC, basic metabolic panel, urinalysis. Pertinent physical exam findings well-developed well-nourished obese male who is slightly tachycardic with A-fib in the 1 10-1 15 range. Normal blood pressure, normal oxygenation. He is afebrile. Lungs are clear abdomen is soft and diffusely tender in the lower quadrants. exam is unremarkable. No other physical concerns. Differential diagnosis based on history and physical exam, acute urine retention due to infection, prostate issues Labs independently reviewed and interpreted by me. His CBC is normal, basic metabolic panel reveals chronic kidney disease at his baseline with a BUN of 23 and a creatinine of 1.92. His glucose is 112. His urinalysis is negative for infection/blood. Patient had a Finch catheter placed with approximately 1300 mils of urine returned. He achieved significant relief of his discomfort. His vital signs remain stable heart rate is 105 irregularly irregular blood pressure 149/94. We will leave the catheter in place, no need at this time for antibiotics. We will have him follow-up with his primary care physician, likely will need referral to urology or chronic indwelling Finch. No clinical concerns for need for imaging at this time. Patient is comfortable with the plan of care and appreciative. All questions are sought and answered. [facility] Departure Impression Primary Impression: Acute urinary retention Additional Impression: Chronic kidney disease Qualified Codes: N18.9 - Chronic kidney disease, unspecified Disposition: 01 HOME, SELF-CARE Condition: Improved Departure-Patient Inst. Decision time for Depature: 19:38 Referrals: GAYLE OWUSU DO (PCP/Family) Primary Care Physician Patient Instructions: Urinary Retention Add. Discharge Instructions: Continue with the Catheter until you follow up with your primary care doctor. You will likely need a follow up appointment with a Urologist in the future to further manage this Urinary Retention. If you develop any fever with the catheter in place (over 101) please return to the Emergency Department for re-evaluation. Copy Copies To 1: GAYLE OWUSU KATHRYN M MD Jun 25, 2023 18:15
[2023-06-25] MEDS ORDERED: LIDOCAINE UROJET 2% GEL 10 ML PKG ONE (18:25)
[2023-06-25] MEDS ORDERED: LIDOCAINE UROJET 2% GEL 10 ML PKG TOP ONE (18:45)
[2023-06-25 18:48] LABS: BILIRUBIN,URINE NEGATIVE (NEGATIVE); CLARITY,URINE CLEAR; COLOR,URINE YELLOW; GLUCOSE, URINE (UA) NEGATIVE (NEGATIVE); KETONES,URINE NEGATIVE (NEGATIVE); LEUKOCYTE ESTERASE ,URINE NEGATIVE (NEGATIVE); NITRITE,URINE NEGATIVE (NEGATIVE); PH,URINE 6.5 (5-9); PROTEIN,URINE 2+ (NEGATIVE)
[2023-06-25 18:49] LABS: BACTERIA,URINE NEGATIVE /HPF; RBC,URINE 0-2 /HPF
[2023-06-25 19:05] LABS: BASOPHILS % (AUTO) 1 % (0-10); EOSINOPHILS # (AUTO) 0.2 10^3/uL (0.0-0.3); EOSINOPHILS % (AUTO) 3 % (0-10); HEMATOCRIT 36 % (40-54); HEMOGLOBIN 11.7 g/dL (13.3-17.7); LYMPHOCYTES # (AUTO) 1.4 10^3/uL (1.0-4.0); LYMPHOCYTES % (AUTO) 20 % (12-44); MEAN CORPUSCULAR HEMOGLOBIN 30 pg (25-34); MEAN CORPUSCULAR HGB CONC 32 g/dL (32-36); MEAN CORPUSCULAR VOLUME 93 fL (80-99); MEAN PLATELET VOLUME 9.9 fL (9.0-12.2); MONOCYTES # (AUTO) 0.9 10^3/uL (0.0-1.0); MONOCYTES % (AUTO) 13 % (0-12); NEUTROPHILS # (AUTO) 4.6 10^3/uL (1.8-7.8); NEUTROPHILS % (AUTO) 64 % (42-75); PLATELET COUNT 323 10^3/uL (130-400); WHITE BLOOD COUNT 7.2 10^3/uL (4.3-11.0)
[2023-06-25 19:19] LABS: POTASSIUM 3.9 MMOL/L (3.6-5.0)
[2023-06-25 19:23] LABS: CALCIUM 8.3 MG/DL (8.5-10.1); CREATININE SERUM 1.92 MG/DL (0.60-1.30)
== END 2023-06-25 20:45 | disposition home or self-care (01) ==
LOC: EDUNIT# 18:09 → ER 18:10
DX: R33.9 Retention of urine, unspecified (principal); I12.9 Hypertensive chronic kidney disease with stage 1 through stage 4 chronic kidney disease, or unspecified chronic kidney disease; E11.22 Type 2 diabetes mellitus with diabetic chronic kidney disease; N18.30 Chronic kidney disease, stage 3 unspecified; I48.91 Unspecified atrial fibrillation; Z79.4 Long term (current) use of insulin
CPT/HCPCS: 36415; 51702; 80048; 81000; 85025

== ENCOUNTER 2023-09-24 13:20 | Emergency (ER) | payer MEDICARE ==
[~2023-09-24] VITALS: Ht 175.2 cm; Wt 117.9 kg
[~2023-09-24 13:20] MED LIST changes: -INSU100I48 SC; +INSU100I64 SC
--- NOTE | 2023-09-24 14:04 | ED GU-Male ---
General Chief Complaint: Catheter/Drain/Tube Problems Stated Complaint: CATHETER PROBLEMS Source: patient Exam Limitations: no limitations (ELVIN GAGE APRN) History of Present Illness Date Seen by Provider: Sep 24, 2023 Time Seen by Provider: 13:58 Initial Comments 83-year-old male presents to the ER via EMS with penile pain after Finch catheter insertion. States that he had his Finch catheter changed today. Reports that he has had pain in his penis since the change. Only small amount of urine noted in the Finch bag. Some blood noted in the Finch tubing. Patient uncertain if he was having bleeding from his bladder prior to the Finch catheter session. (ELVIN GAGE APRN) Allergies and Home Medications Allergies Coded Allergies: Sulfa (Sulfonamide Antibiotics) (Unverified Allergy, Unknown, 10/10/19) Patient Home Medication List Home Medication List Reviewed: Yes (ELVIN GAGE APRN) Acetaminophen (Acetaminophen) 325 Mg Tablet, 650 MG PO Q4H PRN for TEMPERATURE Prescribed by: GAYLE OWUSU on 06/23/23 110 Apixaban (Eliquis) 2.5 Mg Tablet, 2.5 MG PO BID Prescribed by: GAYLE OWUSU on 06/23/23 110 Aspirin (Aspirin EC) 81 Mg Tablet.dr, 81 MG PO DAILY Prescribed by: GAYLE OWUSU on 06/23/23 110 Cetirizine HCl (Cetirizine HCl) 10 Mg Tablet, 10 MG PO DAILY Prescribed by: GAYLE OWUSU on 06/23/23 110 Diltiazem HCl (Diltiazem 24Hr ER) 180 Mg Cap.er.24h, 180 MG PO DAILY Prescribed by: GAYLE OWUSU on 06/23/23 110 Docusate Sodium (Docusate Sodium) 100 Mg Capsule, 100 MG PO BID Prescribed by: GAYLE OWUSU on 06/23/23 110 Finasteride (Finasteride) 5 Mg Tablet, 5 MG PO DAILY Prescribed by: GAYLE OWUSU on 06/23/23 110 Fluticasone Propionate (Fluticasone Propionate) 50 Mcg/Actuation [place].susp, 0 SPRAY NS DAILY Prescribed by: GAYLE OWUSU on 06/23/23 110 Furosemide (Furosemide) 40 Mg Tablet, 40 MG PO DAILY Prescribed by: GAYLE OWUSU on 06/23/23 110 Hydralazine HCl (Hydralazine HCl) 50 Mg Tablet, 50 MG PO 0000,0300,1600 Prescribed by: GAYLE OWUSU on 06/23/23 110 Hydralazine HCl (Hydralazine HCl) 25 Mg Tablet, 50 MG PO Q4H PRN for sbp>158 Prescribed by: GAYLE OWUSU on 06/23/231105 Insulin Detemir (Levemir Flexpen) 100 Unit/Ml (3 Ml) Insuln.pen, 10 UNIT SQ BID Prescribed by: GAYLE OWUSU on 06/23/23 110 Insulin Lispro (Insulin Lispro Jared Kwikpen) 100 Unit/Ml Ins.pen.hf, 3 UNITS SC AC Prescribed by: GAYLE OWUSU on 06/23/231105 Isosorbide Mononitrate (Isosorbide Mononitrate ER) 60 Mg Tab, 120 MG PO DAILY Prescribed by: GAYLE OWUSU on 06/23/23 110 Metoprolol Tartrate (Metoprolol Tartrate) 25 Mg Tablet, 25 MG PO BID Prescribed by: GAYLE OWUSU on 06/23/23 110 Montelukast Sodium (Montelukast Sodium) 10 Mg Tablet, 10 MG PO HS Prescribed by: GAYLE OWUSU on 06/23/231105 Multivitamin/Iron/Folic Acid (Tab-A-Oleksandr Multivit with Iron) 18 Mg Iron-400 Mcg Tablet, 1 EA PO DAILY@0700 Prescribed by: GAYLE OWUSU on 06/23/23 110 Omeprazole (Omeprazole) 40 Mg Capsule.dr, 30 MG PO DAILY Prescribed by: GAYLE OWUSU on 06/23/23 110 Sennosides/Docusate Sodium (Stimulant Laxative Plus Tablet) 8.6 Mg-50 Mg Tablet, 17.2 MG PO DAILY Prescribed by: GAYLE OWUSU on 06/23/23 110 Tamsulosin HCl (Flomax) 0.4 Mg Cap, 0.8 MG PO DAILY Prescribed by: GAYLE OWUSU on 06/23/23 110 Trazodone HCl (Trazodone HCl) 50 Mg Tablet, 50 MG PO HS Prescribed by: GAYLE OWUSU on 06/23/23 1106 Vit C/E/Zn/Coppr/Lutein/Zeaxan (Preservision Areds 2 Softgel) 250MG-90MG Caps ule, 1 EACH PO DAILY Prescribed by: GAYLE OWUSU on 06/23/23 110 Review of Systems Review of Systems Constitutional: see HPI (ELVIN GAGE APRN) Past Rfionac-Ktnebm-Quefnd Hx Immunizations Up To Date Tetanus Booster (TDap): Less than 5yrs First/Initial COVID19 Vaccinat: RECEIVED, UNK WHEN Second COVID19 Vaccination Zoltan: RECEIVED, UNK WHEN Third COVID19 Vaccination Date: RECEIVED, UNK WHEN (ELVIN GAGE APRN) Seasonal Allergies Seasonal Allergies: No (ELVIN GAGE APRN) Past Medical History Surgery/Hospitalization HX: diverticulitis, htn, bph, macular degeneration, iddm Surgeries: Yes (CARDIAC CATH --NO INTERVENTION) Cardiac Respiratory: Yes (Pneumonia patient states "when i was 1") Pneumonia Cardiac: Yes (CARDIAC CATH-NO INTERVENTION;NSTEMI 10/2019;[facility] RIGHT LEG EDEMA- US NEGATIVE) Atrial Fibrillation Neurological: Yes (PERIPHERAL NEUROPATHY) Neuropathy Genitourinary: Yes (Chronic kidney disease stage 3 ; GFR TYPICALLY IN 30'S) Benign Prostatic Hyperpl, Bladder Infection, Renal Failure Gastrointestinal: Yes (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;DIVERTICULITIS-NO SURGERY) Diverticulosis, Gall Bladder Disease Musculoskeletal: No Endocrine: Yes (SELF MEDICATES WITH HIS INSULIN; OBESITY) Diabetes, Insulin dep HEENT: No (patient wears glasses ) Loss of Vision: Denies Hearing Impairment: Denies Cancer: No Psychosocial: No Integumentary: No Blood Disorders: No (ELVIN GAGE APRN) Family Medical History Cardiovascular disease 19 FATHER Hypertension 19 FATHER No Pertinent Family Hx, CAD Over 55 Years Old, Hypertension PAST SURGICAL HISTORY: -CARDIAC CATH 11/09/19--DIFFUSELY CALCIFIED CORONARY ARTERIES, SMALL VESSEL DISEASE, NO INTERVENTION - (ELVIN GAGE APRN) Physical Exam Vital Signs Vital Signs - First Documented 09/24/23 13:20 Temp 36.4 Pulse 74 Resp 18 B/P (MAP) 97/63 (74) Pulse Ox 95 O2 Delivery Room Air (ARAMIS CHAMORRO MD) Vital Signs Capillary Refill : (ELVIN GAGE APRN) Height, Weight, BMI Height: 5'7.00" Weight: 200lbs. oz. 90.964089go; 35.23 BMI Method:Estimated General Appearance: WD/WN, no apparent distress Neck: supple, normal inspection Cardiovascular: regular rate, rhythm Respiratory: lungs clear, normal breath sounds, no respiratory distress, no accessory muscle use Male: normal genitalia Extremities: normal range of motion, normal inspection Neurologic/Psychiatric: alert, normal mood/affect Skin: normal color, warm/dry (ELVIN GAGE APRN) Progress/Results/Core Measures Suspected Sepsis SIRS Temperature: Pulse: Respiratory Rate: Blood Pressure / Mean: (ELVIN GAGE APRN) Results/Orders Vital Signs/I&O 09/24/23 09/24/23 13:20 14:53 Temp 36.4 Pulse 74 74 Resp 18 18 B/P (MAP) 97/63 (74) 113/76 Pulse Ox 95 94 O2 Delivery Room Air Room Air (ARAMIS CHAMORRO MD) Vital Signs/I&O Capillary Refill : (ELVIN GAGE APRN) Progress Note : Progress Note Patient seen and evaluated, resting comfortably in bed, no acute distress. Balloon from Finch catheter was drained, Finch was advanced, and balloon refilled. Patient at first reported some improvement in pain after this, but then later stated that the pain seemed to be the same. Will perform a bladder scan and monitor for urine output. I believe that balloon may have been aorta up within the penis because once it was advanced and reinflated, it was not able to be pulled out as far as previously. Bladder scan revealed no urine in bladder. Nursing staff flushed the catheter with 50 cc of normal saline and had 60 cc output. The catheter seems to be working well. Patient likely had a traumatic insert and is still having residual pain due to this. Finch switched to a leg bag per request by patient. Will proceed with discharge at this time. Patient is stable for discharge. Will provide patient with Dr. Doherty's, urology, phone number. Discharge instructions and return precautions provided. (ELVIN GAGE APRN) Departure Impression Primary Impression: Finch catheter problem Disposition: 01 HOME, SELF-CARE Condition: Stable Departure-Patient Inst. Decision time for Depature: 14:38 (ELVIN GAGE APRN) Referrals: Alejandro DOHERTY MD, MINDI DO (PCP/Family) Primary Care Physician Patient Instructions: Finch Catheter Add. Discharge Instructions: You may continue to have some pain for the next couple of days. You may take Tylenol as needed for pain. Follow-up with Dr. Doherty, urology. Return for no urine output in 6 hours, severe abdominal pain, or any other new, concerning, or worsening symptoms. All discharge instructions reviewed with patient and/or family. Voiced und erstanding. ATTENDING PHYSICIAN NOTE: I was physically present as attending physician in the emergency department during the care of this patient, but I was not directly involved in the decision making or delivery of care for this patient. (ARAMIS CHAMORRO MD) ELVIN GAGE APRN Sep 24, 2023 14:04 ARAMIS CHAMORRO MD Sep 25, 2023 06:10
[2023-09-24 14:53] VITALS: BP 113/76
== END 2023-09-24 14:53 | disposition home or self-care (01) ==
LOC: EDUNIT# 13:20 → ER 13:21
DX: T83.091A Other mechanical complication of indwelling urethral catheter, initial encounter (principal); E11.9 Type 2 diabetes mellitus without complications; E66.9 Obesity, unspecified; Z68.35 Body mass index [BMI] 35.0-35.9, adult; Z79.4 Long term (current) use of insulin
CPT/HCPCS: 99283

== ENCOUNTER 2023-09-26 16:18 | Emergency (ER) | payer MEDICARE ==
--- NOTE | 2023-09-26 16:26 | ED GU-Male ---
General Chief Complaint: - Reproductive Stated Complaint: CATHETER PROBLEMS Source: patient Exam Limitations: no limitations History of Present Illness Date Seen by Provider: Sep 26, 2023 Time Seen by Provider: 16:25 Initial Comments Patient is an 83-year-old male who presents to the emergency room with a chief complaint of urinary catheter pain. He states that his home health nurse came on Friday of this last week 2 days ago and exchanged his catheter. He states since that time it has been painful. He cannot really localize the area of pain. He was in the emergency room yesterday with similar complaints, the catheter was flushed and drained appropriately and he was sent home. He continues to complain of pain. He denies fevers, chills, nausea vomiting. The catheter is draining, about 250 cc of orange urine in the leg bag. No lesions noted on the penis or at the meatus. No active bleeding is noted. He is taking Aleve for the pain. Vital signs are stable. Timing/Duration: other (2 days) Severity/Quality: moderate, sharp Location: other (penile) Radiation: none Activities at Onset: none Sexual [place] History: not active Associated Symptoms: denies symptoms Allergies and Home Medications Allergies Coded Allergies: Sulfa (Sulfonamide Antibiotics) (Unverified Allergy, Unknown, 10/10/19) Patient Home Medication List Home Medication List Reviewed: Yes Acetaminophen (Acetaminophen) 325 Mg Tablet, 650 MG PO Q4H PRN for TEMPERATURE Prescribed by: GAYLE OWUSU on 06/23/23 110 Apixaban (Eliquis) 2.5 Mg Tablet, 2.5 MG PO BID Prescribed by: GAYLE OWUSU on 06/23/23 110 Aspirin (Aspirin EC) 81 Mg Tablet.dr, 81 MG PO DAILY Prescribed by: GAYLE OWUSU on 06/23/23 110 Cetirizine HCl (Cetirizine HCl) 10 Mg Tablet, 10 MG PO DAILY Prescribed by: GAYLE OWUSU on 06/23/23 110 Diltiazem HCl (Diltiazem 24Hr ER) 180 Mg Cap.er.24h, 180 MG PO DAILY Prescribed by: GAYLE OWUSU on 06/23/23 110 Docusate Sodium (Docusate Sodium) 100 Mg Capsule, 100 MG PO BID Prescribed by: GAYLE OWUSU on 06/23/23 110 Finasteride (Finasteride) 5 Mg Tablet, 5 MG PO DAILY Prescribed by: GAYLE OWUSU on 06/23/231105 Fluticasone Propionate (Fluticasone Propionate) 50 Mcg/Actuation [place].susp, 0 SPRAY NS DAILY Prescribed by: GAYLE OWUSU on 06/23/231105 Furosemide (Furosemide) 40 Mg Tablet, 40 MG PO DAILY Prescribed by: GAYLE OWUSU on 06/23/231105 Hydralazine HCl (Hydralazine HCl) 50 Mg Tablet, 50 MG PO 0000,0300,1600 Prescribed by: GAYLE OWUSU on 06/23/231105 Hydralazine HCl (Hydralazine HCl) 25 Mg Tablet, 50 MG PO Q4H PRN for sbp>158 Prescribed by: GAYLE OWUSU on 06/23/231105 Insulin Detemir (Levemir Flexpen) 100 Unit/Ml (3 Ml) Insuln.pen, 10 UNIT SQ BID Prescribed by: GAYLE OWUSU on 06/23/231105 Insulin Lispro (Insulin Lispro Jared Kwikpen) 100 Unit/Ml Ins.pen.hf, 3 UNITS SC AC Prescribed by: GAYLE OWUSU on 06/23/231105 Isosorbide Mononitrate (Isosorbide Mononitrate ER) 60 Mg Tab, 120 MG PO DAILY Prescribed by: GAYLE OWUSU on 06/23/231105 Metoprolol Tartrate (Metoprolol Tartrate) 25 Mg Tablet, 25 MG PO BID Prescribed by: GAYLE OWUSU on 06/23/231105 Montelukast Sodium (Montelukast Sodium) 10 Mg Tablet, 10 MG PO HS Prescribed by: GAYLE OWUSU on 06/23/231105 Multivitamin/Iron/Folic Acid (Tab-A-Oleksandr Multivit with Iron) 18 Mg Iron-400 Mcg Tablet, 1 EA PO DAILY@0700 Prescribed by: GAYLE OWUSU on 06/23/23 110 Omeprazole (Omeprazole) 40 Mg Capsule.dr, 30 MG PO DAILY Prescribed by: GAYLE OWUSU on 06/23/23 110 Sennosides/Docusate Sodium (Stimulant Laxative Plus Tablet) 8.6 Mg-50 Mg Tablet, 17.2 MG PO DAILY Prescribed by: GAYLE OWUSU on 06/23/231105 Tamsulosin HCl (Flomax) 0.4 Mg Cap, 0.8 MG PO DAILY Prescribed by: GAYLE OWUSU on 06/23/231105 Trazodone HCl (Trazodone HCl) 50 Mg Tablet, 50 MG PO HS Prescribed by: GAYLE OWUSU on 06/23/231105 Vit C/E/Zn/Coppr/Lutein/Zeaxan (Preservision Areds 2 Softgel) 250MG-90MG Capsule, 1 EACH PO DAILY Prescribed by: GAYLE OWUSU on 06/23/231105 Review of Systems Review of Systems Constitutional: see HPI EENTM: no symptoms reported Gastrointestinal: no symptoms reported Genitourinary: other (penile pain) Past Xuuwfwp-Tkebue-Hakpdo Hx Immunizations Up To Date Tetanus Booster (TDap): Less than 5yrs First/Initial COVID19 Vaccinat: VACCINATED Second COVID19 Vaccination Zoltan: RECEIVED, UNK WHEN Third COVID19 Vaccination Date: RECEIVED, UNK WHEN Seasonal Allergies Seasonal Allergies: No Past Medical History Surgery/Hospitalization HX: diverticulitis, htn, bph, macular degeneration, iddm Surgeries: Yes (CARDIAC CATH --NO INTERVENTION) Cardiac Respiratory: Yes (Pneumonia patient states "when i was 1") Pneumonia Cardiac: Yes (CARDIAC CATH-NO INTERVENTION;NSTEMI 10/2019;[facility] RIGHT LEG EDEMA- US NEGATIVE) Atrial Fibrillation Neurological: Yes (PERIPHERAL NEUROPATHY) Neuropathy Genitourinary: Yes (Chronic kidney disease stage 3 ; GFR TYPICALLY IN 30'S) Benign Prostatic Hyperpl, Bladder Infection, Renal Failure Gastrointestinal: Yes (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;DIVERTICULITIS-NO SURGERY) Diverticulosis, Gall Bladder Disease Musculoskeletal: No Endocrine: Yes (SELF MEDICATES WITH HIS INSULIN; OBESITY) Diabetes, Insulin dep HEENT: No (patient wears glasses ) Loss of Vision: Denies Hearing Impairment: Denies Cancer: No Psychosocial: No Integumentary: No Blood Disorders: No Family Medical History Cardiovascular disease 19 FATHER Hypertension 19 FATHER No Pertinent Family Hx, CAD Over 55 Years Old, Hypertension PAST SURGICAL HISTORY: -CARDIAC CATH 11/09/19--DIFFUSELY CALCIFIED CORONARY ARTERIES, SMALL VESSEL DISEASE, NO INTERVENTION - Physical Exam Vital Signs Vital Signs - First Documented 09/26/23 16:20 Temp 35.8 Pulse 79 Resp 20 B/P (MAP) 129/72 (91) Pulse Ox 95 O2 Delivery Room Air Capillary Refill : Height, Weight, BMI Height: 5'7.00" Weight: 200lbs. oz. [id number]; 38.00 BMI Method:Estimated General Appearance: WD/WN, obese, other (dirty, disheveled, unkempt; foul smelling) Cardiovascular: other (3+ edema bilateral LE) Respiratory: no respiratory distress, no accessory muscle use Gastrointestinal: other (obese) Male: other (circumcised; no meatal blood/lesions. catheter is draining) Neurologic/Psychiatric: alert, normal mood/affect Skin: normal color, warm/dry Progress/Results/Core Measures Suspected Sepsis SIRS Temperature: Pulse: Respiratory Rate: Blood Pressure / Mean: Results/Orders Lab Results Laboratory Tests Test 09/26/23 17:40 Range/Units Urine Color YELLOW Urine Clarity TURBID Urine pH 5.0 5-9 Urine Specific [place] 1.020 1.016-1.022 Urine Protein 2+ H NEGATIVE Urine Glucose (UA) NEGATIVE NEGATIVE Urine Ketones TRACE H NEGATIVE Urine Nitrite NEGATIVE NEGATIVE Urine Bilirubin NEGATIVE NEGATIVE Urine Urobilinogen 0.2 < = 1.0 MG/DL Urine Leukocyte Esterase 1+ H NEGATIVE Urine RBC (Auto) 3+ H NEGATIVE Urine RBC TNTC H /HPF Urine WBC 25-50 H /HPF Urine Squamous Epithelial Cells 10-25 H /HPF Urine Crystals NONE /LPF Urine Bacteria MODERATE H /HPF Urine Casts NONE /LPF Urine Mucus NEGATIVE /LPF Urine Culture Indicated YES My Orders Orders - ROGERS BRIGGS MD Ua Culture If Indicated (09/26/23 16:41) Lidocaine 2% (Urojet) (Lidocaine 2% (Uro (09/26/23 17:00) Urine Culture (09/26/23 17:40) Medications Given in ED Current Medications Medications Dose Ordered Sig/Laya Route Start Time Stop Time Status Last Admin Dose Admin Lidocaine HCl 10 ml ONCE ONCE TOP 09/26/23 17:00 09/26/23 17:02 DC 09/26/23 17:16 10 ML Vital Signs/I&O 09/26/23 16:20 Temp 35.8 Pulse 79 Resp 20 B/P (MAP) 129/72 (91) Pulse Ox 95 O2 Delivery Room Air Capillary Refill : Progress Note : Time: 18:01 Progress Note Patient seen and evaluated by me, evaluation today includes history and physical exam with UA/culture. Pertinent physical exam findings morbidly obese elderly male who appears chronically ill, stable vital signs. Significant lower extremity edema, pitting, Finch catheter in place without any meatal blood or lesions. Draining dark orange urine. Patient is quite disheveled, unkempt and dirty, foul-smelling. Abdominal exam is benign. Differential diagnosis includes Finch catheter irritation, urinary tract infection Labs independently reviewed and interpreted by me -his UA shows trace ketones with too numerous to count red blood cells, 10-25 white blood cells and moderate bacteria. Will allow the urine to culture as likely the white blood cells are related to the amount of hematuria in his urine. Patient had his existing Finch pulled and replaced. Is much more comfortable. Will have him follow up with his PCP and refer to Urology - Dr Thornton Departure Impression Primary Impression: Finch catheter problem Qualified Codes: T83.9XXA - Unspecified complication of genitourinary prosthetic device, implant and graft, initial encounter Additional Impression: Hematuria Qualified Codes: R31.9 - Hematuria, unspecified Disposition: HOME, SELF-CARE Condition: Improved Departure-Patient Inst. Decision time for Depature: 18:04 Referrals: GAYLE OWUSU DO (PCP/Family) Primary Care Physician Patient Instructions: How to Prevent Catheter Associated Urinary Tract Infections Add. Discharge Instructions: Please follow up with a Urologist - I have given you contact information for Dr Thornton. Please call Friday. Keep the catheter clean. Return to the Emergency Department for any new, concerning or emergent complaints. ROGERS BRIGGS MD Sep 26, 2023 16:25
[2023-09-26] MEDS ORDERED: LIDOCAINE UROJET 2% GEL 10 ML PKG TOP ONE (17:00)
[2023-09-26 17:56] LABS: CLARITY,URINE TURBID; COLOR,URINE YELLOW; PROTEIN,URINE 2+ (NEGATIVE)
[2023-09-26 17:57] LABS: BACTERIA,URINE MODERATE /HPF; BILIRUBIN,URINE NEGATIVE (NEGATIVE); GLUCOSE, URINE (UA) NEGATIVE (NEGATIVE); KETONES,URINE TRACE (NEGATIVE); LEUKOCYTE ESTERASE ,URINE 1+ (NEGATIVE); NITRITE,URINE NEGATIVE (NEGATIVE); RBC,URINE TNTC /HPF; WBC,URINE 25-50 /HPF
[2023-09-26 19:05] VITALS: BP 126/64
== END 2023-09-26 19:06 | disposition home or self-care (01) ==
LOC: EDUNIT# 16:18 → ER 16:19
DX: T83.84XA Pain due to genitourinary prosthetic devices, implants and grafts, initial encounter (principal); R31.9 Hematuria, unspecified; E11.9 Type 2 diabetes mellitus without complications; Z79.4 Long term (current) use of insulin; Y73.8 Miscellaneous gastroenterology and urology devices associated with adverse incidents, not elsewhere classified
CPT/HCPCS: 51702; 81000; 87077; 87088; 87186